=== PATIENT | female | born 1985 | race Caucasian/White ===

== ENCOUNTER 2025-01-17 14:31 | Outpatient (OUT) | payer OTHER, SELFPAY ==
--- NOTE | 2025-01-17 14:39 | US_ITS ---
The [address] [address] Patient Name: TIN POST MRN: [id number] date: 1985 Sex: F Assigned Patient Location: Current Patient Location: US Accession/Order Number: [id number] Exam Date: 01/17/2025 15:54 Report Date: 01/17/2025 16:09 At the request of: LEONEL RODRIGUEZ APRN, CNM Procedure: US OB transvaginal OB ultrasound. Reason for exam:Missed . Comparison:None. Technique: Transvaginal imaging of the gravid uterus was obtained. Findings: There appears to be a gestational sac seen within the endometrial canal measuring 6 weeks 6 days by MSD. There appears to be echogenic products within the presumed gestational sac without definitive pole or heart rate noted. No free fluid is noted. Right ovary measures 4.8 x 3.6 x 2.8 cm. The left ovary measures 6.0 x 3.5 x 3.0 cm. There appears to the carpals luteum cyst involving both ovaries. US/US OB transvaginal Impression: There appears to be a gestational sac within the endometrial canal measuring 6 weeks 6 days by anesthesia with echogenic products present without definitive pole or heart rate noted. Finding may relate to the history. Correlation with beta hCG trend and repeat ultrasound may be necessary to confirm viability. Impression dictated by: Jose A Orona Jr., D.O. 01/17/2025 4:09 PM Dictation Location: [place] [address] Electronically authenticated by: [id number] Y Date: 01/17/2025 16:09
== END 2025-01-17 14:32 | disposition home or self-care (01) ==
LOC: US 14:34
PROVIDERS: PCP Family Medicine; Visit Provider Midwife
DX: O02.1 Missed abortion (principal)
CPT/HCPCS: 76817

== ENCOUNTER 2025-01-23 14:30 | Outpatient (OUT) | payer OTHER, SELFPAY ==
--- NOTE | 2025-01-23 14:42 | US_ITS ---
The [address] [address] Patient Name: TIN POST MRN: [id number] date: 1985 Sex: F Assigned Patient Location: Current Patient Location: US Accession/Order Number: [id number] Exam Date: 01/23/2025 16:08 Report Date: 01/23/2025 16:13 At the request of: LEONEL RODRIGUEZ APRN, CNM Procedure: US OB transvaginal OB ultrasound. Reason for exam:Spontaneous . Comparison:Ultrasound 01/17/2025 Technique: Transvaginal imaging of the uterus and ovaries were obtained. Findings: A gestational sac is noted within the endometrial canal with a potential pole noted measuring 6 weeks 4 days by CRL. No heart rate was identified. CRL measures 7.2 mm. No free fluid is seen. Right ovary measures 3.4 x 2.6 x 2.6 cm with a corpus luteum noted. Left ovary measures 5.1 x 3.7 x 3.2 cm with a involuting corpus luteum/hemorrhagic cyst present. US/US OB transvaginal Impression: A gestational sac is noted within the endometrial canal with potential pole measuring 6 weeks 4 days by CRL, 7.2 mm. No heart rate was identified. Findings are diagnostic of failed early . Correlation with beta-hCG trend is recommended. Impression dictated by: Jose A Orona Jr., D.O. 01/23/2025 4:13 PM Dictation Location: [place] [address] Electronically authenticated by: [id number] Y Date: 01/23/2025 16:13
[2025-01-23 15:58] LABS: HCG Quantitative 6357 mIU/mL
== END 2025-01-23 14:31 | disposition home or self-care (01) ==
LOC: US 14:32
PROVIDERS: PCP Family Medicine; Visit Provider Midwife
DX: O03.9 Complete or unspecified spontaneous abortion without complication (principal)
CPT/HCPCS: 36415; 76817; 84702

== ENCOUNTER 2025-01-24 06:23 | Day surgery (SDC) | payer OTHER, SELFPAY ==
[2025-01-24] VITALS (16 sets, daily range): BP systolic 117–147; BP diastolic 70–98; PULSE 66–84; TEMP 35.8–36.1; O2SAT 91–96; BMI 44.8; BMI 6289.9
--- OUTSIDE RECORDS SUMMARY | 2025-01-24 06:27 | XMS_ITS | CCD ---
Author Organization [facility] Care Team Providers Care Job Lithographer Name Role Phone AMMY, DR HERNANDEZ Primary Care Unavailable MISC, DR MCCLELLAN Admitting Unavailable MISC, DR MCCLELLAN Attending Unavailable MISC, DR MCCLELLAN Consulting Unavailable DEFRANCE, DR HERNANDEZ Primary Care Unavailable ZURDO, DR KEVON Jeter Attending Unavailable ZURDO, DR KEVON Jeter Consulting Unavailable ZURDO, DR KEVON Jeter Admitting Unavailable KOURTNEY, SAMEER Consulting Unavailable MISC, DR MCCLELLAN Primary Care Unavailable MISC, DR MCCLELLAN Admitting Unavailable MISC, DR MCCLELLAN Attending Unavailable MISC, DR MCCLELLAN Consulting Unavailable MISC, DR MCCLELLAN Primary Care Unavailable MISC, DR MCCLELLAN Admitting Unavailable MISC, DR MCCLELLAN Attending Unavailable MISC, DR MCCLELLAN Consulting Unavailable MISC, DR MCCLELLAN Primary Care Unavailable SATURNINO VALDEZ Admitting Unavailable SATURNINO VALDEZ Attending Unavailable SATURNINO VALDEZ Consulting Unavailable Saturnino Valdez Unavailable Saturnino Valdez Unavailable Saturnino Valdez Unavailable Saturnino Valdez Unavailable MD David Mckeon Primary Care Provider DO Charly Matute Emergency Provider David Mckeon Primary Care Unavailable Charly Matute Attending Unavailable Charly Matute Admitting Unavailable David Mckeon MD Primary Care Provider DMITRY MENCHACA Attending UnavailKOBI Hough Attending Unavailable DMITRY MENCHACA Attending UnavailDMITRY Beltran Admitting UnavailKOBI Hough Attending Unavailable DMITRY MENCHACA Attending UnavailDavid Barros MD Primary Care Provider [phone] MICHEL JOSEPH Referring Unavailable DAVID MCKEON Primary Care Unavailable DEFRANCE, DAVID Herbert Referring Unavailable DEFRANCE, DAVID Herbert Primary Care Unavailable MILLIE ELLIS Referring Unavailable DEFRANCE, DAVID Herbert Primary Care Unavailable VEE ESQUIVEL Attending Unavailable DEFRANCE, DAVID Herbert Referring Unavailable DEFRANCE, DAVID Herbert Primary Care Unavailable DEFRANCE, DAVID Herbert Attending Unavailable DEFRANCE, DAVID Herbert Referring Unavailable DEFRANCE, DAVID Herbert Primary Care Unavailable DEFRANCE, DAVID Herbert Attending Unavailable DEFRANCE, DAVID Herbert Referring Unavailable DEFRANCE, DAVID Herbert Primary Care Unavailable DEFRANCE, DAVID Herbert Attending Unavailable DEFRANCE, DAVID Herbert Referring Unavailable DEFRANCE, DAVID Herbert Primary Care Unavailable RHONDA, MILLIE M Attending Unavailable DEFRANCE, DAVID Herbert Referring Unavailable DEFRANCE, DAVID Herbert Primary Care Unavailable ABIDA DUCKWORTH Attending Unavailable DEFRANCE, DAVID Herbert Referring Unavailable DEFRANCE, DAVID Herbert Primary Care Unavailable Defrance David REGALADO Primary Care Provider MINDZORA, MIGUEL Referring Unavailable MICHEL JOSEPH Referring Unavailable MICHEL JOSEPH Referring Unavailable MICHEL JOSEPH Referring Unavailable MICHEL JOSEPH Referring Unavailable MINDZORA, MIGUEL Referring Unavailable MINDZORA, MIGUEL Referring Unavailable MINDZORA, MIGUEL Referring Unavailable MINDZORA, MIGUEL Referring Unavailable MICHEL JOSEPH Referring Unavailable REHMER, ODALIS Referring Unavailable MICHEL JOSEPH Referring Unavailable MICHEL JOSEPH Referring Unavailable MICHEL JOSEPH Referring Unavailable MICHEL JOSEPH Referring Unavailable ATTARAN, RADHA Referring Unavailable ATTARAN, RADHA Referring Unavailable DUDZIAK, LEONEL Referring Unavailable MINDZORA, MIGUEL Referring Unavailable DUDZIAK, LEONEL Referring Unavailable MINDZORA, MIGUEL Referring Unavailable MICHEL JOSEPH Referring Unavailable MINDZORA, MIGUEL Referring Unavailable MINDZORA, MIGUEL Referring Unavailable MINDZORA, MIGUEL Referring Unavailable JOSEPH MICHEL Referring Unavailable DUDZIAK, LEONEL Referring Unavailable MINDZORA, MIGUEL Referring Unavailable REHMER, ODALIS Attending Unavailable SHIRLEY JOSEPHTT Referring Unavailable DUDZIAK, LEONEL Referring Unavailable SHIRLEY JOSEPHTT Referring Unavailable MICHEL JOSEPH Attending Unavailable MICHEL JOSEPH Attending Unavailable MINDZORA, MIGUEL Referring Unavailable BRZOZOPEPE HOUSTON Attending Unavailable DUDZIAK, LEONEL Referring Unavailable MINDZORA, MIGUEL Referring Unavailable JOSEPH, MICHEL Referring Unavailable JOSEPH, MICHEL Attending Unavailable JOSEPH, MICHEL Referring Unavailable MINDZORA, MIGUEL Attending Unavailable SMOLEN, KOBI Referring Unavailable SMOLEN, KOBI Referring Unavailable REHMER, ODALIS Attending Unavailable MINDZORA, MIGUEL Referring Unavailable REHMER, ODALIS Attending Unavailable MINDZORA, MIGUEL Referring Unavailable JOSEPH, MICHEL Attending Unavailable MINDZORA, MIGUEL Referring Unavailable ATTARAN, RADHA Attending Unavailable MINDZORA, MIGUEL Referring Unavailable ATTARAN, RADHA Attending Unavailable JOSEPH, MICHEL Referring Unavailable JOSEPH, MICHEL Referring Unavailable JOSEPH, MICHEL Referring Unavailable JOSEPH, MICHEL Referring Unavailable ATTARAN, RADHA Attending Unavailable MINDZORA, MIGUEL Referring Unavailable OMARI, TIFFANY Attending Unavailable JOSEPH, MICHEL Referring Unavailable REHMER, ODALIS Attending Unavailable JOSEPH, MICHEL Referring Unavailable JOSEPH, MICHEL Attending Unavailable JOSEPH, MICHEL Referring Unavailable SMOLEN, KOBI Attending Unavailable SMOLEN, KOBI Referring Unavailable SMOLEN, KOBI Referring Unavailable JOSEPH, MICHEL Referring Unavailable DUDZIAK, LEONEL Referring Unavailable BRZOZOWSKI, PEPE Referring Unavailable BRZOZOWSKI, PEPE Attending Unavailable JOSEPH, MICHEL Attending Unavailable SELF Referring Unavailable JOSEPH, MICHEL Referring Unavailable FLORO, LEONEL L Attending Unavailable Allergies Allergy Classification Reported Allergen(s) Allergy Type Date of Onset Reaction(s) Facility Penicillins (antibiotic) (4 sources) Amoxicillin Drug Allergy 10-15-[address] [facility] Work Phone: (6 sources) Amoxicillin; Translations: [AMOXICILLIN] Drug Allergy 12-29-2013 [facility] Repository (18 sources) Penicillins; Translations: [PENICILLINS] Drug allergy (disorder) 12-29-2013 [facility] Repository (1 source) Penicillins Drug Allergy 10-15-[address] [facility] (20 sources) Penicillins Drug Allergy 08-27-[address] [facility] (20 sources) Amoxicillin Drug Allergy 05-15-[address] [facility] (1 source) Penicillins Drug allergy (disorder) 09-30-2023 [facility] Repository (6 sources) Penicillin G Drug Allergy 10-16-2023 [facility] (6 sources) Penicillins Drug Allergy 10-15-2020 [facility] Medications Current Medications Medication Drug Class(es) Dates Sig (Normalized) Sig (Original) alpha-tocopherol acetate 30 unt / ascorbic acid 100 mg / beta carotene 1000 unt / calcium carbonate 200 mg / calcium pantothenate 7 mg / cholecalciferol 400 unt / docusate sodium 25 mg / ferrous fumarate 29 mg / folic acid 1 mg / niacinamide 15 mg / pyridoxine hydrochloride 20 mg / riboflavin 3 mg / thiamine 3 mg / vitamin b12 0.012 mg / zinc oxide 20 mg oral tablet (2 sources) Vitamin B12, Vitamin D, Vitamin C End: 07-06-2024 PNV 119-iron fum-folic acid ( 19) 29 mg iron- 1 mg tablet Take by mouth. 07/06/2024 Discontinued (Alternate therapy) azithromycin 250 mg oral tablet (1 source) Macrolide Antimicrobial Start: 07-06-2024 End: 07-11-2024 azithromycin (ZITHROMAX) 250 mg tablet Take 2 tablets the first day, then 1 tablet daily for 4 days. 6 tablet 07/06/2024 07/11/2024 Active 12 hr buPROPion hydrochloride 150 mg extended release oral tablet (20 sources) Aminoketone Start: 11-27-2022 End: 11-04-2023 take 1 tablet by mouth every twelve hours in the morning, then take 1 tablet by mouth at bedtime buPROPion SR (WELLBUTRIN SR) 150 mg 12 hr tablet Take 1 tablet (150 mg total) by mouth in the morning and 1 tablet (150 mg total) before bedtime. 180 tablet 1 11/27/2022 11/04/2023 Discontinued End: 12-12-2024 take 150 mg by mouth once daily bupropion HCl (BUPROBAN ORAL) Take 150 mg by mouth once daily. 12/12/2024 Discontinued (Course of therapy completed) bupropion HCl (B UPROBAN ORAL) Take by mouth. 0 Active Comment on above: Take by mouth. Take 150 mg by mouth once daily. cephalexin 500 mg oral capsule (6 sources) Cephalosporin Antibacterial Start: 5 End: take 2 capsules by mouth in the morning, then take 2 capsules by mouth at bedtime CEPHalexin (KEFLEX) 500 mg capsule Take 2 capsules (1,000 mg total) by mouth in the morning and 2 capsules (1,000 mg total) before bedtime. Do all this for 10 days. 40 capsule 11/08/2024 11/18/2024 Active Start: 10-01-2023 End: 11-25-2024 take 1 tablet by mouth four times daily Cephalexin 250 mg tablet Discontinued 250 MG PO Four times daily 10 04October 01, 2023 1:00am November 25, 2024 4:55pm End: 12-06-2024 take 1 capsule by mouth in the morning, then take 1 capsule by mouth at bedtime CEPHalexin (KEFLEX) 500 mg capsule Take 1 capsule (500 mg total) by mouth in the morning and 1 capsule (500 mg total) before bedtime. 12/06/2024 Discontinued (Therapy completed) cetirizine hydrochloride 10 mg oral tablet (2 sources) Histamine-1 Receptor Antagonist Start: 10-17-2019 End: 11-04-2023 take 1 tablet by mouth once daily cetirizine (ZyrTEC) 10 mg tablet Take 1 tablet (10 mg total) by mouth daily. 30 tablet 2 10/17/2019 11/04/2023 Discontinued chorionic gonadotropin 34223 unt/ml injectable solution (20 sources) Gonadotropin Start: 11-14-2024 chorionic gonadotropin (PREGNYL) 10,000 unit solr Indications: Female infertility 10,000 Units once daily. 10,000 Units as directed. Inject 10,000 units for HCG trigger 1 Each 1 11/14/2024 Active Start: 03-09-2024 End: 11-11-2024 chorionic gonadotropin (PREG NYL) 10,000 unit solr Indications: Female infertility 10,000 Units once daily. 10,000 Units as directed. Inject 10,000 units for HCG trigger 1 Each 1 09/09/2024 11/11/2024 Discontinued Start: 10-27-2022 End: 10-27-2022 Choriogonadotropin Ila,HumR ec (OVIDREL) 250 mcg/0.5 mL syrg Indications: Disorder of ovulation Inject 250 mcg subcutaneously one time only for 1 dose. 0.5 mL 3 10/27/2022 10/27/2022 Active Comment on above: Inject 250 mcg subcu taneously one time only for 1 dose. Cinnamon Bark (2 sources) End: 11-04-2023 cinnamon bark (CINNAMON ORAL) Take by mouth daily. 0 11/04/2023 Discontinued (Alternate therapy) cinnamon bark (C INNAMON ORAL) Take by mouth daily. 0 Active dexamethasone 0.5 mg oral tablet (20 sources) Corticosteroid Start: 12-02-2023 End: 12-12-2024 take 1 tablet by mouth once daily dexAMETHasone (DECADRON) 0.5 mg tablet Take 1 tablet by mouth once daily. 30 tablet 3 06/10/2024 Active Start: 10-17-2020 End: 11-04-2023 take 1 tablet by mouth once daily dexAMETHasone (DECADRON) 0.5 mg tablet Take 1 tablet by mouth once daily. 30 tablet 3 07/16/2023 Active Comment on above: Take 1 tablet by august th daily with breakfast. Take 1 tablet by august th once daily. ergocalciferol 1.25 mg oral capsule (2 sources) Provitamin D2 Compound Start: 2022 End: 2023 take 1 capsule by mouth every week ergocalciferol (DRISDOL) 1,250 mcg (50,000 unit) capsule Take 1 capsule by mouth once a week 12 capsule 0 08/10/2023 11/04/2023 Discontinued (Alternate therapy) Ethinyl Estradiol / ethynodiol (20 sources) Progestin, Estrogen Start: 2023 take 1 tablet by mouth once, then take 1 tablet by mouth once daily at bedtime ethynodiol diacetate-ethinyl estradiol 1 mg-35 mcg (ZOVIA 1/35E, 28,) 1-35 mg-mcg per tablet Start day 1 of full flow period. Take 1 pill by mouth daily at bedtime, active pills only. Skip or throw out placebo week. 28 tablet 1 03/23/2024 Active Ethinyl Estradiol / Ferrous fumarate / Norethindrone (20 sources) Estrogen Start: 2023 take 1 tablet by mouth once daily Norethin Misael-Eth Estrad-FE (MICROGESTIN FE) 1.5 mg-30 mcg (21)/75 mg (7) tablet Indications: Irregular menses Take 1 tablet by mouth once daily. 28 tablet 1 04/15/2024 Active 0.5 ml follitropin ila 600 unt/ml pen injector (20 sources) Start: 2023 inject 75 [IU] by subcutaneous injection once daily Follitropin Ila (GONAL-F RFF REDI-JECT) 300/0.5 unit/mL pnij Inject 75 Units subcutaneously once daily. 1 Each 3 12/02/2023 Active Comment on above: Inject 75 Units subc utaneously once daily. 0.36 ml follitropin beta 833 unt/ml cartridge (20 sources) Start: 2023 End: 2023 inject 200 [IU] by subcutaneous injection once daily Follitropin Beta (FOLLISTIM AQ) 300 unit/0.36 mL Inject 200 Units subcutaneously once daily 2 Each 4 08/08/2024 Active Start: 07-16-2023 inject 75 [IU] by addison bcutaneous injection once daily Follitropin Beta (FOLLISTIM AQ) 300 unit/0.36 mL Inject 75 Units subcutaneously once daily. 2 Each 3 07/16/2023 Active Start: 03-09-2023 End: 05-28-2023 inject 75 [IU] by subcutaneous injection once daily Follitropin Beta (FOLLISTIM AQ) 300 unit/0.36 mL Inject 75 Units subcutaneously once daily. 2 Each 3 03/09/2023 05/28/2023 Discontinued (Course of therapy completed) Comment on above: Inject 75 Units subc utaneously once daily. Inject 50-75 Units s ubcutaneously once daily. letrozole 2.5 mg oral tablet (20 sources) Aromatase Inhibitor Start: take 4 tablets by mouth once daily letrozole (FEMARA) 2.5 mg tablet Take 4 tablets by mouth once daily. 20 tablet 5 11/14/2024 Active Start: 12-02-2023 End: 11-11-2024 take 4 tablets by mouth once daily letrozole (FEMARA) 2.5 mg tablet Take 4 tablets by mouth once daily. 20 tablet 5 12/02/2023 11/11/2024 Discontinued Start: 07-16-2023 letrozole (FEM ADI) 2.5 mg tablet Take 4 tablets by mouth once daily. On cycle days 3-7 20 tablet 3 07/16/2023 Active Start: 12-25-2021 End: 05-28-2023 letrozole (FEMARA) 2.5 mg ta blet Take 4 tablets by mouth once daily. On cycle days 3-7 20 tablet 3 09/30/2022 05/28/2023 Discontinued (Course of therapy completed) Start: 03-21-2021 End: 11-04-2023 take 3 tablets by mouth once daily letrozole (FEMARA) 2.5 mg chemo tablet Take 3 tablets by mouth daily cycle 0 03/21/2021 11/04/2023 Discontinued (Alternate therapy) Comment on above: Take 3 tablets by mo ut once daily. Take 4 tablets by mo ut once daily. Take 4 tablets by mo uth once daily. On cycle days 3-7 metFORMIN hydrochloride 500 mg oral tablet (20 sources) Biguanide Start: End: take 1 tablet by mouth in the morning metFORMIN (Glucophage) 500 MG tablet Take 500 mg by mouth in the morning and 500 mg in the evening. 10/06/2024 Active Start: 10-06-2024 take 1 tablet by august once daily Metformin 500 mg tablet Active 500 MG PO Daily November 25, 2024 12:00am Start: 06-10-2024 End: 09-08-2024 take 1 tablet by mouth twice daily metFORMIN (GLUCOPHAGE) 500 mg tablet Take 1 tablet by mouth two times a day. 180 tablet 06/10/2024 Active Start: 11-12-2021 End: 12-16-2024 take 1 tablet by mouth twice daily at mealtime metFORMIN (GLUCOPHAGE) 850 mg tablet Indications: Insulin resistance Take 1 tablet by mouth twice daily with meals. 60 tablet 3 05/12/2023 12/16/2024 Discontinued (Course of therapy completed) Start: 11-26-2020 End: 11-04-2023 take 2 tablets by mouth in the morning metFORMIN (GLUCOPHAGE) 850 mg tablet Take 2 tablets (1,700 mg total) by mouth in the morning. 0 11/26/2020 11/04/2023 Discontinued (Alternate therapy) Start: 05-15-2009 End: 08-11-2023 METFORMIN 500 MG TAB Take on e(1) tablet two(2) times daily. 30 days 12 05/15/2009 08/11/2023 Discontinued (Course of therapy completed) End: 07-06-2024 take 1 tablet by mouth in the morning, then take 1 tablet by mouth at mealtime metFORMIN (GLUCOPHAGE) 1000 mg tablet Take 1 tablet (1,000 mg total) by mouth in the morning and 1 tablet (1,000 mg total) in the evening. Take with meals. 07/06/2024 Discontinued (Alternate therapy) Comment on above: Take 1 tablet by august th twice daily with meals. TAKE ONE TABLET BY M OUTH TWICE A DAY WITH MEALS TAKE 1 TABLET BY AUGUST TH TWICE DAILY WITH MEALS Take one(1) tablet t wo(2) times daily. Take 1 tablet by august th two times a day. NON FORMULARY (4 sources) End: 11-04-2023 NON FORMULARY Berberine daily 0 11/04/2023 Discontinued (Alternate therapy) End: 11-04-2023 NON FORMULARY Inistol /vitex daily 0 11/04/2023 Discontinued NON FORMULARY Be rberine daily 0 Active NON FORMULARY In istol /vitex daily 0 Active omeprazole 20 mg delayed release oral capsule (2 sources) Proton Pump Inhibitor Start: 10-17-2019 End: 11-04-2023 take 1 capsule by mouth once daily omeprazole (PriLOSEC) 20 mg capsule Take 1 capsule (20 mg total) by mouth daily. 30 capsule 1 10/17/2019 11/04/2023 Discontinued (Alternate therapy) PNV no.95/ferrous fum/folic ac ( ORAL) (20 sources) PNV no.95/ferrou s fum/folic ac ( ORAL) Take by mouth. Active PNV no.95/ferrou s fum/folic ac ( ORAL) Take by mouth. 0 Active predniSONE 10 mg oral tablet (1 source) Start: 10-07-2024 End: 10-15-2024 take 6 tablets by mouth once daily, then take 1 tablet by mouth once daily at mealtime predniSONE (STERAPRED DS) 10 mg tablet pack Take by mouth daily for 8 days. 6 tabs qd x 3 d then 1 less each day with food 33 tablet 10/07/2024 10/15/2024 Active MV-Min-Fe Fum-FA-DHA ( 1 PO) (4 sources) MV-Min- Fe Fum-FA-DHA ( 1 PO) Take by mouth Active progesterone 200 mg oral capsule (16 sources) Progesterone Start: 03-14-2025 take 1 capsule by mouth once daily Progesterone Micronized 200 mg capsule Active 200 MG PO Daily November 25, 2024 12:00am Start: 11-24-2024 progesterone m icronized (PROMETRIUM) 200 mg capsule Use 1 capsule vaginally daily at bedtime. Starts 3 days after trigger and stop if no test 20 days after trigger 30 capsule 2 11/24/2024 Active spironolactone 25 mg oral tablet (20 sources) Aldosterone Antagonist Start: 07-13-2023 End: 12-12-2024 take 1 tablet by mouth in the morning spironolactone (ALDACTONE) 25 mg tablet TAKE 1 TABLET BY MOUTH IN THE MORNING 90 tablet 1 07/13/2023 Active Comment on above: Take 25 mg by mouth once daily. Take 25 mg by mouth once daily. On hold for tiZANidine 4 mg oral tablet (6 sources) Central alpha-2 Adrenergic Agonist Start: 11-25-2024 take 1 tablet by mouth once daily at bedtime Tizanidine 4 mg tablet Active 4 MG PO Daily at bedtime November 25, 2024 12:00am Start: 10-07-2024 take 1 tablet by august th every eight hours as needed tiZANidine (ZANAFLEX) 4 mg tablet Take 1 tablet (4 mg total) by mouth every 8 (eight) hours as needed for muscle spasms. 60 tablet 1 10/07/2024 Active triamcinolone acetonide 1 mg/ml topical cream (2 sources) Corticosteroid Start: 07-25-2021 End: 11-04-2023 triamcinolone (KENALOG) 0.1 % cream Apply 1 application topically 2 (two) times a day. 45 g 5 07/25/2021 11/04/2023 Discontinued (Alternate therapy) Zinc (2 sources) End: 11-04-2023 ZINC ORAL Take by mouth. 0 11/04/2023 Discontinued (Alternate therapy) ZINC ORAL Take b y mouth. 0 Active Completed/Discontinued Medications Medication Drug Class(es) Dates Sig (Normalized) Sig (Original) clomiPHENE citrate 50 mg oral tablet (20 sources) Estrogen Agonist/Antagonis t Start: 02-18-2023 End: 05-28-2023 clomiPHENe (SEROPHENE) 50 mg tablet Indications: Anovulation Take 4 tablets. Start CYCLE DAY 3. End CYCLE DAY 7. 20 tablet 3 02/18/2023 05/28/2023 Discontinued (Course of therapy completed) Start: 01-24-2021 clomiPHENe (SE ROPHENE) 50 mg tablet Indications: Anovulation Take 4 tablets. Start CYCLE DAY 3. End CYCLE DAY 7. 20 tablet 3 01/24/2021 Active Comment on above: Take 4 tablets. Star t CYCLE DAY 3. End CYCLE DAY 7. Ethinyl Estradiol / norgestimate (1 source) Progestin, Estrogen Start: 2008 End: 2022 norgestimate-ethinyl estradiol(ORTHO TRI-CYCLEN LO 0.18/0.215/0.25 MG-25 MCG TAB) Take one(1) tablet daily. 0 05/15/2009 08/11/2023 Discontinued (Course of therapy completed) Comment on above: Take one(1) tablet d letty. medroxyPROGESTERone acetate 10 mg oral tablet (20 sources) Progestin Start: 2023 End: 2024 take 1 tablet by mouth twice daily medroxyPROGESTERone (PROVERA) 10 mg tablet Take 1 tablet by mouth two times a day. 14 tablet 02/23/2024 12/16/2024 Discontinued () Start: 12-02-2023 End: 02-23-2024 take 1 tablet by mouth once daily medroxyPROGESTERone (PROVERA) 10 mg tablet Take 1 tablet by mouth once daily. 10 tablet 3 12/02/2023 02/23/2024 Discontinued Start: 07-25-2022 End: 05-28-2023 take 1 tablet by mouth once daily medroxyPROGESTERone (PROVERA) 10 mg tablet Take 1 tablet by mouth once daily. 10 tablet 3 03/09/2023 Active Start: 10-15-2020 End: 11-04-2023 take 1 tablet by mouth in the morning medroxyPROGESTERone (PROVERA) 10 mg tablet Take 1 tablet (10 mg total) by mouth in the morning. 0 10/15/2020 11/04/2023 Discontinued (Alternate therapy) Start: 10-15-2020 take 1 tablet by august th once daily medroxyPROGESTERone (PROVERA) 10 mg tablet Take 1 tablet by mouth once daily. 10 tablet 3 03/21/2021 Active Comment on above: Take 1 tablet by august th once daily. Sharps Container-Ins Syrng-Ndl 0.3 mL 30 x 1/2 syrg (2 sources) Start: 08-08-2024 End: 08-08-2024 Sharps Container-Ins Syrng-Ndl 0.3 mL 30 x 1/2 syrg 1 Container one time only for 1 dose. HCG trigger. Pregynl #1 w/ syringes and needles 1 Each 1 08/08/2024 08/08/2024 Start: 03-09-2024 End: 03-09-2024 Sharps Container-Ins Syrng-N dl 0.3 mL 30 x 1/2 syrg 1 Container one time only for 1 dose. HCG trigger. Pregynl #1 w/ syringes and needles 1 Each 0 03/09/2024 03/09/2024 Problems Active Problems Problem Classification Problem Date Documented Date Episodic/Chronic Abdominal pain (6 sources) Unspecified abdominal pain; Translations: [Flank pain] Onset: 03-22-2021 Episodic Administrative/socia l admission (6 sources) Treatment plan given; Translations: [Counseling, unspecified] Episodic Allergic reactions (2 sources) Allergy to penicillin; Translations: [Allergy status to penicillin] 07-30-2023 Episodic Contraceptive and procreative management (20 sources) Encounter for fertility testing; Translations: [Patient encounter status] Onset: 03-06-2021 Episodic Disorders of lipid metabolism (3 sources) Hypertriglyceridemia; Translations: [Pure hyperglyceridemia] Onset: 11-08-2024 11-20-2023 Chronic Essential hypertension (20 sources) Hypertensive disorder; Translations: [Essential (primary) hypertension] Onset: 10-16-2021 10-30-2023 Chronic Female infertility (20 sources) Female infertility; Translations: [Female infertility, unspecified] Onset: 02-18-2023 Chronic Immunizations and screening for infectious disease (2 sources) Encounter for screening for human papillomavirus (HPV); Translations: [Exposure to sexually transmissible disorder] Onset: 10-09-2020 01-21-2024 Episodic Menstrual disorders (12 sources) Irregular menstruation, unspecified; Translations: [Amenorrhea, unspecified] Onset: 01-15-2021 Chronic Other complications of (2 sources) Bacteriuria; Translations: [Bacteriuria during ] 10-01-2023 Episodic Other complications of (1 source) Patient encounter status; Translations: [ with inconclusive viability, fetus 1] 10-22-2023 Episodic Other complications of (1 source) Non-viable ; Translations: [Other abnormal products of conception] 10-23-2023 Episodic Other complications of (1 source) Missed ; Translations: [Missed ] Onset: 10-30-2023 Episodic Other complications of (1 source) with inconclusive viability, not applicable or unspecified; Translations: [ with inconclusive viability, single or unspecified fetus (HCC)] Onset: 01-09-2025 Episodic Other endocrine disorders (4 sources) Polycystic ovarian syndrome; Translations: [POLYCYSTIC OVARIAN SYNDROME] Onset: 03-26-2021 Chronic Other endocrine disorders (5 sources) Polycystic ovary syndrome; Translations: [Polycystic ovarian syndrome] 01-21-2024 Chronic Other endocrine disorders (1 source) Increased androgen level; 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] 02-23-2024 Chronic Other female genital disorders (2 sources) Disorder of endocrine ovary; Translations: [Noninflammatory disorder of ovary, fallopian tube and broad ligament, unspecified] Episodic Other female genital disorders (1 source) Polyp of corpus uteri; Translations: [Polyp of corpus uteri] 05-13-2024 Episodic Other nutritional; endocrine; and metabolic disorders (3 sources) Insulin resistance; Translations: [Metabolic syndrome] Chronic Other nutritional; endocrine; and metabolic disorders (20 sources) Severe obesity; Translations: [Morbid (severe) obesity due to excess calories] Onset: 10-30-2023 10-30-2023 Chronic Other nutritional; endocrine; and metabolic disorders (1 source) Metabolic syndrome; Translations: [Insulin resistance] Onset: 02-18-2023 Chronic Other nutritional; endocrine; and metabolic disorders (1 source) Body mass index 40+ - severely obese; Translations: [Morbid (severe) obesity due to excess calories] 03-02-2024 Chronic Other and delivery including normal (9 sources) Normal ; Translations: [Encounter for supervision of normal first , first trimester] Onset: 12-12-2024 10-16-2023 Episodic Other screening for suspected conditions (not mental disorders or infectious disease) (6 sources) Encounter for screening for malignant neoplasm of cervix; Translations: [ test negative] Onset: 10-04-2020 Episodic Other skin disorders (4 sources) Epidermoid cyst; Translations: [Epidermal cyst] 11-08-2024 Episodic Other skin disorders (1 source) Epidermal cyst; Translations: [Epidermal cyst] Onset: 11-08-2024 Episodic Other upper respiratory disease (1 source) Allergic rhinitis due to pollen; Translations: [Allergic rhinitis due to pollen] 08-12-2023 Chronic Other upper respiratory disease (1 source) Nasal mucosa dry; Translations: [Other specified disorders of nose and nasal sinuses] 08-12-2023 Episodic Residual codes; unclassified (1 source) Obstructive sleep apnea syndrome; Translations: [Obstructive sleep apnea (adult) (pediatric)] 03-02-2024 Chronic Residual codes; unclassified (1 source) Sleep apnea Onset: 03-02-2024 Chronic Residual codes; unclassified (1 source) Postoperative state; Translations: [Other specified postprocedural states] 11-13-2023 Episodic Residual codes; unclassified (1 source) Infertile 11-25-2024 Episodic Sexually transmitted infections (not HIV or hepatitis) (1 source) Human papillomavirus deoxyribonucleic acid test positive, high risk on cervical specimen; Translations: [Cervical high risk human papillomavirus (HPV) DNA test positive] 03-08-2024 Episodic Spondylosis; intervertebral disc disorders; other back problems (2 sources) Low back pain; Translations: [Midline low back pain without sciatica, unspecified chronicity] Onset: 10-07-2024 10-07-2024 Episodic Spontaneous (2 sources) Miscarriage; Translations: [Complete or unspecified spontaneous without complication] 11-06-2023 Episodic Substance-related disorders (1 source) Nicotine dependence, cigarettes, uncomplicated; Translations: [NICOTINE DEPEND CIGARETTES UNCOMP] Onset: 03-26-2021 Chronic Unclassified (5 sources) No additional problems on file Unclassified (1 source) Insulin resistance; Translations: [Insulin resistance] Onset: 12-02-2023 Unclassified (1 source) Cyst Onset: 11-22-2024 Unclassified (1 source) Annual Exam Onset: 11-08-2024 Unclassified (1 source) Low back pain, unspecified; Translations: [Low back pain, unspecified] Onset: 10-07-2024 Unclassified (1 source) OB Reminders Onset: 10-16-2023 10-16-2023 Past or Other Problems Problem Classification Problem Date Documented Date Episodic/Chronic Calculus of urinary tract (1 source) Personal history of urinary calculi; Translations: [PERSONAL HISTORY OF URINARY CALCULI] Onset: 03-26-2021 Episodic Headache; including migraine (1 source) Headache Onset: 07-06-2024 Episodic Mood disorders (12 sources) Mood disorders Onset: 10-07-2024 Resolved: 11-08-2024 10-07-2024 Other complications of (20 sources) Missed miscarriage; Translations: [Missed ] Onset: 10-30-2023 Episodic Other diseases of kidney and ureters (1 source) Hydronephrosis with renal and ureteral calculous obstruction; Translations: [HYDRONPHROS RENL AND URETRL CALCUL OBST] Onset: 03-26-2021 Episodic Other lower respiratory disease (1 source) Cough Onset: 07-06-2024 Episodic Other upper respiratory disease (1 source) Pain in throat Onset: 07-06-2024 Episodic Other upper respiratory infections (2 sources) Acute sinusitis; Translations: [Other acute sinusitis] Onset: 07-06-2024 07-06-2024 Episodic Residual codes; unclassified (1 source) Unable to comply with treatment; Translations: [Noncompliance with CPAP treatment] 03-02-2024 Episodic Unclassified (12 sources) Onset: 10-31-2019 10-31-2019 Unclassified (1 source) Patient encounter status 11-14-2024 Urinary tract infections (1 source) Urinary tract infection, site not specified; Translations: [UTI SITE NOT SPECIFIED] Onset: 03-26-2021 Episodic Results Test Name Value Interpretation Reference Range Facility [facility] PREG QUANT HCGon 025 HCG QUANTITATIVE 6357 mIU/mL [facility] Comment on above: 5-50 0.2-1 WEEK 50-500 1-2 WEEKS 100-5,000 2-3 WEEKS 500-10,000 3-4 WEEKS 1,000-50,000 4-5 WEEKS 10,000-100,000 5-6 WEEKS 15,000-200,000 6-8 WEEKS 10,000-100,000 2-3 MONTHS [facility] US OB TRANSVAGINALon 025 [place] [address] Ultrasound Report Signed Patient: TIN ARIZMENDI MR#: [id number] : 1985 Acct:[id number] Age/Sex: 39 / F ADM Date: 01/23/25 Loc: US Attending Dr: LEONEL SALES APRN, CNM Ordering Physician: LEONEL SALES APRN, CNM Date of Service: 01/23/25 Procedure(s): US OB transvaginal Accession Number(s): [id number] cc: DAVID MCKEON ; LEONEL SALES APRN, CNM [place] [id number] Patient Name: TIN ARIZMENDI MRN: [id number] date: 1985 Sex: F Assigned Patient Location: US Current Patient Location: US Accession/Order Number: [id number] Exam Date: 01/23/2025 16:08 Report Date: 01/23/2025 16:13 At the request of: LEONEL SALES APRN, CNM Procedure: US OB transvaginal OB ultrasound. Reason for exam:Spontaneous . Comparison:Ultrasound 01/17/2025 Technique: Transvaginal imaging of the uterus and ovaries were obtained. Findings: A gestational sac is noted within the endometrial canal with a potential pole noted measuring 6 weeks 4 days by CRL. No heart rate was identified. CRL measures 7.2 mm. No free fluid is seen. Right ovary measures 3.4 x 2.6 x 2.6 cm with a corpus luteum noted. Left ovary measures 5.1 x 3.7 x 3.2 cm with a involuting corpus luteum/hemorrhagic cyst present. US/US OB transvaginal Impression: A gestational sac is noted within the endometrial canal with potential pole measuring 6 weeks 4 days by CRL, 7.2 mm. No heart rate was identified. Findings are diagnostic of failed early . Correlation with beta-hCG trend is recommended. Impression dictated by: Jose A Orona Jr., D.O. 01/23/2025 4:13 PM Dictation Location: [place] [address] Electronically authenticated by: [id number] Y Date: 01/23/2025 16:13 Dictated By: Jose A Orona M.D. Signed By: 01/23/25 1616 DD/ 12 TD/TT: Land Acquisition Analyst: [facility] Radiology, Radiologist, MD - 01/23/2025 [place] [address] Ultrasound Report Signed Patient: TIN ARIZMENDI MR#: [id number] : 1985 Acct:[id number] Age/Sex: 39 / F ADM Date: 01/23/25 Loc: US Attending Dr: LEONEL SALES APRN, CNM Ordering Physician: LEONEL SALES APRN, CNM Date of Service: 01/23/25 Procedure(s): US OB transvaginal Accession Number(s): [id number] cc: DAVID MCKEON ; LEONEL SALES APRN, CNM The [place] [id number] Patient Name: TIN ARIZMENDI MRN: [facility]:[id number] date: 1985 Sex: F Assigned Patient Location: Current Patient Location: US Accession/Order Number: [id number] Exam Date: 01/23/2025 16:08 Report Date: 01/23/2025 16:13 At the request of: LEONEL SALES APRN, CNM Procedure: US OB transvaginal OB ultrasound. Reason for exam:Spontaneous . Comparison:Ultrasound 01/17/2025 Technique: Transvaginal imaging of the uterus and ovaries were obtained. Findings: A gestational sac is noted within the endometrial canal with a potential pole noted measuring 6 weeks 4 days by CRL. No heart rate was identified. CRL measures 7.2 mm. No free fluid is seen. Right ovary measures 3.4 x 2.6 x 2.6 cm with a corpus luteum noted. Left ovary measures 5.1 x 3.7 x 3.2 cm with a involuting corpus luteum/hemorrhagic cyst present. US/US OB transvaginal Impression: A gestational sac is noted within the endometrial canal with potential pole measuring 6 weeks 4 days by CRL, 7.2 mm. No heart rate was identified. Findings are diagnostic of failed early . Correlation with beta-hCG trend is recommended. Impression dictated by: Jose A Orona Jr., D.O. 01/23/2025 4:13 PM Dictation Location: [place] [address] Electronically authenticated by: [id number] Y Date: 01/23/2025 16:13 Dictated By: Jose A Orona M.D. Signed By: 01/23/25 161 DD/ 12 TD/TT: Land Acquisition Analyst: [facility] Radiology Study observation (narrative) [facility] US OB TRANSVAGINALOrdered By : Radiologist Radiology on 01-23-2025 [facility] Work Phone: US OB TRANSVAGINALon 025 [place] [address] Ultrasound Report Signed Patient: TIN ARIZMENDI MR#: [id number] : 1985 Acct:[id number] Age/Sex: 39 / F ADM Date: 01/17/25 Loc: US Attending Dr: LEONEL SALES APRN, CNM Ordering Physician: LEONEL SALES APRN, CNM Date of Service: 01/17/25 Procedure(s): US OB transvaginal Accession Number(s): [id number] cc: DAVID MCKEON ; LEONEL SALES APRN, CNM The [place] [id number] Patient Name: TIN ARIZMENDI MRN: [id number] date: 1985 Sex: F Assigned Patient Location: US Current Patient Location: US Accession/Order Number: [id number] Exam Date: 01/17/2025 15:54 Report Date: 01/17/2025 16:09 At the request of: LEONEL SALES APRN, CNM Procedure: US OB transvaginal OB ultrasound. Reason for exam:Missed . Comparison:None. Technique: Transvaginal imaging of the gravid uterus was obtained. Findings: There appears to be a gestational sac seen within the endometrial canal measuring 6 weeks 6 days by MSD. There appears to be echogenic products within the presumed gestational sac without definitive pole or heart rate noted. No free fluid is noted. Right ovary measures 4.8 x 3.6 x 2.8 cm. The left ovary measures 6.0 x 3.5 x 3.0 cm. There appears to the carpals luteum cyst involving both ovaries. US/US OB transvaginal Impression: There appears to be a gestational sac within the endometrial canal measuring 6 weeks 6 days by anesthesia with echogenic products present without definitive pole or heart rate noted. Finding may relate to the history. Correlation with beta hCG trend and repeat ultrasound may be necessary to confirm viability. Impression dictated by: Jose A Orona Jr., D.O. 01/17/2025 4:09 PM Dictation Location: [place] [address] Electronically authenticated by: [id number] Y Date: 01/17/2025 16:09 Dictated By: Jose A Orona M.D. Signed By: 01/17/25 1612 DD/ 1609 TD/TT: Land Acquisition Analyst: [facility] Radiology, Radiologist, - 01/17/2025 [place] [address] Ultrasound Report Signed Patient: TIN ARIZMENDI MR#: [id number] : 1985 Acct:[id number] Age/Sex: 39 / F ADM Date: 01/17/25 Loc: US Attending Dr: LEONEL SALES APRN, CNM Ordering Physician: LEONEL SALES APRN, CNM Date of Service: 01/17/25 Procedure(s): US OB transvaginal Accession Number(s): [id number] cc: DAVID MCKEON ; LEONEL SALES APRN, CNM The [address] [address] Patient Name: TIN ARIZMENDI MRN: [facility]:[id number] date: 1985 Sex: F Assigned Patient Location: US Current Patient Location: US Accession/Order Number: [id number] Exam Date: 01/17/2025 15:54 Report Date: 01/17/2025 16:09 At the request of: LEONEL SALES APRN, CNM Procedure: US OB transvaginal OB ultrasound. Reason for exam:Missed . Comparison:None. Technique: Transvaginal imaging of the gravid uterus was obtained. Findings: There appears to be a gestational sac seen within the endometrial canal measuring 6 weeks 6 days by MSD. There appears to be echogenic products within the presumed gestational sac without definitive pole or heart rate noted. No free fluid is noted. Right ovary measures 4.8 x 3.6 x 2.8 cm. The left ovary measures 6.0 x 3.5 x 3.0 cm. There appears to the carpals luteum cyst involving both ovaries. US/US OB transvaginal Impression: There appears to be a gestational sac within the endometrial canal measuring 6 weeks 6 days by anesthesia with echogenic products present without definitive pole or heart rate noted. Finding may relate to the history. Correlation with beta hCG trend and repeat ultrasound may be necessary to confirm viability. Impression dictated by: Jose A Orona Jr., D.O. 01/17/2025 4:09 PM Dictation Location: [place] [address] Electronically authenticated by: [id number] Y Date: 01/17/2025 16:09 Dictated By: Jose A Orona M.D. Signed By: 01/17/25 1612 DD/ 1609 TD/TT: Land Acquisition Analyst: [facility] Radiology Study observation (narrative) [facility] US OB TRANSVAGINALOrdered By : Radiologist Radiology on 01-17-2025 [facility] Work Phone: B-HCG SerPl-aCncon 5 [place] [address].0 m[IU]/mL High <5.0 [facility] Comment on above: Order Comment: Speci men Type: BLOOD SPECIMEN Ordering Facility: [facility] Address: [address] [place] [address] [place] [address] Result Comment: BÁRBARA TITATIVE HCG NORMAL RANGES Weeks of Gestation (Weeks Since LMP) 3 Weeks (5.8-71.2 mIU/mL) 4 Weeks (9.5-750 mIU/mL) 5 Weeks (217-7138 mIU/mL) 6 Weeks (158-87195 mIU/mL) 7 Weeks (3697-888338 mIU/mL) 8 Weeks (03391-233111 mIU/mL) 9 Weeks (07668-671347 mIU/mL) 10 Weeks (45044-276790 mIU/mL) 12 Weeks (79350-035704 mIU/mL) Referenced to 4th IS of [facility] Performed By: #### 1 0501-5, 2839-9, 2243-4 #### [facility] CLIA [id number] [facility] [place] [address] [facility] CNNURSEon 01-09-2025 CNNURSE Nurse Visit (REIAV) TIN ARIZMENDI ([id number]) 1985 F Date Time Provider Department 01/09/25 10:40 AM US TECH 1 [facility] REJ REIAV During your visit today, we recorded the following information about you: Miguel Levy APRN.CNP 01/09/2025 4:05 PM Signed Spoke with Tin, Reviewed diagnosis of missed from today's ultrasound. Discussed options for medical, surgical or expectant management. Leaning towards medical management but wants to further review with her prior to making final decisions. Is meeting with her SPUDDER tomorrow, may follow up with care from that office as well. Will call back and let us know how she wishes to proceed. Miguel Levy APRN.INTERNATIONAL FLIGHT ATTENDANT January 09, 2025 4:05 PM Referring Provider: MICHEL JOSEPH [[id number]] Allergies As of Date: 01/09/2025 Noted Allergy Reaction AMOXACILLIN (AMOXICILLIN) 03/09/2023 4 - Hives Comments: Skin test is negative. Challenge pending PENICILLINS 10/15/2020 4 - Hives Date Reviewed: 11/25/2024 Reviewed by: Nilton Zhang RN - Fully Assessed Visit Diagnosis:Encounter for test, result positive ([facility]) [Z32.01] Order(s):OBSTETRIC ULTRASOUND [facility] [[id number]] Order #: [id number]. #:[id number] IEWPOINTQty: 1 Prescriptions as of 01/09/2025 - progesterone micronized (PROMETRIUM) 200 mg capsule Use 1 capsule vaginally daily at bedtime. Starts 3 days after trigger and stop if no test 20 days after trigger - chorionic gonadotropin (PREGNYL) 10,000 unit solr 10,000 Units once daily. 10,000 Units as directed. Inject 10,000 units for HCG trigger - letrozole (FEMARA) 2.5 mg tablet Take 4 tablets by mouth once daily. - metFORMIN (GLUCOPHAGE) 500 mg tablet Take 1 tablet by mouth twice daily - Follitropin Beta (FOLLISTIM AQ) 300 unit/0.36 mL Inject 200 Units subcutaneously once daily - dexAMETHasone (DECADRON) 0.5 mg tablet Take 1 tablet by mouth once daily. - Norethin Misael-Eth Estrad-FE (MICROGESTIN FE) 1.5 mg-30 mcg (21)/75 mg (7) tablet Take 1 tablet by mouth once daily. - ethynodiol diacetate-ethinyl estradiol 1 mg-35 mcg (ZOVIA , ,) 1-35 mg-mcg per tablet Start day 1 of full flow period. Take 1 pill by mouth daily at bedtime, active pills only. Skip or throw out placebo week. - PNV no.95/ferrous fum/folic ac ( ORAL) Take by mouth. - Follitropin Ila (GONAL-F RFF REDI-JECT) 300/0.5 unit/mL pnij Inject 75 Units subcutaneously once daily. Problem List As Of Date 01/09/2025 Noted Resolved High blood pressure [I10] 10/16/2021 Diagnosed: 10/30/2023 Pre-op exam [Z01.818] 10/30/2023 Class 3 severe obesity due to excess calories w*10/30/2023 Missed [O02.1] 10/30/2023 Encounter Status:Closed by MIGUEL LEVY on 01/09/25 Normal [facility] Examination level ultrasound on 01-09-2025 Indication Viability Impression Intrauterine gestational sac with debris filled contents. Yolk scan and pole not visualized on today's scan. Recommendations Consistent with missed given no progression from last scan 10 days prior. Maternal Assessment Height 163 cm Height (ft) 5 ft Height (in) 4 in Weight 113 kg Weight (lb) 250 lb BMI 42.91 kg/m Method Transvaginal ultrasound examination [place] . Number of embryos: 1 Dating Conception on: 11/25/2024 Conception: ovulation drugs GA by conception 8 w + 3 d GULSHAN by conception: 08/18/2025 Assigned: based on the conception date (ovulation drugs), selected on 01/09/2025 Assigned GA 8 w + 3 d Assigned GULSHAN: 08/18/2025 Assessment Gestational sac: visualized GS 2.0 mm -/- <1% Kira Location: intrauterine GS D1 3.1 mm GS D2 1.8 mm GS D3 1.4 mm Maternal Structures Uterus / Cervix Uterus: Visualized Ovaries / Tubes / Adnexa Rt ovary: Visualized Lt ovary: Visualized Performed By: Chary Acevedo; Read By: Odalis Parikh M.D. MATERNAL MEDICINE [facility] Radiology Study observation (narrative) [facility] CNNURSEon 12-30-2024 CNNURSE Nurse Visit (REIBD) TIN ARIZMENDI ([id number]) 1985 F Date Time Provider Department 12/30/24 10:10 AM US TECH 3 [facility] BEAC REIBD During your visit today, we recorded the following information about you: Michel Joseph MD 12/30/2024 1:32 PM Signed I met with the couple in person following their scan to discuss results and next steps. I counseled them that I suspect that this is a non viable given reliable dating (vishal since the 4 corpus lutea match the 4 follicles at time of trigger) and lack of clear pole and yolk sac at 7 weeks gestation. I recommend repeat scan in 11-14 days, though next Thursday is also OK, as they have a planned OB visit on the following Thursday. She will continue progesterone unless she has a full flow period. Precautions and instructions reviewed. I also disclosed that I will be leaving [facility] in February and counseled regarding transferring care to one of my partners. Michel Joseph MD December 30, 2024 1:32 PM Shyla Orr APRN.INTERNATIONAL FLIGHT ATTENDANT 12/30/2024 5:37 PM Signed spoke with Tin Please schedule the patient for the following- Location: [place] Provider: nurse Visit type: scan Reason for visit/appointment notes: scan Date: 01/09 Time (requested): 1040 If slot is full, please schedule the closest open slot. Call to patient needed: no Referring Provider: KOBI WEINER [[id number]] Allergies As of Date: 12/30/2024 Noted Allergy Reaction AMOXACILLIN (AMOXICILLIN) 03/09/2023 4 - Hives Comments: Skin test is negative. Challenge pending PENICILLINS 10/15/2020 4 - Hives Date Reviewed: 11/25/2024 Reviewed by: Nilton Zhang RN - Fully Assessed Visit Diagnosis:Encounter for test, result positive ([facility]) [Z32.01] Order(s):OBSTETRIC ULTRASOUND I [[id number]] Order #: [id number]. #:[id number] IEWPOINTQty: 1 OBSTETRIC ULTRASOUND I [[id number]] Order #: [id number]: 1 FUTURE Prescriptions as of 12/30/2024 - progesterone micronized (PROMETRIUM) 200 mg capsule Use 1 capsule vaginally daily at bedtime. Starts 3 days after trigger and stop if no test 20 days after trigger - chorionic gonadotropin (PREGNYL) 10,000 unit solr 10,000 Units once daily. 10,000 Units as directed. Inject 10,000 units for HCG trigger - letrozole (FEMARA) 2.5 mg tablet Take 4 tablets by mouth once daily. - metFORMIN (GLUCOPHAGE) 500 mg tablet Take 1 tablet by mouth twice daily - Follitropin Beta (FOLLISTIM AQ) 300 unit/0.36 mL Inject 200 Units subcutaneously once daily - dexAMETHasone (DECADRON) 0.5 mg tablet Take 1 tablet by mouth once daily. - Norethin Misael-Eth Estrad-FE (MICROGESTIN FE) 1.5 mg-30 mcg (21)/75 mg (7) tablet Take 1 tablet by mouth once daily. - ethynodiol diacetate-ethinyl estradiol 1 mg-35 mcg (ZOVIA 35E, 28,) 1-35 mg-mcg per tablet Start day 1 of full flow period. Take 1 pill by mouth daily at bedtime, active pills only. Skip or throw out placebo week. - PNV no.95/ferrous fum/folic ac ( ORAL) Take by mouth. - Follitropin Ila (GONAL-F RFF REDI-JECT) 300/0.5 unit/mL pnij Inject 75 Units subcutaneously once daily. Problem List As Of Date 12/30/2024 Noted Resolved High blood pressure [I10] 10/16/2021 Diagnosed: 10/30/2023 Pre-op exam [Z01.818] 10/30/2023 Class 3 severe obesity due to excess calories w*10/30/2023 Missed [O02.1] 10/30/2023 Encounter Status:Closed by MICHEL JOSEPH on 12/30/24 Normal [facility] Examination level ultrasound on 12-30-2024 Indication Viability Impression Intrauterine gestational sac without clear visualization of pole, yolk sac, or cardiac activity Maternal Structures: Right Ovary: Size 54 mm x 37 mm x 29 mm. Cyst(s): 1. Size 22 mm x 19 mm x 14 mm. Corpus luteum 2. Size 27 mm x 22 mm x 22 mm. Corpus luteum Left Ovary: Size 71 mm x 38 mm x 34 mm. Cyst(s): 1. Size 37 mm x 36 mm x 36 mm. Hemorrhagic cyst with reticular pattern/clot 2. Size 19 mm x 26 mm x 20 mm. Corpus luteum Recommendations Recommend follow up viability scan in 11-14 days Maternal Assessment Height 163 cm Height (ft) 5 ft Height (in) 4 in Method Transvaginal ultrasound examination [place] . Number of embryos: 1 Dating Conception on: 11/25/2024 Conception: ovulation drugs GA by conception 7 w + 0 d GULSHAN by conception: 08/18/2025 Assigned: based on the conception date (ovulation drugs), selected on 12/30/2024 Assigned GA 7 w + 0 d Assigned GULSHAN: 08/18/2025 Assessment Gestational sac: visualized Location: intrauterine GS D1 11.6 mm GS D2 9.2 mm GS D3 10.5 mm Yolk sac: uncertain YS 2.1 mm <1% Gr[place] Embryo: not visualized Cardiac activity: absent Maternal Structures Uterus / Cervix Uterus: Visualized Uterus position: axial, anteverted Description of uterine malformations: none Myometrium: normal Uterus length 92 mm Uterus width 55 mm Uterus height 37 mm Uterus Vol 97.3 cm Cervix: Visualized Cervix details: cystic lesions identified suggesting superficial Nabothian cysts Ovaries / Tubes / Adnexa Rt ovary: Visualized Rt ovary morphology: premenopausal polycystic Rt ovary D1 54 mm Rt ovary D2 37 mm Rt ovary D3 29 mm Rt ovary Vol 29.7 cm Rt ovarian cyst(s): Cysts identified Rt ovarian cyst D1 22 mm Rt ovarian cyst D2 19 mm Rt ovarian cyst D3 14 mm Rt ovarian cyst mean 18.3 mm Rt ovarian cyst vol 3.064 cm Rt ovarian cyst findings: Corpus luteum Rt ovarian cyst D1 27 mm Rt ovarian cyst D2 22 mm Rt ovarian cyst D3 22 mm Rt ovarian cyst mean 23.7 mm Rt ovarian cyst vol 6.842 cm Rt ovarian cyst findings: Corpus luteum Lt ovary: Visualized Lt ovary morphology: premenopausal polycystic Lt ovary D1 71 mm Lt ovary D2 38 mm Lt ovary D3 34 mm Lt ovary Vol 47.8 cm Lt ovarian cyst(s): Cysts identified Lt ovarian cyst D1 37 mm Lt ovarian cyst D2 36 mm Lt ovarian cyst D3 36 mm Lt ovarian cyst mean 36.3 mm Lt ovarian cyst vol 25.108 cm Lt ovarian cyst findings: Hemorrhagic cyst with reticular pattern/clot Lt ovarian cyst D1 19 mm Lt ovarian cyst D2 26 mm Lt ovarian cyst D3 20 mm Lt ovarian cyst mean 21.7 mm Lt ovarian cyst vol 5.173 cm Lt ovarian cyst findings: Corpus luteum Cul de Sac / Bladder / Kidneys / Other Cul de Sac: Visualized Free fluid: no free fluid visualized Performed By: Tatum Burton RDMS Read By: Michel Joseph M.D. MATERNAL MEDICINE [facility] Radiology Study observation (narrative) [facility] B-HCG SerPl-aCncon 5 HCG.beta subunit Qn 252.5 m[IU]/mL High <5.0 C [facility] Comment on above: Order Comment: Speci men Type: BLOOD SPECIMEN Ordering Facility: [facility] Address: [address] [place] [address] Result Comment: BÁRBARA TITATIVE HCG NORMAL RANGES Weeks of Gestation (Weeks Since LMP) 3 Weeks (5.8-71.2 mIU/mL) 4 Weeks (9.5-750 mIU/mL) 5 Weeks (217-7138 mIU/mL) 6 Weeks (158-12731 mIU/mL) 7 Weeks (3697-956103 mIU/mL) 8 Weeks (25566-796346 mIU/mL) 9 Weeks (47116-858640 mIU/mL) 10 Weeks (13825-272986 mIU/mL) 12 Weeks (30085-042604 mIU/mL) Referenced to 4th IS of [facility] Performed By: #### 2 1198-7 #### [facility] CLIA [id number] [address] [address] [place] B-HCG SerPl-aCncon 5 HCG.beta subunit Qn 164.2 m[IU]/mL High <5.0 C [facility] Comment on above: Order Comment: Speci men Type: BLOOD SPECIMEN Ordering Facility: [facility] Address: [address] [place] [address] Result Comment: BÁRBARA TITATIVE HCG NORMAL RANGES Weeks of Gestation (Weeks Since LMP) 3 Weeks (5.8-71.2 mIU/mL) 4 Weeks (9.5-750 mIU/mL) 5 Weeks (217-7138 mIU/mL) 6 Weeks (158-91350 mIU/mL) 7 Weeks (3697-066108 mIU/mL) 8 Weeks (17030-002945 mIU/mL) 9 Weeks (53363-557961 mIU/mL) 10 Weeks (40878-874762 mIU/mL) 12 Weeks (82732-575614 mIU/mL) Referenced to 4th IS of [facility] Performed By: #### 2 1198-7 #### [facility] CLIA [id number] [address] [place] [address] STATES OF [facility] CNPTish 12-09-2024 CNPN Telephone (REIBD) TIN ARIZMENDI ([id number]) 1985 F Date Time Provider Department 12/09/24 MICHEL JOSEPH During your visit today, we recorded the following information about you: Miguel Barbour 12/09/2024 3:15 PM Signed So Pt and wants a call back please Rukhsana Dennis 12/12/2024 8:30 AM Signed Patient calling back with +hpt everyday since , please call patient. Pau Dorman RN 12/12/2024 9:41 AM Signed See other TE for 12/09 Pau Dorman RN December 12, 2024 9:41 AM Allergies As of Date: 12/09/2024 Noted Allergy Reaction AMOXACILLIN (AMOXICILLIN) 03/09/2023 4 - Hives Comments: Skin test is negative. Challenge pending PENICILLINS 10/15/2020 4 - Hives Date Reviewed: 11/25/2024 Reviewed by: Nilton Zhang RN - Fully Assessed Reason for Visit: +hpt on darwin re labwork [Other] Mary Ann / Nilton please call pt re +hpt [Other] Prescriptions as of 12/12/2024 - progesterone micronized (PROMETRIUM) 200 mg capsule Use 1 capsule vaginally daily at bedtime. Starts 3 days after trigger and stop if no test 20 days after trigger - chorionic gonadotropin (PREGNYL) 10,000 unit solr 10,000 Units once daily. 10,000 Units as directed. Inject 10,000 units for HCG trigger - letrozole (FEMARA) 2.5 mg tablet Take 4 tablets by mouth once daily. - metFORMIN (GLUCOPHAGE) 500 mg tablet Take 1 tablet by mouth twice daily - Follitropin Beta (FOLLISTIM AQ) 300 unit/0.36 mL Inject 200 Units subcutaneously once daily - dexAMETHasone (DECADRON) 0.5 mg tablet Take 1 tablet by mouth once daily. - Norethin Misael-Eth Estrad-FE (MICROGESTIN FE) 1.5 mg-30 mcg (21)/75 mg (7) tablet Take 1 tablet by mouth once daily. - ethynodiol diacetate-ethinyl estradiol 1 mg-35 mcg (ZOVIA , ,) 1-35 mg-mcg per tablet Start day 1 of full flow period. Take 1 pill by mouth daily at bedtime, active pills only. Skip or throw out placebo week. - PNV no.95/ferrous fum/folic ac ( ORAL) Take by mouth. - medroxyPROGESTERone (PROVERA) 10 mg tablet Take 1 tablet by mouth two times a day. - metFORMIN (GLUCOPHAGE) 850 mg tablet Take 1 tablet by mouth two times a day. - Follitropin Ila (GONAL-F RFF REDI-JECT) 300/0.5 unit/mL pnij Inject 75 Units subcutaneously once daily. - dexAMETHasone (DECADRON) 0.5 mg tablet Take 1 tablet by mouth once daily. - metFORMIN (GLUCOPHAGE) 850 mg tablet Take 1 tablet by mouth twice daily with meals. - spironolactone (ALDACTONE) 25 mg tablet Take 25 mg by mouth once daily. On hold for - bupropion HCl (BUPROBAN ORAL) Take 150 mg by mouth once daily. Problem List As Of Date 12/09/2024 Noted Resolved High blood pressure [I10] 10/16/2021 Diagnosed: 10/30/2023 Pre-op exam [Z01.818] 10/30/2023 Class 3 severe obesity due to excess calories w*10/30/2023 Missed [O02.1] 10/30/2023 Encounter Status:Closed by [facility]U DORMAN on 3/31/25 [facility] Telephone (REIBD) TIN ARIZMENDI ([id number]) 1985 F Date Time Provider Department 12/09/24 MICHEL JOSEPH REIBD During your visit today, we recorded the following information about you: Rukhsana Dennis 12/09/2024 8:06 AM Signed Please follow up with patient she would like to get bloodwork done. Pau Dorman, RN 12/12/2024 9:40 AM Signed Patient with positive urine test chart review for the following information: History of ectopic: No History of SAB: Yes LMP 11/11/24 date of LH surge: trigger 11/25/24 fertility medications used this cycle letrozole 10mg, FSH 75mg, dexamethasone, progesterone IUI done: no, TIC Labs: Latest Ref Rng 03/12/2023 05/27/2024 ABO O Rh(D) Positive Antibody Screen Negative Type+Scr Expiration 05/30/2024 23:59 Historical Ab Scr Status NEGATIVE Varicella Zoster IgG, Qual Positive Positive Rubella IgG, Qual Positive Positive Current medications: Current Outpatient Medications on File Prior to Visit Medication Sig progesterone micronized (PROMETRIUM) 200 mg capsule Use 1 capsule vaginally daily at bedtime. Starts 3 days after trigger and stop if no test 20 days after trigger chorionic gonadotropin (PREGNYL) 10,000 unit solr 10,000 Units once daily. 10,000 Units as directed. Inject 10,000 units for HCG trigger letrozole (FEMARA) 2.5 mg tablet Take 4 tablets by mouth once daily. metFORMIN (GLUCOPHAGE) 500 mg tablet Take 1 tablet by mouth twice daily Follitropin Beta (FOLLISTIM AQ) 300 unit/0.36 mL Inject 200 Units subcutaneously once daily dexAMETHasone (DECADRON) 0.5 mg tablet Take 1 tablet by mouth once daily. Norethin Misael-Eth Estrad-FE (MICROGESTIN FE) 1.5 mg-30 mcg (21)/75 mg (7) tablet Take 1 tablet by mouth once daily. ethynodiol diacetate-ethinyl estradiol 1 mg-35 mcg (ZOVIA , ,) 1-35 mg-mcg per tablet Start day 1 of full flow period. Take 1 pill by mouth daily at bedtime, active pills only. Skip or throw out placebo week. PNV no.95/ferrous fum/folic ac ( ORAL) Take by mouth. medroxyPROGESTERone (PROVERA) 10 mg tablet Take 1 tablet by mouth two times a day. (Patient not taking: Reported on 05/13/2024) metFORMIN (GLUCOPHAGE) 850 mg tablet Take 1 tablet by mouth two times a day. Follitropin Ila (GONAL-F RFF REDI-JECT) 300/0.5 unit/mL pnij Inject 75 Units subcutaneously once daily. dexAMETHasone (DECADRON) 0.5 mg tablet Take 1 tablet by mouth once daily. metFORMIN (GLUCOPHAGE) 850 mg tablet Take 1 tablet by mouth twice daily with meals. spironolactone (ALDACTONE) 25 mg tablet Take 25 mg by mouth once daily. On hold for bupropion HCl (BUPROBAN ORAL) Take 150 mg by mouth once daily. No current facility-administered medications on file prior to visit. Routing to MAN team for next steps. Pau Dorman RN December 12, 2024 9:38 AM Edgardo Black 12/12/2024 2:23 PM Signed Patient called back in still trying to get blood work scheduled she is very frustrated that she isn't getting a call back. Allergies As of Date: 12/09/2024 Noted Allergy Reaction AMOXACILLIN (AMOXICILLIN) 03/09/2023 4 - Hives Comments: Skin test is negative. Challenge pending PENICILLINS 10/15/2020 4 - Hives Date Reviewed: 11/25/2024 Reviewed by: Nilton Zhang RN - Fully Assessed Reason for Visit: +hpt lmp 11/11 did super ov cycle req labwork [Other] Primary Visit Diagnosis:Encounter for test, result positive [Z32.01] Order(s):HCG QUANTITATIVE [SQHCGQT] Order #: [id number] STANDING Prescriptions as of 12/12/2024 - progesterone micronized (PROMETRIUM) 200 mg capsule Use 1 capsule vaginally daily at bedtime. Starts 3 days after trigger and stop if no test 20 days after trigger - chorionic gonadotropin (PREGNYL) 10,000 unit solr 10,000 Units once daily. 10,000 Units as directed. Inject 10,000 units for HCG trigger - letrozole (FEMARA) 2.5 mg tablet Take 4 tablets by mouth once daily. - metFORMIN (GLUCOPHAGE) 500 mg tablet Take 1 tablet by mouth twice daily - Follitropin Beta (FOLLISTIM AQ) 300 unit/0.36 mL Inject 200 Units subcutaneously once daily - dexAMETHasone (DECADRON) 0.5 mg tablet Take 1 tablet by mouth once daily. - Norethin Misael-Eth Estrad-FE (MICROGESTIN FE) 1.5 mg-30 mcg (21)/75 mg (7) tablet Take 1 tablet by mouth once daily. - ethynodiol diacetate-ethinyl estradiol 1 mg-35 mcg (ZOVIA , ,) 1-35 mg-mcg per tablet Start day 1 of full flow period. Take 1 pill by mouth daily at bedtime, active pills only. Skip or throw out placebo week. - PNV no.95/ferrous fum/folic ac ( ORAL) Take by mouth. - medroxyPROGESTERone (PROVERA) 10 mg tablet Take 1 tablet by mouth two times a day. - Follitropin Ila (GONAL-F RFF REDI-JECT) 300/0.5 unit/mL pnij Inject 75 Units subcutaneously once daily. - metFORMIN (GLUCOPHAGE) 850 mg tablet Take 1 tablet by august (more content not included)... Normal [facility] [place] 11-25-2024 [facility] Telephone (REIBD) TIN ARIZMENDI ([id number]) 1985 F Date Time Provider Department 11/25/24 SELF REIBD During your visit today, we recorded the following information about you: Ana Sotomayor 11/25/2024 2:25 PM Signed Pt has a questions about her progesterone shots Nam Arias RN 11/25/2024 2:53 PM Signed Return call. Patient wanted clarification on what day to start progesterone suppositories. Patient will start them 11/28 at bedtime. Nam Arias RN November 25, 2024 2:53 PM Allergies As of Date: 11/25/2024 Noted Allergy Reaction AMOXACILLIN (AMOXICILLIN) 03/09/2023 4 - Hives Comments: Skin test is negative. Challenge pending PENICILLINS 10/15/2020 4 - Hives Date Reviewed: 11/25/2024 Reviewed by: Nilton Zhang RN - Fully Assessed Reason for Visit: progesterone shots [Other] Prescriptions as of 11/25/2024 - progesterone micronized (PROMETRIUM) 200 mg capsule Use 1 capsule vaginally daily at bedtime. Starts 3 days after trigger and stop if no test 20 days after trigger - chorionic gonadotropin (PREGNYL) 10,000 unit solr 10,000 Units once daily. 10,000 Units as directed. Inject 10,000 units for HCG trigger - letrozole (FEMARA) 2.5 mg tablet Take 4 tablets by mouth once daily. - metFORMIN (GLUCOPHAGE) 500 mg tablet Take 1 tablet by mouth twice daily - Follitropin Beta (FOLLISTIM AQ) 300 unit/0.36 mL Inject 200 Units subcutaneously once daily - dexAMETHasone (DECADRON) 0.5 mg tablet Take 1 tablet by mouth once daily. - Norethin Misael-Eth Estrad-FE (MICROGESTIN FE) 1.5 mg-30 mcg (21)/75 mg (7) tablet Take 1 tablet by mouth once daily. - ethynodiol diacetate-ethinyl estradiol 1 mg-35 mcg (ZOVIA 35E, 28,) 1-35 mg-mcg per tablet Start day 1 of full flow period. Take 1 pill by mouth daily at bedtime, active pills only. Skip or throw out placebo week. - PNV no.95/ferrous fum/folic ac ( ORAL) Take by mouth. - medroxyPROGESTERone (PROVERA) 10 mg tablet Take 1 tablet by mouth two times a day. - metFORMIN (GLUCOPHAGE) 850 mg tablet Take 1 tablet by mouth two times a day. - Follitropin Ila (GONAL-F RFF REDI-JECT) 300/0.5 unit/mL pnij Inject 75 Units subcutaneously once daily. - dexAMETHasone (DECADRON) 0.5 mg tablet Take 1 tablet by mouth once daily. - metFORMIN (GLUCOPHAGE) 850 mg tablet Take 1 tablet by mouth twice daily with meals. - spironolactone (ALDACTONE) 25 mg tablet Take 25 mg by mouth once daily. On hold for - bupropion HCl (BUPROBAN ORAL) Take 150 mg by mouth once daily. Problem List As Of Date 11/25/2024 Noted Resolved High blood pressure [I10] 10/16/2021 Diagnosed: 10/30/2023 Pre-op exam [Z01.818] 10/30/2023 Class 3 severe obesity due to excess calories w*10/30/2023 Missed [O02.1] 10/30/2023 Encounter Status:Closed by NAM ARIAS on 11/25/24 Normal [facility] Estradiol SerPl-mCncon 11-25 E2 [Mass/Vol] 283 pg/mL High 8-37 [facility] Comment on above: Order Comment: Speci men Type: BLOOD SPECIMEN Ordering Facility: [facility] Address: [address] [place] [address] Result Comment: This test is not suitable for patients receiving treatment with the drug Fulvestrant (Faslodex). The drug causes an interference leading to falsely elevated estradiol results. Menstrual cycle Estradiol reference ranges: Follicular : < 234 pg/mL Ovulation : 41 to 398 pg/mL Luteal : < 342 pg/mL Estradiol reference ranges vary by gestational period: First trimester : 154 to 3243 pg/mL Second trimester : 1561 to 78686 pg/mL Third trimester : 8285 to >19350 pg/mL Post-menopausal Estradiol reference range: < 41 pg/mL Reference: 1. Estradiol - E2 (Estradiol III) [package insert V 3.0 [place]]. [facility], [place], [place], February 2016. Performed By: #### 1 0501-5, 2839-9, 2243-4 #### [facility] CLIA [id number] [facility] [place] [address] [place] Follicle Diameter USon 11-25 Indication Follicle monitoring Impression Right Ovary: Follicle(s): 1. Size 16.2 mm x 18.2 mm. Mean 17.2 mm. Vol 2.493 cm 2. Size 17.6 mm x 15.1 mm. Mean 16.3 mm. Vol 2.094 cm 3. Size 12.0 mm x 12.9 mm. Mean 12.4 mm. Vol 0.972 cm 20+ antral follicles < 10 mm Left Ovary: Follicle(s): 1. Size 19.5 mm x 14.8 mm. Mean 17.1 mm. Vol 2.232 cm 2. Size 20.4 mm x 16.8 mm. Mean 18.6 mm. Vol 3.010 cm 3. Size 11.4 mm x 10.2 mm. Mean 10.8 mm. Vol 0.620 cm 20+ antral follicles < 10 mm Recommendations Follow up as clinically indicated. Method Transvaginal ultrasound examination. 3D ultrasound examination Uterus Uterus: Visualized Uterus position: anteverted, axial Endometrium: three-layer pattern Endometrial thickness, total 7.8 mm Right Ovary Rt ovary: Visualized Rt ovarian follicle(s): Follicles identified Rt ovarian follicle D1 16.2 mm Rt ovarian follicle D2 18.2 mm Rt ovarian follicle mean 17.2 mm Rt ovarian follicle vol 2.493 cm Rt ovarian follicle D1 17.6 mm Rt ovarian follicle D2 15.1 mm Rt ovarian follicle mean 16.3 mm Rt ovarian follicle vol 2.094 cm Rt ovarian follicle D1 12.0 mm Rt ovarian follicle D2 12.9 mm Rt ovarian follicle mean 12.4 mm Rt ovarian follicle vol 0.972 cm Rt ovarian follicles other findings: 20+ antral follicles < 10 mm Left Ovary Lt ovary: Visualized Lt ovarian follicle(s): Follicles identified Lt ovarian follicle D1 19.5 mm Lt ovarian follicle D2 14.8 mm Lt ovarian follicle mean 17.1 mm Lt ovarian follicle vol 2.232 cm Lt ovarian follicle D1 20.4 mm Lt ovarian follicle D2 16.8 mm Lt ovarian follicle mean 18.6 mm Lt ovarian follicle vol 3.010 cm Lt ovarian follicle D1 11.4 mm Lt ovarian follicle D2 10.2 mm Lt ovarian follicle mean 10.8 mm Lt ovarian follicle vol 0.620 cm Lt ovarian follicles other findings: 20+ antral follicles < 10 mm Cul de Sac Visualized. no free fluid visualized Performed By: Chary Acevedo; Read By: Michel Joseph M.D. MATERNAL MEDICINE [facility] Radiology Study observation (narrative) [facility] Estradiol SerPl-mCncon 11-24 E2 [Mass/Vol] 225 pg/mL High 8-37 [facility] Comment on above: Order Comment: Speci men Type: BLOOD SPECIMEN Ordering Facility: [facility] Address: [address] [place] [address] Result Comment: This test is not suitable for patients receiving treatment with the drug Fulvestrant (Faslodex). The drug causes an interference leading to falsely elevated estradiol results. Menstrual cycle Estradiol reference ranges: Follicular : < 234 pg/mL Ovulation : 41 to 398 pg/mL Luteal : < 342 pg/mL Estradiol reference ranges vary by gestational period: First trimester : 154 to 3243 pg/mL Second trimester : 1561 to 14430 pg/mL Third trimester : 8285 to >40441 pg/mL Post-menopausal Estradiol reference range: < 41 pg/mL Reference: 1. Estradiol - E2 (Estradiol III) [package insert V 3.0 [place]]. [facility], [place], [place], February 2016. Performed By: #### 1 0501-5, 2839-9, 2243-4 #### [facility] CLIA [id number] [address] [facility] [place] [address] [place] Follicle Diameter USon 11-24 Indication Follicle monitoring Impression Right Ovary: Follicle(s): 1. Size 17.5 mm x 11.7 mm. Mean 14.6 mm. Vol 1.247 cm 2. Size 16.2 mm x 13.0 mm. Mean 14.6 mm. Vol 1.437 cm 20+ antral follicles < 10 mm Left Ovary: Follicle(s): 1. Size 18.5 mm x 12.5 mm. Mean 15.5 mm. Vol 1.524 cm 2. Size 17.6 mm x 16.1 mm. Mean 16.9 mm. Vol 2.392 cm 3. Size 15.0 mm x 10.5 mm. Mean 12.7 mm. Vol 0.869 cm 20+ antral follicles < 10 mm Recommendations Follow up as clinically indicated. Method Transvaginal ultrasound examination. 3D ultrasound examination Uterus Uterus: Visualized Uterus position: anteverted Endometrium: three-layer pattern Endometrial thickness, total 6.7 mm Right Ovary Rt ovary: Visualized Rt ovarian follicle(s): Follicles identified Rt ovarian follicle D1 17.5 mm Rt ovarian follicle D2 11.7 mm Rt ovarian follicle mean 14.6 mm Rt ovarian follicle vol 1.247 cm Rt ovarian follicle D1 16.2 mm Rt ovarian follicle D2 13.0 mm Rt ovarian follicle mean 14.6 mm Rt ovarian follicle vol 1.437 cm Rt ovarian follicles other findings: 20+ antral follicles < 10 mm Left Ovary Lt ovary: Visualized Lt ovarian follicle(s): Follicles identified Lt ovarian follicle D1 18.5 mm Lt ovarian follicle D2 12.5 mm Lt ovarian follicle mean 15.5 mm Lt ovarian follicle vol 1.524 cm Lt ovarian follicle D1 17.6 mm Lt ovarian follicle D2 16.1 mm Lt ovarian follicle mean 16.9 mm Lt ovarian follicle vol 2.392 cm Lt ovarian follicle D1 15.0 mm Lt ovarian follicle D2 10.5 mm Lt ovarian follicle mean 12.7 mm Lt ovarian follicle vol 0.869 cm Lt ovarian follicles other findings: 20+ antral follicles < 10 mm Cul de Sac Visualized. no free fluid visualized Performed By: Chary Acevedo; RDMS Read By: Tiffany Gonzalez MD MATERNAL MEDICINE [facility] Radiology Study observation (narrative) [facility] Surgical Pathologyon 025 Surgical Pathology Normal [facility] Comment on above: Result Comment: [facility] [address] [place] [address] Surgical Pathology Consultation Patient Name:TIN ARIZMENDI:1985 (Age: 39)Gender:FTaken:11/22/2024Reported:11/29/2024Physician(s):Delfina Ellis MD ([phone])Copy To: Rec. #:[id number]: #[id number] Final Pathologic Diagnosis Skin and soft tissue, abdomen, excisional biopsy: Benign epidermal/epidermoid inclusion cyst (one), ruptured, with marked acute inflammation, mild chronic inflammation and granulation tissue, abdomen. Report Electronically Signed Out ihw/11/29/2024IRLETTY SANCHEZ MD Interpretation performed at [facility], [address] [place] [address], License number: [id number]. Clinical History Inclusion cyst L72.0. Gross Description Received in formalin labeled KRUMNOW, abdominal cyst is a pale-butt wrinkled ellipse of skin, 2.3 x 1.1 x 0.1 cm. No lesion or area of discoloration is definitively identified. The resection margin is inked green. The specimen is serially sectioned to reveal a cystic structure filled with friable vegetative material. Two sales representative gas service cross sections are submitted in a single cassette. (1, ns, [id number],m8.1) DM. dm/11/23/2024NSK Specimen(s) Received Left abdomen Fee Codes(s): 1; 479[address] Estradiol [facility] 11-21 E2 [Mass/Vol] 69 pg/mL High 8-37 [facility] Comment on above: Order Comment: Speci men Type: BLOOD SPECIMEN Ordering Facility: [facility] Address: [address] [place] [address] Result Comment: This test is not suitable for patients receiving treatment with the drug Fulvestrant (Faslodex). The drug causes an interference leading to falsely elevated estradiol results. Menstrual cycle Estradiol reference ranges: Follicular : < 234 pg/mL Ovulation : 41 to 398 pg/mL Luteal : < 342 pg/mL Estradiol reference ranges vary by gestational period: First trimester : 154 to 3243 pg/mL Second trimester : 1561 to 61430 pg/mL Third trimester : 8285 to >63353 pg/mL Post-menopausal Estradiol reference range: < 41 pg/mL Reference: 1. Estradiol - E2 (Estradiol III) [package insert V 3.0 [place]]. [facility], [place], [place], February 2016. Performed By: #### 2 243-4 #### [facility] CLIA [id number] [address] [facility] [place] [address] [place] Follicle Diameter USon 11-21 Indication Follicle monitoring Impression Right Ovary: Follicle(s): 20 + antral follicles < 10 mm Left Ovary: Follicle(s): Size 14.8 mm x 9.7 mm. Mean 12.2 mm. Vol 0.724 cm . 20+ antral follicles < 10 mm Recommendations Follow up as clinically indicated. Method Transvaginal ultrasound examination. 3D ultrasound examination Uterus Uterus: Visualized Uterus position: anteverted Endometrium: three-layer pattern Endometrial thickness, total 6.9 mm Right Ovary Rt ovary: Visualized Rt ovary morphology: premenopausal polycystic Rt ovarian follicle(s): Follicles identified Rt ovarian follicles other findings: 20 + antral follicles < 10 mm Left Ovary Lt ovary: Visualized Lt ovary morphology: premenopausal polycystic Lt ovarian follicle(s): Follicles identified Lt ovarian follicle D1 14.8 mm Lt ovarian follicle D2 9.7 mm Lt ovarian follicle mean 12.2 mm Lt ovarian follicle vol 0.724 cm Lt ovarian follicles other findings: 20+ antral follicles < 10 mm Cul de Sac Visualized. no free fluid visualized Performed By: Chary Acevedo; RD Read By: Radha Gilliam M.D. MATERNAL MEDICINE [facility] Radiology Study observation (narrative) [facility]14-2024 [facility] (REIBD[facility] TIN ARIZMENDI ([id number]) 1985 F Date Time Provider Department 11/14/24 MICHEL JOSEPH During your visit today, we recorded the following information about you: Ana Sotomayor 11/14/2024 2:55 PM Signed Pt states her letrozole needs a pa and needs the medication by today Mary Ann Kirkland, RN 11/15/2024 3:06 PM Addendum Automatic PA started when medication ordered. PA closed: : Drug is covered by current benefit plan. No further PA activity needed Pt called stating she needs a PA. Called [facility] to discuss the PA message I received. Still showing on ISpeak's end that a PA is needed. Started cover my meds. Ayala: [id number] Drug is covered by current benefit plan. No further PA activity needed. Called patient . She is on the phone with [employer] now trying to find out what the problem is. Let her know we will adjust everything by one day if needed. Mary Ann Kirkland RN November 14, 2024 3:39 PM Called patient to see if she was able to get Letrozole and she was. She started last night. Plan continues as given yesterday. Mary Ann Kirkland RN November 15, 2024 3:06 PM Allergies As of Date: 11/14/2024 Noted Allergy Reaction AMOXACILLIN (AMOXICILLIN) 03/09/2023 4 - Hives Comments: Skin test is negative. Challenge pending PENICILLINS 10/15/2020 4 - Hives Date Reviewed: 11/14/2024 Reviewed by: Leonel Cabezas APRN.INTERNATIONAL FLIGHT ATTENDANT - Fully Assessed Reason for Visit: needs letrozole today [Other] Prescriptions as of 11/15/2024 - chorionic gonadotropin (PREGNYL) 10,000 unit solr 10,000 Units once daily. 10,000 Units as directed. Inject 10,000 units for HCG trigger - letrozole (FEMARA) 2.5 mg tablet Take 4 tablets by mouth once daily. - metFORMIN (GLUCOPHAGE) 500 mg tablet Take 1 tablet by mouth twice daily - Follitropin Beta (FOLLISTIM AQ) 300 unit/0.36 mL Inject 200 Units subcutaneously once daily - dexAMETHasone (DECADRON) 0.5 mg tablet Take 1 tablet by mouth once daily. - Norethin Misael-Eth Estrad-FE (MICROGESTIN FE) 1.5 mg-30 mcg (21)/75 mg (7) tablet Take 1 tablet by mouth once daily. - ethynodiol diacetate-ethinyl estradiol 1 mg-35 mcg (ZOVIA E, 28,) 1-35 mg-mcg per tablet Start day 1 of full flow period. Take 1 pill by mouth daily at bedtime, active pills only. Skip or throw out placebo week. - PNV no.95/ferrous fum/folic ac ( ORAL) Take by mouth. - medroxyPROGESTERone (PROVERA) 10 mg tablet Take 1 tablet by mouth two times a day. - metFORMIN (GLUCOPHAGE) 850 mg tablet Take 1 tablet by mouth two times a day. - Follitropin Ila (GONAL-F RFF REDI-JECT) 300/0.5 unit/mL pnij Inject 75 Units subcutaneously once daily. - dexAMETHasone (DECADRON) 0.5 mg tablet Take 1 tablet by mouth once daily. - metFORMIN (GLUCOPHAGE) 850 mg tablet Take 1 tablet by mouth twice daily with meals. - spironolactone (ALDACTONE) 25 mg tablet Take 25 mg by mouth once daily. On hold for - bupropion HCl (BUPROBAN ORAL) Take 150 mg by mouth once daily. Problem List As Of Date 11/14/2024 Noted Resolved High blood pressure [I10] 10/16/2021 Diagnosed: 10/30/2023 Pre-op exam [Z01.818] 10/30/2023 Class 3 severe obesity due to excess calories w*10/30/2023 Missed [O02.1] 10/30/2023 Encounter Status:Closed by MARY ANN KIRKLAND on 11/15/24 Normal [facility] Estradiol SerPl-mCncon 11-14 E2 [Mass/Vol] 39 pg/mL High 8-37 [facility] Comment on above: Order Comment: Speci men Type: BLOOD SPECIMEN Ordering Facility: [facility] Address: [address] [place] [address] Result Comment: This test is not suitable for patients receiving treatment with the drug Fulvestrant (Faslodex). The drug causes an interference leading to falsely elevated estradiol results. Menstrual cycle Estradiol reference ranges: Follicular : < 234 pg/mL Ovulation : 41 to 398 pg/mL Luteal : < 342 pg/mL Estradiol reference ranges vary by gestational period: First trimester : 154 to 3243 pg/mL Second trimester : 1561 to 25092 pg/mL Third trimester : 8285 to >05450 pg/mL Post-menopausal Estradiol reference range: < 41 pg/mL Reference: 1. Estradiol - E2 (Estradiol III) [package insert V 3.0 [place]]. [facility], [place], [place], February 2016. Performed By: #### 1 0501-5, 2839-9, 2243-4 #### [facility] CLIA [id number] [facility] [place] [address] [place] Follicle Diameter USon 11-14 Indication Baseline TV Impression Right Ovary: Size 43 mm x 33 mm x 26 mm Follicle(s): # 20 antral follicles < 10 mm Left Ovary: Size 49 mm x 38 mm x 31 mm Follicle(s): #18 antral follicles < 10 mm Recommendations Follow up as clinically indicated. Menstrual History LMP on 11/11/2024 Method Transvaginal ultrasound examination. 3D ultrasound examination Uterus Uterus: Visualized Uterus position: anteverted Description of uterine malformations: normally shaped Endometrium: three-layer pattern Uterus length 79 mm Uterus width 52 mm Uterus height 35 mm Uterus Vol 75.9 cm Endometrial thickness, total 4.0 mm Right Ovary Rt ovary: Visualized Rt ovary morphology: premenopausal polycystic Rt ovary D1 43 mm Rt ovary D2 33 mm Rt ovary D3 26 mm Rt ovary mean 33.8 mm Rt ovary Vol 19.1 cm Rt ovarian follicle(s): Follicles identified Rt ovarian follicles other findings: # 20 antral follicles < 10 mm Left Ovary Lt ovary: Visualized Lt ovary morphology: premenopausal polycystic Lt ovary D1 49 mm Lt ovary D2 38 mm Lt ovary D3 31 mm Lt ovary mean 39.1 mm Lt ovary Vol 29.6 cm Lt ovarian follicle(s): Follicles identified Lt ovarian follicles other findings: #18 antral follicles < 10 mm [place] Visualized. no free fluid visualized Performed By: Nilton Bates RDMS Read By: Radha Gilliam M.D. MATERNAL MEDICINE [facility] Radiology Study observation (narrative) Robe mars [facility] Jerrell 11-11-2024 [facility] Telephone (REIBD) TIN ARIZMENDI ([id number]) 1985 F Date Time Provider Department 11/11/24 MICHEL JOSEPH During your visit today, we recorded the following information about you: Miguel Barbour 11/11/2024 8:06 AM Signed Super ov Patient started period- calling to schedule baseline Nilton Zhang RN 11/11/2024 8:37 AM Signed Returned call to patient. Scheduled for baseline for 11/14/24 @ 0740 at [facility]. Pt. States she needs refill on letrozole and trigger shot. Medication orders pended. Nilton Zhang RN November 11, 2024 8:32 AM Leonel Cabezas APRN.INTERNATIONAL FLIGHT ATTENDANT 11/14/2024 7:28 AM Signed The following approved medication requests have been transmitted electronically. Requested Prescriptions Signed Prescriptions Disp Refills chorionic gonadotropin (PREGNYL) 10,000 unit solr 1 Each 1 Si,000 Units once daily. 10,000 Units as directed. Inject 10,000 units for HCG trigger Authorizing Provider: LEONEL CABEZAS letrozole (FEMARA) 2.5 mg tablet 20 tablet 5 Sig: Take 4 tablets by mouth once daily. Authorizing Provider: LEONEL CABEZAS APRN.INTERNATIONAL FLIGHT ATTENDANT Allergies As of Date: 11/11/2024 Noted Allergy Reaction AMOXACILLIN (AMOXICILLIN) 03/09/2023 4 - Hives Comments: Skin test is negative. Challenge pending PENICILLINS 10/15/2020 4 - Hives Date Reviewed: 10/19/2024 Reviewed by: Nam Arias RN - Fully Assessed Reason for Visit: Appointment [186] Primary Visit Diagnosis:Encounter for fertility testing [Z31.41] Other Visit Diagnosis:Female infertility [N97.9] Order(s):ESTRADIOL-17 B BLD [SQE2] Order #: [id number] STANDING FOLLICULAR [facility] [[id number]] Order #: [id number]: 1 STANDING chorionic gonadotropin (PREGNYL) 10,000 unit solr10,000 Units once daily. 10,000 Units as directed. Inject 10,000 units for HCG triggerDisp: 1 EachRfl: 1 letrozole (FEMARA) 2.5 mg tabletTake 4 tablets by mouth once daily.Disp: 20 tabletRfl: 5 Prescriptions as of 11/14/2024 - chorionic gonadotropin (PREGNYL) 10,000 unit solr 10,000 Units once daily. 10,000 Units as directed. Inject 10,000 units for HCG trigger - letrozole (FEMARA) 2.5 mg tablet Take 4 tablets by mouth once daily. - metFORMIN (GLUCOPHAGE) 500 mg tablet Take 1 tablet by mouth twice daily - Follitropin Beta (FOLLISTIM AQ) 300 unit/0.36 mL Inject 200 Units subcutaneously once daily - dexAMETHasone (DECADRON) 0.5 mg tablet Take 1 tablet by mouth once daily. - Norethin Misael-Eth Estrad-FE (MICROGESTIN FE) 1.5 mg-30 mcg (21)/75 mg (7) tablet Take 1 tablet by mouth once daily. - ethynodiol diacetate-ethinyl estradiol 1 mg-35 mcg (ZOVIA , ,) 1-35 mg-mcg per tablet Start day 1 of full flow period. Take 1 pill by mouth daily at bedtime, active pills only. Skip or throw out placebo week. - PNV no.95/ferrous fum/folic ac ( ORAL) Take by mouth. - medroxyPROGESTERone (PROVERA) 10 mg tablet Take 1 tablet by mouth two times a day. - metFORMIN (GLUCOPHAGE) 850 mg tablet Take 1 tablet by mouth two times a day. - Follitropin Ila (GONAL-F RFF REDI-JECT) 300/0.5 unit/mL pnij Inject 75 Units subcutaneously once daily. - dexAMETHasone (DECADRON) 0.5 mg tablet Take 1 tablet by mouth once daily. - metFORMIN (GLUCOPHAGE) 850 mg tablet Take 1 tablet by mouth twice daily with meals. - spironolactone (ALDACTONE) 25 mg tablet Take 25 mg by mouth once daily. On hold for - bupropion HCl (BUPROBAN ORAL) Take 150 mg by mouth once daily. Problem List As Of Date 11/11/2024 Noted Resolved High blood pressure [I10] 10/16/2021 Diagnosed: 10/30/2023 Pre-op exam [Z01.818] 10/30/2023 Class 3 severe obesity due to excess calories w*10/30/2023 Missed [O02.1] 10/30/2023 Prescriptions ordered this encounter Disp Refills Start End CHORIONIC GONADOTROPIN, HUMAN 10,000* 1 Ea* 1 11/14/2024 Route: OTHER Si,000 Units once daily. 10,000 Units as directed. Inject 10,000 units for HCG trigger LETROZOLE 2.5 MG TABLET 20 t* 5 11/14/2024 Route: ORAL Sig: Take 4 tablets by mouth once daily. Medications Discontinued During This Encounter Prescriptions - letrozole (FEMARA) 2.5 mg tablet (Discontinued) Take 4 tablets by mouth once daily. - chorionic gonadotropin (PREGNYL) 10,000 unit solr (Discontinued) 10,000 Units once daily. 10,000 Units as directed. Inject 10,000 units for HCG trigger Encounter Status:Closed by LEONEL CABEZAS on 11/14/24 Normal [facility] CBC AND AUTO DIFFon 11-08-19 ABSOLUTE BASOPHIL 0.1 X10E9/L Normal 0.0-0.2 [facility] Comment on above: Performed By: #### C BCA, CMP, THYR, 92346-0 #### [facility] ([id number]) [address], [address] [place] [address] ABSOLUTE NEUTROPHIL 4.8 X10E9/L Normal 1.5-6.[address] [facility] Comment on above: Performed By: #### C BCA, CMP, THYR, 50638-5 #### [facility] ([id number]) [address], [address] [place] [address] Basophils/100 WBC (Bld) 0.6 % Normal [facility] Comment on above: Performed By: #### C BCA, CMP, THYR, 37957-9 #### [facility] ([id number]) [address], [address] [place] [address] Eosinophils (Bld) [#/Vol] 0.2 10*3/uL Normal 0.0-0.4 [facility] Comment on above: Performed By: #### C BCA, CMP, THYR, 99892-7 #### [facility] ([id number]) [address] [place] [address] Eosinophils/100 WBC (Bld) 2.6 % Normal [facility] Comment on above: Performed By: #### C BCA, CMP, THYR, 81876-8 #### [facility] ([id number]) [address] [place] [address] Erythrocyte distribution width (RBC) [Ratio] 14.3 % Normal 11.5-15.0 [facility] Comment on above: Performed By: #### C BCA, CMP, THYR, 88681-1 #### [facility] ([id number]) [address] [place] [address] Hematocrit (Bld) [Volume fraction] 38.7 % Normal 35-47 [facility] Comment on above: Performed By: #### C BCA, CMP, THYR, 20721-6 #### [facility] ([id number]) [address] [place] [address] Hemoglobin (Bld) [Mass/Vol] 13.2 g/dL Normal 11.7-15.5 [facility] Comment on above: Performed By: #### C BCA, CMP, THYR, 85982-8 #### [facility] ([id number]) [address] [place] [address] Lymphocytes (Bld) [#/Vol] 2.8 10*3/uL Normal 1.0-3.5 [facility] Comment on above: Performed By: #### C BCA, CMP, THYR, 73258-5 #### [facility] ([id number]) [address] [place] [address] Lymphocytes/100 WBC (Bld) 33.6 % Normal [facility] Comment on above: Performed By: #### C BCA, CMP, THYR, 35823-5 #### [facility] ([id number]) [address] [place] [address] MCH (RBC) [Entitic mass] 30.4 pg Normal 27-34 [facility] Comment on above: Performed By: #### C BCA, CMP, THYR, 28515-0 #### [facility] ([id number]) [address] [place] [address] MCHC (RBC) [Mass/Vol] 34.1 g/dL Normal 32-36 [facility] Comment on above: Performed By: #### C BCA, CMP, THYR, 81884-0 #### [facility] ([id number]) [address], [address] [place] [address] MCV (RBC) [Entitic vol] 89 fL Normal 80-100 [facility] Comment on above: Performed By: #### C BCA, CMP, THYR, 74677-6 #### [facility] ([id number]) [address], [facility] [address] [place] [address] Monocytes (Bld) [#/Vol] 0.5 10*3/uL Normal 0-0.9 [facility] Comment on above: Performed By: #### C BCA, CMP, THYR, 56710-1 #### [facility] ([id number]) [address] [address] [place] [address] Monocytes/100 WBC (Bld) 6.2 % Normal [facility] Comment on above: Performed By: #### C BCA, CMP, THYR, 31784-2 #### [facility] ([id number]) [address] [place] [address] Neutrophils/100 WBC (Bld) 57.0 % Normal [facility] Comment on above: Performed By: #### C BCA, CMP, THYR, 23556-7 #### [facility] ([id number]) [address], [address] [place] [address] Platelet mean volume (Bld) [Entitic vol] 7.8 fL Normal 7-12 [facility] Comment on above: Performed By: #### C BCA, CMP, THYR, 29818-0 #### [facility] ([id number]) [address], [address] [place] [address] Platelets (Bld) [#/Vol] 338 10*3/uL Normal 150-450 [facility] Comment on above: Performed By: #### C BCA, CMP, THYR, 10259-3 #### [facility] ([id number]) [address], [address] [place] [address] RBC COUNT 4.34 X10E12/L Normal 3.80-5.20 [facility] Comment on above: Performed By: #### C BCA, CMP, THYR, 65356-8 #### [facility] ([id number]) [address], [facility] [address] [place] [address] WBC (Bld) [#/Vol] 8.5 10*3/uL Normal 4.0-11.0 [facility] Comment on above: Performed By: #### C BCA, CMP, THYR, 64516-3 #### [facility] ([id number]) [address], [address] [place] [address] Jerrell 11-08-2024 ADELEN Telephone (DEVINV) TIN ARIZMENDI ([id number]) 1985 F Date Time Provider Department 11/08/24 MIGUEL LEVY During your visit today, we recorded the following information about you: Allergies As of Date: 11/08/2024 Noted Allergy Reaction AMOXACILLIN (AMOXICILLIN) 03/09/2023 4 - Hives Comments: Skin test is negative. Challenge pending PENICILLINS 10/15/2020 4 - Hives Date Reviewed: 10/19/2024 Reviewed by: Nam Arias RN - Fully Assessed Reason for Visit: Refill Request [94] Primary Visit Diagnosis:Medication refill [Z76.0] Order(s):metFORMIN (GLUCOPHAGE) 500 mg tabletTake 1 tablet by mouth twice dailyDisp: 60 tabletRfl: 2 Prescriptions as of 11/08/2024 - metFORMIN (GLUCOPHAGE) 500 mg tablet Take 1 tablet by mouth twice daily - chorionic gonadotropin (PREGNYL) 10,000 unit solr 10,000 Units once daily. 10,000 Units as directed. Inject 10,000 units for HCG trigger - Follitropin Beta (FOLLISTIM AQ) 300 unit/0.36 mL Inject 200 Units subcutaneously once daily - dexAMETHasone (DECADRON) 0.5 mg tablet Take 1 tablet by mouth once daily. - Norethin Misael-Eth Estrad-FE (MICROGESTIN FE) 1.5 mg-30 mcg (21)/75 mg (7) tablet Take 1 tablet by mouth once daily. - ethynodiol diacetate-ethinyl estradiol 1 mg-35 mcg (ZOVIA E, 28,) 1-35 mg-mcg per tablet Start day 1 of full flow period. Take 1 pill by mouth daily at bedtime, active pills only. Skip or throw out placebo week. - PNV no.95/ferrous fum/folic ac ( ORAL) Take by mouth. - medroxyPROGESTERone (PROVERA) 10 mg tablet Take 1 tablet by mouth two times a day. - letrozole (FEMARA) 2.5 mg tablet Take 4 tablets by mouth once daily. - metFORMIN (GLUCOPHAGE) 850 mg tablet Take 1 tablet by mouth two times a day. - Follitropin Ila (GONAL-F RFF REDI-JECT) 300/0.5 unit/mL pnij Inject 75 Units subcutaneously once daily. - dexAMETHasone (DECADRON) 0.5 mg tablet Take 1 tablet by mouth once daily. - metFORMIN (GLUCOPHAGE) 850 mg tablet Take 1 tablet by mouth twice daily with meals. - spironolactone (ALDACTONE) 25 mg tablet Take 25 mg by mouth once daily. On hold for - bupropion HCl (BUPROBAN ORAL) Take 150 mg by mouth once daily. Problem List As Of Date 11/08/2024 Noted Resolved High blood pressure [I10] 10/16/2021 Diagnosed: 10/30/2023 Pre-op exam [Z01.818] 10/30/2023 Class 3 severe obesity due to excess calories w*10/30/2023 Missed [O02.1] 10/30/2023 Prescriptions ordered this encounter Disp Refills Start End METFORMIN 500 MG TABLET 60 t* 2 11/08/2024 Route: ORAL Sig: Take 1 tablet by mouth twice daily Medications Discontinued During This Encounter Prescriptions - metFORMIN (GLUCOPHAGE) 500 mg tablet (Discontinued) Take 1 tablet by mouth two times a day. Encounter Status:Closed by MIGUEL LEVY on 11/08/24 Normal [facility] METABOLIC PANE Miguel 11-08-2024 Albumin [Mass/Vol] 3.8 g/dL Normal 3.2-5.3 [facility] Comment on above: Performed By: #### C BCA, CMP, THYR, 54189-4 #### [facility] ([id number]) [address], [address] [place] [address] ALP [Catalytic activity/Vol] 54 U/L Normal 39-130 [facility] Comment on above: Performed By: #### C BCA, CMP, THYR, 46714-8 #### [facility] ([id number]) [address], [address] [place] [address] ALT [Catalytic activity/Vol] 32 U/L High 0-31 [facility] Comment on above: Performed By: #### C BCA, CMP, THYR, 13225-1 #### [facility] ([id number]) [address], [address] [place] [address] Anion gap [Moles/Vol] 9 mmol/L Normal 5-15 [facility] Comment on above: Performed By: #### C BCA, CMP, THYR, 02960-4 #### [facility] ([id number]) [address], [address] [place] [address] AST [Catalytic activity/Vol] 32 U/L Normal 0-41 [facility] Comment on above: Performed By: #### C BCA, CMP, THYR, 26271-4 #### [facility] ([id number]) [address], [address] [place] [address] Bilirubin [Mass/Vol] 0.4 mg/dL Normal 0.3-1.[address] [facility] Comment on above: Performed By: #### C BCA, CMP, THYR, 06861-4 #### [facility] ([id number]) [address], [address] [place] [address] Calcium [Mass/Vol] 9.0 mg/dL Normal 8.5-10.5 [facility] Comment on above: Performed By: #### C BCA, CMP, THYR, 87041-6 #### [facility] ([id number]) [address] [address] [place] [address] Chloride [Moles/Vol] 106 mmol/L Normal 98-[address] [facility] Comment on above: Performed By: #### C BCA, CMP, THYR, 24317-8 #### [facility] ([id number]) [address] [place] [address] CO2 [Moles/Vol] 25 mmol/L Normal 22-32 [facility] Comment on above: Performed By: #### C BCA, CMP, THYR, 35707-9 #### [facility] ([id number]) [address] [address] [place] [address] Creatinine [Mass/Vol] 0.83 mg/dL Normal 0.40-1.00 [facility] Comment on above: Result Comment: METH OD TRACEABLE TO IDMS STANDARD Performed By: #### C BCA, CMP, THYR, 19918-1 #### [facility] ([id number]) [address], [address] [place] [address] eGFR (CKD-EPI) NON-RACE DEPENDENT >90 Normal >59 [facility] Comment on above: Result Comment: Reported eGFR is based on the CKD-EPI 2021 equation that does not use a race coefficient. Performed By: #### C BCA, CMP, THYR, 24941-3 #### [facility] ([id number]) [address], [address] [place] [address] Glucose [Mass/Vol] 94 mg/dL Normal 65-99 [facility] Comment on above: Performed By: #### C BCA, CMP, THYR, 71527-8 #### [facility] ([id number]) [address], [address] [place] [address] Potassium [Moles/Vol] 3.5 mmol/L Normal 3.5-5.0 [facility] Comment on above: Performed By: #### C BCA, CMP, THYR, 73014-0 #### [facility] ([id number]) [address], [address] [place] [address] Protein [Mass/Vol] 6.8 g/dL Normal 6.0-8.0 [facility] Comment on above: Performed By: #### C BCA, CMP, THYR, 89667-8 #### [facility] ([id number]) [address], [address] [place] [address] Sodium [Moles/Vol] 140 mmol/L Normal 134-146 [facility] Comment on above: Performed By: #### C BCA, CMP, THYR, 70478-5 #### [facility] ([id number]) [address], [address] [place] [address] Urea nitrogen [Mass/Vol] 8 mg/dL Normal 5-23 [facility] Comment on above: Performed By: #### C BCA, CMP, THYR, 54092-6 #### [facility] ([id number]) [address], [address] [place] [address] HGB A1C (GLYCO-HGB)on 2024 Glucose [Mass/Vol] 114 mg/dL Normal [facility] Comment on above: Performed By: #### H A1C #### [facility] ([id number]) [address], [address] [place] [address] HbA1c (Bld) [Mass fraction] 5.6 % Normal 4.4-5.6 [facility] Comment on above: Result Comment: NOTE ADA Guidelines Result HgbA1c Normal : less than 5.7 % Prediabetes : 5.7 % to 6.4 % Diabetes : > 6.4 % Use with caution in patients with abnormal hemoglobin variants as the half-life of red blood cells and in vivo glycation rates are affected. Performed By: #### H A1C #### [facility] ([id number]) [address], [address] [place] [address] Lipid 1996 panelon 5 Cholesterol [Mass/Vol] 162 mg/dL Normal 150-200 [facility] Comment on above: Performed By: #### C BCA, CMP, THYR, 45933-9 #### [facility] ([id number]) [address], [facility] [address] [place] [address] Cholesterol in HDL [Mass/Vol] 36 mg/dL Low >39 [facility] Comment on above: Result Comment: HDL <40 mg/dL - High Risk HDL > or = 40mg/dL- Desirable HDL >60 mg/dL - Negative Risk Performed By: #### C BCA, CMP, THYR, 47992-9 #### [facility] ([id number]) [address], [address] [place] [address] Cholesterol in VLDL [Mass/Vol] 123 mg/dL High 0-30 [facility] Comment on above: Performed By: #### C BCA, CMP, THYR, 59008-2 #### [facility] ([id number]) [address] [place] [address] CHOLESTEROL:HDL 4.5 Normal 1.0-5.0 [facility] Comment on above: Performed By: #### C BCA, CMP, THYR, 46218-9 #### [facility] ([id number]) [address] [place] [address] LDL (CALC) RESULT BELOW DETECTABLE RANGE Normal <130 [facility] Comment on above: Performed By: #### C BCA, CMP, THYR, 10826-0 #### [facility] ([id number]) [address] [place] [address] Triglyceride [Mass/Vol] 615 mg/dL High 27-150 P [facility] Comment on above: Performed By: #### C BCA, CMP, THYR, 01388-6 #### [facility] ([id number]) [address] [place] [address] THYROID PROFILEon 11-08-2024 Free T4 [Mass/Vol] 0.65 ng/dL Normal 0.61-1.60 [facility] Comment on above: Performed By: #### C BCA, CMP, THYR, 75578-7 #### [facility] ([id number]) [address] [place] [address] TSH 1.64 uIU/mL Normal 0.49-4.67 [facility] Comment on above: Performed By: #### C BCA, CMP, THYR, 39362-8 #### [facility] ([id number]) [address] [place] [address] CNNURSEon 10-23-2024 CNNURSE Nurse Visit (REIBD) TIN ARIZMENDI ([id number]) 1985 F Date Time Provider Department 10/23/24 8:30 AM NURSE LOU[facility] ERNESTINE REIBD During your visit today, we recorded the following information about you: Ivy Gardner RN 10/23/2024 11:52 AM Signed The patient is here today for follicular ultrasound and blood work. The patient reports no problems or complaints. Ultrasound and blood will be reviewed by the physician, the flow sheet will be updated and instructions will be communicated to the patient. Ivy Gardner RN Plan review with patient and sent to my chart. Ivy Gardner RN October 23, 2024 11:51 AM Michel Joseph MD 10/26/2024 1:22 PM Signed Late entry. I spoke with patient on 10/23/24 and expressed my concern regarding proceeding in setting of 5+ dominant follicles. I counseled regarding risks both to her body and to future offspring (e.g. high order multiples, premature prematurity, etc). She expressed excellent understanding of these risks. She would like to proceed. I counseled regarding selective reduction should she have higher order multiples. She would like to proceed and agreed with plan of selective reduction. While I do recommend canceling given these risks, I do feel that the patient is well informed and is making an informed choice which is not unreasonable. I communicated this plan back to Dr Parikh. Michel Joseph MD Referring Provider: SELF [200] Allergies As of Date: 10/23/2024 Noted Allergy Reaction AMOXACILLIN (AMOXICILLIN) 03/09/2023 4 - Hives Comments: Skin test is negative. Challenge pending PENICILLINS 10/15/2020 4 - Hives Date Reviewed: 10/19/2024 Reviewed by: Nam Arias RN - Fully Assessed Reason for Visit: Infertility [285] Visit Diagnosis:Female infertility [N97.9] Order(s):ESTRADIOL-17 B BLD [SQE2] Order #: [id number]. #:[id number] Prescriptions as of 10/26/2024 - metFORMIN (GLUCOPHAGE) 500 mg tablet Take 1 tablet by mouth two times a day. - chorionic gonadotropin (PREGNYL) 10,000 unit solr 10,000 Units once daily. 10,000 Units as directed. Inject 10,000 units for HCG trigger - Follitropin Beta (FOLLISTIM AQ) 300 unit/0.36 mL Inject 200 Units subcutaneously once daily - dexAMETHasone (DECADRON) 0.5 mg tablet Take 1 tablet by mouth once daily. - Norethin Misael-Eth Estrad-FE (MICROGESTIN FE) 1.5 mg-30 mcg (21)/75 mg (7) tablet Take 1 tablet by mouth once daily. - ethynodiol diacetate-ethinyl estradiol 1 mg-35 mcg (ZOVIA , ,) 1-35 mg-mcg per tablet Start day 1 of full flow period. Take 1 pill by mouth daily at bedtime, active pills only. Skip or throw out placebo week. - PNV no.95/ferrous fum/folic ac ( ORAL) Take by mouth. - medroxyPROGESTERone (PROVERA) 10 mg tablet Take 1 tablet by mouth two times a day. - letrozole (FEMARA) 2.5 mg tablet Take 4 tablets by mouth once daily. - metFORMIN (GLUCOPHAGE) 850 mg tablet Take 1 tablet by mouth two times a day. - Follitropin Ila (GONAL-F F REDI-JECT) 300/0.5 unit/mL pnij Inject 75 Units subcutaneously once daily. - dexAMETHasone (DECADRON) 0.5 mg tablet Take 1 tablet by mouth once daily. - metFORMIN (GLUCOPHAGE) 850 mg tablet Take 1 tablet by mouth twice daily with meals. - spironolactone (ALDACTONE) 25 mg tablet Take 25 mg by mouth once daily. On hold for - bupropion HCl (BUPROBAN ORAL) Take 150 mg by mouth once daily. Problem List As Of Date 10/23/2024 Noted Resolved High blood pressure [I10] 10/16/2021 Diagnosed: 10/30/2023 Pre-op exam [Z01.818] 10/30/2023 Class 3 severe obesity due to excess calories w*10/30/2023 Missed [O02.1] 10/30/2023 Encounter Status:Closed by IVY GARDNER on 10/23/24 Normal [facility] E2 [Mass/Vol]on 10-23-2024 [facility] ESTRADIOL-17B BLDon 10-23-19 E2 [Mass/Vol] 408 pg/mL [facility] Comment on above: This test is not shailesh table for patients receiving treatment with the drug Fulvestrant (Faslodex). The drug causes an interference leading to falsely elevated estradiol results. Menstrual cycle Estradiol reference ranges: Follicular : < 234 pg/mL Ovulation : 41 to 398 pg/mL Luteal : < 342 pg/mL Estradiol reference ranges vary by gestational period: First trimester : 154 to 3243 pg/mL Second trimester : 1561 to 15361 pg/mL Third trimester : 8285 to >46314 pg/mL Post-menopausal Estradiol reference range: < 41 pg/mL Reference: 1. Estradiol - E2 (Estradiol III) [package insert V 3.0 [place]]. [facility], [place], [place], February 2016. Estradiol SerPl-mCncon 10-23 E2 [Mass/Vol] 408 pg/mL Normal [facility] Comment on above: Order Comment: Speci men Type: BLOOD SPECIMENOrdering Facility: [facility] Address: [address] [place] [address] Result Comment: This test is not suitable for patients receiving treatment with the drug Fulvestrant (Faslodex). The drug causes an interference leading to falsely elevated estradiol results. Menstrual cycle Estradiol reference ranges: Follicular : < 234 pg/mL Ovulation : 41 to 398 pg/mL Luteal : < 342 pg/mL Estradiol reference ranges vary by gestational period: First trimester : 154 to 3243 pg/mL Second trimester : 1561 to 28883 pg/mL Third trimester : 8285 to >25608 pg/mL Post-menopausal Estradiol reference range: < 41 pg/mL Reference: 1. Estradiol - E2 (Estradiol III) [package insert V 3.0 [place]]. [facility], [place], [place], February 2016. Performed By: #### 2 243-4 ####[facility] [id number] [place] [address] [place] Follicle Diameter USon 10-23 Indication Follicle monitoring Impression Right Ovary: Follicle(s): 1. Size 16.4 mm x 15.3 mm. Mean 15.9 mm. Vol 2.022 cm 2. Size 17.3 mm x 12.8 mm. Mean 15.1 mm. Vol 1.495 cm 3. Size 16.1 mm x 9.7 mm. Mean 12.9 mm. Vol 0.790 cm 4. Size 16.7 mm x 16.1 mm. Mean 16.4 mm. Vol 2.264 cm 5. Size 10.9 mm x 7.7 mm. Mean 9.3 mm. Vol 0.339 cm 15 antral follicles < 10 mm Left Ovary: Follicle(s): 1. Size 18.1 mm x 13.7 mm. Mean 15.9 mm. Vol 1.765 cm 2. Size 15.9 mm x 10.8 mm. Mean 13.4 mm. Vol 0.971 cm 3. Size 21.7 mm x 19.5 mm. Mean 20.6 mm. Vol 4.323 cm 4. Size 15.8 mm x 12.7 mm. Mean 14.3 mm. Vol 1.333 cm 5. Size 19.0 mm x 18.2 mm. Mean 18.6 mm. Vol 3.293 cm 20 antral follicles < 10 mm Recommendations Follow up as clinically indicated. Method Transvaginal ultrasound examination. 3D ultrasound examination Uterus Uterus: Visualized Uterus position: anteverted Endometrium: three-layer pattern Endometrial thickness, total 8.1 mm Right Ovary Rt ovary: Visualized Rt ovarian follicle(s): Follicles identified Rt ovarian follicle D1 16.4 mm Rt ovarian follicle D2 15.3 mm Rt ovarian follicle mean 15.9 mm Rt ovarian follicle vol 2.022 cm Rt ovarian follicle D1 17.3 mm Rt ovarian follicle D2 12.8 mm Rt ovarian follicle mean 15.1 mm Rt ovarian follicle vol 1.495 cm Rt ovarian follicle D1 16.1 mm Rt ovarian follicle D2 9.7 mm Rt ovarian follicle mean 12.9 mm Rt ovarian follicle vol 0.790 cm Rt ovarian follicle D1 16.7 mm Rt ovarian follicle D2 16.1 mm Rt ovarian follicle mean 16.4 mm Rt ovarian follicle vol 2.264 cm Rt ovarian follicle D1 10.9 mm Rt ovarian follicle D2 7.7 mm Rt ovarian follicle mean 9.3 mm Rt ovarian follicle vol 0.339 cm Rt ovarian follicles other findings: 15 antral follicles < 10 mm Left Ovary Lt ovary: Visualized Lt ovarian follicle(s): Follicles identified Lt ovarian follicle D1 18.1 mm Lt ovarian follicle D2 13.7 mm Lt ovarian follicle mean 15.9 mm Lt ovarian follicle vol 1.765 cm Lt ovarian follicle D1 15.9 mm Lt ovarian follicle D2 10.8 mm Lt ovarian follicle mean 13.4 mm Lt ovarian follicle vol 0.971 cm Lt ovarian follicle D1 21.7 mm Lt ovarian follicle D2 19.5 mm Lt ovarian follicle mean 20.6 mm Lt ovarian follicle vol 4.323 cm Lt ovarian follicle D1 15.8 mm Lt ovarian follicle D2 12.7 mm Lt ovarian follicle mean 14.3 mm Lt ovarian follicle vol 1.333 cm Lt ovarian follicle D1 19.0 mm Lt ovarian follicle D2 18.2 mm Lt ovarian follicle mean 18.6 mm Lt ovarian follicle vol 3.293 cm Lt ovarian follicles other findings: 20 antral follicles < 10 mm [place] Visualized. no free fluid visualized Performed By: Neida Goldman RDMS Read By: Odalis Parikh M.D. MATERNAL MEDICINE [facility] Radiology Study observation (narrative) [facility]iol [facility] 10-21 E2 [Mass/Vol] 175 pg/mL [facility] 8-37 [facility] Comment on above: Order Comment: Speci men Type: BLOOD SPECIMEN Ordering Facility: [facility] Address: [address] [place] [address] Result Comment: This test is not suitable for patients receiving treatment with the drug Fulvestrant (Faslodex). The drug causes an interference leading to falsely elevated estradiol results. Menstrual cycle Estradiol reference ranges: Follicular : < 234 pg/mL Ovulation : 41 to 398 pg/mL Luteal : < 342 pg/mL Estradiol reference ranges vary by gestational period: First trimester : 154 to 3243 pg/mL Second trimester : 1561 to 34520 pg/mL Third trimester : 8285 to >60018 pg/mL Post-menopausal Estradiol reference range: < 41 pg/mL Reference: 1. Estradiol - E2 (Estradiol III) [package insert V 3.0 [place]]. [facility], [place], [place], February 2016. Performed By: #### 2 243-4 #### [facility] CLIA [id number] [facility] [place] [address] [place] Follicle Diameter USon 10-21 Indication Follicle monitoring Impression Right Ovary: Follicle(s): 1. Size 12.9 mm x 9.5 mm. Mean 11.2 mm. Vol 0.610 cm 2. Size 13.9 mm x 10.9 mm. Mean 12.4 mm. Vol 0.857 cm 3. Size 12.9 mm x 10.9 mm. Mean 11.9 mm. Vol 0.806 cm # 20 antral follicles < 10 mm Left Ovary: Follicle(s): 1. Size 12.5 mm x 11.3 mm. Mean 11.9 mm. Vol 0.839 cm 2. Size 12.0 mm x 8.8 mm. Mean 10.4 mm. Vol 0.483 cm 3. Size 13.9 mm x 14.6 mm. Mean 14.2 mm. Vol 1.478 cm 4. Size 17.6 mm x 10.4 mm. Mean 14.0 mm. Vol 0.994 cm 5. Size 9.1 mm x 15.0 mm. Mean 12.0 mm. Vol 0.653 cm #18 antral follicles < 10 mm Recommendations Follow up as clinically indicated. Method Transvaginal ultrasound examination. 3D ultrasound examination Uterus Uterus: Visualized Uterus position: anteverted Endometrium: three-layer pattern Endometrial thickness, total 7.2 mm Right Ovary Rt ovary: Visualized Rt ovarian follicle(s): Follicles identified Rt ovarian follicle D1 12.9 mm Rt ovarian follicle D2 9.5 mm Rt ovarian follicle mean 11.2 mm Rt ovarian follicle vol 0.610 cm Rt ovarian follicle D1 13.9 mm Rt ovarian follicle D2 10.9 mm Rt ovarian follicle mean 12.4 mm Rt ovarian follicle vol 0.857 cm Rt ovarian follicle D1 12.9 mm Rt ovarian follicle D2 10.9 mm Rt ovarian follicle mean 11.9 mm Rt ovarian follicle vol 0.806 cm Rt ovarian follicles other findings: # 20 antral follicles < 10 mm Left Ovary Lt ovary: Visualized Lt ovarian follicle(s): Follicles identified Lt ovarian follicle D1 12.5 mm Lt ovarian follicle D2 11.3 mm Lt ovarian follicle mean 11.9 mm Lt ovarian follicle vol 0.839 cm Lt ovarian follicle D1 12.0 mm Lt ovarian follicle D2 8.8 mm Lt ovarian follicle mean 10.4 mm Lt ovarian follicle vol 0.483 cm Lt ovarian follicle D1 13.9 mm Lt ovarian follicle D2 14.6 mm Lt ovarian follicle mean 14.2 mm Lt ovarian follicle vol 1.478 cm Lt ovarian follicle D1 17.6 mm Lt ovarian follicle D2 10.4 mm Lt ovarian follicle mean 14.0 mm Lt ovarian follicle vol 0.994 cm Lt ovarian follicle D1 9.1 mm Lt ovarian follicle D2 15.0 mm Lt ovarian follicle mean 12.0 mm Lt ovarian follicle vol 0.653 cm Lt ovarian follicles other findings: #18 antral follicles < 10 mm [place] Visualized. no free fluid visualized Performed By: Nilton Bates RDMS Read By: Michel Joseph M.D. MATERNAL MEDICINE [facility] Radiology Study observation (narrative) [facility] E[facility]adiol [facility] 10-19 E2 [Mass/Vol] 71 pg/mL High 8-37 [facility] Comment on above: Order Comment: Speci men Type: BLOOD SPECIMEN [facility]ing Facility: [facility] Address: [address] [place] [address] Result Comment: This test is not suitable for patients receiving treatment with the drug Fulvestrant (Faslodex). The drug causes an interference leading to falsely elevated estradiol results. Menstrual cycle Estradiol reference ranges: Follicular : < 234 pg/mL Ovulation : 41 to 398 pg/mL Luteal : < 342 pg/mL Estradiol reference ranges vary by gestational period: First trimester : 154 to 3243 pg/mL Second trimester : 1561 to 82934 pg/mL Third trimester : 8285 to >77695 pg/mL Post-menopausal Estradiol reference range: < 41 pg/mL Reference: 1. Estradiol - E2 (Estradiol III) [package insert V 3.0 [place]]. [facility], [place], [place], February 2016. Performed By: #### 2 243-4 #### [facility] CLIA [id number] [address] [place] Follicle Diameter USon 10-19 Indication Lining Assessment Impression Left Ovary: Follicle(s): 1. Size 13.7 mm x 13.0 mm. Mean 13.3 mm. Vol 1.205 cm 2. Size 13.1 mm x 11.0 mm. Mean 12.1 mm. Vol 0.834 cm 20 + antral follicles < 10 mm Recommendations We recommend a follow-up scan only as clinically indicated Method Transvaginal ultrasound examination. 3D ultrasound examination Uterus Uterus: Visualized Uterus position: anteverted Description of uterine malformations: normally shaped Myometrium: heterogeneous Endometrium: three-layer pattern Cervix details: cystic lesions identified suggesting superficial Nabothian cysts Endometrial thickness, total 6.4 mm Right Ovary Rt ovary: Visualized Outline: smooth Rt ovary other findings: 20 + antral follicles < 10 mm Left Ovary Lt ovary: Visualized Outline: smooth Lt ovarian follicle(s): Follicles identified Lt ovarian follicle D1 13.7 mm Lt ovarian follicle D2 13.0 mm Lt ovarian follicle mean 13.3 mm Lt ovarian follicle vol 1.205 cm Lt ovarian follicle D1 13.1 mm Lt ovarian follicle D2 11.0 mm Lt ovarian follicle mean 12.1 mm Lt ovarian follicle vol 0.834 cm Lt ovarian follicles other findings: 20 + antral follicles < 10 mm [place] Visualized. no free fluid visualized Performed By: Anali Vera RDMS Read By: Radha Gilliam M.D. MATERNAL MEDICINE [facility] Radiology Study observation (narrative) [facility] Estradiol [facility] 10-12 E2 [Mass/Vol] 47 pg/mL High 8-37 [facility] Comment on above: Order Comment: Speci men Type: BLOOD SPECIMEN [facility]ing Facility: [facility] Address: [address] [place] [address] Result Comment: This test is not suitable for patients receiving treatment with the drug Fulvestrant (Faslodex). The drug causes an interference leading to falsely elevated estradiol results. Menstrual cycle Estradiol reference ranges: Follicular : < 234 pg/mL Ovulation : 41 to 398 pg/mL Luteal : < 342 pg/mL Estradiol reference ranges vary by gestational period: First trimester : 154 to 3243 pg/mL Second trimester : 1561 to 56644 pg/mL Third trimester : 8285 to >23667 pg/mL Post-menopausal Estradiol reference range: < 41 pg/mL Reference: 1. Estradiol - E2 (Estradiol III) [package insert V 3.0 [place]]. [facility], [place], [place], February 2016. Performed By: #### 2 243-4 #### [facility] CLIA [id number] [facility] [place] [address] [place] Follicle Diameter USon 10-12 Indication Lining Assessment Impression Right Ovary: Size 47 mm x 34 mm x 24 mm Cyst(s): Size 20 mm x 15 mm x 16 mm. Hemorrhagic cyst with reticular pattern/clot Left Ovary: Size 43 mm x 39 mm x 31 mm Cyst(s): Size 18 mm x 16 mm x 20 mm. Hemorrhagic cyst with reticular pattern/clot Recommendations Additional follow-up as clinically indicated. Method Transvaginal ultrasound examination. 3D ultrasound examination Uterus Uterus: Visualized Uterus position: anteverted Endometrium: single Endometrial thickness, total 6.0 mm Right Ovary Rt ovary: Visualized Rt ovary morphology: premenopausal polycystic Rt ovary D1 47 mm Rt ovary D2 34 mm Rt ovary D3 24 mm Rt ovary mean 34.9 mm Rt ovary Vol 19.9 cm Rt ovarian cyst(s): Cysts identified Rt ovarian cyst D1 20 mm Rt ovarian cyst D2 15 mm Rt ovarian cyst D3 16 mm Rt ovarian cyst mean 17.0 mm Rt ovarian cyst vol 2.513 cm Rt ovarian cyst findings: Hemorrhagic cyst with reticular pattern/clot Rt ovary other findings: 20 + < 10 mm Left Ovary Lt ovary: Visualized Lt ovary morphology: premenopausal polycystic Lt ovary D1 43 mm Lt ovary D2 39 mm Lt ovary D3 31 mm Lt ovary mean 37.3 mm Lt ovary Vol 26.5 cm Lt ovarian cyst(s): Cysts identified Lt ovarian cyst D1 18 mm Lt ovarian cyst D2 16 mm Lt ovarian cyst D3 20 mm Lt ovarian cyst mean 18.0 mm Lt ovarian cyst vol 3.016 cm Lt ovarian cyst findings: Hemorrhagic cyst with reticular pattern/clot Lt ovary other findings: 20 + antral follicles < 10 mm [place] Visualized. no free fluid visualized Performed By: Chary Acevedo; MS Read By: Radha Gilliam M.D. MATERNAL MEDICINE [facility] Radiology Study observation (narrative) [facility] 10-10-2024 [facility] Telephone (REIBD) TIN ARIZMENDI ([id number]) 1985 F Date Time Provider Department 10/10/24 JOSEPH, MICHEL REIBD During your visit today, we recorded the following information about you: Greer Horton 10/10/2024 12:38 PM Signed Needs to schedule so Mary Ann Kirkland RN 10/10/2024 3:58 PM Signed Returned patient. Today is cycle day 2. Needs to baseline for SO. Episode for SO #10 created. Per EGR 09/21/24 For SO, same protocol as the last cycle (SO#9) Location: [place] Visit type: Baseline, SO us/e2 Date: 10/12 @ 0720 Mary Ann Kirkland RN October 10, 2024 3:50 PM Allergies As of Date: 10/10/2024 Noted Allergy Reaction AMOXACILLIN (AMOXICILLIN) 03/09/2023 4 - Hives Comments: Skin test is negative. Challenge pending PENICILLINS 10/15/2020 4 - Hives Date Reviewed: 09/12/2024 Reviewed by: Nam Arias RN - Fully Assessed Reason for Visit: needs to schedule us for so cycle [Other] Prescriptions as of 10/10/2024 - metFORMIN (GLUCOPHAGE) 500 mg tablet Take 1 tablet by mouth two times a day. - chorionic gonadotropin (PREGNYL) 10,000 unit solr 10,000 Units once daily. 10,000 Units as directed. Inject 10,000 units for HCG trigger - Follitropin Beta (FOLLISTIM AQ) 300 unit/0.36 mL Inject 200 Units subcutaneously once daily - dexAMETHasone (DECADRON) 0.5 mg tablet Take 1 tablet by mouth once daily. - Norethin Imsael-Eth Estrad-FE (MICROGESTIN FE) 1.5 mg-30 mcg (21)/75 mg (7) tablet Take 1 tablet by mouth once daily. - ethynodiol diacetate-ethinyl estradiol 1 mg-35 mcg (ZOVIA 35E, 28,) 1-35 mg-mcg per tablet Start day 1 of full flow period. Take 1 pill by mouth daily at bedtime, active pills only. Skip or throw out placebo week. - PNV no.95/ferrous fum/folic ac ( ORAL) Take by mouth. - medroxyPROGESTERone (PROVERA) 10 mg tablet Take 1 tablet by mouth two times a day. - letrozole (FEMARA) 2.5 mg tablet Take 4 tablets by mouth once daily. - metFORMIN (GLUCOPHAGE) 850 mg tablet Take 1 tablet by mouth two times a day. - Follitropin Ila (GONAL-F RFF REDI-JECT) 300/0.5 unit/mL pnij Inject 75 Units subcutaneously once daily. - dexAMETHasone (DECADRON) 0.5 mg tablet Take 1 tablet by mouth once daily. - metFORMIN (GLUCOPHAGE) 850 mg tablet Take 1 tablet by mouth twice daily with meals. - spironolactone (ALDACTONE) 25 mg tablet Take 25 mg by mouth once daily. On hold for - bupropion HCl (BUPROBAN ORAL) Take 150 mg by mouth once daily. Problem List As Of Date 10/10/2024 Noted Resolved High blood pressure [I10] 10/16/2021 Diagnosed: 10/30/2023 Pre-op exam [Z01.818] 10/30/2023 Class 3 severe obesity due to excess calories w*10/30/2023 Missed [O02.1] 10/30/2023 Encounter Status:Closed by MARY ANN KIRKLAND on 10/10/24 [facility] [id number] 09-21-2024 HNO ID: [id number] Author: CAROLINA RAMIREZ MD Service: ? Author Type: Resident Type: Filed: 09/21/2024 13:55 Note Text: Trigger shot 09/20 with plan for timed intercourse 09/21 and 09/22. Patient with questions regarding selective reduction, would be amenable if necessary in the case of higher order multiples. Risk of multiples reviewed with patient. Regarding next steps, patient reports that IUI and IVF not yet in her budget if she does not get following this next trigger. Discussed cost of IUI. Will also discuss with billing team for financial assistance and other resources. Patient reports she will consider IUI. Also reviewed recommendation for repeat semen analysis for patient's partner if any changes to partner's health. Patient states that partner had another semen analysis done at [facility] in 2015 in addition to another one here in 2022. She reports they were normal, however she is uncertain whether she has access to these records and she will try to obtain them. Normal [facility] CONSULT PROGon 09-21-2024 CONSULT PROG HNO ID: [id number] Author: MICHEL JOSEPH MD Service: ? Author Type: Physician Type: Consult Progress Note Filed: 09/21/2024 13:55 Note Text: [facility] Date: 09/21/2024 Tin Arizmendi is a 38 year old female presenting with the following history: HISTORY OF PRESENT ILLNESS: Tin Arizmendi is a 38 year old female with infertility Just completed SO #9, and we had extensive discussion about proceeding given the 5+ larger follicles seen on scan. See my note below. Since that phone call, if higher order multiples, they discussed as a couple and are open to selective reduction if deemed medically necessary/recommended 09/20/24 Phone Call I called and spoke to the patient. I reviewed the results from testing today. I provided my niki concerns about higher order multiples given the number of follicles present. However, putting in context her age, her 8 prior unsuccessful cycles, and other factors contributing to infertility, I do feel that it is reasonable for her to take on the risks of proceeding, provided that she is well informed before making the choice to proceed. Her absolute risk of multiples is likely ~4% if we extrapolate from IUI data, and relative risk if to be ~20%. We also discussed selective reduction in the unlikely event of higher order multiples. For now she would like to proceed with trigger but she will think about this discussion and will use contraception or abstinence should she change her mind and decide to avoid this cycle. Michel Joseph MD September 20, 2024 12:59 PM Obstetric History T0 L0 SAB0 IAB1 Ectopic0 Multiple0 Live Births0 MENSTRUAL HISTORY: Menarche Age: 14 Length of Cycle: 35-40 Irregular Days: 7 Menstrual Flow: Light Menstrual Symptoms: Cramping,Bloating,Jana ast Tenderness,No symptoms Patient's last menstrual period was 05/06/2024 (exact date). PAST MEDICAL HISTORY Diagnosis Date Abnormal Pap smear of cervix Complication of anesthesia vomiting after waking up Essential hypertension Hirsutism PCOS (polycystic ovarian syndrome) Sleep apnea 2020 PAST SURGICAL HISTORY Procedure Laterality Date COLPOSCOPY INDUCED DILATION AND CURETTAGE 10/30/2023 DILATION AND CURETTAGE, SUCTION MISSED , 1ST TRIMESTER LITHOTRIPSY XTRCORP SHOCK WAVE 04/14/2005 Lithotripsy NEPHROLITHOTOMY REMOVAL STAGE 1 2005 NEPHROLITHOTOMY REMOVAL STAGE 1 2014 REMOVAL GALLBLADDER 2017 FAMILY HISTORY Problem Relation Age of Onset Diabetes Mother other (pcos) Mother Diabetes Father Obstructive Sleep Apnea Maternal Grandfather Stroke Maternal Grandfather Ovarian cancer No Family History Cervical Cancer No Family History Breast Cancer No Family History Diabetes Maternal Grandfather Diabetes Paternal Grandmother Cancer Maternal Grandmother lung-smoker Cancer Paternal Grandfather stomach OCCUPATION/EXERCISE: Occupation: [employer] Exercise: stairs Partner Information Partner's Name: David Arizmendi Partner's : 1985 Partner's Partner's Ethnicity: NOT or Partner's Race: White 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 10,000 Units as directed. Inject 10,000 units for HCG trigger Follitropin Beta (FOLLISTIM AQ) 300 unit/0.36 mL Inject 200 Units subcutaneously once daily metFORMIN (GLUCOPHAGE) 500 mg tablet Take 1 tablet by mouth two times a day. dexAMETHasone (DECADRON) 0.5 mg tablet Take 1 tablet by mouth once daily. Norethin Misael-Eth Estrad-FE (MICROGESTIN FE) 1.5 mg-30 mcg (21)/75 mg (7) tablet Take 1 tablet by mouth once daily. ethynodiol diacetate-ethinyl estradiol 1 mg-35 mcg (ZOVIA 35E, 28,) 1-35 mg-mcg per tablet Start day 1 of full flow period. Take 1 pill by mouth daily at bedtime, active pills only. Skip or throw out placebo week. PNV no.95/ferrous fum/folic ac ( ORAL) Take by mouth. medroxyPROGESTERone (PROVERA) 10 mg tablet Take 1 tablet by mouth two times a day. (Patient not taking: Reported on 05/13/2024) letrozole (FEMARA) 2.5 mg tablet Take 4 tablets by mouth once daily. metFORMIN (GLUCOPHAGE) 850 mg tablet Take 1 tablet by mouth two times a day. Follitropin Ila (GONAL-F RFF REDI-JECT) 300/0.5 unit/mL pnij Inject 75 Units subcutaneously once daily. dexAMETHasone (DECADRON) 0.5 mg tablet Take 1 tablet by mouth once daily. metFORMIN (GLUCOPHAGE) 850 mg tablet Take 1 tablet by mouth twice daily with meals. spironolactone (ALDACTON (more content not included)... Normal [facility] Estradiol SerPl-mCncon 09-20 E2 [Mass/Vol] 481 pg/mL High 8-37 [facility] Comment on above: Order Comment: Speci men Type: BLOOD SPECIMEN Ordering Facility: [facility] Address: [address], [place] [address] Result Comment: This test is not suitable for patients receiving treatment with the drug Fulvestrant (Faslodex). The drug causes an interference leading to falsely elevated estradiol results. Menstrual cycle Estradiol reference ranges: Follicular : < 234 pg/mL Ovulation : 41 to 398 pg/mL Luteal : < 342 pg/mL Estradiol reference ranges vary by gestational period: First trimester : 154 to 3243 pg/mL Second trimester : 1561 to 69547 pg/mL Third trimester : 8285 to >18997 pg/mL Post-menopausal Estradiol reference range: < 41 pg/mL Reference: 1. Estradiol - E2 (Estradiol III) [package insert V 3.0 [place]]. [employer], [place], [place], February 2016. Performed By: #### 2 243-4 #### [facility] CLIA [id number] [place], [place] [id number] [place] [address] [place] Follicle Diameter US 09-20 Indication Follicle monitoring, Lining Impression Right Ovary: Follicle(s): 1. Size 24.3 mm x 15.7 mm. Mean 20.0 mm. Vol 3.157 cm 2. Size 19.2 mm x 11.3 mm. Mean 15.2 mm. Vol 1.283 cm 3. Size 18.0 mm x 14.2 mm. Mean 16.1 mm. Vol 1.891 cm 17antral follicles < 10 mm Left Ovary: Follicle(s): 1. Size 20.2 mm x 14.8 mm. Mean 17.5 mm. Vol 2.320 cm 2. Size 18.9 mm x 16.6 mm. Mean 17.8 mm. Vol 2.735 cm 3. Size 18.3 mm x 16.9 mm. Mean 17.6 mm. Vol 2.731 cm 4. Size 12.1 mm x 13.1 mm. Mean 12.6 mm. Vol 0.997 cm 20 antral follicles < 10 mm Recommendations Follow up as clinically indicated. Method Transvaginal ultrasound examination. 3D ultrasound examination Uterus Uterus: Visualized Uterus position: anteverted, axial Endometrium: three-layer pattern Endometrial thickness, total 8.5 mm Right Ovary Rt ovary: Visualized Rt ovarian follicle(s): Follicles identified Rt ovarian follicle D1 24.3 mm Rt ovarian follicle D2 15.7 mm Rt ovarian follicle mean 20.0 mm Rt ovarian follicle vol 3.157 cm Rt ovarian follicle D1 19.2 mm Rt ovarian follicle D2 11.3 mm Rt ovarian follicle mean 15.2 mm Rt ovarian follicle vol 1.283 cm Rt ovarian follicle D1 18.0 mm Rt ovarian follicle D2 14.2 mm Rt ovarian follicle mean 16.1 mm Rt ovarian follicle vol 1.891 cm Rt ovarian follicles other findings: 17antral follicles < 10 mm Left Ovary Lt ovary: Visualized Lt ovarian follicle(s): Follicles identified Lt ovarian follicle D1 20.2 mm Lt ovarian follicle D2 14.8 mm Lt ovarian follicle mean 17.5 mm Lt ovarian follicle vol 2.320 cm Lt ovarian follicle D1 18.9 mm Lt ovarian follicle D2 16.6 mm Lt ovarian follicle mean 17.8 mm Lt ovarian follicle vol 2.735 cm Lt ovarian follicle D1 18.3 mm Lt ovarian follicle D2 16.9 mm Lt ovarian follicle mean 17.6 mm Lt ovarian follicle vol 2.731 cm Lt ovarian follicle D1 12.1 mm Lt ovarian follicle D2 13.1 mm Lt ovarian follicle mean 12.6 mm Lt ovarian follicle vol 0.997 cm Lt ovarian follicles other findings: 20 antral follicles < 10 mm Cul [place] Sac Visualized. no free fluid visualized Performed By: Chary Acevedo; Read By: Zhen Sears M.D. MATERNAL MEDICINE [facility] Radiology Study observation (narrative) [facility] Estradiol [facility] 09-19 E2 [Mass/Vol] 347 pg/mL High 8-37 [facility] Comment on above: Order Comment: Speci men Type: BLOOD SPECIMEN Ordering Facility: [facility] Address: [address], [place] [id number] Result Comment: This test is not suitable for patients receiving treatment with the drug Fulvestrant (Faslodex). The drug causes an interference leading to falsely elevated estradiol results. Menstrual cycle Estradiol reference ranges: Follicular : < 234 pg/mL Ovulation : 41 to 398 pg/mL Luteal : < 342 pg/mL Estradiol reference ranges vary by gestational period: First trimester : 154 to 3243 pg/mL Second trimester : 1561 to 37106 pg/mL Third trimester : 8285 to >34089 pg/mL Post-menopausal Estradiol reference range: < 41 pg/mL Reference: 1. Estradiol - E2 (Estradiol III) [package insert V 3.0 [place]]. [employer], [place], [place], February 2016. Performed By: #### 2 243-4 #### [facility] CLIA [id number] [facility]. [address] [place] Follicle Diameter USon 09-19 Indication Follicle monitoring Impression Right Ovary: Follicle(s): 1. Size 19.6 mm x 15.0 mm. Mean 17.3 mm. Vol 2.305 cm 2. Size 16.1 mm x 10.0 mm. Mean 13.0 mm. Vol 0.836 cm 3. Size 13.9 mm x 12.0 mm. Mean 13.0 mm. Vol 1.049 cm 17 antral follicles < 10 mm Left Ovary: Follicle(s): 1. Size 16.6 mm x 13.8 mm. Mean 15.2 mm. Vol 1.647 cm 2. Size 14.1 mm x 14.5 mm. Mean 14.3 mm. Vol 1.508 cm 3. Size 18.0 mm x 12.4 mm. Mean 15.2 mm. Vol 1.454 cm 4. Size 9.6 mm x 8.8 mm. Mean 9.2 mm. Vol 0.389 cm 20 antral follicles < 10 mm Recommendations Follow up as clinically indicated. Method Transvaginal ultrasound examination. 3D ultrasound examination Uterus Uterus: Visualized Uterus position: anteverted Endometrium: three-layer pattern Right Ovary Rt ovary: Visualized Rt ovarian follicle(s): Follicles identified Rt ovarian follicle D1 19.6 mm Rt ovarian follicle D2 15.0 mm Rt ovarian follicle mean 17.3 mm Rt ovarian follicle vol 2.305 cm Rt ovarian follicle D1 16.1 mm Rt ovarian follicle D2 10.0 mm Rt ovarian follicle mean 13.0 mm Rt ovarian follicle vol 0.836 cm Rt ovarian follicle D1 13.9 mm Rt ovarian follicle D2 12.0 mm Rt ovarian follicle mean 13.0 mm Rt ovarian follicle vol 1.049 cm Rt ovarian follicles other findings: 17 antral follicles < 10 mm Left Ovary Lt ovary: Visualized Lt ovarian follicle(s): Follicles identified Lt ovarian follicle D1 16.6 mm Lt ovarian follicle D2 13.8 mm Lt ovarian follicle mean 15.2 mm Lt ovarian follicle vol 1.647 cm Lt ovarian follicle D1 14.1 mm Lt ovarian follicle D2 14.5 mm Lt ovarian follicle mean 14.3 mm Lt ovarian follicle vol 1.508 cm Lt ovarian follicle D1 18.0 mm Lt ovarian follicle D2 12.4 mm Lt ovarian follicle mean 15.2 mm Lt ovarian follicle vol 1.454 cm Lt ovarian follicle D1 9.6 mm Lt ovarian follicle D2 8.8 mm Lt ovarian follicle mean 9.2 mm Lt ovarian follicle vol 0.389 cm Lt ovarian follicles other findings: 20 antral follicles < 10 mm Cul [place] Sac Visualized. no free fluid visualized Performed By: Chary Acevedo; RDMS Read By: Odalis Parikh M.D. MATERNAL MEDICINE [facility] Radiology Study observation (narrative) [facility] Estradiol [facility] 09-15 E2 [Mass/Vol] 51 pg/mL [address] Comment on above: Order Comment: Speci men Type: BLOOD SPECIMEN Ordering Facility: [facility] Address: [address] [place] [address] Result Comment: This test is not suitable for patients receiving treatment with the drug Fulvestrant (Faslodex). The drug causes an interference leading to falsely elevated estradiol results. Menstrual cycle Estradiol reference ranges: Follicular : < 234 pg/mL Ovulation : 41 to 398 pg/mL Luteal : < 342 pg/mL Estradiol reference ranges vary by gestational period: First trimester : 154 to 3243 pg/mL Second trimester : 1561 to 73138 pg/mL Third trimester : 8285 to >71321 pg/mL Post-menopausal Estradiol reference range: < 41 pg/mL Reference: 1. Estradiol - E2 (Estradiol III) [package insert V 3.0 [place]]. [employer], [place], [place], February 2016. Performed By: #### 1 0501-5, 2839-9, 2243-4 #### [facility] CLIA [id number] [facility] [place] [address] [place] Follicle Diameter USon 09-15 Indication Follicle monitoring and. Lining Assessment Impression Right Ovary: Size 14 mm x 9 mm Follicle(s): 1. Size 14.7 mm x 8.7 mm. Mean 11.7 mm. Vol 0.585 cm 2. Size 12.4 mm x 6.9 mm. Mean 9.6 mm. Vol 0.305 cm 20 antral follicles < 10 mm Left Ovary: Follicle(s): 1. Size 13.5 mm x 9.6 mm. Mean 11.5 mm. Vol 0.655 cm 2. Size 10.1 mm x 9.1 mm. Mean 9.6 mm. Vol 0.442 cm 20 + antral follicles < 10 mm Recommendations Follow up as clinically indicated. Method Transvaginal ultrasound examination. 3D ultrasound examination, Transvaginal ultrasound examination. 3D ultrasound examination Uterus Uterus: Visualized Uterus position: anteverted Description of uterine malformations: none Endometrium: three-layer pattern Endometrial thickness, total 5.1 mm Right Ovary Rt ovary: Visualized Rt ovary D1 14 mm Rt ovary D3 9 mm Rt ovary mean 11.5 mm Rt ovarian follicle(s): Follicles identified Rt ovarian follicle D1 14.7 mm Rt ovarian follicle D2 8.7 mm Rt ovarian follicle mean 11.7 mm Rt ovarian follicle vol 0.585 cm Rt ovarian follicle D1 12.4 mm Rt ovarian follicle D2 6.9 mm Rt ovarian follicle mean 9.6 mm Rt ovarian follicle vol 0.305 cm Rt ovarian follicles other findings: 20 antral follicles < 10 mm Left Ovary Lt ovary: Visualized Lt ovarian follicle(s): Follicles identified Lt ovarian follicle D1 13.5 mm Lt ovarian follicle D2 9.6 mm Lt ovarian follicle mean 11.5 mm Lt ovarian follicle vol 0.655 cm Lt ovarian follicle D1 10.1 mm Lt ovarian follicle D2 9.1 mm Lt ovarian follicle mean 9.6 mm Lt ovarian follicle vol 0.442 cm Lt ovarian follicles other findings: 20 + antral follicles < 10 mm Cul de Sac Visualized. no free fluid visualized Performed By: Chary Acevedo; [facility] Read By: Odalis Parikh M.D. MATERNAL MEDICINE [facility] Radiology Study observation (narrative) [facility] Estradiol SerPl-mCncon 09-12 E2 [Mass/Vol] pg/mL Normal 8-37 [facility] Comment on above: Order Comment: Speci men Type: BLOOD SPECIMEN Ordering Facility: [facility] Address: [facility] [place] [address] Result Comment: This test is not suitable for patients receiving treatment with the drug Fulvestrant (Faslodex). The drug causes an interference leading to falsely elevated estradiol results. Menstrual cycle Estradiol reference ranges: Follicular : < 234 pg/mL Ovulation : 41 to 398 pg/mL Luteal : < 342 pg/mL Estradiol reference ranges vary by gestational period: First trimester : 154 to 3243 pg/mL Second trimester : 1561 to 83699 pg/mL Third trimester : 8285 to >21535 pg/mL Post-menopausal Estradiol reference range: < 41 pg/mL Reference: 1. Estradiol - E2 (Estradiol III) [package insert V 3.0 [place]]. [employer] [facility], [place], [place], February 2016. Performed By: #### 1 0501-5, 2839-9, 2243-4 #### [facility] CLIA [id number] [address] [place] Follicle Diameter USon 09-12 Indication SO Baseline TV Impression Right Ovary: Follicle(s): 20 antral follicles < 10 mm Left Ovary: Follicle(s): 20+ antral follicles < 10 mm Recommendations Follow up as clinically indicated. Menstrual History LMP on 09/07/2024 Method Transvaginal ultrasound examination. 3D ultrasound examination Uterus Uterus: Visualized Uterus position: anteverted Description of uterine malformations: normally shaped Myometrium: heterogeneous Endometrium: single layer Cervix details: cystic lesions identified suggesting superficial Nabothian cysts Endometrial thickness, total 6.2 mm Right Ovary Rt ovary: Visualized Rt ovarian follicle(s): Follicles identified Rt ovarian follicles other findings: 20 antral follicles < 10 mm Left Ovary Lt ovary: Visualized Lt ovarian follicle(s): Follicles identified Lt ovarian follicles other findings: 20+ antral follicles < 10 mm Cul de Sac Visualized. no free fluid visualized Performed By: Callie Ceja RDMS Read By: Odalis Parikh M.D. MATERNAL MEDICINE [facility] Radiology Study observation (narrative) [facility] LH SerPl-aCncon 09-12-2024 Lutropin Qn 10.9 m[IU]/mL Normal See comment [facility] Comment on above: Order Comment: Speci men Type: BLOOD SPECIMEN Ordering Facility: [facility] Address: [address] [place] [address] Result Comment: Refe rence range: Follicular: 2.4-12.6 mIU/mL Midcycle: 14.0-95.6 mIU/mL Luteal: 1.0-11.4 mIU/mL Post Sylwia: 7.7-58.5 mIU/mL Performed By: #### 1 0501-5, 91899, 3-4 #### [facility] CLIA [id number] [address] Progest SerPl-mCncon 024 Progesterone [Mass/Vol] 0.3 ng/mL Normal See comment [facility] Comment on above: Order Comment: Speci men Type: BLOOD SPECIMEN Ordering Facility: [facility] Address: [address] [place] [address] Result Comment: Mens trual Cycle Progesterone Reference Ranges: Follicular: <1.0 ng/mL Ovulation: <12.1 ng/mL Luteal: 1.8 to 23.9 ng/mL. Progesterone Reference Ranges vary by gestational period: First Trimester: 11.0 to 44.3 ng/mL Second Trimester: 25.4 to 83.3 ng/mL Third Trimester: 58.7 to 214 ng/mL Post menopausal Progesterone: <0.5 ng/mL Reference: 1. Progesterone (Progesterone III) [package insert V 1.0 [place]]. [employer], [place], [place]. June 2015. Performed By: #### 1 0501-5, 99399, 2243-4 #### [facility] CLIA [id number] [facility] [place] [address] [facility] CNPTish 09-08-2024 CNPN Telephone (REIBD) TIN ARIZMENDI ([id number]) 1985 F Date Time Provider Department 09/08/24 MICHEL JOSEPH During your visit today, we recorded the following information about you: Nupur Coughlin Yancy 09/09/2024 8:12 AM Signed OOT til Thursday Ivy Gardner RN 09/09/2024 9:07 AM Signed Pt calling to schedule baseline for SO cycle. Ok to start per . Baseline scheduled 09/12 at 7 Jones. Ivy Gardner RN September 09, 2024 9:03 AM Allergies As of Date: 09/08/2024 Noted Allergy Reaction AMOXACILLIN (AMOXICILLIN) 03/09/2023 4 - Hives Comments: Skin test is negative. Challenge pending PENICILLINS 10/15/2020 4 - Hives Date Reviewed: 08/15/2024 Reviewed by: Nam Arias, LAUREN - Fully Assessed Reason for Visit: Appointment [186] LMP 09/07/24/ set up medicated cycle [Other] Called back today is day 3/ set up super ov [Other] Primary Visit Diagnosis:Female infertility [N97.9] Order(s):PROGESTERONE [SQPROG] Order #: [id number] STANDING ESTRADIOL-17B BLD [SQE2] Order #: [id number] STANDING LUTEINIZING HORMONE [SQLH] Order #: [id number] STANDING FOLLICULAR US WHI [[id number]] Order #: [id number]: 1 STANDING chorionic gonadotropin (PREGNYL) 10,000 unit solr10,000 Units once daily. 10,000 Units as directed. Inject 10,000 units for HCG triggerDisp: 1 EachRfl: 1 Prescriptions as of 09/09/2024 - chorionic gonadotropin (PREGNYL) 10,000 unit solr 10,000 Units once daily. 10,000 Units as directed. Inject 10,000 units for HCG trigger - Follitropin Beta (FOLLISTIM AQ) 300 unit/0.36 mL Inject 200 Units subcutaneously once daily - metFORMIN (GLUCOPHAGE) 500 mg tablet Take 1 tablet by mouth two times a day. - dexAMETHasone (DECADRON) 0.5 mg tablet Take 1 tablet by mouth once daily. - Norethin Misael-Eth Estrad-FE (MICROGESTIN FE) 1.5 mg-30 mcg (21)/75 mg (7) tablet Take 1 tablet by mouth once daily. - ethynodiol diacetate-ethinyl estradiol 1 mg-35 mcg (ZOVIA , ,) 1-35 mg-mcg per tablet Start day 1 of full flow period. Take 1 pill by mouth daily at bedtime, active pills only. Skip or throw out placebo week. - PNV no.95/ferrous fum/folic ac ( ORAL) Take by mouth. - medroxyPROGESTERone (PROVERA) 10 mg tablet Take 1 tablet by mouth two times a day. - letrozole (FEMARA) 2.5 mg tablet Take 4 tablets by mouth once daily. - metFORMIN (GLUCOPHAGE) 850 mg tablet Take 1 tablet by mouth two times a day. - Follitropin Ila (GONAL-F RFF REDI-JECT) 300/0.5 unit/mL pnij Inject 75 Units subcutaneously once daily. - dexAMETHasone (DECADRON) 0.5 mg tablet Take 1 tablet by mouth once daily. - metFORMIN (GLUCOPHAGE) 850 mg tablet Take 1 tablet by mouth twice daily with meals. - spironolactone (ALDACTONE) 25 mg tablet Take 25 mg by mouth once daily. On hold for - bupropion HCl (BUPROBAN ORAL) Take 150 mg by mouth once daily. Problem List As Of Date 09/08/2024 Noted Resolved High blood pressure [I10] 10/16/2021 Diagnosed: 10/30/2023 Pre-op exam [Z01.818] 10/30/2023 Class 3 severe obesity due to excess calories w*10/30/2023 Missed [O02.1] 10/30/2023 Prescriptions ordered this encounter Disp Refills Start End CHORIONIC GONADOTROPIN, HUMAN 10,000* 1 Ea* 1 09/09/2024 Route: OTHER Si,000 Units once daily. 10,000 Units as directed. Inject 10,000 units for HCG trigger Medications Discontinued During This Encounter Prescriptions - chorionic gonadotropin (PREGNYL) 10,000 unit solr (Discontinued) 10,000 Units once daily. 10,000 Units as directed. Inject 10,000 units for HCG trigger Encounter Status:Closed by MICHEL JOSEPH on 09/09/24 [facility] CNNURSEon 08-17-2024 CNNURSE Nurse Visit (REIAV) TIN ARIZMENDI ([id number]) 1985 F Date Time Provider Department 08/17/24 7:30 AM RADHA GILLIAM During your visit today, we recorded the following information about you: Nam Arias RN 08/22/2024 11:44 AM Signed The patient is here today for follicular ultrasound and blood work. The patient reports no problems or complaints. Ultrasound and blood will be reviewed by the physician, the flow sheet will be updated and instructions will be communicated to the patient. Nam Arias RN Called patient with plan. No answer. LVM. Mychart sent. Nam Arias RN August 17, 2024 1:57 PM Referring Provider: MIGUEL LEVY [[id number]] Allergies As of Date: 08/17/2024 Noted Allergy Reaction AMOXACILLIN (AMOXICILLIN) 03/09/2023 4 - Hives Comments: Skin test is negative. Challenge pending PENICILLINS 10/15/2020 4 - Hives Date Reviewed: 08/15/2024 Reviewed by: Nam Arias RN - Fully Assessed Reason for Visit: Infertility [285] Visit Diagnosis:Female infertility [N97.9] Order(s):FOLLICULAR US WHI [2349511] Order #: [id number]. #:[id number] IEWPOINTQty: 1 Prescriptions as of 08/22/2024 - Follitropin Beta (FOLLISTIM AQ) 300 unit/0.36 mL Inject 200 Units subcutaneously once daily - metFORMIN (GLUCOPHAGE) 500 mg tablet Take 1 tablet by mouth two times a day. - dexAMETHasone (DECADRON) 0.5 mg tablet Take 1 tablet by mouth once daily. - Norethin Misael-Eth Estrad-FE (MICROGESTIN FE) 1.5 mg-30 mcg (21)/75 mg (7) tablet Take 1 tablet by mouth once daily. - ethynodiol diacetate-ethinyl estradiol 1 mg-35 mcg (ZOVIA E, 28,) 1-35 mg-mcg per tablet Start day 1 of full flow period. Take 1 pill by mouth daily at bedtime, active pills only. Skip or throw out placebo week. - chorionic gonadotropin (PREGNYL) 10,000 unit solr 10,000 Units once daily. 10,000 Units as directed. Inject 10,000 units for HCG trigger - PNV no.95/ferrous fum/folic ac ( ORAL) Take by mouth. - medroxyPROGESTERone (PROVERA) 10 mg tablet Take 1 tablet by mouth two times a day. - letrozole (FEMARA) 2.5 mg tablet Take 4 tablets by mouth once daily. - metFORMIN (GLUCOPHAGE) 850 mg tablet Take 1 tablet by mouth two times a day. - Follitropin Ila (GONAL-F RFF REDI-JECT) 300/0.5 unit/mL pnij Inject 75 Units subcutaneously once daily. - dexAMETHasone (DECADRON) 0.5 mg tablet Take 1 tablet by mouth once daily. - metFORMIN (GLUCOPHAGE) 850 mg tablet Take 1 tablet by mouth twice daily with meals. - spironolactone (ALDACTONE) 25 mg tablet Take 25 mg by mouth once daily. On hold for - bupropion HCl (BUPROBAN ORAL) Take 150 mg by mouth once daily. Problem List As Of Date 08/17/2024 Noted Resolved High blood pressure [I10] 10/16/2021 Diagnosed: 10/30/2023 Pre-op exam [Z01.818] 10/30/2023 Class 3 severe obesity due to excess calories w*10/30/2023 Missed [O02.1] 10/30/2023 Encounter Status:Closed by RADHA GILLIAM on 08/22/24 Normal [facility] Estradiol SerPl-mCncon 08-17 E2 [Mass/Vol] 131 pg/mL High 8-37 [facility] Comment on above: Order Comment: Speci men Type: BLOOD SPECIMEN Ordering Facility: [facility] Address: [address] [place] [address] Result Comment: This test is not suitable for patients receiving treatment with the drug Fulvestrant (Faslodex). The drug causes an interference leading to falsely elevated estradiol results. Menstrual cycle Estradiol reference ranges: Follicular : < 234 pg/mL Ovulation : 41 to 398 pg/mL Luteal : < 342 pg/mL Estradiol reference ranges vary by gestational period: First trimester : 154 to 3243 pg/mL Second trimester : 1561 to 94230 pg/mL Third trimester : 8285 to >39644 pg/mL Post-menopausal Estradiol reference range: < 41 pg/mL Reference: 1. Estradiol - E2 (Estradiol III) [package insert V 3.0 [place]]. [employer], [place], [place], February 2016. Performed By: #### 2 243-4 #### [facility] CLIA [id number] [facility] [place] [address] [place] Follicle Diameter USon 08-17 Indication Follicle monitoring Impression Right Ovary: Follicle(s): 1. Size 14.2 mm x 12.5 mm. Mean 13.3 mm. Vol 1.152 cm 2. Size 13.2 mm x 9.6 mm. Mean 11.4 mm. Vol 0.631 cm # antral follicles 24 < 10 mm Left Ovary: Follicle(s): 1. Size 17.2 mm x 19.0 mm. Mean 18.1 mm. Vol 2.925 cm 2. Size 12.4 mm x 13.3 mm. Mean 12.8 mm. Vol 1.064 cm 3. Size 12.7 mm x 9.6 mm. Mean 11.2 mm. Vol 0.615 cm 4. Size 12.7 mm x 8.8 mm. Mean 10.7 mm. Vol 0.510 cm # antral follicles 14 < 10 mm Recommendations Follow up as clinically indicated. Method Transvaginal ultrasound examination. 3D ultrasound examination Uterus Uterus: Visualized Uterus position: anteverted Endometrium: single layer Endometrial thickness, total 7.1 mm Right Ovary Rt ovary: Visualized Rt ovarian follicle(s): Follicles identified Rt ovarian follicle D1 14.2 mm Rt ovarian follicle D2 12.5 mm Rt ovarian follicle mean 13.3 mm Rt ovarian follicle vol 1.152 cm Rt ovarian follicle D1 13.2 mm Rt ovarian follicle D2 9.6 mm Rt ovarian follicle mean 11.4 mm Rt ovarian follicle vol 0.631 cm Rt ovarian follicles other findings: # antral [id number] < 10 mm Left Ovary Lt ovary: Visualized Lt ovarian follicle(s): Follicles identified Lt ovarian follicle D1 17.2 mm Lt ovarian follicle D2 19.0 mm Lt ovarian follicle mean 18.1 mm Lt ovarian follicle vol 2.925 cm Lt ovarian follicle D1 12.4 mm Lt ovarian follicle D2 13.3 mm Lt ovarian follicle mean 12.8 mm Lt ovarian follicle vol 1.064 cm Lt ovarian follicle D1 12.7 mm Lt ovarian follicle D2 9.6 mm Lt ovarian follicle mean 11.2 mm Lt ovarian follicle vol 0.615 cm Lt ovarian follicle D1 12.7 mm Lt ovarian follicle D2 8.8 mm Lt ovarian follicle mean 10.7 mm Lt ovarian follicle vol 0.510 cm Lt ovarian follicles other findings: # antral follicles 14 < 10 mm Cul de Sac Visualized. no free fluid visualized Performed By: Melodie Fitzgerald RDMS Read By: Radha Gilliam M.D. MATERNAL MEDICINE [facility] Radiology Study observation (narrative) [facility] Nurse Visit (MEGIAV) TIN ARIZMENDI ([id number]) 1985 F Date Time Provider Department 08/15/24 7:00 AM ODALIS PARIKH During your visit today, we recorded the following information about you: Nam Arias RN 08/15/2024 4:46 PM Signed The patient is here today for follicular ultrasound and blood work. The patient reports no problems or complaints. Ultrasound and blood will be reviewed by the physician, the flow sheet will be updated and instructions will be communicated to the patient. Nam Arias RN RN called patient, name and verified. Plan given for IVF cycle per physician, see flowsheet for details. Multiplicomt message sent. Medications reviewed and verified, instructions given. Patient denies any questions or concerns. Message sent to scheduling pool for next appt. Nam Arias RN August 15, 2024 1:39 PM Referring Provider: MIGUEL LEVY [[id number]] Allergies As of Date: 08/15/2024 Noted Allergy Reaction AMOXACILLIN (AMOXICILLIN) 03/09/2023 4 - Hives Comments: Skin test is negative. Challenge pending PENICILLINS 10/15/2020 4 - Hives Date Reviewed: 08/15/2024 Reviewed by: Nam Arias RN - Fully Assessed Reason for Visit: Infertility [285] Visit Diagnosis:Female infertility [N97.9] Order(s):FOLLICULAR [facility] [facility] [[id number]] Order #: [id number]. #:[id number] IEWPOINTQty: 1 Prescriptions as of 08/15/2024 - Follitropin Beta (FOLLISTIM AQ) 300 unit/0.36 mL Inject 200 Units subcutaneously once daily - metFORMIN (GLUCOPHAGE) 500 mg tablet Take 1 tablet by mouth two times a day. - dexAMETHasone (DECADRON) 0.5 mg tablet Take 1 tablet by mouth once daily. - Norethin Misael-Eth Estrad-FE (MICROGESTIN FE) 1.5 mg-30 mcg (21)/75 mg (7) tablet Take 1 tablet by mouth once daily. - ethynodiol diacetate-ethinyl estradiol 1 mg-35 mcg (ZOVIA 1/35E, 28,) 1-35 mg-mcg per tablet Start day 1 of full flow period. Take 1 pill by mouth daily at bedtime, active pills only. Skip or throw out placebo week. - chorionic gonadotropin (PREGNYL) 10,000 unit solr 10,000 Units once daily. 10,000 Units as directed. Inject 10,000 units for HCG trigger - PNV no.95/ferrous fum/folic ac ( ORAL) Take by mouth. - medroxyPROGESTERone (PROVERA) 10 mg tablet Take 1 tablet by mouth two times a day. - letrozole (FEMARA) 2.5 mg tablet Take 4 tablets by mouth once daily. - metFORMIN (GLUCOPHAGE) 850 mg tablet Take 1 tablet by mouth two times a day. - Follitropin Ila (GONAL-F RFF REDI-JECT) 300/0.5 unit/mL pnij Inject 75 Units subcutaneously once daily. - dexAMETHasone (DECADRON) 0.5 mg tablet Take 1 tablet by mouth once daily. - metFORMIN (GLUCOPHAGE) 850 mg tablet Take 1 tablet by mouth twice daily with meals. - spironolactone (ALDACTONE) 25 mg tablet Take 25 mg by mouth once daily. On hold for - bupropion HCl (BUPROBAN ORAL) Take 150 mg by mouth once daily. Problem List As Of Date 08/15/2024 Noted Resolved High blood pressure [I10] 10/16/2021 Diagnosed: 10/30/2023 Pre-op exam [Z01.818] 10/30/2023 Class 3 severe obesity due to excess calories w*10/30/2023 Missed [O02.1] 10/30/2023 Encounter Status:Closed by ODALIS PARIKH on 08/15/24 Normal [facility] Estradiol SerPl-mCncon 08-15 E2 [Mass/Vol] 83 pg/mL High 8-37 [facility] Comment on above: Order Comment: Speci men Type: BLOOD SPECIMEN Ordering Facility: [facility] Address: [address] [place] [address] Result Comment: This test is not suitable for patients receiving treatment with the drug Fulvestrant (Faslodex). The drug causes an interference leading to falsely elevated estradiol results. Menstrual cycle Estradiol reference ranges: Follicular : < 234 pg/mL Ovulation : 41 to 398 pg/mL Luteal : < 342 pg/mL Estradiol reference ranges vary by gestational period: First trimester : 154 to 3243 pg/mL Second trimester : 1561 to 92187 pg/mL Third trimester : 8285 to >27737 pg/mL Post-menopausal Estradiol reference range: < 41 pg/mL Reference: 1. Estradiol - E2 (Estradiol III) [package insert V 3.0 [place]]. [facility], [place], [place], February 2016. Performed By: #### 1 0501-5, 2839-9, 2243-4 #### [facility] CLIA [id number] [facility] [place] [address] [place] Follicle Diameter USon 08-15 Indication Follicle monitoring Impression Right Ovary: Follicle(s): 1. Size 9.8 mm x 9.5 mm. Mean 9.7 mm. Vol 0.466 cm 2. Size 9.5 mm x 10.4 mm. Mean 10.0 mm. Vol 0.497 cm # antral follicles 18< 10 mm Left Ovary: Follicle(s): 1. Size 12.9 mm x 13.6 mm. Mean 13.3 mm. Vol 1.188 cm 2. Size 8.8 mm x 10.5 mm. Mean 9.7 mm. Vol 0.431 cm 3. Size 10.8 mm x 9.5 mm. Mean 10.2 mm. Vol 0.508 cm 4. Size 9.2 mm x 10.7 mm. Mean 9.9 mm. Vol 0.470 cm # antral follicles 15< 10 mm Recommendations Follow up as clinically indicated. Method Transvaginal ultrasound examination. 3D ultrasound examination Uterus Uterus: Visualized Uterus position: anteverted Endometrium: three-layer pattern Endometrial thickness, total 6.1 mm Right Ovary Rt ovary: Visualized Rt ovarian follicle(s): Follicles identified Rt ovarian follicle D1 9.8 mm Rt ovarian follicle D2 9.5 mm Rt ovarian follicle mean 9.7 mm Rt ovarian follicle vol 0.466 cm Rt ovarian follicle D1 9.5 mm Rt ovarian follicle D2 10.4 mm Rt ovarian follicle mean 10.0 mm Rt ovarian follicle vol 0.497 cm Rt ovarian follicles other findings: # antral follicles 18< 10 mm Left Ovary Lt ovary: Visualized Lt ovarian follicle(s): Follicles identified Lt ovarian follicle D1 12.9 mm Lt ovarian follicle D2 13.6 mm Lt ovarian follicle mean 13.3 mm Lt ovarian follicle vol 1.188 cm Lt ovarian follicle D1 8.8 mm Lt ovarian follicle D2 10.5 mm Lt ovarian follicle mean 9.7 mm Lt ovarian follicle vol 0.431 cm Lt ovarian follicle D1 10.8 mm Lt ovarian follicle D2 9.5 mm Lt ovarian follicle mean 10.2 mm Lt ovarian follicle vol 0.508 cm Lt ovarian follicle D1 9.2 mm Lt ovarian follicle D2 10.7 mm Lt ovarian follicle mean 9.9 mm Lt ovarian follicle vol 0.470 cm Lt ovarian follicles other findings: # antral follicles 15< 10 mm Cul de Sac Visualized. no free fluid visualized Performed By: Nilton Bates RDMS Read By: Odalis Parikh M.D. MATERNAL MEDICINE [facility] Radiology Study observation (narrative) [facility] CNNURSEon 08-10-2024 [facility] Nurse Visit (REIAV) TIN ARIZMENDI ([id number]) 1985 F Date Time Provider Department 08/10/24 7:30 AM MICHEL JOSEPH During your visit today, we recorded the following information about you: Nilton Zhang RN 08/10/2024 8:02 AM Signed The patient is here today for follicular ultrasound and blood work. The patient reports no problems or complaints. Ultrasound and blood will be reviewed by the physician, the flow sheet will be updated and instructions will be communicated to the patient. Nilton Zhang RN August 10, 2024 8:02 AM Nilton Zhang RN 08/10/2024 1:19 PM Signed RN called patient, name and verified. Plan given for superov cycle per physician, see flowsheet for details. Multiplicomt message sent. Medications reviewed and verified, instructions given. Patient denies any questions or concerns. Message sent to scheduling pool for next appt. Nilton Zhang RN August 10, 2024 1:19 PM Referring Provider: MIGUEL LEVY [[id number]] Allergies As of Date: 08/10/2024 Noted Allergy Reaction AMOXACILLIN (AMOXICILLIN) 03/09/2023 4 - Hives Comments: Skin test is negative. Challenge pending PENICILLINS 10/15/2020 4 - Hives Date Reviewed: 08/10/2024 Reviewed by: Nilton Zhang RN - Fully Assessed Reason for Visit: Infertility [285] Visit Diagnosis:Female infertility [N97.9] Order(s):FOLLICULAR US [facility] [[id number]] Order #: [id number]. #:[id number] IEWPOINTQty: 1 Prescriptions as of 08/10/2024 - Follitropin Beta (FOLLISTIM AQ) 300 unit/0.36 mL Inject 200 Units subcutaneously once daily - metFORMIN (GLUCOPHAGE) 500 mg tablet Take 1 tablet by mouth two times a day. - dexAMETHasone (DECADRON) 0.5 mg tablet Take 1 tablet by mouth once daily. - Norethin Misael-Eth Estrad-FE (MICROGESTIN FE) 1.5 mg-30 mcg (21)/75 mg (7) tablet Take 1 tablet by mouth once daily. - ethynodiol diacetate-ethinyl estradiol 1 mg-35 mcg (ZOVIA , ,) 1-35 mg-mcg per tablet Start day 1 of full flow period. Take 1 pill by mouth daily at bedtime, active pills only. Skip or throw out placebo week. - chorionic gonadotropin (PREGNYL) 10,000 unit solr 10,000 Units once daily. 10,000 Units as directed. Inject 10,000 units for HCG trigger - PNV no.95/ferrous fum/folic ac ( ORAL) Take by mouth. - medroxyPROGESTERone (PROVERA) 10 mg tablet Take 1 tablet by mouth two times a day. - letrozole (FEMARA) 2.5 mg tablet Take 4 tablets by mouth once daily. - metFORMIN (GLUCOPHAGE) 850 mg tablet Take 1 tablet by mouth two times a day. - Follitropin Ila (GONAL-F RFF REDI-JECT) 300/0.5 unit/mL pnij Inject 75 Units subcutaneously once daily. - dexAMETHasone (DECADRON) 0.5 mg tablet Take 1 tablet by mouth once daily. - metFORMIN (GLUCOPHAGE) 850 mg tablet Take 1 tablet by mouth twice daily with meals. - spironolactone (ALDACTONE) 25 mg tablet Take 25 mg by mouth once daily. On hold for - bupropion HCl (BUPROBAN ORAL) Take 150 mg by mouth once daily. Problem List As Of Date 08/10/2024 Noted Resolved High blood pressure [I10] 10/16/2021 Diagnosed: 10/30/2023 Pre-op exam [Z01.818] 10/30/2023 Class 3 severe obesity due to excess calories w*10/30/2023 Missed [O02.1] 10/30/2023 Encounter Status:Closed by MICHEL JOSEPH on 08/10/24 Normal [facility] Estradiol SerPl-mCncon 08-10 E2 [Mass/Vol] pg/mL Normal 8-37 [facility] Comment on above: Order Comment: Speci men Type: BLOOD SPECIMEN Ordering Facility: [facility] Address: [address] [place] [address] Result Comment: This test is not suitable for patients receiving treatment with the drug Fulvestrant (Faslodex). The drug causes an interference leading to falsely elevated estradiol results. Menstrual cycle Estradiol reference ranges: Follicular : < 234 pg/mL Ovulation : 41 to 398 pg/mL Luteal : < 342 pg/mL Estradiol reference ranges vary by gestational period: First trimester : 154 to 3243 pg/mL Second trimester : 1561 to 64879 pg/mL Third trimester : 8285 to >21073 pg/mL Post-menopausal Estradiol reference range: < 41 pg/mL Reference: 1. Estradiol - E2 (Estradiol III) [package insert V 3.0 [place]]. [facility], [place], [place], February 2016. Performed By: #### 2 243-4 #### [facility] CLIA [id number] [facility] [place] [address] [place] Di[place] [facility] [place] Indication Follicle monitoring Impression Right Ovary: Size 47 mm x 33 mm x 25 mm Follicle(s): 25+ antral follicles < 10 mm Left Ovary: Size 39 mm x 38 mm x 39 mm Follicle(s): 20 + antral follicles < 10 mm Recommendations Follow up as clinically indicated. Method Transvaginal ultrasound examination. 3D ultrasound examination Uterus Uterus: Visualized Uterus position: anteverted Description of uterine malformations: none Myometrium: heterogeneous Endometrium: single Cervix details: nabothian cysts Uterus length 69 mm Uterus width 56 mm Uterus height 36 mm Uterus Vol 73.0 cm Endometrial thickness, total 4.7 mm Right Ovary Rt ovary: Visualized Rt ovary morphology: premenopausal polycystic Rt ovary D1 47 mm Rt ovary D2 33 mm Rt ovary D3 25 mm Rt ovary mean 34.9 mm Rt ovary Vol 20.0 cm Rt ovarian follicle(s): Follicles identified Rt ovarian follicles other findings: 25+ antral follicles < 10 mm Left Ovary Lt ovary: Visualized Lt ovary morphology: premenopausal polycystic Lt ovary D1 39 mm Lt ovary D2 38 mm Lt ovary D3 39 mm Lt ovary mean 38.6 mm Lt ovary Vol 30.1 cm Lt ovarian follicle(s): Follicles identified Lt ovarian follicles other findings: 20 + antral follicles < 10 mm Cul de Sac Visualized. no free fluid visualized Performed By: Chary Acevedo; RDMS Read By: Michel Jospeh M.D. MATERNAL MEDICINE [facility] Radiology Study observation (narrative) [facility] 08-08-2024 CNPN Telephone (REIBD) TIN ARIZMENDI ([id number]) 1985 F Date Time Provider Department 08/08/24 MICHEL JOSEPH During your visit today, we recorded the following information about you: Mary Ann Kirkland RN 08/09/2024 12:48 PM Addendum Patient calling with CD3 to baseline for SO #8 Unable to reach patient by phone, I will call back to schedule for tomorrow. Mary Ann Kirkland RN August 08, 2024 12:06 PM Patient called back and wanted scheduled for Thursday. FSH and HCG ordered to MDR unable to reach, left message that I scheduled her for 09/21 @ 130PM with EGR virtual for follow up Mary Ann Kirkland RN August 09, 2024 12:48 PM . Allergies As of Date: 08/08/2024 Noted Allergy Reaction AMOXACILLIN (AMOXICILLIN) 03/09/2023 4 - Hives Comments: Skin test is negative. Challenge pending PENICILLINS 10/15/2020 4 - Hives Date Reviewed: 07/18/2024 Reviewed by: Nam Arias RN - Fully Assessed Reason for Visit: LMP 08/06/24/ set up baselines for super ov [Other] Primary Visit Diagnosis:Female infertility [N97.9] Order(s):FOLLICULAR US [facility] [[id number]] Order #: [id number]: 1 STANDING ESTRADIOL-17B BLD [SQE2] Order #: [id number] STANDING Follitropin Beta (FOLLISTIM AQ) 300 unit/0.36 mLInject 200 Units subcutaneously once dailyDisp: 2 EachRfl: 4 [] Sharps Container-Ins Syrng-Ndl 0.3 mL 30 x 1/2 syrg1 Container one time only for 1 dose. HCG trigger. Pregynl #1 w/ syringes and needlesDisp: 1 EachRfl: 1 Prescriptions as of 08/09/2024 - Follitropin Beta (FOLLISTIM AQ) 300 unit/0.36 mL Inject 200 Units subcutaneously once daily - metFORMIN (GLUCOPHAGE) 500 mg tablet Take 1 tablet by mouth two times a day. - dexAMETHasone (DECADRON) 0.5 mg tablet Take 1 tablet by mouth once daily. - Norethin Misael-Eth Estrad-FE (MICROGESTIN FE) 1.5 mg-30 mcg (21)/75 mg (7) tablet Take 1 tablet by mouth once daily. - ethynodiol diacetate-ethinyl estradiol 1 mg-35 mcg (ZOVIA , ,) 1-35 mg-mcg per tablet Start day 1 of full flow period. Take 1 pill by mouth daily at bedtime, active pills only. Skip or throw out placebo week. - chorionic gonadotropin (PREGNYL) 10,000 unit solr 10,000 Units once daily. 10,000 Units as directed. Inject 10,000 units for HCG trigger - PNV no.95/ferrous fum/folic ac ( ORAL) Take by mouth. - medroxyPROGESTERone (PROVERA) 10 mg tablet Take 1 tablet by mouth two times a day. - letrozole (FEMARA) 2.5 mg tablet Take 4 tablets by mouth once daily. - metFORMIN (GLUCOPHAGE) 850 mg tablet Take 1 tablet by mouth two times a day. - Follitropin Ila (GONAL-F RFF REDI-JECT) 300/0.5 unit/mL pnij Inject 75 Units subcutaneously once daily. - dexAMETHasone (DECADRON) 0.5 mg tablet Take 1 tablet by mouth once daily. - metFORMIN (GLUCOPHAGE) 850 mg tablet Take 1 tablet by mouth twice daily with meals. - spironolactone (ALDACTONE) 25 mg tablet Take 25 mg by mouth once daily. On hold for - bupropion HCl (BUPROBAN ORAL) Take 150 mg by mouth once daily. Problem List As Of Date 08/08/2024 Noted Resolved High blood pressure [I10] 10/16/2021 Diagnosed: 10/30/2023 Pre-op exam [Z01.818] 10/30/2023 Class 3 severe obesity due to excess calories w*10/30/2023 Missed [O02.1] 10/30/2023 Prescriptions ordered this encounter Disp Refills Start End FOLLISTIM AQ 300 UNIT/0.36 ML SUBCUT* 2 Ea* 4 08/08/2024 Sig: Inject 200 Units subcutaneously once daily SHARPS CONTAINER-INSULIN SYRINGE AND* 1 Ea* 1 08/08/2024 08/08/2024 Route: [facility] [place] one time only for 1 dose. HCG trigger. Pregynl #1 w/ syringes and needles Medications Discontinued During This Encounter Prescriptions - Follitropin Beta (FOLLISTIM AQ) 300 unit/0.36 mL (Discontinued) Inject 200 Units subcutaneously once daily - Sharps Container-Ins Syrng-Ndl 0.3 mL 30 x 1/2 syrg (Discontinued) 1 Container one time only for 1 dose. HCG trigger. Pregynl #1 w/ syringes and needles Encounter Status:Closed by MARY ANN KIRKLAND on 08/09/24 [facility] 07-18-2024 [facility] (KAREN[facility] TIN ARIZMENDI ([id number]) 1985 F Date Time Provider Department 07/18/24 7:00 AM ODALIS PARIKH During your visit today, we recorded the following information about you: Nam Arias RN 07/18/2024 4:34 PM Signed The patient is here today for follicular ultrasound and blood work. The patient reports no problems or complaints. Ultrasound and blood will be reviewed by the physician, the flow sheet will be updated and instructions will be communicated to the patient. Nam Arias RN RN called patient, name and verified. Plan given for IVF cycle per physician, see flowsheet for details. MyChart message sent. Medications reviewed and verified, instructions given. Patient denies any questions or concerns. Message sent to scheduling pool for next appt. Nam Arias RN July 18, 2024 1:25 PM Referring Provider: MIGUEL LEVY [[id number]] Allergies As of Date: 07/18/2024 Noted Allergy Reaction AMOXACILLIN (AMOXICILLIN) 03/09/2023 4 - Hives Comments: Skin test is negative. Challenge pending PENICILLINS 10/15/2020 4 - Hives Date Reviewed: 07/18/2024 Reviewed by: Nam Arias RN - Fully Assessed Reason for Visit: Infertility [285] Visit Diagnosis:Female infertility [N97.9] Order(s):FOLLICULAR US [facility] [[id number]] Order #: [id number]. #:[id number] IEWPOINTQty: 1 Prescriptions as of 07/18/2024 - metFORMIN (GLUCOPHAGE) 500 mg tablet Take 1 tablet by mouth two times a day. - dexAMETHasone (DECADRON) 0.5 mg tablet Take 1 tablet by mouth once daily. - Norethin Misael-Eth Estrad-FE (MICROGESTIN FE) 1.5 mg-30 mcg (21)/75 mg (7) tablet Take 1 tablet by mouth once daily. - ethynodiol diacetate-ethinyl estradiol 1 mg-35 mcg (ZOVIA 35E, 28,) 1-35 mg-mcg per tablet Start day 1 of full flow period. Take 1 pill by mouth daily at bedtime, active pills only. Skip or throw out placebo week. - Follitropin Beta (FOLLISTIM AQ) 300 unit/0.36 mL Inject 200 Units subcutaneously once daily - chorionic gonadotropin (PREGNYL) 10,000 unit solr 10,000 Units once daily. 10,000 Units as directed. Inject 10,000 units for HCG trigger - PNV no.95/ferrous fum/folic ac ( ORAL) Take by mouth. - medroxyPROGESTERone (PROVERA) 10 mg tablet Take 1 tablet by mouth two times a day. - letrozole (FEMARA) 2.5 mg tablet Take 4 tablets by mouth once daily. - metFORMIN (GLUCOPHAGE) 850 mg tablet Take 1 tablet by mouth two times a day. - Follitropin Ila (GONAL-F RFF REDI-JECT) 300/0.5 unit/mL pnij Inject 75 Units subcutaneously once daily. - dexAMETHasone (DECADRON) 0.5 mg tablet Take 1 tablet by mouth once daily. - metFORMIN (GLUCOPHAGE) 850 mg tablet Take 1 tablet by mouth twice daily with meals. - spironolactone (ALDACTONE) 25 mg tablet Take 25 mg by mouth once daily. On hold for - bupropion HCl (BUPROBAN ORAL) Take 150 mg by mouth once daily. Problem List As Of Date 07/18/2024 Noted Resolved High blood pressure [I10] 10/16/2021 Diagnosed: 10/30/2023 Pre-op exam [Z01.818] 10/30/2023 Class 3 severe obesity due to excess calories w*10/30/2023 Missed [O02.1] 10/30/2023 Encounter Status:Closed by ODALIS PARIKH on 07/18/24 Normal [facility] E[facility] [Mass/Vol] 221 pg/mL High 8-37 [facility] Comment on above: Order Comment: Speci men Type: BLOOD SPECIMEN Ordering Facility: [facility] Address: [address] [place] [address] Result Comment: This test is not suitable for patients receiving treatment with the drug Fulvestrant (Faslodex). The drug causes an interference leading to falsely elevated estradiol results. Menstrual cycle Estradiol reference ranges: Follicular : < 234 pg/mL Ovulation : 41 to 398 pg/mL Luteal : < 342 pg/mL Estradiol reference ranges vary by gestational period: First trimester : 154 to 3243 pg/mL Second trimester : 1561 to 00883 pg/mL Third trimester : 8285 to >25576 pg/mL Post-menopausal Estradiol reference range: < 41 pg/mL Reference: 1. Estradiol - E2 (Estradiol III) [package insert V 3.0 [place]]. [facility], [place], [place], February 2016. Performed By: #### 1 0501-5, 2839-9, 2243-4 #### [facility] CLIA [id number] [facility] [place] [address] [place] Follicle Diameter USon 07-18 Indication Follicle monitoring Impression Right Ovary: Follicle(s): 20 + antral follicles < 10 mm Left Ovary: Follicle(s): 1. Size 21.7 mm x 19.4 mm. Mean 20.6 mm. Vol 4.300 cm 2. Size 13.9 mm x 11.1 mm. Mean 12.5 mm. Vol 0.892 cm 3. Size 15.2 mm x 11.0 mm. Mean 13.1 mm. Vol 0.974 cm 4. Size 12.3 mm x 9.4 mm. Mean 10.8 mm. Vol 0.564 cm 20 + antral follicles < 10 mm Recommendations Follow up as clinically indicated. Method Transvaginal ultrasound examination. 3D ultrasound examination Uterus Uterus: Visualized Uterus position: anteverted Endometrium: weak three-layer pattern Endometrial thickness, total 7.5 mm Right Ovary Rt ovary: Visualized Rt ovarian follicle(s): Follicles identified Rt ovarian follicles other findings: 20 + antral follicles < 10 mm Left Ovary Lt ovary: Visualized Lt ovarian follicle(s): Follicles identified Lt ovarian follicle D1 21.7 mm Lt ovarian follicle D2 19.4 mm Lt ovarian follicle mean 20.6 mm Lt ovarian follicle vol 4.300 cm Lt ovarian follicle D1 13.9 mm Lt ovarian follicle D2 11.1 mm Lt ovarian follicle mean 12.5 mm Lt ovarian follicle vol 0.892 cm Lt ovarian follicle D1 15.2 mm Lt ovarian follicle D2 11.0 mm Lt ovarian follicle mean 13.1 mm Lt ovarian follicle vol 0.974 cm Lt ovarian follicle D1 12.3 mm Lt ovarian follicle D2 9.4 mm Lt ovarian follicle mean 10.8 mm Lt ovarian follicle vol 0.564 cm Lt ovarian follicles other findings: 20 + antral follicles < 10 mm Cul de Sac Visualized. no free fluid visualized Performed By: Chary Acevedo; [facility] Read By: Odalis Parikh M.D. MATERNAL MEDICINE [facility] Radiology Study observation (narrative) [facility] CNNURSEon 07-14-2024 [facility] Nurse Visit (REIAV) TIN ARIZMENDI ([id number]) 1985 F Date Time Provider Department 07/14/24 7:00 AM MICHEL JOSEPH During your visit today, we recorded the following information about you: Ivy Gardner RN 07/14/2024 12:36 PM Signed The patient is here today for follicular ultrasound and blood work. The patient reports no problems or complaints. Ultrasound and blood will be reviewed by the physician, the flow sheet will be updated and instructions will be communicated to the patient. LAUREN Mae Therese, RN 07/14/2024 1:56 PM Signed RN called patient, name and verified. Plan given for IVF cycle per physician, see flowsheet for details. Multiplicomt message sent. Medications reviewed and verified, instructions given. Patient denies any questions or concerns. Message sent to scheduling pool for next appt. Please schedule the patient for the following- Location: [place] Visit type: monitoring us / e2 / Date: 07/18 @7am Gee Devries RN July 14, 2024 1:50 PM Referring Provider: MIGUEL LEVY [[id number]] Allergies As of Date: 07/14/2024 Noted Allergy Reaction AMOXACILLIN (AMOXICILLIN) 03/09/2023 4 - Hives Comments: Skin test is negative. Challenge pending PENICILLINS 10/15/2020 4 - Hives Date Reviewed: 07/07/2024 Reviewed by: Nilton Zhang RN - Fully Assessed Reason for Visit: Infertility [285] Visit Diagnosis:Female infertility [N97.9] Order(s):FOLLICULAR US [facility] [[id number]] Order #: [id number]. #:[id number] IEWPOINTQty: 1 Prescriptions as of 07/14/2024 - metFORMIN (GLUCOPHAGE) 500 mg tablet Take 1 tablet by mouth two times a day. - dexAMETHasone (DECADRON) 0.5 mg tablet Take 1 tablet by mouth once daily. - Norethin Misael-Eth Estrad-FE (MICROGESTIN FE) 1.5 mg-30 mcg (21)/75 mg (7) tablet Take 1 tablet by mouth once daily. - ethynodiol diacetate-ethinyl estradiol 1 mg-35 mcg (ZOVIA E, 28,) 1-35 mg-mcg per tablet Start day 1 of full flow period. Take 1 pill by mouth daily at bedtime, active pills only. Skip or throw out placebo week. - Follitropin Beta (FOLLISTIM AQ) 300 unit/0.36 mL Inject 200 Units subcutaneously once daily - chorionic gonadotropin (PREGNYL) 10,000 unit solr 10,000 Units once daily. 10,000 Units as directed. Inject 10,000 units for HCG trigger - PNV no.95/ferrous fum/folic ac ( ORAL) Take by mouth. - medroxyPROGESTERone (PROVERA) 10 mg tablet Take 1 tablet by mouth two times a day. - letrozole (FEMARA) 2.5 mg tablet Take 4 tablets by mouth once daily. - metFORMIN (GLUCOPHAGE) 850 mg tablet Take 1 tablet by mouth two times a day. - Follitropin Ila (GONAL-F RFF REDI-JECT) 300/0.5 unit/mL pnij Inject 75 Units subcutaneously once daily. - dexAMETHasone (DECADRON) 0.5 mg tablet Take 1 tablet by mouth once daily. - metFORMIN (GLUCOPHAGE) 850 mg tablet Take 1 tablet by mouth twice daily with meals. - spironolactone (ALDACTONE) 25 mg tablet Take 25 mg by mouth once daily. On hold for - bupropion HCl (BUPROBAN ORAL) Take 150 mg by mouth once daily. Problem List As Of Date 07/14/2024 Noted Resolved High blood pressure [I10] 10/16/2021 Diagnosed: 10/30/2023 Pre-op exam [Z01.818] 10/30/2023 Class 3 severe obesity due to excess calories w*10/30/2023 Missed [O02.1] 10/30/2023 Encounter Status:Closed by MICHEL JOSEPH on 07/14/24 Normal [facility] Estradiol SerPl-mCncon 07-14 E2 [Mass/Vol] 48 pg/mL High 8-37 [facility] Comment on above: Order Comment: Speci men Type: BLOOD SPECIMEN Ordering Facility: [facility] Address: [address] [place] [address] Result Comment: This test is not suitable for patients receiving treatment with the drug Fulvestrant (Faslodex). The drug causes an interference leading to falsely elevated estradiol results. Menstrual cycle Estradiol reference ranges: Follicular : < 234 pg/mL Ovulation : 41 to 398 pg/mL Luteal : < 342 pg/mL Estradiol reference ranges vary by gestational period: First trimester : 154 to 3243 pg/mL Second trimester : 1561 to 95538 pg/mL Third trimester : 8285 to >17110 pg/mL Post-menopausal Estradiol reference range: < 41 pg/mL Reference: 1. Estradiol - E2 (Estradiol III) [package insert V 3.0 [place]]. [facility], [place], [place], February 2016. Performed By: #### 2 243-4 #### [facility] CLIA [id number] [facility] [place] [address] [place] Follicle Diameter USon 07-14 Indication Follicle monitoring Impression Right Ovary: Follicle(s): Size 7.3 mm x 7.4 mm. Mean 7.3 mm. Vol 0.204 cm . 20 + antral follicles < 10 mm Left Ovary: Follicle(s): 1. Size 11.3 mm x 10.5 mm. Mean 10.9 mm. Vol 0.650 cm 2. Size 11.8 mm x 9.7 mm. Mean 10.8 mm. Vol 0.582 cm 20+ antral follicles < 10 mm Recommendations Follow up as clinically indicated. Method Transvaginal ultrasound examination. 3D ultrasound examination Uterus Uterus: Visualized Uterus position: anteverted Endometrium: endometrial midline: linear, single Endometrial thickness, total 4.0 mm Right Ovary Rt ovary: Visualized Rt ovary morphology: premenopausal polycystic Rt ovarian follicle(s): Follicles identified Rt ovarian follicle D1 7.3 mm Rt ovarian follicle D2 7.4 mm Rt ovarian follicle mean 7.3 mm Rt ovarian follicle vol 0.204 cm Rt ovarian follicles other findings: 20 + antral follicles < 10 mm Left Ovary Lt ovary: Visualized Lt ovary morphology: premenopausal polycystic Lt ovarian follicle(s): Follicles identified Lt ovarian follicle D1 11.3 mm Lt ovarian follicle D2 10.5 mm Lt ovarian follicle mean 10.9 mm Lt ovarian follicle vol 0.650 cm Lt ovarian follicle D1 11.8 mm Lt ovarian follicle D2 9.7 mm Lt ovarian follicle mean 10.8 mm Lt ovarian follicle vol 0.582 cm Lt ovarian follicles other findings: 20+ antral follicles < 10 mm Cul de Sac Visualized. no free fluid visualized Performed By: Dorothy Betancourt RDMS Read By: Michel Joseph M.D. MATERNAL MEDICINE [facility] Radiology Study observation (narrative) [facility] CNNURSEon 07-07-2024 [facility] Nurse Visit (REIAV) TIN ARIZMENDI ([id number]) 1985 F Date Time Provider Department 07/07/24 7:30 AM NURSE LOUISA [facility] REJ REIAV During your visit today, we recorded the following information about you: Nilton Zhang RN 07/07/2024 7:39 AM Signed The patient is here today for follicular ultrasound and blood work. The patient reports no problems or complaints. Ultrasound and blood will be reviewed by the physician, the flow sheet will be updated and instructions will be communicated to the patient. Nilton Zhang RN July 07, 2024 7:34 AM Nilton Zhang RN 07/07/2024 1:31 PM Signed RN called patient, name and verified. Plan given for IVF cycle per physician, see flowsheet for details. [employer] message sent. Medications reviewed and verified, instructions given. Patient denies any questions or concerns. Message sent to scheduling pool for next appt. Nilton Zhang RN July 07, 2024 1:31 PM Referring Provider: MIGUEL LEVY [[id number]] Allergies As of Date: 07/07/2024 Noted Allergy Reaction AMOXACILLIN (AMOXICILLIN) 03/09/2023 4 - Hives Comments: Skin test is negative. Challenge pending PENICILLINS 10/15/2020 4 - Hives Date Reviewed: 07/07/2024 Reviewed by: Nilton Zahng, LAUREN - Fully Assessed Reason for Visit: Infertility [285] Visit Diagnosis:Female infertility [N97.9] Order(s):FOLLICULAR US [facility] [[id number]] Order #: [id number]. #:[id number] IEWPOINTQty: 1 Prescriptions as of 07/07/2024 - metFORMIN (GLUCOPHAGE) 500 mg tablet Take 1 tablet by mouth two times a day. - dexAMETHasone (DECADRON) 0.5 mg tablet Take 1 tablet by mouth once daily. - Norethin Misael-Eth Estrad-FE (MICROGESTIN FE) 1.5 mg-30 mcg (21)/75 mg (7) tablet Take 1 tablet by mouth once daily. - ethynodiol diacetate-ethinyl estradiol 1 mg-35 mcg (ZOVIA 1/35E, 28,) 1-35 mg-mcg per tablet Start day 1 of full flow period. Take 1 pill by mouth daily at bedtime, active pills only. Skip or throw out placebo week. - Follitropin Beta (FOLLISTIM AQ) 300 unit/0.36 mL Inject 200 Units subcutaneously once daily - chorionic gonadotropin (PREGNYL) 10,000 unit solr 10,000 Units once daily. 10,000 Units as directed. Inject 10,000 units for HCG trigger - PNV no.95/ferrous fum/folic ac ( ORAL) Take by mouth. - medroxyPROGESTERone (PROVERA) 10 mg tablet Take 1 tablet by mouth two times a day. - letrozole (FEMARA) 2.5 mg tablet Take 4 tablets by mouth once daily. - metFORMIN (GLUCOPHAGE) 850 mg tablet Take 1 tablet by mouth two times a day. - Follitropin Ila (GONAL-F RFF REDI-JECT) 300/0.5 unit/mL pnij Inject 75 Units subcutaneously once daily. - dexAMETHasone (DECADRON) 0.5 mg tablet Take 1 tablet by mouth once daily. - metFORMIN (GLUCOPHAGE) 850 mg tablet Take 1 tablet by mouth twice daily with meals. - spironolactone (ALDACTONE) 25 mg tablet Take 25 mg by mouth once daily. On hold for - bupropion HCl (BUPROBAN ORAL) Take 150 mg by mouth once daily. Problem List As Of Date 07/07/2024 Noted Resolved High blood pressure [I10] 10/16/2021 Diagnosed: 10/30/2023 Pre-op exam [Z01.818] 10/30/2023 Class 3 severe obesity due to excess calories w*10/30/2023 Missed [O02.1] 10/30/2023 Encounter Status:Closed by NILTON ZHANG on 07/07/24 Normal [facility] Estradiol SerPl-mCncon 07-07 E2 [Mass/Vol] 63 pg/mL High 8-37 [facility] Comment on above: Order Comment: Speci men Type: BLOOD SPECIMEN Ordering Facility: [facility] Address: [address] [place] [address] Result Comment: This test is not suitable for patients receiving treatment with the drug Fulvestrant (Faslodex). The drug causes an interference leading to falsely elevated estradiol results. Menstrual cycle Estradiol reference ranges: Follicular : < 234 pg/mL Ovulation : 41 to 398 pg/mL Luteal : < 342 pg/mL Estradiol reference ranges vary by gestational period: First trimester : 154 to 3243 pg/mL Second trimester : 1561 to 86999 pg/mL Third trimester : 8285 to >42483 pg/mL Post-menopausal Estradiol reference range: < 41 pg/mL Reference: 1. Estradiol - E2 (Estradiol III) [package insert V 3.0 [place]]. [facility], [place], [place], February 2016. Performed By: #### 2 243-4 #### [facility] CLIA [id number] [facility] [place] [address] [place] Follicle Diameter US 07-07 Indication Follicle monitoring Impression Right Ovary: Cyst(s): Size 10 mm x 8 mm x 9 mm. corpus albicans Follicle(s): 20 + antral follicles < 10 mm Left Ovary: Follicle(s): Size 13.7 mm x 10.0 mm. Mean 11.8 mm. Vol 0.713 cm . 20 +antral follicles < 10 mm Recommendations Follow up as clinically indicated. Method Transvaginal ultrasound examination. 3D ultrasound examination Uterus Uterus: Visualized Uterus position: anteverted Description of uterine malformations: arcuate Endometrium: three-layer pattern Endometrial thickness, total 4.8 mm Right Ovary Rt ovary: Visualized Rt ovarian cyst(s): Cysts identified Rt ovarian cyst D1 10 mm Rt ovarian cyst D2 8 mm Rt ovarian cyst D3 9 mm Rt ovarian cyst mean 9.0 mm Rt ovarian cyst vol 0.377 cm Rt ovarian cyst findings: corpus albicans Rt ovarian follicle(s): Follicles identified Rt ovarian follicles other findings: 20 + antral follicles < 10 mm Left Ovary Lt ovary: Visualized Lt ovarian follicle(s): Follicles identified Lt ovarian follicle D1 13.7 mm Lt ovarian follicle D2 10.0 mm Lt ovarian follicle mean 11.8 mm Lt ovarian follicle vol 0.713 cm Lt ovarian follicles other findings: 20 +antral follicles < 10 mm Cul de Sac Visualized. no free fluid visualized Performed By: Chary Acevedo; [facility] Read By: Radha Gilliam M.D. MATERNAL MEDICINE [facility] Radiology Study observation (narrative) [facility] 07-04-2024 CNPN Telephone (REIAV) TIN ARIZMENDI ([id number]) 1985 F Date Time Provider Department 07/04/24 MICHEL JOSEPH During your visit today, we recorded the following information about you: Miguel Barbour 07/04/2024 10:50 AM Signed Super Ovulation Patient started period Thursday and following up on next steps Mary Ann Kirkland, RN 07/04/2024 2:22 PM Addendum metformin 500mg twice daily and the decadron 0.5mg tablet daily now. He is also agreeable to letrozole with the next cycle so we can order that then. Above was discussed with nursing last cycle SO #7 episode created. LET 10 mg CD 3-7 Metformin 500mg twice daily DEX 0.5 mg CD3-OPK+(trigger night) FSH 75 daily (start CD 6) through trigger injection TIC SC sent to [facility] to review plan discussed last cycle, listed above Sent to [employer]. Location: [facility] Visit type: SO baseline Date: 07/07/24 @ 0730 Mary Ann Kirkland RN July 04, 2024 2:18 PM Allergies As of Date: 07/04/2024 Noted Allergy Reaction AMOXACILLIN (AMOXICILLIN) 03/09/2023 4 - Hives Comments: Skin test is negative. Challenge pending PENICILLINS 10/15/2020 4 - Hives Date Reviewed: 06/15/2024 Reviewed by: Nilton Zhang RN - Fully Assessed Reason for Visit: Next Steps [3565] Primary Visit Diagnosis:Female infertility [N97.9] Order(s):FOLLICULAR US [facility] [[id number]] Order #: [id number]: 1 STANDING ESTRADIOL-17B BLD [SQE2] Order #: [id number] STANDING Prescriptions as of 07/04/2024 - metFORMIN (GLUCOPHAGE) 500 mg tablet Take 1 tablet by mouth two times a day. - dexAMETHasone (DECADRON) 0.5 mg tablet Take 1 tablet by mouth once daily. - Norethin Misael-Eth Estrad-FE (MICROGESTIN FE) 1.5 mg-30 mcg (21)/75 mg (7) tablet Take 1 tablet by mouth once daily. - ethynodiol diacetate-ethinyl estradiol 1 mg-35 mcg (ZOVIA , ,) 1-35 mg-mcg per tablet Start day 1 of full flow period. Take 1 pill by mouth daily at bedtime, active pills only. Skip or throw out placebo week. - Follitropin Beta (FOLLISTIM AQ) 300 unit/0.36 mL Inject 200 Units subcutaneously once daily - chorionic gonadotropin (PREGNYL) 10,000 unit solr 10,000 Units once daily. 10,000 Units as directed. Inject 10,000 units for HCG trigger - PNV no.95/ferrous fum/folic ac ( ORAL) Take by mouth. - medroxyPROGESTERone (PROVERA) 10 mg tablet Take 1 tablet by mouth two times a day. - letrozole (FEMARA) 2.5 mg tablet Take 4 tablets by mouth once daily. - metFORMIN (GLUCOPHAGE) 850 mg tablet Take 1 tablet by mouth two times a day. - Follitropin Ila (GONAL-F RFF REDI-JECT) 300/0.5 unit/mL pnij Inject 75 Units subcutaneously once daily. - dexAMETHasone (DECADRON) 0.5 mg tablet Take 1 tablet by mouth once daily. - metFORMIN (GLUCOPHAGE) 850 mg tablet Take 1 tablet by mouth twice daily with meals. - spironolactone (ALDACTONE) 25 mg tablet Take 25 mg by mouth once daily. On hold for - bupropion HCl (BUPROBAN ORAL) Take 150 mg by mouth once daily. Problem List As Of Date 07/04/2024 Noted Resolved High blood pressure [I10] 10/16/2021 Diagnosed: 10/30/2023 Pre-op exam [Z01.818] 10/30/2023 Class 3 severe obesity due to excess calories w*10/30/2023 Missed [O02.1] 10/30/2023 Encounter Status:Closed by MARY ANN [facility]KLAND on [facility]04[facility] Nurse Visit (REIAV) TIN ARIZMENDI ([id number]) 1985 F Date Time Provider Department 06/15/24 7:00 AM NURSE LOUISA [facility] REJ REIAV During your visit today, we recorded the following information about you: Nilton Zhang RN 06/15/2024 8:21 AM Signed The patient is here today for follicular ultrasound and blood work. The patient reports no problems or complaints. Ultrasound and blood will be reviewed by the physician, the flow sheet will be updated and instructions will be communicated to the patient. Nilton Zhang RN June 15, 2024 8:21 AM Nilton Zhang RN 06/15/2024 1:02 PM Signed RN called patient, name and verified. Plan given for IVF cycle per physician, see flowsheet for details. [employer] message sent. Medications reviewed and verified, instructions given. Patient denies any questions or concerns. Message sent to scheduling pool for next appt. Nilton Zhang RN June 15, 2024 1:02 PM Referring Provider: MICHEL JOSEPH [[id number]] Allergies As of Date: 06/15/2024 Noted Allergy Reaction AMOXACILLIN (AMOXICILLIN) 03/09/2023 4 - Hives Comments: Skin test is negative. Challenge pending PENICILLINS 10/15/2020 4 - Hives Date Reviewed: 06/15/2024 Reviewed by: Nilton Zhang RN - Fully Assessed Reason for Visit: Infertility [285] Visit Diagnosis:Primary female infertility [N97.9] Order(s):[facility] [[id number]] Order #: [id number]. #:[id number] IEWPOINTQty: 1 Prescriptions as of 06/15/2024 - metFORMIN (GLUCOPHAGE) 500 mg tablet Take 1 tablet by mouth two times a day. - dexAMETHasone (DECADRON) 0.5 mg tablet Take 1 tablet by mouth once daily. - Norethin Misael-Eth Estrad-FE (MICROGESTIN FE) 1.5 mg-30 mcg (21)/75 mg (7) tablet Take 1 tablet by mouth once daily. - ethynodiol diacetate-ethinyl estradiol 1 mg-35 mcg (ZOVIA , ,) 1-35 mg-mcg per tablet Start day 1 of full flow period. Take 1 pill by mouth daily at bedtime, active pills only. Skip or throw out placebo week. - Follitropin Beta (FOLLISTIM AQ) 300 unit/0.36 mL Inject 200 Units subcutaneously once daily - chorionic gonadotropin (PREGNYL) 10,000 unit solr 10,000 Units once daily. 10,000 Units as directed. Inject 10,000 units for HCG trigger - PNV no.95/ferrous fum/folic ac ( ORAL) Take by mouth. - medroxyPROGESTERone (PROVERA) 10 mg tablet Take 1 tablet by mouth two times a day. - letrozole (FEMARA) 2.5 mg tablet Take 4 tablets by mouth once daily. - metFORMIN (GLUCOPHAGE) 850 mg tablet Take 1 tablet by mouth two times a day. - Follitropin Ila (GONAL-F RFF REDI-JECT) 300/0.5 unit/mL pnij Inject 75 Units subcutaneously once daily. - dexAMETHasone (DECADRON) 0.5 mg tablet Take 1 tablet by mouth once daily. - metFORMIN (GLUCOPHAGE) 850 mg tablet Take 1 tablet by mouth twice daily with meals. - spironolactone (ALDACTONE) 25 mg tablet Take 25 mg by mouth once daily. On hold for - bupropion HCl (BUPROBAN ORAL) Take 150 mg by mouth once daily. Problem List As Of Date 06/15/2024 Noted Resolved High blood pressure [I10] 10/16/2021 Diagnosed: 10/30/2023 Pre-op exam [Z01.818] 10/30/2023 Class 3 severe obesity due to excess calories w*10/30/2023 Missed [O02.1] 10/30/2023 Encounter Status:Closed by NILTON ZHANG on 06/15/24 Normal [facility] Estradiol SerPl-mCncon 06-15 E2 [Mass/Vol] 315 pg/mL [facility] 837 [facility] Comment on above: Order Comment: Speci men Type: BLOOD SPECIMEN Ordering Facility: [facility] Address: [address] [place] [address] Result Comment: This test is not suitable for patients receiving treatment with the drug Fulvestrant (Faslodex). The drug causes an interference leading to falsely elevated estradiol results. Menstrual cycle Estradiol reference ranges: Follicular : < 234 pg/mL Ovulation : 41 to 398 pg/mL Luteal : < 342 pg/mL Estradiol reference ranges vary by gestational period: First trimester : 154 to 3243 pg/mL Second trimester : 1561 to 50472 pg/mL Third trimester : 8285 to >71517 pg/mL Post-menopausal Estradiol reference range: < 41 pg/mL Reference: 1. Estradiol - E2 (Estradiol III) [package insert V 3.0 [place]]. [facility], [place], [place], February 2016. Performed By: #### 1 0501-5, 9109-9, 2243-4 #### [facility] CLIA [id number] [facility]. [place], [place] [id number] [place] [address] OF [facility] Follicle Diameter USon 06-15 Indication Follicle monitoring Impression Right Ovary: Follicle(s): Size 14.2 mm x 13.2 mm. Mean 13.7 mm. Vol 1.305 cm . # antral follicles 20+ < 10 mm Left Ovary: Follicle(s): Size 20.4 mm x 17.7 mm. Mean 19.0 mm. Vol 3.337 cm . # antral follicles 20+ < 10 mm Recommendations Follow up as clinically indicated. Method Transvaginal ultrasound examination. 3D ultrasound examination Uterus Uterus: Visualized Uterus position: axial Endometrium: three-layer pattern Endometrial thickness, total 7.3 mm Right Ovary Rt ovary: Visualized Rt ovarian follicle(s): Follicles identified Rt ovarian follicle D1 14.2 mm Rt ovarian follicle D2 13.2 mm Rt ovarian follicle mean 13.7 mm Rt ovarian follicle vol 1.305 cm Rt ovarian follicles other findings: # antral follicles 20+ < 10 mm Left Ovary Lt ovary: Visualized Lt ovarian follicle(s): Follicles identified Lt ovarian follicle D1 20.4 mm Lt ovarian follicle D2 17.7 mm Lt ovarian follicle mean 19.0 mm Lt ovarian follicle vol 3.337 cm Lt ovarian follicles other findings: # antral follicles 20+ < 10 mm Cul de Sac Visualized. no free fluid visualized Performed By: Nilton Bates RDMS Read By: Radha Gilliam M.D. MATERNAL MEDICINE [facility] Radiology Study observation (narrative) [facility] SerPl-aCncon 06-15-2024 Lutropin Qn 4.1 m[IU]/mL Normal See comment [facility] Comment on above: Order Comment: Speci men Type: BLOOD SPECIMEN Ordering Facility: [facility] Address: [address] [place] [address] Result Comment: Refe rence range: Follicular: 2.4-12.6 mIU/mL Midcycle: 14.0-95.6 mIU/mL Luteal: 1.0-11.4 mIU/mL Post Sylwia: 7.7-58.5 mIU/mL Performed By: #### 1 0501-5, 1043-6, 2243-4 #### [facility] CLIA [id number] [facility] [place] [address] [place] [facility] 024 Progesterone [Mass/Vol] 0.4 ng/mL Normal See comment [facility] Comment on above: Order Comment: Speci men Type: BLOOD SPECIMEN Ordering Facility: [facility] Address: [facility] [place] [address] Result Comment: Mens trual Cycle Progesterone Reference Ranges: Follicular: <1.0 ng/mL Ovulation: <12.1 ng/mL Luteal: 1.8 to 23.9 ng/mL. Progesterone Reference Ranges vary by gestational period: First Trimester: 11.0 to 44.3 ng/mL Second Trimester: 25.4 to 83.3 ng/mL Third Trimester: 58.7 to 214 ng/mL Post menopausal Progesterone: <0.5 ng/mL Reference: 1. Progesterone (Progesterone III) [package insert V 1.0 [place]]. [facility], [place], [place]. June 2015. Performed By: #### 1 0501-5, 2839-9, 2243-4 #### [facility] CLIA [id number] [facility] [place] [address] [place] [facility] Nurse Visit (REIAV) TIN ARIZMENDI ([id number]) 1985 F Date Time Provider Department 06/13/24 8:15 AM NURSE L[facility]ISA [facility] REJ REIAV During your visit today, we recorded the following information about you: Mary Ann Kirkland RN 06/13/2024 1:33 PM Signed The patient is here today for follicular ultrasound and blood work. The patient reports no problems or complaints. Ultrasound and blood will be reviewed by the physician, the flow sheet will be updated and instructions will be communicated to the patient. Mary Ann Kirkland RN RN called patient, name and verified. Plan given for IVF cycle per physician, see flowsheet for details. MyChart message sent. Medications reviewed and verified, instructions given. Patient denies any questions or concerns. Message sent to scheduling pool for next appt. Location: [facility] Visit type: IVF us/e2/p4/lh Date: 06/15 @ 0700 Mary Ann Kirkland RN June 13, 2024 12:44 PM Referring Provider: MICHEL JOSEPH [[id number]] Allergies As of Date: 06/13/2024 Noted Allergy Reaction AMOXACILLIN (AMOXICILLIN) 03/09/2023 4 - Hives Comments: Skin test is negative. Challenge pending PENICILLINS 10/15/2020 4 - Hives Date Reviewed: 06/03/2024 Reviewed by: Nilton Zhang RN - Fully Assessed Reason for Visit: Infertility [285] Visit Diagnosis:Primary female infertility [N97.9] Order(s):FOLLICULAR US [facility] [[id number]] Order #: [id number]. #:[id number] IEWPOINTQty: 1 LUTEINIZING HORMONE [SQLH] Order #: [id number] FUTURE PROGESTERONE [SQPROG] Order #: [id number] FUTURE ESTRADIOL-17B BLD [SQE2] Order #: [id number] FUTURE Prescriptions as of 06/13/2024 - metFORMIN (GLUCOPHAGE) 500 mg tablet Take 1 tablet by mouth two times a day. - dexAMETHasone (DECADRON) 0.5 mg tablet Take 1 tablet by mouth once daily. - Norethin Misael-Eth Estrad-FE (MICROGESTIN FE) 1.5 mg-30 mcg (21)/75 mg (7) tablet Take 1 tablet by mouth once daily. - ethynodiol diacetate-ethinyl estradiol 1 mg-35 mcg (ZOVIA 35E, 28,) 1-35 mg-mcg per tablet Start day 1 of full flow period. Take 1 pill by mouth daily at bedtime, active pills only. Skip or throw out placebo week. - Follitropin Beta (FOLLISTIM AQ) 300 unit/0.36 mL Inject 200 Units subcutaneously once daily - chorionic gonadotropin (PREGNYL) 10,000 unit solr 10,000 Units once daily. 10,000 Units as directed. Inject 10,000 units for HCG trigger - PNV no.95/ferrous fum/folic ac ( ORAL) Take by mouth. - medroxyPROGESTERone (PROVERA) 10 mg tablet Take 1 tablet by mouth two times a day. - letrozole (FEMARA) 2.5 mg tablet Take 4 tablets by mouth once daily. - metFORMIN (GLUCOPHAGE) 850 mg tablet Take 1 tablet by mouth two times a day. - Follitropin Ila (GONAL-F RFF REDI-JECT) 300/0.5 unit/mL pnij Inject 75 Units subcutaneously once daily. - dexAMETHasone (DECADRON) 0.5 mg tablet Take 1 tablet by mouth once daily. - metFORMIN (GLUCOPHAGE) 850 mg tablet Take 1 tablet by mouth twice daily with meals. - spironolactone (ALDACTONE) 25 mg tablet Take 25 mg by mouth once daily. On hold for - bupropion HCl (BUPROBAN ORAL) Take 150 mg by mouth once daily. Problem List As Of Date 06/13/2024 Noted Resolved High blood pressure [I10] 10/16/2021 Diagnosed: 10/30/2023 Pre-op exam [Z01.818] 10/30/2023 Class 3 severe obesity due to excess calories w*10/30/2023 Missed [O02.1] 10/30/2023 Encounter Status:Closed by MARY ANN KIRKLAND on 06/13/24 Normal [facility]adiol [facility] E2 [Mass/Vol] 259 pg/mL High 8-37 [facility] Comment on above: Order Comment: Speci men Type: BLOOD SPECIMEN Ordering Facility: [facility] Address: [address] [place] [address] Result Comment: This test is not suitable for patients receiving treatment with the drug Fulvestrant (Faslodex). The drug causes an interference leading to falsely elevated estradiol results. Menstrual cycle Estradiol reference ranges: Follicular : < 234 pg/mL Ovulation : 41 to 398 pg/mL Luteal : < 342 pg/mL Estradiol reference ranges vary by gestational period: First trimester : 154 to 3243 pg/mL Second trimester : 1561 to 27602 pg/mL Third trimester : 8285 to >48400 pg/mL Post-menopausal Estradiol reference range: < 41 pg/mL Reference: 1. Estradiol - E2 (Estradiol III) [package insert V 3.0 [place]]. [facility], [place], [place], February 2016. Performed By: #### 2 243-4 #### [facility] CLIA [id number] [facility] [place] [address] [place] Follicle Diameter USon 06-13 Indication Follicle monitoring Impression Right Ovary: Follicle(s): Size 12.4 mm x 10.5 mm. Mean 11.4 mm. Vol 0.710 cm . 20 + antral follicles < 10 mm Left Ovary: Follicle(s): Size 15.6 mm x 14.2 mm. Mean 14.9 mm. Vol 1.634 cm . 20 antral follicles < 10 mm Recommendations Follow up as clinically indicated. Method Transvaginal ultrasound examination. 3D ultrasound examination Uterus Uterus: Visualized Uterus position: axial Endometrium: three-layer pattern Endometrial thickness, total 7.5 mm Right Ovary Rt ovary: Visualized Rt ovarian follicle(s): Follicles identified Rt ovarian follicle D1 12.4 mm Rt ovarian follicle D2 10.5 mm Rt ovarian follicle mean 11.4 mm Rt ovarian follicle vol 0.710 cm Rt ovarian follicles other findings: 20 + antral follicles < 10 mm Left Ovary Lt ovary: Visualized Lt ovarian follicle(s): Follicles identified Lt ovarian follicle D1 15.6 mm Lt ovarian follicle D2 14.2 mm Lt ovarian follicle mean 14.9 mm Lt ovarian follicle vol 1.634 cm Lt ovarian follicles other findings: 20 antral follicles < 10 mm Cul de Sac Visualized. no free fluid visualized Performed By: Chary Acevedo; [facility] Read By: Odalis Parikh M.D. MATERNAL MEDICINE [facility] Radiology Study observation (narrative) [facility]e [facility] CNNURSEon 06-10-2024 CNNURSE Nurse Visit (REIAV) TIN ARIZMENDI ([id number]) 1985 F Date Time Provider Department 06/10/24 7:00 AM TIFFANY GONZALEZ During your visit today, we recorded the following information about you: Gee Devries RN 06/10/2024 7:13 AM Signed The patient is here today for follicular ultrasound and blood work. The patient reports no problems or complaints. Ultrasound and blood will be reviewed by the physician, the flow sheet will be updated and instructions will be communicated to the patient. Gee Devries RN June 10, 2024 7:09 AM Tiffany Gonzalez MD 06/10/2024 12:58 PM Signed LOUISA Attending Physician Note: Ultrasound and lab results reviewed. Based on review of ultrasound and lab results, medication dose and follow up date plans provided. See cycle flowsheet for dosing details. Tiffany Gonzalez MD, Nilton Mendoza RN 06/10/2024 12:58 PM Signed RN called patient, name and verified. Plan given for IVF cycle per physician, see flowsheet for details. Multiplicomt message sent. Medications reviewed and verified, instructions given. Patient denies any questions or concerns. Message sent to scheduling pool for next appt. Nilton Zhang RN June 10, 2024 12:58 PM Nilton Zhang RN 06/10/2024 1:29 PM Signed Message sent to Dr. Joseph regarding patient's request to be on same medications as she was on with her superov #5, dexamethasone and metformin. Dr. Joseph agreed. Medications pended and sent to Dr. Joseph to file. Mashed jobshart sent to patient. Nilton Zhang RN June 10, 2024 1:25 PM Nilton Zhang RN 06/10/2024 1:29 PM Signed Addended by: NILTON ZHANG on: 06/10/2024 01:29 PM Modules accepted: Orders Referring Provider: MICHEL JOSEPH [[id number]] Allergies As of Date: 06/10/2024 Noted Allergy Reaction AMOXACILLIN (AMOXICILLIN) 03/09/2023 4 - Hives Comments: Skin test is negative. Challenge pending PENICILLINS 10/15/2020 4 - Hives Date Reviewed: 06/03/2024 Reviewed by: Plemons, Nilton, RN - Fully Assessed Reason for Visit: Infertility [285] Visit Diagnosis:Primary female infertility [N97.9] Order(s):FOLLICULAR US [facility] [[id number]] Order #: [id number]. #:[id number] IEWPOINTQty: 1 metFORMIN (GLUCOPHAGE) 500 mg tabletTake 1 tablet by mouth two times a day.Disp: 180 tabletRfl: 0 dexAMETHasone (DECADRON) 0.5 mg tabletTake 1 tablet by mouth once daily.Disp: 30 tabletRfl: 3 Prescriptions as of 06/10/2024 - metFORMIN (GLUCOPHAGE) 500 mg tablet Take 1 tablet by mouth two times a day. - dexAMETHasone (DECADRON) 0.5 mg tablet Take 1 tablet by mouth once daily. - Norethin Misael-Eth Estrad-FE (MICROGESTIN FE) 1.5 mg-30 mcg (21)/75 mg (7) tablet Take 1 tablet by mouth once daily. - ethynodiol diacetate-ethinyl estradiol 1 mg-35 mcg (ZOVIA , ,) 1-35 mg-mcg per tablet Start day 1 of full flow period. Take 1 pill by mouth daily at bedtime, active pills only. Skip or throw out placebo week. - Follitropin Beta (FOLLISTIM AQ) 300 unit/0.36 mL Inject 200 Units subcutaneously once daily - chorionic gonadotropin (PREGNYL) 10,000 unit solr 10,000 Units once daily. 10,000 Units as directed. Inject 10,000 units for HCG trigger - PNV no.95/ferrous fum/folic ac ( ORAL) Take by mouth. - medroxyPROGESTERone (PROVERA) 10 mg tablet Take 1 tablet by mouth two times a day. - letrozole (FEMARA) 2.5 mg tablet Take 4 tablets by mouth once daily. - metFORMIN (GLUCOPHAGE) 850 mg tablet Take 1 tablet by mouth two times a day. - Follitropin Ila (GONAL-F RFF REDI-JECT) 300/0.5 unit/mL pnij Inject 75 Units subcutaneously once daily. - dexAMETHasone (DECADRON) 0.5 mg tablet Take 1 tablet by mouth once daily. - metFORMIN (GLUCOPHAGE) 850 mg tablet Take 1 tablet by mouth twice daily with meals. - spironolactone (ALDACTONE) 25 mg tablet Take 25 mg by mouth once daily. On hold for - bupropion HCl (BUPROBAN ORAL) Take 150 mg by mouth once daily. Problem List As Of Date 06/10/2024 Noted Resolved High blood pressure [I10] 10/16/2021 Diagnosed: 10/30/2023 Pre-op exam [Z01.818] 10/30/2023 Class 3 severe obesity due to excess calories w*10/30/2023 Missed [O02.1] 10/30/2023 Prescriptions ordered this encounter Disp Refills Start End METFORMIN 500 MG TABLET 180 * 0 06/10/2024 09/08/2024 Route: ORAL Sig: Take 1 tablet by mouth two times a day. DEXAMETHASONE 0.5 MG TABLET 30 t* 3 06/10/2024 Route: ORAL Sig: Take 1 tablet by mouth once daily. Medications Discontinued During This Encounter Prescriptions - dexAMETHasone (DECADRON) 0.5 mg tablet (Discontinued) Take 1 tablet by mouth once daily. Encounter Status:Closed by NILTON ZHANG on 06/10/24 Normal [facility] Estradiol SerPl-mCncon 06-10 E2 [Mass/Vol] 160 pg/mL High 8-37 [facility] Comment on above: Order Comment: Speci men Type: BLOOD SPECIMEN Ordering Facility: [facility] Address: [address] [place] [address] [place] [address] Result Comment: This test is not suitable for patients receiving treatment with the drug Fulvestrant (Faslodex). The drug causes an interference leading to falsely elevated estradiol results. Menstrual cycle Estradiol reference ranges: Follicular : < 234 pg/mL Ovulation : 41 to 398 pg/mL Luteal : < 342 pg/mL Estradiol reference ranges vary by gestational period: First trimester : 154 to 3243 pg/mL Second trimester : 1561 to 70587 pg/mL Third trimester : 8285 to >25219 pg/mL Post-menopausal Estradiol reference range: < 41 pg/mL Reference: 1. Estradiol - E2 (Estradiol III) [package insert V 3.0 [place]]. [facility], [place], [place], February 2016. Performed By: #### 2 243-4 #### [facility] CLIA [id number] [facility] [place] [address] [facility] [place] [facility] [place] Indication Follicle monitoring Impression Right Ovary: Follicle(s): # antral follicles 23 < 10 mm Left Ovary: Follicle(s): # antral follicles 20< 10 mm Recommendations Follow up as clinically indicated. Method Transvaginal ultrasound examination Uterus Uterus: Visualized Uterus position: anteverted Endometrium: single-layer pattern Endometrial thickness, total 3.2 mm Right Ovary Rt ovary: Visualized Rt ovarian follicle(s): Follicles identified Rt ovarian follicles other findings: # antral follicles 23 < 10 mm Left Ovary Lt ovary: Visualized Lt ovarian follicle(s): Follicles identified Lt ovarian follicles other findings: # antral follicles 20< 10 mm Cul de Sac Visualized. no free fluid visualized Performed By: Melodie Fitzgerald RDMS Read By: Tiffany Gonzalez MD MATERNAL MEDICINE [facility] Radiology Study observation (narrative) [facility] 06-06-2024 [facility] (REIAV) TIN ARIZMENDI ([id number]) 1985 F Date Time Provider Department 06/06/24 8:45 AM ODALIS PARIKH During your visit today, we recorded the following information about you: Gee Devries RN 06/06/2024 3:03 PM Signed The patient is here today for follicular ultrasound and blood work. The patient reports no problems or complaints. Ultrasound and blood will be reviewed by the physician, the flow sheet will be updated and instructions will be communicated to the patient. LAUREN Dunham Kelly, RN 06/06/2024 3:03 PM Signed RN called patient, name and verified. Plan given for IVF cycle per physician, see flowsheet for details. Multiplicomt message sent. Medications reviewed and verified, instructions given. Patient denies any questions or concerns. Message sent to scheduling pool for next appt. Location: [place] Visit type: so us/e2 Date: 06/10 @ 7am Mary Ann Kirkland RN June 06, 2024 3:02 PM Referring Provider: MICHEL JOSEPH [[id number]] Allergies As of Date: 06/06/2024 Noted Allergy Reaction AMOXACILLIN (AMOXICILLIN) 03/09/2023 4 - Hives Comments: Skin test is negative. Challenge pending PENICILLINS 10/15/2020 4 - Hives Date Reviewed: 06/03/2024 Reviewed by: Nilton Zhang RN - Fully Assessed Reason for Visit: Infertility [285] Visit Diagnosis:Primary female infertility [N97.9] Order(s):FOLLICULAR US [facility] [[id number]] Order #: [id number]. #:[id number] IEWPOINTQty: 1 Prescriptions as of 06/06/2024 - Norethin Misael-Eth Estrad-FE (MICROGESTIN FE) 1.5 mg-30 mcg (21)/75 mg (7) tablet Take 1 tablet by mouth once daily. - ethynodiol diacetate-ethinyl estradiol 1 mg-35 mcg (ZOVIA 1/35E, 28,) 1-35 mg-mcg per tablet Start day 1 of full flow period. Take 1 pill by mouth daily at bedtime, active pills only. Skip or throw out placebo week. - Follitropin Beta (FOLLISTIM AQ) 300 unit/0.36 mL Inject 200 Units subcutaneously once daily - chorionic gonadotropin (PREGNYL) 10,000 unit solr 10,000 Units once daily. 10,000 Units as directed. Inject 10,000 units for HCG trigger - PNV no.95/ferrous fum/folic ac ( ORAL) Take by mouth. - medroxyPROGESTERone (PROVERA) 10 mg tablet Take 1 tablet by mouth two times a day. - letrozole (FEMARA) 2.5 mg tablet Take 4 tablets by mouth once daily. - metFORMIN (GLUCOPHAGE) 850 mg tablet Take 1 tablet by mouth two times a day. - Follitropin Ila (GONAL-F RFF REDI-JECT) 300/0.5 unit/mL pnij Inject 75 Units subcutaneously once daily. - dexAMETHasone (DECADRON) 0.5 mg tablet Take 1 tablet by mouth once daily. - dexAMETHasone (DECADRON) 0.5 mg tablet Take 1 tablet by mouth once daily. - metFORMIN (GLUCOPHAGE) 850 mg tablet Take 1 tablet by mouth twice daily with meals. - spironolactone (ALDACTONE) 25 mg tablet Take 25 mg by mouth once daily. On hold for - bupropion HCl (BUPROBAN ORAL) Take 150 mg by mouth once daily. Problem List As Of Date 06/06/2024 Noted Resolved High blood pressure [I10] 10/16/2021 Diagnosed: 10/30/2023 Pre-op exam [Z01.818] 10/30/2023 Class 3 severe obesity due to excess calories w*10/30/2023 Missed [O02.1] 10/30/2023 Encounter Status:Closed by MARY ANN KIRKLAND on 06/06/24 Normal [facility] Estradiol SerPl-mCncon 06-06 E2 [Mass/Vol] 79 pg/mL High 8-37 [facility] Comment on above: Order Comment: Speci men Type: BLOOD SPECIMEN Ordering Facility: [facility] Address: [address] [place] [address] [place] [address] Result Comment: This test is not suitable for patients receiving treatment with the drug Fulvestrant (Faslodex). The drug causes an interference leading to falsely elevated estradiol results. Menstrual cycle Estradiol reference ranges: Follicular : < 234 pg/mL Ovulation : 41 to 398 pg/mL Luteal : < 342 pg/mL Estradiol reference ranges vary by gestational period: First trimester : 154 to 3243 pg/mL Second trimester : 1561 to 74847 pg/mL Third trimester : 8285 to >07126 pg/mL Post-menopausal Estradiol reference range: < 41 pg/mL Reference: 1. Estradiol - E2 (Estradiol III) [package insert V 3.0 [place]]. [facility], [place], [place], February 2016. Performed By: #### 2 243-4 #### [facility] CLIA [id number] [facility] [place] [address] [place] Follicle Diameter USon 06-06 Indication Follicle monitoring Impression Scan for follicle monitoring. Recommendations Follow up as clinically indicated. Method Transvaginal ultrasound examination. 3D ultrasound examination Uterus Uterus: Visualized Uterus position: anteverted Endometrium: single Endometrial thickness, total 5.5 mm Right Ovary Rt ovary: Visualized Rt ovarian follicle(s): Follicles identified Rt ovarian follicles other findings: 25+ antral follicles < 10 mm Left Ovary Lt ovary: Visualized Lt ovarian follicle(s): Follicles identified Lt ovarian follicles other findings: 25 + antral follicles < 10 mm Cul de Sac Visualized. no free fluid visualized Performed By: Chary Acevedo; RDMS Read By: Odalis Parikh M.D. MATERNAL MEDICINE [facility] Radiology Study observation (narrative) [facility] CNNURSEon 06-03-2024 CNNURSE Nurse Visit (REIAV) TIN ARIZMENDI ([id number]) 1985 F Date Time Provider Department 06/03/24 7:00 AM MICHEL JOSEPH During your visit today, we recorded the following information about you: Nilton Zhang RN 06/03/2024 7:16 AM Signed The patient is here today for follicular ultrasound and blood work. The patient reports no problems or complaints. Ultrasound and blood will be reviewed by the physician, the flow sheet will be updated and instructions will be communicated to the patient. Nilton Zhang RN June 03, 2024 7:03 AM Nilton Zhang RN 06/03/2024 12:50 PM Signed RN called patient, name and verified. Plan given for IVF cycle per physician, see flowsheet for details. Odysii message sent. Medications reviewed and verified, instructions given. Patient denies any questions or concerns. Message sent to scheduling pool for next appt. Nilton Zhang RN June 03, 2024 12:50 PM Referring Provider: MICHEL JOSEPH [[id number]] Allergies As of Date: 06/03/2024 Noted Allergy Reaction AMOXACILLIN (AMOXICILLIN) 03/09/2023 4 - Hives Comments: Skin test is negative. Challenge pending PENICILLINS 10/15/2020 4 - Hives Date Reviewed: 06/03/2024 Reviewed by: Nilton Zhang RN - Fully Assessed Reason for Visit: Infertility [285] Visit Diagnosis:Primary female infertility [N97.9] Order(s):FOLLICULAR US [facility] [[id number]] Order #: [id number]. #:[id number] IEWPOINTQty: 1 Prescriptions as of 06/03/2024 - Norethin Misael-Eth Estrad-FE (MICROGESTIN FE) 1.5 mg-30 mcg (21)/75 mg (7) tablet Take 1 tablet by mouth once daily. - ethynodiol diacetate-ethinyl estradiol 1 mg-35 mcg (ZOVIA 1/35E, 28,) 1-35 mg-mcg per tablet Start day 1 of full flow period. Take 1 pill by mouth daily at bedtime, active pills only. Skip or throw out placebo week. - Follitropin Beta (FOLLISTIM AQ) 300 unit/0.36 mL Inject 200 Units subcutaneously once daily - chorionic gonadotropin (PREGNYL) 10,000 unit solr 10,000 Units once daily. 10,000 Units as directed. Inject 10,000 units for HCG trigger - PNV no.95/ferrous fum/folic ac ( ORAL) Take by mouth. - medroxyPROGESTERone (PROVERA) 10 mg tablet Take 1 tablet by mouth two times a day. - letrozole (FEMARA) 2.5 mg tablet Take 4 tablets by mouth once daily. - metFORMIN (GLUCOPHAGE) 850 mg tablet Take 1 tablet by mouth two times a day. - Follitropin Ila (GONAL-F F REDI-JECT) 300/0.5 unit/mL pnij Inject 75 Units subcutaneously once daily. - dexAMETHasone (DECADRON) 0.5 mg tablet Take 1 tablet by mouth once daily. - dexAMETHasone (DECADRON) 0.5 mg tablet Take 1 tablet by mouth once daily. - metFORMIN (GLUCOPHAGE) 850 mg tablet Take 1 tablet by mouth twice daily with meals. - spironolactone (ALDACTONE) 25 mg tablet Take 25 mg by mouth once daily. On hold for - bupropion HCl (BUPROBAN ORAL) Take 150 mg by mouth once daily. Problem List As Of Date 06/03/2024 Noted Resolved High blood pressure [I10] 10/16/2021 Diagnosed: 10/30/2023 Pre-op exam [Z01.818] 10/30/2023 Class 3 severe obesity due to excess calories w*10/30/2023 Missed [O02.1] 10/30/2023 Encounter Status:Closed by MICHEL JOSEPH on 06/03/24 Normal [facility] Estradiol SerPl-mCncon 06-03 E2 [Mass/Vol] 86 pg/mL High 8-37 [facility] Comment on above: Order Comment: Speci men Type: BLOOD SPECIMEN Ordering Facility: [facility] Address: [address] [place] [address] Result Comment: This test is not suitable for patients receiving treatment with the drug Fulvestrant (Faslodex). The drug causes an interference leading to falsely elevated estradiol results. Menstrual cycle Estradiol reference ranges: Follicular : < 234 pg/mL Ovulation : 41 to 398 pg/mL Luteal : < 342 pg/mL Estradiol reference ranges vary by gestational period: First trimester : 154 to 3243 pg/mL Second trimester : 1561 to 58602 pg/mL Third trimester : 8285 to >79230 pg/mL Post-menopausal Estradiol reference range: < 41 pg/mL Reference: 1. Estradiol - E2 (Estradiol III) [package insert V 3.0 [place]]. [facility], [place], [place], February 2016. Performed By: #### 1 0501-5, 2839-9, 2243-4 #### [facility] CLIA [id number] [facility]. [address] [place] [facility] [place] Indication Follicle monitoring Impression Right Ovary: Follicle(s): # antral follicles 25+ < 10 mm Left Ovary: Follicle(s): # antral follicles 25+ < 10 mm Recommendations Follow up as clinically indicated. Method Transvaginal ultrasound examination. 3D ultrasound examination Uterus Uterus: Visualized Uterus position: anteverted Endometrium: single layer Endometrial thickness, total 2.6 mm Right Ovary Rt ovary: Visualized Outline: smooth Rt ovary morphology: premenopausal polycystic Rt ovarian follicle(s): Follicles identified Rt ovarian follicles other findings: # antral follicles 25+ < 10 mm Left Ovary Lt ovary: Visualized Lt ovarian follicle(s): Follicles identified Lt ovarian follicles other findings: # antral follicles 25+ < 10 mm Cul de Sac Visualized. no free fluid visualized Performed By: Nilton Bates RDMS Read By: Michel Joseph M.D. MATERNAL MEDICINE [facility] Radiology Study observation (narrative) [facility] CNNURSEon 05-27-2024 CNNURSE Nurse Visit (REIAV) TIN ARIZMENDI ([id number]) 1985 F Date Time Provider Department 05/27/24 7:00 AM NURSE LOUISA [facility] REJ REIAV During your visit today, we recorded the following information about you: Nilton Zhang RN 05/27/2024 7:02 AM Signed The patient is here today for follicular ultrasound and blood work. The patient reports no problems or complaints. Ultrasound and blood will be reviewed by the physician, the flow sheet will be updated and instructions will be communicated to the patient. Nilton Zhang RN May 27, 2024 7:02 AM Tiffany Gonzalez MD 05/27/2024 1:07 PM Signed LOUISA Attending Physician Note: Ultrasound and lab results reviewed. Based on review of ultrasound and lab results, medication dose and follow up date plans provided. See cycle flowsheet for dosing details. Tiffany Gonzalez MD, CROW Nilton Zhang RN 05/27/2024 1:06 PM Signed RN called patient, name and verified. Plan given for ISuper Ov cycle per physician, see flowsheet for details. Odysii message sent. Medications reviewed and verified, instructions given. Patient denies any questions or concerns. Message sent to scheduling pool for next appt. Nilton Zhang RN May 27, 2024 1:06 PM Referring Provider: KOBI WEINER [[id number]] Allergies As of Date: 05/27/2024 Noted Allergy Reaction AMOXACILLIN (AMOXICILLIN) 03/09/2023 4 - Hives Comments: Skin test is negative. Challenge pending PENICILLINS 10/15/2020 4 - Hives Date Reviewed: 05/27/2024 Reviewed by: Nilton Zhang RN - Fully Assessed Reason for Visit: Infertility [285] Visit Diagnosis:Female infertility [N97.9] Order(s):FOLLICULAR US [facility] [[id number]] Order #: [id number]. #:[id number] IEWPOINTQty: 1 Prescriptions as of 05/27/2024 - Norethin Misael-Eth Estrad-FE (MICROGESTIN FE) 1.5 mg-30 mcg (21)/75 mg (7) tablet Take 1 tablet by mouth once daily. - ethynodiol diacetate-ethinyl estradiol 1 mg-35 mcg (ZOVIA E, 28,) 1-35 mg-mcg per tablet Start day 1 of full flow period. Take 1 pill by mouth daily at bedtime, active pills only. Skip or throw out placebo week. - Follitropin Beta (FOLLISTIM AQ) 300 unit/0.36 mL Inject 200 Units subcutaneously once daily - chorionic gonadotropin (PREGNYL) 10,000 unit solr 10,000 Units once daily. 10,000 Units as directed. Inject 10,000 units for HCG trigger - PNV no.95/ferrous fum/folic ac ( ORAL) Take by mouth. - medroxyPROGESTERone (PROVERA) 10 mg tablet Take 1 tablet by mouth two times a day. - letrozole (FEMARA) 2.5 mg tablet Take 4 tablets by mouth once daily. - metFORMIN (GLUCOPHAGE) 850 mg tablet Take 1 tablet by mouth two times a day. - Follitropin Ila (GONAL-F RFF REDI-JECT) 300/0.5 unit/mL pnij Inject 75 Units subcutaneously once daily. - dexAMETHasone (DECADRON) 0.5 mg tablet Take 1 tablet by mouth once daily. - dexAMETHasone (DECADRON) 0.5 mg tablet Take 1 tablet by mouth once daily. - metFORMIN (GLUCOPHAGE) 850 mg tablet Take 1 tablet by mouth twice daily with meals. - spironolactone (ALDACTONE) 25 mg tablet Take 25 mg by mouth once daily. On hold for - bupropion HCl (BUPROBAN ORAL) Take 150 mg by mouth once daily. Problem List As Of Date 05/27/2024 Noted Resolved High blood pressure [I10] 10/16/2021 Diagnosed: 10/30/2023 Pre-op exam [Z01.818] 10/30/2023 Class 3 severe obesity due to excess calories w*10/30/2023 Missed [O02.1] 10/30/2023 Encounter Status:Closed by NILTON ZHANG on 05/27/24 Normal [facility] Estradiol SerPl-mCncon 05-27 E2 [Mass/Vol] 35 pg/mL Normal 8-37 [facility] Comment on above: Order Comment: Speci men Type: BLOOD SPECIMEN Ordering Facility: [facility] Address: [address] [place] [address] Result Comment: This test is not suitable for patients receiving treatment with the drug Fulvestrant (Faslodex). The drug causes an interference leading to falsely elevated estradiol results. Menstrual cycle Estradiol reference ranges: Follicular : < 234 pg/mL Ovulation : 41 to 398 pg/mL Luteal : < 342 pg/mL Estradiol reference ranges vary by gestational period: First trimester : 154 to 3243 pg/mL Second trimester : 1561 to 32910 pg/mL Third trimester : 8285 to >49859 pg/mL Post-menopausal Estradiol reference range: < 41 pg/mL Reference: 1. Estradiol - E2 (Estradiol III) [package insert V 3.0 [place]]. [facility], [place], [place], February 2016. Performed By: #### 2 243-4 #### [facility] CLIA [id number] [address] [place] Follicle Diameter USon 05-27 Indication Follicle monitoring Impression Right Ovary: Size 38 mm x 25 mm x 23 mm Follicle(s): 25+ antral follicles < 10 mm Left Ovary: Size 32 mm x 30 mm x 28 mm Follicle(s): 25+ antral follicles < 10 mm Recommendations Follow up as clinically indicated. Method Transvaginal ultrasound examination. 3D ultrasound examination Uterus Uterus: Visualized Uterus position: anteverted Endometrium: endometrial midline: linear Cervix details: cystic lesions identified suggesting superficial Nabothian cysts Endometrial thickness, total 3.4 mm Right Ovary Rt ovary: Visualized Rt ovary morphology: premenopausal polycystic Rt ovary D1 38 mm Rt ovary D2 25 mm Rt ovary D3 23 mm Rt ovary mean 28.7 mm Rt ovary Vol 11.5 cm Rt ovarian follicle(s): Follicles identified Rt ovarian follicles other findings: 25+ antral follicles < 10 mm Left Ovary Lt ovary: Visualized Lt ovary morphology: premenopausal polycystic Lt ovary D1 32 mm Lt ovary D2 30 mm Lt ovary D3 28 mm Lt ovary mean 30.1 mm Lt ovary Vol 14.3 cm Lt ovarian follicle(s): Follicles identified Lt ovarian follicles other findings: 25+ antral follicles < 10 mm Cul de Sac Visualized. no free fluid visualized Performed By: Dorothy Betancourt RDMS Read By: Tiffany Gonzalez MD MATERNAL MEDICINE [facility] Radiology Study observation (narrative) [facility] TYPE + SCREENon 05-27-2024 ABO O Normal [facility] Comment on above: Order Comment: Speci men Type: BLOOD SPECIMEN Ordering Facility: [facility] Address: [address] [place] [address] Performed By: #### 1 0501-5, 2839-9, 3-4 #### [facility] CLIA [id number] [facility] [place] [address] [place] [facility] HISTORICAL AB SCR STATUS Negative [facility] Comment on above: Order Comment: Speci men Type: BLOOD SPECIMEN Ordering Facility: [facility] Address: [address] [place] [address] Performed By: #### 1 0501-5, 2839-9, 2243-4 #### [facility] CLIA [id number] [facility] [place] [address] [place] Rh Nom (Bld) Positive [facility] Comment on above: Order Comment: Speci men Type: BLOOD SPECIMEN Ordering Facility: [facility] Address: [address] [place] [address] Performed By: #### 1 0501-5, 2839-9, 2243-4 #### [facility] CLIA [id number] [facility] [place] [address] [place] TYPE AND SCREEN EXPIRATION 05/30/2024 23:59 Normal [facility] Comment on above: Order Comment: Speci men Type: BLOOD SPECIMEN Ordering Facility: [facility] Address: [address] [place] [address] Performed By: #### 1 0501-5, 2839-9, 2243-4 #### [facility] CLIA [id number] [facility] [place] [address] [facility] [id number] 05-24-2024 HNO ID: [id number] Author: MICHEL JOSEPH MD Service: ? Author Type: Physician Type: Filed: 05/24/2024 11:52 Note Text: 38 yo G1010 w/ PCOS, BMI 43, oligoovulation, 1 prior miscarriage, and poor response to oral OI, now s/p SO+TI x5 times. SIS with possible lesion, hysteroscopy normal, EMB to rule out endometritis was negative. Partner SA Latest Ref Rng 03/24/2023 Date Of Analysis 03/24/23 Semen Volume >=1.50 mL 1.70 Semen pH >=7.2 7.8 Color, Semen Burton Opalescent Semen Viscosity Normal Concentration >=15.00 M/mL 215.00 Total Count Sperm M 365.50 % Motile Sperm (%KY + %MOLD CAPPER HELPER) >=40 % 76 Forward Progression 3 = Good motility, unidirectional Total Motile Sperm M 277.78 Sperm Diff, John >=4 % 2 (L) Undiff Rnd Cell W Rout Semen Anly <1.00 M/mL 0.70 Abstinence Time Days 2.5 Collection Time 0817 Receipt Time 0818 Semen Age 0 - 60 Minutes 27 Semen Comment 1 Tin Arizmendi : 1985 Semen Comment 2 Concentration and motility performed using Makler chamber. At this point, I recommend proceeding with IVF. If patient wants to instead proceed with SO +/- IUI versus TI, this is acceptable, though diminishing likelihood of success given number of prior cycles and her advancing age. I communicated this plan to the nurse - if IVF, then patient needs to see me in follow up. If not IVF, can do an additional 2-3 cycles before need for follow up with me. Michel Joseph MD Normal [facility] CNCOon 05-13-2024 CNCO Letter Text [facility] CNOVon 05-13-2024 CNOV Office Visit (IVFBE) ALDOYAYATIN FERNANDES ([id number]) 1985 F Date Time Provider Department 05/13/24 11:30 AM MICHEL JOSEPH IVFBE During your visit today, we recorded the following information about you: Temperature Pulse Respiration Blood pressure 97.9 degrees 80/minute 18/minute 145/72 Weight Height Last Period 113.4 kg 1.626 m 05/06/24 Michel Joseph MD 05/15/2024 12:58 PM Signed Tin Ugo presents for hysteroscopy. Indication: Irregular Bleeding. Age: [age] year old LMP: Patient's last menstrual period was 05/06/2024 (exact date). Contraception: none test: negative VS: BP 145/72 Pulse 80 Temp (Src) 97.9 (Temporal Artery) Resp 18 Ht 5' 4 (1.63m) Wt 250 lb (113.4kg) SpO2 93% LMP 05/06/2024 BMI 42.89 kg/(m2). UNIVERSAL PROTOCOL / SAFETY CHECKLIST Procedure to be Performed: operative office hysteroscopy Sign In: A Moment of CARE was completed. Personnel directly involved with the procedure wore the appropriate PPE (Personal Protective Equipment). No special equipment needed. Patient/Surrogate Stated/Verified: PATIENT VERIFIED(optional for EMERGENT procedures): Patient name, Date of , Relevant allergies, and The intended procedure Time Out Communication: Intended patient and procedure match the source documents. Consent documented and matches the intended procedure. Relevant labs, photos, and/or imaging studies have been reviewed. Sign Out: SIGN OUT (optional for EMERGENT procedures): All specimen containers correctly labeled. Odette Villa MD OBJECTIVE: Under sterile conditions, using normal saline as distention, 3.2mm rigid hysteroscopy performed without incident. No endocervical lesions seen. Endometrial lining thickened in areas/possibly inflamed but otherwise overall normal. Endometrial biopsy taken and sent Tubal ostia visualized and normal. Endometrial biopsy performed. PROCEDURE SUMMARY: Patient tolerated procedure well. ASSESMENT: Irregular Bleeding with no lesions on hysteroscopy. PLAN: Follow up endometrial biopsy results Michel Joseph MD Referring Provider: MICHEL JOSEPH [[id number]] Allergies As of Date: 05/13/2024 Noted Allergy Reaction AMOXACILLIN (AMOXICILLIN) 03/09/2023 4 - Hives Comments: Skin test is negative. Challenge pending PENICILLINS 10/15/2020 4 - Hives Date Reviewed: 05/13/2024 Reviewed by: Tin Gardner RN - Fully Assessed Primary Visit Diagnosis:Pre-operati ve laboratory examination [Z01.812] Other Visit Diagnoses:Endometrial polyp [N84.0] Encounter for fertility testing [Z31.41] Order(s):HCG QUAL UR B/O [[id number]] Order #: [id number] SURGICAL PATHOLOGY [[id number]] Order #: [id number]. #:[id number] Prescriptions as of 05/15/2024 - Norethin Misael-Eth Estrad-FE (MICROGESTIN FE) 1.5 mg-30 mcg (21)/75 mg (7) tablet Take 1 tablet by mouth once daily. - ethynodiol diacetate-ethinyl estradiol 1 mg-35 mcg (ZOVIA 1/35E, 28,) 1-35 mg-mcg per tablet Start day 1 of full flow period. Take 1 pill by mouth daily at bedtime, active pills only. Skip or throw out placebo week. - Follitropin Beta (FOLLISTIM AQ) 300 unit/0.36 mL Inject 200 Units subcutaneously once daily - chorionic gonadotropin (PREGNYL) 10,000 unit solr 10,000 Units once daily. 10,000 Units as directed. Inject 10,000 units for HCG trigger - PNV no.95/ferrous fum/folic ac ( ORAL) Take by mouth. - medroxyPROGESTERone (PROVERA) 10 mg tablet Take 1 tablet by mouth two times a day. - letrozole (FEMARA) 2.5 mg tablet Take 4 tablets by mouth once daily. - metFORMIN (GLUCOPHAGE) 850 mg tablet Take 1 tablet by mouth two times a day. - Follitropin Ila (GONAL-F RFF REDI-JECT) 300/0.5 unit/mL pnij Inject 75 Units subcutaneously once daily. - dexAMETHasone (DECADRON) 0.5 mg tablet Take 1 tablet by mouth once daily. - dexAMETHasone (DECADRON) 0.5 mg tablet Take 1 tablet by mouth once daily. - metFORMIN (GLUCOPHAGE) 850 mg tablet Take 1 tablet by mouth twice daily with meals. - spironolactone (ALDACTONE) 25 mg tablet Take 25 mg by mouth once daily. On hold for - bupropion HCl (BUPROBAN ORAL) Take 150 mg by mouth once daily. Problem List As Of Date 05/13/2024 Noted Resolved High blood pressure [I10] 10/16/2021 Diagnosed: 10/30/2023 Pre-op exam [Z01.818] 10/30/2023 Class 3 severe obesity due to excess calories w*10/30/2023 Missed [O02.1] 10/30/2023 Letter Text Encounter Status:Closed by MICHEL JOSEPH on 05/15/24 Normal [facility] HCG QUAL UR B/OOrdered By: Shaka Gardner on 05-13-2024 status Negative neg - pos [facility] Quality Check Yes yes/no [facility] SURGICAL PATHOLOGYon 024 CASE REPORT Normal [facility] Comment on above: Order Comment: Sukumar richards Type: TISSUE SPECIMEN Ordering Facility: [facility] Address: [address] [place] [address] Result Comment: Surg [facility] Pathology Report Case: [id number] Authorizing Provider: Odette Villa MD Collected: 05/13/2024 12:26 PM [facility] Received: 05/13/2024 03:34 PM Pathologist: Harry Hodge MD Specimen: Endometrium, Biopsy Performed By: #### S #### [facility] CLIA [id number] [address] [place] [address] [place] [address] [place] CLINICAL HISTORY 38yo with something on imaging concerning for polyp Normal [facility] Comment on above: Order Comment: Sukumar richards Type: TISSUE SPECIMEN Ordering Facility: [facility] Address: [address] [place] [address] Performed By: #### S #### [facility] CLIA [id number] [address] [place] [address] [place] FINAL DIAGNOSIS Normal [facility] Comment on above: Order Comment: Speci men Type: TISSUE SPECIMEN Ordering Facility: [facility] Address: [address] [place] [address] Result Comment: A. E ndometrium, biopsy: - Proliferative endometrium. ACV/dsh 05/18/2024 Performed By: #### S #### [facility] CLIA [id number] [address] [place] [address] OF [facility] FINAL PERFORMING LAB Normal [facility] Comment on above: Order Comment: Speci men Type: TISSUE SPECIMEN Ordering Facility: [facility] Address: [address] [place] [address] Result Comment: Diag nostic interpretation performed at [facility], [address] [place] [address] CLIA# [id number] Appeals Rn: Vincent Leon M.D. Performed By: #### S #### [facility] CLIA [id number] [address] [place] [address] [place] GROSS DESCRIPTION Normal [facility] Comment on above: Order Comment: Speci men Type: TISSUE SPECIMEN Ordering Facility: [facility] Address: [address] [place] [address] Result Comment: A. E ndometrium, Biopsy Received in formalin are multiple butt to butt-white, soft feathery segments of tissue admixed mucinous material aggregating to 0.4 x 0.2 x 0.1 cm. Totally submitted in one cassette. DB May 13, 2024 11:22 PM Gross examination performed at [facility], [address] [place] [address] Performed By: #### S #### [facility] CLIA [id number] [address] [facility] [place] [id number] [place] Jerrell 05-05-2024 ADELEN Telephone (REIAV) KILOTIN FERNANDES ([id number]) 1985 F Date Time Provider Department 05/05/24 MICHEL JOSEPH During your visit today, we recorded the following information about you: Nilton Zhang RN 05/05/2024 12:13 PM Signed Called patient. No answer. Left VM. Nilton Zhang RN May 05, 2024 12:13 PM Niltno Zhang RN 05/05/2024 2:58 PM Signed Called patient. Informed that Dr. Joseph would like her to have a rigid hysteroscopy in office and we are awaiting financial approval. Patient states she stopped taking her control 5 days ago. Instructed to begin OCP again in anticipation of procedure. Pt. Verbalized understanding. Message sent to PSS regarding approval for patient's procedure. PSS stated no approval yet. Nilton Zhang RN May 05, 2024 1:32 PM Nilton Zhang RN 05/05/2024 4:13 PM Signed Financial approved not received yet for Rigid Hysteroscopy. Mashed jobshart sent to patient. Nilton Zhang RN May 05, 2024 4:12 PM Allergies As of Date: 05/05/2024 Noted Allergy Reaction AMOXACILLIN (AMOXICILLIN) 03/09/2023 4 - Hives Comments: Skin test is negative. Challenge pending PENICILLINS 10/15/2020 4 - Hives Date Reviewed: 04/29/2024 Reviewed by: Miguel Levy APRN.INTERNATIONAL FLIGHT ATTENDANT - Fully Assessed Prescriptions as of 05/05/2024 - Norethin Misael-Eth Estrad-FE (MICROGESTIN FE) 1.5 mg-30 mcg (21)/75 mg (7) tablet Take 1 tablet by mouth once daily. - ethynodiol diacetate-ethinyl estradiol 1 mg-35 mcg (ZOVIA E, 28,) 1-35 mg-mcg per tablet Start day 1 of full flow period. Take 1 pill by mouth daily at bedtime, active pills only. Skip or throw out placebo week. - Follitropin Beta (FOLLISTIM AQ) 300 unit/0.36 mL Inject 200 Units subcutaneously once daily - chorionic gonadotropin (PREGNYL) 10,000 unit solr 10,000 Units once daily. 10,000 Units as directed. Inject 10,000 units for HCG trigger - PNV no.95/ferrous fum/folic ac ( ORAL) Take by mouth. - medroxyPROGESTERone (PROVERA) 10 mg tablet Take 1 tablet by mouth two times a day. - letrozole (FEMARA) 2.5 mg tablet Take 4 tablets by mouth once daily. - metFORMIN (GLUCOPHAGE) 850 mg tablet Take 1 tablet by mouth two times a day. - Follitropin Ila (GONAL-F RFF REDI-JECT) 300/0.5 unit/mL pnij Inject 75 Units subcutaneously once daily. - dexAMETHasone (DECADRON) 0.5 mg tablet Take 1 tablet by mouth once daily. - dexAMETHasone (DECADRON) 0.5 mg tablet Take 1 tablet by mouth once daily. - metFORMIN (GLUCOPHAGE) 850 mg tablet Take 1 tablet by mouth twice daily with meals. - spironolactone (ALDACTONE) 25 mg tablet Take 25 mg by mouth once daily. On hold for - bupropion HCl (BUPROBAN ORAL) Take 150 mg by mouth once daily. Problem List As Of Date 05/05/2024 Noted Resolved High blood pressure [I10] 10/16/2021 Diagnosed: 10/30/2023 Pre-op exam [Z01.818] 10/30/2023 Class 3 severe obesity due to excess calories w*10/30/2023 Missed [O02.1] 10/30/2023 Encounter Status:Closed by NILTON ZHANG on 05/05/24 [facility] Jerrell 05-04-2024 NAVIN Telephone (REIBD) TIN ARIZMENDI ([id number]) 1985 F Date Time Provider Department 05/04/24 MICHEL JOSEPH During your visit today, we recorded the following information about you: Miguel Barbour 05/04/2024 9:22 AM Signed Patient hasn't received call discussing next steps after pt ultrasound last week Nilton Zhang, RN 05/04/2024 3:52 PM Signed Awaiting response from Dr. Joseph regarding plan for patient folloowing SIS last week. Mychart sent to patient. Nilton Zhang RN May 04, 2024 3:52 PM Allergies As of Date: 05/04/2024 Noted Allergy Reaction AMOXACILLIN (AMOXICILLIN) 03/09/2023 4 - Hives Comments: Skin test is negative. Challenge pending PENICILLINS 10/15/2020 4 - Hives Date Reviewed: 04/29/2024 Reviewed by: Miguel Levy APRN.INTERNATIONAL FLIGHT ATTENDANT - Fully Assessed Reason for Visit: Patient Question [3917] Prescriptions as of 05/04/2024 - Norethin Misael-Eth Estrad-FE (MICROGESTIN FE) 1.5 mg-30 mcg (21)/75 mg (7) tablet Take 1 tablet by mouth once daily. - ethynodiol diacetate-ethinyl estradiol 1 mg-35 mcg (ZOVIA 35E, 28,) 1-35 mg-mcg per tablet Start day 1 of full flow period. Take 1 pill by mouth daily at bedtime, active pills only. Skip or throw out placebo week. - Follitropin Beta (FOLLISTIM AQ) 300 unit/0.36 mL Inject 200 Units subcutaneously once daily - chorionic gonadotropin (PREGNYL) 10,000 unit solr 10,000 Units once daily. 10,000 Units as directed. Inject 10,000 units for HCG trigger - PNV no.95/ferrous fum/folic ac ( ORAL) Take by mouth. - medroxyPROGESTERone (PROVERA) 10 mg tablet Take 1 tablet by mouth two times a day. - letrozole (FEMARA) 2.5 mg tablet Take 4 tablets by mouth once daily. - metFORMIN (GLUCOPHAGE) 850 mg tablet Take 1 tablet by mouth two times a day. - Follitropin Ila (GONAL-F RFF REDI-JECT) 300/0.5 unit/mL pnij Inject 75 Units subcutaneously once daily. - dexAMETHasone (DECADRON) 0.5 mg tablet Take 1 tablet by mouth once daily. - dexAMETHasone (DECADRON) 0.5 mg tablet Take 1 tablet by mouth once daily. - metFORMIN (GLUCOPHAGE) 850 mg tablet Take 1 tablet by mouth twice daily with meals. - spironolactone (ALDACTONE) 25 mg tablet Take 25 mg by mouth once daily. On hold for - bupropion HCl (BUPROBAN ORAL) Take 150 mg by mouth once daily. Problem List As Of Date 05/04/2024 Noted Resolved High blood pressure [I10] 10/16/2021 Diagnosed: 10/30/2023 Pre-op exam [Z01.818] 10/30/2023 Class 3 severe obesity due to excess calories w*10/30/2023 Missed [O02.1] 10/30/2023 Encounter Status:[facility] Tele[facility] (REIBD) TIN ARIZMENDI ([id number]) 1985 F Date Time Provider Department 05/03/24 MICHEL JOSEPH During your visit today, we recorded the following information about you: Ana Sotomayor 05/03/2024 11:30 AM Signed Pt would like to discuss plans , pt had sis 04/29 Nilton Zhang, RN 05/04/2024 3:51 PM Signed Message sent to Dr. Joseph for plan for patient following her SIS last week. Nilton Zhang RN May 04, 2024 3:51 PM Allergies As of Date: 05/03/2024 Noted Allergy Reaction AMOXACILLIN (AMOXICILLIN) 03/09/2023 4 - Hives Comments: Skin test is negative. Challenge pending PENICILLINS 10/15/2020 4 - Hives Date Reviewed: 04/29/2024 Reviewed by: Miguel Levy APRN.INTERNATIONAL FLIGHT ATTENDANT - Fully Assessed Reason for Visit: Next Steps [3565] Prescriptions as of 05/04/2024 - Norethin Misael-Eth Estrad-FE (MICROGESTIN FE) 1.5 mg-30 mcg (21)/75 mg (7) tablet Take 1 tablet by mouth once daily. - ethynodiol diacetate-ethinyl estradiol 1 mg-35 mcg (ZOVIA 35E, 28,) 1-35 mg-mcg per tablet Start day 1 of full flow period. Take 1 pill by mouth daily at bedtime, active pills only. Skip or throw out placebo week. - Follitropin Beta (FOLLISTIM AQ) 300 unit/0.36 mL Inject 200 Units subcutaneously once daily - chorionic gonadotropin (PREGNYL) 10,000 unit solr 10,000 Units once daily. 10,000 Units as directed. Inject 10,000 units for HCG trigger - PNV no.95/ferrous fum/folic ac ( ORAL) Take by mouth. - medroxyPROGESTERone (PROVERA) 10 mg tablet Take 1 tablet by mouth two times a day. - letrozole (FEMARA) 2.5 mg tablet Take 4 tablets by mouth once daily. - metFORMIN (GLUCOPHAGE) 850 mg tablet Take 1 tablet by mouth two times a day. - Follitropin Ila (GONAL-F RFF REDI-JECT) 300/0.5 unit/mL pnij Inject 75 Units subcutaneously once daily. - dexAMETHasone (DECADRON) 0.5 mg tablet Take 1 tablet by mouth once daily. - dexAMETHasone (DECADRON) 0.5 mg tablet Take 1 tablet by mouth once daily. - metFORMIN (GLUCOPHAGE) 850 mg tablet Take 1 tablet by mouth twice daily with meals. - spironolactone (ALDACTONE) 25 mg tablet Take 25 mg by mouth once daily. On hold for - bupropion HCl (BUPROBAN ORAL) Take 150 mg by mouth once daily. Problem List As Of Date 05/03/2024 Noted Resolved High blood pressure [I10] 10/16/2021 Diagnosed: 10/30/2023 Pre-op exam [Z01.818] 10/30/2023 Class 3 severe obesity due to excess calories w*10/30/2023 Missed [O02.1] 10/30/2023 Encounter Status:Closed by NILTON ZHANG on 05/04/24 [facility] CNOVon 04-29-2024 CNOV Office Visit (REIAV) TIN ARIZMENDI ([id number]) 1985 F Date Time Provider Department 04/29/24 11:00 AM MIGUEL LEVY During your visit today, we recorded the following information about you: Pulse Blood pressure Weight Height 64/minute 144/99 117.9 kg 1.626 m Miguel Levy APRN.INTERNATIONAL FLIGHT ATTENDANT 04/29/2024 12:08 PM Signed Tin Arizmendi is a 38 year old here for SIS. Referred by: Michel Joseph [id number] [place] [address] Chief Complaint: irregular bleeding Endometrial Biopsy: No Ultrasound: No Hormonal therapy: No. LMP: Patient's last menstrual period was 08/16/2023 (approximate). Cycles: PERIOD REGULARITY: irregular Contraception: none HCG: negative UNIVERSAL PROTOCOL / SAFETY CHECKLIST Procedure to be Performed: SIS Sign In: A Moment of CARE was completed. Personnel directly involved with the procedure wore the appropriate PPE (Personal Protective Equipment). Patient/Surrogate Stated/Verified: PATIENT VERIFIED(optional for EMERGENT procedures): Patient name, Date of , Relevant allergies, and The intended procedure Time Out Communication: Intended patient and procedure match the source documents. Consent documented and matches the intended procedure. Sign Out: SIGN OUT (optional for EMERGENT procedures): No specimen collected. All instruments, equipment, possible retained foreign bodies accounted for. Post-procedure follow-up management communicated and Plan of Care Visit completed when applicable. Miguel Levy APRN.[facility] PROCEDURE: EXTERNAL GENITALIA: Normal in appearance without lesions VAGINA: Normal in appearance without lesions Speculum placed into the vagina with excellent visualization of the cervix. Cervix cleaned with Hibiclens. SIS catheter inserted into the uterus, only able to advance just past internal OS, patient complaining of intense pain. Speculum removed and 20mL sterile saline injected into the uterine cavity under ultrasound guidance, saline did not fill uterus, stopped at lower uterine segment. Switched to balloon catheter and same result. Dr. Butt at bedside to assist, unable to fill cavity. Procedure Summary: Patient tolerated procedure well. See ViewPoint for procedure results. Miguel Levy APRN.INTERNATIONAL FLIGHT ATTENDANT Referring Provider: MICHEL JOSEPH [[id number]] Allergies As of Date: 04/29/2024 Noted Allergy Reaction AMOXACILLIN (AMOXICILLIN) 03/09/2023 4 - Hives Comments: Skin test is negative. Challenge pending PENICILLINS 10/15/2020 4 - Hives Date Reviewed: 04/29/2024 Reviewed by: Miguel Levy APRN.[facility] - Fully Assessed Reason for Visit: Infertility [285] Primary Visit Diagnosis:Pre-procedu re lab exam [Z01.812] Other Visit Diagnosis:Fertility testing [Z31.41] Order(s):HCG QUAL UR B/O [[id number]] Order #: [id number] SONOHYSTEROGRAPHY (SIS) [facility] [[id number]] Order #: [id number]. #:[id number] IEWPOINTQty: 1 Prescriptions as of 05/01/2024 - Norethin Misael-Eth Estrad-FE (MICROGESTIN FE) 1.5 mg-30 mcg (21)/75 mg (7) tablet Take 1 tablet by mouth once daily. - ethynodiol diacetate-ethinyl estradiol 1 mg-35 mcg (ZOVIA 35E, 28,) 1-35 mg-mcg per tablet Start day 1 of full flow period. Take 1 pill by mouth daily at bedtime, active pills only. Skip or throw out placebo week. - Follitropin Beta (FOLLISTIM AQ) 300 unit/0.36 mL Inject 200 Units subcutaneously once daily - chorionic gonadotropin (PREGNYL) 10,000 unit solr 10,000 Units once daily. 10,000 Units as directed. Inject 10,000 units for HCG trigger - PNV no.95/ferrous fum/folic ac ( ORAL) Take by mouth. - medroxyPROGESTERone (PROVERA) 10 mg tablet Take 1 tablet by mouth two times a day. - letrozole (FEMARA) 2.5 mg tablet Take 4 tablets by mouth once daily. - metFORMIN (GLUCOPHAGE) 850 mg tablet Take 1 tablet by mouth two times a day. - Follitropin Ila (GONAL-F RFF REDI-JECT) 300/0.5 unit/mL pnij Inject 75 Units subcutaneously once daily. - dexAMETHasone (DECADRON) 0.5 mg tablet Take 1 tablet by mouth once daily. - dexAMETHasone (DECADRON) 0.5 mg tablet Take 1 tablet by mouth once daily. - metFORMIN (GLUCOPHAGE) 850 mg tablet Take 1 tablet by mouth twice daily with meals. - spironolactone (ALDACTONE) 25 mg tablet Take 25 mg by mouth once daily. On hold for - bupropion HCl (BUPROBAN ORAL) Take 150 mg by mouth once daily. Problem List As Of Date 04/29/2024 Noted Resolved High blood pressure [I10] 10/16/2021 Diagnosed: 10/30/2023 Pre-op exam [Z01.818] 10/30/2023 Class 3 severe obesity due to excess calories w*10/30/2023 Missed [O02.1] 10/30/2023 Encounter Status:Closed by MICHEL JOSEPH on 05/01/24 Normal [facility] HCG QUAL UR B/OOrdered By: Colton Gardner on 04-29-2024 status Negative neg - pos [facility] Quality Check Yes yes/no [facility] US Uterus and Fallopian tube s W saline IUon 04-29-2024 [facility] Radiology Study observation (narrative) [facility] CNNURSEon 04-15-2024 CNNURSE Nurse Visit (REIAV) TIN ARIZMENDI ([id number]) 1985 F Date Time Provider Department 04/15/24 7:45 AM NURSE LOUISA [facility] WILLIAM JONES During your visit today, we recorded the following information about you: Nilton Zhang RN 04/15/2024 10:05 AM Signed The patient is here today for follicular ultrasound and blood work. The patient reports no problems or complaints. Ultrasound and blood will be reviewed by the physician, the flow sheet will be updated and instructions will be communicated to the patient. Nilton Zhang RN April 15, 2024 10:05 AM Tiffany Gonzalez MD 04/15/2024 2:48 PM Signed LOUISA Attending Physician Note: Ultrasound and lab results reviewed. Based on review of ultrasound and lab results, medication dose and follow up date plans provided. Will have patient start oral contraception pill today since there is no follicular development. Will route chart to Dr. Joseph as there may be a plan for uterine cavity evaluation, which could take place while she is on the OCP or after a withdrawal bleed. Tiffany Gonzalez MD, CROW Referring Provider: KOBI WEINER [[id number]] Allergies As of Date: 04/15/2024 Noted Allergy Reaction AMOXACILLIN (AMOXICILLIN) 03/09/2023 4 - Hives Comments: Skin test is negative. Challenge pending PENICILLINS 10/15/2020 4 - Hives Date Reviewed: 04/15/2024 Reviewed by: Nilton Zhang, LAUREN - Fully Assessed Reason for Visit: Infertility [285] Primary Visit Diagnosis:Irregular menses [N92.6] Other Visit Diagnosis:Female infertility [N97.9] Order(s):FOLLICULAR US WHI [0558297] Order #: [id number]. #:[id number] IEWPOINTQty: 1 Norethin Misael-Eth Estrad-FE (MICROGESTIN FE) 1.5 mg-30 mcg (21)/75 mg (7) tabletTake 1 tablet by mouth once daily.Disp: 28 tabletRfl: 1 Prescriptions as of 04/15/2024 - Norethin Misael-Eth Estrad-FE (MICROGESTIN FE) 1.5 mg-30 mcg (21)/75 mg (7) tablet Take 1 tablet by mouth once daily. - ethynodiol diacetate-ethinyl estradiol 1 mg-35 mcg (ZOVIA E, 28,) 1-35 mg-mcg per tablet Start day 1 of full flow period. Take 1 pill by mouth daily at bedtime, active pills only. Skip or throw out placebo week. - Follitropin Beta (FOLLISTIM AQ) 300 unit/0.36 mL Inject 200 Units subcutaneously once daily - chorionic gonadotropin (PREGNYL) 10,000 unit solr 10,000 Units once daily. 10,000 Units as directed. Inject 10,000 units for HCG trigger - PNV no.95/ferrous fum/folic ac ( ORAL) Take by mouth. - medroxyPROGESTERone (PROVERA) 10 mg tablet Take 1 tablet by mouth two times a day. - letrozole (FEMARA) 2.5 mg tablet Take 4 tablets by mouth once daily. - metFORMIN (GLUCOPHAGE) 850 mg tablet Take 1 tablet by mouth two times a day. - Follitropin Ila (GONAL-F RFF REDI-JECT) 300/0.5 unit/mL pnij Inject 75 Units subcutaneously once daily. - dexAMETHasone (DECADRON) 0.5 mg tablet Take 1 tablet by mouth once daily. - dexAMETHasone (DECADRON) 0.5 mg tablet Take 1 tablet by mouth once daily. - metFORMIN (GLUCOPHAGE) 850 mg tablet Take 1 tablet by mouth twice daily with meals. - spironolactone (ALDACTONE) 25 mg tablet Take 25 mg by mouth once daily. On hold for - bupropion HCl (BUPROBAN ORAL) Take 150 mg by mouth once daily. Problem List As Of Date 04/15/2024 Noted Resolved High blood pressure [I10] 10/16/2021 Pre-op exam [Z01.818] 10/30/2023 Class 3 severe obesity due to excess calories w*10/30/2023 Missed [O02.1] 10/30/2023 Prescriptions ordered this encounter Disp Refills Start End NORETHINDRONE 1.5 MG-ETHINYL ESTRADI* 28 t* 1 04/15/2024 Route: ORAL Sig: Take 1 tablet by mouth once daily. Encounter Status:Closed by NILTON ZHANG on 04/15/24 Normal [facility] Estradiol SerPl-mCncon 04-15 E2 [Mass/Vol] 38 pg/mL High 8-37 [facility] Comment on above: Order Comment: Speci men Type: BLOOD SPECIMEN Ordering Facility: [facility] Address: [address] [place] [address] Result Comment: This test is not suitable for patients receiving treatment with the drug Fulvestrant (Faslodex). The drug causes an interference leading to falsely elevated estradiol results. Menstrual cycle Estradiol reference ranges: Follicular : < 234 pg/mL Ovulation : 41 to 398 pg/mL Luteal : < 342 pg/mL Estradiol reference ranges vary by gestational period: First trimester : 154 to 3243 pg/mL Second trimester : 1561 to 86517 pg/mL Third trimester : 8285 to >69177 pg/mL Post-menopausal Estradiol reference range: < 41 pg/mL Reference: 1. Estradiol - E2 (Estradiol III) [package insert V 3.0 [place]]. [facility], [place], [place], February 2016. Performed By: #### 2 243-4 #### [facility] CLIA [id number] [facility] [place] [address] [place] Follicle Diameter USon 04-15 Indication Follicle monitoring Impression Right Ovary: Size 46 mm x 28 mm x 24 mm Follicle(s): # antral follicles 22< 10 mm Left Ovary: Size 38 mm x 35 mm x 30 mm Follicle(s): # antral follicles 29< 10 mm Recommendations Follow up as clinically indicated. Method Transvaginal ultrasound examination. 3D ultrasound examination Uterus Uterus: Visualized Uterus position: anteverted Endometrium: single layer Uterus length 63 mm Uterus width 44 mm Uterus height 31 mm Uterus Vol 45.4 cm Endometrial thickness, total 4.7 mm Right Ovary Rt ovary: Visualized Rt ovary D1 46 mm Rt ovary D2 28 mm Rt ovary D3 24 mm Rt ovary mean 32.6 mm Rt ovary Vol 16.2 cm Rt ovarian follicle(s): Follicles identified Rt ovarian follicles other findings: # antral follicles 22< 10 mm Left Ovary Lt ovary: Visualized Lt ovary D1 38 mm Lt ovary D2 35 mm Lt ovary D3 30 mm Lt ovary mean 34.4 mm Lt ovary Vol 21.0 cm Lt ovarian follicle(s): Follicles identified Lt ovarian follicles other findings: # antral follicles 29< 10 mm Cul [place] Sac Visualized. no free fluid visualized Performed By: Melodie Fitzgerald RDMS Read By: Tiffany Gonzalez MD MATERNAL MEDICINE [facility] Radiology Study observation (narrative) [facility] LH SerPl-aCncon 04-15-2024 Lutropin Qn 10.9 m[IU]/mL Normal See comment [facility] Comment on above: Order Comment: Speci men Type: BLOOD SPECIMEN Ordering Facility: [facility] Address: [address] [place] [address] Result Comment: Refe rence range: Follicular: 2.4-12.6 mIU/mL Midcycle: 14.0-95.6 mIU/mL Luteal: 1.0-11.4 mIU/mL Post Sylwia: 7.7-58.5 mIU/mL Performed By: #### 2 243-4 #### [facility] CLIA [id number] [facility] [place], [place] [id number] [place] [address] [place] Progest SerPl-mCncon 024 Progesterone [Mass/Vol] ng/mL Normal See comment [facility] Comment on above: Order Comment: Speci men Type: BLOOD SPECIMEN Ordering Facility: [facility] Address: [address] [place] [address] Result Comment: Mens trual Cycle Progesterone Reference Ranges: Follicular: <1.0 ng/mL Ovulation: <12.1 ng/mL Luteal: 1.8 to 23.9 ng/mL. Progesterone Reference Ranges vary by gestational period: First Trimester: 11.0 to 44.3 ng/mL Second Trimester: 25.4 to 83.3 ng/mL Third Trimester: 58.7 to 214 ng/mL Post menopausal Progesterone: <0.5 ng/mL Reference: 1. Progesterone (Progesterone III) [package insert V 1.0 [place]]. [facility], [place], [place]. June 2015. Performed By: #### 2 243-4 #### [facility] CLIA [id number] [facility] [place] [address] [place] 17 HYDROXYPROGESTERONEon 17-Hydroxyprogesterone [Mass/Vol] 38 ng/dL Normal [facility] Comment on above: Result Comment: (NOT E) Unable to flag abnormal result(s), please refer to reference range(s) below: Adult Female Reference Ranges for 17-Hydroxyprogesterone: Pre-Menopausal Mid Follicular: 23 - 102 ng/dL Pre-Menopausal Surge: 67 - 349 ng/dL Pre-Menopausal Mid Luteal: 139 - 431 ng/dL Postmenopausal Phase: < or = 45 ng/dL Female [place] Stages: II - III Females: 18 - 220 ng/dL IV - V Females: 36 - 200 ng/dL Includes data from J Clin Endocrinol Metab. 1991;73:674-686; J Clin Endocrinol Metab. 1989;69;7309-3468; J Clin Endocrinol Metab. 1994;78:226-270. Pediatr Res 1988;23:525-529. MedLinePlus (accessed 02/27/14). This test was developed and its analytical performance characteristics have been determined by [employer] [place], [place]. It has not been cleared or approved by the U.S. Food and Drug Administration. This assay has been validated pursuant to the CLIA regulations and is used for clinical purposes. Performed By: #### 1 7HYDP #### BLOSSOM Goodwin ([id number]) [employer] ([id number]) [address] [facility] [place], [place] 17 HYDROXYPROGESTERONEon 17-Hydroxyprogesterone [Mass/Vol] Test Not Performed. 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 Normal [facility] Comment on above: Performed By: #### 1 7HYDP #### PATY Mchugh ([id number]) , [facility] Telephone (REIBD) KILOTIN FERNANDES ([id number]) 1985 F Date Time Provider Department 04/07/24 TIFFANY GONZALEZ During your visit today, we recorded the following information about you: Neil Latoya Greer 04/07/2024 11:33 AM Signed Pt has ques on getting her labs done in [place] will they be stat Nely Cotton RN 04/08/2024 8:39 AM Signed Call to pt at cell number listed Pt states that she had blood drawn locally since she is on vacation and call about results. Reviewed we have not received them yet but will keep a look out. Pt states she has the results and will send them via [employer] Pt verbalized understanding Nely Cotton RN April 08, 2024 8:39 AM Allergies As of Date: 04/07/2024 Noted Allergy Reaction AMOXACILLIN (AMOXICILLIN) 03/09/2023 4 - Hives Comments: Skin test is negative. Challenge pending PENICILLINS 10/15/2020 4 - Hives Date Reviewed: 03/08/2024 Reviewed by: Kari Cain MA - Fully Assessed Reason for Visit: nilton pt has ques on getting her labs in [place] [Other] Prescriptions as of 04/08/2024 - ethynodiol diacetate-ethinyl estradiol 1 mg-35 mcg (ZOVIA 35E, 28,) 1-35 mg-mcg per tablet Start day 1 of full flow period. Take 1 pill by mouth daily at bedtime, active pills only. Skip or throw out placebo week. - Follitropin Beta (FOLLISTIM AQ) 300 unit/0.36 mL Inject 200 Units subcutaneously once daily - chorionic gonadotropin (PREGNYL) 10,000 unit solr 10,000 Units once daily. 10,000 Units as directed. Inject 10,000 units for HCG trigger - PNV no.95/ferrous fum/folic ac ( ORAL) Take by mouth. - medroxyPROGESTERone (PROVERA) 10 mg tablet Take 1 tablet by mouth two times a day. - letrozole (FEMARA) 2.5 mg tablet Take 4 tablets by mouth once daily. - metFORMIN (GLUCOPHAGE) 850 mg tablet Take 1 tablet by mouth two times a day. - Follitropin Ila (GONAL-F RFF REDI-JECT) 300/0.5 unit/mL pnij Inject 75 Units subcutaneously once daily. - dexAMETHasone (DECADRON) 0.5 mg tablet Take 1 tablet by mouth once daily. - dexAMETHasone (DECADRON) 0.5 mg tablet Take 1 tablet by mouth once daily. - metFORMIN (GLUCOPHAGE) 850 mg tablet Take 1 tablet by mouth twice daily with meals. - spironolactone (ALDACTONE) 25 mg tablet Take 25 mg by mouth once daily. On hold for - bupropion HCl (BUPROBAN ORAL) Take 150 mg by mouth once daily. Problem List As Of Date 04/07/2024 Noted Resolved High blood pressure [I10] 10/16/2021 Pre-op exam [Z01.818] 10/30/2023 Class 3 severe obesity due to excess calories w*10/30/2023 Missed [O02.1] 10/30/2023 Encounter Status:Closed by NELY COTTON on 04/08/24 Normal [facility] Progest Gretchenfidel -25-2 024 Progesterone [Mass/Vol] 0.2 ng/mL Normal <1.4 [facility] Comment on above: Result Comment: (NOT E) NORMAL MENSTRUATING FOLLICULAR PHASE <1.4 NG/ML LUTEAL PHASE 3.3-26.0 NG/ML MID LUTEAL PHASE 4.4-28.0 NG/ML POST-MENOPAUSAL FEMALES <0.7 NG/ML FEMALES FIRST TRIMESTER 11.0-45.0 NG/ML SECOND TRIMESTER 26.0-89.0 NG/ML THIRD TRIMESTER 46.0-423.0 NG/ML Performed By: #### 2 839-9 #### PATY Mchugh ([id number]) [employer] ([id number]) [address] [place] [address] Progesterone [Mass/Vol] Test Not Perform ed. 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 Normal <1.4 [facility] Comment on above: Performed By: #### 2 839-9 #### PATY WAHLTanisha Mchugh ([id number]) , [place] TSH SerPl-aCncon 04-07-2024 TSH Qn 0.974 MCIU/ML Normal 0.400-4.500 [facility] Comment on above: Performed By: #### 3 016-3 #### PATYATA Mchugh ([id number]) [employer] ([id number]) [address] [place] [address] TSH Qn Test Not Performed. 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 Normal 0.400-4.500 [facility] Comment on above: Performed By: #### 3 016-3 #### PATY Mchugh ([id number]) , [place] Testost SerPl-mCncon 024 Testosterone [Mass/Vol] 48 ng/dL Normal 14-76 [facility] Comment on above: Performed By: #### 2 986-8 #### PATY Mchugh ([id number]) [facility] [employer] ([id number]) [address] [place] [address] Testosterone [Mass/Vol] Test Not Perform ed. 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 Normal 14- [facility] Comment on above: Performed By: #### 2 986-8 #### PATYATA Mchugh ([id number]) , [place] B-HCG SerPl-aCncon HCG.beta subunit Qn m[IU]/mL Normal <5.0 [facility] Comment on above: Order Comment: Speci men Type: BLOOD SPECIMEN Ordering Facility: [facility] Address: [address] [place] [address] Result Comment: João lacey Performed By: #### 2 1198-7 #### [facility] CLIA [id number] [address] [place] [address] [place] Progest SerPl-mCncon 024 Progesterone [Mass/Vol] 0.3 ng/mL Normal See comment [facility] Comment on above: Order Comment: Speci men Type: BLOOD SPECIMEN Ordering Facility: [facility] Address: [address] [place], [place] [id number] Result Comment: Mens trual Cycle Progesterone Reference Ranges: Follicular: <1.0 ng/mL Ovulation: <12.1 ng/mL Luteal: 1.8 to 23.9 ng/mL. Progesterone Reference Ranges vary by gestational period: First Trimester: 11.0 to 44.3 ng/mL Second Trimester: 25.4 to 83.3 ng/mL Third Trimester: 58.7 to 214 ng/mL Post menopausal Progesterone: <0.5 ng/mL Reference: 1. Progesterone (Progesterone III) [package insert V 1.0 [place]]. [facility], [place], [place]. June 2015. Performed By: #### 2 839-9 #### [facility] CLIA [id number] [address] [place] [address] [place] Jerrell 03-30-2024 CNPN Telephone (REIBD) TIN ARIZMENDI ([id number]) 1985 F Date Time Provider Department 03/30/24 MICHEL JOSEPH During your visit today, we recorded the following information about you: Ana Sotomayor 03/30/2024 1:19 PM Signed Pt would like to know her next steps? Has taken provera still no cycle Ana Sotomayor 03/31/2024 11:27 AM Signed Pt returning call Nilton Zhang, LAUREN 03/31/2024 2:50 PM Signed Patient called and questioned if she can have SIS without having period. Patient reports the following history: Pt. Had DANDC in October, has not had a normal period since then. Took one round of Provera after DANDC. Had a day of dark red spotting on 03/06/24. Took another round of Provera and finished on 03/16/24. Pt. Expressing frustration over waiting for period to start. Chat Message sent to Dr. Joseph for plan. Nilton Zhang RN March 31, 2024 2:50 PM Ana Sotomayor 04/01/2024 3:13 PM Signed Pt would like to speak with Nursing , pt states she is very unhappy with her care Allergies As of Date: 03/30/2024 Noted Allergy Reaction AMOXACILLIN (AMOXICILLIN) 03/09/2023 4 - Hives Comments: Skin test is negative. Challenge pending PENICILLINS 10/15/2020 4 - Hives Date Reviewed: 03/08/2024 Reviewed by: Kari Cain MA - Fully Assessed Reason for Visit: next steps , no cycle yet [Other] Prescriptions as of 04/01/2024 - ethynodiol diacetate-ethinyl estradiol 1 mg-35 mcg (ZOVIA 1/35E, 28,) 1-35 mg-mcg per tablet Start day 1 of full flow period. Take 1 pill by mouth daily at bedtime, active pills only. Skip or throw out placebo week. - Follitropin Beta (FOLLISTIM AQ) 300 unit/0.36 mL Inject 200 Units subcutaneously once daily - chorionic gonadotropin (PREGNYL) 10,000 unit solr 10,000 Units once daily. 10,000 Units as directed. Inject 10,000 units for HCG trigger - PNV no.95/ferrous fum/folic ac ( ORAL) Take by mouth. - medroxyPROGESTERone (PROVERA) 10 mg tablet Take 1 tablet by mouth two times a day. - letrozole (FEMARA) 2.5 mg tablet Take 4 tablets by mouth once daily. - metFORMIN (GLUCOPHAGE) 850 mg tablet Take 1 tablet by mouth two times a day. - Follitropin Ila (GONAL-F RFF REDI-JECT) 300/0.5 unit/mL pnij Inject 75 Units subcutaneously once daily. - dexAMETHasone (DECADRON) 0.5 mg tablet Take 1 tablet by mouth once daily. - dexAMETHasone (DECADRON) 0.5 mg tablet Take 1 tablet by mouth once daily. - metFORMIN (GLUCOPHAGE) 850 mg tablet Take 1 tablet by mouth twice daily with meals. - spironolactone (ALDACTONE) 25 mg tablet Take 25 mg by mouth once daily. On hold for - bupropion HCl (BUPROBAN ORAL) Take 150 mg by mouth once daily. Problem List As Of Date 03/30/2024 Noted Resolved High blood pressure [I10] 10/16/2021 Pre-op exam [Z01.818] 10/30/2023 Class 3 severe obesity due to excess calories w*10/30/2023 Missed [O02.1] 10/30/2023 Encounter Status:Closed by NILTON ZHANG on 03/31/24 [facility] CNPTish 03-22-2024 CNPN Telephone (REIBD) TIN ARIZMENDI ([id number]) 1985 F Date Time Provider Department 03/22/24 SELF REIBD During your visit today, we recorded the following information about you: Eusebia Sotomayorra 03/22/2024 1:31 PM Signed Pt had sis done and states they found some scar tissue in the findings. Pt would like to know if she needs to stop her meds? Or go through surgery? Pt states she has tried for 3 weeks to get an answer with no response Lotus Vides RN 03/22/2024 2:30 PM Signed Message resent to Dr Joseph. Awaiting answer to give pt. Lotus Vides RN March 22, 2024 2:30 PM Lotus Vides RN 03/23/2024 8:59 AM Signed Called pt by listed phone number. Apologized to pt the delay in relaying her plan to her. Informed of plan per Dr Joseph. Pt concerned of scar tissue being found on SIS and need of surgery. Per Dr Joseph- Given her concerns, I like that plan: Have her take provera, start OCPs with that period and schedule SIS Make sure SIS is all good, stop OCPs and then Baseline for Super OV No need to continue the Dexamethasone 0.5 mg with stimulation like she has done with all her other cycles Pt agreeable to plan. Took provera and awaiting period. OCPs ordered, to be signed. Pt to take OCPs with the start of period and call to schedule SIS. Dr Joseph to review SIS before proceeding with SO cycle. Pt to follow up with office after SIS. Lotus Vides RN March 23, 2024 8:59 AM Allergies As of Date: 03/22/2024 Noted Allergy Reaction AMOXACILLIN (AMOXICILLIN) 03/09/2023 4 - Hives Comments: Skin test is negative. Challenge pending PENICILLINS 10/15/2020 4 - Hives Date Reviewed: 03/08/2024 Reviewed by: Kari Cain MA - Fully Assessed Reason for Visit: Patient Question [7167] Order(s):ethynodiol diacetate-ethinyl estradiol 1 mg-35 mcg (ZOVIA 1/35E, 28,) 1-35 mg-mcg per tabletStart day 1 of full flow period. Take 1 pill by mouth daily at bedtime, active pills only. Skip or throw out placebo week.Disp: 28 tabletRfl: 1 Prescriptions as of 03/23/2024 - ethynodiol diacetate-ethinyl estradiol 1 mg-35 mcg (ZOVIA 1/35E, 28,) 1-35 mg-mcg per tablet Start day 1 of full flow period. Take 1 pill by mouth daily at bedtime, active pills only. Skip or throw out placebo week. - Follitropin Beta (FOLLISTIM AQ) 300 unit/0.36 mL Inject 200 Units subcutaneously once daily - chorionic gonadotropin (PREGNYL) 10,000 unit solr 10,000 Units once daily. 10,000 Units as directed. Inject 10,000 units for HCG trigger - PNV no.95/ferrous fum/folic ac ( ORAL) Take by mouth. - medroxyPROGESTERone (PROVERA) 10 mg tablet Take 1 tablet by mouth two times a day. - letrozole (FEMARA) 2.5 mg tablet Take 4 tablets by mouth once daily. - metFORMIN (GLUCOPHAGE) 850 mg tablet Take 1 tablet by mouth two times a day. - Follitropin Ila (GONAL-F RFF REDI-JECT) 300/0.5 unit/mL pnij Inject 75 Units subcutaneously once daily. - dexAMETHasone (DECADRON) 0.5 mg tablet Take 1 tablet by mouth once daily. - dexAMETHasone (DECADRON) 0.5 mg tablet Take 1 tablet by mouth once daily. - metFORMIN (GLUCOPHAGE) 850 mg tablet Take 1 tablet by mouth twice daily with meals. - spironolactone (ALDACTONE) 25 mg tablet Take 25 mg by mouth once daily. On hold for - bupropion HCl (BUPROBAN ORAL) Take 150 mg by mouth once daily. Problem List As Of Date 03/22/2024 Noted Resolved High blood pressure [I10] 10/16/2021 Pre-op exam [Z01.818] 10/30/2023 Class 3 severe obesity due to excess calories w*10/30/2023 Missed [O02.1] 10/30/2023 Prescriptions ordered this encounter Disp Refills Start End ETHYNODIOL DIACETATE-ETHINYL ESTRADI* 28 t* 1 03/23/2024 Sig: Start day 1 of full flow period. Take 1 pill by mouth daily at bedtime, active pills only. Skip or throw out placebo week. Encounter Status:Closed by LOTUS VIDES on 03/23/24 [facility] CNOVon 03-08-2024 [facility] TIN ARIZMENDI ([id number]) 1985 F Date Time Provider Department 03/08/24 2:00 PM PEPE POPE [facility] During your visit today, we recorded the following information about you: Pulse Blood pressure Weight Height 63/minute 157/90 119.2 kg 1.626 m Pepe Pope MD 03/08/2024 2:27 PM Addendum Pepe Pope MD 03/08/2024 2:27 PM Signed COLPOSCOPY PROCEDURE Date/Time: 03/08/2024 2:25 PM Performed by: Pepe Pope MD Authorized by: Pepe Pope MD Indication: HPV + Diagnosis: (R87.810) Cervical high risk HPV (human papillomavirus) test positive (primary encounter diagnosis) Patient's last menstrual period was 08/16/2023 (approximate). Informed Consent Consent Obtained: Written [place] Protocol SIGN IN Patient/Surrogate Stated/Verified: Patient name, Date of , Relevant allergies and Intended procedure TIME OUT Intended patient and procedure match the source document(s). Consent documented and matches the intended procedure. Relevant labs, photos, and/or imaging studies have been reviewed. Pre-Procedure Details: Pre-meds: None Local anesthetic: None Procedure Details: Procedure: Colposcopy of Vagina including Cervix [place] speculum was placed in the vagina. Acetic acid placed on cervix. Under colposcopic examination the transition zone was seen in entirety. Biopsy not done. Monsel's solution was not applied. Post-Procedure Details: Impression: Normal Patient tolerated the procedure well with no immediate complications. : Follow up 1 year for pap smear. SIGN OUT No specimen collected. All instruments, equipment, possible retained foreign bodies accounted for. Post-procedure follow-up management communicated and Plan of Care Visit completed when applicable Comments: Note patient quit smoking in October. Pepe Pope MD Referring Provider: PEPE POPE [[id number]] Allergies As of Date: 03/08/2024 Noted Allergy Reaction AMOXACILLIN (AMOXICILLIN) 03/09/2023 4 - Hives Comments: Skin test is negative. Challenge pending PENICILLINS 10/15/2020 4 - Hives Date Reviewed: 03/08/2024 Reviewed by: Kari Cain MA - Fully Assessed Reason for Visit: Colposcopy [1551] Primary Visit Diagnosis:Cervical high risk HPV (human papillomavirus) test positive [R87.810] Order(s):UA DIP,URINE HCG (POC) [8392707] Order #: [id number] #:[id number] COLPOSCOPY [PRO96] Order #: [id number] Prescriptions as of 03/08/2024 - PNV no.95/ferrous fum/folic ac ( ORAL) Take by mouth. - medroxyPROGESTERone (PROVERA) 10 mg tablet Take 1 tablet by mouth two times a day. - letrozole (FEMARA) 2.5 mg tablet Take 4 tablets by mouth once daily. - metFORMIN (GLUCOPHAGE) 850 mg tablet Take 1 tablet by mouth two times a day. - Follitropin Ila (GONAL-F RFF REDI-JECT) 300/0.5 unit/mL pnij Inject 75 Units subcutaneously once daily. - dexAMETHasone (DECADRON) 0.5 mg tablet Take 1 tablet by mouth once daily. - dexAMETHasone (DECADRON) 0.5 mg tablet Take 1 tablet by mouth once daily. - metFORMIN (GLUCOPHAGE) 850 mg tablet Take 1 tablet by mouth twice daily with meals. - spironolactone (ALDACTONE) 25 mg tablet Take 25 mg by mouth once daily. On hold for - bupropion HCl (BUPROBAN ORAL) Take 150 mg by mouth once daily. Problem List As Of Date 03/08/2024 Noted Resolved High blood pressure [I10] 10/16/2021 Pre-op exam [Z01.818] 10/30/2023 Class 3 severe obesity due to excess calories w*10/30/2023 Missed [O02.1] 10/30/2023 Other instructions from your clinician: Disposition: Return in about 1 year (around 03/08/2025) for Pap and PE. Follow-up and Disposition History for Encounter Date Provider Department Center 03/08/2024 [id number], PHILIP*[facility] Encounter Status:Closed by PEPE POPE on 03/08/24 [facility] UA DIP,URINE HCG (POC)on Beta HCG ( test) Ql (U) Negative Negative [facility] Comment on above: Location:[facility], [address] [place] [address], [address] Buy[address] (POCT) Internal QC OK [facility] Location[facility], [address] [place] [address], [address] [facility] POINT OF CARE [facility] 03-07-2024 [facility] Telephone (REIBD) KILOTIN FERNANDES ([id number]) 1985 F Date Time Provider Department 03/07/24 MICHEL JOSEPH During your visit today, we recorded the following information about you: Greer Horton 03/07/2024 12:12 PM Signed Pt wants to discuss her period coming and going Rukhsana Dennis 03/08/2024 3:23 PM Signed Cycle just lasted 1 day, brown then and pink yesterday very light. Should she take provera or should she count this as her cycle for super ov cycle, please follow up with patient. Lotus Vides RN 03/09/2024 10:00 AM Signed Called pt by listed phone number, no answer and left message. Instructed pt to wait for day of full flow bleeding. Wanted to verify if she took Provera or not as Dr Joseph wrote in his note. SO #6 episode create. Chart sent to schedulers for SO referral. Asked pt to return call to office to review plan per Dr Edmonds's consult note. Lotus Vides RN March 09, 2024 9:59 AM Allergies As of Date: 03/07/2024 Noted Allergy Reaction AMOXACILLIN (AMOXICILLIN) 03/09/2023 4 - Hives Comments: Skin test is negative. Challenge pending PENICILLINS 10/15/2020 4 - Hives Date Reviewed: 02/23/2024 Reviewed by: Danyell Leger, LAUREN - Fully Assessed Reason for Visit: discuss her cycle [Other] lmp Thursday cycle for 1 day [Other] Prescriptions as of 03/09/2024 - PNV no.95/ferrous fum/folic ac ( ORAL) Take by mouth. - medroxyPROGESTERone (PROVERA) 10 mg tablet Take 1 tablet by mouth two times a day. - letrozole (FEMARA) 2.5 mg tablet Take 4 tablets by mouth once daily. - metFORMIN (GLUCOPHAGE) 850 mg tablet Take 1 tablet by mouth two times a day. - Follitropin Ila (GONAL-F RFF REDI-JECT) 300/0.5 unit/mL pnij Inject 75 Units subcutaneously once daily. - dexAMETHasone (DECADRON) 0.5 mg tablet Take 1 tablet by mouth once daily. - dexAMETHasone (DECADRON) 0.5 mg tablet Take 1 tablet by mouth once daily. - metFORMIN (GLUCOPHAGE) 850 mg tablet Take 1 tablet by mouth twice daily with meals. - spironolactone (ALDACTONE) 25 mg tablet Take 25 mg by mouth once daily. On hold for - bupropion HCl (BUPROBAN ORAL) Take 150 mg by mouth once daily. Problem List As Of Date 03/07/2024 Noted Resolved High blood pressure [I10] 10/16/2021 Pre-op exam [Z01.818] 10/30/2023 Class 3 severe obesity due to excess calories w*10/30/2023 Missed [O02.1] 10/30/2023 Encounter Status:Closed by LOTUS VIDES on 03/09/24 [facility] [id number] 02-24-2024 O ID: [id number] Author: MICHEL JOSEPH MD Service: ? Author Type: Physician Type: Filed: 02/24/2024 11:33 Note Text: ASSESSMENT AND PLAN Tin Arizmendi is a 38 year old female with PCOS Extensive counseling today as I assume care of this patient from Dr Menchaca. I counseled on diagnosis, risks, and treatment options I recommend that we rule out CAH and re-check thyroid and T levels. These labs have been ordered. The fact that she has not had a menses or despite a monitored cycle, trigger shot, calls into question whether the trigger worked or whether a true follicle had developed. I will have her do a round of provera to induce menses. In future cycles, I will have her get post trigger p4 to confirm ovulation has occurred. Also I don't feel that letrozole is doing much here, and I recommend we go straight to follistim in future SO cycles. We also discussed IVF given her increasing age. Plan given to patient: Next immediate steps: Take provera (double dose) for 7 days If period, then call to schedule saline ultrasound (details below), needs to be scheduled between cycle day 6-11. On day of procedure, get blood drawn for lab work If no period, then call the office and we will order special blood work to assess what might be happening If period, then can proceed with additional cycle. This can be done concurrently with the diagnostic testing above. I recommend we forgo letrozole and start FSH 75 units beginning on cycle day 3. I also want to check progesterone and hcg levels after trigger. Otherwise can keep protocol the same. Follow up in 3-6 months if no to change plans, discuss IVF etc. I have included some information about IVF below. Normal [facility] CNOVon 02-23-2024 CNOV Office Visit (REIMN) UGOTIN ([id number]) 1985 F Date Time Provider Department 02/23/24 3:00 PM MICHEL JOSEPH During your visit today, we recorded the following information about you: Blood pressure Weight Height 124/82 118.3 kg 1.626 m Michel Joseph MD 02/24/2024 11:33 AM Signed [facility] ENDOCRINOLOGY AND INFERTILITY RETURN PATIENT CLINIC NOTE SERVICE DATE: 02/23/2024 SERVICE TIME: 3:33 PM NAME: Tin Arizmendi FERTILITY HISTORY 38yo [id number] with PCOS, BMI 44.77 Note copied from prior visit dated 12/02/[address] Menchaca Provera 10 mg X 10 days to induce menses MET 850 mg BID daily LET 10 mg CD 3-7 DEX 0.5 mg CD3-OPK+ FSH 75 daily (start CD 6) through trigger injection Maximum 3-4 ovulatory cycles; thereafter, if no conception has occurred, schedule a virtual visit to discuss additional work up, if any, and future treatment options Hx Missed requiring suction DANDC 10/30/23 BMI 44.77 INTERVAL UPDATE/PROGRESS Provera did not induce menses. Has not have a period Oct 2023. Previously had menses after doing the letrozole and trigger shot with timed intercourse (tried 2x) 5 cycles of protocol follistim, letrozole, trigger shot, and timed intercourse. Open to trying this cycle again. LABS/IMAGIN02/20/23: [facility] 12.50 ASSESSMENT AND PLAN Tin Arizmendi is a 38 year old female with PCOS (E28.1) Androgen excess (primary encounter diagnosis) Plan: TESTOSTERONE, TOTAL, THYROID STIMULATING HORMONE, PROGESTERONE, HYDROXYPROGESTERONE-1 7 (Z31.41) Fertility testing Plan: SONOHYSTEROGRAPHY (SIS) US [facility]I Extensive counseling today as I assume care of this patient from Dr Menchaca. I counseled on diagnosis, risks, and treatment options I recommend that we rule out CAH and re-check thyroid and T levels. These labs have been ordered. The fact that she has not had a menses or despite a monitored cycle, trigger shot, calls into question whether the trigger worked or whether a true follicle had developed. I will have her do a round of provera to induce menses. I want to ensure no retained tissue or adhesions from her DANDC. In future cycles, I will have her get post trigger p4 to confirm ovulation has occurred. Also I don't feel that letrozole is doing much here, and I recommend we go straight to follistim in future SO cycles. We also discussed IVF given her increasing age. Plan given to patient: Next immediate steps: Take provera (double dose) for 7 days If period, then call to schedule saline ultrasound (details below), needs to be scheduled between cycle day 6-11. On day of procedure, get blood drawn for lab work If no period, then call the office and we will order special blood work to assess what might be happening If period, then can proceed with additional cycle. This can be done concurrently with the diagnostic testing above. I recommend we forgo letrozole and start FSH 75 units beginning on cycle day 3. I also want to check progesterone and hcg levels after trigger. Otherwise can keep protocol the same. Follow up in 3-6 months if no to change plans, discuss IVF etc. I have included some information about IVF below. I spent a total of 40 minutes face to face with the patient. Greater than 50% of the time was spent counseling and coordinating the care based on my plan and assessment as noted. MD Rossana Kat Elliott, MD 02/23/2024 4:21 PM Addendum Next immediate steps: Take provera (double dose) for 7 days If period, then call to schedule saline ultrasound (details below), needs to be scheduled between cycle day 6-11. On day of procedure, get blood drawn for lab work If no period, then call the office and we will order special blood work to assess what might be happening If period, then can proceed with additional cycle. This can be done concurrently with the diagnostic testing above. I recommend we forgo letrozole and start FSH 75 units beginning on cycle day 3. I also want to check progesterone and hcg levels after trigger. Otherwise can keep protocol the same. Follow up in 3-6 months if no to change plans, discuss IVF etc. I have included some information about IVF below. ==== SALINE INFUSION SONOGRAPHY (SIS) is an office procedure used to evaluate the intrauterine cavity or inside lining of the uterus. This is achieved by intrauterine infusion of a saline solution during transvaginal ultrasound (an ultrasound using a vaginal probe). A small, flexible catheter is passed through the cervix (the opening of the uterus) into the uterus so the sterile water can distend the uterine skinner and allow visualization of the uterine cavity. PRIOR TO (more content not included)... Normal [facility] TIN ARIZMENDI ([id number]) 1985 F Date Time Provider Department 02/12/24 PEPE POPE During your visit today, we recorded the following information about you: Cee Cunha RN 02/12/2024 4:15 PM Signed ----- Message from Pepe Pope MD sent at 02/08/2024 4:34 PM EDT ----- Needs colposcopy Cee Cunha, LAUREN 02/12/2024 4:16 PM Signed Called and spoke with pt in depth. She says she is aware of her results but does not want to do a colposcopy. Reports she has had this done twice and it was a bad experience. She says she would either like something to numb the area or have this done in [facility]. Please advise. Pepe Pope MD 02/15/2024 8:57 AM Signed We can numb the area Cee Cunha RN 02/15/2024 12:15 PM Signed please assist w appt for colposcopy. Roxanna May 02/15/2024 12:49 PM Signed Did call patient and LVM. Also sent patient a [employer] message. Postponing to ensure scheduling. Roxanna May 02/16/2024 10:41 AM Signed 2nd attempt at calling patient and LVM. Also sent [employer] message. Allergies As of Date: 02/12/2024 Noted Allergy Reaction AMOXACILLIN (AMOXICILLIN) 03/09/2023 4 - Hives Comments: Skin test is negative. Challenge pending PENICILLINS 10/15/2020 4 - Hives Date Reviewed: 01/08/2024 Reviewed by: Nilton Zhang, LAUREN - Fully Assessed Reason for Visit: Colposcopy [1551] Prescriptions as of 02/16/2024 - medroxyPROGESTERone (PROVERA) 10 mg tablet Take 1 tablet by mouth once daily. - letrozole (FEMARA) 2.5 mg tablet Take 4 tablets by mouth once daily. - metFORMIN (GLUCOPHAGE) 850 mg tablet Take 1 tablet by mouth two times a day. - Follitropin Ila (GONAL-F RFF REDI-JECT) 300/0.5 unit/mL pnij Inject 75 Units subcutaneously once daily. - dexAMETHasone (DECADRON) 0.5 mg tablet Take 1 tablet by mouth once daily. - dexAMETHasone (DECADRON) 0.5 mg tablet Take 1 tablet by mouth once daily. - metFORMIN (GLUCOPHAGE) 850 mg tablet Take 1 tablet by mouth twice daily with meals. - spironolactone (ALDACTONE) 25 mg tablet Take 25 mg by mouth once daily. On hold for - bupropion HCl (BUPROBAN ORAL) Take 150 mg by mouth once daily. Problem List As Of Date 02/12/2024 Noted Resolved High blood pressure [I10] 10/16/2021 Pre-op exam [Z01.818] 10/30/2023 Class 3 severe obesity due to excess calories w*10/30/2023 Missed [O02.1] 10/30/2023 Encounter Status:Closed by CEE [facility] TIN ARIZMENDI ([id number]) 1985 F Date Time Provider Department 02/05/24 MICHEL JOSEPH During your visit today, we recorded the following information about you: Yancy Fajardo 02/05/2024 9:04 AM Signed Patient states she called Thursday and has gotten no response Ivy Gardner, RN 02/05/2024 10:07 AM Signed Pt requesting a blood hcg level, since full flow has not started, and she has only had some brown spotting. SO cycle Trigger/TI 01/10/,01/11,01/12. Pt said HPT was negative, and was questioning implantation bleeding . Hcg order placed. Ivy Gardner RN February 05, 2024 10:04 AM Nam Arias RN 02/05/2024 3:32 PM Signed Called patient to report negative HCG level. Patient expressed frustration with needing another consult after just meeting with Dr. Menchaca. Responded with heart and listened to patient frustration. She is agreeable to wait. Nam Arias RN February 05, 2024 3:32 PM Allergies As of Date: 02/05/2024 Noted Allergy Reaction AMOXACILLIN (AMOXICILLIN) 03/09/2023 4 - Hives Comments: Skin test is negative. Challenge pending PENICILLINS 10/15/2020 4 - Hives Date Reviewed: 01/08/2024 Reviewed by: Nilton Zhang RN - Fully Assessed Reason for Visit: Period due this week// never had a full flow [Other] Patient Update [1234] Primary Visit Diagnosis:Encounter for fertility testing [Z31.41] Order(s):HCG QUANTITATIVE [SQHCGQT] Order #: [id number] FUTURE Prescriptions as of 02/05/2024 - medroxyPROGESTERone (PROVERA) 10 mg tablet Take 1 tablet by mouth once daily. - letrozole (FEMARA) 2.5 mg tablet Take 4 tablets by mouth once daily. - metFORMIN (GLUCOPHAGE) 850 mg tablet Take 1 tablet by mouth two times a day. - Follitropin Ila (GONAL-F RFF REDI-JECT) 300/0.5 unit/mL pnij Inject 75 Units subcutaneously once daily. - dexAMETHasone (DECADRON) 0.5 mg tablet Take 1 tablet by mouth once daily. - dexAMETHasone (DECADRON) 0.5 mg tablet Take 1 tablet by mouth once daily. - metFORMIN (GLUCOPHAGE) 850 mg tablet Take 1 tablet by mouth twice daily with meals. - spironolactone (ALDACTONE) 25 mg tablet Take 25 mg by mouth once daily. On hold for - bupropion HCl (BUPROBAN ORAL) Take 150 mg by mouth once daily. Problem List As Of Date 02/05/2024 Noted Resolved High blood pressure [I10] 10/16/2021 Pre-op exam [Z01.818] 10/30/2023 Class 3 severe obesity due to excess calories w*10/30/2023 Missed [O02.1] 10/30/2023 Letter Text Encounter Status:Closed by LEONEL CABEZAS on 02/05/24 [facility] H[facility].beta subunit IA 3rd IS Q non 02-05-2024 SERUM B HCG,3RD I.S. <5 Normal [facility] Comment on above: Result Comment: NEW REFERENCE RANGE WEEKS (SINCE LMP) MIU/mL 3 WEEKS 5 - 50 4 WEEKS 5 - 426 5 WEEKS 18 - 7,340 6 WEEKS 1,080 - 56,500 7-8 WEEKS 7,650 - 229,000 9-12 WEEKS 25,700 - 288,000 13-16 WEEKS 13,300 - 254,000 17-24 WEEKS 4,060 - 165,400 25-40 WEEKS 3,640 - 117,000 MALES AND NON- FEMALES - <5 MIU/mL This test has been FDA approved for use in only. Elevated levels are not necessarily diagnostic for trophoblastic or nontrophoblastic neoplasms. Performed By: #### 2 0415-6 #### [facility] ([id number]) [address] [place] [address], [place] [address] Jerrell 02-01-2024 [facility] Telephone (REIBD) TIN ARIZMENDI ([id number]) 1985 F Date Time Provider Department 02/01/24 MICHEL JOSEPH During your visit today, we recorded the following information about you: Rukhsana Dennis 02/01/2024 11:30 AM Signed Unsure about cycle and has pressure but not cramping requests call back, started yesterday morning. Khurram Zendejas RN 02/01/2024 11:55 AM Signed Called the patient she verified her name and date of Patient did super ovulation no period not sure what to do Khurram Zendejas RN February 01, 2024 11:55 AM Ivy Gardner RN 02/01/2024 3:05 PM Signed Pt states negative HPT from SO#5 cycle with TI. Pt states she has an appointment with Dr. Joseph, but hopes to do another SO cycle with next period. Will confirm plan with the doctor and let the patient know recommendations. Pt verbalized understanding. Ivy Gardner RN February 01, 2024 3:04 PM Allergies As of Date: 02/01/2024 Noted Allergy Reaction AMOXACILLIN (AMOXICILLIN) 03/09/2023 4 - Hives Comments: Skin test is negative. Challenge pending PENICILLINS 10/15/2020 4 - Hives Date Reviewed: 01/08/2024 Reviewed by: Nilton Zhang RN - Fully Assessed Reason for Visit: unsure about cycle/it is odd [Other] Prescriptions as of 02/01/2024 - medroxyPROGESTERone (PROVERA) 10 mg tablet Take 1 tablet by mouth once daily. - letrozole (FEMARA) 2.5 mg tablet Take 4 tablets by mouth once daily. - metFORMIN (GLUCOPHAGE) 850 mg tablet Take 1 tablet by mouth two times a day. - Follitropin Ila (GONAL-F RFF REDI-JECT) 300/0.5 unit/mL pnij Inject 75 Units subcutaneously once daily. - dexAMETHasone (DECADRON) 0.5 mg tablet Take 1 tablet by mouth once daily. - dexAMETHasone (DECADRON) 0.5 mg tablet Take 1 tablet by mouth once daily. - metFORMIN (GLUCOPHAGE) 850 mg tablet Take 1 tablet by mouth twice daily with meals. - spironolactone (ALDACTONE) 25 mg tablet Take 25 mg by mouth once daily. On hold for - bupropion HCl (BUPROBAN ORAL) Take 150 mg by mouth once daily. Problem List As Of Date 02/01/2024 Noted Resolved High blood pressure [I10] 10/16/2021 Pre-op exam [Z01.818] 10/30/2023 Class 3 severe obesity due to excess calories w*10/30/2023 Missed [O02.1] 10/30/2023 Encounter Status:Closed by IVY GARDNER on 02/01/24 Normal [facility] C. trachomatis+N. gonorrhoea e DNA KINDRA+probe Ql (Unsp spec)on 01-21-2024 C. trachomatis rRNA KINDRA+probe Ql (Unsp spec) Negative Normal Negative for Chlamydia trachomatis by amplificaton [facility] Comment on above: Order Comment: Speci men Type: SWAB Ordering Facility[facility] Address: [address] [place] [address] Performed By: #### 3 6902-5 #### [facility] CLIA [id number] [address] [place] [address] [place] N. gonorrhoeae rRNA KINDRA+probe Ql (Unsp spec) Negative Normal Negative for Neisseria gonorrhoeae by amplification [facility] Comment on above: Order Comment: Speci men Type: SWAB Ordering Facility: [facility] Address: [address] [place] [address] Performed By: #### 3 6902-5 #### [facility] CLIA [id number] [address] [place] [address] [place] CNOVon 01-21-2024 CNOV Office Visit (OBGA ) UGOTIN ([id number]) 1985 F Date Time Provider Department 01/21/24 8:20 AM PEPE POPE [facility] During your visit today, we recorded the following information about you: Pulse Blood pressure Weight Height 66/minute 138/91 117.1 kg 1.626 m Pepe Pope MD 01/21/2024 8:55 AM Signed Tin is a 38 year old who presents for an annual gynecologic exam without complaints. Menses: anovulation, regular with ovulation inducing agents. 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: Sexual Activity: Yes; Male Contraception: No contraception data on record PAST MEDICAL HISTORY Diagnosis Date Abnormal Pap smear of cervix Complication of anesthesia vomiting after waking up Essential hypertension Hirsutism PCOS (polycystic ovarian syndrome) Sleep apnea 2020 PAST SURGICAL HISTORY Procedure Laterality Date COLPOSCOPY INDUCED DILATION AND CURETTAGE 10/30/2023 DILATION AND CURETTAGE, SUCTION MISSED , 1ST TRIMESTER LITHOTRIPSY XTRCORP SHOCK WAVE 04/14/2005 Lithotripsy NEPHROLITHOTOMY REMOVAL STAGE 1 2004 NEPHROLITHOTOMY REMOVAL STAGE 1 2014 REMOVAL GALLBLADDER 2017 FAMILY HISTORY Problem Relation Age of Onset Diabetes Mother other (pcos) Mother Diabetes Father Obstructive Sleep Apnea Maternal Grandfather Stroke Maternal Grandfather Ovarian cancer No Family History Cervical Cancer No Family History Breast Cancer No Family History Diabetes Maternal Grandfather Diabetes Paternal Grandmother Cancer Maternal Grandmother lung-smoker Cancer Paternal Grandfather stomach SOCIAL HISTORY Social History Tobacco Use Smoking status: Former Packs/day: 1.00 Years: 17.00 Additional pack years: 0.00 Total pack years: 17.00 Types: Cigarettes Smokeless tobacco: Never Substance Use Topics Alcohol use: Not Currently Drug use: Never REVIEW OF SYSTEMS Abdomen: No abdominal pain, nausea, vomiting, diarrhea, or constipation. No bloating, early satiety, indigestion, or increased flatulence. Bladder: No dysuria, gross hematuria, urinary frequency, urinary urgency, or incontinence. Breast: No breast lumps, nipple d/c, overlying skin changes, redness or skin retraction. Allergies and current medication updated:Yes EXAM: BP 138/91 Pulse 66 Ht 5' 4 (1.63m) Wt 258 lb 2.5 oz (117.1kg) LMP 08/16/2023 BMI 44.29 kg/(m2). GENERAL: pleasant, female in no apparent distress HEENT: Normocephalic, atraumatic, mucus membranes moist, and no lesions NECK: Supple, full range of motion, no adenopathy, and thyroid normal DERMATOLOGY: Normal, without lesions, non-icteric, and non-hirsute BREAST: soft, non-tender, symmetric, no dominant mass, normal nipple-areolar complex, no lymphadenopathy, and no nipple discharge CHEST: Normal inspiratory effort ABDOMEN: soft, non-tender, and no masses PELVIC: external genitalia normal, normal Bartholin's glands, urethra, [place]'s glands, no vulvar lesions, no cervical lesions, good vaginal support, physiologic discharge present, normal appearing perineal body and perianal region BIMANUAL: uterus normal size, shape and consistency, no adnexal masses, and non-tender RECTOVAGINAL: deferred. NEURO: alert and oriented x3,exam grossly non-focal EXTREMITIES: normal ASSESSMENT/PLAN: 1) Health maintenance: Pap done with HPV. 2) Contraception: none. Contraceptive options reviewed and information provided. 3) STD screening: Accepted STD check for Gonorrhea and Chlamydia. 4) Follow up one year or sooner as needed MD Niko Pittman Philip Chris, MD 02/08/2024 4:34 PM Signed Addended by: PEPE POPE on: 02/08/2024 04:34 PM Modules accepted: Orders Allergies As of Date: 01/21/2024 Noted Allergy Reaction AMOXACILLIN (AMOXICILLIN) 03/09/2023 4 - Hives Comments: Skin test is negative. Challenge pending PENICILLINS 10/15/2020 4 - Hives Date Reviewed: 01/08/2024 Reviewed by: Nilton Zhang RN - Fully Assessed Reason for Visit: Well Woman [1463] Primary Visit Diagnosis:Encounter for Papanicolaou smear for cervical cancer screening [Z12.4] Other Visit Diagnoses:Encounter for gynecological examination (general) (routine) without abnormal findings [Z01.419] Exposure to sexually transmitted disease (STD) [Z20.2] Class 3 severe obesity due to excess calories with serious comorbidity and body mass index (BM (more content not included)... Normal [facility] HIGH RISK HUMAN PAPILLOMA CHARLIE (HPV), PCR FOR DETECTION AND GENOTYPINGon 01-21-2024 HPV 16 Ag Ql (Unsp spec) Negative Normal Negative for HPV DNA high risk type 16 by PCR [facility] Comment on above: Order Comment: Speci men Type: FLUID SPECIMENOrdering Facility: [facility] Address: [address] [place] [address] Performed By: #### L [id number] ####[facility] [id number] [address] LABCLIA [id number] [place] [address] [place]#### HPVHRT ####[facility] [id number] [place] [address] [place] HPV 18 Ag Ql (Unsp spec) Negative Normal Negative for HPV DNA high risk type 18 by PCR [facility] Comment on above: Order Comment: Speci men Type: FLUID SPECIMENOrdering Facility: [facility] Address: [address] [place] [address] Performed By: #### L [id number] ####[facility]OR[facility] LABORATORYCLIA [id number] [address] LABCLIA [id number] [place] [address] [place]#### HPVHRT ####[facility] LABIA [id number] [place] [address] [place] HPV 31+33+35+39+45+51+52+56 +58+59+66+68 DNA KINDRA+probe Ql (Cvx) Positive for one or more of the following HPV DNA high risk types:31,33,35,39,45, 51,52,56,58,59,66,68 by PCR Abnormal Negative for HPV DNA high risk types: 31,33,35,39,45 ,51,52,56,58,5 9,66,68 by PCR. [facility] Comment on above: Order Comment: Speci men Type: FLUID SPECIMENOrdering Facility: [facility] Address: [address] [place] [address] Performed By: #### L [id number] ####JORGE LABORATORYCLIA [id number] [address] LABCLIA [id number] [place] [address] [place]#### HPVHRT ####[facility] LABCLIA [id number] [place] [address] [place] PAP TESTon 01-21-2024 ADEQUACY Normal [facility] Comment on above: Order Comment: Speci men Type: FLUID SPECIMENOrdering Facility: [facility] Address: [address] [place] [address] Result Comment: Sati sfactory for interpretation. No endocervical component Performed By: #### L [id number] ####JORGE LABORATORYCLIA [id number] [address] STATES OF [facility] LABCLIA [id number] [place] [address] [place]#### HPVHRT ####[facility] LABCLIA [id number] [place] [address] [place] CASE REPORT Normal [facility] Comment on above: Order Comment: Speci men Type: FLUID SPECIMENOrdering Facility: [facility] Address: [address] [place] [address] Result Comment: Gyne cologic Cytology Report Case: [id number] Authorizing Provider: Pepe Pope, Collected: 01/21/2024 08:44 AM Ordering Location: OB/Gynecology Received: 01/21/2024 04:22 PM First Screen: Clapacs, Tamia Rescreen: Manosky, Priya Specimen: Pap Test, ThinPrep, Cervix Performed By: #### L [id number] ####JORGE LABORATORYCLIA [id number] [place] [address] [place] [facility] LABCLIA [id number] [place] [id number] [place]#### HPVHRT ####[facility] LABCLIA [id number] [address] [address] [place] CLINICAL HISTORY, CYTOLOGY, SATELLITE DISH REPAIRER Routine Exam Normal [facility] Comment on above: Order Comment: Speci men Type: FLUID SPECIMENOrdering Facility: [facility] Address: [address] [place], [place] [id number] Performed By: #### L [id number] ####[facility] LABORATORYCLIA [id number] [place] [id number] [place] [facility] LABCLIA [id number] [place] [address] [place]#### HPVHRT ####[facility] LABCLIA [id number] [place] [address] [place] FINAL PERFORMING LAB Normal [facility] Comment on above: Order Comment: Speci men Type: FLUID SPECIMENOrdering Facility: [facility] Address: [address] [place] [address] Result Comment: Tech nical component, capacity planning analyst screening performed at [facility], [address] [place] [address] CLIA# [id number] Diagnostic interpretation performed at [facility], [address] [place] [address] CLIA# [id number] Appeals Rn: Kevon Cano M.D. Performed By: #### L [id number] ####[facility] LABORATORYCLIA [id number] [place] [address] [place] [facility] LABCLIA [id number] [place] [id number] [place]#### HPVHRT ####[facility] LABCLIA [id number] [place] [id number] [place] HPV REFLEX Yes HPV Normal [facility] Comment on above: Order Comment: Speci men Type: FLUID SPECIMENOrdering Facility: [facility] Address: [address] [place] [address] Performed By: #### L [id number] ####JORGE LABORATORYCLIA [id number] [place] [address] [place] [facility] LABCLIA [id number] [place] [address] [place]#### HPVHRT ####[facility] LABCLIA [id number] [place] [address] [place] INTERPRETATION, CYTOLOGY, SATELLITE DISH REPAIRER Normal [facility] Comment on above: Order Comment: Speci men Type: FLUID SPECIMENOrdering Facility: [facility] Address: [address] [place] [address] Result Comment: Nega tive for intraepithelial lesion or malignancy. Performed By: #### L [id number] ####JORGE LABORATORYCLIA [id number] [place] [id number] [place] [facility] LABCLIA [id number] [place] [address] [place]#### HPVHRT ####[facility] LABCLIA [id number] [place] [id number] [place] LMP 08/16/2023 Normal [facility] Comment on above: Order Comment: Speci men Type: FLUID SPECIMENOrdering Facility: [facility] Address: [address] [place] [address] Performed By: #### L [id number] ####JORGE LABORATORYCLIA [id number] [place] [id number] [place] [facility] LABCLIA [id number] [place] [address] [place]#### HPVHRT ####[facility] LABCLIA [id number] [place] [address] [place] PAP DISCLAIMER COMMENT The Pap Smear is a screening test for cervical cancer. False negative results occur with all screening tests, emphasizing the need for rescreening at recommended intervals, and clinical correlation. Normal [facility] Comment on above: Order Comment: Speci men Type: FLUID SPECIMENOrdering Facility: [facility] Address: [address] [place] [address] Performed By: #### L [id number] ####JORGE LABORATORYCLIA [id number] [address] LABCLIA [id number] [place] [address] [place]#### HPVHRT ####[facility] LABCLIA [id number] [place] [address] [place] PAP CLAIM CLERK COMMENT This specimen has been analyzed by the ThinPrep Imaging System, an automated imaging and review system, which assists the laboratory in evaluating cells on ThinPrep Pap tests. Following automated imaging, selected pacheco from every slide are reviewed by a capacity planning analyst. Normal [facility] Comment on above: Order Comment: Speci men Type: FLUID SPECIMENOrdering Facility: [facility] Address: [address] [place] [address] Performed By: #### L [id number] ####JORGE LABORATORYCLIA [id number] [address] LABCLIA [id number] [place] [address] [place]#### HPVHRT ####[facility] LABCLIA [id number] [place] [address] [place] Follicle Diameter USon 01-10 Indication Follicle monitoring Impression Scan for follicle monitoring. Recommendations Follow up as clinically indicated. Method Transvaginal ultrasound examination. 3D ultrasound examination Uterus Uterus: Visualized Uterus position: anteverted Endometrium: three-layer pattern Endometrial thickness, total 6.0 mm Right Ovary Rt ovary: Visualized Outline: smooth Rt ovarian follicle(s): Follicles identified Rt ovarian follicles other findings: # antral follicles 20+< 10 mm Left Ovary Lt ovary: Visualized Outline: smooth Lt ovarian follicle(s): Follicles identified Lt ovarian follicle D1 20.0 mm Lt ovarian follicle D2 18.7 mm Lt ovarian follicle mean 19.3 mm Lt ovarian follicle vol 3.654 cm Lt ovarian follicle D1 17.1 mm Lt ovarian follicle D2 18.1 mm Lt ovarian follicle mean 17.6 mm Lt ovarian follicle vol 2.767 cm Lt ovarian follicles other findings: # antral follicles 20< 10 mm Cul de Sac Visualized. no free fluid visualized Performed By: Nilton Bates RDMS Read By: Odalis Parikh M.D. MATERNAL MEDICINE [facility] Radiology Study observation (narrative) Robe mars [facility] 01-08-2024 [facility] Telephone (WHREBA) TIN ARIZMENDI ([id number]) 1985 F Date Time Provider Department 01/08/[address] [facility] During your visit today, we recorded the following information about you: Allergies As of Date: 01/08/2024 Noted Allergy Reaction AMOXACILLIN (AMOXICILLIN) 03/09/2023 4 - Hives Comments: Skin test is negative. Challenge pending PENICILLINS 10/15/2020 4 - Hives Date Reviewed: 01/08/2024 Reviewed by: Nilton Zhang, LAUREN - Fully Assessed Reason for Visit: Financial Clearance [Other] Cmt: Please verify if patient is cleared for upcoming cycle. Prescriptions as of 01/11/2024 - medroxyPROGESTERone (PROVERA) 10 mg tablet Take 1 tablet by mouth once daily. - letrozole (FEMARA) 2.5 mg tablet Take 4 tablets by mouth once daily. - metFORMIN (GLUCOPHAGE) 850 mg tablet Take 1 tablet by mouth two times a day. - Follitropin Ila (GONAL-F RFF REDI-JECT) 300/0.5 unit/mL pnij Inject 75 Units subcutaneously once daily. - dexAMETHasone (DECADRON) 0.5 mg tablet Take 1 tablet by mouth once daily. - dexAMETHasone (DECADRON) 0.5 mg tablet Take 1 tablet by mouth once daily. - metFORMIN (GLUCOPHAGE) 850 mg tablet Take 1 tablet by mouth twice daily with meals. - spironolactone (ALDACTONE) 25 mg tablet Take 25 mg by mouth once daily. On hold for - bupropion HCl (BUPROBAN ORAL) Take 150 mg by mouth once daily. Problem List As Of Date 01/08/2024 Noted Resolved High blood pressure [I10] 10/16/2021 Pre-op exam [Z01.818] 10/30/2023 Class 3 severe obesity due to excess calories w*10/30/2023 Missed [O02.1] 10/30/2023 Encounter Status:Closed by JUANA LIU on 01/11/24 Normal [facility] Follicle Diameter USon 01-07 Indication Follicle monitoring Impression Right Ovary: Follicle(s): Size 10.6 mm x 4.5 mm. Mean 7.6 mm. Vol 0.114 cm . # antral follicles 20 < 10 mm Left Ovary: Follicle(s): 1. Size 14.7 mm x 13.6 mm. Mean 14.1 mm. Vol 1.427 cm 2. Size 14.1 mm x 12.1 mm. Mean 13.1 mm. Vol 1.083 cm 3. Size 11.1 mm x 6.6 mm. Mean 8.8 mm. Vol 0.252 cm # antral follicles 25 < 10 mm Recommendations Follow up as clinically indicated. Method Transvaginal ultrasound examination. 3D ultrasound examination Uterus Uterus: Visualized Uterus position: anteverted Endometrium: single-layer pattern Endometrial thickness, total 3.3 mm Right Ovary Rt ovary: Visualized Rt ovarian follicle(s): Follicles identified Rt ovarian follicle D1 10.6 mm Rt ovarian follicle D2 4.5 mm Rt ovarian follicle mean 7.6 mm Rt ovarian follicle vol 0.114 cm Rt ovarian follicles other findings: # antral follicles 20 < 10 mm Left Ovary Lt ovary: Visualized Lt ovarian follicle(s): Follicles identified Lt ovarian follicle D1 14.7 mm Lt ovarian follicle D2 13.6 mm Lt ovarian follicle mean 14.1 mm Lt ovarian follicle vol 1.427 cm Lt ovarian follicle D1 14.1 mm Lt ovarian follicle D2 12.1 mm Lt ovarian follicle mean 13.1 mm Lt ovarian follicle vol 1.083 cm Lt ovarian follicle D1 11.1 mm Lt ovarian follicle D2 6.6 mm Lt ovarian follicle mean 8.8 mm Lt ovarian follicle vol 0.252 cm Lt ovarian follicles other findings: # antral follicles 25 < 10 mm Cul de Sac Visualized. no free fluid visualized Performed By: Melodie Fitzgerald RDMS Read By: Tiffany Gonzalez MD MATERNAL MEDICINE [facility] Radiology Study observation (narrative) Robe mars [facility] Follicle Diameter USon 12-31 [facility] [id number] 12-02-2023 HNO ID: [id number] Author: DMITRY MENCHACA MD Service: ? Author Type: Physician Type: Filed: 12/13/2023 21:13 Note Text: Summary: LOUISA TREATMENT PLAN PLAN: MPA 10 mg X 10 days to induce menses MET 850 mg BID daily LET 10 mg CD 3-7 DEX 0.5 mg CD3-OPK+ FSH 75 daily (start CD 6) through trigger injection Maximum 3-4 ovulatory cycles; thereafter, if no conception has occurred, schedule a virtual visit to discuss additional work up, if any, and future treatment options Dmitry Menchaca MD [facility] ANES POSTPROC EVALon 024 ANES POSTPROC EVAL HNO ID: [id number] Author: JARRETT CORDOVA MD Service: Anesthesiology Author Type: Physician Type: Anesthesia Postprocedure Evaluation Filed: 10/30/2023 13:24 Note Text: POST ANESTHESIA EVALUATION NOTE : 1985 Procedure Summary Date: 10/30/23 Room / Location: [facility] Anesthesia Start: 1156 Anesthesia Stop: 1228 Procedure: DILATION AND CURETTAGE, SUCTION (Abdomen) Diagnosis: Missed (Missed [O02.1]) Surgeons: Dmitry Menchaca MD Responsible Provider: Jarrett Cordova MD Anesthesia Type: general ASA Status: 3 Anesthesia Type: general Airway Type: LMA Last Vitals Vitals Value Taken Time BP 116/73 10/30/23 1316 Temp 36.6 ?C (97.9 ?F) 10/30/23 1226 Pulse 63 10/30/23 1323 Resp 24 10/30/23 1323 SpO2 90 % 10/30/23 1323 Vitals shown include unfiled device data. Post Anesthesia Patient Status Patient Evaluation: PACU. PACU/ICU Patient Condition: stable. Neurological Status: aware and responsive. Pulmonary Status: breathing comfortably on room air Airway Control: returned to baseline unsupported. Cardiovascular Status: stable. Pain Management: clinically adequate Postoperative Hydration: acceptable. Intraoperative Events: no significant anesthesia events Post Operative Nausea/Vomiting Status: no significant post operative nausea or vomiting Recommendation: continue current plan of care. Anesthesia Observations No Documentation SIGNATURE: Jarrett Cordova MD PATIENT NAME: Tin Arizmendi DATE: October 30, 2023 TIME: 1:24 PM CSN: [id number] [facility] ANES PRE-OPon 10-30-2023 ANES PRE-OP HNO ID: [id number] Author: JARRETT CORDOVA MD Service: Anesthesiology Author Type: Physician Type: Anesthesia Preprocedure Evaluation Filed: 10/30/2023 10:59 Note Text: OB ANESTHESIA PRE-PROCEDURE ASSESSMENT PATIENT NAME: Tin Arizmendi : 1985 [employer] ROS Relevant Problems CARDIO (+) High blood pressure I - PHYSICAL EVALUATION AIRWAY Patient intubated: No. Tracheostomy tube not present Mallampati: II. TM distance: >3 FB. Neck ROM: full ROM without neurological symptoms. Mouth opening: adequate. Short neck: no. Thick neck: no DENTAL Dental findings: teeth intact. II - ANESTHESIA PLAN ASA Score: 3 Anesthetic Plan: general Airway type: LMA NPO Status: adequate Beta Denise Monitoring Plan Monitoring plan: standard ASA. Post Procedure Analgesic Plan Postoperative analgesic plan: multimodal analgesia. Informed Consent Anesthetic risks, benefits, alternatives, personnel and consent discussed: yes. Patient / Responsible Alliance Party agrees to proceed: yes Patient / Surrogate agrees to blood products: blood products not planned Significant changes in the patient condition since the History and Physical, not otherwise documented in primary service progress note: no. Potential Anesthesia issues that may suggest increased risk of complications or contraindication to planned procedure: none. [facility] CHART REVIEW: ACTIVE PROBLEM LIST High Blood Pressure PAST MEDICAL HISTORY Diagnosis Date - Abnormal Pap smear of cervix - Complication of anesthesia vomiting after waking up - Essential hypertension - Hirsutism - PCOS (polycystic ovarian syndrome) - Sleep apnea 2020 PAST SURGICAL HISTORY Procedure Laterality Date - COLPOSCOPY - LITHOTRIPSY XTRCORP SHOCK WAVE 04/18 Lithotripsy - NEPHROLITHOTOMY REMOVAL STAGE 1 2004 - NEPHROLITHOTOMY REMOVAL STAGE 1 2013 - REMOVAL GALLBLADDER 2017 FAMILY HISTORY Problem Relation Age of Onset - Diabetes Mother - other (pcos) Mother - Diabetes Father - Obstructive Sleep Apnea Maternal Grandfather - Stroke Maternal Grandfather - Ovarian cancer No Family History - Cervical Cancer No Family History - Breast Cancer No Family History - Diabetes Maternal Grandfather - Diabetes Paternal Grandmother - Cancer Maternal Grandmother lung-smoker - Cancer Paternal Grandfather stomach Social History Tobacco Use - Smoking status: Some Days Packs/day: 0.50 Years: 16.00 Additional pack years: 0.00 Total pack years: 8.00 Types: Cigarettes - Smokeless tobacco: Never Substance Use Topics - Alcohol use: Never - Drug use: Never dexAMETHasone (DECADRON) 0.5 mg tablet, Take 1 tablet by mouth once daily. (Patient taking differently: Take 0.5 mg by mouth once daily. On hold for ), Disp: 30 tablet, Rfl: 3 metFORMIN (GLUCOPHAGE) 850 mg tablet, Take 1 tablet by mouth twice daily with meals. (Patient taking differently: Take 850 mg by mouth two times a day with meals. On hold for ), Disp: 60 tablet, Rfl: 3 spironolactone (ALDACTONE) 25 mg tablet, Take 25 mg by mouth once daily. On hold for , Disp: , Rfl: medroxyPROGESTERone (PROVERA) 10 mg tablet, Take 1 tablet by mouth once daily. (Patient taking differently: Take 10 mg by mouth once daily. As needed to induce period (on hold for )), Disp: 10 tablet, Rfl: 3, as needed bupropion HCl (BUPROBAN ORAL), Take 150 mg by mouth once daily. (Patient not taking: Reported on 10/30/2023), Disp: , Rfl: , Not Taking Inpatient medications reviewed in EPIC I have interviewed and examined the patient. I have reviewed the medical record and/or the pre-anesthesia evaluation, pertinent labs, and test results. This contains updated information obtained within 48 hours of Surgery/Procedure. SIGNATURE: Jarrett Cordova MD PATIENT NAME: Tin Arizmendi DATE: October 30, 2023 TIME: 10:59 AM : 1985 [facility] HISTORY PHYSICALon HISTORY PHYSICAL HNO ID: [id number] Author: SONYA OLSON APRN.INTERNATIONAL FLIGHT ATTENDANT Service: Anesthesiology Author Type: Nurse Practitioner Type: H&P Filed: 10/30/2023 11:47 Note Text: HISTORY AND PHYSICAL EXAMINATION Tin Arizmendi 1985 SERVICE DATE: 10/30/2023 SERVICE TIME: 10:10 AM PRIMARY CARE PHYSICIAN: No primary care provider on file. SURGEON: Surgeon(s) and Role: * Dmitry Menchaca MD - Primary ANESTHESIA: General DIAGNOSIS: Missed [O02.1] PROCEDURE: Procedure(s): DILATION AND CURETTAGE, SUCTION (N/A) Subjective CHIEF COMPLAINT: missed The reason for this visit is to perform a comprehensive review of the patient's past medical history, assess their current health status and obtain any additional testing required based on anesthesia guidelines. We will also identify any potential anesthesia problems or contraindications to the planned procedure. HPI: This is a 37 year old female who presents with missed AB, states 8 weeks gestation. Denies vaginal bleeding, has been having pelvic cramping. Pt presents for DANTN with Dr Menchaca. METS: Climb a flight of stairs or walk up a hill (5.50 METs) FUNCTIONAL STATUS: Independent PAST MEDICAL HISTORY Diagnosis Date Abnormal Pap smear of cervix Complication of anesthesia vomiting after waking up Essential hypertension Hirsutism PCOS (polycystic ovarian syndrome) Sleep apnea 2020 PAST SURGICAL HISTORY Procedure Laterality Date COLPOSCOPY LITHOTRIPSY XTRCORP SHOCK WAVE 04/18 Lithotripsy NEPHROLITHOTOMY REMOVAL STAGE 1 2004 NEPHROLITHOTOMY REMOVAL STAGE 1 2013 REMOVAL GALLBLADDER 2017 FAMILY HISTORY Problem Relation Age of Onset Diabetes Mother other (pcos) Mother Diabetes Father Obstructive Sleep Apnea Maternal Grandfather Stroke Maternal Grandfather Ovarian cancer No Family History Cervical Cancer No Family History Breast Cancer No Family History Diabetes Maternal Grandfather Diabetes Paternal Grandmother Cancer Maternal Grandmother lung-smoker Cancer Paternal Grandfather stomach Social History Tobacco Use Smoking status: Former Packs/day: 1.00 Years: 17.00 Additional pack years: 0.00 Total pack years: 17.00 Types: Cigarettes Smokeless tobacco: Never Substance Use Topics Alcohol use: Not Currently Drug use: Never Prior to Admission medications as of 10/30/23 1144 Medication Sig Last Dose Taking dexAMETHasone (DECADRON) 0.5 mg tablet Take 1 tablet by mouth once daily. Patient taking differently: Take 0.5 mg by mouth once daily. On hold for metFORMIN (GLUCOPHAGE) 850 mg tablet Take 1 tablet by mouth twice daily with meals. Patient taking differently: Take 850 mg by mouth two times a day with meals. On hold for spironolactone (ALDACTONE) 25 mg tablet Take 25 mg by mouth once daily. On hold for medroxyPROGESTERone (PROVERA) 10 mg tablet Take 1 tablet by mouth once daily. Patient taking differently: Take 10 mg by mouth once daily. As needed to induce period (on hold for ) as needed bupropion HCl (BUPROBAN ORAL) Take 150 mg by mouth once daily. Patient not taking: Reported on 10/30/2023 Not Taking ALLERGIES Allergen Reactions Amoxacillin [Amoxic* Hives Skin test is negative. Challenge pending Penicillins Hives COMPLETE REVIEW OF SYSTEMS: GENERAL: No weight loss, malaise or fevers RESPIRATORY: Negative for cough, hemoptysis, wheezing, COPD, dyspnea or shortness of breath, NIKO-CPAP intermittent compliance with Cardiac: Negative for chest pain, leg swelling, CHF or palpitations, +HTN GI: No nausea, vomiting, or diarrhea : No history of dysuria, frequency or incontinence MUSCULOSKELETAL: Negative for joint pain or swelling, back pain or muscle pain PSYCH: Negative for sleep disturbance, mood disorder and recent psychosocial stressors ENDOCRINE:Denies diabetes and thyroid problems NEURO: No Hx seizures, tremors or CVA Heme/Onc: No hx blood clots, clotting disorders, or cancer Objective PHYSICAL EXAM: 10/30/23 1039 BP: 133/84 Resp: 16 Temp: 36.2 ?C (97.2 ?F) TempSrc: Temporal SpO2: 95% Weight: 116.1 kg (256 lb) Height: 162.6 cm (5' 4 ) Body mass index is 43.94 kg/m?. MENTAL STATUS: alert, oriented to person, place and time HEENT: Normocephalic/atrauma tic, pharynx clear LUNGS: Lungs clear to auscultation, Good diaphragmatic excursion CARDIAC: Normal S1 and S2; no rubs, murmurs, or gallops ABDOMEN: Soft, nontender EXTREMITIES: Extremities normal, no deformities, edema, clubbing or skin discoloration. Good capillary refill. Diagnostic tests reviewed for today's visit: Lab Value Units Date High Low HB No results within date range. HCT No results within date range. WBC No results within date range. PLT No results within date range. NA No results within date range. K No results within date range. GLUC No results within date range. BUN No results within date range. CREAT No r (more content not included)... Normal [facility] OPERATIVE NOon 10-30-2023 OPERATIVE NO HNO ID: [id number] Author: DMITRY MENCHACA MD Service: ? Author Type: Physician Type: Operative Report Filed: 10/30/2023 12:28 Note Text: Procedure: Dilation and Curettage Pre-Op/Pre-Procedure Diagnosis: Missed GA: 9 weeks EGA Post-Op/Post-Procedur e Diagnosis: Same as pre-op diagnosis Antibiotic: None Procedure Details: Patient was taken to the operating room where the sign-in and time out were completed. General anesthesia was induced and found to be adequate. She was placed in a dorsal lithotomy position with Tomasz stirrups with careful attention not to hyperflex or hyperextend the knees or hips. SCDs were placed and turned on for DVT prophylaxis. Patient was prepped and draped in the normal sterile manner. Examination under anesthesia performed and uterus was noted to be midposition. A speculum was placed in the vagina and cervix was grasped with a tenaculum. Cervix was gently dilated and already dilated to 8 mm to allow passage of # 8 suction curette. Good hemostasis was noted and all instruments were removed. Sign-out was completed. IV Fluids: 500 mL Urine Output: NA mL Estimated Blood Loss: 50 mL Specimens: Products of conception Blood Type: 03/12/2023: O; Positive Rhophylac administered in the past 14 days: No Rhophylac ordered today: No Dmitry Menchaca MD October 30, 2023 12:28 PM Normal [facility] SURGICAL PATHOLOGYon 10-30- 024 CASE REPORT Normal [facility] Comment on above: Order Comment: Speci men Type: TISSUE SPECIMENOrdering Facility: [facility] Address: [address] [place] [address] Result Comment: Surg ical Pathology Report Case: [id number] Authorizing Provider: Dmitry Menchaca MD Collected: 10/30/2023 12:12 PM Ordering Location: [facility] Received: 10/30/2023 03:03 PM Pathologist: Za Tillman DO Specimen: PRODUCTS OF CONCEPTION Performed By: #### S ####[facility] LABORATORYCLIA [id number] [address] STATES OF [facility] CLINICAL HISTORY Normal [facility] Comment on above: Order Comment: Speci men Type: TISSUE SPECIMENOrdering Facility: [facility] Address: [address] [place] [address] Result Comment: Pre- op diagnosis: Missed [O02.1] Performed By: #### S ####[facility] LABORATORYCLIA [id number] [address] OF [facility] FINAL DIAGNOSIS Normal [facility] Comment on above: Order Comment: Speci men Type: TISSUE SPECIMENOrdering Facility: [facility] Address: [address] [place] [address] Result Comment: A. P roducts of conception, dilation and curettage: - Chorionic villi and decidualized endometrium consistent with products of conception. Performed By: #### S ####[facility] LABORATORYCLIA [id number] [address] FINAL PERFORMING LAB Normal [facility] Comment on above: Order Comment: Speci men Type: TISSUE SPECIMENOrdering Facility: [facility] Address: [address] [place] [address] Result Comment: Diag nostic interpretation performed at [facility], [address] [place] [address] CLIA# [id number] Appeals Rn: Charly Main M.D. Performed By: #### S ####[facility] LABORATORYCLIA [id number] [address] GROSS DESCRIPTION Normal [facility] Comment on above: Order Comment: Speci men Type: TISSUE SPECIMENOrdering Facility: [facility] Address: [address] [place] [address] Result Comment: A. P RODUCTS OF CONCEPTION Received in formalin in a suction apparatus labeled as products of conception are multiple pale pink-butt, spongy and membranous tissue fragments admixed with some clotted blood aggregating to 7 x 6.5 x 0.8 cm. Spongy tissue consistent with possible villous tissue is identified. Vesicles and tissue are not identified. Spinner Open End sections are submitted in 3 cassettes. Gross examination performed at [facility], [address] [place] [address] CLIA# [id number] RSA November 02, 2023 12:56 PM Performed By: #### S ####[facility] LABORATORYCLIA [id number] [address] Examination level ultrasound on 10-23-2023 [facility] Jerrell 10-15-2023 NAVIN Telephone (WHREBA) KILOTIN FERNANDES ([id number]) 1985 F Date Time Provider Department 10/15/23 DMITRY MENCHACA WHREBA During your visit today, we recorded the following information about you: Juana Liu 10/15/2023 11:16 AM Signed Patient is currently and she is not sure if she will still need her appt with Dr. Menchaca on 10/21 or not. Ivy Gardner, RN 10/15/2023 11:32 AM Signed Pt will cancel appointment with Dr. Menchaca since she is and moving on to OB. Ivy Gardner RN October 15, 2023 11:32 AM Allergies As of Date: 10/15/2023 Noted Allergy Reaction AMOXACILLIN (AMOXICILLIN) 03/09/2023 4 - Hives Comments: Skin test is negative. Challenge pending PENICILLINS 10/15/2020 4 - Hives Date Reviewed: 08/28/2023 Reviewed by: Ivy Gradner, RN - Fully Assessed Reason for Visit: Appointment [186] Prescriptions as of 10/15/2023 - dexAMETHasone (DECADRON) 0.5 mg tablet Take 1 tablet by mouth once daily. - metFORMIN (GLUCOPHAGE) 850 mg tablet Take 1 tablet by mouth twice daily with meals. - spironolactone (ALDACTONE) 25 mg tablet Take 25 mg by mouth once daily. - medroxyPROGESTERone (PROVERA) 10 mg tablet Take 1 tablet by mouth once daily. - bupropion HCl (BUPROBAN ORAL) Take 150 mg by mouth once daily. Problem List As Of Date: 10/15/2023 (None) Encounter Status:Closed by IVY GARDNER on 10/15/23 Normal [facility] Complete Blood Count Auto Di ffon 10-01-2023 Basophils (Bld) [#/Vol] 0.2 10*3/uL Normal 0.0-0.2 [facility] Comment on above: Result Comment: PERF ORMED BY: [place] [address] PATHOLOGIST PHOTOENGRAVING HELPER AMISHA OWEN M.D. Performed By: #### C MP, HCGQNT, CBC #### [address] Basophils/100 WBC (Bld) 1.2 % Normal . [facility] Comment on above: Performed By: #### C MP, HCGQNT, CBC #### [address] Eosinophils (Bld) [#/Vol] 0.3 10*3/uL Normal 0.0-0.45 [facility] Comment on above: Performed By: #### C MP, HCGQNT, CBC #### [address] Eosinophils/100 WBC (Bld) 2.0 % Normal . [facility] Comment on above: Performed By: #### C MP, HCGQNT, CBC #### [address] Erythrocyte distribution width (RBC) [Ratio] 14.3 % Normal 11.9-15.3 [facility] Comment on above: Performed By: #### C MP, HCGQNT, CBC #### [address] Hematocrit (Bld) [Volume fraction] 41.0 % Normal 34.0-46.4 [facility] Comment on above: Performed By: #### C MP, HCGQNT, CBC #### [address] Hemoglobin (Bld) [Mass/Vol] 14.2 g/dL Normal 11.8-15.4 [facility] Comment on above: Performed By: #### C MP, HCGQNT, CBC #### [address] Lymphocytes (Bld) [#/Vol] 4.0 10*3/uL Normal 1.00-4.8 [facility] Comment on above: Performed By: #### C MP, HCGQNT, CBC #### [facility] [address] Lymphocytes/100 WBC (Bld) 27.4 % Normal . [facility] Comment on above: Performed By: #### C MP, HCGQNT, CBC #### [facility] [address] MCH (RBC) [Entitic mass] 31.0 pg Normal 24.7-34.3 [facility] Comment on above: Performed By: #### C MP, HCGQNT, CBC #### [address] MCV (RBC) [Entitic vol] 89.8 fL Normal 80-100 F [facility] Comment on above: Performed By: #### C MP, HCGQNT, CBC #### [address] Mean Corpuscular HGB Conc 34.6 g/dL Normal 32.0-35.0 [facility] Comment on above: Performed By: #### C MP, HCGQNT, CBC #### [address] Monocytes (Bld) [#/Vol] 0.9 10*3/uL High 0.0-0.8 [facility] Comment on above: Performed By: #### C MP, HCGQNT, CBC #### [place] [address] [place] Monocytes/100 WBC (Bld) 18.80 % Normal 0.00-20.00 F [facility] Comment on above: Performed By: #### C MP, HCGQNT, CBC #### [place] [address] [place] Monocytes/100 WBC (Bld) 6.3 % Normal . [facility] Comment on above: Performed By: #### C MP, HCGQNT, CBC #### [address] Neutrophils (Bld) [#/Vol] 9.2 10*3/uL High 1.8-7.7 [facility] Comment on above: Performed By: #### C MP, HCGQNT, CBC #### [address] Neutrophils/100 WBC (Bld) 63.1 % Normal . [facility] Comment on above: Performed By: #### C MP, HCGQNT, CBC #### [address] NRBC% 0.0 /100{WBC} Normal 0-0.5 [facility] Comment on above: Performed By: #### C MP, HCGQNT, CBC #### [address] Platelet mean volume (Bld) [Entitic vol] 6.7 fL Normal 6.3-10.7 [facility] Comment on above: Performed By: #### C MP, HCGQNT, CBC #### [address] Platelets (Bld) [#/Vol] 360 10*3/uL Normal 150-450 [facility] Comment on above: Performed By: #### C MP, HCGQNT, CBC #### [address] RBC (Bld) [#/Vol] 4.56 10*6/uL Normal 3.60-5.00 [facility] Comment on above: Performed By: #### C MP, HCGQNT, CBC #### [address] WBC (Bld) [#/Vol] 14.6 10*3/uL High 3.8-11.6 [facility] Comment on above: Performed By: #### C MP, HCGQNT, CBC #### [address] Comprehensive Metabolic Pane miguel 10-01-2023 Albumin [Mass/Vol] 4.1 g/dL Normal 3.5-5.7 [facility] Comment on above: Performed By: #### C MP, HCGQNT, CBC #### [facility] [address] [place] [address] [place] Albumin/Globulin [Mass ratio] 1.3 {ratio} Normal [facility] Comment on above: Performed By: #### C MP, HCGQNT, CBC #### [facility] [address] ALP [Catalytic activity/Vol] 54 U/L Normal 34-104 [facility] Comment on above: Performed By: #### C MP, HCGQNT, CBC #### [facility] [address] ALT [Catalytic activity/Vol] 16 U/L Normal 7-52 [facility] Comment on above: Performed By: #### C MP, HCGQNT, CBC #### [facility] [address] Anion gap [Moles/Vol] Not performed Normal 6.0-15.0 [facility] Comment on above: Performed By: #### C MP, HCGQNT, CBC #### [facility] [address] AST [Catalytic activity/Vol] 20 U/L Normal 13-39 [facility] Comment on above: Performed By: #### C MP, HCGQNT, CBC #### [facility] [address] Bilirubin [Mass/Vol] 0.4 mg/dL Normal 0.3-1.0 [facility] Comment on above: Performed By: #### C MP, HCGQNT, CBC #### [facility] [address] [place] [address] [place] Calcium [Mass/Vol] 9.2 mg/dL Normal 8.6-10.3 [facility] Comment on above: Performed By: #### C MP, HCGQNT, CBC #### [facility] [address] [place] [address] [place] Chloride [Moles/Vol] 104 mmol/L Normal 98-107 [facility] Comment on above: Performed By: #### C MP, HCGQNT, CBC #### [facility] [address] CO2 [Moles/Vol] 22.5 mmol/L Normal 21.0-31.0 [facility] Comment on above: Performed By: #### C MP, HCGQNT, CBC #### [facility] [address] Creatinine [Mass/Vol] 0.74 mg/dL Normal 0.60-1.20 [facility] Comment on above: Performed By: #### C MP, HCGQNT, CBC #### [facility] [address] [place] [address] [place] Creatinine Clr Calc Pharmacy 130.63 [facility] Comment on above: Performed By: #### C MP, HCGQNT, CBC #### [facility] [address] GFR/1.73 sq M.predicted MDRD (S/P/Bld) [Vol rate/Area] mL/min/{1.73_m2} [facility] Comment on above: Performed By: #### C MP, HCGQNT, CBC #### [facility] [address] Globulin (S) [Mass/Vol] 3.2 g/dL Normal [facility] Comment on above: Performed By: #### C MP, HCGQNT, CBC #### [facility] [address] Glucose [Mass/Vol] 89 mg/dL Normal 70-100 [facility] Comment on above: Result Comment: [facility] Glucose Reference Range is dependent on time and content of last meal. Glucose of more than 200 mg/dL in a nonstressed, ambulatory subject supports the diagnosis of Diabetes Mellitus. ADA recommended reference range Performed By: #### C MP, HCGQNT, CBC #### [facility] [address] Potassium Normal 3.5-5.1 [facility] Comment on above: Result Comment: Spec imen hemolyzed, redraw requested Performed By: #### C MP, HCGQNT, CBC #### [facility] [address] [place] [address] [place] Protein [Mass/Vol] 7.3 g/dL Normal 6.4-8.9 [facility] Comment on above: Performed By: #### C MP, HCGQNT, CBC #### [facility] [address] [place] [address] [place] Sodium [Moles/Vol] 136 mmol/L Normal 136-145 [facility] Comment on above: Performed By: #### C MP, HCGQNT, CBC #### [facility] [address] Urea nitrogen [Mass/Vol] 10 mg/dL Normal 7-25 [facility] Comment on above: Performed By: #### C MP, HCGQNT, CBC #### [facility] [address] [place] [address] [place] Dipstick and Microscopicon 0 10-01-2023 Appearance (U) Slightly Cloudy Critically abnormal Clear [facility] Comment on above: Order Comment: Name Collection Type:: Clean-Voided Midstream Performed By: #### U HCG, ADDONUAPLUS #### [facility] [address] [place] [address] [place] Bacteria,Urine 2+ High None Seen [facility] Comment on above: Order Comment: Name Collection Type:: Clean-Voided Midstream Performed By: #### U HCG, ADDONUAPLUS #### [facility] [address] [place] [address] [place] Bilirubin,Urine Negative Normal Negative [facility] Comment on above: Order Comment: Name Collection Type:: Clean-Voided Midstream Performed By: #### U HCG, ADDONUAPLUS #### [facility] [address] [place] [address] [place] Color (U) Yellow Normal Yellow [facility] Comment on above: Order Comment: Name Collection Type:: Clean-Voided Midstream Performed By: #### U HCG, ADDONUAPLUS #### [facility] [address] [place] [address] [place] Glucose Ql (U) Normal Normal Normal [facility] Comment on above: Order Comment: Name Collection Type:: Clean-Voided Midstream Performed By: #### U HCG, ADDONUAPLUS #### [facility] [address] [place] [address] Ketones Ql (U) Negative Normal Negative [facility] Comment on above: Order Comment: Name Collection Type:: Clean-Voided Midstream Performed By: #### U HCG, ADDONUAPLUS #### [facility] [address] [place] [address] Leukocyte esterase Test strip Ql (U) Negative Normal Negative [facility] Comment on above: Order Comment: Name Collection Type:: Clean-Voided Midstream Performed By: #### U HCG, ADDONUAPLUS #### [facility] [address] [place] [address] Nitrite,Urine Negative Normal Negative [facility] Comment on above: Order Comment: Name Collection Type:: Clean-Voided Midstream Performed By: #### U HCG, ADDONUAPLUS #### [facility] [address] [place] [address] Occult Blood,Urine 2+ High Negative [facility] Comment on above: Order Comment: Name Collection Type:: Clean-Voided Midstream Performed By: #### U HCG, ADDONUAPLUS #### [facility] [address] [place] [address] pH (U) 6.0 [pH] Normal 5.0-9.0 [facility] Comment on above: Order Comment: Name Collection Type:: Clean-Voided Midstream Performed By: #### U HCG, ADDONUAPLUS #### [facility] [address] [place] [address] Protein (U) [Mass/Vol] 100 mg/dL High Negative [facility] Comment on above: Order Comment: Name Collection Type:: Clean-Voided Midstream Performed By: #### U HCG, ADDONUAPLUS #### [facility] [address] [place] [address] RBC,Urine 3-4 Normal 0-4 [facility] Comment on above: Order Comment: Name Collection Type:: Clean-Voided Midstream Performed By: #### U HCG, ADDONUAPLUS #### [facility] [address] [place] [address] Specificy [place],Urine 1.030 Normal 1.001-1.030 [facility] Comment on above: Order Comment: Name Collection Type:: Clean-Voided Midstream Performed By: #### U HCG, ADDONUAPLUS #### [address] Squamous Epithelial Cell,Urine 3-4 High 0-2 [facility] Comment on above: Order Comment: Name Collection Type:: Clean-Voided Midstream Performed By: #### U HCG, ADDONUAPLUS #### [address] Urobilinogen,Urine Normal Normal Normal [facility] Comment on above: Order Comment: Name Collection Type:: Clean-Voided Midstream Performed By: #### U HCG, ADDONUAPLUS #### [address] WBC,Urine 1-2 Normal 0-4 [facility] Comment on above: Order Comment: Name Collection Type:: Clean-Voided Midstream Performed By: #### U HCG, ADDONUAPLUS #### [address] HCG,Quantitativeon 4 HCG,Quantitative 8687.00 m[iU]/mL Normal [facility] Comment on above: Result Comment: Appr oximate Approximate hCG Gestational Age Range (mIU/ml) (weeks) 0.2-1 5-50 1-2 50-500 2-3 100-5,000 3-4 500-10,000 4-5 1,000-50,000 5-6 10,000-100,000 6-8 15,000-200,000 8-12 10,000-100,000 PERFORMED BY: [place] [address] PATHOLOGIST PHOTOENGRAVING HELPER AMISHA OWEN M.D. Performed By: #### C MP, HCGQNT, CBC #### [facility] [address] [place], [place] [id number] [place] HCG,Urineon 10-01-2023 Beta HCG ( test) Ql (U) Positive High [facility] Comment on above: Order Comment: Name Collection Type:: Clean-Voided Midstream Result Comment: PERF ORMED BY: [place] [address] PATHOLOGIST PHOTOENGRAVING HELPER AMISHA OWEN M.D. Performed By: #### U HCG, ADDONUAPLUS #### [facility] [address] [place] [address] Potassium [Moles/volume] in Serum or PlasmaOrdered By: Charly Matute on 10-01-2023 Potassium [Moles/Vol] 3.8 mmol/L 3.5-5.1 [facility] Redraw Potassiumon Potassium [Moles/Vol] 3.8 mmol/L Normal 3.5-5.1 [facility] Comment on above: Result Comment: PERF ORMED BY: [place] [address] PATHOLOGIST PHOTOENGRAVING HELPER AMISHA OWEN M.D. Performed By: #### R OSMANY Barr #### [place] [id number] [place] Rhogam Workupon 10-01-2023 Rhogam Candidate Not a Candidate Normal [facility] Comment on above: Result Comment: PERF ORMED BY: [place] [address] PATHOLOGIST PHOTOENGRAVING HELPER AMISHA OWEN M.D. ABO and Rh group Nom (Bld) Blood group O Rh(D) positive Normal [facility] US OB transvaginalon 024 US OB transvaginal [facility] [address] [address] Ultrasound Report Signed Patient: Tin Arizmendi MR#: [id number] : 1985 Acct:[id number] Age/Sex: 37 / F ADM Date: 09/30/23 Loc: ER Room: Type: [facility] ER Attending Dr: Ordering Provider: Charly Matute DO Date of Service: 09/30/23 US/US OB <= 14 weeks fetus: Abdominal Pain ([id number]) US/US OB transvaginal: . Copies to: Charly Matute DO CLINICAL DATA: patient with right flank pain and spotting. FIRST TRIMESTER OB ULTRASOUND (transabdominal and transvaginal) COMPARISON: None Real-time ultrasound evaluation pelvis was performed utilizing both a transabdominal and transvaginal approach. TRANSABDOMINAL: The urinary bladder is not fully distended. Estimated uterine size is approximately 9.4 x 3.2 x 5.7 cm. No focal myometrial abnormalities are noted. There is a tiny suspected gestational sac within the uterus. Both ovaries are seen. The right ovary contains a small cystic structure. TRANSVAGINAL: Transvaginal scans were performed to better evaluate the uterus and adnexa. By this approach, there are nabothian cysts. The uterus is not well seen. There is a suspected gestational sac with possible pole. Based on the measured crown-rump length of 2.2 mm, this would correlate with an ultrasound age of 5 weeks 6 days. No heart rate was documented. The ovaries are again seen. The right measures 5.1 x 3.9 x 4.6 cm. There are follicles as well as a dominant cyst measuring 3.8 cm in size. The left ovary measures 4.7 x 2.7 x 3.3 cm. There is a heterogeneous hypoechoic area measuring 2.8 x 2.6 x 2.0 cm. This might be a corpus luteum. There is a trace amount of dependent free pelvic fluid. US/US OB <= 14 weeks fetus IMPRESSION: SLIGHTLY LIMITED STUDY WITH POSSIBLE EARLY INTRAUTERINE AT 5 WEEKS 6 DAYS. FOLLOW-UP SERIAL BETA-HCG AND REPEAT ULTRASOUND ARE SUGGESTED. RIGHT OVARIAN CYST AND SUSPECTED LEFT CORPUS LUTEUM. Impression dictated by: Nilton Gorman M.D.10/01/2023 8:06 AM Dictation Location: [place] [address] Tech: Arabella Garcia Transcribed By: ALLYSSA 10/01/23 0806 Dictated By: Nilton Gorman MD 10/01/23 0759 Signed By: 10/01/23 0806 Normal [facility] US renal BIon 10-01-2023 US renal BI [facility] [place] [address] Ultrasound Report Signed Patient: Tin Arizmendi MR#: [id number] : 1985 Acct:[id number] Age/Sex: 37 / F ADM Date: 09/30/23 Loc: ER Room: Type: [facility] ER Attending Dr: Ordering Provider: Charly Matute DO Date of Service: 09/30/23 US/US renal BI: pain, hx kidney stones Copies to: Charly Matute DO BILATERAL RENAL AND BLADDER ULTRASOUND CLINICAL HISTORY: Patient with right low back pain radiating to the lower abdomen. History of kidney stones. COMPARISON: None Estimation of renal size is approximately 12.0 cm on the right and 11.4 cm on the left. A potential stone is visualized at the lower pole of the right kidney. No hydronephrosis is seen. No renal mass lesions were imaged. There is no perinephric fluid. The urinary bladder is partially distended with a volume of 120 mL. No contour or intraluminal abnormalities are seen. The post void bladder residual is 41 mL US/US renal BI IMPRESSION: SUSPECTED RIGHT NEPHROLITHIASIS. NO OBSTRUCTIVE UROPATHY. Impression dictated by: Nilton Gorman M.D.10/01/2023 7:59 AM Dictation Location: [place] [address] Tech: Arabella Garcia Transcribed By: ALLYSSA 10/01/23 0759 Dictated By: Nilton Gorman MD 10/01/23 0757 Signed By: 10/01/23 0759 [facility] Alanine aminotransferase [En zymatic activity/volume] in Serum or PlasmaOrdered By: Fidelina Lyle on 09-30-2023 ALT [Catalytic activity/Vol] 16 U/L 7-52 [facility] Albumin [Mass/volume] in Ser um or Plasma by Bromocresol green (BCG) dye binding methoOrdered By: Fidelina Lyle on 09-30-2023 Albumin BCG dye [Mass/Vol] 4.1 g/dL 3.5-5.7 [facility] Alkaline phosphatase [Enzyma tic activity/volume] in Serum or PlasmaOrdered By: Fidelina Lyle on 09-30-2023 ALP [Catalytic activity/Vol] 54 U/L 34-104 [facility] Aspartate aminotransferase [ Enzymatic activity/volume] in Serum or PlasmaOrdered By: Fidelina Lyle on 09-30-2023 AST [Catalytic activity/Vol] 20 U/L 13-39 [facility] Automated epithelial cells c ount in urine sediment (number/area)Ordered By: Fidelina Lyle on 09-30-2023 Epithelial cells Auto (Urine sed) [#/Area] 3-4 [HPF] 0-2 [facility] Automated erythrocytes count in urine sediment (number/area)Ordered By: Fidelina Lyle on 09-30-2023 RBC Auto (Urine sed) [#/Area] 3-4 [HPF] 0-4 [facility] Automated leukocytes count i n urine sediment (number/area)Ordered By: Fidelina Lyle on 09-30-2023 WBC Auto (Urine sed) [#/Area] 1-2 [HPF] 0-4 [facility] Basophils Auto (Bld) [#/Vol] Ordered By: Fidelina Lyle on 09-30-2023 Basophils (Bld) [#/Vol] 0.2 10*3/uL 0.0-0.2 [facility] Basophils/100 WBC Auto (Bld) Ordered By: Fidelina Lyle on 09-30-2023 Basophils/100 WBC (Bld) 1.2 % . F [facility] Bilirubin Auto test strip Ql (U)Ordered By: Fidelina Lyle on 09-30-2023 Bilirubin Ql (U) Negative Negative [facility] Bilirubin.total [Mass/volume ] in Serum or PlasmaOrdered By: Fidelina Lyle on 09-30-2023 Bilirubin [Mass/Vol] 0.4 mg/dL 0.3-1.0 [facility] Calcium [Mass/volume] in Ser um or PlasmaOrdered By: Fidelina Lyle on 09-30-2023 Calcium [Mass/Vol] 9.2 mg/dL 8.6-10.3 [facility] Carbon dioxide, total [Moles /volume] in Serum or PlasmaOrdered By: Fidelina Lyle on 09-30-2023 CO2 [Moles/Vol] 22.5 mmol/L 21.0-31.0 [facility] Chloride [Moles/volume] in S bear or PlasmaOrdered By: Fidelina Lyle on 09-30-2023 Chloride [Moles/Vol] 104 mmol/L 98-107 [facility] Choriogonadotropin.beta subu nit [Units/volume] in Serum or PlasmaOrdered By: Fidelina Lyle on 09-30-2023 HCG.beta subunit Qn 8687.00 m[IU]/mL [facility] Comment on above: Approximate Approxim ate hCG Gestational Age Range (mIU/ml) (weeks)0.2-1 5-50 1-2 50-500 2-3 100-5,000 3-4 500-10,000 4-5 1,000-50,000 5-6 10,000-100,000 6-8 15,000-200,000 8-12 10,000-100,000 Creatinine [Mass/volume] in Serum or PlasmaOrdered By: Fidelina Lyle on 09-30-2023 Creatinine [Mass/Vol] 0.74 mg/dL 0.60-1.20 [facility] Eosinophils Auto (Bld) [#/Vo l]Ordered By: Fidelina Lyle on 09-30-2023 Eosinophils (Bld) [#/Vol] 0.3 10*3/uL 0.0-0.45 [facility] Eosinophils/100 WBC Auto (Bl d)Ordered By: Fidelina Lyle on 09-30-2023 Eosinophils/100 WBC (Bld) 2.0 % . [facility] Erythrocyte distribution wid th Auto (RBC) [Ratio]Ordered By: Fidelina Lyle on 09-30-2023 Erythrocyte distribution width (RBC) [Ratio] 14.3 % 11.9-15.3 [facility] Globulin Calc (S) [Mass/Vol] Ordered By: Fidelina Lyle on 09-30-2023 Globulin (S) [Mass/Vol] 3.2 g/dL [facility] Glucose [Mass/volume] in Ser um or PlasmaOrdered By: Fidelina Lyle on 09-30-2023 Glucose [Mass/Vol] 89 mg/dL 70-100 [facility] Comment on above: ADA recommended refe rence rangeRandom Glucose Reference Range is dependent on time and content of last meal. Glucose of more than 200 mg/dL in a nonstressed, ambulatory subject supports the diagnosis of Diabetes Mellitus. HCG ( test) IA.rapi d Ql (U)Ordered By: Fidelina Lyle on 09-30-2023 HCG ( test) Ql (U) Positive [facility] Hematocrit Auto (Bld) [Volum e fraction]Ordered By: Fidelina Lyle on 09-30-2023 Hematocrit (Bld) [Volume fraction] 41.0 % 34.0-46.4 [facility] Hemoglobin [Mass/volume] in BloodOrdered By: Fidelina Lyle on 09-30-2023 Hemoglobin (Bld) [Mass/Vol] 14.2 g/dL 11.8-15.4 [facility] Ketones Auto test strip (U) [Mass/Vol]Ordered By: Fidelina Lyle on 09-30-2023 Ketones (U) [Mass/Vol] Negative Negative Fi [facility] Leukocytes [#/volume] correc rufina for nucleated erythrocytes in Blood by Automated counOrdered By: Fidelina Lyle on 09-30-2023 WBC corrected for nucl RBC Auto (Bld) [#/Vol] 14.6 10*3/uL 3.8-11.6 [facility] Lymphocytes Auto (Bld) [#/Vo l]Ordered By: Fidelina Lyle on 09-30-2023 Lymphocytes (Bld) [#/Vol] 4.0 10*3/uL 1.00-4.8 [facility] Lymphocytes/100 WBC Auto (Bl d)Ordered By: Fidelina Lyle on 09-30-2023 Lymphocytes/100 WBC (Bld) 27.4 % . [facility] MCH Auto (RBC) [Entitic mass ]Ordered By: Fidelina Lyle on 09-30-2023 MCH (RBC) [Entitic mass] 31.0 pg 24.7-34.3 [facility] MCHC Auto (RBC) [Mass/Vol]Or dered By: Fidelina Lyle on 09-30-2023 MCHC (RBC) [Mass/Vol] 34.6 g/dL 32.0-35.0 [facility] MCV Auto (RBC) [Entitic vol] Ordered By: Fidelina Lyle on 09-30-2023 MCV (RBC) [Entitic vol] 89.8 fL 80-100 F [facility] Monocyte distribution width [Entitic volume] in Blood by AutomatedOrdered By: Fidelina Lyle on 09-30-2023 Monocyte distribution width Auto (Bld) [Entitic vol] 18.80 % 0.00-20.00 [facility] Monocytes Auto (Bld) [#/Vol] Ordered By: Fidelina Lyle on 09-30-2023 Monocytes (Bld) [#/Vol] 0.9 10*3/uL 0.0-0.8 [facility] Monocytes/100 WBC Auto (Bld) Ordered By: Fidelina Lyle on 09-30-2023 Monocytes/100 WBC (Bld) 6.3 % . F [facility] Neutrophils Auto (Bld) [#/Vo l]Ordered By: Fidelina Lyle on 09-30-2023 Neutrophils (Bld) [#/Vol] 9.2 10*3/uL 1.8-7.7 [facility] Neutrophils/100 WBC Auto (Bl d)Ordered By: Fidelina Lyle on 09-30-2023 Neutrophils/100 WBC (Bld) 63.1 % . [facility] No Panel InformationOrdered By: Fidelina Lyle on 09-30-2023 Estimated GFR (CKD-EPI) > 60.0 mL/Min [facility] Creatinine Clearance (Chem 130.63 [facility] Nucleated erythrocytes [Pres ence] in Blood by Automated countOrdered By: Fidelina Lyle on 09-30-2023 Nucleated RBC Auto Ql (Bld) 0.0 /100{WBC} 0-0.5 [facility] Platelet mean volume Auto (B ld) [Entitic vol]Ordered By: Fidelina Lyle on 09-30-2023 Platelet mean volume (Bld) [Entitic vol] 6.7 fL 6.3-10.7 [facility] Platelets Auto (Bld) [#/Vol] Ordered By: Fidelina Lyle on 09-30-2023 Platelets (Bld) [#/Vol] 360 10*3/uL 150-450 [facility] Protein Auto test strip (U) [Mass/Vol]Ordered By: Fidelina Lyle on 09-30-2023 Protein (U) [Mass/Vol] 100 mg/dL Negative [facility] Protein [Mass/volume] in Ser um or PlasmaOrdered By: Fidelina Lyle on 09-30-2023 Protein [Mass/Vol] 7.3 g/dL 6.4-8.9 [facility] RBC Auto (Bld) [#/Vol]Ordere d By: Fidelina Lyle on 09-30-2023 RBC (Bld) [#/Vol] 4.56 10*6/uL 3.60-5.00 [facility] Serum or plasma albumin/glob ulin mass ratioOrdered By: Fidelina Lyle on 09-30-2023 Albumin/Globulin [Mass ratio] 1.3 {ratio} [facility] Serum or plasma anion gap de terminationOrdered By: Fidelina Lyle on 09-30-2023 Anion gap [Moles/Vol] TNP [facility] Comment on above: Test not performed Sodium [Moles/volume] in Ser um or PlasmaOrdered By: Fidelina Lyle on 09-30-2023 Sodium [Moles/Vol] 136 mmol/L 136-145 [facility] Urea nitrogen [Mass/volume] in Serum or PlasmaOrdered By: Fidelina Lyle on 09-30-2023 Urea nitrogen [Mass/Vol] 10 mg/dL 7-25 [facility] Urine appearanceOrdered By: Fidelina Lyle on 09-30-2023 Appearance (U) Slightly cloudy Clear [facility] Urine bacteria detection by automated methodOrdered By: Fidelina Lyle on 09-30-2023 Bacteria Auto Ql (U) 2+ None Seen [facility] Urine colorOrdered By: Viji Lyle on 09-30-2023 Color (U) Yellow Yellow [facility] Urine glucose measurement by automated test strip (mass/volume)Ordered By: Fidelina Lyle on 09-30-2023 Glucose Auto test strip (U) [Mass/Vol] Normal mg/dL Normal [facility] Urine hemoglobin detection b y automated test stripOrdered By: Fidelina Lyle on 09-30-2023 Hemoglobin Auto test strip Ql (U) 2+ Negative [facility] Urine leukocyte esterase det ection by automated test stripOrdered By: Fidelina Lyle on 09-30-2023 Leukocyte esterase Auto test strip Ql (U) Negative Negative [facility] Urine nitrite detection by a utomated test stripOrdered By: Fidelina Lyle on 09-30-2023 Nitrite Auto test strip Ql (U) Negative Negative [facility] Urobilinogen Auto test strip (U) [Mass/Vol]Ordered By: Fidelina Lyle on 09-30-2023 Urobilinogen (U) [Mass/Vol] Normal mg/dL Normal [facility] WBC Auto (Bld) [#/Vol]Ordere d By: Fidelina Lyle on 09-30-2023 WBC (Bld) [#/Vol] 14.6 10*3/uL 3.8-11.6 [facility] pH Auto test strip (U)Ordere d By: Fidelina Lyle on 09-30-2023 pH (U) 1.030 [pH] 1.001-1.030 [facility] pH (U) 6.0 [pH] 5.0-9.0 [facility] WHIon 08-19-20 23 [facility] CNPNon 08-17-2023 CNPN Telephone (WHREBA) TIN ARIZMENDI ([id number]) 1985 F Date Time Provider Department 08/17/23 RADHA GILLIAM During your visit today, we recorded the following information about you: Juana Liu 08/17/2023 11:46 AM Signed Patient called stating she started her cycle yesterday so she is CD2 today. Wants to know when to schedule her baseline Mary Ann Kirkland RN 08/18/2023 11:37 AM Addendum Unable to reach patient by phone, left message to return my call. Need plan from [facility] and message sent to financial for SO with [facility]. Plan to bring patient in on Thursday Mary Ann Kirkalnd August 17, 2023 4:34 PM Unable to reach patient by phone, but patient is scheduled for tomorrow. Same plan per Dr. Menchaca. She will need follow up with [facility] if not after this attempt. Request to schedulers. MC sent to patient. Mary Ann Kirkland RN August 18, 2023 11:30 AM Allergies As of Date: 08/17/2023 Noted Allergy Reaction AMOXACILLIN (AMOXICILLIN) 03/09/2023 4 - Hives Comments: Skin test is negative. Challenge pending PENICILLINS 10/15/2020 4 - Hives Date Reviewed: 08/11/2023 Reviewed by: Otilia Camp MD - Fully Assessed Reason for Visit: Patient Update [1234] Primary Visit Diagnosis:Primary female infertility [N97.9] Order(s):ESTRADIOL-17 B BLD [SQE2] Order #: [id number] STANDING Prescriptions as of 08/18/2023 - dexAMETHasone (DECADRON) 0.5 mg tablet Take 1 tablet by mouth once daily. - Follitropin Beta (FOLLISTIM AQ) 300 unit/0.36 mL Inject 75 Units subcutaneously once daily. - letrozole (FEMARA) 2.5 mg tablet Take 4 tablets by mouth once daily. On cycle days 3-7 - metFORMIN (GLUCOPHAGE) 850 mg tablet Take 1 tablet by mouth twice daily with meals. - spironolactone (ALDACTONE) 25 mg tablet Take 25 mg by mouth once daily. - medroxyPROGESTERone (PROVERA) 10 mg tablet Take 1 tablet by mouth once daily. - bupropion HCl (BUPROBAN ORAL) Take 150 mg by mouth once daily. Problem List As Of Date: 08/17/2023 (None) Encounter Status:Closed by LEONEL CABEZAS on 08/18/23 [facility] FOLLICULAR US WHIon 07-30-20 [facility] FOLLICULAR US WHIon 07-24-20 [facility] ESTRADIOL-17B BLDon 07-17-20 E2 [Mass/Vol] 41 pg/mL [facility] FOLLICULAR US WHIon 07-17-20 [facility] CNPNon 07-14-2023 CNPN Telephone (WHREBA) TIN ARIZMENDI ([id number]) 1985 F Date Time Provider Department 07/14/23 DMITRY MENCHACA [facility] During your visit today, we recorded the following information about you: Juana Liu 07/16/2023 10:42 AM Signed Patient called because she hasn't heard from anyone in regard to next steps. She is CD3 Martha Vilchis RN 07/16/2023 2:43 PM Signed Called pt at number listed. Pt states that she is cd 2 and would like to come in for SO #3. Pt prefers [place] but no appts so she will come to [facility] to baseline on 07/17. Medications ordered based off of her last cycle but note sent to Dr. Menchaca to confirm plan. Pt verbalized understanding Martha Vilchis RN July 16, 2023 2:43 PM Martha Vilchis RN 07/16/2023 2:44 PM Signed Addended by: MARTHA VILCHIS on: 07/16/2023 02:44 PM Modules accepted: Orders Leonel Cabezas APRN.INTERNATIONAL FLIGHT ATTENDANT 07/16/2023 2:52 PM Signed Addended by: LEONEL CABEZAS on: 07/16/2023 02:52 PM Modules accepted: Orders Leonel Cabezas APRN.INTERNATIONAL FLIGHT ATTENDANT 07/16/2023 3:11 PM Signed Addended by: LEONEL CABEZAS on: 07/16/2023 03:11 PM Modules accepted: Orders Allergies As of Date: 07/14/2023 Noted Allergy Reaction AMOXACILLIN (AMOXICILLIN) 03/09/2023 4 - Hives PENICILLINS 10/15/2020 4 - Hives Date Reviewed: 06/26/2023 Reviewed by: Nilton Zhang, LAUREN - Fully Assessed Reason for Visit: Patient Update [1234] Cmt: Patient started spotting today. Wants to schedule ultrasound and order meds. 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 On cycle days 3-7Disp: 20 tabletRfl: 3 Prescriptions as of 07/16/2023 - dexAMETHasone (DECADRON) 0.5 mg tablet Take 1 tablet by mouth once daily. - Follitropin Beta (FOLLISTIM AQ) 300 unit/0.36 mL Inject 75 Units subcutaneously once daily. - Choriogonadotropin Ila,HumRec (OVIDREL) 250 mcg/0.5 mL syrg Inject 250 mcg subcutaneously one time only for 1 dose. - letrozole (FEMARA) 2.5 mg tablet Take 4 tablets by mouth once daily. On cycle days 3-7 - metFORMIN (GLUCOPHAGE) 850 mg tablet Take 1 tablet by mouth twice daily with meals. - spironolactone (ALDACTONE) 25 mg tablet Take 25 mg by mouth once daily. - medroxyPROGESTERone (PROVERA) 10 mg tablet Take 1 tablet by mouth once daily. - bupropion HCl (BUPROBAN ORAL) Take 150 mg by mouth once daily. Problem List As Of Date: 07/14/2023 (None) Prescriptions ordered this encounter Disp Refills Start End DEXAMETHASONE 0.5 MG TABLET 30 t* 3 07/16/2023 Route: ORAL Sig: Take 1 tablet by mouth once daily. FOLLISTIM AQ 300 UNIT/0.36 ML SUBCUT* 2 Ea* 3 07/16/2023 Route: SUBCUTANEOUS Sig: Inject 75 Units subcutaneously once daily. OVIDREL 250 MCG/0.5 ML SUBCUTANEOUS * 0.5 * 3 07/16/2023 07/16/2023 Route: SUBCUTANEOUS Sig: Inject 250 mcg subcutaneously one time only for 1 dose. LETROZOLE 2.5 MG TABLET 20 t* 3 07/16/2023 Route: ORAL Sig: Take 4 tablets by mouth once daily. On cycle days 3-7 Medications Discontinued During This Encounter Prescriptions - dexAMETHasone (DECADRON) 0.5 mg tablet (Discontinued) Take 1 tablet by mouth once daily. - Choriogonadotropin Ila,HumRec (OVIDREL) 250 mcg/0.5 mL syrg (Discontinued) Inject 250 mcg subcutaneously one time only for 1 dose. Encounter Status:Closed by LILA HEART MA on 07/15/23 [facility] US WHIon 06-26-20 [facility] US WHIon 05-28-20 [facility] FOLLICULAR US WHIon 05-25-20 23 [facility] US WHIon 05-21-20 [facility] US WHIon 05-13-20 23 [facility] CNPNon 05-11-2023 CNPN Telephone (WHREBA) TIN ARIZMENDI ([id number]) 1985 F Date Time Provider Department 05/11/23 [facility] During your visit today, we recorded the following information about you: Juana Liu 05/11/2023 2:09 PM Signed Patient called stating she started her cycle today. Also needs a refill on a medication that she requested back on 04/23 Lila Heart Ma 05/12/2023 8:47 AM Signed Patient calling again for refill of Metformin she requested on 04-23 she is out of medication. Also on day 2 today. Please call today. Emelia Rust RN 05/12/2023 3:23 PM Signed Returned phone call. Patient states she needs metformin reordered, she also needs to schedule baseline. Metformin reordered per patient request. Baseline appointment scheduled for 05/13 at 0715 at [facility]. Emelia Rust RN Allergies As of Date: 05/11/2023 Noted Allergy Reaction AMOXACILLIN (AMOXICILLIN) 03/09/2023 4 - Hives PENICILLINS 10/15/2020 4 - Hives Date Reviewed: 03/09/2023 Reviewed by: Nely Cotton RN - Fully Assessed Reason for Visit: Patient Question [1477] Primary Visit Diagnosis:Encounter for fertility testing [Z31.41] Order(s):FOLLICULAR [facility] [[id number]] Order #: [id number]: 1 STANDING ESTRADIOL-17B BLD [SQE2] Order #: [id number] STANDING Prescriptions as of 05/12/2023 - metFORMIN (GLUCOPHAGE) 850 mg tablet Take 1 tablet by mouth twice daily with meals. - Follitropin Beta (FOLLISTIM AQ) 300 unit/0.36 mL Inject 50-75 Units subcutaneously once daily. - spironolactone (ALDACTONE) 25 mg tablet Take 25 mg by mouth once daily. - medroxyPROGESTERone (PROVERA) 10 mg tablet Take 1 tablet by mouth once daily. - Follitropin Beta (FOLLISTIM AQ) 300 unit/0.36 mL Inject 75 Units subcutaneously once daily. - clomiPHENe (SEROPHENE) 50 mg tablet Take 4 tablets. Start CYCLE DAY 3. End CYCLE DAY 7. - letrozole (FEMARA) 2.5 mg tablet Take 4 tablets by mouth once daily. On cycle days 3-7 - bupropion HCl (BUPROBAN ORAL) Take 150 mg by mouth once daily. - medroxyPROGESTERone (PROVERA, CYCRIN) 10 mg tablet Take 1 tablet by mouth once daily. - dexAMETHasone (DECADRON) 0.5 mg tablet Take 1 tablet by mouth once daily. Problem List As Of Date: 05/11/2023 (None) Encounter Status:Closed by LEONEL CABEZAS on 05/12/23 [facility] XR HYSTEROSALPINGOGRAMon [facility] CNPNon 02-23-2023 CNPN Telephone (WHREBA) TIN ARIZMENDI ([id number]) 1985 F Date Time Provider Department 02/23/23 [facility] During your visit today, we recorded the following information about you: Juana Liu 02/23/2023 2:[address] [facility] pharmacy in [facility] called in regard to clarification on a medication they received. Khurram Zendejas RN 02/23/2023 2:44 PM Signed Called the pharmacy and spoke with a pharmacist I advised clomid is correct dose Khurram Zendejas RN February 23, 2023 2:44 PM Allergies As of Date: 02/23/2023 Noted Allergy Reaction PENICILLINS 10/15/2020 4 - Hives Date Reviewed: 02/18/2023 Reviewed by: Hiral Bishop MA - Fully Assessed Reason for Visit: Medication Problem [65] Prescriptions as of 03/02/2023 - metFORMIN (GLUCOPHAGE) 850 mg tablet TAKE 1 TABLET BY MOUTH TWICE DAILY WITH MEALS - clomiPHENe (SEROPHENE) 50 mg tablet Take 4 tablets. Start CYCLE DAY 3. End CYCLE DAY 7. - medroxyPROGESTERone (PROVERA) 10 mg tablet Take 1 tablet by mouth once daily. - letrozole (FEMARA) 2.5 mg tablet Take 4 tablets by mouth once daily. On cycle days 3-7 - bupropion HCl (BUPROBAN ORAL) Take by mouth. - medroxyPROGESTERone (PROVERA, CYCRIN) 10 mg tablet Take 1 tablet by mouth once daily. - dexAMETHasone (DECADRON) 0.5 mg tablet Take 1 tablet by mouth once daily. Problem List As Of Date: 02/23/2023 (None) Encounter Status:Closed by JUANA LIU on 03/02/23 [facility] Jerrell 02-20-2023 CNPN Telephone (WHREBA) TIN ARIZMENDI ([id number]) 1985 F Date Time Provider Department 02/20/23 [facility] During your visit today, we recorded the following information about you: Juana Alexa 02/20/2023 10:44 AM Signed Patient called wanting to get the authorization process started for IVF. Jonelle Edi 02/20/2023 4:50 PM Signed IVF PACKAGE#1 NOT CLEARED PLAN HAS NO INFERTILITY BENEFIT CALLED PT [facility] ALSO SENT MYCHART MESSAGE AND ESTIMATE LETTER. THANK YOU Jonelle Edi 02/23/2023 9:40 AM Signed Pt is upset that communication with clinical staff is not good , she stated should not be this difficult. Confirm encounter message stated Patient called wanting to get the authorization process started for IVF Pt is actually requesting to get prescript for the FSH injection to the pharmacy so she can have them be sent to her home. If she needs Nurse teach virtual visit please confirm. If someone could please follow up with this patient. Thank you Jonelle Edi 02/23/2023 11:02 AM Signed Bart Mckay Thank you,will do. I will advise once payment is collected. Jonelle Edi 02/23/2023 11:09 AM Signed S/O CLEARED PER PATIENT PLAN COVERS HER US AND SHE IS DOING A TI NO IUI SCHEDULED AT THIS TIME PT IS CLEARED THANK YOU Allergies As of Date: 02/20/2023 Noted Allergy Reaction PENICILLINS 10/15/2020 4 - Hives Date Reviewed: 02/18/2023 Reviewed by: Hiral Bishop MA - Fully Assessed Reason for Visit: New IVF [Other] Prescriptions as of 03/02/2023 - metFORMIN (GLUCOPHAGE) 850 mg tablet TAKE 1 TABLET BY MOUTH TWICE DAILY WITH MEALS - clomiPHENe (SEROPHENE) 50 mg tablet Take 4 tablets. Start CYCLE DAY 3. End CYCLE DAY 7. - medroxyPROGESTERone (PROVERA) 10 mg tablet Take 1 tablet by mouth once daily. - letrozole (FEMARA) 2.5 mg tablet Take 4 tablets by mouth once daily. On cycle days 3-7 - bupropion HCl (BUPROBAN ORAL) Take by mouth. - medroxyPROGESTERone (PROVERA, CYCRIN) 10 mg tablet Take 1 tablet by mouth once daily. - dexAMETHasone (DECADRON) 0.5 mg tablet Take 1 tablet by mouth once daily. Problem List As Of Date: 02/20/2023 (None) Encounter Status:Closed by JUANA LIU on 03/02/23 [facility] CONSULT PROGon 02-18-2023 CONSULT PROG HNO ID: [id number] Author: Dmitry Menchaca MD Service: ? Author Type: Physician Type: Consult Progress Note Filed: 03/02/2023 6:05 AM Note Text: VIRTUAL VISIT PROGRESS NOTE This is a virtual visit using [employer] video visit. It required patient-provider interaction for the medical decision making as documented below. Date of Consult: 02/18/2023 Consultation Requested By: Self-referred Tin Arizmendi is a 37 year old female presenting with the following history: HISTORY OF PRESENT ILLNESS: Tin Arizmendi is a 37 year old female Menstrual cycle irregularity: Amenorrhea without OCP or Provera PMHx: Increased BMI. PCOS. Sleep apnea PSHx: Cholecystectomy. Renal stones Meds: MVI. Metformin 1,000 mg CD 3, Fasting hormone values: TT elevation HSG: Normal Pelvic US: PCOS appearing ovaries SA: Normal Desire for future fertility CC up to 150 mg X4: Thinks ovulated due to spontaneous menses and LH Discussed Metformin use Discussed CC OI not responding Disccused LET OI Started spotting last week Discussed inositol and cinnamon Discussed Metformin refill Discussed recently taking Provera due to spotting Discussed LET + DEX OI cycles Discussed LET 10 mg Discussed newly started Spironolactone Discussed frustration with lack of conception Discussed MET, LET, DEX OI cycles Discussed Follicular US monitoring monthly HSG: Normal 2 years ago Discussed BTB causes *Discussed frustration over lack of response to OI *Discussed LET + SO hybrid cycle OI *Discussed risk of multiple gestation and OHSS 35 year old male partner without proven fertility PMHx: Denies PSHx: Denies Meds: Denies SA: Normal Notes from previous encounter: 36 year old female Menstrual cycle irregularity: Amenorrhea without OCP or Provera PMHx: Increased BMI. PCOS. Sleep apnea PSHx: Cholecystectomy. Renal stones Meds: MVI. Metformin 1,000 mg CD 3, Fasting hormone values: TT elevation HSG: Normal Pelvic US: PCOS appearing ovaries SA: Normal Desire for future fertility CC up to 150 mg X4: Thinks ovulated due to spontaneous menses and LH Discussed Metformin use Discussed CC OI not responding Disccused LET OI Started spotting last week Discussed inositol and cinnamon *Discussed Metformin refill *Discussed recently taking Provera due to spotting *Discussed LET + DEX OI cycles *Discussed LET 10 mg *Discussed newly started Spironolactone 35 year old male partner without proven fertility PMHx: Denies PSHx: Denies Meds: Denies SA: Normal Notations from previous visit: 34 year old female Menstrual cycle irregularity: Amenorrhea without OCP or Provera PMHx: Increased BMI. PCOS. Sleep apnea PSHx: Cholecystectomy. Renal stones Meds: MVI. Metformin 1,000 mg CD 3, Fasting hormone values: TT elevation HSG: Normal Pelvic US: PCOS appearing ovaries SA: Normal Primary infertility Desire for future fertility CC up to 150 mg X4: Thinks ovulated due to spontaneous menses and LH *Discussed Metformin use *Discussed CC OI not responding *Disccused LET OI *Started spotting last week *Discussed inositol and cinnamon 35 year old male partner without proven fertility PMHx: Denies PSHx: Denies Meds: Denies SA: Normal Notations from previous visit: 34 year old female Menstrual cycle irregularity: Amenorrhea without OCP or Provera PMHx: Increased BMI. PCOS. Sleep apnea PSHx: Cholecystectomy. Renal stones Meds: MVI. Metformin 1,000 mg CD 3, Fasting hormone values: TT elevation HSG: Normal Pelvic US: PCOS appearing ovaries SA: Normal Primary infertility Desire for future fertility CC up to 150 mg X4: Thinks ovulated due to spontaneous menses and LH 35 year old male partner without proven fertility PMHx: Denies PSHx: Denies Meds: Denies SA: Normal Obstetric History T0 L0 SAB0 IAB0 Ectopic0 Multiple0 Live Births0 Fertility Evaluations and Treatments: Eval Checklist Results Date Comments HSG Normal Hysteroscopy Not done Laparoscopy Not done OPK (Ovulation Predictor Kit) Abnormal Ovarian [place] Normal Saline Ultrasound Not done Semen Analysis Normal Ultrasound Normal Other (See comments) Not done MENSTRUAL HISTORY: Menarche Age: 14 Length of Cycle: 35-40 Irregular Days: 7 Menstrual Flow: Light Menstrual Symptoms: Cramping,Bloating,Jana ast Tenderness,No symptoms Patient's last menstrual period was 11/30/2022 (approximate). PAST MEDICAL HISTORY Diagnosis Date Sleep apnea 2020 PAST SURGICAL HISTORY Procedure Laterality Date COLPOSCOPY NEPHROLITHOTOMY REMOVAL STAGE 1 2004 NEPHROLITHOTOMY REMOVAL STAGE 1 2013 REMOVAL GALLBLADDER 2017 FAMILY HISTORY Problem Relation Age of Onset Diabetes Mother other (pcos) Mother Diabetes Father Obstructive Sleep Apnea Maternal Grandfather Stroke Maternal Grandfather Ovarian cancer No Family History Cervical Cancer No Family History (more content not included)... Normal [facility] FOLLICULAR US Ion 12-20-19 23 [facility] FOLLICULAR US Ion 11-10-19 23 [facility] FOLLICULAR US Ion 11-07-19 23 [facility] ESTRADIOLon 09-17-2021 Estradiol 74.2 pg/mL Normal [facility] Comment on above: Result Comment: Adul t Female: Follicular phase 12.5 - 166.0 Ovulation phase 85.8 - 498.0 Luteal phase 43.8 - 211.0 Postmenopausal <6.0 - 54.7 1st trimester 215.0 - >4300.0 Yazmin ECLIA methodology Performed By: #### E LUIS ALBERTO #### [facility] [address] [place] [address] Dr. Rene Ferguson PROGESTERONEon 09-17-2021 Progesterone <0.1 Normal [facility] Comment on above: Result Comment: Foll icular phase 0.1 - 0.9 Luteal phase 1.8 - 23.9 Ovulation phase 0.1 - 12.0 First trimester 11.0 - 44.3 Second trimester 25.4 - 83.3 Third trimester 58.7 - 214.0 Postmenopausal 0.0 - 0.1 Performed By: #### P AELXANDROES #### [facility] [address] [place] [address] Dr. Rene Ferguson PREG QUANT HCGon 09-13-2021 HCG QUANT <1 Normal [facility] Comment on above: Performed By: #### P REGQNT #### [facility] [address] [place] [address] Dr. Rene Ferguson HCG RANGE SEE BELOW Normal [facility] Comment on above: Result Comment: 5-50 0-1 WEEK 40-300 1-2 WEEKS 100-1,000 2-3 WEEKS 500-6,000 3-4 WEEKS 5,000-200,000 1-2 MONTHS 10,000-100,000 2-3 MONTHS 3,000-50,000 2ND TRIMESTER 1,000-50,000 3RD TRIMESTER Performed By: #### P REGQNT #### [facility] [address] [place] [address] Dr. Rene Ferguson CBC AUTO DIFFon 03-23-2021 BASO # 0.1 103/ul Normal 0.0-0.1 [facility] Comment on above: Performed By: #### C BC #### [facility] [address] [place] [address] Marissa Nilton Basophils/100 WBC (Bld) 0.7 % Normal 0.2-2.0 [facility] Comment on above: Performed By: #### C BC #### [facility] [address] [place] [address] Marissa Nilton EO # 0.3 103/ul Normal 0.0-0.7 [facility] Comment on above: Performed By: #### C BC #### [facility] [address] [place] [address] Marissa Nilton Eosinophils/100 WBC (Bld) 3.1 % Normal 0.9-7.0 [facility] Comment on above: Performed By: #### C BC #### [facility] [address] [place] [address] Marissa Nilton Erythrocyte distribution width (RBC) [Ratio] 13.2 % Normal 11.0-15.0 [facility] Comment on above: Performed By: #### C BC #### [facility] [address] [place] [address] Marissa Toribio Hematocrit (Bld) [Volume fraction] 42.3 % Normal 36.0-48.0 [facility] Comment on above: Performed By: #### C BC #### [facility] [address] [place] [address] Marissa Toribio Hemoglobin (Bld) [Mass/Vol] 14.0 g/dL Normal 12.0-16.0 [facility] Comment on above: Performed By: #### C BC #### [facility] [address] [place] [address] Marissa Toribio IG # 0.06 10e3/ul Critically high 0.00-0.03 [facility] Comment on above: Performed By: #### C BC #### [facility] [address] [place] [address] Marissa Toribio IG % 0.6 % Critically high 0.0-0.5 [facility] Comment on above: Performed By: #### C BC #### [facility] [address] [place] [address] Marissa Toribio LYMPH # 3.1 103/ul Normal 1.2-3.8 [facility] Comment on above: Performed By: #### C BC #### [facility] [address] [place] [address] Marissa Toribio Lymphocytes/100 WBC (Bld) 30.5 % Normal 20.5-60.0 [facility] Comment on above: Performed By: #### C BC #### [facility] [address] [place] [address] Marissa Toribio MANUAL DIFF REQ NO Normal [facility] Comment on above: Performed By: #### C BC #### [facility] [address] [place] [address] Marissa Toribio MCH (RBC) [Entitic mass] 29.7 pg Normal 26.7-34.0 [facility] Comment on above: Performed By: #### C BC #### [facility] [address] [id number] Marissa Toribio MCHC (RBC) [Mass/Vol] 33.1 g/dL Normal 29.9-35.2 [facility] Comment on above: Performed By: #### C BC #### [facility] [address] [id number] Marissa Toribio MCV (RBC) [Entitic vol] 89.8 fL Normal 81.0-99.0 [facility] Comment on above: Performed By: #### C BC #### [facility] [address] [place], [place] [id number] Marissa Toribio MONO # 0.7 103/ul Normal 0.3-0.8 [facility] Comment on above: Performed By: #### C BC #### [facility] [address] [place] [address] Marissa Toribio Monocytes/100 WBC (Bld) 6.9 % Normal 1.7-12.0 [facility] Comment on above: Performed By: #### C BC #### [facility] [address] [place], [place] [id number] Marissa Toribio NEUT # 5.9 103/ul Normal 1.4-6.5 [facility] Comment on above: Performed By: #### C BC #### [facility] [address] [place], [place] [id number] Marissa Toribio Neutrophils/100 WBC (Bld) 58.2 % Normal 43.0-75.0 [facility] Comment on above: Performed By: #### C BC #### [facility] [address] [id number] Marissa Toribio Platelet mean volume (Bld) [Entitic vol] 8.6 fL Critically low 9.5-13.5 [facility] Comment on above: Performed By: #### C BC #### [facility] [address] [id number] Marissa Nilton PLT 243 103/ul Normal 150-450 [facility] Comment on above: Performed By: #### C BC #### [facility] [address] [place] [address] Marissa Toribio RBC 4.71 106/ul Normal 4.20-5.40 [facility] Comment on above: Performed By: #### C BC #### [facility] [address] [place] [address] Marissa Toribio WBC 10.2 103/ul Normal 4.0-11.0 [facility] Comment on above: Performed By: #### C BC #### [facility] [address] [place] [address] Marissa Toribio PROF 14(COMP METB)on 021 Albumin [Mass/Vol] 3.6 g/dL Normal 3.5-5.0 [facility] Comment on above: Performed By: #### P REGQNT #### [facility] [address] [place] [address] Dr. Rene Ferguson Albumin/Globulin [Mass ratio] 0.9 {ratio} Normal [facility] Comment on above: Performed By: #### P REGQNT #### [facility] [address] [place] [address] Dr. Rene Ferguson ALP [Catalytic activity/Vol] 77 U/L Normal 38-126 [facility] Comment on above: Performed By: #### P REGQNT #### [facility] [address] [place] [address] Dr. Rene Ferguson ALT [Catalytic activity/Vol] 50 U/L Normal 9-52 [facility] Comment on above: Performed By: #### P REGQNT #### [facility] [address] [place] [address] Dr. Rene Ferguson Anion gap [Moles/Vol] 13.0 mmol/L Normal [facility] Comment on above: Performed By: #### P REGQNT #### [facility] [address] [place] [address] Dr. Rene Ferguson AST [Catalytic activity/Vol] 48 U/L Critically high 14-36 [facility] Comment on above: Performed By: #### P REGQNT #### [facility] [address] [address] [address] Rene Ferguson Bilirubin [Mass/Vol] 0.4 mg/dL Normal 0.2-1.3 [facility] Comment on above: Performed By: #### P REGQNT #### [facility] [address] [address] [address] Rene Ferguson Calcium [Mass/Vol] 8.9 mg/dL Normal 8.4-10.2 [facility] Comment on above: Performed By: #### P REGQNT #### [facility] [address] [address] [address] Rene Ferguson Chloride [Moles/Vol] 104 mmol/L Normal 98-107 [facility] Comment on above: Performed By: #### P REGQNT #### [facility] [address] [place] [address] Dr. Rene Ferguson CO2 [Moles/Vol] 24.9 mmol/L Normal 22.0-30.0 [facility] Comment on above: Performed By: #### P REGQNT #### [facility] [address] [place] [address] Dr. Rene Ferguson Creatinine [Mass/Vol] 0.85 mg/dL Normal 0.52-1.04 [facility] Comment on above: Performed By: #### P REGQNT #### [facility] [address] [address] [address] Rene Ferguson EGFR-AF MOROCCAN >60 Normal >=60 [facility] Comment on above: Performed By: #### P REGQNT #### [facility] [address] [place] [address] Dr. Rene Ferguson EGFR-NON AF MOROCCAN >60 Normal >=60 [facility] Comment on above: Performed By: #### P REGQNT #### [facility] [address] [place] [address] Dr. Rene Ferguson Globulin (S) [Mass/Vol] 4.0 g/dL Normal [facility] Comment on above: Performed By: #### P REGQNT #### [facility] [address] [address] [address] Rene Ferguson Glucose [Mass/Vol] 100 mg/dL Normal 74-106 [facility] Comment on above: Performed By: #### P REGQNT #### [facility] [address] [place] [address] Dr. Rene Ferguson Potassium [Moles/Vol] 3.9 mmol/L Normal 3.4-5.0 [facility] Comment on above: Performed By: #### P REGQNT #### [facility] [address] [place] [address] Dr. Rene Ferguson Protein [Mass/Vol] 7.6 g/dL Normal 6.1-8.2 [facility] Comment on above: Performed By: #### P REGQNT #### [facility] [address] [place] [address] Dr. Rene Ferguson Sodium [Moles/Vol] 138 mmol/L Normal 137-145 [facility] Comment on above: Performed By: #### P REGQNT #### [facility] [address] [place] [address] Dr. Rene Ferguson Urea nitrogen [Mass/Vol] 10.0 mg/dL Normal 7.0-17.0 [facility] Comment on above: Performed By: #### P REGQNT #### [facility] [address] [place] [address] Dr. Rene Ferguson Urea nitrogen/Creatinine [Mass ratio] 11.8 mg/mg Normal [facility] Comment on above: Performed By: #### P REGQNT #### [facility] [address] [place] [address] ABD/PELVIS WO CONon 03-22 CT ABD/PELVIS WO CON EXAM: CT ABD/PELVIS WO CON Comparison: None available. CLINICAL INDICATION: Right flank pain, concern for kidney stone. TECHNIQUE: Axial images through the abdomen and pelvis were obtained without intravenous contrast. Coronal and sagittal reconstructions were obtained. Dose reduction techniques were achieved by using automated exposure control and/or adjustment of mA and/or kV according to patient size and/or use of iterative reconstruction technique. FINDINGS: Please note that evaluation of the viscera/vascular structures, and sensitivity for detection of focal lesions, is limited without intravenous contrast. LOWER CHEST: The visualized portions of the lung bases are clear. LIVER: Hepatic steatosis. GALLBLADDER: Status post prior cholecystectomy. BILE DUCTS: Unremarkable. PANCREAS: Unremarkable. SPLEEN: Unremarkable. ADRENALS: Unremarkable. KIDNEYS/URETERS: There are some surgical clips between the right liver and the right kidney. There is a 5 mm right distal ureteral stone just proximal to the right UVJ resulting in mild to moderate right hydroureteronephrosis . There appears to be a focus of scarring in the right lower pole kidney versus a small fat-containing lesion/AML on coronal image 57 and axial image 79. BLADDER: Bladder is decompressed and not well evaluated. No bladder stones. PELVIC STRUCTURES: Uterus is present. No adnexal masses or ovarian cysts are evident. No significant pelvic free fluid. GI TRACT: Evaluation of bowel limited by fecal contents and lack of distention. No evidence of bowel obstruction. Normal appendix. Fatty infiltration of the wall of the colon, may suggest sequela of chronic inflammation. VASCULAR STRUCTURES: Unremarkable. LYMPH NODES: No pathologic lymphadenopathy by CT size criteria. PERITONEUM: No free air. No abscess. SOFT TISSUES: Trace fat-containing umbilical hernia. OSSEOUS STRUCTURES: No acute osseous abnormality. No suspicious osseous lesions. IMPRESSION: 5 mm right distal ureteral stone just proximal to the right UVJ resulting in mild to moderate right hydroureteronephrosis . Normal appendix. There appears to be a focus of scarring in the right lower pole kidney versus a small fat-containing lesion/AML on coronal image 57 and axial image 79. Hepatic steatosis. Electronically authenticated by: SAMEER OCONNELL Date: 2021-03-22 21:45 Normal [facility] CULTURE URINEon 03-22-2021 CULTURE URINE Culture Observations : HEAVY GROWTH OF MIXED GENITAL MONIKA. NO POTENTIAL PATHOGENS SEEN. Normal [facility] Comment on above: Performed By: #### U RCX #### [facility] [address] [place] [id number] Marissa Toribio ASHLIE URINE PROFILEon 1 Bilirubin Ql (U) Negative Normal NEGATIVE [facility] Comment on above: Performed By: #### P REGQNT #### [facility] [address] [place], [place] [address] Dr. Rene Ferguson Clarity (U) SL CLOUDY Abnormal CLEAR [facility] Comment on above: Performed By: #### P REGQNT #### [facility] [address] [address] [address] Rene Ferguson Color (U) LT. YELLOW Normal YELLOW [facility] Comment on above: Performed By: #### P REGQNT #### [facility] [address] [address] [address] Rene WILLINGHAM A micrscopic examination will be performed if indicated. Normal [facility] Comment on above: Performed By: #### P REGQNT #### [facility] [address] [address] [address] Rene Ferguson Glucose Ql (U) Negative Normal NEGATIVE [facility] Comment on above: Performed By: #### P REGQNT #### [facility] [address] [place] [address] Dr. Rene Ferguson Hemoglobin Ql (U) LARGE Abnormal NEGATIVE [facility] Comment on above: Performed By: #### P REGQNT #### [facility] [address] [place] [address] Dr. Rene Ferguson Ketones Ql (U) TRACE Abnormal NEGATIVE [facility] Comment on above: Performed By: #### P REGQNT #### [facility] [address] [place] [address] Dr. Rene Ferguson LEUKOCYTES Negative Normal NEGATIVE [facility] Comment on above: Performed By: #### P REGQNT #### [facility] [address] [address] [address] Rene Ferguson Nitrite Ql (U) Negative Normal NEGATIVE [facility] Comment on above: Performed By: #### P REGQNT #### [facility] [address] [address] [address] Rene Ferguson pH (U) 6.0 [pH] Normal 5-9 [facility] Comment on above: Performed By: #### P REGQNT #### [facility] [address] [place] [address] Dr. Rene Ferguson Protein (U) [Mass/Vol] 100 mg/dL Abnormal NEGAT YARA/ TRACE [facility] Comment on above: Performed By: #### P REGQNT #### [facility] [address] [place] [address] Dr. Rene Ferguson SPEC GRAVITY >=1.030 Abnormal 1.005-<=1.025 [facility] Comment on above: Performed By: #### P REGQNT #### [facility] [address] [place] [address] Dr. Rene Ferguson UR MICRO IND INDICATED Normal [facility] Comment on above: Performed By: #### P REGQNT #### [facility] [address] [place] [address] Dr. Rene Ferguson Urobilinogen Qn (U) 0.2 {Inocencio'U}/dL Normal 0.2 - 1. 0 [facility] Comment on above: Performed By: #### P REGQNT #### [facility] [address] [place] [address] Dr. Rene Ferguson URon 03-22-2021 , QUAL Negative Normal NEGATIVE [facility] Comment on above: Performed By: #### P REGU #### [facility] [address] [place] [address] Marissa Nitlon URINE MICROSCOPIC ONLYon BACTERIA SMALL Abnormal NONE SEEN [facility] Comment on above: Performed By: #### P REGQNT #### [facility] [address] [place] [address] Dr. Rene Ferguson Bacteria identified Cx Nom (U) INDICATED Normal [facility] Comment on above: Performed By: #### P REGQNT #### [facility] [address] [place] [address] Dr. Rene Ferguson CA OX CRYSTALS FEW Normal [facility] Comment on above: Performed By: #### P REGQNT #### [facility] [address] [place] [address] Dr. Rnee Ferguson CAST NONE SEEN Normal NONE SEEN [facility] Comment on above: Performed By: #### P REGQNT #### [facility] [address] [place] [address] Dr. Rene Ferguson Crystals LM Nom (Urine sed) SEEN Abnormal NONE SEEN [facility] Comment on above: Performed By: #### P REGQNT #### [facility] [address] [place] [address] Dr. Rene Ferguson Epithelial cells LM Ql (Urine sed) MODERATE Abnormal NONE SEEN /RARE [facility] Comment on above: Performed By: #### P REGQNT #### [facility] [address] [address] [address] Rene Ferguson MUCOUS NONE SEEN Normal NONE SEEN [facility] Comment on above: Performed By: #### P REGQNT #### [facility] [address] [place] [address] Dr. Rene Ferguson RBC 20-50 Abnormal 0-2 [facility] Comment on above: Performed By: #### P REGQNT #### [facility] [address] [place] [address] Dr. Rene Ferguson WBC 5-10 Abnormal NONE SEEN [facility] Comment on above: Performed By: #### P REGQNT #### [facility] [address] [place] [address] Dr. Rene Ferguson PROGESTERONEon 03-08-2021 Progesterone <0.1 Normal [facility] Comment on above: Result Comment: Foll icular phase 0.1 - 0.9 Luteal phase 1.8 - 23.9 Ovulation phase 0.1 - 12.0 First trimester 11.0 - 44.3 Second trimester 25.4 - 83.3 Third trimester 58.7 - 214.0 Postmenopausal 0.0 - 0.1 Performed By: #### P ROGES #### [facility] [address] [place] [address] Marissa Toribio ESTRADIOLon 01-17-2021 Estradiol 50.1 pg/mL Normal [facility] Comment on above: Result Comment: Adul t Female: Follicular phase 12.5 - 166.0 Ovulation phase 85.8 - 498.0 Luteal phase 43.8 - 211.0 Postmenopausal <6.0 - 54.7 1st trimester 215.0 - >4300.0 Yazmin ECLIA methodology Performed By: #### E LUIS ALBERTO #### [facility] [address] [address] Marissa Toribio PROGESTERONEon 01-17-2021 Progesterone <0.1 Normal [facility] Comment on above: Result Comment: Foll icular phase 0.1 - 0.9 Luteal phase 1.8 - 23.9 Ovulation phase 0.1 - 12.0 First trimester 11.0 - 44.3 Second trimester 25.4 - 83.3 Third trimester 58.7 - 214.0 Postmenopausal 0.0 - 0.1 Performed By: #### P ALEXANDROES #### [facility] [address] [place] [address] Marissa Toribio PREG QUANT HCGon 01-15-2021 HCG QUANT 1 mIU/mL Normal [facility] Comment on above: Performed By: #### P REGQNT #### [facility] [address] [place] [address] Dr. Rene Ferguson HCG RANGE SEE BELOW Normal [facility] Comment on above: Result Comment: 5-50 0-1 WEEK 40-300 1-2 WEEKS 100-1,000 2-3 WEEKS 500-6,000 3-4 WEEKS 5,000-200,000 1-2 MONTHS 10,000-100,000 2-3 MONTHS 3,000-50,000 2ND TRIMESTER 1,000-50,000 3RD TRIMESTER Performed By: #### P REGQNT #### [facility] [address] [place] [address] Dr. Rene Ferguson Pap IG, rfx Aptima HPV, rfx 16/18,45on 10-10-2020 . . Normal [facility] Comment on above: Result Comment: Perf ormed at: WB Performed By: #### P APHR2A #### [facility] [address] [place] [address] Marissa Toribio DIAGNOSIS: Comment Normal [facility] Comment on above: Result Comment: NEGA TIVE FOR INTRAEPITHELIAL LESION OR MALIGNANCY. Performed at: WB Performed By: #### P APHR2A #### [facility] [address] [place] [address] Marissa Toribio HPV Aptima Positive Abnormal Negative [facility] Comment on above: Result Comment: This nucleic acid amplification test detects fourteen high-risk HPV types (16,18,31,33,35,39,45,51,52,56,58,59,66,68) without differentiation. Performed at: =G Performed By: #### P APHR2A #### [facility] [address] [address] Marissaestefani Toribio HPV Genotype 16 Negative Normal Negative [facility] Comment on above: Result Comment: Perf ormed at: =G Performed By: #### P APHR2A #### [facility] [address] [address] Marissa Nilton HPV Genotype 18,45 Positive Abnormal Negative [facility] Comment on above: Result Comment: Perf ormed at: =G Performed By: #### P APHR2A #### [facility] [address] [place] [address] Marissaestefani Manriquezen Methodology: Comment Normal [facility] Comment on above: Result Comment: This liquid based ThinPrep(R) pap test was screened with the use of an image guided system. Performed at: [facility] Performed By: #### P APHR2A #### [facility] [address] [address] Marissaestefani Toribio Note: Comment Normal [facility] Comment on above: Result Comment: The Pap smear is a screening test designed to aid in the detection of premalignant and malignant conditions of the uterine cervix. It is not a diagnostic procedure and should not be used as the sole means of detecting cervical cancer. Both false-positive and false-negative reports do occur. . Performed at: WB Performed By: #### P APHR2A #### [facility] [address] [address] Marissa Nilton Performed by: Comment Normal [facility] Comment on above: Result Comment: Miguelina Carroll, Medical Dosimetrist (ASCP) Performed at: [facility] Performed By: #### P APHR2A #### [facility] [address] [place] [address] Marissaestefani Toribio Specimen adequacy: Comment Normal [facility] Comment on above: Result Comment: Sati sfactory for evaluation. Endocervical and/or squamous metaplastic cells (endocervical component) are present. Performed at: [facility] Performed By: #### P APHR2A #### [facility] [address] [place] [place] [address] Marissa Toribio Karla Panel Information [facility] Vital Signs Date Time Vital Sign Value Performing Clinician Faci lity 11-25-2024 16:57-0400 Body height 162.56 cm [facility] 11-25-2024 16:57-0400 Body mass index (BMI) [Ratio] 44.6 kg/m2 [facility] 11-25-2024 16:57-0400 Body temperature 97.7 [degF] [facility] 11-25-2024 16:57-0400 Body weight 117.93 kg [facility] 11-25-2024 16:57-0400 Diastolic blood pressure 93 mm[Hg] [facility] 11-25-2024 16:57-0400 Heart rate 75 /min [facility] 11-25-2024 16:57-0400 Respiratory rate 18 /min [facility] 11-25-2024 16:57-0400 SaO2% (BldA) [Mass fraction] 94 % [facility] 11-25-2024 16:57-0400 Systolic blood pressure 152 mm[Hg] [facility] 11-22-2024 08:20-0400 Body height 162.6 cm Millie Ellis MD Work Phone: [facility] 11-22-2024 08:20-0400 Body mass index (BMI) [Ratio] 45.14 kg/m2 Millie Ellis MD Work Phone: [facility] 11-22-2024 08:20-0400 Body weight 119.3 kg Millie Ellis MD Work Phone: [facility] 11-08-2024 07:53-0500 Body mass index (BMI) [Ratio] 45.32 kg/m2 David Mckeon MD Work Phone: [facility] 11-08-2024 07:53-0500 Body weight 119.75 kg David Mckeon MD Work Phone: [facility] 11-08-2024 07:53-0500 Diastolic blood pressure 86 mm[Hg] David Mckeon MD Work Phone: [facility] 11-08-2024 07:53-0500 Heart rate 75 /min David Mckeon MD Work Phone: [facility] 11-08-2024 07:53-0500 Respiratory rate 18 /min David Mckeon MD Work Phone: [facility] 11-08-2024 07:53-0500 SaO2% (BldA) [Mass fraction] 95 % David Mckeon MD Work Phone: [facility] 11-08-2024 07:53-0500 Systolic blood pressure 142 mm[Hg] David Mckeon MD Work Phone: [facility] 10-07-2024 10:42-0500 Body height 162.6 cm David Mckeon MD Work Phone: [facility] 10-07-2024 10:42-0500 Body mass index (BMI) [Ratio] 45.06 kg/m2 David Mckeon MD Work Phone: [facility] 10-07-2024 10:42-0500 Body temperature 97.9 [degF] David Mckeon MD Work Phone: [facility] 10-07-2024 10:42-0500 Body weight 119.07 kg David Mckeon MD Work Phone: [facility] 10-07-2024 10:42-0500 Diastolic blood pressure 98 mm[Hg] David Mckeon MD Work Phone: [facility] 10-07-2024 10:42-0500 Heart rate 79 /min David Mckeon MD Work Phone: [facility] 10-07-2024 10:42-0500 Respiratory rate 20 /min David Mckeon MD Work Phone: [facility] 10-07-2024 10:42-0500 SaO2% (BldA) [Mass fraction] 97 % David Mckeon MD Work Phone: [facility] 10-07-2024 10:42-0500 Systolic blood pressure 156 mm[Hg] David Mckeon MD Work Phone: [facility] 07-06-2024 09:40-0400 Body height 162.6 cm David Mckeon MD Work Phone: [facility] 07-06-2024 09:40-0400 Body mass index (BMI) [Ratio] 44.46 kg/m2 David Mckeon MD Work Phone: [facility] 07-06-2024 09:40-0400 Body temperature 97.7 [degF] David Mckeon MD Work Phone: [facility] 07-06-2024 09:40-0400 Body weight 117.48 kg David Mckeon MD Work Phone: [facility] 07-06-2024 09:40-0400 Diastolic blood pressure 90 mm[Hg] David Mckeon MD Work Phone: [facility] 07-06-2024 09:40-0400 Heart rate 88 /min David Mckeon MD Work Phone: [facility] 07-06-2024 09:40-0400 Respiratory rate 16 /min David Mckeon MD Work Phone: [facility] 07-06-2024 09:40-0400 Systolic blood pressure 144 mm[Hg] David Mckeon MD Work Phone: [facility] 05-13-2024 12:16-0400 Diastolic blood pressure 72 mm[Hg] Michel Joseph MD Work Phone: [facility] 05-13-2024 12:16-0400 Heart rate 80 /min Michel Joseph MD Work Phone: [facility] 05-13-2024 12:16-0400 Respiratory rate 18 /min Michel Joseph MD Work Phone: [facility] 05-13-2024 12:16-0400 SaO2% (BldA) [Mass fraction] 93 % Michel Joseph MD Work Phone: [facility] 05-13-2024 12:16-0400 Systolic blood pressure 145 mm[Hg] Michel Joseph MD Work Phone: [facility] 05-13-2024 11:38-0400 Body height 162.6 cm Michel Joseph MD Work Phone: [facility] 05-13-2024 11:38-0400 Body mass index (BMI) [Ratio] 42.91 kg/m2 Michel Joseph MD Work Phone: [facility] 05-13-2024 11:38-0400 Body temperature 97.9 [degF] Michel Joseph MD Work Phone: [facility] 05-13-2024 11:38-0400 Body weight 113.4 kg Michel Joseph MD Work Phone: [facility] 04-29-2024 11:01-0400 Body height 162.6 cm Miguel Levy APRN.INTERNATIONAL FLIGHT ATTENDANT Work Phone: [facility] 04-29-2024 11:01-0400 Body mass index (BMI) [Ratio] 44.63 kg/m2 Miguel Levy APRN.INTERNATIONAL FLIGHT ATTENDANT Work Phone: [facility] 04-29-2024 11:01-0400 Body weight 117.94 kg Mgiuel Levy APRN.INTERNATIONAL FLIGHT ATTENDANT Work Phone: [facility] 04-29-2024 11:01-0400 Diastolic blood pressure 99 mm[Hg] Miguel Levy APRN.INTERNATIONAL FLIGHT ATTENDANT Work Phone: [facility] 04-29-2024 11:01-0400 Heart rate 64 /min Miguel Levy APRN.INTERNATIONAL FLIGHT ATTENDANT Work Phone: [facility] 04-29-2024 11:01-0400 Systolic blood pressure 144 mm[Hg] Miguel Nanda [place]OLDSTEIN.INTERNATIONAL FLIGHT ATTENDANT Work Phone: [facility] 03-08-2024 13:51-0400 Body height 162.6 cm Pepe Pope MD Work Phone: [facility] 03-08-2024 13:51-0400 Body mass index (BMI) [Ratio] 45.11 kg/m2 Pepe Pope MD Work Phone: [facility] 03-08-2024 13:51-0400 Body weight 119.2 kg Pepe Pope MD Work Phone: [facility] 03-08-2024 13:51-0400 Diastolic blood pressure 90 mm[Hg] Pepe Pope MD Work Phone: [facility] 03-08-2024 13:51-0400 Heart rate 63 /min Pepe Pope MD Work Phone: [facility] 03-08-2024 13:51-0400 Systolic blood pressure 157 mm[Hg] Pepe Pope MD Work Phone: [facility] 03-02-2024 10:01-0400 Body height 162.6 cm Vee Esquivel APRN-INTERNATIONAL FLIGHT ATTENDANT Work Phone: [facility] 03-02-2024 10:01-0400 Body mass index (BMI) [Ratio] 44.63 kg/m2 Veejose daniel Esquivel WATER SUPERVISOR-INTERNATIONAL FLIGHT ATTENDANT Work Phone: [facility] 03-02-2024 10:01-0400 Body weight 117.94 kg Veejose daniel Esquivel APRN-INTERNATIONAL FLIGHT ATTENDANT Work Phone: [facility] 03-02-2024 10:01-0400 Diastolic blood pressure 89 mm[Hg] Vee Esquivel WATER SUPERVISOR-INTERNATIONAL FLIGHT ATTENDANT Work Phone: [facility] 03-02-2024 10:01-0400 Heart rate 94 /min Vee Esquivel WATER SUPERVISOR-INTERNATIONAL FLIGHT ATTENDANT Work Phone: [facility] 03-02-2024 10:01-0400 SaO2% (BldA) [Mass fraction] 92 % Vee Esquivel WATER SUPERVISOR-INTERNATIONAL FLIGHT ATTENDANT Work Phone: [facility] 03-02-2024 10:01-0400 Systolic blood pressure 158 mm[Hg] Vee Esquivel WATER SUPERVISOR-INTERNATIONAL FLIGHT ATTENDANT Work Phone: [facility] 02-23-2024 15:24-0400 Body height 162.6 cm Michel Joseph MD Work Phone: [facility] 02-23-2024 15:24-0400 Body mass index (BMI) [Ratio] 44.77 kg/m2 Michel Joseph MD Work Phone: [facility] 02-23-2024 15:24-0400 Body weight 118.3 kg Michel Joseph MD Work Phone: [facility] 02-23-2024 15:24-0400 Diastolic blood pressure 82 mm[Hg] Michel Joseph MD Work Phone: [facility] 02-23-2024 15:24-0400 Systolic blood pressure 124 mm[Hg] Michel Joseph MD Work Phone: [facility] 01-21-2024 08:07-0400 Body height 162.6 cm Pepe Pope MD Work Phone: [facility] 01-21-2024 08:07-0400 Body mass index (BMI) [Ratio] 44.31 kg/m2 Pepe Pope MD Work Phone: [facility] 01-21-2024 08:07-0400 Body weight 117.1 kg Pepe Pope MD Work Phone: [facility] 01-21-2024 08:07-0400 Diastolic blood pressure 91 mm[Hg] Pepe Pope MD Work Phone: [facility] 01-21-2024 08:07-0400 Heart rate 66 /min Pepe Pope MD Work Phone: [facility] 01-21-2024 08:07-0400 Systolic blood pressure 138 mm[Hg] Pepe Pope MD Work Phone: [facility] 11-04-2023 08:27-0500 Body height 162.6 cm David Mckeon MD Work Phone: [facility] 11-04-2023 08:27-0500 Body mass index (BMI) [Ratio] 44.03 kg/m2 David Mckeon MD Work Phone: [facility] 11-04-2023 08:27-0500 Body temperature 96.6 [degF] David Mckeon MD Work Phone: [facility] 11-04-2023 08:27-0500 Body weight 116.35 kg David Mckeon MD Work Phone: [facility] 11-04-2023 08:27-0500 Diastolic blood pressure 82 mm[Hg] David Mckeon MD Work Phone: [facility] 11-04-2023 08:27-0500 Heart rate 76 /min David Mckeon MD Work Phone: [facility] 11-04-2023 08:27-0500 Respiratory rate 16 /min David Mckeon MD Work Phone: [facility] 11-04-2023 08:27-0500 Systolic blood pressure 136 mm[Hg] David Mckeon MD Work Phone: [facility] 09-30-2023 20:00-0500 Body height 162.56 cm MD David Mckeon Work Phone: [facility] 09-30-2023 20:00-0500 Body temperature 98.1 [degF] MD David Mckeon Work Phone: [facility] 09-30-2023 20:00-0500 Body weight 116.7 kg MD David Mckeon Work Phone: [facility] 09-30-2023 20:00-0500 Diastolic blood pressure 93 mm[Hg] MD David Mckeon Work Phone: [facility] 09-30-2023 20:00-0500 Heart rate 77 /min MD David Mckeon Work Phone: [facility] 09-30-2023 20:00-0500 Respiratory rate 16 /min MD David Mckeon Work Phone: [facility] 09-30-2023 20:00-0500 SaO2% (BldA) [Mass fraction] 99 % MD David Mckeon Work Phone: [facility] 09-30-2023 20:00-0500 Systolic blood pressure 158 mm[Hg] MD David Mckeon Work Phone: [facility] 08-11-2023 12:52-0500 Body height 162.6 cm Otilia Camp MD Work Phone: [facility] 08-11-2023 12:52-0500 Body weight 116.45 kg Otilia Camp MD Work Phone: [facility] 08-11-2023 12:52-0500 Diastolic blood pressure 92 mm[Hg] Otilia Camp MD Work Phone: [facility] 08-11-2023 12:52-0500 Heart rate 81 /min Otilia Camp MD Work Phone: [facility] 08-11-2023 12:52-0500 SaO2% (BldA) [Mass fraction] 98 % Otilia Camp MD Work Phone: [facility] 08-11-2023 12:52-0500 Systolic blood pressure 127 mm[Hg] Otilia Camp MD Work Phone: [facility] Encounters Encounter Date Encounter Type Care Provider Facility Start: 01-23-2025 End: 01-23-2025 Clinisync Result Encounter Leonel Sales CNM Work Phone: [facility] Unsolicited Start: 01-23-2025 End: 01-23-2025 Clinisync Result Encounter Leonel Lawrenceo CNM Work Phone: [facility] Unsolicited Start: 01-18-2025 End: 01-19-2025 ambulatory Kobi Weiner PA-C Work Phone: [facility] Comment on above: Following up Start: 01-18-2025 End: 01-19-2025 E-mail encounter from caregiver Kobi Weiner PA-C Work Phone: [facility] Start: 01-17-2025 End: 01-17-2025 Clinisync Result Encounter Leonel Segura Floro CNM Work Phone: [facility] Unsolicited Start: 01-17-2025 End: 01-17-2025 Clinisync Result Encounter Leonel L Floro CNM Work Phone: [facility] Unsolicited Start: 01-16-2025 End: 01-16-2025 Telephone encounter Leonel L Floro CNM Work Phone: [facility] Start: 01-10-2025 End: 01-10-2025 ambulatory LEONEL L FLORO Not Available Start: 01-10-2025 End: 01-10-2025 Bamboo flowsheet Leonel L Floro CNM Work Phone: [facility] Start: 01-10-2025 End: 01-10-2025 Bamboo flowsheet Leonel L Floro CNM Work Phone: [facility] Start: 01-09-2025 End: 01-09-2025 Nursing evaluation of patient and report [facility] Work Phone: [facility] Comment on above: Encounter for pregna ncy test, result positive (HCC) Start: 01-09-2025 End: 01-09-2025 ambulatory [facility] Facility:[facility] Start: 12-30-2024 End: 12-30-2024 Nursing evaluation of patient and report [facility] Work Phone: [facility] Comment on above: Encounter for pregna ncy test, result positive (HCC) Start: 12-30-2024 End: 12-30-2024 ambulatory KOBI WEINER Facility:[facility] Start: 12-16-2024 End: 12-16-2024 ambulatory Kobi Weiner PA-C Work Phone: [facility] Comment on above: Encounter for pregna ncy test, result positive (HCC) (Primary Dx) Start: 12-16-2024 End: 12-16-2024 Telemedicine consultation with patient Kobi Weiner PA-C Work Phone: [facility] Start: 12-15-2024 End: 12-16-2024 Follow-up encounter Kobi Weiner PA-C Work Phone: [facility] Start: 12-14-2024 End: 12-14-2024 ambulatory MICHEL JOSEPH Facility:[facility] Start: 12-12-2024 End: 12-12-2024 ambulatory KOBI WEINER Facility:[facility] Start: 12-09-2024 End: 12-12-2024 Telephone encounter Michel Joseph MD Work Phone: [facility] Comment on above: +hpt on darwin re labwork; Mary Ann / N[place] please call pt re +hpt +hpt lmp 11/11 did addison per ov cycle req labwork Start: 12-06-2024 End: 12-06-2024 Office outpatient visit 10 minutes Abida Duckworth WATER SUPERVISOR-INTERNATIONAL FLIGHT ATTENDANT Work Phone: [facility] Comment on above: Inclusion cyst (Prim fabiola Dx) Start: 12-06-2024 End: 12-06-2024 ambulatory ABIDA DUCKWORTH [facility] Start: 11-25-2024 End: 11-25-2024 ambulatory [facility] Work Phone: Start: 11-25-2024 End: 11-25-2024 Telephone encounter Self [facility] Comment on above: progesterone shots Start: 11-25-2024 End: 11-25-2024 Patient encounter procedure [facility] Work Phone: [facility] Comment on above: Infertility Start: 11-25-2024 End: 11-25-2024 ambulatory [facility] Facility:[facility] Start: 11-24-2024 End: 11-24-2024 Patient encounter procedure [facility] Work Phone: [facility] Comment on above: Infertility Start: 11-24-2024 End: 11-24-2024 ambulatory [facility] Facility:[facility] Start: 11-22-2024 End: 11-22-2024 ambulatory [facility] Start: 11-22-2024 End: 11-22-2024 Office outpatient new 30 minutes Millie Ellis MD Work Phone: [facility] Comment on above: Inclusion cyst (Prim fabiola Dx) Start: 11-22-2024 End: 11-22-2024 ambulatory [facility] Start: 11-21-2024 End: 11-21-2024 Patient encounter procedure [facility] Work Phone: [facility] Comment on above: Infertility Start: 11-21-2024 End: 11-21-2024 ambulatory [facility] Facility:[facility] Start: 11-14-2024 End: 11-15-2024 Telephone encounter Michel Joseph MD Work Phone: [facility] Comment on above: needs letrozole toda y Start: 11-14-2024 End: 11-14-2024 Patient encounter procedure [facility] Work Phone: [facility] Comment on above: Arrived Start: 11-14-2024 End: 11-14-2024 ambulatory RADHA ATTARAN Facility:[facility] Start: 11-11-2024 End: 11-14-2024 Telephone encounter Michel Joseph MD Work Phone: [facility] Comment on above: Appointment Start: 11-09-2024 End: 11-09-2024 Orders Only David Mckeon MD Work Phone: [facility] Start: 11-08-2024 End: 11-08-2024 Telephone encounter Miguel Levy APRN.INTERNATIONAL FLIGHT ATTENDANT Work Phone: [facility] Comment on above: Refill Request Start: 11-08-2024 End: 11-08-2024 Patient encounter status David Mckeon MD Work Phone: [facility] Start: 11-08-2024 End: 11-08-2024 Periodic preventive med est patient 18-39 yrs David Mckeon MD Work Phone: [facility] Comment on above: Routine general medi aliyah examination at a health care facility (Primary Dx); Inclusion cyst; PCOS (polycystic ovarian syndrome) Start: 11-08-2024 Encounter for genera l adult medical examination without abnormal findings DAVID MCKEON [facility] Start: 11-08-2024 End: 11-08-2024 Refill Miguel Levy APRN.INTERNATIONAL FLIGHT ATTENDANT Work Phone: [facility] Comment on above: Refill Request Start: 10-23-2024 End: 10-23-2024 Patient encounter procedure Us Tech 2 [facility] Work Phone: [facility] Start: 10-23-2024 End: 10-23-2024 ambulatory MIGUEL LEVY [facility] Start: 10-23-2024 End: 10-23-2024 Nursing evaluation of patient and report Nurse Louisa [facility] Work Phone: [facility] Comment on above: Female infertility Start: 10-21-2024 End: 10-21-2024 Patient encounter procedure Us Tech 1 [facility] Re[facility] Work Phone: [facility] Comment on above: Arrived Start: 10-21-2024 End: 10-21-2024 ambulatory RADHA GILLIAM Facility:[facility] Start: 10-19-2024 End: 10-19-2024 Patient encounter procedure Us Tech 1 [facility] Re[facility] Work Phone: [facility] Comment on above: Infertility Start: 10-19-2024 End: 10-19-2024 ambulatory MICHEL JOSEPH Facility:[facility] Start: 10-12-2024 End: 10-12-2024 Patient encounter procedure [facility] Work Phone: [facility] Comment on above: Arrived Start: 10-12-2024 End: 10-12-2024 ambulatory MICHEL JOSEPH Facility:[facility] Start: 10-10-2024 End: 10-10-2024 Telephone encounter Michel Joseph MD Work Phone: [facility] Comment on above: needs to schedule us for so cycle Start: 10-07-2024 End: 10-07-2024 ambulatory DAVID MCKEON [facility] Start: 10-07-2024 End: 10-07-2024 Office outpatient visit 15 minutes David Mckeon MD Work Phone: [facility] Comment on above: PCOS (polycystic ova uriel syndrome) (Primary Dx); Midline low back pain without sciatica, unspecified chronicity Start: 10-03-2024 End: 10-06-2024 Refill Michel Joseph MD Work Phone: [facility] Comment on above: Refill Request Start: 09-21-2024 End: 09-21-2024 ambulatory Michel Joseph MD Work Phone: [facility] Comment on above: Female infertility ( Primary Dx) Start: 09-21-2024 End: 09-21-2024 Telemedicine consultation with patient Michel Joseph MD Work Phone: [facility] Start: 09-20-2024 End: 09-20-2024 Patient encounter procedure [facility] Work Phone: [facility] Comment on above: Infertility Start: 09-20-2024 End: 09-20-2024 ambulatory MICHEL JOSEPH Facility:[facility] Start: 09-19-2024 End: 09-19-2024 Patient encounter procedure [facility] Work Phone: [facility] Comment on above: Infertility Start: 09-19-2024 End: 09-19-2024 [facility] Start: 09-15-2024 End: 09-15-2024 Patient encounter procedure Us Tech 1 [facility] Re[facility] Work Phone: [facility] Comment on above: Arrived Start: 09-15-2024 End: 09-15-2024 ambulatory [facility] Facility:[facility] Start: 09-12-2024 End: 09-12-2024 Patient encounter procedure Us Tech 1 [facility] Re[facility] Work Phone: [facility] Comment on above: Infertility Start: 09-12-2024 End: 09-12-2024 ambulatory MICHEL JOSEPH Facility:[facility] Start: 09-08-2024 End: 09-09-2024 Telephone encounter Michel Joseph MD Work Phone: [facility] Comment on above: Appointment; LMP / set up medicated cycle; Called back today is day 3/ set up super ov Start: 08-17-2024 End: 08-22-2024 Nursing evaluation of patient and report Radha Gilliam MD Work Phone: [facility] Comment on above: Female infertility Start: 08-17-2024 End: 08-17-2024 ambulatory [facility] Facility:[facility] Start: 08-15-2024 End: 08-15-2024 Nursing evaluation of patient and report Odalis Parikh MD Work Phone: [facility] Comment on above: Female infertility Start: 08-15-2024 End: 08-15-2024 ambulatory [facility] Facility:[facility] Start: 08-10-2024 End: 08-10-2024 Nursing evaluation of patient and report Nurse Louisa [facility] Comment on above: Female infertility Start: 08-10-2024 End: 08-10-2024 ambulatory [facility] Facility:[facility] Start: 08-08-2024 End: 08-09-2024 Telephone encounter Michel Joseph MD Work Phone: [facility] Comment on above: LMP 08/06/24/ set up baselines for super ov Start: 07-18-2024 End: 07-18-2024 Nursing evaluation of patient and report Odalis Parikh MD Work Phone: [facility] Comment on above: Female infertility Start: 07-18-2024 End: 07-18-2024 ambulatory [facility] Facility:[facility] Start: 07-14-2024 End: 07-14-2024 Nursing evaluation of patient and report Michel Joseph MD Work Phone: [facility] Comment on above: Female infertility Start: 07-14-2024 End: 07-14-2024 [facility] Facility:[facility] Start: 07-07-2024 End: 07-07-2024 Nursing evaluation of patient and report Radha Gilliam MD Work Phone: [facility] Comment on above: Female infertility Start: 07-07-2024 End: 07-07-2024 ambulatory [facility] Facility:[facility] Start: 07-06-2024 End: 07-06-2024 Office outpatient visit 15 minutes David Mckeon MD Work Phone: [facility] Comment on above: Other acute sinusiti s, recurrence not specified (Primary Dx) Start: 07-06-2024 End: 07-06-2024 ambulatory DAVDI MCKEON [facility] Start: 07-04-2024 End: 07-04-2024 Telephone encounter Michel Joseph MD Work Phone: [facility] Comment on above: Next Steps Start: 06-15-2024 End: 06-15-2024 Nursing evaluation of patient and report Radha Gilliam MD Work Phone: [facility] Comment on above: Primary female infer tility Start: 06-15-2024 End: 06-15-2024 [facility] Start: 06-13-2024 End: 06-13-2024 Nursing evaluation of patient and report Odalis Parikh MD Work Phone: [facility]roductive [facility] Infertility Comment on above: Primary female infer tility Start: 06-13-2024 End: 06-13-2024 ambulatory [facility] Facility:[facility] Start: 06-10-2024 End: 06-10-2024 ambulatory [facility] Facility:[facility] Start: 06-10-2024 End: 06-10-2024 Nursing evaluation of patient and report Tiffany Gonzalez MD Work Phone: Reproductive Endocrinology Infertility Comment on above: Primary female infer tility Start: 06-06-2024 End: 06-06-2024 Nursing evaluation of patient and report Odalis Parikh MD Work Phone: [facility]roductive End[facility]inology Infertility Comment on above: Primary female infer tility Start: 06-06-2024 End: 06-06-2024 ambulatory [facility] Facility:[facility] Start: 06-03-2024 End: 06-03-2024 Nursing evaluation of patient and report Michel Joseph MD Work Phone: Reproductive Endocrinology Infertility Comment on above: Primary female infer tility Start: 06-03-2024 End: 06-03-2024 ambulatory [facility] Facility:[facility] Start: 05-27-2024 End: 05-27-2024 Nursing evaluation of patient and report Tiffany Gonzalez MD Work Phone: Reproductive Endocrinology Infertility Comment on above: Female infertility Start: 05-27-2024 End: 05-27-2024 [facility] Start: 05-24-2024 End: 05-24-2024 ambulatory Michel Joseph MD Work Phone: Reproductive Endocrinology Infertility Start: 05-13-2024 End: 05-13-2024 ambulatory MICHEL JOSEPH Facility:[facility] Start: 05-13-2024 End: 05-13-2024 Patient encounter procedure Michel Joseph MD Work Phone: [facility] Comment on above: Pre-operative labora tory examination (Primary Dx); Endometrial polyp; Encounter for fertility testing Start: 05-13-2024 End: 05-13-2024 Patient encounter status Michel Joseph MD Work Phone: [facility] Start: 05-05-2024 End: 05-05-2024 Orders Only Michel Joseph MD Work Phone: Reproductive Endocrinology Infertility Comment on above: Encounter for fertil ity testing (Primary Dx) Start: 05-04-2024 End: 05-04-2024 Telephone encounter Michel Joseph MD Work Phone: Reproductive Endocrinology Infertility Comment on above: Patient Question Start: 05-03-2024 End: 05-04-2024 Telephone encounter Michel Joseph MD Work Phone: Reproductive Endocrinology Infertility Comment on above: Next Steps Start: 04-29-2024 End: 04-29-2024 Patient encounter procedure Miguel Levy APRN.INTERNATIONAL FLIGHT ATTENDANT Work Phone: Reproductive Endocrinology Infertility Comment on above: Pre-procedure lab ex am (Primary Dx); Fertility testing Start: 04-29-2024 End: 04-29-2024 Patient encounter status Miguel Levy APRN.INTERNATIONAL FLIGHT ATTENDANT Work Phone: [facility] Start: 04-29-2024 End: 04-29-2024 ambulatory MICHEL JOSEPH Facility:[facility] Start: 04-29-2024 Encounter for preprocedural laboratory examination MIGUEL LEVY [facility] Start: 04-15-2024 End: 04-15-2024 Nursing evaluation of patient and report Nurse Louisa [facility] Rej Reproductive Endocrinology Infertility Comment on above: Irregular menses (Pr imary Dx); Female infertility Start: 04-15-2024 End: 04-15-2024 ambulatory MIGUEL LEVY Facility:[facility] Start: 04-07-2024 ambulatory Michel briceño MD Work Phone: Reproductive Endocrinology Infertility Comment on above: Bloodwork Start: 04-07-2024 Telephone encounter Tiffany barroso MD Work Phone: Reproductive Endocrinology Infertility Comment on above: nilton knox has ques on getting her labs in [place] Start: 04-05-2024 ambulatory Nilton Zhang RN Reprod u[facility] Endocrinology Infertility Start: 04-05-2024 Patient encounter procedure Nilton Zhang RN [facility] Start: 04-04-2024 End: 04-04-2024 ambulatory MICHEL JOSEPH Facility:[facility] Start: 03-30-2024 Telephone encounter Michel hendricks MD Work Phone: Reproductive Endocrinology Infertility Comment on above: next steps , no cycl e yet Start: 03-22-2024 Telephone encounter Self [facility]inology Infertility Comment on above: Patient Question Start: 03-21-2024 ambulatory Michel briceño MD Work Phone: [facility]roductive [facility]ocrinology Infertility Comment on above: Saline Ultrasound Qu estion Start: 03-09-2024 Refill Michel briceño MD Work Phone: Reproductive Endocrinology Infertility Comment on above: lotus pt ret call s tates she didn't start her provera Start: 03-08-2024 End: 03-08-2024 ambulatory PEPE POPE Facility:[facility] Start: 03-08-2024 End: 03-08-2024 Patient encounter procedure Pepe Pope MD Work Phone: OB/Gynecology Comment on above: Cervical high risk H PV (human papillomavirus) test positive (Primary Dx) Start: 03-07-2024 Telephone encounter Michel hendricks MD Work Phone: Reproductive Endocrinology Infertility Comment on above: discuss her cycle ; lmp Thursday cycle for 1 day Start: 03-02-2024 End: 03-02-2024 Office outpatient visit 25 minutes Vee Esquivel WATER SUPERVISOR-INTERNATIONAL FLIGHT ATTENDANT Work Phone: [facility] Comment on above: NIKO (obstructive sle ep apnea) (Primary Dx); CPAP use counseling; Obesity, Class III, BMI 40-49.9 (morbid obesity) (CMS-HCC); Noncompliance with CPAP treatment Start: 03-02-2024 End: 03-02-2024 [facility] VEE ESQUIVEL [facility] Start: 02-23-2024 End: 02-23-2024 ambulatory MICHEL JOSEPH Facility:[facility] Start: 02-23-2024 End: 02-23-2024 Patient encounter procedure Michel Joseph MD Work Phone: Reproductive Endocrinology Infertility Comment on above: Androgen excess (Krystal khurram Dx); Fertility testing Start: 02-12-2024 Telephone encounter Pepe Pope MD Work Phone: OB/Gynecology Comment on above: Colposcopy Start: 02-05-2024 End: 02-05-2024 ambulatory Michel Joseph MD Work Phone: Reproductive Endocrinology Infertility Comment on above: question Start: 02-05-2024 E-mail encounter fro m caregiver Michel Joseph MD Work Phone: [facility]ductive [facility]ocrinology Infertility Start: 02-05-2024 Telephone encounter Michel hendricks MD Work Phone: Reproductive Endocrinology Infertility Comment on above: Period due this week // never had a full flow; Patient Update Start: 02-01-2024 Telephone encounter Michel hendricks MD Work Phone: Reproductive Endocrinology Infertility Comment on above: unsure about cycle/i t is odd Start: 01-21-2024 End: 01-21-2024 ambulatory PEPE POPE Facility:[facility] Start: 01-21-2024 End: 01-21-2024 Patient encounter procedure Pepe Pope MD Work Phone: OB/Gynecology Comment on above: Encounter for Papani colaou smear for cervical cancer screening (Primary Dx); Encounter for gynecological examination (general) (routine) without abnormal findings; Exposure to sexually transmitted disease (STD); Class 3 severe obesity due to excess calories with serious comorbidity and body mass index (BMI) of 40.0 to 44.9 in adult (HCC); PCOS (polycystic ovarian syndrome) Start: 01-21-2024 End: 01-21-2024 Patient encounter status Pepe Pope MD Work Phone: [facility] Work Phone: Start: 01-11-2024 End: 01-11-2024 Nursing evaluation of patient and report Nurse Louisa [facility] Re[facility] Reproductive Endocrinology Infertility Comment on above: Female infertility Start: 01-08-2024 Telephone encounter Radha kyle MD Work Phone: Reproductive Endocrinology Infertility Comment on above: Financial Clearance (Please verify if patient is cleared for upcoming cycle. ) Start: 01-08-2024 End: 01-08-2024 Nursing evaluation of patient and report Nurse Louisa [facility] Re[facility] Reproductive Endocrinology Infertility Comment on above: Female infertility Start: 01-01-2024 Telephone encounter Nena hobbs MD Work Phone: Reproductive Endocrinology Infertility Start: 01-01-2024 End: 01-01-2024 Nursing evaluation of patient and report Michel Joseph MD Work Phone: Reproductive Endocrinology Infertility Comment on above: Female infertility Start: 12-29-2023 E-mail encounter paz carranza caregiver [facility] Start: 12-29-2023 Follow-up encounter [facility] Provider Rep roductive Endocrinology Infertility Comment on above: Follow up Start: 12-26-2023 End: 12-26-2023 Telephone encounter Vee Esquivel WATER SUPERVISOR-INTERNATIONAL FLIGHT ATTENDANT Work Phone: [facility] Start: 12-25-2023 Telephone encounter Dmitry Menchaca MD Work Phone: Reproductive Endocrinology Infertility Comment on above: Patient Question; ki ra pt ret call pls leave message on he my chart Start: 12-23-2023 End: 12-23-2023 Telephone encounter Vee Esquivel WATER SUPERVISOR-INTERNATIONAL FLIGHT ATTENDANT Work Phone: [facility] Start: 12-02-2023 End: 12-02-2023 ambulatory DMITRY MENCHACA Facility[facility] Start: 11-20-2023 End: 11-20-2023 Patient encounter procedure David Mckeon MD Work Phone: [facility] Comment on above: PCOS (polycystic ova uriel syndrome) (Primary Dx); Hypertriglyceridemia Start: 11-13-2023 End: 11-13-2023 ambulatory KOBI WEINER Facility:[facility] Start: 11-13-2023 End: 11-13-2023 ambulatory Kobi Weiner PA-C Work Phone: Reproductive Endocrinology Infertility Comment on above: Post-operative state (Primary Dx) Start: 11-13-2023 End: 11-13-2023 Telemedicine consultation with patient Kobi Weiner ZOIE Work Phone: [facility] Start: 11-06-2023 Get Medical Advice Dmitry Menchaca MD Work Phone: Reproductive Endocrinology Infertility Comment on above: HCG order Start: 11-04-2023 End: 11-04-2023 Patient encounter status [facility] Work Phone: Start: 11-04-2023 End: 11-04-2023 Periodic preventive med est patient 18-39 yrs David Mckeon MD Work Phone: [facility] Comment on above: Routine general medi aliyah examination at a health care facility (Primary Dx) Start: 10-30-2023 Preprocedural examination done Dmitry Menchaca MD Work Phone: [facility] Work Phone: Start: 10-30-2023 End: 10-30-2023 ambulatory DMITRY MENCHACA Facility:[facility] Start: 10-29-2023 Telephone encounter Dmitry Menchaca MD Work Phone: [facility] Start: 10-26-2023 Orders Only Dmitry Menchaca MD Work Phone: Reproductive Endocrinology Infertility Comment on above: Missed (Krystal khurram Dx) Start: 10-23-2023 Telephone encounter Dmitry Menchaca MD Work Phone: Obstetrics/Gynecology Comment on above: Environmental Health And Safety Manager - O ther (Pt loss ) Start: 10-23-2023 End: 10-23-2023 Patient encounter procedure Whi Tech 2 Lidar [address] Work Phone: Maternal Medicine Comment on above: Non-viable (Primary Dx) Start: 10-22-2023 Transcribe Orders Lidar Technician Trans cribe Provider Maternal Medicine Comment on above: Encounter to aguilar mhoan viability of , fetus 1 of multiple gestation (Primary Dx) Start: 10-16-2023 End: 10-16-2023 flow sheet [facility] Nurse [facility] Comment on above: GA: [id number] Start: 09-30-2023 End: 10-01-2023 Emergency department patient visit David Mckeon Facility:[facility] Start: 09-30-2023 End: 10-01-2023 Emergency department patient visit MD David Mckeon Work Phone: [facility]-Emergency Room Work Phone: Start: 09-18-2023 End: 09-18-2023 ambulatory KOBI WEINER Facility:[facility] Start: 09-15-2023 Telephone encounter Eugenia Mchugh MA [facility] Start: 08-25-2023 End: 08-25-2023 Nursing evaluation of patient and report Zhen Sears MD Work Phone: Reproductive Endocrinology Infertility Comment on above: Female infertility Start: 08-19-2023 End: 08-19-2023 Nursing evaluation of patient and report Radha Gilliam MD Work Phone: Reproductive Endocrinology Infertility Comment on above: Female infertility Start: 08-18-2023 Orders Only Leonel barr APRN.INTERNATIONAL FLIGHT ATTENDANT Work Phone: Reproductive Endocrinology Infertility Comment on above: Female infertility ( Primary Dx) Start: 08-17-2023 Telephone encounter Radha kyle MD Work Phone: Reproductive Endocrinology Infertility Comment on above: Patient Update Start: 08-11-2023 End: 08-11-2023 Patient encounter procedure Otilia Camp MD Work Phone: Allergy Comment on above: Allergy to drug (Krystal khurram Dx); Dry nares; Seasonal allergic rhinitis due to pollen Start: 07-30-2023 ambulatory Usha Khan MD Work Phone: Reproductive Endocrinology Infertility Comment on above: Allergy Testing Start: 07-30-2023 E-mail encounter paz m caregiver Usha Julio MD Work Phone: [facility] [employer] Start: 07-30-2023 End: 07-30-2023 Nursing evaluation of patient and report Dmitry Menchaca MD Work Phone: Reproductive Endocrinology Infertility Comment on above: Primary female infer tility Start: 07-24-2023 End: 07-24-2023 Nursing evaluation of patient and report Radha Gilliam MD Work Phone: Reproductive Endocrinology Infertility Comment on above: Primary female infer tility Start: 07-17-2023 End: 07-17-2023 ambulatory Radha Gilliam MD Work Phone: Reproductive Endocrinology Infertility Comment on above: Infertility Start: 07-17-2023 End: 07-17-2023 Patient encounter procedure Radha Gilliam MD Work Phone: [facility] [employer] Start: 07-14-2023 Refill Miguel del cid APRN.CNP Work Phone: Reproductive Endocrinology Infertility Comment on above: Refill Request Start: 06-26-2023 End: 06-26-2023 Nursing evaluation of patient and report Odalis Parikh MD Work Phone: Reproductive Endocrinology Infertility Comment on above: Primary female infer tility Start: 05-28-2023 End: 05-28-2023 Nursing evaluation of patient and report Dmitry Menchaca MD Work Phone: Reproductive Endocrinology Infertility Comment on above: Infertility, female (Primary Dx); Encounter for fertility testing Start: 05-26-2023 Telephone encounter Dmitry Menchaca MD Work Phone: [facility] Comment on above: Medication Problem Start: 05-25-2023 Telephone encounter Dmitry Menchaca MD Work Phone: [facility] Comment on above: Patient Update Start: 05-25-2023 End: 05-25-2023 ambulatory Odalis Parikh MD Work Phone: Reproductive Endocrinology Infertility Start: 05-25-2023 End: 05-25-2023 Patient encounter procedure Odalis Parikh MD Work Phone: [facility] Start: 05-21-2023 Telephone encounter Dmitry Menchaca MD Work Phone: Reproductive Endocrinology Infertility Comment on above: Returning Patient's Call Start: 05-21-2023 End: 05-21-2023 Nursing evaluation of patient and report Dmitry Menchaca MD Work Phone: Reproductive Endocrinology Infertility Comment on above: Infertility, female (Primary Dx); Encounter for fertility testing Start: 05-13-2023 ambulatory Dmitry Menchaca MD Work Phone: Reproductive Endocrinology Infertility Comment on above: FSH Start: 05-13-2023 End: 05-13-2023 Nursing evaluation of patient and report Radha Gilliam MD Work Phone: Reproductive Endocrinology Infertility Comment on above: Female infertility ( Primary Dx); Encounter for fertility testing Start: 05-12-2023 Telephone encounter Dmitry Menchaca MD Work Phone: Reproductive Endocrinology Infertility Comment on above: cd2 , refill prescri ption Start: 05-11-2023 Telephone encounter Dmitry Menchaca MD Work Phone: Reproductive Endocrinology Infertility Comment on above: Patient Question Start: 04-21-2023 ambulatory Dmitry Menchaca MD Work Phone: Reproductive Endocrinology Infertility Start: 04-03-2023 End: 04-03-2023 Nursing evaluation of patient and report Nurse Mitchell [facility] Be Work Phone: Reproductive Endocrinology Infertility Comment on above: Negative t est (Primary Dx) Start: 04-03-2023 End: 04-03-2023 Subsequent hospital visit by physician [employer] [facility] [place] Comment on above: Encounter for fertil ity testing [Z31.41] Start: 03-09-2023 End: 03-09-2023 Immunity to rubella by positive serology Nurse Louisa [facility] Beac Work Phone: Reproductive Endocrinology Infertility Start: 03-09-2023 End: 03-09-2023 Immunity to varicella by positive serology Nurse Mitchell [facility] Be[facility] Work Phone: Reproductive Endocrinology Infertility Start: 03-09-2023 End: 03-09-2023 Nursing evaluation of patient and report Nurse Louisa [facility] Ernestine Work Phone: Reproductive Endocrinology Infertility Comment on above: Encounter for fertil ity testing (Primary Dx); Immunity to varicella determined by serologic test; Immunity to rubella determined by serologic test Start: 03-05-2023 ambulatory Dmitry Menchaca MD Work Phone: [facility] Start: 03-05-2023 Patient encounter procedure Dmitry Menchaca MD Work Phone: Reproductive Endocrinology Infertility Comment on above: Nurse appointment Start: 02-23-2023 Telephone encounter Dmitry Menchaca MD Work Phone: Reproductive Endocrinology Infertility Comment on above: Patient Question Medication Problem Start: 02-20-2023 Telephone encounter Dmitry Menchaca MD Work Phone: Reproductive Endocrinology Infertility Comment on above: New IVF Start: 02-18-2023 End: 02-18-2023 ambulatory DMITRY MENCHACA Facility:[facility] Start: 12-19-2022 End: 12-19-2022 Nursing evaluation of patient and report Nurse Louisa [facility] William Reproductive Endocrinology Infertility Comment on above: Female infertility Start: 12-01-2022 ambulatory Miguel del cid APRN.INTERNATIONAL FLIGHT ATTENDANT Work Phone: Reproductive Endocrinology Infertility Comment on above: Next Steps Start: 11-30-2022 ambulatory Miguel del cid APRN.INTERNATIONAL FLIGHT ATTENDANT Work Phone: Reproductive Endocrinology Infertility Comment on above: Cycle Start: 11-28-2022 Telephone encounter Dmitry Menchaca MD Work Phone: Reproductive Endocrinology Infertility Comment on above: metformin refill / c ompletely out Start: 11-26-2022 Get Medical Advice Dmitry Menchaca MD Work Phone: Reproductive Endocrinology Infertility Comment on above: Refill Start: 11-17-2022 ambulatory Miguel del cid APRN.INTERNATIONAL FLIGHT ATTENDANT Work Phone: Reproductive Endocrinology Infertility Comment on above: Progesterone draw Start: 11-10-2022 End: 11-10-2022 Nursing evaluation of patient and report Nurse Louisa [facility] William Reproductive Endocrinology Infertility Comment on above: Female infertility Start: 11-07-2022 ambulatory Miguel del cid APRN.INTERNATIONAL FLIGHT ATTENDANT Work Phone: Reproductive Endocrinology Infertility Comment on above: Dexamethasone Start: 11-07-2022 End: 11-07-2022 Nursing evaluation of patient and report Nurse Louisa [facility] Re[facility] Reproductive Endocrinology Infertility Comment on above: Female infertility ( Primary Dx); Encounter for fertility planning Start: 10-27-2022 Telephone encounter Dmitry Menchaca MD Work Phone: Reproductive Endocrinology Infertility Comment on above: cd2; ret call Start: 09-30-2022 ambulatory Miguel del cid APRN.INTERNATIONAL FLIGHT ATTENDANT Work Phone: Reproductive Endocrinology Infertility Comment on above: Results Start: 09-29-2022 Telephone encounter Dmitry Menchaca MD Work Phone: Reproductive Endocrinology Infertility Comment on above: upset hasn't heard a nything reg us Start: 09-12-2022 ambulatory Dmitry Menchaca MD Work Phone: Reproductive Endocrinology Infertility Comment on above: Ultrasound results Start: 06-27-2022 ambulatory Dmitry Menchaca MD Work Phone: Reproductive Endocrinology Infertility Comment on above: Recommendation Start: 12-25-2021 End: 12-25-2021 ambulatory Dmitry Menchaca MD Work Phone: Reproductive Endocrinology Infertility Comment on above: Insulin resistance ( Primary Dx); Problems with ovulation Start: 12-25-2021 End: 12-25-2021 Telemedicine consultation with patient Dmitry Menchaca MD Work Phone: [facility] Start: 09-13-2021 End: 09-14-[address] DAVID MCKEON Facility:[facility] Start: 03-22-2021 End: 03-23-[address] DAVID MCKEON Facility:[facility] Start: 03-06-2021 End: 03-07-[address] DOCTOR GUPTA Facility:[facility] Start: 01-15-2021 End: 01-16-[address] [facility] Facility[facility] Start: 10-04-2020 End: 10-04-[address] [facility] Facility:[facility] Procedures Date Procedure Procedure Detail Performing Clinician Start: 01-23-2025 US OB TRANSVAGINAL [place] poly L Floro CNM Work Phone: Start: 01-23-2025 [facility] PREG QUANT HCG [place] poly L Floro CNM Work Phone: Start: 01-17-2025 US OB TRANSVAGINAL [place] poly L Floro CNM Work Phone: Start: 01-09-2025 Us preg uterus after 1st trimest 09/14 gestation Michel Joseph MD Work Phone: Start: 12-30-2024 Us preg uterus after 1st trimest 09/14 gestation Kobi Weiner PA-C Work Phone: Start: 11-25-2024 Us pelvic nonobstetr ic image dcmtn limited/f/u Leonel Dudziak WATER SUPERVISOR.INTERNATIONAL FLIGHT ATTENDANT Work Phone: Start: 11-24-2024 Us pelvic nonobstetr ic image dcmtn limited/f/u Leonel Dudziak WATER SUPERVISOR.INTERNATIONAL FLIGHT ATTENDANT Work Phone: Start: 11-21-2024 Us pelvic nonobstetr ic image dcmtn limited/f/u Leonel Dudziak WATER SUPERVISOR.INTERNATIONAL FLIGHT ATTENDANT Work Phone: Start: 11-14-2024 Us pelvic nonobstetr ic image dcmtn limited/f/u Leonel Dudziak WATER SUPERVISOR.INTERNATIONAL FLIGHT ATTENDANT Work Phone: Start: 11-08-2024 Adult depression scr eening assessment David Mckeon MD Work Phone: Start: 10-23-2024 Us pelvic nonobstetr ic image dcmtn limited/f/u Miguel Levy WATER SUPERVISOR.INTERNATIONAL FLIGHT ATTENDANT Work Phone: Start: 10-23-2024 Assay of estradiol Maine Gilliam MD Work Phone: Start: 10-21-2024 Us pelvic nonobstetr ic image dcmtn limited/f/u Miguel Mindzora WATER SUPERVISOR.INTERNATIONAL FLIGHT ATTENDANT Work Phone: Start: 10-19-2024 Us pelvic nonobstetr ic image dcmtn limited/f/u Michel Joseph MD Work Phone: Start: 10-12-2024 Us pelvic nonobstetr ic image dcmtn limited/f/u Michel Joseph MD Work Phone: Start: 10-07-2024 Adult depression scr eening assessment David Mckeon MD Work Phone: Start: 09-20-2024 Us pelvic nonobstetr ic image dcmtn limited/f/u Mihcel Joseph MD Work Phone: Start: 09-19-2024 Us pelvic nonobstetr ic image dcmtn limited/f/u Michel Joseph MD Work Phone: Start: 09-15-2024 Us pelvic nonobstetr ic image dcmtn limited/f/u Michel Joseph MD Work Phone: Start: 09-12-2024 Us pelvic nonobstetr ic image dcmtn limited/f/u Michel Joseph MD Work Phone: Start: 08-17-2024 Us pelvic nonobstetr ic image dcmtn limited/f/u Miguel Mindzora WATER SUPERVISOR.INTERNATIONAL FLIGHT ATTENDANT Work Phone: Start: 08-15-2024 Us pelvic nonobstetr ic image dcmtn limited/f/u Miguel Mindzora WATER SUPERVISOR.INTERNATIONAL FLIGHT ATTENDANT Work Phone: Start: 08-10-2024 Us pelvic nonobstetr ic image dcmtn limited/f/u Miguel Mindzora WATER SUPERVISOR.INTERNATIONAL FLIGHT ATTENDANT Work Phone: Start: 07-18-2024 Us pelvic nonobstetr ic image dcmtn limited/f/u Miguel Mindzora WATER SUPERVISOR.INTERNATIONAL FLIGHT ATTENDANT Work Phone: Start: 07-14-2024 Us pelvic nonobstetr ic image dcmtn limited/f/u Miguel Nanda WATER SUPERVISOR.INTERNATIONAL FLIGHT ATTENDANT Work Phone: Start: 07-07-2024 Us pelvic nonobstetr ic image dcmtn limited/f/u Miguel Nanda WATER SUPERVISOR.INTERNATIONAL FLIGHT ATTENDANT Work Phone: Start: 07-06-2024 Adult depression scr eening assessment David Mckeon MD Work Phone: Start: 06-15-2024 Us pelvic nonobstetr ic image dcmtn limited/f/u Michel Joseph MD Work Phone: Start: 06-13-2024 Us pelvic nonobstetr ic image dcmtn limited/f/u Michel Joseph MD Work Phone: Start: 06-10-2024 Us pelvic nonobstetr ic image dcmtn limited/f/u Michel Joseph MD Work Phone: Start: 06-06-2024 Us pelvic nonobstetr ic image dcmtn limited/f/u Michel Joseph MD Work Phone: Start: 06-03-2024 Us pelvic nonobstetr ic image dcmtn limited/f/u Michel Joseph MD Work Phone: Start: 05-27-2024 Us pelvic nonobstetr ic image dcmtn limited/f/u Kobi Weiner PA-C Work Phone: Start: 05-27-2024 Antibody screen MIGUEL LEVY Comment on above: Order Comment: Speci men Type: BLOOD SPECIMEN Ordering Facility: [facility] Address: [facility] [place] [address] Performed By: #### 1 0501-5, 2839-9, 2243-4 #### [facility] CLIA [id number] [facility] [place] [address] [place] Start: 05-13-2024 Urine test visual color cmprsn meths Michel Joseph MD Work Phone: Start: 04-29-2024 Saline infus sonohysterography w/color doppler Michel Joseph MD Work Phone: Start: 04-29-2024 Urine test visual color cmprsn jerzy Levy WATER SUPERVISOR.INTERNATIONAL FLIGHT ATTENDANT Work Phone: Start: 04-15-2024 Us pelvic nonobstetr ic image dcmtn limited/f/u Kobi Weiner PA-C Work Phone: Start: 03-08-2024 Colposcopy entire va mario w/cervix if present Pepe Pope MD Work Phone: Start: 03-08-2024 UA DIP,URINE HCG (POC) Pepe Pope MD Work Phone: Start: 01-21-2024 Microscopic observat ion [Identifier] in Cervix by Cyto stain Vee Esquivel WATER SUPERVISOR-INTERNATIONAL FLIGHT ATTENDANT Work Phone: Start: 01-11-2024 Us pelvic nonobstetr ic image dcmtn limited/f/u Leonel Dudziak WATER SUPERVISOR.INTERNATIONAL FLIGHT ATTENDANT Work Phone: Start: 01-08-2024 Us pelvic nonobstetr ic image dcmtn limited/f/u Leonel Dudziak WATER SUPERVISOR.INTERNATIONAL FLIGHT ATTENDANT Work Phone: Start: 01-01-2024 Us pelvic nonobstetr ic image dcmtn limited/f/u Leonel Dudziak WATER SUPERVISOR.INTERNATIONAL FLIGHT ATTENDANT Work Phone: Start: 11-20-2023 Adult depression scr eening assessment David Mckeon MD Work Phone: Start: 11-04-2023 Adult depression scr eening assessment David Mckeon MD Work Phone: Start: 10-23-2023 Us preg uterus after 1st trimest 09/14 gestation Lidar Technician Transcribe Provider Start: 10-01-2023 Antibody screen David hamilton Start: 08-25-2023 Us pelvic nonobstetr ic image dcmtn limited/f/u Leonel Dudziak WATER SUPERVISOR.INTERNATIONAL FLIGHT ATTENDANT Work Phone: Start: 08-19-2023 Us pelvic nonobstetr ic image dcmtn limited/f/u Leonel Dudziak WATER SUPERVISOR.INTERNATIONAL FLIGHT ATTENDANT Work Phone: Start: 08-11-2023 ALLERGEN SKIN TEST-MARIA G Camp MD Work Phone: Start: 07-30-2023 Us pelvic nonobstetr ic image dcmtn limited/f/u Radha Gilliam MD Work Phone: Start: 07-24-2023 Us pelvic nonobstetr ic image dcmtn limited/f/u Radha Gilliam MD Work Phone: Start: 07-17-2023 Assay of estradiol Maine Gilliam MD Work Phone: Start: 07-17-2023 Us pelvic nonobstetr ic image dcmtn limited/f/u Radha Gilliam MD Work Phone: Start: 06-26-2023 Us pelvic nonobstetr ic image dcmtn limited/f/u Radha Gilliam MD Work Phone: Start: 05-28-2023 Us pelvic nonobstetr ic image dcmtn limited/f/u Leonel Dudziak WATER SUPERVISOR.INTERNATIONAL FLIGHT ATTENDANT Work Phone: Start: 05-25-2023 Us pelvic nonobstetr ic image dcmtn limited/f/u Leonel Dudziak WATER SUPERVISOR.INTERNATIONAL FLIGHT ATTENDANT Work Phone: Start: 05-21-2023 Us pelvic nonobstetr ic image dcmtn limited/f/u Leonel Dudziak WATER SUPERVISOR.INTERNATIONAL FLIGHT ATTENDANT Work Phone: Start: 05-13-2023 Us pelvic nonobstetr ic image dcmtn limited/f/u Leonel Dudziak WATER SUPERVISOR.INTERNATIONAL FLIGHT ATTENDANT Work Phone: Start: 04-03-2023 Cath & saline/contra st sonohyster/hysterosalpi Tiffany Gonzalez MD Work Phone: Start: 12-19-2022 Us pelvic nonobstetr ic image dcmtn limited/f/u Miguel Esquivelzo WATER SUPERVISOR.INTERNATIONAL FLIGHT ATTENDANT Work Phone: Start: 11-10-2022 Us pelvic nonobstetr ic image dcmtn limited/f/u Miguel Mindzora WATER SUPERVISOR.INTERNATIONAL FLIGHT ATTENDANT Work Phone: Start: 11-07-2022 Us pelvic nonobstetr ic image dcmtn limited/f/u Kobi Weiner PA-C Work Phone: Start: 11-03-2022 Adult depression scr eening assessment Eugenia Cerda CMA Plan of Treatment Date Care Activity Detail Author Start: 2045 RSV Vaccine (1 - 1-dose 60+ series) RSV Vaccine (1 - 1-dose 60+ series) [facility] Start: 01-20-2029 Screening for malignant neoplasm of cervix [facility] Start: 01-20-2027 Screening for malignant neoplasm of cervix Pap Smear [facility] Start: 12-06-2025 Tobacco Screening Tobacco Screening [facility] Start: 11-22-2025 Adult BMI Screening Adult BMI Screening [facility] Start: 11-22-2025 Tobacco Screening Tobacco Screening [facility] Start: 11-09-2025 End: 11-09-2025 Patient encounter procedure 11/09/2025 8:30 AM EST Office Visit [facility] [address] [place] [phone] [place] [address] [place] [address] [phone] [facility] Start: 11-08-2025 Adult BMI Screening Adult BMI Screening [facility] Start: 11-08-2025 Depression Screening Depression Screening [facility] Start: 11-08-2025 Tobacco Screening Tobacco Screening [facility] Start: 07-06-2025 Adult BMI Screening Adult BMI Screening [facility] Start: 07-06-2025 Depression Screening Depression Screening [facility] Start: 07-06-2025 Tobacco Screening Tobacco Screening [facility] Start: 05-15-2025 Influenza vaccination Influenza Vaccine (Season Ended) [facility] Start: 03-02-2025 Adult BMI Screening Adult BMI Screening [facility] Start: 03-02-2025 Tobacco Screening Tobacco Screening [facility] Start: 01-20-2025 Screening for malignant neoplasm of cervix Cervical Cancer Screening [facility] Start: 01-20-2025 End: 01-20-2025 Professional / ancillary services management 01/20/2025 9:00 AM EDT Ancillary Procedure [facility] [address] [phone] [facility] Start: 01-10-2025 End: 01-10-2025 ambulatory 01/10/2025 4:30 PM EDT Initial [facility] [address] [place] [address] Leonel Sales, MARY [address] [place], [place] [phone] Arrived [facility] Comment on above: Arrived Start: 12-30-2024 End: 12-30-2025 OBSTETRIC ULTRASOUND [facility] OBSTETRIC ULTRASOUND [facility] Anc Imaging Routine Encounter for test, result positive (HCC) Expected: 12/30/2024, Expires: 12/30/2025 [facility] Work Phone: Comment on above: Expected: 12/30/2024, Expires: Start: 12-30-2024 End: 12-30-2024 Nursing evaluation of patient and report 12/30/2024 10:10 AM EDT Nurse Visit [facility] [address] [place] [address] [facility] Comment on above: us Start: 12-16-2024 End: 12-16-2025 OBSTETRIC ULTRASOUND [facility]I OBSTETRIC ULTRASOUND [facility] Anc Imaging Routine Encounter for test, result positive (HCC) Expected: 12/16/2024, Expires: 12/16/2025 [facility] Work Phone: Comment on above: Expected: 12/16/2024, Expires: Start: 12-06-2024 End: 12-06-2024 Patient encounter procedure 12/06/2024 10:15 AM EDT Office Visit [facility] [address] [facility] [place] [phone] Abida Duckworth APRN-INTERNATIONAL FLIGHT ATTENDANT [address] [place] [address] [facility] Start: 11-25-2024 End: 11-25-2024 Patient encounter procedure 11/25/2024 7:00 AM EDT Procedure [facility] [address] [place] [address] Visit type: Baseline SO us/e2 [facility] Comment on above: Visit type: Baseline SO us/e2 Start: 11-24-2024 End: 11-24-2024 Patient encounter procedure 11/24/2024 7:40 AM EDT Procedure [facility] [address] [place] [address] Visit type: Monitoring, SO us/e2 [facility] Comment on above: Visit type: Monitoring, SO us/e2 Start: 11-21-2024 End: 11-21-2024 Patient encounter procedure 11/21/2024 8:20 AM EDT Procedure [facility] [address] [place] [address] monitoring OI, us/e2 [facility] Comment on above: monitoring OI, us/e2 Start: 11-19-2024 Depression Screening Depression Screening [facility] Start: 11-19-2024 Tobacco Screening Tobacco Screening [facility] Start: 11-08-2024 End: 11-08-2025 CBC W Auto Differential panel - Blood CBC auto differential Lab Routine Routine general medical examination at a health care facility Expected: 11/08/2024, Expires: 11/08/2025 [facility] Work Phone: Comment on above: Expected: 11/08/2024, Expires: Start: 11-08-2024 End: 11-08-2025 Comprehensive metabolic 2000 panel - Serum or Plasma Comprehensive metabolic panel Lab Routine Routine general medical examination at a health care facility Expected: 11/08/2024, Expires: 11/08/2025 [facility] Comment on above: Expected: 11/08/2024, Expires: Start: 11-08-2024 End: 11-08-2025 Lipid 1996 panel - Serum or Plasma Lipid profile Lab Routine Routine general medical examination at a health care facility Expected: 11/08/2024, Expires: 11/08/2025 [facility] Comment on above: Expected: 11/08/2024, Expires: Start: 11-08-2024 End: 11-08-2025 Thyroid profile includes TSH FT4 Thyroid profile includes TSH FT4 Lab Routine Routine general medical examination at a health care facility Expected: 11/08/2024, Expires: 11/08/2025 [facility] Comment on above: Expected: 11/08/2024, Expires: Start: 11-08-2024 End: 11-08-2024 Patient encounter procedure [facility] Start: 11-04-2024 Adult BMI Screening Adult BMI Screening [facility] Start: 11-04-2024 Depression Screening Depression Screening [facility] Start: 11-04-2024 Tobacco Screening Tobacco Screening [facility] Start: 10-23-2024 End: 10-23-2024 ambulatory 10/23/2024 9:00 AM EST Procedure [facility] [address] [place] [id number] Monitoring, SO/US,e2 [facility] Comment on above: Monitoring, SO/US,e2 Start: 10-23-2024 End: 10-23-2024 Nursing evaluation of patient and report 10/23/2024 8:30 AM EST Nurse Visit [facility] [address] [place] [address] Beac, Nurse Louisa [facility] [address] [place] [address] e2 [facility] Comment on above: e2 Start: 10-20-2024 End: 10-20-2024 Patient encounter procedure 10/20/2024 6:00 PM EST Office Visit [facility] [address] [place] [address] Benefit check- Follicular US [facility] Comment on above: Benefit check- Follicular US Start: 10-19-2024 End: 10-19-2024 Patient encounter procedure 10/19/2024 7:20 AM EST Procedure [facility] [address] [place] [address] Monitoring, SO us/e2 [facility] Comment on above: Monitoring, SO us/e2 Start: 09-21-2024 End: 09-21-2024 Follow-up encounter 09/21/2024 1:30 PM EST [facility] [address] [place] [address] [place] [address] [place] [address] follow up SO cycle [facility] Comment on above: follow up SO cycle Start: 09-20-2024 End: 09-20-2024 ambulatory 09/20/2024 9:30 AM EST Procedure [facility] [address] [place] [address] Monitoring, SO us/e2 [facility] Comment on above: Monitoring, SO us/e2 Start: 09-19-2024 End: 09-19-2024 Patient encounter procedure 09/19/2024 7:20 AM EST Procedure [facility] [address] [place] [address] monitoring, so us/e2 [facility] Comment on above: monitoring, so us/e2 Start: 09-15-2024 End: 09-15-2024 Patient encounter procedure 09/15/2024 7:00 AM EST Procedure [facility] [address] [place] [address] SO us/e2 [facility] Comment on above: SO us/e2 Start: 09-09-2024 End: 09-09-2024 Patient encounter procedure 09/09/2024 6:00 PM EST Office Visit [facility] [address] [place] [address] follicle us -benefit check [facility] Comment on above: follicle us -benefit check Start: 08-17-2024 End: 08-17-2024 Nursing evaluation of patient and report 08/17/2024 7:30 AM EST Nurse Visit [facility] [address] [place] [address] Rej, Nurse Louisa [facility] [address] [place] [address] SuperOV US/e2 [facility] Comment on above: SuperOV US/e2 Start: 08-10-2024 End: 08-10-2024 Nursing evaluation of patient and report 08/10/2024 7:30 AM EST Nurse Visit [facility] [address] [place] [address] Rej, Nurse Louisa [facility] [address] [place] [address] e2 and us [facility] Comment on above: e2 and us Start: 07-18-2024 End: 07-18-2024 Nursing evaluation of patient and report 07/18/2024 7:00 AM EST Nurse Visit [facility] [address] [place] [address] Rej, Nurse Louisa [facility] [address] [place] [address] us,e2 [facility] Comment on above: us,e2 Start: 07-14-2024 End: 07-14-2024 Nursing evaluation of patient and report 07/14/2024 7:00 AM EDT Nurse Visit [facility] [address] [place] [address] Rej, Nurse Louisa [facility] [address] [place] [address] superov us/e2 [facility] Comment on above: superov us/e2 Start: 07-07-2024 End: 07-07-2024 Nursing evaluation of patient and report 07/07/2024 7:30 AM EDT Nurse Visit [facility] [address] [place] [address] Rej, Nurse Louisa [facility] [address] [place] [address] SO baseline [facility] Comment on above: SO baseline Start: 06-15-2024 End: 06-15-2024 Nursing evaluation of patient and report 06/15/2024 7:00 AM EDT Nurse Visit [facility] [address] [place] [address] Nurse Louisa Thomas [facility] [address] [place] [address] IVF us/e2/p4/lh [facility] Comment on above: IVF us/e2/p4/lh Start: 06-14-2024 End: 09-13-2024 Estradiol (E2) [Mass/volume] in Serum or Plasma ESTRADIOL-17B BLD Lab STAT Primary female infertility Expected: 06/14/2024 (Approximate), Expires: 09/13/2024 [facility] Comment on above: Expected: 06/14/2024 (Approximate), Expi res: 09/13/2024 Start: 06-14-2024 End: 09-13-2024 Lutropin [Units/volume] in Serum or Plasma LUTEINIZING HORMONE Lab STAT Primary female infertility Expected: 06/14/2024 (Approximate), Expires: 09/13/2024 [facility] Work Phone: Comment on above: Expected: 06/14/2024 (Approximate), Expi res: 09/13/2024 Start: 06-14-2024 End: 09-13-2024 Progesterone [Mass/volume] in Serum or Plasma PROGESTERONE Lab STAT Primary female infertility Expected: 06/14/2024 (Approximate), Expires: 09/13/2024 [facility] Comment on above: Expected: 06/14/2024 (Approximate), Expi res: 09/13/2024 Start: 06-13-2024 End: 06-13-2024 Nursing evaluation of patient and report 06/13/2024 8:15 AM EDT Nurse Visit [facility] [address] [place] [address] Nurse Louisa Thomas [facility] [address] [place] [address] superov us/e2 [facility] Comment on above: superov us/e2 Start: 06-06-2024 End: 06-06-2024 Nursing evaluation of patient and report 06/06/2024 8:45 AM EDT Nurse Visit [facility] [address] [place] [address] Nurse Louisa Thomas [facility] [address] [place] [address] S/O ,us e2 [facility] Comment on above: S/O ,us e2 Start: 06-03-2024 End: 06-03-2024 Patient encounter procedure 06/03/2024 8:40 AM EDT Office [place] [address] Fertility assistance [facility] Screening Comment on above: Fertility assistance Start: 06-03-2024 End: 06-03-2024 Nursing evaluation of patient and report 06/03/2024 7:00 AM EDT Nurse Visit [facility] [address] [place] [address] Nurse Louisa Thomas [facility] [address] [place] [address] Superov us/e2 [facility] Comment on above: Superov us/e2 Start: 05-30-2024 End: 05-30-2024 Telemedicine consultation with patient 05/30/2024 3:30 PM EDT Telemedicine [facility] [address] [place] [phone] Vee Esquivel, WATER SUPERVISOR-INTERNATIONAL FLIGHT ATTENDANT [address] [address] [facility] Start: 05-15-2024 Covid-19 Vaccine ( season) Covid-19 Vaccine ( season) [facility] Start: 05-15-2024 Covid-19 Vaccine ( season) Covid-19 Vaccine ( season) [facility] Start: 05-15-2024 Influenza vaccination [facility] Start: 04-29-2024 End: 04-29-2024 Patient encounter procedure 04/29/2024 11:00 AM EDT Office Visit [facility] [address] [place] [address] Miguel Levy, WATER SUPERVISOR.INTERNATIONAL FLIGHT ATTENDANT [address] [place] [place] [address] Rej, Nurse Louisa [facility] [address] [place] [address] SIS [facility] Comment on above: SIS Start: 04-15-2024 End: 04-15-2024 Nursing evaluation of patient and report 04/15/2024 7:45 AM EDT Nurse Visit [facility] [address] [place] [address] Rej, Nurse Louisa [facility] [address] [place] [address] midcycle ,lab work [facility] Comment on above: midcycle ,lab work Start: 03-12-2024 End: 03-12-2024 Patient encounter procedure 03/12/2024 6:00 PM EDT Office Visit [facility] [address] [place] [address] SIS benefit check [facility] Comment on above: SIS benefit check Start: 03-10-2024 End: 03-10-2024 Patient encounter procedure 03/10/2024 6:00 PM EDT Office Visit [facility] [address] [place] [address] Follicle us benefit check [facility] Comment on above: Follicle us benefit check Start: 03-08-2024 End: 03-08-2024 Patient encounter procedure 03/08/2024 2:00 PM EDT Office Visit OB/Gynecology [address] [place] [address] [place] [address] [place] [address] COLPOSCOPY; Cervical high risk HPV (human papillomavirus) test positive [R87.810] OB/Gynecology Comment on above: COLPOSCOPY; Cervical high risk HPV (fran n papillomavirus) test positive [R87.810] Start: 03-02-2024 End: 03-02-2024 Patient encounter procedure 03/02/2024 9:45 AM EDT Office Visit [facility] [address] [facility] [phone] Vee Esquivel, WATER SUPERVISOR-INTERNATIONAL FLIGHT ATTENDANT [address] [place] [address], [address] [address] [facility] Start: 02-23-2024 End: 02-23-2024 Patient encounter procedure 02/23/2024 3:00 PM EDT Office Visit [facility] [address] [address] [place] [address] [place] [address] Follow up, discuss plans former Althea knox [facility] Comment on above: Follow up, discuss plans former Althea crow t Start: 02-23-2024 End: 05-24-2024 17-Hydroxyprogesterone [Mass/volume] in Serum or Plasma HYDROXYPROGESTERONE-17 Lab Routine Androgen excess Expected: 02/23/2024, Expires: 05/24/2024 [facility] Comment on above: Expected: 02/23/2024, Expires: Start: 02-23-2024 End: 05-24-2024 Progesterone [Mass/volume] in Serum or Plasma PROGESTERONE Lab Routine Androgen excess Expected: 02/23/2024, Expires: 05/24/2024 [facility] Comment on above: Expected: 02/23/2024, Expires: Start: 02-23-2024 End: 05-24-2024 Testosterone [Mass/volume] in Serum or Plasma TESTOSTERONE, TOTAL Lab Routine Androgen excess Expected: 02/23/2024, Expires: 05/24/2024 [facility] Work Phone: Comment on above: Expected: 02/23/2024, Expires: Start: 02-23-2024 End: 05-24-2024 Thyrotropin [Units/volume] in Serum or Plasma THYROID STIMULATING HORMONE Lab Routine Androgen excess Expected: 02/23/2024, Expires: 05/24/2024 [facility] Comment on above: Expected: 02/23/2024, Expires: Start: 02-23-2024 End: 02-22-2025 US Uterus and Fallopian tubes W saline IU SONOHYSTEROGRAPHY (SIS) US I Anc Imaging Routine Fertility testing Expected: 02/23/2024, Expires: 02/22/2025 [facility] Comment on above: Expected: 02/23/2024, Expires: 5 Start: 02-05-2024 End: 05-06-2024 Choriogonadotropin.beta subunit [Units/volume] in Serum or Plasma HCG QUANTITATIVE Lab STAT Encounter for fertility testing Expected: 02/05/2024, Expires: 05/06/2024 [facility] Work Phone: Comment on above: Expected: 02/05/2024, Expires: 4 Start: 01-21-2024 End: 01-21-2024 Patient encounter procedure 01/21/2024 8:20 AM EDT Office Visit OB/Gynecology [address] [place] [address] [place] [address] [place] [address] annual OB/Gynecology Comment on above: annual Start: 01-19-2024 End: 01-19-2024 Patient encounter procedure 01/19/2024 8:30 AM EDT Office Visit [facility] [address] [facility] [address] [place] [phone] Joan [facility] [address] [facility] [address] [place] [address] [facility] Start: 12-30-2023 End: 03-30-2024 Choriogonadotropin.beta subunit [Units/volume] in Serum or Plasma HCG QUANTITATIVE Lab STAT Female infertility Expected: 12/30/2023, Expires: 03/30/2024 [facility] Work Phone: Comment on above: Expected: 12/30/2023, Expires: 4 Start: 12-30-2023 End: 03-30-2024 Lutropin [Units/volume] in Serum or Plasma LUTEINIZING HORMONE Lab STAT Female infertility Expected: 12/30/2023, Expires: 03/30/2024 [facility] Work Phone: Comment on above: Expected: 12/30/2023, Expires: 4 Start: 12-30-2023 End: 03-30-2024 Progesterone [Mass/volume] in Serum or Plasma PROGESTERONE Lab STAT Female infertility Expected: 12/30/2023, Expires: 03/30/2024 [facility] Work Phone: Comment on above: Expected: 12/30/2023, Expires: 4 Start: 11-20-2023 End: 11-19-2024 Hemoglobin A1c/Hemoglobin.total in Blood Hemoglobin A1c Lab Routine PCOS (polycystic ovarian syndrome) Hypertriglyceridemia Expected: 11/20/2023, Expires: 11/19/2024 [facility] Comment on above: Expected: 11/20/2023, Expires: 5 Start: 11-20-2023 End: 11-19-2024 Lipid 1996 panel - Serum or Plasma Lipid profile Lab Routine PCOS (polycystic ovarian syndrome) Hypertriglyceridemia Expected: 11/20/2023, Expires: 11/19/2024 [facility] Work Phone: Comment on above: Expected: 11/20/2023, Expires: 5 Start: 11-05-2023 End: 11-05-2023 ambulatory 11/05/2023 11:00 AM EST Initial [facility] [address] [facility] [address] [place] [phone] Joan Taylor MD [address] [facility] [address] [place] [address] [facility] Start: 11-04-2023 End: 11-03-2024 CBC W Auto Differential panel - Blood CBC auto differential Lab Routine Routine general medical examination at a health care facility Expected: 11/04/2023, Expires: 11/03/2024 [facility] Work Phone: Comment on above: Expected: 11/04/2023, Expires: 5 Start: 11-04-2023 End: 11-03-2024 Comprehensive metabolic 2000 panel - Serum or Plasma Comprehensive metabolic panel Lab Routine Routine general medical examination at a health care facility Expected: 11/04/2023, Expires: 11/03/2024 [facility] Comment on above: Expected: 11/04/2023, Expires: Start: 11-04-2023 End: 11-03-2024 Lipid 1996 panel - Serum or Plasma Lipid profile Lab Routine Routine general medical examination at a health care facility Expected: 11/04/2023, Expires: 11/03/2024 [facility] Comment on above: Expected: 11/04/2023, Expires: Start: 11-04-2023 End: 11-04-2023 Patient encounter procedure 11/04/2023 8:00 AM EST Office Visit [facility] [facility] [address] [place] [address] David Mckeon MD [address] [place] [address] [facility] Start: 11-03-2023 Adult BMI Screening Adult BMI Screening [facility] Start: 11-03-2023 Depression Screening Depression Screening [facility] Start: 11-03-2023 Tobacco Screening Tobacco Screening [facility] Start: 10-22-2023 End: 10-22-2024 OBSTETRIC ULTRASOUND WHI OBSTETRIC ULTRASOUND WHI Anc Imaging Routine Encounter to determine viability of , fetus 1 of multiple gestation Expected: 10/22/2023, Expires: 10/22/2024 [facility] Comment on above: Expected: 10/22/2023, Expires: Start: 10-21-2023 End: 10-21-2023 Professional / ancillary services management 10/21/2023 8:00 AM EST Ancillary Procedure [facility] [address] [place] [address] [facility] Start: 10-16-2023 End: 10-16-2024 Bacteria identified in Urine by Culture Urine culture Microbiology Routine Encounter for supervision of normal first in first trimester Expected: 10/16/2023 (Approximate), Expires: 10/16/2024 [facility] Comment on above: Expected: 10/16/2023 (Approximate), Expi res: 10/16/2024 Start: 10-16-2023 End: 10-16-2024 Urinalysis complete panel - Urine Urinalysis with microscopic Lab Routine Encounter for supervision of normal first in first trimester Expected: 10/16/2023 (Approximate), Expires: 10/16/2024 [facility] Comment on above: Expected: 10/16/2023 (Approximate), Expi res: 10/16/2024 Start: 09-30-2023 Diagnostic ultrasound of gravid uterus [facility] Start: 09-30-2023 Ultrasonography of bilateral kidneys US renal BI [facility] Start: 09-30-2023 US Kidney - bilateral [facility] Start: 09-30-2023 Transvaginal obstetric ultrasonography [facility] Start: 09-14-2023 Behavioral Health Screening Behavioral Health Screening [facility] Start: 09-14-2023 Depression Assessment Depression Assessment [facility] Start: 09-14-2023 zzBehavioral Health Screening zzBehavioral Health Screening [facility] Start: 05-15-2023 Covid-19 Vaccine ( season) Covid-19 Vaccine ( season) [facility] Start: 05-15-2023 Influenza vaccination [facility] Start: 03-09-2023 End: 05-09-2023 RUBELLA IGG AB RUBELLA IGG AB Lab Routine Immunity to rubella determined by serologic test Expected: 03/09/2023, Expires: 05/09/2023 [facility] Work Phone: Comment on above: Expected: 03/09/2023, Expires: 3 Start: 03-09-2023 End: 05-09-2023 TYPE + SCREEN TYPE + SCREEN Blood Bank Routine Encounter for fertility testing Expected: 03/09/2023, Expires: 05/09/2023 [facility] Work Phone: Comment on above: Expected: 03/09/2023, Expires: 3 Start: 03-09-2023 End: 05-09-2023 VARICELLA ZOSTER IGG VARICELLA ZOSTER IGG Lab Routine Immunity to varicella determined by serologic test Expected: 03/09/2023, Expires: 05/09/2023 [facility] Work Phone: Comment on above: Expected: 03/09/2023, Expires: 3 Start: 12-02-2022 End: 12-03-2023 FOLLICULAR US WHI FOLLICULAR US WHI Anc Imaging Routine Encounter for fertility testing Expected: 12/02/2022, Expires: 12/03/2023 [facility] Work Phone: Comment on above: Expected: 12/02/2022, Expires: 4 Start: 11-07-2022 End: 11-07-2023 FOLLICULAR US WHI FOLLICULAR US WHI Anc Imaging Routine Female infertility Expected: 11/07/2022, Expires: 11/07/2023 [facility] Work Phone: Comment on above: Expected: 11/07/2022, Expires: 4 Start: 10-27-2022 End: 10-27-2023 FOLLICULAR US WHI FOLLICULAR US WHI Anc Imaging Routine Encounter for fertility planning Expected: 10/27/2022, Expires: 10/27/2023 [facility] Work Phone: Comment on above: Expected: 10/27/2022, Expires: 4 Start: 09-29-2022 End: 11-29-2022 Choriogonadotropin.beta subunit [Units/volume] in Serum or Plasma [facility] Work Phone: Comment on above: Expected: 09/29/2022, Expires: 3 Start: 09-29-2022 End: 11-29-2022 Estradiol (E2) [Mass/volume] in Serum or Plasma [facility] Work Phone: Comment on above: Expected: 09/29/2022, Expires: 3 Start: 09-29-2022 End: 11-29-2022 Progesterone [Mass/volume] in Serum or Plasma [facility] Work Phone: Comment on above: Expected: 09/29/2022, Expires: Start: 09-14-2022 DEPRESSION ASSESSMENT DEPRESSION ASSESSMENT [facility] Start: 05-15-2022 Influenza vaccination [facility] Start: 09-14-2021 DEPRESSION ASSESSMENT DEPRESSION ASSESSMENT [facility] Start: 11-17-2015 HPV TESTING HPV TESTING [facility] Start: 11-17-2015 Screening for malignant neoplasm of cervix HPV Testing [facility] Start: 2006 PAP TESTING PAP TESTING [facility] Start: 2006 Screening for malignant neoplasm of cervix [facility] Start: 2004 DTaP,Tdap and Td Vaccines (1 - Tdap) DTaP,Tdap and Td Vaccines (1 - Tdap) [facility] Start: 2004 Hepatitis B Vaccine (1 of 3 - 19+ 3-dose series) Hepatitis B Vaccine (1 of 3 - 19+ 3-dose series) [facility] Start: 2004 Urine microalbumin profile [facility] Start: 11-17-2003 Adult BMI Follow Up Plan Adult BMI Follow Up Plan [facility] Start: 11-17-2003 Annual PCP Team Chronic Disease Visit Annual PCP Team Chronic Disease Visit [facility] Start: 11-17-2003 Anxiety Screening Anxiety Screening [facility] Start: 11-17-2003 BP Controlled (<130/80) BP Controlled (<130/80) [facility] Start: 11-17-2003 Depression Screening Depression Screening [facility] Start: 11-17-2003 HEPATITIS C SCREENING HEPATITIS C SCREENING [facility] Start: 11-17-2003 Hepatitis C screening Hepatitis C Screening [facility] Start: 11-17-2003 HIV SCREENING HIV SCREENING [facility] Start: 11-17-2003 HIV screening HIV Screening [facility] Start: 1997 Adult depression screening assessment DEPRESSION SCREENING [facility] Start: 1997 COVID-19 VACCINE (1) COVID-19 VACCINE (1) [facility] Start: 11-17-1991 PNEUMOCOCCAL (1 - PCV) PNEUMOCOCCAL (1 - PCV) [facility] Start: 11-17-1991 Pneumococcal vaccination [facility] Start: 05-19-1986 COVID-19 VACCINE (#1) COVID-19 VACCINE (#1) [facility] Start: 1985 HEPATITIS B (1 of 3 - 3-dose series) HEPATITIS B (1 of 3 - 3-dose series) [facility] Start: 1985 Hepatitis B Vaccine (1 of 3 - 3-dose series) Hepatitis B Vaccine (1 of 3 - 3-dose series) [facility] Start: 1985 Tobacco Counseling Tobacco Counseling [facility] ABO/Rh ABO/Rh Lab Routi ne Encounter for supervision of normal first in first trimester Ordered: 10/16/2023 [facility] [employer] Work Phone: Comment on above: Ordered: 10/16/2023 Antibody screen Antibody screen Lab Routine Encounter for supervision of normal first in first trimester Ordered: 10/16/2023 [facility] [employer] Comment on above: Ordered: 10/16/2023 End: 04-07-2024 Cath & saline/contrast sonohyster/hysterosalpi XR HYSTEROSALPINGOGRAM Radiology Routine Encounter for fertility testing 1 Occurrences starting 03/09/2023 until 04/07/2024 [facility] Work Phone: Comment on above: 1 Occurrences starting 03/09/2023 until 04/07/2024 CBC W Auto Different ial panel - Blood CBC and differential Lab Routine Encounter for supervision of normal first in first trimester Ordered: 10/16/2023 [facility] [employer] Comment on above: Ordered: 10/16/2023 Chlamydia trachomatis+Neisseria gonorrhoeae DNA [Presence] in Unspecified specimen by KINDRA with probe detection GONORRHEA/CHLAMYDIA NAAT Lab Routine Exposure to sexually transmitted disease (STD) 01/21/2024 8:48 AM EDT [facility] End: 11-05-2024 Choriogonadotropin.beta subunit [Units/volume] in Serum or Plasma HCG QUANTITATIVE Lab STAT Encounter for test, result positive Daily for 3 Occurrences starting 11/06/2023 until 11/05/2024 [facility] Work Phone: Comment on above: Daily for 3 Occurrences starting 024 until 11/05/2024 End: 12-12-2025 Choriogonadotropin.beta subunit [Units/volume] in Serum or Plasma HCG QUANTITATIVE Lab Routine Encounter for test, result positive 2x per week for 2 Occurrences starting 12/12/2024 until 12/12/2025 [facility] Work Phone: Comment on above: 2x per week for 2 Occurrences starting 0 12/12/2024 until 12/12/2025 Choriogonadotropin.b eta subunit [Units/volume] in Serum or Plasma HCG QUANTITATIVE Lab Routine Encounter for test, result positive 12/12/2024 5:05 PM EDT [facility] End: 09-14-2023 Estradiol (E2) [Mass/volume] in Serum or Plasma ESTRADIOL-17B BLD Lab STAT Encounter for fertility testing 6 Occurrences starting 05/12/2023 until 09/14/2023 [facility] Work Phone: Comment on above: 6 Occurrences starting 05/12/2023 until 09/14/2023 End: 08-17-2024 Estradiol (E2) [Mass/volume] in Serum or Plasma ESTRADIOL-17B BLD Lab STAT Primary female infertility Daily for 5 Occurrences starting 08/18/2023 until 08/17/2024 [facility] Work Phone: Comment on above: Daily for 5 Occurrences starting 023 until 08/17/2024 End: 04-27-2024 Estradiol (E2) [Mass/volume] in Serum or Plasma ESTRADIOL-17B BLD Lab STAT Female infertility 6 Occurrences starting 12/29/2023 until 04/27/2024 [facility] Work Phone: Comment on above: 6 Occurrences starting 12/29/2023 until 04/27/2024 End: 04-13-2024 Estradiol (E2) [Mass/volume] in Serum or Plasma ESTRADIOL-17B BLD Lab STAT Female infertility 6 Occurrences starting 03/09/2024 until 04/13/2024 [facility] Work Phone: Comment on above: 6 Occurrences starting 03/09/2024 until 04/13/2024 End: 07-04-2025 Estradiol (E2) [Mass/volume] in Serum or Plasma ESTRADIOL-17B BLD Lab STAT Female infertility Daily for 4 Occurrences starting 07/04/2024 until 07/04/2025 [facility] Comment on above: Daily for 4 Occurrences starting 024 until 07/04/2025 End: 08-08-2025 Estradiol (E2) [Mass/volume] in Serum or Plasma ESTRADIOL-17B BLD Lab STAT Female infertility Daily for 4 Occurrences starting 08/08/2024 until 08/08/2025 [facility] Comment on above: Daily for 4 Occurrences starting 024 until 08/08/2025 End: 09-09-2025 Estradiol (E2) [Mass/volume] in Serum or Plasma ESTRADIOL-17B BLD Lab STAT Female infertility Daily for 6 Occurrences starting 09/09/2024 until 09/09/2025 [facility] Comment on above: Daily for 6 Occurrences starting 024 until 09/09/2025 End: 10-19-2025 Estradiol (E2) [Mass/volume] in Serum or Plasma ESTRADIOL-17B BLD Lab STAT Female infertility Daily for 3 Occurrences starting 10/19/2024 until 10/19/2025 [facility] Work Phone: Comment on above: Daily for 3 Occurrences starting 025 until 10/19/2025 End: 11-11-2025 Estradiol (E2) [Mass/volume] in Serum or Plasma ESTRADIOL-17B BLD Lab STAT Encounter for fertility testing Daily for 6 Occurrences starting 11/14/2024 until 11/11/2025 [facility] Work Phone: Comment on above: Daily for 6 Occurrences starting 025 until 11/11/2025 End: 09-08-2023 FOLLICULAR US WHI FOLLICULAR US WHI Anc Imaging Routine Encounter for fertility testing Daily for 6 Occurrences starting 05/12/2023 until 09/08/2023 [facility] Work Phone: Comment on above: Daily for 6 Occurrences starting 023 until 09/08/2023 End: 10-08-2023 FOLLICULAR US WHI FOLLICULAR US WHI Anc Imaging Routine Female infertility Daily for 6 Occurrences starting 08/18/2023 until 10/08/2023 [facility] Work Phone: Comment on above: Daily for 6 Occurrences starting 023 until 10/08/2023 End: 04-27-2024 FOLLICULAR US WHI FOLLICULAR US WHI Anc Imaging Routine Female infertility 6 Occurrences starting 12/29/2023 until 04/27/2024 [facility] Work Phone: Comment on above: 6 Occurrences starting 12/29/2023 until 04/27/2024 End: 05-27-2024 FOLLICULAR US WHI FOLLICULAR US WHI Anc Imaging Routine Female infertility 6 Occurrences starting 03/09/2024 until 05/27/2024 [facility] Comment on above: 6 Occurrences starting 03/09/2024 until 05/27/2024 End: 07-04-2025 FOLLICULAR US WHI FOLLICULAR US WHI Anc Imaging Routine Female infertility Daily for 4 Occurrences starting 07/04/2024 until 07/04/2025 [facility] Work Phone: Comment on above: Daily for 4 Occurrences starting 024 until 07/04/2025 End: 03-08-2025 FOLLICULAR US WHI FOLLICULAR US WHI Anc Imaging Routine Female infertility Daily for 4 Occurrences starting 08/08/2024 until 03/08/2025 [facility] Work Phone: Comment on above: Daily for 4 Occurrences starting until 03/08/2025 End: 11-14-2024 FOLLICULAR US WHI FOLLICULAR US WHI Anc Imaging Routine Female infertility Daily for 6 Occurrences starting 09/09/2024 until 11/14/2024 [facility] Comment on above: Daily for 6 Occurrences starting 024 until 11/14/2024 End: 02-14-2025 FOLLICULAR US WHI FOLLICULAR US WHI Anc Imaging Routine Encounter for fertility testing Daily for 6 Occurrences starting 11/14/2024 until 02/14/2025, 1 completed [facility] Comment on above: Daily for 6 Occurrences starting 025 until 02/14/2025, 1 completed Hepatitis B virus surface Ag [Presence] in Serum or Plasma by Immunoassay Hepatitis B surface antigen Lab Routine Encounter for supervision of normal first in first trimester Ordered: 10/16/2023 [facility] Comment on above: Ordered: 10/16/2023 HIV-1/HIV-2 antigen/antibody combination immunoassay HIV-1 and HIV-2 antibodies Lab Routine Encounter for supervision of normal first in first trimester Ordered: 10/16/2023 [facility] Comment on above: Ordered: 10/16/2023 End: 09-09-2025 Lutropin [Units/volume] in Serum or Plasma LUTEINIZING HORMONE Lab STAT Female infertility Daily for 6 Occurrences starting 09/09/2024 until 09/09/2025 [facility] Comment on above: Daily for 6 Occurrences starting 024 until 09/09/2025 OFFICE HYSTEROSCOPY OFFICE HYSTE ROSCOPY Procedures Routine Encounter for fertility testing Ordered: 05/05/2024 [facility] Work Phone: Comment on above: Ordered: 05/05/2024 PAP TEST PAP TEST Lab Rou liliana Encounter for Papanicolaou smear for cervical cancer screening 01/21/2024 8:44 AM EDT [facility] Work Phone: Patient Education Asymptomatic b acteriuria Urinary tract infections in [facility] Work Phone: Patient referral [facility] Work Phone: End: 09-09-2025 Progesterone [Mass/volume] in Serum or Plasma PROGESTERONE Lab STAT Female infertility Daily for 6 Occurrences starting 09/09/2024 until 09/09/2025 [facility] Work Phone: Comment on above: Daily for 6 Occurrences starting 024 until 09/09/2025 End: 12-25-2022 PROGESTERONE BLD PROGESTERONE BLD Lab Routine Problems with ovulation Once per month for 12 Occurrences starting 12/25/2021 until 12/25/2022 [facility] Work Phone: Comment on above: Once per month for 12 Occurrences starti ng 12/25/2021 until 12/25/2022 Reagin Ab [Presence] in Serum by RPR RPR Lab Routine Encounter for supervision of normal first in first trimester Ordered: 10/16/2023 [facility] Comment on above: Ordered: 10/16/2023 Rubella antibody, IgG Rubella an tibody, IgG Lab Routine Encounter for supervision of normal first in first trimester Ordered: 10/16/2023 [facility] Comment on above: Ordered: 10/16/2023 SURGICAL PATHOLOGY SURGICAL PATH OLOGY Lab Routine Endometrial polyp 05/13/2024 12:26 PM EDT [facility] Work Phone: [facility] Immunizations Immunization Date Immunization Notes Care Provider [facility] 06-02-2020 influenza, injectabl e, quadrivalent, preservative free Eugenia Cerda [facility] 06-02-2020 influenza virus vacc ine, unspecified formulation Odalis Parikh MD Work Phone: [facility] 05-29-2020 influenza, injectabl e, quadrivalent, preservative free Eugenia Cerda [facility] 07-27-2018 influenza, injectabl e, quadrivalent, preservative free Eugenia Cerda [facility] 07-24-2009 novel Influenza-H1N1 -09, live virus for nasal administration Eugenia Cerda [facility] Payers Date Payer Category Payer Self-pay [id number] 2019 Commercial Managed [facility] [employer] [id number] 2019 Private Health Insurance [id number] 2019 Unknown MMO MMO [employer] [id number] 2019-Present [phone] [address] [place] [address] PPO [id number] 2019 Unknown [id number] 1985 Unknown [id number] [id number] .593 1985 Unknown [id number] 2.16.840.1.642926.3.579.2 .593 1985 Unknown [id number] 2.16.840.1.649715.3.579.2 .593 1985 Unknown [id number] 2.16.840.1.987586.3.579.2 .593 1985 Unknown [id number] 2.16.840.1.345169.3.579.2 .593 1985 Unknown [id number] 2.16.840.1.674951.3.579.2 .1286 1985 Unknown [id number] 2.16.840.1.724040.3.579.2 .1286 1985 Unknown [id number] 2.16.840.1.246509.3.579.2 .1286 1985 Unknown [id number] 2.16.840.1.265548.3.579.2 .1286 1985 Unknown [id number] 2.16.840.1.428341.3.579.2 .1286 1985 Unknown [id number] 2.16.840.1.683412.3.579.2 .1286 1985 Unknown [id number] 2.16.840.1.759620.3.579.2 .1286 1985 Unknown [id number] 2.16.840.1.852016.3.579.2 .1286 1985 Unknown [id number] 2.16.840.1.402257.3.579.2 .1286 1985 Unknown [id number] 2.16.840.1.638491.3.579.2 .1259 1959 Unknown [id number] Unknown [id number] .531 Worker's Compensation [id number] Social History Date Type Detail Facility Start: 10-15-2020 End: 03-09-2023 Tobacco smoking status [facility] Occasional tobacco smoker [facility] End: 09-28-2023 History of tobacco use Cigarette Smoker [facility] Start: 10-15-2020 End: 08-14-2024 Cigarettes smoked current (pack per day) - Reported 1 [facility] Start: 10-15-2020 End: 10-16-2023 Tobacco use and exposure Smokeless tobacco non-user [facility] Start: 10-15-2020 End: 10-05-2023 Alcohol intake Lifetime non-drinker (finding) [facility] Start: 10-15-2020 History SDOH Alcohol Frequency 1 [facility] Start: 1985 Sex Assigned At Female [facility] Start: 10-15-2020 End: 08-14-2024 Alcohol Use Disorder Identification Test - Consumption [AUDIT-C] [facility] How often to you hav e a drink containing alcohol? Never [facility] Average Number of Drinks Not on file [facility] Start: 06-12-2021 Gender identity Identifies as female gender (finding) [facility] Start: 06-12-2021 Sexual orientation Heterosexual (finding) [facility] Start: 10-16-2023 End: 10-30-2023 Tobacco smoking status VAIS Ex-smoker [facility] End: 09-28-2023 History of tobacco use Current smoker [facility] Start: 10-16-2023 End: 01-10-2025 Alcohol intake Ex-drinker (finding) [facility] Start: 10-16-2023 Alcohol Comment Caffeine intake: 8-12oz coffee/day [facility] Start: 08-30-2023 [facility] Start: 1985 Sex Assigned At Not on file [facility] Start: 10-07-2024 End: 12-06-2024 Alcoholic beverage intake Current non-drinker of alcohol (finding) [facility] Start: 04-19-2015 End: 11-25-2024 Sex Female (finding) [facility] Start: 05-02-2022 Tobacco smoking status NHIS Smokes tobacco daily [facility] Goals Date Patient Goal Desired Activity /State Personal health goal Clinical Notes 12-25-2021 to 01-16-2025 Telephone Encounter - Geni Rose - 01/16/2025 2:26 PM EDTTelephone Encounter - Geni Rose - 01/16/2025 2:26 PM Miguel Bravo APRN.[facility] - 01/09/2025 3:43 PM EDTPatient Instructions Note Date & Type Note Facility 01-16-2025 Telephone encounter Note Hi there. My name is Tin Red. Now I am just calling because I did see that my blood results came in and it looks like my HCG levels went down. So I just wanted to talk about what our next steps so that if we need to get something scheduled we can get it scheduled, I can be called back At [phone] am currently available until about 230 and then I have a meeting then until about 330. So I look forward to hearing back if you can again my numbers [phone]. Thanks and have a good day. [facility] 01-16-2025 Miscellaneous Notes Hi there. My name is Tin Red. Now I am just calling because I did see that my blood results came in and it looks like my HCG levels went down. So I just wanted to talk about what our next steps so that if we need to get something scheduled we can get it scheduled, I can be called back At [phone] am currently available until about 230 and then I have a meeting then until about 330. So I look forward to hearing back if you can again my numbers [phone]. Thanks and have a good day. documented in this encounter [facility] 01-09-2025 Note HNO ID: [id number] Author: MIGUEL LEVY APRN.CNP Service: ? Author Type: Nurse Practitioner Type: Progress Notes Filed: 01/09/2025 16:05 Note Text: Spoke with Tin, Reviewed diagnosis of missed from today's ultrasound. Discussed options for medical, surgical or expectant management. Leaning towards medical management but wants to further review with her prior to making final decisions. Is meeting with her SPUDDER tomorrow, may follow up with care from that office as well. Will call back and let us know how she wishes to proceed. Miguel Levy APRN.CNP January 09, 2025 4:05 PM [facility] 01-09-2025 History of Present illness Narrative Spoke with Tin, Reviewed diagnosis of missed from today's ultrasound. Discussed options for medical, surgical or expectant management. Leaning towards medical management but wants to further review with her prior to making final decisions. Is meeting with her SPUDDER tomorrow, may follow up with care from that office as well. Will call back and let us know how she wishes to proceed. Miguel Levy APRN.CNP January 09, 2025 4:05 PM documented in this encounter [facility] 12-30-2024 Note HNO ID: [id number] Author: SHYLA ORR APRN.CNP Service: ? Author Type: Nurse Practitioner Type: Progress Notes Filed: 12/30/2024 17:37 Note Text: spoke with Tin Please schedule the patient for the following- Location: [place] Provider: nurse Visit type: scan Reason for visit/appointment notes: scan Date: 01/09 Time (requested): 1040 If slot is full, please schedule the closest open slot. Call to patient needed: no [facility] 12-30-2024 History of Present illness Narrative spoke with Tin Please schedule the patient for the following- Location: [place] Provider: nurse Visit type: scan Reason for visit/appointment notes: scan Date: 01/09 Time (requested): 1040 If slot is full, please schedule the closest open slot. Call to patient needed: no I met with the couple in person following their scan to discuss results and next steps. I counseled them that I suspect that this is a non viable given reliable dating (vishal since the 4 corpus lutea match the 4 follicles at time of trigger) and lack of clear pole and yolk sac at 7 weeks gestation. I recommend repeat scan in 11-14 days, though next Thursday is also OK, as they have a planned OB visit on the following Thursday. She will continue progesterone unless she has a full flow period. Precautions and instructions reviewed. I also disclosed that I will be leaving [facility] in February and counseled regarding transferring care to one of my partners. Michel Joseph MD December 30, 2024 1:32 PM documented in this encounter [facility] 12-30-2024 Note HNO ID: [id number] Author: MICHEL JOSEPH MD Service: ? Author Type: Physician Type: Progress Notes Filed: 12/30/2024 13:32 Note Text: I met with the couple in person following their scan to discuss results and next steps. I counseled them that I suspect that this is a non viable given reliable dating (vishal since the 4 corpus lutea match the 4 follicles at time of trigger) and lack of clear pole and yolk sac at 7 weeks gestation. I recommend repeat scan in 11-14 days, though next Thursday is also OK, as they have a planned OB visit on the following Thursday. She will continue progesterone unless she has a full flow period. Precautions and instructions reviewed. I also disclosed that I will be leaving [facility] in February and counseled regarding transferring care to one of my partners. Michel Joseph MD December 30, 2024 1:32 PM [facility] 12-16-2024 Note HNO ID: [id number] Author: KOBI WEINER PA-C Service: ? Author Type: Physician Generator Repairer Type: Progress Notes Filed: 12/16/2024 14:20 Note Text: REPRODUCTIVE ENDOCRINOLOGY AND INFERTILITY New SERVICE DATE: 12/16/2024 SERVICE TIME: 2:00 PM NAME: Tin Arizmendi VIRTUAL VISIT PROGRESS NOTE This is a virtual visit. It required patient-provider interaction for the medical decision making as documented below. Patient name and birthday verified: Yes Location of patient: [place] Persons Present: patient I have communicated my name and active licensure. The patient's identity and physical location were verified at the time of this visit. 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 Reason for visit: new , next steps History of ectopic: No History of SAB: Yes LMP 11/11/24 date of LH surge: trigger 11/25/24 fertility medications used this cycle letrozole 10mg, FSH 75mg, dexamethasone, progesterone IUI done: no, TIC Labs: Latest Ref Rng 03/12/2023 05/27/2024 ABO O Rh(D) Positive Antibody Screen Negative Type+Scr Expiration 05/30/2024 23:59 Historical Ab Scr Status NEGATIVE Varicella Zoster IgG, Qual Positive Positive Rubella IgG, Qual Positive Positive hCG levels: Latest Ref Rng 12/12/2024 12/14/2024 hCG Quantitative, Blood <5.0 mIU/mL 164.2 (H) 252.5 (H) Legend: (H) High Dating: Currently 4w6d based off of Ovulation Date. . Symptoms: Pain: none, some cramping Bleeding: none Nausea/Vomiting: none Current Medications: Taking PNV: yes Prometrium: yes Reviewed history, intake and most recent plan from primary [facility]OUISA provider. Assessment: Positive test Plan: further labwork needed: none scan scheduled: 12/29. Pt will call to schedule medications to discontinue: none Schedule with OB: will schedule Kobi Weiner PA-C December 16, 2024 2:00 PM I spent a total of 20 minutes on the date of the service which included preparing to see the patient, completing clinical documentation, counseling and educating the patient/family/caregiver, ordering medications, tests, or procedures, independently interpreting results (not separately reported), communicating results to the patient/family/caregiver, and care coordination (not separately reported). To patients reading this note: Please be advised the primary purpose of this note is for me to communicate with myself and other members of your medical team. Standard sentence structure is not always used. Medical terminology and medical abbreviations may be used. There may be grammatical and typographical errors missed in proofreading. [facility] 12-16-2024 History of Present illness Narrative Images from the original note were not included. REPRODUCTIVE ENDOCRINOLOGY AND INFERTILITY New SERVICE DATE: 12/16/2024 SERVICE TIME: 2:00 PM NAME: Tin Arizmendi VIRTUAL VISIT PROGRESS NOTE This is a virtual visit. It required patient-provider interaction for the medical decision making as documented below. Patient name and birthday verified: Yes Location of patient: [place] Persons Present: patient I have communicated my name and active licensure. The patient's identity and physical location were verified at the time of this visit. 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 Reason for visit: new , next steps History of ectopic: No History of SAB: Yes LMP 11/11/24 date of LH surge: trigger 11/25/24 fertility medications used this cycle letrozole 10mg, FSH 75mg, dexamethasone, progesterone IUI done: no, TIC Labs: Latest Ref Rng 03/12/2023 05/27/2024 ABO O Rh(D) Positive Antibody Screen Negative Type+Scr Expiration 05/30/2024 23:59 Historical Ab Scr Status NEGATIVE Varicella Zoster IgG, Qual Positive Positive Rubella IgG, Qual Positive Positive hCG levels: Latest Ref Rng 12/12/2024 12/14/2024 hCG Quantitative, Blood <5.0 mIU/mL 164.2 (H) 252.5 (H) Legend: (H) High Dating: Currently 4w6d based off of Ovulation Date. . Symptoms: Pain: none, some cramping Bleeding: none Nausea/Vomiting: none Current Medications: Taking PNV: yes Prometrium: yes Reviewed history, intake and most recent plan from primary [facility]OUISA provider. Assessment: Positive test Plan: further labwork needed: none scan scheduled: 12/29. Pt will call to schedule medications to discontinue: none Schedule with OB: will schedule Kobi Weiner PA-C December 16, 2024 2:00 PM I spent a total of 20 minutes on the date of the service which included preparing to see the patient, completing clinical documentation, counseling and educating the patient/family/caregiver, ordering medications, tests, or procedures, independently interpreting results (not separately reported), communicating results to the patient/family/caregiver, and care coordination (not separately reported). To patients reading this note: Please be advised the primary purpose of this note is for me to communicate with myself and other members of your medical team. Standard sentence structure is not always used. Medical terminology and medical abbreviations may be used. There may be grammatical and typographical errors missed in proofreading. documented in this encounter [facility] 12-12-2024 Telephone encounter Note Patient called back in still trying to get blood work scheduled she is very frustrated that she isn't getting a call back. [facility] 12-12-2024 Miscellaneous Notes Patient called back in still trying to get blood work scheduled she is very frustrated that she isn't getting a call back. Patient with positive urine test chart review for the following information: History of ectopic: No History of SAB: Yes LMP 11/11/24 date of LH surge: trigger 11/25/24 fertility medications used this cycle letrozole 10mg, FSH 75mg, dexamethasone, progesterone IUI done: no, TIC Labs: Latest Ref Rng 03/12/2023 05/27/2024 ABO O Rh(D) Positive Antibody Screen Negative Type+Scr Expiration 05/30/2024 23:59 Historical Ab Scr Status NEGATIVE Varicella Zoster IgG, Qual Positive Positive Rubella IgG, Qual Positive Positive Current medications: Current Outpatient Medications on File Prior to Visit Medication Sig progesterone micronized (PROMETRIUM) 200 mg capsule Use 1 capsule vaginally daily at bedtime. Starts 3 days after trigger and stop if no test 20 days after trigger chorionic gonadotropin (PREGNYL) 10,000 unit solr 10,000 Units once daily. 10,000 Units as directed. Inject 10,000 units for HCG trigger letrozole (FEMARA) 2.5 mg tablet Take 4 tablets by mouth once daily. metFORMIN (GLUCOPHAGE) 500 mg tablet Take 1 tablet by mouth twice daily Follitropin Beta (FOLLISTIM AQ) 300 unit/0.36 mL Inject 200 Units subcutaneously once daily dexAMETHasone (DECADRON) 0.5 mg tablet Take 1 tablet by mouth once daily. Norethin Misael-Eth Estrad-FE (MICROGESTIN FE) 1.5 mg-30 mcg (21)/75 mg (7) tablet Take 1 tablet by mouth once daily. ethynodiol diacetate-ethinyl estradiol 1 mg-35 mcg (ZOVIA , 28,) 1-35 mg-mcg per tablet Start day 1 of full flow period. Take 1 pill by mouth daily at bedtime, active pills only. Skip or throw out placebo week. PNV no.95/ferrous fum/folic ac ( ORAL) Take by mouth. medroxyPROGESTERone (PROVERA) 10 mg tablet Take 1 tablet by mouth two times a day. (Patient not taking: Reported on 05/13/2024) metFORMIN (GLUCOPHAGE) 850 mg tablet Take 1 tablet by mouth two times a day. Follitropin Ila (GONAL-F RFF REDI-JECT) 300/0.5 unit/mL pnij Inject 75 Units subcutaneously once daily. dexAMETHasone (DECADRON) 0.5 mg tablet Take 1 tablet by mouth once daily. metFORMIN (GLUCOPHAGE) 850 mg tablet Take 1 tablet by mouth twice daily with meals. spironolactone (ALDACTONE) 25 mg tablet Take 25 mg by mouth once daily. On hold for bupropion HCl (BUPROBAN ORAL) Take 150 mg by mouth once daily. No current facility-administered medications on file prior to visit. Routing to MAN team for next steps. Pau Dorman RN December 12, 2024 9:38 AM Please follow up with patient she would like to get bloodwork done. documented in this encounter [facility] 12-12-2024 Telephone encounter Note See other TE for 12/09 Pau Dorman RN December 12, 2024 9:41 AM [facility] 12-12-2024 Miscellaneous Notes See other TE for 12/09 Pau Dorman RN December 12, 2024 9:41 AM Patient calling back with +hpt everyday since , please call patient. So Pt and wants a call back please documented in this encounter [facility] 12-12-2024 Telephone encounter Note Patient with positive urine test chart review for the following information: History of ectopic: No History of SAB: Yes LMP 2/28/25 date of LH surge: trigger 11/25/24 fertility medications used this cycle letrozole 10mg, FSH 75mg, dexamethasone, progesterone IUI done: no, TIC Labs: Latest Ref Rng 03/12/2023 05/27/2024 ABO O Rh(D) Positive Antibody Screen Negative Type+Scr Expiration 05/30/2024 23:59 Historical Ab Scr Status NEGATIVE Varicella Zoster IgG, Qual Positive Positive Rubella IgG, Qual Positive Positive Current medications: Current Outpatient Medications on File Prior to Visit Medication Sig progesterone micronized (PROMETRIUM) 200 mg capsule Use 1 capsule vaginally daily at bedtime. Starts 3 days after trigger and stop if no test 20 days after trigger chorionic gonadotropin (PREGNYL) 10,000 unit solr 10,000 Units once daily. 10,000 Units as directed. Inject 10,000 units for HCG trigger letrozole (FEMARA) 2.5 mg tablet Take 4 tablets by mouth once daily. metFORMIN (GLUCOPHAGE) 500 mg tablet Take 1 tablet by mouth twice daily Follitropin Beta (FOLLISTIM AQ) 300 unit/0.36 mL Inject 200 Units subcutaneously once daily dexAMETHasone (DECADRON) 0.5 mg tablet Take 1 tablet by mouth once daily. Norethin Misael-Eth Estrad-FE (MICROGESTIN FE) 1.5 mg-30 mcg (21)/75 mg (7) tablet Take 1 tablet by mouth once daily. ethynodiol diacetate-ethinyl estradiol 1 mg-35 mcg (ZOVIA 35E, 28,) 1-35 mg-mcg per tablet Start day 1 of full flow period. Take 1 pill by mouth daily at bedtime, active pills only. Skip or throw out placebo week. PNV no.95/ferrous fum/folic ac ( ORAL) Take by mouth. medroxyPROGESTERone (PROVERA) 10 mg tablet Take 1 tablet by mouth two times a day. (Patient not taking: Reported on 05/13/2024) metFORMIN (GLUCOPHAGE) 850 mg tablet Take 1 tablet by mouth two times a day. Follitropin Ila (GONAL-F RFF REDI-JECT) 300/0.5 unit/mL pnij Inject 75 Units subcutaneously once daily. dexAMETHasone (DECADRON) 0.5 mg tablet Take 1 tablet by mouth once daily. metFORMIN (GLUCOPHAGE) 850 mg tablet Take 1 tablet by mouth twice daily with meals. spironolactone (ALDACTONE) 25 mg tablet Take 25 mg by mouth once daily. On hold for bupropion HCl (BUPROBAN ORAL) Take 150 mg by mouth once daily. No current facility-administered medications on file prior to visit. Routing to MAN team for next steps. Pau Dorman RN December 12, 2024 9:[address] [facility] 12-12-2024 Telephone encounter Note Patient calling back with +hpt everyday since , please call patient. [facility] Work Phone: 12-09-2024 Telephone encounter Note So Pt and wants a call back please [facility] 12-09-2024 Telephone encounter Note Please follow up with patient she would like to get bloodwork done. [facility] Work Phone: 12-06-2024 History of Present illness Narrative Images from the original note were not included. Subjective Tin Arizmendi is a 39 y.o. female status post excision of left pannus inclusion cyst on 11/22/2024. She did present to the urgent care a few days after surgery due to itching. She states she had an allergic reaction to the adhesive. The incision itself was not red. She denies any drainage. She denies any fever or chills. No concerns today. Objective There were no vitals filed for this visit. Physical Exam Constitutional: General: She is not in acute distress. Appearance: Normal appearance. She is not ill-appearing. HENT: Head: Normocephalic and atraumatic. Mouth/Throat: Mouth: Mucous membranes are moist. Eyes: Pupils: Pupils are equal, round, and reactive to light. Pulmonary: Effort: Pulmonary effort is normal. No respiratory distress. Abdominal: Palpations: Abdomen is soft. Tenderness: There is no abdominal tenderness. Musculoskeletal: General: Normal range of motion. Skin: General: Skin is warm and dry. Comments: Left pannus incision well healed. No erythema, swelling or drainage. Neurological: Mental Status: She is alert and oriented to person, place, and time. Mental status is at baseline. Final Pathologic Diagnosis Skin and soft tissue, abdomen, excisional biopsy: Benign epidermal/epidermoid inclusion cyst (one), ruptured, with marked acute inflammation, mild chronic inflammation and granulation tissue, abdomen. Assessment Tin Arizmendi is a 39 y.o.female postoperative excision of inclusion cyst. Plan Follow up p.r.n.. Inclusion cyst [L72.0] LYUDMILA PADGETT [facility] General Surgery [place] This note was created with the assistance of a speech recognition program. While intending to generate a timely document that accurately reflects the content of the visit, no guarantee can be provided that every grammatical or spelling mistake has been or will be identified or corrected. Thank you for your understanding. LYUDMILA Padgett 12/06/24 [id number] documented in this encounter [facility] 11-25-2024 Miscellaneous Notes Return call. Patient wanted clarification on what day to start progesterone suppositories. Patient will start them 11/28 at bedtime. Nam Arias RN November 25, 2024 2:53 PM Pt has a questions about her progesterone shots documented in this encounter [facility] 11-25-2024 Telephone encounter Note Return call. Patient wanted clarification on what day to start progesterone suppositories. Patient will start them 11/28 at bedtime. Nam Arias RN November 25, 2024 2:53 PM [facility] 11-25-2024 Telephone encounter Note Pt has a questions about her progesterone shots [facility] 11-25-2024 Note HNO ID: [id number] Author: NILTON ZHANG RN Service: ? Author Type: Registered Nurse Type: Progress Notes Filed: 11/25/2024 13:18 Note Text: RN called patient,no answer, left VM. Plan given for trigger and TI cycle per physician,via [employer] message sent with instructions. Nilton Zhang RN November 25, 2024 1:16 PM [facility] 11-25-2024 History of Present illness Narrative RN called patient,no answer, left VM. Plan given for trigger and TI cycle per physician,via [employer] message sent with instructions. Nilton Zhang RN November 25, 2024 1:16 PM The patient is here today for follicular ultrasound and blood work. The patient reports no problems or complaints. Ultrasound and blood will be reviewed by the physician, the flow sheet will be updated and instructions will be communicated to the patient. Nilton Zhang RN November 25, 2024 9:25 AM documented in this encounter [facility] 11-25-2024 Note HNO ID: [id number] Author: NILTON ZHANG RN Service: ? Author Type: Registered Nurse Type: Progress Notes Filed: 11/25/2024 09:26 Note Text: The patient is here today for follicular ultrasound and blood work. The patient reports no problems or complaints. Ultrasound and blood will be reviewed by the physician, the flow sheet will be updated and instructions will be communicated to the patient. Nilton Zhang RN November 25, 2024 9:25 AM [facility] 11-24-2024 History of Present illness Narrative [facility] Attending Physician Note: Ultrasound and lab results reviewed. Based on review of ultrasound and lab results, medication dose and follow up date plans provided. See cycle flowsheet for dosing details. Tiffany Gonzalez MD, CROW Per Dr. Joseph, yes, that's fine. 200mg oral or vaginal prometrium given 3 days after trigger The patient is here today for follicular ultrasound and blood work. The patient reports no problems or complaints. Ultrasound and blood will be reviewed by the physician, the flow sheet will be updated and instructions will be communicated to the patient. Mary Ann Kirkland RN RN called patient, name and verified. Plan given for SO cycle per physician, see flowsheet for details. Multi[employer] message sent. Medications reviewed and verified, instructions given. Patient denies any questions or concerns. Message sent to scheduling pool for next appt. Location: [place] Visit type: Baseline SO us/e2 Date: 11/25 @ 0700 LAUREN Haque RN November 24, 2024 12:39 PM documented in this encounter [facility] 11-24-2024 Note HNO ID: [id number] Author: TIFFANY GONZALEZ MD Service: ? Author Type: Physician Type: Progress Notes Filed: 11/24/2024 11:34 Note Text: [facility]ISA Attending Physician Note: Ultrasound and lab results reviewed. Based on review of ultrasound and lab results, medication dose and follow up date plans provided. See cycle flowsheet for dosing details. Tiffany Gonzalez MD, CROW [facility] 11-24-2024 Note HNO ID: [id number] Author: MARY ANN KIRKLAND RN Service: ? Author Type: Registered Nurse Type: Progress Notes Filed: 11/24/2024 12:39 Note Text: Per Dr. Joseph, yes, that's fine. 200mg oral or vaginal prometrium given 3 days after trigger The patient is here today for follicular ultrasound and blood work. The patient reports no problems or complaints. Ultrasound and blood will be reviewed by the physician, the flow sheet will be updated and instructions will be communicated to the patient. Mary Ann Kirkland RN RN called patient, name and verified. Plan given for SO cycle per physician, see flowsheet for details. Multi[employer]t message sent. Medications reviewed and verified, instructions given. Patient denies any questions or concerns. Message sent to scheduling pool for next appt. Location: [place] Visit type: Baseline SO us/e2 Date: 11/25 @ 0700 LAUREN Haque RN November 24, 2024 12:39 PM [facility] 11-22-2024 History of Present illness Narrative Images from the original note were not included. Chief Complaint: Epidermoid cyst History of Present Illness: Tin Arizmendi is a 39 y.o. female who presents to the office with epidermoid cyst on her left inferior pannus. It was been present for 6-8 weeks. It was painful to touch. Notes redness. She was placed on antibiotics by her primary care. Denies drainage. Size of a dime HPI Review of Systems Constitutional: Negative for fever and chills. Respiratory: Negative for shortness of breath. Cardiovascular: Negative for chest pain and palpitations. Gastrointestinal: Negative for nausea, vomiting and abdominal pain. Genitourinary: Negative for dysuria and difficulty urinating. Skin: Negative for rash and wound. Epidermoid cyst Allergic/Immunologic: Negative for immunocompromised state. Neurological: Negative for weakness and light-headedness. Hematological: Does not bruise/bleed easily. Psychiatric/Behavioral: Negative for behavioral problems and confusion. Past Medical History: Diagnosis Date Chronic kidney disease Hx of lithotripsy 2004, 2013 Kidney stones Moderate obstructive sleep apnea 08/30/2020 AHI 20/11 min O2 78% NIKO (obstructive sleep apnea) 01/2022 ON CPAP PCOS (polycystic ovarian syndrome) Past Surgical History: Procedure Laterality Date CHOLECYSTECTOMY LITHOTRIPSY 2004, 2013 Allergies Allergen Reactions Amoxil [Amoxicillin] Penicillins Current Outpatient Medications: CEPHalexin (KEFLEX) 500 mg capsule, Take 1 capsule (500 mg total) by mouth in the morning and 1 capsule (500 mg total) before bedtime., Disp: , Rfl: dexAMETHasone (DECADRON) 0.5 mg tablet, Take 1 tablet (0.5 mg total) by mouth., Disp: , Rfl: FOLLISTIM AQ 300 unit/0.36 mL cartridge, INJECT 200 IU SUBCUTANEOUSLY ONCE DAILY DIRECTED, Disp: , Rfl: letrozole (FEMARA) 2.5 mg chemo tablet, Take 4 tablets by mouth daily, Disp: , Rfl: metFORMIN (GLUCOPHAGE) 500 mg tablet, Take 1 tablet (500 mg total) by mouth in the morning and 1 tablet (500 mg total) before bedtime., Disp: , Rfl: tiZANidine (ZANAFLEX) 4 mg tablet, Take 1 tablet (4 mg total) by mouth every 8 (eight) hours as needed for muscle spasms., Disp: 60 tablet, Rfl: 1 Social History Socioeconomic History Marital status: Spouse name: Not on file Number of children: Not on file Years of education: Not on file Highest education level: Not on file Occupational History Not on file Tobacco Use Smoking status: Former Types: Cigarettes Smokeless tobacco: Never Vaping Use Vaping status: Never Used Substance and Sexual Activity Alcohol use: No Drug use: No Sexual activity: Defer Other Topics Concern Not on file Social History Narrative Not on file Social Drivers of Health Financial Resource Strain: Not on file Food Insecurity: No Food Insecurity (11/08/2024) Hunger Screening Food Insecurity - Worry: Never True Food Insecurity - Inability: Never True Transportation Needs: Not on file Physical Activity: Not on file Stress: Not on file Social Connections: Not on file Interpersonal Safety: Not on file Housing Instability: Not on file Family History Problem Relation Age of Onset Hypertension Mother Diabetes Father Lung cancer Maternal Grandmother Diabetes Maternal Grandfather Diabetes Paternal Grandmother Stomach cancer Paternal Grandfather Physical Exam Vitals reviewed. Constitutional: Appearance: Normal appearance. HENT: Head: Normocephalic and atraumatic. Eyes: Pupils: Pupils are equal, round, and reactive to light. Cardiovascular: Rate and Rhythm: Normal rate. Pulmonary: Effort: Pulmonary effort is normal. Abdominal: General: There is no distension. Palpations: Abdomen is soft. Tenderness: There is no abdominal tenderness. Musculoskeletal: General: No swelling. Skin: General: Skin is warm and dry. Comments: Epidermoid cyst left pannus, 1.5 cm Neurological: Mental Status: She is alert and oriented to person, place, and time. Mental status is at baseline. Psychiatric: Mood and Affect: Mood normal. Behavior: Behavior normal. Vital Signs: Height 162.6 cm (5' 4 ), weight 119.3 kg (263 lb). Respiratory Source: No data recorded Admission Weight: Weight: 119.3 kg (263 lb) Labs: Lab Results Component Value Date WBC 8.5 11/08/2024 HGB 13.2 11/08/2024 HCT 38.7 11/08/2024 MCV 89 11/08/2024 PLT 338 11/08/2024 Lab Results Component Value Date GLU 94 11/08/2024 CALCIUM 9.0 11/08/2024 K 3.5 11/08/2024 CO2 25 11/08/2024 CL 106 11/08/2024 BUN 8 11/08/2024 CREATININE 0.83 11/08/2024 No results found for: AMYLASE No results found for: LIPASE Lab Results Component Value Date ALT 32 (H) 11/08/2024 AST 32 11/08/2024 ALKPHOS 54 11/08/2024 No results found for: INR , PROTIME In office procedure Consent was obtained The area was prepped and draped in the usual sterile fashion. Local anesthesia was infiltrated. An elliptical incision was made around the lesion, deepened through skin subcutaneous tissue. The epidermoid cyst was completely excised. Hemostasis was assured. The skin was reapproximated using interrupted deep dermal 3-0 Vicryl suture followed by continuous subcuticular 4-0 Monocryl. Steri-Strips were applied. Assessment: Tin Arizmendi is a 39 y.o.female with epidermoid cyst, 1.5 cm, history of inflammation Inclusion cyst [L72.0] Plan: Excision performed in the office today. Follow up pathology Evaluation included: Preparing to see the patient (e.g., review of tests) Obtaining and/or reviewing separately obtained history Performing a medically appropriate examination and/or evaluation Counseling and educating the patient/family/caregiver Referring and communicating with other health physician assistant primary care Mlilie Ellis MD [facility] General Surgery [place] documented in this encounter [facility] 11-21-2024 Note HNO ID: [id number] Author: MARY ANN KIRKLAND RN Service: ? Author Type: Registered Nurse Type: Progress Notes Filed: 11/21/2024 14:25 Note Text: The patient is here today for follicular ultrasound and blood work. The patient reports no problems or complaints. Ultrasound and blood will be reviewed by the physician, the flow sheet will be updated and instructions will be communicated to the patient. Pt questioning if she should take progesterone this cycle, since she hasn't tried that yet. Message sent to EGR. Mary Ann Kirkland RN RN called patient, name and verified. Plan given for SO cycle per physician, see flowsheet for details. MyChart message sent. Medications reviewed and verified, instructions given. Patient denies any questions or concerns. Message sent to scheduling pool for next appt. Location: [place] Visit type: Monitoring, SO us/e2 Date: 11/24 @ 0740 am Mary Ann Kirkland RN November 21, 2024 2:24 PM [facility] 11-21-2024 History of Present illness Narrative The patient is here today for follicular ultrasound and blood work. The patient reports no problems or complaints. Ultrasound and blood will be reviewed by the physician, the flow sheet will be updated and instructions will be communicated to the patient. Pt questioning if she should take progesterone this cycle, since she hasn't tried that yet. Message sent to EGR. Mary Ann Kirkland RN RN called patient, name and verified. Plan given for SO cycle per physician, see flowsheet for details. MyChart message sent. Medications reviewed and verified, instructions given. Patient denies any questions or concerns. Message sent to scheduling pool for next appt. Location: [place] Visit type: Monitoring, SO us/e2 Date: 11/24 @ 0740 am Mary Ann Kirkland RN November 21, 2024 2:24 PM documented in this encounter [facility] 11-14-2024 Telephone encounter Note Automatic PA started when medication ordered. PA closed: : Drug is covered by current benefit plan. No further PA activity needed Pt called stating she needs a PA. Called [facility] to discuss the PA message I received. Still showing on [facility]'s end that a PA is needed. Started cover my meds. Ayala: [id number] Drug is covered by current benefit plan. No further PA activity needed. Called patient . She is on the phone with [employer] now trying to find out what the problem is. Let her know we will adjust everything by one day if needed. Mary Ann Kirkland RN November 14, 2024 3:39 PM Called patient to see if she was able to get Letrozole and she was. She started last night. Plan continues as given yesterday. Mary Ann Kirkland RN November 15, 2024 3:06 PM [facility] 11-14-2024 Miscellaneous Notes Automatic PA started when medication ordered. PA closed: : Drug is covered by current benefit plan. No further PA activity needed Pt called stating she needs a PA. Called [facility] to discuss the PA message I received. Still showing on [facility]'s end that a PA is needed. Started cover my meds. Ayala: [id number] Drug is covered by current benefit plan. No further PA activity needed. Called patient . She is on the phone with [employer] now trying to find out what the problem is. Let her know we will adjust everything by one day if needed. Mary Ann Kirkland RN November 14, 2024 3:39 PM Called patient to see if she was able to get Letrozole and she was. She started last night. Plan continues as given yesterday. Mary Ann Kirkland RN November 15, 2024 3:06 PM Pt states her letrozole needs a pa and needs the medication by today documented in this encounter [facility] 11-14-2024 Telephone encounter Note Pt states her letrozole needs a pa and needs the medication by today [facility] 11-14-2024 Note HNO ID: [id number] Author: MARY ANN KIRKLAND RN Service: ? Author Type: Registered Nurse Type: Progress Notes Filed: 11/14/2024 14:01 Note Text: Tin Arizmendi was here today for a baseline scan. Location: [place] Visit type: monitoring OI, us/e2 Date: 11/21 Plan: 11/14/2024 CD4 letrozole 10 dex 0.5mg 20<10mm 18<10mm 4mm tri e2=39 MA 11/15/2024 5 letrozole 10 dex 0.5mg 2024 6 letrozole 10 dex 0.5mg 11/17/2024 7 letrozole 10 dex 0.5mg FSH 75 11/18/2024 8 letrozole 10 dex 0.5mg FSH 75 11/19/2024 9 dex 0.5mg FSH 75 11/20/2024 10 dex 0.5mg FSH 75 11/21/2024 11 dex 0.5mg scan RN called patient, name and verified. Plan given for IVF cycle per physician, see flowsheet for details. Multiplicomt message sent. Medications reviewed and verified, instructions given. Patient denies any questions or concerns. Message sent to scheduling pool for next appt. Mary Ann Kirkland RN November 14, 2024 2:00 PM [facility] 11-14-2024 History of Present illness Narrative Tin Arizmendi was here today for a baseline scan. Location: [place] Visit type: monitoring OI, us/e2 Date: 11/21 Plan: 11/14/2024 CD4 letrozole 10 dex 0.5mg 20<10mm 18<10mm 4mm tri e2=39 MA 11/15/2024 5 letrozole 10 dex 0.5mg 2024 6 letrozole 10 dex 0.5mg 11/17/2024 7 letrozole 10 dex 0.5mg FSH 75 11/18/2024 8 letrozole 10 dex 0.5mg FSH 75 11/19/2024 9 dex 0.5mg FSH 75 11/20/2024 10 dex 0.5mg FSH 75 11/21/2024 11 dex 0.5mg scan RN called patient, name and verified. Plan given for IVF cycle per physician, see flowsheet for details. MyChart message sent. Medications reviewed and verified, instructions given. Patient denies any questions or concerns. Message sent to scheduling pool for next appt. Mary Ann Kirkland RN November 14, 2024 2:00 PM documented in this encounter [facility] 11-14-2024 Telephone encounter Note The following approved medication requests have been transmitted electronically. Requested Prescriptions Signed Prescriptions Disp Refills chorionic gonadotropin (PREGNYL) 10,000 unit solr 1 Each 1 Si,000 Units once daily. 10,000 Units as directed. Inject 10,000 units for HCG trigger Authorizing Provider: LEONEL CABEZAS letrozole (FEMARA) 2.5 mg tablet 20 tablet 5 Sig: Take 4 tablets by mouth once daily. Authorizing Provider: LEONEL CABEZAS APRN.INTERNATIONAL FLIGHT ATTENDANT [facility] 11-14-2024 Miscellaneous Notes The following approved medication requests have been transmitted electronically. Requested Prescriptions Signed Prescriptions Disp Refills chorionic gonadotropin (PREGNYL) 10,000 unit solr 1 Each 1 Si,000 Units once daily. 10,000 Units as directed. Inject 10,000 units for HCG trigger Authorizing Provider: LEONEL CABEZAS letrozole (FEMARA) 2.5 mg tablet 20 tablet 5 Sig: Take 4 tablets by mouth once daily. Authorizing Provider: LEONEL CABEZAS APRN.INTERNATIONAL FLIGHT ATTENDANT Returned call to patient. Scheduled for baseline for 11/14/24 @ 0740 at [place]. Pt. States she needs refill on letrozole and trigger shot. Medication orders pended. Nilton Zhang RN November 11, 2024 8:32 AM Super ov Patient started period- calling to schedule baseline documented in this encounter [facility] 11-11-2024 Telephone encounter Note Returned call to patient. Scheduled for baseline for 11/14/24 @ 0740 at [place]. Pt. States she needs refill on letrozole and trigger shot. Medication orders pended. Nilton Zhang RN November 11, 2024 8:32 AM [facility] 11-11-2024 Telephone encounter Note Super ov Patient started period- calling to schedule baseline [facility] 11-08-2024 History of Present illness Narrative Images from the original note were not included. [id number] [facility] [id number] Subjective: Tin Arizmendi is a 38 y.o. female who presents for an Annual Wellness exam. 38 yo WF with wellness, dealing with PCOS sees [facility] and metformin continues, nonsmoker, rare ethanol, PA is encouraged, has gained 5# The following portions of the patient's history were reviewed and updated as appropriate: medications, allergies, past medical history, past surgical history, social history, family history and immunization history Vitals: Vitals: 11/08/24 0753 BP: 142/86 Pulse: 75 Resp: 18 SpO2: 95% Weight: 119.7 kg (264 lb) History: There are no active problems to display for this patient. Past Medical History: Diagnosis Date Chronic kidney disease Hx of lithotripsy 2004, 2013 Kidney stones Moderate obstructive sleep apnea 08/30/2020 AHI 20/11 min O2 78% NIKO (obstructive sleep apnea) 01/2022 ON CPAP PCOS (polycystic ovarian syndrome) Past Surgical History: Procedure Laterality Date CHOLECYSTECTOMY LITHOTRIPSY 2004, 2013 Family History Problem Relation Age of Onset Hypertension Mother Diabetes Father Lung cancer Maternal Grandmother Diabetes Maternal Grandfather Diabetes Paternal Grandmother Social History Tobacco Use Smoking status: Former Types: Cigarettes Smokeless tobacco: Never Substance Use Topics Alcohol use: No Allergies: Allergies Allergen Reactions Amoxil [Amoxicillin] Penicillins Immunization History Administered Date(s) Administered H1N1 Nasal 07/24/2009 Influenza, Injectable, quadrivalent (PF) 07/27/2018, 05/29/2020, 06/02/2020 Review of Systems: Review of Systems Respiratory: Negative. Cardiovascular: Negative. Gastrointestinal: Negative. Genitourinary: Negative. Skin: Ingrown hair pannus? Objective: BP 142/86 Pulse 75 Resp 18 Wt 119.7 kg (264 lb) SpO2 95% BMI 45.32 kg/m Physical Exam Vitals and nursing note reviewed. Constitutional: Appearance: Normal appearance. HENT: Head: Normocephalic and atraumatic. Eyes: Extraocular Movements: Extraocular movements intact. Pupils: Pupils are equal, round, and reactive to light. Cardiovascular: Rate and Rhythm: Normal rate and regular rhythm. Pulses: Normal pulses. Heart sounds: Normal heart sounds. Pulmonary: Effort: Pulmonary effort is normal. Breath sounds: Normal breath sounds. Skin: General: Skin is warm and dry. Comments: Inclusion cyst pannus Neurological: General: No focal deficit present. Mental Status: She is alert and oriented to person, place, and time. Assessment/Plan: Tin was seen today for annual exam. Diagnoses and all orders for this visit: Routine general medical examination at a health care facility - CBC auto differential; Future - Comprehensive metabolic panel; Future - Lipid profile; Future - Thyroid profile includes TSH FT4; Future Inclusion cyst - [facility] [place], [place]; Future PCOS (polycystic ovarian syndrome) Other orders - CEPHalexin (KEFLEX) 500 mg capsule; Take 2 capsules (1,000 mg total) by mouth in the morning and 2 capsules (1,000 mg total) before bedtime. Do all this for 10 days. Plan Outpatient Medications Prior to Visit Medication Sig Dispense Refill metFORMIN (GLUCOPHAGE) 500 mg tablet Take 1 tablet (500 mg total) by mouth in the morning and 1 tablet (500 mg total) before bedtime. tiZANidine (ZANAFLEX) 4 mg tablet Take 1 tablet (4 mg total) by mouth every 8 (eight) hours as needed for muscle spasms. 60 tablet 1 No facility-administered medications prior to visit. Follow Up: Fasting wellness labs F/u [facility] Keflex rx and general surgery referral documented in this encounter [facility] 10-26-2024 Note HNO ID: [id number] Author: MICHEL JOSEPH MD Service: ? Author Type: Physician Type: Progress Notes Filed: 10/26/2024 13:22 Note Text: Late entry. I spoke with patient on 10/23/24 and expressed my concern regarding proceeding in setting of 5+ dominant follicles. I counseled regarding risks both to her body and to future offspring (e.g. high order multiples, premature prematurity, etc). She expressed excellent understanding of these risks. She would like to proceed. I counseled regarding selective reduction should she have higher order multiples. She would like to proceed and agreed with plan of selective reduction. While I do recommend canceling given these risks, I do feel that the patient is well informed and is making an informed choice which is not unreasonable. I communicated this plan back to Dr Parikh. Michel Joseph MD [facility] 10-23-2024 Note HNO ID: [id number] Author: IVY GARDNER RN Service: ? Author Type: Registered Nurse Type: Progress Notes Filed: 10/23/2024 11:52 Note Text: The patient is here today for follicular ultrasound and blood work. The patient reports no problems or complaints. Ultrasound and blood will be reviewed by the physician, the flow sheet will be updated and instructions will be communicated to the patient. Ivy Gardner RN Plan review with patient and sent to my chart. Ivy Gardner RN October 23, 2024 11:51 AM [facility] 10-23-2024 History of Present illness Narrative The patient is here today for follicular ultrasound and blood work. The patient reports no problems or complaints. Ultrasound and blood will be reviewed by the physician, the flow sheet will be updated and instructions will be communicated to the patient. Ivy Gardner RN Plan review with patient and sent to my chart. Ivy Gardner RN October 23, 2024 11:51 AM documented in this encounter [facility] 10-21-2024 Note HNO ID: [id number] Author: NAM ARIAS RN Service: ? Author Type: Registered Nurse Type: Progress Notes Filed: 10/21/2024 12:55 Note Text: The patient is here today for follicular ultrasound and blood work. The patient reports no problems or complaints. Ultrasound and blood will be reviewed by the physician, the flow sheet will be updated and instructions will be communicated to the patient. Nam Arias RN RN called patient, name and verified. Plan given for IVF cycle per physician, see flowsheet for details. [employer] message sent. Medications reviewed and verified, instructions given. Patient denies any questions or concerns. Message sent to scheduling pool for next appt. Nam Arias RN October 21, 2024 12:55 PM [facility] 10-21-2024 History of Present illness Narrative The patient is here today for follicular ultrasound and blood work. The patient reports no problems or complaints. Ultrasound and blood will be reviewed by the physician, the flow sheet will be updated and instructions will be communicated to the patient. Nam Arias RN RN called patient, name and verified. Plan given for IVF cycle per physician, see flowsheet for details. MyChart message sent. Medications reviewed and verified, instructions given. Patient denies any questions or concerns. Message sent to scheduling pool for next appt. Nam Arias RN October 21, 2024 12:55 PM documented in this encounter [facility] 10-19-2024 Note HNO ID: [id number] Author: NAM ARIAS RN Service: ? Author Type: Registered Nurse Type: Progress Notes Filed: 10/19/2024 13:31 Note Text: The patient is here today for follicular ultrasound and blood work. The patient reports no problems or complaints. Ultrasound and blood will be reviewed by the physician, the flow sheet will be updated and instructions will be communicated to the patient. Nam Arias RN RN called patient, name and verified. Plan given for IVF cycle per physician, see flowsheet for details. [employer] message sent. Medications reviewed and verified, instructions given. Patient denies any questions or concerns. Message sent to scheduling pool for next appt. Nam Arias RN October 19, 2024 1:27 PM [facility] 10-19-2024 History of Present illness Narrative The patient is here today for follicular ultrasound and blood work. The patient reports no problems or complaints. Ultrasound and blood will be reviewed by the physician, the flow sheet will be updated and instructions will be communicated to the patient. Nam Arias RN RN called patient, name and verified. Plan given for IVF cycle per physician, see flowsheet for details. [employer] message sent. Medications reviewed and verified, instructions given. Patient denies any questions or concerns. Message sent to scheduling pool for next appt. Nam Arias RN October 19, 2024 1:27 PM documented in this encounter [facility] 10-12-2024 Note HNO ID: [id number] Author: MARY ANN KIRKLAND RN Service: ? Author Type: Registered Nurse Type: Progress Notes Filed: 10/12/2024 14:36 Note Text: The patient is here today for follicular ultrasound and blood work. The patient reports no problems or complaints. Ultrasound and blood will be reviewed by the physician, the flow sheet will be updated and instructions will be communicated to the patient. Mary Ann Kirkland RN RN called patient, name and verified. Plan given for IVF cycle per physician, see flowsheet for details. [employer] message sent. Medications reviewed and verified, instructions given. Patient denies any questions or concerns. Message sent to scheduling pool for next appt. Mary Ann Kirkland RN October 12, 2024 2:36 PM [facility] 10-12-2024 History of Present illness Narrative The patient is here today for follicular ultrasound and blood work. The patient reports no problems or complaints. Ultrasound and blood will be reviewed by the physician, the flow sheet will be updated and instructions will be communicated to the patient. Mary Ann Krikland RN RN called patient, name and verified. Plan given for IVF cycle per physician, see flowsheet for details. Multi[employer] message sent. Medications reviewed and verified, instructions given. Patient denies any questions or concerns. Message sent to scheduling pool for next appt. Mary Ann Kirkland RN October 12, 2024 2:36 PM documented in this encounter [facility] 10-10-2024 Telephone encounter Note Returned patient. Today is cycle day 2. Needs to baseline for SO. Episode for SO #10 created. Per EGR 09/21/24 For SO, same protocol as the last cycle (SO#9) Location: [place] Visit type: Baseline, SO us/e2 Date: 10/12 @ 719 Mray Ann Kirkland RN October 10, 2024 3:50 PM [facility] 10-10-2024 Miscellaneous Notes Returned patient. Today is cycle day 2. Needs to baseline for SO. Episode for SO #10 created. Per EGR 09/21/24 For SO, same protocol as the last cycle (SO#9) Location: [place] Visit type: Baseline, SO us/e2 Date: 10/12 @ 719 Mary Ann Kirkland RN October 10, 2024 3:50 PM Needs to schedule so us documented in this encounter [facility] 10-10-2024 Telephone encounter Note Needs to schedule so us [facility] 10-07-2024 History of Present illness Narrative Images from the original note were not included. [id number] [place] [address] SUBJECTIVE: Patient ID: Tin Arizmendi is a 38 y.o. female. 38 yo WF with 3 days of low back pain after moving - tried ice , biofreeze, tylenol and lidocaine, happens rarely, midline no sciatica The following portions of the patient's history were reviewed and updated as appropriate: allergies, current medications, past family history, past medical history, past social history, past surgical history and problem list. REVIEW OF SYSTEMS: Review of Systems Musculoskeletal: Positive for back pain. PHYSICAL EXAMINATION: Vitals: 10/07/24 1042 BP: (!) 156/98 Pulse: 79 Resp: 20 Temp: 36.6 C (97.9 F) SpO2: 97% Weight: 119.1 kg (262 lb 8 oz) Height: 162.6 cm (5' 4 ) Physical Exam Vitals and nursing note reviewed. Constitutional: Appearance: Normal appearance. HENT: Head: Normocephalic and atraumatic. Musculoskeletal: Comments: Significantly decreased ROM LSspine and painful, negative compression Skin: General: Skin is warm and dry. Neurological: General: No focal deficit present. Mental Status: She is alert. Psychiatric: Mood and Affect: Mood normal. ASSESSMENT/PLAN: Tin was seen today for back pain. Diagnoses and all orders for this visit: Midline low back pain without sciatica, unspecified chronicity Other orders - tiZANidine (ZANAFLEX) 4 mg tablet; Take 1 tablet (4 mg total) by mouth every 8 (eight) hours as needed for muscle spasms. - predniSONE (STERAPRED DS) 10 mg tablet pack; Take by mouth daily for 8 days. 6 tabs qd x 3 d then 1 less each day with food Follow-up: Discussed and advised continue current treatment and add prednisone and xanaflex (if not ) documented in this encounter [facility] 09-21-2024 Progress note Formatting of t his note is different from the original. [facility] Date: 09/21/2024 Tin Arizmendi is a 38 year old female presenting with the following history: HISTORY OF PRESENT ILLNESS: Tin Arizmendi is a 38 year old female with infertility Just completed SO #9, and we had extensive discussion about proceeding given the 5+ larger follicles seen on scan. See my note below. Since that phone call, if higher order multiples, they discussed as a couple and are open to selective reduction if deemed medically necessary/recommended 09/20/24 Phone Call I called and spoke to the patient. I reviewed the results from testing today. I provided my niki concerns about higher order multiples given the number of follicles present. However, putting in context her age, her 8 prior unsuccessful cycles, and other factors contributing to infertility, I do feel that it is reasonable for her to take on the risks of proceeding, provided that she is well informed before making the choice to proceed. Her absolute risk of multiples is likely ~4% if we extrapolate from IUI data, and relative risk if to be ~20%. We also discussed selective reduction in the unlikely event of higher order multiples. For now she would like to proceed with trigger but she will think about this discussion and will use contraception or abstinence should she change her mind and decide to avoid this cycle. Michel Joseph MD September 20, 2024 12:59 PM Obstetric History T0 L0 SAB0 IAB1 Ectopic0 Multiple0 Live Births0 MENSTRUAL HISTORY: Menarche Age: 14 Length of Cycle: 35-40 Irregular Days: 7 Menstrual Flow: Light Menstrual Symptoms: Cramping,Bloating,Breast Tenderness,No symptoms Patient's last menstrual period was 05/06/2024 (exact date). PAST MEDICAL HISTORY Diagnosis Date Abnormal Pap smear of cervix Complication of anesthesia vomiting after waking up Essential hypertension Hirsutism PCOS (polycystic ovarian syndrome) Sleep apnea 2020 PAST SURGICAL HISTORY Procedure Laterality Date COLPOSCOPY INDUCED DILATION AND CURETTAGE 10/30/2023 DILATION AND CURETTAGE, SUCTION MISSED , 1ST TRIMESTER LITHOTRIPSY XTRCORP SHOCK WAVE 04/14/2005 Lithotripsy NEPHROLITHOTOMY REMOVAL STAGE 1 2004 NEPHROLITHOTOMY REMOVAL STAGE 1 2014 REMOVAL GALLBLADDER 2017 FAMILY HISTORY Problem Relation Age of Onset Diabetes Mother other (pcos) Mother Diabetes Father Obstructive Sleep Apnea Maternal Grandfather Stroke Maternal Grandfather Ovarian cancer No Family History Cervical Cancer No Family History Breast Cancer No Family History Diabetes Maternal Grandfather Diabetes Paternal Grandmother Cancer Maternal Grandmother lung-smoker Cancer Paternal Grandfather stomach OCCUPATION/EXERCISE: Occupation: [employer] Exercise: stairs Partner Information Partner's Name: David Arizmendi Partner's : 1985 Partner's Partner's Ethnicity: NOT or Partner's Race: White 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 10,000 Units as directed. Inject 10,000 units for HCG trigger Follitropin Beta (FOLLISTIM AQ) 300 unit/0.36 mL Inject 200 Units subcutaneously once daily metFORMIN (GLUCOPHAGE) 500 mg tablet Take 1 tablet by mouth two times a day. dexAMETHasone (DECADRON) 0.5 mg tablet Take 1 tablet by mouth once daily. Norethin Misael-Eth Estrad-FE (MICROGESTIN FE) 1.5 mg-30 mcg (21)/75 mg (7) tablet Take 1 tablet by mouth once daily. ethynodiol diacetate-ethinyl estradiol 1 mg-35 mcg (ZOVIA E, 28,) 1-35 mg-mcg per tablet Start day 1 of full flow period. Take 1 pill by mouth daily at bedtime, active pills only. Skip or throw out placebo week. PNV no.95/ferrous fum/folic ac ( ORAL) Take by mouth. medroxyPROGESTERone (PROVERA) 10 mg tablet Take 1 tablet by mouth two times a day. (Patient not taking: Reported on 05/13/2024) letrozole (FEMARA) 2.5 mg tablet Take 4 tablets by mouth once daily. metFORMIN (GLUCOPHAGE) 850 mg tablet Take 1 tablet by mouth two times a day. Follitropin Ila (GONAL-F RFF REDI-JECT) 300/0.5 unit/mL pnij Inject 75 Units subcutaneously once daily. dexAMETHasone (DECADRON) 0.5 mg tablet Take 1 tablet by mouth once daily. metFORMIN (GLUCOPHAGE) 850 mg tablet Take 1 tablet by mouth twice daily with meals. spironolactone (ALDACTONE) 25 mg tablet Take 25 mg by mouth once daily. On hold for bupropion HCl (BUPROBAN ORAL) Take 150 mg by mouth once daily. No current facility-administered medications on file prior to visit. ALLERGIES: Amoxacillin [Amoxicillin] and Penicillins [facility] Date: 10/04/2020 Comments: not sure results Date: 10/04/2020 Comments: not sure results STD Results: Yes Comments: HPV 2019, colp Last Mammogram: none Blood Type: No results found for this basename: aborhd No results found for this basename: rubqnt,vzvg ASSESSMENT: Female infertility PCOS PLAN: Will have financial team contact her to discuss IVF costs and what other patients have done for financing They also have questions about payment timing for IUI If IVF is not an option, I am supportive of her to continue SO cycles with TI +/- IUI Will set her up with [facility] for IUI teach For SO, same protocol as the last cycle (SO#9) Last SA was March 2023, consider repeat by end 2024 if not doing IUI (IUI will be sufficient to spot check sperm counts) This is a virtual visit using Zoom. It required patient-provider interaction for the medical decision making as documented below. I have communicated my name and active licensure. The patient's identity and physical location were verified at the time of this visit. 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 I spent a total of 30 minutes on the date of the service which included preparing to see the patient, [id number] patient care, completing clinical documentation, counseling and educating the patient/family/caregiver, and ordering medications, tests, or procedures. Michel Joseph MD [facility] 09-21-2024 Consult note Formatting of th is note is different from the original. [facility] Date: 09/21/2024 Tin Arizmendi is a 38 year old female presenting with the following history: HISTORY OF PRESENT ILLNESS: Tin Arizmendi is a 38 year old female with infertility Just completed SO #9, and we had extensive discussion about proceeding given the 5+ larger follicles seen on scan. See my note below. Since that phone call, if higher order multiples, they discussed as a couple and are open to selective reduction if deemed medically necessary/recommended 09/20/24 Phone Call I called and spoke to the patient. I reviewed the results from testing today. I provided my niki concerns about higher order multiples given the number of follicles present. However, putting in context her age, her 8 prior unsuccessful cycles, and other factors contributing to infertility, I do feel that it is reasonable for her to take on the risks of proceeding, provided that she is well informed before making the choice to proceed. Her absolute risk of multiples is likely ~4% if we extrapolate from IUI data, and relative risk if to be ~20%. We also discussed selective reduction in the unlikely event of higher order multiples. For now she would like to proceed with trigger but she will think about this discussion and will use contraception or abstinence should she change her mind and decide to avoid this cycle. Michel Joseph MD September 20, 2024 12:59 PM Obstetric History T0 L0 SAB0 IAB1 Ectopic0 Multiple0 Live Births0 MENSTRUAL HISTORY: Menarche Age: 14 Length of Cycle: 35-40 Irregular Days: 7 Menstrual Flow: Light Menstrual Symptoms: Cramping,Bloating,Breast Tenderness,No symptoms Patient's last menstrual period was 05/06/2024 (exact date). PAST MEDICAL HISTORY Diagnosis Date Abnormal Pap smear of cervix Complication of anesthesia vomiting after waking up Essential hypertension Hirsutism PCOS (polycystic ovarian syndrome) Sleep apnea 2020 PAST SURGICAL HISTORY Procedure Laterality Date COLPOSCOPY INDUCED DILATION AND CURETTAGE 10/30/2023 DILATION AND CURETTAGE, SUCTION MISSED , 1ST TRIMESTER LITHOTRIPSY XTRCORP SHOCK WAVE 04/14/2005 Lithotripsy NEPHROLITHOTOMY REMOVAL STAGE 1 2004 NEPHROLITHOTOMY REMOVAL STAGE 1 2014 REMOVAL GALLBLADDER 2017 FAMILY HISTORY Problem Relation Age of Onset Diabetes Mother other (pcos) Mother Diabetes Father Obstructive Sleep Apnea Maternal Grandfather Stroke Maternal Grandfather Ovarian cancer No Family History Cervical Cancer No Family History Breast Cancer No Family History Diabetes Maternal Grandfather Diabetes Paternal Grandmother Cancer Maternal Grandmother lung-smoker Cancer Paternal Grandfather stomach OCCUPATION/EXERCISE: Occupation: [employer] Exercise: stairs Partner Information Partner's Name: David Arizmendi Partner's : 1985 Partner's Partner's Ethnicity: NOT or Partner's Race: White 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 10,000 Units as directed. Inject 10,000 units for HCG trigger Follitropin Beta (FOLLISTIM AQ) 300 unit/0.36 mL Inject 200 Units subcutaneously once daily metFORMIN (GLUCOPHAGE) 500 mg tablet Take 1 tablet by mouth two times a day. dexAMETHasone (DECADRON) 0.5 mg tablet Take 1 tablet by mouth once daily. Norethin Misael-Eth Estrad-FE (MICROGESTIN FE) 1.5 mg-30 mcg (21)/75 mg (7) tablet Take 1 tablet by mouth once daily. ethynodiol diacetate-ethinyl estradiol 1 mg-35 mcg (ZOVIA , ,) 1-35 mg-mcg per tablet Start day 1 of full flow period. Take 1 pill by mouth daily at bedtime, active pills only. Skip or throw out placebo week. PNV no.95/ferrous fum/folic ac ( ORAL) Take by mouth. medroxyPROGESTERone (PROVERA) 10 mg tablet Take 1 tablet by mouth two times a day. (Patient not taking: Reported on 05/13/2024) letrozole (FEMARA) 2.5 mg tablet Take 4 tablets by mouth once daily. metFORMIN (GLUCOPHAGE) 850 mg tablet Take 1 tablet by mouth two times a day. Follitropin Ila (GONAL-F RFF REDI-JECT) 300/0.5 unit/mL pnij Inject 75 Units subcutaneously once daily. dexAMETHasone (DECADRON) 0.5 mg tablet Take 1 tablet by mouth once daily. metFORMIN (GLUCOPHAGE) 850 mg tablet Take 1 tablet by mouth twice daily with meals. spironolactone (ALDACTONE) 25 mg tablet Take 25 mg by mouth once daily. On hold for bupropion HCl (BUPROBAN ORAL) Take 150 mg by mouth once daily. No current facility-administered medications on file prior to visit. ALLERGIES: Amoxacillin [Amoxicillin] and Penicillins [facility] Date: 10/04/2020 Comments: not sure results Date: 10/04/2020 Comments: not sure results STD Results: Yes Comments: HPV 2019, colp Last Mammogram: none Blood Type: No results found for this basename: aborhd No results found for this basename: rubqnt,vzvg ASSESSMENT: Female infertility PCOS PLAN: Will have financial team contact her to discuss IVF costs and what other patients have done for financing They also have questions about payment timing for IUI If IVF is not an option, I am supportive of her to continue SO cycles with TI +/- IUI Will set her up with [facility] for IUI teach For SO, same protocol as the last cycle (SO#9) Last SA was March 2023, consider repeat by end 2024 if not doing IUI (IUI will be sufficient to spot check sperm counts) This is a virtual visit using Zoom. It required patient-provider interaction for the medical decision making as documented below. I have communicated my name and active licensure. The patient's identity and physical location were verified at the time of this visit. 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 I spent a total of 30 minutes on the date of the service which included preparing to see the patient, [id number] patient care, completing clinical documentation, counseling and educating the patient/family/caregiver, and ordering medications, tests, or procedures. Michel Joseph MD documented in this encounter [facility] 09-21-2024 Plan of care note Trigger shot 09/20 with plan for timed intercourse 09/21 and 09/22. Patient with questions regarding selective reduction, would be amenable if necessary in the case of higher order multiples. Risk of multiples reviewed with patient. Regarding next steps, patient reports that IUI and IVF not yet in her budget if she does not get following this next trigger. Discussed cost of IUI. Will also discuss with billing team for financial assistance and other resources. Patient reports she will consider IUI. Also reviewed recommendation for repeat semen analysis for patient's partner if any changes to partner's health. Patient states that partner had another semen analysis done at [facility] in 2015 in addition to another one here in 2022. She reports they were normal, however she is uncertain whether she has access to these records and she will try to obtain them. [facility] Work Phone: 09-21-2024 Miscellaneous Notes Trigger shot 09/20 with plan for timed intercourse 09/21 and 09/22. Patient with questions regarding selective reduction, would be amenable if necessary in the case of higher order multiples. Risk of multiples reviewed with patient. Regarding next steps, patient reports that IUI and IVF not yet in her budget if she does not get following this next trigger. Discussed cost of IUI. Will also discuss with billing team for financial assistance and other resources. Patient reports she will consider IUI. Also reviewed recommendation for repeat semen analysis for patient's partner if any changes to partner's health. Patient states that partner had another semen analysis done at [facility] in 2015 in addition to another one here in 2022. She reports they were normal, however she is uncertain whether she has access to these records and she will try to obtain them. documented in this encounter [facility] 09-20-2024 Note HNO ID: [id number] Author: MICHEL JOSEPH MD Service: ? Author Type: Physician Type: Progress Notes Filed: 09/20/2024 15:17 Note Text: I called and spoke to the patient. I reviewed the results from testing today. I provided my niki concerns about higher order multiples given the number of follicles present. However, putting in context her age, her 8 prior unsuccessful cycles, and other factors contributing to infertility, I do feel that it is reasonable for her to take on the risks of proceeding, provided that she is well informed before making the choice to proceed. Her absolute risk of multiples is likely ~4% if we extrapolate from IUI data, and relative risk if to be ~20%. We also discussed selective reduction in the unlikely event of higher order multiples. For now she would like to proceed with trigger but she will think about this discussion and will use contraception or abstinence should she change her mind and decide to avoid this cycle. Michel Joseph MD September 20, 2024 12:59 PM [facility] 09-20-2024 History of Present illness Narrative I called and spoke to the patient. I reviewed the results from testing today. I provided my niki concerns about higher order multiples given the number of follicles present. However, putting in context her age, her 8 prior unsuccessful cycles, and other factors contributing to infertility, I do feel that it is reasonable for her to take on the risks of proceeding, provided that she is well informed before making the choice to proceed. Her absolute risk of multiples is likely ~4% if we extrapolate from IUI data, and relative risk if to be ~20%. We also discussed selective reduction in the unlikely event of higher order multiples. For now she would like to proceed with trigger but she will think about this discussion and will use contraception or abstinence should she change her mind and decide to avoid this cycle. Michel Joseph MD September 20, 2024 12:59 PM Follicular Ultrasound Monitoring Visit Patient here for follicle monitoring and/or endometrial assessment, via ultrasound, and lab testing. See imaging documentation and LOUISA cycle flow sheet for final report and plan. Ultrasound images assessed for follicular growth and maturation as well as endometrial development. Hormone lab values assessed. Treatment plan discussed with Fertility Team and plan provided to patient via a Fertility member services coordinator. María Elena Butt MD The patient is here today for follicular ultrasound and blood work. The patient reports no problems or complaints. Ultrasound and blood will be reviewed by the physician, the flow sheet will be updated and instructions will be communicated to the patient. Mary Ann Kirkland RN RN called patient, name and verified. Plan given for SO cycle per physician, see flowsheet for details. [employer] message sent. Medications reviewed and verified, instructions given. Patient denies any questions or concerns. Message sent to scheduling pool for next appt. Mary Ann Kirkland RN September 20, 2024 3:16 PM documented in this encounter [facility] 09-20-2024 Note HNO ID: [id number] Author: ZHEN SEARS MD Service: ? Author Type: Physician Type: Progress Notes Filed: 09/20/2024 15:17 Note Text: Follicular Ultrasound Monitoring Visit Patient here for follicle monitoring and/or endometrial assessment, via ultrasound, and lab testing. See imaging documentation and LOUISA cycle flow sheet for final report and plan. Ultrasound images assessed for follicular growth and maturation as well as endometrial development. Hormone lab values assessed. Treatment plan discussed with Fertility Team and plan provided to patient via a Fertility member services coordinator. María Elena Butt MD [facility] 09-20-2024 Note HNO ID: [id number] Author: MARY ANN KIRKLAND RN Service: ? Author Type: Registered Nurse Type: Progress Notes Filed: 09/20/2024 15:17 Note Text: The patient is here today for follicular ultrasound and blood work. The patient reports no problems or complaints. Ultrasound and blood will be reviewed by the physician, the flow sheet will be updated and instructions will be communicated to the patient. Mary Ann Kirkland RN RN called patient, name and verified. Plan given for SO cycle per physician, see flowsheet for details. MyChart message sent. Medications reviewed and verified, instructions given. Patient denies any questions or concerns. Message sent to scheduling pool for next appt. Mary Ann Kirkland RN September 20, 2024 3:16 PM [facility] 09-19-2024 Note HNO ID: [id number] Author: MARY ANN KIRKLAND RN Service: ? Author Type: Registered Nurse Type: Progress Notes Filed: 09/19/2024 14:22 Note Text: The patient is here today for follicular ultrasound and blood work. The patient reports no problems or complaints. Ultrasound and blood will be reviewed by the physician, the flow sheet will be updated and instructions will be communicated to the patient. Mary Ann Kirkland RN Unable to reach patient by phone, sent [employer] message with instructions. Location: [place] Visit type: Monitoring, SO us/e2 Date: 09/20 @ 920am Mary Ann Kirkland RN September 19, 2024 2:21 PM [facility] 09-19-2024 History of Present illness Narrative The patient is here today for follicular ultrasound and blood work. The patient reports no problems or complaints. Ultrasound and blood will be reviewed by the physician, the flow sheet will be updated and instructions will be communicated to the patient. Mary Ann Kirkland RN Unable to reach patient by phone, sent [employer] message with instructions. Location: [place] Visit type: Monitoring, SO us/e2 Date: 09/20 @ 920am Mary Ann Kirkland RN September 19, 2024 2:21 PM documented in this encounter [facility] 09-15-2024 Note HNO ID: [id number] Author: MARY ANN KIRKLAND RN Service: ? Author Type: Registered Nurse Type: Progress Notes Filed: 09/15/2024 14:39 Note Text: The patient is here today for follicular ultrasound and blood work. The patient reports no problems or complaints. Ultrasound and blood will be reviewed by the physician, the flow sheet will be updated and instructions will be communicated to the patient. Mary Ann Kirkland RN RN called patient, name and verified. Plan given for SO cycle per physician, see flowsheet for details. MyChart message sent. Medications reviewed and verified, instructions given. Patient denies any questions or concerns. Message sent to scheduling pool for next appt. Mary Ann Kirkland RN September 15, 2024 2:09 PM [facility] 09-15-2024 History of Present illness Narrative The patient is here today for follicular ultrasound and blood work. The patient reports no problems or complaints. Ultrasound and blood will be reviewed by the physician, the flow sheet will be updated and instructions will be communicated to the patient. Mary Ann Kirkland RN RN called patient, name and verified. Plan given for SO cycle per physician, see flowsheet for details. Multiplicomt message sent. Medications reviewed and verified, instructions given. Patient denies any questions or concerns. Message sent to scheduling pool for next appt. Mary Ann Kirkland RN September 15, 2024 2:09 PM documented in this encounter [facility] 09-12-2024 Note HNO ID: [id number] Author: MARY ANN KIRKLAND RN Service: ? Author Type: Registered Nurse Type: Progress Notes Filed: 09/12/2024 16:13 Note Text: RN called patient, name and verified. Plan given for SO cycle per physician, see flowsheet for details. [employer] message sent. Medications reviewed and verified, instructions given. Patient denies any questions or concerns. Message sent to scheduling pool for next appt. Cancelled P4 and LH labs. Location: [facility] Visit type: SO us/e2 Date: 09/15/24 @ 0700 Mary Ann Kirkland RN September 12, 2024 4:12 PM [facility] 09-12-2024 History of Present illness Narrative RN called patient, name and verified. Plan given for SO cycle per physician, see flowsheet for details. [employer] message sent. Medications reviewed and verified, instructions given. Patient denies any questions or concerns. Message sent to scheduling pool for next appt. Cancelled P4 and LH labs. Location: [place] Visit type: SO us/e2 Date: 09/15/24 @ 0700 Mary Ann Kirkland RN September 12, 2024 4:12 PM The patient is here today for follicular ultrasound and blood work. The patient reports no problems or complaints. Ultrasound and blood will be reviewed by the physician, the flow sheet will be updated and instructions will be communicated to the patient. Nam Arias RN documented in this encounter [facility] 09-12-2024 Note HNO ID: [id number] Author: NAM ARIAS RN Service: ? Author Type: Registered Nurse Type: Progress Notes Filed: 09/12/2024 16:13 Note Text: The patient is here today for follicular ultrasound and blood work. The patient reports no problems or complaints. Ultrasound and blood will be reviewed by the physician, the flow sheet will be updated and instructions will be communicated to the patient. Nam Arias RN [facility] 09-09-2024 Telephone encounter Note Pt calling to schedule baseline for SO cycle. Ok to start per EGR. Baseline scheduled 09/12 at 7 [place]. Ivy Gardner RN September 09, 2024 9:03 AM [facility] 09-09-2024 Miscellaneous Notes Pt calling to schedule baseline for SO cycle. Ok to start per EGR. Baseline scheduled 09/12 at 7 [place]. Ivy Gardner RN September 09, 2024 9:03 AM OOT til Thursday documented in this encounter [facility] 09-09-2024 Telephone encounter Note OOT til Thursday [facility] 08-17-2024 Note HNO ID: [id number] Author: NAM ARIAS RN Service: ? Author Type: Registered Nurse Type: Progress Notes Filed: 08/22/2024 11:44 Note Text: The patient is here today for follicular ultrasound and blood work. The patient reports no problems or complaints. Ultrasound and blood will be reviewed by the physician, the flow sheet will be updated and instructions will be communicated to the patient. Nam Arias RN Called patient with plan. No answer. LVM. Mychart sent. Nam Arias RN August 17, 2024 1:57 PM [facility] 08-17-2024 History of Present illness Narrative The patient is here today for follicular ultrasound and blood work. The patient reports no problems or complaints. Ultrasound and blood will be reviewed by the physician, the flow sheet will be updated and instructions will be communicated to the patient. Nam Arias RN Called patient with plan. No answer. LVM. Mychart sent. Nam Arias RN August 17, 2024 1:57 PM documented in this encounter [facility] 08-15-2024 Note HNO ID: [id number] Author: NAM ARIAS RN Service: ? Author Type: Registered Nurse Type: Progress Notes Filed: 08/15/2024 16:46 Note Text: The patient is here today for follicular ultrasound and blood work. The patient reports no problems or complaints. Ultrasound and blood will be reviewed by the physician, the flow sheet will be updated and instructions will be communicated to the patient. Nam Arias RN RN called patient, name and verified. Plan given for IVF cycle per physician, see flowsheet for details. MyChart message sent. Medications reviewed and verified, instructions given. Patient denies any questions or concerns. Message sent to scheduling pool for next appt. aNm Arias RN August 15, 2024 1:39 PM [facility] 08-15-2024 History of Present illness Narrative The patient is here today for follicular ultrasound and blood work. The patient reports no problems or complaints. Ultrasound and blood will be reviewed by the physician, the flow sheet will be updated and instructions will be communicated to the patient. Nam Arias RN RN called patient, name and verified. Plan given for IVF cycle per physician, see flowsheet for details. MyChart message sent. Medications reviewed and verified, instructions given. Patient denies any questions or concerns. Message sent to scheduling pool for next appt. Nam Arias RN August 15, 2024 1:39 PM documented in this encounter [facility] 08-10-2024 Note HNO ID: [id number] Author: NILTON ZHANG RN Service: ? Author Type: Registered Nurse Type: Progress Notes Filed: 08/10/2024 13:19 Note Text: RN called patient, name and verified. Plan given for superov cycle per physician, see flowsheet for details. MyChart message sent. Medications reviewed and verified, instructions given. Patient denies any questions or concerns. Message sent to scheduling pool for next appt. Nilton Zhang RN August 10, 2024 1:19 PM [facility] 08-10-2024 Note HNO ID: [id number] Author: NILTON ZHANG RN Service: ? Author Type: Registered Nurse Type: Progress Notes Filed: 08/10/2024 08:02 Note Text: The patient is here today for follicular ultrasound and blood work. The patient reports no problems or complaints. Ultrasound and blood will be reviewed by the physician, the flow sheet will be updated and instructions will be communicated to the patient. Nilton Zhang RN August 10, 2024 8:02 AM [facility] 08-10-2024 History of Present illness Narrative The patient is here today for follicular ultrasound and blood work. The patient reports no problems or complaints. Ultrasound and blood will be reviewed by the physician, the flow sheet will be updated and instructions will be communicated to the patient. Nilton Zhang RN August 10, 2024 8:02 AM documented in this encounter [facility] 08-08-2024 Telephone encounter Note Patient calling with CD3 to baseline for SO #8 Unable to reach patient by phone, I will call back to schedule for tomorrow. Mary Ann Kirkland RN August 08, 2024 12:06 PM Patient called back and wanted scheduled for Thursday. FSH and HCG ordered to MDR unable to reach, left message that I scheduled her for 09/21 @ 130PM with EGR virtual for follow up Mary Ann Kirkland RN August 09, 2024 12:48 PM . [facility] 08-08-2024 Miscellaneous Notes Patient calling with CD3 to baseline for SO #8 Unable to reach patient by phone, I will call back to schedule for tomorrow. Mary Ann Kirkland RN August 08, 2024 12:06 PM Patient called back and wanted scheduled for Thursday. FSH and HCG ordered to MDR unable to reach, left message that I scheduled her for 09/21 @ 130PM with EGR virtual for follow up Mary Ann Kirkland RN August 09, 2024 12:48 PM . documented in this encounter [facility] 07-18-2024 Note HNO ID: [id number] Author: NAM ARIAS RN Service: ? Author Type: Registered Nurse Type: Progress Notes Filed: 07/18/2024 16:34 Note Text: The patient is here today for follicular ultrasound and blood work. The patient reports no problems or complaints. Ultrasound and blood will be reviewed by the physician, the flow sheet will be updated and instructions will be communicated to the patient. Nam Arias RN RN called patient, name and verified. Plan given for IVF cycle per physician, see flowsheet for details. MyChart message sent. Medications reviewed and verified, instructions given. Patient denies any questions or concerns. Message sent to scheduling pool for next appt. Nam Arias RN July 18, 2024 1:25 PM [facility] 07-18-2024 History of Present illness Narrative The patient is here today for follicular ultrasound and blood work. The patient reports no problems or complaints. Ultrasound and blood will be reviewed by the physician, the flow sheet will be updated and instructions will be communicated to the patient. Nam Arias RN RN called patient, name and verified. Plan given for IVF cycle per physician, see flowsheet for details. MyChart message sent. Medications reviewed and verified, instructions given. Patient denies any questions or concerns. Message sent to scheduling pool for next appt. Nam Arias RN July 18, 2024 1:25 PM documented in this encounter [facility] 07-14-2024 Note HNO ID: [id number] Author: GEE DEVRIES RN Service: ? Author Type: Registered Nurse Type: Progress Notes Filed: 07/14/2024 13:56 Note Text: RN called patient, name and verified. Plan given for IVF cycle per physician, see flowsheet for details. [employer] message sent. Medications reviewed and verified, instructions given. Patient denies any questions or concerns. Message sent to scheduling pool for next appt. Please schedule the patient for the following- Location: [place] Visit type: monitoring us / e2 / Date: 07/18 @7am Gee Devries RN July 14, 2024 1:50 PM [facility] 07-14-2024 History of Present illness Narrative RN called patient, name and verified. Plan given for IVF cycle per physician, see flowsheet for details. [employer] message sent. Medications reviewed and verified, instructions given. Patient denies any questions or concerns. Message sent to scheduling pool for next appt. Please schedule the patient for the following- Location: [place] Visit type: monitoring us / e2 / Date: 07/18 @7am Gee Devries RN July 14, 2024 1:50 PM The patient is here today for follicular ultrasound and blood work. The patient reports no problems or complaints. Ultrasound and blood will be reviewed by the physician, the flow sheet will be updated and instructions will be communicated to the patient. Ivy Gardner RN documented in this encounter [facility] 07-14-2024 Note HNO ID: [id number] Author: IVY GARDNER RN Service: ? Author Type: Registered Nurse Type: Progress Notes Filed: 07/14/2024 12:36 Note Text: The patient is here today for follicular ultrasound and blood work. The patient reports no problems or complaints. Ultrasound and blood will be reviewed by the physician, the flow sheet will be updated and instructions will be communicated to the patient. Ivy Gardner RN [facility] 07-07-2024 Note HNO ID: [id number] Author: NILTON ZHANG RN Service: ? Author Type: Registered Nurse Type: Progress Notes Filed: 07/07/2024 13:31 Note Text: RN called patient, name and verified. Plan given for IVF cycle per physician, see flowsheet for details. [employer] message sent. Medications reviewed and verified, instructions given. Patient denies any questions or concerns. Message sent to scheduling pool for next appt. Nilton Zhang RN July 07, 2024 1:31 PM [facility] 07-07-2024 History of Present illness Narrative RN called patient, name and verified. Plan given for IVF cycle per physician, see flowsheet for details. [employer] message sent. Medications reviewed and verified, instructions given. Patient denies any questions or concerns. Message sent to scheduling pool for next appt. Nilton Zhang RN July 07, 2024 1:31 PM The patient is here today for follicular ultrasound and blood work. The patient reports no problems or complaints. Ultrasound and blood will be reviewed by the physician, the flow sheet will be updated and instructions will be communicated to the patient. Nilton Zhang RN July 07, 2024 7:34 AM documented in this encounter [facility] 07-07-2024 Note HNO ID: [id number] Author: NILTON ZHANG RN Service: ? Author Type: Registered Nurse Type: Progress Notes Filed: 07/07/2024 07:39 Note Text: The patient is here today for follicular ultrasound and blood work. The patient reports no problems or complaints. Ultrasound and blood will be reviewed by the physician, the flow sheet will be updated and instructions will be communicated to the patient. Nilton Zhang RN July 07, 2024 7:34 AM [facility] 07-06-2024 History of Present illness Narrative Images from the original note were not included. [id number] [facility] [id number] SUBJECTIVE: Patient ID: Tin Arizmendi is a 38 y.o. female. 38 yo WF with 3 days sore throat and congestion The following portions of the patient's history were reviewed and updated as appropriate: allergies, current medications, past family history, past medical history, past social history, past surgical history and problem list. REVIEW OF SYSTEMS: Review of Systems HENT: Positive for congestion and sore throat. Respiratory: Negative. Cardiovascular: Negative. Gastrointestinal: Negative. Genitourinary: Negative. PHYSICAL EXAMINATION: Vitals: 07/06/24 0940 BP: 144/90 BP Site: Left Arm BP Postition: Sitting BP CUFF SIZE: M (9-13 inches) Pulse: 88 Resp: 16 Temp: 36.5 C (97.7 F) TempSrc: Tympanic Weight: 117.5 kg (259 lb) Height: 162.6 cm (5' 4 ) Physical Exam Vitals and nursing note reviewed. Constitutional: Appearance: Normal appearance. HENT: Head: Normocephalic and atraumatic. Nose: Congestion and rhinorrhea present. Cardiovascular: Rate and Rhythm: Normal rate and regular rhythm. Pulses: Normal pulses. Heart sounds: Normal heart sounds. Pulmonary: Effort: Pulmonary effort is normal. Breath sounds: Normal breath sounds. Neurological: General: No focal deficit present. Mental Status: She is alert. Psychiatric: Mood and Affect: Mood normal. Behavior: Behavior normal. ASSESSMENT/PLAN: Tin was seen today for cough, headache and sore throat. Diagnoses and all orders for this visit: Other acute sinusitis, recurrence not specified Other orders - azithromycin (ZITHROMAX) 250 mg tablet; Take 2 tablets the first day, then 1 tablet daily for 4 days. Follow-up: Zpak Off work 3 days documented in this encounter [facility] 07-04-2024 Telephone encounter Note metformin 500mg twice daily and the decadron 0.5mg tablet daily now. He is also agreeable to letrozole with the next cycle so we can order that then. Above was discussed with nursing last cycle SO #7 episode created. LET 10 mg CD 3-7 Metformin 500mg twice daily DEX 0.5 mg CD3-OPK+(trigger night) FSH 75 daily (start CD 6) through trigger injection TIC SC sent to [facility] to review plan discussed last cycle, listed above Sent to [employer]. Location: [place] Visit type: SO baseline Date: 07/07/24 @ 0730 Mary Ann Kirkland RN July 04, 2024 2:18 PM [facility] 07-04-2024 Miscellaneous Notes metformin 500mg twice daily and the decadron 0.5mg tablet daily now. He is also agreeable to letrozole with the next cycle so we can order that then. Above was discussed with nursing last cycle SO #7 episode created. LET 10 mg CD 3-7 Metformin 500mg twice daily DEX 0.5 mg CD3-OPK+(trigger night) FSH 75 daily (start CD 6) through trigger injection TIC SC sent to [facility] to review plan discussed last cycle, listed above Sent to [employer]. Location: [place] Visit type: SO baseline Date: 07/07/24 @ 0730 Mary Ann Kirkland RN July 04, 2024 2:18 PM Super Ovulation Patient started period Thursday and following up on next steps documented in this encounter [facility] 07-04-2024 Telephone encounter Note Super Ovulation Patient started period Thursday and following up on next steps [facility] 06-15-2024 Note HNO ID: [id number] Author: NILTON ZHANG RN Service: ? Author Type: Registered Nurse Type: Progress Notes Filed: 06/15/2024 13:02 Note Text: RN called patient, name and verified. Plan given for IVF cycle per physician, see flowsheet for details. [employer] message sent. Medications reviewed and verified, instructions given. Patient denies any questions or concerns. Message sent to scheduling pool for next appt. Nilton Zhang RN June 15, 2024 1:02 PM [facility] 06-15-2024 History of Present illness Narrative RN called patient, name and verified. Plan given for IVF cycle per physician, see flowsheet for details. MyChart message sent. Medications reviewed and verified, instructions given. Patient denies any questions or concerns. Message sent to scheduling pool for next appt. Nilton Zhang RN June 15, 2024 1:02 PM The patient is here today for follicular ultrasound and blood work. The patient reports no problems or complaints. Ultrasound and blood will be reviewed by the physician, the flow sheet will be updated and instructions will be communicated to the patient. Nilton Zhang RN June 15, 2024 8:21 AM documented in this encounter [facility] 06-15-2024 Note HNO ID: [id number] Author: NILTON ZHANG RN Service: ? Author Type: Registered Nurse Type: Progress Notes Filed: 06/15/2024 08:21 Note Text: The patient is here today for follicular ultrasound and blood work. The patient reports no problems or complaints. Ultrasound and blood will be reviewed by the physician, the flow sheet will be updated and instructions will be communicated to the patient. Nilton Zhang RN June 15, 2024 8:21 AM [facility] 06-13-2024 Note HNO ID: [id number] Author: MARY ANN KIRKLAND RN Service: ? Author Type: Registered Nurse Type: Progress Notes Filed: 06/13/2024 13:33 Note Text: The patient is here today for follicular ultrasound and blood work. The patient reports no problems or complaints. Ultrasound and blood will be reviewed by the physician, the flow sheet will be updated and instructions will be communicated to the patient. Mary Ann Kirkland RN RN called patient, name and verified. Plan given for IVF cycle per physician, see flowsheet for details. [employer] message sent. Medications reviewed and verified, instructions given. Patient denies any questions or concerns. Message sent to scheduling pool for next appt. Location: [place] Visit type: IVF us/e2/p4/lh Date: 06/15 Mary Ann Kirkland RN June 13, 2024 12:44 PM [facility] 06-13-2024 History of Present illness Narrative The patient is here today for follicular ultrasound and blood work. The patient reports no problems or complaints. Ultrasound and blood will be reviewed by the physician, the flow sheet will be updated and instructions will be communicated to the patient. Mary Ann Kirkland RN RN called patient, name and verified. Plan given for IVF cycle per physician, see flowsheet for details. [employer] message sent. Medications reviewed and verified, instructions given. Patient denies any questions or concerns. Message sent to scheduling pool for next appt. Location: [place] Visit type: IVF us/e2/p4/lh Date: 06/15 Mary Ann Kirkland RN June 13, 2024 12:44 PM documented in this encounter [facility] 06-10-2024 Note Addended by: MICHEL MONTOYA on: 06/10/2024 01:33 PM Modules accepted: Orders [facility] 06-10-2024 Miscellaneous Notes Addended by: MICHEL JOSEPH on: 06/10/2024 01:33 PM Modules accepted: Orders Addended by: NILTON ZHANG on: 06/10/2024 01:29 PM Modules accepted: Orders documented in this encounter [facility] 06-10-2024 Note Addended by: NILTON ZHANG on: 06/10/2024 01:29 PM Modules accepted: Orders [facility] 06-10-2024 Note HNO ID: [id number] Author: NILTON ZHANG RN Service: ? Author Type: Registered Nurse Type: Progress Notes Filed: 06/10/2024 13:29 Note Text: Message sent to Dr. Joseph regarding patient's request to be on same medications as she was on with her superov #5, dexamethasone and metformin. Dr. Joseph agreed. Medications pended and sent to Dr. Joseph to file. Mychart sent to patient. Nilton Zhang RN June 10, 2024 1:25 PM [facility] 06-10-2024 History of Present illness Narrative Message sent to Dr. Joseph regarding patient's request to be on same medications as she was on with her superov #5, dexamethasone and metformin. Dr. Joseph agreed. Medications pended and sent to Dr. Joseph to file. Mychart sent to patient. Nilton Zhang RN June 10, 2024 1:25 PM RN called patient, name and verified. Plan given for IVF cycle per physician, see flowsheet for details. [employer] message sent. Medications reviewed and verified, instructions given. Patient denies any questions or concerns. Message sent to scheduling pool for next appt. Nilton Zhang RN June 10, 2024 12:58 PM LOUISA Attending Physician Note: Ultrasound and lab results reviewed. Based on review of ultrasound and lab results, medication dose and follow up date plans provided. See cycle flowsheet for dosing details. Tiffany Gonzalez MD, CROW The patient is here today for follicular ultrasound and blood work. The patient reports no problems or complaints. Ultrasound and blood will be reviewed by the physician, the flow sheet will be updated and instructions will be communicated to the patient. Gee Devries RN June 10, 2024 7:09 AM documented in this encounter [facility] 06-10-2024 Note HNO ID: [id number] Author: NILTON ZHANG RN Service: ? Author Type: Registered Nurse Type: Progress Notes Filed: 06/10/2024 12:58 Note Text: RN called patient, name and verified. Plan given for IVF cycle per physician, see flowsheet for details. [employer] message sent. Medications reviewed and verified, instructions given. Patient denies any questions or concerns. Message sent to scheduling pool for next appt. Nilton Zhang RN June 10, 2024 12:58 PM [facility] 06-10-2024 Note HNO ID: [id number] Author: TIFFANY GONZALEZ MD Service: ? Author Type: Physician Type: Progress Notes Filed: 06/10/2024 12:58 Note Text: LOUISA Attending Physician Note: Ultrasound and lab results reviewed. Based on review of ultrasound and lab results, medication dose and follow up date plans provided. See cycle flowsheet for dosing details. Tiffany Gonzalez MD, CROW [facility] 06-10-2024 Note HNO ID: [id number] Author: GEE DEVRIES RN Service: ? Author Type: Registered Nurse Type: Progress Notes Filed: 06/10/2024 07:13 Note Text: The patient is here today for follicular ultrasound and blood work. The patient reports no problems or complaints. Ultrasound and blood will be reviewed by the physician, the flow sheet will be updated and instructions will be communicated to the patient. Gee Devries RN June 10, 2024 7:09 AM [facility] 06-06-2024 Note HNO ID: [id number] Author: MARY ANN KIRKLAND RN Service: ? Author Type: Registered Nurse Type: Progress Notes Filed: 06/06/2024 15:03 Note Text: RN called patient, name and verified. Plan given for IVF cycle per physician, see flowsheet for details. MyChart message sent. Medications reviewed and verified, instructions given. Patient denies any questions or concerns. Message sent to scheduling pool for next appt. Location: [place] Visit type: so us/e2 Date: 06/10 @ 7am Mary Ann Kirkland RN June 06, 2024 3:02 PM [facility] 06-06-2024 History of Present illness Narrative RN called patient, name and verified. Plan given for IVF cycle per physician, see flowsheet for details. MyChart message sent. Medications reviewed and verified, instructions given. Patient denies any questions or concerns. Message sent to scheduling pool for next appt. Location: [place] Visit type: so us/e2 Date: 06/10 @ 7am Mary Ann Kirkland RN June 06, 2024 3:02 PM The patient is here today for follicular ultrasound and blood work. The patient reports no problems or complaints. Ultrasound and blood will be reviewed by the physician, the flow sheet will be updated and instructions will be communicated to the patient. Gee Devries RN documented in this encounter [facility] 06-06-2024 Note HNO ID: [id number] Author: GEE DEVRIES RN Service: ? Author Type: Registered Nurse Type: Progress Notes Filed: 06/06/2024 15:03 Note Text: The patient is here today for follicular ultrasound and blood work. The patient reports no problems or complaints. Ultrasound and blood will be reviewed by the physician, the flow sheet will be updated and instructions will be communicated to the patient. Gee Devries RN [facility] 06-03-2024 Note HNO ID: [id number] Author: NILTON ZHANG RN Service: ? Author Type: Registered Nurse Type: Progress Notes Filed: 06/03/2024 12:50 Note Text: RN called patient, name and verified. Plan given for IVF cycle per physician, see flowsheet for details. [employer] message sent. Medications reviewed and verified, instructions given. Patient denies any questions or concerns. Message sent to scheduling pool for next appt. Nilton Zhang RN June 03, 2024 12:50 PM [facility] 06-03-2024 History of Present illness Narrative RN called patient, name and verified. Plan given for IVF cycle per physician, see flowsheet for details. [employer] message sent. Medications reviewed and verified, instructions given. Patient denies any questions or concerns. Message sent to scheduling pool for next appt. Nilton Zhang RN June 03, 2024 12:50 PM The patient is here today for follicular ultrasound and blood work. The patient reports no problems or complaints. Ultrasound and blood will be reviewed by the physician, the flow sheet will be updated and instructions will be communicated to the patient. Nilton Zhang RN June 03, 2024 7:03 AM documented in this encounter [facility] 06-03-2024 Note HNO ID: [id number] Author: NILTON ZHANG RN Service: ? Author Type: Registered Nurse Type: Progress Notes Filed: 06/03/2024 07:16 Note Text: The patient is here today for follicular ultrasound and blood work. The patient reports no problems or complaints. Ultrasound and blood will be reviewed by the physician, the flow sheet will be updated and instructions will be communicated to the patient. Nilton Zhang RN June 03, 2024 7:03 AM [facility] 05-27-2024 Note HNO ID: [id number] Author: NILTON ZHANG RN Service: ? Author Type: Registered Nurse Type: Progress Notes Filed: 05/27/2024 13:06 Note Text: RN called patient, name and verified. Plan given for ISuper Ov cycle per physician, see flowsheet for details. [employer] message sent. Medications reviewed and verified, instructions given. Patient denies any questions or concerns. Message sent to scheduling pool for next appt. Nilton Zhang RN May 27, 2024 1:06 PM [facility] 05-27-2024 History of Present illness Narrative RN called patient, name and verified. Plan given for ISuper Ov cycle per physician, see flowsheet for details. [employer] message sent. Medications reviewed and verified, instructions given. Patient denies any questions or concerns. Message sent to scheduling pool for next appt. Nilton Zhang RN May 27, 2024 1:06 PM LOUISA Attending Physician Note: Ultrasound and lab results reviewed. Based on review of ultrasound and lab results, medication dose and follow up date plans provided. See cycle flowsheet for dosing details. Tiffany Gonzalez MD, CROW The patient is here today for follicular ultrasound and blood work. The patient reports no problems or complaints. Ultrasound and blood will be reviewed by the physician, the flow sheet will be updated and instructions will be communicated to the patient. Nilton Zhang RN May 27, 2024 7:02 AM documented in this encounter [facility] 05-27-2024 Note HNO ID: [id number] Author: TIFFANY GONZALEZ MD Service: ? Author Type: Physician Type: Progress Notes Filed: 05/27/2024 13:07 Note Text: LOUISA Attending Physician Note: Ultrasound and lab results reviewed. Based on review of ultrasound and lab results, medication dose and follow up date plans provided. See cycle flowsheet for dosing details. Tiffany Gonzalez MD, CROW [facility] 05-27-2024 Note HNO ID: [id number] Author: NILTON ZHANG RN Service: ? Author Type: Registered Nurse Type: Progress Notes Filed: 05/27/2024 07:02 Note Text: The patient is here today for follicular ultrasound and blood work. The patient reports no problems or complaints. Ultrasound and blood will be reviewed by the physician, the flow sheet will be updated and instructions will be communicated to the patient. Nilton Zhang RN May 27, 2024 7:02 AM [facility] 05-24-2024 Plan of care note 38 yo G1010 w/ PCOS, BMI 43, oligoovulation, 1 prior miscarriage, and poor response to oral OI, now s/p SO+TI x5 times. SIS with possible lesion, hysteroscopy normal, EMB to rule out endometritis was negative. Partner SA Latest Ref Rng 03/24/2023 Date Of Analysis 03/24/23 Semen Volume >=1.50 mL 1.70 Semen pH >=7.2 7.8 Color, Semen Burton Opalescent Semen Viscosity Normal Concentration >=15.00 M/mL 215.00 Total Count Sperm M 365.50 % Motile Sperm (%[place] + %MOLD CAPPER HELPER) >=40 % 76 Forward Progression 3 = Good motility, unidirectional Total Motile Sperm M 277.78 Sperm Diff, John >=4 % 2 (L) Undiff Rnd Cell W Rout Semen Anly <1.00 M/mL 0.70 Abstinence Time Days 2.5 Collection Time 816 Receipt Time 0818 Semen Age 0 - 60 Minutes 27 Semen Comment 1 Tin Arizmendi : 1985 Semen Comment 2 Concentration and motility performed using Makler chamber. At this point, I recommend proceeding with IVF. If patient wants to instead proceed with SO +/- IUI versus TI, this is acceptable, though diminishing likelihood of success given number of prior cycles and her advancing age. I communicated this plan to the nurse - if IVF, then patient needs to see me in follow up. If not IVF, can do an additional 2-3 cycles before need for follow up with me. Michel Joseph MD [facility] 05-24-2024 Miscellaneous Notes 38 yo G1010 w/ PCOS, BMI 43, oligoovulation, 1 prior miscarriage, and poor response to oral OI, now s/p SO+TI x5 times. SIS with possible lesion, hysteroscopy normal, EMB to rule out endometritis was negative. Partner SA Latest Ref Rng 03/24/2023 Date Of Analysis 03/24/23 Semen Volume >=1.50 mL 1.70 Semen pH >=7.2 7.8 Color, Semen Burton Opalescent Semen Viscosity Normal Concentration >=15.00 M/mL 215.00 Total Count Sperm M 365.50 % Motile Sperm (%[place] + %MOLD CAPPER HELPER) >=40 % 76 Forward Progression 3 = Good motility, unidirectional Total Motile Sperm M 277.78 Sperm Diff, John >=4 % 2 (L) Undiff Rnd Cell W Rout Semen Anly <1.00 M/mL 0.70 Abstinence Time Days 2.5 Collection Time 816 Receipt Time 817 Semen Age 0 - 60 Minutes 27 Semen Comment 1 Tin Michaelyayakeely : 1985 Semen Comment 2 Concentration and motility performed using Makler chamber. At this point, I recommend proceeding with IVF. If patient wants to instead proceed with SO +/- IUI versus TI, this is acceptable, though diminishing likelihood of success given number of prior cycles and her advancing age. I communicated this plan to the nurse - if IVF, then patient needs to see me in follow up. If not IVF, can do an additional 2-3 cycles before need for follow up with me. Michel Joseph MD documented in this encounter [facility] 05-13-2024 Note HNO ID: [id number] Author: MICHEL JOSEPH MD Service: ? Author Type: Physician Type: Procedures Filed: 05/15/2024 12:58 Note Text: Tin Arizmendi presents for hysteroscopy. Indication: Irregular Bleeding. Age: [age] year old LMP: Patient's last menstrual period was 05/06/2024 (exact date). Contraception: none test: negative VS: BP 145/72 Pulse 80 Temp (Src) 97.9 (Temporal Artery) Resp 18 Ht 5' 4 (1.63m) Wt 250 lb (113.4kg) SpO2 93% LMP 05/06/2024 BMI 42.89 kg/(m2). UNIVERSAL PROTOCOL / SAFETY CHECKLIST Procedure to be Performed: operative office hysteroscopy Sign In: A Moment of CARE was completed. Personnel directly involved with the procedure wore the appropriate PPE (Personal Protective Equipment). No special equipment needed. Patient/Surrogate Stated/Verified: PATIENT VERIFIED(optional for EMERGENT procedures): Patient name, Date of , Relevant allergies, and The intended procedure Time Out Communication: Intended patient and procedure match the source documents. Consent documented and matches the intended procedure. Relevant labs, photos, and/or imaging studies have been reviewed. Sign Out: SIGN OUT (optional for EMERGENT procedures): All specimen containers correctly labeled. Odette Villa MD OBJECTIVE: Under sterile conditions, using normal saline as distention, 3.2mm rigid hysteroscopy performed without incident. No endocervical lesions seen. Endometrial lining thickened in areas/possibly inflamed but otherwise overall normal. Endometrial biopsy taken and sent Tubal ostia visualized and normal. Endometrial biopsy performed. PROCEDURE SUMMARY: Patient tolerated procedure well. ASSESMENT: Irregular Bleeding with no lesions on hysteroscopy. PLAN: Follow up endometrial biopsy results Michel Joseph MD [facility] 05-13-2024 Procedure note Tin Arizmendi presents for hysteroscopy. Indication: Irregular Bleeding. Age: [age] year old LMP: Patient's last menstrual period was 05/06/2024 (exact date). Contraception: none test: negative VS: BP 145/72 Pulse 80 Temp (Src) 97.9 (Temporal Artery) Resp 18 Ht 5' 4 (1.63m) Wt 250 lb (113.4kg) SpO2 93% LMP 05/06/2024 BMI 42.89 kg/(m^2). UNIVERSAL PROTOCOL / SAFETY CHECKLIST Procedure to be Performed: operative office hysteroscopy Sign In: A Moment of CARE was completed. Personnel directly involved with the procedure wore the appropriate PPE (Personal Protective Equipment). No special equipment needed. Patient/Surrogate Stated/Verified: PATIENT VERIFIED(optional for EMERGENT procedures): Patient name, Date of , Relevant allergies, and The intended procedure Time Out Communication: Intended patient and procedure match the source documents. Consent documented and matches the intended procedure. Relevant labs, photos, and/or imaging studies have been reviewed. Sign Out: SIGN OUT (optional for EMERGENT procedures): All specimen containers correctly labeled. Odette Villa MD OBJECTIVE: Under sterile conditions, using normal saline as distention, 3.2mm rigid hysteroscopy performed without incident. No endocervical lesions seen. Endometrial lining thickened in areas/possibly inflamed but otherwise overall normal. Endometrial biopsy taken and sent Tubal ostia visualized and normal. Endometrial biopsy performed. PROCEDURE SUMMARY: Patient tolerated procedure well. ASSESMENT: Irregular Bleeding with no lesions on hysteroscopy. PLAN: Follow up endometrial biopsy results Michel Joseph MD T [facility] 05-13-2024 Procedure note Tin Arizmendi presents for hysteroscopy. Indication: Irregular Bleeding. Age: [age] year old LMP: Patient's last menstrual period was 05/06/2024 (exact date). Contraception: none test: negative VS: BP 145/72 Pulse 80 Temp (Src) 97.9 (Temporal Artery) Resp 18 Ht 5' 4 (1.63m) Wt 250 lb (113.4kg) SpO2 93% LMP 05/06/2024 BMI 42.89 kg/(m^2). UNIVERSAL PROTOCOL / SAFETY CHECKLIST Procedure to be Performed: operative office hysteroscopy Sign In: A Moment of CARE was completed. Personnel directly involved with the procedure wore the appropriate PPE (Personal Protective Equipment). No special equipment needed. Patient/Surrogate Stated/Verified: PATIENT VERIFIED(optional for EMERGENT procedures): Patient name, Date of , Relevant allergies, and The intended procedure Time Out Communication: Intended patient and procedure match the source documents. Consent documented and matches the intended procedure. Relevant labs, photos, and/or imaging studies have been reviewed. Sign Out: SIGN OUT (optional for EMERGENT procedures): All specimen containers correctly labeled. Odette Villa MD OBJECTIVE: Under sterile conditions, using normal saline as distention, 3.2mm rigid hysteroscopy performed without incident. No endocervical lesions seen. Endometrial lining thickened in areas/possibly inflamed but otherwise overall normal. Endometrial biopsy taken and sent Tubal ostia visualized and normal. Endometrial biopsy performed. PROCEDURE SUMMARY: Patient tolerated procedure well. ASSESMENT: Irregular Bleeding with no lesions on hysteroscopy. PLAN: Follow up endometrial biopsy results Michel Joseph MD documented in this encounter [facility] 05-05-2024 Telephone encounter Note Financial approved not received yet for Rigid Hysteroscopy. Mychart sent to patient. Nilton Zhang RN May 05, 2024 4:12 PM [facility] 05-05-2024 Miscellaneous Notes Financial approved not received yet for Rigid Hysteroscopy. Mychart sent to patient. Nilton Zhang RN May 05, 2024 4:12 PM Called patient. Informed that Dr. Joseph would like her to have a rigid hysteroscopy in office and we are awaiting financial approval. Patient states she stopped taking her control 5 days ago. Instructed to begin OCP again in anticipation of procedure. Pt. Verbalized understanding. Message sent to PSS regarding approval for patient's procedure. PSS stated no approval yet. Nilton Zhang RN May 05, 2024 1:32 PM Called patient. No answer. Left VM. Nilton Zhang RN May 05, 2024 12:13 PM documented in this encounter [facility] 05-05-2024 Telephone encounter Note Called patient. Informed that Dr. Joseph would like her to have a rigid hysteroscopy in office and we are awaiting financial approval. Patient states she stopped taking her control 5 days ago. Instructed to begin OCP again in anticipation of procedure. Pt. Verbalized understanding. Message sent to PSS regarding approval for patient's procedure. PSS stated no approval yet. Nilton Zhang RN May 05, 2024 1:32 PM [facility] 05-05-2024 Telephone encounter Note Called patient. No answer. Left VM. Nilton Zhang RN May 05, 2024 12:13 PM [facility] 05-04-2024 Telephone encounter Note Awaiting response from Dr. Joseph regarding plan for patient folloowing SIS last week. Mychart sent to patient. Nilton Zhang RN May 04, 2024 3:52 PM [facility] 05-04-2024 Miscellaneous Notes Awaiting response from Dr. Joseph regarding plan for patient folloowing SIS last week. Mychart sent to patient. Nilton Zhang RN May 04, 2024 3:52 PM Patient hasn't received call discussing next steps after pt ultrasound last week documented in this encounter [facility] 05-04-2024 Telephone encounter Note Message sent to Dr. Joseph for plan for patient following her SIS last week. Nilton Zhang RN May 04, 2024 3:51 PM [facility] 05-04-2024 Miscellaneous Notes Message sent to Dr. Joseph for plan for patient following her SIS last week. Nilton Zhang RN May 04, 2024 3:51 PM Pt would like to discuss plans , pt had sis 04/29 documented in this encounter [facility] 05-04-2024 Telephone encounter Note Patient hasn't received call discussing next steps after pt ultrasound last week [facility] 05-03-2024 Telephone encounter Note Pt would like to discuss plans , pt had sis 04/29 [facility] 04-29-2024 Note Indication SIS, Evaluation of infertility Impression Normal appearing anteverted uterus that measures 74 mm x 35 mm x 53 mm. Both ovaries are visualized and appear normal. No adnexal masses were observed. There is no free fluid visualized in the peritoneal cavity. Uterus is not distended with saline in either transvaginal or transabdominal views and so unable to assess for filling defects. Recommendations Consider hysteroscopy to assess the endometrial cavity Method Transvaginal, 3D ultrasound examination, Color Doppler examination Uterus Uterus: Visualized Uterus position: anteverted Endometrium: endometrial midline: linear, single Cervix details: cystic lesions identified suggesting superficial Nabothian cysts Uterus length 74 mm Uterus width 53 mm Uterus height 35 mm Uterus Vol 71.9 cm Endometrial thickness, total 4.4 mm Right Ovary Rt ovary: Visualized Rt ovary morphology: premenopausal polycystic Rt ovary D1 30 mm Rt ovary D2 27 mm Rt ovary D3 23 mm Rt ovary Vol 9.8 cm Left Ovary Lt ovary: Visualized Lt ovary morphology: premenopausal polycystic Lt ovary D1 37 mm Lt ovary D2 36 mm Lt ovary D3 29 mm Lt ovary Vol 19.9 cm Cul de Sac Visualized. no free fluid visualized Procedure To characterize the uterus, three dimensional imaging was created on a dedicated stand-alone 3D workstation with images created and archived, and supervised and reviewed by the interpreting physician utilizing images from an ultrasound scan performed today. Performed By: Dorothy Betancourt RDMS Read By: Michel Joseph M.D. [facility] 04-29-2024 Note HNO ID: [id number] Author: MIGUEL LEVY APRN.INTERNATIONAL FLIGHT ATTENDANT Service: ? Author Type: Nurse Practitioner Type: Procedures Filed: 04/29/2024 12:08 Note Text: Tin Arizmendi is a 38 year old here for SIS. Referred by: Michel Joseph [id number] [id number] Chief Complaint: irregular bleeding Endometrial Biopsy: No Ultrasound: No Hormonal therapy: No. LMP: Patient's last menstrual period was 08/16/2023 (approximate). Cycles: PERIOD REGULARITY: irregular Contraception: none HCG: negative UNIVERSAL PROTOCOL / SAFETY CHECKLIST Procedure to be Performed: SIS Sign In: A Moment of CARE was completed. Personnel directly involved with the procedure wore the appropriate PPE (Personal Protective Equipment). Patient/Surrogate Stated/Verified: PATIENT VERIFIED(optional for EMERGENT procedures): Patient name, Date of , Relevant allergies, and The intended procedure Time Out Communication: Intended patient and procedure match the source documents. Consent documented and matches the intended procedure. Sign Out: SIGN OUT (optional for EMERGENT procedures): No specimen collected. All instruments, equipment, possible retained foreign bodies accounted for. Post-procedure follow-up management communicated and Plan of Care Visit completed when applicable. Miguel Levy APRN.INTERNATIONAL FLIGHT ATTENDANT PROCEDURE: EXTERNAL GENITALIA: Normal in appearance without lesions VAGINA: Normal in appearance without lesions Speculum placed into the vagina with excellent visualization of the cervix. Cervix cleaned with Hibiclens. SIS catheter inserted into the uterus, only able to advance just past internal OS, patient complaining of intense pain. Speculum removed and 20mL sterile saline injected into the uterine cavity under ultrasound guidance, saline did not fill uterus, stopped at lower uterine segment. Switched to balloon catheter and same result. Dr. Butt at bedside to assist, unable to fill cavity. Procedure Summary: Patient tolerated procedure well. See ViewPoint for procedure results. Miguel Levy APRN.CNP [facility] 04-29-2024 Procedure note Tin Arizmendi is a 38 year old here for SIS. Referred by: Michel Joseph [id number] [id number] Chief Complaint: irregular bleeding Endometrial Biopsy: No Ultrasound: No Hormonal therapy: No. LMP: Patient's last menstrual period was 08/16/2023 (approximate). Cycles: PERIOD REGULARITY: irregular Contraception: none HCG: negative UNIVERSAL PROTOCOL / SAFETY CHECKLIST Procedure to be Performed: SIS Sign In: A Moment of CARE was completed. Personnel directly involved with the procedure wore the appropriate PPE (Personal Protective Equipment). Patient/Surrogate Stated/Verified: PATIENT VERIFIED(optional for EMERGENT procedures): Patient name, Date of , Relevant allergies, and The intended procedure Time Out Communication: Intended patient and procedure match the source documents. Consent documented and matches the intended procedure. Sign Out: SIGN OUT (optional for EMERGENT procedures): No specimen collected. All instruments, equipment, possible retained foreign bodies accounted for. Post-procedure follow-up management communicated and Plan of Care Visit completed when applicable. Miguel Levy APRN.ADELE PROCEDURE: EXTERNAL GENITALIA: Normal in appearance without lesions VAGINA: Normal in appearance without lesions Speculum placed into the vagina with excellent visualization of the cervix. Cervix cleaned with Hibiclens. SIS catheter inserted into the uterus, only able to advance just past internal OS, patient complaining of intense pain. Speculum removed and 20mL sterile saline injected into the uterine cavity under ultrasound guidance, saline did not fill uterus, stopped at lower uterine segment. Switched to balloon catheter and same result. Dr. Butt at bedside to assist, unable to fill cavity. Procedure Summary: Patient tolerated procedure well. See ViewPoint for procedure results. Miguel Levy APRN.INTERNATIONAL FLIGHT ATTENDANT [facility] 04-29-2024 Procedure note Tin Arizmendi is a 38 year old here for SIS. Referred by: Michel Joseph [id number] [facility] [id number] Chief Complaint: irregular bleeding Endometrial Biopsy: No Ultrasound: No Hormonal therapy: No. LMP: Patient's last menstrual period was 08/16/2023 (approximate). Cycles: PERIOD REGULARITY: irregular Contraception: none HCG: negative UNIVERSAL PROTOCOL / SAFETY CHECKLIST Procedure to be Performed: SIS Sign In: A Moment of CARE was completed. Personnel directly involved with the procedure wore the appropriate PPE (Personal Protective Equipment). Patient/Surrogate Stated/Verified: PATIENT VERIFIED(optional for EMERGENT procedures): Patient name, Date of , Relevant allergies, and The intended procedure Time Out Communication: Intended patient and procedure match the source documents. Consent documented and matches the intended procedure. Sign Out: SIGN OUT (optional for EMERGENT procedures): No specimen collected. All instruments, equipment, possible retained foreign bodies accounted for. Post-procedure follow-up management communicated and Plan of Care Visit completed when applicable. Miguel Levy APRN.CNP PROCEDURE: EXTERNAL GENITALIA: Normal in appearance without lesions VAGINA: Normal in appearance without lesions Speculum placed into the vagina with excellent visualization of the cervix. Cervix cleaned with Hibiclens. SIS catheter inserted into the uterus, only able to advance just past internal OS, patient complaining of intense pain. Speculum removed and 20mL sterile saline injected into the uterine cavity under ultrasound guidance, saline did not fill uterus, stopped at lower uterine segment. Switched to balloon catheter and same result. Dr. Butt at bedside to assist, unable to fill cavity. Procedure Summary: Patient tolerated procedure well. See ViewPoint for procedure results. Miguel Levy APRN.CNP documented in this encounter [facility] 04-15-2024 Note HNO ID: [id number] Author: TIFFANY GONZALEZ MD Service: ? Author Type: Physician Type: Progress Notes Filed: 04/15/2024 14:48 Note Text: LOUISA Attending Physician Note: Ultrasound and lab results reviewed. Based on review of ultrasound and lab results, medication dose and follow up date plans provided. Will have patient start oral contraception pill today since there is no follicular development. Will route chart to Dr. Joseph as there may be a plan for uterine cavity evaluation, which could take place while she is on the OCP or after a withdrawal bleed. Tiffany Gonzalez MD, MBA [facility] 04-15-2024 History of Present illness Narrative LOUISA Attending Physician Note: Ultrasound and lab results reviewed. Based on review of ultrasound and lab results, medication dose and follow up date plans provided. Will have patient start oral contraception pill today since there is no follicular development. Will route chart to Dr. Joseph as there may be a plan for uterine cavity evaluation, which could take place while she is on the OCP or after a withdrawal bleed. Tiffany Gonzalez MD, MBA The patient is here today for follicular ultrasound and blood work. The patient reports no problems or complaints. Ultrasound and blood will be reviewed by the physician, the flow sheet will be updated and instructions will be communicated to the patient. Nilton Zhang RN April 15, 2024 10:05 AM documented in this encounter [facility] 04-15-2024 Note HNO ID: [id number] Author: NILTON ZHANG RN Service: ? Author Type: Registered Nurse Type: Progress Notes Filed: 04/15/2024 10:05 Note Text: The patient is here today for follicular ultrasound and blood work. The patient reports no problems or complaints. Ultrasound and blood will be reviewed by the physician, the flow sheet will be updated and instructions will be communicated to the patient. Nilton Zhang RN April 15, 2024 10:05 AM [facility] 04-08-2024 Telephone encounter Note Call to pt at cell number listed Pt states that she had blood drawn locally since she is on vacation and call about results. Reviewed we have not received them yet but will keep a look out. Pt states she has the results and will send them via [employer] Pt verbalized understanding Nely Cotton RN April 08, 2024 8:39 AM [facility] 04-08-2024 Miscellaneous Notes Call to pt at cell number listed Pt states that she had blood drawn locally since she is on vacation and call about results. Reviewed we have not received them yet but will keep a look out. Pt states she has the results and will send them via [employer] Pt verbalized understanding Nely Cotton RN April 08, 2024 8:39 AM Pt has ques on getting her labs done in [place] will they be stat documented in this encounter [facility] 04-07-2024 Telephone encounter Note Pt has ques on getting her labs done in [place] will they be stat [facility] 04-07-2024 Telephone encounter Note Letter with lab orders faxed to [phone] in [employer] Nilton Zhang RN April 07, 2024 10:16 AM [facility] 04-07-2024 Miscellaneous Notes Letter with lab orders faxed to [phone] in [employer] Nilton Zhang RN April 07, 2024 10:16 AM documented in this encounter [facility] 04-07-2024 Note HNO ID: [id number] Author: NILTON ZHANG RN Service: ? Author Type: Registered Nurse Type: Progress Notes Filed: 04/07/2024 10:13 Note Text: Called patient and instructed to have labs done today. Pt. States she is out of town but will try to find a lab. Letter sent with lab orders. Midcycle appt. Scheduled for 04/15/24. Pt. Has Hcg script and will order when back home. Message sent to PSS for referral for mIdcycle/IUI. Mychart sent to patient with plan. Nilton Zhang RN April 07, 2024 10:06 AM [facility] 04-05-2024 Note HNO ID: [id number] Author: NILTON ZHANG RN Service: ? Author Type: Registered Nurse Type: Progress Notes Filed: 04/05/2024 16:46 Note Text: Discussed plan for patient with Dr. Joseph. See plan below: We have two options: A. within the next 5 days (sooner is safer), LET 10 mg for 5 days. B. control for 3 weeks. Called patient and discussed options. Pt. Has opted to do a letrozole cycle 10mg x5 days, with midcycle scan and IUI. Pt. Will start letrozole randomly tomorrow 04/06/24. Nilton Zhang RN April 05, 2024 4:39 PM [facility] 04-05-2024 History of Present illness Narrative Discussed plan for patient with Dr. Joseph. See plan below: We have two options: A. within the next 5 days (sooner is safer), LET 10 mg for 5 days. B. control for 3 weeks. Called patient and discussed options. Pt. Has opted to do a letrozole cycle 10mg x5 days, with midcycle scan and IUI. Pt. Will start letrozole randomly tomorrow 04/06/24. Nilton Zhang RN April 05, 2024 4:39 PM Progesterone and Hcg level from 04/04/[address] Joseph for review. Latest Ref Rng 04/04/2024 Progesterone See comment ng/mL 0.3 hCG Quantitative, Blood <5.0 mIU/mL <0.6 Nilton Zhang RN April 05, 2024 9:31 AM documented in this encounter [facility] 04-05-2024 Note HNO ID: [id number] Author: NILTON ZHANG, RN Service: ? Author Type: Registered Nurse Type: Progress Notes Filed: 04/05/2024 16:08 Note Text: Progesterone and Hcg level from 04/04/[address] Joseph for review. Latest Ref Rng 04/04/2024 Progesterone See comment ng/mL 0.3 hCG Quantitative, Blood <5.0 mIU/mL <0.6 Nilton Zhang RN April 05, 2024 9:31 AM [facility] 04-01-2024 Note HNO ID: [id number] Author: NILTON ZHANG, RN Service: ? Author Type: Registered Nurse Type: Progress Notes Filed: 04/01/2024 16:14 Note Text: Called Dr. Joseph and discussed patient's plan of care. Dr. Joseph would like patient to have a progesterone level done on Thursday and then he will make a plan based on results. Plan per Dr. Edmonds's notes: Next immediate steps: 1. Take provera (double dose) for 7 days-DONE 2. If period, then call to schedule saline ultrasound (details below), needs to be scheduled between cycle day 6-11. On day of procedure, get blood drawn for lab work 3. If no period, then call the office and we will order special blood work to assess what might be happening- P4 will be on 04/04/24 4. If period, then can proceed with additional cycle. This can be done concurrently with the diagnostic testing above. I recommend we forgo letrozole and start FSH 75 units beginning on cycle day 3. I also want to check progesterone and hcg levels after trigger. Otherwise can keep protocol the same. 5. Follow up in 3-6 months if no to change plans, discuss IVF etc. I have included some information about IVF below. Called patient and instructed to get Progesterone level on 04/04/24. Pt. Verbalized understanding and is aware she will be called on 04/05/24 with plan. Nilton Zhang RN April 01, 2024 3:52 PM [facility] 03-31-2024 Telephone encounter Note Patient called and questioned if she can have SIS without having period. Patient reports the following history: Pt. Had D&C in October, has not had a normal period since then. Took one round of Provera after D&C. Had a day of dark red spotting on 03/06/24. Took another round of Provera and finished on 03/16/24. Pt. Expressing frustration over waiting for period to start. Chat Message sent to Dr. Joseph for plan. Nilton Zhang RN March 31, 2024 2:50 PM [facility] 03-31-2024 Miscellaneous Notes Patient called and questioned if she can have SIS without having period. Patient reports the following history: Pt. Had D&C in October, has not had a normal period since then. Took one round of Provera after D&C. Had a day of dark red spotting on 03/06/24. Took another round of Provera and finished on 03/16/24. Pt. Expressing frustration over waiting for period to start. Chat Message sent to Dr. Joseph for plan. Nilton Zhang RN March 31, 2024 2:50 PM Pt returning call Pt would like to know her next steps? Has taken provera still no cycle documented in this encounter [facility] 03-31-2024 Telephone encounter Note Pt returning call [facility] 03-30-2024 Telephone encounter Note Pt would like to know her next steps? Has taken provera still no cycle [facility] 03-23-2024 Telephone encounter Note Called pt by listed phone number. See phone encounter from 03/23/24. Lotus Vides RN March 23, 2024 10:45 AM [facility] 03-23-2024 Miscellaneous Notes Called pt by listed phone number. See phone encounter from 03/23/24. Lotus Vides RN March 23, 2024 10:45 AM documented in this encounter [facility] 03-23-2024 Telephone encounter Note Called pt by listed phone number. Apologized to pt the delay in relaying her plan to her. Informed of plan per Dr Joseph. Pt concerned of scar tissue being found on SIS and need of surgery. Per Dr Joseph- Given her concerns, I like that plan: Have her take provera, start OCPs with that period and schedule SIS Make sure SIS is all good, stop OCPs and then Baseline for Super OV No need to continue the Dexamethasone 0.5 mg with stimulation like she has done with all her other cycles Pt agreeable to plan. Took provera and awaiting period. OCPs ordered, to be signed. Pt to take OCPs with the start of period and call to schedule SIS. Dr Joseph to review SIS before proceeding with SO cycle. Pt to follow up with office after SIS. Lotus Vides RN March 23, 2024 8:59 AM [facility] 03-23-2024 Miscellaneous Notes Called pt by listed phone number. Apologized to pt the delay in relaying her plan to her. Informed of plan per Dr Joseph. Pt concerned of scar tissue being found on SIS and need of surgery. Per Dr Joseph- Given her concerns, I like that plan: Have her take provera, start OCPs with that period and schedule SIS Make sure SIS is all good, stop OCPs and then Baseline for Super OV No need to continue the Dexamethasone 0.5 mg with stimulation like she has done with all her other cycles Pt agreeable to plan. Took provera and awaiting period. OCPs ordered, to be signed. Pt to take OCPs with the start of period and call to schedule SIS. Dr Joseph to review SIS before proceeding with SO cycle. Pt to follow up with office after SIS. Lotus Vides RN March 23, 2024 8:59 AM Message resent to Dr Joseph. Awaiting answer to give pt. Lotus Vides RN March 22, 2024 2:30 PM Pt had sis done and states they found some scar tissue in the findings. Pt would like to know if she needs to stop her meds? Or go through surgery? Pt states she has tried for 3 weeks to get an answer with no response documented in this encounter [facility] 03-22-2024 Telephone encounter Note Message resent to Dr Joseph. Awaiting answer to give pt. Lotus Vides RN March 22, 2024 2:30 PM [facility] 03-22-2024 Telephone encounter Note Pt had sis done and states they found some scar tissue in the findings. Pt would like to know if she needs to stop her meds? Or go through surgery? Pt states she has tried for 3 weeks to get an answer with no response [facility] 03-09-2024 Telephone encounter Note Returned call to pt using listed phone number. Pt states light bleeding only lasted a day and stopped. Pt was to hold off starting Provera until she completes her colposcopy. Pt plans to then start and call to schedule SIS. Pt has concerns about starting her SO cycle at same time as SIS. She says if surgery or follow up is possible needed at that time she would like to hold off starting any medications due to cost. Reviewed possible timeline with pt. Pt would like clarification with Dr Joseph. Message sent. Orders placed for SO, to be signed. Chart sent to schedulers for clearance. Lotus Vides RN March 09, 2024 11:11 AM [facility] 03-09-2024 Miscellaneous Notes Returned call to pt using listed phone number. Pt states light bleeding only lasted a day and stopped. Pt was to hold off starting Provera until she completes her colposcopy. Pt plans to then start and call to schedule SIS. Pt has concerns about starting her SO cycle at same time as SIS. She says if surgery or follow up is possible needed at that time she would like to hold off starting any medications due to cost. Reviewed possible timeline with pt. Pt would like clarification with Dr Joseph. Message sent. Orders placed for SO, to be signed. Chart sent to schedulers for clearance. Lotus Vides RN March 09, 2024 11:11 AM Pt didn't start her provera documented in this encounter [facility] 03-09-2024 Telephone encounter Note Pt didn't start her provera [facility] 03-09-2024 Telephone encounter Note Called pt by listed phone number, no answer and left message. Instructed pt to wait for day of full flow bleeding. Wanted to verify if she took Provera or not as Dr Joseph wrote in his note. SO #6 episode create. Chart sent to schedulers for SO referral. Asked pt to return call to office to review plan per Dr Edmonds's consult note. Lotus Vides RN March 09, 2024 9:59 AM [facility] 03-09-2024 Miscellaneous Notes Called pt by listed phone number, no answer and left message. Instructed pt to wait for day of full flow bleeding. Wanted to verify if she took Provera or not as Dr Joseph wrote in his note. SO #6 episode create. Chart sent to schedulers for SO referral. Asked pt to return call to office to review plan per Dr Edmonds's consult note. Lotus Vides RN March 09, 2024 9:59 AM Cycle just lasted 1 day, brown then and pink yesterday very light. Should she take provera or should she count this as her cycle for super ov cycle, please follow up with patient. Pt wants to discuss her period coming and going documented in this encounter [facility] 03-08-2024 Telephone encounter Note Cycle just lasted 1 day, brown then and pink yesterday very light. Should she take provera or should she count this as her cycle for super ov cycle, please follow up with patient. [facility] Work Phone: 03-08-2024 Note Pepe Pope MD 03/08/2024 2:27 PM COLPOSCOPY PROCEDURE Date/Time: 03/08/2024 2:25 PM Performed by: Pepe Pope MD Authorized by: Pepe Pope MD Indication: HPV + Diagnosis: (R87.810) Cervical high risk HPV (human papillomavirus) test positive (primary encounter diagnosis) Patient's last menstrual period was 08/16/2023 (approximate). Informed Consent Consent Obtained: Written [place] Protocol SIGN IN Patient/Surrogate Stated/Verified: Patient name, Date of , Relevant allergies and Intended procedure TIME OUT Intended patient and procedure match the source document(s). Consent documented and matches the intended procedure. Relevant labs, photos, and/or imaging studies have been reviewed. Pre-Procedure Details: Pre-meds: None Local anesthetic: None Procedure Details: Procedure: Colposcopy of Vagina including Cervix [place] speculum was placed in the vagina. Acetic acid placed on cervix. Under colposcopic examination the transition zone was seen in entirety. Biopsy not done. Monsel's solution was not applied. Post-Procedure Details: Impression: Normal Patient tolerated the procedure well with no immediate complications. : Follow up 1 year for pap smear. SIGN OUT No specimen collected. All instruments, equipment, possible retained foreign bodies accounted for. Post-procedure follow-up management communicated and Plan of Care Visit completed when applicable Comments: Note patient quit smoking in October. [facility] 03-08-2024 Note HNO ID: [id number] Author: PEPE POPE MD Service: ? Author Type: Physician Type: Procedures Filed: 03/08/2024 14:27 Note Text: COLPOSCOPY PROCEDURE Date/Time: 03/08/2024 2:25 PM Performed by: Pepe Pope MD Authorized by: Pepe Pope MD Indication: HPV + Diagnosis: (R87.810) Cervical high risk HPV (human papillomavirus) test positive (primary encounter diagnosis) Patient's last menstrual period was 08/16/2023 (approximate). Informed Consent Consent Obtained: Written [place] Protocol SIGN IN Patient/Surrogate Stated/Verified: Patient name, Date of , Relevant allergies and Intended procedure TIME OUT Intended patient and procedure match the source document(s). Consent documented and matches the intended procedure. Relevant labs, photos, and/or imaging studies have been reviewed. Pre-Procedure Details: Pre-meds: None Local anesthetic: None Procedure Details: Procedure: Colposcopy of Vagina including Cervix [place] speculum was placed in the vagina. Acetic acid placed on cervix. Under colposcopic examination the transition zone was seen in entirety. Biopsy not done. Monsel's solution was not applied. Post-Procedure Details: Impression: Normal Patient tolerated the procedure well with no immediate complications. : Follow up 1 year for pap smear. SIGN OUT No specimen collected. All instruments, equipment, possible retained foreign bodies accounted for. Post-procedure follow-up management communicated and Plan of Care Visit completed when applicable Comments: Note patient quit smoking in October. Pepe Pope MD [facility] 03-08-2024 Procedure note Associated Ord er(s): COLPOSCOPY Post-Procedure Diagnose(s): Cervical high risk HPV (human papillomavirus) test positive COLPOSCOPY PROCEDURE Date/Time: 03/08/2024 2:25 PM Performed by: Pepe Pope MD Authorized by: Pepe Pope MD Indication: HPV + Diagnosis: (R87.810) Cervical high risk HPV (human papillomavirus) test positive (primary encounter diagnosis) Patient's last menstrual period was 08/16/2023 (approximate). Informed Consent Consent Obtained: Written [place] Protocol SIGN IN Patient/Surrogate Stated/Verified: Patient name, Date of , Relevant allergies and Intended procedure TIME OUT Intended patient and procedure match the source document(s). Consent documented and matches the intended procedure. Relevant labs, photos, and/or imaging studies have been reviewed. Pre-Procedure Details: Pre-meds: None Local anesthetic: None Procedure Details: Procedure: Colposcopy of Vagina including Cervix [place] speculum was placed in the vagina. Acetic acid placed on cervix. Under colposcopic examination the transition zone was seen in entirety. Biopsy not done. Monsel's solution was not applied. Post-Procedure Details: Impression: Normal Patient tolerated the procedure well with no immediate complications. : Follow up 1 year for pap smear. SIGN OUT No specimen collected. All instruments, equipment, possible retained foreign bodies accounted for. Post-procedure follow-up management communicated and Plan of Care Visit completed when applicable Comments: Note patient quit smoking in October. Pepe Pope MD [facility] Work Phone: 03-08-2024 Procedure note Associated Ord er(s): COLPOSCOPY Post-Procedure Diagnose(s): Cervical high risk HPV (human papillomavirus) test positive COLPOSCOPY PROCEDURE Date/Time: 03/08/2024 2:25 PM Performed by: Pepe Pope MD Authorized by: Pepe Pope MD Indication: HPV + Diagnosis: (R87.810) Cervical high risk HPV (human papillomavirus) test positive (primary encounter diagnosis) Patient's last menstrual period was 08/16/2023 (approximate). Informed Consent Consent Obtained: Written [place] Protocol SIGN IN Patient/Surrogate Stated/Verified: Patient name, Date of , Relevant allergies and Intended procedure TIME OUT Intended patient and procedure match the source document(s). Consent documented and matches the intended procedure. Relevant labs, photos, and/or imaging studies have been reviewed. Pre-Procedure Details: Pre-meds: None Local anesthetic: None Procedure Details: Procedure: Colposcopy of Vagina including Cervix [place] speculum was placed in the vagina. Acetic acid placed on cervix. Under colposcopic examination the transition zone was seen in entirety. Biopsy not done. Monsel's solution was not applied. Post-Procedure Details: Impression: Normal Patient tolerated the procedure well with no immediate complications. : Follow up 1 year for pap smear. SIGN OUT No specimen collected. All instruments, equipment, possible retained foreign bodies accounted for. Post-procedure follow-up management communicated and Plan of Care Visit completed when applicable Comments: Note patient quit smoking in October. Pepe Pope MD documented in this encounter [facility] 03-08-2024 Instructions Pepe Pope MD - 03/08/2024 1:53 PM EDT documented in this encounter [facility] 03-07-2024 Telephone encounter Note Pt wants to discuss her period coming and going [facility] 03-02-2024 History of Present illness Narrative Chief Complaint: Tin [facility]mendi [facility] 03/02/2024. She is a 38 y.o. female followed at the [facility] for NIOK, for which auto-CPAP 5-20 cm H2O was prescribed. At the time of the last visit on 02/03/[address] Shell, the plan was to continue APAP. HPI: The patient reports that she is non-adherent to her nocturnal ventilatory support for the past year. She reports that she does not like her mask and therefore stopped wearing it. She did not have an appointment in our office until now. She reports that she feels is starting to catch up with her in starting to have daytime sleepiness, fatigue and loud snoring. She does have some dyspnea with warm weather. She would like to get back on her machine as soon as possible. She denies any dyspnea, fevers, chills, hemoptysis, wheezing, or chest pain. She denies sleepiness while driving. Supplemental O2 use: none [place] Sleepiness Scale: Sitting and Reading: (!) Moderate Chance Watching TV: (!) Moderate Chance Sitting inactive in a public place (theater, meeting): Slight Chance As a passenger in a car for an hour without a break: Slight Chance Lying down in the afternoon to rest: Slight Chance Sitting and talking to someone: Never Sitting quietly after lunch (without alcohol): Slight Chance In a car, while stopped for a few minutes in traffic: Never Total: 8 OARRS: Reviewed: no PMH: Pertinent History: Her pertinent medical history includes Past Medical History: Diagnosis Date Chronic kidney disease Hx of lithotripsy 2004, 2013 Kidney stones Moderate obstructive sleep apnea 08/30/2020 AHI 20/11 min O2 78% NIKO (obstructive sleep apnea) 01/2022 ON CPAP PCOS (polycystic ovarian syndrome) Medications: Reviewed with patient. Current Outpatient Medications: metFORMIN (GLUCOPHAGE) 1000 mg tablet, Take 1 tablet (1,000 mg total) by mouth in the morning and 1 tablet (1,000 mg total) in the evening. Take with meals., Disp: , Rfl: PNV 119-iron fum-folic acid ( 19) 29 mg iron- 1 mg tablet, Take by mouth., Disp: , Rfl: Vitals: 03/02/24 1001 BP: 158/89 BP Site: Right Arm Pulse: 94 SpO2: 92% Weight: 117.9 kg (260 lb) Height: 162.6 cm (5' 4 ) Allergies: Reviewed with patient. Amoxil [amoxicillin] and Penicillins Family History: Family History Problem Relation Age of Onset Hypertension Mother Diabetes Father Lung cancer Maternal Grandmother Diabetes Maternal Grandfather Diabetes Paternal Grandmother Social History: Social History Socioeconomic History Marital status: Tobacco Use Smoking status: Former Types: Cigarettes Smokeless tobacco: Never Substance and Sexual Activity Alcohol use: No Drug use: No Sexual activity: Defer Social Determinants of Health Food Insecurity: No Food Insecurity (11/20/2023) Hunger Screening Food Insecurity - Worry: Never True Food Insecurity - Inability: Never True Travel History: Denies recent travel. ROS: All 11 systems have been reviewed: Review of Systems Constitutional: Positive for fatigue. Negative for chills and fever. Respiratory: Negative for cough, shortness of breath and wheezing. Cardiovascular: Negative for chest pain/discomfort. All other systems are reviewed and are negative except as noted. Physical Examination: Vital signs BP 158/89 (BP Site: Right Arm) Pulse 94 Ht 162.6 cm (5' 4 ) Wt 117.9 kg (260 lb) SpO2 92% BMI 44.63 kg/m Physical Exam Vitals and nursing note reviewed. Constitutional: Appearance: Normal appearance. She is obese. Cardiovascular: Heart sounds: Normal heart sounds. Pulmonary: Breath sounds: Normal breath sounds. Musculoskeletal: Cervical back: Neck supple. Skin: General: Skin is warm and dry. Neurological: Mental Status: She is alert and oriented to person, place, and time. Psychiatric: Mood and Affect: Mood normal. Behavior: Behavior normal. Laboratory DATA: Lab Results Component Value Date CO2 22 11/07/2023 Lab Results Component Value Date TSH 2.37 11/04/2021 Lab Results Component Value Date WBC 11.5 (H) 11/07/2023 HGB 13.8 11/07/2023 HCT 40.0 11/07/2023 MCV 89 11/07/2023 PLT 329 11/07/2023 No results found for: FERRITIN Chemistry Component Value Date/Time K 3.9 11/07/2023 1153 CL 105 11/07/2023 1153 CO2 22 11/07/2023 1153 BUN 10 11/07/2023 1153 CREATININE 0.66 11/07/2023 1153 GLU 85 11/07/2023 1153 Component Value Date/Time CALCIUM 9.0 11/07/2023 1153 ALKPHOS 55 11/07/2023 1153 AST 26 11/07/2023 1153 ALT 21 11/07/2023 1153 Lab Results Component Value Date TSH 2.37 11/04/2021 No results found. DATA: AHI 20.1 (3%) / 10.5 (4%), min sat 78%, average 91%, PSG Aug 2020) currently on auto CPAP 5-20 cm of water DME: [employer] Data card was not available for PAP usage data download. Impression: Tin was seen today for sleep apnea. Diagnoses and all orders for this visit: NIKO (obstructive sleep apnea) - PAP Mask and Supplies CPAP use counseling Obesity, Class III, BMI 40-49.9 (morbid obesity) ([facility]) Noncompliance with CPAP treatment NIKO with adherence to nocturnal ventilatory support on a nightly basis. Obesity Body mass index is 44.63 kg/m . Hypertension PCOS Former smoker Plan: Discussed diagnosis, its evaluation, treatment and usual course. All questions answered. Educational material distributed. Orders Placed This Encounter Procedures PAP Mask and Supplies Scheduling Instructions: Length of Need: 12 months -Full Face Interface1/3mos -Full Face Cushion 1/mo -Nasal Cushion 2/mo, -Nasal Mask 1/3mos -Pillows 2/mo -Htd Tubing 1/3mos -Headgear 1/6mos -Chin Strap1/6mos -Non-Disposable Filter1/6mos -Disposable Filter2/mo -Water Chamber1/6mos -Std Tubing 1/3 mos -Add heat humidification with tubing Order Specific Question: Please specify Answer: PAP Mask and Supplies Order Specific Question: The face to face evaluation was performed on Answer: 03/02/2024 Orders Placed or Reconciled This Encounter Medications metFORMIN (GLUCOPHAGE) 1000 mg tablet Sig: Take 1 tablet (1,000 mg total) by mouth in the morning and 1 tablet (1,000 mg total) in the evening. Take with meals. PNV 119-iron fum-folic acid ( 19) 29 mg iron- 1 mg tablet Sig: Take by mouth. She is to continue APAP 5-20 cm H20 on a nightly basis. New mask and supplies as needed. Independently reviewed and interpreted data download and ESS Diet and exercise were discussed in detail. Any age appropriate or routine screening per PCP. Follow up in 3 Months time. If her condition should change prior to this she is encouraged to give our office a call. Discussed triggers to call back before follow up including weight change > 10%, major medical issues including stroke, arrhythmia or heart attack, or significant change in symptoms. EDUCATION: Driving precautions were reviewed. I advised the patient not to drive if sleepy, and to basting puller if sleepiness occurs while driving. Above plan as discussed with the patient who acknowledged understanding and agreement. Health risks associated with untreated NIKO were discussed (cardiopulmonary, cerebrovascular, and anesthesia/sedative-related). Discussed triggers to call back before next visit including weight change > 10%, major medical issues including stroke, arrhythmia or heart attack, or significant change in symptoms. This note is dictated with the use of M*Modal.Please note that this dictation was completed with computer voice recognition software. Quite often unanticipated grammatical, syntax, homophones, and other interpretive errors are inadvertently transcribed by the computer software. Please disregard these errors. Please excuse any errors that have escaped final proofreading. Vee Esquivel [facility] Office: [phone] 4:36 PM on 03/02/2024 CC: MD Vee Aguilar, WATER SUPERVISOR-INTERNATIONAL FLIGHT ATTENDANT 03/02/24 [id number] documented in this encounter [facility] 03-02-2024 Instructions LYUDMILA Quezada - 03/02/2024 9:45 AM EDT If you re looking for general health and wellness resources, please visit [email or web address] documented in this encounter [facility] 02-24-2024 Plan of care note ASSESSMENT AND PLAN Tin Arizmendi is a 38 year old female with PCOS Extensive counseling today as I assume care of this patient from Dr Menchaca. I counseled on diagnosis, risks, and treatment options I recommend that we rule out CAH and re-check thyroid and T levels. These labs have been ordered. The fact that she has not had a menses or despite a monitored cycle, trigger shot, calls into question whether the trigger worked or whether a true follicle had developed. I will have her do a round of provera to induce menses. In future cycles, I will have her get post trigger p4 to confirm ovulation has occurred. Also I don't feel that letrozole is doing much here, and I recommend we go straight to follistim in future SO cycles. We also discussed IVF given her increasing age. Plan given to patient: Next immediate steps: Take provera (double dose) for 7 days If period, then call to schedule saline ultrasound (details below), needs to be scheduled between cycle day 6-11. On day of procedure, get blood drawn for lab work If no period, then call the office and we will order special blood work to assess what might be happening If period, then can proceed with additional cycle. This can be done concurrently with the diagnostic testing above. I recommend we forgo letrozole and start FSH 75 units beginning on cycle day 3. I also want to check progesterone and hcg levels after trigger. Otherwise can keep protocol the same. Follow up in 3-6 months if no to change plans, discuss IVF etc. I have included some information about IVF below. [facility] 02-24-2024 Miscellaneous Notes ASSESSMENT AND PLAN Tin Arizmendi is a 38 year old female with PCOS Extensive counseling today as I assume care of this patient from Dr Menchaca. I counseled on diagnosis, risks, and treatment options I recommend that we rule out CAH and re-check thyroid and T levels. These labs have been ordered. The fact that she has not had a menses or despite a monitored cycle, trigger shot, calls into question whether the trigger worked or whether a true follicle had developed. I will have her do a round of provera to induce menses. In future cycles, I will have her get post trigger p4 to confirm ovulation has occurred. Also I don't feel that letrozole is doing much here, and I recommend we go straight to follistim in future SO cycles. We also discussed IVF given her increasing age. Plan given to patient: Next immediate steps: Take provera (double dose) for 7 days If period, then call to schedule saline ultrasound (details below), needs to be scheduled between cycle day 6-11. On day of procedure, get blood drawn for lab work If no period, then call the office and we will order special blood work to assess what might be happening If period, then can proceed with additional cycle. This can be done concurrently with the diagnostic testing above. I recommend we forgo letrozole and start FSH 75 units beginning on cycle day 3. I also want to check progesterone and hcg levels after trigger. Otherwise can keep protocol the same. Follow up in 3-6 months if no to change plans, discuss IVF etc. I have included some information about IVF below. documented in this encounter [facility] 02-23-2024 Instructions Michel Joseph MD - 02/23/2024 4:05 PM EDT Images from the original note were not included. Next immediate steps: Take provera (double dose) for 7 days If period, then call to schedule saline ultrasound (details below), needs to be scheduled between cycle day 6-11. On day of procedure, get blood drawn for lab work If no period, then call the office and we will order special blood work to assess what might be happening If period, then can proceed with additional cycle. This can be done concurrently with the diagnostic testing above. I recommend we forgo letrozole and start FSH 75 units beginning on cycle day 3. I also want to check progesterone and hcg levels after trigger. Otherwise can keep protocol the same. Follow up in 3-6 months if no to change plans, discuss IVF etc. I have included some information about IVF below. SALINE INFUSION SONOGRAPHY (SIS) is an office procedure used to evaluate the intrauterine cavity or inside lining of the uterus. This is achieved by intrauterine infusion of a saline solution during transvaginal ultrasound (an ultrasound using a vaginal probe). A small, flexible catheter is passed through the cervix (the opening of the uterus) into the uterus so the sterile water can distend the uterine skinner and allow visualization of the uterine cavity. PRIOR TO THE PROCEDURE: You may wish to take an over the counter medication such as Tylenol, Advil, or Motrin. You may exparience a small amount of menstrual like cramping with the procedure, and this will help minimize the discomfort. NOTIFY YOUR PHYSICIAN IF YOU HAVE MITRAL VALVE PROLAPSE, JOINT REPLACEMENT, OR ROUTINELY TAKE ANTIBIOTICS FOR DENTAL PROCEDURES, ANTIBIOTICS MAY BE NECESSARY FOR THIS PROCEDURE WELL. AFTER THE PROCEDURE: A small amount of bleeding, cramping, or watery discharge is expected. You may use tampons or pads. DO NOT leave the tampons in longer than 3 hours at a time. Tylenol, Advil, or Motrin may be used for abdominal cramping or discomfort you may experience. Refrain from douching or intercourse for 48 hours. Showers or tub baths are allowed. However, refrain from hot tubs and swimming for 48 hours. NOTIFY YOUR PHYSICIAN'S OFFICE IF YOU HAVE A TEMPERATURE OF 100 DEGREES OR HIGHER, OR IF YOU EXPERIENCE SEVERE ABDOMINAL PAIN, OR HEAVY BLEEDING. YOUR PHYSICIAN WILL NOTIFY YOU OF YOUR TEST RESULTS Next steps if we decide to do IVF: Meet again to discuss it more fully Review materials I'm sending today Get AMH drawn (if not done already) Receive financial counseling and clearance - you should be contacted within 1 week Meet with IVF nurses IVF nurse teach (it can take up to a week to get this scheduled if they are really busy). Call to schedule the IVF nurse teach. Once you have met with the IVF nurses then you will get on the schedule and the timeline will solidify somewhat. However, you cannot schedule a meeting with the IVF nurses until the financial team has cleared you to proceed. Financial counseling Our financial team meets with patients to review cost breakdown for IVF; topics that are discussed include pricing and financing. Please call the office [phone] to set up an appointment if you have not heard from our team within 1 week. IVF information Some ayala things to remember about IVF: As we discussed, it can take multiple cycles of IVF to get an embryo. Alternately, sometimes we get multiple embryos from 1 round, so even if first embryo doesn't take , you don't have to re-do the whole process, just thaw another embryo from the freezer. Success rates based on age (from [facility] website, [facility] data = Clinic ; accessed 03/05/23): While ovarian stimulation and egg retrieval is usually completed in less than 2 weeks, the entire process of preparation to positive test takes several months from start to finish (often 3-6 months). Here is a breakdown of that process: AYALA: SQ = subcutaneous injection (small needles, barely feel them) IM = intramuscular injection 1. Prep phase - ~1-3 months Getting financial information and clearance Labs - AMH (egg count), STD tests, genetic carrier screening (recessive conditions like cystic fibrosis), etc IVF nurse teaching - go over medications, injections, protocol in detail, get on the SCHEDULE Wait list for new baseline (depending on demand, this could involve 1-2 months of waiting) control or oral estrogen 1-2 weeks 2. Ovarian stimulation - ~2 weeks Baseline scan / labs - make sure no follicles already forming FSH (follicle stimulating hormone) - take between 75-450 units/day ($1 / unit) SQ Labs and scans every 1-4 days About 5-6 days in, we start antagonist to prevent ovulation SQ Once group of follicles (cysts) reach about 18-22 mm in size, then plan trigger SQ 3. Egg retrieval - 5-10 min 36 hours after trigger Sperm sample - can have frozen backup but not required Asleep / light sedation You'll know number of eggs before you go home that day 4. IVF (in vitro fertilization) Next day we'll let you know how many eggs are mature, how many fertilized Almost every day you'll get an update on embryos Day 5-6 embryos blastocysts - ~30-65% chance of /live per embryo depending on age If desired - biopsy embryos and can send for genetic testing or chromosome screening Freeze all embryos (in most cases) We meet to discuss the egg retrieval and cycle, IVF, and next steps 5. Embryo transfer cycle Oral estrogen, monitoring scans to make sure lining looks good 1 week before, progesterone (IM) Transfer 1 embryo at a time if genetically tested (up to 2 at a time if untested) testing 2 weeks later Continue progesterone until 8-10 weeks of documented in this encounter [facility] 02-23-2024 Note HNO ID: [id number] Author: MICHEL JOSEPH MD Service: ? Author Type: Physician Type: Progress Notes Filed: 02/24/2024 11:33 Note Text: REPRODUCTIVE ENDOCRINOLOGY AND INFERTILITY RETURN PATIENT CLINIC NOTE SERVICE DATE: 02/23/2024 SERVICE TIME: 3:33 PM NAME: Tin Airzmendi FERTILITY HISTORY 38yo [id number] with PCOS, BMI 44.77 Note copied from prior visit dated 12/02/[address] Menchaca Provera 10 mg X 10 days to induce menses MET 850 mg BID daily LET 10 mg CD 3-7 DEX 0.5 mg CD3-OPK+ FSH 75 daily (start CD 6) through trigger injection Maximum 3-4 ovulatory cycles; thereafter, if no conception has occurred, schedule a virtual visit to discuss additional work up, if any, and future treatment options Hx Missed requiring suction DANDC 10/30/23 BMI 44.77 INTERVAL UPDATE/PROGRESS Provera did not induce menses. Has not have a period Oct 2023. Previously had menses after doing the letrozole and trigger shot with timed intercourse (tried 2x) 5 cycles of protocol follistim, letrozole, trigger shot, and timed intercourse. Open to trying this cycle again. LABS/IMAGIN02/20/23: AMH 12.50 ASSESSMENT AND PLAN Tin Arizmendi is a 38 year old female with PCOS (E28.1) Androgen excess (primary encounter diagnosis) Plan: TESTOSTERONE, TOTAL, THYROID STIMULATING HORMONE, PROGESTERONE, HYDROXYPROGESTERONE-17 (Z31.41) Fertility testing Plan: SONOHYSTEROGRAPHY (SIS) US [facility]I Extensive counseling today as I assume care of this patient from Dr Menchaca. I counseled on diagnosis, risks, and treatment options I recommend that we rule out CAH and re-check thyroid and T levels. These labs have been ordered. The fact that she has not had a menses or despite a monitored cycle, trigger shot, calls into question whether the trigger worked or whether a true follicle had developed. I will have her do a round of provera to induce menses. I want to ensure no retained tissue or adhesions from her DANDC. In future cycles, I will have her get post trigger p4 to confirm ovulation has occurred. Also I don't feel that letrozole is doing much here, and I recommend we go straight to follistim in future SO cycles. We also discussed IVF given her increasing age. Plan given to patient: Next immediate steps: Take provera (double dose) for 7 days If period, then call to schedule saline ultrasound (details below), needs to be scheduled between cycle day 6-11. On day of procedure, get blood drawn for lab work If no period, then call the office and we will order special blood work to assess what might be happening If period, then can proceed with additional cycle. This can be done concurrently with the diagnostic testing above. I recommend we forgo letrozole and start FSH 75 units beginning on cycle day 3. I also want to check progesterone and hcg levels after trigger. Otherwise can keep protocol the same. Follow up in 3-6 months if no to change plans, discuss IVF etc. I have included some information about IVF below. I spent a total of 40 minutes face to face with the patient. Greater than 50% of the time was spent counseling and coordinating the care based on my plan and assessment as noted. Michel Joseph MD [facility] 02-23-2024 History of Present illness Narrative Images from the original note were not included. REPRODUCTIVE ENDOCRINOLOGY AND INFERTILITY RETURN PATIENT CLINIC NOTE SERVICE DATE: 02/23/2024 SERVICE TIME: 3:33 PM NAME: Tin Arizmendi FERTILITY HISTORY 38yo [id number] with PCOS, BMI 44.77 Note copied from prior visit dated 12/02/[address] Menchaca Provera 10 mg X 10 days to induce menses MET 850 mg BID daily LET 10 mg CD 3-7 DEX 0.5 mg CD3-OPK+ FSH 75 daily (start CD 6) through trigger injection Maximum 3-4 ovulatory cycles; thereafter, if no conception has occurred, schedule a virtual visit to discuss additional work up, if any, and future treatment options Hx Missed requiring suction D&C 10/30/23 BMI 44.77 INTERVAL UPDATE/PROGRESS Provera did not induce menses. Has not have a period Oct 2023. Previously had menses after doing the letrozole and trigger shot with timed intercourse (tried 2x) 5 cycles of protocol follistim, letrozole, trigger shot, and timed intercourse. Open to trying this cycle again. LABS/IMAGIN02/20/23: AMH 12.50 ASSESSMENT AND PLAN Tin Arizmendi is a 38 year old female with PCOS (E28.1) Androgen excess (primary encounter diagnosis) Plan: TESTOSTERONE, TOTAL, THYROID STIMULATING HORMONE, PROGESTERONE, HYDROXYPROGESTERONE-17 (Z31.41) Fertility testing Plan: SONOHYSTEROGRAPHY (SIS) US WHI Extensive counseling today as I assume care of this patient from Dr Menchaca. I counseled on diagnosis, risks, and treatment options I recommend that we rule out CAH and re-check thyroid and T levels. These labs have been ordered. The fact that she has not had a menses or despite a monitored cycle, trigger shot, calls into question whether the trigger worked or whether a true follicle had developed. I will have her do a round of provera to induce menses. I want to ensure no retained tissue or adhesions from her D&C. In future cycles, I will have her get post trigger p4 to confirm ovulation has occurred. Also I don't feel that letrozole is doing much here, and I recommend we go straight to follistim in future SO cycles. We also discussed IVF given her increasing age. Plan given to patient: Next immediate steps: Take provera (double dose) for 7 days If period, then call to schedule saline ultrasound (details below), needs to be scheduled between cycle day 6-11. On day of procedure, get blood drawn for lab work If no period, then call the office and we will order special blood work to assess what might be happening If period, then can proceed with additional cycle. This can be done concurrently with the diagnostic testing above. I recommend we forgo letrozole and start FSH 75 units beginning on cycle day 3. I also want to check progesterone and hcg levels after trigger. Otherwise can keep protocol the same. Follow up in 3-6 months if no to change plans, discuss IVF etc. I have included some information about IVF below. I spent a total of 40 minutes face to face with the patient. Greater than 50% of the time was spent counseling and coordinating the care based on my plan and assessment as noted. Michel Joseph MD documented in this encounter [facility] 02-15-2024 Telephone encounter Note Did call patient and LVM. Also sent patient a [employer] message. Postponing to ensure scheduling. [facility] 02-15-2024 Miscellaneous Notes Did call patient and LVM. Also sent patient a [employer] message. Postponing to ensure scheduling. please assist w appt for colposcopy. We can numb the area Called and spoke with pt in depth. She says she is aware of her results but does not want to do a colposcopy. Reports she has had this done twice and it was a bad experience. She says she would either like something to numb the area or have this done in ASC. Please advise. ----- Message from Pepe Pope MD sent at 02/08/2024 4:34 PM EDT ----- Needs colposcopy documented in this encounter [facility] 02-15-2024 Telephone encounter Note please assist w appt for colposcopy. [facility] 02-15-2024 Telephone encounter Note We can numb the area [facility] Work Phone: 02-12-2024 Telephone encounter Note Called and spoke with pt in depth. She says she is aware of her results but does not want to do a colposcopy. Reports she has had this done twice and it was a bad experience. She says she would either like something to numb the area or have this done in ASC. Please advise. [facility] 02-12-2024 Telephone encounter Note ----- Message from Pepe Pope MD sent at 02/08/2024 4:34 PM EDT ----- Needs colposcopy [facility] 02-05-2024 Telephone encounter Note Called patient to report negative HCG level. Patient expressed frustration with needing another consult after just meeting with Dr. Menchaca. Responded with heart and listened to patient frustration. She is agreeable to wait. Nam Arias RN February 05, 2024 3:32 PM [facility] 02-05-2024 Miscellaneous Notes Called patient to report negative HCG level. Patient expressed frustration with needing another consult after just meeting with Dr. Menchaca. Responded with heart and listened to patient frustration. She is agreeable to wait. Nam Arias RN February 05, 2024 3:32 PM Pt requesting a blood hcg level, since full flow has not started, and she has only had some brown spotting. SO cycle Trigger/TI 01/10/,01/11,01/12. Pt said HPT was negative, and was questioning implantation bleeding . Hcg order placed. Ivy Gardner RN February 05, 2024 10:04 AM Patient states she called Thursday and has gotten no response documented in this encounter [facility] 02-05-2024 Telephone encounter Note Pt requesting a blood hcg level, since full flow has not started, and she has only had some brown spotting. SO cycle Trigger/TI 01/10/,01/11,01/12. Pt said HPT was negative, and was questioning implantation bleeding . Hcg order placed. Ivy Gardner RN February 05, 2024 10:04 AM [facility] 02-05-2024 Telephone encounter Note Patient states she called Thursday and has gotten no response [facility] 02-01-2024 Telephone encounter Note Pt states negative HPT from SO#5 cycle with TI. Pt states she has an appointment with Dr. Joseph, but hopes to do another SO cycle with next period. Will confirm plan with the doctor and let the patient know recommendations. Pt verbalized understanding. Ivy Gardner RN February 01, 2024 3:04 PM [facility] 02-01-2024 Miscellaneous Notes Pt states negative HPT from SO#5 cycle with TI. Pt states she has an appointment with Dr. Joseph, but hopes to do another SO cycle with next period. Will confirm plan with the doctor and let the patient know recommendations. Pt verbalized understanding. Ivy Gardner RN February 01, 2024 3:04 PM Called the patient she verified her name and date of Patient did super ovulation no period not sure what to do Khurram Zendejas RN February 01, 2024 11:55 AM Unsure about cycle and has pressure but not cramping requests call back, started yesterday morning. documented in this encounter [facility] 02-01-2024 Telephone encounter Note Called the patient she verified her name and date of Patient did super ovulation no period not sure what to do Khurram Zendejas RN February 01, 2024 11:55 AM [facility] 02-01-2024 Telephone encounter Note Unsure about cycle and has pressure but not cramping requests call back, started yesterday morning. [facility] Work Phone: 01-21-2024 Note HNO ID: [id number] Author: PEPE POPE MD Service: ? Author Type: Physician Type: Progress Notes Filed: 01/21/2024 08:55 Note Text: Tin is a 38 year old who presents for an annual gynecologic exam without complaints. Menses: anovulation, regular with ovulation inducing agents. 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: Sexual Activity: Yes; Male Contraception: No contraception data on record PAST MEDICAL HISTORY Diagnosis Date Abnormal Pap smear of cervix Complication of anesthesia vomiting after waking up Essential hypertension Hirsutism PCOS (polycystic ovarian syndrome) Sleep apnea 2020 PAST SURGICAL HISTORY Procedure Laterality Date COLPOSCOPY INDUCED DILATION AND CURETTAGE 10/30/2023 DILATION AND CURETTAGE, SUCTION MISSED , 1ST TRIMESTER LITHOTRIPSY XTRCORP SHOCK WAVE 04/14/2005 Lithotripsy NEPHROLITHOTOMY REMOVAL STAGE 1 2004 NEPHROLITHOTOMY REMOVAL STAGE 1 2014 REMOVAL GALLBLADDER 2017 FAMILY HISTORY Problem Relation Age of Onset Diabetes Mother other (pcos) Mother Diabetes Father Obstructive Sleep Apnea Maternal Grandfather Stroke Maternal Grandfather Ovarian cancer No Family History Cervical Cancer No Family History Breast Cancer No Family History Diabetes Maternal Grandfather Diabetes Paternal Grandmother Cancer Maternal Grandmother lung-smoker Cancer Paternal Grandfather stomach SOCIAL HISTORY Social History Tobacco Use Smoking status: Former Packs/day: 1.00 Years: 17.00 Additional pack years: 0.00 Total pack years: 17.00 Types: Cigarettes Smokeless tobacco: Never Substance Use Topics Alcohol use: Not Currently Drug use: Never REVIEW OF SYSTEMS Abdomen: No abdominal pain, nausea, vomiting, diarrhea, or constipation. No bloating, early satiety, indigestion, or increased flatulence. Bladder: No dysuria, gross hematuria, urinary frequency, urinary urgency, or incontinence. Breast: No breast lumps, nipple d/c, overlying skin changes, redness or skin retraction. Allergies and current medication updated:Yes EXAM: BP 138/91 Pulse 66 Ht 5' 4 (1.63m) Wt 258 lb 2.5 oz (117.1kg) LMP 08/16/2023 BMI 44.29 kg/(m2). GENERAL: pleasant, female in no apparent distress HEENT: Normocephalic, atraumatic, mucus membranes moist, and no lesions NECK: Supple, full range of motion, no adenopathy, and thyroid normal DERMATOLOGY: Normal, without lesions, non-icteric, and non-hirsute BREAST: soft, non-tender, symmetric, no dominant mass, normal nipple-areolar complex, no lymphadenopathy, and no nipple discharge CHEST: Normal inspiratory effort ABDOMEN: soft, non-tender, and no masses PELVIC: external genitalia normal, normal Bartholin's glands, urethra, [place]'s glands, no vulvar lesions, no cervical lesions, good vaginal support, physiologic discharge present, normal appearing perineal body and perianal region BIMANUAL: uterus normal size, shape and consistency, no adnexal masses, and non-tender RECTOVAGINAL: deferred. NEURO: alert and oriented x3,exam grossly non-focal EXTREMITIES: normal ASSESSMENT/PLAN: 1) Health maintenance: Pap done with HPV. 2) Contraception: none. Contraceptive options reviewed and information provided. 3) STD screening: Accepted STD check for Gonorrhea and Chlamydia. 4) Follow up one year or sooner as needed Pepe Pope MD [facility] 01-21-2024 History of Present illness Narrative Tin is a 38 year old who presents for an annual gynecologic exam without complaints. Menses: anovulation, regular with ovulation inducing agents. 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: Sexual Activity: Yes; Male Contraception: No contraception data on record PAST MEDICAL HISTORY Diagnosis Date Abnormal Pap smear of cervix Complication of anesthesia vomiting after waking up Essential hypertension Hirsutism PCOS (polycystic ovarian syndrome) Sleep apnea 2020 PAST SURGICAL HISTORY Procedure Laterality Date COLPOSCOPY INDUCED DILATION AND CURETTAGE 10/30/2023 DILATION AND CURETTAGE, SUCTION MISSED , 1ST TRIMESTER LITHOTRIPSY XTRCORP SHOCK WAVE 04/14/2005 Lithotripsy NEPHROLITHOTOMY REMOVAL STAGE 1 2004 NEPHROLITHOTOMY REMOVAL STAGE 1 2014 REMOVAL GALLBLADDER 2017 FAMILY HISTORY Problem Relation Age of Onset Diabetes Mother other (pcos) Mother Diabetes Father Obstructive Sleep Apnea Maternal Grandfather Stroke Maternal Grandfather Ovarian cancer No Family History Cervical Cancer No Family History Breast Cancer No Family History Diabetes Maternal Grandfather Diabetes Paternal Grandmother Cancer Maternal Grandmother lung-smoker Cancer Paternal Grandfather stomach SOCIAL HISTORY Social History Tobacco Use Smoking status: Former Packs/day: 1.00 Years: 17.00 Additional pack years: 0.00 Total pack years: 17.00 Types: Cigarettes Smokeless tobacco: Never Substance Use Topics Alcohol use: Not Currently Drug use: Never REVIEW OF SYSTEMS Abdomen: No abdominal pain, nausea, vomiting, diarrhea, or constipation. No bloating, early satiety, indigestion, or increased flatulence. Bladder: No dysuria, gross hematuria, urinary frequency, urinary urgency, or incontinence. Breast: No breast lumps, nipple d/c, overlying skin changes, redness or skin retraction. Allergies and current medication updated:Yes EXAM: BP 138/91 Pulse 66 Ht 5' 4 (1.63m) Wt 258 lb 2.5 oz (117.1kg) LMP 08/16/2023 BMI 44.29 kg/(m^2). GENERAL: pleasant, female in no apparent distress HEENT: Normocephalic, atraumatic, mucus membranes moist, and no lesions NECK: Supple, full range of motion, no adenopathy, and thyroid normal DERMATOLOGY: Normal, without lesions, non-icteric, and non-hirsute BREAST: soft, non-tender, symmetric, no dominant mass, normal nipple-areolar complex, no lymphadenopathy, and no nipple discharge CHEST: Normal inspiratory effort ABDOMEN: soft, non-tender, and no masses PELVIC: external genitalia normal, normal [place]tholin's glands, urethra, [place]'s glands, no vulvar lesions, no cervical lesions, good vaginal support, physiologic discharge present, normal appearing perineal body and perianal region BIMANUAL: uterus normal size, shape and consistency, no adnexal masses, and non-tender RECTOVAGINAL: deferred. NEURO: alert and oriented x3,exam grossly non-focal EXTREMITIES: normal ASSESSMENT/PLAN: 1) Health maintenance: Pap done with HPV. 2) Contraception: none. Contraceptive options reviewed and information provided. 3) STD screening: Accepted STD check for Gonorrhea and Chlamydia. 4) Follow up one year or sooner as needed Pepe Pope MD documented in this encounter [facility] 01-11-2024 History of Present illness Narrative The patient is here today for follicular ultrasound and blood work. The patient reports no problems or complaints. Ultrasound and blood will be reviewed by the physician, the flow sheet will be updated and instructions will be communicated to the patient. Ivy Gardner RN Plan reviewed with pt and sent to my chart. Pt verbalized understanding of plan. Ivy Gardner RN January 11, 2024 1:45 PM documented in this encounter [facility] 01-08-2024 History of Present illness Narrative RN called patient, name and verified. Plan given for superov cycle per physician, see flowsheet for details. [employer] message sent. Medications reviewed and verified, instructions given. Patient denies any questions or concerns. Message sent to scheduling pool for next appt. Nilton Zhang RN January 08, 2024 12:47 PM The patient is here today for follicular ultrasound and blood work. The patient reports no problems or complaints. Ultrasound and blood will be reviewed by the physician, the flow sheet will be updated and instructions will be communicated to the patient. Nilton Zhang RN January 08, 2024 7:21 AM documented in this encounter [facility] 01-01-2024 Miscellaneous Notes Telephone Encounter Received page asking for call back. Called patient. Confirmed patient's name and date of over the phone. Tin Arizmendi is a 38 year old female undergoing SO # 5. Received call from [facility] as they had received prescription for Gonal-F and don't carry that medication and wanted to know if they could switch to Follistim. I confirmed that they could switch to Follistim for this patient. Nena Childs MD PGY-5 Reproductive Endocrinology and Infertility Fellow documented in this encounter [facility] 01-01-2024 History of Present illness Narrative Verified/corrected flowsheet with Dr. Joseph. RN called patient, name and verified. Plan given for IVF cycle per physician, see flowsheet for details. MyChart message sent. Medications reviewed and verified, instructions given. Patient denies any questions or concerns. Message sent to scheduling pool for next appt. Nilton Zhang RN January 01, 2024 1:48 PM The patient is here today for follicular ultrasound and blood work. The patient reports no problems or complaints. Ultrasound and blood will be reviewed by the physician, the flow sheet will be updated and instructions will be communicated to the patient. Nilton Zhang RN January 01, 2024 7:39 AM documented in this encounter [facility] 12-29-2023 Miscellaneous Notes Called patient to number listed, verified pt. Patient last provera was 12/12 She still has not had a period or any indication that a period is coming. Baseline scheduled for patient. Transferred to schedule with another MD to establish care. All questions answered. Pau Dorman RN December 29, 2023 3:15 PM Attempted to call patient. Left message for patient to call the office. Pau Dorman RN December 28, 2023 2:40 PM Pt ret call pls leave message on her my chart with her plan Attempted to call patient. Left message for patient to call the office. Pau Dorman RN December 28, 2023 9:38 AM Ivf Patient has not gotten period after taking medication documented in this encounter [facility] 12-26-2023 Miscellaneous Notes Patient called office and l/m on v/m. Office returned call patient has spam block on phone. Office call could not go through, office tried 3x documented in this encounter [facility] 12-26-2023 Telephone encounter Note Patient called office and l/m on v/m. Office returned call patient has spam block on phone. Office call could not go through, office tried 3x [facility] 12-23-2023 Miscellaneous Notes Patient called office and l/m on v/m. Office returned call and l/m on v/m documented in this encounter [facility] 12-23-2023 Telephone encounter Note Patient called office and l/m on v/m. Office returned call and l/m on v/m [facility] 12-02-2023 Note HNO ID: [id number] Author: DMITRY MENCHACA MD Service: ? Author Type: Physician Type: Progress Notes Filed: 12/13/2023 21:13 Note Text: REPRODUCTIVE ENDOCRINOLOGY AND INFERTILITY RETURN PATIENT CLINIC NOTE This is a virtual visit using Zoom. It required patient-provider interaction for the medical decision making as documented below. I have communicated my name and active licensure. The patient's identity and physical location were verified at the time of this visit. 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 Reason for visit: Follow Up Subjective: TEAGAN Arizmendi is a 38 year old woman, a , who presents for follow up. She was last seen in this clinic on 02/18/2023. 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 Allergies: ALLERGIES Allergen Reactions Amoxacillin [Amoxic* Hives Skin test is negative. Challenge pending Penicillins Hives Medications: Current Outpatient Medications Medication Sig medroxyPROGESTERone (PROVERA) 10 mg tablet Take 1 tablet by mouth once daily. dexAMETHasone (DECADRON) 0.5 mg tablet Take 1 tablet by mouth once daily. metFORMIN (GLUCOPHAGE) 850 mg tablet Take 1 tablet by mouth twice daily with meals. (Patient taking differently: Take 850 mg by mouth two times a day with meals. On hold for ) letrozole (FEMARA) 2.5 mg tablet Take 4 tablets by mouth once daily. metFORMIN (GLUCOPHAGE) 850 mg tablet Take 1 tablet by mouth two times a day. Follitropin Ila (GONAL-F [facility] REDI-JECT) 300/0.5 unit/mL pnij Inject 75 Units subcutaneously once daily. dexAMETHasone (DECADRON) 0.5 mg tablet Take 1 tablet by mouth once daily. spironolactone (ALDACTONE) 25 mg tablet Take 25 mg by mouth once daily. On hold for bupropion HCl (BUPROBAN ORAL) Take 150 mg by mouth once daily. (Patient not taking: Reported on 10/30/2023) No current facility-administered medications for this visit. Family History: Negative for breast, ovarian, uterine or colon cancer. family history includes Cancer in her maternal grandmother and paternal grandfather; Diabetes in her father, maternal grandfather, mother, and paternal grandmother; Obstructive Sleep Apnea in her maternal grandfather; Stroke in her maternal grandfather; pcos in her mother. Social History: Social History Tobacco Use Smoking status: Former Packs/day: 1.00 Years: 17.00 Additional pack years: 0.00 Total pack years: 17.00 Types: Cigarettes Smokeless tobacco: Never Substance Use Topics Alcohol use: Not Currently Drug use: Never The following portions of the patient's history were reviewed and updated as appropriate: allergies, current medications, past family history, past medical history, past social history, past surgical history and problem list. Review of Systems A >10 system ROS was reviewed and is otherwise negative, except as indicated in the chief complaint and/or HPI above if applicable. Objective: Physical Exam Constitutional: Well-developed and well-nourished. HEENT: Head normocephalic and atraumatic. Assessment: This is a 38 year old female with oligo-ovulation and difficulty conceiving. Plan: 1. Patient was counseled today regarding the factors that impact fertility including male factor, ovarian factor, tubal/uterine factor, cervical factor and unexplained. We reviewed her evaluation and treatment to date. 2. Fertility treatments including ovulation induction, intrauterine insemination and in vitro fertilization were discussed. 3. Treatment plan for patient is as follows: PLAN: MPA 10 mg X 10 days to induce menses MET 850 mg BID daily LET 10 mg CD 3-7 DEX 0.5 mg CD3-OPK+ FSH 75 daily (start CD 6) through trigger injection Maximum 3-4 ovulatory cycles; thereafter, if no conception has occurred, schedule a virtual visit to discuss additional work up, if any, and future treatment options I spent a total of 25 minutes on the date of the service which included preparing to see the patient, kimberli (more content not included)... [facility] 11-20-2023 History of Present illness Narrative Images from the original note were not included. Fina KITCHEN [facility] [id number] SUBJECTIVE: Patient ID: Tin Arizmendi is a 38 y.o. female. Pt is here to discuss triglyceridemia The following portions of the patient's history were reviewed and updated as appropriate: allergies, current medications, past family history, past medical history, past social history, past surgical history and problem list. REVIEW OF SYSTEMS: Review of Systems PHYSICAL EXAMINATION: There were no vitals filed for this visit. Physical Exam [id number] ASSESSMENT/PLAN: Tin was seen today for results. Diagnoses and all orders for this visit: PCOS (polycystic ovarian syndrome) - Lipid profile; Future Hypertriglyceridemia - Lipid profile; Future Follow-up: A1c, Lipid profile fastin in 4-6 weeks Low carb diet and triglyceridemia education given Fibrates , niacin and reservatrol are not indicated for Nutrition referral documented in this encounter [facility] 11-13-2023 Note HNO ID: [id number] Author: KOBI WEINER PA-C Service: ? Author Type: Physician Generator Repairer Type: Progress Notes Filed: 11/13/2023 13:50 Note Text: VIRTUAL VISIT PROGRESS NOTE This is a virtual visit. It required patient-provider interaction for the medical decision making as documented below. Patient name and birthday verified: Yes Location of patient: [place] Persons Present: patient I have communicated my name and active licensure. The patient's identity and physical location were verified at the time of this visit. 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 OB scan on 10/23/23--confirmed Missed AB Impression 1. An intrauterine gestational sac with a yolk sac is present. 2. A pole is present without cardiac activity. Discussed that these findings are consistent with early loss. Pre-Op/Pre-Procedure Diagnosis: Missed GA: 9 weeks EGA Post-Op/Post-Procedure Diagnosis: Same as pre-op diagnosis FINAL DIAGNOSIS A. Products of conception, dilation and curettage: - Chorionic villi and decidualized endometrium consistent with products of conception. Component Latest Ref Rng AND Units 09/17/2023 09/19/2023 11/07/2023 11/11/2023 hCG Quantitative, Blood <5.0 mIU/mL 73.5 (H) 206.3 (H) 31.0 (A) 8.7 (H) Pt states she had light bleeding for 10 days after the surgery. It stopped 3 days ago.had some pelvic pain, managed by heating pad and Tylenol for a few days. Currently patient denies any pelvic pain, SOB, chest pain, palpitation, fever/chills, abnormal vaginal discharge. Reports normal Urination and BM. Bleeding and pain precaution provided. OBJECTIVE: General: well nourished, in no distress ASSESSMENT AND PLAN F/u with Dr. Menchaca 12/02/23 [facility] [address]. Menchaca SIGNATURE: Kobi Weiner PA-C PATIENT NAME: Tin Arizmendi DATE: November 13, 2023 TIME: 12:14 PM PAGER/CONTACT #: I spent a total of 20 minutes on the date of the service which included preparing to see the patient, completing clinical documentation, counseling and educating the patient/family/caregiver, independently interpreting results (not separately reported), and communicating results to the patient/family/caregiver. [facility] 11-13-2023 History of Present illness Narrative VIRTUAL VISIT PROGRESS NOTE This is a virtual visit. It required patient-provider interaction for the medical decision making as documented below. Patient name and birthday verified: Yes Location of patient: [place] Persons Present: patient I have communicated my name and active licensure. The patient's identity and physical location were verified at the time of this visit. 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 OB scan on 10/23/23--confirmed Missed AB Impression 1. An intrauterine gestational sac with a yolk sac is present. 2. A pole is present without cardiac activity. Discussed that these findings are consistent with early loss. Pre-Op/Pre-Procedure Diagnosis: Missed GA: 9 weeks EGA Post-Op/Post-Procedure Diagnosis: Same as pre-op diagnosis FINAL DIAGNOSIS A. Products of conception, dilation and curettage: - Chorionic villi and decidualized endometrium consistent with products of conception. Component Latest Ref Rng & Units 09/17/2023 09/19/2023 11/07/2023 11/11/2023 hCG Quantitative, Blood <5.0 mIU/mL 73.5 (H) 206.3 (H) 31.0 (A) 8.7 (H) Pt states she had light bleeding for 10 days after the surgery. It stopped 3 days ago.had some pelvic pain, managed by heating pad and Tylenol for a few days. Currently patient denies any pelvic pain, SOB, chest pain, palpitation, fever/chills, abnormal vaginal discharge. Reports normal Urination and BM. Bleeding and pain precaution provided. OBJECTIVE: General: well nourished, in no distress ASSESSMENT & PLAN F/u with Dr. Menchaca 12/02/23 [facility] [address] Menchaca SIGNATURE: Kobi Weiner PA-C PATIENT NAME: Tin Arizmendi DATE: November 13, 2023 TIME: 12:14 PM PAGER/CONTACT #: I spent a total of 20 minutes on the date of the service which included preparing to see the patient, completing clinical documentation, counseling and educating the patient/family/caregiver, independently interpreting results (not separately reported), and communicating results to the patient/family/caregiver. documented in this encounter [facility] 11-06-2023 Miscellaneous Notes Called patient regarding mychart. Need to follow HCG down post D&C. Letter sent for patient to get at [facility] tomorrow. Also placed standing orders. On televisit for Thursday 11/09 to review and follow up with patient. Nam Arias RN November 06, 2023 10:22 AM S/p D&C 10/30 ASSESSMENT/PLAN: hCG weekly, till <5 Pt has a letter order in the chart. Faxing it to [facility] as well. Kobi Weiner PA-C November 06, 2023 10:32 AM documented in this encounter [facility] 11-04-2023 History of Present illness Narrative Images from the original note were not included. [id number] [place] [address] Subjective: Tin Arizmendi is a 37 y.o. female who presents for an Annual Wellness exam. 37 yo WF with wellness ( recently lost a due to no heart beat), sees reproductive endocrinology for attempting with PCOS, pt wish to continue nonsmoking and avoiding ethanol and off all meds, pt is tring get physically activ The following portions of the patient's history were reviewed and updated as appropriate: medications, allergies, past medical history, past surgical history, social history, family history and immunization history Vitals: Vitals: 11/04/23 0827 BP: 136/82 BP Site: Left Arm BP Postition: Sitting BP CUFF SIZE: M (9-13 inches) Pulse: 76 Resp: 16 Temp: (!) 35.9 C (96.6 F) TempSrc: Tympanic Weight: 116.3 kg (256 lb 8 oz) Height: 162.6 cm (5' 4 ) History: There are no problems to display for this patient. Past Medical History: Diagnosis Date Hx of lithotripsy 2004, 2013 Moderate obstructive sleep apnea 08/30/2020 AHI 20/11 min O2 78% PCOS (polycystic ovarian syndrome) Past Surgical History: Procedure Laterality Date CHOLECYSTECTOMY LITHOTRIPSY 2004, 2013 Family History Problem Relation Age of Onset Hypertension Mother Diabetes Father Lung cancer Maternal Grandmother Diabetes Maternal Grandfather Diabetes Paternal Grandmother Social History Tobacco Use Smoking status: Former Types: Cigarettes Smokeless tobacco: Never Substance Use Topics Alcohol use: No Allergies: Allergies Allergen Reactions Amoxil [Amoxicillin] Penicillins Immunization History Administered Date(s) Administered H1N1 Nasal 07/24/2009 Influenza, Injectable, quadrivalent (PF) 07/27/2018, 05/29/2020, 06/02/2020 Review of Systems: Review of Systems Constitutional: Negative. Respiratory: Negative. Cardiovascular: Negative. Gastrointestinal: Negative. Genitourinary: Negative. Neurological: Negative. Psychiatric/Behavioral: Negative. Objective: BP 136/82 (BP Site: Left Arm, BP Postition: Sitting, BP CUFF SIZE: M (9-13 inches)) Pulse 76 Temp (!) 35.9 C (96.6 F) (Tympanic) Resp 16 Ht 162.6 cm (5' 4 ) Wt 116.3 kg (256 lb 8 oz) BMI 44.03 kg/m Physical Exam Assessment/Plan: Tin was seen today for annual exam. Diagnoses and all orders for this visit: Routine general medical examination at a health care facility - CBC auto differential; Future - Comprehensive metabolic panel; Future - Lipid profile; Future Plan Outpatient Medications Prior to Visit Medication Sig Dispense Refill buPROPion SR (WELLBUTRIN SR) 150 mg 12 hr tablet Take 1 tablet (150 mg total) by mouth in the morning and 1 tablet (150 mg total) before bedtime. (Patient not taking: Reported on 11/04/2023) 180 tablet 1 cetirizine (ZyrTEC) 10 mg tablet Take 1 tablet (10 mg total) by mouth daily. (Patient not taking: Reported on 11/04/2023) 30 tablet 2 cinnamon bark (CINNAMON ORAL) Take by mouth daily. (Patient not taking: Reported on 11/03/2022) dexAMETHasone (DECADRON) 0.5 mg tablet Take 1 tablet (0.5 mg total) by mouth in the morning. cycle. (Patient not taking: Reported on 11/04/2023) ergocalciferol (DRISDOL) 1,250 mcg (50,000 unit) capsule Take 1 capsule by mouth once a week (Patient not taking: Reported on 11/04/2023) 12 capsule 0 letrozole (FEMARA) 2.5 mg chemo tablet Take 3 tablets by mouth daily cycle (Patient not taking: Reported on 11/04/2023) medroxyPROGESTERone (PROVERA) 10 mg tablet Take 1 tablet (10 mg total) by mouth in the morning. (Patient not taking: Reported on 11/04/2023) metFORMIN (GLUCOPHAGE) 850 mg tablet Take 2 tablets (1,700 mg total) by mouth in the morning. (Patient not taking: Reported on 11/04/2023) NON FORMULARY Berberine daily (Patient not taking: Reported on 11/03/2022) NON FORMULARY Inistol /vitex daily (Patient not taking: Reported on 11/04/2023) omeprazole (PriLOSEC) 20 mg capsule Take 1 capsule (20 mg total) by mouth daily. (Patient not taking: Reported on 11/04/2023) 30 capsule 1 spironolactone (ALDACTONE) 25 mg tablet TAKE 1 TABLET BY MOUTH IN THE MORNING (Patient not taking: Reported on 11/04/2023) 90 tablet 1 triamcinolone (KENALOG) 0.1 % cream Apply 1 application topically 2 (two) times a day. (Patient not taking: Reported on 11/04/2023) 45 g 5 ZINC ORAL Take by mouth. (Patient not taking: Reported on 11/04/2023) No facility-administered medications prior to visit. Follow Up: vitamin restart PA encouraged Labs ordered documented in this encounter [facility] 10-30-2023 Note HNO ID: [id number] Author: RU COOPER RN Service: ? Author Type: Registered Nurse Type: Nursing Progress Note Filed: 10/30/2023 14:12 Note Text: Patient dressed self [facility] 10-30-2023 Note HNO ID: [id number] Author: DOROTHY BURKETT APRN.CRNA Service: Anesthesiology Author Type: Nurse Bottler Helper Type: Anesthesia Procedure Notes Filed: 10/30/2023 12:07 Note Text: ANESTHESIOLOGY PROCEDURE NOTE Airway General Information Procedure Start Time/Medication Administration: 10/30/2023 12:00 PM Patient location during procedure: OR Timeout Performed Pre-procedure: timeout performed Consent Obtained: Yes Patient identity confirmed: arm band Staffing Anesthesiologist: Jarrett Cordova MD PARI MUTUEL CLERK: Dorothy Burkett APRN.PARI MUTUEL CLERK Performed by: anesthesiologist Indications and Patient Condition Indications for airway management: anesthesia and airway protection Preoxygenated: yes anesthesia circuit Patient position: sniffing Method: asleep Difficult Mask: No Final Airway Details Final airway type: supraglottic airway Number of attempts at approach: 1 Ventilation between attempts: BVM Final Supraglottic Airway: i-gel Size 4 Seal Adequate: yes Airway not difficult SIGNATURE: Dorothy Burkett APRN.PARI MUTUEL CLERK PATIENT NAME: Tin Arizmendi DATE: October 30, 2023 TIME: 12:06 PM CSN: [id number] [facility] 10-29-2023 Miscellaneous Notes Called patient left message to confirm surgery time documented in this encounter [facility] 10-23-[address] Griffiths requested to notify [facility] of pt loss confirmed via OB US today 10/23 Called LOUISA, notified nurse of pt loss. Jennifer Guevara RN documented in this encounter [facility] 10-22-2023 Miscellaneous Notes Addended by: MARK ANTHONY HERNANDEZ on: 10/22/2023 11:18 AM Modules accepted: Orders documented in this encounter [facility] 10-16-2023 History of Present illness Narrative Name: iTn Arizmendi Date/Time of Service:10/16/2023 11:02 AM :1985 Age: 37 y.o. Chief Complaint Chief Complaint Patient presents with Initial Visit Tin Arizmendi is a 37 y.o. at 8w5d with a working estimated date of delivery of 05/22/2024, by Last Menstrual Period who presents for an initial visit. OB History Para Term AB Living 1 SAB IAB Ectopic Multiple Live Births # Outcome Date GA Lbr Lang/2nd Weight Sex Delivery Anes PTL Lv 1 Current Past Medical / Surgical History Past Medical History: Diagnosis Date Hypertension (CMS/HCC) PCOS (polycystic ovarian syndrome) Past Surgical History: Procedure Laterality Date CHOLECYSTECTOMY LITHOTRIPSY Family History Family History Problem Relation Name Age of Onset Diabetes Mother Diabetes Father Urban Hypertension Father Urban Cancer Maternal Grandmother Cheri Diabetes Maternal Grandfather Simeon Cancer Paternal Grandfather Yair Hypertension Paternal Grandfather Yair ALS Other Social History reports that she quit smoking about 2 weeks ago. Her smoking use included cigarettes. She has never used smokeless tobacco. She reports that she does not currently use alcohol. She reports that she does not use drugs. Social History Tobacco Use Smoking Status Former Types: Cigarettes Quit date: 09/28/2023 Years since quittin.0 Smokeless Tobacco Never MEDICATIONS: No current outpatient medications on file prior to visit. No current facility-administered medications on file prior to visit. Allergies Allergies Allergen Reactions Penicillin G Rash Patient reports nausea and no vomiting. Discussed smaller meals, honey products, OTC Vitamin B6 50mg BID and Unisom 25mg BID Patient reports taking daily vitamin. Genetic and Chromosomal testing discussed. Last PAP: 01/14/23 Neg ASSESSMENT / PLAN Labs Ordered. Patient had labs drawn in office today. Appointments scheduled for OBUS 10/21 and with PPJ on 11/0510/16/2023 11:02 AM documented in this encounter [facility] 09-18-2023 Note HNO ID: [id number] Author: KOBI WEINER PA-C Service: ? Author Type: Physician Generator Repairer Type: Progress Notes Filed: 09/18/2023 14:54 Note Text: REPRODUCTIVE ENDOCRINOLOGY AND INFERTILITY New SERVICE DATE: 09/18/2023 SERVICE TIME: 11:00 AM NAME: Tin Arizmendi VIRTUAL VISIT PROGRESS NOTE This is a virtual visit. It required patient-provider interaction for the medical decision making as documented below. Patient name and birthday verified: Yes Location of patient: [place] Persons Present: patient I have communicated my name and active licensure. The patient's identity and physical location were verified at the time of this visit. 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 Reason for visit: new , next steps 0 0 0 History of ectopic: No History of SAB: No History of pelvic/abdominal surgeries: Yes Cholecystectomy LMP 08-16-23, fertility medications used this cycle: letrozole fsh dex , date of LH surge: trigger 08-29-23, IUI done: none Blood type: O, POS Blood type: O, POS, rubella: Immune , varicella: Immune hCG levels: Component Latest Ref Rng AND Units 09/15/2023 09/17/2023 hCG Quantitative, Blood <5.0 mIU/mL 31.5 (H) 73.5 (H) Dating: Currently 4w4d based off of ovulation . Symptoms: Pain: no, just intermittent cramping Bleeding: none Nausea/Vomiting: none Current Medications: Taking PNV: taking Reviewed history, intake and most recent plan from primary [facility] provider. Assessment: Plan: further labwork needed: 09/21 scan scheduled: 10/05, [place], 9:30am medications to discontinue: spironolactone Schedule with OB: will schedule. Pt requested Progesterone level checked Vit D lab ordered, due to h/o low Vit D Kobi Weiner PA-C September 18, 2023 11:00 AM Please schedule the patient for the following- Location: [place] Provider: Nurse Visit type: OB scan Reason for visit/appointment notes: Date: 10/05 Time (requested): 9:30am If slot is full, please schedule the closest open slot. Call to patient needed: no I spent a total of 20 minutes on the date of the service which included preparing to see the patient, completing clinical documentation, counseling and educating the patient/family/caregiver, ordering medications, tests, or procedures, independently interpreting results (not separately reported), communicating results to the patient/family/caregiver, and care coordination (not separately reported). To patients reading this note: Please be advised the primary purpose of this note is for me to communicate with myself and other members of your medical team. Standard sentence structure is not always used. Medical terminology and medical abbreviations may be used. There may be grammatical and typographical errors missed in proofreading. [facility] 09-15-2023 Miscellaneous Notes Patient recently found out she is , asking if she should continue taking her medications. Please advise Would stop all rx meds until reevaluated by obgyn Left message for patient advising of DTD recommendation. [facility] encounter Note Patient recently found out she is , asking if she should continue taking her medications. Please advise [facility] 09-15-2023 Telephone encounter Note Would stop all rx meds until [facility]evaluated [facility]gyn [facility] 09-15-2023 Telephone encounter Note Left message for patient advising of DTD recommendation. [facility]25[facility]2023 History of Present illness Narrative The patient is here today for follicular ultrasound and blood work. The patient reports no problems or complaints. Ultrasound and blood will be reviewed by the physician, the flow sheet will be updated and instructions will be communicated to the patient. Mary Ann Kirkland RN RN called patient, name and verified. Plan given for IVF cycle per physician, see flowsheet for details. MyChart message sent. Medications reviewed and verified, instructions given. Patient denies any questions or concerns. Message sent to scheduling pool for next appt. Location: [facility] Visit type: SO IVF us/e2 Date: 08/28/23 @ 0700 Mary Ann Kirkland RN August 25, 2023 1:57 PM documented in this encounter [facility] 08-19-2023 History of Present illness Narrative RN called patient, name and verified. Plan given for IVF cycle per physician, see flowsheet for details. Multiplicomt message sent. Medications reviewed and verified, instructions given. Patient denies any questions or concerns. Message sent to scheduling pool for next appt. Nilton Zhang RN August 19, 2023 1:58 PM The patient is here today for follicular ultrasound and blood work. The patient reports no problems or complaints. Ultrasound and blood will be reviewed by the physician, the flow sheet will be updated and instructions will be communicated to the patient. Nilton Zhang RN August 19, 2023 7:36 AM documented in this encounter [facility] 08-17-2023 Miscellaneous Notes Unable to reach patient by phone, left message to return my call. Need plan from [facility] and message [facility] for SO with TIC. Plan to bring patient in on Thursday Mary Ann Kirkland August 17, 2023 4:34 PM Unable to reach patient by phone, but patient is scheduled for tomorrow. Same plan per Dr. Menchaca. She will need follow up with [facility] if not after this attempt. Request to schedulers. MC sent to patient. Mary Ann Kirkland RN August 18, 2023 11:30 AM Patient called stating she started her cycle yesterday so she is CD2 today. Wants to know when to schedule her baseline US documented in this encounter [facility] 08-11-2023 Instructions Otilia Camp MD - 08/11/2023 2:21 PM EST Skin test is negative to penicillin Please update me with results to proceed to part 3 of the test. Can use claritin or zyrtec during We can consider environmental testing in the future Can use saline for now for dryness documented in this encounter [facility] 08-11-2023 History of Present illness Narrative ANTIBIOTIC PERCUTANEOUS AND INTRADERMAL SKIN TESTING/ Mean Wheal & Flare Diameter (mm) Patient has been identified by name and date of : Yes, Provider Dr. Camp Date 08/11/2023 Time 1342 . Skin test applied by : Mary Ann Fernandez RN Interpreted By: Otilia Camp M.D. * Clinical significant reactions are regarded as a wheal diameter greater than or equal to 3 mm with a flare diameter greater or equal to 6mm. Time Prick test applied: 1342 Time Intradermal test applied: 1406 Time Prick test read: 1357 Time Intradermal test read: 1421 ALLERGENS CONTROL Normal Saline P: W = 0 mm F = 0 mm ID:W = 0 mm F = 0 mm PENICILLIN GK 10,000 UNITS/ML Pfizer, NDC: 7084-3641-55, Lot: [id number], exp: 08/13/2023 recon. exp:,1429 P: W = 0 mm F = 0 mm ID: W = 0 mm F = 0 mm PREPEN -(benzylpenicilloyl polylysine) full strength Allerquest, NDC: 65169-929-77, Lot: [id number], exp: 01/11/2025 P: W = 0 mm F = 0mm ID: W = 0 mm F = 0 mm AMPICILLIN SODIUM 12.5mg/ml Sandoz, NDC: 3443-5552-73, Lot: [id number], exp: 12/12/2024 recon. exp: 1430 P: W = 0 mm F = 0mm ID: W = 0 mm F = 0 mm HISTAMINE- positive control (Histamine base 6mg/ml)for Prick and 0.1 mg/ml for intradermal P: W = 5 mm F = 15 mm ID:W = 10 mm F = 40 mm 1400 Applied topical steroid to positive percutaneous allergy skin tests. Consultation requested by: Usha Julio MD for evaluation of allergy/immunology disorders Communication regarding today's visit will be done via electronic medical record, mail or fax to the referring physician. 37 yo female here for allergy evaluation As an , she broke out with hives. She is not aware of any other sx or how it was treated. Has avoided PCN and amoxicillin since then. She is currently planning on getting (pt currently awaiting confirmation). She reports having nasal congestion, sneezing and drainage. She attributes to being exposed to fumes from go kart during this past weekend. Otherwise, she notes spring and fall sx. She notes itchy eyes in the spring. She uses zyrtec prn which helps. No asthma. No cough, wheeze or shortness of breath. No past inhaler use. She has reflux which comes and goes. Uses tums prn PAST MEDICAL HISTORY Diagnosis Date Abnormal Pap smear of cervix Complication of anesthesia vomiting after waking up Essential hypertension Hirsutism NEGATIVE MEDICAL HISTORY PCOS (polycystic ovarian syndrome) Sleep apnea 2020 PAST SURGICAL HISTORY Procedure Laterality Date COLPOSCOPY LITHOTRIPSY XTRCORP SHOCK WAVE 04/18 Lithotripsy NEPHROLITHOTOMY REMOVAL STAGE 1 2004 NEPHROLITHOTOMY REMOVAL STAGE 1 2013 REMOVAL GALLBLADDER 2016 Current Outpatient Medications Medication Sig dexAMETHasone (DECADRON) 0.5 mg tablet Take 1 tablet by mouth once daily. Follitropin Beta (FOLLISTIM AQ) 300 unit/0.36 mL Inject 75 Units subcutaneously once daily. letrozole (FEMARA) 2.5 mg tablet Take 4 tablets by mouth once daily. On cycle days 3-7 metFORMIN (GLUCOPHAGE) 850 mg tablet Take 1 tablet by mouth twice daily with meals. spironolactone (ALDACTONE) 25 mg tablet Take 25 mg by mouth once daily. medroxyPROGESTERone (PROVERA) 10 mg tablet Take 1 tablet by mouth once daily. bupropion HCl (BUPROBAN ORAL) Take 150 mg by mouth once daily. No current facility-administered medications for this visit. 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 Family histoyr No atopy REVIEW OF SYSTEMS GEN: Good energy, good appetite, no weight change, no fevers, no chills HEENT: +headaches, + conjunctival pruritus, no rhinorrhea or +congestion, no nose bleeds, +snoring CV: No chest pain or tightness Lungs: No shortness of breath, no cough or wheezing GI: No Abdominal pain, no nausea, no vomiting, no diarrhea, no constipation : No dysuria, no polyuria MSK: No joint pain, no myalgias Neuro: No numbness, no tingling, no weakness Skin: No lesions, no rashes Lymph: No swollen or tender nodes Physical Exam Blood pressure 127/92, pulse 81, height 162.6 cm (5' 4 ), weight 116.4 kg (256 lb 11.6 oz), last menstrual period 07/15/2023, SpO2 98 %. General appearance: well appearing, in no acute distress, alert Derm: normal skin color, no rashes, no urticaria, no dermatographism HEENT: head normal, Anicteric sclera External ears normal Normal nasal turbinates, no purulent drainage + dry nares Normal oropharynx Lymph: Neck supple, no adenopathy Resp: Lungs clear to auscultation, no wheezing or rhonchi CV: RRR without murmur, no ectopy Neuro: Moves all extremities, sensation grossly intact Skin test negative to PCN Assessment and plan: Adverse drug reaction Skin test performed today given high chance of possible Will defer challenge given the timing of the test She will update me if or not. Dry nares/seasonal allergies Recommend using saline for now Ok to continue claritin or zyrtec prn during Consider further testing to inhalants in the future RTC for challenge Otilia Camp MD documented in this encounter [facility] 07-30-2023 History of Present illness Narrative The patient is here today for follicular ultrasound and blood work. The patient reports no problems or complaints. Ultrasound and blood will be reviewed by the physician, the flow sheet will be updated and instructions will be communicated to the patient. Mary Ann Czech RN called patient, name and verified. Plan given for SO cycle per physician, see flowsheet for details. MyChart message sent. Medications reviewed and verified, instructions given. Patient denies any questions or concerns. Message sent to scheduling pool for next appt. Mary Ann Kirkland July 30, 2023 1:37 PM Follicular Ultrasound Monitoring Visit Patient here for follicle monitoring and/or endometrial assessment, via ultrasound, and lab testing. See imaging documentation and LOUISA cycle flow sheet for final report and plan. Ultrasound images assessed for follicular growth and maturation as well as endometrial development. Hormone lab values assessed. Treatment plan discussed with Fertility Team and plan provided to patient via a Fertility member services coordinator. Dmitry Menchaca MD July 30, 2023 8:53 AM documented in this encounter [facility] 07-24-2023 History of Present illness Narrative Patient presents for pelvic ultrasound. See Imaging tab for results. Michel Joseph MD documented in this encounter [facility] 07-17-2023 History of Present illness Narrative The patient is here today for follicular ultrasound and blood work. The patient reports no problems or complaints. Ultrasound and blood will be reviewed by the physician, the flow sheet will be updated and instructions will be communicated to the patient. Emelia Rust RN Called patient with plan per flowsheet, went over medications and timing. Patient states understanding. Sent detailed MyChart message, request sent for appointment on 07/24 at [facility]. Emelia Rust RN July 17, 2023 2:25 PM documented in this encounter [facility] 06-26-2023 History of Present illness Narrative RN called patient, name and verified. Plan given for IVF cycle per physician, see flowsheet for details. MyChart message sent. Medications reviewed and verified, instructions given. Patient denies any questions or concerns. Message sent to scheduling pool for next appt. Nilton Zhang RN June 26, 2023 2:17 PM The patient is here today for follicular ultrasound and blood work. The patient reports no problems or complaints. Ultrasound and blood will be reviewed by the physician, the flow sheet will be updated and instructions will be communicated to the patient. Nilton Zhang RN June 26, 2023 7:58 AM documented in this encounter [facility] 05-28-2023 History of Present illness Narrative RN called patient, name and verified. Plan given for superovcycle per physician, see flowsheet for details. Odysii message sent. Medications reviewed and verified, instructions given. Patient questioned whether or not to stop dexmathasone. Message sent to Dr. Menchaca and he stated to stop dexmethasone. Nilton Zhang RN May 28, 2023 2:54 PM Follicular Ultrasound Monitoring Visit Patient here for follicle monitoring and/or endometrial assessment, via ultrasound, and lab testing. See imaging documentation and LOUISA cycle flow sheet for final report and plan. Ultrasound images assessed for follicular growth and maturation as well as endometrial development. Hormone lab values assessed. Treatment plan discussed with Fertility Team and plan provided to patient via a Fertility member services coordinator. Dmitry Menchaca MD The patient is here today for follicular ultrasound and blood work. The patient reports no problems or complaints. Ultrasound and blood will be reviewed by the physician, the flow sheet will be updated and instructions will be communicated to the patient. Nilton Zhang RN May 28, 2023 7:25 AM documented in this encounter [facility] 05-28-2023 Miscellaneous Notes Addended by: USHA JULIO on: 05/28/2023 12:20 PM Modules accepted: Orders documented in this encounter [facility] 05-27-2023 Miscellaneous Notes Return call. Confirmed with patient that she has enough meds and verbalizes understanding of plan. Nam Arias RN May 27, 2023 10:21 AM N- ivf Patient is needing the follistom shot documented in this encounter [facility] 05-27-2023 Miscellaneous Notes Updated flowsheet. Patient has trigger. Mary Ann Kirkland May 27, 2023 10:08 AM N- ivf Patient has trigger shot documented in this encounter [facility] 05-25-2023 History of Present illness Narrative The patient is here today for follicular ultrasound and blood work. The patient reports no problems or complaints. Ultrasound and blood will be reviewed by the physician, the flow sheet will be updated and instructions will be communicated to the patient. Mary Ann Kirkland Unable to reach patient by phone, sent Odysii message with instructions. Location: [facility] Visit type: SO monitoring us/e2 Date: 05/28/23 @ 0715 Mary Ann Kirkland May 25, 2023 2:13 PM documented in this encounter [facility] 05-21-2023 Miscellaneous Notes Called patient. Reviewed IVF plan and thigh injection sites. Discussed possibility of cancellation if no follicle growth at next appt. Pt. Verbalized understanding. Nilton Zhang RN May 21, 2023 3:14 PM Pt returning call from Nurse Nilton Crow documented in this encounter [facility] 05-21-2023 History of Present illness Narrative RN called patient, name and verified. Plan given for IVF cycle per physician, see flowsheet for details. Multiplicomt message sent. Medications reviewed and verified, instructions given. Patient denies any questions or concerns. Message sent to scheduling pool for next appt. Nilton Zhang RN May 21, 2023 1:26 PM Follicular Ultrasound Monitoring Visit Patient here for follicle monitoring and/or endometrial assessment, via ultrasound, and lab testing. See imaging documentation and LOUISA cycle flow sheet for final report and plan. Ultrasound images assessed for follicular growth and maturation as well as endometrial development. Hormone lab values assessed. Treatment plan discussed with Fertility Team and plan provided to patient via a Fertility member services coordinator. Dmitry Menchaca MD The patient is here today for follicular ultrasound and blood work. The patient reports no problems or complaints. Ultrasound and blood will be reviewed by the physician, the flow sheet will be updated and instructions will be communicated to the patient. Nilton Zhang RN May 21, 2023 7:48 AM documented in this encounter [facility] 05-13-2023 History of Present illness Narrative RN called patient, name and verified. Plan given for IVF cycle per physician, see flowsheet for details. [employer] message sent. Medications reviewed and verified, instructions given. Patient denies any questions or concerns. Message sent to scheduling pool for next appt. Nilton Zhang RN May 13, 2023 2:52 PM The patient is here today for follicular ultrasound and blood work. The patient reports no problems or complaints. Ultrasound and blood will be reviewed by the physician, the flow sheet will be updated and instructions will be communicated to the patient. Discussed with physician if patient should have dexamethasone 0.5 mg tablet daily from CD3 through trigger shot, as she did with her letrozole cycles. Message sent to Dr. Menchaca and he replied yes, patient is to take dexamethasone 0.5 mg tablet daily from cd 3 through trigger shot. Nilton Zhang RN May 13, 2023 7:51 AM documented in this encounter [facility] 05-12-2023 Miscellaneous Notes Returned phone call. Patient states she needs metformin reordered, she also needs to schedule baseline. Metformin reordered per patient request. Baseline appointment scheduled for 05/13 at 0715 at [facility]. Emelia Rust RN Patient calling again for refill of Metformin she requested on 04-23 she is out of medication. Also on day 2 today. Please call today. Patient called stating she started her cycle today. Also needs a refill on a medication that she requested back on 04/23 documented in this encounter [facility] 05-12-2023 Miscellaneous Notes Patient would like a call back Pt is cd2 needs to schedule baseline and prescriptions need to be filled documented in this encounter [facility] 04-21-2023 History of Present illness Narrative Per Dr. Menchaca: okay to proceed SO cycle: need at least 1 nature oocyte on RIGHT to proceed with trigger each month. FSH ordered to mdr. Pt will call with cd1 to schedule SO baseline. Ivymaria eugenia Gardner April 21, 2023 11:11 AM documented in this encounter [facility] 04-03-2023 History of Present illness Narrative Radiology Service Progress Note PATIENT NAME: Tin Arizmendi DATE OF SERVICE: April 03, 2023 TIME: 2:03 PM PATIENT IDENTITY VERIFICATION COMPLETED USING TWO (2) IDENTIFIERS: Name and Date of confirmed by patient verbally. FALL SCREENING: Has the patient had 2 falls in the last year or 1 fall with injury or currently using an Ambulatory Assistive Device (Walker, Cane, Wheelchair, Crutches, etc.)? No PATIENT GENDER DATA: Female. status: : No status: NO. PATIENT RELEVANT IMPLANT DATA REVIEWED: Yes RADIOLOGY DEPARTMENT: General X-ray: Exam(s) Completed: HSG PERIPHERAL IV DATA: Not applicable SIGNED BY: Simran Shin RT(R) April 03, 2023 2:03 PM documented in this encounter [facility] 03-09-2023 History of Present illness Narrative Tin Arizmendi is here today for a gonadotropin (superovulation) teaching session. Primary IVF Provider: Dr. Menchaca Reviewed side effects of gonadotropins including: OHSS, multiple gestation, ectopic pregnancies, adnexal torsion, gonadotropins and cancer and adverse outcomes. ASRM Gonadotrophin side effect and fact sheets reviewed and given to patient. PLAN: LET 10 mg CD 3-7, FSH 50-75 CD 8-Follicle US Medications taught: none at this time, will teach at baseline Medications ordered: FSH Pharmacy- [facility]- n/a [facility] Episode created: Yes Super ovulation # 1 G 0 P 0 AMH- 12.5 BMI- 43.1 Dx- PCOS Uterine Eval- needs HSG Blood type- needs drawn Semen Analysis- needs completed Rubella- Unknown Varicella- Unknown WW- 03/06 / PAP- 02/03 LMP- doesn't get cycles / Cycles- irregular Partner: Arun Arizmendi / N: needs to register To Do List: Needs to fax annual records Needs blood drawn Will schedule HSG with NMP after taking provera Partner needs to register Once registered will need SA Nely Cotton RN March 09, 2023 11:21 AM documented in this encounter [facility] 02-23-2023 Miscellaneous Notes Called the pharmacy and spoke with a pharmacist I advised clomid is correct dose Khurram Zendejas RN February 23, 2023 2:[address] [facility] pharmacy in [facility] called in regard to clarification on a medication they received. documented in this encounter [facility] 02-23-2023 Miscellaneous Notes Called the patient she verified her name and date of I advised the ivf nurses can not prescribe fsh until a nurse teach done patient verbalized an understanding Khurram Zendejas RN February 23, 2023 2:35 PM Patient returned call to office. Called the patient there was no answer Left a message to call the office Khurram Zendejas RN February 23, 2023 1:55 PM Needs fsh sent to pharmacy Routing to [place] ivf pool Khurram Zendejas RN February 23, 2023 1:29 PM GN SO: R, B, I, A, LO, FP of GN use in PCOS/IR LET 10 mg CD 3-7 FSH 50-75 CD 8-Follicle US Trigger injection TIC Maximum 3-4 ovulatory cycles; thereafter, if no conception has occurred, schedule a virtual visit to discuss additional work up, if any, and future treatment options documented in this encounter [facility] 02-23-2023 Miscellaneous Notes S/O CLEARED PER PATIENT PLAN COVERS HER US AND SHE IS DOING A TI NO IUI SCHEDULED AT THIS TIME PT IS CLEARED THANK YOU Bart Mckay Thank you,will do. I will advise once payment is collected. Pt is upset that communication with clinical staff is not good , she stated should not be this difficult. Confirm encounter message stated Patient called wanting to get the authorization process started for IVF Pt is actually requesting to get prescript for the FSH injection to the pharmacy so she can have them be sent to her home. If she needs Nurse teach virtual visit please confirm. If someone could please follow up with this patient. Thank you IVF PACKAGE#1 NOT CLEARED PLAN HAS NO INFERTILITY BENEFIT CALLED PT [facility] ALSO SENT MYCHART MESSAGE AND ESTIMATE LETTER. THANK YOU Patient called wanting to get the authorization process started for IVF. documented in this encounter [facility] 12-19-2022 History of Present illness Narrative Tin Michaelyayakeely is here today for a midcycle scan. Lead follicle: nothing larger than 10mm Plan: cancel cycle, follow up with Dr. Althea Orr APRN.CNP December 19, 2022 4:30 PM documented in this encounter [facility] 12-02-2022 Miscellaneous Notes Spoke with Tin to schedule midcycle scan. [facility] 11/30 Plan: Let 10/Dexa/Midycle/Trigger/TI #2 Verified that patient has medications needed for this cycle. Episode started, cycle flow sheet filled out. Scheduled midcycle scan: 12/15 Shyla Orr APRN.CNP December 02, 2022 8:49 AM This patient gave consent to this Medical Advice Message and is aware that it may result in a bill to their insurance, as well as the possibility of receiving a bill for a copay and/or deductible. They are an established patient, but are not seeking information exclusively about a problem treated during an in person or video visit in the last seven days. I did not recommend an in person or video visit within seven days of my reply. See the Odysii message reply for my assessment and plan. I spent a total of 10 minutes reviewing the patient's prior medical records and current request for medical advice, prescribing medications or ordering tests (if applicable), replying to the patient, and documenting the encounter. documented in this encounter [facility] 11-28-2022 Miscellaneous Notes The following approved medication requests have been transmitted electronically. Requested Prescriptions Signed Prescriptions Disp Refills metFORMIN (GLUCOPHAGE) 850 mg tablet 60 tablet 2 Sig: Take 1 tablet by mouth twice daily with meals. Authorizing Provider: MIGUEL LEVY APRN.CNP November 28, 2022 3:21 PM [facility] is pharmacy, please follow up with patient when called in . documented in this encounter [facility] 11-18-2022 Miscellaneous Notes This patient gave consent to this Medical Advice Message and is aware that it may result in a bill to their insurance, as well as the possibility of receiving a bill for a copay and/or deductible. They are an established patient, but are not seeking information exclusively about a problem treated during an in person or video visit in the last seven days. I did not recommend an in person or video visit within seven days of my reply. See the Odysii message reply for my assessment and plan. I spent a total of 5 minutes reviewing the patient's prior medical records and current request for medical advice, prescribing medications or ordering tests (if applicable), replying to the patient, and documenting the encounter. documented in this encounter [facility] 11-10-2022 History of Present illness Narrative Tin Arizmendi is here today for a midcycle scan. Lead follicle: 16 Plan: trigger 11/12 for TI Miguel Levy APRN.CNP November 10, 2022 12:21 PM documented in this encounter [facility] 11-07-2022 History of Present illness Narrative Tin Arizmendi is here today for a midcycle scan. Lead follicle: 12 Plan: repeat 11/10 Miguel Levy APRN.CNP November 07, 2022 10:20 AM Please schedule the patient for the following- Location: [facility] Provider: Nurse Visit type: Monitoring Reason for visit/appointment notes: Monitoring Date: 11/10 Time (requested): 0730 If slot is full, please schedule the closest open slot. Call to patient needed: no documented in this encounter [facility] 10-27-2022 Miscellaneous Notes Called the pt back. Provided information on the plan:Let 10/Dexa/Midycle/Trigger/TI. Pt can't come in on 11/06, so will be scanned on 11/07. Please schedule the patient for the following- Location: [place] Provider: Kobi Weiner PA-C Visit type: Midcycle scan Reason for visit/appointment notes: Follicular scan Date: 11/07 Time (requested): 7:30 If slot is full, please schedule the closest open slot. Call to patient needed: no Kobi Weiner PA-C October 27, 2022 3:30 PM Patient returned call to office. Plan from 07/25/22. PLAN: MET 1,000 mg BID LET 10 mg CD 3-7 DEX 0.5 mg CD 3-OPK+ Follicle US TIC Maximum 3-4 ovulatory cycles; thereafter, if no conception has occurred, schedule a virtual visit to discuss additional work up, if any, and future treatment options -- Unable to reach patient by phone, sent Odysii message with instructions. Let 10/Dexa/Midycle/Trigger/TI Please schedule the patient for the following- Location: [facility] Provider: Kobi Weiner PA-C Visit type: Follicular scan Reason for visit/appointment notes: Follicular Scan Date: 11/06 Time (requested): any If slot is full, please schedule the closest open slot. Call to patient needed: yes. Also asked the pt to call us. Needs financial clearance for Midcycle scan Kobi Weiner PA-C October 27, 2022 1:43 PM Called the patient she verified her name and date of Patient last period was 10-26-22 Patient needs mid cycle scan Patient is going to [place] location Patient usually ovulates 19-22 Patient was advised we usually done 10-12 Patient thinks it needs to be done day 15 Patient wants first thing in the morning Patient has letrozole Needs ovidrel Routing to Non [place] [facility] Khurram Zendejas RN October 27, 2022 12:33 PM Ret call to set up midcycle Called the patient there was no answer Left a message to call the office Khurram Zendejas RN October 27, 2022 12:19 PM Pt is on cd2 wants to schedule midcycle us documented in this encounter [facility] 09-30-2022 Miscellaneous Notes See phone call Khurram Zendejas RN September 30, 2022 7:41 AM documented in this encounter [facility] 09-29-2022 Miscellaneous Notes Spoke with Tin, States she had an ultrasound at an outside facility and never got information on the results and what they meant Reviewed follicles were not measured a that scan. Had a +OPK 08/29 and stopped dex, awaiting outcome of cycle but no period yet, had -ucg LMP: unsure, early August Last intercourse over the weekend Plan: p4, e2, and HCG, if neg can begin provera and call to set up monitored cycle. Will come to [place] for future scans. Miguel Levy APRN.ADEEL September 29, 2022 12:30 PM Pt upset she hasn't heard anything reg her us and next steps documented in this encounter [facility] 09-17-2022 Miscellaneous Notes Images from the original note were not included. To Dr. Menchaca: Just wanted to let you know that the US report done outside the [facility] is available under scanned. Indicates PCOS. Please let me know if any changes to your plan: PLAN: MET 1,000 mg BID LET 10 mg CD 3-7 DEX 0.5 mg CD 3-OPK+ Follicle US TIC Maximum 3-4 ovulatory cycles; thereafter, if no conception has occurred, schedule a virtual visit to discuss additional work up, if any, and future treatment options Sent a Kobi Weiner PA-C September 17, 2022 10:08 AM documented in this encounter [facility] 12-25-2021 Consult note VIRTUAL VISIT PROGRESS NOTE This is a virtual visit using Odysii video visit. It required patient-provider interaction for the medical decision making as documented below. Date of Consult: 12/25/2021 Consultation Requested By: Self-refered Tin Arizmendi is a 36 year old female presenting with the following history: HISTORY OF PRESENT ILLNESS: Tin Arizmendi is a 36 year old female Menstrual cycle irregularity: Amenorrhea without OCP or Provera PMHx: Increased BMI. PCOS. Sleep apnea PSHx: Cholecystectomy. Renal stones Meds: MVI. Metformin 1,000 mg CD 3, Fasting hormone values: TT elevation HSG: Normal Pelvic US: PCOS appearing ovaries SA: Normal Desire for future fertility CC up to 150 mg X4: Thinks ovulated due to spontaneous menses and LH Discussed Metformin use Discussed CC OI not responding Disccused LET OI Started spotting last week Discussed inositol and cinnamon *Discussed Metformin refill *Discussed recently taking Provera due to spotting *Discussed LET + DEX OI cycles *Discussed LET 10 mg *Discussed newly started Spironolactone 35 year old male partner without proven fertility PMHx: Denies PSHx: Denies Meds: Denies SA: Normal Notations from previous visit: 34 year old female Menstrual cycle irregularity: Amenorrhea without OCP or Provera PMHx: Increased BMI. PCOS. Sleep apnea PSHx: Cholecystectomy. Renal stones Meds: MVI. Metformin 1,000 mg CD 3, Fasting hormone values: TT elevation HSG: Normal Pelvic US: PCOS appearing ovaries SA: Normal Primary infertility Desire for future fertility CC up to 150 mg X4: Thinks ovulated due to spontaneous menses and LH *Discussed Metformin use *Discussed CC OI not responding *Disccused LET OI *Started spotting last week *Discussed inositol and cinnamon 35 year old male partner without proven fertility PMHx: Denies PSHx: Denies Meds: Denies SA: Normal Notations from previous visit: 34 year old female Menstrual cycle irregularity: Amenorrhea without OCP or Provera PMHx: Increased BMI. PCOS. Sleep apnea PSHx: Cholecystectomy. Renal stones Meds: MVI. Metformin 1,000 mg CD 3, Fasting hormone values: TT elevation HSG: Normal Pelvic US: PCOS appearing ovaries SA: Normal Primary infertility Desire for future fertility CC up to 150 mg X4: Thinks ovulated due to spontaneous menses and LH 35 year old male partner without proven fertility PMHx: Denies PSHx: Denies Meds: Denies SA: Normal Obstetric History No data available Fertility Evaluations and Treatments: Eval Checklist Results Date Comments HSG Normal Hysteroscopy Not done Laparoscopy Not done OPK (Ovulation Predictor Kit) Abnormal Ovarian [place] Normal Saline Ultrasound Not done Semen Analysis Normal Ultrasound Normal Other (See comments) Not done MENSTRUAL HISTORY: Menarche Age: 14 Length of Cycle: 35-40 Irregular Days: 7 Menstrual Flow: Light Menstrual Symptoms: Cramping,Bloating,Breast Tenderness Patient's last menstrual period was 08/17/2020 (approximate). PAST MEDICAL HISTORY Diagnosis Date Sleep apnea 2020 PAST SURGICAL HISTORY Procedure Laterality Date COLPOSCOPY REMOVAL GALLBLADDER 2017 REMOVAL OF KIDNEY STONE 2004 REMOVAL OF KIDNEY STONE 2013 FAMILY HISTORY Problem Relation Age of Onset Diabetes Mother other (pcos) Mother Diabetes Father Obstructive Sleep Apnea Maternal Grandfather Stroke Maternal Grandfather ETHNICITY: White GENETIC HISTORY: NA OCCUPATION/EXERCISE: Occupation: [employer] Exercise: stairs Partner Information Partner's Name: David Arizmendi Partner's : 1985 Partner's MRN: Partner's Ethnicity: NOT or Partner's Race: White 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 medroxyPROGESTERone (PROVERA) 10 mg tablet Take 1 tablet by mouth once daily. clomiPHENe (SEROPHENE) 50 mg tablet Take 4 tablets. Start CYCLE DAY 3. End CYCLE DAY 7. dexAMETHasone (DECADRON) 0.5 mg tablet Take 1 tablet by mouth daily with breakfast. medroxyPROGESTERone (PROVERA) 10 mg tablet Take 1 tablet by mouth once daily. No current facility-administered medications on file prior to visit. ALLERGIES: Penicillins [facility] Date: 10/04/2020 Comments: not sure results Date: 10/04/2020 Comments: not sure results STD Results: Yes Comments: HPV 2019, colp Last Mammogram: none Blood Type: NA ASSESSMENT: 36 year old female Menstrual cycle irregularity: Amenorrhea without OCP or Provera PMHx: Increased BMI. PCOS. Sleep apnea PSHx: Cholecystectomy. Renal stones Meds: MVI. Metformin 1,000 mg CD 3, Fasting hormone values: TT elevation HSG: Normal Pelvic US: PCOS appearing ovaries SA: Normal Desire for future fertility CC up to 150 mg X4: Thinks ovulated due to spontaneous menses and LH Discussed Metformin use Discussed CC OI not responding Disccused LET OI Started spotting last week Discussed inositol and cinnamon *Discussed Metformin refill *Discussed recently taking Provera due to spotting *Discussed LET + DEX OI cycles *Discussed LET 10 mg *Discussed newly started Spironolactone 35 year old male partner without proven fertility PMHx: Denies PSHx: Denies Meds: Denies SA: Normal Notations from previous visit: 34 year old female Menstrual cycle irregularity: Amenorrhea without OCP or Provera PMHx: Increased BMI. PCOS. Sleep apnea PSHx: Cholecystectomy. Renal stones Meds: MVI. Metformin 1,000 mg CD 3, Fasting hormone values: TT elevation HSG: Normal Pelvic US: PCOS appearing ovaries SA: Normal Primary infertility Desire for future fertility CC up to 150 mg X4: Thinks ovulated due to spontaneous menses and LH *Discussed Metformin use *Discussed CC OI not responding *Disccused LET OI *Started spotting last week *Discussed inositol and cinnamon 35 year old male partner without proven fertility PMHx: Denies PSHx: Denies Meds: Denies SA: Normal Notations from previous visit: 34 year old female Menstrual cycle irregularity: Amenorrhea without OCP or Provera PMHx: Increased BMI. PCOS. Sleep apnea PSHx: Cholecystectomy. Renal stones Meds: MVI. Metformin 1,000 mg CD 3, Fasting hormone values: TT elevation HSG: Normal Pelvic US: PCOS appearing ovaries SA: Normal Primary infertility Desire for future fertility CC up to 150 mg X4: Thinks ovulated due to spontaneous menses and LH 35 year old male partner without proven fertility PMHx: Denies PSHx: Denies Meds: Denies SA: Normal PLAN: Continue Metformin 1,000 BID LET 10 mg CD 3-7 DEX 0.5 mg CD 3-OPK+ TIC Maximum 3-4 ovulatory cycles; thereafter, if no conception has occurred, schedule a virtual visit to discuss additional work up, if any, and future treatment options Notations from previous visit: Metformin to 850 mg (2) at HS daily LET 7.5 mg CD 3-7 DEX 0.5 mg CD 3-OPK+ TIC Maximum 3-4 ovulatory cycles; thereafter, if no conception has occurred, schedule a virtual visit to discuss additional work up, if any, and future treatment options Notations from previous visit: Increase Metformin to 850 mg (2) at HS daily CC 150 mg CD 3-7 DEX 0.5 mg CD 3-OPK+ TIC Maximum 3-4 ovulatory cycles; thereafter, if no conception has occurred, schedule a virtual visit to discuss additional work up, if any, and future treatment options I spent a total of 22 minutes on the date of the service which included preparing to see the patient, [id number] patient care, completing clinical documentation, obtaining and/or reviewing separately obtained history, counseling and educating the patient/family/caregiver, ordering medications, tests, or procedures, independently interpreting results (not separately reported) and communicating results to the patient/family/caregiver. Dmitry Menchaca MD December 25, 2021 1:40 PM documented in this encounter [facility] Evaluation note Diagnosis Insulin resistance- Primary Dysmetabolic Syndrome X Problems with ovulation Unspecified noninflammatory disorder of ovary, fallopian tube, and broad ligament [facility] Treatment plan provided- [facility] Diagnosis Encounter for fertility planning- Primary Other specified procreative management [facility] Diagnosis Missed - Primary [facility] Diagnosis Encounter for fertility planning- Primary Other specified procreative management [facility] Diagnosis Encounter for fertility planning- Primary Other specified procreative management Disorder of ovulation Unspecified noninflammatory disorder of ovary, fallopian tube, and broad ligament [facility]* Diagnosis Female infertility- Primary Female infertility of unspecified origin Encounter for fertility planning Other specified procreative management documented in this encounter [facility] note* Diagnosis Female infertility Female infertility of unspecified origin [facility] Diagnosis Treatment plan provided- Primary [facility] Diagnosis Insulin resistance Dysmetabolic Syndrome X [facility]* Diagnosis Encounter for fertility testing- Primary Fertility testing [facility] Diagnosis Encounter for fertility testing- Primary Fertility testing Immunity to varicella determined by serologic test Immunity to rubella determined by serologic test documented in this encounter [facility] note* Diagnosis Negative test- Primary examination or test, negative result documented in this encounter [facility] note* Diagnosis Insulin resistance Dysmetabolic Syndrome X [facility] Diagnosis Encounter for fertility testing- Primary Fertility testing documented in this encounter [facility] note* Diagnosis Female infertility- Primary Female infertility of unspecified origin Encounter for fertility testing Fertility testing [facility] Diagnosis Infertility, female- Primary Female infertility of unspecified origin Encounter for fertility testing Fertility testing [facility]* Diagnosis Encounter for fertility testing Fertility testing [facility] Diagnosis Primary female infertility Female infertility of unspecified origin [facility] Diagnosis Primary female infertility Female infertility of unspecified origin [facility] Diagnosis Primary female infertility Female infertility of unspecified origin [facility] Diagnosis H/O penicillin-type antibiotic allergy- Primary Personal history of allergy to penicillin [facility] Diagnosis Primary female infertility Female infertility of unspecified origin [facility] Diagnosis Allergy to drug- Primary Other drug allergy Dry nares Other diseases of nasal cavity and sinuses Seasonal allergic rhinitis due to pollen documented in this encounter [facility] note* Diagnosis Female infertility- Primary Female infertility of unspecified origin documented in this encounter [facility] note* Diagnosis Primary female infertility- Primary Female infertility of unspecified origin documented in this encounter [facility] note* Diagnosis Female infertility Female infertility of unspecified origin documented in this encounter [facility] note* Diagnosis Female infertility Female infertility of unspecified origin documented in this encounter [facility] noteNo assessment information [facility]* Diagnosis Encounter for supervision of normal first in first trimester documented in this encounter [facility] note* Diagnosis Encounter to determine viability of , fetus 1 of multiple gestation- Primary documented in this encounter [facility] note* Diagnosis Non-viable - Primary Other abnormal products of conception documented in this encounter [facility] note* Diagnosis Missed - Primary Missed documented in this encounter [facility] note* Diagnosis Encounter for test, result positive- Primary examination or test, positive result Miscarriage Unspecified spontaneous without mention of complication documented in this encounter [facility] note* Diagnosis Post-operative state- Primary Other postprocedural status documented in this encounter [facility] note* Diagnosis Female infertility- Primary Female infertility of unspecified origin documented in this encounter [facility] note* Diagnosis Female infertility Female infertility of unspecified origin documented in this encounter [facility] note* Diagnosis Female infertility Female infertility of unspecified origin documented in this encounter [facility] note* Diagnosis Encounter for Papanicolaou smear for cervical cancer screening- Primary Encounter for gynecological examination (general) (routine) without abnormal findings Exposure to sexually transmitted disease (STD) Contact with or exposure to other communicable diseases Class 3 severe obesity due to excess calories with serious comorbidity and body mass index (BMI) of 40.0 to 44.9 in adult (HCC) PCOS (polycystic ovarian syndrome) Polycystic ovaries documented in this encounter [facility] note* Diagnosis Encounter for fertility testing- Primary Fertility testing documented in this encounter [facility] note* Diagnosis Androgen excess- Primary Other nonspecific finding on examination of urine Fertility testing documented in this encounter [facility] note* Diagnosis Cervical high risk HPV (human papillomavirus) test positive- Primary Cervical high risk human papillomavirus (HPV) DNA test positive documented in this encounter [facility] note* Diagnosis Female infertility- Primary Female infertility of unspecified origin [facility]* Diagnosis Irregular menses- Primary Irregular menstrual cycle Female infertility Female infertility of unspecified origin [facility]* Diagnosis Pre-procedure lab exam- Primary Pre-procedural laboratory examination Fertility testing documented in this encounter [facility] note* Diagnosis Encounter for fertility testing- Primary Fertility testing [facility]* Diagnosis Pre-operative laboratory examination- Primary Pre-procedural laboratory examination Endometrial polyp Polyp of corpus uteri Encounter for fertility testing Fertility testing documented in this encounter [facility] note* Diagnosis Female infertility Female infertility of unspecified origin [facility] Diagnosis Primary female infertility Female infertility of unspecified origin [facility] Diagnosis Primary female infertility Female infertility of unspecified origin [facility]* Diagnosis Primary female infertility Female infertility of unspecified origin [facility] Diagnosis Primary female infertility Female infertility of unspecified origin [facility]* Diagnosis Female infertility- Primary Female infertility of unspecified origin [facility]* Diagnosis Female infertility Female infertility of unspecified origin [facility]* Diagnosis Female infertility Female infertility of unspecified origin [facility] Diagnosis Female infertility- Primary Female infertility of unspecified origin [facility] Diagnosis Female infertility Female infertility of unspecified origin [facility] Diagnosis Female infertility- Primary Female infertility of unspecified origin [facility] Diagnosis Female infertility Female infertility of unspecified origin [facility] Diagnosis Female infertility Female infertility of unspecified origin [facility]* Diagnosis Female infertility- Primary Female infertility of unspecified origin [facility]* Diagnosis PCOS (polycystic ovarian syndrome)- Primary Polycystic ovaries Midline low back pain without sciatica, unspecified chronicity [facility] Diagnosis Female infertility Female infertility of unspecified origin [facility] Diagnosis Female infertility Female infertility of unspecified origin [facility] Diagnosis Female infertility Female infertility of unspecified origin [facility] Diagnosis NIKO (obstructive sleep apnea)- Primary Obstructive sleep apnea (adult) (pediatric) CPAP use counseling Obesity, Class III, BMI 40-49.9 (morbid obesity) ([facility]) Noncompliance with CPAP treatment [facility]* Diagnosis Routine general medical examination at a health care facility- Primary [facility]* Diagnosis PCOS (polycystic ovarian syndrome)- Primary Polycystic ovaries Hypertriglyceridemia Pure hyperglyceridemia documented in this encounter [facility]* Diagnosis Other acute sinusitis, recurrence not specified- Primary documented in this encounter [facility]* Diagnosis Routine general medical examination at a health care facility- Primary Inclusion cyst Sebaceous cyst PCOS (polycystic ovarian syndrome) Polycystic ovaries [facility] Diagnosis Medication refill- Primary Issue of repeat prescriptions [facility] Diagnosis Encounter for fertility testing- Primary Fertility testing Female infertility Female infertility of unspecified origin Female infertility- Primary Female infertility of unspecified origin Encounter for fertility testing Fertility testing [facility] Diagnosis Female infertility- Primary Female infertility of unspecified origin Encounter for fertility testing Fertility testing [facility] Diagnosis Female infertility- Primary Female infertility of unspecified origin Encounter for fertility testing Fertility testing [facility] Diagnosis Inclusion cyst- Primary Sebaceous cyst [facility]* Diagnosis Encounter for fertility testing Fertility testing [facility] Diagnosis Encounter for fertility testing Fertility testing documented [facility]* Diagnosis Inclusion cyst- Primary Sebaceous cyst documented in this encounter [facility]* Diagnosis Encounter for test, result positive ([facility])- Primary examination or test, positive result [facility]* Diagnosis Encounter for test, result positive (HCC)- Primary examination or test, positive result [facility]* Diagnosis Encounter for test, result positive (HCC) examination or test, positive result documented [facility]* Diagnosis Encounter for test, result positive (HCC) examination or test, positive result documented [facility]* Diagnosis Miscarriage (HCC) [O03.9]- Primary Unspecified spontaneous without mention of complication [facility] Additional Instructions Please keep your scheduled appointment with your ultrasound next week.[facility] Work Phone: InstructionsNot on filedocumented in this encounter [facility]Not on filedocumented in this encounter [facility]* Attachments The following attachments cannot be sent through Care Everywhere. * Yearly Physical for Adults ([place]) [facility]* Attachments The following attachments cannot be sent through Care Everywhere. * Low Carbohydrate Diet ([place]) * High triglycerides ([place]) documented in this [facility] SystemInstructionsNot on file documented in this encounterProMediM[facility] SystemInstructionsNot on file documented in this encounterPro[facility] SystemInstructionsNot on file documented in this encounterPro[facility] SystemInstructionsNot on file documented in this encounterPro[facility] Health SystemInstructionsNot on file documented in this encounterPro[facility] SystemInstructionsNot on file documented in this encounterProPar[facility] SystemReason for referral (narrative)* Diagnostic Procedure Only (Routine) - Pending Review Specialty Diagnoses / Procedures Referred By Kt herbert Referred To Contact [facility] Diagnoses Encounter for fertility planning Procedures FOLLICULAR US WHI US PELVIC NONOBSTETRIC IMAGE DCMTN LIMITED/F/U Kobi Weiner PA-C [address] [place] [address] [facility] [address] [place] [address] Referral ID Status Reason Start Date Expiration Date Visits Requested Visits Authorized [id number] Pending Review Auto-Generat ed Referral 10/27/2022 10/27/2023 1 1 [facility] for referral (narrative)* Diagnostic Procedure Only (Routine) - Authorized Specialty Diagnoses / Procedures Referred By Contac t Referred To Contact [facility] Diagnoses Female infertility Procedures FOLLICULAR US I US PELVIC NONOBSTETRIC IMAGE DCMTN LIMITED/F/U Miguel Levy APRN.INTERNATIONAL FLIGHT ATTENDANT [address] [place] [address] [address] Referral ID Status Reason Start Date Expiration Date Visits Requested Visits Authorized [id number] Authorized Auto-Generat ed Referral 11/07/2022 11/07/2023 1 1 [facility] ([facility])* Diagnostic Procedure Only (Routine) - Authorized Specialty Diagnoses / Procedures Referred By Contac t Referred To Contact [facility] Diagnoses Encounter for fertility testing Procedures FOLLICULAR US I US PELVIC NONOBSTETRIC IMAGE DCMTN LIMITED/F/U Shyla Orr APRN.CNP [address] [address] [facility] [address] [place] [address] Referral ID Status Reason Start Date Expiration Date Visits Requested Visits Authorized [id number] Authorized Auto-Generat ed Referral 12/02/2022 12/02/2023 1 1 [facility] for referral (narrative)* Diagnostic Procedure Only (Routine) - Pending Review Specialty Diagnoses / Procedures Referred By Contac t Referred To Contact XR IMAGING Diagnoses Encounter for fertility testing Procedures XR HYSTEROSALPINGOGRAM CATH & SALINE/CONTRAST SONOHYSTER/[place] [address] [place] [address] Xr Imaging Referral ID Status Reason Start Date Expiration Date Visits Requested Visits Authorized [id number] Pending Review Auto-Generat ed Referral 03/09/2023 04/07/2024 1 1 [facility] for referral (narrative)* Diagnostic Procedure Only (Routine) - Pending Review Specialty Diagnoses / Procedures Referred By Contac t Referred To Contact [facility] Diagnoses Encounter for fertility testing Procedures FOLLICULAR US WHI US PELVIC NONOBSTETRIC IMAGE [facility] LIMITED/F/U Leonel Cabezas APRN.INTERNATIONAL FLIGHT ATTENDANT [address] [place] [address] [facility] [address] [place] [address] Referral ID Status Reason Start Date Expiration Date Visits Requested Visits Authorized [id number] Pending Review Auto-Generat ed Referral 05/12/2023 05/11/2024 6 1 [facility] for referral (narrative)* Diagnostic Procedure Only (Routine) - Authorized Specialty Diagnoses / Procedures Referred By Contac t Referred To Contact [facility] Diagnoses Female infertility Procedures FOLLICULAR US WHI US PELVIC NONOBSTETRIC IMAGE [facility] LIMITED/F/U Leonel Cabezas APRN.INTERNATIONAL FLIGHT ATTENDANT [address] [place] [address] [facility] [address] [place] [address] Referral ID Status Reason Start Date Expiration Date Visits Requested Visits Authorized [id number] Authorized Auto-Generat ed Referral 08/18/2023 08/17/2024 6 1 [facility] for referral (narrative)* Diagnostic Procedure Only (Routine) - Authorized Specialty Diagnoses / Procedures Referred By Contac t Referred To Contact [facility] Diagnoses Encounter to determine viability of , fetus 1 of multiple gestation Procedures OBSTETRIC ULTRASOUND WHI US PREG UTERUS AFTER 1ST TRIMEST GESTATION Provider, Lidar Technician Transcribe [facility] [address] [place] [address] Referral ID Status Reason Start Date Expiration Date Visits Requested Visits Authorized [id number] Authorized Auto-Generat ed Referral 10/22/2023 10/21/2024 1 1 [facility] for referral (narrative)* Diagnostic Procedure Only (Routine) - Pending Review Specialty Diagnoses / Procedures Referred By Contac t Referred To Contact [facility] Diagnoses Female infertility Procedures FOLLICULAR US WHI US PELVIC NONOBSTETRIC IMAGE DCMTN LIMITED/F/U Leonel Cabezas APRN.INTERNATIONAL FLIGHT ATTENDANT [address] [place] [address] [address] Referral ID Status Reason Start Date Expiration Date Visits Requested Visits Authorized [id number] Pending Review Auto-Generat ed Referral 12/29/2023 12/28/2024 6 1 [facility] for referral (narrative)* Diagnostic Procedure Only (Routine) - Pending Review Specialty Diagnoses / Procedures Referred By Kt t Referred To Contact [facility] Diagnoses Fertility testing Procedures SONOHYSTEROGRAPHY (SIS) US WHI SALINE INFUS SONOHYSTEROGRAPHY W/[place] [address] [place] [address] [address] Referral ID Status Reason Start Date Expiration Date Visits Requested Visits Authorized [id number] Pending Review Auto-Generat ed Referral 02/23/2024 02/22/2025 1 1 [facility] for referral (narrative)* Diagnostic Procedure Only (Routine) - Pending Review Specialty Diagnoses / Procedures Referred By Contac t Referred To Contact [facility] Diagnoses Female infertility Procedures FOLLICULAR US WHI US PELVIC NONOBSTETRIC IMAGE DCMTN LIMITED/F/U Kobi Weiner PA-C [address] [place] [address] [address] Referral ID Status Reason Start Date Expiration Date Visits Requested Visits Authorized [id number] Pending Review Auto-Generat ed Referral 03/09/2024 03/09/2025 6 1 [facility] for referral (narrative)* Diagnostic Procedure Only (Routine) - Authorized Specialty Diagnoses / Procedures Referred By Contac t Referred To Contact [facility] Diagnoses Female infertility Procedures FOLLICULAR US [facility] US PELVIC NONOBSTETRIC IMAGE DCMTN LIMITED/F/U Miguel Levy APRN.INTERNATIONAL FLIGHT ATTENDANT [address] [place] [place] [address] [address] Referral ID Status Reason Start Date Expiration Date Visits Requested Visits Authorized [id number] Authorized Auto-Generat ed Referral 4 07/04/2025 4 1 [facility] for referral (narrative)* Diagnostic Procedure Only (Routine) - New Request Specialty Diagnoses / Procedures Referred By Contac t Referred To Contact [facility] Diagnoses Female infertility Procedures FOLLICULAR US [facility] US PELVIC NONOBSTETRIC IMAGE DCMTN LIMITED/F/U Miguel Levy APRN.INTERNATIONAL FLIGHT ATTENDANT [address] [place] [place] [address] [address] Referral ID Status Reason Start Date Expiration Date Visits Requested Visits Authorized [id number] New Request Auto-Generat ed Referral 4 08/08/2025 4 1 [facility] for referral (narrative)* Consultation (Routine) - Pending Review Specialty Diagnoses / Procedures Referred By Kt herbert Referred To Contact Nutrition Diagnoses PCOS (polycystic ovarian syndrome) Hypertriglyceridemia David Mckeon MD [address] [place] [address] [facility] [address] [place] [address] Referral ID Status Reason Start Date Expiration Date V isits Requested Visits Authorized [id number] Pending Review 11/20/2023 11/19/2024 1 1 Scheduling Instructions Low carb diet for hypertriglyceridemia [facility] for visit Narrative* Diagnostic Procedure Only (Routine) - Closed Specialty Diagnoses / Procedures Referred By Kt herbert Referred To Contact [facility] Diagnoses Female infertility Procedures FOLLICULAR US [facility] US PELVIC NONOBSTETRIC IMAGE [facility] LIMITED/F/U Miguel Levy, WATER SUPERVISOR.INTERNATIONAL FLIGHT ATTENDANT [address] [place] [place] [address] [facility] [address] [place] [address] Referral ID Status Reason Start Date Expiration Date V isits Requested Visits Authorized [id number] Closed Auto-Generate d Referral 11/07/2022 11/07/2023 1 1 [facility] for visit Narrative* Diagnostic Procedure Only (Routine) - Closed Specialty Diagnoses / Procedures Referred By Kt herbert Referred To Contact [facility] Diagnoses Female infertility Procedures FOLLICULAR US [facility] US PELVIC NONOBSTETRIC IMAGE [place] LIMITED/F/U Miguel Levy, WATER SUPERVISOR.INTERNATIONAL FLIGHT ATTENDANT [address] [place] [place] [address] [facility] [address] [facility] [place] [address] Referral ID Status Reason Start Date Expiration Date V isits Requested Visits Authorized [id number] Closed Auto-Generate d Referral 12/15/2022 12/15/2023 1 1 [facility] for visit Narrative* Diagnostic Procedure Only (Routine) - Closed Specialty Diagnoses / Procedures Referred By Contac t Referred To Contact [facility] Diagnoses Encounter for fertility testing Procedures FOLLICULAR US WHI US PELVIC NONOBSTETRIC IMAGE DCMTN LIMITED/F/U Leonel Cabezas WATER SUPERVISOR.INTERNATIONAL FLIGHT ATTENDANT [address] [place] [address] [facility] [address] [place] [address] Referral ID Status Reason Start Date Expiration Date V isits Requested Visits Authorized [id number] Closed Auto-Generate d Referral 05/13/2023 09/13/2023 6 1 [facility] for visit Narrative* Diagnostic Procedure Only (Routine) - Closed Specialty Diagnoses / Procedures Referred By Contac t Referred To Contact [facility] Diagnoses Primary female infertility Procedures FOLLICULAR US WHI US PELVIC NONOBSTETRIC IMAGE DCMTN LIMITED/F/U Radha Gilliam MD [address] [place] [address] [facility] [address] [place] [address] Referral ID Status Reason Start Date Expiration Date V isits Requested Visits Authorized [id number] Closed Auto-Generate d Referral 06/17/2023 06/16/2024 6 1 [facility] for visit Narrative* Diagnostic Procedure Only (Routine) - Closed Specialty Diagnoses / Procedures Referred By Contac t Referred To Contact [facility] Diagnoses Female infertility Procedures FOLLICULAR US WHI US PELVIC NONOBSTETRIC IMAGE DCMTN LIMITED/F/U Miguel Levy, WATER SUPERVISOR.INTERNATIONAL FLIGHT ATTENDANT [address] [place] [place] [address] [facility] [address] [place] [address] Referral ID Status Reason Start Date Expiration Date V isits Requested Visits Authorized [id number] Closed Auto-Generate d Referral 08/08/2024 08/08/2025 4 1 [facility] for visit Narrative* Diagnostic Procedure Only (Routine) - Closed Specialty Diagnoses / Procedures Referred By Contac t Referred To Contact [facility] Diagnoses Female infertility Procedures FOLLICULAR US WHI US PELVIC NONOBSTETRIC IMAGE DCMTN LIMITED/F/U Miguel Levy, WATER SUPERVISOR.INTERNATIONAL FLIGHT ATTENDANT [address] [place] [place] [address] Phone: tel: fax: [address] [address] Referral ID Status Reason Start Date Expiration Date V isits Requested Visits Authorized [id number] Closed Auto-Generate d Referral 08/08/2024 08/08/2025 4 1 [facility] for visit Narrative* Diagnostic Procedure Only (Routine) - Closed Specialty Diagnoses / Procedures Referred By Contac t Referred To Contact [facility] Diagnoses Encounter for fertility testing Procedures FOLLICULAR US WHI US PELVIC NONOBSTETRIC IMAGE DCMTN LIMITED/F/U Leonel Cabezas, WATER SUPERVISOR.INTERNATIONAL FLIGHT ATTENDANT [address] [place] [address] Phone: tel: fax: [address] [address] Referral ID Status Reason Start Date Expiration Date V isits Requested Visits Authorized [id number] Closed Auto-Generate d Referral 11/14/2024 11/11/2025 6 1 [facility] for visit Narrative* Diagnostic Procedure Only (Routine) - Closed Specialty Diagnoses / Procedures Referred By Contac t Referred To Contact [facility] Diagnoses Encounter for test, result positive (HCC) Procedures OBSTETRIC ULTRASOUND WHI OBSTETRIC ULTRASOUND WHI US PREG UTERUS AFTER 1ST TRIMEST GESTATION Kobi Weiner PA-C [address] [place] [address] Phone: tel: fax: [address] [address] Referral ID Status Reason Start Date Expiration Date V isits Requested Visits Authorized [id number] Closed Auto-Generate d Referral 12/16/2024 12/16/2025 1 1 [facility] for visit Narrative* Diagnostic Procedure Only (Routine) - Closed Specialty Diagnoses / Procedures Referred By Contac t Referred To Contact [facility] Diagnoses Encounter for test, result positive (HCC) Procedures OBSTETRIC ULTRASOUND WHI US PREG UTERUS AFTER 1ST [place] [address] [place] [address] Phone: tel: fax: [facility] [address] [place] [address] Referral ID Status Reason Start Date Expiration Date V isits Requested Visits Authorized [id number] Closed Auto-Generate d Referral 12/30/2024 12/30/2025 1 1 [facility] Summary Purpose Family History Relationship Condition Age at Onset Recorded Date/T tyrone father Diabetes mellitus Unknown mother Diabetes mellitus Unknown Advance Directives Advance Directive Response Recorded Date/ Time Advance Directives No December 15 12:13pm Advance Directive Response Recorded Date/ Time Advance Directives No December 15 1:13pm Chief Complaint and Reason for Visit Chief Complaint 6 wk IUP back pain Chief Complaint Admit Date cyst removed-check for infection November 122024 4:52pm Reason for Referral Specialty Diagnoses / Procedures Referred By Kt t Referred To Contact [facility] Diagnoses Encounter for fertility testing Procedures OFFICE HYSTEROSCOPY HYSTEROSCOPY BX ENDOMETRIUM&/POLYPC W/WO D&C HYSTEROSCOPY, DIAGNOSTIC ([place] [address] [place] [address] [facility] [address] [place] [address] Referral ID Status Reason Start Date Expiration Date Visits Requested Visits Authorized [id number] Waiting for Response Benefit Check 05/05/2024 05/05/2025 2 1 Specialty Diagnoses / Procedures Referred By Kt herbert Referred To Contact [facility] Diagnoses Female infertility Procedures FOLLICULAR US WHI US PELVIC NONOBSTETRIC IMAGE DCMTN LIMITED/F/[place] [address] [place] [address] [facility] [address] [place] [address] Referral ID Status Reason Start Date Expiration Date Visits Requested Visits Authorized [id number] New Request Benefit Check 09/09/2025 3 1 Additional Source Comments INFORMATION SOURCE (unrecogn ized section and content) DATE CREATED AUTHOR 09/21/2021 [facility] DATE CREATED AUTHOR AUTHOR'S ORGANIZ ATION 10/10/2023 [facility] DATE CREATED AUTHOR AUTHOR'S ORGANIZ ATION 01/11/2024 [facility] DATE CREATED AUTHOR AUTHOR'S ORGANIZ ATION 04/13/2024 [employer] DATE CREATED AUTHOR AUTHOR'S ORGANIZ ATION 12/01/2024 [facility] DATE CREATED AUTHOR AUTHOR'S ORGANIZ ATION 12/07/2024 [facility] DATE CREATED AUTHOR AUTHOR'S ORGANIZ ATION 01/11/2025 [facility] DATE CREATED AUTHOR AUTHOR'S ORGANIZ ATION 01/18/2025 [facility] DATE CREATED AUTHOR AUTHOR'S ORGANIZ ATION 01/19/2025 [facility] EPIC Source Comments (unrecognize d section and content) In the event this informatio n is protected by the Federal Confidentiality of Alcohol and Drug Abuse Patient Records regulations: The Federal rules restrict any use of the information to criminally investigate or prosecute any alcohol or drug abuse patient.[facility] the event this information is protected by the Federal Confidentiality of Alcohol and Drug Abuse Patient Records regulations: The Federal rules restrict any use of the information to criminally investigate or prosecute any alcohol or drug abuse patient.[facility] HospitalIn the event this information is protected by the Federal Confidentiality of Alcohol and Drug Abuse Patient Records regulations: The Federal rules restrict any use of the information to criminally investigate or prosecute any alcohol or drug abuse patient.[facility] HospitalIn the event this information is protected by the Federal Confidentiality of Alcohol and Drug Abuse Patient Records regulations: The Federal rules restrict any use of the information to criminally investigate or prosecute any alcohol or drug abuse patient.[facility] HospitalIn the event this information is protected by the Federal Confidentiality of Alcohol and Drug Abuse Patient Records regulations: The Federal rules restrict any use of the information to criminally investigate or prosecute any alcohol or drug abuse patient.[facility] HospitalIn the event this information is protected by the Federal Confidentiality of Alcohol and Drug Abuse Patient Records regulations: The Federal rules restrict any use of the information to criminally investigate or prosecute any alcohol or drug abuse patient.[facility] HospitalIn the event this information is protected by the Federal Confidentiality of Alcohol and Drug Abuse Patient Records regulations: The Federal rules restrict any use of the information to criminally investigate or prosecute any alcohol or drug abuse patient.[facility] HospitalIn the event this information is protected by the Federal Confidentiality of Alcohol and Drug Abuse Patient Records regulations: The Federal rules restrict any use of the information to criminally investigate or prosecute any alcohol or drug abuse patient.[facility] HospitalIn the event this information is protected by the Federal Confidentiality of Alcohol and Drug Abuse Patient Records regulations: The Federal rules restrict any use of the information to criminally investigate or prosecute any alcohol or drug abuse patient.[facility] HospitalIn the event this information is protected by the Federal Confidentiality of Alcohol and Drug Abuse Patient Records regulations: The Federal rules restrict any use of the information to criminally investigate or prosecute any alcohol or drug abuse patient.[facility] HospitalIn the event this information is protected by the Federal Confidentiality of Alcohol and Drug Abuse Patient Records regulations: The Federal rules restrict any use of the information to criminally investigate or prosecute any alcohol or drug abuse patient.[facility] HospitalIn the event this information is protected by the Federal Confidentiality of Alcohol and Drug Abuse Patient Records regulations: The Federal rules restrict any use of the information to criminally investigate or prosecute any alcohol or drug abuse patient.[facility] HospitalIn the event this information is protected by the Federal Confidentiality of Alcohol and Drug Abuse Patient Records regulations: The Federal rules restrict any use of the information to criminally investigate or prosecute any alcohol or drug abuse patient.[facility] HospitalIn the event this information is protected by the Federal Confidentiality of Alcohol and Drug Abuse Patient Records regulations: The Federal rules restrict any use of the information to criminally investigate or prosecute any alcohol or drug abuse patient.[facility] HospitalIn the event this information is protected by the Federal Confidentiality of Alcohol and Drug Abuse Patient Records regulations: The Federal rules restrict any use of the information to criminally investigate or prosecute any alcohol or drug abuse patient.[facility] HospitalIn the event this information is protected by the Federal Confidentiality of Alcohol and Drug Abuse Patient Records regulations: The Federal rules restrict any use of the information to criminally investigate or prosecute any alcohol or drug abuse patient.[facility] HospitalIn the event this information is protected by the Federal Confidentiality of Alcohol and Drug Abuse Patient Records regulations: The Federal rules restrict any use of the information to criminally investigate or prosecute any alcohol or drug abuse patient.[facility] HospitalIn the event this information is protected by the Federal Confidentiality of Alcohol and Drug Abuse Patient Records regulations: The Federal rules restrict any use of the information to criminally investigate or prosecute any alcohol or drug abuse patient.[facility] HospitalIn the event this information is protected by the Federal Confidentiality of Alcohol and Drug Abuse Patient Records regulations: The Federal rules restrict any use of the information to criminally investigate or prosecute any alcohol or drug abuse patient.[facility] HospitalIn the event this information is protected by the Federal Confidentiality of Alcohol and Drug Abuse Patient Records regulations: The Federal rules restrict any use of the information to criminally investigate or prosecute any alcohol or drug abuse patient.[facility] HospitalIn the event this information is protected by the Federal Confidentiality of Alcohol and Drug Abuse Patient Records regulations: The Federal rules restrict any use of the information to criminally investigate or prosecute any alcohol or drug abuse patient.[facility] HospitalIn the event this information is protected by the Federal Confidentiality of Alcohol and Drug Abuse Patient Records regulations: The Federal rules restrict any use of the information to criminally investigate or prosecute any alcohol or drug abuse patient.[facility] HospitalIn the event this information is protected by the Federal Confidentiality of Alcohol and Drug Abuse Patient Records regulations: The Federal rules restrict any use of the information to criminally investigate or prosecute any alcohol or drug abuse patient.[facility] HospitalIn the event this information is protected by the Federal Confidentiality of Alcohol and Drug Abuse Patient Records regulations: The Federal rules restrict any use of the information to criminally investigate or prosecute any alcohol or drug abuse patient.[facility] HospitalIn the event this information is protected by the Federal Confidentiality of Alcohol and Drug Abuse Patient Records regulations: The Federal rules restrict any use of the information to criminally investigate or prosecute any alcohol or drug abuse patient.[facility] HospitalIn the event this information is protected by the Federal Confidentiality of Alcohol and Drug Abuse Patient Records regulations: The Federal rules restrict any use of the information to criminally investigate or prosecute any alcohol or drug abuse patient.[facility] HospitalIn the event this information is protected by the Federal Confidentiality of Alcohol and Drug Abuse Patient Records regulations: The Federal rules restrict any use of the information to criminally investigate or prosecute any alcohol or drug abuse patient.[facility] HospitalIn the event this information is protected by the Federal Confidentiality of Alcohol and Drug Abuse Patient Records regulations: The Federal rules restrict any use of the information to criminally investigate or prosecute any alcohol or drug abuse patient.[facility] HospitalIn the event this information is protected by the Federal Confidentiality of Alcohol and Drug Abuse Patient Records regulations: The Federal rules restrict any use of the information to criminally investigate or prosecute any alcohol or drug abuse patient.[facility] HospitalIn the event this information is protected by the Federal Confidentiality of Alcohol and Drug Abuse Patient Records regulations: The Federal rules restrict any use of the information to criminally investigate or prosecute any alcohol or drug abuse patient.[facility] HospitalIn the event this information is protected by the Federal Confidentiality of Alcohol and Drug Abuse Patient Records regulations: The Federal rules restrict any use of the information to criminally investigate or prosecute any alcohol or drug abuse patient.[facility] HospitalIn the event this information is protected by the Federal Confidentiality of Alcohol and Drug Abuse Patient Records regulations: The Federal rules restrict any use of the information to criminally investigate or prosecute any alcohol or drug abuse patient.[facility] HospitalIn the event this information is protected by the Federal Confidentiality of Alcohol and Drug Abuse Patient Records regulations: The Federal rules restrict any use of the information to criminally investigate or prosecute any alcohol or drug abuse patient.[facility] HospitalIn the event this information is protected by the Federal Confidentiality of Alcohol and Drug Abuse Patient Records regulations: The Federal rules restrict any use of the information to criminally investigate or prosecute any alcohol or drug abuse patient.[facility] HospitalIn the event this information is protected by the Federal Confidentiality of Alcohol and Drug Abuse Patient Records regulations: The Federal rules restrict any use of the information to criminally investigate or prosecute any alcohol or drug abuse patient.[facility] HospitalIn the event this information is protected by the Federal Confidentiality of Alcohol and Drug Abuse Patient Records regulations: The Federal rules restrict any use of the information to criminally investigate or prosecute any alcohol or drug abuse patient.[facility] HospitalIn the event this information is protected by the Federal Confidentiality of Alcohol and Drug Abuse Patient Records regulations: The Federal rules restrict any use of the information to criminally investigate or prosecute any alcohol or drug abuse patient.[facility] HospitalIn the event this information is protected by the Federal Confidentiality of Alcohol and Drug Abuse Patient Records regulations: The Federal rules restrict any use of the information to criminally investigate or prosecute any alcohol or drug abuse patient.[facility] HospitalIn the event this information is protected by the Federal Confidentiality of Alcohol and Drug Abuse Patient Records regulations: The Federal rules restrict any use of the information to criminally investigate or prosecute any alcohol or drug abuse patient.[facility] HospitalIn the event this information is protected by the Federal Confidentiality of Alcohol and Drug Abuse Patient Records regulations: The Federal rules restrict any use of the information to criminally investigate or prosecute any alcohol or drug abuse patient.[facility] HospitalIn the event this information is protected by the Federal Confidentiality of Alcohol and Drug Abuse Patient Records regulations: The Federal rules restrict any use of the information to criminally investigate or prosecute any alcohol or drug abuse patient.[facility] HospitalIn the event this information is protected by the Federal Confidentiality of Alcohol and Drug Abuse Patient Records regulations: The Federal rules restrict any use of the information to criminally investigate or prosecute any alcohol or drug abuse patient.[facility] HospitalIn the event this information is protected by the Federal Confidentiality of Alcohol and Drug Abuse Patient Records regulations: The Federal rules restrict any use of the information to criminally investigate or prosecute any alcohol or drug abuse patient.[facility] HospitalIn the event this information is protected by the Federal Confidentiality of Alcohol and Drug Abuse Patient Records regulations: The Federal rules restrict any use of the information to criminally investigate or prosecute any alcohol or drug abuse patient.[facility] HospitalIn the event this information is protected by the Federal Confidentiality of Alcohol and Drug Abuse Patient Records regulations: The Federal rules restrict any use of the information to criminally investigate or prosecute any alcohol or drug abuse patient.[facility] HospitalIn the event this information is protected by the Federal Confidentiality of Alcohol and Drug Abuse Patient Records regulations: The Federal rules restrict any use of the information to criminally investigate or prosecute any alcohol or drug abuse patient.[facility] HospitalIn the event this information is protected by the Federal Confidentiality of Alcohol and Drug Abuse Patient Records regulations: The Federal rules restrict any use of the information to criminally investigate or prosecute any alcohol or drug abuse patient.[facility] HospitalIn the event this information is protected by the Federal Confidentiality of Alcohol and Drug Abuse Patient Records regulations: The Federal rules restrict any use of the information to criminally investigate or prosecute any alcohol or drug abuse patient.[facility] HospitalIn the event this information is protected by the Federal Confidentiality of Alcohol and Drug Abuse Patient Records regulations: The Federal rules restrict any use of the information to criminally investigate or prosecute any alcohol or drug abuse patient.[facility] HospitalIn the event this information is protected by the Federal Confidentiality of Alcohol and Drug Abuse Patient Records regulations: The Federal rules restrict any use of the information to criminally investigate or prosecute any alcohol or drug abuse patient.[facility] HospitalIn the event this information is protected by the Federal Confidentiality of Alcohol and Drug Abuse Patient Records regulations: The Federal rules restrict any use of the information to criminally investigate or prosecute any alcohol or drug abuse patient.[facility] HospitalIn the event this information is protected by the Federal Confidentiality of Alcohol and Drug Abuse Patient Records regulations: The Federal rules restrict any use of the information to criminally investigate or prosecute any alcohol or drug abuse patient.[facility] HospitalIn the event this information is protected by the Federal Confidentiality of Alcohol and Drug Abuse Patient Records regulations: The Federal rules restrict any use of the information to criminally investigate or prosecute any alcohol or drug abuse patient.[facility] HospitalIn the event this information is protected by the Federal Confidentiality of Alcohol and Drug Abuse Patient Records regulations: The Federal rules restrict any use of the information to criminally investigate or prosecute any alcohol or drug abuse patient.[facility] HospitalIn the event this information is protected by the Federal Confidentiality of Alcohol and Drug Abuse Patient Records regulations: The Federal rules restrict any use of the information to criminally investigate or prosecute any alcohol or drug abuse patient.[facility] HospitalIn the event this information is protected by the Federal Confidentiality of Alcohol and Drug Abuse Patient Records regulations: The Federal rules restrict any use of the information to criminally investigate or prosecute any alcohol or drug abuse patient.[facility] HospitalIn the event this information is protected by the Federal Confidentiality of Alcohol and Drug Abuse Patient Records regulations: The Federal rules restrict any use of the information to criminally investigate or prosecute any alcohol or drug abuse patient.[facility] HospitalIn the event this information is protected by the Federal Confidentiality of Alcohol and Drug Abuse Patient Records regulations: The Federal rules restrict any use of the information to criminally investigate or prosecute any alcohol or drug abuse patient.[facility] HospitalIn the event this information is protected by the Federal Confidentiality of Alcohol and Drug Abuse Patient Records regulations: The Federal rules restrict any use of the information to criminally investigate or prosecute any alcohol or drug abuse patient.[facility] HospitalIn the event this information is protected by the Federal Confidentiality of Alcohol and Drug Abuse Patient Records regulations: The Federal rules restrict any use of the information to criminally investigate or prosecute any alcohol or drug abuse patient.[facility] HospitalIn the event this information is protected by the Federal Confidentiality of Alcohol and Drug Abuse Patient Records regulations: The Federal rules restrict any use of the information to criminally investigate or prosecute any alcohol or drug abuse patient.[facility] HospitalIn the event this information is protected by the Federal Confidentiality of Alcohol and Drug Abuse Patient Records regulations: The Federal rules restrict any use of the information to criminally investigate or prosecute any alcohol or drug abuse patient.[facility] HospitalIn the event this information is protected by the Federal Confidentiality of Alcohol and Drug Abuse Patient Records regulations: The Federal rules restrict any use of the information to criminally investigate or prosecute any alcohol or drug abuse patient.[facility] HospitalIn the event this information is protected by the Federal Confidentiality of Alcohol and Drug Abuse Patient Records regulations: The Federal rules restrict any use of the information to criminally investigate or prosecute any alcohol or drug abuse patient.[facility] HospitalIn the event this information is protected by the Federal Confidentiality of Alcohol and Drug Abuse Patient Records regulations: The Federal rules restrict any use of the information to criminally investigate or prosecute any alcohol or drug abuse patient.[facility] HospitalIn the event this information is protected by the Federal Confidentiality of Alcohol and Drug Abuse Patient Records regulations: The Federal rules restrict any use of the information to criminally investigate or prosecute any alcohol or drug abuse patient.[facility] HospitalIn the event this information is protected by the Federal Confidentiality of Alcohol and Drug Abuse Patient Records regulations: The Federal rules restrict any use of the information to criminally investigate or prosecute any alcohol or drug abuse patient.[facility] HospitalIn the event this information is protected by the Federal Confidentiality of Alcohol and Drug Abuse Patient Records regulations: The Federal rules restrict any use of the information to criminally investigate or prosecute any alcohol or drug abuse patient.[facility] HospitalIn the event this information is protected by the Federal Confidentiality of Alcohol and Drug Abuse Patient Records regulations: The Federal rules restrict any use of the information to criminally investigate or prosecute any alcohol or drug abuse patient.[facility] HospitalIn the event this information is protected by the Federal Confidentiality of Alcohol and Drug Abuse Patient Records regulations: The Federal rules restrict any use of the information to criminally investigate or prosecute any alcohol or drug abuse patient.[facility] HospitalIn the event this information is protected by the Federal Confidentiality of Alcohol and Drug Abuse Patient Records regulations: The Federal rules restrict any use of the information to criminally investigate or prosecute any alcohol or drug abuse patient.[facility] HospitalIn the event this information is protected by the Federal Confidentiality of Alcohol and Drug Abuse Patient Records regulations: The Federal rules restrict any use of the information to criminally investigate or prosecute any alcohol or drug abuse patient.[facility] HospitalIn the event this information is protected by the Federal Confidentiality of Alcohol and Drug Abuse Patient Records regulations: The Federal rules restrict any use of the information to criminally investigate or prosecute any alcohol or drug abuse patient.[facility] HospitalIn the event this information is protected by the Federal Confidentiality of Alcohol and Drug Abuse Patient Records regulations: The Federal rules restrict any use of the information to criminally investigate or prosecute any alcohol or drug abuse patient.[facility] HospitalIn the event this information is protected by the Federal Confidentiality of Alcohol and Drug Abuse Patient Records regulations: The Federal rules restrict any use of the information to criminally investigate or prosecute any alcohol or drug abuse patient.[facility] HospitalIn the event this information is protected by the Federal Confidentiality of Alcohol and Drug Abuse Patient Records regulations: The Federal rules restrict any use of the information to criminally investigate or prosecute any alcohol or drug abuse patient.[facility] HospitalIn the event this information is protected by the Federal Confidentiality of Alcohol and Drug Abuse Patient Records regulations: The Federal rules restrict any use of the information to criminally investigate or prosecute any alcohol or drug abuse patient.[facility] HospitalIn the event this information is protected by the Federal Confidentiality of Alcohol and Drug Abuse Patient Records regulations: The Federal rules restrict any use of the information to criminally investigate or prosecute any alcohol or drug abuse patient.[facility] HospitalIn the event this information is protected by the Federal Confidentiality of Alcohol and Drug Abuse Patient Records regulations: The Federal rules restrict any use of the information to criminally investigate or prosecute any alcohol or drug abuse patient.[facility] HospitalIn the event this information is protected by the Federal Confidentiality of Alcohol and Drug Abuse Patient Records regulations: The Federal rules restrict any use of the information to criminally investigate or prosecute any alcohol or drug abuse patient.[facility] HospitalIn the event this information is protected by the Federal Confidentiality of Alcohol and Drug Abuse Patient Records regulations: The Federal rules restrict any use of the information to criminally investigate or prosecute any alcohol or drug abuse patient.[facility] HospitalIn the event this information is protected by the Federal Confidentiality of Alcohol and Drug Abuse Patient Records regulations: The Federal rules restrict any use of the information to criminally investigate or prosecute any alcohol or drug abuse patient.[facility] HospitalIn the event this information is protected by the Federal Confidentiality of Alcohol and Drug Abuse Patient Records regulations: The Federal rules restrict any use of the information to criminally investigate or prosecute any alcohol or drug abuse patient.[facility] HospitalIn the event this information is protected by the Federal Confidentiality of Alcohol and Drug Abuse Patient Records regulations: The Federal rules restrict any use of the information to criminally investigate or prosecute any alcohol or drug abuse patient.[facility] HospitalIn the event this information is protected by the Federal Confidentiality of Alcohol and Drug Abuse Patient Records regulations: The Federal rules restrict any use of the information to criminally investigate or prosecute any alcohol or drug abuse patient.[facility] HospitalIn the event this information is protected by the Federal Confidentiality of Alcohol and Drug Abuse Patient Records regulations: The Federal rules restrict any use of the information to criminally investigate or prosecute any alcohol or drug abuse patient.[facility] HospitalIn the event this information is protected by the Federal Confidentiality of Alcohol and Drug Abuse Patient Records regulations: The Federal rules restrict any use of the information to criminally investigate or prosecute any alcohol or drug abuse patient.[facility] HospitalIn the event this information is protected by the Federal Confidentiality of Alcohol and Drug Abuse Patient Records regulations: The Federal rules restrict any use of the information to criminally investigate or prosecute any alcohol or drug abuse patient.[facility] HospitalIn the event this information is protected by the Federal Confidentiality of Alcohol and Drug Abuse Patient Records regulations: The Federal rules restrict any use of the information to criminally investigate or prosecute any alcohol or drug abuse patient.[facility] HospitalIn the event this information is protected by the Federal Confidentiality of Alcohol and Drug Abuse Patient Records regulations: The Federal rules restrict any use of the information to criminally investigate or prosecute any alcohol or drug abuse patient.[facility] HospitalIn the event this information is protected by the Federal Confidentiality of Alcohol and Drug Abuse Patient Records regulations: The Federal rules restrict any use of the information to criminally investigate or prosecute any alcohol or drug abuse patient.[facility] HospitalIn the event this information is protected by the Federal Confidentiality of Alcohol and Drug Abuse Patient Records regulations: The Federal rules restrict any use of the information to criminally investigate or prosecute any alcohol or drug abuse patient.[facility] HospitalIn the event this information is protected by the Federal Confidentiality of Alcohol and Drug Abuse Patient Records regulations: The Federal rules restrict any use of the information to criminally investigate or prosecute any alcohol or drug abuse patient.[facility] HospitalIn the event this information is protected by the Federal Confidentiality of Alcohol and Drug Abuse Patient Records regulations: The Federal rules restrict any use of the information to criminally investigate or prosecute any alcohol or drug abuse patient.[facility] HospitalIn the event this information is protected by the Federal Confidentiality of Alcohol and Drug Abuse Patient Records regulations: The Federal rules restrict any use of the information to criminally investigate or prosecute any alcohol or drug abuse patient.[facility] HospitalIn the event this information is protected by the Federal Confidentiality of Alcohol and Drug Abuse Patient Records regulations: The Federal rules restrict any use of the information to criminally investigate or prosecute any alcohol or drug abuse patient.[facility] HospitalIn the event this information is protected by the Federal Confidentiality of Alcohol and Drug Abuse Patient Records regulations: The Federal rules restrict any use of the information to criminally investigate or prosecute any alcohol or drug abuse patient.[facility] HospitalIn the event this information is protected by the Federal Confidentiality of Alcohol and Drug Abuse Patient Records regulations: The Federal rules restrict any use of the information to criminally investigate or prosecute any alcohol or drug abuse patient.[facility] HospitalIn the event this information is protected by the Federal Confidentiality of Alcohol and Drug Abuse Patient Records regulations: The Federal rules restrict any use of the information to criminally investigate or prosecute any alcohol or drug abuse patient.[facility] HospitalIn the event this information is protected by the Federal Confidentiality of Alcohol and Drug Abuse Patient Records regulations: The Federal rules restrict any use of the information to criminally investigate or prosecute any alcohol or drug abuse patient.[facility] HospitalIn the event this information is protected by the Federal Confidentiality of Alcohol and Drug Abuse Patient Records regulations: The Federal rules restrict any use of the information to criminally investigate or prosecute any alcohol or drug abuse patient.[facility] HospitalIn the event this information is protected by the Federal Confidentiality of Alcohol and Drug Abuse Patient Records regulations: The Federal rules restrict any use of the information to criminally investigate or prosecute any alcohol or drug abuse patient.[facility] HospitalIn the event this information is protected by the Federal Confidentiality of Alcohol and Drug Abuse Patient Records regulations: The Federal rules restrict any use of the information to criminally investigate or prosecute any alcohol or drug abuse patient.[facility] HospitalIn the event this information is protected by the Federal Confidentiality of Alcohol and Drug Abuse Patient Records regulations: The Federal rules restrict any use of the information to criminally investigate or prosecute any alcohol or drug abuse patient.[facility] HospitalIn the event this information is protected by the Federal Confidentiality of Alcohol and Drug Abuse Patient Records regulations: The Federal rules restrict any use of the information to criminally investigate or prosecute any alcohol or drug abuse patient.[facility] HospitalIn the event this information is protected by the Federal Confidentiality of Alcohol and Drug Abuse Patient Records regulations: The Federal rules restrict any use of the information to criminally investigate or prosecute any alcohol or drug abuse patient.[facility] HospitalIn the event this information is protected by the Federal Confidentiality of Alcohol and Drug Abuse Patient Records regulations: The Federal rules restrict any use of the information to criminally investigate or prosecute any alcohol or drug abuse patient.[facility] HospitalIn the event this information is protected by the Federal Confidentiality of Alcohol and Drug Abuse Patient Records regulations: The Federal rules restrict any use of the information to criminally investigate or prosecute any alcohol or drug abuse patient.[facility] HospitalIn the event this information is protected by the Federal Confidentiality of Alcohol and Drug Abuse Patient Records regulations: The Federal rules restrict any use of the information to criminally investigate or prosecute any alcohol or drug abuse patient.[facility] HospitalIn the event this information is protected by the Federal Confidentiality of Alcohol and Drug Abuse Patient Records regulations: The Federal rules restrict any use of the information to criminally investigate or prosecute any alcohol or drug abuse patient.[facility] HospitalIn the event this information is protected by the Federal Confidentiality of Alcohol and Drug Abuse Patient Records regulations: The Federal rules restrict any use of the information to criminally investigate or prosecute any alcohol or drug abuse patient.[facility] HospitalIn the event this information is protected by the Federal Confidentiality of Alcohol and Drug Abuse Patient Records regulations: The Federal rules restrict any use of the information to criminally investigate or prosecute any alcohol or drug abuse patient.[facility] HospitalIn the event this information is protected by the Federal Confidentiality of Alcohol and Drug Abuse Patient Records regulations: The Federal rules restrict any use of the information to criminally investigate or prosecute any alcohol or drug abuse patient.[facility] HospitalIn the event this information is protected by the Federal Confidentiality of Alcohol and Drug Abuse Patient Records regulations: The Federal rules restrict any use of the information to criminally investigate or prosecute any alcohol or drug abuse patient.[facility] HospitalIn the event this information is protected by the Federal Confidentiality of Alcohol and Drug Abuse Patient Records regulations: The Federal rules restrict any use of the information to criminally investigate or prosecute any alcohol or drug abuse patient.[facility] HospitalIn the event this information is protected by the Federal Confidentiality of Alcohol and Drug Abuse Patient Records regulations: The Federal rules restrict any use of the information to criminally investigate or prosecute any alcohol or drug abuse patient.[facility] HospitalIn the event this information is protected by the Federal Confidentiality of Alcohol and Drug Abuse Patient Records regulations: The Federal rules restrict any use of the information to criminally investigate or prosecute any alcohol or drug abuse patient.[facility] HospitalIn the event this information is protected by the Federal Confidentiality of Alcohol and Drug Abuse Patient Records regulations: The Federal rules restrict any use of the information to criminally investigate or prosecute any alcohol or drug abuse patient.[facility] HospitalIn the event this information is protected by the Federal Confidentiality of Alcohol and Drug Abuse Patient Records regulations: The Federal rules restrict any use of the information to criminally investigate or prosecute any alcohol or drug abuse patient.[facility] HospitalIn the event this information is protected by the Federal Confidentiality of Alcohol and Drug Abuse Patient Records regulations: The Federal rules restrict any use of the information to criminally investigate or prosecute any alcohol or drug abuse patient.[facility] HospitalIn the event this information is protected by the Federal Confidentiality of Alcohol and Drug Abuse Patient Records regulations: The Federal rules restrict any use of the information to criminally investigate or prosecute any alcohol or drug abuse patient.[facility] HospitalIn the event this information is protected by the Federal Confidentiality of Alcohol and Drug Abuse Patient Records regulations: The Federal rules restrict any use of the information to criminally investigate or prosecute any alcohol or drug abuse patient.[facility] HospitalIn the event this information is protected by the Federal Confidentiality of Alcohol and Drug Abuse Patient Records regulations: The Federal rules restrict any use of the information to criminally investigate or prosecute any alcohol or drug abuse patient.[facility] HospitalIn the event this information is protected by the Federal Confidentiality of Alcohol and Drug Abuse Patient Records regulations: The Federal rules restrict any use of the information to criminally investigate or prosecute any alcohol or drug abuse patient.[facility] HospitalIn the event this information is protected by the Federal Confidentiality of Alcohol and Drug Abuse Patient Records regulations: The Federal rules restrict any use of the information to criminally investigate or prosecute any alcohol or drug abuse patient.[facility] Reason for Visit (unrecogniz ed section and content) Reason Comments Colposcopy Specialty Diagnoses / Procedures Referred By Kt herbert [facility] Diagnoses Cervical high risk HPV (human papillomavirus) test positive Procedures COLPOSCOPY COLPOSCOPY CERVIX BX CERVIX & [place] [address] [place] [address] [address] Referral ID Status Reason Start Date Expiration Date V isits Requested Visits Authorized [id number] Closed Auto-Generate d Referral 02/08/2024 02/07/2025 1 1 Reason Comments Treatment Planning Reason Comments upset hasn't heard anything reg us Reason Comments cd2 ret call Specialty Diagnoses / Procedures Referred By Contac t Referred To Contact [facility] Diagnoses Encounter for fertility planning Procedures FOLLICULAR US WHI US PELVIC NONOBSTETRIC IMAGE DCMTN LIMITED/F/U Kobi Weiner PA-C [address] [place] [address] [address] Referral ID Status Reason Start Date Expiration Date Visits Requested Visits Authorized [id number] Authorized Benefit Check 10/30/2022 09/13/2023 3 3 Reason Comments metformin refill / completely out Reason Comments Patient Question Reason Comments New IVF Reason Comments Medication Problem Reason Comments cd2 , refill prescription Reason Comments Patient Question Reason Comments Infertility Specialty Diagnoses / Procedures Referred By Contac t Referred To Contact [facility] Diagnoses Encounter for fertility testing Procedures FOLLICULAR US WHI US PELVIC NONOBSTETRIC IMAGE DCMTN LIMITED/F/U Leonel Cabezas, ANGELITA.INTERNATIONAL FLIGHT ATTENDANT [address] [place] [address] [address] Referral ID Status Reason Start Date Expiration Date V isits Requested Visits Authorized [id number] Closed Auto-Generate d Referral 05/13/2023 09/13/2023 6 1 Reason Comments Returning Patient's Call Reason Comments Patient Update Specialty Diagnoses / Procedures Referred By Contac t Referred To Contact [facility] Diagnoses Encounter for fertility planning Procedures FOLLICULAR US WHI US PELVIC NONOBSTETRIC IMAGE DCMTN LIMITED/F/U Kobi Weiner PA-C [address] [place] [address] [address] Referral ID Status Reason Start Date Expiration Date V isits Requested Visits Authorized [id number] Closed Benefit Check 10/30/2022 09/13/2023 3 3 Specialty Diagnoses / Procedures Referred By Contac t Referred To Contact [facility] Diagnoses Primary female infertility Procedures FOLLICULAR US I US PELVIC NONOBSTETRIC IMAGE DCMTN LIMITED/F/U Radha Gilliam MD [address] [place] [address] [address] Referral ID Status Reason Start Date Expiration Date V isits Requested Visits Authorized [id number] Closed Auto-Generate d Referral 06/17/2023 06/16/2024 6 1 Reason Comments Refill Request Specialty Diagnoses / Procedures Referred By Contac t Referred To Contact [facility] Diagnoses Encounter for fertility testing Procedures XR HYSTEROSALPINGOGRAM CATH & SALINE/CONTRAST SONOHYSTER/HYSTEROSALPI HYSTEROSALPINGOGRAPHY RS&[place] [address] [place] [address] [place] [address] Referral ID Status Reason Start Date Expiration Date Visits Requested Visits Authorized [id number] Authorized Benefit Check 03/25/2023 09/13/2023 4 3 Reason Comments New Patient Specialty Diagnoses / Procedures Referred By Contac t Referred To Contact [facility] Diagnoses Female infertility Procedures FOLLICULAR US I US PELVIC NONOBSTETRIC IMAGE DCMTN LIMITED/F/U Leonel Cabezas APRN.CNP [address] [place] [address] [address] Referral ID Status Reason Start Date Expiration Date V isits Requested Visits Authorized [id number] Closed Auto-Generate d Referral 08/18/2023 08/17/2024 6 1 Reason Comments Initial Visit Reason Comments US Specialty Diagnoses / Procedures Referred By Kt herbert Referred To Contact [facility] Diagnoses Encounter to determine viability of , fetus 1 of multiple gestation Procedures OBSTETRIC ULTRASOUND WHI US PREG UTERUS AFTER 1ST TRIMEST GESTATION Provider, Lidar Technician Transcribe [facility] [address] [place] [address] Referral ID Status Reason Start Date Expiration Date V isits Requested Visits Authorized [id number] Closed Auto-Generate d Referral 10/22/2023 10/21/2024 1 1 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 Reason Comments Well Woman Reason Comments unsure about cycle/it is odd Reason Comments Period due this week// never had a full flow Patient Update Reason Comments Consult Reason Comments discuss her cycle lmp Thursday cycle for 1 day Reason Comments lotus pt ret call states she didn't sta rt her provera Reason Comments next steps , no cycle yet Reason Comments [place] pt has ques on getting her labs in [place] Specialty Diagnoses / Procedures Referred By Kt herebrt Referred To Contact [facility] Diagnoses Female infertility Procedures FOLLICULAR US WHI US PELVIC NONOBSTETRIC IMAGE DCMTN LIMITED/F/U Kobi Weiner PA-C [address] [place] [address] [address] Referral ID Status Reason Start Date Expiration Date V isits Requested Visits Authorized [id number] Closed Benefit Check 03/09/2024 03/09/2025 3 1 Specialty Diagnoses / Procedures Referred By Kt t Referred To Contact [facility] Diagnoses Fertility testing Procedures SONOHYSTEROGRAPHY (SIS) US WHI SALINE INFUS SONOHYSTEROGRAPHY W/COLOR DOPPLER CATH & SALINE/CONTRAST SONOHYSTER/HYSTEROSALPI HYSTEROSALPINGOGRAPHY RS&[place] [address] [address] [place] [address] [facility] [address] [place] [address] Referral ID Status Reason Start Date Expiration Date Visits Requested Visits Authorized [id number] Authorized Benefit Check 03/09/2024 09/13/2024 3 3 Reason Comments Next Steps Specialty Diagnoses / Procedures Referred By Contac t Referred To Contact [facility] Diagnoses Encounter for fertility testing Procedures OFFICE HYSTEROSCOPY HYSTEROSCOPY BX ENDOMETRIUM&/POLYPC W/WO D&C HYSTEROSCOPY, DIAGNOSTIC ([place] [address] [place] [address] [address] Referral ID Status Reason Start Date Expiration Date V isits Requested Visits Authorized [id number] Closed Benefit Check 05/05/2024 05/05/2025 2 1 Specialty Diagnoses / Procedures Referred By Contac t Referred To Contact [facility] Diagnoses Primary female infertility Procedures FOLLICULAR US [facility] US PELVIC NONOBSTETRIC IMAGE DCMTN LIMITED/F/[place] [address] [place] [address] [address] Referral ID Status Reason Start Date Expiration Date V isits Requested Visits Authorized [id number] Closed Auto-Generate d Referral 05/26/2024 05/24/2025 5 1 Reason Comments Next Steps Specialty Diagnoses / Procedures Referred By Contac t Referred To Contact [facility] Diagnoses Female infertility Procedures FOLLICULAR US I US PELVIC NONOBSTETRIC IMAGE DCMTN LIMITED/F/U Miguel Levy, WATER SUPERVISOR.INTERNATIONAL FLIGHT ATTENDANT [address] [place] [address] [place] [address] [address] Referral ID Status Reason Start Date Expiration Date V isits Requested Visits Authorized [id number] Closed Auto-Generate d Referral 07/04/2024 07/04/2025 4 1 Reason Comments [facility] 08/06/24/ set up baselines for super ov Referral ID Status Reason Start Date Expiration Date V isits Requested Visits Authorized [id number] Closed Auto-Generate d Referral 08/08/2024 08/08/2025 4 1 Reason Comments Appointment LMP 09/07/24/ set up medicated cycle Called back today is day 3/ set up super ov Specialty Diagnoses / Procedures Referred By Kt t Referred To Contact [facility] Diagnoses Female infertility Procedures FOLLICULAR US I US PELVIC NONOBSTETRIC IMAGE LENYTShaka LIMITED/F/[place] [address] [place] [address] [address] Referral ID Status Reason Start Date Expiration Date V isits Requested Visits Authorized [id number] Closed Benefit Check 09/09/2024 09/09/2025 3 1 Specialty Diagnoses / Procedures Referred By Kt t Referred To Contact [facility] Diagnoses Female infertility Procedures FOLLICULAR US I US PELVIC NONOBSTETRIC IMAGE DCMTN LIMITED/F/[place] [address] [place] [address] [facility] [address] [place] [address] Reason Onset Date Comments Refill Request 10/03/2024 Reason Comments Back Pain Lower to mid Reason Comments needs to schedule us for so cycle Referral ID Status Reason Start Date Expiration Date Visits Requested Visits Authorized [id number] Authorized Patient Cleared INN/SMCP Payor Auth Obtained Benefit Check 09/09/2025 8 8 Reason Comments Sleep Apnea DOWNLOADED MACHINE A ND THERE WAS ZERO USAGE PT STATES SHE ISN'T USING BECAUSE SHE NEEDS NEW SUPPLIES Reason Comments Annual Exam Reason Comments Results Reason Comments Cough Headache Sore Throat Reason Comments Annual Exam Reason Onset Date Comments Refill Request 11/08/2024 Reason Comments Appointment Reason Comments needs letrozole today Specialty Diagnoses / Procedures Referred By Contac t Referred To Contact [facility] Diagnoses Encounter for fertility testing Procedures FOLLICULAR US I US PELVIC NONOBSTETRIC IMAGE DCMTN LIMITED/F/U Leonel Cabezas APRN.CNP [address] [place] [address] Phone: tel: fax: [address] [address] Referral ID Status Reason Start Date Expiration Date V isits Requested Visits Authorized [id number] Closed Auto-Generate d Referral 11/14/2024 11/11/2025 6 1 Reason Comments Cyst INCLUSION CYST, REF BY DR. MCKEON Specialty Diagnoses / Procedures Referred By Contac t Referred To Contact General Surgery Diagnoses Inclusion cyst David Mckeon MD [address] [place] [address] Phone: tel: fax: Millie Ellis MD [address] [place] [address] Phone: tel: fax: Referral ID Status Reason Start Date Expiration Date V isits Requested Visits Authorized [id number] Closed Specialty Services Required 11/08/2024 11/08/2025 1 1 Specialty Diagnoses / Procedures Referred By Contac t Referred To Contact [facility] Diagnoses Female infertility Procedures FOLLICULAR US WHI US PELVIC NONOBSTETRIC IMAGE DCMTN LIMITED/F/[place] [address] [place] [address] Phone: tel: fax: [facility] [address] [place] [address] Referral ID Status Reason Start Date Expiration Date Visits Requested Visits Authorized [id number] Authorized Patient Cleared INN/SMCP Payor Auth Obtained Benefit Check 4 09/09/2025 8 8 Reason Comments progesterone shots Reason Comments Cyst INCISION CHECK, PATH OLOGY Reason Comments +hpt on darwin re labwork Mary Ann / [place] please call pt re +hpt Reason Comments +hpt lmp 11/11 did super ov cycle req lab work Reason Comments Care Teams (unrecognized sec tion and content) Job Lithographer Relationship Specialty Start Date End Date Saturnino Valdez [address] [facility] [place] [address] Referring SPUDDER 10/04/20 Job Lithographer Relationship Specialty Start Date End Date Saturnino Valdez [address] [place] [address] Referring SPUDDER 10/04/20 Job Lithographer Relationship Specialty Start Date End Date Saturnino Valdez[address] [place] [address] Referring SPUDDER 10/04/20 Job Lithographer Relationship Specialty Start Date End Date Saturnino Valdez[address] [place] [address] Referring SPUDDER 10/04/20 Job Lithographer Relationship Specialty Start Date End Date Saturnino Valdez[address] [place] [address] Referring SPUDDER 10/04/20 Job Lithographer Relationship Specialty Start Date End Date Saturnino Valdez[address] [place] [address] Referring SPUDDER 10/04/20 Job Lithographer Relationship Specialty Start Date End Date Saturnino Valdez[address] [place] [address] Referring SPUDDER 10/04/20 Job Lithographer Relationship Specialty Start Date End Date Saturnino Valdez[address] [place] [address] Referring SPUDDER 10/04/20 Job Lithographer Relationship Specialty Start Date End Date Saturnino Valdez[address] [place] [address] Referring SPUDDER 10/04/20 Job Lithographer Relationship Specialty Start Date End Date [place] [address] Referring SPUDDER 10/04/20 Job Lithographer Relationship Specialty Start Date End Date Saturnino Valdez [address] [place] [address] Referring SPUDDER 10/04/20 Job Lithographer Relationship Specialty Start Date End Date Saturnino Valdez [address] [place] [address] Referring SPUDDER 10/04/20 Job Lithographer Relationship Specialty Start Date End Date Saturnino Valdez [address] [place] [address] Referring SPUDDER 10/04/20 Job Lithographer Relationship Specialty Start Date End Date Saturnino Valdez [address] [place] [address] Referring SPUDDER 10/04/20 Job Lithographer Relationship Specialty Start Date End Date Saturnino Valdez [address] [place] [address] Referring SPUDDER 10/04/20 Job Lithographer Relationship Specialty Start Date End Date Saturnino Valdez [address] [place] [address] Referring SPUDDER 10/04/20 Job Lithographer Relationship Specialty Start Date End Date Saturnino Valdez [address] [place] [address] Referring SPUDDER 10/04/20 Job Lithographer Relationship Specialty Start Date End Date Saturnino Valdez [address] [place] [address] Referring SPUDDER 10/04/20 Job Lithographer Relationship Specialty Start Date End Date Saturnino Valdez [address] [place] [address] Referring SPUDDER 10/04/20 Job Lithographer Relationship Specialty Start Date End Date Saturnino Valdez [address] [place] [address] Referring SPUDDER 10/04/20 Job Lithographer Relationship Specialty Start Date End Date Saturnino Valdez [address] [place] [address] Referring SPUDDER 10/04/20 Job Lithographer Relationship Specialty Start Date End Date Saturnino Valdez [address] [place] [address] Referring SPUDDER 10/04/20 Job Lithographer Relationship Specialty Start Date End Date Saturnino Valdez [address] [place] [address] Referring SPUDDER 10/04/20 Job Lithographer Relationship Specialty Start Date End Date Saturnino Valdez [address] [place] [address] Referring SPUDDER 10/04/20 Job Lithographer Relationship Specialty Start Date End Date Saturnino Valdez [address] [place] [address] Referring SPUDDER 10/04/20 Team Status: Active Member Role Status Dates David Mckeon MD Primary Care Provider Active Team Status: Inactive Member Role Status Dates David Mckeon MD Primary Care Provider Active Start: September 30, 2023 End: October 01, 2023 Charly Matute DO Emergency Provider Active Sta rt: September 30, 2023 End: October 01, 2023 Job Lithographer Relationship Specialty Start Date End Date David Mckeon MD [address] [facility] [address] PCP - General Family Medicine 10/16/23 Job Lithographer Relationship Specialty Start Date End Date Saturnino Valdez [address] [place] [address] Referring Fountain Roller Assembler 10/04/20 Job Lithographer Relationship Specialty Start Date End Date Saturnino Valdez [address] [place] [address] Referring Fountain Roller Assembler 10/04/20 Job Lithographer Relationship Specialty Start Date End Date Saturnino Valdez [address] [place] [address] Referring Fountain Roller Assembler 10/04/20 Job Lithographer Relationship Specialty Start Date End Date Saturnino Valdez [address] [place] [address] Referring Fountain Roller Assembler 10/04/20 Job Lithographer Relationship Specialty Start Date End Date Saturnino Valdez [address] [place] [address] Referring Fountain Roller Assembler 10/04/20 Job Lithographer Relationship Specialty Start Date End Date Saturnino Valdez [address] [place] [address] Referring Fountain Roller Assembler 10/04/20 Job Lithographer Relationship Specialty Start Date End Date Saturnino Valdez [address] [place] [address] Referring Fountain Roller Assembler 10/04/20 Job Lithographer Relationship Specialty Start Date End Date Saturnino Valdez [address] [place] [address] Referring Fountain Roller Assembler 10/04/20 Job Lithographer Relationship Specialty Start Date End Date Saturnino Valdez [address] [place] [address] Referring Fountain Roller Assembler 10/04/20 Job Lithographer Relationship Specialty Start Date End Date Saturnino Valdez [address] [place] [address] Referring Fountain Roller Assembler 10/04/20 Job Lithographer Relationship Specialty Start Date End Date Saturnino Valdez [address] [place] [address] Referring Fountain Roller Assembler 10/04/20 Job Lithographer Relationship Specialty Start Date End Date Saturnino Valdez [address] [place] [address] Referring Fountain Roller Assembler 10/04/20 Job Lithographer Relationship Specialty Start Date End Date Saturnino Valdez [address] [place] [address] Referring Fountain Roller Assembler 10/04/20 Job Lithographer Relationship Specialty Start Date End Date Saturnino Valdez [address] [place] [address] Referring Fountain Roller Assembler 10/04/20 Job Lithographer Relationship Specialty Start Date End Date Saturnino Valdez [address] [place] [address] Referring Fountain Roller Assembler 10/04/20 Job Lithographer Relationship Specialty Start Date End Date Saturnino Valdez [address] [place] [address] Referring Fountain Roller Assembler 10/04/20 Job Lithographer Relationship Specialty Start Date End Date Saturnino Valdez [address] [place] [address] Referring Fountain Roller Assembler 10/04/20 Job Lithographer Relationship Specialty Start Date End Date Saturnino Valdez [address] [place] [address] Referring Fountain Roller Assembler 10/04/20 Job Lithographer Relationship Specialty Start Date End Date Saturnino Valdez [address] [place] [address] Referring Fountain Roller Assembler 10/04/20 Job Lithographer Relationship Specialty Start Date End Date Saturnino Valdez [address] [place] [address] Referring Fountain Roller Assembler 10/04/20 Job Lithographer Relationship Specialty Start Date End Date Saturnino Valdez [address] [place] [address] Referring Fountain Roller Assembler 10/04/20 Job Lithographer Relationship Specialty Start Date End Date Saturnino Valdez [address] [place] [address] Referring Fountain Roller Assembler 10/04/20 Job Lithographer Relationship Specialty Start Date End Date Saturnino Valdez [address] [place] [address] Referring Fountain Roller Assembler 10/04/20 Job Lithographer Relationship Specialty Start Date End Date Saturnino Valdez [address] [place] [address] Referring Fountain Roller Assembler 10/04/20 Job Lithographer Relationship Specialty Start Date End Date Saturnino Valdez [address] [place] [address] Referring Fountain Roller Assembler 10/04/20 Job Lithographer Relationship Specialty Start Date End Date Saturnino Valdez [address] [place] [address] Referring Fountain Roller Assembler 10/04/20 Job Lithographer Relationship Specialty Start Date End Date Saturnino Valdez [address] [place] [address] Referring Fountain Roller Assembler 10/04/20 Job Lithographer Relationship Specialty Start Date End Date Saturnino Valdez [address] [place] [address] Referring Fountain Roller Assembler 10/04/20 Job Lithographer Relationship Specialty Start Date End Date David Mckeon MD [address] [place] [address] PCP - General Family Medicine 08/27/17 Job Lithographer Relationship Specialty Start Date End Date Saturnino Valdez [address] [place] [address] Referring Fountain Roller Assembler 10/04/20 Job Lithographer Relationship Specialty Start Date End Date Saturnino Valdez [address] [place] [address] Referring Fountain Roller Assembler 10/04/20 Job Lithographer Relationship Specialty Start Date End Date David Mckeon MD [address] [place] [address] PCP - General Family Medicine 08/27/17 Job Lithographer Relationship Specialty Start Date End Date David Mckeon MD [address] [place] [address] PCP - General Family Medicine 08/27/17 Job Lithographer Relationship Specialty Start Date End Date David Mckeon MD [address] [place] [address] PCP - General Family Medicine 08/27/17 Job Lithographer Relationship Specialty Start Date End Date David Mckeon MD [address] [place] [address] PCP - General Family Medicine 08/27/17 Job Lithographer Relationship Specialty Start Date End Date David Mckeon MD [address] [place] [address] PCP - General Family Medicine 08/27/17 Job Lithographer Relationship Specialty Start Date End Date David Mckeon MD [address] [place] [address] PCP - General Family Medicine 08/27/17 Job Lithographer Relationship Specialty Start Date End Date David Mckeon MD [address] [place] [address] PCP - General Family Medicine 08/27/17 Job Lithographer Relationship Specialty Start Date End Date Saturnino Valdez [address] [place] [address] Referring Fountain Roller Assembler 10/04/20 Job Lithographer Relationship Specialty Start Date End Date David Mckeon MD [address] [place] [address] PCP - General Family Medicine 08/27/17 Job Lithographer Relationship Specialty Start Date End Date Saturnino Valdez [address] [place] [id number] Referring Fountain Roller Assembler 10/04/20 Team Status: Inactive Member Role Status Dates David Mckeon MD Primary Care Provider Active Start: November 25, 2024 End: November 25, 2024 Miguel Chacon APRN Attending Provider Active Start: November 25, 2024 End: November 25, 2024 Job Lithographer Relationship Specialty Start Date End Date Saturnino Valdez [address] [place] [address] Referring Fountain Roller Assembler 10/04/20 Job Lithographer Relationship Specialty Start Date End Date Saturnino Valdez [address] [place] [address] Referring Fountain Roller Assembler 10/04/20 Job Lithographer Relationship Specialty Start Date End Date David Mckeon MD PCP - General Family Medicine 10/16/23 Job Lithographer Relationship Specialty Start Date End Date David Mckeon MD PCP - General Family Medicine 10/16/23 Goals (unrecognized section and content) Goals may be documented in a n alternate sectionNot on filedocumented as of this encounterNot on filedocumented as of this encounterNot on filedocumented as of this encounterNot on filedocumented as of this encounterNot on filedocumented as of this encounterNot on filedocumented as of this encounterNot on filedocumented as of this encounterNot on filedocumented as of this encounterNot on filedocumented as of this encounterNot on filedocumented as of this encounterNot on filedocumented as of this encounterGoals may be documented in an alternate sectionNot on filedocumented as of this encounter FOR RECORDS PERTAINING TO PATIENTS WHO ARE OR HAVE BEEN ENROLLED IN A CHEMICAL DEPENDENCY/SUBSTANCEABUSE PROGRAM, SOME INFORMATION MAY BE OMITTED. This clinical summary was aggregated from multiple sources. Caution should be exercised in using it in the provision of clinical care. This summary normalizes information from multiple sources, and as a consequence, information in this document may materially change the coding, format and clinical context of patient data. In addition, data may be omitted in some cases. CLINICAL DECISIONS SHOULD BE BASED ON THE PRIMARY CLINICAL RECORDS. [employer] provides no warranty or guarantee of the accuracy or completeness of information in this document.
[2025-01-24 06:36] LABS: Basophils Absolute Auto 0.1 10^3/uL (0.0-0.1); Basophils Percent Auto 0.7 % (0.2-2.0); Eosinophils Absolute Auto 0.2 10^3/uL (0.0-0.7); Eosinophils Percent Auto 1.5 % (0.9-7.0); Hemoglobin 12.9 g/dL (12.0-16.0); Immature Granulocytes Abs Auto 0.06 10^3/uL (0.00-0.03); Immature Granulocytes Pct Auto 0.6 % (0.0-0.5); Lymphocytes Absolute Auto 3.7 10^3/uL (1.2-3.8); Lymphocytes Percent Auto 34.1 % (20.5-60.0); Mean Corpuscular HGB Conc 33.9 g/dL (29.9-35.2); Mean Corpuscular Hemoglobin 30.1 pg (26.7-34.0); Mean Corpuscular Volume 88.8 fL (81.0-99.0); Mean Platelet Volume 8.5 fL (9.5-13.5); Monocytes Absolute Auto 0.8 10^3/uL (0.3-0.8); Monocytes Percent Auto 7.7 % (1.7-12.0); Neutrophils Percent Auto 55.4 % (43.0-75.0); Platelet Count 294 10^3/uL (150-450); Red Blood Count 4.28 10^6/uL (4.20-5.40); Red Cell Distribution Width 13.1 % (11.0-15.0); White Blood Count 10.7 10^3/uL (4.0-11.0)
[2025-01-24 06:57] LABS: Glucometer 93 mg/dL (74-106)
[2025-01-24] MEDS: SCOPOLAMINE 1 MG/3 DAYS TRANSDERM PATCH 1 PATCH TD (07:08)
[2025-01-24] MEDS: LACTATED RINGER'S SOLUTION 1,000 ML 50 ML IV ×2 (07:08→08:56)
[2025-01-24 07:21] LABS: HCG Quantitative 5469 mIU/mL
--- NOTE | 2025-01-24 07:55 | PM.ONB ---
Brief Operative Note Date of procedure: 01/24/25 Pre-op diagnosis general: missed first trimester Post-op diagnosis: same as pre-op Procedure: NAME OF PROCEDURE: [D&C suction ] PROCEDURE: The patient was taken back to the OR where she was given general anesthesia without difficulty. She was then placed in dorsal lithotomy position, prepped and draped in the normal sterile fashion. A weighted speculum was placed in the patient's vagina and the anterior lip of the cervix was identified and grasped with a single-tooth tenaculum. The patient was then gently dilated using Hegar dilators after we had sounded roughly to 8 cm. The suction curette was then tested. The suction curette was then placed in the patient's uterus and products of conception were removed using an 10-N[place]ian suction curette. ?Excellent hemostasis was noted. The patient tolerated the procedure well. Sponge, lap, and needle counts were correct x 2. All instruments were then removed from the patient's vagina. The patient was taken to the Recovery Room in stable condition. ?? Anesthesia: MAC Surgeon: Conor Cortes Estimated blood loss (mL): 10 Pathology: other (poc) Condition: stable Disposition: PACU
[2025-01-24] MEDS: HYDROMORPHONE HCL 0.5 MG/0.5 ML SYRINGE IV (08:37)
[2025-01-24] MEDS: PROMETHAZINE HCL 25 MG TABLET PO (08:38)
--- NOTE | 2025-01-24 08:53 | PC.NURSE ---
patient has history of nausea. Patient given oral nausea medication given.
--- NOTE | 2025-01-24 08:59 | PC.NURSE ---
Patient brought out to pacu with LR and pitocin. bag completed at this time about 600 ml of fluid infused
--- OUTSIDE RECORDS SUMMARY | 2025-01-31 00:08 | XMS_ITS | CCD ---
Author Organization [facility] Care Team Providers Care Operational Review Sergeant Name Role Phone AMMY, DR HERNANDEZ Primary [...] Attending UnavailDavid Barros MD Primary Care Provider [phone] MICHEL JOSEPH Referring Unavailable DAVID MCKEON Primary [...] (antibiotic) (4 sources) Amoxicillin Drug Allergy 10-15-2020 [facility] Work Phone: (6 sources) Amoxicillin; Translations: [AMOXICILLIN] Drug Allergy 12-29-2013 [facility] Repository (18 sources) Penicillins; Translations: [PENICILLINS] Drug allergy (disorder) 12-29-2013 [facility] Repository (1 source) Penicillins Drug Allergy 10-15-2020 [facility] (20 sources) Penicillins Drug Allergy 08-27-2017 [facility] (20 sources) Amoxicillin Drug Allergy 05-15-2009 [facility] (7 sources) Penicillin G Drug Allergy 10-16-2023 [facility] (6 sources) Penicillins Drug Allergy 10-[facility]-2020 [facility] (1 source) Penicillins Drug allergy (disorder) 11-25-2024 [facility] Repository Medications Current Medications Medication Drug [...] tablet 2 10/17/2019 11/04/2023 Discontinued chorionic gonadotropin 89070 unt/ml injectable solution (20 sources) Gonadotropin Start: [...] By: Keagan Ferguson on 01-25-2025 Pathology study [facility] Other Phone: ALL CBC WITH AUTO DIFFon BASOPHILS ABSOLUTE AUTO 0.[address] [facility] Basophils/100 WBC (Bld) 0.7 % 0.2 - 2.0 % [facility] Eosinophils/100 WBC (Bld) 1.5 % 0.9 - 7.0 % [facility] Erythrocyte distribution width (RBC) [Ratio] 13.1 % 11.0 - 15.0 % [facility] Hematocrit (Bld) [Volume fraction] 38 % 36.0 - 48.0 % [facility] Hemoglobin (Bld) [Mass/Vol] 12.9 g/dL 12.0 - 16.0 g/dL [facility] IMMATURE GRANULOCYTES ABS AUTO 0.06 High [facility] Immature granulocytes/100 WBC (Bld) 0.6 % High 0.0 - 0.5 % [facility] Interpretation and review of laboratory results Abnormal [facility] LYMPHOCYTES ABSOLUTE AUTO 3.7 [facility] Lymphocytes/100 WBC (Bld) 34.1 % 20.5 - 60.0 % [facility] MCH (RBC) [Entitic mass] 30.1 pg 26.7 - 34.0 pg [facility] MCHC (RBC) [Mass/Vol] 33.9 g/dL 29.9 - 35.2 g/dL [facility] MCV (RBC) [Entitic vol] 88.8 fL 81.0 - 99.0 fL [facility] MONOCYTES ABSOLUTE AUTO 0.[address] [facility] Monocytes/100 WBC (Bld) 7.7 % 1.7 - 12.0 % [facility] NEUTROPHILS ABSOLUTE AUTO 6 [facility] Neutrophils/100 WBC (Bld) 55.4 % 43.0 - 75.0 % [facility] Platelet mean volume (Bld) [Entitic vol] 8.5 fL Low 9.5 - 13.5 fL [facility] TBH EO # 0.2 [facility] TB PLT 294 [facility] RBC 4.28 [facility] WBC 10.7 [facility] Miguel 01-24-2025 L - -------- Specimen: [id number] Received: 01/24/25 Status: JULIOCESAR Weaverannabel Num: [id number] Spec Type: Surgical Subm Dr: Conor Cortes Tissues: A Products of Conception - Spontaneous or Missed (PRODUCTS OF CONCEPT Procedures: HE/2, Gross/Micro L4 -------- Age/ Patient Sex Location Account Attending Physician -------- Aleida Arizmendi 39/F LABELL [id number] Conor Cortes -------- SPEC NUM: [id number] RECD: 01/24/25 STATUS: JULIOCESAR WEAVERAnnabel NUM: [id number] ISSAC: 01/24/[address]: Conor Cortes ENTERED: 01/24/[address]: Gudelia,Lab SPEC TYPE: Surgical DEPT: DOUG FERNÁNDEZ ENTERED BY: [id number] RECV BY: [id number] ORDERED: HE/2, Gross/Micro L4 ORDERED: HE/2, Gross/Micro [...] with chorionic villi. No tissue is identified. Beef Boner sections of the chorionic villi are submitted in A1 with sales solutions representative sections of the decidua submitted in A2. (2, , [id number] A)JENY -------- Specimen: [id number] Received: 01/24/25 Status: JULIOCESAR Valdivia Num: [id number] Spec Type: Surgical Subm : Conor Cortes Tissues: A Products of Conception - Spontaneous or Missed (PRODUCTS OF CONCEPT Procedures: HE/2, Gross/Micro L4 -------- Patient: Aleida Arizmendi [id number] (Continued) -------- Specimen: [id number] Received: 01/24/25 (Continued) Signed (signature on file) Keagan Ferguson MD 01/25/25 0940 -------- Specimen: [id number] Received: 01/24/25 Status: JULIOCESAR Valdivia Num: [id number] Spec Type: Surgical Subm Dr: Conor Cortes Tissues: A Products of Conception - Spontaneous or Missed (PRODUCTS OF CONCEPT Procedures: Kylie VALENTIN/Cinthya L4 -------- Patient: Aleida Arizmendi [id number] (Continued) -------- Specimen: [id number] Received: 01/24/25 (Continued) Microscopic Description Microscopic examination is performed CPT Codes 73162 -------- -------- Specimen: [id number] Received: 01/24/25 Status: JULIOCESAR Valdivia Num: [id number] Spec Type: Surgical Subm Dr: Conor Cortes Tissues: A Products of Conception - Spontaneous or Missed (PRODUCTS OF CONCEPT Procedures: HE/Elida Gross/Micro L4 -------- Patient: Aleida Arizmendi [id number] (Continued) -------- Signed (signature on file) ChinFunmiHayden Ferguson, MD 01/25/25 0940 Normal [facility] TB PREG QUANT HCGon 025 HCG QUANTITATIVE 6357 mIU/mL [facility] Comment on above: 5-50 0.2-1 WEEK 50-500 1-2 WEEKS 100-5,000 2-3 WEEKS 500-10,000 3-4 WEEKS 1,000-50,000 4-5 WEEKS 10,000-100,000 5-6 WEEKS 15,000-200,000 6-8 WEEKS 10,000-100,000 2-3 MONTHS [facility] US OB TRANSVAGINALon 025 [place] [address] Ultrasound Report Signed Patient: ALEIDA ARIZMENDI MR#: [id number] : 1985 Acct:[id number] Age/Sex: 39 / F ADM Date: 01/23/25 Loc: US Attending Dr: LEONEL SALES APRN, CNM Ordering Physician: LEONEL SALES APRN, CNM Date of Service: 01/23/25 Procedure(s): US OB transvaginal Accession Number(s): [id number] cc: DAVID MCKEON ; LEONEL SALES APRN, CNM [place] [address] Patient Name: ALEIDA ARIZMENDI MRN: [facility]:[id number] date: 1985 Sex: F Assigned Patient Location: US Current Patient Location: US Accession/Order Number: [id number] Exam Date: 01/23/2025 16:08 Report Date: 01/23/2025 [...] Jr., D.O. 01/23/2025 4:13 PM Dictation Location: [place] [address] Electronically authenticated by: [id number] Y Date: 01/23/2025 16:13 Dictated By: Jose A Orona M.D. Signed By: 01/23/251615 DD/ 161 TD/TT: Qm Nurse: [facility] Radiology, Radiologist, MD - 01/23/2025 [place] [address] Ultrasound Report Signed Patient: ALEIDA ARIZMENDI MR#: [id number] : 1985 Acct:[id number] Age/Sex: 39 / F ADM Date: 01/23/25 Loc: US Attending Dr: LEONEL SALES APRN, CNM Ordering Physician: LEONEL SALES APRN, CNM Date of Service: 01/23/25 Procedure(s): US OB transvaginal Accession Number(s): [id number] cc: DAVID MCKEON ; LEONEL SALES APRN, CNM The [place] [id number] Patient Name: ALEIDA ARIZMENDI MRN: [facility]:[id number] date: 1985 Sex: F Assigned Patient Location: US Current Patient Location: US Accession/Order Number: [id number] Exam Date: 01/23/2025 16:08 Report Date: 01/23/2025 [...] Jr., D.O. 01/23/2025 4:13 PM Dictation Location: [place] [address] Electronically authenticated by: [id number] Y Date: 01/23/2025 16:13 Dictated By: Jose A Orona M.D. Signed By: 01/23/25 1616 DD/ 1613 TD/TT: Qm Nurse: [facility] Radiology Study observation (narrative) [facility] US OB TRANSVAGINALOrdered By : Radiologist Radiology on 01-23-2025 [facility] Work Phone: US OB TRANSVAGINALon 025 [place] [address] Ultrasound Report Signed Patient: ALEIDA ARIZMENDI MR#: [id number] : 1985 Acct:[id number] Age/Sex: 39 / F ADM Date: 01/17/25 Loc: US Attending Dr: LEONEL SALES APRN, CNM Ordering Physician: LEONEL SALES APRN, CNM Date of Service: 01/17/25 Procedure(s): US OB transvaginal Accession Number(s): [id number] cc: DAVID MCKEON ; LEONEL SALES APRN, CNM The [address] [address] Patient Name: ALEIDA ARIZMENDI MRN: [facility]:[id number] date: 1985 Sex: F Assigned Patient Location: Current Patient Location: US Accession/Order Number: [id number] Exam Date: 01/17/2025 15:54 Report Date: 01/17/2025 [...] Jr., D.O. 01/17/2025 4:09 PM Dictation Location: [place] [address] Electronically authenticated by: [id number] Y Date: 01/17/2025 16:09 Dictated By: Jose A Orona M.D. Signed By: 01/17/25 1617 DD/ 1608 TD/TT: Qm Nurse: [facility] Radiology, Radiologist, - 01/17/[address] [address] Ultrasound Report Signed Patient: ALEIDA ARIZMENDI MR#: [id number] : 1985 Acct:[id number] Age/Sex: 39 / F ADM Date: 01/17/25 Loc: US Attending Dr: LEONEL SALES APRN, CNM Ordering Physician: LEONEL SALES APRN, CNM Date of Service: 01/17/25 Procedure(s): US OB transvaginal Accession Number(s): [id number] cc: DAVID MCKEON ; LEONEL SALES APRN, CNM [place] [address] Patient Name: ALEIDA ARIZMENDI MRN: [facility]:[id number] date: 1985 Sex: F Assigned Patient Location: US Current Patient Location: US Accession/Order Number: [id number] Exam Date: 01/17/2025 15:54 Report Date: 01/17/2025 [...] Jr., D.O. 01/17/2025 4:09 PM Dictation Location: [place] [address] Electronically authenticated by: [id number] Y Date: 01/17/2025 16:09 Dictated By: Jose A Orona M.D. Signed By: 01/17/25 1612 DD/ 1609 TD/TT: Qm Nurse: [facility] Radiology Study observation (narrative) [facility] US OB TRANSVAGINALOrdered By : Radiologist Radiology on 01-17-2025 [facility] Work Phone: B-HCG SerPl-[place] 5 [place] [address].0 m[IU]/mL High <5.0 [facility] Comment on above: Order Comment: Speci men Type: BLOOD SPECIMEN Ordering Facility: [facility] Address: [address] [place] [address] Result Comment: BÁRBARA TITATIVE HCG NORMAL RANGES Weeks of Gestation (Weeks Since LMP) 3 Weeks (5.8-71.2 mIU/mL) 4 Weeks (9.5-750 mIU/mL) 5 Weeks (217-7138 mIU/mL) 6 Weeks (158-56440 mIU/mL) 7 Weeks (3697-008704 mIU/mL) 8 Weeks (24547-624269 mIU/mL) 9 Weeks (66805-780098 mIU/mL) 10 Weeks (29892-435810 mIU/mL) 12 Weeks (87932-702521 mIU/mL) Referenced to 4th IS of [facility] Performed By: #### 1 0501-5, 2839-9, 2243-4 #### [facility] CLIA [id number] [address] [place] [address] [facility] CNNURSEon 01-09-2025 CNNURSE Nurse Visit (REIAV) ALEIDA ARIZMENDI ([id number]) 1985 F Date Time Provider Department 01/09/25 10:40 AM US TECH 1 [facility] REJ DEVINV During your visit today, we recorded the following information about you: Sushila Levy APRN.PONY RIDE OPERATOR 01/09/2025 4:05 PM Signed Spoke with Aleida, Reviewed diagnosis of missed from today's ultrasound. Discussed options for medical, surgical or expectant management. Leaning towards medical management but wants to further review with her prior to making final decisions. Is meeting with her PHOTOGRAPHIC EQUIPMENT ASSEMBLER tomorrow, may follow up with care from that office as well. Will call back and let us know how she wishes to proceed. Sushila Levy APRN.PONY RIDE OPERATOR January 09, 2025 4:05 PM Referring Provider: MICHEL JOSEPH [[id number]] Allergies As of Date: 01/09/2025 Noted Allergy Reaction AMOXACILLIN (AMOXICILLIN) 03/09/2023 4 - Hives Comments: Skin test is negative. Challenge pending PENICILLINS 10/15/2020 4 - Hives Date Reviewed: 11/25/2024 Reviewed by: Nilton Zhang RN - Fully Assessed Visit Diagnosis:Encounter for test, result positive ([facility]) [Z32.01] Order(s):OBSTETRIC ULTRASOUND [facility] [[id number]] Order #: [id number]. #:[id number] IEWPOINTQty: 1 Prescriptions as of 01/09/2025 - [...] Status:Closed by SUSHILA LEVY on 01/09/25 Normal [facility] Examination level ultrasound on 01-09-2025 Indication [...] Read By: Arley Parikh M.D. MATERNAL MEDICINE [facility] Radiology Study observation (narrative) [facility] CNNURSEon 12-30-2024 CNNURSE Nurse Visit (REIBD) ALDORAYRAYALEIDA FERNANDES ([id number]) 1985 F Date Time Provider Department 12/30/24 10:10 AM [employer] 3 [facility] BEAC REIBD During your visit today, we [...] December 30, 2024 1:32 PM Heena Orr APRN.PONY RIDE OPERATOR 12/30/2024 5:37 PM Signed spoke with Aleida Please schedule the patient for the following- Location: [place] Provider: nurse Visit type: scan Reason for visit/appointment notes: scan Date: 01/09 Time (requested): 1040 If slot is full, please schedule the closest open slot. Call to patient needed: no Referring Provider: KOBI WEINER [[id number]] Allergies As of Date: 12/30/2024 Noted Allergy Reaction AMOXACILLIN (AMOXICILLIN) 03/09/2023 4 - Hives Comments: Skin test is negative. Challenge pending PENICILLINS 10/15/2020 4 - Hives Date Reviewed: 11/25/2024 Reviewed by: Nilton Zhang, LAUREN - Fully Assessed Visit Diagnosis:Encounter for test, result positive ([facility]) [Z32.01] Order(s):OBSTETRIC ULTRASOUND [facility] [[id number]] Order #: [id number]. #:[id number] IEWPOINTQty: 1 OBSTETRIC ULTRASOUND [facility] [[id number]] Order #: [id number]: 1 FUTURE Prescriptions as of 12/30/2024 - [...] Status:Closed by MICHEL JOSEPH on 12/30/24 Normal [facility] Examination level ultrasound on 12-30-2024 Indication [...] Read By: Michel Joseph M.D. MATERNAL MEDICINE [facility] Radiology Study observation (narrative) [facility] B-HCG SerPl-aCncon 5 HCG.beta subunit Qn 252.5 m[IU]/mL High <5.0 [facility] Comment on above: Order Comment: Speci men Type: BLOOD SPECIMEN Ordering Facility: [facility] Address: [address] [place] [address] Result Comment: BÁRBARA TITATIVE HCG NORMAL RANGES Weeks of Gestation (Weeks Since LMP) 3 Weeks (5.8-71.2 mIU/mL) 4 Weeks (9.5-750 mIU/mL) 5 Weeks (217-7138 mIU/mL) 6 Weeks (158-01234 mIU/mL) 7 Weeks (3697-590371 mIU/mL) 8 Weeks (43930-740974 mIU/mL) 9 Weeks (91267-360537 mIU/mL) 10 Weeks (71777-354093 mIU/mL) 12 Weeks (69280-413072 mIU/mL) Referenced to 4th IS of [facility] Performed By: #### 2 1198-7 #### [facility] CLIA [id number] [address] [place] [address] [place] B-HCG SerPl-aCncon 5 HCG.beta subunit Qn 164.2 m[IU]/mL High <5.0 C [facility] Comment on above: Order Comment: Speci men Type: BLOOD SPECIMEN Ordering Facility: [facility] Address: [address] [place], [place] [id number] Result Comment: BÁRBARA TITATIVE HCG NORMAL RANGES Weeks of Gestation (Weeks Since LMP) 3 Weeks (5.8-71.2 mIU/mL) 4 Weeks (9.5-750 mIU/mL) 5 Weeks (217-7138 mIU/mL) 6 Weeks (158-42180 mIU/mL) 7 Weeks (3697-350697 mIU/mL) 8 Weeks (61317-737106 mIU/mL) 9 Weeks (11540-674895 mIU/mL) 10 Weeks (82916-366152 mIU/mL) 12 Weeks (77698-869261 mIU/mL) Referenced to 4th IS of [facility] Performed By: #### 2 1198-7 #### [facility] CLIA [id number] [address] [place] [address] STATES OF [facility] Jerrell 12-09-2024 [facility] Telephone (REIBD) ALEIDA ARIZMENDI ([id number]) 1985 F Date Time Provider Department 12/09/24 [...] w*10/30/2023 Missed [O02.1] 10/30/2023 Encounter Status:Closed by AMARILIS DORMAN on 12/12/24 [facility] Telephone (REIBD) ALEIDA ARIZMENDI ([id number]) 1985 F Date Time Provider Department 12/09/24 [...] positive [Z32.01] Order(s):HCG QUANTITATIVE [SQHCGQT] Order #: [id number] STANDING Prescriptions as of 12/12/2024 - progesterone [...] by nidia (more content not included)... [facility] Telephone (REIBD) KILOALEIDA FERNANDES ([id number]) 1985 F Date Time Provider Department 11/25/24 [...] Status:Closed by IDALMIS ARIAS on 11/25/24 Normal [facility] Estradiol SerPl-ncon 11-25 E2 [Mass/Vol] 283 pg/mL High 8-37 [facility] Comment on above: Order Comment: Speci men Type: BLOOD SPECIMEN Ordering Facility: [facility] Address: [address] [place] [address] Result Comment: This test is not suitable [...] 3243 pg/mL Second trimester : 1561 to 32428 pg/mL Third trimester : 8285 to >57014 pg/mL Post-menopausal Estradiol reference range: < 41 pg/mL Reference: 1. Estradiol - E2 (Estradiol III) [package insert V 3.0 Chinese]. [facility], [place], [place], February 2016. Performed By: #### 1 0501-5, 2839-9, 2243-4 #### [facility] CLIA [id number] [facility] [place] [address] [facility] [place] Follicle Diameter USon 11-25 Indication [...] Read By: Michel Joseph M.D. MATERNAL MEDICINE [facility] Radiology Study observation (narrative) [facility]iol [facility] 11-24 E2 [Mass/Vol] 225 pg/mL High 8-37 [facility] Comment on above: Order Comment: Speci men Type: BLOOD SPECIMEN Ordering Facility: [facility] Address: [address] [place] [address] Result Comment: This test is not suitable [...] 3243 pg/mL Second trimester : 1561 to 77577 pg/mL Third trimester : 8285 to >77733 pg/mL Post-menopausal Estradiol reference range: < 41 pg/mL Reference: 1. Estradiol - E2 (Estradiol III) [package insert V 3.0 Chinese]. [facility], [place], [place], February 2016. Performed By: #### 1 0501-5, 2839-9, 2243-4 #### [facility] CLIA [id number] [facility] [place], [place] [address] [place] [address] [place] Follicle Diameter USon 11-24 [...] Read By: Jazmine Gonzalez MD MATERNAL MEDICINE [facility] Radiology Study observation (narrative) [place] [facility] Surgical Pathologyon 025 Surgical Pathology Normal [facility] Comment on above: Result Comment: [facility] [address] [place] [address] Surgical Pathology Consultation Patient Name:ALEIDA ARIZMENDI:1985 (Age: 39)Gender:FTaken:11/22/2024Reported:11/29/2024Physician(s):Delfina Ellis MD ([phone])Copy To: Rec. #:[id number]: #[id number] Final Pathologic Diagnosis Skin and soft tissue, abdomen, excisional biopsy: Benign epidermal/epidermoid inclusion cyst (one), ruptured, with marked acute inflammation, mild chronic inflammation and granulation tissue, abdomen. Report Electronically Signed Out ihw/11/29/2024IRVING MD DANIEL Interpretation performed [place] [address], License number: [id number]. Clinical History Inclusion cyst L72.0. Gross Description Received in formalin labeled UGO, abdominal cyst is a pale-butt wrinkled ellipse of skin, 2.3 x 1.1 x 0.1 cm. No lesion or area of discoloration is definitively identified. The resection margin is inked green. The specimen is serially sectioned to reveal a cystic structure filled with friable vegetative material. Two sales solutions representative cross sections are submitted in a single cassette. (1, ns, [id number],m8.1) DM. dm/11/23/2024NSK Specimen(s) Received Left abdomen Fee Codes(s): 1; 40[address] Estradiol [facility] 11-21 E2 [Mass/Vol] 69 pg/mL High 8-37 [facility] Comment on above: Order Comment: Speci men Type: BLOOD SPECIMEN Ordering Facility: [facility] Address: [address] [place] [address] Result Comment: This test is not suitable [...] 3243 pg/mL Second trimester : 1561 to 57333 pg/mL Third trimester : 8285 to >03993 pg/mL Post-menopausal Estradiol reference range: < 41 pg/mL Reference: 1. Estradiol - E2 (Estradiol III) [package insert V 3.0 Chinese]. [facility], [place], [place], February 2016. Performed By: #### 2 243-4 #### [facility] CLIA [id number] [facility] [place] [address] [place] Follicle Diameter USon 11-21 [...] Read By: Radha Gilliam M.D. MATERNAL MEDICINE [facility] Radiology Study observation (narrative) [place] [facility] Jerrell 11-14-2024 [facility] Telephone (REIBD) ALEIDA ARIZMENDI ([id number]) 1985 F Date Time Provider Department 11/14/24 [...] called stating she needs a PA. Called [facility] to discuss the PA message I received. Still showing on [facility]'s end that a PA is needed. Started cover my meds. Ayala: [id number] Drug is covered by current benefit plan. [...] Date Reviewed: 11/14/2024 Reviewed by: Leonel Cabezas APRN.PONY RIDE OPERATOR - Fully Assessed Reason for Visit: needs [...] by MARY ANN KIRKLAND on 11/15/24 Normal [facility] Estradiol SerPl-ncon 11-14 E2 [Mass/Vol] 39 pg/mL High 8-37 [facility] Comment on above: Order Comment: Speci men Type: BLOOD SPECIMEN Ordering Facility: [facility] Address: [address] [place] [address] [place] [address] Result Comment: This test is not suitable [...] 3243 pg/mL Second trimester : 1561 to 06132 pg/mL Third trimester : 8285 to >10460 pg/mL Post-menopausal Estradiol reference range: < 41 pg/mL Reference: 1. Estradiol - E2 (Estradiol III) [package insert V 3.0 Chinese]. [facility], [place], [place], February 2016. Performed By: #### 1 0501-5, 2839-9, 2243-4 #### [facility] CLIA [id number] [facility] [place] [place] [address] [facility] Follicle Diameter USon 11-14 Indication Baseline TV [...] Read By: Radha Gilliam M.D. MATERNAL MEDICINE [facility] Radiology Study observation (narrative) [place] [facility] Jerrell 11-11-2024 [facility] Telephone (REIBD) ALEIDA ARIZMENDI ([id number]) 1985 F Date Time Provider Department 11/11/24 MICHEL JOSEPH During your visit today, we recorded the following information about you: Sushila Barbour 11/11/2024 8:06 AM Signed Super ov Patient started period- calling to schedule baseline Nilton Zhang RN 11/11/2024 8:37 AM Signed Returned call to patient. Scheduled for baseline for 11/14/24 @ 0740 at [place]. Pt. States she needs refill on letrozole and trigger shot. Medication orders pended. Nilton Zhang RN November 11, 2024 8:32 AM Leonel Cabezas APRN.PONY RIDE OPERATOR 11/14/2024 7:28 AM Signed The following approved [...] by mouth once daily. Authorizing Provider: LEONEL CBAEZAS APRN.PONY RIDE OPERATOR Allergies As of Date: 11/11/2024 Noted Allergy Reaction AMOXACILLIN (AMOXICILLIN) 03/09/2023 4 - Hives Comments: Skin test is negative. Challenge pending PENICILLINS 10/15/2020 4 - Hives Date Reviewed: 10/19/2024 Reviewed by: Idalmis Arias RN - Fully Assessed Reason for Visit: Appointment [186] Primary Visit Diagnosis:Encounter for fertility testing [Z31.41] Other Visit Diagnosis:Female infertility [N97.9] Order(s):ESTRADIOL-17 B BLD [SQE2] Order #: [id number] STANDING FOLLICULAR US [facility] [4237255] Order #: [id number]: 1 STANDING chorionic gonadotropin (PREGNYL) 10,000 unit [...] Status:Closed by LEONEL CABEZAS on 11/14/24 Normal [facility] CBC AND AUTO DIFFon 11-08-19 ABSOLUTE BASOPHIL 0.1 X10E9/L Normal 0.0-0.2 [facility] Comment on above: Performed By: #### C BCA, CMP, THYR, 19443-0 #### [facility] [facility] ([id number]) [address], [address] [place] [address] ABSOLUTE NEUTROPHIL 4.8 X10E9/L Normal 1.5-6.6 [facility] Comment on above: Performed By: #### C BCA, CMP, THYR, 75130-9 #### [facility] ([id number]) [address], [address] [place] [address] Basophils/100 WBC (Bld) 0.6 % Normal P [facility] Comment on above: Performed By: #### C BCA, CMP, THYR, 19650-2 #### [facility] ([id number]) [address], [address] [place] [address] Eosinophils (Bld) [#/Vol] 0.2 10*3/uL Normal 0.0-0.4 [facility] Comment on above: Performed By: #### C BCA, CMP, THYR, 75498-1 #### [facility] ([id number]) [address], [address] [place] [address] Eosinophils/100 WBC (Bld) 2.6 % Normal [facility] Comment on above: Performed By: #### C BCA, CMP, THYR, 31558-3 #### [facility] ([id number]) [address], [address] [place] [address] Erythrocyte distribution width (RBC) [Ratio] 14.3 % Normal 11.5-15.0 [facility] Comment on above: Performed By: #### C BCA, CMP, THYR, 43127-0 #### [facility] ([id number]) [address], [address] [place] [address] Hematocrit (Bld) [Volume fraction] 38.7 % Normal 35-47 [facility] Comment on above: Performed By: #### C BCA, CMP, THYR, 79945-7 #### [facility] ([id number]) [address], [address] [place] [address] Hemoglobin (Bld) [Mass/Vol] 13.2 g/dL Normal 11.7-15.5 [facility] Comment on above: Performed By: #### C BCA, CMP, THYR, 73121-3 #### [facility] ([id number]) [address], [address] [place] [address] Lymphocytes (Bld) [#/Vol] 2.8 10*3/uL Normal 1.0-3.5 [facility] Comment on above: Performed By: #### C BCA, CMP, THYR, 96933-2 #### [facility] ([id number]) [address], [address] [place] [address] Lymphocytes/100 WBC (Bld) 33.6 % Normal [facility] Comment on above: Performed By: #### C BCA, CMP, THYR, 36495-4 #### [facility] ([id number]) [address], [address] [place] [address] MCH (RBC) [Entitic mass] 30.4 pg Normal 27-34 [facility] Comment on above: Performed By: #### C BCA, CMP, THYR, 25623-5 #### [facility] ([id number]) [address], [address] [place] [address] MCHC (RBC) [Mass/Vol] 34.1 g/dL Normal 32-36 [facility] Comment on above: Performed By: #### C BCA, CMP, THYR, 86329-0 #### [facility] ([id number]) [address], [address] [place] [address] MCV (RBC) [Entitic vol] 89 fL Normal 80-100 [facility] Comment on above: Performed By: #### C BCA, CMP, THYR, 16440-0 #### [facility] ([id number]) [address], [address] [place] [address] Monocytes (Bld) [#/Vol] 0.5 10*3/uL Normal 0-0.9 [facility] Comment on above: Performed By: #### C BCA, CMP, THYR, 03783-5 #### [facility] ([id number]) [address], [address] [place] [address] Monocytes/100 WBC (Bld) 6.2 % Normal [facility] Comment on above: Performed By: #### C BCA, CMP, THYR, 73026-0 #### [facility] ([id number]) [address], [address] [place] [address] Neutrophils/100 WBC (Bld) 57.0 % Normal [facility] Comment on above: Performed By: #### C BCA, CMP, THYR, 33109-2 #### [facility] ([id number]) [address] [address] [place] [address] Platelet mean volume (Bld) [Entitic vol] 7.8 fL Normal 7-12 [facility] Comment on above: Performed By: #### C BCA, CMP, THYR, 46183-8 #### [facility] ([id number]) [address] [address] Platelets (Bld) [#/Vol] 338 10*3/uL Normal 150-450 [facility] Comment on above: Performed By: #### Jeison BCA, CMP, THYR, 58973-7 #### [facility] ([id number]) [address] [address] [place] [address] RBC COUNT 4.34 X10E12/L Normal 3.80-5.20 [facility] Comment on above: Performed By: #### Jeison BCA, CMP, THYR, 72162-1 #### [facility] ([id number]) [address] [address] [place] [address] WBC (Bld) [#/Vol] 8.5 10*3/uL Normal 4.0-11.0 [facility] Comment on above: Performed By: #### Jeison BCA, CMP, THYR, 15345-5 #### [facility] ([id number]) [address] [address] [place] [address] Jerrell 11-08-2024 NAVIN Telephone (KAREN) ALEIDA ARIZMENDI ([id number]) 1985 F Date Time Provider Department 11/08/24 [...] by SUSHILA LEVY on 11/08/24 Normal [facility] METABOLIC PANE Miguel 11-08-2024 Albumin [Mass/Vol] 3.8 g/dL Normal 3.2-5.3 [facility] Comment on above: Performed By: #### C BCA, CMP, THYR, 77048-5 #### [facility] ([id number]) [address], [address] [place] [address] ALP [Catalytic activity/Vol] 54 U/L Normal 39-130 [facility] Comment on above: Performed By: #### C BCA, CMP, THYR, 85802-2 #### [facility] ([id number]) [address], [address] [place] [address] ALT [Catalytic activity/Vol] 32 U/L High 0-31 [facility] Comment on above: Performed By: #### C BCA, CMP, THYR, 29709-9 #### [facility] ([id number]) [address], [address] [place] [address] Anion gap [Moles/Vol] 9 mmol/L Normal 5-15 [facility] Comment on above: Performed By: #### C BCA, CMP, THYR, 20213-0 #### [facility] ([id number]) [address], [address] [place] [address] AST [Catalytic activity/Vol] 32 U/L Normal 0-41 [facility] Comment on above: Performed By: #### C BCA, CMP, THYR, 29394-1 #### [facility] ([id number]) [address], [address] [place] [address] Bilirubin [Mass/Vol] 0.4 mg/dL Normal 0.3-1.2 [facility] Comment on above: Performed By: #### C BCA, CMP, THYR, 86627-8 #### [facility] ([id number]) [address], [address] [place] [address] Calcium [Mass/Vol] 9.0 mg/dL Normal 8.5-10.5 [facility] Comment on above: Performed By: #### C BCA, CMP, THYR, 62679-0 #### [facility] ([id number]) [address], [address] [place] [address] Chloride [Moles/Vol] 106 mmol/L Normal 98-109 [facility] Comment on above: Performed By: #### C BCA, CMP, THYR, 25569-6 #### [facility] ([id number]) [address], [address] [place] [address] CO2 [Moles/Vol] 25 mmol/L Normal 22-32 [facility] Comment on above: Performed By: #### C BCA, CMP, THYR, 25917-7 #### [facility] ([id number]) [address], [address] [place] [address] Creatinine [Mass/Vol] 0.83 mg/dL Normal 0.40-1.00 [facility] Comment on above: Result Comment: METH OD TRACEABLE TO IDMS STANDARD Performed By: #### C BCA, CMP, THYR, 99047-7 #### [facility] ([id number]) [address] [place] [address] eGFR (CKD-EPI) NON-RACE DEPENDENT >90 Normal >59 [facility] Comment on above: Result Comment: Reported eGFR is based on the CKD-EPI 2020 equation that does not use a race coefficient. Performed By: #### C BCA, CMP, THYR, 67019-8 #### [facility] ([id number]) [address], [address] [place] [address] Glucose [Mass/Vol] 94 mg/dL Normal 65-99 [facility] Comment on above: Performed By: #### C BCA, CMP, THYR, 02108-5 #### [facility] ([id number]) [address], [address] [place] [address] Potassium [Moles/Vol] 3.5 mmol/L Normal 3.5-5.0 [facility] Comment on above: Performed By: #### C BCA, CMP, THYR, 55101-3 #### [facility] ([id number]) [address], [address] [place] [address] Protein [Mass/Vol] 6.8 g/dL Normal 6.0-8.0 [facility] Comment on above: Performed By: #### C BCA, CMP, THYR, 35004-5 #### [facility] ([id number]) [address] [place] [address] Sodium [Moles/Vol] 140 mmol/L Normal 134-146 [facility] Comment on above: Performed By: #### C BCA, CMP, THYR, 46360-8 #### [facility] ([id number]) [address] [address] [place] [address] Urea nitrogen [Mass/Vol] 8 mg/dL Normal 5-23 [facility] Comment on above: Performed By: #### C BCA, CMP, THYR, 41717-2 #### [facility] ([id number]) [address] [address] [place] [address] HGB A1C (GLYCO-HGB)on 2024 Glucose [Mass/Vol] 114 mg/dL Normal [facility] Comment on above: Performed By: #### H A1C #### [facility] ([id number]) [address] [address] HbA1c (Bld) [Mass fraction] 5.6 % Normal 4.4-5.6 [facility] Comment on above: Result Comment: NOTE ADA Guidelines Result HgbA1c Normal : less than 5.7 % Prediabetes : 5.7 % to 6.4 % Diabetes : > 6.4 % Use with caution in patients with abnormal hemoglobin variants as the half-life of red blood cells and in vivo glycation rates are affected. Performed By: #### H A1C #### [facility] ([id number]) [address] [address] Lipid 1996 panelon Cholesterol [Mass/Vol] 162 mg/dL Normal 150-200 [facility] Comment on above: Performed By: #### C BCA, CMP, THYR, 93858-9 #### [facility] ([id number]) [address] [address] [place] [address] Cholesterol in HDL [Mass/Vol] 36 mg/dL Low >39 [facility] Comment on above: Result Comment: HDL <40 mg/dL - High Risk HDL > or = 40mg/dL- Desirable HDL >60 mg/dL - Negative Risk Performed By: #### C BCA, CMP, THYR, 33480-9 #### [facility] ([id number]) [address], [address] [place] [address] Cholesterol in VLDL [Mass/Vol] 123 mg/dL High 0-30 [facility] Comment on above: Performed By: #### C BCA, CMP, THYR, 59625-7 #### [facility] ([id number]) [address] [address] [place] [address] CHOLESTEROL:HDL 4.5 Normal 1.0-5.0 [facility] Comment on above: Performed By: #### C BCA, CMP, THYR, 41574-2 #### [facility] ([id number]) [address], [facility] [address] [place] [address] LDL (CALC) RESULT BELOW DETECTABLE RANGE Normal <130 [facility] Comment on above: Performed By: #### C BCA, CMP, THYR, 06156-0 #### [facility] ([id number]) [address] [address] [place] [address] Triglyceride [Mass/Vol] 615 mg/dL High 27-150 P [facility] Comment on above: Performed By: #### C BCA, CMP, THYR, 89505-4 #### [facility] ([id number]) [address] [address] [place] [address] THYROID PROFILEon 11-08-2024 Free T4 [Mass/Vol] 0.65 ng/dL Normal 0.61-1.60 [facility] Comment on above: Performed By: #### C BCA, CMP, THYR, 76370-4 #### [facility] ([id number]) [address] [address] [place] [address] TSH 1.64 uIU/mL Normal 0.49-4.67 [facility] Comment on above: Performed By: #### C BCA, CMP, THYR, 13614-8 #### [facility] ([id number]) [address] [facility] [place] [address] CNNURSEon 10-23-2024 CNNURSE Nurse Visit (REIBD) ALEIDA ARIZMENDI ([id number]) 1985 F Date Time Provider Department 10/23/24 8:30 AM NURSE LOUISA [facility] ERNESTINE REIBD During your visit today, we [...] [N97.9] Order(s):ESTRADIOL-17 B BLD [SQE2] Order #: [id number]. #:[id number] Prescriptions as of 10/26/2024 - metFORMIN (GLUCOPHAGE) [...] Status:Closed by IVY GARDNER on 10/23/24 Normal [facility] E2 [Mass/Vol]on 10-23-2024 [facility] ESTRADIOL-17B BLDon 10-23-19 E2 [Mass/Vol] 408 pg/mL [facility] Comment on above: This test is not [...] 3243 pg/mL Second trimester : 1561 to 91211 pg/mL Third trimester : 8285 to >28857 pg/mL Post-menopausal Estradiol reference range: < 41 pg/mL Reference: 1. Estradiol - E2 (Estradiol III) [package insert V 3.0 Chinese]. [facility], [place], [place], February 2016. Estradiol SerPl-mCncon 10-23 E2 [Mass/Vol] 408 pg/mL Normal [facility] Comment on above: Order Comment: Speci men Type: BLOOD SPECIMENOrdering Facility: [facility] Address: [address] [place] [address] Result Comment: This test is not suitable [...] 3243 pg/mL Second trimester : 1561 to 67109 pg/mL Third trimester : 8285 to >46195 pg/mL Post-menopausal Estradiol reference range: < 41 pg/mL Reference: 1. Estradiol - E2 (Estradiol III) [package insert V 3.0 Chinese]. [facility], [place], [place], February 2016. Performed By: #### 2 243-4 ####[facility] [place] LABCLIA [id number] [place] [id number] [facility] Follicle Diameter USon 10-23 Indication Follicle monitoring [...] Read By: Arley Parikh M.D. MATERNAL MEDICINE [facility] Radiology Study observation (narrative) [facility] Estradiol [facility] 10-21 E2 [Mass/Vol] 175 pg/mL [facility] 8-37 [facility] Comment on above: Order Comment: Speci men Type: BLOOD SPECIMEN Ordering Facility: [facility] Address: [address] [place] [address], [place] [address] Result Comment: This test is not suitable [...] 3243 pg/mL Second trimester : 1561 to 70921 pg/mL Third trimester : 8285 to >69278 pg/mL Post-menopausal Estradiol reference range: < 41 pg/mL Reference: 1. Estradiol - E2 (Estradiol III) [package insert V 3.0 Chinese]. [facility], [place], [place], February 2016. Performed By: #### 2 243-4 #### [facility] CLIA [id number] [address] [facility] [place] [address] [facility] Follicle Diameter USon 10-21 Indication Follicle monitoring [...] Read By: Michel Joseph M.D. MATERNAL MEDICINE [facility] Radiology Study observation (narrative) [facility] Estradiol [facility] 10-19 E2 [Mass/Vol] 71 pg/mL [facility] [address] Comment on above: Order Comment: Speci men Type: BLOOD SPECIMEN Ordering Facility: [facility] Address: [address] [place] [address] Result Comment: This test is not suitable [...] 3243 pg/mL Second trimester : 1561 to 07971 pg/mL Third trimester : 8285 to >76129 pg/mL Post-menopausal Estradiol reference range: < 41 pg/mL Reference: 1. Estradiol - E2 (Estradiol III) [package insert V 3.0 Chinese]. [facility], [place], [place], February 2016. Performed By: #### 2 243-4 #### [facility] CLIA [id number] [facility] [place] [address] [place] Follicle Diameter USon [...] Read By: Radha Gilliam M.D. MATERNAL MEDICINE [facility] Radiology Study observation (narrative) [facility] Estradiol [facility] 10-12 E2 [Mass/Vol] 47 pg/mL High 8-37 [facility] Comment on above: Order Comment: Speci men Type: BLOOD SPECIMEN Ordering Facility: [facility] Address: [address] [place] [address] [place] [address] Result Comment: This test is not suitable [...] 3243 pg/mL Second trimester : 1561 to 11574 pg/mL Third trimester : 8285 to >66129 pg/mL Post-menopausal Estradiol reference range: < 41 pg/mL Reference: 1. Estradiol - E2 (Estradiol III) [package insert V 3.0 Chinese]. [facility], [place], [place], February 2016. Performed By: #### 2 243-4 #### [facility] CLIA [id number] [facility] [place] [address] [facility] Follicle Diameter USon 10-12 Indication Lining Assessment [...] Read By: Radha Gilliam M.D. MATERNAL MEDICINE [facility] Radiology Study observation (narrative) [facility] Jerrell 10-10-2024 CNPN Telephone (REIBD) UGOALEIDA ([id number]) 1985 F Date Time Provider Department 10/10/24 [...] protocol as the last cycle (SO#9) [facility]: [facility] Visit type: Baseline, SO us/e2 Date: 10/12 [...] Status:Closed by MARY ANN KIRKLAND on 10/10/24 [facility] 09-21-2024 O ID: [id number] Author: CAROLINA RAMIREZ MD Service: ? Author [...] partner had another semen analysis done at [facility] in 2016 in addition to another one here in 2022. She reports they were normal, however she is uncertain whether she has access to these records and she will try to obtain them. Normal [facility] CONSULT PROGon 09-21-2024 CONSULT PROG HNO ID: [id number] Author: MICHEL JOSEPH MD Service: ? Author Type: Physician Type: Consult Progress Note Filed: 09/21/2024 13:55 Note Text: [facility] Date: 09/21/2024 Aleida Arizmendi is [...] spironolactone (ALDACTON (more content not included)... Normal [facility] Estradiol SerPl-mCncon 09-20 E2 [Mass/Vol] 481 pg/mL High 8-37 [facility] Comment on above: Order Comment: Speci men Type: BLOOD SPECIMEN Ordering Facility: [facility] Address: [address] [place] [address] Result Comment: This test is not suitable [...] 3243 pg/mL Second trimester : 1561 to 95816 pg/mL Third trimester : 8285 to >38554 pg/mL Post-menopausal Estradiol reference range: < 41 pg/mL Reference: 1. Estradiol - E2 (Estradiol III) [package insert V 3.0 Chinese]. [facility], [place], [place], February 2016. Performed By: #### 2 243-4 #### [facility] CLIA [id number] [address] [facility] [place], [place] [address] [place] [address] [place] Follicle Diameter USon 09-20 Indication [...] Read By: Zhen Sears M.D. MATERNAL MEDICINE [facility] Radiology Study observation (narrative) [facility] Estradiol SerPl-mCncon 09-19 E2 [Mass/Vol] 347 pg/mL High 8-37 [facility] Comment on above: Order Comment: Speci men Type: BLOOD SPECIMEN Ordering Facility: [facility] Address: [address] [place] [address] [place] [address] Result Comment: This test is not suitable [...] 3243 pg/mL Second trimester : 1561 to 53381 pg/mL Third trimester : 8285 to >35535 pg/mL Post-menopausal Estradiol reference range: < 41 pg/mL Reference: 1. Estradiol - E2 (Estradiol III) [package insert V 3.0 Chinese]. [facility], [place], [place], February 2016. Performed By: #### 2 243-4 #### [facility] CLIA [id number] [facility]. [address] [place] Follicle Diameter USon 09-19 [...] free fluid visualized Performed By: Chary Acevedo; [facility] [place] Read By: Arley Parikh M.D. MATERNAL MEDICINE [facility] Radiology Study observation (narrative) [facility]iol [facility] E2 [Mass/Vol] 51 pg/mL [facility] 8-37 [facility] Comment on above: Order Comment: Speci men Type: BLOOD SPECIMEN Ordering Facility: [facility] Address: [address] [place] [address] Result Comment: This test is not suitable [...] 3243 pg/mL Second trimester : 1561 to 94906 pg/mL Third trimester : 8285 to >98142 pg/mL Post-menopausal Estradiol reference range: < 41 pg/mL Reference: 1. Estradiol - E2 (Estradiol III) [package insert V 3.0 Chinese]. [facility], [place], February 2016. Performed By: #### 1 0501-5, 2839-9, 2243-4 #### [facility] CLIA [id number] [facility] [place] [address] [place] Follicle Diameter USon [...] Read By: Arley Parikh M.D. MATERNAL MEDICINE [facility] Radiology Study observation (narrative) [facility]adiol [facility]12 E2 [Mass/Vol] pg/mL Normal 8-37 [facility] Comment on above: Order Comment: Speci men Type: BLOOD SPECIMEN Ordering Facility: [facility] Address: [address] [place] [address] Result Comment: This test is not suitable [...] 3243 pg/mL Second trimester : 1561 to 02492 pg/mL Third trimester : 8285 to >52418 pg/mL Post-menopausal Estradiol reference range: < 41 pg/mL Reference: 1. Estradiol - E2 (Estradiol III) [package insert V 3.0 Chinese]. [facility], [place], February 2016. Performed By: #### 1 0501-5, 2839-9, 2243-4 #### [facility] CLIA [id number] [address] [place] [address] [place] Follicle Diameter USon [...] Read By: Arley Parikh M.D. MATERNAL MEDICINE [facility] Radiology Study observation (narrative) [facility] SerPl-aCncon 09-12-2024 Lutropin Qn 10.9 m[IU]/mL Normal See comment [facility] Comment on above: Order Comment: Speci men Type: BLOOD SPECIMEN Ordering Facility: [facility] Address: [address] [place] [address] Result Comment: Refe rence range: Follicular: 2.4-12.6 mIU/mL Midcycle: 14.0-95.6 mIU/mL Luteal: 1.0-11.4 mIU/mL [place]: 7.7-58.5 mIU/mL Performed By: #### 1 0501-5, 2839-9, 2243-4 #### [facility] CLIA [id number] [address] [facility] [place] [address] [place] Progest SerPl-mCncon 024 Progesterone [Mass/Vol] 0.3 ng/mL Normal See comment [facility] Comment on above: Order Comment: Speci men Type: BLOOD SPECIMEN Ordering Facility: [facility] Address: [address] [place] [address] Result Comment: Mens trual Cycle Progesterone Reference Ranges: Follicular: <1.0 ng/mL Ovulation: <12.1 ng/mL Luteal: 1.8 to 23.9 ng/mL. Progesterone Reference Ranges vary by gestational period: First Trimester: 11.0 to 44.3 ng/mL Second Trimester: 25.4 to 83.3 ng/mL Third Trimester: 58.7 to 214 ng/mL Post menopausal Progesterone: <0.5 ng/mL Reference: 1. Progesterone (Progesterone III) [package insert V 1.0 Chinese]. [facility], [place]. June 2015. Performed By: #### 1 0501-5, 2839-9, 2243-4 #### [facility] CLIA [id number] [facility] [place] [address] [facility] CNPNon 09-08-2024 CNPN Telephone (REIBD) ALEIDA ARIZMENDI ([id number]) 1985 F Date Time Provider Department 09/08/24 MICHEL JOSEHP During your visit today, we recorded the following information about you: Yancy Fajardo 09/09/2024 8:12 AM Signed OOT til Thursday Ivy Gardner RN 09/09/2024 9:07 AM Signed Pt calling to schedule baseline for SO cycle. Ok to start per EGR. Baseline scheduled 09/12 at 7 [place]. Ivy Gardner RN September 09, 2024 9:03 [...] Diagnosis:Female infertility [N97.9] Order(s):PROGESTERONE [SQPROG] Order #: [id number] STANDING ESTRADIOL-17B BLD [SQE2] Order #: [id number] STANDING LUTEINIZING HORMONE [SQLH] Order #: [id number] STANDING FOLLICULAR [facility] [[id number]] Order #: [id number]: 1 STANDING chorionic gonadotropin (PREGNYL) 10,000 unit [...] Encounter Status:Closed by MICHEL JOSEPH [facility]09[facility]24 [facility] Nurse Visit (REIAV) ALEIDA ARIZMENDI ([id number]) 1985 F Date Time Provider Department 08/17/24 [...] 2024 1:57 PM Referring Provider: SUSHILA LEVY [[id number]] Allergies As of Date: 08/17/2024 Noted Allergy Reaction AMOXACILLIN (AMOXICILLIN) 03/09/2023 4 - Hives Comments: Skin test is negative. Challenge pending PENICILLINS 10/15/2020 4 - Hives Date Reviewed: 08/15/2024 Reviewed by: Idalmis Arias RN - Fully Assessed Reason for Visit: Infertility [285] Visit Diagnosis:Female infertility [N97.9] Order(s):FOLLICULAR US [facility] [[id number]] Order #: [id number]. #:[id number] IEWPOINTQty: 1 Prescriptions as of 08/22/2024 - [...] Status:Closed by RADHA GILLIAM on 08/22/24 [facility] Estradiol SerPl-mCncon 08-17 E2 [Mass/Vol] 131 pg/mL High 8-37 [facility] Comment on above: Order Comment: Speci men Type: BLOOD SPECIMEN Ordering Facility: [facility] Address: [address] [place] [address] Result Comment: This test is not suitable [...] 3243 pg/mL Second trimester : 1561 to 71318 pg/mL Third trimester : 8285 to >75139 pg/mL Post-menopausal Estradiol reference range: < 41 pg/mL Reference: 1. Estradiol - E2 (Estradiol III) [package insert V 3.0 Chinese]. [facility], [place], [place], February 2016. Performed By: #### 2 243-4 #### [facility] CLIA [id number] [place] [address] [place] Follicle Diameter USon [...] Rt ovarian follicles other findings: # antral [id number] < 10 mm Left Ovary Lt ovary: [...] no free fluid visualized Performed By: Melodie Fitzgerlad RDMS Read By: Radha Gilliam M.D. MATERNAL MEDICINE [facility] Radiology Study observation (narrative) Robe mars [facility] 08-15-2024 CNNURSE Nurse Visit (REIAV) ALEIDA ARIZMENDI ([id number]) 1985 F Date Time Provider Department 08/15/24 [...] cycle per physician, see flowsheet for details. [employer] message sent. Medications reviewed and verified, instructions given. Patient denies any questions or concerns. Message sent to scheduling pool for next appt. Idalmis Arias RN August 15, 2024 1:39 PM Referring Provider: SUSHILA LEVY [[id number]] Allergies As of Date: 08/15/2024 Noted Allergy Reaction AMOXACILLIN (AMOXICILLIN) 03/09/2023 4 - Hives Comments: Skin test is negative. Challenge pending PENICILLINS 10/15/2020 4 - Hives Date Reviewed: 08/15/2024 Reviewed by: Idalmis Arias RN - Fully Assessed Reason for Visit: Infertility [285] Visit Diagnosis:Female infertility [N97.9] Order(s):FOLLICULAR US [facility] [[id number]] Order #: [id number]. #:[id number] IEWPOINTQty: 1 Prescriptions as of 08/15/2024 - [...] Status:Closed by ARLEY PARIKH on 08/15/24 [facility] E2 [Mass/Vol] 83 pg/mL High 8-37 [facility] Comment on above: Order Comment: Speci men Type: BLOOD SPECIMEN Ordering Facility: [facility] Address: [address] [place] [address] [place] [address] Result Comment: This test is not suitable [...] 3243 pg/mL Second trimester : 1561 to 22659 pg/mL Third trimester : 8285 to >24830 pg/mL Post-menopausal Estradiol reference range: < 41 pg/mL Reference: 1. Estradiol - E2 (Estradiol III) [package insert V 3.0 Chinese]. [facility], [place], [place], February 2016. Performed By: #### 1 0501-5, 2839-9, 2243-4 #### [facility] CLIA [id number] [facility] [place], [place] [address] [place] [address] [facility] Follicle Diameter [facility] 08-15 Indication Follicle monitoring Impression Right Ovary: [...] Read By: Arley Parikh M.D. MATERNAL MEDICINE [facility] Radiology Study observation (narrative) [facility] CNNURSEon 08-10-2024 CNNURSE Nurse Visit (REIAV) ALEIDA ARIZMENDI ([id number]) 1985 F Date Time Provider Department 08/10/24 [...] cycle per physician, see flowsheet for details. [employer] message sent. Medications reviewed and verified, instructions given. Patient denies any questions or concerns. Message sent to scheduling pool for next appt. Nilton Zhang RN August 10, 2024 1:19 PM Referring Provider: SUSHILA LEVY [[id number]] Allergies As of Date: 08/10/2024 Noted Allergy Reaction AMOXACILLIN (AMOXICILLIN) 03/09/2023 4 - Hives Comments: Skin test is negative. Challenge pending PENICILLINS 10/15/2020 4 - Hives Date Reviewed: 08/10/2024 Reviewed by: Nilton Zhang RN - Fully Assessed Reason for Visit: Infertility [285] Visit Diagnosis:Female infertility [N97.9] Order(s):FOLLICULAR [facility] [[id number]] Order #: [id number]. #:[id number] IEWPOINTQty: 1 Prescriptions as of 08/10/2024 - [...] Status:Closed by MICHEL JOSEPH on 08/10/24 [facility] Estradiol SerPl-mCncon 08-10 E2 [Mass/Vol] pg/mL Normal 8-37 [facility] Comment on above: Order Comment: Speci men Type: BLOOD SPECIMEN Ordering Facility: [facility] Address: [address] [place] [address] Result Comment: This test is not suitable [...] 3243 pg/mL Second trimester : 1561 to 49324 pg/mL Third trimester : 8285 to >64472 pg/mL Post-menopausal Estradiol reference range: < 41 pg/mL Reference: 1. Estradiol - E2 (Estradiol III) [package insert V 3.0 Chinese]. [facility], [place], [place], February 2016. Performed By: #### 2 243-4 #### [facility] CLIA [id number] [facility] [address] [place] Follicle Diameter USon [...] free fluid visualized Performed By: Chary Acevedo; [facility] Read By: Michel Joseph M.D. MATERNAL MEDICINE [facility] Radiology Study observation (narrative) Robe mars [facility] 08-08-2024 [facility] Telephone (REIBD) ALEIDA ARIZMENDI ([id number]) 1985 F Date Time Provider Department 08/08/24 [...] Visit Diagnosis:Female infertility [N97.9] Order(s):FOLLICULAR US [facility] [[id number]] Order #: [id number]: 1 STANDING ESTRADIOL-17B BLD [SQE2] Order #: [id number] STANDING Follitropin Beta (FOLLISTIM AQ) 300 unit/0.36 [...] AND* 1 Ea* 1 08/08/2024 08/08/2024 Route: [facility] [employer] one time only for 1 [...] Status:Closed by MARY ANN KIRKLAND on 08/09/24 [facility] ([facility] ALEIDA ARIZMENDI ([id number]) 1985 F Date Time Provider Department 07/18/24 [...] cycle per physician, see flowsheet for details. [employer] message sent. Medications reviewed and verified, instructions given. Patient denies any questions or concerns. Message sent to scheduling pool for next appt. Idalmis Arias RN July 18, 2024 1:25 PM Referring Provider: SUSHILA LEVY [[id number]] Allergies As of Date: 07/18/2024 Noted Allergy Reaction AMOXACILLIN (AMOXICILLIN) 03/09/2023 4 - Hives Comments: Skin test is negative. Challenge pending PENICILLINS 10/15/2020 4 - Hives Date Reviewed: 07/18/2024 Reviewed by: Idalmis Arias RN - Fully Assessed Reason for Visit: Infertility [285] Visit Diagnosis:Female infertility [N97.9] Order(s):FOLLICULAR [facility] [[id number]] Order #: [id number]. #:[id number] IEWPOINTQty: 1 Prescriptions as of 07/18/2024 - [...] Status:Closed by ARLEY PARIKH on 07/18/24 [facility] Estradiol SerPl-mCncon 07-18 E2 [Mass/Vol] 221 pg/mL High 8-37 [facility] Comment on above: Order Comment: Speci men Type: BLOOD SPECIMEN Ordering Facility: [facility] Address: [address], [place] [address] Result Comment: This test is not suitable [...] 3243 pg/mL Second trimester : 1561 to 36175 pg/mL Third trimester : 8285 to >20208 pg/mL Post-menopausal Estradiol reference range: < 41 pg/mL Reference: 1. Estradiol - E2 (Estradiol III) [package insert V 3.0 Chinese]. [facility], [place], [place], February 2016. Performed By: #### 1 0501-5, 2839-9, 2243-4 #### [facility] CLIA [id number] [facility] [place], [place] [address] [place] [address] [place] Follicle Diameter USon 07-18 [...] Read By: Arley Parikh M.D. MATERNAL MEDICINE [facility] Radiology Study observation (narrative) [facility] CNNURSEon 07-14-2024 CNNURSE Nurse Visit (REIAV) ALEIDA ARIZMENDI ([id number]) 1985 F Date Time Provider Department 07/14/24 [...] cycle per physician, see flowsheet for details. News in Shortshart message sent. Medications reviewed and verified, instructions given. Patient denies any questions or concerns. Message sent to scheduling pool for next appt. Please schedule the patient for the following- Location: [place] Visit type: monitoring us / e2 / Date: 07/18 @7am Gee Devries RN July 14, 2024 1:50 PM Referring Provider: SUSHILA LEVY [[id number]] Allergies As of Date: 07/14/2024 Noted Allergy Reaction AMOXACILLIN (AMOXICILLIN) 03/09/2023 4 - Hives Comments: Skin test is negative. Challenge pending PENICILLINS 10/15/2020 4 - Hives Date Reviewed: 07/07/2024 Reviewed by: Nilton Zhang RN - Fully Assessed Reason for Visit: Infertility [285] Visit Diagnosis:Female infertility [N97.9] Order(s):FOLLICULAR US [facility] [[id number]] Order #: [id number]. #:[id number] IEWPOINTQty: 1 Prescriptions as of 07/14/2024 - [...] Status:Closed by MICHEL JOSEPH on 07/14/24 [facility] Estradiol SerPl-mCncon 07-14 E2 [Mass/Vol] 48 pg/mL High 8-37 [facility] Comment on above: Order Comment: Speci men Type: BLOOD SPECIMEN Ordering Facility: [facility] Address: [facility] [place] [address] Result Comment: This test is not suitable [...] 3243 pg/mL Second trimester : 1561 to 30978 pg/mL Third trimester : 8285 to >32912 pg/mL Post-menopausal Estradiol reference range: < 41 pg/mL Reference: 1. Estradiol - E2 (Estradiol III) [package insert V 3.0 Chinese]. [facility], [place], [place], February 2016. Performed By: #### 2 243-4 #### [facility] CLIA [id number] [place] [address] [place] Follicle Diameter USon [...] Read By: Michel Joseph M.D. MATERNAL MEDICINE [facility] Radiology Study observation (narrative) [facility] CNN[facility] Nurse Visit (REIAV) ALEIDA ARIZMENDI ([id number]) 1985 F Date Time Provider Department 07/07/24 7:30 AM NURSE LOUISA [facility] REJ REIAV During your visit today, we [...] cycle per physician, see flowsheet for details. News in Shortshart message sent. Medications reviewed and verified, instructions given. Patient denies any questions or concerns. Message sent to scheduling pool for next appt. Nilton Zhang RN July 07, 2024 1:31 PM Referring Provider: SUSHILA LEVY [[id number]] Allergies As of Date: 07/07/2024 Noted Allergy Reaction AMOXACILLIN (AMOXICILLIN) 03/09/2023 4 - Hives Comments: Skin test is negative. Challenge pending PENICILLINS 10/15/2020 4 - Hives Date Reviewed: 07/07/2024 Reviewed by: Nilton Zhang RN - Fully Assessed Reason for Visit: Infertility [285] Visit Diagnosis:Female infertility [N97.9] Order(s):FOLLICULAR US [facility] [[id number]] Order #: [id number]. #:[id number] IEWPOINTQty: 1 Prescriptions as of 07/07/2024 - [...] Status:Closed by NILTON ZHANG on 07/07/24 [facility] Estradiol SerPl-mCncon 07-07 E2 [Mass/Vol] 63 pg/mL High 8-37 [facility] Comment on above: Order Comment: Speci men Type: BLOOD SPECIMEN Ordering Facility: [facility] Address: [address] [place] [address] Result Comment: This test is not suitable [...] 3243 pg/mL Second trimester : 1561 to 27041 pg/mL Third trimester : 8285 to >98991 pg/mL Post-menopausal Estradiol reference range: < 41 pg/mL Reference: 1. Estradiol - E2 (Estradiol III) [package insert V 3.0 Chinese]. [facility], [place], [place], February 2016. Performed By: #### 2 243-4 #### [facility] CLIA [id number] [facility] [place] [address] [place] Follicle Diameter USon [...] free fluid visualized Performed By: Chary Acevedo; [facility] Read By: Radha Gilliam M.D. MATERNAL MEDICINE [facility] Radiology Study observation (narrative) Robe mars [facility] 07-04-2024 [place] Telephone (REIAV) ALEIDA ARIZMENDI ([id number]) 1985 F Date Time Provider Department 07/04/24 [...] through trigger injection TIC SC sent to [facility] to review plan discussed last cycle, listed above Sent to [facility]. Location: [place] Visit type: SO baseline Date: 07/07/24 @ [...] Primary Visit Diagnosis:Female infertility [N97.9] Order(s):FOLLICULAR US [facility] [[id number]] Order #: [id number]: 1 STANDING ESTRADIOL-17B BLD [SQE2] Order #: [id number] STANDING Prescriptions as of 07/04/2024 - metFORMIN [...] Status:Closed by MARY ANN KIRKLAND on 07/04/24 [facility] (REDIGNAV[facility] ALEIDA ARIZMENDI ([id number]) 1985 F Date Time Provider Department 06/15/24 7:00 AM NURSE LOUISA [facility] REJ KAREN During your visit today, we [...] cycle per physician, see flowsheet for details. [employer] message sent. Medications reviewed and verified, instructions given. Patient denies any questions or concerns. Message sent to scheduling pool for next appt. Nilton Zhang RN June 15, 2024 1:02 PM Referring Provider: MICHEL JOSEPH [[id number]] Allergies As of Date: 06/15/2024 Noted Allergy Reaction AMOXACILLIN (AMOXICILLIN) 03/09/2023 4 - Hives Comments: Skin test is negative. Challenge pending PENICILLINS 10/15/2020 4 - Hives Date Reviewed: 06/15/2024 Reviewed by: Nilton Zhang RN - Fully Assessed Reason for Visit: Infertility [285] Visit Diagnosis:Primary female infertility [N97.9] Order(s):FOLLICULAR US [facility] [[id number]] Order #: [id number]. #:[id number] IEWPOINTQty: 1 Prescriptions as of 06/15/2024 - [...] Status:Closed by NILTON ZHANG on 06/15/24 [facility] E2 [Mass/Vol] 315 pg/mL High 8-37 [facility] Comment on above: Order Comment: Speci men Type: BLOOD SPECIMEN Ordering Facility: [facility] Address: [address] [place] [address] Result Comment: This test is not suitable [...] 3243 pg/mL Second trimester : 1561 to 82118 pg/mL Third trimester : 8285 to >83818 pg/mL Post-menopausal Estradiol reference range: < 41 pg/mL Reference: 1. Estradiol - E2 (Estradiol III) [package insert V 3.0 Chinese]. [facility], [place], [place], February 2016. Performed By: #### 1 0501-5, 2839-9, 2243-4 #### [facility] CLIA [id number] [facility] [place], [place] [address] [place] [address] Follicle Diameter [facility] 06-15 Indication Follicle monitoring Impression Right Ovary: [...] Read By: Radha Gilliam M.D. MATERNAL MEDICINE [facility] Radiology Study observation (narrative) [facility]-2024 Lutropin Qn 4.1 m[IU]/mL Normal See comment [facility] Comment on above: Order Comment: Speci men Type: BLOOD SPECIMEN Ordering Facility: [facility] Address: [address] [place] [address] Result Comment: Refe rence range: Follicular: 2.4-12.6 mIU/mL Midcycle: 14.0-95.6 mIU/mL Luteal: 1.0-11.4 mIU/mL Post Sylwia: 7.7-58.5 mIU/mL Performed By: #### 1 0501-5, 2839-9, 2243-4 #### [facility] CLIA [id number] [facility] [place], [place] [address] [place] [address] Progest SerPl-mCncon 024 Progesterone [Mass/Vol] 0.4 ng/mL Normal See comment [facility] Comment on above: Order Comment: Speci men Type: BLOOD SPECIMEN Ordering Facility: [facility] Address: [address] [place] [address] Result Comment: Mens trual Cycle Progesterone Reference Ranges: Follicular: <1.0 ng/mL Ovulation: <12.1 ng/mL Luteal: 1.8 to 23.9 ng/mL. Progesterone Reference Ranges vary by gestational period: First Trimester: 11.0 to 44.3 ng/mL Second Trimester: 25.4 to 83.3 ng/mL Third Trimester: 58.7 to 214 ng/mL Post menopausal Progesterone: <0.5 ng/mL Reference: 1. Progesterone (Progesterone III) [package insert V 1.0 Chinese]. [facility], [place], [place]. June 2015. Performed By: #### 1 0501-5, 2839-9, 3-4 #### [facility] CLIA [id number] [facility] [place] [address] [facility] CNN[facility]SE Nurse Visit (REIAV) ALEIDA ARIZMENDI ([id number]) 1985 F Date Time Provider Department 06/13/24 8:15 AM NURSE JASSO [facility] WILLIAM WEAVERDIGNAAlek During your visit today, we [...] cycle per physician, see flowsheet for details. [employer] message sent. Medications reviewed and verified, instructions given. Patient denies any questions or concerns. Message sent to scheduling pool for next appt. Location: [place] Visit type: IVF us/e2/p4/lh Date: 06/15 @ 0700 Mary Ann Kirkland RN June 13, 2024 12:44 PM Referring Provider: MICHEL JOSEPH [[id number]] Allergies As of Date: 06/13/2024 Noted Allergy Reaction AMOXACILLIN (AMOXICILLIN) 03/09/2023 4 - Hives Comments: Skin test is negative. Challenge pending PENICILLINS 10/15/2020 4 - Hives Date Reviewed: 06/03/2024 Reviewed by: Nilton Zhang RN - Fully Assessed Reason for Visit: Infertility [285] Visit Diagnosis:Primary female infertility [N97.9] Order(s):FOLLICULAR US I [[id number]] Order #: [id number]. #:[id number] IEWPOINTQty: 1 LUTEINIZING HORMONE [SQLH] Order #: [id number] FUTURE PROGESTERONE [SQPROG] Order #: [id number] FUTURE ESTRADIOL-17B BLD [SQE2] Order #: [id number] FUTURE Prescriptions as of 06/13/2024 - metFORMIN [...] by MARY ANN KIRKLAND on 06/13/24 [facility] Estradiol SerPl-mCncon 06-13 E2 [Mass/Vol] 259 pg/mL High 8-37 [facility] Comment on above: Order Comment: Speci men Type: BLOOD SPECIMEN Ordering Facility: [facility] Address: [address], [place] [address] Result Comment: This test is not suitable [...] 3243 pg/mL Second trimester : 1561 to 55634 pg/mL Third trimester : 8285 to >53000 pg/mL Post-menopausal Estradiol reference range: < 41 pg/mL Reference: 1. Estradiol - E2 (Estradiol III) [package insert V 3.0 Chinese]. [facility], [place], [place], February 2016. Performed By: #### 2 243-4 #### [facility] CLIA [id number] [address] [facility] [place] [address] [place] Follicle Diameter USon [...] free fluid visualized Performed By: Chary Acevedo; [facility] Read By: Arley Parikh M.D. MATERNAL MEDICINE [facility] Radiology Study observation (narrative) [facility] CNNURSEon 06-10-2024 CNNURSE Nurse Visit (REIAV) LESLI ARIMZENDILE ([id number]) 1985 F Date Time Provider Department 06/10/24 [...] cycle per physician, see flowsheet for details. News in Shortshart message sent. Medications reviewed and verified, instructions [...] Modules accepted: Orders Referring Provider: MICHEL JOSEPH [[id number]] Allergies As of Date: 06/10/2024 Noted Allergy Reaction AMOXACILLIN (AMOXICILLIN) 03/09/2023 4 - Hives Comments: Skin test is negative. Challenge pending PENICILLINS 10/15/2020 4 - Hives Date Reviewed: 06/03/2024 Reviewed by: Nilton Zhang RN - Fully Assessed Reason for Visit: Infertility [285] Visit Diagnosis:Primary female infertility [N97.9] Order(s):[facility] [[id number]] Order #: [id number]. #:[id number] IEWPOINTQty: 1 metFORMIN (GLUCOPHAGE) 500 mg tabletTake [...] Status:Closed by NILTON ZHANG on 06/10/24 [facility] Estradiol SerPl-ncon 06-10 E2 [Mass/Vol] 160 pg/mL High 8-37 [facility] Comment on above: Order Comment: Speci men Type: BLOOD SPECIMEN Ordering Facility: [facility] Address: [address], [place] [address] Result Comment: This test is not suitable [...] 3243 pg/mL Second trimester : 1561 to 62995 pg/mL Third trimester : 8285 to >43413 pg/mL Post-menopausal Estradiol reference range: < 41 pg/mL Reference: 1. Estradiol - E2 (Estradiol III) [package insert V 3.0 Chinese]. [facility], [place], February 2016. Performed By: #### 2 243-4 #### [facility] CLIA [id number] [facility] [place] [address] [facility] Follicle Diameter [facility] 06-10 Indication Follicle monitoring Impression Right Ovary: [...] Read By: Jazmine Gonzalez MD MATERNAL MEDICINE [facility] Radiology Study [facility] (narrative) [facility] Nurse Visit (MEGIAV) ALEIDA ARIZMENDI ([id number]) 1985 F Date Time Provider Department 06/06/24 [...] cycle per physician, see flowsheet for details. News in Shortshart message sent. Medications reviewed and verified, instructions given. Patient denies any questions or concerns. Message sent to scheduling pool for next appt. Location: [place] Visit type: so us/e2 Date: 06/10 @ 7am Mary Ann Kirkland RN June 06, 2024 3:02 PM Referring Provider: MICHEL JOSEPH [[id number]] Allergies As of Date: 06/06/2024 Noted Allergy Reaction AMOXACILLIN (AMOXICILLIN) 03/09/2023 4 - Hives Comments: Skin test is negative. Challenge pending PENICILLINS 10/15/2020 4 - Hives Date Reviewed: 06/03/2024 Reviewed by: Nilton Zhang RN - Fully Assessed Reason for Visit: Infertility [285] Visit Diagnosis:Primary female infertility [N97.9] Order(s):FOLLICULAR US [facility] [[id number]] Order #: [id number]. #:[id number] IEWPOINTQty: 1 Prescriptions as of 06/06/2024 - [...] by MARY ANN KIRKLAND on 06/06/24 [facility] Estradiol SerPl-mCncon 06-06 E2 [Mass/Vol] 79 pg/mL High 8-37 [facility] Comment on above: Order Comment: Speci men Type: BLOOD SPECIMEN Ordering Facility: [facility] Address: [address] [place] [address] Result Comment: This test is not suitable [...] 3243 pg/mL Second trimester : 1561 to 53813 pg/mL Third trimester : 8285 to >78716 pg/mL Post-menopausal Estradiol reference range: < 41 pg/mL Reference: 1. Estradiol - E2 (Estradiol III) [package insert V 3.0 Chinese]. [facility], [place], February 2016. Performed By: #### 2 243-4 #### [facility] CLIA [id number] [address] [facility] [place] [address] [place] Follicle Diameter USon [...] Read By: Arley Parikh M.D. MATERNAL MEDICINE [facility] Radiology Study observation (narrative) [facility] CNNURSEon 06-03-2024 CNNURSE Nurse Visit (REIAV) ALEIDA ARIZMENDI ([id number]) 1985 F Date Time Provider Department 06/03/24 [...] cycle per physician, see flowsheet for details. [employer] message sent. Medications reviewed and verified, instructions given. Patient denies any questions or concerns. Message sent to scheduling pool for next appt. Nilton Zhang RN June 03, 2024 12:50 PM Referring Provider: MICHEL JOSEPH [[id number]] Allergies As of Date: 06/03/2024 Noted Allergy Reaction AMOXACILLIN (AMOXICILLIN) 03/09/2023 4 - Hives Comments: Skin test is negative. Challenge pending PENICILLINS 10/15/2020 4 - Hives Date Reviewed: 06/03/2024 Reviewed by: Nilton Zhang RN - Fully Assessed Reason for Visit: Infertility [285] Visit Diagnosis:Primary female infertility [N97.9] Order(s):FOLLICULAR [facility] [[id number]] Order #: [id number]. #:[id number] IEWPOINTQty: 1 Prescriptions as of 06/03/2024 - [...] Status:Closed by MICHEL JOSEPH on 06/03/24 [facility] Estradiol SerPl-[facility] 06-03 E2 [Mass/Vol] 86 pg/mL High 8-37 [facility] Comment on above: Order Comment: Speci men Type: BLOOD SPECIMEN Ordering Facility: [facility] Address: [address] [place] [address] [place] [address] Result Comment: This test is not suitable [...] 3243 pg/mL Second trimester : 1561 to 25424 pg/mL Third trimester : 8285 to >28025 pg/mL Post-menopausal Estradiol reference range: < 41 pg/mL Reference: 1. Estradiol - E2 (Estradiol III) [package insert V 3.0 Chinese]. [facility], [place], [place], February 2016. Performed By: #### 1 0501-5, 2839-9, 2243-4 #### [facility] CLIA [id number] [facility] [place] [address] [place] Follicle Diameter USon [...] Read By: Michel Joseph M.D. MATERNAL MEDICINE [facility]narrative[facility] Nurse Visit (REIAV) ALEIDA ARIZMENDI ([id number]) 1985 F Date Time Provider Department 05/27/24 7:00 AM NURSE LOUISA [facility] REJ REIAV During your visit today, we [...] cycle per physician, see flowsheet for details. News in Shortshart message sent. Medications reviewed and verified, instructions given. Patient denies any questions or concerns. Message sent to scheduling pool for next appt. Nilton Zhang RN May 27, 2024 1:06 PM Referring Provider: KOBI WEINER [[id number]] Allergies As of Date: 05/27/2024 Noted Allergy Reaction AMOXACILLIN (AMOXICILLIN) 03/09/2023 4 - Hives Comments: Skin test is negative. Challenge pending PENICILLINS 10/15/2020 4 - Hives Date Reviewed: 05/27/2024 Reviewed by: Nilton Zhang RN - Fully Assessed Reason for Visit: Infertility [285] Visit Diagnosis:Female infertility [N97.9] Order(s):FOLLICULAR [facility] [[id number]] Order #: [id number]. #:[id number] IEWPOINTQty: 1 Prescriptions as of 05/27/2024 - [...] Status:Closed by NILTON ZHANG on 05/27/24 [facility] Estradiol SerPl-ncon 05-27 E2 [Mass/Vol] 35 pg/mL Normal 8-37 [facility] Comment on above: Order Comment: Speci men Type: BLOOD SPECIMEN Ordering Facility: [facility] Address: [address] [place] [address] Result Comment: This test is not suitable [...] 3243 pg/mL Second trimester : 1561 to 12333 pg/mL Third trimester : 8285 to >93185 pg/mL Post-menopausal Estradiol reference range: < 41 pg/mL Reference: 1. Estradiol - E2 (Estradiol III) [package insert V 3.0 Chinese]. [facility], [place], [place], February 2016. Performed By: #### 2 243-4 #### [facility] CLIA [id number] [facility] [address] [facility] Follicle Diameter USon 05-27 Indication Follicle [...] Read By: Jazmine Gonzalez MD MATERNAL MEDICINE [facility] Radiology Study observation (narrative) [facility] TYPE + SCREENon 05-27-2024 ABO O Normal [facility] Comment on above: Order Comment: Speci men Type: BLOOD SPECIMEN Ordering Facility: [facility] Address: [address] [place] [address] Performed By: #### 1 0501-5, 1222-9, 2243-4 #### [facility] CLIA [id number] [address] [facility] [place] [address] [facility] HISTORICAL AB SCR STATUS Negative Normal [facility] Comment on above: Order Comment: Speci men Type: BLOOD SPECIMEN Ordering Facility: [facility] Address: [address] [place] [address] Performed By: #### 1 0501-5, 28399, 2243-4 #### [facility] CLIA [id number] [address] [facility] [place] [address] [facility] [place] Rh Nom (Bld) Positive Normal [facility] Comment on above: Order Comment: Speci men Type: BLOOD SPECIMEN Ordering Facility: [facility] Address: [address] [place] [address] Performed By: #### 1 0501-5, 2839-9, 2243-4 #### [facility] CLIA [id number] [address] [facility] [place] [address] [facility] TYPE AND SCREEN EXPIRATION 05/30/2024 23:59 Normal [facility] Comment on above: Order Comment: Speci men Type: BLOOD SPECIMEN Ordering Facility: [facility] Address: [address] [place] [address] Performed By: #### 1 0501-5, 2839-9, 2243-4 #### [facility] CLIA [id number] [address] [facility] [place] [address] [facility] 05-24-2024 HNO ID: [id number] Author: MICHEL JOSEPH MD Service: ? Author [...] Count Sperm M 365.50 % Motile Sperm (%FL + %FELT PULLER) >=40 % 76 Forward Progression 3 = [...] follow up with me. Michel Joseph MD [facility] CNCOon 05-13-2024 CNCO Letter Text [facility] CNOVon 05-13-2024 CNOV Office Visit (IVFBE) ALEIDA ARIZMENDI ([id number]) 1985 F Date Time Provider Department 05/13/24 [...] Michel Joseph MD Referring Provider: MICHEL JOSEPH [[id number]] Allergies As of Date: 05/13/2024 Noted Allergy Reaction AMOXACILLIN (AMOXICILLIN) 03/09/2023 4 - Hives Comments: Skin test is negative. Challenge pending PENICILLINS 10/15/2020 4 - Hives Date Reviewed: 05/13/2024 Reviewed by: Aleida Gardner RN - Fully Assessed Primary Visit Diagnosis:Pre-operati ve laboratory examination [Z01.812] Other Visit Diagnoses:Endometrial polyp [N84.0] Encounter for fertility testing [Z31.41] Order(s):HCG QUAL UR B/O [[id number]] Order #: [id number] SURGICAL PATHOLOGY [[id number]] Order #: [id number]. #:[id number] Prescriptions as of 05/15/2024 - Norethin Misael-Eth [...] Status:Closed by MICHEL JOSEPH on 05/15/24 [facility] HCG QUAL UR B/OOrdered By: Shaka Gardner on 05-13-2024 status Negative neg - pos [facility] Quality Check Yes yes/no [facility] SURGICAL PATHOLOGYon 024 CASE REPORT [facility] Comment on above: Order Comment: Speci men Type: TISSUE SPECIMEN Ordering Facility: [facility] Address: [address] [place] [address] Result Comment: Surg ica Pathology Report Case: [id number] Authorizing Provider: Odette Villa MD Collected: 05/13/2024 12:26 PM [facility] Received: 05/13/2024 03:34 PM Pathologist: Harry Hodge MD Specimen: Endometrium, Biopsy Performed By: #### S #### [facility] CLIA [id number] [address] [place] [address] [place] CLINICAL HISTORY 38yo with something on imaging concerning for polyp [facility] Comment on above: Order Comment: Speci men Type: TISSUE SPECIMEN Ordering Facility: [facility] Address: [address] [place] [address] Performed By: #### S #### [facility] CLIA [id number] [address] [place] [address] [place] FINAL DIAGNOSIS [facility] Comment on above: Order Comment: Speci men Type: TISSUE SPECIMEN Ordering Facility: [facility] Address: [address] [place] [address] Result Comment: A. E ndometrium, biopsy: - Proliferative endometrium. ACV/dsh 05/18/2024 Performed By: #### S #### [facility] CLIA [id number] [address] [place] [address] [place] FINAL PERFORMING LAB Normal [facility] Comment on above: Order Comment: Speci men Type: TISSUE SPECIMEN Ordering Facility: [facility] Address: [address] [place] [address] Result Comment: Diag nostic interpretation performed at [facility], [address] [place] [address] CLIA# [id number] Intelligence Senior Sergeant: Vincent Leon M.D. Performed By: #### S #### [facility] CLIA [id number] [address] [place] [address] [place] GROSS DESCRIPTION Normal [facility] Comment on above: Order Comment: Speci men Type: TISSUE SPECIMEN Ordering Facility: [facility] Address: [address] [place] [address] Result Comment: A. E ndometrium, Biopsy Received in formalin are multiple butt to butt-white, soft feathery segments of tissue admixed mucinous material aggregating to 0.4 x 0.2 x 0.1 cm. Totally submitted in one cassette. DB May 13, 2024 11:22 PM Gross examination performed at [facility], [address] [place] [address] Performed By: #### S #### [facility] CLIA [id number] [address] [place] [address] CNPNon 05-05-2024 CNPN Telephone (MEGIAV) ALEIDA ARIZMENDI ([id number]) 1985 F Date Time Provider Department 05/05/24 [...] Date Reviewed: 04/29/2024 Reviewed by: Sushila Levy APRN.PONY RIDE OPERATOR - Fully Assessed Prescriptions as of 05/05/2024 [...] Encounter Status:Closed by NILTON ZHANG on 05/05/24 [facility] Jerrell 05-04-2024 ADELEN Telephone (REIBD) ALEIDA ARIZMENDI ([id number]) 1985 F Date Time Provider Department 05/04/24 [...] Date Reviewed: 04/29/2024 Reviewed by: Sushila Levy APRN.PONY RIDE OPERATOR - Fully Assessed Reason for Visit: Patient Question [8123] Prescriptions as of 05/04/2024 - Norethin Misael-Eth [...] Encounter Status:Closed by NILTON ZHANG on 05/04/24 [facility] Jerrell 05-03-2024 NAVIN Telephone (REIBD) KILOALEIDA FERNANDES ([id number]) 1985 F Date Time Provider Department 05/03/24 [...] Date Reviewed: 04/29/2024 Reviewed by: Sushila Levy APRN.PONY RIDE OPERATOR - Fully Assessed Reason for Visit: Next [...] Encounter Status:Closed by NILTON ZHANG on 05/04/24 [facility] Rick 04-29-2024 CNOV Office Visit (MEGIAV) ALEIDA ARIZMENDI ([id number]) 1985 F Date Time Provider Department 04/29/24 11:00 AM SUSHILA LEVY During your visit today, we recorded the following information about you: Pulse Blood pressure Weight Height 64/minute 144/99 117.9 kg 1.626 m Sushila Levy APRN.PONY RIDE OPERATOR 04/29/2024 12:08 PM Signed Aleida Michaelrayraykeely is a 38 year old here for [facility]. Referred by: Michel Joseph [id number] [facility] [address] Chief Complaint: irregular bleeding Endometrial Biopsy: No [...] Care Visit completed when applicable. Sushila Levy APRN.PONY RIDE OPERATOR PROCEDURE: EXTERNAL GENITALIA: Normal in appearance without [...] See ViewPoint for procedure results. Sushila Levy APRN.PONY RIDE OPERATOR Referring Provider: MICHEL JOSEPH [[id number]] Allergies As of Date: 04/29/2024 Noted Allergy Reaction AMOXACILLIN (AMOXICILLIN) 03/09/2023 4 - Hives Comments: Skin test is negative. Challenge pending PENICILLINS 10/15/2020 4 - Hives Date Reviewed: 04/29/2024 Reviewed by: Sushila Levy APRN.PONY RIDE OPERATOR - Fully Assessed Reason for Visit: Infertility [285] Primary Visit Diagnosis:Pre-procedu re lab exam [Z01.812] Other Visit Diagnosis:Fertility testing [Z31.41] Order(s):HCG QUAL UR B/O [[id number]] Order #: [id number] SONOHYSTEROGRAPHY (SIS) [facility] [[id number]] Order #: [id number]. #:[id number] IEWPOINTQty: 1 Prescriptions as of 05/01/2024 - [...] Status:Closed by MICHEL JOSEPH on 05/01/24 [facility] HCG QUAL UR B/OOrdered By: Colton Gardner on 04-29-2024 status Negative neg - pos [facility] Quality Check Yes yes/no [facility] US Uterus and Fallopian tube s W saline IUon 04-29-2024 [facility] Radiology Study observation (narrative) [facility] CNNURSEon 04-15-2024 CNNURSE Nurse Visit (REIAV) ALEIDA ARIZMENDI ([id number]) 1985 F Date Time Provider Department 04/15/24 7:45 AM NURSE LOUISA [facility] REJ REIAV During your visit today, we [...] Gonzalez MD, CROW Referring Provider: KOBI WEINER [[id number]] Allergies As of Date: 04/15/2024 Noted Allergy Reaction AMOXACILLIN (AMOXICILLIN) 03/09/2023 4 - Hives Comments: Skin test is negative. Challenge pending PENICILLINS 10/15/2020 4 - Hives Date Reviewed: 04/15/2024 Reviewed by: Nilton Zhang RN - Fully Assessed Reason for Visit: Infertility [285] Primary Visit Diagnosis:Irregular menses [N92.6] Other Visit Diagnosis:Female infertility [N97.9] Order(s):FOLLICULAR US [facility] [[id number]] Order #: [id number]. #:[id number] IEWPOINTQty: 1 Norethin Misael-Eth Estrad-FE (MICROGESTIN FE) [...] Status:Closed by NILTON ZHANG on 04/15/24 [facility] Estradiol SerPl-mCncon 04-15 E2 [Mass/Vol] 38 pg/mL High 8-37 [facility] Comment on above: Order Comment: Speci men Type: BLOOD SPECIMEN Ordering Facility: [facility] Address: [address] [place] [address] Result Comment: This test is not suitable [...] 3243 pg/mL Second trimester : 1561 to 24402 pg/mL Third trimester : 8285 to >99241 pg/mL Post-menopausal Estradiol reference range: < 41 pg/mL Reference: 1. Estradiol - E2 (Estradiol III) [package insert V 3.0 Chinese]. [facility], [place], [place], February 2016. Performed By: #### 2 243-4 #### [facility] CLIA [id number] [address] [facility] [place] [address] [place] Follicle Diameter USon [...] Read By: Jazmine Gonzalez MD MATERNAL MEDICINE [facility] Radiology Study observation (narrative) [facility] SerPl-aCncon 04-15-2024 Lutropin Qn 10.9 m[IU]/mL Normal See comment [facility] Comment on above: Order Comment: Speci men Type: BLOOD SPECIMEN Ordering Facility: [facility] Address: [address] [place] [address] Result Comment: Refe rence range: Follicular: 2.4-12.6 mIU/mL Midcycle: 14.0-95.6 mIU/mL Luteal: 1.0-11.4 mIU/mL Post [place]: 7.7-58.5 mIU/mL Performed By: #### 2 243-4 #### [facility] CLIA [id number] [address] [facility] [place], [place] [address] [place] [address] [place] Progest SerPl-mCncon 024 Progesterone [Mass/Vol] ng/mL Normal See comment [facility] Comment on above: Order Comment: Speci men Type: BLOOD SPECIMEN Ordering Facility: [facility] Address: [address] [place] [address] Result Comment: Mens trual Cycle Progesterone Reference Ranges: Follicular: <1.0 ng/mL Ovulation: <12.1 ng/mL Luteal: 1.8 to 23.9 ng/mL. Progesterone Reference Ranges vary by gestational period: First Trimester: 11.0 to 44.3 ng/mL Second Trimester: 25.4 to 83.3 ng/mL Third Trimester: 58.7 to 214 ng/mL Post menopausal Progesterone: <0.5 ng/mL Reference: 1. Progesterone (Progesterone III) [package insert V 1.0 Chinese]. [facility], [place], [place]. June 2015. Performed By: #### 2 243-4 #### [facility] CLIA [id number] [address] [facility] [place] [address] [place] [facility] 17 HYDROXYPROGESTERONEon 17-Hydroxyprogesterone [Mass/Vol] 38 ng/dL [...] Endocrinol Metab. 1991;73:674-686; J Clin Endocrinol Metab. 1989;69;2913-9742; J Clin Endocrinol Metab. 1994;78:226-270. Pediatr Res 1988;23:525-529. MedLinePlus (accessed 02/27/14). This test was developed and its analytical performance characteristics have been determined by [employer] [place], [place]. It has not been cleared or approved by the U.S. Food and Drug Administration. This assay has been validated pursuant to the CLIA regulations and is used for clinical purposes. Performed By: #### 1 7HYDP #### BLOSSOM Goodwin ([id number]) [facility] ([id number]) [address] [place] [address] [place] [address] 17 HYDROXYPROGESTERONEon 17-Hydroxyprogesterone [Mass/Vol] Test Not Performed. entry level programmer error - Test reordered. Normal [facility] Comment on above: Performed By: #### 1 [facility] #### PATY FRANCISCO C ([id number]) , [facility] 04-07-2024 CNPN Telephone (REIBD) ALEIDA ARIZMENDI ([id number]) 1985 F Date Time Provider Department 04/07/24 JAZMINE GONZALEZ During your visit today, we recorded the following information about you: Greer Hortno 04/07/2024 11:33 AM Signed Pt has ques on getting her labs done in [place] will they be stat Ar Hennessy RN 04/08/2024 8:39 AM Signed Call to pt at cell number listed Pt states that she had blood drawn locally since she is on vacation and call about results. Reviewed we have not received them yet but will keep a look out. Pt states she has the results and will send them via Vyattahart Pt verbalized understanding Ar Hennessy RN April 08, 2024 8:39 AM Allergies As of Date: 04/07/2024 Noted Allergy Reaction AMOXACILLIN (AMOXICILLIN) 03/09/2023 4 - Hives Comments: Skin test is negative. Challenge pending PENICILLINS 10/15/2020 4 - Hives Date Reviewed: 03/08/2024 Reviewed by: Kari Cain MA - Fully Assessed Reason for Visit: [place] pt has ques on getting her labs in [place] [Other] Prescriptions as of 04/08/2024 - ethynodiol [...] Status:Closed by AR HENNESSY on 04/08/24 [facility] Progest Gretchenfidel 07-25-2 024 Progesterone [Mass/Vol] 0.2 ng/mL Normal <1.4 C [facility] Comment on above: Result Comment: (NOT E) NORMAL MENSTRUATING FOLLICULAR PHASE <1.4 NG/ML LUTEAL PHASE 3.3-26.0 NG/ML MID LUTEAL PHASE 4.4-28.0 NG/ML POST-MENOPAUSAL FEMALES <0.7 NG/ML FEMALES FIRST TRIMESTER 11.0-45.0 NG/ML SECOND TRIMESTER 26.0-89.0 NG/ML THIRD TRIMESTER 46.0-423.0 NG/ML Performed By: #### 2 839-9 #### PATY Mchugh ([id number]) [employer] ([id number]) [address] [place] [address] Progesterone [Mass/Vol] Test Not Perform ed. entry level programmer error - Test reordered. Normal <1.4 [facility] Comment on above: Performed By: #### 2 839-9 #### PATY Mchugh ([id number]) , [facility] TSH SerPl-aCncon 04-07-2024 TSH Qn 0.974 MCIU/ML Normal 0.400-4.500 [facility] Comment on above: Performed By: #### 3 016-3 #### PATY Mchugh ([id number]) [employer] ([id number]) [address] [place] [address] TSH Qn Test Not Performed. entry level programmer error - Test reordered. Normal 0.400-4.500 [facility] Comment on above: Performed By: #### 3 016-3 #### PATY Mchugh ([id number]) , [facility] Testost SerPl-mCncon 024 Testosterone [Mass/Vol] 48 ng/dL Normal 14-76 C [facility] Comment on above: Performed By: #### 2 986-8 #### PATY Mchugh ([id number]) [facility] [employer] ([id number]) [address] [place] [address] Testosterone [Mass/Vol] Test Not Perform ed. entry level programmer error - Test reordered. Normal 14- [employer] Comment on above: Performed By: #### 2 986-8 #### PATY Mchugh ([id number]) , [facility] B-HCG SerPl-aCncon HCG.beta subunit Qn m[IU]/mL Normal <5.0 [facility] Comment on above: Order Comment: Speci men Type: BLOOD SPECIMEN Ordering Facility: [facility] Address: [address] [place] [address] Result Comment: João crowanne-marie Performed By: #### 2 1198-7 #### [facility] CLIA [id number] [address] [place] [address] [place] Progest SerPl-mCncon 07-22-2 024 Progesterone [Mass/Vol] 0.3 ng/mL Normal See comment [facility] Comment on above: Order Comment: Speci men Type: BLOOD SPECIMEN Ordering Facility: [facility] Address: [address] [place] [address] Result Comment: Mens trual Cycle Progesterone Reference Ranges: Follicular: <1.0 ng/mL Ovulation: <12.1 ng/mL Luteal: 1.8 to 23.9 ng/mL. Progesterone Reference Ranges vary by gestational period: First Trimester: 11.0 to 44.3 ng/mL Second Trimester: 25.4 to 83.3 ng/mL Third Trimester: 58.7 to 214 ng/mL Post menopausal Progesterone: <0.5 ng/mL Reference: 1. Progesterone (Progesterone III) [package insert V 1.0 Chinese]. [facility], [place], [place]. June 2015. Performed By: #### 2 839-9 #### [facility] CLIA [id number] [address] [place] [address] [place] 03-30-2024 CNPN Telephone (REIBD) ALEIDA ARIZMENDI ([id number]) 1985 F Date Time Provider Department 03/30/24 [...] Encounter Status:Closed by NILTON ZHANG on 03/31/24 [facility] 03-22-2024 [facility] Telephone (REIBD) ALEIDA ARIZMENDI ([id number]) 1985 F Date Time Provider Department 03/22/24 [...] 2:30 PM Signed Message resent to Dr Jospeh. Awaiting answer to give pt. Goyo Vides [...] Encounter Status:Closed by GOYO VIDES on 03/23/24 [facility] CNOVon 03-08-2024 [facility] ALEIDA ARIZMENDI ([id number]) 1985 F Date Time Provider Department 03/08/24 2:00 PM PEPE POPE [facility] During your visit today, we recorded [...] 08/16/2023 (approximate). Informed Consent Consent Obtained: Written [place] Protocol SIGN IN Patient/Surrogate Stated/Verified: Patient name, Date of , Relevant allergies and Intended procedure TIME OUT Intended patient and procedure match the source document(s). Consent documented and matches the intended procedure. Relevant labs, photos, and/or imaging studies have been reviewed. Pre-Procedure Details: Pre-meds: None Local anesthetic: None Procedure Details: Procedure: Colposcopy of Vagina including Cervix [place] speculum was placed in the vagina. Acetic [...] Pepe Pope MD Referring Provider: PEPE POPE [[id number]] Allergies As of Date: 03/08/2024 Noted Allergy Reaction AMOXACILLIN (AMOXICILLIN) 03/09/2023 4 - Hives Comments: Skin test is negative. Challenge pending PENICILLINS 10/15/2020 4 - Hives Date Reviewed: 03/08/2024 Reviewed by: Kari Cain MA - Fully Assessed Reason for Visit: Colposcopy [1551] Primary Visit Diagnosis:Cervical high risk HPV (human papillomavirus) test positive [R87.810] Order(s):UA DIP,URINE HCG (POC) [[id number]] Order #: [id number]. #:[id number] [PRO96] Order #: [id number] Prescriptions as of 03/08/2024 - PNV no.95/ferrous [...] for Encounter Date Provider Department Center 03/08/2024 [id number], PHILIP*[facility] Encounter Status:Closed by PEPE POPE on 03/08/24 [facility] [place] COLPOSCOPYon 03-08-2024 [facility] UA DIP,URINE HCG (POC)on Beta HCG ( test) Ql (U) Negative Negative [facility] Comment on above: Location:[facility], [address] [place] [address], [place], [place], [address] Pipe Tester (POCT) Internal QC OK [facility] Location:[facility], [address] [place], [place] [address], [place], [place], [address] [facility] POINT OF CARE [facility] CNPNon 03-07-2024 CNPN Telephone (REIBD) ALEIDA ARIZMENDI ([id number]) 1985 F Date Time Provider Department 03/07/24 [...] plan per Dr Edmonds's consult note. Goyo Vidse RN March 09, 2024 9:59 AM Allergies [...] Encounter Status:Closed by GOYO VIDES on 03/09/24 [facility] [id number] 02-24-2024 O ID: [id number] Author: MICHEL JOSEPH MD Service: ? Author [...] included some information about IVF below. Normal [facility] CNOVon 02-23-2024 CNOV Office Visit (REIMN) ALEIDA ARIZMENDI ([id number]) 1985 F Date Time Provider Department 02/23/24 3:00 PM MICHEL JOSEPH During your visit today, we recorded the following information about you: Blood pressure Weight Height 124/82 118.3 kg 1.626 m Michel Joseph MD 02/24/2024 11:33 AM Signed REPRODUCTIVE ENDOCRINOLOGY AND INFERTILITY RETURN PATIENT CLINIC NOTE SERVICE DATE: 02/23/2024 SERVICE TIME: 3:33 PM NAME: Aleida Arizmendi FERTILITY HISTORY 38yo [id number] with PCOS, BMI 44.77 Note copied from [...] PRIOR TO (more content not included)... Normal [facility] [place] 02-12-2024 [facility] ALEIDA ARIZMENDI ([id number]) 1985 F Date Time Provider Department 02/12/24 PEPE POPE [facility] During your visit today, we recorded [...] patient and LVM. Also sent patient a News in Shortshart message. Postponing to ensure scheduling. Roxanna May [...] Encounter Status:Closed by KYLEE CUNHA on 02/15/24 [facility] Jerrell 02-05-2024 ADELEN Telephone (REIBD) ALEIDA ARIZMENDI ([id number]) 1985 F Date Time Provider Department 02/05/24 [...] testing [Z31.41] Order(s):HCG QUANTITATIVE [SQHCGQT] Order #: [id number] FUTURE Prescriptions as of 02/05/2024 - medroxyPROGESTERone [...] Status:Closed by LEONEL CABEZAS on 02/05/24 [facility].beta subunit IA 3rd IS Q non 02-05-2024 SERUM B HCG,3RD I.S. <5 Normal [facility] Comment on above: Result Comment: NEW REFERENCE [...] neoplasms. Performed By: #### 2 0415-6 #### [facility] ([id number]) [address] [place] [address], [place] [address] Jerrell 02-01-2024 NAVIN Telephone (REIBD) ALEIDA ARIZMENDI ([id number]) 1985 F Date Time Provider Department 02/01/24 [...] Status:Closed by IVY GARDNER on 02/01/24 Normal [facility] C. trachomatis+N. gonorrhoea e DNA KINDRA+probe Ql (Unsp spec)on 01-21-2024 C. trachomatis rRNA KINDRA+probe Ql (Unsp spec) Negative Normal Negative for Chlamydia trachomatis by amplificaton [facility] Comment on above: Order Comment: Speci men Type: SWAB Ordering Facility: [facility] Address: [address] [place] [address] Performed By: #### 3 6902-5 #### [facility] CLIA [id number] [address] [place] [address] [place] N. gonorrhoeae rRNA KINDRA+probe Ql (Unsp spec) Negative Normal Negative for Neisseria gonorrhoeae by amplification [facility] Comment on above: Order Comment: Speci men Type: SWAB Ordering Facility: [facility] Address: [address] [place] [address] Performed By: #### 3 6902-5 #### [facility] CLIA [id number] [address] [place] [address] [place] CNOVon 01-21-2024 CNOV Office Visit ([facility] ) ALEIDA ARIZMENDI ([id number]) 1985 F Date Time Provider Department 01/21/24 8:20 AM [facility] POPE [facility] During your visit today, we recorded [...] L0 SAB0 IAB1 Ectopic0 Multiple0 Live Births0 Travel Manager History LMP: 08/16/2023 (Approximate), Having periods Age at Menarche: Age at First : Age at Menopause: Travel Manager History Comments: Sexual Activity: Yes; Male Contraception: [...] external genitalia normal, normal Bartholin's glands, urethra, [place]'s glands, no vulvar lesions, no cervical lesions, [...] index (BM (more content not included)... Normal [facility] HIGH RISK HUMAN PAPILLOMA CHARLIE (HPV), PCR FOR DETECTION AND GENOTYPINGon 01-21-2024 HPV 16 Ag Ql (Unsp spec) Negative Normal Negative for HPV DNA high risk type 16 by PCR [facility] Comment on above: Order Comment: Speci men Type: FLUID SPECIMENOrdering Facility: [facility] Address: [address] [place] [address] Performed By: #### L [id number] ####[facility] LABORATORYCLIA [id number] [address] LABCLIA [id number] [place] [address] [place]#### HPVHRT ####[facility] LABCLIA [id number] [address] [place] HPV 18 Ag Ql (Unsp spec) Negative Normal Negative for HPV DNA high risk type 18 by PCR [facility] Comment on above: Order Comment: Speci men Type: FLUID SPECIMENOrdering Facility: [facility] Address: [address] [place] [address] Performed By: #### L [id number] ####[facility] LABORATORYCLIA [id number] [address] LABCLIA [id number] [place] [address] [place]#### HPVHRT ####[facility] LABCLIA [id number] [place] [address] [place] HPV 31+33+35+39+45+51+52+56 +58+59+66+68 DNA KINDRA+probe Ql (Cvx) Positive for one or more of the following HPV DNA high risk types:31,33,35,39,45, 51,52,56,58,59,66,68 by PCR Abnormal Negative for HPV DNA high risk types: 31,33,35,39,45 ,51,52,56,58,5 9,66,68 by PCR. [facility] Comment on above: Order Comment: Speci men Type: FLUID SPECIMENOrdering Facility: [facility] Address: [address] [place] [address] Performed By: #### L [id number] ####[facility] LABORATORYCLIA [id number] [place] [address] [place] [facility] LABCLIA [id number] [place] [address] [place]#### HPVHRT ####[facility] LABCLIA [id number] [place] [address] [place] PAP TESTon 01-21-2024 ADEQUACY Normal [facility] Comment on above: Order Comment: Speci men Type: FLUID SPECIMENOrdering Facility: [facility] Address: [address] [place] [address] Result Comment: Sati sfactory for interpretation. No endocervical component Performed By: #### L [id number] ####[facility] LABORATORYCLIA [id number] [place] [address] [place] [facility] LABCLIA [id number] [place] [address] [place]#### HPVHRT ####[facility] LABCLIA [id number] [place] [id number] [place] CASE REPORT Normal [facility] Comment on above: Order Comment: Speci men Type: FLUID SPECIMENOrdering Facility: [facility] Address: [address] [place] [address] Result Comment: Gyne cologic Cytology Report Case: [id number] Authorizing Provider: Pepe Pope, Collected: 01/21/2024 08:44 AM Ordering Location: OB/Gynecology Received: 01/21/2024 04:22 PM First Screen: Clapacs, Tamia Rescreen: Manosky Priya Specimen: Pap Test, ThinPrep, Cervix Performed By: #### L [id number] ####[facility]ORATORYCLIA [id number] [address] LABCLIA [id number] [place] [address] [place]#### HPVHRT ####[facility] LABCLIA [id number] [place] [address] [place] CLINICAL HISTORY, CYTOLOGY, HIDE CURER Routine Exam Normal [facility] Comment on above: Order Comment: Speci men Type: FLUID SPECIMENOrdering Facility: [facility] Address: [address] [place] [address] Performed By: #### L [id number] ####[facility] LABORATORYCLIA [id number] [place] [id number] [facility] LABCLIA [id number] [place] [address] [place]#### HPVHRT ####[facility] LABCLIA [id number] [place] [id number] [place] FINAL PERFORMING LAB Normal [facility] Comment on above: Order Comment: Speci men Type: FLUID SPECIMENOrdering Facility: [facility] Address: [address] [place] [address] Result Comment: Tech nical component, internet marketing consultant screening performed at [facility], [address] [place] [id number] CLIA# [id number] Diagnostic interpretation performed at [facility], [address] [place] [id number] CLIA# [id number] Intelligence Senior Sergeant: Kevon Cano M.D. Performed By: #### L [id number] ####[facility] LABORATORYCLIA [id number] [place] [address] [place] [facility] LABCLIA [id number] [place] [address] [place]#### HPVHRT ####[facility] LABCLIA [id number] [place] [address] [place] HPV REFLEX Yes HPV Normal [facility] Comment on above: Order Comment: Speci men Type: FLUID SPECIMENOrdering Facility: [facility] Address: [address] [place] [address] Performed By: #### L [id number] ####[facility] LABORATORYCLIA [id number] [place] [address] [place] [facility] LABCLIA [id number] [place] [address] [place]#### HPVHRT ####[facility] LABCLIA [id number] [place] [address] [place] INTERPRETATION, CYTOLOGY, HIDE CURER Normal [facility] Comment on above: Order Comment: Speci men Type: FLUID SPECIMENOrdering Facility: [facility] Address: [address] [place] [address] Result Comment: Nega tive for intraepithelial lesion or malignancy. Performed By: #### L [id number] ####[facility] LABORATORYCLIA [id number] [place] [address] [place] [facility] LABCLIA [id number] [place] [address] [place]#### HPVHRT ####[facility] LABCLIA [id number] [place] [address] [place] LMP 08/16/2023 Normal [facility] Comment on above: Order Comment: Speci men Type: FLUID SPECIMENOrdering Facility: [facility] Address: [address] [place] [address] Performed By: #### L [id number] ####[facility] LABORATORYCLIA [id number] [address] LABCLIA [id number] [place] [address] [place]#### HPVHRT ####[facility] LABCLIA [id number] [place] [address] [place] PAP DISCLAIMER COMMENT The Pap Smear is a screening test for cervical cancer. False negative results occur with all screening tests, emphasizing the need for rescreening at recommended intervals, and clinical correlation. Normal [facility] Comment on above: Order Comment: Speci men Type: FLUID SPECIMENOrdering Facility: [facility] Address: [address] [place] [address] Performed By: #### L [id number] ####[facility] LABORATORYCLIA [id number] [place] [id number] [place] [facility] LABCLIA [id number] [place] [address] [place]#### HPVHRT ####[facility] LABCLIA [id number] [address] [address] [place] PAP KEY CARRIER COMMENT This specimen has been analyzed by the ThinPrep Imaging System, an automated imaging and review system, which assists the laboratory in evaluating cells on ThinPrep Pap tests. Following automated imaging, selected pacheco from every slide are reviewed by a internet marketing consultant. Normal [facility] Comment on above: Order Comment: Speci men Type: FLUID SPECIMENOrdering Facility: [facility] Address: [address] [place] [address] Performed By: #### L [id number] ####[facility] LABORATORYCLIA [id number] [address] LABCLIA [id number] [address]#### HPVHRT ####[facility] LABIA [id number] [address] Follicle Diameter USon 01-10 Indication Follicle [...] Read By: Arley Parikh M.D. MATERNAL MEDICINE [facility] Radiology Study observation (narrative) Robe mars [facility] Jerrell 01-08-2024 [facility] Telephone (WHREBA) ALEIDA ARIZMENDI ([id number]) 1985 F Date Time Provider Department 01/08/24 [facility] During your visit today, we recorded the [...] Status:Closed by JUANA LIU on 01/11/24 Normal [facility] Follicle Diameter USon 01-07 Indication Follicle monitoring [...] Read By: Jazmine Gonzalez MD MATERNAL MEDICINE [facility] Radiology Study observation (narrative) [facility] Follicle Diameter USon 12-31 [facility] [id number] 12-02-2023 HNO ID: [id number] Author: DMITRY MENCHACA MD Service: ? Author [...] and future treatment options Dmitry Menchaca MD [facility] ANES POSTPROC EVALon 024 ANES POSTPROC EVAL HNO ID: [id number] Author: JAGDEEP CORDOVA MD Service: Anesthesiology Author Type: Physician Type: Anesthesia Postprocedure Evaluation Filed: 10/30/2023 13:24 Note Text: POST ANESTHESIA EVALUATION NOTE : 1985 Procedure Summary Date: 10/30/23 Room / Location: [facility] / [facility] Anesthesia Start: 1156 Anesthesia Stop: 1228 Procedure: [...] October 30, 2023 TIME: 1:24 PM CSN: [id number] Normal [facility] ANES PRE-OPon 10-30-2023 ANES PRE-OP HNO ID: [id number] Author: JAGDEEP CORDOVA MD Service: Anesthesiology Author Type: Physician Type: Anesthesia Preprocedure Evaluation Filed: 10/30/2023 10:59 Note Text: OB ANESTHESIA PRE-PROCEDURE ASSESSMENT 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 Patient / Responsible Green Party agrees to proceed: yes Patient / Surrogate agrees to blood products: blood products not planned Significant changes in the patient condition since the History and Physical, not otherwise documented in primary service progress note: no. Potential Anesthesia issues that may suggest increased risk of complications or contraindication to planned procedure: none. [facility] CHART REVIEW: ACTIVE PROBLEM LIST High [...] 2023 TIME: 10:59 AM : 1985 Normal [facility] HISTORY PHYSICALon HISTORY PHYSICAL HNO ID: [id number] Author: SONYA OLSON APRN.CNP Service: Anesthesiology Author [...] been having pelvic cramping. Pt presents for DANOR with Dr Menchaca. METS: Climb a flight [...] No r (more content not included)... Normal [facility] OPERATIVE NOon 10-30-2023 OPERATIVE NO HNO ID: [id number] Author: DMITRY MENCHACA MD Service: ? Author [...] Menchaca MD October 30, 2023 12:28 PM [facility] SURGICAL PATHOLOGYon 024 CASE REPORT Normal [facility] Comment on above: Order Comment: Speci men Type: TISSUE SPECIMENOrdering Facility: [facility] Address: [address] [place] [address] Result Comment: Surg [facility] Pathology Report Case: [id number] Authorizing Provider: Dmitry Menchaca MD Collected: 10/30/2023 12:12 PM Ordering Location: [facility] Received: 10/30/2023 03:03 PM Pathologist: Za Tillman DO Specimen: PRODUCTS OF CONCEPTION Performed By: #### S ####[facility] LABORATORYCLIA [id number] [place] [address] [place] CLINICAL HISTORY Normal [facility] Comment on above: Order Comment: Speci men Type: TISSUE SPECIMENOrdering Facility: [facility] Address: [address] [place] [address] Result Comment: Pre- op diagnosis: Missed [O02.1] Performed By: #### S ####[facility] LABORATORYCLIA [id number] [address] FINAL DIAGNOSIS [facility] Comment on above: Order Comment: Speci men Type: TISSUE SPECIMENOrdering Facility: [facility] Address: [address] [place] [address] Result Comment: A. P roducts of conception, dilation and curettage: - Chorionic villi and decidualized endometrium consistent with products of conception. Performed By: #### S ####[facility] LABORATORYCLIA [id number] [address] FINAL PERFORMING LAB Normal [facility] Comment on above: Order Comment: Speci men Type: TISSUE SPECIMENOrdering Facility: [facility] Address: [address] [place] [address] Result Comment: Diag nostic interpretation performed at [facility], [address] [place] [address] CLIA# [id number] Intelligence Senior Sergeant: Charly Main M.D. Performed By: #### S ####[facility] LABORATORYCLIA [id number] [address] GROSS DESCRIPTION [facility] Comment on above: Order Comment: Speci men Type: TISSUE SPECIMENOrdering Facility: [facility] Address: [address] [place] [address] Result Comment: A. P RODUCTS OF CONCEPTION Received in formalin in a suction apparatus labeled as products of conception are multiple pale pink-butt, spongy and membranous tissue fragments admixed with some clotted blood aggregating to 7 x 6.5 x 0.8 cm. Spongy tissue consistent with possible villous tissue is identified. Vesicles and tissue are not identified. Beef Boner sections are submitted in 3 cassettes. Gross examination performed at [facility], [address] [id number] CLIA# [id number] [facility] November 02, 2023 12:56 PM Performed By: #### S ####[facility] LABORATORYCLIA [id number] [place] [id number] [place] Examination level ultrasound on 10-23-2023 [facility] CNPNon 10-15-2023 CNPN Telephone (WHREBA) ALEIDA ARIZMENDI ([id number]) 1985 F Date Time Provider Department 10/15/23 DMITRY MENCHACA [facility] During your visit today, we recorded the [...] Encounter Status:Closed by IVY GARDNER on 10/15/23 [facility] Potassium [Moles/volume] in Serum or PlasmaOrdered By: Charly Matute on 10-01-2023 Potassium [Moles/Vol] 3.8 mmol/L 3.5-5.1 [facility] Alanine aminotransferase [En zymatic activity/volume] in Serum or PlasmaOrdered By: Fidelina Lyle on 09-30-2023 ALT [Catalytic activity/Vol] 16 U/L 7-52 [facility] Albumin [Mass/volume] in Ser um or Plasma by Bromocresol green (BCG) dye binding methoOrdered By: Fidelina Lyle on 09-30-2023 Albumin BCG dye [Mass/Vol] 4.1 g/dL 3.5-5.7 [facility] Alkaline phosphatase [Enzyma tic activity/volume] in Serum or PlasmaOrdered By: Fidelina Lyle on 09-30-2023 ALP [Catalytic activity/Vol] 54 U/L 34-104 [facility] Aspartate aminotransferase [ Enzymatic activity/volume] in Serum or PlasmaOrdered By: Fidelina Lyle on 09-30-2023 AST [Catalytic activity/Vol] 20 U/L 13-39 [facility] Automated epithelial cells c ount in urine sediment (number/area)Ordered By: Fidelina Lyle on 09-30-2023 Epithelial cells Auto (Urine sed) [#/Area] 3-4 [HPF] 0-2 [facility] Automated erythrocytes count in urine sediment (number/area)Ordered By: Fidelina Lyle on 09-30-2023 RBC Auto (Urine sed) [#/Area] 3-4 [HPF] 0-4 [facility] Automated leukocytes count i n urine sediment (number/area)Ordered By: Fidelina Lyle on 09-30-2023 WBC Auto (Urine sed) [#/Area] 1-2 [HPF] 0-4 [facility] Basophils Auto (Bld) [#/Vol] Ordered By: Fidelina Lyle on 09-30-2023 Basophils (Bld) [#/Vol] 0.2 10*3/uL 0.0-0.2 [facility] Basophils/100 WBC Auto (Bld) Ordered By: Fidelina Lyle on 09-30-2023 Basophils/100 WBC (Bld) 1.2 % . F [facility] Bilirubin Auto test strip Ql (U)Ordered By: Fidelina Lyle on 09-30-2023 Bilirubin Ql (U) Negative Negative [facility] Bilirubin.total [Mass/volume ] in Serum or PlasmaOrdered By: Fidelina Lyle on 09-30-2023 Bilirubin [Mass/Vol] 0.4 mg/dL 0.3-1.0 [facility] Calcium [Mass/volume] in Ser um or PlasmaOrdered By: Fidelina Lyle on 09-30-2023 Calcium [Mass/Vol] 9.2 mg/dL 8.6-10.3 [facility] Carbon dioxide, total [Moles /volume] in Serum or PlasmaOrdered By: Fidelina Lyle on 09-30-2023 CO2 [Moles/Vol] 22.5 mmol/L 21.0-31.0 [facility] Chloride [Moles/volume] in S bear or PlasmaOrdered By: Fidelina Lyle on 09-30-2023 Chloride [Moles/Vol] 104 mmol/L 98-107 [facility] Choriogonadotropin.beta subu nit [Units/volume] in Serum or PlasmaOrdered By: Fidelina Lyle on 09-30-2023 HCG.beta subunit Qn 8687.00 m[IU]/mL [facility] Comment on above: Approximate Approxim ate hCG Gestational Age Range (mIU/ml) (weeks)0.2-1 5-50 1-2 50-500 2-3 100-5,000 3-4 500-10,000 4-5 1,000-50,000 5-6 10,000-100,000 6-8 15,000-200,000 8-12 10,000-100,000 Creatinine [Mass/volume] in Serum or PlasmaOrdered By: Fidelina Lyle on 09-30-2023 Creatinine [Mass/Vol] 0.74 mg/dL 0.60-1.20 [facility] Eosinophils Auto (Bld) [#/Vo l]Ordered By: Fidelina Lyle on 09-30-2023 Eosinophils (Bld) [#/Vol] 0.3 10*3/uL 0.0-0.45 [facility] Eosinophils/100 WBC Auto (Bl d)Ordered By: Fidelina Lyle on 09-30-2023 Eosinophils/100 WBC (Bld) 2.0 % . [facility] Erythrocyte distribution wid th Auto (RBC) [Ratio]Ordered By: Fidelina Lyle on 09-30-2023 Erythrocyte distribution width (RBC) [Ratio] 14.3 % 11.9-15.3 [facility] Globulin Calc (S) [Mass/Vol] Ordered By: Fidelina Lyle on 09-30-2023 Globulin (S) [Mass/Vol] 3.2 g/dL [facility] Glucose [Mass/volume] in Ser um or PlasmaOrdered By: Fidelina Lyle on 09-30-2023 Glucose [Mass/Vol] 89 mg/dL 70-100 [facility] Comment on above: ADA recommended refe rence rangeRandom Glucose Reference Range is dependent on time and content of last meal. Glucose of more than 200 mg/dL in a nonstressed, ambulatory subject supports the diagnosis of Diabetes Mellitus. HCG ( test) IA.rapi d Ql (U)Ordered By: Fidelina Lyle on 09-30-2023 HCG ( test) Ql (U) Positive [facility] Hematocrit Auto (Bld) [Volum e fraction]Ordered By: Fidelina Lyle on 09-30-2023 Hematocrit (Bld) [Volume fraction] 41.0 % 34.0-46.4 [facility] Hemoglobin [Mass/volume] in BloodOrdered By: Fidelina Lyle on 09-30-2023 Hemoglobin (Bld) [Mass/Vol] 14.2 g/dL 11.8-15.4 [facility] Ketones Auto test strip (U) [Mass/Vol]Ordered By: Fidelina Lyle on 09-30-2023 Ketones (U) [Mass/Vol] Negative Negative [facility] Leukocytes [#/volume] correc rufina for nucleated erythrocytes in Blood by Automated counOrdered By: Fidelina Lyle on 09-30-2023 WBC corrected for nucl RBC Auto (Bld) [#/Vol] 14.6 10*3/uL 3.8-11.6 [facility] Lymphocytes Auto (Bld) [#/Vo l]Ordered By: Fidelina Lyle on 09-30-2023 Lymphocytes (Bld) [#/Vol] 4.0 10*3/uL 1.00-4.8 [facility] Lymphocytes/100 WBC Auto (Bl d)Ordered By: Fidelina Lyle on 09-30-2023 Lymphocytes/100 WBC (Bld) 27.4 % . [facility] MCH Auto (RBC) [Entitic mass ]Ordered By: Fidelina Lyle on 09-30-2023 MCH (RBC) [Entitic mass] 31.0 pg 24.7-34.3 [facility] MCHC Auto (RBC) [Mass/Vol]Or dered By: Fidelina Lyle on 09-30-2023 MCHC (RBC) [Mass/Vol] 34.6 g/dL 32.0-35.0 Fir [facility] MCV Auto (RBC) [Entitic vol] Ordered By: Fidelina Lyle on 09-30-2023 MCV (RBC) [Entitic vol] 89.8 fL 80-100 F [facility] Monocyte distribution width [Entitic volume] in Blood by AutomatedOrdered By: Fidelina Lyle on 09-30-2023 Monocyte distribution width Auto (Bld) [Entitic vol] 18.80 % 0.00-20.00 [facility] Monocytes Auto (Bld) [#/Vol] Ordered By: Fidelina Lyle on 09-30-2023 Monocytes (Bld) [#/Vol] 0.9 10*3/uL 0.0-0.8 [facility] Monocytes/100 WBC Auto (Bld) Ordered By: Fidelina Lyle on 09-30-2023 Monocytes/100 WBC (Bld) 6.3 % . F [facility] Neutrophils Auto (Bld) [#/Vo l]Ordered By: Fidelina Lyle on 09-30-2023 Neutrophils (Bld) [#/Vol] 9.2 10*3/uL 1.8-7.7 [facility] Neutrophils/100 WBC Auto (Bl d)Ordered By: Fidelina Lyle on 09-30-2023 Neutrophils/100 WBC (Bld) 63.1 % . [facility] No Panel InformationOrdered By: Fidelina Lyle on 09-30-2023 Estimated GFR (CKD-EPI) > 60.0 mL/Min [facility] Creatinine Clearance (Chem 130.63 [facility] Nucleated erythrocytes [Pres ence] in Blood by Automated countOrdered By: Fidelina Lyle on 09-30-2023 Nucleated RBC Auto Ql (Bld) 0.0 /100{WBC} 0-0.5 [facility] Platelet mean volume Auto (B ld) [Entitic vol]Ordered By: Fidelina Lyle on 09-30-2023 Platelet mean volume (Bld) [Entitic vol] 6.7 fL 6.3-10.7 [facility] Platelets Auto (Bld) [#/Vol] Ordered By: Fidelina Lyle on 09-30-2023 Platelets (Bld) [#/Vol] 360 10*3/uL 150-450 [facility] Protein Auto test strip (U) [Mass/Vol]Ordered By: Fidelina Lyle on 09-30-2023 Protein (U) [Mass/Vol] 100 mg/dL Negative [facility] Protein [Mass/volume] in Ser um or PlasmaOrdered By: Fidelina Lyle on 09-30-2023 Protein [Mass/Vol] 7.3 g/dL 6.4-8.9 [facility] RBC Auto (Bld) [#/Vol]Ordere d By: Fidelina Lyle on 09-30-2023 RBC (Bld) [#/Vol] 4.56 10*6/uL 3.60-5.00 [facility] Serum or plasma albumin/glob ulin mass ratioOrdered By: Fidelina Lyle on 09-30-2023 Albumin/Globulin [Mass ratio] 1.3 {ratio} [facility] Serum or plasma anion gap de terminationOrdered By: Fidelina Lyle on 09-30-2023 Anion gap [Moles/Vol] [facility] Comment on above: Test not performed Sodium [Moles/volume] in Ser um or PlasmaOrdered By: Fidelina Lyle on 09-30-2023 Sodium [Moles/Vol] 136 mmol/L 136-145 [facility] Urea nitrogen [Mass/volume] in Serum or PlasmaOrdered By: Fidelina Lyle on 09-30-2023 Urea nitrogen [Mass/Vol] 10 mg/dL 7- [facility] Urine appearanceOrdered By: Fidelina Lyle on 09-30-2023 Appearance (U) Slightly cloudy Clear [facility] Urine bacteria detection by automated methodOrdered By: Fidelina Lyle on 09-30-2023 Bacteria Auto Ql (U) 2+ None Seen [facility] Urine colorOrdered By: Viji Lyle on 09-30-2023 Color (U) Yellow Yellow [facility] Urine glucose measurement by automated test strip (mass/volume)Ordered By: Fidelina Lyle on 09-30-2023 Glucose Auto test strip (U) [Mass/Vol] Normal mg/dL Normal [facility] Urine hemoglobin detection b y automated test stripOrdered By: Fidelina Lyle on 09-30-2023 Hemoglobin Auto test strip Ql (U) 2+ Negative [facility] Urine leukocyte esterase det ection by automated test stripOrdered By: Fidelina Lyle on 09-30-2023 Leukocyte esterase Auto test strip Ql (U) Negative Negative [facility] Urine nitrite detection by a utomated test stripOrdered By: Fidelina Lyle on 09-30-2023 Nitrite Auto test strip Ql (U) Negative Negative [facility] Urobilinogen Auto test strip (U) [Mass/Vol]Ordered By: Fidelina Lyle on 09-30-2023 Urobilinogen (U) [Mass/Vol] Normal mg/dL Normal [facility] WBC Auto (Bld) [#/Vol]Ordere d By: Fidelina Lyle on 09-30-2023 WBC (Bld) [#/Vol] 14.6 10*3/uL 3.8-11.6 [facility] pH Auto test strip (U)Ordere d By: Fidelina Lyle on 09-30-2023 pH (U) 1.030 [pH] 1.001-1.030 [facility] pH (U) 6.0 [pH] 5.0-9.0 [facility] FOLLICULAR WHIon 08-25-20 [facility] FOLLICULAR WHIon 08-19-20 [facility] CNPNon 08-17-2023 CNPN Telephone (WHREBA) ALIEDA ARIZMENDI ([id number]) 1985 F Date Time Provider Department 08/17/23 [...] to return my call. Need plan from [facility] and message sent to [facility] for SO with TIC. Plan to bring patient in on Thursday Mary Ann Kirkland August 17, 2023 4:34 PM Unable to reach patient by phone, but patient is scheduled for tomorrow. Same plan per Dr. Menchaca. She will need follow up with [facility] if not after this attempt. Request to [...] [N97.9] Order(s):ESTRADIOL-17 B BLD [SQE2] Order #: [id number] STANDING Prescriptions as of 08/18/2023 - dexAMETHasone [...] Encounter Status:Closed by LEONEL CABEZAS on 08/18/23 [facility] FOLLICULAR US WHIon 07-30-20 [facility] FOLLICULAR US WHIon 07-24-20 [facility] ESTRADIOL-17B BLDon 07-17-20 E2 [Mass/Vol] 41 pg/mL [facility] FOLLICULAR US WHIon 07-17-20 [facility] CNPNon 07-14-2023 CNPN Telephone (WHREBA) ALEIDA ARIZMENDI ([id number]) 1985 F Date Time Provider Department 07/14/23 DM[facility]RY MENCHACA [facility] During your visit today, we recorded the [...] no appts so she will come to [facility] to baseline on 07/17. Medications ordered based [...] 02:52 PM Modules accepted: Orders Leonel Cabezas APRN.[facility] 07/16/2023 3:11 PM Signed Addended by: LEONEL [...] Status:Closed by LILA HEART MA on 07/15/23 [facility] FOLLICULAR US WHIon 06-26-20 [facility] WHIon 05-28-20 [facility] WHIon 05-25-20 [facility] (WHREBA) ALEIDA ARIZMENDI ([id number]) 1985 F Date Time Provider Department 05/11/23 [facility]RY MENCHACA [facility] During your visit today, we recorded the [...] appointment scheduled for 05/13 at 0715 at [place]. Emelia Rust RN Allergies As of Date: 05/11/2023 Noted Allergy Reaction AMOXACILLIN (AMOXICILLIN) 03/09/2023 4 - Hives PENICILLINS 10/15/2020 4 - Hives Date Reviewed: 03/09/2023 Reviewed by: Ar Hennessy RN - Fully Assessed Reason for Visit: Patient Question [1477] Primary Visit Diagnosis:Encounter for fertility testing [Z31.41] Order(s):[facility] [4949087] Order #: [id number]: 1 STANDING ESTRADIOL-17B BLD [SQE2] Order #: [id number] STANDING Prescriptions as of 05/12/2023 - metFORMIN [...] Encounter Status:Closed by LEONEL CABEZAS on 05/12/23 [facility] XR HYSTEROSALPINGOGRAMon [facility] CNPNon 02-23-2023 CNPN Telephone (WHREBA) ALEIDA ARIZMENDI ([id number]) 1985 F Date Time Provider Department 02/23/23 DMITRY MENCHACA [facility] During your visit today, we recorded the following information about you: Juana Liu 02/23/2023 2:07 PM Signed [facility] pharmacy in [facility] called in regard to clarification [...] Encounter Status:Closed by JUANA LIU on 03/02/23 [facility] Jerrell 02-20-2023 [facility] Tele[facility] (WHREBA) ALEIDA ARIZMENDI ([id number]) 1985 F Date Time Provider Department 02/20/23 [facility] MENCHACA [facility] During your visit today, we recorded the following information about you: Juana Liu 02/20/2023 10:44 AM Signed Patient called wanting to get the authorization process started for IVF. Jonelle Daley 02/20/2023 4:50 PM Signed IVF PACKAGE#1 NOT CLEARED PLAN HAS NO INFERTILITY BENEFIT CALLED PT [facility] ALSO SENT JobalineT MESSAGE AND ESTIMATE LETTER. THANK YOU Jonelle [...] Encounter Status:Closed by JUANA LIU on 03/02/23 [facility] CONSULT PROGon 02-18-2023 CONSULT PROG HNO ID: [id number] Author: Dmitry Menchaca MD Service: ? Author Type: Physician Type: Consult Progress Note Filed: 03/02/2023 6:05 AM Note Text: VIRTUAL VISIT PROGRESS NOTE This is a virtual visit using [employer] video visit. It required patient-provider interaction for [...] done OPK (Ovulation Predictor Kit) Abnormal Ovarian Jenera Normal Saline Ultrasound Not done Semen Analysis [...] Family History (more content not included)... Normal [facility] FOLLICULAR US WHIon 12-20-19 23 [facility] FOLLICULAR US WHIon 11-10-19 23 [facility] FOLLICULAR US WHIon 11-07-19 23 [facility] ESTRADIOLon 09-17-2021 Estradiol 74.2 pg/mL Normal [facility] Comment on above: Result Comment: Adul t Female: Follicular phase 12.5 - 166.0 Ovulation phase 85.8 - 498.0 Luteal phase 43.8 - 211.0 Postmenopausal <6.0 - 54.7 1st trimester 215.0 - >4300.0 Yazmin ECLIA methodology Performed By: #### E STRADOROTEO #### [facility] [address] [address] [address] Rene Ferguson PROGESTERONEon 09-17-2021 Progesterone <0.1 Normal [facility] Comment on above: Result Comment: Foll icular phase 0.1 - 0.9 Luteal phase 1.8 - 23.9 Ovulation phase 0.1 - 12.0 First trimester 11.0 - 44.3 Second trimester 25.4 - 83.3 Third trimester 58.7 - 214.0 Postmenopausal 0.0 - 0.1 Performed By: #### P ROGES #### [facility] [address] [address] [address] Rene Ferguson PREG QUANT HCGon 09-13-2021 HCG QUANT <1 Normal [facility] Comment on above: Performed By: #### P REGQNT #### [facility] [address] [address] [address] Rene Ferguson HCG RANGE SEE BELOW Normal [facility] Comment on above: Result Comment: 5-50 0-1 WEEK 40-300 1-2 WEEKS 100-1,000 2-3 WEEKS 500-6,000 3-4 WEEKS 5,000-200,000 1-2 MONTHS 10,000-100,000 2-3 MONTHS 3,000-50,000 2ND TRIMESTER 1,000-50,000 3RD TRIMESTER Performed By: #### P REGQNT #### [facility] [address] [address] [address] Rene Ferguson CBC AUTO DIFFon 03-23-2021 BASO # 0.1 103/ul Normal 0.0-0.1 [facility] Comment on above: Performed By: #### C BC #### [facility] [address] [place], [place] [address] Marissa Nilton Basophils/100 WBC (Bld) 0.7 % Normal 0.2-2.0 [facility] Comment on above: Performed By: #### C BC #### [facility] [address] [id number] Marissa Nilton EO # 0.3 103/ul Normal 0.0-0.7 [facility] Comment on above: Performed By: #### C BC #### [facility] [address] [id number] Marissa Nilton Eosinophils/100 WBC (Bld) 3.1 % Normal 0.9-7.0 [facility] Comment on above: Performed By: #### C BC #### [facility] [address] [place], [place] [address] Marissa Nilton Erythrocyte distribution width (RBC) [Ratio] 13.2 % Normal 11.0-15.0 [facility] Comment on above: Performed By: #### C BC #### [facility] [address] [place], [place] [address] Marissa Nilton Hematocrit (Bld) [Volume fraction] 42.3 % Normal 36.0-48.0 [facility] Comment on above: Performed By: #### C BC #### [facility] [address] [place], [place] [address] Marissa Nilton Hemoglobin (Bld) [Mass/Vol] 14.0 g/dL Normal 12.0-16.0 [facility] Comment on above: Performed By: #### C BC #### [facility] [address] [id number] Marissa Nilton IG # 0.06 10e3/ul Critically high 0.00-0.03 [facility] Comment on above: Performed By: #### C BC #### [facility] [address] [id number] Marissa Nilton IG % 0.6 % Critically high 0.0-0.5 [facility] Comment on above: Performed By: #### C BC #### [facility] [address] [place], [place] [address] Marissa Nilton LYMPH # 3.1 103/ul Normal 1.2-3.8 [facility] Comment on above: Performed By: #### C BC #### [facility] [address] [place], [place] [address] Marissa Nilton Lymphocytes/100 WBC (Bld) 30.5 % Normal 20.5-60.0 [facility] Comment on above: Performed By: #### C BC #### [facility] [address] [place], [place] [address] Marissa Nilton MANUAL DIFF REQ NO Normal [facility] Comment on above: Performed By: #### C BC #### [facility] [address] [place] [address] Marissa Nilton MCH (RBC) [Entitic mass] 29.7 pg Normal 26.7-34.0 [facility] Comment on above: Performed By: #### C BC #### [facility] [address] [place], [place] [address] Marissaestefani Manriquezen MCHC (RBC) [Mass/Vol] 33.1 g/dL Normal 29.9-35.2 [facility] Comment on above: Performed By: #### C BC #### [facility] [address] [place], [place] [address] Marissa Nilton MCV (RBC) [Entitic vol] 89.8 fL Normal 81.0-99.0 [facility] Comment on above: Performed By: #### C BC #### [facility] [address] [place], [place] [address] Marissa Nilton MONO # 0.7 103/ul Normal 0.3-0.8 [facility] Comment on above: Performed By: #### C BC #### [facility] [address] [place], [place] [address] Marissa Nilton Monocytes/100 WBC (Bld) 6.9 % Normal 1.7-12.0 [facility] Comment on above: Performed By: #### C BC #### [facility] [address] [place] [address] Marissa Toribio NEUT # 5.9 103/ul Normal 1.4-6.5 [facility] Comment on above: Performed By: #### C BC #### [facility] [address] [place], [place] [address] Marissa Toribio Neutrophils/100 WBC (Bld) 58.2 % Normal 43.0-75.0 [facility] Comment on above: Performed By: #### C BC #### [facility] [address] [place], [place] [address] Marissa Toribio Platelet mean volume (Bld) [Entitic vol] 8.6 fL Critically low 9.5-13.5 [facility] Comment on above: Performed By: #### C BC #### [facility] [address] [place] [address] Marissa Toribio PLT 243 103/ul Normal 150-450 [facility] Comment on above: Performed By: #### C BC #### [facility] [address] [place] [address] Marissa Toribio RBC 4.71 106/ul Normal 4.20-5.40 [facility] Comment on above: Performed By: #### C BC #### [facility] [address] [place] [address] Marissa Toribio WBC 10.2 103/ul Normal 4.0-11.0 [facility] Comment on above: Performed By: #### C BC #### [facility] [address] [place], [place] [address] Marissa Manriquezen PROF 14(COMP METB)on 021 Albumin [Mass/Vol] 3.6 g/dL Normal 3.5-5.0 [facility] Comment on above: Performed By: #### P REGQNT #### [facility] [address] [place] [address] Dr. Rene Ferguson Albumin/Globulin [Mass ratio] 0.9 {ratio} Normal [facility] Comment on above: Performed By: #### P REGQNT #### [facility] [address] [place] [address] Dr. Rene Ferguson ALP [Catalytic activity/Vol] 77 U/L Normal 38-126 [facility] Comment on above: Performed By: #### P REGQNT #### [facility] [address] [place] [address] Dr. Rene Ferguson ALT [Catalytic activity/Vol] 50 U/L Normal 9-52 [facility] Comment on above: Performed By: #### P REGQNT #### [facility] [address] [address] [address] Rene Ferguson Anion gap [Moles/Vol] 13.0 mmol/L Normal [facility] Comment on above: Performed By: #### P REGQNT #### [facility] [address] [place] [address] Dr. Rene Ferguson AST [Catalytic activity/Vol] 48 U/L Critically high 14-36 [facility] Comment on above: Performed By: #### P REGQNT #### [facility] [address] [place] [address] Dr. Rene Ferguson Bilirubin [Mass/Vol] 0.4 mg/dL Normal 0.2-1.3 [facility] Comment on above: Performed By: #### P REGQNT #### [facility] [address] [place] [address] Dr. Rene Ferguson Calcium [Mass/Vol] 8.9 mg/dL Normal 8.4-10.2 [facility] Comment on above: Performed By: #### P REGQNT #### [facility] [address] [place] [address] Dr. Rene Ferguson Chloride [Moles/Vol] 104 mmol/L Normal 98-107 [facility] Comment on above: Performed By: #### P REGQNT #### [facility] [address] [place] [address] Dr. Rene Ferguson CO2 [Moles/Vol] 24.9 mmol/L Normal 22.0-30.0 [facility] Comment on above: Performed By: #### P REGQNT #### [facility] [address] [place] [address] Dr. Rene Ferguson Creatinine [Mass/Vol] 0.85 mg/dL Normal 0.52-1.04 [facility] Comment on above: Performed By: #### P REGQNT #### [facility] [address] [place] [address] Dr. Rene Ferguson EGFR-AF KENYAN >60 Normal >=60 [facility] Comment on above: Performed By: #### P REGQNT #### [facility] [address] [place] [address] Dr. Rene Ferguson EGFR-NON AF KENYAN >60 Normal >=60 [facility] Comment on above: Performed By: #### P REGQNT #### [facility] [address] [place] [address] Dr. Rene Ferguson Globulin (S) [Mass/Vol] 4.0 g/dL Normal [facility] Comment on above: Performed By: #### P REGQNT #### [facility] [address] [place] [address] Dr. Rene Ferguson Glucose [Mass/Vol] 100 mg/dL Normal 74-106 [facility] Comment on above: Performed By: #### P REGQNT #### [facility] [address] [place] [address] Dr. Rene Ferguson Potassium [Moles/Vol] 3.9 mmol/L Normal 3.4-5.0 [facility] Comment on above: Performed By: #### P REGQNT #### [facility] [address] [place] [address] Dr. Rene Ferguson Protein [Mass/Vol] 7.6 g/dL Normal 6.1-8.2 [facility] Comment on above: Performed By: #### P REGQNT #### [facility] [address] [place] [address] Dr. Rene Ferguson Sodium [Moles/Vol] 138 mmol/L Normal 137-145 [facility] Comment on above: Performed By: #### P REGQNT #### [facility] [address] [place] [address] Dr. Rene Ferguson Urea nitrogen [Mass/Vol] 10.0 mg/dL Normal 7.0-17.0 [facility] Comment on above: Performed By: #### P REGQNT #### [facility] [address] [place], [place] [address] Dr. Rene Freguson Urea nitrogen/Creatinine [Mass ratio] 11.8 mg/mg Normal [facility] Comment on above: Performed By: #### P REGQNT #### [facility] [address] [place], [place] [address] ABD/PELVIS WO CONon [...] SAMEER OCONNELL Date: 2021-03-22 21:45 Normal [facility] CULTURE URINEon 03-22-2021 CULTURE URINE Culture Observations : HEAVY GROWTH OF MIXED GENITAL MONIKA. NO POTENTIAL PATHOGENS SEEN. Normal [facility] Comment on above: Performed By: #### U RCX #### [facility] [address] [place] [address] Marissa DAILEY URINE PROFILEon 1 Bilirubin Ql (U) Negative Normal NEGATIVE [facility] Comment on above: Performed By: #### P REGQNT #### [facility] [address] [place] [address] Dr. Rene Ferguson Clarity (U) SL CLOUDY Abnormal CLEAR [facility] Comment on above: Performed By: #### P REGQNT #### [facility] [address] [place] [address] Dr. Rene Ferguson Color (U) LT. YELLOW Normal YELLOW [facility] Comment on above: Performed By: #### P REGQNT #### [facility] [address] [place] [address] Dr. Rene WILLINGHAM A micrscopic examination will be performed if indicated. Normal [facility] Comment on above: Performed By: #### P REGQNT #### [facility] [address] [place] [address] Dr. Rene Ferguson Glucose Ql (U) Negative Normal NEGATIVE [facility] Comment on above: Performed By: #### P REGQNT #### [facility] [address] [place] [address] Dr. Rene Ferguson Hemoglobin Ql (U) LARGE Abnormal NEGATIVE [facility] Comment on above: Performed By: #### P REGQNT #### [facility] [address] [place] [address] Dr. Rene Ferguson Ketones Ql (U) TRACE Abnormal NEGATIVE [facility] Comment on above: Performed By: #### P REGQNT #### [facility] [address] [address] [address] Rene Ferguson LEUKOCYTES Negative Normal NEGATIVE [facility] Comment on above: Performed By: #### P REGQNT #### [facility] [address] [place] [address] Dr. Rene Ferguson Nitrite Ql (U) Negative Normal NEGATIVE [facility] Comment on above: Performed By: #### P REGQNT #### [facility] [address] [place] [address] Dr. Rene Ferguson pH (U) 6.0 [pH] Normal 5-9 [facility] Comment on above: Performed By: #### P REGQNT #### [facility] [address] [place] [address] Dr. Rene Ferguson Protein (U) [Mass/Vol] 100 mg/dL Abnormal NEGAT YARA/ TRACE [facility] Comment on above: Performed By: #### P REGQNT #### [facility] [address] [place] [address] Dr. Rene Ferguson SPEC GRAVITY >=1.030 Abnormal 1.005-<=1.025 [facility] Comment on above: Performed By: #### P REGQNT #### [facility] [address] [place] [address] Dr. Rene Ferguson UR MICRO IND INDICATED Normal [facility] Comment on above: Performed By: #### P REGQNT #### [facility] [address] [place] [address] Dr. Rene Ferguson Urobilinogen Qn (U) 0.2 {Inocencio'U}/dL Normal 0.2 - 1. 0 [facility] Comment on above: Performed By: #### P REGQNT #### [facility] [address] [place] [address] Dr. Rene Ferguson URon 03-22-2021 , QUAL Negative Normal NEGATIVE [facility] Comment on above: Performed By: #### P REGU #### [facility] [address] [place] [address] Marissa Toirbio URINE MICROSCOPIC ONLYon BACTERIA SMALL Abnormal NONE SEEN [facility] Comment on above: Performed By: #### P REGQNT #### [facility] [address] [place] [address] Dr. Rene Ferguson Bacteria identified Cx Nom (U) INDICATED Normal [facility] Comment on above: Performed By: #### P REGQNT #### [facility] [address] [place] [address] Dr. Rene Ferguson CA OX CRYSTALS FEW Normal [facility] Comment on above: Performed By: #### P REGQNT #### [facility] [address] [place] [address] Dr. Rene Ferguson CAST NONE SEEN Normal NONE SEEN [facility] Comment on above: Performed By: #### P REGQNT #### [facility] [address] [place] [address] Dr. Rene Ferguson Crystals LM Nom (Urine sed) SEEN Abnormal NONE SEEN [facility] Comment on above: Performed By: #### P REGQNT #### [facility] [address] [place] [address] Dr. Rene Ferguson Epithelial cells LM Ql (Urine sed) MODERATE Abnormal NONE SEEN /RARE [facility] Comment on above: Performed By: #### P REGQNT #### [facility] [address] [place] [address] Dr. Rene Ferguson MUCOUS NONE SEEN Normal NONE SEEN [facility] Comment on above: Performed By: #### P REGQNT #### [facility] [address] [place] [address] Dr. Rene Ferguson RBC 20-50 Abnormal 0-2 [facility] Comment on above: Performed By: #### P REGQNT #### [facility] [address] [place] [address] Dr. Rene Ferguson WBC 5-10 Abnormal NONE SEEN [facility] Comment on above: Performed By: #### P REGQNT #### [facility] [address] [place] [address] Dr. Rene Ferguson PROGESTERONEon 03-08-2021 Progesterone <0.1 Normal [facility] Comment on above: Result Comment: Foll icular phase 0.1 - 0.9 Luteal phase 1.8 - 23.9 Ovulation phase 0.1 - 12.0 First trimester 11.0 - 44.3 Second trimester 25.4 - 83.3 Third trimester 58.7 - 214.0 Postmenopausal 0.0 - 0.1 Performed By: #### P VENKAT #### [facility] [address] [place] [address] Marissa Manriquezen ESTRADIOLon 01-17-2021 Estradiol 50.1 pg/mL Normal [facility] Comment on above: Result Comment: Adul t Female: Follicular phase 12.5 - 166.0 Ovulation phase 85.8 - 498.0 Luteal phase 43.8 - 211.0 Postmenopausal <6.0 - 54.7 1st trimester 215.0 - >4300.0 Yazmin ECLIA methodology Performed By: #### E LUIS ALBERTO #### [facility] [address] [place] [address] Marissa Toribio PROGESTERONEon 01-17-2021 Progesterone <0.1 Normal [facility] Comment on above: Result Comment: Foll icular phase 0.1 - 0.9 Luteal phase 1.8 - 23.9 Ovulation phase 0.1 - 12.0 First trimester 11.0 - 44.3 Second trimester 25.4 - 83.3 Third trimester 58.7 - 214.0 Postmenopausal 0.0 - 0.1 Performed By: #### P VENKAT #### [facility] [address] [place] [address] Marissa Toribio PREG QUANT HCGon 01-15-2021 HCG QUANT 1 mIU/mL Normal [facility] Comment on above: Performed By: #### P REGQNT #### [facility] [address] [place] [address] Dr. Rene Ferguson HCG RANGE SEE BELOW Normal [facility] Comment on above: Result Comment: 5-50 0-1 WEEK 40-300 1-2 WEEKS 100-1,000 2-3 WEEKS 500-6,000 3-4 WEEKS 5,000-200,000 1-2 MONTHS 10,000-100,000 2-3 MONTHS 3,000-50,000 2ND TRIMESTER 1,000-50,000 3RD TRIMESTER Performed By: #### P REGQNT #### [facility] [address] [place] [address] Dr. Rene Ferguson Pap IG, rfx Aptima HPV, rfx 16/18,45on 10-10-2020 . . Normal [facility] Comment on above: Result Comment: Perf ormed at: WB Performed By: #### P APHR2A #### [facility] [address] [place] [address] Marissaestefani Toribio DIAGNOSIS: Comment Normal [facility] Comment on above: Result Comment: NEGA TIVE FOR INTRAEPITHELIAL LESION OR MALIGNANCY. Performed at: WB Performed By: #### P APHR2A #### [facility] [address] [place] [address] Marissaestefani Toribio HPV Aptima Positive Abnormal Negative [facility] Comment on above: Result Comment: This nucleic acid amplification test detects fourteen high-risk HPV types (16,18,31,33,35,39,45,51,52,56,58,59,66,68) without differentiation. Performed at: =G Performed By: #### P APHR2A #### [facility] [address] [place] [address] Marissa Nilton HPV Genotype 16 Negative Normal Negative [facility] Comment on above: Result Comment: Perf ormed at: =G Performed By: #### P APHR2A #### [facility] [address] [place] [address] Marissaestefani Manriquezen HPV Genotype 18,45 Positive Abnormal Negative [facility] Comment on above: Result Comment: Perf ormed at: =G Performed By: #### P APHR2A #### [facility] [address] [place] [address] Marissaestefani Toribio Methodology: Comment Normal [facility] Comment on above: Result Comment: This liquid based ThinPrep(R) pap test was screened with the use of an image guided system. Performed at: WB Performed By: #### P APHR2A #### [facility] [address] [place] [address] Marissa Toribio Note: Comment Normal [facility] Comment on above: Result Comment: The [...] WB Performed By: #### P APHR2A #### [facility] [address] [address] Marissa Nilton Performed by: Comment Normal [facility] Comment on above: Result Comment: Miguelina Carroll, Bias Binding Cutter (ASCP) Performed at: WB Performed By: #### P APHR2A #### [facility] [address] [address] Marissa Toribio Specimen adequacy: Comment Normal [facility] Comment on above: Result Comment: Sati sfactory for evaluation. Endocervical and/or squamous metaplastic cells (endocervical component) are present. Performed at: WB Performed By: #### P APHR2A #### [facility] [address] [address] Marissa Nilton No Panel Information [facility] Vital Signs Date Time Vital Sign Value Performing Clinician Lvi jah 11-25-2024 16:57-0400 Body height 162.56 cm [facility] 11-25-2024 16:57-0400 Body mass index (BMI) [Ratio] 44.6 kg/m2 [facility] 11-25-2024 16:57-0400 Body temperature 97.7 [degF] [facility] 11-25-2024 16:57-0400 Body weight 117.93 kg [facility] 11-25-2024 16:57-0400 Diastolic blood pressure 93 mm[Hg] [facility] 11-25-2024 16:57-0400 Heart rate 75 /min [facility] 11-25-2024 16:57-0400 Respiratory rate 18 /min [facility] 11-25-2024 16:57-0400 SaO2% (BldA) [Mass fraction] 94 % [facility] 11-25-2024 16:57-0400 Systolic blood pressure 152 mm[Hg] [facility] 11-22-2024 08:20-0400 Body height 162.6 cm Millie Ellis MD Work Phone: [facility] 11-22-2024 08:20-0400 Body mass index (BMI) [Ratio] 45.14 kg/m2 Millie Ellis MD Work Phone: [facility] 11-22-2024 08:20-0400 Body weight 119.3 kg Millie Ellis MD Work Phone: [facility] 11-08-2024 07:53-0500 Body mass index (BMI) [Ratio] 45.32 kg/m2 David Mckeon MD Work Phone: [facility] 11-08-2024 07:53-0500 Body weight 119.75 kg David Mckeon MD Work Phone: [facility] 11-08-2024 07:53-0500 Diastolic blood pressure 86 mm[Hg] David Mckeon MD Work Phone: [facility] 11-08-2024 07:53-0500 Heart rate 75 /min David Mckeon MD Work Phone: [facility] 11-08-2024 07:53-0500 Respiratory rate 18 /min David Mckeon MD Work Phone: [facility] 11-08-2024 07:53-0500 SaO2% (BldA) [Mass fraction] 95 % David Mckeon MD Work Phone: [facility] 11-08-2024 07:53-0500 Systolic blood pressure 142 mm[Hg] David Mckeon MD Work Phone: [facility] 10-07-2024 10:42-0500 Body height 162.6 cm David Mckeon MD Work Phone: [facility] 10-07-2024 10:42-0500 Body mass index (BMI) [Ratio] 45.06 kg/m2 David Mckeon MD Work Phone: [facility] 10-07-2024 10:42-0500 Body temperature 97.9 [degF] David Mckeon MD Work Phone: [facility] 10-07-2024 10:42-0500 Body weight 119.07 kg David Mckeon MD Work Phone: [facility] 10-07-2024 10:42-0500 Diastolic blood pressure 98 mm[Hg] David Mckeon MD Work Phone: [facility] 10-07-2024 10:42-0500 Heart rate 79 /min David Mckeon MD Work Phone: [facility] 10-07-2024 10:42-0500 Respiratory rate 20 /min David Mckeon MD Work Phone: [facility] 10-07-2024 10:42-0500 SaO2% (BldA) [Mass fraction] 97 % David Mckeon MD Work Phone: [facility] 10-07-2024 10:42-0500 Systolic blood pressure 156 mm[Hg] David Mckeon MD Work Phone: [facility] 07-06-2024 09:40-0400 Body height 162.6 cm David Mckeon MD Work Phone: [facility] 07-06-2024 09:40-0400 Body mass index (BMI) [Ratio] 44.46 kg/m2 David Mckeon MD Work Phone: [facility] 07-06-2024 09:40-0400 Body temperature 97.7 [degF] David Mckeon MD Work Phone: [facility] 07-06-2024 09:40-0400 Body weight 117.48 kg David Mckeon MD Work Phone: [facility] 07-06-2024 09:40-0400 Diastolic blood pressure 90 mm[Hg] David Mckeon MD Work Phone: [facility] 07-06-2024 09:40-0400 Heart rate 88 /min David Mckeon MD Work Phone: [facility] 07-06-2024 09:40-0400 Respiratory rate 16 /min David Mckeon MD Work Phone: [facility] 07-06-2024 09:40-0400 Systolic blood pressure 144 mm[Hg] David Mckeon MD Work Phone: [facility] 05-13-2024 12:16-0400 Diastolic blood pressure 72 mm[Hg] Michel Joseph MD Work Phone: [facility] 05-13-2024 12:16-0400 Heart rate 80 /min Michel Joseph MD Work Phone: [facility] 05-13-2024 12:16-0400 Respiratory rate 18 /min Michel Joseph MD Work Phone: [facility] 05-13-2024 12:16-0400 SaO2% (BldA) [Mass fraction] 93 % Michel Joseph MD Work Phone: [facility] 05-13-2024 12:16-0400 Systolic blood pressure 145 mm[Hg] Michel Joseph MD Work Phone: [facility] 05-13-2024 11:38-0400 Body height 162.6 cm Michel Joseph MD Work Phone: [facility] 05-13-2024 11:38-0400 Body mass index (BMI) [Ratio] 42.91 kg/m2 Michel Joseph MD Work Phone: [facility] 05-13-2024 11:38-0400 Body temperature 97.9 [degF] Michel Joseph MD Work Phone: [facility] 05-13-2024 11:38-0400 Body weight 113.4 kg Michel Joseph MD Work Phone: [facility] 04-29-2024 11:01-0400 Body height 162.6 cm Sushila Mindzora NURSE GENERAL DUTY.PONY RIDE OPERATOR Work Phone: [facility] 04-29-2024 11:01-0400 Body mass index (BMI) [Ratio] 44.63 kg/m2 Sushila Mindzora NURSE GENERAL DUTY.PONY RIDE OPERATOR Work Phone: [facility] 04-29-2024 11:01-0400 Body weight 117.94 kg Sushila Mindzora NURSE GENERAL DUTY.PONY RIDE OPERATOR Work Phone: [facility] 04-29-2024 11:01-0400 Diastolic blood pressure 99 mm[Hg] Sushila Mindzora NURSE GENERAL DUTY.PONY RIDE OPERATOR Work Phone: [facility] 04-29-2024 11:01-0400 Heart rate 64 /min Sushila Mindzora NURSE GENERAL DUTY.PONY RIDE OPERATOR Work Phone: [facility] 04-29-2024 11:01-0400 Systolic blood pressure 144 mm[Hg] Sushila Mindzora NURSE GENERAL DUTY.PONY RIDE OPERATOR Work Phone: [facility] 03-08-2024 13:51-0400 Body height 162.6 cm Pepe Pope MD Work Phone: [facility] 03-08-2024 13:51-0400 Body mass index (BMI) [Ratio] 45.11 kg/m2 Pepe Pope MD Work Phone: [facility] 03-08-2024 13:51-0400 Body weight 119.2 kg Pepe Pope MD Work Phone: [facility] 03-08-2024 13:51-0400 Diastolic blood pressure 90 mm[Hg] Pepe Pope MD Work Phone: [facility] 03-08-2024 13:51-0400 Heart rate 63 /min Pepe Pope MD Work Phone: [facility] 03-08-2024 13:51-0400 Systolic blood pressure 157 mm[Hg] Pepe Pope MD Work Phone: [facility] 03-02-2024 10:01-0400 Body height 162.6 cm Violeta Esquivel NURSE GENERAL DUTY-PONY RIDE OPERATOR Work Phone: [facility] 03-02-2024 10:01-0400 Body mass index (BMI) [Ratio] 44.63 kg/m2 Violetajose daniel Parkergel NURSE GENERAL DUTY-PONY RIDE OPERATOR Work Phone: [facility] 03-02-2024 10:01-0400 Body weight 117.94 kg Violetajose daniel Esquivel NURSE GENERAL DUTY-PONY RIDE OPERATOR Work Phone: [facility] 03-02-2024 10:01-0400 Diastolic blood pressure 89 mm[Hg] Violeta Esquivel NURSE GENERAL DUTY-PONY RIDE OPERATOR Work Phone: [facility] 03-02-2024 10:01-0400 Heart rate 94 /min Violetajose daniel Esquivel NURSE GENERAL DUTY-PONY RIDE OPERATOR Work Phone: [facility] 03-02-2024 10:01-0400 SaO2% (BldA) [Mass fraction] 92 % Violetajose daniel Esquivel NURSE GENERAL DUTY-PONY RIDE OPERATOR Work Phone: [facility] 03-02-2024 10:01-0400 Systolic blood pressure 158 mm[Hg] Violeta Esquivel NURSE GENERAL DUTY-PONY RIDE OPERATOR Work Phone: [facility] 02-23-2024 15:24-0400 Body height 162.6 cm Michel Joseph MD Work Phone: [facility] 02-23-2024 15:24-0400 Body mass index (BMI) [Ratio] 44.77 kg/m2 Michel Joseph MD Work Phone: [facility] 02-23-2024 15:24-0400 Body weight 118.3 kg Michel Joseph MD Work Phone: [facility] 02-23-2024 15:24-0400 Diastolic blood pressure 82 mm[Hg] Michel Joseph MD Work Phone: [facility] 02-23-2024 15:24-0400 Systolic blood pressure 124 mm[Hg] Michel Joseph MD Work Phone: [facility] 01-21-2024 08:07-0400 Body height 162.6 cm Pepe Pope MD Work Phone: [facility] 01-21-2024 08:07-0400 Body mass index (BMI) [Ratio] 44.31 kg/m2 Pepe Pope MD Work Phone: [facility] 01-21-2024 08:07-0400 Body weight 117.1 kg Pepe Pope MD Work Phone: [facility] 01-21-2024 08:07-0400 Diastolic blood pressure 91 mm[Hg] Pepe Pope MD Work Phone: [facility] 01-21-2024 08:07-0400 Heart rate 66 /min Pepe Pope MD Work Phone: [facility] 01-21-2024 08:07-0400 Systolic blood pressure 138 mm[Hg] Pepe Pope MD Work Phone: [facility] 11-04-2023 08:27-0500 Body height 162.6 cm David Mckeon MD Work Phone: [facility] 11-04-2023 08:27-0500 Body mass index (BMI) [Ratio] 44.03 kg/m2 David Mckeon MD Work Phone: [facility] 11-04-2023 08:27-0500 Body temperature 96.6 [degF] David Mckeon MD Work Phone: [facility] 11-04-2023 08:27-0500 Body weight 116.35 kg David Mckeon MD Work Phone: [facility] 11-04-2023 08:27-0500 Diastolic blood pressure 82 mm[Hg] David Mckeon MD Work Phone: [facility] 11-04-2023 08:27-0500 Heart rate 76 /min David Mckeon MD Work Phone: [facility] 11-04-2023 08:27-0500 Respiratory rate 16 /min David Mckeon MD Work Phone: [facility] 11-04-2023 08:27-0500 Systolic blood pressure 136 mm[Hg] David Mckeon MD Work Phone: [facility] 09-30-2023 20:00-0500 Body height 162.56 cm MD David Mckeon Work Phone: [facility] 09-30-2023 20:00-0500 Body temperature 98.1 [degF] MD David Mckeon Work Phone: [facility] 09-30-2023 20:00-0500 Body weight 116.7 kg MD David Mckeon Work Phone: [facility] 09-30-2023 20:00-0500 Diastolic blood pressure 93 mm[Hg] MD David Mckeon Work Phone: [facility] 09-30-2023 20:00-0500 Heart rate 77 /min MD David Mckeon Work Phone: [facility] 09-30-2023 20:00-0500 Respiratory rate 16 /min MD David Mckeon Work Phone: [facility] 09-30-2023 20:00-0500 SaO2% (BldA) [Mass fraction] 99 % MD David Mckeon Work Phone: [facility] 09-30-2023 20:00-0500 Systolic blood pressure 158 mm[Hg] MD David Mckeon Work Phone: [facility] 08-11-2023 12:52-0500 Body height 162.6 cm Otilia Camp MD Work Phone: [facility] 08-11-2023 12:52-0500 Body weight 116.45 kg Otilia Camp MD Work Phone: [facility] 08-11-2023 12:52-0500 Diastolic blood pressure 92 mm[Hg] Otilia Camp MD Work Phone: [facility] 08-11-2023 12:52-0500 Heart rate 81 /min Otilia Camp MD Work Phone: [facility] 08-11-2023 12:52-0500 SaO2% (BldA) [Mass fraction] 98 % Otilia Camp MD Work Phone: [facility] 08-11-2023 12:52-0500 Systolic blood pressure 127 mm[Hg] Otilia Camp MD Work Phone: [facility] Encounters Encounter Date Encounter Type Care Provider Facility Start: 01-24-2025 End: 01-24-2025 Clinisync Result Encounter Conor Sophia DO Work Phone: [facility] Unsolicited Start: 01-24-2025 End: 01-24-2025 Clinisync Result Encounter Conor Sophia DO Work Phone: [facility] Unsolicited Start: 01-24-2025 End: 01-24-2025 ambulatory Conor Sophia Facility:[facility] Start: 01-24-2025 End: 01-24-2025 Departed Referred Conor Sophia DO Work Phone: [facility] Start: 01-23-2025 End: 01-23-2025 Clinisync Result [...] of patient and report [facility] 1 [facility] Re[facility] Work Phone: [facility] Comment on above: Encounter for pregna ncy test, result positive (HCC) Start: 01-09-2025 End: 01-09-2025 ambulatory [facility] Facility:[facility] Start: 12-30-2024 End: 12-30-2024 Nursing evaluation of patient and report [facility] Work Phone: [facility] Comment on above: Encounter for pregna ncy test, result positive (HCC) Start: 12-30-2024 End: 12-30-2024 ambulatory KOBI WEINER Facility:[facility] Start: 12-16-2024 End: 12-16-2024 ambulatory Kobi Weiner PA-C Work Phone: [facility] Comment on above: Encounter for pregna ncy test, result positive (HCC) (Primary Dx) Start: 12-16-2024 End: 12-16-2024 Telemedicine consultation with patient Kobi Husam LINO Work Phone: [facility] Start: 12-15-2024 End: 12-16-2024 Follow-up encounter Kobi Husam LINO Work Phone: [facility] Start: 12-14-2024 End: 12-14-2024 ambulatory MICHEL JOSEPH Facility:[facility] Start: 12-12-2024 End: 12-12-2024 ambulatory KOBIPollo WEINER Facility:[facility] Start: 12-09-2024 End: 12-12-2024 Telephone encounter Michel Joseph MD Work Phone: [facility] Comment on above: +hpt on darwin re labwork; Mary Ann / Nilton please call pt re +hpt +hpt lmp 11/11 did addison per ov cycle req labwork Start: 12-06-2024 End: 12-06-2024 Office outpatient visit 10 minutes [facility] NURSE GENERAL DUTY-PONY RIDE OPERATOR Work Phone: [facility] Comment on above: Inclusion cyst (Prim fabiola Dx) Start: 12-06-2024 End: 12-06-2024 ambulatory [facility] Start: 11-25-2024 End: 11-25-2024 ambulatory [facility] Work Phone: Start: 11-25-2024 End: 11-25-2024 Telephone encounter Self [facility] Comment on above: progesterone shots Start: 11-25-2024 End: 11-25-2024 Patient encounter procedure [facility] Work Phone: [facility] Comment on above: Infertility Start: 11-25-2024 End: 11-25-2024 ambulatory LEONEL CABEZAS Facility:[facility] Start: 11-24-2024 End: 11-24-2024 Patient encounter procedure [facility] Work Phone: [facility] Comment on above: Infertility Start: 11-24-2024 End: 11-24-2024 ambulatory SUSHILA LEVY Facility:[facility] Start: 11-22-2024 End: 11-22-2024 ambulatory [facility] Start: 11-22-2024 End: 11-22-2024 Office outpatient new 30 minutes Millie Ellis MD Work Phone: [facility] Comment on above: Inclusion cyst (Prim fabiola Dx) Start: 11-22-2024 End: 11-22-2024 ambulatory [facility] Start: 11-21-2024 End: 11-21-2024 Patient encounter procedure [facility] Work Phone: [facility] Comment on above: Infertility Start: 11-21-2024 End: 11-21-2024 ambulatory LEONEL DUDZIAK Facility:[facility] Start: 11-14-2024 End: 11-15-2024 Telephone encounter Michel Joseph MD Work Phone: [facility] Comment on above: needs letrozole toda y Start: 11-14-2024 End: 11-14-2024 Patient encounter procedure [facility] Work Phone: [facility] Comment on above: Arrived Start: 11-14-2024 End: 11-14-2024 ambulatory RADHA ATTARAN Facility:[facility] Start: 11-11-2024 End: 11-14-2024 Telephone encounter Michel Joseph MD Work Phone: [facility] Comment on above: Appointment Start: 11-09-2024 End: 11-09-2024 Orders Only David Mckeon MD Work Phone: [facility] Start: 11-08-2024 End: 11-08-2024 Telephone encounter Sushila Levy APRN.CNP Work Phone: [facility] Comment on above: Refill Request Start: 11-08-2024 End: 11-08-2024 Patient encounter status David Mckeon MD Work Phone: [facility] Start: 11-08-2024 End: 11-08-2024 Periodic preventive med est patient 18-39 yrs David Mckeon MD Work Phone: [facility] Comment on above: Routine general medi aliyah examination at a health care facility (Primary Dx); Inclusion cyst; PCOS (polycystic ovarian syndrome) Start: 11-08-2024 Encounter for genera l adult medical examination without abnormal findings DAVID MCKEON [facility] Start: 11-08-2024 End: 11-08-2024 Refill Sushila Levy APRN.PONY RIDE OPERATOR Work Phone: [facility] Comment on above: Refill Request Start: 10-23-2024 End: 10-23-2024 Patient encounter procedure [facility] 2 [facility] Be[facility] Work Phone: [facility] Start: 10-23-2024 End: 10-23-2024 ambulatory SUSHILA LEVY [facility] Start: 10-23-2024 End: 10-23-2024 Nursing evaluation of patient and report Nurse Louisa [facility] Be[facility] Work Phone: [facility] Comment on above: Female infertility Start: 10-21-2024 End: 10-21-2024 Patient encounter procedure [facility] Work Phone: [facility] Comment on above: Arrived Start: 10-21-2024 End: 10-21-2024 ambulatory RADHA GILLIAM Facility:[facility] Start: 10-19-2024 End: 10-19-2024 Patient encounter procedure [facility] Work Phone: [facility] Comment on above: Infertility Start: 10-19-2024 End: 10-19-2024 ambulatory MICHEL JOSEPH Facility:[facility] Start: 10-12-2024 End: 10-12-2024 Patient encounter procedure [facility] 1 [facility] Work Phone: [facility] Comment on above: Arrived Start: 10-12-2024 End: 10-12-2024 ambulatory MICHEL JOSEPH Facility:[facility] Start: 10-10-2024 End: 10-10-2024 Telephone encounter Michel Joseph MD Work Phone: [facility] Comment on above: needs to schedule us for so cycle Start: 10-07-2024 End: 10-07-2024 ambulatory DAVID MCKEON [facility] Start: 10-07-2024 End: 10-07-2024 Office outpatient visit 15 minutes David Mckeon MD Work Phone: [facility] Comment on above: PCOS [...] Start: 09-20-2024 End: 09-20-2024 ambulatory MICHEL JOSEPH Facility:[facility] Start: 09-19-2024 End: 09-19-2024 Patient encounter procedure Us Tech 1 [facility] Re[facility] Work Phone: Rep[facility]ductive End[facility]ology Infertility Comment on above: Infertility Start: 09-19-2024 End: 09-19-2024 ambulatory MICHEL JOSEPH Facility:[facility] Start: 09-15-2024 End: 09-15-2024 Patient encounter procedure Us Tech 1 [facility] Rej Work Phone: [facility]ductive Endocrinology Infertility Comment on above: Arrived Start: 09-15-2024 End: 09-15-2024 ambulatory SUSHILA LEVY Facility:[facility] Start: 09-12-2024 End: 09-12-2024 Patient encounter procedure Us Tech 1 [facility] Rej Work Phone: Reproductive Endocrinology Infertility Comment on above: Infertility Start: 09-12-2024 End: 09-12-2024 ambulatory MICHEL JOSEPH Facility:[facility] Start: 09-08-2024 End: 09-09-2024 Telephone encounter Michel Joseph MD Work Phone: [facility]ductive Endocrinology Infertility Comment on above: Appointment; LMP / set up medicated cycle; Called back today is day 3/ set up super ov Start: 08-17-2024 End: 08-22-2024 Nursing evaluation of patient and report Radha Gilliam MD Work Phone: Rep[facility]ductive Endocrinology Infertility Comment on above: Female infertility Start: 08-17-2024 End: 08-17-[address] [facility] Facility:[facility] Start: 08-15-2024 End: 08-15-2024 Nursing evaluation of patient and report Arley Parikh MD Work Phone: Reproductive Endocrinology Infertility Comment on above: Female infertility Start: 08-15-2024 End: 08-15-[address] [facility] Facility:[facility] Start: 08-10-2024 End: 08-10-2024 Nursing evaluation of patient and report Nurse Louisa [facility] Rej Reproductive Endocrinology Infertility Comment on above: Female infertility Start: 08-10-2024 End: 08-10-[address] [facility] Facility:[facility] Start: 08-08-2024 End: 08-09-2024 Telephone encounter Michel Joseph MD Work Phone: Reproductive Endocrinology Infertility Comment on above: LMP 08/06/24/ set up baselines for super ov Start: 07-18-2024 End: 07-18-2024 Nursing evaluation of patient and report Arley Parikh MD Work Phone: Reproductive Endocrinology Infertility Comment on above: Female infertility Start: 07-18-2024 End: 07-18-2024 ambulatory [facility] Facility:[facility] Start: 07-14-2024 End: 07-14-2024 Nursing evaluation of patient and report Michel Joseph MD Work Phone: Reproductive Endocrinology Infertility Comment on above: Female infertility Start: 07-14-2024 End: 07-14-2024 ambulatory [facility] Facility:[facility] Start: 07-07-2024 End: 07-07-2024 Nursing evaluation of patient and report Radha Gilliam MD Work Phone: Reproductive Endocrinology Infertility Comment on above: Female infertility Start: 07-07-2024 End: 07-07-2024 ambulatory [facility] Facility:[facility] Start: 07-06-2024 End: 07-06-2024 Office outpatient visit 15 minutes David Mckeon MD Work Phone: [facility] Comment on above: Other acute sinusiti s, recurrence not specified (Primary Dx) Start: 07-06-2024 End: 07-06-2024 ambulatory DAVID MCKEON [facility] Start: 07-04-2024 End: 07-04-2024 Telephone encounter Michel Joseph MD Work Phone: Reproductive Endocrinology Infertility Comment on above: Next Steps Start: 06-15-2024 End: 06-15-2024 Nursing evaluation of patient and report Radha Gilliam MD Work Phone: Reproductive Endocrinology Infertility Comment on above: Primary female infer tility Start: 06-15-2024 End: 06-15-[address] [facility] Start: 06-13-2024 End: 06-13-2024 Nursing evaluation of patient and report Arley Parikh MD Work Phone: Reproductive Endocrinology Infertility Comment on above: Primary female infer tility Start: 06-13-2024 End: 06-13-2024 ambulatory [facility] Facility:[facility] Start: 06-10-2024 End: 06-10-2024 ambulatory [facility] Facility:[facility] Start: 06-10-2024 End: 06-10-2024 Nursing evaluation of patient and report Jazmine Gonzalze MD Work Phone: Rep[facility]ductive Endocrinology Infertility Comment on above: Primary female infer tility Start: 06-06-2024 End: 06-06-2024 Nursing evaluation of patient and report Arley Parikh MD Work Phone: [facility]ductive Endocrinology Infertility Comment on above: Primary female infer tility Start: 06-06-2024 End: 06-06-2024 ambulatory MICHEL JOSEPH Facility:[facility] Start: 06-03-2024 End: 06-03-2024 Nursing evaluation of patient and report Michel Joseph MD Work Phone: [facility]ductive Endocrinology Infertility Comment on above: Primary female infer tility Start: 06-03-2024 End: 06-03-2024 ambulatory [facility] Facility:[facility] Start: 05-27-2024 End: 05-27-2024 Nursing evaluation of patient and report Jazmine Gonzalez MD Work Phone: Reproductive Endocrinology Infertility Comment on above: Female infertility Start: 05-27-2024 End: 05-27-2024 ambulatory MICHEL [place] Facility:[facility] Start: 05-24-2024 End: 05-24-2024 ambulatory Michel Joseph MD Work Phone: [facility]ology [facility]ertility Start: 05-13-2024 End: 05-13-2024 ambulatory MICHEL JOSEPH Facility:[facility] Start: 05-13-2024 End: 05-13-2024 Patient encounter procedure Michel Joseph MD Work Phone: [facility] Comment on above: Pre-operative labora tory examination (Primary Dx); Endometrial polyp; Encounter for fertility testing Start: 05-13-2024 End: 05-13-2024 Patient encounter status Michel Joseph MD Work Phone: [facility] Start: 05-05-2024 End: 05-05-2024 Orders Only Michel [...] End: 04-29-2024 Patient encounter procedure Sushila Levy APRN.PONY RIDE OPERATOR Work Phone: Reproductive Endocrinology Infertility Comment on above: Pre-procedure lab ex am (Primary Dx); Fertility testing Start: 04-29-2024 End: 04-29-2024 Patient encounter status Sushila Levy APRN.PONY RIDE OPERATOR Work Phone: [facility] Start: 04-29-2024 End: 04-29-2024 ambulatory MICHEL JOSEPH Facility:[facility] Start: 04-29-2024 Encounter for preprocedural laboratory examination SUSHILA LEVY [facility] Start: 04-15-2024 End: 04-15-2024 Nursing evaluation of patient and report Nurse Louisa [facility] Rej Reproductive Endocrinology Infertility Comment on above: Irregular menses (Pr imary Dx); Female infertility Start: 04-15-2024 End: 04-15-2024 ambulatory SUSHILA LEVY Facility:[facility] Start: 04-07-2024 ambulatory Michel briceño MD [...] Start: 04-04-2024 End: 04-04-2024 ambulatory MICHEL JOSEPH Facility:[facility] Start: 03-30-2024 Telephone encounter Michel hendricks MD [...] Start: 03-08-2024 End: 03-08-2024 ambulatory PEPE POPE Facility:[facility] Start: 03-08-2024 End: 03-08-2024 Patient encounter procedure Pepe Pope MD Work Phone: OB/Gynecology Comment on above: Cervical high risk H PV (human papillomavirus) test positive (Primary Dx) Start: 03-07-2024 Telephone encounter Michel hendricks MD Work Phone: Reproductive Endocrinology Infertility Comment on above: discuss her cycle ; lmp Thursday cycle for 1 day Start: 03-02-2024 End: 03-02-2024 Office outpatient visit 25 minutes [facility] NURSE GENERAL DUTY-PONY RIDE OPERATOR Work Phone: [facility] Comment on above: NIKO (obstructive sle ep apnea) (Primary Dx); CPAP use counseling; Obesity, Class III, BMI 40-49.9 (morbid obesity) ([facility]); Noncompliance with CPAP treatment Start: 03-02-2024 End: 03-02-2024 ambulatory [facility] Start: 02-23-2024 End: 02-23-2024 ambulatory MICHEL JOSEPH Facility:[facility] Start: 02-23-2024 End: 02-23-2024 Patient encounter procedure [...] Start: 01-21-2024 End: 01-21-2024 ambulatory PEPE POPE Facility:[facility] Start: 01-21-2024 End: 01-21-2024 Patient encounter procedure [...] encounter status Pepe Pope MD Work Phone: [facility] Work Phone: Start: 01-11-2024 End: 01-11-2024 Nursing evaluation of patient and report Nurse Louisa [facility] Rej Reproductive Endocrinology Infertility Comment on above: Female infertility Start: 01-08-2024 Telephone encounter Radha kyle MD Work Phone: Reproductive Endocrinology Infertility Comment on above: Financial Clearance (Please verify if patient is cleared for upcoming cycle. ) Start: 01-08-2024 End: 01-08-2024 Nursing evaluation of patient and report Nurse Louisa [facility] Re[facility] Reproductive Endocrinology Infertility Comment on [...] 12-26-2023 End: 12-26-2023 Telephone encounter Violeta Esquivel NURSE GENERAL DUTY-PONY RIDE OPERATOR Work Phone: [facility] Start: 12-25-2023 Telephone encounter Dmitry Menchaca MD Work Phone: Reproductive Endocrinology Infertility Comment on above: Patient Question; ki ra pt ret call pls leave message on he my chart Start: 12-23-2023 End: 12-23-2023 Telephone encounter Violeta Esquivel NURSE GENERAL DUTY-PONY RIDE OPERATOR Work Phone: [facility] Start: 12-02-2023 End: 12-02-2023 ambulatory DMITRY MENCHACA Facility:[facility] Start: 11-20-2023 End: 11-20-2023 Patient encounter procedure David Mckeon MD Work Phone: [facility] Comment on above: PCOS (polycystic ova uriel syndrome) (Primary Dx); Hypertriglyceridemia Start: 11-13-2023 End: 11-13-2023 ambulatory KOBI SMOLEN Facility:[facility] Start: 11-13-2023 End: 11-13-2023 ambulatory Kobi [...] encounter status David Mckeon MD [facility] Phone[facility] [employer] Work Phone: Start: 11-04-2023 End: 11-04-2023 Periodic preventive med est patient 18-39 yrs David Mckeon MD Work Phone: [facility] Comment on above: Routine general medi aliyah examination at a health care facility (Primary Dx) Start: 10-30-2023 Preprocedural examination done Dmitry Menchaca MD Work Phone: [facility] Work Phone: Start: 10-30-2023 End: 10-30-2023 ambulatory DIMTRY MENCHACA Facility:[facility] Start: 10-29-2023 Telephone encounter Dmitry Menchaca MD Work Phone: [facility] Start: 10-26-2023 Orders Only Dmitry Menchaca MD Work Phone: Reproductive Endocrinology Infertility Comment on above: Missed (Krystal khurram Dx) Start: 10-23-2023 Telephone encounter Dmitry Menchaca MD Work Phone: Obstetrics/Gynecology Comment on above: Non Clinical Advisor - O ther (Pt loss ) Start: 10-23-2023 End: 10-23-2023 Patient encounter procedure Whi Tech 2 Disk Recoater [address] RD Work Phone: Maternal Medicine Comment on above: Non-viable (Primary Dx) Start: 10-22-2023 Transcribe Orders Disk Recoater Trans cribe Provider Maternal Medicine Comment on above: Encounter to determi ne viability of , fetus 1 of multiple gestation (Primary Dx) Start: 10-16-2023 End: 10-16-2023 flow sheet [facility] Nurse [facility] Comment on above: GA: 8w5d Start: 09-30-2023 End: 10-01-2023 Emergency department patient visit MD David Mckeon Work Phone: [facility] Work Phone: Start: 09-18-2023 End: 09-18-2023 ambulatory KOBI WEINER Facility:[facility] Start: 09-15-2023 Telephone encounter Eugenia [facility] Start: 08-25-2023 End: 08-25-2023 Nursing evaluation of patient and report Zhen Sears MD Work Phone: Rep[facility]ductive Endocrinology Infertility Comment on above: Female infertility Start: 08-19-2023 End: 08-19-2023 Nursing evaluation of patient and report Radha Gilliam MD Work Phone: [facility]ductive Endocrinology Infertility Comment on above: Female infertility Start: 08-18-2023 Orders Only Leonel colon APRN.PONY RIDE OPERATOR Work Phone: Reproductive Endocrinology Infertility Comment on [...] m caregiver Ines Julio MD Work Phone: [facility] Start: 07-30-2023 End: 07-30-2023 Nursing evaluation of [...] encounter procedure Radha Gilliam MD Work Phone: [facility] Start: 07-14-2023 Refill Sushila Melissa del cid [...] Telephone encounter Dmitry Menchaca MD Work Phone: [facility] Comment on above: Medication Problem Start: 05-25-2023 Telephone encounter Dmitry Menchaca MD Work Phone: [facility] Comment on above: Patient Update Start: 05-25-2023 End: 05-25-2023 ambulatory Arley Parikh MD Work Phone: Rep[facility]ductive Endocrinology Infertility Start: 05-25-2023 End: 05-25-2023 Patient encounter procedure Arley Parikh MD Work Phone: [facility] Start: 05-21-2023 Telephone encounter Dmitry Menchaca MD [...] patient and report Nurse Louisa [facility] Be[facility] Work Phone: Reproductive Endocrinology Infertility Comment on above: Negative t est (Primary Dx) Start: 04-03-2023 End: 04-03-2023 Subsequent hospital visit by physician Vishal Archuleta [facility] [place] Comment on above: Encounter for fertil ity testing [Z31.41] Start: 03-09-2023 End: 03-09-2023 Immunity to rubella by positive serology [facility] Work Phone: [facility] Start: 03-09-2023 End: 03-09-2023 Immunity to varicella by positive serology Nurse Louisa [facility] Work Phone: Reproductive Endocrinology Infertility Start: 03-09-2023 End: 03-09-2023 Nursing evaluation of patient and report Nurse Louisa [facility] Work Phone: Reproductive Endocrinology Infertility Comment on above: Encounter for fertil ity testing (Primary Dx); Immunity to varicella determined by serologic test; Immunity to rubella determined by serologic test Start: 03-05-2023 ambulatory Dmitry Menchaca MD Work Phone: [facility] Start: 03-05-2023 Patient encounter procedure Dmitry Menchaca MD Work Phone: Reproductive Endocrinology Infertility Comment on above: Nurse appointment Start: 02-23-2023 Telephone encounter Dmitry Menchaca MD Work Phone: Reproductive Endocrinology Infertility Comment on above: Patient Question Medication Problem Start: 02-20-2023 Telephone encounter Dmitry Menchaca MD Work Phone: Reproductive Endocrinology Infertility Comment on above: New IVF Start: 02-18-2023 End: 02-18-2023 ambulatory DMITRY MENCHACA Facility:[facility] Start: 12-19-2022 End: 12-19-2022 Nursing evaluation of patient and report Nurse Louisa [facility] Rej Reproductive Endocrinology Infertility Comment on above: Female infertility Start: 12-01-2022 ambulatory Sushila del cid APRN.PONY RIDE OPERATOR Work Phone: Reproductive Endocrinology Infertility Comment on above: Next Steps Start: 11-30-2022 ambulatory Sushila del cid NURSE GENERAL DUTY.PONY RIDE OPERATOR Work Phone: Reproductive Endocrinology Infertility Comment on above: Cycle Start: 11-28-2022 Telephone encounter Dmitry Menchaca MD Work Phone: Reproductive Endocrinology Infertility Comment on above: metformin refill / c ompletely out Start: 11-26-2022 Get Medical Advice Dmitry Menchaca MD Work Phone: Reproductive Endocrinology Infertility Comment on above: Refill Start: 11-17-2022 ambulatory Sushila del cid NURSE GENERAL DUTY.PONY RIDE OPERATOR Work Phone: Reproductive Endocrinology Infertility Comment on above: Progesterone draw Start: 11-10-2022 End: 11-10-2022 Nursing evaluation of patient and report Nurse Louisa [facility] Re[facility] Reproductive Endocrinology Infertility Comment on above: Female infertility Start: 11-07-2022 ambulatory Sushila del cid NURSE GENERAL DUTY.PONY RIDE OPERATOR Work Phone: Reproductive Endocrinology Infertility Comment on above: Dexamethasone Start: 11-07-2022 End: 11-07-2022 Nursing evaluation of patient and report Nurse Louisa [facility] Re[facility] Reproductive Endocrinology Infertility Comment on above: Female infertility ( Primary Dx); Encounter for fertility planning Start: 10-27-2022 Telephone encounter Dmitry Menchaca MD Work Phone: Reproductive Endocrinology Infertility Comment on above: cd2; ret call Start: 09-30-2022 ambulatory Sushila del cid PONY RIDE OPERATOR Work Phone: Reproductive Endocrinology Infertility Comment on [...] with patient Dmitry Menchaca MD Work Phone: [facility] Start: 09-13-2021 End: 09-14-2021 ambulatory [...] Work Phone: Start: 01-17-2025 US OB TRANSVAGINAL [place] polyondina Sales CN Work Phone: Start: 01-09-2025 Us preg uterus after 1st trimest 09/14 gestation Michel Joseph MD Work Phone: Start: 12-30-2024 Us preg uterus after 1st trimest 09/14 gestation Kobi Weiner PA-C Work Phone: Start: 11-25-2024 Us pelvic nonobstetr ic image dcmtn limited/f/u Leonel Dudziak NURSE GENERAL DUTY.PONY RIDE OPERATOR Work Phone: Start: 11-24-2024 Us pelvic nonobstetr ic image dcmtn limited/f/u Leonel Dudziak NURSE GENERAL DUTY.PONY RIDE OPERATOR Work Phone: Start: 11-21-2024 Us pelvic nonobstetr ic image dcmtn limited/f/u Leonel Dudziak NURSE GENERAL DUTY.PONY RIDE OPERATOR Work Phone: Start: 11-14-2024 Us pelvic nonobstetr ic image dcmtn limited/f/u Leonel Dudziak NURSE GENERAL DUTY.PONY RIDE OPERATOR Work Phone: Start: 11-08-2024 Adult depression scr eening assessment David Mckeon MD Work Phone: Start: 10-23-2024 Us pelvic nonobstetr ic image dcmtn limited/f/u Sushila Mindzora NURSE GENERAL DUTY.PONY RIDE OPERATOR Work Phone: Start: 10-23-2024 Assay of estradiol Maine Gilliam MD Work Phone: Start: 10-21-2024 Us pelvic nonobstetr ic image dcmtn limited/f/u Sushila Mindzora NURSE GENERAL DUTY.PONY RIDE OPERATOR Work Phone: Start: 10-19-2024 Us pelvic nonobstetr [...] nonobstetr ic image dcmtn limited/f/u Sushila Mindzora NURSE GENERAL DUTY.PONY RIDE OPERATOR Work Phone: Start: 08-15-2024 Us pelvic nonobstetr ic image dcmtn limited/f/u Sushila Mindzora NURSE GENERAL DUTY.PONY RIDE OPERATOR Work Phone: Start: 08-10-2024 Us pelvic nonobstetr ic image dcmtn limited/f/u Sushila Mindzora NURSE GENERAL DUTY.PONY RIDE OPERATOR Work Phone: Start: 07-18-2024 Us pelvic nonobstetr ic image dcmtn limited/f/u Sushila Mindzora NURSE GENERAL DUTY.PONY RIDE OPERATOR Work Phone: Start: 07-14-2024 Us pelvic nonobstetr ic image dcmtn limited/f/u Sushila Mindzora NURSE GENERAL DUTY.PONY RIDE OPERATOR Work Phone: Start: 07-07-2024 Us pelvic nonobstetr ic image dcmtn limited/f/u Sushila Mindzora NURSE GENERAL DUTY.PONY RIDE OPERATOR Work Phone: Start: 07-06-2024 Adult depression scr [...] Speci men Type: BLOOD SPECIMEN Ordering Facility: [facility] Address: [address] [place] [address] Performed By: #### 1 [id number], [id number], 2243-4 #### [facility] CLIA [id number] [facility]. [address] [place] Start: 05-13-2024 Urine test visual color cmprsn jerzy Joseph MD Work Phone: Start: 04-29-2024 Saline infus sonohysterography w/color doppler Michel Joseph MD Work Phone: Start: 04-29-2024 Urine test visual color cmprsn jerzy Levy NURSE GENERAL DUTY.PONY RIDE OPERATOR Work Phone: Start: 04-15-2024 Us pelvic nonobstetr ic image dcmtn limited/f/u Kobi Weiner PA-C Work Phone: Start: 03-08-2024 Colposcopy entire va mario w/cervix if present Pepe Pope MD Work Phone: Start: 03-08-2024 UA DIP,URINE HCG (POC) Pepe Pope MD Work Phone: Start: 01-21-2024 Microscopic observat ion [Identifier] in Cervix by Cyto stain Violeta Esquivel NURSE GENERAL DUTY-PONY RIDE OPERATOR Work Phone: Start: 01-11-2024 Us pelvic nonobstetr ic image dcmtn limited/f/u Leonel Dudziak NURSE GENERAL DUTY.PONY RIDE OPERATOR Work Phone: Start: 01-08-2024 Us pelvic nonobstetr ic image dcmtn limited/f/u Leonel Dudziak NURSE GENERAL DUTY.PONY RIDE OPERATOR Work Phone: Start: 01-01-2024 Us pelvic nonobstetr ic image dcmtn limited/f/u Leonel Dudziak NURSE GENERAL DUTY.PONY RIDE OPERATOR Work Phone: Start: 11-20-2023 Adult depression scr eening assessment David Mckeon MD Work Phone: Start: 11-04-2023 Adult depression scr eening assessment David Mckeon MD Work Phone: Start: 10-23-2023 Us preg uterus after 1st trimest 09/14 gestation Disk Recoater Transcribe Provider Start: 08-25-2023 Us pelvic nonobstetr ic image dcmtn limited/f/u Leonel Dudziak NURSE GENERAL DUTY.PONY RIDE OPERATOR Work Phone: Start: 08-19-2023 Us pelvic nonobstetr ic image dcmtn limited/f/u Leonel Dudziak NURSE GENERAL DUTY.PONY RIDE OPERATOR Work Phone: Start: 08-11-2023 ALLERGEN SKIN TEST-MARIA [...] nonobstetr ic image dcmtn limited/f/u Leonel Dudziak NURSE GENERAL DUTY.PONY RIDE OPERATOR Work Phone: Start: 05-25-2023 Us pelvic nonobstetr ic image dcmtn limited/f/u Leonel Dudziak NURSE GENERAL DUTY.PONY RIDE OPERATOR Work Phone: Start: 05-21-2023 Us pelvic nonobstetr ic image dcmtn limited/f/u Leonel Dudziak NURSE GENERAL DUTY.PONY RIDE OPERATOR Work Phone: Start: 05-13-2023 Us pelvic nonobstetr ic image dcmtn limited/f/u Leonel Dudziak NURSE GENERAL DUTY.PONY RIDE OPERATOR Work Phone: Start: 04-03-2023 Cath & saline/contra st sonohyster/hysterosalpi Jazmine Gonzalez MD Work Phone: Start: 12-19-2022 Us pelvic nonobstetr ic image dcmtn limited/f/u Sushila Mindzora NURSE GENERAL DUTY.PONY RIDE OPERATOR Work Phone: Start: 11-10-2022 Us pelvic nonobstetr ic image dcmtn limited/f/u Sushila Mindzora NURSE GENERAL DUTY.PONY RIDE OPERATOR Work Phone: Start: 11-07-2022 Us pelvic nonobstetr ic image dcmtn limited/f/u Kobi Weiner PA-C Work Phone: Start: 11-03-2022 Adult depression scr eening assessment Eugenia Cerda CMA Plan of Treatment Date Care Activity Detail Author Start: 2045 RSV Vaccine (1 - 1-dose 60+ series) RSV Vaccine (1 - 1-dose 60+ series) [facility] Start: 01-20-2029 Screening for malignant neoplasm of cervix [facility] Start: 01-20-2027 Screening for malignant neoplasm of cervix Pap Smear [facility] Start: 12-06-2025 Tobacco Screening Tobacco Screening [facility] Start: 11-22-2025 Adult BMI Screening Adult BMI Screening [facility] Start: 11-22-2025 Tobacco Screening Tobacco Screening [facility] Start: 11-09-2025 End: 11-09-2025 Patient encounter procedure 11/09/2025 8:30 AM EST Office Visit [facility] [address] [place], [place] [id number] Jesus Berumen MD [address] [place], [place] [id number] [facility] Start: 11-08-2025 Adult BMI Screening Adult BMI Screening [facility] Start: 11-08-2025 Depression Screening Depression Screening [facility] Start: 11-08-2025 Tobacco Screening Tobacco Screening [facility] Start: 07-06-2025 Adult BMI Screening Adult BMI Screening [facility] Start: 07-06-2025 Depression Screening Depression Screening [facility] Start: 07-06-2025 Tobacco Screening Tobacco Screening [facility] Start: 05-15-2025 Influenza vaccination Influenza Vaccine (Season Ended) [facility] Start: 03-02-2025 Adult BMI Screening Adult BMI Screening [facility] Start: 03-02-2025 Tobacco Screening Tobacco Screening [facility] Start: 01-20-2025 Screening for malignant neoplasm of cervix Cervical Cancer Screening [facility] Start: 01-20-2025 End: 01-20-2025 Professional / ancillary services management 01/20/2025 9:00 AM EDT Ancillary Procedure [facility] [id number] [id number] [facility] Start: 01-10-2025 End: 01-10-2025 ambulatory 01/10/2025 4:30 PM EDT Initial [facility] [address] [facility] [place] [phone] Leonel Sales, CNM [address] [place] [address] Arrived [facility] Comment on above: Arrived Start: 12-30-2024 End: 12-30-2025 OBSTETRIC ULTRASOUND WHI OBSTETRIC ULTRASOUND WHI Anc Imaging Routine Encounter for test, result positive (HCC) Expected: 12/30/2024, Expires: 12/30/2025 [facility] Work Phone: Comment on above: Expected: 12/30/2024, Expires: Start: 12-30-2024 End: 12-30-2024 Nursing evaluation of patient and report 12/30/2024 10:10 AM EDT Nurse Visit [facility] [address] [place] [address] [facility] Comment on above: us Start: 12-16-2024 End: 12-16-2025 OBSTETRIC ULTRASOUND WHI OBSTETRIC ULTRASOUND WHI Anc Imaging Routine Encounter for test, result positive (HCC) Expected: 12/16/2024, Expires: 12/16/2025 [facility] Work Phone: Comment on above: Expected: 12/16/2024, Expires: Start: 12-06-2024 End: 12-06-2024 Patient encounter procedure 12/06/2024 10:15 AM EDT Office Visit [facility] [address] [place] [phone] Abida Duckworth, NURSE GENERAL DUTY-PONY RIDE OPERATOR [address] [place] [address] [facility] Start: 11-25-2024 End: 11-25-2024 Patient encounter procedure 11/25/2024 7:00 AM EDT Procedure [facility] [address] [place] [address] Visit type: Baseline SO us/e2 [facility] Comment on above: Visit type: Baseline SO us/e2 Start: 11-24-2024 End: 11-24-2024 Patient encounter procedure 11/24/2024 7:40 AM EDT Procedure [facility] [address] [place] [address] Visit type: Monitoring, SO us/e2 [facility] Comment on above: Visit type: Monitoring, SO us/e2 Start: 11-21-2024 End: 11-21-2024 Patient encounter procedure 11/21/2024 8:20 AM EDT Procedure [facility] [address] [place] [address] monitoring OI, us/e2 [facility] Comment on above: monitoring OI, us/e2 Start: 11-19-2024 Depression Screening Depression Screening [facility] Start: 11-19-2024 Tobacco Screening Tobacco Screening [facility] Start: 11-08-2024 End: 11-08-2025 CBC W Auto Differential panel - Blood CBC auto differential Lab Routine Routine general medical examination at a health care facility Expected: 11/08/2024, Expires: 11/08/2025 [facility]: Comment on above: Expected: 11/08/2024, Expires: Start: 11-08-2024 End: 11-08-2025 Comprehensive metabolic 2000 panel - Serum or Plasma Comprehensive metabolic panel Lab Routine Routine general medical examination at a health care facility Expected: 11/08/2024, Expires: 11/08/2025 [facility] Comment on above: Expected: 11/08/2024, Expires: Start: 11-08-2024 End: 11-08-2025 Lipid 1996 panel - Serum or Plasma Lipid profile Lab Routine Routine general medical examination at a health care facility Expected: 11/08/2024, Expires: 11/08/2025 [facility] Comment on above: Expected: 11/08/2024, Expires: Start: 11-08-2024 End: 11-08-2025 Thyroid profile includes TSH FT4 Thyroid profile includes TSH FT4 Lab Routine Routine general medical examination at a health care facility Expected: 11/08/2024, Expires: 11/08/2025 [facility] Comment on above: Expected: 11/08/2024, Expires: Start: 11-08-2024 End: 11-08-2024 Patient encounter procedure [facility] Start: 11-04-2024 Adult BMI Screening Adult BMI Screening [facility] Start: 11-04-2024 Depression Screening Depression Screening [facility] Start: 11-04-2024 Tobacco Screening Tobacco Screening [facility] Start: 10-23-2024 End: 10-23-2024 ambulatory 10/23/2024 9:00 AM EST Procedure [facility] [address] [facility] [place] [id number] Monitoring, SO/US,e2 [facility] Comment on above: Monitoring, SO/US,e2 Start: 10-23-2024 End: 10-23-2024 Nursing evaluation of patient and report 10/23/2024 8:30 AM EST Nurse Visit [facility] [address] [facility] [place] [address] Beac, Nurse Louisa [facility] [address] [facility] [place] [id number] e2 [facility] Comment on above: e2 Start: 10-20-2024 End: 10-20-2024 Patient encounter procedure 10/20/2024 6:00 PM EST Office Visit [facility] [address] [place] [address] Benefit check- Follicular US [facility] Comment on above: Benefit check- Follicular US Start: 10-19-2024 End: 10-19-2024 Patient encounter procedure 10/19/2024 7:20 AM EST Procedure [facility] [address] [place] [address] Monitoring, SO us/e2 [facility] Comment on above: Monitoring, SO us/e2 Start: 09-21-2024 End: 09-21-2024 Follow-up encounter 09/21/2024 1:30 PM EST [facility] [address] [place] [address] [place] [address] [place] [address] follow up SO cycle [facility] Comment on above: follow up SO cycle Start: 09-20-2024 End: 09-20-2024 ambulatory 09/20/2024 9:30 AM EST Procedure [facility] [address] [place] [address] Monitoring, SO us/e2 [facility] Comment on above: Monitoring, SO us/e2 Start: 09-19-2024 End: 09-19-2024 Patient encounter procedure 09/19/2024 7:20 AM EST Procedure [facility] [address] [place] [address] monitoring, so us/e2 [facility] Comment on above: monitoring, so us/e2 Start: 09-15-2024 End: 09-15-2024 Patient encounter procedure 09/15/2024 7:00 AM EST Procedure [facility] [address] [place] [address] SO us/e2 [facility] Comment on above: SO us/e2 Start: 09-09-2024 End: 09-09-2024 Patient encounter procedure 09/09/2024 6:00 PM EST Office Visit [facility] [address] [place] [address] follicle us -benefit check [facility] Comment on above: follicle us -benefit check Start: 08-17-2024 End: 08-17-2024 Nursing evaluation of patient and report 08/17/2024 7:30 AM EST Nurse Visit [facility] [address] [place] [address] William Nurse Louisa [facility] [address] [place] [address] SuperOV US/e2 [facility] Comment on above: SuperOV US/e2 Start: 08-10-2024 End: 08-10-2024 Nursing evaluation of patient and report 08/10/2024 7:30 AM EST Nurse Visit [facility] [address] [place] [address] Rej, Nurse Louisa [facility] [address] [place] [address] e2 and us [facility] Comment on above: e2 and us Start: 07-18-2024 End: 07-18-2024 Nursing evaluation of patient and report 07/18/2024 7:00 AM EST Nurse Visit [facility] [address] [place] [address] Rej, Nurse Louisa [facility] [address] [facility] [place] [address] us,e2 [facility] Comment on above: us,e2 Start: 07-14-2024 End: 07-14-2024 Nursing evaluation of patient and report 07/14/2024 7:00 AM EDT Nurse Visit [facility] [address] [place] [address] Rej, Nurse Louisa [facility] [address] [place] [address] superov us/e2 [facility] Comment on above: superov us/e2 Start: 07-07-2024 End: 07-07-2024 Nursing evaluation of patient and report 07/07/2024 7:30 AM EDT Nurse Visit [facility] [address] [place] [address] Rej, Nurse Louisa [facility] [address] [place] [address] SO baseline [facility] Comment on above: SO baseline Start: 06-15-2024 End: 06-15-2024 Nursing evaluation of patient and report 06/15/2024 7:00 AM EDT Nurse Visit [facility] [address] [place] [address] Rej, Nurse Louisa [facility] [address] [place] [address] IVF us/e2/p4/lh [facility] Comment on above: IVF us/e2/p4/lh Start: 06-14-2024 End: 09-13-2024 Estradiol (E2) [Mass/volume] in Serum or Plasma ESTRADIOL-17B BLD Lab STAT Primary female infertility Expected: 06/14/2024 (Approximate), Expires: 09/13/2024 [facility] Comment on above: Expected: 06/14/2024 (Approximate), Expi res: 09/13/2024 Start: 06-14-2024 End: 09-13-2024 Lutropin [Units/volume] in Serum or Plasma LUTEINIZING HORMONE Lab STAT Primary female infertility Expected: 06/14/2024 (Approximate), Expires: 09/13/2024 [facility] Work Phone: Comment on above: Expected: 06/14/2024 (Approximate), Expi res: 09/13/2024 Start: 06-14-2024 End: 09-13-2024 Progesterone [Mass/volume] in Serum or Plasma PROGESTERONE Lab STAT Primary female infertility Expected: 06/14/2024 (Approximate), Expires: 09/13/2024 [facility] Comment on above: Expected: 06/14/2024 (Approximate), Expi res: 09/13/2024 Start: 06-13-2024 End: 06-13-2024 Nursing evaluation of patient and report 06/13/2024 8:15 AM EDT Nurse Visit [facility] [address] [place] [address] Rej, Nurse Louisa [facility] [address] [place] [address] superov us/e2 [facility] Comment on above: superov us/e2 Start: 06-06-2024 End: 06-06-2024 Nursing evaluation of patient and report 06/06/2024 8:45 AM EDT Nurse Visit [facility] [address] [place] [address] Rej, Nurse Louisa [facility] [address] [place] [address] S/O ,us e2 [facility] Comment on above: S/O ,us e2 Start: 06-03-2024 End: 06-03-2024 Patient encounter procedure 06/03/2024 8:40 AM EDT Office [place] [address] Fertility assistance [facility] Comment on above: Fertility assistance Start: 06-03-2024 End: 06-03-2024 Nursing evaluation of patient and report 06/03/2024 7:00 AM EDT Nurse Visit [facility] [address] [place] [address] William, Nurse Louisa [facility] [address] [place] [address] Superov us/e2 [facility] Comment on above: Superov us/e2 Start: 05-30-2024 End: 05-30-2024 Telemedicine consultation with patient 05/30/2024 3:30 PM EDT Telemedicine [facility] [address] [phone] Violeta Esquivel, NURSE GENERAL DUTY-PONY RIDE OPERATOR [address] [address] [facility] Start: 05-15-2024 Covid-19 Vaccine ( season) Covid-19 Vaccine ( season) [facility] Start: 05-15-2024 Covid-19 Vaccine ( season) Covid-19 Vaccine ( season) [facility] Start: 05-15-2024 Influenza vaccination [facility] Start: 04-29-2024 End: 04-29-2024 Patient encounter procedure 04/29/2024 11:00 AM EDT Office Visit [facility] [address] [place] [address] Sushila Levy, NURSE GENERAL DUTY.PONY RIDE OPERATOR [address] [facility] [place] [address] Nurse William Louisa [facility] [address] [place] [address] SIS [facility] Comment on above: SIS Start: 04-15-2024 End: 04-15-2024 Nursing evaluation of patient and report 04/15/2024 7:45 AM EDT Nurse Visit [facility] [address] [place] [address] William, Nurse Louisa [facility] [address] [place] [address] midcycle ,lab work [facility] Comment on above: 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 ,lab work Start: 03-12-2024 End: 03-12-2024 Patient encounter procedure 03/12/2024 6:00 PM EDT Office Visit [facility] [address] [place] [address] SIS benefit check [facility] Comment on above: SIS benefit check Start: 03-10-2024 End: 03-10-2024 Patient encounter procedure 03/10/2024 6:00 PM EDT Office Visit [facility] [address] [place] [address] Follicle us benefit check [facility] Comment on above: Follicle us benefit check Start: 03-08-2024 End: 03-08-2024 Patient encounter procedure 03/08/2024 2:00 PM EDT Office Visit OB/Gynecology [address] [place] [address] [place] [address] [place], [place] [id number] COLPOSCOPY; Cervical high risk HPV (human papillomavirus) test positive [R87.810] OB/Gynecology Comment on above: COLPOSCOPY; Cervical high risk HPV (fran n papillomavirus) test positive [R87.810] Start: 03-02-2024 End: 03-02-2024 Patient encounter procedure 03/02/2024 9:45 AM EDT Office Visit [facility] [address] [facility] [place] [address] Violeta Esquivel, NURSE GENERAL DUTY-PONY RIDE OPERATOR [address] [facility] [address] [place] [address] [facility] Start: 02-23-2024 End: 02-23-2024 Patient encounter procedure 02/23/2024 3:00 PM EDT Office Visit [facility] [address] [address] [place] [address] [place] [address] Follow up, discuss plans former Althea knox [facility] Comment on above: Follow up, discuss plans former Althea crow t Start: 02-23-2024 End: 05-24-2024 17-Hydroxyprogesterone [Mass/volume] in Serum or Plasma HYDROXYPROGESTERONE-17 Lab Routine Androgen excess Expected: 02/23/2024, Expires: 05/24/2024 [facility] Comment on above: Expected: 02/23/2024, Expires: Start: 02-23-2024 End: 05-24-2024 Progesterone [Mass/volume] in Serum or Plasma PROGESTERONE Lab Routine Androgen excess Expected: 02/23/2024, Expires: 05/24/2024 [facility] Comment on above: Expected: 02/23/2024, Expires: Start: 02-23-2024 End: 05-24-2024 Testosterone [Mass/volume] in Serum or Plasma TESTOSTERONE, TOTAL Lab Routine Androgen excess Expected: 02/23/2024, Expires: 05/24/2024 [facility] Work Phone: Comment on above: Expected: 02/23/2024, Expires: 4 Start: 02-23-2024 End: 05-24-2024 Thyrotropin [Units/volume] in Serum or Plasma THYROID STIMULATING HORMONE Lab Routine Androgen excess Expected: 02/23/2024, Expires: 05/24/2024 [facility] Comment on above: Expected: 02/23/2024, Expires: 4 Start: 02-23-2024 End: 02-22-2025 US Uterus and Fallopian tubes W saline IU SONOHYSTEROGRAPHY (SIS) US WHI Anc Imaging Routine Fertility testing Expected: 02/23/2024, Expires: 02/22/2025 [facility] Comment on above: Expected: 02/23/2024, Expires: 5 Start: 02-05-2024 End: 05-06-2024 Choriogonadotropin.beta subunit [Units/volume] in Serum or Plasma HCG QUANTITATIVE Lab STAT Encounter for fertility testing Expected: 02/05/2024, Expires: 05/06/2024 [facility] Work Phone: Comment on above: Expected: 02/05/2024, Expires: Start: 01-21-2024 End: 01-21-2024 Patient encounter procedure 01/21/2024 8:20 AM EDT Office Visit OB/Gynecology [address] [facility] [place] [address] [place] [address] [place] [address] annual OB/Gynecology Comment on above: annual Start: 01-19-2024 End: 01-19-2024 Patient encounter procedure 01/19/2024 8:30 AM EDT Office Visit [facility] [address] [place] [address] Joan Taylor MD [address] [place] [address] [facility] Start: 12-30-2023 End: 03-30-2024 Choriogonadotropin.beta subunit [Units/volume] in Serum or Plasma HCG QUANTITATIVE Lab STAT Female infertility Expected: 12/30/2023, Expires: 03/30/2024 [facility] Work Phone: Comment on above: Expected: 12/30/2023, Expires: Start: 12-30-2023 End: 03-30-2024 Lutropin [Units/volume] in Serum or Plasma LUTEINIZING HORMONE Lab STAT Female infertility Expected: 12/30/2023, Expires: 03/30/2024 [facility] Work Phone: Comment on above: Expected: 12/30/2023, Expires: Start: 12-30-2023 End: 03-30-2024 Progesterone [Mass/volume] in Serum or Plasma PROGESTERONE Lab STAT Female infertility Expected: 12/30/2023, Expires: 03/30/2024 [facility] Work Phone: Comment on above: Expected: 12/30/2023, Expires: Start: 11-20-2023 End: 11-19-2024 Hemoglobin A1c/Hemoglobin.total in Blood Hemoglobin A1c Lab Routine PCOS (polycystic ovarian syndrome) Hypertriglyceridemia Expected: 11/20/2023, Expires: 11/19/2024 [facility] [employer] Comment on above: Expected: 11/20/2023, Expires: Start: 11-20-2023 End: 11-19-2024 Lipid 1996 panel - Serum or Plasma Lipid profile Lab Routine PCOS (polycystic ovarian syndrome) Hypertriglyceridemia Expected: 11/20/2023, Expires: 11/19/2024 [employer] Work Phone: Comment on above: Expected: 11/20/2023, Expires: Start: 11-05-2023 End: 11-05-2023 ambulatory 11/05/2023 11:00 AM EST Initial [facility] [address] [facility] [address] [place] [phone] Joan Taylor MD [address] [facility] [address] [place] [address] [facility] Start: 11-04-2023 End: 11-03-2024 CBC W Auto Differential panel - Blood CBC auto differential Lab Routine Routine general medical examination at a health care facility Expected: 11/04/2023, Expires: 11/03/2024 [employer] Work Phone: Comment on above: Expected: 11/04/2023, Expires: Start: 11-04-2023 End: 11-03-2024 Comprehensive metabolic 2000 panel - Serum or Plasma Comprehensive metabolic panel Lab Routine Routine general medical examination at a health care facility Expected: 11/04/2023, Expires: 11/03/2024 [facility] Comment on above: Expected: 11/04/2023, Expires: Start: 11-04-2023 End: 11-03-2024 Lipid 1996 panel - Serum or Plasma Lipid profile Lab Routine Routine general medical examination at a health care facility Expected: 11/04/2023, Expires: 11/03/2024 [facility] Comment on above: Expected: 11/04/2023, Expires: Start: 11-04-2023 End: 11-04-2023 Patient encounter procedure 11/04/2023 8:00 AM EST Office Visit [facility] [address] [place] [phone] David Mckeon MD [address] [place] [address] [facility] Start: 11-03-2023 Adult BMI Screening Adult BMI Screening [facility] Start: 11-03-2023 Depression Screening Depression Screening [facility] Start: 11-03-2023 Tobacco Screening Tobacco Screening [facility] Start: 10-22-2023 End: 10-22-2024 OBSTETRIC ULTRASOUND WHI OBSTETRIC ULTRASOUND WHI Anc Imaging Routine Encounter to determine viability of , fetus 1 of multiple gestation Expected: 10/22/2023, Expires: 10/22/2024 [facility] Comment on above: Expected: 10/22/2023, Expires: Start: 10-21-2023 End: 10-21-2023 Professional / ancillary services management 10/21/2023 8:00 AM EST Ancillary Procedure [facility] [address] [place] [address] [facility] Start: 10-16-2023 End: 10-16-2024 Bacteria [...] Start: 09-30-2023 Diagnostic ultrasound of gravid uterus [facility] Start: 09-30-2023 Ultrasonography of bilateral kidneys US renal BI [facility] Start: 09-30-2023 US Kidney - bilateral [facility] Start: 09-30-2023 Transvaginal obstetric ultrasonography [facility] Start: 09-14-2023 Behavioral Health Screening Behavioral Health Screening [facility] Start: 09-14-2023 Depression Assessment Depression Assessment [facility] Start: 09-14-2023 zzBehavioral Health Screening zzBehavioral Health Screening [facility] Start: 05-15-2023 Covid-19 Vaccine () Covid-19 Vaccine () [facility] Start: 05-15-2023 Influenza vaccination [facility] Start: 03-09-2023 End: 05-09-2023 RUBELLA IGG AB RUBELLA IGG AB Lab Routine Immunity to rubella determined by serologic test Expected: 03/09/2023, Expires: 05/09/2023 [facility] Work Phone: Comment on above: Expected: 03/09/2023, Expires: 3 Start: 03-09-2023 End: 05-09-2023 TYPE + SCREEN TYPE + SCREEN Blood Bank Routine Encounter for fertility testing Expected: 03/09/2023, Expires: 05/09/2023 [facility] Work Phone: Comment on above: Expected: 03/09/2023, Expires: 3 Start: 03-09-2023 End: 05-09-2023 VARICELLA ZOSTER IGG VARICELLA ZOSTER IGG Lab Routine Immunity to varicella determined by serologic test Expected: 03/09/2023, Expires: 05/09/2023 [facility] Work Phone: Comment on above: Expected: 03/09/2023, Expires: 3 Start: 12-02-2022 End: 12-03-2023 FOLLICULAR US WHI FOLLICULAR US WHI Anc Imaging Routine Encounter for fertility testing Expected: 12/02/2022, Expires: 12/03/2023 [facility] Work Phone: Comment on above: Expected: 12/02/2022, Expires: 4 Start: 11-07-2022 End: 11-07-2023 FOLLICULAR US WHI FOLLICULAR US WHI Anc Imaging Routine Female infertility Expected: 11/07/2022, Expires: 11/07/2023 [facility] Work Phone: Comment on above: Expected: 11/07/2022, Expires: 4 Start: 10-27-2022 End: 10-27-2023 FOLLICULAR US WHI FOLLICULAR US WHI Anc Imaging Routine Encounter for fertility planning Expected: 10/27/2022, Expires: 10/27/2023 [facility] Work Phone: Comment on above: Expected: 10/27/2022, Expires: 4 Start: 09-29-2022 End: 11-29-2022 Choriogonadotropin.beta subunit [Units/volume] in Serum or Plasma [facility] Work Phone: Comment on above: Expected: 09/29/2022, Expires: 3 Start: 09-29-2022 End: 11-29-2022 Estradiol (E2) [Mass/volume] in Serum or Plasma [facility] Work Phone: Comment on above: Expected: 09/29/2022, Expires: 3 Start: 09-29-2022 End: 11-29-2022 Progesterone [Mass/volume] in Serum or Plasma [facility] Work Phone: Comment on above: Expected: 09/29/2022, Expires: 3 Start: 09-14-2022 DEPRESSION ASSESSMENT DEPRESSION ASSESSMENT [facility] Start: 05-15-2022 Influenza vaccination [facility] Start: 09-14-2021 DEPRESSION ASSESSMENT DEPRESSION ASSESSMENT [facility] Start: 11-17-2015 HPV TESTING HPV TESTING [facility] Start: 11-17-2015 Screening for malignant neoplasm of cervix HPV Testing [facility] Start: 2006 PAP TESTING PAP TESTING [facility] Start: 2006 Screening for malignant neoplasm of cervix [facility] Start: 2004 DTaP,Tdap and Td Vaccines (1 - Tdap) DTaP,Tdap and Td Vaccines (1 - Tdap) [facility] Start: 2004 Hepatitis B Vaccine (1 of 3 - 19+ 3-dose series) Hepatitis B Vaccine (1 of 3 - 19+ 3-dose series) [facility] Start: 2004 Urine microalbumin profile [facility] Start: 11-17-2003 Adult BMI Follow Up Plan Adult BMI Follow Up Plan [facility] Start: 11-17-2003 Annual PCP Team Chronic Disease Visit Annual PCP Team Chronic Disease Visit [facility] Start: 11-17-2003 Anxiety Screening Anxiety Screening [facility] Start: 11-17-2003 BP Controlled (<130/80) BP Controlled (<130/80) [facility] in Start: 11-17-2003 Depression Screening Depression Screening [facility] Start: 11-17-2003 HEPATITIS C SCREENING HEPATITIS C SCREENING [facility] Start: 11-17-2003 Hepatitis C screening Hepatitis C Screening [facility] Start: 11-17-2003 HIV SCREENING HIV SCREENING [facility] Start: 11-17-2003 HIV screening HIV Screening [facility] Start: 1997 Adult depression screening assessment DEPRESSION SCREENING [facility] Start: 1997 COVID-19 VACCINE (1) COVID-19 VACCINE (1) [facility] Start: 11-17-1991 PNEUMOCOCCAL (1 - PCV) PNEUMOCOCCAL (1 - PCV) [facility] Start: 11-17-1991 Pneumococcal vaccination [facility] Start: 05-19-1986 COVID-19 VACCINE (#1) COVID-19 VACCINE (#1) [facility] Start: 1985 HEPATITIS B (1 of 3 - 3-dose series) HEPATITIS B (1 of 3 - 3-dose series) [facility] Start: 1985 Hepatitis B Vaccine (1 of 3 - 3-dose series) Hepatitis B Vaccine (1 of 3 - 3-dose series) [facility] Start: 1985 Tobacco Counseling Tobacco Counseling [facility] ABO/Rh ABO/Rh Lab Routi ne Encounter for supervision of normal first in first trimester Ordered: 10/16/2023 [facility] Work Phone: Comment on above: Ordered: 10/16/2023 Antibody screen Antibody screen Lab Routine Encounter for supervision of normal first in first trimester Ordered: 10/16/2023 [id number] Comment on above: Ordered: 10/16/2023 End: 04-07-2024 Cath & saline/contrast sonohyster/hysterosalpi XR HYSTEROSALPINGOGRAM Radiology Routine Encounter for fertility testing 1 Occurrences starting 03/09/2023 until 04/07/2024 [facility] Work Phone: Comment on above: 1 Occurrences starting 03/09/2023 until 04/07/2024 CBC W Auto Different ial panel - Blood CBC and differential Lab Routine Encounter for supervision of normal first in first trimester Ordered: 10/16/2023 [id number] Comment on above: Ordered: 10/16/2023 Chlamydia trachomatis+Neisseria gonorrhoeae DNA [Presence] in Unspecified specimen by KINDRA with probe detection GONORRHEA/CHLAMYDIA NAAT Lab Routine Exposure to sexually transmitted disease (STD) 01/21/2024 8:48 AM EDT [facility] End: 11-05-2024 Choriogonadotropin.beta subunit [Units/volume] in Serum or Plasma HCG QUANTITATIVE Lab STAT Encounter for test, result positive Daily for 3 Occurrences starting 11/06/2023 until 11/05/2024 [facility] Work Phone: Comment on above: Daily for 3 Occurrences starting 024 until 11/05/2024 End: 12-12-2025 Choriogonadotropin.beta subunit [Units/volume] in Serum or Plasma HCG QUANTITATIVE Lab Routine Encounter for test, result positive 2x per week for 2 Occurrences starting 12/12/2024 until 12/12/2025 [facility] Work Phone: Comment on above: 2x per week for 2 Occurrences starting 0 12/12/2024 until 12/12/2025 Choriogonadotropin.b eta subunit [Units/volume] in Serum or Plasma HCG QUANTITATIVE Lab Routine Encounter for test, result positive 12/12/2024 5:05 PM EDT [facility] End: 09-14-2023 Estradiol (E2) [Mass/volume] in Serum or Plasma ESTRADIOL-17B BLD Lab STAT Encounter for fertility testing 6 Occurrences starting 05/12/2023 until 09/14/2023 [facility] Work Phone: Comment on above: 6 Occurrences starting 05/12/2023 until 09/14/2023 End: 08-17-2024 Estradiol (E2) [Mass/volume] in Serum or Plasma ESTRADIOL-17B BLD Lab STAT Primary female infertility Daily for 5 Occurrences starting 08/18/2023 until 08/17/2024 [facility] Work Phone: Comment on above: Daily for 5 Occurrences starting 023 until 08/17/2024 End: 04-27-2024 Estradiol (E2) [Mass/volume] in Serum or Plasma ESTRADIOL-17B BLD Lab STAT Female infertility 6 Occurrences starting 12/29/2023 until 04/27/2024 [facility] Work Phone: Comment on above: 6 Occurrences starting 12/29/2023 until 04/27/2024 End: 04-13-2024 Estradiol (E2) [Mass/volume] in Serum or Plasma ESTRADIOL-17B BLD Lab STAT Female infertility 6 Occurrences starting 03/09/2024 until 04/13/2024 [facility] Work Phone: Comment on above: 6 Occurrences starting 03/09/2024 until 04/13/2024 End: 07-04-2025 Estradiol (E2) [Mass/volume] in Serum or Plasma ESTRADIOL-17B BLD Lab STAT Female infertility Daily for 4 Occurrences starting 07/04/2024 until 07/04/2025 [facility] Comment on above: Daily for 4 Occurrences starting 024 until 07/04/2025 End: 08-08-2025 Estradiol (E2) [Mass/volume] in Serum or Plasma ESTRADIOL-17B BLD Lab STAT Female infertility Daily for 4 Occurrences starting 08/08/2024 until 08/08/2025 [facility] Comment on above: Daily for 4 Occurrences starting 024 until 08/08/2025 End: 09-09-2025 Estradiol (E2) [Mass/volume] in Serum or Plasma ESTRADIOL-17B BLD Lab STAT Female infertility Daily for 6 Occurrences starting 09/09/2024 until 09/09/2025 [facility] Comment on above: Daily for 6 Occurrences starting 024 until 09/09/2025 End: 10-19-2025 Estradiol (E2) [Mass/volume] in Serum or Plasma ESTRADIOL-17B BLD Lab STAT Female infertility Daily for 3 Occurrences starting 10/19/2024 until 10/19/2025 [facility] Work Phone: Comment on above: Daily for 3 Occurrences starting 025 until 10/19/2025 End: 11-11-2025 Estradiol (E2) [Mass/volume] in Serum or Plasma ESTRADIOL-17B BLD Lab STAT Encounter for fertility testing Daily for 6 Occurrences starting 11/14/2024 until 11/11/2025 [facility] Work Phone: Comment on above: Daily for 6 Occurrences starting 025 until 11/11/2025 End: 09-08-2023 FOLLICULAR US WHI FOLLICULAR US WHI Anc Imaging Routine Encounter for fertility testing Daily for 6 Occurrences starting 05/12/2023 until 09/08/2023 [facility] Work Phone: Comment on above: Daily for 6 Occurrences starting 023 until 09/08/2023 End: 10-08-2023 FOLLICULAR US WHI FOLLICULAR US WHI Anc Imaging Routine Female infertility Daily for 6 Occurrences starting 08/18/2023 until 10/08/2023 [facility] Work Phone: Comment on above: Daily for 6 Occurrences starting 023 until 10/08/2023 End: 04-27-2024 FOLLICULAR US WHI FOLLICULAR US WHI Anc Imaging Routine Female infertility 6 Occurrences starting 12/29/2023 until 04/27/2024 [facility] Work Phone: Comment on above: 6 Occurrences starting 12/29/2023 until 04/27/2024 End: 05-27-2024 FOLLICULAR US WHI FOLLICULAR US WHI Anc Imaging Routine Female infertility 6 Occurrences starting 03/09/2024 until 05/27/2024 [facility] Comment on above: 6 Occurrences starting 03/09/2024 until 05/27/2024 End: 07-04-2025 FOLLICULAR US WHI FOLLICULAR US WHI Anc Imaging Routine Female infertility Daily for 4 Occurrences starting 07/04/2024 until 07/04/2025 [facility] Work Phone: Comment on above: Daily for 4 Occurrences starting 024 until 07/04/2025 End: 03-08-2025 FOLLICULAR US WHI FOLLICULAR US WHI Anc Imaging Routine Female infertility Daily for 4 Occurrences starting 08/08/2024 until 03/08/2025 [facility] Work Phone: Comment on above: Daily for 4 Occurrences starting until 03/08/2025 End: 11-14-2024 FOLLICULAR US WHI FOLLICULAR US WHI Anc Imaging Routine Female infertility Daily for 6 Occurrences starting 09/09/2024 until 11/14/2024 [facility] Comment on above: Daily for 6 Occurrences starting 024 until 11/14/2024 End: 02-14-2025 FOLLICULAR US WHI FOLLICULAR US WHI [facility] Routine Encounter for fertility testing Daily for 6 Occurrences starting 11/14/2024 until 02/14/2025, 1 completed [facility] Comment on above: Daily for 6 Occurrences starting 025 until 02/14/2025, 1 completed Hepatitis B virus surface Ag [Presence] in Serum or Plasma by Immunoassay Hepatitis B surface antigen Lab Routine Encounter for supervision of normal first in first trimester Ordered: 10/16/2023 [facility] Comment on above: Ordered: 10/16/2023 HIV-1/HIV-2 antigen/antibody combination immunoassay HIV-1 and HIV-2 antibodies Lab Routine Encounter for supervision of normal first in first trimester Ordered: 10/16/2023 [facility] Comment on above: Ordered: 10/16/2023 End: 09-09-2025 Lutropin [Units/volume] in Serum or Plasma LUTEINIZING HORMONE Lab STAT Female infertility Daily for 6 Occurrences starting 09/09/2024 until 09/09/2025 [facility] Comment on above: Daily for 6 Occurrences starting 024 until 09/09/2025 OFFICE HYSTEROSCOPY OFFICE HYSTE ROSCOPY Procedures Routine Encounter for fertility testing Ordered: 05/05/2024 [facility] Work Phone: Comment on above: Ordered: 05/05/2024 PAP TEST PAP TEST Lab Shravan ford Encounter for Papanicolaou smear for cervical cancer screening 01/21/2024 8:44 AM EDT [facility] Work Phone: Patient Education Asymptomatic b acteriuria Urinary tract infections in [facility] Work Phone: Patient referral [facility] Work Phone: End: 09-09-2025 Progesterone [Mass/volume] in Serum or Plasma PROGESTERONE Lab STAT Female infertility Daily for 6 Occurrences starting 09/09/2024 until 09/09/2025 [facility] Work Phone: Comment on above: Daily for 6 Occurrences starting 024 until 09/09/2025 End: 12-25-2022 PROGESTERONE BLD PROGESTERONE BLD Lab Routine Problems with ovulation Once per month for 12 Occurrences starting 12/25/2021 until 12/25/2022 [facility] Work Phone: Comment on above: Once per month for 12 Occurrences starti ng 12/25/2021 until 12/25/2022 Reagin Ab [Presence] in Serum by RPR RPR Lab Routine Encounter for supervision of normal first in first trimester Ordered: 10/16/2023 [facility] Comment on above: Ordered: 10/16/2023 Rubella antibody, IgG Rubella an tibody, IgG Lab Routine Encounter for supervision of normal first in first trimester Ordered: 10/16/2023 [facility] Comment on above: Ordered: 10/16/2023 SURGICAL PATHOLOGY SURGICAL PATH OLOGY Lab Routine Endometrial polyp 05/13/2024 12:26 PM EDT [facility] Work Phone: [facility] Immunizations Immunization Date Immunization Notes Care Provider Fa cility 06-02-2020 influenza, injectabl e, quadrivalent, preservative free Eugenia Cerda [facility] 06-02-2020 influenza virus vacc ine, unspecified formulation Arley Parikh MD Work Phone: [facility] 05-29-2020 influenza, injectabl e, quadrivalent, preservative free Eugenia Cerda [facility] 07-27-2018 influenza, injectabl e, quadrivalent, preservative free Eugenia Cerda [facility] 07-24-2009 novel Influenza-H1N1 -09, live virus for nasal administration Eugenia Cerda [facility] Payers Date Payer Category Payer Self-pay [id number] 2019 Commercial Managed C are - [employer] [id number] 2019 Private Health Insurance 1.2 [id number] 2019 Unknown MMO MMO [employer] [id number] 2019-Present [phone] [address] [place] [address] PPO [id number] 2019 Unknown [id number] 1985 Unknown [id number] [id number] .593 1985 Unknown [id number] 2.16.840.1.239863.3.579.2 .593 1985 Unknown [id number] 2.16.840.1.922875.3.579.2 .593 1985 Unknown [id number] 2.16.840.1.905326.3.579.2 .593 1985 Unknown [id number] 2.16840.1.492601.3.579.2 .593 1985 Unknown [id number] 2.16840.1.371846.3.579.2 .1286 1985 Unknown [id number] 2.16840.1.609799.3.579.2 .128 1985 Unknown [id number] 2.16840.1.059828.3.579.2 .1286 1985 Unknown [id number] 2.16840.1.746454.3.579.2 .128 1985 Unknown [id number] 2.16840.1.590114.3.579.2 .1286 1985 Unknown [id number] 2.16840.1.016859.3.579.2 .1286 1985 Unknown [id number] 2.16840.1.314198.3.579.2 .1286 1985 Unknown [id number] 2.16840.1.339941.3.579.2 .1286 1985 Unknown [id number] 2.16.840.1.242494.3.579.2 .1286 1985 Unknown [id number] 2.16840.1.469119.3.579.2 .1259 1959 Unknown [id number] Unknown [id number] [id number] .531 Worker's Compensation [id number] Social History Date Type Detail Facility Start: 10-15-2020 End: 03-09-2023 Tobacco smoking status [facility] Occasional tobacco smoker [facility] End: 09-28-2023 History of tobacco use Cigarette Smoker [facility] Start: 10-15-2020 End: 08-14-2024 Cigarettes smoked current (pack per day) - Reported 1 [facility] Start: 10-15-2020 End: 10-16-2023 Tobacco use and exposure Smokeless tobacco non-user [facility] Start: 10-15-2020 End: 10-05-2023 Alcohol intake Lifetime non-drinker (finding) [facility] Start: 10-15-2020 History SDOH Alcohol Frequency 1 [facility] Start: 1985 Sex Assigned At Female [facility] Start: 10-15-2020 End: 08-14-2024 Alcohol Use Disorder Identification Test - Consumption [AUDIT-C] [facility] How often to you hav e a drink containing alcohol? Never [facility] Average Number of Drinks Not on file [facility] Start: 06-12-2021 Gender identity Identifies as female gender (finding) [facility] Start: 06-12-2021 Sexual orientation Heterosexual (finding) [facility] Start: 10-16-2023 End: 11-25-2024 Tobacco smoking status [facility] Ex-smoker [facility] End: 09-28-2023 History of tobacco use Current smoker [facility] Start: 10-16-2023 End: 01-10-2025 Alcohol intake Ex-drinker (finding) [facility] Start: 10-16-2023 Alcohol Comment Caffeine intake: 8-12oz coffee/day [facility] Start: 08-30-2023 [facility] Start: 1985 Sex Assigned At Not on file [facility] Start: 10-07-2024 End: 12-06-2024 Alcoholic beverage intake Current non-drinker of alcohol (finding) [facility] Start: 04-19-2015 End: 01-25-2025 Sex Female (finding) [facility] Start: 05-02-2022 Tobacco smoking status NHIS Smokes tobacco daily [facility] Goals Date Patient Goal Desired Activity /State Personal health goal Clinical Notes 12-25-2021 to 01-16-2025 Telephone Encounter - Geni Pena - 01/16/2025 2:26 PM EDTTelephone Encounter - Geniyannick Rose - 01/16/2025 2:26 PM EDSushila De Santiago APRN.PONY RIDE OPERATOR - 01/09/2025 3:43 PM EDT Note Date [...] scheduled, I can be called back At [id number] am currently available until about 230 and then I have a meeting then until about 330. So I look forward to hearing back if you can again my numbers [phone]. Thanks and have a good day. [facility] 01-16-2025 Miscellaneous Notes Hi there. [...] scheduled, I can be called back At [phone] am currently available until about 230 and then I have a meeting then until about 330. So I look forward to hearing back if you can again my numbers [phone]. Thanks and have a good day. documented in this encounter [facility] 01-09-2025 Note HNO ID: [id number] Author: SUSHILA LEVY APRN.ADELE Service: ? Author Type: Nurse Practitioner Type: Progress Notes Filed: 01/09/2025 16:05 Note Text: Spoke with Aleida, Reviewed diagnosis of missed from today's ultrasound. Discussed options for medical, surgical or expectant management. Leaning towards medical management but wants to further review with her prior to making final decisions. Is meeting with her PHOTOGRAPHIC EQUIPMENT ASSEMBLER tomorrow, may follow up with care from that office as well. Will call back and let us know how she wishes to proceed. Sushila Levy APRN.CNP January 09, 2025 4:05 PM [facility] 01-09-2025 History of Presen t illness Narrative Spoke with Aleida, Reviewed diagnosis of missed from today's ultrasound. Discussed options for medical, surgical or expectant management. Leaning towards medical management but wants to further review with her prior to making final decisions. Is meeting with her PHOTOGRAPHIC EQUIPMENT ASSEMBLER tomorrow, may follow up with care from that office as well. Will call back and let us know how she wishes to proceed. Sushila Levy APRN.CNP January 09, 2025 4:05 PM documented in this encounter [facility] 12-30-2024 Note HNO ID: [id number] Author: HEENA ORR APRN.CNP Service: ? Author Type: Nurse Practitioner Type: Progress Notes Filed: 12/30/2024 17:37 Note Text: spoke with Aleida Please schedule the patient for the following- Location: [place] Provider: nurse Visit type: scan Reason for visit/appointment notes: scan Date: 01/09 Time (requested): 1040 If slot is full, please schedule the closest open slot. Call to patient needed: no [facility] 12-30-2024 History of Presen t illness Narrative spoke with Aleida Please schedule the patient for the following- Location: [place] Provider: nurse Visit type: scan Reason for [...] 2024 1:32 PM documented in this encounter [facility] 12-30-2024 Note HNO ID: [id number] Author: MICHEL JOSEPH MD Service: ? Author [...] Joseph MD December 30, 2024 1:32 PM [facility] 12-16-2024 Note HNO ID: [id number] Author: KOBI WEINER PA-C Service: ? Author Type: Physician Account Manager Trainee Type: Progress Notes Filed: 12/16/2024 14:20 Note Text: [facility] New SERVICE DATE: 12/16/2024 SERVICE TIME: 2:00 PM NAME: Aleida Arizmendi VIRTUAL VISIT PROGRESS NOTE This is a virtual visit. It required patient-provider interaction for the medical decision making as documented below. Patient name and birthday verified: Yes Location of patient: [place] Persons Present: patient I have communicated my name and active licensure. The patient's identity and physical location were verified at the time of this visit. Either the patient or their legal sales solutions representative has been informed of the risks [...] grammatical and typographical errors missed in proofreading. [facility] 12-16-2024 History of Presen t illness Narrative Images from the original note were not included. [facility] New SERVICE DATE: 12/16/2024 SERVICE TIME: 2:00 PM NAME: Aleida Arizmendi VIRTUAL VISIT PROGRESS NOTE This is a virtual visit. It required patient-provider interaction for the medical decision making as documented below. Patient name and birthday verified: Yes Location of patient: [place] Persons Present: patient I have communicated my name and active licensure. The patient's identity and physical location were verified at the time of this visit. Either the patient or their legal sales solutions representative has been informed of the risks [...] missed in proofreading. documented in this encounter [facility] 12-12-2024 Telephone encounter Note Patient called back in still trying to get blood work scheduled she is very frustrated that she isn't getting a call back. [facility] 12-12-2024 Miscellaneous Notes Patient called back in [...] two times a day. Follitropin Ila ([facility] REDI-JECT) 300/0.5 unit/mL pnij Inject 75 Units [...] get bloodwork done. documented in this encounter [facility] 12-12-2024 Telephone encounter Note See other TE for 12/09 Amarilis Dorman RN December 12, 2024 9:41 AM [facility] 12-12-2024 Miscellaneous Notes See other TE for 12/09 Amarilis Dorman RN December 12, 2024 9:41 AM Patient calling back with +hpt everyday since , please call patient. So Pt and wants a call back please documented in this encounter [facility] 12-12-2024 Telephone encounter Note Patient with positive [...] Dorman RN December 12, 2024 9:[address] [facility] 12-12-2024 Telephone encounter Note Patient calling back with +hpt everyday since , please call patient. [facility] Work Phone: 12-09-2024 Telephone encounter Note So Pt and wants a call back please [facility] 12-09-2024 Telephone encounter Note Please follow up with patient she would like to get bloodwork done. [facility] Work Phone: 12-06-2024 History of Presen t [...] up p.r.n.. Inclusion cyst [L72.0] LYUDMILA PADGETT [facility] [place] This note was created with the assistance of a speech recognition program. While intending to generate a timely document that accurately reflects the content of the visit, no guarantee can be provided that every grammatical or spelling mistake has been or will be identified or corrected. Thank you for your understanding. LYUDMILA Padgett 12/06/24 1015 documented in this encounter [facility] 11-25-2024 Evaluation note Diagnosis Onset Date Resolution Visit for wound check acute November 25, 2024 4:52pm [facility] Work Phone: [phone] 758-175503-14-2025 Miscellaneous Notes* Telephone Encounter - Idalmis Arias RN - 11/25/2024 2:53 PM EDT Return call. Patient wanted clarification on what day to start progesterone suppositories. Patient will start them 11/28 at bedtime. Idalmis Arias RN November 25, 2024 2:53 PM * Telephone Encounter - Ana Sotomayor - 11/25/2024 2:24 PM EDT Pt has a questions about her progesterone shots [facility] Telephone encounter Note * Telephone Encounter - Idalmis Arias RN - 11/25/2024 2:53 PM EDT Return call. Patient wanted clarification on what day to start progesterone suppositories. Patient will start them 11/28 at bedtime. Idalmis Arias RN November 25, 2024 2:53 PM [facility]03-14-2025 Telephone encounter Note* Telephone Encounter - Ana Sotomayor - 11/25/2024 2:24 PM EDT Pt has a questions about her progesterone shots [facility]03-14-2025 NoteHNO ID: [id number] Author: NILTON ZHANG RN Service: ? Author Type: Registered Nurse Type: Progress Notes Filed: 11/25/2024 13:18 Note Text: RN called patient,no answer, left VM. Plan given for trigger and TI cycle per physician,via [employer] message sent with instructions. Nilton Zhang RN November 25, 2024 1:16 [facility]03-14-2025 History of Present illness Narrative* Nilton Zhang RN - 11/25/2024 1:16 PM EDT RN called patient,no answer, left VM. Plan given for trigger and TI cycle per physician,via [employer] sent with instructions. Nilton Zhang RN November [...] 25, 2024 9:25 AM [facility]25 NoteHNO ID: [id number] Author: NILTON ZHANG RN Service: ? Author [...] Nilton Zhang RN November 25, 2024 9:25 [facility]03-13-2025 History of Present illness Narrative* Jazmine Gonzalez MD - 11/24/2024 11:33 AM EDT LOUISA Attending Physician Note: Ultrasound and lab results reviewed. Based on review of ultrasound and lab results, medication doseand follow up date plans provided. See cycle flowsheet for dosing details. Jazmine Gonzalez MD, CROW * Mary Ann Kirkland RN - 11/24/2024 [...] to scheduling pool for next appt. Location: [place] Visit type: Baseline SO us/e2 Date: 11/25 @ 0700 LAUREN Haque RN November 24, 2024 12:39 PM documented in this encounterOhiohealth Southeastern Medical Center03-13-2025 NoteHNO ID: [id number] Author: JAZMINE GONZALEZ MD Service: ? Author Type: Physician Type: Progress Notes Filed: 11/24/2024 11:34 Note Text: LOUISA Attending Physician Note: Ultrasound and lab results reviewed. Based on review of ultrasound and lab results, medication dose and follow up date plans provided. See cycle flowsheet for dosing details. Jazmine Gonzalez MD, [facility]03-13-2025 NoteHNO ID: [id number] Author: MARY ANN KIRKLAND RN Service: ? [...] cycle per physician, see flowsheet for details. News in Shortshart message sent. Medications reviewed and verified, instructions given. Patient denies any questions or concerns. Message sent to scheduling pool for next appt. Location: [place] Visit type: Baseline SO us/e2 Date: 11/25 @ 0700 LAUREN Haque RN November 24, 2024 12:39 [facility]03-11-2025 History of Present illness Narrative* Millie Ellis [...] patient/family/caregiver Referring and communicating with other health clinical manager home care Millie Ellis MD [facility] [place] documented in this encounterFort Hamilton HospitalOyaGen [facility] [id number] NoteHNO ID: [id number] Author: MARY ANN KIRKLAND RN Service: ? [...] hasn't tried that yet. Message sent to [facility]. Mary Ann Kirkland RN RN called patient, [...] Ann Kirkland RN November 21, 2024 2:24 [facility]03-10-2025 History of Present illness Narrative* Mary Ann [...] to scheduling pool for next appt. Location: [place] Visit type: Monitoring, SO us/e2 Date: 11/24 @ 0740 am Mary Ann Kirkland RN November 21, 2024 2:24 PM documented in this encounterOhiohealth Southeastern Medical Center03-03-2025 Telephone encounter Note * Telephone Encounter - Mary Ann Kirkland RN - 11/14/2024 3:21 PM EST Automatic PA started when medication ordered. PA closed: : Drug is covered by current benefit plan. No further PA activity needed Pt called stating she needs a PA. Called [facility] to discuss the PA message I received. Still showing on [facility] that a PA is needed. Started cover my meds. Ayala: [id number] Drug is covered by current benefit plan. [...] Kirkland RN November 15, 2024 3:06 PM [facility]03-03-2025 Miscellaneous Notes* Telephone Encounter - Mary Ann Kirkland RN - 11/14/2024 3:21 PM EST Automatic PA started when medication ordered. PA closed: : Drug is covered by current benefit plan. No further PA activity needed Pt called stating she needs a PA. Called [facility] to discuss the PA message I received. Still showing on [facility]'s end that a PA is needed. Started cover my meds. Ayala: [id number] Drug is covered by current benefit plan. [...] the medication by today documented in this encounterOhiohealth Southeastern Medical Center03-03-2025 Telephone encounter Note * Telephone Encounter - Ana Sotomayor - 11/14/2024 2:54 PM EST Pt states her letrozole needs a pa and needs the medication by today [facility]03-03-2025 NoteHNO ID: [id number] Author: MARY ANN KIRKLAND RN Service: ? Author Type: Registered Nurse Type: Progress Notes Filed: 11/14/2024 14:01 Note Text: Aleida Arizmendi was here today for a baseline scan. [place] Visit type: monitoring OI, us/e2 Date: 11/21 [...] cycle per physician, see flowsheet for details. News in Shortshart message sent. Medications reviewed and verified, instructions given. Patient denies any questions or concerns. Message sent to scheduling pool for next appt. Mary Ann Kirkland RN November 14, 2024 2:00 [facility]03-03-2025 History of Present illness Narrative* Mary Ann Kirkland RN - 11/14/2024 1:50 PM EST Aleida Michaelhal was here today for a baseline scan. [place] Visit type: monitoring OI, us/e2 Date: 11/21 [...] IVF cycle per physician, see flowsheet fordetails. News in Shortshart message sent. Medications reviewed and verified, instructions given. Patient denies any questions or concerns. Message sent to scheduling pool for next appt. Mary Ann Kirkland RN November 14, 2024 2:00 PM documented in this encounterOhiohealth Southeastern Medical Center03-03-2025 Telephone encounter Note * Telephone Encounter - [...] once daily. Authorizing Provider: LEONEL CABEZAS APRN.CNP [facility]03-03-2025 Miscellaneous Notes* Telephone Encounter - Leonel Cabezas [...] for baseline for 11/14/24 @ 0740 at [place]. Pt. States she needs refill on letrozole and trigger shot. Medication orders pended. Nilton Zhang RN November 11, 2024 8:32 AM * Telephone Encounter - Sushila Barbour - 11/11/2024 8:05 AM EST Super ov Patient started period- calling to schedule baseline documented in this encounterOhiohealth Southeastern Medical Center02-28-2025 Telephone encounter Note * Telephone Encounter - Nilton Zhang RN - 11/11/2024 8:28 AM EST Returned call to patient. Scheduled for baseline for 11/14/24 @ 0740 at [place]. Pt. States she needs refill on letrozole and trigger shot. Medication orders pended. Nilton Zhang RN November 11, 2024 8:32 AM [facility]02-28-2025 Telephone encounter Note* Telephone Encounter - Sushila Barbour - 11/11/2024 8:05 AM EST Super ov Patient started period- calling to schedule baseline [facility]02-25-2025 History of Present illness Narrative* David Mckeon MD - 11/08/2024 8:00 AM EST Images from the original note were not included. [address] [id number] Subjective: Aleida Arizmendi is a [...] cyst - [facility] - [place], [place]; Future PCOS (polycystic ovarian syndrome) Other [...] and general surgery referral documented in this encounterAvita Health System02-12-2025 NoteHNO ID: [id number] Author: MICHEL JOSEPH MD Service: ? Author [...] plan back to Dr Parikh. Michel Joseph, [facility]02-09-2025 NoteHNO ID: [id number] Author: IVY GARDNER RN Service: ? Author [...] Ivy Gardner RN October 23, 2024 11:51 [facility]02-09-2025 History of Present illness Narrative* Ivy [...] 23, 2024 11:51 AM documented in this encounterOhiohealth Southeastern Medical Center02-07-2025 NoteHNO ID: [id number] Author: IDALMIS ARIAS RN Service: ? Author [...] Idalmis Arias RN October 21, 2024 12:55 [facility]02-07-2025 History of Present illness Narrative* Idalmis Arias [...] 21, 2024 12:55 PM documented in this encounterOhiohealth Southeastern Medical Center02-05-2025 NoteHNO ID: [id number] Author: IDALMIS ARIAS RN Service: ? Author [...] Idalmis Arias RN October 19, 2024 1:27 [facility]02-05-2025 History of Present illness Narrative* Idalmis Arias [...] 19, 2024 1:27 PM documented in this encounterOhiohealth Southeastern Medical Center01-29-2025 NoteHNO ID: [id number] Author: MARY ANN KIRKLAND RN Service: ? [...] Ann Kirkland RN October 12, 2024 2:36 [facility]29[facility] History of Present illness Narrative* Mary [...] IVF cycle per physician, see flowsheet fordetails. News in Shortshart message sent. Medications reviewed and verified, instructions given. Patient denies any questions or concerns. Message sent to scheduling pool for next appt. Mary Ann Kirkland RN October 12, 2024 2:36 PM documented in this encounterOhiohealth Southeastern Medical Center01-27-2025 Telephone encounter Note * Telephone Encounter - Mary Ann Kirkland RN - 10/10/2024 3:45 PM EST Returned patient. Today is cycle day 2. Needs to baseline for SO. Episode for SO #10 created. Per EGR 09/21/24 For SO, same protocol as the last cycle (SO#9) Location: [place] Visit type: Baseline, SO us/e2 Date: 10/12 @ 0720 Mary Ann Kirkland RN October 10, 2024 3:50 PM [facility]01-27-2025 Miscellaneous Notes* Telephone Encounter - Mary Ann Kirkland RN - 10/10/2024 3:45 PM EST Returned patient. Today is cycle day 2. Needs to baseline for SO. Episode for SO #10 created. Per EGR 09/21/24 For SO, same protocol as the last cycle (SO#9) Location: [place] Visit type: Baseline, SO us/e2 Date: 10/12 @ 0720 Mary Ann Kirkland RN October 10, 2024 3:50 PM * Telephone Encounter - Greer Horton - 10/10/2024 12:37 PM EST Needs to schedule so us documented in this encounterOhiohealth Southeastern Medical Center01-27-2025 Telephone encounter Note * Telephone Encounter - Greer Horton - 10/10/2024 12:37 PM EST Needs to schedule so us [facility]01-24-2025 History of Present illness Narrative* David Mckeon MD - 10/07/2024 10:30 AM EST Images from the original note were not included. [address] [facility] [id number] SUBJECTIVE: Patient ID: Aleida Arizmendi [...] xanaflex (if not ) documented in this encounterAvita Health System01-08-2025 Progress note* Michel Joseph MD - 09/21/2024 1:32 PM EST [facility] Date: 09/21/2024 Aleida Arizmendi is a 38 year old female presenting with the following history: HISTORY OF PRESENT ILLNESS: Aleiad Arizmendi is a 38 year old female [...] which included preparing to see the patient, [id number] patient care, completing clinical documentation, counseling and educating the patient/family/caregiver, and ordering medications, tests, or procedures. Michel Joseph MD [facility]01-08-2025 Consult note* Michel Joseph MD - 09/21/2024 1:32 PM EST [facility] Date: 09/21/2024 Aleida Arizmendi is [...] which included preparing to see the patient, [id number] patient care, completing clinical documentation, counseling and educating the patient/family/caregiver, and ordering medications, tests, or procedures. Michel Joseph MD documented in this encounterOhiohealth Southeastern Medical Center01-08-2025 Plan of care note* LOUISA Plan Note [...] partner had another semen analysis done at [facility] in 2015 in addition to another one here in 2022. She reports they were normal, however she is uncertain whether she has access to these records and she will try to obtain them. [facility] Work Phone: [phone]) 357-428701-08-2025 Miscellaneous Notes* LOUISA Plan Note - [place] [...] partner had another semen analysis done at [facility] in 2015 in addition to another one here in 2022. She reports they were normal, however she is uncertain whether she has access to these records and she will try to obtain them. documented in this encounterOhiohealth Southeastern Medical Center01-07-2025 NoteHNO ID: [id number] Author: MICHEL JOSEPH MD Service: ? Author [...] Michel Joseph MD September 20, 2024 12:59 [facility]01-07-2025 History of Present illness Narrative* Michel Joseph [...] plan provided to patient via a Fertility service member. María Elena Butt MD * Mary [...] cycle per physician, see flowsheet for details. News in Shortshart message sent. Medications reviewed and verified, instructions given. Patient deniesany questions or concerns. Message sent to scheduling pool for next appt. Mary Ann Kirkland RN September 20, 2024 3:16 PM documented in this encounterOhiohealth Southeastern Medical Center01-07-2025 NoteHNO ID: [id number] Author: ZHEN SEARS MD Service: ? Author [...] plan provided to patient via a Fertility service member. María Elena Butt, [facility]01-07-2025 NoteHNO ID: [id number] Author: MARY ANN KIRKLAND RN Service: ? [...] cycle per physician, see flowsheet for details. News in Shortshart message sent. Medications reviewed and verified, instructions given. Patient denies any questions or concerns. Message sent to scheduling pool for next appt. Mary Ann Kirkland RN September 20, 2024 3:16 [facility]01-06-2025 NoteHNO ID: [id number] Author: MARY ANN KIRKLAND RN Service: ? [...] Unable to reach patient by phone, sent [employer] message with instructions. Location: [place] Visit type: Monitoring, SO us/e2 Date: 09/20 @ 920am Mary Ann Kirkland RN September 19, 2024 2:21 [facility]01-06-2025 History of Present illness Narrative* Mary Ann [...] Unable to reach patient by phone, sent [employer] message with instructions. Location: [place] Visit type: Monitoring, SO us/e2 Date: 09/20 @ 920am Mary Ann Kirkland RN September 19, 2024 2:21 PM documented in this encounterOhiohealth Southeastern Medical Center01-02-2025 NoteHNO ID: [id number] Author: MARY ANN KIRKLAND RN Service: ? [...] cycle per physician, see flowsheet for details. News in Shortshart message sent. Medications reviewed and verified, instructions given. Patient denies any questions or concerns. Message sent to scheduling pool for next appt. Mary Ann Kirkland RN September 15, 2024 2:09 [facility]01-02-2025 History of Present illness Narrative* Mary Ann [...] 15, 2024 2:09 PM documented in this encounterOhiohealth Southeastern Medical Center12-30-2024 NoteHNO ID: [id number] Author: MARY ANN KIRKLAND RN Service: ? [...] Ann Kirkland RN September 12, 2024 4:12 [facility]12-30-2024 History of Present illness Narrative* Mary Ann Kirkland RN - 09/12/2024 4:04 PM EST RN called patient, name and verified. Plan given for SO cycle per physician, see flowsheet for details. News in Shortshart message sent. Medications reviewed and verified, instructions [...] patient. Idalmis Arias RN documented in this encounterOhiohealth Southeastern Medical Center12-30-2024 NoteHNO ID: [id number] Author: IDALMIS ARIAS RN Service: ? Author Type: Registered Nurse Type: Progress Notes Filed: 09/12/2024 16:13 Note Text: The patient is here today for follicular ultrasound and blood work. The patient reports no problems or complaints. Ultrasound and blood will be reviewed by the physician, the flow sheet will be updated and instructions will be communicated to the patient. [facility]mis [facility]as [facility]12-[facility] Telephone encounter Note * Telephone Encounter - Ivy Gardner RN - 09/09/2024 9:02 AM EST Pt calling to schedule baseline for SO cycle. Ok to start per EGR. Baseline scheduled 09/12 at 7 [place]. Ivy Gardner RN September 09, 2024 9:03 AM [facility]12-27-[facility]24 Miscellaneous Notes* Telephone Encounter - Ivy Gardner RN - 09/09/2024 9:02 AM EST Pt calling to schedule baseline for SO cycle. Ok to start per EGR. Baseline scheduled 09/12 at 7 [place]. Ivy Gardner RN September 09, 2024 9:03 AM * Telephone Encounter - Yancy Fajardo - 09/09/2024 8:12 AM EST OOT til Thursday documented in this encounterOhiohealth Southeastern Medical Center12-27-2024 Telephone encounter Note * Telephone Encounter - Yancy Fajardo - 09/09/2024 8:12 AM EST OOT til Thursday [facility]12-04-2024 NoteHNO ID: [id number] Author: IDALMIS ARIAS RN Service: ? Author [...] Idalmis Arias RN August 17, 2024 1:57 [facility]12-[facility]-2024 History of Present illness Narrative* Idalmis [...] 17, 2024 1:57 PM documented in this encounterOhiohealth Southeastern Medical Center12-02-2024 NoteHNO ID: [id number] Author: IDALMIS ARIAS RN Service: ? Author [...] Idalmis Arias RN August 15, 2024 1:39 [facility]12-02-2024 History of Present illness Narrative* Idalmis Arias [...] 15, 2024 1:39 PM documented in this encounterOhiohealth Southeastern Medical Center11-27-2024 NoteHNO ID: [id number] Author: NILTON ZHANG RN Service: ? Author Type: Registered Nurse Type: Progress Notes Filed: 08/10/2024 13:19 Note Text: RN called patient, name and verified. Plan given for superov cycle per physician, see flowsheet for details. News in Shortshart message sent. Medications reviewed and verified, instructions given. Patient denies any questions or concerns. Message sent to scheduling pool for next appt. Nilton Zhang RN August 10, 2024 1:19 [facility]11-27-2024 NoteHNO ID: [id number] Author: NILTON ZHANG RN Service: ? Author [...] Nilton Zhang RN August 10, 2024 8:02 [facility]11-27-2024 History of Present illness Narrative* Nilton [...] 10, 2024 8:02 AM documented in this encounterOhiohealth Southeastern Medical Center11-25-2024 Telephone encounter Note * Telephone Encounter - [...] RN August 09, 2024 12:48 PM . [facility]11-25-2024 Miscellaneous Notes* Telephone Encounter - Mary Ann [...] 2024 12:48 PM . documented in this encounterOhiohealth Southeastern Medical Center11-04-2024 NoteHNO ID: [id number] Author: IDALMIS ARIAS RN Service: ? Author [...] Idalmis Arias RN July 18, 2024 1:25 [facility]11-04-2024 History of Present illness Narrative* Idalmis Arias [...] IVF cycle per physician, see flowsheet fordetails. News in Shortshart message sent. Medications reviewed and verified, instructions given. Patient denies any questions or concerns. Message sent to scheduling pool for next appt. Idalmis Arias RN July 18, 2024 1:25 PM documented in this encounterOhiohealth Southeastern Medical Center10-31-2024 NoteHNO ID: [id number] Author: GEE DEVRIES RN Service: ? Author Type: Registered Nurse Type: Progress Notes Filed: 07/14/2024 13:56 Note Text: RN called patient, name and verified. Plan given for IVF cycle per physician, see flowsheet for details. News in Shortshart message sent. Medications reviewed and verified, instructions given. Patient denies any questions or concerns. Message sent to scheduling pool for next appt. Please schedule the patient for the following- Location: [place] Visit type: monitoring us / e2 / Date: 07/18 @7am Gee Devries RN July 14, 2024 1:50 [facility]10-31-2024 History of Present illness Narrative* Gee Devries RN - 07/14/2024 1:50 PM EDT RN called patient, name and verified. Plan given for IVF cycle per physician, see flowsheet fordetails. MyChart message sent. Medications reviewed and verified, instructions given. Patient denies any questions or concerns. Message sent to scheduling pool for next appt. Please schedule the patient for the following- Location: [place] Visit type: monitoring us / e2 / [...] patient. Ivy Gardner RN documented in this encounterOhiohealth Southeastern Medical Center10-31-2024 NoteHNO ID: [id number] Author: IVY GARDNER RN Service: ? Author Type: Registered Nurse Type: Progress Notes Filed: 07/14/2024 12:36 Note Text: The patient is here today for follicular ultrasound and blood work. The patient reports no problems or complaints. Ultrasound and blood will be reviewed by the physician, the flow sheet will be updated and instructions will be communicated to the patient. Ivy Gardner [facility]NSamar[facility]10-24-2024 NoteHNO ID: [id number] Author: NILTON ZHANG RN Service: ? Author Type: Registered Nurse Type: Progress Notes Filed: 07/07/2024 13:31 Note Text: RN called patient, name and verified. Plan given for IVF cycle per physician, see flowsheet for details. News in Shortshart message sent. Medications reviewed and verified, instructions given. Patient denies any questions or concerns. Message sent to scheduling pool for next appt. Nilton Zhang RN July 07, 2024 1:31 [facility]10-24-2024 History of Present illness Narrative* Nilton Zhang [...] 07, 2024 7:34 AM documented in this [facility]10-24-2024 NoteHNO ID: [id number] Author: NILTON ZHANG RN Service: ? Author [...] Nilton Zhang RN July 07, 2024 7:34 [facility]10-23-2024 History of Present illness Narrative* David Mckeon MD - 07/06/2024 9:45 AM EDT Images from the original note were not included. [address] [place] [id number] SUBJECTIVE: Patient ID: Aleida Arizmendi is a [...] Off work 3 days documented in this encounterCopley HospitalEncirq Corporation10-21-2024 Telephone encounter Note* Telephone Encounter - Mary [...] discussed last cycle, listed above Sent to Notehall. Location: [place] Visit type: SO baseline Date: 07/07/24 @ 0730 Mary Ann Kirkland RN July 04, 2024 2:18 PM [facility]10-21-2024 Miscellaneous Notes* Telephone Encounter - Mary Ann [...] discussed last cycle, listed above Sent to Notehall. Location: [place] Visit type: SO baseline Date: 07/07/24 @ 0730 Mary Ann Kirkland RN July 04, 2024 2:18 PM * Telephone Encounter - Sushila Barbour - 07/04/2024 10:48 AM EDT Super Ovulation Patient started period Thursday and following up on next steps documented in this encounterOhiohealth Southeastern Medical Center10-21-2024 Telephone encounter Note * Telephone Encounter - Sushila Barbour - 07/04/2024 10:48 AM EDT Super Ovulation Patient started period Thursday and following up on next steps [facility]10-02-2024 NoteHNO ID: [id number] Author: NILTON ZHANG RN Service: ? Author Type: Registered Nurse Type: Progress Notes Filed: 06/15/2024 13:02 Note Text: RN called patient, name and verified. Plan given for IVF cycle per physician, see flowsheet for details. News in Shortshart message sent. Medications reviewed and verified, instructions given. Patient denies any questions or concerns. Message sent to scheduling pool for next appt. Nilton Zhang RN June 15, 2024 1:02 [facility]10-02-2024 History of Present illness Narrative* Nilton Zhang RN - 06/15/2024 1:01 PM EDT RN called patient, name and verified. Plan given for IVF cycle per physician, see flowsheet fordetails. News in Shortshart message sent. Medications reviewed and verified, instructions [...] 15, 2024 8:21 AM documented in this [facility]10-02-2024 NoteHNO ID: [id number] Author: NILTON ZHANG RN Service: ? Author [...] Nilton Zhang RN June 15, 2024 8:21 [facility]09-30-2024 NoteHNO ID: [id number] Author: MARY ANN KIRKLAND RN Service: ? [...] cycle per physician, see flowsheet for details. News in Shortshart message sent. Medications reviewed and verified, instructions given. Patient denies any questions or concerns. Message sent to scheduling pool for next appt. Location: [place] Visit type: IVF us/e2/p4/lh Date: 06/15 Mary Ann Kirkland RN June 13, 2024 12:44 [facility]09[facility] History of Present illness Narrative* Mary [...] IVF cycle per physician, see flowsheet fordetails. News in Shortshart message sent. Medications reviewed and verified, instructions given. Patient denies any questions or concerns. Message sent to scheduling pool for next appt. Location: [place] Visit type: IVF us/e2/p4/lh Date: 06/15 Mary Ann Kirkland RN June 13, 2024 12:44 PM documented in this encounterOhiohealth Southeastern Medical Center09-27-2024 Note* Addendum Note - Michel Joseph MD - 06/10/2024 1:33 PM EDTAddended by: MICHEL JOSEPH on: 06/10/2024 01:33 PM Modules accepted: Orders [facility]09-27-2024 Miscellaneous Notes* Addendum Note - Michel Joseph MD - 06/10/2024 1:33 PM EDTAddended by: MICHEL JOSEPH on: 06/10/2024 01:33 PM Modules accepted: Orders * Addendum Note - Nilton Zhang RN - 06/10/2024 1:29 PM EDTAddended by: NILTON ZHANG on: 06/10/2024 01:29 PM Modules accepted: Orders documented in this encounterOhiohealth Southeastern Medical Center09-27-2024 Note* Addendum Note - Nilton Zhang RN - 06/10/2024 1:29 PM EDTAddended by: NILTON ZHANG on: 06/10/2024 01:29 PM Modules accepted: Orders [facility]09-27-2024 NoteHNO ID: [id number] Author: NILTON ZHANG RN Service: ? Author [...] Nilton Zhang RN June 10, 2024 1:25 [facility]09-27-2024 History of Present illness Narrative* Nilton Zhang [...] 10, 2024 7:09 AM documented in this encounterOhiohealth Southeastern Medical Center09-27-2024 NoteHNO ID: [id number] Author: NILTON ZHANG RN Service: ? Author Type: Registered Nurse Type: Progress Notes Filed: 06/10/2024 12:58 Note Text: RN called patient, name and verified. Plan given for IVF cycle per physician, see flowsheet for details. News in Shortshart message sent. Medications reviewed and verified, instructions given. Patient denies any questions or concerns. Message sent to scheduling pool for next appt. Nilton Zhang RN June 10, 2024 12:58 [facility]09-27-2024 NoteHNO ID: [id number] Author: JAZMINE GONZALEZ MD Service: ? Author Type: Physician Type: Progress Notes Filed: 06/10/2024 12:58 Note Text: LOUISA Attending Physician Note: Ultrasound and lab results reviewed. Based on review of ultrasound and lab results, medication dose and follow up date plans provided. See cycle flowsheet for dosing details. Jazmine Gonzalez MD, [facility]09-27-2024 NoteHNO ID: [id number] Author: GEE DEVRIES RN Service: ? Author [...] Gee Devries RN June 10, 2024 7:09 [facility]09-23-2024 NoteHNO ID: [id number] Author: MARY ANN KIRKLAND RN Service: ? Author Type: Registered Nurse Type: Progress Notes Filed: 06/06/2024 15:03 Note Text: RN called patient, name and verified. Plan given for IVF cycle per physician, see flowsheet for details. News in Shortshart message sent. Medications reviewed and verified, instructions given. Patient denies any questions or concerns. Message sent to scheduling [place] for next appt. Location: [place] Visit type: so us/e2 Date: 06/10 @ 7am Mary Ann Kirkland RN June 06, 2024 3:02 [facility]09-23-2024 History of Present illness Narrative* Mary Ann Kirkland RN - 06/06/2024 3:02 PM EDT RN called patient, name and verified. Plan given for IVF cycle per physician, see flowsheet fordetails. MyChart message sent. Medications reviewed and verified, instructions given. Patient denies any questions or concerns. Message sent to scheduling [place] for next appt. Location: [place] Visit type: so us/e2 Date: 06/10 @ [...] patient. Gee Devries RN documented in this encounterOhio[facility]09-23-2024 NoteHNO ID: [id number] Author: GEE DEVRIES RN Service: ? Author Type: Registered Nurse Type: Progress Notes Filed: 06/06/2024 15:03 Note Text: The patient is here today for follicular ultrasound and blood work. The patient reports no problems or complaints. Ultrasound and blood will be reviewed by the physician, the flow sheet will be updated and instructions will be communicated to the patient. [facility] NoteHNO ID: [id number] Author: NILTON ZHANG RN Service: ? Author Type: Registered Nurse Type: Progress Notes Filed: 06/03/2024 12:50 Note Text: RN called patient, name and verified. Plan given for IVF cycle per physician, see flowsheet for details. [employer] message sent. Medications reviewed and verified, instructions given. Patient denies any questions or concerns. Message sent to scheduling pool for next appt. Nilton Zhang RN June 03, 2024 12:50 [facility]09-20-2024 History of Present illness Narrative* Nilton Zhang RN - 06/03/2024 12:50 PM EDT RN called patient, name and verified. Plan given for IVF cycle per physician, see flowsheet fordetails. News in Shortshart message sent. Medications reviewed and verified, instructions [...] 03, 2024 7:03 AM documented in this encounterOhiohealth [facility] Center09-20-2024 NoteHNO ID: [id number] Author: NILTON ZHANG RN Service: ? Author [...] Nilton Zhang RN June 03, 2024 7:03 [facility]09-13-2024 NoteHNO ID: [id number] Author: NILTON ZHANG RN Service: ? Author Type: Registered Nurse Type: Progress Notes Filed: 05/27/2024 13:06 Note Text: RN called patient, name and verified. Plan given for ISuper Ov cycle per physician, see flowsheet for details. [employer] message sent. Medications reviewed and verified, instructions given. Patient denies any questions or concerns. Message sent to scheduling pool for next appt. Nilton Zhang RN May 27, 2024 1:06 [facility]09-13-2024 History of Present illness Narrative* Nilton Zahng RN - 05/27/2024 1:06 PM EDT RN [...] 27, 2024 7:02 AM documented in this encounterOhiohealth [facility] Center09-13-2024 NoteHNO ID: [id number] Author: JAZMINE GONZALEZ MD Service: ? Author Type: Physician Type: Progress Notes Filed: 05/27/2024 13:07 Note Text: LOUISA Attending Physician Note: Ultrasound and lab results reviewed. Based on review of ultrasound and lab results, medication dose and follow up date plans provided. See cycle flowsheet for dosing details. Jazmine Gonzalez MD, [facility]24 NoteHNO ID: [id number] Author: NILTON ZHANG RN Service: ? Author [...] Nilton Zhang RN May 27, 2024 7:02 [facility]09-10-2024 Plan of care note * LOUISA [...] Count Sperm M 365.50 % Motile Sperm (%FL + %FELT PULLER) >=40 % 76 Forward Progression 3 = [...] follow up with me. Michel Joseph MD [facility]09-10-2024 Miscellaneous Notes* LOUISA Plan Note - Michel [...] Count Sperm M 365.50 % Motile Sperm (%FL + %FELT PULLER) >=40 % 76 Forward Progression 3 = [...] me. Michel Joseph MD documented in this encounterOhiohealth Southeastern Medical Center08-30-2024 NoteHNO ID: [id number] Author: MICHEL JOSEPH MD Service: ? Author [...] Follow up endometrial biopsy results Michel Joseph [facility]08-30-2024 Procedure note* Michel Joseph MD - 05/13/2024 [...] up endometrial biopsy results Michel Joseph MD [facility]08-30-2024 Procedure note* Michel Joseph MD - 05/13/2024 [...] results Michel Joseph MD documented in this encounterOhiohealth Southeastern Medical Center08-22-2024 Telephone encounter Note * Telephone Encounter - Nilton Zhang RN - 05/05/2024 4:11 PM EDT Financial approved not received yet for Rigid Hysteroscopy. Mychart sent to patient. Nilton Zhang RN May 05, 2024 4:12 PM [facility]08-22-2024 Miscellaneous Notes* Telephone Encounter - Nilton Zhang [...] 05, 2024 12:13 PM documented in this encounterOhiohealth [facility] Center08-22-2024 Telephone encounter Note * Telephone Encounter - [...] Zhang RN May 05, 2024 1:32 PM [facility]08-[facility] Telephone encounter Note* Telephone Encounter - Nilton Zhang RN - 05/05/2024 12:12 PM EDT Called patient. No answer. Left VM. Nilton Zhang RN May 05, 2024 12:13 PM [facility]08-21-2024 Telephone encounter Note* Telephone Encounter - Nilton Zhang RN - 05/04/2024 3:52 PM EDT Awaiting response from Dr. Joseph regarding plan for patient folloowing SIS last week. Mychart sent to patient. Nilton Zhang RN May 04, 2024 3:52 PM [facility]08-21-2024 Miscellaneous Notes* Telephone Encounter - Nilton Zhang [...] pt ultrasound last week documented in this encounterOhiohealth Southeastern Medical Center08-21-2024 Telephone encounter Note * Telephone Encounter - Nilton Zhang RN - 05/04/2024 3:51 PM EDT Message sent to Dr. Joseph for plan for patient following her SIS last week. Nilton Zhang RN May 04, 2024 3:51 PM [facility]08-21-2024 Miscellaneous Notes* Telephone Encounter - Nilton Zhang RN - 05/04/2024 3:51 PM EDT Message sent to Dr. Joseph for plan for patient following her SIS last week. Nilton Zhang RN May 04, 2024 3:51 PM * Telephone Encounter - Ana Sotomayor - 05/03/2024 11:28 AM EDT Pt would like to discuss plans , pt had sis 16 documented in this encounterOhiohealth Southeastern Medical Center08-21-2024 Telephone encounter Note * Telephone Encounter - Sushila Barbour - 05/04/2024 9:20 AM EDT Patient hasn't received call discussing next steps after pt ultrasound last week [facility]08-20-[facility] Telephone encounter Note* Telephone Encounter - kristianAna - 05/03/2024 11:28 AM EDT Pt would like to discuss plans , pt had sis 04/29 [facility]08-16-20[facility] Note Indication SIS, Evaluation of infertility Impression [...] Betancourt RDMS Read By: Michel Joseph M.D.MATERNAL [id number] NoteHNO ID: [id number] Author: SUSHILA LEVY APRN.PONY RIDE OPERATOR Service: ? Author Type: Nurse Practitioner Type: Procedures Filed: 04/29/2024 12:08 Note Text: Aleida Arizmendi is a 38 year old here for SIS. Referred by: Michel Joseph [id number] [id number] Chief Complaint: irregular bleeding Endometrial Biopsy: No [...] Care Visit completed when applicable. Sushila Levy APRN.PONY RIDE OPERATOR PROCEDURE: EXTERNAL GENITALIA: Normal in appearance without [...] See ViewPoint for procedure results. Sushila Levy APRN.CNPSamaritan Hospital08-16-2024 Procedure note* Sushila Levy APRN.PONY RIDE OPERATOR - 04/29/2024 12:01 PM EDT Aleida Arizmendi is a 38 year old here for SIS. Referred by: Michel Joseph [id number] [id number] Chief Complaint: irregular bleeding Endometrial Biopsy: No [...] ViewPoint for procedure results. Sushila Levy APRN.CNP [facility]08-16-2024 Procedure note* Sushila Levy APRN.CNP - 04/29/2024 12:01 PM EDT Aleida Arizmendi is a 38 year old here for SIS. Referred by: Michel Joseph [id number] [id number] Chief Complaint: irregular bleeding Endometrial Biopsy: No [...] results. Sushila Levy APRN.ADELE documented in this encounterOhiohealth Southeastern Medical Center08-02-2024 NoteHNO ID: [id number] Author: JAZMINE GONZALEZ MD Service: ? Author [...] after a withdrawal bleed. Jazmine Gonzalez MD, [facility]08-02-2024 History of Present illness Narrative* Jazmine [...] 15, 2024 10:05 AM documented in this encounterOhiohealth Southeastern Medical Center08-02-2024 NoteHNO ID: [id number] Author: NILTON ZHANG RN Service: ? Author [...] Nilton Zhang RN April 15, 2024 10:05 [facility]07-26-2024 Telephone encounter Note* Telephone Encounter - [...] Hennessy RN April 08, 2024 8:39 AM [facility]07-26-2024 Miscellaneous Notes* Telephone Encounter - Ar Hennessy RN - 04/08/2024 8:38 AM EDT Call to pt at cell number listed Pt states that she had blood drawn locally since she is on vacation and call about results. Reviewed we have not received them yet but will keep a look out. Pt states she has the results and [facility] Pt verbalized understanding Ar Hennessy RN April 08, 2024 8:39 AM * Telephone Encounter - Greer Horton - 04/07/2024 11:32 AM EDT Pt has ques on getting her labs done in [place] will they be stat documented in this encounterOhiohealth [facility] Medical Center07-25-2024 Telephone encounter Note * Telephone Encounter - Greer Horton - 04/07/2024 11:32 AM EDT Pt has ques on getting her labs done in [place] will they be stat [facility]07-25-2024 Telephone encounter Note* Telephone Encounter - Nilton Zhang RN - 04/07/2024 10:15 AM EDT Letter with lab orders faxed to [phone] in [place]. Nilton Zhang RN April 07, 2024 10:16 AM [facility]07-25-2024 Miscellaneous Notes* Telephone Encounter - Nilton Zhang RN - 04/07/2024 10:15 AM EDT Letter with lab orders faxed to [phone] in [place]. Nilton Zhang RN April 07, 2024 10:16 AM documented in this encounterOhiohealth Southeastern Medical Center07-25-2024 NoteHNO ID: [id number] Author: NILTON ZHANG RN Service: ? Author [...] Nilton Zhang RN April 07, 2024 10:06 [facility]07-23-2024 NoteHNO ID: [id number] Author: NILTON ZHANG RN Service: ? Author [...] Nilton Zhang RN April 05, 2024 4:39 [facility]07-23-2024 History of Present illness Narrative* Nilton Zhang [...] 05, 2024 9:31 AM documented in this encounterOhiohealth Southeastern [facility] Center07-23-2024 NoteHNO ID: [id number] Author: NILTON ZHANG RN Service: ? Author Type: Registered Nurse Type: Progress Notes Filed: 04/05/2024 16:08 Note Text: Progesterone and Hcg level from 04/04/[address] Joseph for review. Latest Ref Rng 04/04/2024 Progesterone See comment ng/mL 0.3 hCG Quantitative, Blood <5.0 mIU/mL <0.6 Nilton Zhang RN April 05, 2024 9:31 [facility]07-19-2024 NoteHNO ID: [id number] Author: NILTON ZHANG RN Service: ? Author [...] Nilton Zhang RN April 01, 2024 3:52 [facility]07-18-2024 Telephone encounter Note* Telephone Encounter - Nilton [...] Zhang RN March 31, 2024 2:50 PM [facility]07-18-2024 Miscellaneous Notes* Telephone Encounter - Nilton Zhang [...] provera still no cycle documented in this encounterOhiohealth Southeastern Medical Center07-18-2024 Telephone encounter Note * Telephone Encounter - Ana Sotomayor - 03/31/2024 11:27 AM EDT Pt returning call [facility]07-17-2024 Telephone encounter Note* Telephone Encounter - Ana Sotomayor - 03/30/2024 1:18 PM EDT Pt would like to know her next steps? Has taken provera still no cycle [facility]07-10-2024 Telephone encounter Note* Telephone Encounter - Goyo Vides RN - 03/23/2024 10:44 AM EDT Called pt by listed phone number. See phone encounter from 03/23/24. Goyo Vides RN March 23, 2024 10:45 AM [facility]07-10-2024 Miscellaneous Notes* Telephone Encounter - Goyo Vides RN - 03/23/2024 10:44 AM EDT Called pt by listed phone number. See phone encounter from 03/23/24. Goyo Vides RN March 23, 2024 10:45 AM documented in this encounterOhiohealth Southeastern Medical Center07-10-2024 Telephone encounter Note * Telephone Encounter - [...] Vides RN March 23, 2024 8:59 AM [facility]07-10-2024 Miscellaneous Notes* Telephone Encounter - Goyo Vides [...] answer with no response documented in this encounterOhiohealth Southeastern Medical Center07-09-2024 Telephone encounter Note * Telephone Encounter - Goyo Vides RN - 03/22/2024 2:30 PM EDT Message resent to Dr Joseph. Awaiting answer to give pt. Goyo Vides RN March 22, 2024 2:30 PM [facility]07-09-2024 Telephone encounter Note* Telephone Encounter - Ana Sotomayor - 03/22/2024 1:29 PM EDT Pt had sis done and states they found some scar tissue in the findings. Pt would like to know if she needs to stop her meds? Or go through surgery? Pt states she has tried for 3 weeks to get an answer with no response [facility]06-26-2024 Telephone encounter Note* Telephone Encounter - Goyo [...] Vides RN March 09, 2024 11:11 AM [facility]06-26-2024 Miscellaneous Notes* Telephone Encounter - Goyo Vides [...] didn't start her provera documented in this encounterOhiohealth Southeastern Medical Center06-26-2024 Telephone encounter Note * Telephone Encounter - Greer Horton - 03/09/2024 10:33 AM EDT Pt didn't start her provera [facility]06-26-2024 Telephone encounter Note* Telephone Encounter - Goyo [...] Vides RN March 09, 2024 9:59 AM [facility]06-26-20[facility] Miscellaneous Notes* Telephone Encounter - Goyo Vides [...] period coming and going documented in this encounterOhiohealth Southeastern Medical Center06-25-2024 Telephone encounter Note * Telephone Encounter - Rukhsana Dennis - 03/08/2024 3:22 PM EDT Cycle just lasted 1 day, brown then and pink yesterday very light. Should she take provera or should she count this as her cycle for super ov cycle, please follow up with patient. [facility] Work Phone: 1(581) 550-876006-25-2024 Pepe Scott MD 03/08/2024 2:27 PM COLPOSCOPY PROCEDURE Date/Time: 03/08/2024 2:25 PM Performed by: Pepe Pope MD Authorized by: Pepe Pope MD Indication: HPV + Diagnosis: (R87.810) Cervical high risk HPV (human papillomavirus) test positive (primary encounter diagnosis) Patient's last menstrual period was 08/16/2023 (approximate). Informed Consent Consent Obtained: Written [place] Protocol SIGN IN Patient/Surrogate Stated/Verified: Patient name, Date of , Relevant allergies and Intended procedure TIME OUT Intended patient and procedure match the source document(s). Consent documented and matches the intended procedure. Relevant labs, photos, and/or imaging studies have been reviewed. Pre-Procedure Details: Pre-meds: None Local anesthetic: None Procedure Details: Procedure: Colposcopy of Vagina including Cervix [place] speculum was placed in the vagina. Acetic [...] applicable Comments: Note patient quit smoking in October.[facility]06-25-2024 NoteHNO ID: [id number] Author: PPEE POPE MD Service: ? Author Type: Physician Type: Procedures Filed: 03/08/2024 14:27 Note Text: COLPOSCOPY PROCEDURE Date/Time: 03/08/2024 2:25 PM Performed by: Pepe Pope MD Authorized by: Pepe Pope MD Indication: HPV + Diagnosis: (R87.810) Cervical high risk HPV (human papillomavirus) test positive (primary encounter diagnosis) Patient's last menstrual period was 08/16/2023 (approximate). Informed Consent Consent Obtained: Written [place] Protocol SIGN IN Patient/Surrogate Stated/Verified: Patient name, Date of , Relevant allergies and Intended procedure TIME OUT Intended patient and procedure match the source document(s). Consent documented and matches the intended procedure. Relevant labs, photos, and/or imaging studies have been reviewed. Pre-Procedure Details: Pre-meds: None Local anesthetic: None Procedure Details: Procedure: Colposcopy of Vagina including Cervix [place] speculum was placed in the vagina. Acetic [...] patient quit smoking in October. Pepe Pope, [facility]06-25-2024 Procedure note* Pepe Pope MD - 03/08/2024 [...] 08/16/2023 (approximate). Informed Consent Consent Obtained: Written [place] Protocol SIGN IN Patient/Surrogate Stated/Verified: Patient name, Date of , Relevant allergies and Intended procedure TIME OUT Intended patient and procedure match the source document(s). Consent documented and matches the intended procedure. Relevant labs, photos, and/or imaging studies have been reviewed. Pre-Procedure Details: Pre-meds: None Local anesthetic: None Procedure Details: Procedure: Colposcopy of Vagina including Cervix [place] speculum was placed in the vagina. Acetic [...] quit smoking in October. Pepe Pope MD [facility] Work Phone: 1(249) 954-989006-25-2024 Procedure note* Pepe Pope MD - 03/08/2024 [...] 08/16/2023 (approximate). Informed Consent Consent Obtained: Written [place] Protocol SIGN IN Patient/Surrogate Stated/Verified: Patient name, Date of , Relevant allergies and Intended procedure TIME OUT Intended patient and procedure match the source document(s). Consent documented and matches the intended procedure. Relevant labs, photos, and/or imaging studies have been reviewed. Pre-Procedure Details: Pre-meds: None Local anesthetic: None Procedure Details: Procedure: Colposcopy of Vagina including Cervix [place] speculum was placed in the vagina. Acetic [...] October. Pepe Pope MD documented in this encounterOhiohealth Southeastern Medical Center06-25-2024 Instructions* Patient Instructions* Pepe Pope MD - 03/08/2024 1:53 PM EDT documented in this encounterOhiohealth Southeastern Medical Center06-24-2024 Telephone encounter Note * Telephone Encounter - Greer Horton - 03/07/2024 12:12 PM EDT Pt wants to discuss her period coming and going [facility]06-19-2024 History of Present illness Narrative* Violeta Esquivel [...] sleepiness while driving. Supplemental O2 use: none [place] Sleepiness Scale: Sitting and Reading: (!) Moderate [...] auto CPAP 5-20 cm of water DME: [employer] Data card was not available for PAP usage data download. Impression: Aleida was seen today for sleep apnea. 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 Above [...] that have escaped final proofreading. Violeta Esquivel [facility] Office: [phone] 4:36 PM on 03/02/2024 CC: MD Violeta Aguilar APRN-CNP 03/02/24 1636 documented in this encounterAvita [facility] System06-19-2024 Instructions* Patient Instructions* LYUDMILA Quezada - 03/02/2024 9:45 AM EDT If you re looking for general health and wellness resources, please visit [email or web address]. documented in this encounterAvita Health System06-12-2024 Plan of care note * [...] have included some information about IVF below. [facility]06-12-[facility]24 Miscellaneous Notes* LOUISA Plan Note - Michel [...] information about IVF below. documented in this encounterOhiohealth Southeastern Medical Center06-11-2024 Instructions* Patient Instructions* Michel Joseph MD - [...] pricing and financing. Please call the office [phone] to set up an appointment if you [...] freezer. Success rates based on age (from [facility] website, [facility] data = Clinic ; accessed 03/05/23): While [...] until 8-10 weeks of documented in this encounterOhiohealth Southeastern Medical Center06-11-2024 NoteHNO ID: [id number] Author: MICHEL JOSEPH MD Service: ? Author Type: Physician Type: Progress Notes Filed: 02/24/2024 11:33 Note Text: REPRODUCTIVE ENDOCRINOLOGY AND INFERTILITY RETURN PATIENT CLINIC NOTE SERVICE DATE: 02/23/2024 SERVICE TIME: 3:33 PM NAME: Aleida Arizmendi FERTILITY HISTORY 38yo [id number] with PCOS, BMI 44.77 Note copied from [...] plan and assessment as noted. Michel Joseph [facility]06-11-2024 History of Present illness Narrative* Michel Joseph MD - 02/23/2024 3:33 PM EDT Images from the original note were not included. REPRODUCTIVE ENDOCRINOLOGY AND INFERTILITY RETURN PATIENT CLINIC NOTE SERVICE DATE: 02/23/2024 SERVICE TIME: 3:33 PM NAME: Aleida Arizmendi FERTILITY HISTORY 38yo [id number] with PCOS, BMI 44.77 Note copied from [...] HYDROXYPROGESTERONE-17 (Z31.41) Fertility testing Plan: SONOHYSTEROGRAPHY (SIS) [facility] Extensive counseling today as I assume care [...] noted. Michel Joseph MD documented in this encounterOhiohealth Southeastern Medical Center06-03-2024 Telephone encounter Note * Telephone Encounter - Roxanna May - 02/15/2024 12:46 PM EDT Did call patient and LVM. Also sent patient a MyChart message. Postponing to ensure scheduling. [facility]06-03-2024 Miscellaneous Notes* Telephone Encounter - Roxanna May [...] EDT ----- Needs colposcopy documented in this encounterOhiohealth Southeastern Medical Center06-03-2024 Telephone encounter Note * Telephone Encounter - Kylee Cunha RN - 02/15/2024 12:15 PM EDT please assist w appt for colposcopy. [facility]06-03-2024 Telephone encounter Note* Telephone Encounter - Pepe Pope MD - 02/15/2024 8:57 AM EDT We can numb the area [facility] Work Phone: [phone]) 511-436905-31-2024 Telephone encounter Note* Telephone Encounter - Kylee [...] have this done in [facility]. Please advise. [facility]05-31-[facility] Telephone encounter Note* Telephone Encounter - Kylee Cunha RN - 02/12/2024 4:15 PM EDT ----- Message from Pepe Pope MD sent at 02/08/2024 4:34 PM EDT ----- Needs colposcopy [facility]05-24-20[facility] Telephone encounter Note* Telephone Encounter - Idalmis Arias RN - 02/05/2024 3:23 PM EDT Called patient to report negative HCG level. Patient expressed frustration with needing another consult after just meeting with Dr. Menchaca. Responded with heart and listened to patient frustration. She is agreeable to wait. Idalmis Arias RN February 05, 2024 3:32 PM [facility]05-24-2024 Miscellaneous Notes* Telephone Encounter - Idalmis Arias [...] has gotten no response documented in this encounterOhiohealth Southeastern Medical Center05-24-2024 Telephone encounter Note * Telephone Encounter - Ivy Gardner RN - 02/05/2024 10:01 AM EDT Pt requesting a blood hcg level, since full flow has not started, and she has only had some brown spotting. SO cycle Trigger/TI 01/10/,01/11,01/12. Pt said HPT was negative, and was questioning implantation bleeding . Hcg order placed. Ivy Gardner RN February 05, 2024 10:04 AM [facility]05-24-2024 Telephone encounter Note* Telephone Encounter - Yancy Fajardo - 02/05/2024 9:03 AM EDT Patient states she called Thursday and has gotten no response [facility]05-20-2024 Telephone encounter Note* Telephone Encounter - Ivy [...] Gardner RN February 01, 2024 3:04 PM [facility]05-20-2024 Miscellaneous Notes* Telephone Encounter - Ivy Gardner [...] back, started yesterday morning. documented in this encounterOhiohealth Southeastern Medical Center05-20-2024 Telephone encounter Note * Telephone Encounter - Khurram Zendejas RN - 02/01/2024 11:54 AM EDT Called the patient she verified her name and date of Patient did super ovulation no period not sure what to do Khurram Zendejas RN February 01, 2024 11:55 AM [facility]05-20-2024 Telephone encounter Note* Telephone Encounter - Rukhsana Dennis - 02/01/2024 11:29 AM EDT Unsure about cycle and has pressure but not cramping requests call back, started yesterday morning. [facility] Work Phone: 1(127) 264-159405-09-2024 NoteHNO ID: [id number] Author: PEPE POPE MD Service: ? Author [...] L0 SAB0 IAB1 Ectopic0 Multiple0 Live Births0 Travel Manager History LMP: 08/16/2023 (Approximate), Having periods Age at Menarche: Age at First : Age at Menopause: Travel Manager History Comments: Sexual Activity: Yes; Male Contraception: [...] external genitalia normal, normal Bartholin's glands, urethra, [place]'s glands, no vulvar lesions, no cervical lesions, [...] year or sooner as needed Pepe Pope, [facility]05-09-2024 History of Present illness Narrative* Pepe Pope [...] L0 SAB0 IAB1 Ectopic0 Multiple0 Live Births0 Travel Manager History LMP: 08/16/2023 (Approximate), Having periods Age at Menarche: Age at First : Age at Menopause: Travel Manager History Comments: Sexual Activity: Yes; Male Contraception: [...] external genitalia normal, normal Bartholin's glands, urethra, [place]'s glands, no vulvar lesions, no cervical lesions, [...] needed Pepe Pope MD documented in this encounterOhiohealth [facility]heastern [facility] Center04-29-2024 History of Present illness Narrative* Ivy Gardner [...] 11, 2024 1:45 PM documented in this encounterOhiohealth [facility]heastern [facility] Center04-26-2024 History of Present illness Narrative* Nilton Zhang [...] 08, 2024 7:21 AM documented in this encounterOhiohealth Southeastern Medical Center04-19-2024 Miscellaneous Notes* Telephone Encounter - Nena Childs MD - 01/01/2024 5:25 PM EDT Telephone Encounter Received page asking for call back. Called patient. Confirmed patient's name and date of overthe phone. Aleida Arizmendi is a 38 year old female undergoing SO # 5. Received call from [facility] as they had received prescription for Gonal-F and don't carry that medication and wanted to know if they could switch to Follistim. I confirmed that they could switch to Follistim for this patient. Nena Childs MD PGY-5 Reproductive Endocrinology and Infertility Fellow documented in this encounterOhiohealth Southeastern Medical Center04-19-2024 History of Present illness Narrative* Nilton Zhang [...] 01, 2024 7:39 AM documented in this encounterOhiohealth Southeastern Medical Center04-16-2024 Miscellaneous Notes* Telephone Encounter - Amarilis Dorman [...] 2:40 PM * Telephone Encounter - Greer Horotn - 12/28/2023 9:50 AM EDT Pt ret call pls leave message on her my chart with her plan * Telephone Encounter - Amarilis Dorman, RN - 12/28/2023 9:37 AM EDT Attempted to call patient. Left message for patient to call the office. Amarilis Dorman RN December 28, 2023 9:38 AM * Telephone Encounter - Sushila Babrour - 12/25/2023 11:07 AM EDT Ivf Patient has not gotten period after taking medication documented in this encounterOhiohealth Southeastern Medical Center04-13-2024 Miscellaneous Notes* Telephone Encounter - Zahra Snyder - 12/26/2023 10:25 AM EDT Patient called office and l/m on v/m. Office returned call patient has spam block on phone. Office call could not go through, office tried 3x documented in this encounterAv[facility]04-13-2024 Telephone encounter Note* Telephone Encounter - Zahra Snyder - 12/26/2023 10:25 AM EDT Patient called office and l/m on v/m. Office returned call patient has spam block on phone. Office call could not go through, office tried 3x [facility]04-10-2024 Miscellaneous Notes* Telephone Encounter - Zhane Oliver - 12/23/2023 10:08 AM EDT Patient called office and l/m on v/m. Office returned call and l/m on v/m documented in this encounterCopley HospitalEncirq Corporation04-10-2024 Telephone encounter Note* Telephone Encounter - Zhane Oliver - 12/23/2023 10:08 AM EDT Patient called office and l/m on v/m. Office returned call and l/m on v/m [facility]24 NoteHNO ID: [id number] Author: DMITRY MENCHACA MD Service: ? Author [...] Either the patient or their legal sales solutions representative has been informed of the risks [...] 1 2014 REMOVAL GALLBLADDER 2017 OB History: HIDE CURER History: Menarche: 14 Cycle Length: 35-40 Irregular [...] two times a day. Follitropin Ila (GONAL-F [facility] REDI-JECT) 300/0.5 unit/mL pnij Inject 75 Units [...] see the patient, kimberli (more content not included)...[facility]03-08-2024 History of Present illness Narrative* David Mckeon MD - 11/20/2023 8:00 AM EST Images from the original note were not included. [address] [address] SUBJECTIVE: Patient ID: Aleida Arizmendi [...] indicated for Nutrition referral documented in this encounterFort Hamilton HospitalOyaGen [facility] Genesys [id number] NoteHNO ID: [id number] Author: KOBI WEINER PA-C Service: ? Author Type: Physician Account Manager Trainee Type: Progress Notes Filed: 11/13/2023 13:50 Note Text: VIRTUAL VISIT PROGRESS NOTE This is a virtual visit. It required patient-provider interaction for the medical decision making as documented below. Patient name and birthday verified: Yes Location of patient: [place] Persons Present: patient I have communicated my name and active licensure. The patient's identity and physical location were verified at the time of this visit. Either the patient or their legal sales solutions representative has been informed of the risks and benefits of -- and alternatives to -- treatment through a remote evaluation and consents to proceed with the evaluation remotely. HIDE CURER POSTOP PROGRESS NOTE SERVICE DATE: 11/13/2023 SERVICE [...] reported), and communicating results to the patient/family/caregiver. [facility]03-01-2024 History of Present illness Narrative* Kobi Weiner PA-C - 11/13/2023 1:30 PM EST VIRTUAL VISIT PROGRESS NOTE This is a virtual visit. It required patient-provider interaction for the medical decision making as documented below. Patient name and birthday verified: Yes Location of patient: [place] Persons Present: patient I have communicated my name and active licensure. The patient's identity and physical location wereverified at the time of this visit. Either the patient or their legal sales solutions representative has been informed of the risks and benefits of -- and alternatives to -- treatment through a remote evaluation andconsents to proceed with the evaluation remotely. HIDE CURER POSTOP PROGRESS NOTE SERVICE DATE: 11/13/2023 SERVICE [...] results to the patient/family/caregiver. documented in this encounterOhiohealth Southeastern Medical Center02-23-2024 Miscellaneous Notes* Telephone Encounter - Idalmis Arias RN - 11/06/2023 10:22 AM EST Called patient regarding mychart. Need to follow HCG down post D&C. Letter sent for patient to get at [facility] tomorrow. Also placed standing orders. On televisit for Thursday 11/09 to review and follow up with patient. Idalmis Arias RN November 06, 2023 10:22 AM * Telephone Encounter - Kobi Weiner PA-C - 11/06/2023 10:19 AM EST S/p D&C 10/30 ASSESSMENT/PLAN: hCG weekly, till <5 Pt has a letter order in the chart. Faxing it to [facility] as well. Kobi Weiner PA-C November 06, 2023 10:32 AM documented in this encounterOhiohealth Southeastern Medical Center02-21-2024 History of Present illness Narrative* David Mckeon MD - 11/04/2023 8:00 AM EST Images from the original note were not included. [address] [place] [address] Subjective: Aleida Arizmendi is a 37 [...] PA encouraged Labs ordered documented in this encounterAvita Health System02-16-2024 NoteHNO ID: [id number] Author: RU COOPER RN Service: ? Author Type: Registered Nurse Type: Nursing Progress Note Filed: 10/30/2023 14:12 Note Text: Patient dressed [facility]02-16-2024 NoteHNO ID: [id number] Author: DORIE BURKETT APRN.TACK COVERER Service: Anesthesiology Author Type: Nurse President [place] Type: Anesthesia Procedure Notes Filed: 10/30/2023 12:07 Note Text: ANESTHESIOLOGY PROCEDURE NOTE Airway General Information Procedure Start Time/Medication Administration: 10/30/2023 12:00 PM Patient location during procedure: OR Timeout Performed Pre-procedure: timeout performed Consent Obtained: Yes Patient identity confirmed: arm band Staffing Anesthesiologist: Jagdeep Cordova MD TACK COVERER: Dorie Burkett APRN.TACK COVERER Performed by: anesthesiologist Indications and Patient Condition Indications for airway management: anesthesia and airway protection Preoxygenated: yes anesthesia circuit Patient position: sniffing Method: asleep Difficult Mask: No Final Airway Details Final airway type: supraglottic airway Number of attempts at approach: 1 Ventilation between attempts: BVM Final Supraglottic Airway: i-gel Size 4 Seal Adequate: yes Airway not difficult SIGNATURE: Dorie Burkett APRN.TACK COVERER PATIENT NAME: Aleida Arizmendi DATE: October 30, 2023 TIME: 12:06 PM CSN: [id number] Maine Health Care02-15-2024 Miscellaneous Notes* Telephone Encounter - Smiley Viramontes - 10/29/2023 4:32 PM EST Called patient left message to confirm surgery time documented in this encounterOhiohealth Southeastern Medical Center02-09-2024 Miscellaneous Notes* Telephone Encounter - Jennifer Guevara RN - 10/23/2023 10:[address] Griffiths requested to notify LOUISA of pt loss confirmed via OB US today 10/23 Called LOUISA, notified nurse of pt loss. Jennifer Guevara RN documented in this encounterOhiohealth Southeastern Medical Center02-08-2024 Miscellaneous Notes* Addendum Note - Armin Hernandez RN - 10/22/2023 11:18 AM ESTAddended by: ARMIN HERNANDEZ on: 10/22/2023 11:18 AM Modules accepted: Orders documented in this encounterOhiohealth Southeastern Medical Center02-02-2024 History of Present illness Narrative* Dorie Acosta [...] on 11/0510/16/2023 11:02 AM documented in this encounterJohn J. Pershing VA Medical CenterMhtblzqteb38-52-3228 NoteHNO ID: [id number] Author: KOBI WEINER PA-C Service: ? Author Type: Physician Account Manager Trainee Type: Progress Notes Filed: 09/18/2023 14:54 Note Text: REPRODUCTIVE ENDOCRINOLOGY AND INFERTILITY New SERVICE DATE: 09/18/2023 SERVICE TIME: 11:00 AM NAME: Aleida Arizmendi VIRTUAL VISIT PROGRESS NOTE This is a virtual visit. It required patient-provider interaction for the medical decision making as documented below. Patient name and birthday verified: Yes Location of patient: [place] Persons Present: patient I have communicated my name and active licensure. The patient's identity and physical location were verified at the time of this visit. Either the patient or their legal sales solutions representative has been informed of the risks [...] be grammatical and typographical errors missed in proofreading.[facility]01-02-2024 Miscellaneous Notes* Telephone Encounter - Eugenia Cerda [...] advising of DTD recommendation. documented in this encounterAvita Health System01-02-2024 Telephone encounter Note* Telephone Encounter - Eugenia Cerda CMA - 09/15/2023 11:29 AM EST Patient recently found out she is , asking if she should continue taking her medications. Please advise [facility] echoecho [id number] Telephone encounter Note* Telephone Encounter - David Mckeon MD - 09/15/2023 11:29 AM EST Would stop all rx meds until reevaluated by obgyn [facility] echoecho [id number] Telephone encounter Note* Telephone Encounter - Eugenia Cerda CMA - 09/15/2023 11:29 AM EST Left message for patient advising of DTD recommendation. [facility] SouthHungama Digital Media Entertainment Pvt[employer] [id number] History of Present illness Narrative* Mary Ann [...] IVF cycle per physician, see flowsheet fordetails. [employer] message sent. Medications reviewed and verified, instructions given. Patient denies any questions or concerns. Message sent to scheduling pool for next appt. Location: [place] Visit type: SO IVF us/e2 Date: 08/28/23 @ 0700 Mary Ann Kirkland RN August 25, 2023 1:57 PM documented in this encounterOhiohealth Southeastern Medical Center12-06-2023 History of Present illness Narrative* Nilton Zhang RN - 08/19/2023 1:58 PM EST RN called patient, name and verified. Plan given for IVF cycle per physician, see flowsheet fordetails. [employer] message sent. Medications reviewed and verified, instructions given. Patient denies any questions or concerns. Message sent to scheduling pool for next appt. Nilton Zhang RN August 19, 2023 1:58 PM * Nilton Zhang RN - 08/19/2023 7:35 AM EST The patient is here today for follicular ultrasound and blood work. The patient reports no problemsor complaints. Ultrasound and blood will be reviewed by the physician, the flow sheet will be updated and instructions will be communicated to the patient. Nilton Zhang RN August 19, 2023 7:36 AM documented in this encounterOhiohealth Southeastern Medical Center12-04-2023 Miscellaneous Notes* Telephone Encounter - Mary Ann Kirkland RN - 08/17/2023 4:34 PM EST Unable to reach patient by phone, left message to return my call. Need plan from SB and message sent to [facility] for SO with TIC. Plan to bring [...] schedule her baseline US documented in this encounterOhiohealth Southeastern Medical Center11-28-2023 Instructions* Patient Instructions* Otilia Camp MD - 08/11/2023 2:21 PM EST Skin test is negative to penicillin Please update me with results to proceed to part 3 of the test. Can use claritin or zyrtec during We can consider environmental testing in the future Can use saline for now for dryness documented in this encounterOhiohealth Southeastern Medical Center11-28-2023 History of Present illness Narrative* Mary Ann Fernandez RN - 08/11/2023 1:50 PM EST ANTIBIOTIC PERCUTANEOUS AND INTRADERMAL SKIN TESTING/ Mean Wheal & Flare Diameter (mm) Patient has been identified by name and date of : Yes, Provider Dr. Camp Date 08/11/2023 [id number] . Skin test applied by : Mary [...] mm PENICILLIN GK 10,000 UNITS/ML Pfizer, NDC: 5114-4788-39, Lot: [id number], exp: 08/13/2023 recon. exp:,1429 P: W = 0 mm F = 0 mm ID: W = 0 mm F = 0 mm PREPEN -(benzylpenicilloyl polylysine) full [place], [place]: 88[address]-422-67, Lot: [id number], exp: 01/11/2025 P: W = 0 mm F = 0mm ID: W = 0 mm F = 0 mm AMPICILLIN SODIUM 12.5mg/ml [place], ND: 0541-4534-01, Lot: [id number], exp: 12/12/2024 recon. exp: 1430 P: W [...] this visit. 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 [employer] message sent. Medications reviewed and verified, instructions [...] plan provided to patient via a Fertility service member. Dmitry Menchaca MD July 30, 2023 8:53 AM documented in this encounterOhiohealth Southeastern Medical Center11-10-2023 History of Present illness Narrative* Michel Joseph MD - 07/24/2023 9:30 AM EST Patient presents for pelvic ultrasound. See Imaging tab for results. Michel Joseph MD documented in this encounterOhiohealth Southeastern Medical Center11-03-2023 History of Present illness Narrative* Emelia Rust [...] and timing. Patient states understanding. Sent detailed [employer] message, request sent for appointment on 07/24 at [place]. Emelia Rust RN July 17, 2023 2:25 PM documented in this encounterOhiohealth Southeastern Medical Center10-13-2023 History of Present illness Narrative* Nilton Zhang RN - 06/26/2023 2:17 PM EDT RN called patient, name and verified. Plan given for IVF cycle per physician, see flowsheet fordetails. [employer] message sent. Medications reviewed and verified, instructions [...] 26, 2023 7:58 AM documented in this encounterOhiohealth Southeastern Medical Center09-14-2023 History of Present illness Narrative* Nilton Zhang RN - 05/28/2023 2:52 PM EDT RN called patient, name and verified. Plan given for superovcycle per physician, see flowsheet for details. [employer] message sent. Medications reviewed and verified, instructions [...] plan provided to patient via a Fertility service member. Dmitry Menchaca MD * Nilton Zhang [...] 28, 2023 7:25 AM documented in this encounterOhiohealth Southeastern Medical Center09-14-2023 Miscellaneous Notes* Addendum Note - Ines Julio MD - 05/28/2023 12:20 PM EDTAddended by: INES JULIO on: 05/28/2023 12:20 PM Modules accepted: Orders documented in this encounterOhiohealth Southeastern Medical Center09-13-2023 Miscellaneous Notes* Telephone Encounter - Idalmis Arias RN - 05/27/2023 10:21 AM EDT Return call. Confirmed with patient that she has enough meds and verbalizes understanding of plan. Idalmis Arias RN May 27, 2023 10:21 AM * Telephone Encounter - Sushila Barbour - 05/26/2023 4:06 PM EDT N- ivf Patient is needing the follistom shot documented in this encounterOhiohealth Southeastern Medical Center09-13-2023 Miscellaneous Notes* Telephone Encounter - Mary Ann Kirkland - 05/27/2023 10:07 AM EDT Updated flowsheet. Patient has trigger. Mary Ann Kirkland May 27, 2023 10:08 AM * Telephone Encounter - Sushila Barbour - 05/25/2023 3:48 PM EDT N- ivf Patient has trigger shot documented in this encounterOhiohealth Southeastern Medical Center09-11-2023 History of Present illness Narrative* Mary Ann Kirkland - 05/25/2023 2:02 PM EDT The patient is here today for follicular ultrasound and blood work. The patient reports no problemsor complaints. Ultrasound and blood will be reviewed by the physician, the flow sheet will be updated and instructions will be communicated to the patient. Mary Ann Kirkland Unable to reach patient by phone, sent [employer] message with instructions. Location: [place] Visit type: SO monitoring us/e2 Date: 05/28/23 @ 0715 Mary Ann Kirkland May 25, 2023 2:13 PM documented in this encounterOhiohealth Southeastern Medical Center09-07-2023 Miscellaneous Notes* Telephone Encounter - Nilton Zhang [...] from Nurse Nilton Crow documented in this encounterOhiohealth Southeastern Medical Center09-07-2023 History of Present illness Narrative* Nilton Zhang RN - 05/21/2023 1:26 PM EDT RN called patient, name and verified. Plan given for IVF cycle per physician, see flowsheet fordetails. [employer] message sent. Medications reviewed and verified, instructions [...] plan provided to patient via a Fertility service member. Dmitry Menchaca MD * Nilton Zhang [...] 21, 2023 7:48 AM documented in this encounterOhiohealth Southeastern Medical Center08-30-2023 History of Present illness Narrative* Nilton Zhang [...] 13, 2023 7:51 AM documented in this encounterOhiohealth Southeastern Medical Center08-29-2023 Miscellaneous Notes* Telephone Encounter - Emelia Rust RN - 05/12/2023 3:21 PM EDT Returned phone call. Patient states she needs metformin reordered, she also needs to schedule baseline. Metformin reordered per patient request. Baseline appointment scheduled for 05/13 at 0715 at [place]. Emelia Rust RN * Telephone Encounter - [...] requested back on 04/23 documented in this encounterOhiohealth Southeastern Medical Center08-29-2023 Miscellaneous Notes* Telephone Encounter - Sushila Barbour - 05/12/2023 2:38 PM EDT Patient would like a call back * Telephone Encounter - Ana Sotomayor - 05/12/2023 12:39 PM EDT Pt is cd2 needs to schedule baseline and prescriptions need to be filled documented in this encounterOhiohealth Southeastern Medical Center08-08-2023 History of Present illness Narrative* Ivy Gardner - 04/21/2023 11:[address] Menchaca: okay to proceed SO cycle: need at least 1 nature oocyte on RIGHT to proceed with trigger each month. FSH ordered to mdr. Pt will call with cd1 to schedule SO baseline. Ivypollo Gardner April 21, 2023 11:11 AM documented in this encounterOhiohealth Southeastern Medical Center07-21-2023 History of Present illness Narrative* Simran Shin [...] 03, 2023 2:03 PM documented in this encounterOhiohealth Southeastern Medical Center06-26-2023 History of Present illness Narrative* Ar Hennessy [...] Pharmacy- [facility]- n/a Preferred Monitoring site: [place] (Xiomara Carney) [facility] Episode created: Yes Super ovulation # 1 G 0 P 0 AMH- 12.5 BMI- 43.1 Dx- PCOS Uterine Eval- needs HSG Blood type- needs drawn Semen Analysis- needs completed Rubella- Unknown Varicella- Unknown WW- 03/06 / PAP- 02/03 LMP- doesn't get cycles / Cycles- irregular Partner: Arun Arizmendi / MRN: needs to register To Do List: Needs to fax annual records Needs blood drawn Will schedule HSG with NMP after taking provera Partner needs to register Once registered will need SA Ar Hennessy RN March 09, 2023 11:21 AM documented in this encounterOhiohealth Southeastern Medical Center06-12-2023 Miscellaneous Notes* Telephone Encounter - Khurram Zendejas RN - 02/23/2023 2:42 PM EDT Called the pharmacy and spoke with a pharmacist I advised clomid is correct dose Khurram Zendejas RN February 23, 2023 2:44 PM * Telephone Encounter - Juana Liu - 02/23/2023 2:06 PM EDT [facility] pharmacy in [facility] called in regard to clarification on a medication they received. documented in this encounterOhiohealth Southeastern Medical Center06-12-2023 Miscellaneous Notes* Telephone Encounter - Khurram Zendejas [...] and future treatment options documented in this encounterOhiohealth Southeastern Medical Center06-12-2023 Miscellaneous Notes* Telephone Encounter - Jonelle Daley [...] process started for IVF. documented in this encounterOhiohealth Southeastern Medical Center04-07-2023 History of Present illness Narrative* Heena Orr APRN.CNP - 12/19/2022 4:30 PM EDT Aleida Arizmendi is here today for a midcycle scan. Lead follicle: nothing larger than 10mm Plan: cancel cycle, follow up with Dr. Althea Orr APRN.CNP December 19, 2022 4:30 PM documented in this encounterOhiohealth Southeastern Medical Center03-21-2023 Miscellaneous Notes* Telephone Encounter - Heena Orr [...] seven days of my reply. See the [employer] message reply for my assessment and plan. I spent a total of 10 minutes reviewing the patient's prior medical records and current request formedical advice, prescribing medications or ordering tests (if applicable), replying to the patient,and documenting the encounter. documented in this encounterOhiohealth Southeastern Medical Center03-17-2023 Miscellaneous Notes* Telephone Encounter - Sushila Levy [...] - 11/28/2022 3:13 PM EDT [facility] is pharmacy, please follow up with patient when called in . documented in this encounterOhiohealth Southeastern Medical Center03-07-2023 Miscellaneous Notes* Telephone Encounter - Sushila Levy [...] seven days of my reply. See the [employer] message reply for my assessment and plan. I spent a total of 5 minutes reviewing the patient's prior medical records and current request for medical advice, prescribing medications or ordering tests (if applicable), replying to the patient, and documenting the encounter. documented in this encounterOhio[facility]-27-[facility] History of Present illness Narrative* Sushila Levy APRN.CNP - 11/10/2022 12:21 PM EST Aleida Arizmendi is here today for a midcycle scan. Lead follicle: 16 Plan: trigger 11/12 for TI Sushila Levy APRN.CNP November 10, 2022 12:21 PM documented in this encounterOhiohealth [facility]02-24-[facility]23 History of Present illness Narrative* Sushila Levy APRN.CNP - 11/07/2022 10:20 AM EST Aleida Ugo is here today for a midcycle scan. Lead follicle: 12 Plan: repeat 11/10 Sushila Levy APRN.CNP November 07, 2022 10:20 AM Please schedule the patient for the following- Location: [place] Provider: Nurse Visit type: Monitoring Reason for visit/appointment notes: Monitoring Date: 11/10 Time (requested): 0730 If slot is full, please schedule the closest open slot. Call to patient needed: no documented in this encounterOhiohealth [facility]02-13-2023 Miscellaneous Notes* Telephone Encounter - Kobi Weiner PA-C - 10/27/2022 3:28 PM EST Called the pt back. Provided information on the plan:Let 10/Dexa/Midycle/Trigger/TI. Pt can't come in on 11/06, so will be scanned on 11/07. Please schedule the patient for the following- Location: [place] Provider: Kobi Weiner PA-C Visit type: Midcycle [...] Unable to reach patient by phone, sent [employer] message with instructions. Let 10/Dexa/Midycle/Trigger/TI Please schedule the patient for the following- Location: [place] Provider: Kobi Weiner PA-C Visit type: Follicular [...] mid cycle scan [place] [facility] [place] [place] Patient usually ovulates 19-22 Patient was [...] to schedule midcycle us documented in this encounterOhio[facility]01-17-2023 Miscellaneous Notes* Telephone Encounter - Khurram Zendejas RN - 09/30/2022 7:41 AM EST See phone call Khurram Zendejas RN September 30, 2022 7:41 AM documented in this encounterOhiohealth [facility]01-16-2023 Miscellaneous Notes* Telephone Encounter - Sushila Levy [...] set up monitored cycle. Will come to [place] for future scans. Sushila Levy APRN.CNP September 29, 2022 12:30 PM * Telephone Encounter - Greer Trejo Pss - 09/29/2022 11:44 AM EST Pt upset she hasn't heard anything reg her us and next steps documented in this encounterOhiohealth [facility]01-04-2023 Miscellaneous Notes* Telephone Encounter - Kobi Weiner [...] 17, 2022 10:08 AM documented in this encounterOhiohealth Southeastern Medical Center04-13-2022 Consult note* Dmitry Menchaca MD - 12/25/2021 1:36 PM EDT VIRTUAL VISIT PROGRESS NOTE This is a virtual visit using [employer] video visit. It required patient-provider interaction for [...] done OPK (Ovulation Predictor Kit) Abnormal Ovarian Jenera Normal Saline Ultrasound Not done Semen Analysis [...] which included preparing to see the patient, [id number] patient care, completing clinical documentation, obtaining and/or reviewing separately obtained history, counseling and educating the patient/family/caregiver, ordering medications, renetta ts, or procedures, independently interpreting results (not separately reported) and communicating results to the patient/family/caregiver. Dmitry Menchaca MD December 25, 2021 1:40 PM documented in this encounterOhiohealth [facility] CenterEval[facility] note* Diagnosis Insulin resistance- Primary Dysmetabolic Syndrome X Problems with ovulation Unspecified noninflammatory disorder of ovary, fallopian tube, and broad ligament documented in this encounter [facility]* Diagnosis Treatment plan provided- Primary documented in this encounter [facility]* Diagnosis Encounter for fertility planning- Primary Other specified procreative management documented in this encounter [facility]* Diagnosis Missed - Primary documented in this encounter [facility]* Diagnosis Encounter for fertility planning- Primary Other specified procreative management documented in this encounter [facility]* Diagnosis Encounter for fertility planning- Primary Other specified procreative management Disorder of ovulation Unspecified noninflammatory disorder of ovary, fallopian tube, and broad ligament [facility] Diagnosis Female infertility- Primary Female infertility of unspecified origin Encounter for fertility planning Other specified procreative management [facility] Diagnosis Female infertility Female infertility of unspecified origin [facility] Diagnosis Treatment plan provided- Primary documented in this encounter [facility]* Diagnosis Insulin resistance Dysmetabolic Syndrome X [facility] Diagnosis Encounter for fertility testing- Primary Fertility testing [facility] Diagnosis Encounter for fertility testing- Primary Fertility testing Immunity to varicella determined by serologic test Immunity to rubella determined by serologic test documented in this encounter [facility]* Diagnosis Negative test- Primary examination or test, negative result documented in this encounter [facility]* Diagnosis Insulin resistance Dysmetabolic Syndrome X documented in this encounter [facility]* Diagnosis Encounter for fertility testing- Primary Fertility testing documented in this encounter [facility]* Diagnosis Female infertility- Primary Female infertility of unspecified origin Encounter for fertility testing Fertility testing documented in this encounter [facility] note* Diagnosis Infertility, female- Primary Female infertility of unspecified origin Encounter for fertility testing Fertility testing documented in this encounter [facility] note* Diagnosis Encounter for fertility testing Fertility testing documented in this encounter [facility] note* Diagnosis Primary female infertility Female infertility of unspecified origin documented in this encounter [facility] note* Diagnosis Primary female infertility Female infertility of unspecified origin documented in this encounter [facility] note* Diagnosis Primary female infertility Female infertility of unspecified origin documented in this encounter [facility] note* Diagnosis H/O penicillin-type antibiotic allergy- Primary Personal history of allergy to penicillin documented in this encounter [facility] note* Diagnosis Primary female infertility Female infertility of unspecified origin documented in this encounter [facility] note* Diagnosis Allergy to drug- Primary Other drug allergy Dry nares Other diseases of nasal cavity and sinuses Seasonal allergic rhinitis due to pollen documented in this encounter [facility] note* Diagnosis Female infertility- Primary Female infertility of unspecified origin documented in this encounter [facility] note* Diagnosis Primary female infertility- Primary Female infertility of unspecified origin documented in this encounter [facility] note* Diagnosis Female infertility Female infertility of unspecified origin documented in this encounter [facility] note* Diagnosis Female infertility Female infertility of unspecified origin documented in this encounter [facility] noteNo assessment information availableSelect Medical [facility] Work Phone: Evaluation note* Diagnosis Encounter for supervision of normal first in first trimester documented in this encounter [facility] [place] note* Diagnosis Encounter to determine viability of , fetus 1 of multiple gestation- Primary documented in this encounter [facility] note* Diagnosis Non-viable - Primary Other abnormal products of conception documented in this encounter [facility] note* Diagnosis Missed - Primary Missed documented in this encounter [facility] note* Diagnosis Encounter for test, result positive- Primary examination or test, positive result Miscarriage Unspecified spontaneous without mention of complication documented in this encounter [facility] note* Diagnosis Post-operative state- Primary Other postprocedural status documented in this encounter [facility] note* Diagnosis Female infertility- Primary Female infertility of unspecified origin [facility] Female infertility Female infertility of unspecified origin documented in this encounter [facility]* Diagnosis Female infertility Female infertility of unspecified origin documented in this encounter [facility]* Diagnosis Encounter for Papanicolaou smear for [...] syndrome) Polycystic ovaries documented in this encounter [facility]* Diagnosis Encounter for fertility testing- Primary Fertility testing documented in this encounter [facility]* Diagnosis Androgen excess- Primary Other nonspecific finding on examination of urine Fertility testing documented in this encounter [facility]* Diagnosis Cervical high risk HPV (human papillomavirus) test positive- Primary Cervical high risk human papillomavirus (HPV) DNA test positive documented in this encounter [facility]* Diagnosis Female infertility- Primary Female infertility of unspecified origin documented in this encounter [facility]* Diagnosis Irregular menses- Primary Irregular menstrual cycle Female infertility Female infertility of unspecified origin documented in this encounter [facility]* Diagnosis Pre-procedure lab exam- Primary Pre-procedural laboratory examination Fertility testing documented in this encounter [facility]* Diagnosis Encounter for fertility testing- Primary Fertility testing documented in this encounter [facility]* Diagnosis Pre-operative laboratory examination- Primary Pre-procedural laboratory examination Endometrial polyp Polyp of corpus uteri Encounter for fertility testing Fertility testing documented in this encounter [facility]* Diagnosis Female infertility Female infertility of unspecified origin documented in this encounter [facility]* Diagnosis Primary female infertility Female infertility of unspecified origin documented in this encounter [facility]* Diagnosis Primary female infertility Female infertility of unspecified origin documented in this encounter [facility]* Diagnosis Primary female infertility Female infertility of unspecified origin documented [facility] this encounter [facility]* Diagnosis Primary female infertility Female infertility of unspecified origin documented in this encounter [facility]* Diagnosis Female infertility- Primary Female infertility of unspecified origin documented in this encounter [facility]* Diagnosis Female infertility Female infertility of unspecified origin documented in this encounter [facility]* Diagnosis Female infertility Female infertility of unspecified origin [facility] Diagnosis Female infertility- Primary Female infertility of unspecified origin documented in this encounter [facility] note* Diagnosis Female infertility Female infertility of unspecified origin documented in this encounter [facility] note* Diagnosis Female infertility- Primary Female infertility of unspecified origin documented in this encounter [facility] note* Diagnosis Female infertility Female infertility of unspecified origin documented in this encounter [facility] note* Diagnosis Female infertility Female infertility of unspecified origin documented in this encounter [facility] note* Diagnosis Female infertility- Primary Female infertility of unspecified origin documented in this encounter [facility] note* Diagnosis PCOS (polycystic ovarian syndrome)- Primary Polycystic ovaries Midline low back pain without sciatica, unspecified chronicity [facility]* Diagnosis Female infertility Female infertility of unspecified origin documented in this encounter [facility] note* Diagnosis Female infertility Female infertility of unspecified origin documented in this encounter [facility] note* Diagnosis Female infertility Female infertility of unspecified origin documented in this encounter [facility] note* Diagnosis NIKO (obstructive sleep apnea)- Primary Obstructive sleep apnea (adult) (pediatric) CPAP use counseling Obesity, Class III, BMI 40-49.9 (morbid obesity) ([facility]) Noncompliance with CPAP treatment documented [facility]* Diagnosis Routine general medical examination at a health care facility- Primary documented [facility]* Diagnosis PCOS (polycystic ovarian syndrome)- Primary Polycystic ovaries Hypertriglyceridemia Pure hyperglyceridemia documented [facility]* Diagnosis Other acute sinusitis, recurrence not specified- Primary [facility]* Diagnosis Routine general medical examination at a health care facility- Primary Inclusion cyst Sebaceous cyst PCOS (polycystic ovarian syndrome) Polycystic ovaries documented [facility]* Diagnosis Medication refill- Primary Issue of repeat prescriptions documented in this encounter [facility] note* Diagnosis Encounter for fertility testing- Primary Fertility testing Female infertility Female infertility of unspecified origin Female infertility- Primary Female infertility of unspecified origin Encounter for fertility testing Fertility testing documented [facility] this encounter [facility]* Diagnosis Female infertility- Primary Female infertility of unspecified origin Encounter for fertility testing Fertility testing documented in this encounter [facility]* Diagnosis Female infertility- Primary Female infertility of unspecified origin Encounter for fertility testing Fertility testing documented in this encounter [facility]* Diagnosis Inclusion cyst- Primary Sebaceous cyst documented [facility] encounter [facility]* Diagnosis Encounter for fertility testing Fertility testing documented in this encounter [facility]* Diagnosis Encounter for fertility testing Fertility testing documented in this encounter [facility]* Diagnosis Inclusion cyst- Primary Sebaceous cyst documented in this encounter [facility]* Diagnosis Encounter for test, result positive (HCC)- Primary examination or test, positive result documented in this encounter [facility]* Diagnosis Encounter for test, result positive (HCC)- Primary examination or test, positive result documented in this encounter [facility]* Diagnosis Encounter for test, result positive (HCC) examination or test, positive result documented in this encounter [facility]* Diagnosis Encounter for test, result positive (HCC) examination or test, positive result documented in this encounter [facility]* Diagnosis Miscarriage (HCC) [O03.9]- Primary Unspecified spontaneous without mention of complication [facility] Additional Instructions Please keep your scheduled appointment with your ultrasound next week.[facility] Work Phone: InstructionsNot on filedocumented in this encounter [facility] ech[facility] SystemInstructionsNot on filedocumented in this encounter [facility] SystemInstructions* Attachments The following attachments cannot be sent through Care Everywhere. * Yearly Physical for Adults (Chinese) documented in this encounterProTwin [facility] SystemInstructions* Attachments The following attachments cannot be sent through Care Everywhere. * Low Carbohydrate Diet (Chinese) * High triglycerides (Chinese) documented in this encounterProTwin City Hospital SystemInstructionsNot on file documented in this encounterProEncompass [facility] SystemInstructionsNot on file documented in this encounterProEncompass Health [facility] echoecho SystemInstructionsNot on file documented in this encounterProTwin City Hospital SystemInstructionsNot on file documented in this encounterProTwin City Hospital SystemInstructionsNot on file documented in this encounterProTwin City Hospital SystemInstructionsNot on file documented in this encounterProOhiohealth O'Bleness HospitalReason for referral (narrative)* Diagnostic Procedure Only (Routine) - Pending Review Specialty Diagnoses / Procedures Referred By Contac t Referred To Contact [facility] Diagnoses Encounter for fertility planning Procedures FOLLICULAR US WHI US PELVIC NONOBSTETRIC IMAGE DCMTN LIMITED/F/U Kobi Weiner PA-C [address] [place] [address] [facility] [address] [place] [address] Referral ID Status Reason Start Date Expiration Date Visits Requested Visits Authorized [id number] Pending Review Auto-Generat ed Referral 10/27/2022 10/27/2023 1 1 [facility] for referral (narrative)* Diagnostic Procedure Only (Routine) - Authorized Specialty Diagnoses / Procedures Referred By Contac t Referred To Contact [facility] Diagnoses Female infertility Procedures FOLLICULAR US I US PELVIC NONOBSTETRIC IMAGE DCMTN LIMITED/F/U Sushila Levy APRN.PONY RIDE OPERATOR [address] [place] [address] [address] Referral ID Status Reason Start Date Expiration Date Visits Requested Visits Authorized [id number] Authorized Auto-Generat ed Referral 11/07/2022 11/07/2023 1 1 [facility] for referral (narrative)* Diagnostic Procedure Only (Routine) - Authorized Specialty Diagnoses / Procedures Referred By Contac t Referred To Contact [facility] Diagnoses Encounter for fertility testing Procedures FOLLICULAR US WHI US PELVIC NONOBSTETRIC IMAGE DCMTN LIMITED/F/U Heena Orr APRN.PONY RIDE OPERATOR [address] [facility] [address] [place] [address] [address] Referral ID Status Reason Start Date Expiration Date Visits Requested Visits Authorized [id number] Authorized Auto-Generat ed Referral 12/02/2022 12/02/2023 1 1 [facility] for referral (narrative)* Diagnostic Procedure Only (Routine) - Pending Review Specialty Diagnoses / Procedures Referred By Contac t Referred To Contact XR IMAGING Diagnoses Encounter for fertility testing Procedures XR HYSTEROSALPINGOGRAM CATH & SALINE/CONTRAST SONOHYSTER/[place] [address] [place] [address] Xr Imaging Referral ID Status Reason Start Date Expiration Date Visits Requested Visits Authorized [id number] Pending Review Auto-Generat ed Referral 03/09/2023 04/07/2024 1 1 [facility] for referral (narrative)* Diagnostic Procedure Only (Routine) - Pending Review Specialty Diagnoses / Procedures Referred By Contac t Referred To Contact [facility] Diagnoses Encounter for fertility testing Procedures FOLLICULAR US WHI US PELVIC NONOBSTETRIC IMAGE JOSSE LIMITED/F/U Leonel Cabezas APRN.CNP [address] [place] [address] [address] Referral ID Status Reason Start Date Expiration Date Visits Requested Visits Authorized [id number] Pending Review Auto-Generat ed Referral 05/12/2023 05/11/2024 6 1 [facility] for referral (narrative)* Diagnostic Procedure Only (Routine) - Authorized Specialty Diagnoses / Procedures Referred By Contac t Referred To Contact [facility] Diagnoses Female infertility Procedures FOLLICULAR US WHI US PELVIC NONOBSTETRIC IMAGE LENYTShaka LIMITED/F/U Leonel Cabezas APRN.PONY RIDE OPERATOR [address] [place] [address] [address] Referral ID Status Reason Start Date Expiration Date Visits Requested Visits Authorized [id number] Authorized Auto-Generat ed Referral 08/18/2023 08/17/2024 [address] [facility] [place] [facility] Diagnostic Procedure Only (Routine) - Authorized Specialty Diagnoses / Procedures Referred By Contac t Referred To Contact [facility] Diagnoses Encounter to determine viability of , fetus 1 of multiple gestation Procedures OBSTETRIC ULTRASOUND WHI US PREG UTERUS AFTER 1ST TRIMEST GESTATION Provider, Disk Recoater Transcribe [address] [address] Referral ID Status Reason Start Date Expiration Date Visits Requested Visits Authorized [id number] Authorized Auto-Generat ed Referral 10/22/2023 10/21/2024 1 1 [facility] for referral (narrative)* Diagnostic Procedure Only (Routine) - Pending Review Specialty Diagnoses / Procedures Referred By Contac t Referred To Contact [facility] Diagnoses Female infertility Procedures FOLLICULAR US WHI US PELVIC NONOBSTETRIC IMAGE DCMTN LIMITED/F/U Leonel Cabezas APRN.PONY RIDE OPERATOR [address] [place] [address] [address] Referral ID Status Reason Start Date Expiration Date Visits Requested Visits Authorized [id number] Pending Review Auto-Generat ed Referral 12/29/2023 12/28/2024 [address] [facility] [place] [facility] ([facility] Diagnostic Procedure Only (Routine) - Pending Review Specialty Diagnoses / Procedures Referred By Contac t Referred To Contact [facility] Diagnoses Fertility testing Procedures SONOHYSTEROGRAPHY (SIS) US [facility] SALINE INFUS SONOHYSTEROGRAPHY W/[place] [address] [place] [address] [facility] [address] [place] [address] Referral ID Status Reason Start Date Expiration Date Visits Requested Visits Authorized [id number] Pending Review Auto-Generat ed Referral 02/23/2024 02/22/2025 1 1 [facility] for referral (narrative)* Diagnostic Procedure Only (Routine) - Pending Review Specialty Diagnoses / Procedures Referred By Contac t Referred To Contact [facility] Diagnoses Female infertility Procedures FOLLICULAR US [facility] US PELVIC NONOBSTETRIC IMAGE [facility]/F/U Kobi Weiner PA-C [address] [place] [address] [address] [place] [address] Referral ID Status Reason Start Date Expiration Date Visits Requested Visits Authorized [id number] Pending Review Auto-Generat ed Referral 03/09/2024 03/09/2025 6 1 [facility] for referral (narrative)* Diagnostic Procedure Only (Routine) - Authorized Specialty Diagnoses / Procedures Referred By Contac t Referred To Contact [facility] Diagnoses Female infertility Procedures FOLLICULAR US I US PELVIC NONOBSTETRIC IMAGE DCMTN LIMITED/F/U Sushila Levy APRN.PONY RIDE OPERATOR [address] [facility] [place] [address] [facility] [address] [place] [address] Referral ID Status Reason Start Date Expiration Date Visits Requested Visits Authorized [id number] Authorized Auto-Generat ed Referral 07/04/2025 4 1 [facility] for referral (narrative)* Diagnostic Procedure Only (Routine) - New Request Specialty Diagnoses / Procedures Referred By Kt herbert Referred To Contact [facility] Diagnoses Female infertility Procedures FOLLICULAR US [facility] US PELVIC NONOBSTETRIC IMAGE [place] LIMITED/F/U Sushila Levy APRN.PONY RIDE OPERATOR [address] [facility] [address] [place] [address] [facility] [address] [place], [place] [address] [address] Referral ID Status Reason Start Date Expiration Date Visits Requested Visits Authorized [id number] New Request Auto-Generat ed Referral 08/08/2025 4 1 [facility] for referral (narrative)* Consultation (Routine) - Pending Review Specialty Diagnoses / Procedures Referred By Kt herbert Referred To Contact Nutrition Diagnoses PCOS (polycystic ovarian syndrome) Hypertriglyceridemia David Mckeon MD [address] [facility] [place] [address] [facility] [address] [place] [address] Referral ID Status Reason Start Date Expiration Date V isits Requested Visits Authorized [id number] Pending Review 11/20/2023 11/19/2024 1 1 Scheduling Instructions Low carb diet for hypertriglyceridemia [facility] for visit Narrative* Diagnostic Procedure Only (Routine) - Closed Specialty Diagnoses / Procedures Referred By Kt herbert Referred To Contact [facility] Diagnoses Female infertility Procedures FOLLICULAR US I US PELVIC NONOBSTETRIC IMAGE [place]OS[place] LIMITED/F/U Sushila Levy APRN.PONY RIDE OPERATOR [address] [facility] [address] [facility] [place] [address] [facility] [address] [place] [address] Referral ID Status Reason Start Date Expiration Date V isits Requested Visits Authorized [id number] Closed Auto-Generate d Referral 11/07/2022 11/07/2023 1 1 [facility] for visit Narrative* Diagnostic Procedure Only (Routine) - Closed Specialty Diagnoses / Procedures Referred By Contac t Referred To Contact [facility] Diagnoses Female infertility Procedures FOLLICULAR US I US PELVIC NONOBSTETRIC IMAGE DCMTN LIMITED/F/U Sushila Levy, NURSE GENERAL DUTY.PONY RIDE OPERATOR [address] [facility] [address] [place] [address] [facility] [address] [place] [address] Referral ID Status Reason Start Date Expiration Date V isits Requested Visits Authorized [id number] Closed Auto-Generate d Referral 12/15/2022 12/15/2023 1 1 [facility] for visit Narrative* Diagnostic Procedure Only (Routine) - Closed Specialty Diagnoses / Procedures Referred By Contac t Referred To Contact [facility] Diagnoses Encounter for fertility testing Procedures FOLLICULAR US [facility] US PELVIC NONOBSTETRIC IMAGE DCMTN LIMITED/F/U Leonel Cabezas, NURSE GENERAL DUTY.PONY RIDE OPERATOR [address] [place] [address] [address] Referral ID Status Reason Start Date Expiration Date V isits Requested Visits Authorized [id number] Closed Auto-Generate d Referral 05/13/2023 09/13/2023 6 1 [facility] for visit Narrative* Diagnostic Procedure Only (Routine) - Closed Specialty Diagnoses / Procedures Referred By Contac t Referred To Contact [facility] Diagnoses Primary female infertility Procedures FOLLICULAR [facility] US PELVIC NONOBSTETRIC IMAGE DCMTN LIMITED/F/U Radha Gilliam MD [address] [place] [address] [address] [place] [address] Referral ID Status Reason Start Date Expiration Date V isits Requested Visits Authorized [id number] Closed Auto-Generate d Referral 06/17/2023 06/16/2024 6 1 [facility] for visit Narrative* Diagnostic Procedure Only (Routine) - Closed Specialty Diagnoses / Procedures Referred By Contac t Referred To Contact [facility] Diagnoses Female infertility Procedures FOLLICULAR US I US PELVIC NONOBSTETRIC IMAGE DCMTN LIMITED/F/U Sushila Levy, ANGELITA.PONY RIDE OPERATOR [address] [facility] [address] [place] [address] [address] Referral ID Status Reason Start Date Expiration Date V isits Requested Visits Authorized [id number] Closed Auto-Generate d Referral 08/08/2024 08/08/2025 4 1 [facility] for visit Narrative* Diagnostic Procedure Only (Routine) - Closed Specialty Diagnoses / Procedures Referred By Contac t Referred To Contact [facility] Diagnoses Female infertility Procedures FOLLICULAR [facility] US PELVIC NONOBSTETRIC IMAGE DCMTShaka LIMITED/F/U Sushila Levy, NURSE GENERAL DUTY.PONY RIDE OPERATOR [address] [facility] [address] [place] [address] Phone: tel: fax: [address] [place] [address] Referral ID Status Reason Start Date Expiration Date V isits Requested Visits Authorized [id number] Closed Auto-Generate d Referral 08/08/2024 08/08/2025 4 1 [facility] for visit Narrative* Diagnostic Procedure Only (Routine) - Closed Specialty Diagnoses / Procedures Referred By Contac t Referred To Contact [facility] Diagnoses Encounter for fertility testing Procedures FOLLICULAR [facility] US PELVIC NONOBSTETRIC IMAGE DCMTN LIMITED/F/U Leonel Cabezas, ANGELITA.PONY RIDE OPERATOR [address] [place] [address] Phone: tel: fax: [address] [address] Referral ID Status Reason Start Date Expiration Date V isits Requested Visits Authorized [id number] Closed Auto-Generate d Referral 11/14/2024 11/11/2025 6 1 [facility] for visit Narrative* Diagnostic Procedure Only (Routine) - Closed Specialty Diagnoses / Procedures Referred By Contac t Referred To Contact [facility] Diagnoses Encounter for test, result positive (HCC) Procedures OBSTETRIC ULTRASOUND WHI OBSTETRIC ULTRASOUND WHI US PREG UTERUS AFTER 1ST TRIMEST GESTATION Kobi Weiner PA-C [address] [place] [address] Phone: tel: fax: [address] [address] Referral ID Status Reason Start Date Expiration Date V isits Requested Visits Authorized [id number] Closed Auto-Generate d Referral 12/16/2024 12/16/2025 1 1 [facility] Diagnostic Procedure Only (Routine) - Closed Specialty Diagnoses / Procedures Referred By Kt herbert Referred To Contact [facility] Diagnoses Encounter for test, result positive (HCC) Procedures OBSTETRIC ULTRASOUND WHI US PREG UTERUS AFTER 1ST [place] [address] [place] [address] Phone: tel: fax: [address] [address] Referral ID Status Reason Start Date Expiration Date V isits Requested Visits Authorized [id number] Closed Auto-Generate d Referral 12/30/2024 12/30/2025 1 1 [facility] Summary Purpose Family History Relationship Condition Age [...] Referred By Kt herbert Referred To Contact [facility] Diagnoses Encounter for fertility testing Procedures OFFICE HYSTEROSCOPY HYSTEROSCOPY BX ENDOMETRIUM&/POLYPC W/WO D&C HYSTEROSCOPY, DIAGNOSTIC ([place] [address] [place] [address] [address] Referral ID Status Reason Start Date Expiration Date Visits Requested Visits Authorized [id number] Waiting for Response Benefit Check 05/05/2024 05/05/2025 2 1 Specialty Diagnoses / Procedures Referred By Kt t Referred To Contact [facility] Diagnoses Female infertility Procedures FOLLICULAR US WHI US PELVIC NONOBSTETRIC IMAGE DCMTN LIMITED/F/[place] [address] [place] [address] [facility] [address] [place] [address] Referral ID Status Reason Start Date Expiration Date Visits Requested Visits Authorized [id number] New Request Benefit Check 09/09/2025 3 1 Additional Source Comments INFORMATION SOURCE (unrecogn ized section and content) DATE CREATED AUTHOR 09/21/2021 [facility] DATE CREATED AUTHOR AUTHOR'S ORGANIZ ATION 01/11/2024 [facility] DATE CREATED AUTHOR AUTHOR'S ORGANIZ ATION 04/13/2024 [employer] DATE CREATED AUTHOR AUTHOR'S ORGANIZ ATION 12/01/2024 [facility] DATE CREATED AUTHOR AUTHOR'S ORGANIZ ATION 12/07/2024 [facility] DATE CREATED AUTHOR AUTHOR'S ORGANIZ ATION 01/11/2025 [facility] DATE CREATED AUTHOR AUTHOR'S ORGANIZ ATION 01/18/2025 [facility] DATE CREATED AUTHOR AUTHOR'S ORGANIZ ATION 01/19/2025 [facility] DATE CREATED AUTHOR AUTHOR'S ORGANIZ ATION 01/25/2025 [facility] Source Comments (unrecognize d section and content) In the event this informatio n is protected by the Federal Confidentiality of Alcohol and Drug Abuse Patient Records regulations: The Federal rules restrict any use of the information to criminally investigate or prosecute any alcohol or drug abuse patient.[facility] the event this information is protected by the Federal Confidentiality of Alcohol and Drug Abuse Patient Records regulations: The Federal rules restrict any use of the information to criminally investigate or prosecute any alcohol or drug abuse patient.[facility] Center[facility] the event this information is protected by the Federal Confidentiality of Alcohol and Drug Abuse Patient Records regulations: The Federal rules restrict any use of the information to criminally investigate or prosecute any alcohol or drug abuse patient.[facility] Center[facility] the event this information is protected by the Federal Confidentiality of Alcohol and Drug Abuse Patient Records regulations: The Federal rules restrict any use of the information to criminally investigate or prosecute any alcohol or drug abuse patient.[facility] CenterIn the event this information is protected by the Federal Confidentiality of Alcohol and Drug Abuse Patient Records regulations: The Federal rules restrict any use of the information to criminally investigate or prosecute any alcohol or drug abuse patient.[facility] the event this information is protected by the Federal Confidentiality of Alcohol and Drug Abuse Patient Records regulations: The Federal rules restrict any use of the information to criminally investigate or prosecute any alcohol or drug abuse patient.[facility] Center[facility] the event this information is protected by the Federal Confidentiality of Alcohol and Drug Abuse Patient Records regulations: The Federal rules restrict any use of the information to criminally investigate or prosecute any alcohol or drug abuse patient.[facility] CenterIn the event this information is protected by the Federal Confidentiality of Alcohol and Drug Abuse Patient Records regulations: The Federal rules restrict any use of the information to criminally investigate or prosecute any alcohol or drug abuse patient.[facility] Center[facility] the event this information is protected by the Federal Confidentiality of Alcohol and Drug Abuse Patient Records regulations: The Federal rules restrict any use of the information to criminally investigate or prosecute any alcohol or drug abuse patient.[facility] CenterIn the event this information is protected by the Federal Confidentiality of Alcohol and Drug Abuse Patient Records regulations: The Federal rules restrict any use of the information to criminally investigate or prosecute any alcohol or drug abuse patient.[facility] CenterIn the event this information is protected by the Federal Confidentiality of Alcohol and Drug Abuse Patient Records regulations: The Federal rules restrict any use of the information to criminally investigate or prosecute any alcohol or drug abuse patient.[facility] CenterIn the event this information is protected by the Federal Confidentiality of Alcohol and Drug Abuse Patient Records regulations: The Federal rules restrict any use of the information to criminally investigate or prosecute any alcohol or drug abuse patient.[facility] CenterIn the event this information is protected by the Federal Confidentiality of Alcohol and Drug Abuse Patient Records regulations: The Federal rules restrict any use of the information to criminally investigate or prosecute any alcohol or drug abuse patient.[facility] CenterIn the event this information is protected by the Federal Confidentiality of Alcohol and Drug Abuse Patient Records regulations: The Federal rules restrict any use of the information to criminally investigate or prosecute any alcohol or drug abuse patient.[facility] CenterIn the event this information is protected by the Federal Confidentiality of Alcohol and Drug Abuse Patient Records regulations: The Federal rules restrict any use of the information to criminally investigate or prosecute any alcohol or drug abuse patient.[facility] CenterIn the event this information is protected by the Federal Confidentiality of Alcohol and Drug Abuse Patient Records regulations: The Federal rules restrict any use of the information to criminally investigate or prosecute any alcohol or drug abuse patient.[facility] CenterIn the event this information is protected by the Federal Confidentiality of Alcohol and Drug Abuse Patient Records regulations: The Federal rules restrict any use of the information to criminally investigate or prosecute any alcohol or drug abuse patient.[facility] CenterIn the event this information is protected by the Federal Confidentiality of Alcohol and Drug Abuse Patient Records regulations: The Federal rules restrict any use of the information to criminally investigate or prosecute any alcohol or drug abuse patient.[facility] CenterIn the event this information is protected by the Federal Confidentiality of Alcohol and Drug Abuse Patient Records regulations: The Federal rules restrict any use of the information to criminally investigate or prosecute any alcohol or drug abuse patient.[facility] CenterIn the event this information is protected by the Federal Confidentiality of Alcohol and Drug Abuse Patient Records regulations: The Federal rules restrict any use of the information to criminally investigate or prosecute any alcohol or drug abuse patient.[facility] CenterIn the event this information is protected by the Federal Confidentiality of Alcohol and Drug Abuse Patient Records regulations: The Federal rules restrict any use of the information to criminally investigate or prosecute any alcohol or drug abuse patient.[facility] CenterIn the event this information is protected by the Federal Confidentiality of Alcohol and Drug Abuse Patient Records regulations: The Federal rules restrict any use of the information to criminally investigate or prosecute any alcohol or drug abuse patient.[facility] CenterIn the event this information is protected by the Federal Confidentiality of Alcohol and Drug Abuse Patient Records regulations: The Federal rules restrict any use of the information to criminally investigate or prosecute any alcohol or drug abuse patient.[facility] CenterIn the event this information is protected by the Federal Confidentiality of Alcohol and Drug Abuse Patient Records regulations: The Federal rules restrict any use of the information to criminally investigate or prosecute any alcohol or drug abuse patient.[facility] CenterIn the event this information is protected by the Federal Confidentiality of Alcohol and Drug Abuse Patient Records regulations: The Federal rules restrict any use of the information to criminally investigate or prosecute any alcohol or drug abuse patient.[facility] CenterIn the event this information is protected by the Federal Confidentiality of Alcohol and Drug Abuse Patient Records regulations: The Federal rules restrict any use of the information to criminally investigate or prosecute any alcohol or drug abuse patient.[facility] CenterIn the event this information is protected by the Federal Confidentiality of Alcohol and Drug Abuse Patient Records regulations: The Federal rules restrict any use of the information to criminally investigate or prosecute any alcohol or drug abuse patient.[facility] CenterIn the event this information is protected by the Federal Confidentiality of Alcohol and Drug Abuse Patient Records regulations: The Federal rules restrict any use of the information to criminally investigate or prosecute any alcohol or drug abuse patient.[facility] CenterIn the event this information is protected by the Federal Confidentiality of Alcohol and Drug Abuse Patient Records regulations: The Federal rules restrict any use of the information to criminally investigate or prosecute any alcohol or drug abuse patient.[facility] CenterIn the event this information is protected by the Federal Confidentiality of Alcohol and Drug Abuse Patient Records regulations: The Federal rules restrict any use of the information to criminally investigate or prosecute any alcohol or drug abuse patient.[facility] CenterIn the event this information is protected by the Federal Confidentiality of Alcohol and Drug Abuse Patient Records regulations: The Federal rules restrict any use of the information to criminally investigate or prosecute any alcohol or drug abuse patient.[facility] CenterIn the event this information is protected by the Federal Confidentiality of Alcohol and Drug Abuse Patient Records regulations: The Federal rules restrict any use of the information to criminally investigate or prosecute any alcohol or drug abuse patient.[facility] CenterIn the event this information is protected by the Federal Confidentiality of Alcohol and Drug Abuse Patient Records regulations: The Federal rules restrict any use of the information to criminally investigate or prosecute any alcohol or drug abuse patient.[facility] CenterIn the event this information is protected by the Federal Confidentiality of Alcohol and Drug Abuse Patient Records regulations: The Federal rules restrict any use of the information to criminally investigate or prosecute any alcohol or drug abuse patient.[facility] CenterIn the event this information is protected by the Federal Confidentiality of Alcohol and Drug Abuse Patient Records regulations: The Federal rules restrict any use of the information to criminally investigate or prosecute any alcohol or drug abuse patient.[facility] CenterIn the event this information is protected by the Federal Confidentiality of Alcohol and Drug Abuse Patient Records regulations: The Federal rules restrict any use of the information to criminally investigate or prosecute any alcohol or drug abuse patient.[facility] CenterIn the event this information is protected by the Federal Confidentiality of Alcohol and Drug Abuse Patient Records regulations: The Federal rules restrict any use of the information to criminally investigate or prosecute any alcohol or drug abuse patient.[facility] CenterIn the event this information is protected by the Federal Confidentiality of Alcohol and Drug Abuse Patient Records regulations: The Federal rules restrict any use of the information to criminally investigate or prosecute any alcohol or drug abuse patient.[facility] CenterIn the event this information is protected by the Federal Confidentiality of Alcohol and Drug Abuse Patient Records regulations: The Federal rules restrict any use of the information to criminally investigate or prosecute any alcohol or drug abuse patient.[facility] CenterIn the event this information is protected by the Federal Confidentiality of Alcohol and Drug Abuse Patient Records regulations: The Federal rules restrict any use of the information to criminally investigate or prosecute any alcohol or drug abuse patient.[facility] CenterIn the event this information is protected by the Federal Confidentiality of Alcohol and Drug Abuse Patient Records regulations: The Federal rules restrict any use of the information to criminally investigate or prosecute any alcohol or drug abuse patient.[facility] CenterIn the event this information is protected by the Federal Confidentiality of Alcohol and Drug Abuse Patient Records regulations: The Federal rules restrict any use of the information to criminally investigate or prosecute any alcohol or drug abuse patient.[facility] CenterIn the event this information is protected by the Federal Confidentiality of Alcohol and Drug Abuse Patient Records regulations: The Federal rules restrict any use of the information to criminally investigate or prosecute any alcohol or drug abuse patient.[facility] CenterIn the event this information is protected by the Federal Confidentiality of Alcohol and Drug Abuse Patient Records regulations: The Federal rules restrict any use of the information to criminally investigate or prosecute any alcohol or drug abuse patient.[facility] CenterIn the event this information is protected by the Federal Confidentiality of Alcohol and Drug Abuse Patient Records regulations: The Federal rules restrict any use of the information to criminally investigate or prosecute any alcohol or drug abuse patient.[facility] CenterIn the event this information is protected by the Federal Confidentiality of Alcohol and Drug Abuse Patient Records regulations: The Federal rules restrict any use of the information to criminally investigate or prosecute any alcohol or drug abuse patient.[facility] CenterIn the event this information is protected by the Federal Confidentiality of Alcohol and Drug Abuse Patient Records regulations: The Federal rules restrict any use of the information to criminally investigate or prosecute any alcohol or drug abuse patient.[facility] CenterIn the event this information is protected by the Federal Confidentiality of Alcohol and Drug Abuse Patient Records regulations: The Federal rules restrict any use of the information to criminally investigate or prosecute any alcohol or drug abuse patient.[facility] CenterIn the event this information is protected by the Federal Confidentiality of Alcohol and Drug Abuse Patient Records regulations: The Federal rules restrict any use of the information to criminally investigate or prosecute any alcohol or drug abuse patient.[facility] CenterIn the event this information is protected by the Federal Confidentiality of Alcohol and Drug Abuse Patient Records regulations: The Federal rules restrict any use of the information to criminally investigate or prosecute any alcohol or drug abuse patient.[facility] CenterIn the event this information is protected by the Federal Confidentiality of Alcohol and Drug Abuse Patient Records regulations: The Federal rules restrict any use of the information to criminally investigate or prosecute any alcohol or drug abuse patient.[facility] CenterIn the event this information is protected by the Federal Confidentiality of Alcohol and Drug Abuse Patient Records regulations: The Federal rules restrict any use of the information to criminally investigate or prosecute any alcohol or drug abuse patient.[facility] CenterIn the event this information is protected by the Federal Confidentiality of Alcohol and Drug Abuse Patient Records regulations: The Federal rules restrict any use of the information to criminally investigate or prosecute any alcohol or drug abuse patient.[facility] CenterIn the event this information is protected by the Federal Confidentiality of Alcohol and Drug Abuse Patient Records regulations: The Federal rules restrict any use of the information to criminally investigate or prosecute any alcohol or drug abuse patient.[facility] CenterIn the event this information is protected by the Federal Confidentiality of Alcohol and Drug Abuse Patient Records regulations: The Federal rules restrict any use of the information to criminally investigate or prosecute any alcohol or drug abuse patient.[facility] the event this information is protected by the Federal Confidentiality of Alcohol and Drug Abuse Patient Records regulations: The Federal rules restrict any use of the information to criminally investigate or prosecute any alcohol or drug abuse patient.[facility] CenterIn the event this information is protected by the Federal Confidentiality of Alcohol and Drug Abuse Patient Records regulations: The Federal rules restrict any use of the information to criminally investigate or prosecute any alcohol or drug abuse patient.[facility] CenterIn the event this information is protected by the Federal Confidentiality of Alcohol and Drug Abuse Patient Records regulations: The Federal rules restrict any use of the information to criminally investigate or prosecute any alcohol or drug abuse patient.[facility] CenterIn the event this information is protected by the Federal Confidentiality of Alcohol and Drug Abuse Patient Records regulations: The Federal rules restrict any use of the information to criminally investigate or prosecute any alcohol or drug abuse patient.[facility] CenterIn the event this information is protected by the Federal Confidentiality of Alcohol and Drug Abuse Patient Records regulations: The Federal rules restrict any use of the information to criminally investigate or prosecute any alcohol or drug abuse patient.[facility] CenterIn the event this information is protected by the Federal Confidentiality of Alcohol and Drug Abuse Patient Records regulations: The Federal rules restrict any use of the information to criminally investigate or prosecute any alcohol or drug abuse patient.[facility] CenterIn the event this information is protected by the Federal Confidentiality of Alcohol and Drug Abuse Patient Records regulations: The Federal rules restrict any use of the information to criminally investigate or prosecute any alcohol or drug abuse patient.[facility] CenterIn the event this information is protected by the Federal Confidentiality of Alcohol and Drug Abuse Patient Records regulations: The Federal rules restrict any use of the information to criminally investigate or prosecute any alcohol or drug abuse patient.[facility] CenterIn the event this information is protected by the Federal Confidentiality of Alcohol and Drug Abuse Patient Records regulations: The Federal rules restrict any use of the information to criminally investigate or prosecute any alcohol or drug abuse patient.[facility] CenterIn the event this information is protected by the Federal Confidentiality of Alcohol and Drug Abuse Patient Records regulations: The Federal rules restrict any use of the information to criminally investigate or prosecute any alcohol or drug abuse patient.[facility] CenterIn the event this information is protected by the Federal Confidentiality of Alcohol and Drug Abuse Patient Records regulations: The Federal rules restrict any use of the information to criminally investigate or prosecute any alcohol or drug abuse patient.[facility] CenterIn the event this information is protected by the Federal Confidentiality of Alcohol and Drug Abuse Patient Records regulations: The Federal rules restrict any use of the information to criminally investigate or prosecute any alcohol or drug abuse patient.[facility] CenterIn the event this information is protected by the Federal Confidentiality of Alcohol and Drug Abuse Patient Records regulations: The Federal rules restrict any use of the information to criminally investigate or prosecute any alcohol or drug abuse patient.[facility] CenterIn the event this information is protected by the Federal Confidentiality of Alcohol and Drug Abuse Patient Records regulations: The Federal rules restrict any use of the information to criminally investigate or prosecute any alcohol or drug abuse patient.[facility] CenterIn the event this information is protected by the Federal Confidentiality of Alcohol and Drug Abuse Patient Records regulations: The Federal rules restrict any use of the information to criminally investigate or prosecute any alcohol or drug abuse patient.[facility] CenterIn the event this information is protected by the Federal Confidentiality of Alcohol and Drug Abuse Patient Records regulations: The Federal rules restrict any use of the information to criminally investigate or prosecute any alcohol or drug abuse patient.[facility] CenterIn the event this information is protected by the Federal Confidentiality of Alcohol and Drug Abuse Patient Records regulations: The Federal rules restrict any use of the information to criminally investigate or prosecute any alcohol or drug abuse patient.[facility] CenterIn the event this information is protected by the Federal Confidentiality of Alcohol and Drug Abuse Patient Records regulations: The Federal rules restrict any use of the information to criminally investigate or prosecute any alcohol or drug abuse patient.[facility] CenterIn the event this information is protected by the Federal Confidentiality of Alcohol and Drug Abuse Patient Records regulations: The Federal rules restrict any use of the information to criminally investigate or prosecute any alcohol or drug abuse patient.[facility] CenterIn the event this information is protected by the Federal Confidentiality of Alcohol and Drug Abuse Patient Records regulations: The Federal rules restrict any use of the information to criminally investigate or prosecute any alcohol or drug abuse patient.[facility] CenterIn the event this information is protected by the Federal Confidentiality of Alcohol and Drug Abuse Patient Records regulations: The Federal rules restrict any use of the information to criminally investigate or prosecute any alcohol or drug abuse patient.[facility] CenterIn the event this information is protected by the Federal Confidentiality of Alcohol and Drug Abuse Patient Records regulations: The Federal rules restrict any use of the information to criminally investigate or prosecute any alcohol or drug abuse patient.[facility] CenterIn the event this information is protected by the Federal Confidentiality of Alcohol and Drug Abuse Patient Records regulations: The Federal rules restrict any use of the information to criminally investigate or prosecute any alcohol or drug abuse patient.[facility] CenterIn the event this information is protected by the Federal Confidentiality of Alcohol and Drug Abuse Patient Records regulations: The Federal rules restrict any use of the information to criminally investigate or prosecute any alcohol or drug abuse patient.[facility] CenterIn the event this information is protected by the Federal Confidentiality of Alcohol and Drug Abuse Patient Records regulations: The Federal rules restrict any use of the information to criminally investigate or prosecute any alcohol or drug abuse patient.[facility] CenterIn the event this information is protected by the Federal Confidentiality of Alcohol and Drug Abuse Patient Records regulations: The Federal rules restrict any use of the information to criminally investigate or prosecute any alcohol or drug abuse patient.[facility] CenterIn the event this information is protected by the Federal Confidentiality of Alcohol and Drug Abuse Patient Records regulations: The Federal rules restrict any use of the information to criminally investigate or prosecute any alcohol or drug abuse patient.[facility] CenterIn the event this information is protected by the Federal Confidentiality of Alcohol and Drug Abuse Patient Records regulations: The Federal rules restrict any use of the information to criminally investigate or prosecute any alcohol or drug abuse patient.[facility] CenterIn the event this information is protected by the Federal Confidentiality of Alcohol and Drug Abuse Patient Records regulations: The Federal rules restrict any use of the information to criminally investigate or prosecute any alcohol or drug abuse patient.[facility] CenterIn the event this information is protected by the Federal Confidentiality of Alcohol and Drug Abuse Patient Records regulations: The Federal rules restrict any use of the information to criminally investigate or prosecute any alcohol or drug abuse patient.[facility] CenterIn the event this information is protected by the Federal Confidentiality of Alcohol and Drug Abuse Patient Records regulations: The Federal rules restrict any use of the information to criminally investigate or prosecute any alcohol or drug abuse patient.[facility] CenterIn the event this information is protected by the Federal Confidentiality of Alcohol and Drug Abuse Patient Records regulations: The Federal rules restrict any use of the information to criminally investigate or prosecute any alcohol or drug abuse patient.[facility] CenterIn the event this information is protected by the Federal Confidentiality of Alcohol and Drug Abuse Patient Records regulations: The Federal rules restrict any use of the information to criminally investigate or prosecute any alcohol or drug abuse patient.[facility] CenterIn the event this information is protected by the Federal Confidentiality of Alcohol and Drug Abuse Patient Records regulations: The Federal rules restrict any use of the information to criminally investigate or prosecute any alcohol or drug abuse patient.[facility] CenterIn the event this information is protected by the Federal Confidentiality of Alcohol and Drug Abuse Patient Records regulations: The Federal rules restrict any use of the information to criminally investigate or prosecute any alcohol or drug abuse patient.[facility] CenterIn the event this information is protected by the Federal Confidentiality of Alcohol and Drug Abuse Patient Records regulations: The Federal rules restrict any use of the information to criminally investigate or prosecute any alcohol or drug abuse patient.[facility] CenterIn the event this information is protected by the Federal Confidentiality of Alcohol and Drug Abuse Patient Records regulations: The Federal rules restrict any use of the information to criminally investigate or prosecute any alcohol or drug abuse patient.[facility] CenterIn the event this information is protected by the Federal Confidentiality of Alcohol and Drug Abuse Patient Records regulations: The Federal rules restrict any use of the information to criminally investigate or prosecute any alcohol or drug abuse patient.[facility] CenterIn the event this information is protected by the Federal Confidentiality of Alcohol and Drug Abuse Patient Records regulations: The Federal rules restrict any use of the information to criminally investigate or prosecute any alcohol or drug abuse patient.[facility] CenterIn the event this information is protected by the Federal Confidentiality of Alcohol and Drug Abuse Patient Records regulations: The Federal rules restrict any use of the information to criminally investigate or prosecute any alcohol or drug abuse patient.[facility] CenterIn the event this information is protected by the Federal Confidentiality of Alcohol and Drug Abuse Patient Records regulations: The Federal rules restrict any use of the information to criminally investigate or prosecute any alcohol or drug abuse patient.[facility] CenterIn the event this information is protected by the Federal Confidentiality of Alcohol and Drug Abuse Patient Records regulations: The Federal rules restrict any use of the information to criminally investigate or prosecute any alcohol or drug abuse patient.[facility] CenterIn the event this information is protected by the Federal Confidentiality of Alcohol and Drug Abuse Patient Records regulations: The Federal rules restrict any use of the information to criminally investigate or prosecute any alcohol or drug abuse patient.[facility] CenterIn the event this information is protected by the Federal Confidentiality of Alcohol and Drug Abuse Patient Records regulations: The Federal rules restrict any use of the information to criminally investigate or prosecute any alcohol or drug abuse patient.[facility] CenterIn the event this information is protected by the Federal Confidentiality of Alcohol and Drug Abuse Patient Records regulations: The Federal rules restrict any use of the information to criminally investigate or prosecute any alcohol or drug abuse patient.[facility] CenterIn the event this information is protected by the Federal Confidentiality of Alcohol and Drug Abuse Patient Records regulations: The Federal rules restrict any use of the information to criminally investigate or prosecute any alcohol or drug abuse patient.[facility] CenterIn the event this information is protected by the Federal Confidentiality of Alcohol and Drug Abuse Patient Records regulations: The Federal rules restrict any use of the information to criminally investigate or prosecute any alcohol or drug abuse patient.[facility] CenterIn the event this information is protected by the Federal Confidentiality of Alcohol and Drug Abuse Patient Records regulations: The Federal rules restrict any use of the information to criminally investigate or prosecute any alcohol or drug abuse patient.[facility] CenterIn the event this information is protected by the Federal Confidentiality of Alcohol and Drug Abuse Patient Records regulations: The Federal rules restrict any use of the information to criminally investigate or prosecute any alcohol or drug abuse patient.[facility] CenterIn the event this information is protected by the Federal Confidentiality of Alcohol and Drug Abuse Patient Records regulations: The Federal rules restrict any use of the information to criminally investigate or prosecute any alcohol or drug abuse patient.[facility] the event this information is protected by the Federal Confidentiality of Alcohol and Drug Abuse Patient Records regulations: The Federal rules restrict any use of the information to criminally investigate or prosecute any alcohol or drug abuse patient.[facility] CenterIn the event this information is protected by the Federal Confidentiality of Alcohol and Drug Abuse Patient Records regulations: The Federal rules restrict any use of the information to criminally investigate or prosecute any alcohol or drug abuse patient.[facility] CenterIn the event this information is protected by the Federal Confidentiality of Alcohol and Drug Abuse Patient Records regulations: The Federal rules restrict any use of the information to criminally investigate or prosecute any alcohol or drug abuse patient.[facility] CenterIn the event this information is protected by the Federal Confidentiality of Alcohol and Drug Abuse Patient Records regulations: The Federal rules restrict any use of the information to criminally investigate or prosecute any alcohol or drug abuse patient.[facility] CenterIn the event this information is protected by the Federal Confidentiality of Alcohol and Drug Abuse Patient Records regulations: The Federal rules restrict any use of the information to criminally investigate or prosecute any alcohol or drug abuse patient.[facility] CenterIn the event this information is protected by the Federal Confidentiality of Alcohol and Drug Abuse Patient Records regulations: The Federal rules restrict any use of the information to criminally investigate or prosecute any alcohol or drug abuse patient.[facility] CenterIn the event this information is protected by the Federal Confidentiality of Alcohol and Drug Abuse Patient Records regulations: The Federal rules restrict any use of the information to criminally investigate or prosecute any alcohol or drug abuse patient.[facility] CenterIn the event this information is protected by the Federal Confidentiality of Alcohol and Drug Abuse Patient Records regulations: The Federal rules restrict any use of the information to criminally investigate or prosecute any alcohol or drug abuse patient.[facility] CenterIn the event this information is protected by the Federal Confidentiality of Alcohol and Drug Abuse Patient Records regulations: The Federal rules restrict any use of the information to criminally investigate or prosecute any alcohol or drug abuse patient.[facility] CenterIn the event this information is protected by the Federal Confidentiality of Alcohol and Drug Abuse Patient Records regulations: The Federal rules restrict any use of the information to criminally investigate or prosecute any alcohol or drug abuse patient.[facility] CenterIn the event this information is protected by the Federal Confidentiality of Alcohol and Drug Abuse Patient Records regulations: The Federal rules restrict any use of the information to criminally investigate or prosecute any alcohol or drug abuse patient.[facility] CenterIn the event this information is protected by the Federal Confidentiality of Alcohol and Drug Abuse Patient Records regulations: The Federal rules restrict any use of the information to criminally investigate or prosecute any alcohol or drug abuse patient.[facility] CenterIn the event this information is protected by the Federal Confidentiality of Alcohol and Drug Abuse Patient Records regulations: The Federal rules restrict any use of the information to criminally investigate or prosecute any alcohol or drug abuse patient.[facility] CenterIn the event this information is protected by the Federal Confidentiality of Alcohol and Drug Abuse Patient Records regulations: The Federal rules restrict any use of the information to criminally investigate or prosecute any alcohol or drug abuse patient.[facility] CenterIn the event this information is protected by the Federal Confidentiality of Alcohol and Drug Abuse Patient Records regulations: The Federal rules restrict any use of the information to criminally investigate or prosecute any alcohol or drug abuse patient.[facility] CenterIn the event this information is protected by the Federal Confidentiality of Alcohol and Drug Abuse Patient Records regulations: The Federal rules restrict any use of the information to criminally investigate or prosecute any alcohol or drug abuse patient.[facility] CenterIn the event this information is protected by the Federal Confidentiality of Alcohol and Drug Abuse Patient Records regulations: The Federal rules restrict any use of the information to criminally investigate or prosecute any alcohol or drug abuse patient.[facility] CenterIn the event this information is protected by the Federal Confidentiality of Alcohol and Drug Abuse Patient Records regulations: The Federal rules restrict any use of the information to criminally investigate or prosecute any alcohol or drug abuse patient.[facility] CenterIn the event this information is protected by the Federal Confidentiality of Alcohol and Drug Abuse Patient Records regulations: The Federal rules restrict any use of the information to criminally investigate or prosecute any alcohol or drug abuse patient.[facility] CenterIn the event this information is protected by the Federal Confidentiality of Alcohol and Drug Abuse Patient Records regulations: The Federal rules restrict any use of the information to criminally investigate or prosecute any alcohol or drug abuse patient.[facility] Reason for Visit (unrecogniz ed section and content) Reason Comments Colposcopy Specialty Diagnoses / Procedures Referred By Contac t Referred To Contact [facility] Diagnoses Cervical high risk HPV (human papillomavirus) test positive Procedures COLPOSCOPY COLPOSCOPY CERVIX BX CERVIX & [place] [address] [place] [address] [address] Referral ID Status Reason Start Date Expiration Date V isits Requested Visits Authorized [id number] Closed Auto-Generate d Referral 02/08/2024 02/07/2025 1 1 Reason Comments Treatment Planning Reason Comments upset hasn't heard anything reg us Reason Comments cd2 ret call Specialty Diagnoses / Procedures Referred By Contac t Referred To Contact [facility] Diagnoses Encounter for fertility planning Procedures [facility] PELVIC NONOBSTETRIC IMAGE DCMTN LIMITED/F/U Kobi Weiner PA-C [address] [place] [address] [address] Referral ID Status Reason Start Date Expiration Date Visits Requested Visits Authorized [id number] Authorized Benefit Check 10/30/2022 09/13/2023 3 3 Reason Comments metformin refill / completely out Reason Comments Patient Question Reason Comments New IVF Reason Comments Medication Problem Reason Comments cd2 , refill prescription Reason Comments Patient Question Reason Comments Infertility Specialty Diagnoses / Procedures Referred By Contac t Referred To Contact [facility] Diagnoses Encounter for fertility testing Procedures FOLLICULAR US I US PELVIC NONOBSTETRIC IMAGE DCMTN LIMITED/F/U Leonel Cabezas APRN.PONY RIDE OPERATOR [address] [place] [address] [facility] [address] [place] [address] Referral ID Status Reason Start Date Expiration Date V isits Requested Visits Authorized [id number] Closed Auto-Generate d Referral 05/13/2023 09/13/2023 6 1 Reason Comments Returning Patient's Call Reason Comments Patient Update Specialty Diagnoses / Procedures Referred By Contac t Referred To Contact [facility] Diagnoses Encounter for fertility planning Procedures FOLLICULAR US I US PELVIC NONOBSTETRIC IMAGE DCMTN LIMITED/F/U Kobi Weiner PA-C [address] [place] [address] [facility] [address] [place] [address] Referral ID Status Reason Start Date Expiration Date V isits Requested Visits Authorized [id number] Closed Benefit Check 10/30/2022 09/13/2023 3 3 Specialty Diagnoses / Procedures Referred By Contac t Referred To Contact [facility] Diagnoses Primary female infertility Procedures FOLLICULAR US [facility] US PELVIC NONOBSTETRIC IMAGE DCMTN LIMITED/F/U Radha Gilliam MD [address] [place] [address] [facility] [address] [place] [address] Referral ID Status Reason Start Date Expiration Date V isits Requested Visits Authorized [id number] Closed Auto-Generate d Referral 06/17/2023 06/16/2024 6 1 Reason Comments Refill Request Specialty Diagnoses / Procedures Referred By Contac t Referred To Contact [facility] Diagnoses Encounter for fertility testing Procedures XR HYSTEROSALPINGOGRAM CATH & SALINE/CONTRAST SONOHYSTER/HYSTEROSALPI HYSTEROSALPINGOGRAPHY RS&[place] [address] [place] [address] [place] [address] Referral ID Status Reason Start Date Expiration Date Visits Requested Visits Authorized [id number] Authorized Benefit Check 03/25/2023 09/13/2023 4 3 Reason Comments New Patient Specialty Diagnoses / Procedures Referred By Contac t Referred To Contact [facility] Diagnoses Female infertility Procedures FOLLICULAR US WHI US PELVIC NONOBSTETRIC IMAGE DCMTN LIMITED/F/U Leonel Cabezas, ANGELITA.PONY RIDE OPERATOR [address] [place] [address] [address] [place] [address] Referral ID Status Reason Start Date Expiration Date V isits Requested Visits Authorized [id number] Closed Auto-Generate d Referral 08/18/2023 08/17/2024 6 1 Reason Comments Initial Visit Reason Comments US Specialty Diagnoses / Procedures Referred By Contac t Referred To Contact [facility] Diagnoses Encounter to determine viability of , fetus 1 of multiple gestation Procedures OBSTETRIC ULTRASOUND WHI US PREG UTERUS AFTER 1ST TRIMEST / GESTATION Provider, Disk Recoater Transcribe [address] [place] [address] Referral ID Status Reason Start Date Expiration Date V isits Requested Visits Authorized [id number] Closed Auto-Generate d Referral 10/22/2023 10/21/2024 1 1 Reason Comments Non Clinical Advisor - Other Pt loss Reason Comments Post Op Reason Comments Patient Question amarilis pt ret call pls leave message on he my chart Referral ID Status Reason Start Date Expiration Date V isits Requested Visits Authorized [id number] Closed Auto-Generate d Referral 12/29/2023 12/28/2024 6 [...] Referred By Contac t Referred To Contact [facility] Diagnoses Female infertility Procedures FOLLICULAR US WHI US PELVIC NONOBSTETRIC IMAGE DCMTN LIMITED/F/U Kobi Weiner PA-C [address] [place] [address] [facility] [address] [place], [place] [id number] Referral ID Status Reason Start Date Expiration Date V isits Requested Visits Authorized [id number] Closed Benefit Check 03/09/2024 03/09/2025 3 1 Specialty Diagnoses / Procedures Referred By Contac t Referred To Contact [facility] Diagnoses Fertility testing Procedures SONOHYSTEROGRAPHY (SIS) US [facility] SALINE INFUS SONOHYSTEROGRAPHY W/COLOR DOPPLER CATH & SALINE/CONTRAST SONOHYSTER/HYSTEROSALPI HYSTEROSALPINGOGRAPHY RS&[place] [address] [place] [address] [facility] [address] [place] [address] Referral ID Status Reason Start Date Expiration Date Visits Requested Visits Authorized [id number] Authorized Benefit Check 03/09/2024 09/13/2024 3 3 Reason Comments Next Steps Specialty Diagnoses / Procedures Referred By Contac t Referred To Contact [facility] Diagnoses Encounter for fertility testing Procedures OFFICE HYSTEROSCOPY HYSTEROSCOPY BX ENDOMETRIUM&/POLYPC W/WO D&C HYSTEROSCOPY, DIAGNOSTIC ([place] [address] [place] [address] [facility] [address] [place] [address] Referral ID Status Reason Start Date Expiration Date V isits Requested Visits Authorized [id number] Closed Benefit Check 05/05/2024 05/05/2025 2 1 Specialty Diagnoses / Procedures Referred By Contac t Referred To Contact [facility] Diagnoses Primary female infertility Procedures FOLLICULAR US WHI US PELVIC NONOBSTETRIC IMAGE DCMTN LIMITED/F/[place] [address] [place] [address] [address] Referral ID Status Reason Start Date Expiration Date V isits Requested Visits Authorized [id number] Closed Auto-Generate d Referral 05/26/2024 05/24/2025 5 1 Reason Comments Next Steps Specialty Diagnoses / Procedures Referred By Contac t Referred To Contact [facility] Diagnoses Female infertility Procedures FOLLICULAR US I US PELVIC NONOBSTETRIC IMAGE DCMTN LIMITED/F/U Sushila Levy, NURSE GENERAL DUTY.PONY RIDE OPERATOR [address] [facility] [address] [place] [address] [address] Referral ID Status Reason Start Date Expiration Date V isits Requested Visits Authorized [id number] Closed Auto-Generate d Referral 07/04/2024 07/04/2025 4 1 Reason Comments LMP 08/06/24/ set up baselines for super ov Referral ID Status Reason Start Date Expiration Date V isits Requested Visits Authorized [id number] Closed Auto-Generate d Referral 08/08/2024 08/08/2025 4 1 Reason Comments Appointment LMP 09/07/24/ set up medicated cycle Called back today is day 3/ set up super ov Specialty Diagnoses / Procedures Referred By Contac t Referred To Contact [facility] Diagnoses Female infertility Procedures FOLLICULAR US WHI US PELVIC NONOBSTETRIC IMAGE DCMTN LIMITED/F/[place] [address] [place] [address] [address] Referral ID Status Reason Start Date Expiration Date V isits Requested Visits Authorized [id number] Closed Benefit Check 09/09/2024 09/09/2025 3 1 Specialty Diagnoses / Procedures Referred By Contac t Referred To Contact [facility] Diagnoses Female infertility Procedures FOLLICULAR US WHI US PELVIC NONOBSTETRIC IMAGE DCMTN LIMITED/F/[place] [address] [place] [address] [facility] [address] [place] [address] Reason Onset Date Comments Refill Request 10/03/2024 Reason Comments Back Pain Lower to mid Reason Comments needs to schedule us for so cycle Referral ID Status Reason Start Date Expiration Date Visits Requested Visits Authorized [id number] Authorized Patient Cleared INN/SMCP Payor Auth Obtained [...] Referred By Kt t Referred To Contact [facility] Diagnoses Encounter for fertility testing Procedures FOLLICULAR US [facility] US PELVIC NONOBSTETRIC IMAGE DCMTN LIMITED/F/U Leonel Cabezas, ANGELITA.PONY RIDE OPERATOR [address] [place] [address] Phone: tel: fax: [facility] [address] [place] [address] Referral ID Status Reason Start Date Expiration Date V isits Requested Visits Authorized [id number] Closed Auto-Generate d Referral 11/14/2024 11/11/2025 6 1 Reason Comments Cyst INCLUSION CYST, REF BY DR. MCKEON Specialty Diagnoses / Procedures Referred By Kt t Referred To Contact General Surgery Diagnoses Inclusion cyst David Mckeon MD [address] [facility] [place] [address] Phone: tel: fax: Millie Ellis MD [address] [place] [address] Phone: tel: fax: Referral ID Status Reason Start Date Expiration Date V isits Requested Visits Authorized [id number] Closed Specialty Services Required 11/08/2024 11/08/2025 1 1 Specialty Diagnoses / Procedures Referred By Contrica t Referred To Contact [facility] Diagnoses Female infertility Procedures FOLLICULAR US I US PELVIC NONOBSTETRIC IMAGE DCMTN LIMITED/F/[place] [address] [place] [address] Phone: tel: fax: [facility] [address] [place] [address] Referral ID Status Reason Start Date Expiration Date Visits Requested Visits Authorized [id number] Authorized Patient Cleared INN/SMCP Payor Auth Obtained Benefit Check 4 09/09/2025 8 8 Reason Comments progesterone shots Reason Comments Cyst INCISION CHECK, PATH OLOGY Reason Comments +hpt on darwin re labwork Mary Ann / [place] please call pt re +hpt Reason Comments +hpt lmp 11/11 did super ov cycle req lab work Reason Comments Care Teams (unrecognized sec tion and content) Operational Review Sergeant Relationship Specialty Start Date End Date Saturnino [address] [place] [address] Referring PHOTOGRAPHIC EQUIPMENT ASSEMBLER 10/04/20 Operational Review Sergeant Relationship Specialty Start Date End Date [place] [address] Referring PHOTOGRAPHIC EQUIPMENT ASSEMBLER 10/04/20 Operational Review Sergeant Relationship Specialty Start Date End Date [place] [address] Referring PHOTOGRAPHIC EQUIPMENT ASSEMBLER 10/04/20 Operational Review Sergeant Relationship Specialty Start Date End Date [place] [address] Referring PHOTOGRAPHIC EQUIPMENT ASSEMBLER 10/04/20 Operational Review Sergeant Relationship Specialty Start Date End Date [address] [address] Referring PHOTOGRAPHIC EQUIPMENT ASSEMBLER 10/04/20 Operational Review Sergeant Relationship Specialty Start Date End Date [place] [address] Referring PHOTOGRAPHIC EQUIPMENT ASSEMBLER 10/04/20 Operational Review Sergeant Relationship Specialty Start Date End Date Courtney Saturnino [address] [place] [address] Referring PHOTOGRAPHIC EQUIPMENT ASSEMBLER 10/04/20 Operational Review Sergeant Relationship Specialty Start Date End Date Saturnino Valdez [address] [place] [address] Referring PHOTOGRAPHIC EQUIPMENT ASSEMBLER 10/04/20 Operational Review Sergeant Relationship Specialty Start Date End Date Saturnino Valdez Jose [address] [place] [address] Referring PHOTOGRAPHIC EQUIPMENT ASSEMBLER 10/04/20 Operational Review Sergeant Relationship Specialty Start Date End Date Saturnino Valdez Jose [address] [place] [address] Referring PHOTOGRAPHIC EQUIPMENT ASSEMBLER 10/04/20 Operational Review Sergeant Relationship Specialty Start Date End Date Saturnino Valdez [address] [place] [address] Referring PHOTOGRAPHIC EQUIPMENT ASSEMBLER 10/04/20 Operational Review Sergeant Relationship Specialty Start Date End Date Saturnino Valdez [address] [place] [address] Referring PHOTOGRAPHIC EQUIPMENT ASSEMBLER 10/04/20 Operational Review Sergeant Relationship Specialty Start Date End Date Saturnino Valdez [address] [place] [address] Referring PHOTOGRAPHIC EQUIPMENT ASSEMBLER 10/04/20 Operational Review Sergeant Relationship Specialty Start Date End Date Saturnino Valdez [address] [place] [address] Referring PHOTOGRAPHIC EQUIPMENT ASSEMBLER 10/04/20 Operational Review Sergeant Relationship Specialty Start Date End Date Saturnino Valdez [address] [place] [address] Referring PHOTOGRAPHIC EQUIPMENT ASSEMBLER 10/04/20 Operational Review Sergeant Relationship Specialty Start Date End Date Saturnino Valdez [address] [place] [address] Referring PHOTOGRAPHIC EQUIPMENT ASSEMBLER 10/04/20 Operational Review Sergeant Relationship Specialty Start Date End Date Saturnino Valdez [address] [place] [address] Referring PHOTOGRAPHIC EQUIPMENT ASSEMBLER 10/04/20 Operational Review Sergeant Relationship Specialty Start Date End Date Saturnino Valdez [address] [place] [address] Referring PHOTOGRAPHIC EQUIPMENT ASSEMBLER 10/04/20 Operational Review Sergeant Relationship Specialty Start Date End Date Saturnino Valdez [address] [place] [address] Referring PHOTOGRAPHIC EQUIPMENT ASSEMBLER 10/04/20 Operational Review Sergeant Relationship Specialty Start Date End Date Saturnino Valdez [address] [place] [address] Referring PHOTOGRAPHIC EQUIPMENT ASSEMBLER 10/04/20 Operational Review Sergeant Relationship Specialty Start Date End Date Saturnino Valdez [address] [place] [address] Referring PHOTOGRAPHIC EQUIPMENT ASSEMBLER 10/04/20 Operational Review Sergeant Relationship Specialty Start Date End Date Saturnino Valdez [address] [place] [address] Referring PHOTOGRAPHIC EQUIPMENT ASSEMBLER 10/04/20 Operational Review Sergeant Relationship Specialty Start Date End Date Saturnino Valdez [address] [place] [address] Referring PHOTOGRAPHIC EQUIPMENT ASSEMBLER 10/04/20 Operational Review Sergeant Relationship Specialty Start Date End Date Saturnino Valdez [address] [place] [address] Referring PHOTOGRAPHIC EQUIPMENT ASSEMBLER 10/04/20 Operational Review Sergeant Relationship Specialty Start Date End Date ValdezSaturnino [address] [place] [address] Referring PHOTOGRAPHIC EQUIPMENT ASSEMBLER 10/04/20 Team Status: Active Member Role Status Dates David Mckeon MD Primary Care Provider Active Team Status: Inactive Member Role Status Dates David Mckeon MD Primary Care Provider Active Start: September 30, 2023 End: October 01, 2023 Charly Matute DO Emergency Provider Active Sta rt: September 30, 2023 End: October 01, 2023 Operational Review Sergeant Relationship Specialty Start Date End Date David Mckeon MD [address] [facility] [place] [address] PCP - General Family Medicine 10/16/23 Operational Review Sergeant Relationship Specialty Start Date End Date Saturnino Valdez [address] [place] [address] Referring Motor Bike Mechanic 10/04/20 Operational Review Sergeant Relationship Specialty Start Date End Date Saturnino Valdez [address] [place] [address] Referring Motor Bike Mechanic 10/04/20 Operational Review Sergeant Relationship Specialty Start Date End Date Saturnino Valdez [address] [place] [address] Referring Motor Bike Mechanic 10/04/20 Operational Review Sergeant Relationship Specialty Start Date End Date Saturnino Valdez [address] [place] [address] Referring Motor Bike Mechanic 10/04/20 Operational Review Sergeant Relationship Specialty Start Date End Date Saturnino Valdez [address] [place] [address] Referring Motor Bike Mechanic 10/04/20 Operational Review Sergeant Relationship Specialty Start Date End Date Saturnino Valdez [address] [place] [address] Referring Motor Bike Mechanic 10/04/20 Operational Review Sergeant Relationship Specialty Start Date End Date Saturnino Valdez [address] [place] [address] Referring Motor Bike Mechanic 10/04/20 Operational Review Sergeant Relationship Specialty Start Date End Date Saturnino Valdez [address] [place] [address] Referring Motor Bike Mechanic 10/04/20 Operational Review Sergeant Relationship Specialty Start Date End Date Saturnino Valdez [address] [place] [address] Referring Motor Bike Mechanic 10/04/20 Operational Review Sergeant Relationship Specialty Start Date End Date Saturnino Valdez [address] [place] [address] Referring Motor Bike Mechanic 10/04/20 Operational Review Sergeant Relationship Specialty Start Date End Date Saturnino Valdez [address] [place] [address] Referring Motor Bike Mechanic 10/04/20 Operational Review Sergeant Relationship Specialty Start Date End Date Saturnino Valdez [address] [place] [address] Referring Motor Bike Mechanic 10/04/20 Operational Review Sergeant Relationship Specialty Start Date End Date Saturnino Valdez [address] [place] [address] Referring Motor Bike Mechanic 10/04/20 Operational Review Sergeant Relationship Specialty Start Date End Date Saturnino Valdez [address] [place] [address] Referring Motor Bike Mechanic 10/04/20 Operational Review Sergeant Relationship Specialty Start Date End Date Saturnino Valdez [address] [place] [address] Referring Motor Bike Mechanic 10/04/20 Operational Review Sergeant Relationship Specialty Start Date End Date Saturnino Valdez [address] [place] [address] Referring Motor Bike Mechanic 10/04/20 Operational Review Sergeant Relationship Specialty Start Date End Date Saturnino Valdez [address] [place] [address] Referring Motor Bike Mechanic 10/04/20 Operational Review Sergeant Relationship Specialty Start Date End Date Saturnino Valdez [address] [place] [address] Referring Motor Bike Mechanic 10/04/20 Operational Review Sergeant Relationship Specialty Start Date End Date Saturnino Valdez [address] [place] [address] Referring Motor Bike Mechanic 10/04/20 Operational Review Sergeant Relationship Specialty Start Date End Date Saturnino Valdez [address] [place] [address] Referring Motor Bike Mechanic 10/04/20 Operational Review Sergeant Relationship Specialty Start Date End Date Saturnino Valdez [address] [place] [address] Referring Motor Bike Mechanic 10/04/20 Operational Review Sergeant Relationship Specialty Start Date End Date Saturnino Valdez [address] [place] [address] Referring Motor Bike Mechanic 10/04/20 Operational Review Sergeant Relationship Specialty Start Date End Date Saturnino Valdez [address] [place] [address] Referring Motor Bike Mechanic 10/04/20 Operational Review Sergeant Relationship Specialty Start Date End Date Saturnino Valdez [address] [place] [address] Referring Motor Bike Mechanic 10/04/20 Operational Review Sergeant Relationship Specialty Start Date End Date Saturnino Valdez [address] [place] [address] Referring Motor Bike Mechanic 10/04/20 Operational Review Sergeant Relationship Specialty Start Date End Date Saturnino Valdez [address] [place] [address] Referring Motor Bike Mechanic 10/04/20 Operational Review Sergeant Relationship Specialty Start Date End Date Saturnino Valdez [address] [place] [address] Referring Motor Bike Mechanic 10/04/20 Operational Review Sergeant Relationship Specialty Start Date End Date Saturnino Valdez [address] [place] [address] Referring Motor Bike Mechanic 10/04/20 Operational Review Sergeant Relationship Specialty Start Date End Date David Mckeon MD [address] [place] [address] PCP - General Family Medicine 08/27/17 Operational Review Sergeant Relationship Specialty Start Date End Date Saturnino Valdez [address] [place] [address] Referring Motor Bike Mechanic 10/04/20 Operational Review Sergeant Relationship Specialty Start Date End Date CourtneySaturnino [address] [place] [address] Referring Motor Bike Mechanic 10/04/20 Operational Review Sergeant Relationship Specialty Start Date End Date David Mckeon MD [address] [place] [address] PCP - General Family Medicine 08/27/17 Operational Review Sergeant Relationship Specialty Start Date End Date David Mckeon MD [address] [place] [address] PCP - [facility] 08/27/17 Operational Review Sergeant Relationship Specialty Start Date End Date David Mckeon MD [address] [place] [address] PCP - [facility] 08/27/17 Operational Review Sergeant Relationship Specialty Start Date End Date David Mckeon MD [address] [place] [address] PCP - [facility] 08/27/17 Operational Review Sergeant Relationship Specialty Start Date End Date David Mckeon MD [address] [place] [address] PCP - [facility] 08/27/17 Operational Review Sergeant Relationship Specialty Start Date End Date David Mckeon MD [address] [place] [address] PCP - [facility] 08/27/17 Operational Review Sergeant Relationship Specialty Start Date End Date David Mckeon MD [address] [place] [address] PCP - [facility] 08/27/17 Operational Review Sergeant Relationship Specialty Start Date End Date Saturnino Valdez [address] [place] [address] Referring Motor Bike Mechanic 10/04/20 Operational Review Sergeant Relationship Specialty Start Date End Date David Mckeon MD [address] [place] [address] PCP - General Family Medicine 08/27/17 Operational Review Sergeant Relationship Specialty Start Date End Date Saturnino Valdez [address] [place] [address] Referring Motor Bike Mechanic 10/04/20 Team Status: Inactive Member Role Status Dates David Mckeon MD Primary Care Provider Active Start: November 25, 2024 End: November 25, 2024 Sushila Chacon APRN Attending Provider Active Start: November 25, 2024 End: November 25, 2024 Operational Review Sergeant Relationship Specialty Start Date End Date Saturnino Valdez [address] [place] [address] Referring Motor Bike Mechanic 10/04/20 Operational Review Sergeant Relationship Specialty Start Date End Date Saturnino Valdez [address] [place] [address] Referring Motor Bike Mechanic 10/04/20 Operational Review Sergeant Relationship Specialty Start Date End Date David Mckeon MD PCP - General Family Medicine 10/16/23 Operational Review Sergeant Relationship Specialty Start Date End Date David [...] BE BASED ON THE PRIMARY CLINICAL RECORDS. [facility] [employer] [facility]. provides no warranty or guarantee of the accuracy or completeness of information in this document.
== END 2025-01-24 10:47 | disposition home or self-care (01) ==
PROVIDERS: PCP Family Medicine; Visit Provider Obstetrics & Gynecology
PROC: (CPT 01965; principal; 2025-01-24 07:30)
DX: O02.1 Missed abortion (principal); G47.33 Obstructive sleep apnea (adult) (pediatric); Z90.49 Acquired absence of other specified parts of digestive tract; Z87.891 Personal history of nicotine dependence; K21.9 Gastro-esophageal reflux disease without esophagitis
CPT/HCPCS: 01965; 59820; 36415; 82948; 84702; 85025; 86900; 86901; 88305; J0131; J1100; J1171; J1885; J2250; J2405; J2590; J2704; Q0169

== ENCOUNTER 2025-01-30 20:33 | Emergency (ER) | payer OTHER, SELFPAY ==
[2025-01-30 20:36] VITALS: BP 170/108; PULSE 68; TEMP 37.1; O2SAT 95; BMI 44.6
--- OUTSIDE RECORDS SUMMARY | 2025-01-30 20:39 | XMS_ITS | CCD ---
Author Organization [facility] Care Team Providers Care Shuttle Fitting Supervisor Name Role Phone AMMY, DR HERNANDEZ Primary [...] Primary Care Unavailable SATURNINO VALDEZ Admitting Unavailable COURTNEY, SATURNINO Attending Unavailable SATURNINO VALDEZ Consulting Unavailable Saturnino Valdez Unavailable Saturnino Valdez Unavailable Saturnino Valdez Unavailable Saturnino Valdez Unavailable MD David Mckeon Primary Care Provider DO Charly Matute Emergency Provider David Mckeon MD Primary Care Provider DMITRY MENCHACA Attending UnavailKOBI Hough Attending Unavailable DMITRY MENCHACA Attending UnavailDMITRY Beltran Admitting UnavailKOBI Hough Attending Unavailable DMITRY MENCHACA Attending UnavailDavid Barros MD Primary Care Provider MICHEL JOSEPH Referring Unavailable DAVID MCKEON Primary Care Unavailable DAVID MCKEON Referring Unavailable DAVID MCKEON Primary Care Unavailable MILLIE ELLIS Referring Unavailable DEFRANCE, DAVID Herbert Primary Care Unavailable VIOLETA ESQUIVEL Attending Unavailable DEFRANCE, DAVID Herbert Referring Unavailable DEFRANCE, DAVID Herbret Primary Care Unavailable DEFRANCE, DAVID Herbert Attending Unavailable DEFRANCE, DAVID Herbert Referring Unavailable DEFRANCE, DAVID Herbert Primary Care Unavailable DEFRANCE, DAVID Herbert Attending Unavailable DEFRANCE, DAVID Herbert Referring Unavailable DEFRANCE, DAVID Herbert Primary Care Unavailable DEFRANCE, DAVID Herbert Attending Unavailable DEFRANCE, DAVID Herbert Referring Unavailable DEFRANCE, DAVID Herbert Primary Care Unavailable MILLIE ELLIS Attending Unavailable DEFRANCE, DAVID Herbert Referring Unavailable DEFRANCE, DAVID Herbert Primary Care Unavailable ABIDA DUCKWORTH Attending Unavailable DEFRANCE, DAVID Herbert Referring Unavailable DEFRANCE, DAVID Herbert Primary Care Unavailable Defrance David REGALADO Primary Care Provider MINDZORA, SUSHILA Referring Unavailable JOSEPH MICHEL Referring Unavailable JOSEPH MICHEL Referring Unavailable JOSEPH MICHEL Referring Unavailable JOSEPH MICHEL Referring Unavailable MINDZORA, SUSHILA Referring Unavailable MINDZORA, SUSHILA Referring Unavailable MINDZORA, SUSHILA Referring Unavailable MINDZORA, SUSHILA Referring Unavailable JOSEPH MICHEL Referring Unavailable REHMER, ARLEY Referring Unavailable JOSEPH MICHEL Referring Unavailable JOSEPH MICHEL Referring Unavailable JOSEPH MICHEL Referring Unavailable JOSEPH MICHEL Referring Unavailable ATTARAN, RADHA Referring Unavailable ATTARAN, RADHA Referring Unavailable DUDZIAK, LEONEL Referring Unavailable MINDZORA, SUSHILA Referring Unavailable DUDZIAK, LEONEL Referring Unavailable MINDZORA, SUSHILA Referring Unavailable JOSEPH, MICHEL Referring Unavailable MINDZORA, SUSHILA Referring Unavailable MINDZORA, SUSHILA Referring Unavailable MINDZORA, SUSHILA Referring Unavailable JOSEPH, MICHEL Referring Unavailable DUDZIAK, LEONEL Referring Unavailable MINDZORA, SUSHILA Referring Unavailable REHMER, ARLEY Attending Unavailable JOSEPH MICHEL Referring Unavailable DUDZIAK, LEONEL Referring Unavailable JOSEPH, MICHEL Referring Unavailable JOSEPH MICHEL Attending Unavailable JOSEPH MICHEL Attending Unavailable MINDZORA, SUSHILA Referring Unavailable BRZOZOWSKIPEPE Attending Unavailable DUDZIAK, LEONEL Referring Unavailable MINDZORA, SUSHILA Referring Unavailable JOSEPH, MICHEL Referring Unavailable JOSEPH, MICHEL Attending Unavailable JOSEPH, MICHEL Referring Unavailable MINDZORA, SUSHILA Attending Unavailable SMOLEN, KOBI Referring Unavailable SMOLEN, KOBI Referring Unavailable REHMER, ARLEY Attending Unavailable MINDZORA, SUSHILA Referring Unavailable REHMER, ARLEY Attending Unavailable MINDZORA, SUSHILA Referring Unavailable JOSEPH, MICHEL Attending Unavailable MINDZORA, SUSHILA Referring Unavailable ATTARAN, RADHA Attending Unavailable MINDZORA, SUSHILA Referring Unavailable ATTARAN, RADHA Attending Unavailable JOSEPH, MICHEL Referring Unavailable JOSEPH, MICHEL Referring Unavailable JOSEPH, MICHEL Referring Unavailable JOSEPH, MICHEL Referring Unavailable ATTARAN, RADHA Attending Unavailable MINDZORA, SUSHILA Referring Unavailable OMARI, JAZMINE Attending Unavailable JOSEPH, MICHEL Referring Unavailable REHMER, ARLEY Attending Unavailable JOSEPH, MICHEL Referring Unavailable JOSEPH, MICHEL Attending Unavailable JOSEPH, MICHEL Referring Unavailable SMOLEN, KOBI Attending Unavailable SMOLEN, KOBI Referring Unavailable SMOLEN, KOBI Referring Unavailable JOSEPH, MICHEL Referring Unavailable DUDZILANDON, LEONEL Referring Unavailable BRZOZOWSKI, PEPE Referring Unavailable BRZOZOWSKI, PEPE Attending Unavailable JOSEPH, MICHEL Attending Unavailable SELF Referring Unavailable JOSEPH, MICHEL Referring Unavailable FLORO, LEONEL L Attending Unavailable Conor Cortes Attending Unavailable Álvaro Cortesy Admitting Unavailable Conor Cortes DO Attending Provider Allergies Allergy Classification Reported Allergen(s) Allergy Type Date of Onset Reaction(s) Facility Penicillins (antibiotic) (4 sources) Amoxicillin Drug Allergy 10-15-2020 [facility] Work Phone: (6 sources) Amoxicillin; Translations: [AMOXICILLIN] Drug Allergy 12-29-2013 [facility] Repository (18 sources) Penicillins; Translations: [PENICILLINS] Drug allergy (disorder) 12-29-2013 [facility] Repository (1 source) Penicillins Drug Allergy 10-15-2020 [facility] (20 sources) Penicillins Drug Allergy 08-27-2017 [facility] (20 sources) Amoxicillin Drug Allergy 05-15-2009 [facility] (7 sources) Penicillin G Drug Allergy 10-16-2023 [facility] (6 sources) Penicillins Drug Allergy 10-15-2020 [facility] (1 source) Penicillins Drug allergy (disorder) 11-25-2024 [facility] Repository Medications Current Medications Medication Drug Class(es) Dates [...] once daily. cephalexin 500 mg oral capsule (7 sources) Cephalosporin Antibacterial Start: End: 5 take 2 capsules by mouth in the [...] Discontinued 250 MG PO Four times daily 28 October 01, 2023 1:00am November 25, 2024 4:55pm [...] tablet 2 10/17/2019 11/04/2023 Discontinued chorionic gonadotropin 20624 unt/ml injectable solution (20 sources) Gonadotropin Start: [...] Comment on above: Take 1 tablet by nidia th daily with breakfast. Take 1 tablet by nidia th once daily. ergocalciferol 1.25 mg oral [...] on above: Take 3 tablets by mo uth once daily. Take 4 tablets by mo uth once daily. Take 4 tablets by mo uth once daily. On cycle days 3-7 metFORMIN hydrochloride 500 mg oral tablet (20 sources) Biguanide Start: 10-06-2024 take 1 tablet by mouth once daily Metformin 500 mg tablet Active 500 MG PO Daily November 25, 2024 12:00am Start: 10-06-2024 End: 11-08-2024 take 1 tablet by mouth in the morning metFORMIN (Glucophage) 500 MG tablet Take 500 mg by mouth in the morning and 500 mg in the evening. 10/06/2024 Active Start: 06-10-2024 End: 09-08-2024 take 1 tablet [...] Comment on above: Take 1 tablet by nidia th twice daily with meals. TAKE ONE TABLET BY M OUTH TWICE A DAY WITH MEALS TAKE 1 TABLET BY NIDIA TH TWICE DAILY WITH MEALS Take one(1) tablet t wo(2) times daily. Take 1 tablet by nidia th two times a day. NON FORMULARY [...] 10/15/2024 Active MV-Min-Fe Fum-FA-DHA ( 1 PO) (5 sources) MV-Min- Fe Fum-FA-DHA ( 1 PO) Take by mouth Active progesterone 200 mg oral capsule (18 sources) Progesterone Start: 11-25-2024 take 1 capsule by mouth once daily [...] hold for tiZANidine 4 mg oral tablet (7 sources) Central alpha-2 Adrenergic Agonist Start: 11-25-2024 take 1 tablet by mouth once daily at bedtime Tizanidine 4 mg tablet Active 4 MG PO Daily at bedtime November 25, 2024 12:00am Start: 10-07-2024 take 1 tablet by nidia th every eight hours as needed tiZANidine [...] Comment on above: Take one(1) tablet d aily. medroxyPROGESTERone acetate 10 mg oral tablet (20 [...] therapy) Start: 10-15-2020 take 1 tablet by nidia once daily medroxyPROGESTERone (PROVERA) 10 mg tablet Take 1 tablet by mouth once daily. 10 tablet 3 03/21/2021 Active Comment on above: Take 1 tablet by nidia th once daily. [employer] Syrng-Ndl 0.3 [...] Onset: 03-06-2021 Episodic Disorders of lipid metabolism (4 sources) Hypertriglyceridemia; Translations: [Pure hyperglyceridemia] Onset: 11-08-2024 11-20-2023 Chronic Essential hypertension (20 sources) Hypertensive disorder; Translations: [Essential (primary) hypertension] Onset: 10-16-2021 10-30-2023 Chronic Female infertility (20 sources) Female infertility; Translations: [Female infertility, unspecified] Onset: 02-18-2023 Chronic Immunizations and screening for infectious disease (2 sources) Encounter for screening for human papillomavirus (HPV); Translations: [Exposure to sexually transmissible disorder] Onset: 10-09-2020 01-21-2024 Episodic Menstrual disorders (13 sources) Irregular menstruation, unspecified; Translations: [Amenorrhea, unspecified] Onset: 01-15-2021 Chronic Other aftercare (1 source) Wound finding; Translations: [Encounter for other specified aftercare] 11-25-2024 Episodic Other aftercare (1 source) Encounter for other specified aftercare; Translations: [Other specified aftercare] 11-25-2024 Episodic Other complications of (3 sources) Bacteriuria; Translations: [Bacteriuria during ] 10-01-2023 [...] SYNDROME] Onset: 03-26-2021 Chronic Other endocrine disorders (6 sources) Polycystic ovary syndrome; Translations: [Polycystic ovarian [...] postprocedural states] 11-13-2023 Episodic Residual codes; unclassified (2 sources) Infertile 11-25-2024 Episodic Sexually transmitted infections (not [...] Test Name Value Interpretation Reference Range Facility Pathology study report docum entOrdered By: Keagan Ferguson on 01-25-2025 Pathology study [facility] Other Phone: ALL CBC WITH AUTO DIFFon BASOPHILS ABSOLUTE AUTO 0.1 [facility] Basophils/100 WBC (Bld) 0.7 % 0.2 - 2.0 % [facility] Eosinophils/100 WBC (Bld) 1.5 % 0.9 - 7.0 % [facility] Erythrocyte distribution width (RBC) [Ratio] 13.1 % 11.0 - 15.0 % [facility] Hematocrit (Bld) [Volume fraction] 38 % 36.0 - 48.0 % [facility] Hemoglobin (Bld) [Mass/Vol] 12.9 g/dL 12.0 - 16.0 g/dL [facility] IMMATURE GRANULOCYTES ABS AUTO 0.06 High [facility] Immature granulocytes/100 WBC (Bld) 0.6 % High 0.0 - 0.5 % [facility] Interpretation and review of laboratory results Abnormal [facility] LYMPHOCYTES ABSOLUTE AUTO 3.7 [facility] Lymphocytes/100 WBC (Bld) 34.1 % 20.5 - 60.0 % [facility] MCH (RBC) [Entitic mass] 30.1 pg 26.7 - 34.0 pg [facility] MCHC (RBC) [Mass/Vol] 33.9 g/dL 29.9 - 35.2 g/dL [facility] MCV (RBC) [Entitic vol] 88.8 fL 81.0 - 99.0 fL [facility] MONOCYTES ABSOLUTE AUTO 0.8 [facility] Monocytes/100 WBC (Bld) 7.7 % 1.7 - 12.0 % [facility] NEUTROPHILS ABSOLUTE AUTO 6 [facility] Neutrophils/100 WBC (Bld) 55.4 % 43.0 - 75.0 % [facility] Platelet mean volume (Bld) [Entitic vol] 8.5 fL Low 9.5 - 13.5 fL [facility] TBH EO # 0.2 [facility] TB PLT 294 [facility] RBC 4.28 [facility] WBC 10.7 [facility] Miguel 01-24-2025 L - -------- Specimen: [id number] Received: 01/24/25 Status: JULIOCESAR Weaverannabel Num: [id number] Spec Type: Surgical Subm Dr: Conor Cortes Tissues: A Products of Conception - Spontaneous or Missed (PRODUCTS OF CONCEPT Procedures: HE/2, Gross/Micro L4 -------- Age/ Patient Sex Location Account Attending Physician -------- Aleida Arizmendi 39/F LABELL [id number] Conor Cortes -------- SPEC NUM: [id number] RECD: 01/24/25 STATUS: JULIOCESAR WEAVERAnnabel NUM: [id number] ISSAC: 01/24/[address]: Conor Cortes ENTERED: 01/24/[address]: Gudelia,Lab SPEC TYPE: Surgical DEPT: DOUG FERNÁNDEZ ENTERED BY: [id number] RECV BY: [id number] ORDERED: HE/2, Gross/Micro L4 ORDERED: HE/2, Gross/Micro L4 Pathological Diagnosis Uterine contents, suction D C: - Moderate portion of moderately degenerated chorionic villi and some admixed portion of markedly inflamed and focally degenerated decidual tissue, compatible with the degenerated products of conception and missed - No obvious red blood cell identifiable - No evidence of atypical trophoblastic proliferation - Also no other features of molar degeneration observable or suspected Clinical Information Missed Gross Description Part A is received in formalin labeled with the patients name, date of , and products of conception are butt-pink sheets of glistening delicate tissue, consistent with decidua, admixed with a small amount of hemorrhagic material, 4.5 x 3 x 1 cm in aggregate. Within the decidua are fragments of pale burton feathery tissue, 2.5 x 1.5 x 0.8 cm, consistent with chorionic villi. No tissue is identified. Brine Tank Tender sections of the chorionic villi are submitted in A1 with pharmaceutical representative sections of the decidua submitted in A2. (2, , [id number] A)JENY -------- Specimen: [id number] Received: 01/24/25 Status: JULIOCESAR Valdivia Num: [id number] Spec Type: Surgical Subm : Conor Cortes Tissues: A Products of Conception - Spontaneous or Missed (PRODUCTS OF CONCEPT Procedures: HE/2, Gross/Micro L4 -------- Patient: Aleida Arizmendi [id number] (Continued) -------- Specimen: [id number] Received: 01/24/25 (Continued) Signed (signature on file) Keagan Ferguson MD 01/25/25 0940 -------- Specimen: [id number] Received: 01/24/25 Status: JULIOCESAR Valdivia Num: [id number] Spec Type: Surgical Subm Dr: Conor Cortes Tissues: A Products of Conception - Spontaneous or Missed (PRODUCTS OF CONCEPT Procedures: Kylie VALENTIN/Cinthya L4 -------- Patient: Aleida Arizmendi [id number] (Continued) -------- Specimen: [id number] Received: 01/24/25 (Continued) Microscopic Description Microscopic examination is performed CPT Codes 07218 -------- -------- Specimen: [id number] Received: 01/24/25 Status: JULIOCESAR Valdivia Num: [id number] Spec Type: Surgical Subm Dr: Conor Cortes Tissues: A Products of Conception - Spontaneous or Missed (PRODUCTS OF CONCEPT Procedures: HE/Elida Gross/Micro L4 -------- Patient: Aleida Arizmendi [id number] (Continued) -------- Signed (signature on file) ChinFunmiHayden Ferguson, MD 01/25/25 0940 Normal [facility] TB PREG QUANT HCGon 025 HCG QUANTITATIVE 6357 mIU/mL [facility] Comment on above: 5-50 0.2-1 WEEK 50-500 1-2 WEEKS 100-5,000 2-3 WEEKS 500-10,000 3-4 WEEKS 1,000-50,000 4-5 WEEKS 10,000-100,000 5-6 WEEKS 15,000-200,000 6-8 WEEKS 10,000-100,000 2-3 MONTHS [facility] US OB TRANSVAGINALon [address] [place] [address] Ultrasound Report Signed Patient: ALEIDA ARIZMENDI MR#: [id number] : 1985 Acct:[id number] Age/Sex: 39 / F ADM Date: 01/23/25 Loc: US Attending Dr: LEONEL SALES APRN, CNM Ordering Physician: LEONEL SALES APRN, CNM Date of Service: 01/23/25 Procedure(s): US OB transvaginal Accession Number(s): [id number] cc: DAVID MCKEON ; LEONEL SALES APRN, CNM [place] [address] Patient Name: ALEIDA ARIZMENDI MRN: [facility]:[id number] date: 1985 Sex: F Assigned Patient Location: US Current Patient Location: US Accession/Order Number: [id number] Exam Date: 01/23/2025 16:08 Report Date: 01/23/2025 [...] Jr., D.O. 01/23/2025 4:13 PM Dictation Location: [place] [address] Electronically authenticated by: [id number] Y Date: 01/23/2025 16:13 Dictated By: Jose A Orona M.D. Signed By: 01/23/251615 DD/ 161 TD/TT: Sales Technician Home Theater: [facility] Radiology, Radiologist, MD - 01/23/2025 [place] [address] Ultrasound Report Signed Patient: ALEIDA ARIZMENDI MR#: [id number] : 1985 Acct:[id number] Age/Sex: 39 / F ADM Date: 01/23/25 Loc: US Attending Dr: LEONEL SALES APRN, CNM Ordering Physician: LEONEL SALES APRN, CNM Date of Service: 01/23/25 Procedure(s): US OB transvaginal Accession Number(s): [id number] cc: DAVID MCKEON ; LEONEL SALES APRN, CNM The [place] [id number] Patient Name: ALEIDA ARIZMENDI MRN: [facility]:[id number] date: 1985 Sex: F Assigned Patient Location: US Current Patient Location: US Accession/Order Number: [id number] Exam Date: 01/23/2025 16:08 Report Date: 01/23/2025 [...] Jr., D.O. 01/23/2025 4:13 PM Dictation Location: [place] [address] Electronically authenticated by: [id number] Y Date: 01/23/2025 16:13 Dictated By: Jose A Orona M.D. Signed By: 01/23/25 1616 DD/ 1613 TD/TT: Sales Technician Home Theater: [facility] Radiology Study observation (narrative) [facility] US OB TRANSVAGINALOrdered By : Radiologist Radiology on 01-23-2025 [facility] Work Phone: US OB TRANSVAGINALon [address] [place] [address] Ultrasound Report Signed Patient: ALEIAD ARIZMENDI MR#: [id number] : 1985 Acct:[id number] Age/Sex: 39 / F ADM Date: 01/17/25 Loc: US Attending Dr: LEONEL SALES APRN, CNM Ordering Physician: LEONEL SALES APRN, CNM Date of Service: 01/17/25 Procedure(s): US OB transvaginal Accession Number(s): [id number] cc: DAVID MCKEON ; LEONEL SALES APRN, CNM The [address] [address] Patient Name: ALEIDA ARIZMENDI MRN: [facility]:[id number] date: 1985 Sex: F Assigned Patient Location: Current Patient Location: US Accession/Order Number: [id number] Exam Date: 01/17/2025 15:54 Report Date: 01/17/2025 [...] Jr., D.O. 01/17/2025 4:09 PM Dictation Location: [place] [address] Electronically authenticated by: [id number] Y Date: 01/17/2025 16:09 Dictated By: Jose A Orona M.D. Signed By: 01/17/25 1617 DD/ 1603 TD/TT: Sales Technician Home Theater: [facility] Radiology, Radiologist, - 01/17/[address] [address] Ultrasound Report Signed Patient: ALEIDA ARIZMENDI MR#: [id number] : 1985 Acct:[id number] Age/Sex: 39 / F ADM Date: 01/17/25 Loc: US Attending Dr: LEONEL SALES APRN, CNM Ordering Physician: LEONEL SALES APRN, CNM Date of Service: 01/17/25 Procedure(s): US OB transvaginal Accession Number(s): [id number] cc: DAVID MCKEON ; LEONEL SALES APRN, CNM [place] [address] Patient Name: ALEIDA ARIZMENDI MRN: [id number]:[id number] date: 1985 Sex: F Assigned Patient Location: US Current Patient Location: US Accession/Order Number: [id number] Exam Date: 01/17/2025 15:54 Report Date: 01/17/2025 [...] Jr., D.O. 01/17/2025 4:09 PM Dictation Location: [place] [address] Electronically authenticated by: [id number] Y Date: 01/17/2025 16:09 Dictated By: Jose A Orona M.D. Signed By: 01/17/25 1612 DD/ 1609 TD/TT: Sales Technician Home Theater: [facility] Radiology Study observation (narrative) [facility] US OB TRANSVAGINALOrdered By : Radiologist Radiology on 01-17-2025 [facility] Work Phone: B-HCG SerPl-aCncon 5 [place] [address].0 m[IU]/mL High <5.0 [facility] Comment on above: Order Comment: Speci men Type: BLOOD SPECIMEN Ordering Facility: [facility] Address: [address] [place] [address] Result Comment: BÁRBARA TITATIVE HCG NORMAL RANGES Weeks of Gestation (Weeks Since LMP) 3 Weeks (5.8-71.2 mIU/mL) 4 Weeks (9.5-750 mIU/mL) 5 Weeks (217-7138 mIU/mL) 6 Weeks (158-75598 mIU/mL) 7 Weeks (3697-183633 mIU/mL) 8 Weeks (77573-325879 mIU/mL) 9 Weeks (22624-642053 mIU/mL) 10 Weeks (53553-379977 mIU/mL) 12 Weeks (31524-251727 mIU/mL) Referenced to 4th IS of [facility] Performed By: #### 1 0501-5, 2839-9, 2243-4 #### [facility] CLIA [id number] [address] [facility] CNNURSEon 01-09-2025 CNNURSE Nurse Visit (REIAV) ALEIDA ARIZMENDI ([id number]) 1985 F Date Time Provider Department 01/09/25 10:40 AM US TECH 1 [facility] REJ DEVINV During your visit today, we recorded the following information about you: Sushila Levy APRN.[facility] 01/09/2025 4:05 PM Signed Spoke with Aleida, Reviewed diagnosis of missed from today's ultrasound. Discussed options for medical, surgical or expectant management. Leaning towards medical management but wants to further review with her prior to making final decisions. Is meeting with her MECHANICAL ENGINEERING DRAFTSPERSON tomorrow, may follow up with care from that office as well. Will call back and let us know how she wishes to proceed. Sushila Levy APRN.[facility] January 09, 2025 4:05 PM Referring Provider: MICHEL JOSEPH [[id number]] Allergies As of Date: 01/09/2025 Noted Allergy Reaction AMOXACILLIN (AMOXICILLIN) 03/09/2023 4 - Hives Comments: Skin test is negative. Challenge pending PENICILLINS 10/15/2020 4 - Hives Date Reviewed: 11/25/2024 Reviewed by: Nilton Zhang RN - Fully Assessed Visit Diagnosis:Encounter for test, result positive ([facility]) [Z32.01] Order(s):OBSTETRIC ULTRASOUND [facility] [[id number]] Order #: [id number]. #:[id number] IEWPOINTQty: 1 Prescriptions as of 01/09/2025 - [...] w*10/30/2023 Missed [O02.1] 10/30/2023 Encounter Status:Closed by SUSHILA LEVY on 01/09/25 Normal [facility] Examination level ultrasound on 01-09-2025 Indication [...] Lt ovary: Visualized Performed By: Chary Acevedo; ROBERT Read By: Arley Parikh M.D. MATERNAL MEDICINE [facility] Radiology Study observation (narrative) [facility] CNNURSEon 12-30-2024 CNNURSE Nurse Visit (REIBD) ALDORAYRAYALEIDA FERNANDES ([id number]) 1985 F Date Time Provider Department 12/30/24 10:10 AM Meiyou 3 [facility] BEAC REIBD During your visit today, [...] Joseph MD December 30, 2024 1:32 PM Heena Orr APRN.[facility] 12/30/2024 5:37 PM Signed spoke with Aleida Please schedule the patient for the following- Location: [place] Provider: nurse Visit type: scan Reason for visit/appointment notes: scan Date: 01/09 Time (requested): 1040 If slot is full, please schedule the closest open slot. Call to patient needed: no Referring Provider: KOBI WEINER [[id number]] Allergies As of Date: 12/30/2024 Noted Allergy Reaction AMOXACILLIN (AMOXICILLIN) 03/09/2023 4 - Hives Comments: Skin test is negative. Challenge pending PENICILLINS 10/15/2020 4 - Hives Date Reviewed: 11/25/2024 Reviewed by: Nilton Zhang, LAUREN - Fully Assessed Visit Diagnosis:Encounter for test, result positive ([facility]) [Z32.01] Order(s):OBSTETRIC ULTRASOUND [facility] [[id number]] Order #: [id number]. #:[id number] IEWPOINTQty: 1 OBSTETRIC ULTRASOUND [facility] [[id number]] Order #: [id number]: 1 FUTURE Prescriptions as of 12/30/2024 - [...] Status:Closed by MICHEL JOSEPH on 12/30/24 Normal [facility] Examination level ultrasound on 12-30-2024 Indication [...] Read By: Michel Joseph M.D. MATERNAL MEDICINE [facility] Radiology Study observation (narrative) [facility] B-HCG SerPl-aCncon 5 HCG.beta subunit Qn 252.5 m[IU]/mL High <5.0 C [facility] Comment on above: Order Comment: Speci men Type: BLOOD SPECIMEN Ordering Facility: [facility] Address: [address] [place] [address] Result Comment: BÁRBARA TITATIVE HCG NORMAL RANGES Weeks of Gestation (Weeks Since LMP) 3 Weeks (5.8-71.2 mIU/mL) 4 Weeks (9.5-750 mIU/mL) 5 Weeks (217-7138 mIU/mL) 6 Weeks (158-25398 mIU/mL) 7 Weeks (3697-713862 mIU/mL) 8 Weeks (95409-185872 mIU/mL) 9 Weeks (29677-850913 mIU/mL) 10 Weeks (53399-379329 mIU/mL) 12 Weeks (84548-340604 mIU/mL) Referenced to 4th IS of [facility] Performed By: #### 2 1198-7 #### [facility] LAB CLIA [id number] [address] [place] [address] [place] B-HCG SerPl-aCncon 5 HCG.beta subunit Qn 164.2 m[IU]/mL High <5.0 C [facility] Comment on above: Order Comment: Speci men Type: BLOOD SPECIMEN Ordering Facility: [facility] Address: [address] [place], [place] [address] Result Comment: BÁRBARA TITATIVE HCG NORMAL RANGES Weeks of Gestation (Weeks Since LMP) 3 Weeks (5.8-71.2 mIU/mL) 4 Weeks (9.5-750 mIU/mL) 5 Weeks (217-7138 mIU/mL) 6 Weeks (158-30496 mIU/mL) 7 Weeks (3697-887457 mIU/mL) 8 Weeks (09671-637654 mIU/mL) 9 Weeks (77072-677984 mIU/mL) 10 Weeks (04765-736304 mIU/mL) 12 Weeks (33102-053281 mIU/mL) Referenced to 4th IS of [facility] Performed By: #### 2 1198-7 #### [facility] CLIA [id number] [address] [place] [address] STATES OF [facility] Jerrell 12-09-2024 ADELEN Telephone (REIBD) ALEIDA ARIZMENDI ([id number]) 1985 F Date Time Provider Department 12/09/24 MICHEL JOSEPH During your visit today, we recorded the following information about you: Sushila Barbour 12/09/2024 3:15 PM Signed So Pt and wants a call back please Rukhsana Dennis 12/12/2024 8:30 AM Signed Patient calling back with +hpt everyday since , please call patient. Amarilis Dorman RN 12/12/2024 9:41 AM Signed See other TE for 12/09 Amarilis Dorman RN December 12, 2024 9:41 AM Allergies As of Date: 12/09/2024 Noted Allergy Reaction AMOXACILLIN (AMOXICILLIN) 03/09/2023 4 - Hives Comments: Skin test is negative. Challenge pending PENICILLINS 10/15/2020 4 - Hives Date Reviewed: 11/25/2024 Reviewed by: Nilton Zhang, LAUREN - Fully Assessed Reason for Visit: +hpt [...] w*10/30/2023 Missed [O02.1] 10/30/2023 Encounter Status:Closed by AMARIILS DORMAN on 12/12/24 [facility] Telephone (REIBD) ALEIDA ARIZMENDI ([id number]) 1985 F Date Time Provider Department 12/09/24 MICHEL JOSEPH REGIORGIO During your visit today, we recorded the following information about you: Rukhsana Dennis 12/09/2024 8:06 AM Signed Please follow up with patient she would like to get bloodwork done. Amarilis Dorman RN 12/12/2024 9:40 AM Signed Patient with [...] Routing to MAN team for next steps. Amarilis Dorman RN December 12, 2024 9:38 AM [...] positive [Z32.01] Order(s):HCG QUANTITATIVE [SQHCGQT] Order #: [id number] STANDING Prescriptions as of 12/12/2024 - progesterone [...] 850 mg tablet Take 1 tablet by nidia (more content not included)... [facility] Telephone (REIBD) KILOALEIDA FERNANDES ([id number]) 1985 F Date Time Provider Department 11/25/24 SELF REIBD During your visit today, we recorded the following information about you: Ana Sotomayor 11/25/2024 2:25 PM Signed Pt has a questions about her progesterone shots Idalmis Arias RN 11/25/2024 2:53 PM Signed Return call. Patient wanted clarification on what day to start progesterone suppositories. Patient will start them 11/28 at bedtime. Idalmis Arias RN November 25, 2024 2:53 PM [...] w*10/30/2023 Missed [O02.1] 10/30/2023 Encounter Status:Closed by IDALMIS ARIAS on 11/25/24 Normal [facility] Estradiol SerPl-ncon 11-25 E2 [Mass/Vol] 283 pg/mL High 8-37 [facility] Comment on above: Order Comment: Speci men Type: BLOOD SPECIMEN Ordering Facility: [facility] Address: [address] [place] [address] Result Comment: This test is not suitable [...] 3243 pg/mL Second trimester : 1561 to 83057 pg/mL Third trimester : 8285 to >32498 pg/mL Post-menopausal Estradiol reference range: < 41 pg/mL Reference: 1. Estradiol - E2 (Estradiol III) [package insert V 3.0 Macedonian]. [facility], [place], [place], February 2016. Performed By: #### 1 0501-5, 2839-9, 2243-4 #### [facility] CLIA [id number] [facility] [place] [address] [facility] [place] Follicle Diameter USon 11-25 Indication [...] By: Chary Acevedo; RDMS Read By: Michel Joseph M.D. MATERNAL MEDICINE [facility] Radiology Study observation (narrative) [facility] Estradiol [facility] 11-24 E2 [Mass/Vol] 225 pg/mL High 8-37 [facility] Comment on above: Order Comment: Speci men Type: BLOOD SPECIMEN Ordering Facility: [facility] Address: [address] [place] [address] Result Comment: This test is not suitable [...] 3243 pg/mL Second trimester : 1561 to 34214 pg/mL Third trimester : 8285 to >03364 pg/mL Post-menopausal Estradiol reference range: < 41 pg/mL Reference: 1. Estradiol - E2 (Estradiol III) [package insert V 3.0 Macedonian]. [facility], [place], [place], February 2016. Performed By: #### 1 0501-5, 2839-9, 2243-4 #### [facility] CLIA [id number] [facility]. [place], [place] [id number] [place] [address] [place] Follicle Diameter USon 11-24 [...] Performed By: Chary Acevedo; RDMS Read By: Jazmine Gonzalez MD MATERNAL MEDICINE [facility] Radiology Study observation (narrative) [facility]e [facility] Surgical Pathologyon 025 Surgical Pathology [facility] Comment on above: Result Comment: [facility] [address] [place] [address] Surgical Pathology Consultation Patient Name:ALEIDA ARIZMENDI:1985 (Age: 39)Gender:FTaken:11/22/2024Reported:11/29/2024Physician(s):Delfina Ellis MD ([phone])Copy To: Rec. #:[id number]: #[id number] Final Pathologic Diagnosis Skin and soft tissue, abdomen, excisional biopsy: Benign epidermal/epidermoid inclusion cyst (one), ruptured, with marked acute inflammation, mild chronic inflammation and granulation tissue, abdomen. Report Electronically Signed Out ihw/11/29/2024IRVING MD DANIEL Interpretation [place] [address], License number: [id number]. Clinical History Inclusion cyst L72.0. Gross Description Received in formalin labeled UGO, abdominal cyst is a pale-butt wrinkled ellipse of skin, 2.3 x 1.1 x 0.1 cm. No lesion or area of discoloration is definitively identified. The resection margin is inked green. The specimen is serially sectioned to reveal a cystic structure filled with friable vegetative material. Two pharmaceutical representative cross sections are submitted in a single cassette. (1, ns, [id number],m8.1) DM. dm/11/23/2024NSK Specimen(s) Received Left abdomen Fee Codes(s): 1; 79518 Estradiol [facility] 11-21 E2 [Mass/Vol] 69 pg/mL High 8-37 [facility] Comment on above: Order Comment: Speci men Type: BLOOD SPECIMEN Ordering Facility: [facility] Address: [address] [place] [address] Result Comment: This test is not suitable [...] 3243 pg/mL Second trimester : 1561 to 88804 pg/mL Third trimester : 8285 to >33426 pg/mL Post-menopausal Estradiol reference range: < 41 pg/mL Reference: 1. Estradiol - E2 (Estradiol III) [package insert V 3.0 Macedonian]. [facility], [place], [place], February 2016. Performed By: #### 2 243-4 #### [facility] CLIA [id number] [address] [facility] [place] [address] [place] Follicle Diameter USon 11-21 [...] Performed By: Chary Acevedo; RDMS Read By: Radha Gilliam M.D. MATERNAL MEDICINE [facility] Radiology Study observation (narrative) [facility]20[facility] ALE[facility] ARIZMENDI ([id number]) 1985 F Date Time Provider Department 11/14/24 MICHEL JOSEPH During your visit today, we recorded the following information about you: Ana Sotomayor 11/14/2024 2:55 PM Signed Pt states her letrozole needs a pa and needs the medication by today Mary Ann Kirkland RN 11/15/2024 3:06 PM Addendum Automatic PA started when medication ordered. PA closed: : Drug is covered by current benefit plan. No further PA activity needed Pt called stating she needs a PA. Called [facility] to discuss the PA message I received. Still showing on [facility]'s end that a PA is needed. Started cover my meds. Ayala: [id number] Drug is covered by current benefit plan. [...] Date Reviewed: 11/14/2024 Reviewed by: Leonel Cabezas APRN.[employer] - Fully Assessed Reason for Visit: needs [...] by MARY ANN KIRKLAND on 11/15/24 Normal [facility] Estradiol SerPl-ncon 11-14 E2 [Mass/Vol] 39 pg/mL High 8-37 [facility] Comment on above: Order Comment: Speci men Type: BLOOD SPECIMEN Ordering Facility: [facility] Address: [address] [place] [address] [place] [address] Result Comment: This test is not suitable [...] 3243 pg/mL Second trimester : 1561 to 02983 pg/mL Third trimester : 8285 to >62104 pg/mL Post-menopausal Estradiol reference range: < 41 pg/mL Reference: 1. Estradiol - E2 (Estradiol III) [package insert V 3.0 Macedonian]. [facility], [place], [place], February 2016. Performed By: #### 1 0501-5, 2839-9, 2243-4 #### [facility] CLIA [id number] [address] [facility] [place] [address] [facility] Follicle Diameter USon 11-14 Indication Baseline TV [...] Read By: Radha Gilliam M.D. MATERNAL MEDICINE [facility] Radiology Study observation (narrative) Robe mars [facility] Jerrell 11-11-2024 NAVIN Telephone (REIBD) ALEIDA ARIZMENDI ([id number]) 1985 F Date Time Provider Department 11/11/24 MICHEL JOSEPH During your visit today, we recorded the following information about you: Sushila Barbour 11/11/2024 8:06 AM Signed Super ov Patient started period- calling to schedule baseline Nilton Zhang RN 11/11/2024 8:37 AM Signed Returned call to patient. Scheduled for baseline for 11/14/24 @ 0740 at [place]. Pt. States she needs refill on letrozole and trigger shot. Medication orders pended. Nilton Zhang RN November 11, 2024 8:32 AM Leonel Cabezas APRN.[employer] 11/14/2024 7:28 AM Signed The following approved [...] mouth once daily. Authorizing Provider: LEONEL CABEZAS APRN.[employer] Allergies As of Date: 11/11/2024 Noted Allergy Reaction AMOXACILLIN (AMOXICILLIN) 03/09/2023 4 - Hives Comments: Skin test is negative. Challenge pending PENICILLINS 10/15/2020 4 - Hives Date Reviewed: 10/19/2024 Reviewed by: Idalmis Arias RN - Fully Assessed Reason for Visit: Appointment [186] Primary Visit Diagnosis:Encounter for fertility testing [Z31.41] Other Visit Diagnosis:Female infertility [N97.9] Order(s):ESTRADIOL-17 B BLD [SQE2] Order #: [id number] STANDING FOLLICULAR US WHI [7091535] Order #: [id number]: 1 STANDING chorionic gonadotropin (PREGNYL) 10,000 unit [...] Status:Closed by LEONEL CABEZAS on 11/14/24 Normal [facility] CBC AND AUTO DIFFon 11-08-19 ABSOLUTE BASOPHIL 0.1 X10E9/L Normal 0.0-0.2 [facility] Comment on above: Performed By: #### C BCA, CMP, THYR, 61603-8 #### [facility] ([id number]) [address], [address] [place] [address] ABSOLUTE NEUTROPHIL 4.8 X10E9/L Normal 1.5-6.6 [facility] Comment on above: Performed By: #### C BCA, CMP, THYR, 92114-9 #### [facility] ([id number]) [address], [address] [place] [address] Basophils/100 WBC (Bld) 0.6 % Normal [facility] Comment on above: Performed By: #### C BCA, CMP, THYR, 79234-8 #### [facility] ([id number]) [address], [address] [place] [address] Eosinophils (Bld) [#/Vol] 0.2 10*3/uL Normal 0.0-0.4 [facility] Comment on above: Performed By: #### C BCA, CMP, THYR, 61595-5 #### [facility] ([id number]) [address], [address] [place] [address] Eosinophils/100 WBC (Bld) 2.6 % Normal [facility] Comment on above: Performed By: #### C BCA, CMP, THYR, 52878-9 #### [facility] ([id number]) [address], [address] [place] [address] Erythrocyte distribution width (RBC) [Ratio] 14.3 % Normal 11.5-15.0 [facility] Comment on above: Performed By: #### C BCA, CMP, THYR, 42937-7 #### [facility] ([id number]) [address], [address] [place] [address] Hematocrit (Bld) [Volume fraction] 38.7 % Normal 35-47 [facility] Comment on above: Performed By: #### C BCA, CMP, THYR, 02692-0 #### [facility] ([id number]) [address], [address] [place] [address] Hemoglobin (Bld) [Mass/Vol] 13.2 g/dL Normal 11.7-15.5 [facility] Comment on above: Performed By: #### C BCA, CMP, THYR, 16761-5 #### [facility] ([id number]) [address], [address] [place] [address] Lymphocytes (Bld) [#/Vol] 2.8 10*3/uL Normal 1.0-3.5 [facility] Comment on above: Performed By: #### C BCA, CMP, THYR, 20650-6 #### [facility] ([id number]) [address], [address] [place] [address] Lymphocytes/100 WBC (Bld) 33.6 % Normal [facility] Comment on above: Performed By: #### C BCA, CMP, THYR, 84029-0 #### [facility] ([id number]) [address], [address] [place] [address] MCH (RBC) [Entitic mass] 30.4 pg Normal 27-34 [facility] Comment on above: Performed By: #### C BCA, CMP, THYR, 51155-1 #### [facility] ([id number]) [address], [address] [place] [address] MCHC (RBC) [Mass/Vol] 34.1 g/dL Normal 32-36 [facility] Comment on above: Performed By: #### C BCA, CMP, THYR, 09558-3 #### [facility] ([id number]) [address], [address] [place] [address] MCV (RBC) [Entitic vol] 89 fL Normal 80-100 [facility] Comment on above: Performed By: #### C BCA, CMP, THYR, 83991-5 #### [facility] ([id number]) [address], [address] [place] [address] Monocytes (Bld) [#/Vol] 0.5 10*3/uL Normal 0-0.9 [facility] Comment on above: Performed By: #### C BCA, CMP, THYR, 24393-1 #### [facility] ([id number]) [address], [address] [place] [address] Monocytes/100 WBC (Bld) 6.2 % Normal [facility] Comment on above: Performed By: #### C BCA, CMP, THYR, 27129-7 #### [facility] ([id number]) [address], [address] [place] [address] Neutrophils/100 WBC (Bld) 57.0 % Normal [facility] Comment on above: Performed By: #### C BCA, CMP, THYR, 74246-6 #### [facility] ([id number]) [address] [address] [place] [address] Platelet mean volume (Bld) [Entitic vol] 7.8 fL Normal 7-12 [facility] Comment on above: Performed By: #### C BCA, CMP, THYR, 55897-5 #### [facility] ([id number]) [address] [address] Platelets (Bld) [#/Vol] 338 10*3/uL Normal 150-450 [facility] Comment on above: Performed By: #### Jeison BCA, CMP, THYR, 51510-0 #### [facility] ([id number]) [address] [address] [place] [address] RBC COUNT 4.34 X10E12/L Normal 3.80-5.20 [facility] Comment on above: Performed By: #### Jeison BCA, CMP, THYR, 41761-4 #### [facility] ([id number]) [address] [address] [place] [address] WBC (Bld) [#/Vol] 8.5 10*3/uL Normal 4.0-11.0 [facility] Comment on above: Performed By: #### Jeison BCA, CMP, THYR, 64166-3 #### [facility] ([id number]) [address] [address] [place] [address] Jerrell 11-08-2024 NAVIN Telephone (KAREN) ALEIDA ARIZMENDI ([id number]) 1985 F Date Time Provider Department 11/08/24 SUSHILA LEVY During your visit today, we recorded the following information about you: Allergies As of Date: 11/08/2024 Noted Allergy Reaction AMOXACILLIN (AMOXICILLIN) 03/09/2023 4 - Hives Comments: Skin test is negative. Challenge pending PENICILLINS 10/15/2020 4 - Hives Date Reviewed: 10/19/2024 Reviewed by: Idalmis Arias RN - Fully Assessed Reason for [...] two times a day. Encounter Status:Closed by SUSHILA LEVY on 11/08/[address] [facility] METABOLIC PANE Miguel 11-08-2024 Albumin [Mass/Vol] 3.8 g/dL Normal 3.2-5.3 [facility] Comment on above: Performed By: #### C BCA, CMP, THYR, 37464-9 #### [facility] ([id number]) [address] [place] [address] ALP [Catalytic activity/Vol] 54 U/L Normal 39-130 [facility] Comment on above: Performed By: #### C BCA, CMP, THYR, 42936-5 #### [facility] ([id number]) [address] [place] [address] ALT [Catalytic activity/Vol] 32 U/L High 0-31 [facility] Comment on above: Performed By: #### C BCA, CMP, THYR, 29944-4 #### [facility] ([id number]) [address], [address] [place] [address] Anion gap [Moles/Vol] 9 mmol/L Normal 5-15 [facility] Comment on above: Performed By: #### C BCA, CMP, THYR, 28027-1 #### [facility] ([id number]) [address], [address] [place] [address] AST [Catalytic activity/Vol] 32 U/L Normal 0-41 [facility] Comment on above: Performed By: #### C BCA, CMP, THYR, 62384-1 #### [facility] ([id number]) [address], [address] [place] [address] Bilirubin [Mass/Vol] 0.4 mg/dL Normal 0.3-1.2 [facility] Comment on above: Performed By: #### C BCA, CMP, THYR, 81612-2 #### [facility] ([id number]) [address], [address] [place] [address] Calcium [Mass/Vol] 9.0 mg/dL Normal 8.5-10.5 [facility] Comment on above: Performed By: #### C BCA, CMP, THYR, 29814-6 #### [facility] ([id number]) [address] [place] [address] Chloride [Moles/Vol] 106 mmol/L Normal 98-109 [facility] Comment on above: Performed By: #### C BCA, CMP, THYR, 89345-9 #### [facility] ([id number]) [address], [address] [place] [address] CO2 [Moles/Vol] 25 mmol/L Normal 22-32 [facility] Comment on above: Performed By: #### C BCA, CMP, THYR, 09502-4 #### [facility] ([id number]) [address], [address] [place] [address] Creatinine [Mass/Vol] 0.83 mg/dL Normal 0.40-1.00 [facility] Comment on above: Result Comment: METH OD TRACEABLE TO IDMS STANDARD Performed By: #### C BCA, CMP, THYR, 15512-7 #### [facility] ([id number]) [address] [place] [address] eGFR (CKD-EPI) NON-RACE DEPENDENT >90 Normal >59 [facility] Comment on above: Result Comment: Reported eGFR is based on the CKD-EPI 2020 equation that does not use a race coefficient. Performed By: #### C BCA, CMP, THYR, 63166-2 #### [facility] ([id number]) [address], [address] [place] [address] Glucose [Mass/Vol] 94 mg/dL Normal 65-99 [facility] Comment on above: Performed By: #### C BCA, CMP, THYR, 22387-2 #### [facility] ([id number]) [address], [address] [place] [address] Potassium [Moles/Vol] 3.5 mmol/L Normal 3.5-5.0 [facility] Comment on above: Performed By: #### C BCA, CMP, THYR, 54166-4 #### [facility] ([id number]) [address], [address] [place] [address] Protein [Mass/Vol] 6.8 g/dL Normal 6.0-8.0 [facility] Comment on above: Performed By: #### C BCA, CMP, THYR, 16420-0 #### [facility] ([id number]) [address] [place] [address] Sodium [Moles/Vol] 140 mmol/L Normal 134-146 [facility] Comment on above: Performed By: #### C BCA, CMP, THYR, 11178-3 #### [facility] ([id number]) [address] [address] [place] [address] Urea nitrogen [Mass/Vol] 8 mg/dL Normal 5-23 [facility] Comment on above: Performed By: #### C BCA, CMP, THYR, 43443-4 #### [facility] ([id number]) [address] [address] [place] [address] HGB A1C (GLYCO-HGB)on 2024 Glucose [Mass/Vol] 114 mg/dL Normal [facility] Comment on above: Performed By: #### H A1C #### [facility] ([id number]) [address] [address] HbA1c (Bld) [Mass fraction] 5.6 % Normal 4.4-5.6 [facility] Comment on above: Result Comment: NOTE ADA Guidelines Result HgbA1c Normal : less than 5.7 % Prediabetes : 5.7 % to 6.4 % Diabetes : > 6.4 % Use with caution in patients with abnormal hemoglobin variants as the half-life of red blood cells and in vivo glycation rates are affected. Performed By: #### H A1C #### [facility] ([id number]) [address] [address] Lipid 1996 panelon Cholesterol [Mass/Vol] 162 mg/dL Normal 150-200 [facility] Comment on above: Performed By: #### C BCA, CMP, THYR, 41737-8 #### [facility] ([id number]) [address] [address] [place] [address] Cholesterol in HDL [Mass/Vol] 36 mg/dL Low >39 [facility] Comment on above: Result Comment: HDL <40 mg/dL - High Risk HDL > or = 40mg/dL- Desirable HDL >60 mg/dL - Negative Risk Performed By: #### C BCA, CMP, THYR, 68273-3 #### [facility] ([id number]) [address] [place] [address] Cholesterol in VLDL [Mass/Vol] 123 mg/dL High 0-30 [facility] Comment on above: Performed By: #### C BCA, CMP, THYR, 36788-2 #### [facility] ([id number]) [address] [address] [place] [address] CHOLESTEROL:HDL 4.5 Normal 1.0-5.0 [facility] Comment on above: Performed By: #### C BCA, CMP, THYR, 78970-8 #### [facility] ([id number]) [address] [facility] [address] [place] [address] LDL (CALC) RESULT BELOW DETECTABLE RANGE Normal <130 [facility] Comment on above: Performed By: #### C BCA, CMP, THYR, 24427-7 #### [facility] ([id number]) [address] [address] [place] [address] Triglyceride [Mass/Vol] 615 mg/dL High 27-150 [facility] Comment on above: Performed By: #### C BCA, CMP, THYR, 25495-8 #### [facility] ([id number]) [address] [address] [place] [address] THYROID PROFILEon 11-08-2024 Free T4 [Mass/Vol] 0.65 ng/dL Normal 0.61-1.60 [facility] Comment on above: Performed By: #### C BCA, CMP, THYR, 51110-5 #### [facility] ([id number]) [address] [address] [place] [address] TSH 1.64 uIU/mL Normal 0.49-4.67 [facility] Comment on above: Performed By: #### C BCA, CMP, THYR, 29611-1 #### [facility] ([id number]) [address] [facility] [place] [address] CNNURSEon 10-23-2024 CNNURSE Nurse Visit (REIBD) ALEIDA ARIZMENDI ([id number]) 1985 F Date Time Provider Department 10/23/24 8:30 AM NURSE [facility] ERNESTINE REIBD During your visit today, [...] - Hives Date Reviewed: 10/19/2024 Reviewed by: Idalmis Arias RN - Fully Assessed Reason for Visit: Infertility [285] Visit Diagnosis:Female infertility [N97.9] Order(s):ESTRADIOL-17 B BLD [SQE2] Order #: [id number]. #:[id number] Prescriptions as of 10/26/2024 - metFORMIN (GLUCOPHAGE) [...] Status:Closed by IVY GARDNER on 10/23/24 Normal [facility] E2 [Mass/Vol]on 10-23-2024 [facility] ESTRADIOL-17B BLDon 10-23-19 E2 [Mass/Vol] 408 pg/mL [facility] Comment on above: This test is [...] 3243 pg/mL Second trimester : 1561 to 61834 pg/mL Third trimester : 8285 to >55762 pg/mL Post-menopausal Estradiol reference range: < 41 pg/mL Reference: 1. Estradiol - E2 (Estradiol III) [package insert V 3.0 Macedonian]. [facility], [place], [place], February 2016. Estradiol SerPl-mCncon 10-23 E2 [Mass/Vol] 408 pg/mL Normal [facility] Comment on above: Order Comment: Speci men Type: BLOOD SPECIMENOrdering Facility: [facility] Address: [address] [place] [address] Result Comment: This test is not suitable [...] 3243 pg/mL Second trimester : 1561 to 99816 pg/mL Third trimester : 8285 to >57986 pg/mL Post-menopausal Estradiol reference range: < 41 pg/mL Reference: 1. Estradiol - E2 (Estradiol III) [package insert V 3.0 Macedonian]. [facility], [place], [place], February 2016. Performed By: #### 2 243-4 ####[facility] LABCLIA [id number] [place] [id number] [facility] Follicle Diameter USon 10-23 Indication Follicle monitoring [...] Performed By: Neida Goldman RDMS Read By: Arley Parikh M.D. MATERNAL MEDICINE [facility] Radiology Study observation (narrative) [facility] Estradiol [facility] 10-21 E2 [Mass/Vol] 175 pg/mL [facility] 8-37 [facility] Comment on above: Order Comment: Speci men Type: BLOOD SPECIMEN Ordering Facility: [facility] Address: [address] [place] [address], [place] [address] Result Comment: This test is not suitable [...] 3243 pg/mL Second trimester : 1561 to 32213 pg/mL Third trimester : 8285 to >84356 pg/mL Post-menopausal Estradiol reference range: < 41 pg/mL Reference: 1. Estradiol - E2 (Estradiol III) [package insert V 3.0 Macedonian]. [facility], [place], [place], February 2016. Performed By: #### 2 243-4 #### [facility] CLIA [id number] [facility] [place] [address] [facility] Follicle Diameter USon 10-21 Indication Follicle monitoring [...] Read By: Michel Joseph M.D. MATERNAL MEDICINE [facility] Radiology Study observation (narrative) [facility] Estradiol [facility] 10-19 E2 [Mass/Vol] 71 pg/mL [facility] [address] Comment on above: Order Comment: Speci men Type: BLOOD SPECIMEN Ordering Facility: [facility] Address: [address] [place] [address] Result Comment: This test is not suitable [...] 3243 pg/mL Second trimester : 1561 to 64408 pg/mL Third trimester : 8285 to >58901 pg/mL Post-menopausal Estradiol reference range: < 41 pg/mL Reference: 1. Estradiol - E2 (Estradiol III) [package insert V 3.0 Macedonian]. [facility], [place], [place], February 2016. Performed By: #### 2 243-4 #### [facility] CLIA [id number] [facility] [place] [address] [place] Follicle Diameter USon [...] Read By: Radha Gilliam M.D. MATERNAL MEDICINE [facility] Radiology Study observation (narrative) [facility] Estradiol [facility] 10-12 E2 [Mass/Vol] 47 pg/mL High 8-37 [facility] Comment on above: Order Comment: Speci men Type: BLOOD SPECIMEN Ordering Facility: [facility] Address: [address] [place] [address] [place] [address] Result Comment: This test is not suitable [...] 3243 pg/mL Second trimester : 1561 to 14333 pg/mL Third trimester : 8285 to >99549 pg/mL Post-menopausal Estradiol reference range: < 41 pg/mL Reference: 1. Estradiol - E2 (Estradiol III) [package insert V 3.0 Macedonian]. [facility], [place], [place], February 2016. Performed By: #### 2 243-4 #### [facility] CLIA [id number] [facility] [place] [address] [facility] Follicle Diameter USon 10-12 Indication Lining Assessment [...] Performed By: Chary Acevedo; RDMS Read By: Radha Gilliam M.D. MATERNAL MEDICINE [facility] Radiology Study observation (narrative) Robe mars [facility] Jerrell 10-10-2024 CNPN Telephone (REIBD) UGOALEIDA ([id number]) 1985 F Date Time Provider Department 10/10/24 MICHEL JOSEPH During your visit today, we recorded the following information about you: Greer Horton 10/10/2024 12:38 PM Signed Needs to schedule so Mary Ann Kirkland RN 10/10/2024 3:58 PM Signed Returned patient. Today is cycle day 2. Needs to baseline for SO. Episode for SO #10 created. Per EGR 09/21/24 For SO, same protocol as the last cycle (SO#9) Location: [place] Visit type: Baseline, SO us/e2 Date: 10/12 @ 0720 Mary Ann Kirkland RN October 10, 2024 3:50 PM Allergies As of Date: 10/10/2024 Noted Allergy Reaction AMOXACILLIN (AMOXICILLIN) 03/09/2023 4 - Hives Comments: Skin test is negative. Challenge pending PENICILLINS 10/15/2020 4 - Hives Date Reviewed: 09/12/2024 Reviewed by: Idalmis Arias, LAUREN - Fully Assessed Reason for Visit: needs [...] Status:Closed by MARY ANN KIRKLAND on 10/10/24 [facility] 09-21-2024 O ID: [id number] Author: CAROLINA RAMIREZ MD Service: ? Author [...] partner had another semen analysis done at [facility] in 2016 in addition to another one here in 2022. She reports they were normal, however she is uncertain whether she has access to these records and she will try to obtain them. Normal [facility] CONSULT PROGon 09-21-2024 CONSULT PROG HNO ID: [id number] Author: MICHEL JOSEPH MD Service: ? Author Type: Physician Type: Consult Progress Note Filed: 09/21/2024 13:55 Note Text: [facility] Date: 09/21/2024 Aleida Arizmendi is a 38 year old female presenting with the following history: HISTORY OF PRESENT ILLNESS: Aleida Arizmendi is a 38 year old female [...] spironolactone (ALDACTON (more content not included)... Normal [facility] Estradiol SerPl-mCncon 09-20 E2 [Mass/Vol] 481 pg/mL High 8-37 [facility] Comment on above: Order Comment: Speci men Type: BLOOD SPECIMEN Ordering Facility: [facility] Address: [address] [place] [address] Result Comment: This test is not suitable [...] 3243 pg/mL Second trimester : 1561 to 58703 pg/mL Third trimester : 8285 to >33540 pg/mL Post-menopausal Estradiol reference range: < 41 pg/mL Reference: 1. Estradiol - E2 (Estradiol III) [package insert V 3.0 Macedonian]. [facility], [place], [place], February 2016. Performed By: #### 2 243-4 #### [facility] CLIA [id number] [facility]. [place], [place] [id number] [place] [address] [place] Follicle Diameter USon 09-20 Indication Follicle monitoring, Lining Impression Right [...] Performed By: Chary Acevedo; RDMS Read By: Zhen Sears M.D. MATERNAL MEDICINE [facility] Radiology Study observation (narrative) [facility] Estradiol SerPl-mCncon 09-19 E2 [Mass/Vol] 347 pg/mL High 8-37 [facility] Comment on above: Order Comment: Speci men Type: BLOOD SPECIMEN Ordering Facility: [facility] Address: [address] [place] [address] [place] [address] Result Comment: This test is not suitable [...] 3243 pg/mL Second trimester : 1561 to 57927 pg/mL Third trimester : 8285 to >63491 pg/mL Post-menopausal Estradiol reference range: < 41 pg/mL Reference: 1. Estradiol - E2 (Estradiol III) [package insert V 3.0 Macedonian]. [facility], [place], [place], February 2016. Performed By: #### 2 243-4 #### [facility] CLIA [id number] [facility]. [address] [place] Follicle Diameter USon 09-19 Indication [...] free fluid visualized Performed By: Chary Acevedo; [facility] Read By: Arley Parikh M.D. MATERNAL MEDICINE [facility] Radiology Study observation (narrative) [facility]iol [facility] E2 [Mass/Vol] 51 pg/mL [facility] 8-37 [facility] Comment on above: Order Comment: Speci men Type: BLOOD SPECIMEN Ordering Facility: [facility] Address: [address] [place] [address] Result Comment: This test is not suitable [...] 3243 pg/mL Second trimester : 1561 to 16550 pg/mL Third trimester : 8285 to >33775 pg/mL Post-menopausal Estradiol reference range: < 41 pg/mL Reference: 1. Estradiol - E2 (Estradiol III) [package insert V 3.0 Macedonian]. [facility], [place], [place], February 2016. Performed By: #### 1 0501-5, 2839-9, 2243-4 #### [facility] CLIA [id number] [facility] [place] [address] [place] Follicle Diameter USon [...] Performed By: Chary Acevedo; RDMS Read By: Arley Parikh M.D. MATERNAL MEDICINE [facility] Radiology Study observation (narrative) [facility] Estradiol [facility] 09-12 E2 [Mass/Vol] pg/mL Normal 8-37 [facility] Comment on above: Order Comment: Speci men Type: BLOOD SPECIMEN Ordering Facility: [facility] Address: [address] [place] [address] Result Comment: This test is not suitable [...] 3243 pg/mL Second trimester : 1561 to 14522 pg/mL Third trimester : 8285 to >93730 pg/mL Post-menopausal Estradiol reference range: < 41 pg/mL Reference: 1. Estradiol - E2 (Estradiol III) [package insert V 3.0 Macedonian]. [facility], [place], [place], February 2016. Performed By: #### 1 0501-5, 2839-9, 2243-4 #### [facility] CLIA [id number] [place] [address] [place] Follicle Diameter USon [...] Performed By: Callie Ceja RDMS Read By: Arley Parikh M.D. MATERNAL MEDICINE [facility] Radiology Study observation (narrative) [facility] SerPl-aCncon 09-12-2024 Lutropin Qn 10.9 m[IU]/mL Normal See comment [facility] Comment on above: Order Comment: Speci men Type: BLOOD SPECIMEN Ordering Facility: [facility] Address: [address] [place] [address] Result Comment: Refe rence range: Follicular: 2.4-12.6 mIU/mL Midcycle: 14.0-95.6 mIU/mL Luteal: 1.0-11.4 mIU/mL Post [place]: 7.7-58.5 mIU/mL Performed By: #### 1 0501-5, 2839-9, 2243-4 #### [facility] CLIA [id number] [facility] [place] [address] [place] Progest SerPl-mCncon 024 Progesterone [Mass/Vol] 0.3 ng/mL Normal See comment [facility] Comment on above: Order Comment: Speci men Type: BLOOD SPECIMEN Ordering Facility: [facility] Address: [address] [place] [address] Result Comment: Mens trual Cycle Progesterone Reference Ranges: Follicular: <1.0 ng/mL Ovulation: <12.1 ng/mL Luteal: 1.8 to 23.9 ng/mL. Progesterone Reference Ranges vary by gestational period: First Trimester: 11.0 to 44.3 ng/mL Second Trimester: 25.4 to 83.3 ng/mL Third Trimester: 58.7 to 214 ng/mL Post menopausal Progesterone: <0.5 ng/mL Reference: 1. Progesterone (Progesterone III) [package insert V 1.0 Macedonian]. [facility], [place], [place]. June 2015. Performed By: #### 1 0501-5, 2839-9, 2243-4 #### [facility] CLIA [id number] [facility] [place] [address] [facility] CNPNon 09-08-2024 CNPN Telephone (REIBD) ALEIDA ARIZMENDI ([id number]) 1985 F Date Time Provider Department 09/08/24 MICHEL JOSEPH During your visit today, we recorded the following information about you: Yancy Fajardo 09/09/2024 8:12 AM Signed OOT til Thursday Ivy Gardner RN 09/09/2024 9:07 AM Signed Pt calling to schedule baseline for SO cycle. Ok to start per EGR. Baseline scheduled 09/12 at 7 [place]. Ivy Gardner RN September 09, 2024 9:03 AM Allergies As of Date: 09/08/2024 Noted Allergy Reaction AMOXACILLIN (AMOXICILLIN) 03/09/2023 4 - Hives Comments: Skin test is negative. Challenge pending PENICILLINS 10/15/2020 4 - Hives Date Reviewed: 08/15/2024 Reviewed by: Idalmis Arias RN - Fully Assessed Reason for Visit: Appointment [186] LMP 09/07/24/ set up medicated cycle [Other] Called back today is day 3/ set up super ov [Other] Primary Visit Diagnosis:Female infertility [N97.9] Order(s):PROGESTERONE [SQPROG] Order #: [id number] STANDING ESTRADIOL-17B BLD [SQE2] Order #: [id number] STANDING LUTEINIZING HORMONE [SQLH] Order #: [id number] STANDING FOLLICULAR [facility] [[id number]] Order #: [id number]: 1 STANDING chorionic gonadotropin (PREGNYL) 10,000 unit [...] Encounter Status:Closed by MICHEL JOSEPH on 09/09/24 [facility] Nurse Visit (REIAV) ALEIDA ARIZMENDI ([id number]) 1985 F Date Time Provider Department 08/17/24 7:30 AM RADHA GILLIAM During your visit today, we recorded the following information about you: Idalmis Arias RN 08/22/2024 11:44 AM Signed The patient is here today for follicular ultrasound and blood work. The patient reports no problems or complaints. Ultrasound and blood will be reviewed by the physician, the flow sheet will be updated and instructions will be communicated to the patient. Idalmis Arias RN Called patient with plan. No answer. LVM. Mychart sent. Idalmis Arias RN August 17, 2024 1:57 PM Referring Provider: SUSHILA LEVY [[id number]] Allergies As of Date: 08/17/2024 Noted Allergy Reaction AMOXACILLIN (AMOXICILLIN) 03/09/2023 4 - Hives Comments: Skin test is negative. Challenge pending PENICILLINS 10/15/2020 4 - Hives Date Reviewed: 08/15/2024 Reviewed by: Idalmis Arias RN - Fully Assessed Reason for Visit: Infertility [285] Visit Diagnosis:Female infertility [N97.9] Order(s):FOLLICULAR US [facility] [[id number]] Order #: [id number]. #:[id number] IEWPOINTQty: 1 Prescriptions as of 08/22/2024 - [...] Status:Closed by RADHA GILLIAM on 08/22/24 Normal [facility] Estradiol SerPl-mCncon 08-17 E2 [Mass/Vol] 131 pg/mL High 8-37 [facility] Comment on above: Order Comment: Speci men Type: BLOOD SPECIMEN Ordering Facility: [facility] Address: [address] [place] [address] Result Comment: This test is not suitable [...] 3243 pg/mL Second trimester : 1561 to 67970 pg/mL Third trimester : 8285 to >56316 pg/mL Post-menopausal Estradiol reference range: < 41 pg/mL Reference: 1. Estradiol - E2 (Estradiol III) [package insert V 3.0 Macedonian]. [facility], [place], [place], February 2016. Performed By: #### 2 243-4 #### [facility] CLIA [id number] [place] [address] [place] Follicle Diameter USon [...] Rt ovarian follicles other findings: # antral [id number] < 10 mm Left Ovary Lt ovary: [...] Read By: Radha Gilliam M.D. MATERNAL MEDICINE [facility] Radiology Study observation (narrative) Robe mars [facility] 08-15-2024 CNNURSE Nurse Visit (REIAV) ALEIDA ARIZMENDI ([id number]) 1985 F Date Time Provider Department 08/15/24 7:00 AM EULA ARLEY KAREN During your visit today, we recorded the following information about you: Idalmis Arias RN 08/15/2024 4:46 PM Signed The patient is here today for follicular ultrasound and blood work. The patient reports no problems or complaints. Ultrasound and blood will be reviewed by the physician, the flow sheet will be updated and instructions will be communicated to the patient. Idalmis Arias RN RN called patient, name and verified. Plan given for IVF cycle per physician, see flowsheet for details. Fromlabt message sent. Medications reviewed and verified, instructions given. Patient denies any questions or concerns. Message sent to scheduling pool for next appt. Idalmis Arias RN August 15, 2024 1:39 PM Referring Provider: SUSHILA LEVY [[id number]] Allergies As of Date: 08/15/2024 Noted Allergy Reaction AMOXACILLIN (AMOXICILLIN) 03/09/2023 4 - Hives Comments: Skin test is negative. Challenge pending PENICILLINS 10/15/2020 4 - Hives Date Reviewed: 08/15/2024 Reviewed by: Idalmis Arias RN - Fully Assessed Reason for Visit: Infertility [285] Visit Diagnosis:Female infertility [N97.9] Order(s):FOLLICULAR US [facility] [[id number]] Order #: [id number]. #:[id number] IEWPOINTQty: 1 Prescriptions as of 08/15/2024 - [...] w*10/30/2023 Missed [O02.1] 10/30/2023 Encounter Status:Closed by ARLEY PARIKH on 08/15/24 Normal [facility] E2 [Mass/Vol] 83 pg/mL High 8-37 [facility] Comment on above: Order Comment: Speci men Type: BLOOD SPECIMEN Ordering Facility: [facility] Address: [address] [place] [address] [place] [address] Result Comment: This test is not suitable [...] 3243 pg/mL Second trimester : 1561 to 71308 pg/mL Third trimester : 8285 to >36780 pg/mL Post-menopausal Estradiol reference range: < 41 pg/mL Reference: 1. Estradiol - E2 (Estradiol III) [package insert V 3.0 Macedonian]. [facility], [place], [place], February 2016. Performed By: #### 1 0501-5, 2839-9, 2243-4 #### [facility] CLIA [id number] [facility]. [place], [place] [id number] [place] [address] OF [facility] Follicle Diameter [facility] Indication Follicle monitoring Impression Right Ovary: [...] Performed By: Nilton Bates RDMS Read By: Arley Parikh M.D. MATERNAL MEDICINE [facility] Radiology Study observation (narrative) [facility] CNNURSEon 08-10-2024 CNNURSE Nurse Visit (REIAV) ALEIDA ARIZMENDI ([id number]) 1985 F Date Time Provider Department 08/10/24 [...] cycle per physician, see flowsheet for details. Xoft message sent. Medications reviewed and verified, instructions given. Patient denies any questions or concerns. Message sent to scheduling pool for next appt. Nilton Zhang RN August 10, 2024 1:19 PM Referring Provider: SUSHILA LEVY [[id number]] Allergies As of Date: 08/10/2024 Noted Allergy Reaction AMOXACILLIN (AMOXICILLIN) 03/09/2023 4 - Hives Comments: Skin test is negative. Challenge pending PENICILLINS 10/15/2020 4 - Hives Date Reviewed: 08/10/2024 Reviewed by: Nilton Zhang RN - Fully Assessed Reason for Visit: Infertility [285] Visit Diagnosis:Female infertility [N97.9] Order(s):FOLLICULAR US [facility] [[id number]] Order #: [id number]. #:[id number] IEWPOINTQty: 1 Prescriptions as of 08/10/2024 - [...] ethynodiol diacetate-ethinyl estradiol 1 mg-35 mcg (ZOVIA 135E, 28,) 1-35 mg-mcg per tablet Start day [...] Status:Closed by MICHEL JOSEPH on 08/10/24 Normal [facility] Estradiol SerPl-mCncon 08-10 E2 [Mass/Vol] pg/mL Normal 8-37 [facility] Comment on above: Order Comment: Speci men Type: BLOOD SPECIMEN Ordering Facility: [facility] Address: [address] [place] [address] Result Comment: This test is not suitable [...] 3243 pg/mL Second trimester : 1561 to 19238 pg/mL Third trimester : 8285 to >92048 pg/mL Post-menopausal Estradiol reference range: < 41 pg/mL Reference: 1. Estradiol - E2 (Estradiol III) [package insert V 3.0 Macedonian]. [facility], [place], [place], February 2016. Performed By: #### 2 243-4 #### [facility] CLIA [id number] [facility] [place] [place] [address] [place] Follicle Diameter USon 08-10 Indication Follicle monitoring Impression Right Ovary: [...] free fluid visualized Performed By: Chary Acevedo; [facility] Read By: Michel Joseph M.D. MATERNAL MEDICINE [facility] Radiology Study observation (narrative) Robe mars [facility] 08-08-2024 [facility] Telephone (REIBD) ALEIDA ARIZMENDI ([id number]) 1985 F Date Time Provider Department 08/08/24 [...] - Hives Date Reviewed: 07/18/2024 Reviewed by: Idalmis Arias RN - Fully Assessed Reason for Visit: LMP 08/06/24/ set up baselines for super ov [Other] Primary Visit Diagnosis:Female infertility [N97.9] Order(s):FOLLICULAR US [facility] [[id number]] Order #: [id number]: 1 STANDING ESTRADIOL-17B BLD [SQE2] Order #: [id number] STANDING Follitropin Beta (FOLLISTIM AQ) 300 unit/0.36 [...] AND* 1 Ea* 1 08/08/2024 08/08/2024 Route: [facility] one time only for 1 [...] Status:Closed by MARY ANN KIRKLAND on 08/09/24 [facility] ALEIDA ARIZMENDI ([id number]) 1985 F Date Time Provider Department 07/18/24 7:00 AM ARLEY PARIKH During your visit today, we recorded the following information about you: Idalmis Arias RN 07/18/2024 4:34 PM Signed The patient is here today for follicular ultrasound and blood work. The patient reports no problems or complaints. Ultrasound and blood will be reviewed by the physician, the flow sheet will be updated and instructions will be communicated to the patient. Idalmis Arias RN RN called patient, name and verified. Plan given for IVF cycle per physician, see flowsheet for details. Fromlabt message sent. Medications reviewed and verified, instructions given. Patient denies any questions or concerns. Message sent to scheduling pool for next appt. Idalmis Arias RN July 18, 2024 1:25 PM Referring Provider: SUSHILA LEVY [[id number]] Allergies As of Date: 07/18/2024 Noted Allergy Reaction AMOXACILLIN (AMOXICILLIN) 03/09/2023 4 - Hives Comments: Skin test is negative. Challenge pending PENICILLINS 10/15/2020 4 - Hives Date Reviewed: 07/18/2024 Reviewed by: Idalmis Arias RN - Fully Assessed Reason for Visit: Infertility [285] Visit Diagnosis:Female infertility [N97.9] Order(s):FOLLICULAR US [facility] [[id number]] Order #: [id number]. #:[id number] IEWPOINTQty: 1 Prescriptions as of 07/18/2024 - [...] w*10/30/2023 Missed [O02.1] 10/30/2023 Encounter Status:Closed by ARLEY PARIKH on 07/18/24 Normal [facility] Estradiol SerPl-mCncon 07-18 E2 [Mass/Vol] 221 pg/mL High 8-37 [facility] Comment on above: Order Comment: Speci men Type: BLOOD SPECIMEN Ordering Facility: [facility] Address: [address], [place] [address] Result Comment: This test is not suitable [...] 3243 pg/mL Second trimester : 1561 to 60180 pg/mL Third trimester : 8285 to >12175 pg/mL Post-menopausal Estradiol reference range: < 41 pg/mL Reference: 1. Estradiol - E2 (Estradiol III) [package insert V 3.0 Macedonian]. [facility], [place], [place], February 2016. Performed By: #### 1 0501-5, 2839-9, 2243-4 #### [facility] CLIA [id number] [facility]. [place], [place] [id number] [place] [address] [place] Follicle Diameter USon 07-18 [...] Performed By: Chary Acevedo; RDMS Read By: Arley Parikh M.D. MATERNAL MEDICINE [facility] Radiology Study observation (narrative) [facility] CNNURSEon 07-14-2024 CNNURSE Nurse Visit (REIAV) ALEIDA ARIZMENDI ([id number]) 1985 F Date Time Provider Department 07/14/24 [...] cycle per physician, see flowsheet for details. [facility] [employer] message sent. Medications reviewed and verified, instructions given. Patient denies any questions or concerns. Message sent to scheduling pool for next appt. Please schedule the patient for the following- Location: [place] Visit type: monitoring us / e2 / Date: 07/18 @7am Gee Devries RN July 14, 2024 1:50 PM Referring Provider: SUSHILA LEVY [[id number]] Allergies As of Date: 07/14/2024 Noted Allergy Reaction AMOXACILLIN (AMOXICILLIN) 03/09/2023 4 - Hives Comments: Skin test is negative. Challenge pending PENICILLINS 10/15/2020 4 - Hives Date Reviewed: 07/07/2024 Reviewed by: Nilton Zhang RN - Fully Assessed Reason for Visit: Infertility [285] Visit Diagnosis:Female infertility [N97.9] Order(s):FOLLICULAR US [facility] [[id number]] Order #: [id number]. #:[id number] IEWPOINTQty: 1 Prescriptions as of 07/14/2024 - metFORMIN (GLUCOPHAGE) 500 mg tablet Take 1 tablet by mouth two times a day. - dexAMETHasone (DECADRON) 0.5 mg tablet Take 1 tablet by mouth once daily. - Norethin Misael-Eth Estrad-FE (MICROGESTIN FE) 1.5 mg-30 mcg (21)/75 mg (7) tablet Take 1 tablet by mouth once daily. - ethynodiol diacetate-ethinyl estradiol 1 mg-35 mcg (ZOVIA 135E, 28,) 1-35 mg-mcg per tablet Start day [...] Status:Closed by MICHEL JOSEPH on 07/14/24 Normal [facility] Estradiol SerPl-mCncon 07-14 E2 [Mass/Vol] 48 pg/mL High 8-37 [facility] Comment on above: Order Comment: Speci men Type: BLOOD SPECIMEN Ordering Facility: [facility] Address: [facility] [place] [address] Result Comment: This test is not suitable [...] 3243 pg/mL Second trimester : 1561 to 97523 pg/mL Third trimester : 8285 to >35234 pg/mL Post-menopausal Estradiol reference range: < 41 pg/mL Reference: 1. Estradiol - E2 (Estradiol III) [package insert V 3.0 Macedonian]. [facility], [place], [place], February 2016. Performed By: #### 2 243-4 #### [facility] CLIA [id number] [place] [address] [place] Follicle Diameter USon [...] Visualized. no free fluid visualized Performed By: Dorie Betancourt RDMS Read By: Michel Joseph M.D. MATERNAL MEDICINE [facility] Radiology Study observation (narrative) [facility] CNN[facility]SE Nurse Visit (REIAV) ALEIDA ARIZMENDI ([id number]) 1985 F Date Time Provider Department 07/07/24 7:30 AM NURSE [facility] REJ REIAV During your visit today, [...] cycle per physician, see flowsheet for details. Spot formerly PlacePophart message sent. Medications reviewed and verified, instructions given. Patient denies any questions or concerns. Message sent to scheduling pool for next appt. Nilton Zhang RN July 07, 2024 1:31 PM Referring Provider: SUSHILA LEVY [[id number]] Allergies As of Date: 07/07/2024 Noted Allergy Reaction AMOXACILLIN (AMOXICILLIN) 03/09/2023 4 - Hives Comments: Skin test is negative. Challenge pending PENICILLINS 10/15/2020 4 - Hives Date Reviewed: 07/07/2024 Reviewed by: Nilton Zhang RN - Fully Assessed Reason for Visit: Infertility [285] Visit Diagnosis:Female infertility [N97.9] Order(s):FOLLICULAR US [facility] [[id number]] Order #: [id number]. #:[id number] IEWPOINTQty: 1 Prescriptions as of 07/07/2024 - [...] Status:Closed by NILTON ZHANG on 07/07/24 Normal [facility] Estradiol SerPl-mCncon 07-07 E2 [Mass/Vol] 63 pg/mL High 8-37 [facility] Comment on above: Order Comment: Speci men Type: BLOOD SPECIMEN Ordering Facility: [facility] Address: [address] [place] [address] Result Comment: This test is not suitable [...] 3243 pg/mL Second trimester : 1561 to 04890 pg/mL Third trimester : 8285 to >17065 pg/mL Post-menopausal Estradiol reference range: < 41 pg/mL Reference: 1. Estradiol - E2 (Estradiol III) [package insert V 3.0 Macedonian]. [facility], [place], [place], February 2016. Performed By: #### 2 243-4 #### [facility] CLIA [id number] [facility] [place] [address] [place] Follicle Diameter USon 07-07 Indication Follicle monitoring Impression Right Ovary: [...] free fluid visualized Performed By: Chary Acevedo; [facility] Read By: Radha Gilliam M.D. MATERNAL MEDICINE [facility] Radiology Study observation (narrative) [facility] Jerrell 07-04-2024 ADELEN Telephone (REIAV) ALEIDA ARIZMENDI ([id number]) 1985 F Date Time Provider Department 07/04/24 MICHEL JOSEPH During your visit today, we recorded the following information about you: Sushila Barbour 07/04/2024 10:50 AM Signed Super Ovulation Patient started period Thursday and following up on next steps Mary Ann Kirkland RN 07/04/2024 2:22 PM Addendum metformin 500mg [...] through trigger injection TIC SC sent to [facility] to review plan discussed last cycle, listed above Sent to [employer]. Location: [place] Visit type: SO baseline Date: 07/07/24 @ [...] Primary Visit Diagnosis:Female infertility [N97.9] Order(s):FOLLICULAR US [facility] [[id number]] Order #: [id number]: 1 STANDING ESTRADIOL-17B BLD [SQE2] Order #: [id number] STANDING Prescriptions as of 07/04/2024 - metFORMIN [...] Status:Closed by MARY ANN KIRKLAND on 07/04/24 [facility] 06-15-2024 [facility]REDIGNAV[facility] ALEIDA ARIZMENDI ([id number]) 1985 F Date Time Provider Department 06/15/24 7:00 AM NURSE [facility] [facility] REJ KAREN During your visit today, we recorded the [...] cycle per physician, see flowsheet for details. Xoft message sent. Medications reviewed and verified, instructions given. Patient denies any questions or concerns. Message sent to scheduling pool for next appt. Nilton Zhang RN June 15, 2024 1:02 PM Referring Provider: MICHEL JOSEPH [[id number]] Allergies As of Date: 06/15/2024 Noted Allergy Reaction AMOXACILLIN (AMOXICILLIN) 03/09/2023 4 - Hives Comments: Skin test is negative. Challenge pending PENICILLINS 10/15/2020 4 - Hives Date Reviewed: 06/15/2024 Reviewed by: Nilton Zhang RN - Fully Assessed Reason for Visit: Infertility [285] Visit Diagnosis:Primary female infertility [N97.9] Order(s):FOLLICULAR US [facility] [[id number]] Order #: [id number]. #:[id number] IEWPOINTQty: 1 Prescriptions as of 06/15/2024 - [...] Status:Closed by NILTON ZHANG on 06/15/24 Normal [facility] E2 [Mass/Vol] 315 pg/mL High 8-37 [facility] Comment on above: Order Comment: Speci men Type: BLOOD SPECIMEN Ordering Facility: [facility] Address: [address] [place] [address] Result Comment: This test is not suitable [...] 3243 pg/mL Second trimester : 1561 to 65268 pg/mL Third trimester : 8285 to >30183 pg/mL Post-menopausal Estradiol reference range: < 41 pg/mL Reference: 1. Estradiol - E2 (Estradiol III) [package insert V 3.0 Macedonian]. [facility], [place], [place], February 2016. Performed By: #### 1 0501-5, 2839-9, 2243-4 #### [facility] CLIA [id number] [facility]. [place], [place] [id number] [place] [address] Follicle Diameter [facility] [place] Indication Follicle monitoring Impression Right Ovary: [...] Read By: Radha Gilliam M.D. MATERNAL MEDICINE [facility] Radiology Study observation (narrative) [facility] 06-15-2024 Lutropin Qn 4.1 m[IU]/mL Normal See comment [facility] Comment on above: Order Comment: Speci men Type: BLOOD SPECIMEN Ordering Facility: [facility] Address: [address] [place] [address] Result Comment: Refe rence range: Follicular: 2.4-12.6 mIU/mL Midcycle: 14.0-95.6 mIU/mL Luteal: 1.0-11.4 mIU/mL Post Sylwia: 7.7-58.5 mIU/mL Performed By: #### 1 0501-5, 2839-9, 2243-4 #### [facility] CLIA [id number] [facility]. [place], [place] [id number] [place] [address] Progest SerPl-mCncon 024 Progesterone [Mass/Vol] 0.4 ng/mL Normal See comment [facility] Comment on above: Order Comment: Speci men Type: BLOOD SPECIMEN Ordering Facility: [facility] Address: [address] [place] [address] Result Comment: Mens trual Cycle Progesterone Reference Ranges: Follicular: <1.0 ng/mL Ovulation: <12.1 ng/mL Luteal: 1.8 to 23.9 ng/mL. Progesterone Reference Ranges vary by gestational period: First Trimester: 11.0 to 44.3 ng/mL Second Trimester: 25.4 to 83.3 ng/mL Third Trimester: 58.7 to 214 ng/mL Post menopausal Progesterone: <0.5 ng/mL Reference: 1. Progesterone (Progesterone III) [package insert V 1.0 Macedonian]. [facility], [place], [place]. June 2015. Performed By: #### 1 0501-5, 2839-9, 3-4 #### [facility] CLIA [id number] [facility] [place] [address] [facility] CNNURSE Nurse Visit (REIAV) ALEIDA ARIZMENDI ([id number]) 1985 F Date Time Provider Department 06/13/24 8:15 AM NURSE [facility] WILLIAM WEAVERDIGNAAlek During your visit today, we recorded the [...] cycle per physician, see flowsheet for details. Fromlabt message sent. Medications reviewed and verified, instructions given. Patient denies any questions or concerns. Message sent to scheduling pool for next appt. Location: [place] Visit type: IVF us/e2/p4/lh Date: 06/15 @ 0700 Mary Ann Kirkland RN June 13, 2024 12:44 PM Referring Provider: MICHEL JOSEPH [[id number]] Allergies As of Date: 06/13/2024 Noted Allergy Reaction AMOXACILLIN (AMOXICILLIN) 03/09/2023 4 - Hives Comments: Skin test is negative. Challenge pending PENICILLINS 10/15/2020 4 - Hives Date Reviewed: 06/03/2024 Reviewed by: Nilton Zhang RN - Fully Assessed Reason for Visit: Infertility [285] Visit Diagnosis:Primary female infertility [N97.9] Order(s):FOLLICULAR US I [[id number]] Order #: [id number]. #:[id number] IEWPOINTQty: 1 LUTEINIZING HORMONE [SQLH] Order #: [id number] FUTURE PROGESTERONE [SQPROG] Order #: [id number] FUTURE ESTRADIOL-17B BLD [SQE2] Order #: [id number] FUTURE Prescriptions as of 06/13/2024 - metFORMIN [...] by MARY ANN KIRKLAND on 06/13/24 Normal [facility] Estradiol SerPl-mCncon 06-13 E2 [Mass/Vol] 259 pg/mL High 8-37 [facility] Comment on above: Order Comment: Speci men Type: BLOOD SPECIMEN Ordering Facility: [facility] Address: [address], [place] [address] Result Comment: This test is not suitable [...] 3243 pg/mL Second trimester : 1561 to 70515 pg/mL Third trimester : 8285 to >36528 pg/mL Post-menopausal Estradiol reference range: < 41 pg/mL Reference: 1. Estradiol - E2 (Estradiol III) [package insert V 3.0 Macedonian]. [facility], [place], [place], February 2016. Performed By: #### 2 243-4 #### [facility] CLIA [id number] [facility] [place] [address] [place] Follicle Diameter USon [...] free fluid visualized Performed By: Chary Acevedo; [facility] Read By: Arley Parikh M.D. MATERNAL MEDICINE [facility] Radiology Study observation (narrative) [facility] CNNURSEon 06-10-2024 CNNURSE Nurse Visit (REIAV) LESLI ARIZMENDILE ([id number]) 1985 F Date Time Provider Department 06/10/24 7:00 AM JAZMINE GONZALEZ During your visit today, we recorded [...] Devries RN June 10, 2024 7:09 AM [facility] Gonzalez MD 06/10/2024 12:58 PM Signed LOUISA Attending Physician Note: Ultrasound and lab results reviewed. Based on review of ultrasound and lab results, medication dose and follow up date plans provided. See cycle flowsheet for dosing details. [facility] Gonzalez MD, Nilton Mendoza RN 06/10/2024 12:58 PM Signed RN called patient, name and verified. Plan given for IVF cycle per physician, see flowsheet for details. Spot formerly [employer] message sent. Medications reviewed and verified, instructions [...] Modules accepted: Orders Referring Provider: MICHEL JOSEPH [[id number]] Allergies As of Date: 06/10/2024 Noted Allergy Reaction AMOXACILLIN (AMOXICILLIN) 03/09/2023 4 - Hives Comments: Skin test is negative. Challenge pending PENICILLINS 10/15/2020 4 - Hives Date Reviewed: 06/03/2024 Reviewed by: Nilton Zhang RN - Fully Assessed Reason for Visit: Infertility [285] Visit Diagnosis:Primary female infertility [N97.9] Order(s):[facility] [[id number]] Order #: [id number]. #:[id number] IEWPOINTQty: 1 metFORMIN (GLUCOPHAGE) 500 mg tabletTake [...] Status:Closed by NILTON ZHANG on 06/10/24 Normal [facility] Estradiol SerPl-ncon 06-10 E2 [Mass/Vol] 160 pg/mL High 8-37 [facility] Comment on above: Order Comment: Speci men Type: BLOOD SPECIMEN Ordering Facility: [facility] Address: [address], [place] [address] Result Comment: This test is not suitable [...] 3243 pg/mL Second trimester : 1561 to 32121 pg/mL Third trimester : 8285 to >55786 pg/mL Post-menopausal Estradiol reference range: < 41 pg/mL Reference: 1. Estradiol - E2 (Estradiol III) [package insert V 3.0 Macedonian]. [facility], [place], [place], February 2016. Performed By: #### 2 243-4 #### [facility] CLIA [id number] [address] [facility] [place] [address] [facility] Follicle Diameter [facility] [place]10 Indication Follicle monitoring Impression Right Ovary: [...] Performed By: Melodie Fitzgerald RDMS Read By: Jazmine Gonzalez MD MATERNAL MEDICINE [facility] Radiology Study [facility]narrative[facility] Nurse Visit (MEGIAV) ALEIDA ARIZMENDI ([id number]) 1985 F Date Time Provider Department 06/06/24 8:45 AM ARLEY PARIKH During your visit today, we recorded [...] cycle per physician, see flowsheet for details. Spot formerly [employer] message sent. Medications reviewed and verified, instructions given. Patient denies any questions or concerns. Message sent to scheduling pool for next appt. Location: [place] Visit type: so us/e2 Date: 06/10 @ 7am Mary Ann Kirkland RN June 06, 2024 3:02 PM Referring Provider: MICHEL JOSEPH [[id number]] Allergies As of Date: 06/06/2024 Noted Allergy Reaction AMOXACILLIN (AMOXICILLIN) 03/09/2023 4 - Hives Comments: Skin test is negative. Challenge pending PENICILLINS 10/15/2020 4 - Hives Date Reviewed: 06/03/2024 Reviewed by: Nilton Zhang RN - Fully Assessed Reason for Visit: Infertility [285] Visit Diagnosis:Primary female infertility [N97.9] Order(s):FOLLICULAR US [facility] [[id number]] Order #: [id number]. #:[id number] IEWPOINTQty: 1 Prescriptions as of 06/06/2024 - [...] by MARY ANN KIRKLAND on 06/06/24 Normal [facility] Estradiol SerPl-mCncon 06-06 E2 [Mass/Vol] 79 pg/mL High 8-37 [facility] Comment on above: Order Comment: Speci men Type: BLOOD SPECIMEN Ordering Facility: [facility] Address: [address] [place] [address] Result Comment: This test is not suitable [...] 3243 pg/mL Second trimester : 1561 to 47750 pg/mL Third trimester : 8285 to >25820 pg/mL Post-menopausal Estradiol reference range: < 41 pg/mL Reference: 1. Estradiol - E2 (Estradiol III) [package insert V 3.0 Macedonian]. [facility], [place], [place], February 2016. Performed By: #### 2 243-4 #### [facility] CLIA [id number] [facility] [place] [address] [place] Follicle Diameter USon [...] Performed By: Chary Acevedo; RDMS Read By: Arley Parikh M.D. MATERNAL MEDICINE [facility] Radiology Study observation (narrative) [facility] CNNURSEon 06-03-2024 CNNURSE Nurse Visit (REIAV) ALEIDA ARIZMENDI ([id number]) 1985 F Date Time Provider Department 06/03/24 [...] cycle per physician, see flowsheet for details. Fromlabt message sent. Medications reviewed and verified, instructions given. Patient denies any questions or concerns. Message sent to scheduling pool for next appt. Nilton Zhang RN June 03, 2024 12:50 PM Referring Provider: MICHEL JOSEPH [[id number]] Allergies As of Date: 06/03/2024 Noted Allergy Reaction AMOXACILLIN (AMOXICILLIN) 03/09/2023 4 - Hives Comments: Skin test is negative. Challenge pending PENICILLINS 10/15/2020 4 - Hives Date Reviewed: 06/03/2024 Reviewed by: Nilton Zhang RN - Fully Assessed Reason for Visit: Infertility [285] Visit Diagnosis:Primary female infertility [N97.9] Order(s):FOLLICULAR [facility] [[id number]] Order #: [id number]. #:[id number] IEWPOINTQty: 1 Prescriptions as of 06/03/2024 - Norethin Misael-Eth Estrad-FE (MICROGESTIN FE) 1.5 mg-30 mcg (21)/75 mg (7) tablet Take 1 tablet by mouth once daily. - ethynodiol diacetate-ethinyl estradiol 1 mg-35 mcg (ZOVIA /35E, ,) 1-35 mg-mcg per tablet Start day [...] Status:Closed by MICHEL JOSEPH on 06/03/24 Normal [facility] Estradiol SerPl-[facility] 06-03 E2 [Mass/Vol] 86 pg/mL High 8-37 [facility] Comment on above: Order Comment: Speci men Type: BLOOD SPECIMEN Ordering Facility: [facility] Address: [address] [place] [address] [place] [address] Result Comment: This test is not suitable [...] 3243 pg/mL Second trimester : 1561 to 76570 pg/mL Third trimester : 8285 to >73146 pg/mL Post-menopausal Estradiol reference range: < 41 pg/mL Reference: 1. Estradiol - E2 (Estradiol III) [package insert V 3.0 Macedonian]. [facility], [place], [place], February 2016. Performed By: #### 1 0501-5, 2839-9, 2243-4 #### [facility] CLIA [id number] [facility] [place] [address] [place] Follicle Diameter USon 06-03 Indication Follicle monitoring Impression Right Ovary: [...] Read By: Michel Joseph M.D. MATERNAL MEDICINE [facility] Radiology Study [facility] (narrative) [facility]SE Nurse Visit (REIAV) ALEIDA ARIZMENDI ([id number]) 1985 F Date Time Provider Department 05/27/24 7:00 AM NURSE [facility] REJ REIAV During your visit today, [...] Zhang RN May 27, 2024 7:02 AM [facility] Gonzalez MD 05/27/2024 1:07 PM Signed LOUISA Attending Physician Note: Ultrasound and lab results reviewed. Based on review of ultrasound and lab results, medication dose and follow up date plans provided. See cycle flowsheet for dosing details. [facility] Gonzalez MD, CROW Nilton Zhang RN 05/27/2024 1:06 PM Signed RN called patient, name and verified. Plan given for ISuper Ov cycle per physician, see flowsheet for details. Spot formerly [employer] message sent. Medications reviewed and verified, instructions given. Patient denies any questions or concerns. Message sent to scheduling pool for next appt. Nilton Zhang RN May 27, 2024 1:06 PM Referring Provider: KOBI WEINER [[id number]] Allergies As of Date: 05/27/2024 Noted Allergy Reaction AMOXACILLIN (AMOXICILLIN) 03/09/2023 4 - Hives Comments: Skin test is negative. Challenge pending PENICILLINS 10/15/2020 4 - Hives Date Reviewed: 05/27/2024 Reviewed by: Nilton Zhang RN - Fully Assessed Reason for Visit: Infertility [285] Visit Diagnosis:Female infertility [N97.9] Order(s):FOLLICULAR [facility] [[id number]] Order #: [id number]. #:[id number] IEWPOINTQty: 1 Prescriptions as of 05/27/2024 - [...] Status:Closed by NILTON ZHANG on 05/27/24 Normal [facility] Estradiol SerPl-ncon 05-27 E2 [Mass/Vol] 35 pg/mL Normal 8-37 [facility] Comment on above: Order Comment: Speci men Type: BLOOD SPECIMEN Ordering Facility: [facility] Address: [address] [place] [address] Result Comment: This test is not suitable [...] 3243 pg/mL Second trimester : 1561 to 56941 pg/mL Third trimester : 8285 to >69098 pg/mL Post-menopausal Estradiol reference range: < 41 pg/mL Reference: 1. Estradiol - E2 (Estradiol III) [package insert V 3.0 Macedonian]. [facility], [place], [place], February 2016. Performed By: #### 2 243-4 #### [facility] CLIA [id number] [facility] [place] [address] [facility] Follicle Diameter USon 05-27 Indication Follicle monitoring [...] Visualized. no free fluid visualized Performed By: Dorie Betancourt RDMS Read By: Jazmine Gonzalez MD MATERNAL MEDICINE [facility] Radiology Study observation (narrative) [facility] TYPE + SCREENon 05-27-[address] [facility] Comment on above: Order Comment: Speci men Type: BLOOD SPECIMEN Ordering Facility: [facility] Address: [address] [place] [address] Performed By: #### 1 0501-5, 4108-9, 2243-4 #### [facility] CLIA [id number] [facility] [place] [address] [facility] HISTORICAL AB SCR STATUS Negative Normal [facility] Comment on above: Order Comment: Speci men Type: BLOOD SPECIMEN Ordering Facility: [facility] Address: [address] [place] [address] Performed By: #### 1 0501-5, 28399, 2243-4 #### [facility] CLIA [id number] [address] [facility] [place] [address] [facility] Rh Nom (Bld) Positive Normal [facility] Comment on above: Order Comment: Speci men Type: BLOOD SPECIMEN Ordering Facility: [facility] Address: [address] [place] [address] Performed By: #### 1 0501-5, 2839-9, 2243-4 #### [facility] CLIA [id number] [facility] [place] [address] [facility] TYPE AND SCREEN EXPIRATION 05/30/2024 23:[address] [facility] Comment on above: Order Comment: Speci men Type: BLOOD SPECIMEN Ordering Facility: [facility] Address: [address] [place] [address] Performed By: #### 1 0501-5, 2839-9, 2243-4 #### [facility] CLIA [id number] [address] [facility] [place] [address] [facility] 05-24-2024 HNO ID: [id number] Author: MICHEL JOSEPH MD Service: ? Author [...] Count Sperm M 365.50 % Motile Sperm (%VT + %MACHINE SHOP INSPECTOR) >=40 % 76 Forward Progression 3 = Good motility, unidirectional Total Motile Sperm M 277.78 Sperm Diff, John >=4 % 2 (L) Undiff Rnd Cell W Rout Semen Anly <1.00 M/mL 0.70 Abstinence Time Days 2.5 Collection Time 0817 Receipt Time 0818 Semen Age 0 - 60 Minutes 27 Semen Comment 1 Aleida Arizmendi : 1985 Semen Comment 2 Concentration [...] follow up with me. Michel Joseph MD [facility] CNCOon 05-13-2024 CNCO Letter Text [facility] CNOVon 05-13-2024 CNOV Office Visit (IVFBE) ALEIDA ARIZMENDI ([id number]) 1985 F Date Time Provider Department 05/13/24 11:30 AM MICHEL JOSEPH IVFBE During your visit today, we recorded the following information about you: Temperature Pulse Respiration Blood pressure 97.9 degrees 80/minute 18/minute 145/72 Weight Height Last Period 113.4 kg 1.626 m 05/06/24 Michel Joseph MD 05/15/2024 12:58 PM Signed Aleida Arizmendi presents for hysteroscopy. Indication: Irregular Bleeding. [...] Michel Joseph MD Referring Provider: MICHEL JOSEPH [[id number]] Allergies As of Date: 05/13/2024 Noted Allergy Reaction AMOXACILLIN (AMOXICILLIN) 03/09/2023 4 - Hives Comments: Skin test is negative. Challenge pending PENICILLINS 10/15/2020 4 - Hives Date Reviewed: 05/13/2024 Reviewed by: Aleida Gardner RN - Fully Assessed Primary Visit Diagnosis:Pre-operati ve laboratory examination [Z01.812] Other Visit Diagnoses:Endometrial polyp [N84.0] Encounter for fertility testing [Z31.41] Order(s):HCG QUAL UR B/O [[id number]] Order #: [id number] SURGICAL PATHOLOGY [[id number]] Order #: [id number]. #:[id number] Prescriptions as of 05/15/2024 - Norethin Misael-Eth [...] Status:Closed by MICHEL JOSEPH on 05/15/24 Normal [facility] HCG QUAL UR B/OOrdered By: Shaka Gardner on 05-13-2024 status Negative neg - pos Robe mars [facility] Quality Check Yes yes/no [facility] SURGICAL PATHOLOGYon 024 CASE REPORT Normal [facility] Comment on above: Order Comment: Speci men Type: TISSUE SPECIMEN Ordering Facility: [facility] Address: [address] [place] [address] Result Comment: Surg ica Pathology Report Case: [id number] Authorizing Provider: Odette Villa MD Collected: 05/13/2024 12:26 PM [facility] Received: 05/13/2024 03:34 PM Pathologist: Harry Hodge MD Specimen: Endometrium, Biopsy Performed By: #### S #### [facility] CLIA [id number] [address] [place] [address] [place] CLINICAL HISTORY 38yo with something on imaging concerning for polyp Normal [facility] Comment on above: Order Comment: Speci men Type: TISSUE SPECIMEN Ordering Facility: [facility] Address: [address] [place] [address] Performed By: #### S #### [facility] CLIA [id number] [address] [place] [address] [place] FINAL DIAGNOSIS Normal [facility] Comment on above: Order Comment: Speci men Type: TISSUE SPECIMEN Ordering Facility: [facility] Address: [address] [place] [address] Result Comment: A. E ndometrium, biopsy: - Proliferative endometrium. ACV/dsh 05/18/2024 Performed By: #### S #### [facility] CLIA [id number] [address] [place] [address] [place] FINAL PERFORMING LAB Normal [facility] Comment on above: Order Comment: Speci men Type: TISSUE SPECIMEN Ordering Facility: [facility] Address: [address] [place] [address] Result Comment: Diag nostic interpretation performed at [facility], [address] [place] [address] CLIA# [id number] Framing Mechanic: Vincent Leon M.D. Performed By: #### S #### [facility] CLIA [id number] [address] [place] [address] [place] GROSS DESCRIPTION Normal [facility] Comment on above: Order Comment: Speci men Type: TISSUE SPECIMEN Ordering Facility: [facility] Address: [address] [place] [address] Result Comment: A. E ndometrium, Biopsy Received in formalin are multiple butt to butt-white, soft feathery segments of tissue admixed mucinous material aggregating to 0.4 x 0.2 x 0.1 cm. Totally submitted in one cassette. DB May 13, 2024 11:22 PM Gross examination performed at [facility], [address] [place] [address] Performed By: #### S #### [facility] CLIA [id number] [address] [place] [address] CNPNon 05-05-2024 CNPN Telephone (MEGIAV) ALEIDA ARIZMENDI ([id number]) 1985 F Date Time Provider Department 05/05/24 MICHEL JOSEPH During your visit today, we recorded the following information about you: Nilton Zhang RN 05/05/2024 12:13 PM Signed Called patient. No answer. Left VM. Nilton Zhang RN May 05, 2024 12:13 PM Nilton Zhang RN 05/05/2024 2:58 PM Signed Called [...] - Hives Date Reviewed: 04/29/2024 Reviewed by: Sushila Levy APRN.[employer]ATE - Fully Assessed Prescriptions as of 05/05/2024 - Norethin Misael-Eth Estrad-FE (MICROGESTIN FE) 1.5 mg-30 mcg (21)/75 mg (7) tablet Take 1 tablet by mouth once daily. - ethynodiol diacetate-ethinyl estradiol 1 mg-35 mcg (ZOVIA /35E, 28,) 1-35 mg-mcg per tablet Start day [...] Encounter Status:Closed by NILTON ZHANG on 05/05/24 [facility] Jerrell 05-04-2024 ADELEN Telephone (REIBD) ALEIDA ARIZMENDI ([id number]) 1985 F Date Time Provider Department 05/04/24 MICHEL JOSEPH During your visit today, we recorded the following information about you: Sushila Barbour 05/04/2024 9:22 AM Signed Patient hasn't received call discussing next steps after pt ultrasound last week Nilton Zhang RN 05/04/2024 3:52 PM Signed Awaiting response from Dr. Joseph regarding plan for patient folloowing SIS last week. Mychart sent to patient. Nilton Zhang RN May 04, 2024 3:52 PM Allergies As of Date: 05/04/2024 Noted Allergy Reaction AMOXACILLIN (AMOXICILLIN) 03/09/2023 4 - Hives Comments: Skin test is negative. Challenge pending PENICILLINS 10/15/2020 4 - Hives Date Reviewed: 04/29/2024 Reviewed by: Sushila Levy APRN.[employer] MATE - Fully Assessed Reason for Visit: Patient Question [6511] Prescriptions as of 05/04/2024 - Norethin Misael-Eth [...] Encounter Status:Closed by NILTON ZHANG on 05/04/24 [facility] Jerrell 05-03-2024 NAVIN Telephone (REIBD) KILOALEIDA FERNANDES ([id number]) 1985 F Date Time Provider Department 05/03/24 MICHEL JOSEPH During your visit today, we recorded the following information about you: Ana Sotomayor 05/03/2024 11:30 AM Signed Pt would like to discuss plans , pt had sis 04/29 Nilton Zhang, LAUREN 05/04/2024 3:51 PM Signed Message sent to Dr. Joseph for plan for patient following her SIS last week. Nilton Zhang RN May 04, 2024 3:51 PM Allergies As of Date: 05/03/2024 Noted Allergy Reaction AMOXACILLIN (AMOXICILLIN) 03/09/2023 4 - Hives Comments: Skin test is negative. Challenge pending PENICILLINS 10/15/2020 4 - Hives Date Reviewed: 04/29/2024 Reviewed by: Sushila Levy APRN.[employer] MATE - Fully Assessed Reason for Visit: Next [...] Encounter Status:Closed by NILTON ZHANG on 05/04/24 [facility] Rick 04-29-2024 CNOV Office Visit (MEGIAV) ALEIDA ARIZMENDI ([id number]) 1985 F Date Time Provider Department 04/29/24 11:00 AM SUSHILA LEVY During your visit today, we recorded the following information about you: Pulse Blood pressure Weight Height 64/minute 144/99 117.9 kg 1.626 m Sushila Levy APRN.[employer] MATE 04/29/2024 12:08 PM Signed Aleida Michaelrayraykeely is a 38 year old here for [facility]. Referred by: Michel Joseph [address] [facility] [address] Chief Complaint: irregular bleeding Endometrial Biopsy: No [...] Plan of Care Visit completed when applicable. Sushila Levy APRN.[employer] MATE PROCEDURE: EXTERNAL GENITALIA: Normal in appearance without [...] procedure well. See ViewPoint for procedure results. Sushila Levy APRN.[employer] MATE Referring Provider: MICHEL JOSEPH [[id number]] Allergies As of Date: 04/29/2024 Noted Allergy Reaction AMOXACILLIN (AMOXICILLIN) 03/09/2023 4 - Hives Comments: Skin test is negative. Challenge pending PENICILLINS 10/15/2020 4 - Hives Date Reviewed: 04/29/2024 Reviewed by: Sushila Levy APRN.[employer] MATE - Fully Assessed Reason for Visit: Infertility [285] Primary Visit Diagnosis:Pre-procedu re lab exam [Z01.812] Other Visit Diagnosis:Fertility testing [Z31.41] Order(s):HCG QUAL UR B/O [[id number]] Order #: [id number] SONOHYSTEROGRAPHY (SIS) [facility] [[id number]] Order #: [id number]. #:[id number] IEWPOINTQty: 1 Prescriptions as of 05/01/2024 - Norethin Misael-Eth Estrad-FE (MICROGESTIN FE) 1.5 mg-30 mcg (21)/75 mg (7) tablet Take 1 tablet by mouth once daily. - ethynodiol diacetate-ethinyl estradiol 1 mg-35 mcg (ZOVIA 135E, 28,) 1-35 mg-mcg per tablet Start day [...] Status:Closed by MICHEL JOSEPH on 05/01/24 Normal [facility] HCG QUAL UR B/OOrdered By: Colton Gardner on 04-29-2024 status Negative neg - pos [facility] Quality Check Yes yes/no [facility] US Uterus and Fallopian tube s W saline IUon 04-29-2024 [facility] Radiology Study observation (narrative) [facility] CNNURSEon 04-15-2024 CNNURSE Nurse Visit (REIAV) ALEIDA ARIZMENDI ([id number]) 1985 F Date Time Provider Department 04/15/24 7:45 AM NURSE [facility]ISA [facility] REJ REIAV During your visit today, [...] Zhang RN April 15, 2024 10:05 AM Jazmine Gonzalez MD 04/15/2024 2:48 PM Signed LOUISA [...] the OCP or after a withdrawal bleed. Jazmine Gonzalez MD, CROW Referring Provider: KOBI WEINER [[id number]] Allergies As of Date: 04/15/2024 Noted Allergy Reaction AMOXACILLIN (AMOXICILLIN) 03/09/2023 4 - Hives Comments: Skin test is negative. Challenge pending PENICILLINS 10/15/2020 4 - Hives Date Reviewed: 04/15/2024 Reviewed by: Nilton Zhang RN - Fully Assessed Reason for Visit: Infertility [285] Primary Visit Diagnosis:Irregular menses [N92.6] Other Visit Diagnosis:Female infertility [N97.9] Order(s):FOLLICULAR US [facility] [[id number]] Order #: [id number]. #:[id number] IEWPOINTQty: 1 Norethin Misael-Eth Estrad-FE (MICROGESTIN FE) [...] Status:Closed by NILTON ZHANG on 04/15/24 Normal [facility] Estradiol SerPl-mCncon 04-15 E2 [Mass/Vol] 38 pg/mL High 8-37 [facility] Comment on above: Order Comment: Speci men Type: BLOOD SPECIMEN Ordering Facility: [facility] Address: [address] [place] [address] Result Comment: This test is not suitable [...] 3243 pg/mL Second trimester : 1561 to 98767 pg/mL Third trimester : 8285 to >85313 pg/mL Post-menopausal Estradiol reference range: < 41 pg/mL Reference: 1. Estradiol - E2 (Estradiol III) [package insert V 3.0 Macedonian]. [facility], [place], [place], February 2016. Performed By: #### 2 243-4 #### [facility] CLIA [id number] [address] [facility] [place] [address] [place] Follicle Diameter USon [...] Performed By: Melodie Fitzgerald RDMS Read By: Jazmine Gonzalez MD MATERNAL MEDICINE [facility] Radiology Study observation (narrative) [facility] SerPl-aCncon 04-15-2024 Lutropin Qn 10.9 m[IU]/mL Normal See comment [facility] Comment on above: Order Comment: Speci men Type: BLOOD SPECIMEN Ordering Facility: [facility] Address: [address] [place] [address] Result Comment: Refe rence range: Follicular: 2.4-12.6 mIU/mL Midcycle: 14.0-95.6 mIU/mL Luteal: 1.0-11.4 mIU/mL Post [place]: 7.7-58.5 mIU/mL Performed By: #### 2 243-4 #### [facility] CLIA [id number] [address] [facility] [place], [place] [address] [place] [address] [place] Progest SerPl-mCncon 024 Progesterone [Mass/Vol] ng/mL Normal See comment [facility] Comment on above: Order Comment: Speci men Type: BLOOD SPECIMEN Ordering Facility: [facility] Address: [address] [place] [address] Result Comment: Mens trual Cycle Progesterone Reference Ranges: Follicular: <1.0 ng/mL Ovulation: <12.1 ng/mL Luteal: 1.8 to 23.9 ng/mL. Progesterone Reference Ranges vary by gestational period: First Trimester: 11.0 to 44.3 ng/mL Second Trimester: 25.4 to 83.3 ng/mL Third Trimester: 58.7 to 214 ng/mL Post menopausal Progesterone: <0.5 ng/mL Reference: 1. Progesterone (Progesterone III) [package insert V 1.0 Macedonian]. [facility], [place], [place]. June 2015. Performed By: #### 2 243-4 #### [facility] CLIA [id number] [address] [facility] [place] [address] [place] [facility] 17 HYDROXYPROGESTERONEon 17-Hydroxyprogesterone [Mass/Vol] 38 ng/dL Normal [...] Endocrinol Metab. 1991;73:674-686; J Clin Endocrinol Metab. 1989;69;8461-2255; J Clin Endocrinol Metab. 1994;78:226-270. Pediatr Res 1988;23:525-529. MedLinePlus (accessed 02/27/14). This test was developed and its analytical performance characteristics have been determined by [facility] ([facility] [place], [place]. It has not been cleared or approved by the U.S. Food and Drug Administration. This assay has been validated pursuant to the CLIA regulations and is used for clinical purposes. Performed By: #### 1 7HYDP #### BLOSSOM Goodwin ([id number]) [facility] ([id number]) [address] [place] [address] [place] [address] 17 HYDROXYPROGESTERONEon 17-Hydroxyprogesterone [Mass/Vol] Test Not Performed. data entry processor error - Test reordered. Normal [facility] Comment on above: Performed By: #### 1 [facility] #### PATY FRANCISCO C ([id number]) , [facility] 04-07-2024 CNPN Telephone (REIBD) ALEIDA ARIZMENDI ([id number]) 1985 F Date Time Provider Department 04/07/24 JAZMINE GONZALEZ During your visit today, we recorded the following information about you: Greer Horton 04/07/2024 11:33 AM Signed Pt has ques on getting her labs done in dante will they be stat Ar Hennessy RN 04/08/2024 8:39 AM Signed Call to pt at cell number listed Pt states that she had blood drawn locally since she is on vacation and call about results. Reviewed we have not received them yet but will keep a look out. Pt states she has the results and will send them via [facility] [employer] [facility] Pt verbalized understanding Ar Hennessy RN April 08, 2024 8:39 AM Allergies As of Date: 04/07/2024 Noted Allergy Reaction AMOXACILLIN (AMOXICILLIN) 03/09/2023 4 - Hives Comments: Skin test is negative. Challenge pending PENICILLINS 10/15/2020 4 - Hives Date Reviewed: 03/08/2024 Reviewed by: Kari Cain MA - Fully Assessed Reason for Visit: nilton pt has ques on getting her labs in dante [Other] Prescriptions as of 04/08/2024 - ethynodiol [...] w*10/30/2023 Missed [O02.1] 10/30/2023 Encounter Status:Closed by AR HENNESSY on 04/08/24 Normal [facility] Progest Gretchenfidel 07-25-2 024 Progesterone [Mass/Vol] 0.2 ng/mL Normal <1.4 C [facility] Comment on above: Result Comment: (NOT E) NORMAL MENSTRUATING FOLLICULAR PHASE <1.4 NG/ML LUTEAL PHASE 3.3-26.0 NG/ML MID LUTEAL PHASE 4.4-28.0 NG/ML POST-MENOPAUSAL FEMALES <0.7 NG/ML FEMALES FIRST TRIMESTER 11.0-45.0 NG/ML SECOND TRIMESTER 26.0-89.0 NG/ML THIRD TRIMESTER 46.0-423.0 NG/ML Performed By: #### 2 839-9 #### PATY Mchugh ([id number]) [employer] ([id number]) [address] [place] [address] Progesterone [Mass/Vol] Test Not Perform ed. data entry processor error - Test reordered. Normal <1.4 [facility] Comment on above: Performed By: #### 2 839-9 #### PATY Mchugh ([id number]) , [facility] TSH SerPl-aCncon 04-07-2024 TSH Qn 0.974 MCIU/ML Normal 0.400-4.500 [employer] Comment on above: Performed By: #### 3 016-3 #### PATY Mchugh ([id number]) [employer] ([id number]) [address] [place] [address] TSH Qn Test Not Performed. data entry processor error - Test reordered. Normal 0.400-4.500 [facility] Comment on above: Performed By: #### 3 016-3 #### PATY Mchugh ([id number]) , [facility] Testost SerPl-mCncon 024 Testosterone [Mass/Vol] 48 ng/dL Normal 14-76 C [facility] Comment on above: Performed By: #### 2 986-8 #### PATY Mchugh ([id number]) [facility] [employer] ([id number]) [address] [place] [address] Testosterone [Mass/Vol] Test Not Perform ed. data entry processor error - Test reordered. Normal 14- [employer] Comment on above: Performed By: #### 2 986-8 #### PATY Mchugh ([id number]) , [facility] B-HCG SerPl-aCncon HCG.beta subunit Qn m[IU]/mL Normal <5.0 [facility] Comment on above: Order Comment: Speci men Type: BLOOD SPECIMEN Ordering Facility: [facility] Address: [address] [place] [address] Result Comment: João crowanne-marie Performed By: #### 2 1198-7 #### [facility] CLIA [id number] [address] [place] [address] [place] Progest SerPl-mCncon 07-22-2 024 Progesterone [Mass/Vol] 0.3 ng/mL Normal See comment [facility] Comment on above: Order Comment: Speci men Type: BLOOD SPECIMEN Ordering Facility: [facility] Address: [address] [place] [address] Result Comment: Mens trual Cycle Progesterone Reference Ranges: Follicular: <1.0 ng/mL Ovulation: <12.1 ng/mL Luteal: 1.8 to 23.9 ng/mL. Progesterone Reference Ranges vary by gestational period: First Trimester: 11.0 to 44.3 ng/mL Second Trimester: 25.4 to 83.3 ng/mL Third Trimester: 58.7 to 214 ng/mL Post menopausal Progesterone: <0.5 ng/mL Reference: 1. Progesterone (Progesterone III) [package insert V 1.0 Macedonian]. [facility], [place], [place]. June 2015. Performed By: #### 2 839-9 #### [facility] CLIA [id number] [address] [place] [address] [place] Jerrell 03-30-2024 CNPN Telephone (REIBD) ALEIDA ARIZMENDI ([id number]) 1985 F Date Time Provider Department 03/30/24 MICHEL JOSEPH During your visit today, we recorded the following information about you: Ana Sotomayor 03/30/2024 1:19 PM Signed Pt would like to know her next steps? Has taken provera still no cycle Repko, Ana 03/31/2024 11:27 AM Signed Pt returning call Nilton Zhang RN 03/31/2024 2:50 PM Signed Patient called and [...] Zhang RN March 31, 2024 2:50 PM Guerline townsendndra 04/01/2024 3:13 PM Signed Pt would like [...] Encounter Status:Closed by NILTON ZHANG on 03/31/24 [facility] 03-22-2024 [facility] Telephone (REIBD) ALEIDA ARIZMENDI ([id number]) 1985 F Date Time Provider Department 03/22/24 SELF REIBD During your visit today, we recorded the following information about you: Eusebia townsendra 03/22/2024 1:31 PM Signed Pt had sis done and states they found some scar tissue in the findings. Pt would like to know if she needs to stop her meds? Or go through surgery? Pt states she has tried for 3 weeks to get an answer with no response Goyo Vides RN 03/22/2024 2:30 PM Signed Message resent to Dr Joseph. Awaiting answer to give pt. Goyo Vides RN March 22, 2024 2:30 PM Goyo Vides RN 03/23/2024 8:59 AM Signed Called [...] to follow up with office after SIS. Goyo Vides RN March 23, 2024 8:59 AM Allergies As of Date: 03/22/2024 Noted Allergy Reaction AMOXACILLIN (AMOXICILLIN) 03/09/2023 4 - Hives Comments: Skin test is negative. Challenge pending PENICILLINS 10/15/2020 4 - Hives Date Reviewed: 03/08/2024 Reviewed by: Kari Cain MA - Fully Assessed Reason for Visit: Patient Question [1477] Order(s):ethynodiol diacetate-ethinyl estradiol 1 mg-35 mcg (ZOVIA [...] throw out placebo week. Encounter Status:Closed by GOYO VIDES on 03/23/24 [facility] CNOVon 03-08-2024 CNOV Office Visit ([facility] ) ALEIDA ARIZMENDI ([id number]) 1985 F Date Time Provider Department 03/08/24 2:00 PM PEPE POPE [facility] During your visit today, we recorded the [...] 08/16/2023 (approximate). Informed Consent Consent Obtained: Written [place] Protocol SIGN IN Patient/Surrogate Stated/Verified: Patient name, Date of , Relevant allergies and Intended procedure TIME OUT Intended patient and procedure match the source document(s). Consent documented and matches the intended procedure. Relevant labs, photos, and/or imaging studies have been reviewed. Pre-Procedure Details: Pre-meds: None Local anesthetic: None Procedure Details: Procedure: Colposcopy of Vagina including Cervix [employer] speculum was placed in the vagina. Acetic [...] Pepe Pope MD Referring Provider: PEPE POPE [[id number]] Allergies As of Date: 03/08/2024 Noted Allergy Reaction AMOXACILLIN (AMOXICILLIN) 03/09/2023 4 - Hives Comments: Skin test is negative. Challenge pending PENICILLINS 10/15/2020 4 - Hives Date Reviewed: 03/08/2024 Reviewed by: Kari Cain MA - Fully Assessed Reason for Visit: Colposcopy [1551] Primary Visit Diagnosis:Cervical high risk HPV (human papillomavirus) test positive [R87.810] Order(s):UA DIP,URINE HCG (POC) [[id number]] Order #: [id number]. #:[id number] COLPOSCOPY [PRO96] Order #: [id number] Prescriptions as of 03/08/2024 - PNV no.95/ferrous [...] for Encounter Date Provider Department Center 03/08/2024 [id number]-EYAZTWGCEC, PHILIP*[facility] Encounter Status:Closed by PEPE POPE on 03/08/24 [facility] [place] COLPOSCOPYon 03-08-2024 [facility] UA DIP,URINE HCG (POC)on Beta HCG ( test) Ql (U) Negative Negative [facility] Comment on above: Location:[facility], [address] [place] [address], [place], [place], [address] Home Care Rn (POCT) Internal QC [place] [facility] Location:[facility], [address] [place] [address], [place], [place], [address] [facility] POINT OF CARE [facility] CNPNon 03-07-2024 CNPN Telephone (REIBD) ALEIDA ARIZMENDI ([id number]) 1985 F Date Time Provider Department 03/07/24 [...] ov cycle, please follow up with patient. Goyo Vides RN 03/09/2024 10:00 AM Signed Called [...] review plan per Dr Edmonds's consult note. Goyo Vides RN March 09, 2024 9:59 AM Allergies As of Date: 03/07/2024 Noted Allergy Reaction AMOXACILLIN (AMOXICILLIN) 03/09/2023 4 - Hives Comments: Skin test is negative. Challenge pending PENICILLINS 10/15/2020 4 - Hives Date Reviewed: 02/23/2024 Reviewed by: Danyell Leger RN - Fully Assessed Reason for Visit: discuss [...] w*10/30/2023 Missed [O02.1] 10/30/2023 Encounter Status:Closed by GOYO VIDES on 03/09/24 [facility] [id number] 02-24-2024 O ID: [id number] Author: MICHEL JOSEPH MD Service: ? Author Type: Physician Type: Filed: 02/24/2024 11:33 Note Text: ASSESSMENT AND PLAN Aleida Arizmendi is a 38 year old female [...] included some information about IVF below. Normal [facility] CNOVon 02-23-2024 CNOV Office Visit (REIMN) ALEIDA ARIZMENDI ([id number]) 1985 F Date Time Provider Department 02/23/24 3:00 PM MICHEL JOSEPH During your visit today, we recorded the following information about you: Blood pressure Weight Height 124/82 118.3 kg 1.626 m Michel Joseph MD 02/24/2024 11:33 AM Signed [facility] ENDOCRINOLOGY AND INFERTILITY RETURN PATIENT CLINIC NOTE SERVICE DATE: 02/23/2024 SERVICE TIME: 3:33 PM NAME: Aleida Arimzendi FERTILITY HISTORY 38yo [id number] with PCOS, BMI 44.77 Note copied from [...] again. LABS/IMAGIN02/20/23: AMH 12.50 ASSESSMENT AND PLAN Aleida Arizmendi is a 38 year old female [...] PRIOR TO (more content not included)... Normal [facility] 02-12-2024 CNPN Telephone ([facility]) ALEIDA ARIZMENDI ([id number]) 1985 F Date Time Provider Department 02/12/24 [facility] POPE [facility] During your visit today, we recorded the following information about you: Kylee Cunha RN 02/12/2024 4:15 PM Signed ----- Message from Pepe Pope MD sent at 02/08/2024 4:34 PM EDT ----- Needs colposcopy Kylee Cunha RN 02/12/2024 4:16 PM Signed Called and spoke [...] AM Signed We can numb the area Kylee Cunha RN 02/15/2024 12:15 PM Signed please assist w appt for colposcopy. Roxanna aMy 02/15/2024 12:49 PM Signed Did call patient and LVM. Also sent patient a Spot [employer] message. Postponing to ensure scheduling. Roxanna May 02/16/2024 10:41 AM Signed 2nd attempt at calling patient and LVM. Also sent MyChart message. Allergies As of Date: 02/12/2024 Noted Allergy Reaction AMOXACILLIN (AMOXICILLIN) 03/09/2023 4 - Hives Comments: Skin test is negative. Challenge pending PENICILLINS 10/15/2020 4 - Hives Date Reviewed: 01/08/2024 Reviewed by: Nilton Zhang RN - Fully Assessed Reason for Visit: Colposcopy [...] w*10/30/2023 Missed [O02.1] 10/30/2023 Encounter Status:Closed by KYLEE CUNHA on 02/15/24 [facility] Jerrell 02-05-2024 [facility] Telephone (REIBD) ALEIDA ARIZMENDI ([id number]) 1985 F Date Time Provider Department 02/05/24 MICHEL JOSEPH During your visit today, we recorded the following information about you: Yancy Fajardo 02/05/2024 9:04 AM Signed Patient states she called Thursday and has gotten no response Ivy Gardner, LAUREN 02/05/2024 10:07 AM Signed Pt requesting a blood hcg level, since full flow has not started, and she has only had some brown spotting. SO cycle Trigger/TI 01/10/,01/11,01/12. Pt said HPT was negative, and was questioning implantation bleeding . Hcg order placed. Ivy Gardner RN February 05, 2024 10:04 AM Idalmis Arias RN 02/05/2024 3:32 PM Signed Called patient to report negative HCG level. Patient expressed frustration with needing another consult after just meeting with Dr. Menchaca. Responded with heart and listened to patient frustration. She is agreeable to wait. Idalmis Arias RN February 05, 2024 3:32 PM Allergies As of Date: 02/05/2024 Noted Allergy Reaction AMOXACILLIN (AMOXICILLIN) 03/09/2023 4 - Hives Comments: Skin test is negative. Challenge pending PENICILLINS 10/15/2020 4 - Hives Date Reviewed: 01/08/2024 Reviewed by: Nilton Zhang, LAUREN - Fully Assessed Reason for Visit: Period due this week// never had a full flow [Other] Patient Update [1234] Primary Visit Diagnosis:Encounter for fertility testing [Z31.41] Order(s):HCG QUANTITATIVE [SQHCGQT] Order #: [id number] FUTURE Prescriptions as of 02/05/2024 - medroxyPROGESTERone [...] Status:Closed by LEONEL CABEZAS on 02/05/24 [facility] H[facility].beta subunit IA 3rd IS Q non 02-05-2024 SERUM B HCG,3RD I.S. <5 Normal [facility] Comment on above: Result Comment: NEW [...] neoplasms. Performed By: #### 2 0415-6 #### [facility] ([id number]) [address] [place] [address], [place] [address] Jerrell 02-01-2024 NAVIN Telephone (REIBD) ALEIDA ARIZMENDI ([id number]) 1985 F Date Time Provider Department 02/01/24 MICHEL JOSEPH During your visit today, we recorded the following information about you: AngélicaluRukhsana Arredondo 02/01/2024 11:30 AM Signed Unsure about cycle and has pressure but not cramping requests call back, started yesterday morning. Khurram Zendejas, LAUREN 02/01/2024 11:55 AM Signed Called the patient [...] Date Reviewed: 01/08/2024 Reviewed by: Nilton Zhang, RN - Fully Assessed Reason for Visit: [...] Status:Closed by IVY GARDNER on 02/01/24 Normal [facility] C. trachomatis+N. gonorrhoea e DNA KINDRA+probe Ql (Unsp spec)on 01-21-2024 C. trachomatis rRNA KINDRA+probe Ql (Unsp spec) Negative Normal Negative for Chlamydia trachomatis by amplificaton [facility] Comment on above: Order Comment: Speci men Type: SWAB Ordering Facility: [facility] Address: [address] [place] [address] Performed By: #### 3 6902-5 #### [facility] CLIA [id number] [address] [place] [address] [place] N. gonorrhoeae rRNA KINDRA+probe Ql (Unsp spec) Negative Normal Negative for Neisseria gonorrhoeae by amplification [facility] Comment on above: Order Comment: Speci men Type: SWAB Ordering Facility: [facility] Address: [address] [place] [address] Performed By: #### 3 6902-5 #### [facility] CLIA [id number] [address] [place] [address] [place] CNOVon 01-21-2024 CNOV Office Visit ([facility] ) ALEIDA ARIZMENDI ([id number]) 1985 F Date Time Provider Department 01/21/24 8:20 AM PEPE POPE [facility] During your visit today, we recorded the following information about you: Pulse Blood pressure Weight Height 66/minute 138/91 117.1 kg 1.626 m Pepe Pope MD 01/21/2024 8:55 AM Signed Aleida is a 38 year old who presents [...] L0 SAB0 IAB1 Ectopic0 Multiple0 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 Normal [facility] HIGH RISK HUMAN PAPILLOMA CHARLIE (HPV), PCR FOR DETECTION AND GENOTYPINGon 01-21-2024 HPV 16 Ag Ql (Unsp spec) Negative Normal Negative for HPV DNA high risk type 16 by PCR [facility] Comment on above: Order Comment: Speci men Type: FLUID SPECIMENOrdering Facility: [facility] Address: [address] [place] [address] Performed By: #### L [id number] ####[facility]ATORY[facility]IA [id number] [address] LABCLIA [id number] [facility] [place] [address] [place]#### HPVHRT ####[facility] [id number] [address] [place] HPV 18 Ag Ql (Unsp spec) Negative Normal Negative for HPV DNA high risk type 18 by PCR [facility] Comment on above: Order Comment: Speci men Type: FLUID SPECIMENOrdering Facility: [facility] Address: [address] [place] [address] Performed By: #### L [id number] ####[facility]ORATORYCLIA [id number] [address] LABCLIA [id number] [place] [address] [place]#### HPVHRT ####[facility] [id number] [place] [address] [place] HPV 31+33+35+39+45+51+52+56 +58+59+66+68 DNA KINDRA+probe Ql (Cvx) Positive for one or more of the following HPV DNA high risk types:31,33,35,39,45, 51,52,56,58,59,66,68 by PCR Abnormal Negative for HPV DNA high risk types: 31,33,35,39,45 ,51,52,56,58,5 9,66,68 by PCR. [facility] Comment on above: Order Comment: Speci men Type: FLUID SPECIMENOrdering Facility: [facility] Address: [address] [place] [address] Performed By: #### L [id number] ####[facility] LABORATORYCLIA [id number] [place] [address] [place] [facility] LABCLIA [id number] [place] [address] [place]#### HPVHRT ####[facility] [id number] [place] [address] [place] PAP TESTon 01-21-2024 ADEQUACY Normal [facility] Comment on above: Order Comment: Speci men Type: FLUID SPECIMENOrdering Facility: [facility] Address: [address] [place] [address] Result Comment: Sati sfactory for interpretation. No endocervical component Performed By: #### L [id number] ####[facility]ORATORYCLIA [id number] [place] [address] [place] [facility] LABCLIA [id number] [place] [address] [place]#### HPVHRT ####[facility] LABCLIA [id number] [place] [id number] [place] CASE REPORT Normal [facility] Comment on above: Order Comment: Speci men Type: FLUID SPECIMENOrdering Facility: [facility] Address: [address] [place] [address] Result Comment: Gyne cologic Cytology Report Case: [id number] Authorizing Provider: Pepe Pope, Collected: 01/21/2024 08:44 AM Ordering Location: OB/Gynecology Received: 01/21/2024 04:22 PM First Screen: Clapacs, Tamia Rescreen: Manosky Priya Specimen: Pap Test, ThinPrep, Cervix Performed By: #### L [id number] ####[facility]ORY[facility]IA [id number] [address] LABCLIA [id number] [place] [address] [place]#### HPVHRT ####[facility]IA [id number] [place] [address] [place] CLINICAL HISTORY, CYTOLOGY, CASSANDRA DEVELOPER Routine Exam Normal [facility] Comment on above: Order Comment: Speci men Type: FLUID SPECIMENOrdering Facility: [facility] Address: [address] [place] [address] Performed By: #### L [id number] ####[facility]ORYCLIA [id number] [place] [id number] [facility] LABCLIA [id number] [place] [address] [place]#### HPVHRT ####[facility]CLIA [id number] [place] [id number] [place] FINAL PERFORMING LAB Normal [facility] Comment on above: Order Comment: Speci men Type: FLUID SPECIMENOrdering Facility: [facility] Address: [address] [place] [address] Result Comment: Tech nical component, tax clerk screening performed at [facility], [address] [place] [id number] CLIA# [id number] Diagnostic interpretation performed at [facility], [address] [place] [id number] CLIA# [id number] Framing Mechanic: Kevon Cano M.D. Performed By: #### L [id number] ####[facility]ORYCLIA [id number] [place] [address] [place] [facility] LABCLIA [id number] [place] [address] [place]#### HPVHRT ####[facility]CLIA [id number] [place] [address] [place] HPV REFLEX Yes HPV Normal [facility] Comment on above: Order Comment: Speci men Type: FLUID SPECIMENOrdering Facility: [facility] Address: [address] [place] [address] Performed By: #### L [id number] ####[facility]ORYCLIA [id number] [place] [id number] [place] [facility] LABCLIA [id number] [place] [address] [place]#### HPVHRT ####[facility]CLIA [id number] [place] [address] [place] INTERPRETATION, CYTOLOGY, CASSANDRA DEVELOPER Normal [facility] Comment on above: Order Comment: Speci men Type: FLUID SPECIMENOrdering Facility: [facility] Address: [address] [place] [address] Result Comment: Nega tive for intraepithelial lesion or malignancy. Performed By: #### L [id number] ####[facility]ORYCLIA [id number] [place] [id number] [place] [facility] LABCLIA [id number] [place] [address] [place]#### HPVHRT ####[facility] LABCLIA [id number] [place] [id number] [place] LMP 08/16/2023 Normal [facility] Comment on above: Order Comment: Speci men Type: FLUID SPECIMENOrdering Facility: [facility] Address: [address] [place] [address] Performed By: #### L [id number] ####[facility]ORATORYCLIA [id number] [address] LABCLIA [id number] [place] [address] [place]#### HPVHRT ####[facility]CLIA [id number] [place] [id number] [place] PAP DISCLAIMER COMMENT The Pap Smear is a screening test for cervical cancer. False negative results occur with all screening tests, emphasizing the need for rescreening at recommended intervals, and clinical correlation. Normal [facility] Comment on above: Order Comment: Speci men Type: FLUID SPECIMENOrdering Facility: [facility] Address: [address] [place] [address] Performed By: #### L [id number] ####[facility]ORATORYCLIA [id number] [place] [id number] [place] [facility] LABCLIA [id number] [place] [address] [place]#### HPVHRT ####[facility]CLIA [id number] [address] [address] [place] PAP COMMUNICATIONS SYSTEMS ENGINEER COMMENT This specimen has been analyzed by the ThinPrep Imaging System, an automated imaging and review system, which assists the laboratory in evaluating cells on ThinPrep Pap tests. Following automated imaging, selected pacheco from every slide are reviewed by a tax clerk. Normal [facility] Comment on above: Order Comment: Speci men Type: FLUID SPECIMENOrdering Facility: [facility] Address: [address] [place] [address] Performed By: #### L [id number] ####[facility]ORATORYCLIA [id number] [address] LABCLIA [id number] [address]#### HPVHRT ####[facility]IA [id number] [address] Follicle Diameter USon 01-10 Indication Follicle monitoring [...] Performed By: Nilton Bates RDMS Read By: Arley Parikh M.D. MATERNAL MEDICINE [facility] Radiology Study observation (narrative) Robe mars [facility] Jerrell 01-08-2024 [facility] Telephone (WHREBA) ALEIDA ARIZMENDI ([id number]) 1985 F Date Time Provider Department 01/08/24 RAD[facility] GILLIAM [facility] During your visit today, we recorded the following information about you: Allergies As of Date: 01/08/2024 Noted Allergy Reaction AMOXACILLIN (AMOXICILLIN) 03/09/2023 4 - Hives Comments: Skin test is negative. Challenge pending PENICILLINS 10/15/2020 4 - Hives Date Reviewed: 01/08/2024 Reviewed by: Nilton Zhang RN - Fully Assessed Reason for Visit: Financial [...] Status:Closed by JUANA LIU on 01/11/24 Normal [facility] Follicle Diameter USon 01-07 Indication [...] Performed By: Melodie Fitzgerald RDMS Read By: Jazmine Gonzalez MD MATERNAL MEDICINE [facility] Radiology Study observation (narrative) [facility] Follicle Diameter USon 12-31 [facility] [id number] 12-02-2023 HNO ID: [id number] Author: DMITRY MENCHACA MD Service: ? Author [...] and future treatment options Dmitry Menchaca MD [facility] ANES POSTPROC EVALon 024 ANES POSTPROC EVAL HNO ID: [id number] Author: JAGDEEP CORDOVA MD Service: Anesthesiology Author Type: Physician Type: Anesthesia Postprocedure Evaluation Filed: 10/30/2023 13:24 Note Text: POST ANESTHESIA EVALUATION NOTE : 1985 Procedure Summary Date: 10/30/23 Room / Location: [facility] 01 / [facility] Anesthesia Start: 1156 Anesthesia Stop: 1228 Procedure: DILATION AND CURETTAGE, SUCTION (Abdomen) Diagnosis: Missed (Missed [O02.1]) Surgeons: Dmitry Menchaca MD Responsible Provider: Jagdeep Cordova MD Anesthesia Type: general ASA Status: [...] of care. 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 [facility] CHART REVIEW: ACTIVE PROBLEM LIST High Blood [...] obtained within 48 hours of Surgery/Procedure. SIGNATURE: Jagdeep Cordova MD PATIENT NAME: Aleida Arizmendi DATE: October 30, 2023 TIME: 10:59 AM : 1985 Normal [facility] HISTORY PHYSICALon HISTORY PHYSICAL HNO ID: [id number] Author: SONYA OLSON APRN.CNP Service: Anesthesiology Author Type: Nurse Practitioner Type: H&P Filed: 10/30/2023 11:47 Note Text: HISTORY AND PHYSICAL EXAMINATION Aleida Arizmendi 1985 SERVICE DATE: 10/30/2023 SERVICE TIME: [...] been having pelvic cramping. Pt presents for DANMT with Dr Menchaca. METS: Climb a flight of stairs or walk up a hill (5.50 METs) FUNCTIONAL STATUS: Independent PAST MEDICAL HISTORY Diagnosis Date Abnormal Pap smear of cervix Complication of anesthesia vomiting after waking up Essential hypertension Hirsutism PCOS (polycystic ovarian syndrome) Sleep apnea 2020 PAST SURGICAL HISTORY Procedure Laterality Date COLPOSCOPY LITHOTRIPSY XTRCORP SHOCK WAVE 04/18 Lithotripsy NEPHROLITHOTOMY REMOVAL STAGE 1 2005 NEPHROLITHOTOMY [...] No r (more content not included)... Normal [facility] OPERATIVE NOon 10-30-2023 OPERATIVE NO HNO ID: [id number] Author: DMITRY MENCHACA MD Service: ? Author [...] Menchaca MD October 30, 2023 12:28 PM [facility] SURGICAL PATHOLOGYon 024 CASE REPORT Normal [facility] Comment on above: Order Comment: Speci men Type: TISSUE SPECIMENOrdering Facility: [facility] Address: [address] [place] [address] Result Comment: Surg [facility] Pathology Report Case: [id number] Authorizing Provider: Dmitry Menchaca MD Collected: 10/30/2023 12:12 PM Ordering Location: [facility] Received: 10/30/2023 03:03 PM Pathologist: Za Tillman DO Specimen: PRODUCTS OF CONCEPTION Performed By: #### S ####[facility] LABORATORYCLIA [id number] [place] [address] [place] CLINICAL HISTORY Normal [facility] Comment on above: Order Comment: Speci men Type: TISSUE SPECIMENOrdering Facility: [facility] Address: [address] [place] [address] Result Comment: Pre- op diagnosis: Missed [O02.1] Performed By: #### S ####[facility]ORATORYCLIA [id number] [address] FINAL DIAGNOSIS [facility] Comment on above: Order Comment: Speci men Type: TISSUE SPECIMENOrdering Facility: [facility] Address: [address] [place] [address] Result Comment: A. P roducts of conception, dilation and curettage: - Chorionic villi and decidualized endometrium consistent with products of conception. Performed By: #### S ####[facility] LABORATORYCLIA [id number] [address] FINAL PERFORMING LAB Normal [facility] Comment on above: Order Comment: Speci men Type: TISSUE SPECIMENOrdering Facility: [facility] Address: [address] [place] [address] Result Comment: Diag nostic interpretation performed at [facility], [address] [place] [address] CLIA# [id number] Framing Mechanic: Charly Main M.D. Performed By: #### S ####[facility] LABORATORYCLIA [id number] [address] GROSS DESCRIPTION [facility] Comment on above: Order Comment: Speci men Type: TISSUE SPECIMENOrdering Facility: [facility] Address: [address] [place] [address] Result Comment: A. P RODUCTS OF CONCEPTION Received in formalin in a suction apparatus labeled as products of conception are multiple pale pink-butt, spongy and membranous tissue fragments admixed with some clotted blood aggregating to 7 x 6.5 x 0.8 cm. Spongy tissue consistent with possible villous tissue is identified. Vesicles and tissue are not identified. Brine Tank Tender sections are submitted in 3 cassettes. Gross examination performed at [facility], [address] [id number] CLIA# [id number] [facility] November 02, 2023 12:56 PM Performed By: #### S ####[facility] LABORATORYCLIA [id number] [place] [id number] [place] Examination level ultrasound on 10-23-2023 [facility] CNPNon 10-15-2023 CNPN Telephone (WHREBA) ALEIDA ARIZMENDI ([id number]) 1985 F Date Time Provider Department 10/15/23 DMITRY MENCHACA [facility] During your visit today, we recorded the following information about you: Juana Liu 10/15/2023 11:16 AM Signed Patient is currently and she is not sure if she will still need her appt with Dr. Menchaca on 10/21 or not. Ivy Gardner, LAUREN 10/15/2023 11:32 AM Signed Pt will cancel appointment with Dr. Menchaca since she is and moving on to OB. Ivy Gardner RN October 15, 2023 11:32 AM Allergies As of Date: 10/15/2023 Noted Allergy Reaction AMOXACILLIN (AMOXICILLIN) 03/09/2023 4 - Hives Comments: Skin test is negative. Challenge pending PENICILLINS 10/15/2020 4 - Hives Date Reviewed: 08/28/2023 Reviewed by: Ivy Gardner, RN - Fully Assessed Reason for Visit: [...] Encounter Status:Closed by IVY GARDNER on 10/15/23 [facility] Potassium [Moles/volume] in Serum or PlasmaOrdered By: Charly Matute on 10-01-2023 Potassium [Moles/Vol] 3.8 mmol/L 3.5-5.1 [facility] Alanine aminotransferase [En zymatic activity/volume] in Serum or PlasmaOrdered By: Fidelina Lyle on 09-30-2023 ALT [Catalytic activity/Vol] 16 U/L 7-52 [facility] Albumin [Mass/volume] in Ser um or Plasma by Bromocresol green (BCG) dye binding methoOrdered By: Fidelina Lyle on 09-30-2023 Albumin BCG dye [Mass/Vol] 4.1 g/dL 3.5-5.7 [facility] Alkaline phosphatase [Enzyma tic activity/volume] in Serum or PlasmaOrdered By: Fidelina Lyle on 09-30-2023 ALP [Catalytic activity/Vol] 54 U/L 34-104 [facility] Aspartate aminotransferase [ Enzymatic activity/volume] in Serum or PlasmaOrdered By: Fidelina Lyle on 09-30-2023 AST [Catalytic activity/Vol] 20 U/L 13-39 [facility] Automated epithelial cells c ount in urine sediment (number/area)Ordered By: Fidelina Lyle on 09-30-2023 Epithelial cells Auto (Urine sed) [#/Area] 3-4 [HPF] 0-2 [facility] Automated erythrocytes count in urine sediment (number/area)Ordered By: Fidelina Lyle on 09-30-2023 RBC Auto (Urine sed) [#/Area] 3-4 [HPF] 0-4 [facility] Automated leukocytes count i n urine sediment (number/area)Ordered By: Fidelina Lyle on 09-30-2023 WBC Auto (Urine sed) [#/Area] 1-2 [HPF] 0-4 [facility] Basophils Auto (Bld) [#/Vol] Ordered By: Fidelina Lyle on 09-30-2023 Basophils (Bld) [#/Vol] 0.2 10*3/uL 0.0-0.2 [facility] Basophils/100 WBC Auto (Bld) Ordered By: Fidelina Lyle on 09-30-2023 Basophils/100 WBC (Bld) 1.2 % . F [facility] Bilirubin Auto test strip Ql (U)Ordered By: Fidelina Lyle on 09-30-2023 Bilirubin Ql (U) Negative Negative [facility] Bilirubin.total [Mass/volume ] in Serum or PlasmaOrdered By: Fidelina Lyle on 09-30-2023 Bilirubin [Mass/Vol] 0.4 mg/dL 0.3-1.0 [facility] Calcium [Mass/volume] in Ser um or PlasmaOrdered By: Fidelina Lyle on 09-30-2023 Calcium [Mass/Vol] 9.2 mg/dL 8.6-10.3 [facility] Carbon dioxide, total [Moles /volume] in Serum or PlasmaOrdered By: Fidelina Lyle on 09-30-2023 CO2 [Moles/Vol] 22.5 mmol/L 21.0-31.0 [facility] Chloride [Moles/volume] in S bear or PlasmaOrdered By: Fidelina Lyle on 09-30-2023 Chloride [Moles/Vol] 104 mmol/L 98-107 [facility] Choriogonadotropin.beta subu nit [Units/volume] in Serum or PlasmaOrdered By: Fidelina Lyle on 09-30-2023 HCG.beta subunit Qn 8687.00 m[IU]/mL [facility] Comment on above: Approximate Approxim ate hCG Gestational Age Range (mIU/ml) (weeks)0.2-1 5-50 1-2 50-500 2-3 100-5,000 3-4 500-10,000 4-5 1,000-50,000 5-6 10,000-100,000 6-8 15,000-200,000 8-12 10,000-100,000 Creatinine [Mass/volume] in Serum or PlasmaOrdered By: Fidelina Lyle on 09-30-2023 Creatinine [Mass/Vol] 0.74 mg/dL 0.60-1.20 [facility] Eosinophils Auto (Bld) [#/Vo l]Ordered By: Fidelina Lyle on 09-30-2023 Eosinophils (Bld) [#/Vol] 0.3 10*3/uL 0.0-0.45 [facility] Eosinophils/100 WBC Auto (Bl d)Ordered By: Fidelina Lyle on 09-30-2023 Eosinophils/100 WBC (Bld) 2.0 % . [facility] Erythrocyte distribution wid th Auto (RBC) [Ratio]Ordered By: Fidelina Lyle on 09-30-2023 Erythrocyte distribution width (RBC) [Ratio] 14.3 % 11.9-15.3 [facility] Globulin Calc (S) [Mass/Vol] Ordered By: Fidelina Lyle on 09-30-2023 Globulin (S) [Mass/Vol] 3.2 g/dL [facility] Glucose [Mass/volume] in Ser um or PlasmaOrdered By: Fidelina Lyle on 09-30-2023 Glucose [Mass/Vol] 89 mg/dL 70-100 [facility] Comment on above: ADA recommended refe rence rangeRandom Glucose Reference Range is dependent on time and content of last meal. Glucose of more than 200 mg/dL in a nonstressed, ambulatory subject supports the diagnosis of Diabetes Mellitus. HCG ( test) IA.rapi d Ql (U)Ordered By: Fidelina Lyle on 09-30-2023 HCG ( test) Ql (U) Positive [facility] Hematocrit Auto (Bld) [Volum e fraction]Ordered By: Fidelina Lyle on 09-30-2023 Hematocrit (Bld) [Volume fraction] 41.0 % 34.0-46.4 [facility] Hemoglobin [Mass/volume] in BloodOrdered By: Fidelina Lyle on 09-30-2023 Hemoglobin (Bld) [Mass/Vol] 14.2 g/dL 11.8-15.4 [facility] Ketones Auto test strip (U) [Mass/Vol]Ordered By: Fidelina Lyle on 09-30-2023 Ketones (U) [Mass/Vol] Negative Negative [facility] Leukocytes [#/volume] correc rufina for nucleated erythrocytes in Blood by Automated counOrdered By: Fidelina Lyle on 09-30-2023 WBC corrected for nucl RBC Auto (Bld) [#/Vol] 14.6 10*3/uL 3.8-11.6 [facility] [facility] Lymph[facility] Auto (Bld) [#/Vo l]Ordered By: Fidelina Lyle on 09-30-2023 Lymphocytes (Bld) [#/Vol] 4.0 10*3/uL 1.00-4.8 [facility] Lymphocytes/100 WBC Auto (Bl d)Ordered By: Fidelina Lyle on 09-30-2023 Lymphocytes/100 WBC (Bld) 27.4 % . [facility] MCH Auto (RBC) [Entitic mass ]Ordered By: Fidelina Lyle on 09-30-2023 MCH (RBC) [Entitic mass] 31.0 pg 24.7-34.3 [facility] MCHC Auto (RBC) [Mass/Vol]Or dered By: Fidelina Lyle on 09-30-2023 MCHC (RBC) [Mass/Vol] 34.6 g/dL 32.0-35.0 [facility] MCV Auto (RBC) [Entitic vol] Ordered By: Fidelina Lyle on 09-30-2023 MCV (RBC) [Entitic vol] 89.8 fL 80-100 [facility] Monocyte distribution width [Entitic volume] in Blood by AutomatedOrdered By: Fidelina Lyle on 09-30-2023 Monocyte distribution width Auto (Bld) [Entitic vol] 18.80 % 0.00-20.00 [facility] Monocytes Auto (Bld) [#/Vol] Ordered By: Fidelina Lyle on 09-30-2023 Monocytes (Bld) [#/Vol] 0.9 10*3/uL 0.0-0.8 [facility] Monocytes/100 WBC Auto (Bld) Ordered By: Fidelina Lyle on 09-30-2023 Monocytes/100 WBC (Bld) 6.3 % . [facility] Neutrophils Auto (Bld) [#/Vo l]Ordered By: Fidelina Lyle on 09-30-2023 Neutrophils (Bld) [#/Vol] 9.2 10*3/uL 1.8-7.7 [facility] Neutrophils/100 WBC Auto (Bl d)Ordered By: Fidelina Lyle on 09-30-2023 Neutrophils/100 WBC (Bld) 63.1 % . [facility] No Panel InformationOrdered By: Fidelina Lyle on 09-30-2023 Estimated GFR (CKD-EPI) > 60.0 mL/Min [facility] Creatinine Clearance (Chem 130.63 [facility] Nucleated erythrocytes [Pres ence] in Blood by Automated countOrdered By: Fidelina Lyle on 09-30-2023 Nucleated RBC Auto Ql (Bld) 0.0 /100{WBC} 0-0.5 [facility] Platelet mean volume Auto (B ld) [Entitic vol]Ordered By: Fidelina Lyle on 09-30-2023 Platelet mean volume (Bld) [Entitic vol] 6.7 fL 6.3-10.7 [facility] Platelets Auto (Bld) [#/Vol] Ordered By: Fidelina Lyle on 09-30-2023 Platelets (Bld) [#/Vol] 360 10*3/uL 150-450 [facility] Protein Auto test strip (U) [Mass/Vol]Ordered By: Fidelina Lyle on 09-30-2023 Protein (U) [Mass/Vol] 100 mg/dL Negative [facility] Protein [Mass/volume] in Ser um or PlasmaOrdered By: Fidelina Lyle on 09-30-2023 Protein [Mass/Vol] 7.3 g/dL 6.4-8.9 [facility] RBC Auto (Bld) [#/Vol]Ordere d By: Fidelina Lyle on 09-30-2023 RBC (Bld) [#/Vol] 4.56 10*6/uL 3.60-5.00 [facility] Serum or plasma albumin/glob ulin mass ratioOrdered By: Fidelina Lyle on 09-30-2023 Albumin/Globulin [Mass ratio] 1.3 {ratio} [facility] Serum or plasma anion gap de terminationOrdered By: Fidelina Lyle on 09-30-2023 Anion gap [Moles/Vol] TNP [facility] Comment on above: Test not performed Sodium [Moles/volume] in Ser um or PlasmaOrdered By: Fidelina Lyle on 09-30-2023 Sodium [Moles/Vol] 136 mmol/L 136-145 [facility] Urea nitrogen [Mass/volume] in Serum or PlasmaOrdered By: Fidelina Lyle on 09-30-2023 Urea nitrogen [Mass/Vol] 10 mg/dL 7- [facility] Urine appearanceOrdered By: Fidelina Lyle on 09-30-2023 Appearance (U) Slightly cloudy Clear [facility] Urine bacteria detection by automated methodOrdered By: Fidelina Lyle on 09-30-2023 Bacteria Auto Ql (U) 2+ None Seen [facility] Urine colorOrdered By: Viji Lyle on 09-30-2023 Color (U) Yellow Yellow [facility] Urine glucose measurement by automated test strip (mass/volume)Ordered By: Fidelina Lyle on 09-30-2023 Glucose Auto test strip (U) [Mass/Vol] Normal mg/dL Normal [facility] Urine hemoglobin detection b y automated test stripOrdered By: Fidelina Lyle on 09-30-2023 Hemoglobin Auto test strip Ql (U) 2+ Negative [facility] Urine leukocyte esterase det ection by automated test stripOrdered By: Fidelina Lyle on 09-30-2023 Leukocyte esterase Auto test strip Ql (U) Negative Negative [facility] Urine nitrite detection by a utomated test stripOrdered By: Fidelina Lyle on 09-30-2023 Nitrite Auto test strip Ql (U) Negative Negative [facility] Urobilinogen Auto test strip (U) [Mass/Vol]Ordered By: Fidelina Lyle on 09-30-2023 Urobilinogen (U) [Mass/Vol] Normal mg/dL Normal [facility] WBC Auto (Bld) [#/Vol]Ordere d By: Fidelina Lyle on 09-30-2023 WBC (Bld) [#/Vol] 14.6 10*3/uL 3.8-11.6 [facility] pH Auto test strip (U)Ordere d By: Fidelina Lyle on 09-30-2023 pH (U) 1.030 [pH] 1.001-1.030 [facility] pH (U) 6.0 [pH] 5.0-9.0 [facility] FOLLICULAR WHIon 08-25-20 [facility] FOLLICULAR WHIon 08-19-20 [facility] CNPNon 08-17-2023 CNPN Telephone (WHREBA) ALEIDA ARIZMENDI ([id number]) 1985 F Date Time Provider Department 08/17/23 RADHA GILLIAM [facility]REBA During your visit today, we recorded the following information about you: Juana Liu 08/17/2023 11:46 AM Signed Patient called stating she started her cycle yesterday so she is CD2 today. Wants to know when to schedule her baseline Mary Ann Kirkland RN 08/18/2023 11:37 AM Addendum Unable to reach patient by phone, left message to return my call. Need plan from [facility] and message sent to [facility] for SO with TIC. Plan to bring patient in on Thursday Mary Ann Kirkland August 17, 2023 4:34 PM Unable to reach patient by phone, but patient is scheduled for tomorrow. Same plan per Dr. Menchaca. She will need follow up with [facility] if not after this attempt. Request to schedulers. sent to patient. Mary Ann Kirkland RN [...] [N97.9] Order(s):ESTRADIOL-17 B BLD [SQE2] Order #: [id number] STANDING Prescriptions as of 08/18/2023 - dexAMETHasone [...] Encounter Status:Closed by LEONEL CABEZAS on 08/18/23 [facility] FOLLICULAR US WHIon 07-30-20 [facility] FOLLICULAR US WHIon 07-24-20 [facility] ESTRADIOL-17B BLDon 07-17-20 E2 [Mass/Vol] 41 pg/mL [facility] FOLLICULAR US WHIon 07-17-20 [facility] CNPNon 07-14-2023 CNPN Telephone (WHREBA) ALEIDA ARIZMENDI ([id number]) 1985 F Date Time Provider Department 07/14/23 [facility] During your visit today, we recorded the [...] no appts so she will come to [facility] to baseline on 07/17. Medications ordered based off of her last cycle but note sent to Dr. Menchaca to confirm plan. Pt verbalized understanding Martha Vilchis RN July 16, 2023 2:43 PM Martha Vilchis RN 07/16/2023 2:44 PM Signed Addended by: MARTHA VILCHIS on: 07/16/2023 02:44 PM Modules accepted: Orders Leonel Cabezas APRN.CNP 07/16/2023 2:52 PM Signed Addended by: LEONEL CABEZAS on: 07/16/2023 02:52 PM Modules accepted: Orders Leonel Cabezas APRN.[facility] 07/16/2023 3:11 PM Signed Addended by: LEONEL CABEZAS on: 07/16/2023 03:11 PM Modules accepted: Orders Allergies As of Date: 07/14/2023 Noted Allergy Reaction AMOXACILLIN (AMOXICILLIN) 03/09/2023 4 - Hives PENICILLINS 10/15/2020 4 - Hives Date Reviewed: 06/26/2023 Reviewed by: Nilton Zhang RN - Fully [...] Status:Closed by LILA HEART MA on 07/15/23 [facility] FOLLICULAR US WHIon 06-26-20 [facility] WHIon 05-28-20 [facility] WHIon 05-25-20 [facility]RE[facility] ALEIDA ARIZMENDI ([id number]) 1985 F Date Time Provider Department 05/11/23 [facility] During your visit today, we recorded the [...] appointment scheduled for 05/13 at 0715 at [place]. Emelia Rust RN Allergies As of Date: 05/11/2023 Noted Allergy Reaction AMOXACILLIN (AMOXICILLIN) 03/09/2023 4 - Hives PENICILLINS 10/15/2020 4 - Hives Date Reviewed: 03/09/2023 Reviewed by: Ar Hennessy RN - Fully Assessed Reason for Visit: Patient Question [1477] Primary Visit Diagnosis:Encounter for fertility testing [Z31.41] Order(s):[facility] [8133092] Order #: [id number]: 1 STANDING ESTRADIOL-17B BLD [SQE2] Order #: [id number] STANDING Prescriptions as of 05/12/2023 - metFORMIN [...] Encounter Status:Closed by LEONEL CABEZAS on 05/12/23 [facility] XR HYSTEROSALPINGOGRAMon [facility] CNPNon 02-23-2023 CNPN Telephone (WHREBA) ALEIDA ARIZMENDI ([id number]) 1985 F Date Time Provider Department 02/23/23 [facility] During your visit today, we recorded the following information about you: Juana Liu 02/23/2023 2:07 PM Signed [facility] in [facility] called in regard to clarification on a [...] Encounter Status:Closed by JUANA LIU on 03/02/23 [facility] Jerrell [facility]2023 [facility] ALEIDA ARIZMENDI ([id number]) 1985 F Date Time Provider Department 02/20/23 DMITRY MENCHACA [facility] During your visit today, we recorded the following information about you: Juana Liu 02/20/2023 10:44 AM Signed Patient called wanting to get the authorization process started for IVF. Jonelle Daley 02/20/2023 4:50 PM Signed IVF PACKAGE#1 NOT CLEARED PLAN HAS NO INFERTILITY BENEFIT CALLED PT [facility] ALSO SENT [employer] MESSAGE AND ESTIMATE LETTER. THANK YOU Jonelle Daley 02/23/2023 9:40 AM Signed Pt is upset [...] up with this patient. Thank you Jonelle Billkland 02/23/2023 11:02 AM Signed Bart Mckay Thank you,will do. I will advise once payment is collected. Jonelle Daley 02/23/2023 11:09 AM Signed S/O CLEARED PER [...] Encounter Status:Closed by JUANA LIU on 03/02/23 [facility] CONSULT PROGon 02-18-2023 CONSULT PROG HNO ID: [id number] Author: Dmitry Menchaca MD Service: ? Author Type: Physician Type: Consult Progress Note Filed: 03/02/2023 6:05 AM Note Text: VIRTUAL VISIT PROGRESS NOTE This is a virtual visit using Xoft video visit. It required patient-provider interaction for the medical decision making as documented below. Date of Consult: 02/18/2023 Consultation Requested By: Self-referred Aleida Arizmendi is a 37 year old female presenting with the following history: HISTORY OF PRESENT ILLNESS: Aleida Arizmendi is a 37 year old female [...] done OPK (Ovulation Predictor Kit) Abnormal Ovarian [place] Normal Saline Ultrasound Not done Semen Analysis [...] Family History (more content not included)... Normal [facility] FOLLICULAR US WHIon 12-20-19 23 [facility] FOLLICULAR US WHIon 11-10-19 23 [facility] FOLLICULAR US WHIon 11-07-19 23 [facility] ESTRADIOLon 09-17-2021 Estradiol 74.2 pg/mL Normal [facility] Comment on above: Result Comment: Adul t Female: Follicular phase 12.5 - 166.0 Ovulation phase 85.8 - 498.0 Luteal phase 43.8 - 211.0 Postmenopausal <6.0 - 54.7 1st trimester 215.0 - >4300.0 Yazmin ECLIA methodology Performed By: #### E STRADOROTEO #### [facility] [address] [address] [address] Rene Ferguson PROGESTERONEon 09-17-2021 Progesterone <0.1 Normal [facility] Comment on above: Result Comment: Foll icular phase 0.1 - 0.9 Luteal phase 1.8 - 23.9 Ovulation phase 0.1 - 12.0 First trimester 11.0 - 44.3 Second trimester 25.4 - 83.3 Third trimester 58.7 - 214.0 Postmenopausal 0.0 - 0.1 Performed By: #### P ROGES #### [facility] [address] [address] [address] Rene Ferguson PREG QUANT HCGon 09-13-2021 HCG QUANT <1 Normal [facility] Comment on above: Performed By: #### P REGQNT #### [facility] [address] [address] [address] Rene Ferguson HCG RANGE SEE BELOW Normal [facility] Comment on above: Result Comment: 5-50 0-1 WEEK 40-300 1-2 WEEKS 100-1,000 2-3 WEEKS 500-6,000 3-4 WEEKS 5,000-200,000 1-2 MONTHS 10,000-100,000 2-3 MONTHS 3,000-50,000 2ND TRIMESTER 1,000-50,000 3RD TRIMESTER Performed By: #### P REGQNT #### [facility] [address] [address] [address] Rene Ferguson CBC AUTO DIFFon 03-23-2021 BASO # 0.1 103/ul Normal 0.0-0.1 [facility] Comment on above: Performed By: #### C BC #### [facility] [address] [place], [place] [address] Marissa Nilton Basophils/100 WBC (Bld) 0.7 % Normal 0.2-2.0 [facility] Comment on above: Performed By: #### C BC #### [facility] [address] [id number] Marissa Nilton EO # 0.3 103/ul Normal 0.0-0.7 [facility] Comment on above: Performed By: #### C BC #### [facility] [address] [id number] Marissa Nitlon Eosinophils/100 WBC (Bld) 3.1 % Normal 0.9-7.0 [facility] Comment on above: Performed By: #### C BC #### [facility] [address] [place], [place] [phone] Marissa Nilton Erythrocyte distribution width (RBC) [Ratio] 13.2 % Normal 11.0-15.0 [facility] Comment on above: Performed By: #### C BC #### [facility] [address] [place], [place] [phone] Marissa Nilton Hematocrit (Bld) [Volume fraction] 42.3 % Normal 36.0-48.0 [facility] Comment on above: Performed By: #### C BC #### [facility] [address] [place], [place] [phone] Marissa Nilton Hemoglobin (Bld) [Mass/Vol] 14.0 g/dL Normal 12.0-16.0 [facility] Comment on above: Performed By: #### C BC #### [facility] [address] [id number] Marissa Nilton IG # 0.06 10e3/ul Critically high 0.00-0.03 [facility] Comment on above: Performed By: #### C BC #### [facility] [address] [id number] Marissa Nilton IG % 0.6 % Critically high 0.0-0.5 [facility] Comment on above: Performed By: #### C BC #### [facility] [address] [place], [place] [phone] Marissa Nilton LYMPH # 3.1 103/ul Normal 1.2-3.8 [facility] Comment on above: Performed By: #### C BC #### [facility] [address] [place], [place] [id number] Marissa Nilton Lymphocytes/100 WBC (Bld) 30.5 % Normal 20.5-60.0 [facility] Comment on above: Performed By: #### C BC #### [facility] [address] [place], [place] [phone] Marissa Nilton MANUAL DIFF REQ NO Normal [facility] Comment on above: Performed By: #### C BC #### [facility] [address] [place] [address] Marissa Nilton MCH (RBC) [Entitic mass] 29.7 pg Normal 26.7-34.0 [facility] Comment on above: Performed By: #### C BC #### [facility] [address] [place], [place] [id number] Marissaestefani Manriquezen MCHC (RBC) [Mass/Vol] 33.1 g/dL Normal 29.9-35.2 [facility] Comment on above: Performed By: #### C BC #### [facility] [address] [place], [place] [id number] Marissa Nilton MCV (RBC) [Entitic vol] 89.8 fL Normal 81.0-99.0 [facility] Comment on above: Performed By: #### C BC #### [facility] [address] [place], [place] [phone] Marissa Nilton MONO # 0.7 103/ul Normal 0.3-0.8 [facility] Comment on above: Performed By: #### C BC #### [facility] [address] [place], [place] [id number] Marissa Nilton Monocytes/100 WBC (Bld) 6.9 % Normal 1.7-12.0 [facility] Comment on above: Performed By: #### C BC #### [facility] [address] [place] [address] Marissa Toribio NEUT # 5.9 103/ul Normal 1.4-6.5 [facility] Comment on above: Performed By: #### C BC #### [facility] [address] [place], [place] [phone] Marissa Toribio Neutrophils/100 WBC (Bld) 58.2 % Normal 43.0-75.0 [facility] Comment on above: Performed By: #### C BC #### [facility] [address] [place], [place] [phone] Marissa Toribio Platelet mean volume (Bld) [Entitic vol] 8.6 fL Critically low 9.5-13.5 [facility] Comment on above: Performed By: #### C BC #### [facility] [address] [place] [address] Marissa Toribio PLT 243 103/ul Normal 150-450 [facility] Comment on above: Performed By: #### C BC #### [facility] [address] [place] [address] Marissa Toribio RBC 4.71 106/ul Normal 4.20-5.40 [facility] Comment on above: Performed By: #### C BC #### [facility] [address] [place] [address] Marissa Toribio WBC 10.2 103/ul Normal 4.0-11.0 [facility] Comment on above: Performed By: #### C BC #### [facility] [address] [place], [place] [phone] Marissa Manriquezen PROF 14(COMP METB)on 021 Albumin [Mass/Vol] 3.6 g/dL Normal 3.5-5.0 [facility] Comment on above: Performed By: #### P REGQNT #### [facility] [address] [place] [address] Dr. Rene Ferguson Albumin/Globulin [Mass ratio] 0.9 {ratio} Normal [facility] Comment on above: Performed By: #### P REGQNT #### [facility] [address] [place] [address] Dr. Rene Ferguson ALP [Catalytic activity/Vol] 77 U/L Normal 38-126 [facility] Comment on above: Performed By: #### P REGQNT #### [facility] [address] [place] [address] Dr. Rene Ferguson ALT [Catalytic activity/Vol] 50 U/L Normal 9-52 [facility] Comment on above: Performed By: #### P REGQNT #### [facility] [address] [address] [address] Rene Ferguson Anion gap [Moles/Vol] 13.0 mmol/L Normal Th e [facility] Comment on above: Performed By: #### P REGQNT #### [facility] [address] [place] [address] Dr. Rene Ferguson AST [Catalytic activity/Vol] 48 U/L Critically high 14-36 [facility] Comment on above: Performed By: #### P REGQNT #### [facility] [address] [place] [address] Dr. Rene Ferguson Bilirubin [Mass/Vol] 0.4 mg/dL Normal 0.2-1.3 [facility] Comment on above: Performed By: #### P REGQNT #### [facility] [address] [place] [address] Dr. Rene Ferguson Calcium [Mass/Vol] 8.9 mg/dL Normal 8.4-10.2 [facility] Comment on above: Performed By: #### P REGQNT #### [facility] [address] [place] [address] Dr. Rene Ferguson Chloride [Moles/Vol] 104 mmol/L Normal 98-107 [facility] Comment on above: Performed By: #### P REGQNT #### [facility] [address] [place] [address] Dr. Rene Ferguson CO2 [Moles/Vol] 24.9 mmol/L Normal 22.0-30.0 [facility] Comment on above: Performed By: #### P REGQNT #### [facility] [address] [place] [address] Dr. Rene Ferguson Creatinine [Mass/Vol] 0.85 mg/dL Normal 0.52-1.04 [facility] Comment on above: Performed By: #### P REGQNT #### [facility] [address] [place] [address] Dr. Rene Ferguson EGFR-AF EGYPTIAN >60 Normal >=60 [facility] Comment on above: Performed By: #### P REGQNT #### [facility] [address] [place] [address] Dr. Rene Ferguson EGFR-NON AF EGYPTIAN >60 Normal >=60 [facility] Comment on above: Performed By: #### P REGQNT #### [facility] [address] [place] [address] Dr. Rene Ferguson Globulin (S) [Mass/Vol] 4.0 g/dL Normal [facility] Comment on above: Performed By: #### P REGQNT #### [facility] [address] [place] [address] Dr. Rene Ferguson Glucose [Mass/Vol] 100 mg/dL Normal 74-106 [facility] Comment on above: Performed By: #### P REGQNT #### [facility] [address] [place] [address] Dr. Rene Ferguson Potassium [Moles/Vol] 3.9 mmol/L Normal 3.4-5.0 [facility] Comment on above: Performed By: #### P REGQNT #### [facility] [address] [place] [address] Dr. Rene Ferguson Protein [Mass/Vol] 7.6 g/dL Normal 6.1-8.2 [facility] Comment on above: Performed By: #### P REGQNT #### [facility] [address] [place] [address] Dr. Rene Ferguson Sodium [Moles/Vol] 138 mmol/L Normal 137-145 [facility] Comment on above: Performed By: #### P REGQNT #### [facility] [address] [place] [address] Dr. Rene Ferguson Urea nitrogen [Mass/Vol] 10.0 mg/dL Normal 7.0-17.0 [facility] Comment on above: Performed By: #### P REGQNT #### [facility] [address] [place], [place] [address] Dr. Rene Ferguson Urea nitrogen/Creatinine [Mass ratio] 11.8 mg/mg Normal [facility] Comment on above: Performed By: #### P REGQNT #### [facility] [address] [place], [place] [address] ABD/PELVIS WO CONon [...] SAMEER OCONNELL Date: 2021-03-22 21:45 Normal [facility] CULTURE URINEon 03-22-2021 CULTURE URINE Culture Observations : HEAVY GROWTH OF MIXED GENITAL MONIKA. NO POTENTIAL PATHOGENS SEEN. Normal [facility] Comment on above: Performed By: #### U RCX #### [facility] [address] [place] [address] Marissa DAILEY URINE PROFILEon 1 Bilirubin Ql (U) Negative Normal NEGATIVE [facility] Comment on above: Performed By: #### P REGQNT #### [facility] [address] [place] [address] Dr. Rene Ferguson Clarity (U) SL CLOUDY Abnormal CLEAR [facility] Comment on above: Performed By: #### P REGQNT #### [facility] [address] [place] [address] Dr. Rene Ferguson Color (U) LT. YELLOW Normal YELLOW [facility] Comment on above: Performed By: #### P REGQNT #### [facility] [address] [place] [address] Dr. Rene WILLINGHAM A micrscopic examination will be performed if indicated. Normal [facility] Comment on above: Performed By: #### P REGQNT #### [facility] [address] [place] [address] Dr. Rene Ferguson Glucose Ql (U) Negative Normal NEGATIVE [facility] Comment on above: Performed By: #### P REGQNT #### [facility] [address] [place] [address] Dr. Rene Ferguson Hemoglobin Ql (U) LARGE Abnormal NEGATIVE [facility] Comment on above: Performed By: #### P REGQNT #### [facility] [address] [place] [address] Dr. Rene Ferguson Ketones Ql (U) TRACE Abnormal NEGATIVE [facility] Comment on above: Performed By: #### P REGQNT #### [facility] [address] [address] [address] Rene Ferguson LEUKOCYTES Negative Normal NEGATIVE [facility] Comment on above: Performed By: #### P REGQNT #### [facility] [address] [place] [address] Dr. Rene Ferguson Nitrite Ql (U) Negative Normal NEGATIVE [facility] Comment on above: Performed By: #### P REGQNT #### [facility] [address] [place] [address] Dr. Rene Ferguson pH (U) 6.0 [pH] Normal 5-9 [facility] Comment on above: Performed By: #### P REGQNT #### [facility] [address] [place] [address] Dr. Rene Ferguson Protein (U) [Mass/Vol] 100 mg/dL Abnormal NEGAT YARA/ TRACE [facility] Comment on above: Performed By: #### P REGQNT #### [facility] [address] [place] [address] Dr. Rene Ferguson SPEC GRAVITY >=1.030 Abnormal 1.005-<=1.025 [facility] Comment on above: Performed By: #### P REGQNT #### [facility] [address] [place] [address] Dr. Rene Ferguson UR MICRO IND INDICATED Normal [facility] Comment on above: Performed By: #### P REGQNT #### [facility] [address] [place] [address] Dr. Rene Ferguson Urobilinogen Qn (U) 0.2 {Inocencio'U}/dL Normal 0.2 - 1. 0 [facility] Comment on above: Performed By: #### P REGQNT #### [facility] [address] [place] [address] Dr. Rene Ferguson URon 03-22-2021 , QUAL Negative Normal NEGATIVE [facility] Comment on above: Performed By: #### P REGU #### [facility] [address] [place] [address] Marissa Toribio URINE MICROSCOPIC ONLYon BACTERIA SMALL Abnormal NONE SEEN [facility] Comment on above: Performed By: #### P REGQNT #### [facility] [address] [place] [address] Dr. Rene Ferguson Bacteria identified Cx Nom (U) INDICATED Normal [facility] Comment on above: Performed By: #### P REGQNT #### [facility] [address] [place] [address] Dr. Rene Ferguson CA OX CRYSTALS FEW Normal [facility] Comment on above: Performed By: #### P REGQNT #### [facility] [address] [place] [address] Dr. Rene Ferguson CAST NONE SEEN Normal NONE SEEN [facility] Comment on above: Performed By: #### P REGQNT #### [facility] [address] [place] [address] Dr. Rene Ferguson Crystals LM Nom (Urine sed) SEEN Abnormal NONE SEEN [facility] Comment on above: Performed By: #### P REGQNT #### [facility] [address] [place] [address] Dr. Rene Ferguson Epithelial cells LM Ql (Urine sed) MODERATE Abnormal NONE SEEN /RARE [facility] Comment on above: Performed By: #### P REGQNT #### [facility] [address] [place] [address] Dr. Rene Ferguson MUCOUS NONE SEEN Normal NONE SEEN [facility] Comment on above: Performed By: #### P REGQNT #### [facility] [address] [place] [address] Dr. Rene Ferguson RBC 20-50 Abnormal 0-2 [facility] Comment on above: Performed By: #### P REGQNT #### [facility] [address] [place] [address] Dr. Rene Ferguson WBC 5-10 Abnormal NONE SEEN [facility] Comment on above: Performed By: #### P REGQNT #### [facility] [address] [place] [address] Dr. Rene Ferguson PROGESTERONEon 03-08-2021 Progesterone <0.1 Normal [facility] Comment on above: Result Comment: Foll icular phase 0.1 - 0.9 Luteal phase 1.8 - 23.9 Ovulation phase 0.1 - 12.0 First trimester 11.0 - 44.3 Second trimester 25.4 - 83.3 Third trimester 58.7 - 214.0 Postmenopausal 0.0 - 0.1 Performed By: #### P VENKAT #### [facility] [address] [place] [address] Marissa Manriquezen ESTRADIOLon 01-17-2021 Estradiol 50.1 pg/mL Normal [facility] Comment on above: Result Comment: Adul t Female: Follicular phase 12.5 - 166.0 Ovulation phase 85.8 - 498.0 Luteal phase 43.8 - 211.0 Postmenopausal <6.0 - 54.7 1st trimester 215.0 - >4300.0 Yazmin ECLIA methodology Performed By: #### E LUIS ALBERTO #### [facility] [address] [place] [address] Marissa Toribio PROGESTERONEon 01-17-2021 Progesterone <0.1 Normal [facility] Comment on above: Result Comment: Foll icular phase 0.1 - 0.9 Luteal phase 1.8 - 23.9 Ovulation phase 0.1 - 12.0 First trimester 11.0 - 44.3 Second trimester 25.4 - 83.3 Third trimester 58.7 - 214.0 Postmenopausal 0.0 - 0.1 Performed By: #### P VENKAT #### [facility] [address] [place] [address] Marissa Toribio PREG QUANT HCGon 01-15-2021 HCG QUANT 1 mIU/mL Normal [facility] Comment on above: Performed By: #### P REGQNT #### [facility] [address] [place] [address] Dr. Rene Ferguson HCG RANGE SEE BELOW Normal [facility] Comment on above: Result Comment: 5-50 0-1 WEEK 40-300 1-2 WEEKS 100-1,000 2-3 WEEKS 500-6,000 3-4 WEEKS 5,000-200,000 1-2 MONTHS 10,000-100,000 2-3 MONTHS 3,000-50,000 2ND TRIMESTER 1,000-50,000 3RD TRIMESTER Performed By: #### P REGQNT #### [facility] [address] [place] [address] Dr. Rene Ferguson Pap IG, rfx Aptima HPV, rfx 16/18,45on 10-10-2020 . . Normal [facility] Comment on above: Result Comment: Perf ormed at: WB Performed By: #### P APHR2A #### [facility] [address] [place] [address] Marissaestefani Toribio DIAGNOSIS: Comment Normal [facility] Comment on above: Result Comment: NEGA TIVE FOR INTRAEPITHELIAL LESION OR MALIGNANCY. Performed at: WB Performed By: #### P APHR2A #### [facility] [address] [place] [address] Marissaestefani Toribio HPV Aptima Positive Abnormal Negative [facility] Comment on above: Result Comment: This nucleic acid amplification test detects fourteen high-risk HPV types (16,18,31,33,35,39,45,51,52,56,58,59,66,68) without differentiation. Performed at: =G Performed By: #### P APHR2A #### [facility] [address] [place] [address] Marissa Nilton HPV Genotype 16 Negative Normal Negative [facility] Comment on above: Result Comment: Perf ormed at: =G Performed By: #### P APHR2A #### [facility] [address] [place] [address] Marissaestefani Manriquezen HPV Genotype 18,45 Positive Abnormal Negative [facility] Comment on above: Result Comment: Perf ormed at: =G Performed By: #### P APHR2A #### [facility] [address] [place] [address] Marissaestefani oTribio Methodology: Comment Normal [facility] Comment on above: Result Comment: This liquid based ThinPrep(R) pap test was screened with the use of an image guided system. Performed at: WB Performed By: #### P APHR2A #### [facility] [address] [place] [address] Marissa Toribio Note: Comment Normal [facility] Comment on above: Result Comment: The Pap smear is a screening test designed to aid in the detection of premalignant and malignant conditions of the uterine cervix. It is not a diagnostic procedure and should not be used as the sole means of detecting cervical cancer. Both false-positive and false-negative reports do occur. . Performed at: WB Performed By: #### P APHR2A #### [facility] [address] [address] Marissa Nilton Performed by: Comment Normal [facility] Comment on above: Result Comment: Miguelina Carroll, [employer] ([employer]) Performed at: WB Performed By: #### P APHR2A #### [facility] [address] [address] Marissa Toribio Specimen adequacy: Comment Normal [facility] Comment on above: Result Comment: Sati sfactory for evaluation. Endocervical and/or squamous metaplastic cells (endocervical component) are present. Performed at: WB Performed By: #### P APHR2A #### [facility] [address] [address] Marissa Nilton No Panel Information [facility] Vital Signs Date Time Vital Sign Value Performing Clinician Lvi jah 11-25-2024 16:57-0400 Body height 162.56 cm [facility] 11-25-2024 16:57-0400 Body mass index (BMI) [Ratio] 44.6 kg/m2 [facility] 11-25-2024 16:57-0400 Body temperature 97.7 [degF] [facility] 11-25-2024 16:57-0400 Body weight 117.93 kg [facility] 11-25-2024 16:57-0400 Diastolic blood pressure 93 mm[Hg] [facility] 11-25-2024 16:57-0400 Heart rate 75 /min [facility] 11-25-2024 16:57-0400 Respiratory rate 18 /min [facility] 11-25-2024 16:57-0400 SaO2% (BldA) [Mass fraction] 94 % [facility] 11-25-2024 16:57-0400 Systolic blood pressure 152 mm[Hg] [facility] 11-22-2024 08:20-0400 Body height 162.6 cm Millie Ellis MD Work Phone: [facility] 11-22-2024 08:20-0400 Body mass index (BMI) [Ratio] 45.14 kg/m2 Millie Ellis MD Work Phone: [facility] 11-22-2024 08:20-0400 Body weight 119.3 kg Millie Ellis MD Work Phone: [facility] 11-08-2024 07:53-0500 Body mass index (BMI) [Ratio] 45.32 kg/m2 David Mckeon MD Work Phone: [facility] 11-08-2024 07:53-0500 Body weight 119.75 kg David Mckeon MD Work Phone: [facility] 11-08-2024 07:53-0500 Diastolic blood pressure 86 mm[Hg] David Mckeon MD Work Phone: [facility] 11-08-2024 07:53-0500 Heart rate 75 /min David Mckeon MD Work Phone: [facility] 11-08-2024 07:53-0500 Respiratory rate 18 /min David Mckeon MD Work Phone: [facility] 11-08-2024 07:53-0500 SaO2% (BldA) [Mass fraction] 95 % David Mckeon MD Work Phone: [facility] 11-08-2024 07:53-0500 Systolic blood pressure 142 mm[Hg] David Mckeon MD Work Phone: [facility] 10-07-2024 10:42-0500 Body height 162.6 cm David Mckeon MD Work Phone: [facility] 10-07-2024 10:42-0500 Body mass index (BMI) [Ratio] 45.06 kg/m2 David Mckeon MD Work Phone: [facility] 10-07-2024 10:42-0500 Body temperature 97.9 [degF] David Mckeon MD Work Phone: [facility] 10-07-2024 10:42-0500 Body weight 119.07 kg David Mckeon MD Work Phone: [facility] 10-07-2024 10:42-0500 Diastolic blood pressure 98 mm[Hg] David Mckeon MD Work Phone: [facility] 10-07-2024 10:42-0500 Heart rate 79 /min David Mckeon MD Work Phone: [facility] 10-07-2024 10:42-0500 Respiratory rate 20 /min David Mckeon MD Work Phone: [facility] 10-07-2024 10:42-0500 SaO2% (BldA) [Mass fraction] 97 % David Mckeon MD Work Phone: [facility] 10-07-2024 10:42-0500 Systolic blood pressure 156 mm[Hg] David Mckeon MD Work Phone: [facility] 07-06-2024 09:40-0400 Body height 162.6 cm David Mckeon MD Work Phone: [facility] 07-06-2024 09:40-0400 Body mass index (BMI) [Ratio] 44.46 kg/m2 David Mckeon MD Work Phone: [facility] 07-06-2024 09:40-0400 Body temperature 97.7 [degF] David Mckeon MD Work Phone: [facility] 07-06-2024 09:40-0400 Body weight 117.48 kg David Mckeon MD Work Phone: [facility] 07-06-2024 09:40-0400 Diastolic blood pressure 90 mm[Hg] David Mckeon MD Work Phone: [facility] 07-06-2024 09:40-0400 Heart rate 88 /min David Mckeon MD Work Phone: [facility] 07-06-2024 09:40-0400 Respiratory rate 16 /min Dvaid Mckeon MD Work Phone: [facility] 07-06-2024 09:40-0400 Systolic blood pressure 144 mm[Hg] David Mckeon MD Work Phone: [facility] 05-13-2024 12:16-0400 Diastolic blood pressure 72 mm[Hg] Michel Joseph MD Work Phone: [facility] 05-13-2024 12:16-0400 Heart rate 80 /min Michel Joseph MD Work Phone: [facility] 05-13-2024 12:16-0400 Respiratory rate 18 /min Michel Joseph MD Work Phone: [facility] 05-13-2024 12:16-0400 SaO2% (BldA) [Mass fraction] 93 % Michel Joseph MD Work Phone: [facility] 05-13-2024 12:16-0400 Systolic blood pressure 145 mm[Hg] Michel Joseph MD Work Phone: [facility] 05-13-2024 11:38-0400 Body height 162.6 cm Michel Joseph MD Work Phone: [facility] 05-13-2024 11:38-0400 Body mass index (BMI) [Ratio] 42.91 kg/m2 Michel Joseph MD Work Phone: [facility] 05-13-2024 11:38-0400 Body temperature 97.9 [degF] Michel Joseph MD Work Phone: [facility] 05-13-2024 11:38-0400 Body weight 113.4 kg Michel Joseph MD Work Phone: [facility] 04-29-2024 11:01-0400 Body height 162.6 cm Sushila Mindzora [employer] Work Phone: [facility] 04-29-2024 11:01-0400 Body mass index (BMI) [Ratio] 44.63 kg/m2 Sushila Mindzora [employer] Work Phone: [facility] 04-29-2024 11:01-0400 Body weight 117.94 kg Sushila Mindzora [employer] Work Phone: [facility] 04-29-2024 11:01-0400 Diastolic blood pressure 99 mm[Hg] Sushila Mindzora [employer] Work Phone: [facility] 04-29-2024 11:01-0400 Heart rate 64 /min Sushila Mindzora [employer] Work Phone: [facility] 04-29-2024 11:01-0400 Systolic blood pressure 144 mm[Hg] Sushila Mindzora [employer] Work Phone: [facility] 03-08-2024 13:51-0400 Body height 162.6 cm Pepe Pope MD Work Phone: [facility] 03-08-2024 13:51-0400 Body mass index (BMI) [Ratio] 45.11 kg/m2 Pepe Pope MD Work Phone: [facility] 03-08-2024 13:51-0400 Body weight 119.2 kg Pepe Pope MD Work Phone: [facility] 03-08-2024 13:51-0400 Diastolic blood pressure 90 mm[Hg] Pepe Pope MD Work Phone: [facility] 03-08-2024 13:51-0400 Heart rate 63 /min Pepe Pope MD Work Phone: [facility] 03-08-2024 13:51-0400 Systolic blood pressure 157 mm[Hg] Pepe Pope MD Work Phone: [facility] 03-02-2024 10:01-0400 Body height 162.6 cm Violeta Esquivel [employer] Work Phone: [facility] 03-02-2024 10:01-0400 Body mass index (BMI) [Ratio] 44.63 kg/m2 Violetajose daniel Parkergel [employer] Work Phone: [facility] 03-02-2024 10:01-0400 Body weight 117.94 kg Violetajose daniel Esquivel [employer] Work Phone: [facility] 03-02-2024 10:01-0400 Diastolic blood pressure 89 mm[Hg] Violeta Esquivel [employer] Work Phone: [facility] 03-02-2024 10:01-0400 Heart rate 94 /min Violetajose daniel Esquivel [employer] Work Phone: [facility] 03-02-2024 10:01-0400 SaO2% (BldA) [Mass fraction] 92 % Violetajose daniel Esquivel [employer] Work Phone: [facility] 03-02-2024 10:01-0400 Systolic blood pressure 158 mm[Hg] Violeta Esquivel [employer] Work Phone: [facility] 02-23-2024 15:24-0400 Body height 162.6 cm Michel Joseph MD Work Phone: [facility] 02-23-2024 15:24-0400 Body mass index (BMI) [Ratio] 44.77 kg/m2 Michel Joseph MD Work Phone: [facility] 02-23-2024 15:24-0400 Body weight 118.3 kg Michel Joseph MD Work Phone: [facility] 02-23-2024 15:24-0400 Diastolic blood pressure 82 mm[Hg] Michel Joseph MD Work Phone: [facility] 02-23-2024 15:24-0400 Systolic blood pressure 124 mm[Hg] Michel Joseph MD Work Phone: [facility] 01-21-2024 08:07-0400 Body height 162.6 cm Pepe Pope MD Work Phone: [facility] 01-21-2024 08:07-0400 Body mass index (BMI) [Ratio] 44.31 kg/m2 Pepe Pope MD Work Phone: [facility] 01-21-2024 08:07-0400 Body weight 117.1 kg Pepe Pope MD Work Phone: [facility] 01-21-2024 08:07-0400 Diastolic blood pressure 91 mm[Hg] Pepe oPpe MD Work Phone: [facility] 01-21-2024 08:07-0400 Heart rate 66 /min Pepe Pope MD Work Phone: [facility] 01-21-2024 08:07-0400 Systolic blood pressure 138 mm[Hg] Pepe Pope MD Work Phone: [facility] 11-04-2023 08:27-0500 Body height 162.6 cm David Mckeon MD Work Phone: [facility] 11-04-2023 08:27-0500 Body mass index (BMI) [Ratio] 44.03 kg/m2 David Mckeon MD Work Phone: [facility] 11-04-2023 08:27-0500 Body temperature 96.6 [degF] David Mckeon MD Work Phone: [facility] 11-04-2023 08:27-0500 Body weight 116.35 kg David Mckeon MD Work Phone: [facility] 11-04-2023 08:27-0500 Diastolic blood pressure 82 mm[Hg] David Mckeon MD Work Phone: [facility] 11-04-2023 08:27-0500 Heart rate 76 /min David Mckeon MD Work Phone: [facility] 11-04-2023 08:27-0500 Respiratory rate 16 /min David Mckeon MD Work Phone: [facility] 11-04-2023 08:27-0500 Systolic blood pressure 136 mm[Hg] David Mckeon MD Work Phone: [facility] 09-30-2023 20:00-0500 Body height 162.56 cm MD David Mckeon Work Phone: [facility] 09-30-2023 20:00-0500 Body temperature 98.1 [degF] MD David Mckeon Work Phone: [facility] 09-30-2023 20:00-0500 Body weight 116.7 kg MD David Mckeon Work Phone: [facility] 09-30-2023 20:00-0500 Diastolic blood pressure 93 mm[Hg] MD David Mckeon Work Phone: [facility] 09-30-2023 20:00-0500 Heart rate 77 /min MD David Mckeon Work Phone: [facility] 09-30-2023 20:00-0500 Respiratory rate 16 /min MD David Mckeon Work Phone: [facility] 09-30-2023 20:00-0500 SaO2% (BldA) [Mass fraction] 99 % MD David Mckeon Work Phone: [facility] 09-30-2023 20:00-0500 Systolic blood pressure 158 mm[Hg] MD David Mckeon Work Phone: [facility] 08-11-2023 12:52-0500 Body height 162.6 cm Otilia Camp MD Work Phone: [facility] 08-11-2023 12:52-0500 Body weight 116.45 kg Otilia Camp MD Work Phone: [facility] 08-11-2023 12:52-0500 Diastolic blood pressure 92 mm[Hg] Otilia Camp MD Work Phone: [facility] 08-11-2023 12:52-0500 Heart rate 81 /min Otilia Camp MD Work Phone: [facility] 08-11-2023 12:52-0500 SaO2% (BldA) [Mass fraction] 98 % Otilia Camp MD Work Phone: [facility] 08-11-2023 12:52-0500 Systolic blood pressure 127 mm[Hg] Otilia Camp MD Work Phone: [facility] Encounters Encounter Date Encounter Type Care Provider Facility Start: 01-24-2025 End: 01-24-2025 Clinisync Result Encounter Conor Sophia DO Work Phone: [facility] Unsolicited Start: 01-24-2025 End: 01-24-2025 Clinisync Result Encounter Conor Sophia DO Work Phone: [facility] Unsolicited Start: 01-24-2025 End: 01-24-2025 ambulatory Conor Sophia Facility:[facility] Start: 01-24-2025 End: 01-24-2025 Departed Referred Conor Sophia DO Work Phone: [facility] Start: 01-23-2025 End: 01-23-2025 Clinisync Result Encounter Leonel Sales CNM Work Phone: [facility] External [facility] Unsolicited Start: 01-23-2025 End: 01-23-2025 Clinisync Result Encounter Leonel Sales CNM Work Phone: [facility] Unsolicited Start: 01-18-2025 End: 01-19-2025 ambulatory Kobi Weiner PA-C Work Phone: [facility] Comment on above: Following up Start: 01-18-2025 End: 01-19-2025 E-mail encounter from caregiver Kobi Husam LINO Work Phone: [facility] Start: 01-17-2025 End: 01-17-2025 Clinisync Result Encounter Leonel Lawrenceo CNM Work Phone: [facility] Unsolicited Start: 01-17-2025 End: 01-17-2025 Clinisync Result Encounter Leonel Lawrenceo CNM Work Phone: [facility] Unsolicited Start: 01-16-2025 End: 01-16-2025 Telephone encounter Leonel Lawrenceo CNM Work Phone: [facility] Start: 01-10-2025 End: 01-10-2025 ambulatory LEONELOndina LAWRENCEO Not Available Start: 01-10-2025 End: 01-10-2025 Bamboo flowsheet Leonel Colton Lawrenceo CNM Work Phone: [facility] Start: 01-10-2025 End: 01-10-2025 Bamboo flowsheet Leonel Colton Lawrenceo CNM Work Phone: [facility] Start: 01-09-2025 End: 01-09-2025 Nursing evaluation of patient and report [facility] Work Phone: [facility] Comment on above: Encounter for pregna ncy test, result positive (HCC) Start: 01-09-2025 End: 01-09-2025 ambulatory [facility] Facility:[facility] Start: 12-30-2024 End: 12-30-2024 Nursing evaluation of patient and report [facility] Work Phone: [facility] Comment on above: Encounter for pregna ncy test, result positive (HCC) Start: 12-30-2024 End: 12-30-2024 ambulatory KOBI WEINER Facility:[facility] Start: 12-16-2024 End: 12-16-2024 ambulatory Kobi Weiner PA-C Work Phone: [facility] Comment on above: Encounter for pregna ncy test, result positive (HCC) (Primary Dx) Start: 12-16-2024 End: 12-16-2024 Telemedicine consultation with patient Kobi Husam LINO Work Phone: [facility] Start: 12-15-2024 End: 12-16-2024 Follow-up encounter Kobi Husam LINO Work Phone: [facility] Start: 12-14-2024 End: 12-14-2024 ambulatory MICHEL JOSEPH Facility:[facility] Start: 12-12-2024 End: 12-12-2024 ambulatory KOBIPollo WEINER [facility] 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-[employer] Work Phone: [facility] Comment on above: Inclusion cyst (Prim fabiola Dx) Start: 12-06-2024 End: 12-06-2024 ambulatory [facility] Start: 11-25-2024 End: 11-25-2024 ambulatory [facility] Work Phone: Start: 11-25-2024 End: 11-25-2024 Telephone encounter Self [facility] Comment on above: progesterone shots Start: 11-25-2024 End: 11-25-2024 Patient encounter procedure Us Tech 1 [facility] Work Phone: Reproductive Endocrinology Infertility Comment on above: Infertility Start: 11-25-2024 End: 11-25-2024 ambulatory LEONEL CABEZAS Facility:[facility] Start: 11-24-2024 End: 11-24-2024 Patient encounter procedure Us Tech 1 [facility] Work Phone: Reproductive Endocrinology Infertility Comment on above: Infertility Start: 11-24-2024 End: 11-24-2024 ambulatory SUSHILA LEVY Facility:[facility] Start: 11-22-2024 End: 11-22-2024 ambulatory [facility] Start: 11-22-2024 End: 11-22-2024 Office outpatient new 30 minutes Millie Ellis MD Work Phone: [facility] Comment on above: Inclusion cyst (Prim fabiola Dx) Start: 11-22-2024 End: 11-22-2024 ambulatory [facility] Start: 11-21-2024 End: 11-21-2024 Patient encounter procedure Us Tech 1 [facility] Work Phone: Reproductive Endocrinology Infertility Comment on above: Infertility Start: 11-21-2024 End: 11-21-2024 ambulatory LEONEL DUDZIAK Facility:[facility] Start: 11-14-2024 End: 11-15-2024 Telephone encounter Michel Joseph MD Work Phone: Reproductive Endocrinology Infertility Comment on above: needs letrozole toda y Start: 11-14-2024 End: 11-14-2024 Patient encounter procedure Us Tech 1 [facility] Work Phone: Reproductive Endocrinology Infertility Comment on above: Arrived Start: 11-14-2024 End: 11-14-2024 ambulatory RADHA ATTARAN Facility:[facility] Start: 11-11-2024 End: 11-14-2024 Telephone encounter Michel Joseph MD Work Phone: Reproductive Endocrinology Infertility Comment on above: Appointment Start: 11-09-2024 End: 11-09-2024 Orders Only David Mckeon MD Work Phone: [facility] Start: 11-08-2024 End: 11-08-2024 Telephone encounter Sushila Levy APRN.CNP Work Phone: Reproductive Endocrinology Infertility Comment on above: Refill Request Start: 11-08-2024 End: 11-08-2024 Patient encounter status David Mckeon MD Work Phone: [facility] Start: 11-08-2024 End: 11-08-2024 Periodic preventive med est patient 18-39 yrs David Mckeon MD Work Phone: [facility] Comment on above: Routine general medi aliyah examination at a health care facility (Primary Dx); Inclusion cyst; PCOS (polycystic ovarian syndrome) Start: 11-08-2024 Encounter for genera l adult medical examination without abnormal findings DAVID MCKEON [facility] Start: 11-08-2024 End: 11-08-2024 Refill Sushila Levy APRN.[employer]WA[employer]ATE Work Phone: Reproductive Endocrinology Infertility Comment on above: Refill Request Start: 10-23-2024 End: 10-23-2024 Patient encounter procedure Us Tech 2 [facility] Work Phone: Reproductive Endocrinology Infertility Start: 10-23-2024 End: 10-23-2024 ambulatory SUSHILA LEVY [facility] Start: 10-23-2024 End: 10-23-2024 Nursing evaluation of patient and report Nurse [facility] Work Phone: Reproductive Endocrinology Infertility Comment on above: Female infertility Start: 10-21-2024 End: 10-21-2024 Patient encounter procedure Us Tech 1 [facility] Work Phone: Reproductive Endocrinology Infertility Comment on above: Arrived Start: 10-21-2024 End: 10-21-2024 ambulatory RADHA GILLIAM Facility:[facility] Start: 10-19-2024 End: 10-19-2024 Patient encounter procedure Us Tech 1 [facility] Work Phone: Reproductive Endocrinology Infertility Comment on above: Infertility Start: 10-19-2024 End: 10-19-2024 ambulatory MICHEL JOSEPH Facility:[facility] Start: 10-12-2024 End: 10-12-2024 Patient encounter procedure Us Tech 1 [facility] Work Phone: Reproductive Endocrinology Infertility Comment on above: Arrived Start: 10-12-2024 End: 10-12-2024 ambulatory MICHEL JOSEPH Facility:[facility] Start: 10-10-2024 End: 10-10-2024 Telephone encounter Michel Joseph MD Work Phone: Reproductive Endocrinology Infertility Comment on above: needs to schedule us for so cycle Start: 10-07-2024 End: 10-07-2024 ambulatory DAVID MCKEON [facility] Start: 10-07-2024 End: 10-07-2024 Office outpatient visit 15 minutes David Mckeon MD Work Phone: [facility] Comment on above: PCOS [...] Start: 09-20-2024 End: 09-20-2024 ambulatory MICHEL JOSEPH Facility:[facility] Start: 09-19-2024 End: 09-19-2024 Patient encounter procedure Us Tech 1 [facility] Work Phone: Reproductive Endocrinology Infertility Comment on above: Infertility Start: 09-19-2024 End: 09-19-2024 ambulatory MICHEL JOESPH Facility:[facility] Start: 09-15-2024 End: 09-15-2024 Patient encounter procedure Us Tech 1 [facility] Work Phone: Reproductive Endocrinology Infertility Comment on above: Arrived Start: 09-15-2024 End: 09-15-2024 ambulatory SUSHILA LEVY Facility:[facility] Start: 09-12-2024 End: 09-12-2024 Patient encounter procedure Us Tech 1 [facility] Work Phone: Reproductive Endocrinology Infertility Comment on above: Infertility Start: 09-12-2024 End: 09-12-2024 ambulatory MICHEL JOSEPH Facility:[facility] Start: 09-08-2024 End: 09-09-2024 Telephone encounter Michel Joseph MD Work Phone: Reproductive Endocrinology Infertility Comment on above: Appointment; LMP / set up medicated cycle; Called back today is day 3/ set up super ov Start: 08-17-2024 End: 08-22-2024 Nursing evaluation of patient and report Radha Gilliam MD Work Phone: Reproductive Endocrinology Infertility Comment on above: Female infertility Start: 08-17-2024 End: 08-17-2024 [facility] Facility:[facility] Start: 08-15-2024 End: 08-15-2024 Nursing evaluation of patient and report Arley Parikh MD Work Phone: Reproductive Endocrinology Infertility Comment on above: Female infertility Start: 08-15-2024 End: 08-15-2024 [facility] Facility:[facility] Start: 08-10-2024 End: 08-10-2024 Nursing evaluation of patient and report Nurse [facility] Reproductive Endocrinology Infertility Comment on above: Female infertility Start: 08-10-2024 End: 08-10-2024 [facility] Facility:[facility] Start: 08-08-2024 End: 08-09-2024 Telephone encounter Michel Joseph MD Work Phone: Reproductive Endocrinology Infertility Comment on above: LMP 08/06/24/ set up baselines for super ov Start: 07-18-2024 End: 07-18-2024 Nursing evaluation of patient and report Arley Parikh MD Work Phone: Reproductive Endocrinology Infertility Comment on above: Female infertility Start: 07-18-2024 End: 07-18-2024 ambulatory [facility] Facility:[facility] Start: 07-14-2024 End: 07-14-2024 Nursing evaluation of patient and report Michel Joseph MD Work Phone: Reproductive Endocrinology Infertility Comment on above: Female infertility Start: 07-14-2024 End: 07-14-2024 ambulatory [facility] Facility:[facility] Start: 07-07-2024 End: 07-07-2024 Nursing evaluation of patient and report Radha Gilliam MD Work Phone: Reproductive Endocrinology Infertility Comment on above: Female infertility Start: 07-07-2024 End: 07-07-2024 ambulatory [facility] Facility:[facility] Start: 07-06-2024 End: 07-06-2024 Office outpatient visit 15 minutes David Mckeon MD Work Phone: [facility] Comment on above: Other acute sinusiti s, recurrence not specified (Primary Dx) Start: 07-06-2024 End: 07-06-2024 ambulatory DAVID MCKEON [facility] Start: 07-04-2024 End: 07-04-2024 Telephone encounter Michel Joseph MD Work Phone: Reproductive Endocrinology Infertility Comment on above: Next Steps Start: 06-15-2024 End: 06-15-2024 Nursing evaluation of patient and report Radha Gilliam MD Work Phone: Reproductive Endocrinology Infertility Comment on above: Primary female infer tility Start: 06-15-2024 End: 06-15-2024 [facility] Start: 06-13-2024 End: 06-13-2024 Nursing evaluation of patient and report Arley Parikh MD Work Phone: Reproductive Endocrinology Infertility Comment on above: Primary female infer tility Start: 06-13-2024 End: 06-13-2024 ambulatory [facility] Facility:[facility] Start: 06-10-2024 End: 06-10-2024 ambulatory [facility] Facility:[facility] Start: 06-10-2024 End: 06-10-2024 Nursing evaluation of patient and report Jazmine Gonzalez MD Work Phone: Reproductive Endocrinology Infertility Comment on above: Primary female infer tility Start: 06-06-2024 End: 06-06-2024 Nursing evaluation of patient and report Arley Parikh MD Work Phone: Reproductive Endocrinology Infertility Comment on above: Primary female infer tility Start: 06-06-2024 End: 06-06-2024 ambulatory MICHEL JOSEPH Facility:[facility] Start: 06-03-2024 End: 06-03-2024 Nursing evaluation of patient and report Michel Joseph MD Work Phone: Reproductive Endocrinology Infertility Comment on above: Primary female infer tility Start: 06-03-2024 End: 06-03-2024 ambulatory [facility] Facility:[facility] Start: 05-27-2024 End: 05-27-2024 Nursing evaluation of patient and report Jazmine Gonzalez MD Work Phone: Reproductive Endocrinology Infertility Comment on above: Female infertility Start: 05-27-2024 End: 05-27-2024 ambulatory MICHEL CENTERVIEW Facility:[facility] Start: 05-24-2024 End: 05-24-2024 ambulatory Michel Joseph MD Work Phone: Reproductive Endocrinology Infertility Start: 05-13-2024 End: 05-13-2024 ambulatory MICHEL JOSEPH Facility:[facility] Start: 05-13-2024 End: 05-13-2024 Patient encounter procedure Michel Joseph MD Work Phone: [facility] Comment on above: Pre-operative labora tory examination (Primary Dx); Endometrial polyp; Encounter for fertility testing Start: 05-13-2024 End: 05-13-2024 Patient encounter status Michel Joseph MD Work Phone: [facility] Start: 05-05-2024 End: 05-05-2024 Orders Only [...] Start: 04-29-2024 End: 04-29-2024 Patient encounter procedure Sushila Levy APRN.[employer]ATE Work Phone: Reproductive Endocrinology Infertility Comment on above: Pre-procedure lab ex am (Primary Dx); Fertility testing Start: 04-29-2024 End: 04-29-2024 Patient encounter status Sushila Levy APRN.[employer]WA[employer]ATE Work Phone: [facility] Start: 04-29-2024 End: 04-29-2024 ambulatory MICHEL JOSEPH Facility:[facility] Start: 04-29-2024 Encounter for preprocedural laboratory examination SUSHILA LEVY [facility] Start: 04-15-2024 End: 04-15-2024 Nursing evaluation of patient and report Nurse [facility] Reproductive Endocrinology Infertility Comment on above: Irregular menses (Pr imary Dx); Female infertility Start: 04-15-2024 End: 04-15-2024 ambulatory SUSHILA LEVY Facility:[facility] Start: 04-07-2024 ambulatory Michel briceño MD Work Phone: Reproductive Endocrinology Infertility Comment on above: Bloodwork Start: 04-07-2024 Telephone encounter Jazmine barroso MD Work Phone: Reproductive Endocrinology Infertility Comment on above: nilton knox has ques on getting her labs in [place] Start: 04-05-2024 ambulatory Nilton Zhang RN Reprod [facility] Endocrinology Infertility Start: 04-05-2024 Patient encounter procedure Nilton Zhang RN [facility]ro[facility]ology Infertility Start: 04-04-2024 End: 04-04-2024 ambulatory MICHEL JOSEPH Facility:[facility] Start: 03-30-2024 Telephone encounter Michel hendricks MD [...] Phone: Reproductive Endocrinology Infertility Comment on above: goyo pt ret call s tates she didn't start her provera Start: 03-08-2024 End: 03-08-2024 ambulatory PEPE POPE Facility:[facility] Start: 03-08-2024 End: 03-08-2024 Patient encounter procedure Pepe Pope MD Work Phone: OB/Gynecology Comment on above: Cervical high risk H PV (human papillomavirus) test positive (Primary Dx) Start: 03-07-2024 Telephone encounter Michel hendricks MD Work Phone: Reproductive Endocrinology Infertility Comment on above: discuss her cycle ; lmp Thursday cycle for 1 day Start: 03-02-2024 End: 03-02-2024 Office outpatient visit 25 minutes [facility] JOUR[employer] Work Phone: [facility] Pul[facility]/Sleep Medicine Comment on above: NIKO (obstructive sle ep apnea) (Primary Dx); CPAP use counseling; Obesity, Class III, BMI 40-49.9 (morbid obesity) ([facility]); Noncompliance with CPAP treatment Start: 03-02-2024 End: 03-02-2024 ambulatory [facility] Start: 02-23-2024 End: 02-23-2024 ambulatory MICHEL JOSEPH Facility:[facility] Start: 02-23-2024 End: 02-23-2024 Patient encounter procedure [...] Start: 01-21-2024 End: 01-21-2024 ambulatory PEPE POPE Facility:[facility] Start: 01-21-2024 End: 01-21-2024 Patient encounter procedure [...] encounter status Pepe Pope MD Work Phone: [facility] Work Phone: Start: 01-11-2024 End: 01-11-2024 Nursing evaluation of patient and report Nurse [facility] Reproductive Endocrinology Infertility Comment on above: Female infertility Start: 01-08-2024 Telephone encounter Radha kyle MD Work Phone: Reproductive Endocrinology Infertility Comment on above: Financial Clearance (Please verify if patient is cleared for upcoming cycle. ) Start: 01-08-2024 End: 01-08-2024 Nursing evaluation of patient and report Nurse [facility] Reproductive Endocrinology Infertility Comment on above: [...] up Start: 12-26-2023 End: 12-26-2023 Telephone encounter Violeta Esquivel JOURNEYMAN [employer] Work Phone: [facility] Start: 12-25-2023 Telephone encounter Dmitry Menchaca MD Work Phone: Reproductive Endocrinology Infertility Comment on above: Patient Question; ki ra pt ret call pls leave message on he my chart Start: 12-23-2023 End: 12-23-2023 Telephone encounter Violeta Esquivel JOURNEYMAN [employer] Work Phone: [facility] Start: 12-02-2023 End: 12-02-2023 ambulatory DMITRY MENCHACA Facility:[facility] Start: 11-20-2023 End: 11-20-2023 Patient encounter procedure David Mckeon MD Work Phone: [facility] Comment on above: PCOS (polycystic ova uriel syndrome) (Primary Dx); Hypertriglyceridemia Start: 11-13-2023 End: 11-13-2023 ambulatory KOBI SMOLEN Facility:[facility] Start: 11-13-2023 End: 11-13-2023 ambulatory Kobi Smolen PA-C Work Phone: Reproductive Endocrinology Infertility Comment on above: Post-operative state (Primary Dx) Start: 11-13-2023 End: 11-13-2023 Telemedicine consultation with patient Kobi Quiñonezlen PA-C Work Phone: [facility] Start: 11-06-2023 MC Get Medical Advice Dmitry Menchaca MD Work Phone: Reproductive Endocrinology Infertility Comment on above: HCG order Start: 11-04-2023 End: 11-04-2023 Patient encounter status David Mckeon MD Work Phone: [facility] Work Phone: Start: 11-04-2023 End: 11-04-2023 Periodic preventive med est patient 18-39 yrs David Mckeon MD Work Phone: [facility] Comment on above: Routine general medi aliyah examination at a health care facility (Primary Dx) Start: 10-30-2023 Preprocedural examination done Dmitry Menchaca MD Work Phone: [facility] Work Phone: Start: 10-30-2023 End: 10-30-2023 ambulatory DMITRY MENCHACA Facility:[facility] Start: 10-29-2023 Telephone encounter Dmitry Menchaca MD Work Phone: [facility] Start: 10-26-2023 Orders Only Dmitry Menchaca MD Work Phone: Reproductive Endocrinology Infertility Comment on above: Missed (Krystal khurram Dx) Start: 10-23-2023 Telephone encounter Dmitry Menchaca MD Work Phone: Obstetrics/Gynecology Comment on above: Banjo Repair Person - O ther (Pt loss ) Start: 10-23-2023 End: 10-23-2023 Patient encounter procedure Whi Tech 2 Heat Set [address] RD Work Phone: Maternal Medicine Comment on above: Non-viable (Primary Dx) Start: 10-22-2023 Transcribe Orders Heat Set Operator Trans cribe Provider Maternal Medicine Comment on above: Encounter to determi ne viability of , fetus 1 of multiple gestation (Primary Dx) Start: 10-16-2023 End: 10-16-2023 flow sheet [facility] Nurse [facility] Comment on above: GA: 8w5d Start: 09-30-2023 End: 10-01-2023 Emergency department patient visit MD David Mkceon Work Phone: [facility] Work Phone: Start: 09-18-2023 End: 09-18-2023 ambulatory KOBI WEINER Facility:[facility] Start: 09-15-2023 Telephone encounter Eugenia [facility] Start: 08-25-2023 End: 08-25-2023 Nursing evaluation of patient and report Zhen Sears MD Work Phone: Reproductive Endocrinology Infertility Comment on above: Female infertility Start: 08-19-2023 End: 08-19-2023 Nursing evaluation of patient and report Radha Gilliam MD Work Phone: Reproductive Endocrinology Infertility Comment on above: Female infertility Start: 08-18-2023 Orders Only Leonel colon APRN.[employer] Work Phone: Reproductive Endocrinology Infertility Comment on above: Female infertility ( Primary Dx) Start: 08-17-2023 Telephone encounter Radha kyle MD Work Phone: Reproductive Endocrinology Infertility Comment on above: Patient Update Start: 08-11-2023 End: 08-11-2023 Patient encounter procedure Otilia Camp MD Work Phone: Allergy Comment on above: Allergy to drug (Krystal khurram Dx); Dry nares; Seasonal allergic rhinitis due to pollen Start: 07-30-2023 ambulatory Ines Khan MD Work Phone: Reproductive Endocrinology Infertility Comment on above: Allergy Testing Start: 07-30-2023 E-mail encounter fro m caregiver Ines Julio MD Work Phone: [facility] Start: 07-30-2023 End: 07-30-2023 Nursing evaluation of [...] encounter procedure Radha Gilliam MD Work Phone: [facility] Start: 07-14-2023 Refill Sushila Melissa del cid APRN.CNP Work Phone: Reproductive Endocrinology Infertility Comment on above: Refill Request Start: 06-26-2023 End: 06-26-2023 Nursing evaluation of patient and report Arley Parikh MD Work Phone: Reproductive Endocrinology Infertility Comment on above: Primary female infer tility Start: 05-28-2023 End: 05-28-2023 Nursing evaluation of patient and report Dmitry Menchaca MD Work Phone: Reproductive Endocrinology Infertility Comment on above: Infertility, female (Primary Dx); Encounter for fertility testing Start: 05-26-2023 Telephone encounter Dmitry Menchaca MD Work Phone: [facility] Comment on above: Medication Problem Start: 05-25-2023 Telephone encounter Dmitry Menchaca MD Work Phone: [facility] Comment on above: Patient Update Start: 05-25-2023 End: 05-25-2023 ambulatory Arley Parikh MD Work Phone: Reproductive Endocrinology Infertility Start: 05-25-2023 End: 05-25-2023 Patient encounter procedure Arley Parikh MD Work Phone: [facility] Start: 05-21-2023 Telephone encounter Dmitry Menchaca [...] evaluation of patient and report Nurse [facility] Work Phone: Reproductive Endocrinology Infertility Comment on above: Negative t est (Primary Dx) Start: 04-03-2023 End: 04-03-2023 Subsequent hospital visit by physician Vishal Archuleta [facility] [place] Comment on above: Encounter for fertil ity testing [Z31.41] Start: 03-09-2023 End: 03-09-2023 Immunity to rubella by positive serology [facility] Work Phone: Rep[facility] Endocrinology Infertility Start: 03-09-2023 End: 03-09-2023 Immunity to varicella by positive serology Nurse [facility] Work Phone: Reproductive Endocrinology Infertility Start: 03-09-2023 End: 03-09-2023 Nursing evaluation of patient and report Nurse [facility] Work Phone: Reproductive Endocrinology Infertility Comment on above: Encounter for fertil ity testing (Primary Dx); Immunity to varicella determined by serologic test; Immunity to rubella determined by serologic test Start: 03-05-2023 ambulatory Dmitry Menchaca MD Work Phone: [facility] Start: 03-05-2023 Patient encounter procedure Dmitry Menchaca MD Work Phone: Reproductive Endocrinology Infertility Comment on above: Nurse appointment Start: 02-23-2023 Telephone encounter Dmitry Menchaca MD Work Phone: Reproductive Endocrinology Infertility Comment on above: Patient Question Medication Problem Start: 02-20-2023 Telephone encounter Dmitry Menchaca MD Work Phone: Reproductive Endocrinology Infertility Comment on above: New IVF Start: 02-18-2023 End: 02-18-2023 ambulatory DMITRY MENCHACA Facility:[facility] Start: 12-19-2022 End: 12-19-2022 Nursing evaluation of patient and report Nurse [facility] Reproductive Endocrinology Infertility Comment on above: Female infertility Start: 12-01-2022 ambulatory Sushila del cid APRN.[employer] Work Phone: Reproductive Endocrinology Infertility Comment on above: Next Steps Start: 11-30-2022 ambulatory Sushila del cid JOURNEYMAN PATTERNMAKER.[employer] Work Phone: Reproductive Endocrinology Infertility Comment on above: Cycle Start: 11-28-2022 Telephone encounter Dmitry Menchaca MD Work Phone: Reproductive Endocrinology Infertility Comment on above: metformin refill / c ompletely out Start: 11-26-2022 Get Medical Advice Dmitry Menchaca MD Work Phone: Reproductive Endocrinology Infertility Comment on above: Refill Start: 11-17-2022 ambulatory Sushila del cid JOURNEYMAN PATTERNMAKER.[employer] Work Phone: Reproductive Endocrinology Infertility Comment on above: Progesterone draw Start: 11-10-2022 End: 11-10-2022 Nursing evaluation of patient and report Nurse [facility] Reproductive Endocrinology Infertility Comment on above: Female infertility Start: 11-07-2022 ambulatory Sushila del cid JOURNEYMAN PATTERNMAKER.[employer] Work Phone: Reproductive Endocrinology Infertility Comment on above: Dexamethasone Start: 11-07-2022 End: 11-07-2022 Nursing evaluation of patient and report Nurse [facility] Reproductive Endocrinology Infertility Comment on above: Female infertility ( Primary Dx); Encounter for fertility planning Start: 10-27-2022 Telephone encounter Dmitry Menchaca MD Work Phone: Reproductive Endocrinology Infertility Comment on above: cd2; ret call Start: 09-30-2022 ambulatory Sushila del cid [employer] Work Phone: Reproductive Endocrinology Infertility Comment on [...] with patient Dmitry Menchaca MD Work Phone: [facility] Start: 09-13-2021 End: 09-14-[address] DAVID MCKEON Facility:[facility] Start: 03-22-2021 End: 03-23-[address] DAVID MCKEON Facility:[facility] Start: 03-06-2021 End: 03-07-[address] DOCTOR GUPTA Facility:H1 Start: 01-15-2021 End: 01-16-[address] DOCTOR GUPTA Facility:[facility]1 Start: 10-04-2020 End: 10-04-[address] DOCTOR GUPTA Facility:H1 Procedures Date Procedure Procedure Detail Performing Clinician Start: 01-24-2025 ALL CBC WITH AUTO DIFF Conor Cortes DO Work Phone: Start: 01-23-2025 US OB TRANSVAGINAL Concha poly L Floro CNM Work Phone: Start: 01-23-2025 TBH PREG QUANT HCG Concha poly L Floro CNM Work Phone: Start: 01-17-2025 US OB TRANSVAGINAL Grafton polyondina Sales CN Work Phone: Start: 01-09-2025 Us preg uterus after 1st trimest 09/14 gestation Michel Joseph MD Work Phone: Start: 12-30-2024 Us preg uterus after 1st trimest 09/14 gestation Kobi Weiner PA-C Work Phone: Start: 11-25-2024 Us pelvic nonobstetr ic image dcmtn limited/f/u Leonel Dudziak JOURNEYMAN PATTERN[employer]ER[employer] Work Phone: Start: 11-24-2024 Us pelvic nonobstetr ic image dcmtn limited/f/u Leonel Dudziak JOURNEYMAN PAT[employer]MA[employer] Work Phone: Start: 11-21-2024 Us pelvic nonobstetr ic image dcmtn limited/f/u Leonel Dudziak JOURNEYMAN PATTERNMAKER.[employer] Work Phone: Start: 11-14-2024 Us pelvic nonobstetr ic image dcmtn limited/f/u Leonel Dudziak JOURNEYMAN PATTERN[employer] Work Phone: Start: 11-08-2024 Adult depression scr eening assessment David Mckeon MD Work Phone: Start: 10-23-2024 Us pelvic nonobstetr ic image dcmtn limited/f/u Sushila Mindzora JOURNEYMAN PATTERNMAK[employer] Work Phone: Start: 10-23-2024 Assay of estradiol Maine Gilliam MD Work Phone: Start: 10-21-2024 Us pelvic nonobstetr ic image dcmtn limited/f/u Sushila Mindzora JOURNEYMAN PAT[employer]MAK[employer] Work Phone: Start: 10-19-2024 Us pelvic nonobstetr ic image dcmtn limited/f/u Michel Joseph MD Work Phone: Start: 10-12-2024 Us pelvic nonobstetr ic image dcmtn limited/f/u Michel Joseph MD Work Phone: Start: 10-07-2024 Adult depression scr eening assessment David Mckeon MD Work Phone: Start: 09-20-2024 Us pelvic nonobstetr ic image dcmtn limited/f/u Michel Joseph MD Work Phone: Start: 09-19-2024 Us pelvic nonobstetr ic image dcmtn limited/f/u Michel Joseph MD Work Phone: Start: 09-15-2024 Us pelvic nonobstetr ic image dcmtn limited/f/u Michel Joseph MD Work Phone: Start: 09-12-2024 Us pelvic nonobstetr ic image dcmtn limited/f/u Michel Joseph MD Work Phone: Start: 08-17-2024 Us pelvic nonobstetr ic image dcmtn limited/f/u Sushila Mindzora JOURNEYMAN PAT[employer] Work Phone: Start: 08-15-2024 Us pelvic nonobstetr ic image dcmtn limited/f/u Sushila Mindzora JOURNEYMAN PAT[employer]MA[employer] Work Phone: Start: 08-10-2024 Us pelvic nonobstetr ic image dcmtn limited/f/u Sushila Mindzora JOURNEYMAN PAT[employer] Work Phone: Start: 07-18-2024 Us pelvic nonobstetr ic image dcmtn limited/f/u Sushila Mindzora JOURNEYMAN PAT[employer] Work Phone: Start: 07-14-2024 Us pelvic nonobstetr ic image dcmtn limited/f/u Sushila Mindzora JOURNEYMAN PATTERNMA[employer] Work Phone: Start: 07-07-2024 Us pelvic nonobstetr ic image dcmtn limited/f/u Sushila Mindzora JOURNEYMAN PAT[employer]MA[employer] Work Phone: Start: 07-06-2024 Adult depression scr [...] PA-C Work Phone: Start: 05-27-2024 Antibody screen SUSHILA LEVY Comment on above: Order Comment: Speci men Type: BLOOD SPECIMEN Ordering Facility: [facility] Address: [address] [place] [address] Performed By: #### 1 0501-5, 2839-9, 2243-4 #### [facility] CLIA [id number] [facility]. [address] [place] Start: 05-13-2024 Urine test visual color cmprsn jerzy Joseph MD Work Phone: Start: 04-29-2024 Saline infus sonohysterography w/color doppler Michel Joseph MD Work Phone: Start: 04-29-2024 Urine test visual color cmprsn jerzy Levy JOURNEYMAN PAT[employer] Work Phone: Start: 04-15-2024 Us pelvic nonobstetr ic image dcmtn limited/f/u Kobi Weiner PA-C Work Phone: Start: 03-08-2024 Colposcopy entire va mario w/cervix if present Pepe Pope MD Work Phone: Start: 03-08-2024 UA DIP,URINE HCG (POC) Pepe Pope MD Work Phone: Start: 01-21-2024 Microscopic observat ion [Identifier] in Cervix by Cyto stain Violeta Esquivel JOURNEYMAN PAT[employer] Work Phone: Start: 01-11-2024 Us pelvic nonobstetr ic image dcmtn limited/f/u Leonel Dudziak JOURNEYMAN PAT[employer] Work Phone: Start: 01-08-2024 Us pelvic nonobstetr ic image dcmtn limited/f/u Leonel Dudziak JOURNEYMAN PATTERNMAKER.[employer] Work Phone: Start: 01-01-2024 Us pelvic nonobstetr ic image dcmtn limited/f/u Leonel Dudziak JOURNEYMAN PATTERNMA[employer] Work Phone: Start: 11-20-2023 Adult depression scr eening assessment David Mckeon MD Work Phone: Start: 11-04-2023 Adult depression scr eening assessment David Mckeon MD Work Phone: Start: 10-23-2023 Us preg uterus after 1st trimest 09/14 gestation Heat Set Operator Transcribe Provider Start: 08-25-2023 Us pelvic nonobstetr ic image dcmtn limited/f/u Leonel Dudziak JOURNEYMAN PAT[employer] Work Phone: Start: 08-19-2023 Us pelvic nonobstetr ic image dcmtn limited/f/u Leonel Dudziak JOURNEYMAN PATTERNMAKER.[employer] Work Phone: Start: 08-11-2023 ALLERGEN SKIN TEST-MARIA [...] nonobstetr ic image dcmtn limited/f/u Leonel Dudziak JOURNEYMAN PATTERNMAKER.[employer] Work Phone: Start: 05-25-2023 Us pelvic nonobstetr ic image dcmtn limited/f/u Leonel Dudziak JOURNEYMAN PATTERNMAK[employer] Work Phone: Start: 05-21-2023 Us pelvic nonobstetr ic image dcmtn limited/f/u Leonel Dudziak JOURNEYMAN PATTERNMAKER.[employer] Work Phone: Start: 05-13-2023 Us pelvic nonobstetr ic image dcmtn limited/f/u Leonel Dudziak JOURNEYMAN PATTERNMA[employer] Work Phone: Start: 04-03-2023 Cath & saline/contra st sonohyster/hysterosalpi Jazmine Gonzalez MD Work Phone: Start: 12-19-2022 Us pelvic nonobstetr ic image dcmtn limited/f/u Sushila Mindzora JOURNEYMAN PAT[employer]MAK[employer] Work Phone: Start: 11-10-2022 Us pelvic nonobstetr ic image dcmtn limited/f/u Sushila Mindzora JOURNEYMAN PATTERNMAKER.[employer] Work Phone: Start: 11-07-2022 Us pelvic nonobstetr ic image dcmtn limited/f/u Kobi Weiner PA-C Work Phone: Start: 11-03-2022 Adult depression scr eening assessment Eugenia Cerda CMA Plan of Treatment Date Care Activity Detail Author Start: 2045 RSV Vaccine (1 - 1-dose 60+ series) RSV Vaccine (1 - 1-dose 60+ series) [facility] Start: 01-20-2029 Screening for malignant neoplasm of cervix [facility] Start: 01-20-2027 Screening for malignant neoplasm of cervix Pap Smear [facility] Start: 12-06-2025 Tobacco Screening Tobacco Screening [facility] Start: 11-22-2025 Adult BMI Screening Adult BMI Screening [facility] Start: 11-22-2025 Tobacco Screening Tobacco Screening [facility] Start: 11-09-2025 End: 11-09-2025 Patient encounter procedure 11/09/2025 8:30 AM EST Office Visit [facility] [address] [place], [place] [phone] Jesus Berumen MD [address] [place], [place] [phone] [facility] Start: 11-08-2025 Adult BMI Screening Adult BMI Screening [facility] Start: 11-08-2025 Depression Screening Depression Screening [facility] Start: 11-08-2025 Tobacco Screening Tobacco Screening [facility] Start: 07-06-2025 Adult BMI Screening Adult BMI Screening [facility] Start: 07-06-2025 Depression Screening Depression Screening [facility] Start: 07-06-2025 Tobacco Screening Tobacco Screening [facility] Start: 05-15-2025 Influenza vaccination Influenza Vaccine (Season Ended) [facility] Start: 03-02-2025 Adult BMI Screening Adult BMI Screening [facility] Start: 03-02-2025 Tobacco Screening Tobacco Screening [facility] Start: 01-20-2025 Screening for malignant neoplasm of cervix Cervical Cancer Screening [facility] Start: 01-20-2025 End: 01-20-2025 Professional / ancillary services management 01/20/2025 9:00 AM EDT Ancillary Procedure [facility] [address] [phone] [facility] Start: 01-10-2025 End: 01-10-2025 ambulatory 01/10/2025 4:30 PM EDT Initial [facility] [address] [facility] [phone] Leonel Sales, CNM [address] [place] [address] Arrived [facility] Comment on above: Arrived Start: 12-30-2024 End: 12-30-2025 OBSTETRIC ULTRASOUND [facility] OBSTET[facility] ULTRASOUND [facility] Anc Imaging Routine Encounter for test, result positive (HCC) Expected: 12/30/2024, Expires: 12/30/2025 [facility] Work Phone: Comment on above: Expected: 12/30/2024, Expires: Start: 12-30-2024 End: 12-30-2024 Nursing evaluation of patient and report 12/30/2024 10:10 AM EDT Nurse Visit [facility] [address] [place] [address] [facility] Comment on above: us Start: 12-16-2024 End: 12-16-2025 OBSTETRIC ULTRASOUND [facility] OBSTETRIC ULTRASOUND [facility] Anc Imaging Routine Encounter for test, result positive (HCC) Expected: 12/16/2024, Expires: 12/16/2025 [facility] Work Phone: Comment on above: Expected: 12/16/2024, Expires: Start: 12-06-2024 End: 12-06-2024 Patient encounter procedure 12/06/2024 10:15 AM EDT Office Visit [facility] [address] [place] [phone] Abida Duckworth, JOURNEYMAN PATTERNMAKER-[employer] [address] [place] [address] [facility] Start: 11-25-2024 End: 11-25-2024 Patient encounter procedure 11/25/2024 7:00 AM EDT Procedure [facility] [address] [place] [address] Visit type: Baseline SO us/e2 [facility] Comment on above: Visit type: Baseline SO us/e2 Start: 11-24-2024 End: 11-24-2024 Patient encounter procedure 11/24/2024 7:40 AM EDT Procedure [facility] [address] [place] [address] Visit type: Monitoring, SO us/e2 [facility] Comment on above: Visit type: Monitoring, SO us/e2 Start: 11-21-2024 End: 11-21-2024 Patient encounter procedure 11/21/2024 8:20 AM EDT Procedure [facility] [address] [place] [address] monitoring OI, us/e2 [facility] Comment on above: monitoring OI, us/e2 Start: 11-19-2024 Depression Screening Depression Screening [facility] Start: 11-19-2024 Tobacco Screening Tobacco Screening [facility] Start: 11-08-2024 End: 11-08-2025 CBC W Auto Differential panel - Blood CBC auto differential Lab Routine Routine general medical examination at a health care facility Expected: 11/08/2024, Expires: 11/08/2025 [facility] Work Phone: Comment on above: Expected: 11/08/2024, Expires: Start: 11-08-2024 End: 11-08-2025 Comprehensive metabolic 2000 panel - Serum or Plasma Comprehensive metabolic panel Lab Routine Routine general medical examination at a health care facility Expected: 11/08/2024, Expires: 11/08/2025 [facility] Comment on above: Expected: 11/08/2024, Expires: Start: 11-08-2024 End: 11-08-2025 Lipid 1996 panel - Serum or Plasma Lipid profile Lab Routine Routine general medical examination at a health care facility Expected: 11/08/2024, Expires: 11/08/2025 [facility] Comment on above: Expected: 11/08/2024, Expires: Start: 11-08-2024 End: 11-08-2025 Thyroid profile includes TSH FT4 Thyroid profile includes TSH FT4 Lab Routine Routine general medical examination at a health care facility Expected: 11/08/2024, Expires: 11/08/2025 [facility] Comment on above: Expected: 11/08/2024, Expires: Start: 11-08-2024 End: 11-08-2024 Patient encounter procedure [facility] Start: 11-04-2024 Adult BMI Screening Adult BMI Screening [facility] Start: 11-04-2024 Depression Screening Depression Screening [facility] Start: 11-04-2024 Tobacco Screening Tobacco Screening [facility] Start: 10-23-2024 End: 10-23-2024 ambulatory 10/23/2024 9:00 AM EST Procedure [facility] [address] [facility] [place] [id number] Monitoring, SO/US,e2 [facility] Comment on above: Monitoring, SO/US,e2 Start: 10-23-2024 End: 10-23-2024 Nursing evaluation of patient and report 10/23/2024 8:30 AM EST Nurse Visit [facility] [address] [facility] [address] Beac, Nurse [facility] [address] [facility] [place] [id number] e2 [facility] Comment on above: e2 Start: 10-20-2024 End: 10-20-2024 Patient encounter procedure 10/20/2024 6:00 PM EST Office Visit [facility] [address] [place] [address] Benefit check- Follicular US [facility] Comment on above: Benefit check- Follicular US Start: 10-19-2024 End: 10-19-2024 Patient encounter procedure 10/19/2024 7:20 AM EST Procedure [facility] [address] [place] [address] Monitoring, SO us/e2 [facility] Comment on above: Monitoring, SO us/e2 Start: 09-21-2024 End: 09-21-2024 Follow-up encounter 09/21/2024 1:30 PM EST [facility] [address] [place] [address] [place] [address] [place] [address] follow up SO cycle [facility] Comment on above: follow up SO cycle Start: 09-20-2024 End: 09-20-2024 ambulatory 09/20/2024 9:30 AM EST Procedure [facility] [address] [place] [address] Monitoring, SO us/e2 [facility] Comment on above: Monitoring, SO us/e2 Start: 09-19-2024 End: 09-19-2024 Patient encounter procedure 09/19/2024 7:20 AM EST Procedure [facility] [address] [place] [address] monitoring, so us/e2 [facility] Comment on above: monitoring, so us/e2 Start: 09-15-2024 End: 09-15-2024 Patient encounter procedure 09/15/2024 7:00 AM EST Procedure [facility] [address] [place] [address] SO us/e2 [facility] Comment on above: SO us/e2 Start: 09-09-2024 End: 09-09-2024 Patient encounter procedure 09/09/2024 6:00 PM EST Office Visit [facility] [address] [place] [address] follicle us -benefit check [facility] Comment on above: follicle us -benefit check Start: 08-17-2024 End: 08-17-2024 Nursing evaluation of patient and report 08/17/2024 7:30 AM EST Nurse Visit [facility] [address] [place] [address] William Nurse [facility] [address] [place] [address] SuperOV US/e2 [facility] Comment on above: SuperOV US/e2 Start: 08-10-2024 End: 08-10-2024 Nursing evaluation of patient and report 08/10/2024 7:30 AM EST Nurse Visit [facility] [address] [place] [address] Rej, Nurse [facility] [address] [place] [address] e2 and us [facility] Comment on above: e2 and us Start: 07-18-2024 End: 07-18-2024 Nursing evaluation of patient and report 07/18/2024 7:00 AM EST Nurse Visit [facility] [address] [place] [address] Rej, Nurse [facility] [address] [place] [address] us,e2 [facility] Comment on above: us,e2 Start: 07-14-2024 End: 07-14-2024 Nursing evaluation of patient and report 07/14/2024 7:00 AM EDT Nurse Visit [facility] [address] [place] [address] Rej, Nurse [facility] [id number] [place] [address] superov us/e2 [facility] Comment on above: superov us/e2 Start: 07-07-2024 End: 07-07-2024 Nursing evaluation of patient and report 07/07/2024 7:30 AM EDT Nurse Visit [facility] [address] [place] [address] Rej, Nurse [facility] [address] [place] [address] SO baseline [facility] Comment on above: SO baseline Start: 06-15-2024 End: 06-15-2024 Nursing evaluation of patient and report 06/15/2024 7:00 AM EDT Nurse Visit [facility] [address] [place] [address] Rej, Nurse [facility] [phone] [place] [address] IVF us/e2/p4/lh [facility] Comment on above: IVF us/e2/p4/lh Start: 06-14-2024 End: 09-13-2024 Estradiol (E2) [Mass/volume] in Serum or Plasma ESTRADIOL-17B BLD Lab STAT Primary female infertility Expected: 06/14/2024 (Approximate), Expires: 09/13/2024 [facility] Comment on above: Expected: 06/14/2024 (Approximate), Expi res: 09/13/2024 Start: 06-14-2024 End: 09-13-2024 Lutropin [Units/volume] in Serum or Plasma LUTEINIZING HORMONE Lab STAT Primary female infertility Expected: 06/14/2024 (Approximate), Expires: 09/13/2024 [facility] Work Phone: Comment on above: Expected: 06/14/2024 (Approximate), Expi res: 09/13/2024 Start: 06-14-2024 End: 09-13-2024 Progesterone [Mass/volume] in Serum or Plasma PROGESTERONE Lab STAT Primary female infertility Expected: 06/14/2024 (Approximate), Expires: 09/13/2024 [facility] Comment on above: Expected: 06/14/2024 (Approximate), Expi res: 09/13/2024 Start: 06-13-2024 End: 06-13-2024 Nursing evaluation of patient and report 06/13/2024 8:15 AM EDT Nurse Visit [facility] [address] [place] [address] Rej, Nurse [facility] [address] [place] [address] superov us/e2 [facility] Comment on above: superov us/e2 Start: 06-06-2024 End: 06-06-2024 Nursing evaluation of patient and report 06/06/2024 8:45 AM EDT Nurse Visit [facility] [address] [place] [address] Rej, Nurse [facility] [address] [place] [address] S/O ,us e2 [facility] Comment on above: S/O ,us e2 Start: 06-03-2024 End: 06-03-2024 Patient encounter procedure 06/03/2024 8:40 AM EDT Office [place] [address] Fertility assistance [facility] Scre[facility] Comment on above: Fertility assistance Start: 06-03-2024 End: 06-03-2024 Nursing evaluation of patient and report 06/03/2024 7:00 AM EDT Nurse Visit [facility] [address] [place] [address] William, Nurse [facility] [address] [place] [address] Superov us/e2 [facility] Comment on above: Superov us/e2 Start: 05-30-2024 End: 05-30-2024 Telemedicine consultation with patient 05/30/2024 3:30 PM EDT Telemedicine [facility] [address] [address] Violeta Esquivel, JOURNEYMAN PATTERNMAKER-[employer] [address] [address] [facility] Start: 05-15-2024 Covid-19 Vaccine ( season) Covid-19 Vaccine ( season) [facility] Start: 05-15-2024 Covid-19 Vaccine ( season) Covid-19 Vaccine ( season) [facility] Start: 05-15-2024 Influenza vaccination [facility] Start: 04-29-2024 End: 04-29-2024 Patient encounter procedure 04/29/2024 11:00 AM EDT Office Visit [facility] [address] [place] [address] Sushila Levy, JOURNEYMAN PATTERNMAKER.[employer] [address] [facility] [place] [address] Nurse William [facility] [address] [place] [address] SIS [facility] Comment on above: SIS Start: 04-15-2024 End: 04-15-2024 Nursing evaluation of patient and report 04/15/2024 7:45 AM EDT Nurse Visit [facility] [address] [place] [address] William, Nurse [facility] [address] [place] [address] midcycle ,lab work [facility] Comment on above: 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 ,lab work Start: 03-12-2024 End: 03-12-2024 Patient encounter procedure 03/12/2024 6:00 PM EDT Office Visit [facility] [address] [place] [address] SIS benefit check [facility] Comment on above: SIS benefit check Start: 03-10-2024 End: 03-10-2024 Patient encounter procedure 03/10/2024 6:00 PM EDT Office Visit [facility] [address] [place] [address] Follicle us benefit check [facility] Comment on above: Follicle us benefit check Start: 03-08-2024 End: 03-08-2024 Patient encounter procedure 03/08/2024 2:00 PM EDT Office Visit OB/Gynecology [address] [place] [address] [place] [address] [place], [place] [phone] COLPOSCOPY; Cervical high risk HPV (human papillomavirus) test positive [R87.810] OB/Gynecology Comment on above: COLPOSCOPY; Cervical high risk HPV (fran n papillomavirus) test positive [R87.810] Start: 03-02-2024 End: 03-02-2024 Patient encounter procedure 03/02/2024 9:45 AM EDT Office Visit [facility] [address] [facility] [place] [place] [address] Violeta Esquivel, JOURNEYMAN PATTERNMAKER-[employer]ATE [address] [facility] [address] [place] [address] [facility] Start: 02-23-2024 End: 02-23-2024 Patient encounter procedure 02/23/2024 3:00 PM EDT Office Visit [facility] [address] [address] [place] [address] [place] [address] Follow up, discuss plans former Althae knox [facility] Comment on above: Follow up, discuss plans former Althea crow t Start: 02-23-2024 End: 05-24-2024 17-Hydroxyprogesterone [Mass/volume] in Serum or Plasma HYDROXYPROGESTERONE-17 Lab Routine Androgen excess Expected: 02/23/2024, Expires: 05/24/2024 [facility] Comment on above: Expected: 02/23/2024, Expires: Start: 02-23-2024 End: 05-24-2024 Progesterone [Mass/volume] in Serum or Plasma PROGESTERONE Lab Routine Androgen excess Expected: 02/23/2024, Expires: 05/24/2024 [facility] Comment on above: Expected: 02/23/2024, Expires: Start: 02-23-2024 End: 05-24-2024 Testosterone [Mass/volume] in Serum or Plasma TESTOSTERONE, TOTAL Lab Routine Androgen excess Expected: 02/23/2024, Expires: 05/24/2024 [facility] Work Phone: Comment on above: Expected: 02/23/2024, Expires: 4 Start: 02-23-2024 End: 05-24-2024 Thyrotropin [Units/volume] in Serum or Plasma THYROID STIMULATING HORMONE Lab Routine Androgen excess Expected: 02/23/2024, Expires: 05/24/2024 [facility] Comment on above: Expected: 02/23/2024, Expires: 4 Start: 02-23-2024 End: 02-22-2025 US Uterus and Fallopian tubes W saline IU SONOHYSTEROGRAPHY (SIS) US [facility] Anc Imaging Routine Fertility testing Expected: 02/23/2024, Expires: 02/22/2025 [facility] Comment on above: Expected: 02/23/2024, Expires: 5 Start: 02-05-2024 End: 05-06-2024 Choriogonadotropin.beta subunit [Units/volume] in Serum or Plasma HCG QUANTITATIVE Lab STAT Encounter for fertility testing Expected: 02/05/2024, Expires: 05/06/2024 [facility] Work Phone: Comment on above: Expected: 02/05/2024, Expires: Start: 01-21-2024 End: 01-21-2024 Patient encounter procedure 01/21/2024 8:20 AM EDT Office Visit OB/Gynecology [address] [facility] [place] [address] [place] [address] [place] [address] annual OB/Gynecology Comment on above: annual Start: 01-19-2024 End: 01-19-2024 Patient encounter procedure 01/19/2024 8:30 AM EDT Office Visit [facility] [address] [place] [address] Joan Taylor MD [address] [address] [place] [address] [facility] Start: 12-30-2023 End: 03-30-2024 Choriogonadotropin.beta subunit [Units/volume] in Serum or Plasma HCG QUANTITATIVE Lab STAT Female infertility Expected: 12/30/2023, Expires: 03/30/2024 [facility] Work Phone: Comment on above: Expected: 12/30/2023, Expires: Start: 12-30-2023 End: 03-30-2024 Lutropin [Units/volume] in Serum or Plasma LUTEINIZING HORMONE Lab STAT Female infertility Expected: 12/30/2023, Expires: 03/30/2024 [facility] Work Phone: Comment on above: Expected: 12/30/2023, Expires: Start: 12-30-2023 End: 03-30-2024 Progesterone [Mass/volume] in Serum or Plasma PROGESTERONE Lab STAT Female infertility Expected: 12/30/2023, Expires: 03/30/2024 [facility] Work Phone: Comment on above: Expected: 12/30/2023, Expires: Start: 11-20-2023 End: 11-19-2024 Hemoglobin A1c/Hemoglobin.total in Blood Hemoglobin A1c Lab Routine PCOS (polycystic ovarian syndrome) Hypertriglyceridemia Expected: 11/20/2023, Expires: 11/19/2024 [facility] Comment on above: Expected: 11/20/2023, Expires: Start: 11-20-2023 End: 11-19-2024 Lipid 1996 panel - Serum or Plasma Lipid profile Lab Routine PCOS (polycystic ovarian syndrome) Hypertriglyceridemia Expected: 11/20/2023, Expires: 11/19/2024 [facility] Work Phone: Comment on above: Expected: 11/20/2023, Expires: Start: 11-05-2023 End: 11-05-2023 ambulatory 11/05/2023 11:00 AM EST Initial [facility] [address] [facility] [address] [place] [id number] Joan Taylor MD [address] [facility] [address] [place] [address] [facility] Start: 11-04-2023 End: 11-03-2024 CBC W Auto Differential panel - Blood CBC auto differential Lab Routine Routine general medical examination at a health care facility Expected: 11/04/2023, Expires: 11/03/2024 [facility] Work Phone: Comment on above: Expected: 11/04/2023, Expires: Start: 11-04-2023 End: 11-03-2024 Comprehensive metabolic 2000 panel - Serum or Plasma Comprehensive metabolic panel Lab Routine Routine general medical examination at a health care facility Expected: 11/04/2023, Expires: 11/03/2024 [facility] Comment on above: Expected: 11/04/2023, Expires: Start: 11-04-2023 End: 11-03-2024 Lipid 1996 panel - Serum or Plasma Lipid profile Lab Routine Routine general medical examination at a health care facility Expected: 11/04/2023, Expires: 11/03/2024 [facility] Comment on above: Expected: 11/04/2023, Expires: Start: 11-04-2023 End: 11-04-2023 Patient encounter procedure 11/04/2023 8:00 AM EST Office Visit [facility] [address] [place] [id number] David Mckeon MD [address] [place] [address] [facility] Start: 11-03-2023 Adult BMI Screening Adult BMI Screening [facility] Start: 11-03-2023 Depression Screening Depression Screening [facility] Start: 11-03-2023 Tobacco Screening Tobacco Screening [facility] Start: 10-22-2023 End: 10-22-2024 OBSTETRIC ULTRASOUND WHI OBSTETRIC ULTRASOUND WHI Anc Imaging Routine Encounter to determine viability of , fetus 1 of multiple gestation Expected: 10/22/2023, Expires: 10/22/2024 [facility] Comment on above: Expected: 10/22/2023, Expires: Start: 10-21-2023 End: 10-21-2023 Professional / ancillary services management 10/21/2023 8:00 AM EST Ancillary Procedure [facility] [address] [place] [address] [facility] Start: 10-16-2023 End: 10-16-2024 Bacteria identified in Urine by Culture Urine culture Microbiology Routine Encounter for supervision of normal first in first trimester Expected: 10/16/2023 (Approximate), Expires: 10/16/2024 [facility] Comment on above: Expected: 10/16/2023 (Approximate), Expi res: 10/16/2024 Start: 10-16-2023 End: 10-16-2024 Urinalysis complete panel - Urine Urinalysis with microscopic Lab Routine Encounter for supervision of normal first in first trimester Expected: 10/16/2023 (Approximate), Expires: 10/16/2024 [facility] Comment on above: Expected: 10/16/2023 (Approximate), Expi res: 10/16/2024 Start: 09-30-2023 Diagnostic ultrasound of gravid uterus [facility] Start: 09-30-2023 Ultrasonography of bilateral kidneys US renal BI [facility] Start: 09-30-2023 US Kidney - bilateral [facility] Start: 09-30-2023 Transvaginal obstetric ultrasonography [facility] Start: 09-14-2023 Behavioral Health Screening Behavioral Health Screening [facility] Start: 09-14-2023 Depression Assessment Depression Assessment [facility] Start: 09-14-2023 zzBehavioral Health Screening zzBehavioral Health Screening [facility] Start: 05-15-2023 Covid-19 Vaccine () Covid-19 Vaccine () [facility] Start: 05-15-2023 Influenza vaccination [facility] Start: 03-09-2023 End: 05-09-2023 RUBELLA IGG AB RUBELLA IGG AB Lab Routine Immunity to rubella determined by serologic test Expected: 03/09/2023, Expires: 05/09/2023 [facility] Work Phone: Comment on above: Expected: 03/09/2023, Expires: 3 Start: 03-09-2023 End: 05-09-2023 TYPE + SCREEN TYPE + SCREEN Blood Bank Routine Encounter for fertility testing Expected: 03/09/2023, Expires: 05/09/2023 [facility] Work Phone: Comment on above: Expected: 03/09/2023, Expires: 3 Start: 03-09-2023 End: 05-09-2023 VARICELLA ZOSTER IGG VARICELLA ZOSTER IGG Lab Routine Immunity to varicella determined by serologic test Expected: 03/09/2023, Expires: 05/09/2023 [facility] Work Phone: Comment on above: Expected: 03/09/2023, Expires: 3 Start: 12-02-2022 End: 12-03-2023 FOLLICULAR US WHI FOLLICULAR US WHI Anc Imaging Routine Encounter for fertility testing Expected: 12/02/2022, Expires: 12/03/2023 [facility] Work Phone: Comment on above: Expected: 12/02/2022, Expires: 4 Start: 11-07-2022 End: 11-07-2023 FOLLICULAR US WHI FOLLICULAR US WHI Anc Imaging Routine Female infertility Expected: 11/07/2022, Expires: 11/07/2023 [facility] Work Phone: Comment on above: Expected: 11/07/2022, Expires: 4 Start: 10-27-2022 End: 10-27-2023 FOLLICULAR US WHI FOLLICULAR US WHI Anc Imaging Routine Encounter for fertility planning Expected: 10/27/2022, Expires: 10/27/2023 [facility] Work Phone: Comment on above: Expected: 10/27/2022, Expires: 4 Start: 09-29-2022 End: 11-29-2022 Choriogonadotropin.beta subunit [Units/volume] in Serum or Plasma [facility] Work Phone: Comment on above: Expected: 09/29/2022, Expires: 3 Start: 09-29-2022 End: 11-29-2022 Estradiol (E2) [Mass/volume] in Serum or Plasma [facility] Work Phone: Comment on above: Expected: 09/29/2022, Expires: 3 Start: 09-29-2022 End: 11-29-2022 Progesterone [Mass/volume] in Serum or Plasma [facility] Work Phone: Comment on above: Expected: 09/29/2022, Expires: 3 Start: 09-14-2022 DEPRESSION ASSESSMENT DEPRESSION ASSESSMENT [facility] Start: 05-15-2022 Influenza vaccination [facility] Start: 09-14-2021 DEPRESSION ASSESSMENT DEPRESSION ASSESSMENT [facility] Start: 11-17-2015 HPV TESTING HPV TESTING [facility] Start: 11-17-2015 Screening for malignant neoplasm of cervix HPV Testing [facility] Start: 2006 PAP TESTING PAP TESTING [facility] Start: 2006 Screening for malignant neoplasm of cervix [facility] Start: 2004 DTaP,Tdap and Td Vaccines (1 - Tdap) DTaP,Tdap and Td Vaccines (1 - Tdap) [facility] Start: 2004 Hepatitis B Vaccine (1 of 3 - 19+ 3-dose series) Hepatitis B Vaccine (1 of 3 - 19+ 3-dose series) [facility] Start: 2004 Urine microalbumin profile [facility] Start: 11-17-2003 Adult BMI Follow Up Plan Adult BMI Follow Up Plan [facility] Start: 11-17-2003 Annual PCP Team Chronic Disease Visit Annual PCP Team Chronic Disease Visit [facility] Start: 11-17-2003 Anxiety Screening Anxiety Screening [facility] Start: 11-17-2003 BP Controlled (<130/80) BP Controlled (<130/80) [facility] Start: 11-17-2003 Depression Screening Depression Screening [facility] Start: 11-17-2003 HEPATITIS C SCREENING HEPATITIS C SCREENING [facility] Start: 11-17-2003 Hepatitis C screening Hepatitis C Screening [facility] Start: 11-17-2003 HIV SCREENING HIV SCREENING [facility] Start: 11-17-2003 HIV screening HIV Screening [facility] Start: 1997 Adult depression screening assessment DEPRESSION SCREENING [facility] Start: 1997 COVID-19 VACCINE (1) COVID-19 VACCINE (1) [facility] Start: 11-17-1991 PNEUMOCOCCAL (1 - PCV) PNEUMOCOCCAL (1 - PCV) [facility] Start: 11-17-1991 Pneumococcal vaccination [facility] Start: 05-19-1986 COVID-19 VACCINE (#1) COVID-19 VACCINE (#1) [facility] Start: 1985 HEPATITIS B (1 of 3 - 3-dose series) HEPATITIS B (1 of 3 - 3-dose series) [facility] Start: 1985 Hepatitis B Vaccine (1 of 3 - 3-dose series) Hepatitis B Vaccine (1 of 3 - 3-dose series) [facility] Start: 1985 Tobacco Counseling Tobacco Counseling [facility] ABO/Rh ABO/Rh Lab Routi ne Encounter for supervision of normal first in first trimester Ordered: 10/16/2023 [facility] Work Phone: Comment on above: Ordered: 10/16/2023 Antibody screen Antibody screen Lab Routine Encounter for supervision of normal first in first trimester Ordered: 10/16/2023 [facility] Comment on above: Ordered: 10/16/2023 End: 04-07-2024 Cath & saline/contrast sonohyster/hysterosalpi XR HYSTEROSALPINGOGRAM Radiology Routine Encounter for fertility testing 1 Occurrences starting 03/09/2023 until 04/07/2024 [facility] Work Phone: Comment on above: 1 Occurrences starting 03/09/2023 until 04/07/2024 CBC W Auto Different ial panel - Blood CBC and differential Lab Routine Encounter for supervision of normal first in first trimester Ordered: 10/16/2023 [facility] Comment on above: Ordered: 10/16/2023 Chlamydia trachomatis+Neisseria gonorrhoeae DNA [Presence] in Unspecified specimen by KINDRA with probe detection GONORRHEA/CHLAMYDIA NAAT Lab Routine Exposure to sexually transmitted disease (STD) 01/21/2024 8:48 AM EDT [facility] End: 11-05-2024 Choriogonadotropin.beta subunit [Units/volume] in Serum or Plasma HCG QUANTITATIVE Lab STAT Encounter for test, result positive Daily for 3 Occurrences starting 11/06/2023 until 11/05/2024 [facility] Work Phone: Comment on above: Daily for 3 Occurrences starting 024 until 11/05/2024 End: 12-12-2025 Choriogonadotropin.beta subunit [Units/volume] in Serum or Plasma HCG QUANTITATIVE Lab Routine Encounter for test, result positive 2x per week for 2 Occurrences starting 12/12/2024 until 12/12/2025 [facility] Work Phone: Comment on above: 2x per week for 2 Occurrences starting 0 12/12/2024 until 12/12/2025 Choriogonadotropin.b eta subunit [Units/volume] in Serum or Plasma HCG QUANTITATIVE Lab Routine Encounter for test, result positive 12/12/2024 5:05 PM EDT [facility] End: 09-14-2023 Estradiol (E2) [Mass/volume] in Serum or Plasma ESTRADIOL-17B BLD Lab STAT Encounter for fertility testing 6 Occurrences starting 05/12/2023 until 09/14/2023 [facility] Work Phone: Comment on above: 6 Occurrences starting 05/12/2023 until 09/14/2023 End: 08-17-2024 Estradiol (E2) [Mass/volume] in Serum or Plasma ESTRADIOL-17B BLD Lab STAT Primary female infertility Daily for 5 Occurrences starting 08/18/2023 until 08/17/2024 [facility] Work Phone: Comment on above: Daily for 5 Occurrences starting 023 until 08/17/2024 End: 04-27-2024 Estradiol (E2) [Mass/volume] in Serum or Plasma ESTRADIOL-17B BLD Lab STAT Female infertility 6 Occurrences starting 12/29/2023 until 04/27/2024 [facility] Work Phone: Comment on above: 6 Occurrences starting 12/29/2023 until 04/27/2024 End: 04-13-2024 Estradiol (E2) [Mass/volume] in Serum or Plasma ESTRADIOL-17B BLD Lab STAT Female infertility 6 Occurrences starting 03/09/2024 until 04/13/2024 [facility] Work Phone: Comment on above: 6 Occurrences starting 03/09/2024 until 04/13/2024 End: 07-04-2025 Estradiol (E2) [Mass/volume] in Serum or Plasma ESTRADIOL-17B BLD Lab STAT Female infertility Daily for 4 Occurrences starting 07/04/2024 until 07/04/2025 [facility] Comment on above: Daily for 4 Occurrences starting 024 until 07/04/2025 End: 08-08-2025 Estradiol (E2) [Mass/volume] in Serum or Plasma ESTRADIOL-17B BLD Lab STAT Female infertility Daily for 4 Occurrences starting 08/08/2024 until 08/08/2025 [facility] Comment on above: Daily for 4 Occurrences starting 024 until 08/08/2025 End: 09-09-2025 Estradiol (E2) [Mass/volume] in Serum or Plasma ESTRADIOL-17B BLD Lab STAT Female infertility Daily for 6 Occurrences starting 09/09/2024 until 09/09/2025 [facility] Comment on above: Daily for 6 Occurrences starting 024 until 09/09/2025 End: 10-19-2025 Estradiol (E2) [Mass/volume] in Serum or Plasma ESTRADIOL-17B BLD Lab STAT Female infertility Daily for 3 Occurrences starting 10/19/2024 until 10/19/2025 [facility] Work Phone: Comment on above: Daily for 3 Occurrences starting 025 until 10/19/2025 End: 11-11-2025 Estradiol (E2) [Mass/volume] in Serum or Plasma ESTRADIOL-17B BLD Lab STAT Encounter for fertility testing Daily for 6 Occurrences starting 11/14/2024 until 11/11/2025 [facility] Work Phone: Comment on above: Daily for 6 Occurrences starting 025 until 11/11/2025 End: 09-08-2023 FOLLICULAR US WHI FOLLICULAR US WHI Anc Imaging Routine Encounter for fertility testing Daily for 6 Occurrences starting 05/12/2023 until 09/08/2023 [facility] Work Phone: Comment on above: Daily for 6 Occurrences starting 023 until 09/08/2023 End: 10-08-2023 FOLLICULAR US WHI FOLLICULAR US WHI Anc Imaging Routine Female infertility Daily for 6 Occurrences starting 08/18/2023 until 10/08/2023 [facility] Work Phone: Comment on above: Daily for 6 Occurrences starting 023 until 10/08/2023 End: 04-27-2024 FOLLICULAR US WHI FOLLICULAR US WHI Anc Imaging Routine Female infertility 6 Occurrences starting 12/29/2023 until 04/27/2024 [facility] Work Phone: Comment on above: 6 Occurrences starting 12/29/2023 until 04/27/2024 End: 05-27-2024 FOLLICULAR US WHI FOLLICULAR US WHI Anc Imaging Routine Female infertility 6 Occurrences starting 03/09/2024 until 05/27/2024 [facility] Comment on above: 6 Occurrences starting 03/09/2024 until 05/27/2024 End: 07-04-2025 FOLLICULAR US WHI FOLLICULAR US WHI Anc Imaging Routine Female infertility Daily for 4 Occurrences starting 07/04/2024 until 07/04/2025 [facility] Work Phone: Comment on above: Daily for 4 Occurrences starting 024 until 07/04/2025 End: 03-08-2025 FOLLICULAR US WHI FOLLICULAR US WHI Anc Imaging Routine Female infertility Daily for 4 Occurrences starting 08/08/2024 until 03/08/2025 [facility] Work Phone: Comment on above: Daily for 4 Occurrences starting until 03/08/2025 End: 11-14-2024 FOLLICULAR US WHI FOLLICULAR US WHI Anc Imaging Routine Female infertility Daily for 6 Occurrences starting 09/09/2024 until 11/14/2024 [facility] Comment on above: Daily for 6 Occurrences starting 024 until 11/14/2024 End: 02-14-2025 FOLLICULAR US WHI FOLLICULAR US WHI Anc Imaging Routine Encounter for fertility testing Daily for 6 Occurrences starting 11/14/2024 until 02/14/2025, 1 completed [facility] Comment on above: Daily for 6 Occurrences starting 025 until 02/14/2025, 1 completed Hepatitis B virus surface Ag [Presence] in Serum or Plasma by Immunoassay Hepatitis B surface antigen Lab Routine Encounter for supervision of normal first in first trimester Ordered: 10/16/2023 [facility] Comment on above: Ordered: 10/16/2023 HIV-1/HIV-2 antigen/antibody combination immunoassay HIV-1 and HIV-2 antibodies Lab Routine Encounter for supervision of normal first in first trimester Ordered: 10/16/2023 [facility] Comment on above: Ordered: 10/16/2023 End: 09-09-2025 Lutropin [Units/volume] in Serum or Plasma LUTEINIZING HORMONE Lab STAT Female infertility Daily for 6 Occurrences starting 09/09/2024 until 09/09/2025 [facility] Comment on above: Daily for 6 Occurrences starting 024 until 09/09/2025 OFFICE HYSTEROSCOPY OFFICE HYSTE ROSCOPY Procedures Routine Encounter for fertility testing Ordered: 05/05/2024 [facility] Work Phone: Comment on above: Ordered: 05/05/2024 PAP TEST PAP TEST Lab Shravan ford Encounter for Papanicolaou smear for cervical cancer screening 01/21/2024 8:44 AM EDT [facility] Work Phone: Patient Education Asymptomatic b acteriuria Urinary tract infections in [facility] Work Phone: Patient referral [facility] Work Phone: End: 09-09-2025 Progesterone [Mass/volume] in Serum or Plasma PROGESTERONE Lab STAT Female infertility Daily for 6 Occurrences starting 09/09/2024 until 09/09/2025 [facility] Work Phone: Comment on above: Daily for 6 Occurrences starting 024 until 09/09/2025 End: 12-25-2022 PROGESTERONE BLD PROGESTERONE BLD Lab Routine Problems with ovulation Once per month for 12 Occurrences starting 12/25/2021 until 12/25/2022 [facility] Work Phone: Comment on above: Once per month for 12 Occurrences starti ng 12/25/2021 until 12/25/2022 Reagin Ab [Presence] in Serum by RPR RPR Lab Routine Encounter for supervision of normal first in first trimester Ordered: 10/16/2023 [facility] Comment on above: Ordered: 10/16/2023 Rubella antibody, IgG Rubella an tibody, IgG Lab Routine Encounter for supervision of normal first in first trimester Ordered: 10/16/2023 [facility] Comment on above: Ordered: 10/16/2023 SURGICAL PATHOLOGY SURGICAL PATH OLOGY Lab Routine Endometrial polyp 05/13/2024 12:26 PM EDT [facility] Work Phone: [facility] Immunizations Immunization Date Immunization Notes Care Provider Fa cility 06-02-2020 influenza, injectabl e, quadrivalent, preservative free Eugenia Cerda [facility] 06-02-2020 influenza virus vacc ine, unspecified formulation Arley Parikh MD Work Phone: [facility] 05-29-2020 influenza, injectabl e, quadrivalent, preservative free Eugenia Cerda [facility] 07-27-2018 influenza, injectabl e, quadrivalent, preservative free Eugenia Cerda [facility] 07-24-2009 novel Influenza-H1N1 -09, live virus for nasal administration Eugenia Cerda [facility] Payers Date Payer Category Payer Self-pay [id number] 2019 Commercial Managed C are - [employer] [id number] 2019 Private Health Insurance 1.2 [id number] 2019 Unknown MMO MMO [employer] [id number] 2019-Present [phone] [address] [place] [address] PPO [id number] 2019 Unknown [id number] 1985 Unknown [id number] [id number] .593 1985 Unknown [id number] [id number] .593 1985 Unknown [id number] [id number] .593 1985 Unknown [id number] [id number] .593 1985 Unknown [id number] [id number] .593 1985 Unknown [id number] [id number] .1286 1985 Unknown [id number] [id number] .128 1985 Unknown [id number] [id number] .1286 1985 Unknown [id number] [id number] .128 1985 Unknown [id number] [id number] .1286 1985 Unknown [id number] [id number] .1286 1985 Unknown [id number] [id number] .1286 1985 Unknown [id number] [id number] .1286 1985 Unknown [id number] [id number] .1286 1985 Unknown [id number] [id number] .1259 1959 Unknown [id number] Unknown [id number] .531 Worker's Compensation [id number] Social History Date Type Detail Facility Start: 10-15-2020 End: 03-09-2023 Tobacco smoking status [facility] Occasional tobacco smoker [facility] End: 09-28-2023 History of tobacco use Cigarette Smoker [facility] Start: 10-15-2020 End: 08-14-2024 Cigarettes smoked current (pack per day) - Reported 1 [facility] Start: 10-15-2020 End: 10-16-2023 Tobacco use and exposure Smokeless tobacco non-user [facility] Start: 10-15-2020 End: 10-05-2023 Alcohol intake Lifetime non-drinker (finding) [facility] Start: 10-15-2020 History SDOH Alcohol Frequency 1 [facility] Start: 1985 Sex Assigned At Female [facility] Start: 10-15-2020 End: 08-14-2024 Alcohol Use Disorder Identification Test - Consumption [AUDIT-C] [facility] How often to you hav e a drink containing alcohol? Never [facility] Average Number of Drinks Not on file [facility] Start: 06-12-2021 Gender identity Identifies as female gender (finding) [facility] Start: 06-12-2021 Sexual orientation Heterosexual (finding) [facility] Start: 10-16-2023 End: 11-25-2024 Tobacco smoking status [facility] Ex-smoker [facility] End: 09-28-2023 History of tobacco use Current smoker [facility] Start: 10-16-2023 End: 01-10-2025 Alcohol intake Ex-drinker (finding) [facility] Start: 10-16-2023 Alcohol Comment Caffeine intake: 8-12oz coffee/day [facility] Start: 08-30-2023 [facility] Start: 1985 Sex Assigned At Not on file [facility] Start: 10-07-2024 End: 12-06-2024 Alcoholic beverage intake Current non-drinker of alcohol (finding) [facility] Start: 04-19-2015 End: 01-25-2025 Sex Female (finding) [facility] Start: 05-02-2022 Tobacco smoking status [facility] Smokes tobacco daily [facility] Goals Date Patient Goal Desired Activity /State Personal health goal Clinical Notes 12-25-2021 to 01-16-2025 Telephone Encounter - Geni Pena - 01/16/2025 2:26 PM EDTTelephone Encounter - Geniyannick Rose - 01/16/2025 2:26 PM EDSushila De Santiago APRN.[facility] - 01/09/2025 3:43 PM EDT Note Date & Type Note Facility 01-16-2025 Telephone encounter Note Hi there. My name is Aleida Red. Now I am just calling because I did see that my blood results came in and it looks like my HCG levels went down. So I just wanted to talk about what our next steps so that if we need to get something scheduled we can get it scheduled, I can be called back At [phone] am currently available until about 230 and then I have a meeting then until about 330. So I look forward to hearing back if you can again my numbers [phone]. Thanks and have a good day. [facility] 01-16-2025 Miscellaneous Notes Hi there. My name is Aleida Red. Now I am just calling because I did see that my blood results came in and it looks like my HCG levels went down. So I just wanted to talk about what our next steps so that if we need to get something scheduled we can get it scheduled, I can be called back At [phone] am currently available until about 230 and then I have a meeting then until about 330. So I look forward to hearing back if you can again my numbers [phone]. Thanks and have a good day. documented in this encounter [facility] 01-09-2025 Note HNO ID: [id number] Author: SUSHILA LEVY APRN.ADELE Service: ? Author Type: Nurse Practitioner Type: Progress Notes Filed: 01/09/2025 16:05 Note Text: Spoke with Aleida, Reviewed diagnosis of missed from today's ultrasound. Discussed options for medical, surgical or expectant management. Leaning towards medical management but wants to further review with her prior to making final decisions. Is meeting with her MECHANICAL ENGINEERING DRAFTSPERSON tomorrow, may follow up with care from that office as well. Will call back and let us know how she wishes to proceed. Sushila Levy APRN.CNP January 09, 2025 4:05 PM [facility] 01-09-2025 History of Presen t illness Narrative Spoke with Aleida, Reviewed diagnosis of missed from today's ultrasound. Discussed options for medical, surgical or expectant management. Leaning towards medical management but wants to further review with her prior to making final decisions. Is meeting with her MECHANICAL ENGINEERING DRAFTSPERSON tomorrow, may follow up with care from that office as well. Will call back and let us know how she wishes to proceed. Sushila Levy APRN.CNP January 09, 2025 4:05 PM documented in this encounter [facility] 12-30-2024 Note HNO ID: [id number] Author: HEENA ORR APRN.CNP Service: ? Author Type: Nurse Practitioner Type: Progress Notes Filed: 12/30/2024 17:37 Note Text: spoke with Aleida Please schedule the patient for the following- Location: [place] Provider: nurse Visit type: scan Reason for visit/appointment notes: scan Date: 01/09 Time (requested): 1040 If slot is full, please schedule the closest open slot. Call to patient needed: no [facility] 12-30-2024 History of Presen t illness Narrative spoke with Aleida Please schedule the patient for the following- Location: [place] Provider: nurse Visit type: scan Reason for [...] 2024 1:32 PM documented in this encounter [facility] 12-30-2024 Note HNO ID: [id number] Author: MICHEL JOSEPH MD Service: ? Author [...] Joseph MD December 30, 2024 1:32 PM [facility] 12-16-2024 Note HNO ID: [id number] Author: KOBI WEINER PA-C Service: ? Author Type: Physician Sheriff Detective Type: Progress Notes Filed: 12/16/2024 14:20 Note Text: REPRODUCTIVE ENDOCRINOLOGY AND INFERTILITY New SERVICE DATE: 12/16/2024 SERVICE TIME: 2:00 PM NAME: Aleida Arizmendi VIRTUAL VISIT PROGRESS NOTE This is a virtual visit. It required patient-provider interaction for the medical decision making as documented below. Patient name and birthday verified: Yes Location of patient: [place] Persons Present: patient I have communicated my name and active licensure. The patient's identity and physical location were verified at the time of this visit. Either the patient or their legal pharmaceutical representative has been informed of the risks and [...] grammatical and typographical errors missed in proofreading. [facility] 12-16-2024 History of Presen t illness Narrative Images from the original note were not included. REPRODUCTIVE ENDOCRINOLOGY AND INFERTILITY New SERVICE DATE: 12/16/2024 SERVICE TIME: 2:00 PM NAME: Aleida Arizmendi VIRTUAL VISIT PROGRESS NOTE This is a virtual visit. It required patient-provider interaction for the medical decision making as documented below. Patient name and birthday verified: Yes Location of patient: [place] Persons Present: patient I have communicated my name and active licensure. The patient's identity and physical location were verified at the time of this visit. Either the patient or their legal pharmaceutical representative has been informed of the risks and [...] missed in proofreading. documented in this encounter [facility] 12-12-2024 Telephone encounter Note Patient called back in still trying to get blood work scheduled she is very frustrated that she isn't getting a call back. [facility] 12-12-2024 Miscellaneous Notes Patient called back [...] two times a day. Follitropin Ila ([facility] REDI-JECT) 300/0.5 unit/mL pnij Inject 75 Units [...] Routing to MAN team for next steps. Amarilis Dorman RN December 12, 2024 9:38 AM Please follow up with patient she would like to get bloodwork done. documented in this encounter [facility] 12-12-2024 Telephone encounter Note See other TE for 12/09 Amarilis Dorman RN December 12, 2024 9:41 AM [facility] 12-12-2024 Miscellaneous Notes See other TE for 12/09 Amarilis Dorman RN December 12, 2024 9:41 AM Patient calling back with +hpt everyday since , please call patient. So Pt and wants a call back please documented in this encounter [facility] 12-12-2024 Telephone encounter Note Patient with [...] Routing to MAN team for next steps. Amarilis Dorman RN December 12, 2024 9:38 AM [facility] 12-12-2024 Telephone encounter Note Patient calling back with +hpt everyday since , please call patient. [facility] Work Phone: 12-09-2024 Telephone encounter Note So Pt and wants a call back please [facility] 12-09-2024 Telephone encounter Note Please follow up with patient she would like to get bloodwork done. [facility] Work Phone: 12-06-2024 History of Presen t illness Narrative Images from the original note were not included. Subjective Aleida Arizmendi is a 39 y.o. female status [...] chronic inflammation and granulation tissue, abdomen. Assessment Aleida Arizmendi is a 39 y.o.female postoperative excision of inclusion cyst. Plan Follow up p.r.n.. Inclusion cyst [L72.0] LYUDMILA PADGETT [facility] General Surgery Ranger/[place]oyall This note was created with the assistance of a speech recognition program. While intending to generate a timely document that accurately reflects the content of the visit, no guarantee can be provided that every grammatical or spelling mistake has been or will be identified or corrected. Thank you for your understanding. LYUDMILA Padgett 12/06/24 1015 documented in this encounter [facility] 11-25-2024 Evaluation note Diagnosis Onset Date Resolution Visit for wound check acute November 25, 2024 4:52pm [facility] Work Phone: [phone] Miscellaneous Notes* Telephone Encounter - Idalmis Arias RN - 11/25/2024 2:53 PM EDT Return call. Patient wanted clarification on what day to start progesterone suppositories. Patient will start them 11/28 at bedtime. Idalmis Arias RN November 25, 2024 2:53 PM * Telephone Encounter - Ana Sotomayor - 11/25/2024 2:24 PM EDT Pt has a questions about her progesterone shots [facility] Telephone encounter Note * Telephone Encounter - Idalmis Arias RN - 11/25/2024 2:53 PM EDT Return call. Patient wanted clarification on what day to start progesterone suppositories. Patient will start them 11/28 at bedtime. Idalmis Arias RN November 25, 2024 2:53 PM [facility]03-14-2025 Telephone encounter Note* Telephone Encounter - Ana Sotomayor - 11/25/2024 2:24 PM EDT Pt has a questions about her progesterone shots [facility]03-14-2025 NoteHNO ID: [id number] Author: NILTON ZHANG RN Service: ? Author Type: Registered Nurse Type: Progress Notes Filed: 11/25/2024 13:18 Note Text: RN called patient,no answer, left VM. Plan given for trigger and TI cycle per physician,via Xoft message sent with instructions. Nilton Zhang RN November 25, 2024 1:16 [facility]03-14-2025 History of Present illness Narrative* Nilton Zhang RN - 11/25/2024 1:16 PM EDT RN called patient,no answer, left VM. Plan given for trigger and TI cycle per physician,via Spotplexessage sent with instructions. Nilton Zhang RN November 25, 2024 1:16 PM * Nilton Zhang RN - 11/25/2024 9:25 AM EDT The patient is here today for follicular ultrasound and blood work. The patient reports no problemsor complaints. Ultrasound and blood will be reviewed by the physician, the flow sheet will be updated and instructions will be communicated to the patient. Nilton Zhang RN November 25, 2024 9:25 AM [facility]25 NoteHNO ID: [id number] Author: NILTON ZHANG RN Service: ? Author [...] Nilton Zhang RN November 25, 2024 9:25 [facility]03-13-2025 History of Present illness Narrative* Jazmine Gonzalez MD - 11/24/2024 11:33 AM EDT LOUISA Attending Physician Note: Ultrasound and lab results reviewed. Based on review of ultrasound and lab results, medication doseand follow up date plans provided. See cycle flowsheet for dosing details. Jazmine Gonzalez MD, CRWO * Mary Ann Kirkland RN - 11/24/2024 7:[address] Joseph, yes, that's fine. 200mg oral or vaginal prometrium given 3 days after trigger The patient is here today for follicular ultrasound and blood work. The patient reports no problemsor complaints. Ultrasound and blood will be reviewed by the physician, the flow sheet will be updated and instructions will be communicated to the patient. Mary Ann Kirkland RN RN called patient, name and verified. Plan given for SO cycle per physician, see flowsheet for details. MyChart message sent. Medications reviewed and verified, instructions given. Patient deniesany questions or concerns. Message sent to scheduling pool for next appt. Location: [place] Visit type: Baseline SO us/e2 Date: 11/25 @ 0700 LAUREN Haque RN November 24, 2024 12:39 PM [facility]25 NoteHNO ID: [id number] Author: JAZMINE GONZALEZ MD Service: ? Author Type: Physician Type: Progress Notes Filed: 11/24/2024 11:34 Note Text: LOUISA Attending Physician Note: Ultrasound and lab results reviewed. Based on review of ultrasound and lab results, medication dose and follow up date plans provided. See cycle flowsheet for dosing details. Jazmine Gonzalez MD, [facility]03-13-2025 NoteHNO ID: [id number] Author: MARY ANN KIRKLAND RN Service: ? [...] instructions will be communicated to the patient. Mar yAnn Kirkland RN RN called patient, name and verified. Plan given for SO cycle per physician, see flowsheet for details. Spot [employer] message sent. Medications reviewed and verified, instructions given. Patient denies any questions or concerns. Message sent to scheduling pool for next appt. Location: [place] Visit type: Baseline SO us/e2 Date: 11/25 @ 0700 LAUREN Haque RN November 24, 2024 12:39 [facility]03-11-2025 History of Present illness Narrative* Millie Ellis MD - 11/22/2024 8:30 AM EDT Images from the original note were not included. Chief Complaint: Epidermoid cyst History of Present Illness: Aleida Arizmendi is a 39 y.o. female who presents to the office with epidermoid cyst on her leftinferior pannus. It was been present for 6-8 weeks. It was painful to touch. Notes redness. She wasplaced on antibiotics by her primary care. Denies [...] Date Chronic kidney disease Hx of lithotripsy 2013 Kidney stones Moderate obstructive sleep apnea 08/30/2020 AHI 20/11 min O2 78% NIKO (obstructive sleep apnea) 01/2022 ON CPAP PCOS (polycystic ovarian syndrome) Past Surgical History: Procedure Laterality Date CHOLECYSTECTOMY LITHOTRIPSY 2013 Allergies Allergen Reactions Amoxil [Amoxicillin] Penicillins [...] INJECT 200 IU SUBCUTANEOUSLY ONCE DAILY DIRECTED, Disp:, Rfl: letrozole (FEMARA) 2.5 mg chemo tablet, [...] subcuticular 4-0 Monocryl. Steri-Strips were applied. Assessment: Aleida Arizmendi is a 39 y.o.female with epidermoid cyst, 1.5 cm, history of inflammation Inclusion cyst [L72.0] Plan: Excision performed in the office today. Follow up pathology Evaluation included: Preparing to see the patient (e.g., review of tests) Obtaining and/or reviewing separately obtained history Performing a medically appropriate examination and/or evaluation Counseling and educating the patient/family/caregiver Referring and communicating with other health animal care provider Millie Ellis MD [facility] General Surgery Ranger/[place] documented in this encounterAdams County Regional Medical CenterNMotive Research [facility] [id number] NoteHNO ID: [id number] Author: MARY ANN KIRKLAND RN Service: ? [...] hasn't tried that yet. Message sent to [facility]. Mary Ann Kirkland RN RN called patient, [...] Ann Kirkland RN November 21, 2024 2:24 [facility]03-10-2025 History of Present illness Narrative* Mary Ann Kirkland RN - 11/21/2024 10:51 AM EDT The patient is here today for follicular ultrasound and blood work. The patient reports no problemsor complaints. Ultrasound and blood will be reviewed by the physician, the flow sheet will be updated and instructions will be communicated to the patient. Pt questioning if she should take progesterone this cycle, since she hasn't tried that yet. Messagesent to EGR. Mary Ann Kirkland RN RN called patient, name and verified. Plan given for SO cycle per physician, see flowsheet for details. MyChart message sent. Medications reviewed and verified, instructions given. Patient deniesany questions or concerns. Message sent to scheduling pool for next appt. Location: [place] Visit type: Monitoring, SO us/e2 Date: 11/24 @ 0740 am Mary Ann Kirkland RN November 21, 2024 2:24 PM [facility] Telephone encounter Note * Telephone Encounter - Mary Ann Kirkladn RN - 11/14/2024 3:21 PM EST Automatic PA started when medication ordered. PA closed: : Drug is covered by current benefit plan. No further PA activity needed Pt called stating she needs a PA. Called [facility] to discuss the PA message I received. [facility] PA is needed. Started cover my meds. Ayala: [id number] Drug is covered by current benefit plan. [...] Kirkland RN November 15, 2024 3:06 PM [facility]03-03-2025 Miscellaneous Notes* Telephone Encounter - Mary Ann Kirkland RN - 11/14/2024 3:21 PM EST Automatic PA started when medication ordered. PA closed: : Drug is covered by current benefit plan. No further PA activity needed Pt called stating she needs a PA. Called [facility] to discuss the PA message I received. Still showing on [facility]'s end that a PA is needed. Started cover my meds. Ayala: [id number] Drug is covered by current benefit plan. [...] Kirkland RN November 15, 2024 3:06 PM * Telephone Encounter - Ana Sotomayor - 11/14/2024 2:54 PM EST Pt states her letrozole needs a pa and needs the medication by today [facility] Telephone encounter Note * Telephone Encounter - Ana Sotomayor - 11/14/2024 2:54 PM EST Pt states her letrozole needs a pa and needs the medication by today [facility]03-03-2025 NoteHNO ID: [id number] Author: MARY ANN KIRKLAND RN Service: ? Author Type: Registered Nurse Type: Progress Notes Filed: 11/14/2024 14:01 Note Text: Aleida Arizmendi was here today for a baseline scan. Location: [place] Visit type: monitoring OI, us/e2 Date: 11/21 @ 0820 Plan: 11/14/2024 CD4 letrozole 10 dex 0.5mg [...] cycle per physician, see flowsheet for details. [employer] message sent. Medications reviewed and verified, instructions given. Patient denies any questions or concerns. Message sent to scheduling pool for next appt. Mary Ann Kirkland RN November 14, 2024 2:00 [facility]03-03-2025 History of Present illness Narrative* Mary Ann Kirkland RN - 11/14/2024 1:50 PM EST Aleida Michaelhal was here today for a baseline scan. Location: [place] Visit type: monitoring OI, us/e2 Date: 11/21 @ 0820 Plan: 11/14/2024 CD4 letrozole 10 dex 0.5mg [...] for IVF cycle per physician, see flowsheet fordetails. Spot [employer] message sent. Medications reviewed and verified, instructions given. Patient denies any questions or concerns. Message sent to scheduling pool for next appt. Mary Ann Kirkland RN November 14, 2024 2:00 PM documented in [facility] encounter[facility]03-[facility] Telephone encounter Note * Telephone Encounter - Leonel Cabezas APRN.CNP - 11/14/2024 7:27 AM EST The following approved medication requests have been transmitted electronically. Requested Prescriptions Signed Prescriptions Disp Refills chorionic gonadotropin (PREGNYL) 10,000 unit solr 1 Each 1 Si,000 Units once daily. 10,000 Units as directed. Inject 10,000 units for HCG trigger Authorizing Provider: LEONEL CABEZAS letrozole (FEMARA) 2.5 mg tablet 20 tablet 5 Sig: Take 4 tablets by mouth once daily. Authorizing Provider: LEONEL CABEZAS APRN.CNP [facility]03-03-2025 Miscellaneous Notes* Telephone Encounter - Leonel Cabezas APRN.CNP - 11/14/2024 7:27 AM EST The following approved medication requests have been transmitted electronically. Requested Prescriptions Signed Prescriptions Disp Refills chorionic gonadotropin (PREGNYL) 10,000 unit solr 1 Each 1 Si,000 Units once daily. 10,000 Units as directed. Inject 10,000 units for HCG trigger Authorizing Provider: LEONEL CABEZAS letrozole (FEMARA) 2.5 mg tablet 20 tablet 5 Sig: Take 4 tablets by mouth once daily. Authorizing Provider: LEONEL CABEZAS APRN.CNP * Telephone Encounter - Nilton Zhang RN - 11/11/2024 8:28 AM EST Returned call to patient. Scheduled for baseline for 11/14/24 @ 0740 at [place]. Pt. States she needs refill on letrozole and trigger shot. Medication orders pended. Nilton Zhang RN November 11, 2024 8:32 AM * Telephone Encounter - Sushila Barbour - 11/11/2024 8:05 AM EST Super ov Patient started period- calling to schedule baseline documented [facility] encounter[facility] Telephone encounter Note * Telephone Encounter - Nilton Zhang RN - 11/11/2024 8:28 AM EST Returned call to patient. Scheduled for baseline for 11/14/24 @ 0740 at [place]. Pt. States she needs refill on letrozole and trigger shot. Medication orders pended. Nilton Zhang RN November 11, 2024 8:32 AM [facility]02-28-2025 Telephone encounter Note* Telephone Encounter - Sushila Barbour - 11/11/2024 8:05 AM EST Super ov Patient started period- calling to schedule baseline [facility]02-25-2025 History of Present illness Narrative* David Mckeon MD - 11/08/2024 8:00 AM EST Images from the original note were not included. [address] [facility] [id number] Subjective: Aleida Arizmendi is a 38 y.o. female who [...] oriented to person, place, and time. Assessment/Plan: Aleida was seen today for annual exam. Diagnoses and all orders for this visit: Routine general medical examination at a health care facility - CBC auto differential; Future - Comprehensive metabolic panel; Future - Lipid profile; Future - Thyroid profile includes TSH FT4; Future Inclusion cyst - [facility] [place], [place]; Future PCOS (polycystic ovarian syndrome) Other [...] and general surgery referral [facility]25 NoteHNO ID: [id number] Author: MICHEL JOSEPH MD Service: ? Author [...] this plan back to Dr Parikh. Michel Joseph, [facility]02-09-2025 NoteHNO ID: [id number] Author: IVY GARDNER RN Service: ? Author [...] with patient and sent to my chart. Iyv Gardner RN October 23, 2024 11:51 [facility]02-09-2025 History of Present illness Narrative* Ivy Gardner RN - 10/23/2024 8:32 AM EST The patient is here today for follicular ultrasound and blood work. The patient reports no problemsor complaints. Ultrasound and blood will be reviewed by the physician, the flow sheet will be updated and instructions will be communicated to the patient. Ivy Gardner RN Plan review with patient and sent to my chart. Ivy Gardner RN October 23, 2024 11:51 AM documented in this encounterHol[facility] Hospital02-07-2025 NoteHNO ID: [id number] Author: IDALMIS ARIAS RN Service: ? Author Type: Registered Nurse Type: Progress Notes Filed: 10/21/2024 12:55 Note Text: The patient is here today for follicular ultrasound and blood work. The patient reports no problems or complaints. Ultrasound and blood will be reviewed by the physician, the flow sheet will be updated and instructions will be communicated to the patient. Idalmis Arias RN RN called patient, name and verified. Plan given for IVF cycle per physician, see flowsheet for details. MyChart message sent. Medications reviewed and verified, instructions given. Patient denies any questions or concerns. Message sent to scheduling pool for next appt. Idalmis Arias RN October 21, 2024 12:55 [facility]02-07-2025 History of Present illness Narrative* Idalmis Arias RN - 10/21/2024 8:54 AM EST The patient is here today for follicular ultrasound and blood work. The patient reports no problemsor complaints. Ultrasound and blood will be reviewed by the physician, the flow sheet will be updated and instructions will be communicated to the patient. Idalmis Arias RN RN called patient, name and verified. Plan given for IVF cycle per physician, see flowsheet fordetails. MyChart message sent. Medications reviewed and verified, instructions given. Patient denies any questions or concerns. Message sent to scheduling pool for next appt. Idalmis Arias RN October 21, 2024 12:55 PM documented in this encounterHolzer Hospital02-05-2025 NoteHNO ID: [id number] Author: IDALMIS ARIAS RN Service: ? Author Type: Registered Nurse Type: Progress Notes Filed: 10/19/2024 13:31 Note Text: The patient is here today for follicular ultrasound and blood work. The patient reports no problems or complaints. Ultrasound and blood will be reviewed by the physician, the flow sheet will be updated and instructions will be communicated to the patient. Idalmis Arias RN RN called patient, name and verified. Plan given for IVF cycle per physician, see flowsheet for details. MyChart message sent. Medications reviewed and verified, instructions given. Patient denies any questions or concerns. Message sent to scheduling pool for next appt. Idalmis Arias RN October 19, 2024 1:27 [facility]02-05-2025 History of Present illness Narrative* Idalmis Arias RN - 10/19/2024 7:45 AM EST The patient is here today for follicular ultrasound and blood work. The patient reports no problemsor complaints. Ultrasound and blood will be reviewed by the physician, the flow sheet will be updated and instructions will be communicated to the patient. Idalmis Arias RN RN called patient, name and verified. Plan given for IVF cycle per physician, see flowsheet fordetails. MyChart message sent. Medications reviewed and verified, instructions given. Patient denies any questions or concerns. Message sent to scheduling pool for next appt. Idalmis Arias RN October 19, 2024 1:27 PM documented in this encounterHolzer Hospital01-29-2025 NoteHNO ID: [id number] Author: MARY ANN KIRKLAND RN Service: ? [...] Ann Kirkland RN October 12, 2024 2:36 [facility] History of Present illness Narrative* Mary Ann Kirkland RN - 10/12/2024 2:34 PM EST The patient is here today for follicular ultrasound and blood work. The patient reports no problemsor complaints. Ultrasound and blood will be reviewed by the physician, the flow sheet will be updated and instructions will be communicated to the patient. Mary Ann Kirkland RN RN called patient, name and verified. Plan given for IVF cycle per physician, see flowsheet fordetails. Spot formerly [employer] message sent. Medications reviewed and verified, instructions given. Patient denies any questions or concerns. Message sent to scheduling pool for next appt. Mary Ann Kirkland RN October 12, 2024 2:36 PM documented in this encounterHolzer Hospital01-27-2025 Telephone encounter Note * Telephone Encounter - Mary Ann Kirkland RN - 10/10/2024 3:45 PM EST Returned patient. Today is cycle day 2. Needs to baseline for SO. Episode for SO #10 created. Per EGR 09/21/24 For SO, same protocol as the last cycle (SO#9) Location: [place] Visit type: Baseline, SO us/e2 Date: 10/12 @ 0720 Mary Ann Kirkland RN October 10, 2024 3:50 PM [facility]01-27-2025 Miscellaneous Notes* Telephone Encounter - Mary Ann Kirkland RN - 10/10/2024 3:45 PM EST Returned patient. Today is cycle day 2. Needs to baseline for SO. Episode for SO #10 created. Per EGR 09/21/24 For SO, same protocol as the last cycle (SO#9) Location: [place] Visit type: Baseline, SO us/e2 Date: 10/12 @ 0720 Mary Ann iKrkland RN October 10, 2024 3:50 PM * Telephone Encounter - Greer Horton - 10/10/2024 12:37 PM EST Needs to schedule so us documented [facility]Hol[facility] Telephone encounter Note * Telephone Encounter - Greer Horton - 10/10/2024 12:37 PM EST Needs to schedule so us [facility]01-24-2025 History of Present illness Narrative* David Mckeon MD - 10/07/2024 10:30 AM EST Images from the original note were not included. [address] [facility] [id number] SUBJECTIVE: Patient ID: Aleida Arizmendi is a 38 y.o. female. 38 yo WF with 3 days of low back pain after moving - tried ice , biofreeze, tylenol and lidocaine, happens rarely, midline no sciatica The following portions of the patient's history were reviewed and updated as appropriate: allergies, current medications, past family history, past medical history, past social history, past surgicalhistory and problem list. REVIEW OF SYSTEMS: Review [...] Psychiatric: Mood and Affect: Mood normal. ASSESSMENT/PLAN: Aleida was seen today for back pain. Diagnoses [...] days. 6 tabs qd x 3 d then1 less each day with food Follow-up: Discussed and advised continue current treatment and add prednisone and xanaflex (if not ) [facility] Progress note* Michel Joseph MD - 09/21/2024 1:32 PM EST [facility] Date: 09/21/2024 Aleida Arizmendi is a 38 year old female presenting with the following history: HISTORY OF PRESENT ILLNESS: Aleida Arizmendi is a 38 year old female [...] 1 mg-35 mcg (ZOVIA 35E, 28,) 1-35 mg- mcg per tablet Start day 1 of full [...] two times a day. Follitropin Ila (GONAL-F F REDI-JECT) 300/0.5 unit/mL [...] this visit. Either the patient or their legalrepresentative has been informed of the risks and benefits of -- and alternatives to -- treatment through a remote evaluation and consents to proceed with the evaluation remotely. I spent a total of 30 minutes on the date of the service which included preparing to see the patient, fvny-fh-rhmf patient care, completing clinical documentation, counseling and educating the patient/family/caregiver, and ordering medications, tests, or procedures. Michel Jsoeph MD [facility]01-08-2025 Consult note* Michel Joseph MD - 09/21/2024 1:32 PM EST [facility] Date: 09/21/2024 Aleida Arizmendi is a 38 year old female presenting with the following history: HISTORY OF PRESENT ILLNESS: Aleida Arizmendi is a 38 year old female [...] 1 mg-35 mcg (ZOVIA 35E, 28,) 1-35 mg- mcg per tablet Start day 1 of full [...] this visit. Either the patient or their legalrepresentative has been informed of the risks and benefits of -- and alternatives to -- treatment through a remote evaluation and consents to proceed with the evaluation remotely. I spent a total of 30 minutes on the date of the service which included preparing to see the patient, [id number] patient care, completing clinical documentation, counseling and educating the patient/family/caregiver, and ordering medications, tests, or procedures. Michel Joseph MD documented in this encounterHolzer Hospital01-08-2025 Plan of care note* LOUISA Plan Note - Carolina Ramirez MD - 09/21/2024 1:26 PM EST Trigger shot 09/20 with plan for timed [...] partner had another semen analysis done at [facility] in 2015 in addition to another one here in 2022. She reports they were normal, however she is uncertain whether she has access to these records and she will try to obtain them. [facility] Work Phone: 1(108) 251-418401-08-2025 Miscellaneous Notes* LOUISA Plan Note - Carolina Ramirez MD - 09/21/2024 1:26 PM EST Trigger shot 09/20 with plan for timed [...] partner had another semen analysis done at [facility] in 2015 in addition to another one here in 2022. She reports they were normal, however she is uncertain whether she has access to these records and she will try to obtain them. documented in this encounterHolzer Hospital01-07-2025 NoteHNO ID: [id number] Author: MICHEL JOSEPH MD Service: ? Author [...] Michel Joseph MD September 20, 2024 12:59 [facility]01-07-2025 History of Present illness Narrative* Michel Joseph MD - 09/20/2024 12:52 PM EST I called and spoke to the patient. [...] Joseph MD September 20, 2024 12:59 PM * Zhen Sears MD - 09/20/2024 12:35 PM EST Follicular Ultrasound Monitoring Visit Patient here for follicle monitoring and/or endometrial assessment, via ultrasound, and lab testing. See imaging documentation and LOUISA cycle flow sheet for final report and plan. Ultrasound images assessed for follicular growth and maturation as well as endometrial development.Hormone lab values assessed. Treatment plan discussed with Fertility Team and plan provided to patient via a Fertility cleaning crew member. María Elena Butt MD * Mary Ann Kirkland RN - 09/20/2024 7:31 AM EST The patient is here today for follicular ultrasound and blood work. The patient reports no problemsor complaints. Ultrasound and blood will be reviewed by the physician, the flow sheet will be updated and instructions will be communicated to the patient. Mary Ann Kirkland RN RN called patient, name and verified. Plan given for SO cycle per physician, see flowsheet for details. [facility] [employer] message sent. Medications reviewed and verified, instructions given. Patient deniesany questions or concerns. Message sent to scheduling pool for next appt. Mary Ann Kirkland RN September 20, 2024 3:16 PM documented in this encounterHolzer Hospital01-07-2025 NoteHNO ID: [id number] Author: ZHEN SEARS MD Service: ? Author [...] plan provided to patient via a Fertility cleaning crew member. María Elena Butt, [facility]01-07-2025 NoteHNO ID: [id number] Author: MARY ANN KIRKLAND RN Service: ? [...] cycle per physician, see flowsheet for details. [employer] message sent. Medications reviewed and verified, instructions given. Patient denies any questions or concerns. Message sent to scheduling pool for next appt. Mary Ann Kirkland RN September 20, 2024 3:16 [facility]01-06-2025 NoteHNO ID: [id number] Author: MARY ANN KIRKLAND RN Service: ? Author Type: Registered Nurse Type: Progress Notes Filed: 09/19/2024 14:22 Note Text: The patient is here today for follicular ultrasound and blood work. The patient reports no problems or complaints. Ultrasound and blood will be reviewed by the physician, the flow sheet will be updated and instructions will be communicated to the patient. Mray Ann Kirkland RN Unable to reach patient by phone, sent Xoft message with instructions. Location: [place] Visit type: Monitoring, SO us/e2 Date: 09/20 @ 920am Mary Ann Kirkland RN September 19, 2024 2:21 [facility]01-06-2025 History of Present illness Narrative* Mary Ann Kirkland RN - 09/19/2024 7:37 AM EST The patient is here today for follicular ultrasound and blood work. The patient reports no problemsor complaints. Ultrasound and blood will be reviewed by the physician, the flow sheet will be updated and instructions will be communicated to the patient. Mary Ann Kirkland RN Unable to reach patient by phone, sent Xoft message with instructions. Location: [place] Visit type: Monitoring, SO us/e2 Date: 09/20 @ 920am Mary Ann Kirkland RN September 19, 2024 2:21 PM documented in this encounterHolzer Hospital01-02-2025 NoteHNO ID: [id number] Author: MARY ANN KIRKLAND RN Service: ? [...] cycle per physician, see flowsheet for details. [employer] message sent. Medications reviewed and verified, instructions given. Patient denies any questions or concerns. Message sent to scheduling pool for next appt. Mary Ann Kirkland RN September 15, 2024 2:09 [facility]01-02-2025 History of Present illness Narrative* Mary Ann Kirkland RN - 09/15/2024 7:08 AM EST The patient is here today for follicular ultrasound and blood work. The patient reports no problemsor complaints. Ultrasound and blood will be reviewed by the physician, the flow sheet will be updated and instructions will be communicated to the patient. Mary Ann Kirkland RN RN called patient, name and verified. Plan given for SO cycle per physician, see flowsheet for details. MyChart message sent. Medications reviewed and verified, instructions given. Patient deniesany questions or concerns. Message sent to scheduling pool for next appt. Mary Ann Kirkland RN September 15, 2024 2:09 PM documented in this encounterHolzer Hospital12-30-2024 NoteHNO ID: [id number] Author: MARY ANN KIRKLAND RN Service: ? [...] Ann Kirkland RN September 12, 2024 4:12 [facility]12-30-2024 History of Present illness Narrative* Mary Ann Kirkland RN - 09/12/2024 4:04 PM EST RN called patient, name and verified. Plan given for SO cycle per physician, see flowsheet for details. [employer] message sent. Medications reviewed and verified, instructions given. Patient deniesany questions or concerns. Message sent to scheduling pool for next appt. Cancelled P4 and LH labs. Location: [place] Visit type: SO us/e2 Date: 09/15/24 @ 0700 Mary Ann Kirkland RN September 12, 2024 4:12 PM * Idalmis Arias RN - 09/12/2024 7:57 AM EST The patient is here today for follicular ultrasound and blood work. The patient reports no problemsor complaints. Ultrasound and blood will be reviewed by the physician, the flow sheet will be updated and instructions will be communicated to the patient. Idalmis Arias RN documented in this encounterHolzer Hospital12-30-2024 NoteHNO ID: [id number] Author: IDALMIS ARIAS RN Service: ? Author Type: Registered Nurse Type: Progress Notes Filed: 09/12/2024 16:13 Note Text: The patient is here today for follicular ultrasound and blood work. The patient reports no problems or complaints. Ultrasound and blood will be reviewed by the physician, the flow sheet will be updated and instructions will be communicated to the patient. Idalmis Arias RNOhio[facility]12-[facility]24 Telephone encounter Note * Telephone Encounter - Ivy Gardner RN - 09/09/2024 9:02 AM EST Pt calling to schedule baseline for SO cycle. Ok to start per EGR. Baseline scheduled 09/12 at 7 [place]. vIy Gardner RN September 09, 2024 9:03 AM [facility]12-27-2024 Miscellaneous Notes* Telephone Encounter - Ivy Gardner RN - 09/09/2024 9:02 AM EST Pt calling to schedule baseline for SO cycle. Ok to start per EGR. Baseline scheduled 09/12 at 7 [place]. Ivy Gardner RN September 09, 2024 9:03 AM * Telephone Encounter - Yanyc Fajardo - 09/09/2024 8:12 AM EST OOT til Thursday documented in this encounterHolzer Hospital12-27-2024 Telephone encounter Note * Telephone Encounter - Yancy Fajardo - 09/09/2024 8:12 AM EST OOT til Thursday [facility]12-04-2024 NoteHNO ID: [id number] Author: IDALMIS ARIAS RN Service: ? Author Type: Registered Nurse Type: Progress Notes Filed: 08/22/2024 11:44 Note Text: The patient is here today for follicular ultrasound and blood work. The patient reports no problems or complaints. Ultrasound and blood will be reviewed by the physician, the flow sheet will be updated and instructions will be communicated to the patient. Idalmis Arias RN Called patient with plan. No answer. LVM. Mychart sent. Idalmis Arias RN August 17, 2024 1:57 [facility]CC[facility] History of Present illness Narrative* Idalmis Arias RN - 08/17/2024 8:28 AM EST The patient is here today for follicular ultrasound and blood work. The patient reports no problemsor complaints. Ultrasound and blood will be reviewed by the physician, the flow sheet will be updated and instructions will be communicated to the patient. Idalmis Arias RN Called patient with plan. No answer. LVM. Mychart sent. Idalmis Arias RN August 17, 2024 1:57 PM documented in this encounterHolzer Hospital12-02-2024 NoteHNO ID: [id number] Author: IDALMIS ARIAS RN Service: ? Author Type: Registered Nurse Type: Progress Notes Filed: 08/15/2024 16:46 Note Text: The patient is here today for follicular ultrasound and blood work. The patient reports no problems or complaints. Ultrasound and blood will be reviewed by the physician, the flow sheet will be updated and instructions will be communicated to the patient. Idalmis Arias RN RN called patient, name and verified. Plan given for IVF cycle per physician, see flowsheet for details. MyChart message sent. Medications reviewed and verified, instructions given. Patient denies any questions or concerns. Message sent to scheduling pool for next appt. Idalmis Arias RN August 15, 2024 1:39 [facility]12-02-2024 History of Present illness Narrative* Idalmis Arias RN - 08/15/2024 7:05 AM EST The patient is here today for follicular ultrasound and blood work. The patient reports no problemsor complaints. Ultrasound and blood will be reviewed by the physician, the flow sheet will be updated and instructions will be communicated to the patient. Idalmis Arias RN RN called patient, name and verified. Plan given for IVF cycle per physician, see flowsheet fordetails. MyChart message sent. Medications reviewed and verified, instructions given. Patient denies any questions or concerns. Message sent to scheduling pool for next appt. Idalmis Arias RN August 15, 2024 1:39 PM documented in this encounterHolzer Hospital11-27-2024 NoteHNO ID: [id number] Author: NILTON ZHANG RN Service: ? Author Type: Registered Nurse Type: Progress Notes Filed: 08/10/2024 13:19 Note Text: RN called patient, name and verified. Plan given for superov cycle per physician, see flowsheet for details. [facility] [employer] message sent. Medications reviewed and verified, instructions given. Patient denies any questions or concerns. Message sent to scheduling pool for next appt. Nilton Zhang RN August 10, 2024 1:19 [facility]11-27-2024 NoteHNO ID: [id number] Author: NILTON ZHANG RN Service: ? Author [...] Nilton Zhang RN August 10, 2024 8:02 [facility]11-27-2024 History of Present illness Narrative* Nilton Zhang RN - 08/10/2024 8:02 AM EST The patient is here today for follicular ultrasound and blood work. The patient reports no problemsor complaints. Ultrasound and blood will be reviewed by the physician, the flow sheet will be updated and instructions will be communicated to the patient. Nilton Zhang RN August 10, 2024 8:02 AM documented in this encounterHolzer Hospital11-25-2024 Telephone encounter Note * Telephone Encounter - Mary Ann Kirkland RN - 08/08/2024 11:52 AM EST Patient calling with CD3 to baseline for [...] RN August 09, 2024 12:48 PM . [facility]11-25-2024 Miscellaneous Notes* Telephone Encounter - Mary Ann Kirkland RN - 08/08/2024 11:52 AM EST Patient calling with CD3 to baseline for [...] 2024 12:48 PM . documented in this encounterHolzer Hospital11-04-2024 NoteHNO ID: [id number] Author: IDALMIS ARIAS RN Service: ? Author Type: Registered Nurse Type: Progress Notes Filed: 07/18/2024 16:34 Note Text: The patient is here today for follicular ultrasound and blood work. The patient reports no problems or complaints. Ultrasound and blood will be reviewed by the physician, the flow sheet will be updated and instructions will be communicated to the patient. Idalmis Arias RN RN called patient, name and verified. Plan given for IVF cycle per physician, see flowsheet for details. MyChart message sent. Medications reviewed and verified, instructions given. Patient denies any questions or concerns. Message sent to scheduling pool for next appt. Idalmis Arias RN July 18, 2024 1:25 [facility]11-04-2024 History of Present illness Narrative* Idalmis Arias RN - 07/18/2024 7:03 AM EST The patient is here today for follicular ultrasound and blood work. The patient reports no problemsor complaints. Ultrasound and blood will be reviewed by the physician, the flow sheet will be updated and instructions will be communicated to the patient. Idalmis Arias RN RN called patient, name and verified. Plan given for IVF cycle per physician, see flowsheet fordetails. [employer] message sent. Medications reviewed and verified, instructions given. Patient denies any questions or concerns. Message sent to scheduling pool for next appt. Idalmis Arias RN July 18, 2024 1:25 PM documented in this encounterHolzer Hospital10-31-2024 NoteHNO ID: [id number] Author: GEE DEVRIES RN Service: ? Author Type: Registered Nurse Type: Progress Notes Filed: 07/14/2024 13:56 Note Text: RN called patient, name and verified. Plan given for IVF cycle per physician, see flowsheet for details. [employer] message sent. Medications reviewed and verified, instructions given. Patient denies any questions or concerns. Message sent to scheduling pool for next appt. Please schedule the patient for the following- Location: [place] Visit type: monitoring us / e2 / Date: 07/18 @7am Gee Devries RN July 14, 2024 1:50 [facility]10-31-2024 History of Present illness Narrative* Gee Devries RN - 07/14/2024 1:50 PM EDT RN called patient, name and verified. Plan given for IVF cycle per physician, see flowsheet fordetails. MyChart message sent. Medications reviewed and verified, instructions given. Patient denies any questions or concerns. Message sent to scheduling pool for next appt. Please schedule the patient for the following- Location: [place] Visit type: monitoring us / e2 / Date: 07/18 @7am Gee Devries RN July 14, 2024 1:50 PM * Ivy Gardner RN - 07/14/2024 7:06 AM EDT The patient is here today for follicular ultrasound and blood work. The patient reports no problemsor complaints. Ultrasound and blood will be reviewed by the physician, the flow sheet will be updated and instructions will be communicated to the patient. Ivy Gardner RN documented in this encounterHolzer Hospital10-31-2024 NoteHNO ID: [id number] Author: IVY GARDNER RN Service: ? Author Type: Registered Nurse Type: Progress Notes Filed: 07/14/2024 12:36 Note Text: The patient is here today for follicular ultrasound and blood work. The patient reports no problems or complaints. Ultrasound and blood will be reviewed by the physician, the flow sheet will be updated and instructions will be communicated to the patient. Ivy Gardner RNOhiohealth Doctors Hospital10-24-2024 NoteHNO ID: [id number] Author: NILTON ZHANG RN Service: ? Author Type: Registered Nurse Type: Progress Notes Filed: 07/07/2024 13:31 Note Text: RN called patient, name and verified. Plan given for IVF cycle per physician, see flowsheet for details. Spot formerly [employer] message sent. Medications reviewed and verified, instructions given. Patient denies any questions or concerns. Message sent to scheduling pool for next appt. Nilton Zhang RN July 07, 2024 1:31 [facility]10-24-2024 History of Present illness Narrative* Nilton Zhang RN - 07/07/2024 1:31 PM EDT RN called patient, name and verified. Plan given for IVF cycle per physician, see flowsheet fordetails. MyChart message sent. Medications reviewed and verified, instructions given. Patient denies any questions or concerns. Message sent to scheduling pool for next appt. Nilton Zhang RN July 07, 2024 1:31 PM * Nilton Zhang RN - 07/07/2024 7:34 AM EDT The patient is here today for follicular ultrasound and blood work. The patient reports no problemsor complaints. Ultrasound and blood will be reviewed by the physician, the flow sheet will be updated and instructions will be communicated to the patient. Nilton Zhang RN July 07, 2024 7:34 AM documented in this [facility]10-24-2024 NoteHNO ID: [id number] Author: NILTON ZHANG RN Service: ? Author [...] Nilton Zhang RN July 07, 2024 7:34 [facility]10-23-2024 History of Present illness Narrative* David Mckeon MD - 07/06/2024 9:45 AM EDT Images from the original note were not included. [address] [place] [id number] SUBJECTIVE: Patient ID: Aleida Arizmendi is a 38 y.o. female. 38 yo WF with 3 days sore throat and congestion The following portions of the patient's history were reviewed and updated as appropriate: allergies, current medications, past family history, past medical history, past social history, past surgicalhistory and problem list. REVIEW OF SYSTEMS: Review [...] Affect: Mood normal. Behavior: Behavior normal. ASSESSMENT/PLAN: Aleida was seen today for cough, headache and sore throat. Diagnoses and all orders for this visit: Other acute sinusitis, recurrence not specified Other orders - azithromycin (ZITHROMAX) 250 mg tablet; Take 2 tablets the first day, then 1 tablet daily for 4 days. Follow-up: Zpak Off work 3 days documented in this encounterSouth[facility] CenterObject[facility]10-21-2024 Telephone encounter Note* Telephone Encounter - Mary Ann Kirkland RN - 07/04/2024 1:41 PM EDT metformin 500mg twice daily and the decadron [...] discussed last cycle, listed above Sent to [employer]. Location: [place] Visit type: SO baseline Date: 07/07/24 @ 0730 Mary Ann Kirkland RN July 04, 2024 2:18 PM [facility]10-21-2024 Miscellaneous Notes* Telephone Encounter - Mary Ann Kirkland RN - 07/04/2024 1:41 PM EDT metformin 500mg twice daily and the decadron [...] discussed last cycle, listed above Sent to [employer]. Location: [place] Visit type: SO baseline Date: 07/07/24 @ 0730 Mary Ann Kirkland RN July 04, 2024 2:18 PM * Telephone Encounter - Sushila Barbour - 07/04/2024 10:48 AM EDT Super Ovulation Patient started period Thursday and following up on next steps documented in this encounterHolzer Hospital10-21-2024 Telephone encounter Note * Telephone Encounter - Sushila Barbour - 07/04/2024 10:48 AM EDT Super Ovulation Patient started period Thursday and following up on next steps [facility]10-02-2024 NoteHNO ID: [id number] Author: NILTON ZHANG RN Service: ? Author Type: Registered Nurse Type: Progress Notes Filed: 06/15/2024 13:02 Note Text: RN called patient, name and verified. Plan given for IVF cycle per physician, see flowsheet for details. [employer] formerly [employer] message sent. Medications reviewed and verified, instructions given. Patient denies any questions or concerns. Message sent to scheduling pool for next appt. Nilton Zhang RN June 15, 2024 1:02 [facility]10-02-2024 History of Present illness Narrative* Nilton Zhang RN - 06/15/2024 1:01 PM EDT RN called patient, name and verified. Plan given for IVF cycle per physician, see flowsheet fordetails. Spot formerly [employer] message sent. Medications reviewed and verified, instructions given. Patient denies any questions or concerns. Message sent to scheduling pool for next appt. Nilton Zhang RN June 15, 2024 1:02 PM * Nilton Zhang RN - 06/15/2024 8:21 AM EDT The patient is here today for follicular ultrasound and blood work. The patient reports no problemsor complaints. Ultrasound and blood will be reviewed by the physician, the flow sheet will be updated and instructions will be communicated to the patient. Nilton Zhang RN June 15, 2024 8:21 AM documented in this [facility]10-02-2024 NoteHNO ID: [id number] Author: NILTON ZHANG RN Service: ? Author [...] Nilton Zhang RN June 15, 2024 8:21 [facility]09-30-2024 NoteHNO ID: [id number] Author: MARY ANN KIRKLAND RN Service: ? [...] cycle per physician, see flowsheet for details. Spot formerly [employer] message sent. Medications reviewed and verified, instructions given. Patient denies any questions or concerns. Message sent to scheduling pool for next appt. Location: [place] Visit type: IVF us/e2/p4/lh Date: 06/15 Mary Ann Kirkland RN June 13, 2024 12:44 [facility]CC[facility]09[facility] History of Present illness Narrative* Mary Ann Kirkland RN - 06/13/2024 8:37 AM EDT The patient is here today for follicular ultrasound and blood work. The patient reports no problemsor complaints. Ultrasound and blood will be reviewed by the physician, the flow sheet will be updated and instructions will be communicated to the patient. Mary Ann Kirkland RN RN called patient, name and verified. Plan given for IVF cycle per physician, see flowsheet fordetails. Spot formerly [facility] message sent. Medications reviewed and verified, instructions given. Patient denies any questions or concerns. Message sent to scheduling pool for next appt. Location: [place] Visit type: IVF us/e2/p4/lh Date: 06/15 Mary Ann Kirkland RN June 13, 2024 12:44 PM [facility] Note* Addendum Note - Michel Joseph MD - 06/10/2024 1:33 PM EDTAddended by: MICHEL JOSEPH on: 06/10/2024 01:33 PM Modules accepted: Orders [facility]09-27[facility] Miscellaneous Notes* Addendum Note - Michel Joseph MD - 06/10/2024 1:33 PM EDTAddended by: MICHEL JOSEPH on: 06/10/2024 01:33 PM Modules accepted: Orders * Addendum Note - Nilton Zhang RN - 06/10/2024 1:29 PM EDTAddended by: NILTON ZHANG on: 06/10/2024 01:29 PM Modules accepted: Orders documented in this encounterHolzer [facility]09-27-2024 Note* Addendum Note - Nilton Zhang RN - 06/10/2024 1:29 PM EDTAddended by: NILTON ZHANG on: 06/10/2024 01:29 PM Modules accepted: Orders [facility]09-27-2024 NoteHNO ID: [id number] Author: NILTON ZHANG RN Service: ? Author [...] Nilton Zhang RN June 10, 2024 1:25 [facility]09-27-2024 History of Present illness Narrative* Nilton Zhang RN - 06/10/2024 1:24 PM EDT Message sent to Dr. Joseph regarding patient's request to be on same medications as she was on with her superov #5, dexamethasone and metformin. Dr. Joseph agreed. Medications pended and sent to Dr. Joseph to file. Mychart sent to patient. Nilton Zhang RN June 10, 2024 1:25 PM * Nilton Zhang RN - 06/10/2024 12:48 PM EDT RN called patient, name and verified. Plan given for IVF cycle per physician, see flowsheet fordetails. MyChart message sent. Medications reviewed and verified, instructions given. Patient denies any questions or concerns. Message sent to scheduling pool for next appt. Nilton Zhang RN June 10, 2024 12:58 PM * Jazmine Gonzalez MD - 06/10/2024 12:47 PM EDT LOUISA Attending Physician Note: Ultrasound and lab results reviewed. Based on review of ultrasound and lab results, medication doseand follow up date plans provided. See cycle flowsheet for dosing details. Jazmine Gonzalez MD, CROW * Gee Devries RN - 06/10/2024 7:09 AM EDT The patient is here today for follicular ultrasound and blood work. The patient reports no problemsor complaints. Ultrasound and blood will be reviewed by the physician, the flow sheet will be updated and instructions will be communicated to the patient. Gee Devries RN June 10, 2024 7:09 AM documented in this encounterHolzer Hospital09-27-2024 NoteHNO ID: [id number] Author: NILTON ZHANG RN Service: ? Author Type: Registered Nurse Type: Progress Notes Filed: 06/10/2024 12:58 Note Text: RN called patient, name and verified. Plan given for IVF cycle per physician, see flowsheet for details. Spot formerly [facility] message sent. Medications reviewed and verified, instructions given. Patient denies any questions or concerns. Message sent to scheduling pool for next appt. Nilton Zhang RN June 10, 2024 12:58 [facility]09-27-2024 NoteHNO ID: [id number] Author: JAZMINE GONZALEZ MD Service: ? Author Type: Physician Type: Progress Notes Filed: 06/10/2024 12:58 Note Text: LOUISA Attending Physician Note: Ultrasound and lab results reviewed. Based on review of ultrasound and lab results, medication dose and follow up date plans provided. See cycle flowsheet for dosing details. Jazmine Gonzalez MD, [facility]09-27-2024 NoteHNO ID: [id number] Author: GEE DEVRIES RN Service: ? Author [...] Gee Devries RN June 10, 2024 7:09 [facility]09-23-2024 NoteHNO ID: [id number] Author: MARY ANN KIRKLAND RN Service: ? Author Type: Registered Nurse Type: Progress Notes Filed: 06/06/2024 15:03 Note Text: RN called patient, name and verified. Plan given for IVF cycle per physician, see flowsheet for details. Spot formerly [employer] message sent. Medications reviewed and verified, instructions given. Patient denies any questions or concerns. Message sent to scheduling [place] for next appt. [place] Visit type: so us/e2 Date: 06/10 @ 7am Mary Ann Kirkland RN June 06, 2024 3:02 [facility]09-23-2024 History of Present illness Narrative* Mary Ann Kirkland RN - 06/06/2024 3:02 PM EDT RN called patient, name and verified. Plan given for IVF cycle per physician, see flowsheet fordetails. MyChart message sent. Medications reviewed and verified, instructions given. Patient denies any questions or concerns. Message sent to scheduling [place] for next appt. Location[place] Visit type: so us/e2 Date: 06/10 @ 7am Mary Ann Kirkland RN June 06, 2024 3:02 PM * Gee Devries RN - 06/06/2024 8:19 AM EDT The patient is here today for follicular ultrasound and blood work. The patient reports no problemsor complaints. Ultrasound and blood will be reviewed by the physician, the flow sheet will be updated and instructions will be communicated to the patient. Gee Devries RN documented in this encounterHolzer Hospital09-23-2024 NoteHNO ID: [id number] Author: GEE DEVRIES RN Service: ? Author Type: Registered Nurse Type: Progress Notes Filed: 06/06/2024 15:03 Note Text: The patient is here today for follicular ultrasound and blood work. The patient reports no problems or complaints. Ultrasound and blood will be reviewed by the physician, the flow sheet will be updated and instructions will be communicated to the patient. Gee Devries RNOhio[facility]09-[facility]24 NoteHNO ID: [id number] Author: NILTON ZHANG RN Service: ? Author Type: Registered Nurse Type: Progress Notes Filed: 06/03/2024 12:50 Note Text: RN called patient, name and verified. Plan given for IVF cycle per physician, see flowsheet for details. Fromlabt message sent. Medications reviewed and verified, instructions given. Patient denies any questions or concerns. Message sent to scheduling pool for next appt. Nilton Zhang RN June 03, 2024 12:50 [facility]09-20-2024 History of Present illness Narrative* Nilton Zhang RN - 06/03/2024 12:50 PM EDT RN called patient, name and verified. Plan given for IVF cycle per physician, see flowsheet fordetails. Spot formerly [employer] message sent. Medications reviewed and verified, instructions given. Patient denies any questions or concerns. Message sent to scheduling pool for next appt. Nilton Zhang RN June 03, 2024 12:50 PM * Nilton Zhang RN - 06/03/2024 7:03 AM EDT The patient is here today for follicular ultrasound and blood work. The patient reports no problemsor complaints. Ultrasound and blood will be reviewed by the physician, the flow sheet will be updated and instructions will be communicated to the patient. Nilton Zhang RN June 03, 2024 7:03 AM documented in this encounterHolzer Hospital09-20-2024 NoteHNO ID: [id number] Author: NILTON ZHANG RN Service: ? Author Type: Registered Nurse Type: Progress Notes Filed: 06/03/2024 07:16 Note Text: The patient is here today for follicular ultrasound and blood work. The patient reports no problems or complaints. Ultrasound and blood will be reviewed by the physician, the flow sheet will be updated and instructions will be communicated to the patient. Nilotn Zhang RN June 03, 2024 7:03 [facility]09-13-2024 NoteHNO ID: [id number] Author: NILTON ZHANG RN Service: ? Author Type: Registered Nurse Type: Progress Notes Filed: 05/27/2024 13:06 Note Text: RN called patient, name and verified. Plan given for ISuper Ov cycle per physician, see flowsheet for details. Fromlabt message sent. Medications reviewed and verified, instructions given. Patient denies any questions or concerns. Message sent to scheduling pool for next appt. Nilton Zhang RN May 27, 2024 1:06 [facility]09-13-2024 History of Present illness Narrative* Nilton hZang RN - 05/27/2024 1:06 PM EDT RN called patient, name and verified. Plan given for ISuper Ov cycle per physician, see flowsheet for details. MyChart message sent. Medications reviewed and verified, instructions given. Patientdenies any questions or concerns. Message sent to scheduling pool for next appt. Nilton Zhang RN May 27, 2024 1:06 PM * Jazmine Gonzalez MD - 05/27/2024 11:45 AM EDT LOUISA Attending Physician Note: Ultrasound and lab results reviewed. Based on review of ultrasound and lab results, medication doseand follow up date plans provided. See cycle flowsheet for dosing details. Jazmine Gonzalez MD, CR[facility] * Nilton Zhang RN - 05/27/2024 7:01 AM EDT The patient is here today for follicular ultrasound and blood work. The patient reports no problemsor complaints. Ultrasound and blood will be reviewed by the physician, the flow sheet will be updated and instructions will be communicated to the patient. Nliton Zhang RN May 27, 2024 7:02 AM documented in this encounterHolzer Hospital09-13-2024 NoteHNO ID: [id number] Author: JAZMINE GONZALEZ MD Service: ? Author Type: Physician Type: Progress Notes Filed: 05/27/2024 13:07 Note Text: LOUISA Attending Physician Note: Ultrasound and lab results reviewed. Based on review of ultrasound and lab results, medication dose and follow up date plans provided. See cycle flowsheet for dosing details. Jazmine Gonzalez MD, [facility] NoteHNO ID: [id number] Author: NILTON ZHANG RN Service: ? Author [...] Nilton Zhang RN May 27, 2024 7:02 [facility]09-10-2024 Plan of care note * LOUISA Plan Note - Michel Joseph MD - 05/24/2024 11:46 AM EDT 38 yo G1010 w/ PCOS, BMI 43, oligoovulation, 1 prior miscarriage, and poor response to oral OI, nows/p SO+TI x5 times. SIS with possible lesion, hysteroscopy normal, EMB to rule out endometritis wasnegative. Partner SA Latest Ref Rng 03/24/2023 Date Of Analysis 03/24/23 Semen Volume >=1.50 mL 1.70 Semen pH >=7.2 7.8 Color, Semen Burton Opalescent Semen Viscosity Normal Concentration >=15.00 M/mL 215.00 Total Count Sperm M 365.50 % Motile Sperm (%VT + %MACHINE SHOP INSPECTOR) >=40 % 76 Forward Progression 3 = Good motility, unidirectional Total Motile Sperm M 277.78 Sperm Diff, John >=4 % 2 (L) Undiff Rnd Cell W Rout Semen Anly <1.00 M/mL 0.70 Abstinence Time Days 2.5 Collection Time 0817 Receipt Time 0818 Semen Age 0 - 60 Minutes 27 Semen Comment 1 Aleida Arizmendi : 1985 Semen Comment 2 Concentration and motility performed using Makler chamber. At this point, I recommend proceeding with IVF. If patient wants to instead proceed with SO +/- IUIversus TI, this is acceptable, though diminishing likelihood of success given number of prior cycles and her advancing age. I communicated this plan to the nurse - if IVF, then patient needs to see me in follow up. If not IVF, can do an additional 2-3 cycles before need for follow up with me. Michel Joseph MD [facility]09-[facility] Miscellaneous Notes* LOUISA Plan Note - Michel Joseph MD - 05/24/2024 11:46 AM EDT 38 yo G1010 w/ PCOS, BMI 43, oligoovulation, 1 prior miscarriage, and poor response to oral OI, nows/p SO+TI x5 times. SIS with possible lesion, hysteroscopy normal, EMB to rule out endometritis wasnegative. Partner SA Latest Ref Rng 03/24/2023 Date Of Analysis 03/24/23 Semen Volume >=1.50 mL 1.70 Semen pH >=7.2 7.8 Color, Semen Burton Opalescent Semen Viscosity Normal Concentration >=15.00 M/mL 215.00 Total Count Sperm M 365.50 % Motile Sperm (%VT + %MACHINE SHOP INSPECTOR) >=40 % 76 Forward Progression 3 = Good motility, unidirectional Total Motile Sperm M 277.78 Sperm Diff, John >=4 % 2 (L) Undiff Rnd Cell W Rout Semen Anly <1.00 M/mL 0.70 Abstinence Time Days 2.5 Collection Time 0817 Receipt Time 0818 Semen Age 0 - 60 Minutes 27 Semen Comment 1 Aleida Arizmendi : 1985 Semen Comment 2 Concentration and motility performed using Makler chamber. At this point, I recommend proceeding with IVF. If patient wants to instead proceed with SO +/- IUIversus TI, this is acceptable, though diminishing likelihood of success given number of prior cycles and her advancing age. I communicated this plan to the nurse - if IVF, then patient needs to see me in follow up. If not IVF, can do an additional 2-3 cycles before need for follow up with me. Michel Joseph MD documented in this encounterHolzer Hospital08-30-2024 NoteHNO ID: [id number] Author: MICHEL JOSEPH MD Service: ? Author Type: Physician Type: Procedures Filed: 05/15/2024 12:58 Note Text: Aleida Arizmendi presents for hysteroscopy. Indication: Irregular Bleeding. [...] Follow up endometrial biopsy results Michel Joseph [facility]08-30-2024 Procedure note* Michel Joseph MD - 05/13/2024 12:17 PM EDT Aleida Arizmendi presents for hysteroscopy. Indication: Irregular Bleeding. [...] up endometrial biopsy results Michel Joseph MD [facility]08-30-[facility] Procedure note* Michel Joseph MD - 05/13/2024 12:17 PM EDT Aleida Arizmendi presents for hysteroscopy. Indication: Irregular Bleeding. [...] results Michel Joseph MD documented in this encounterHolzer Hospital08-22-2024 Telephone encounter Note * Telephone Encounter - Nilton Zhang RN - 05/05/2024 4:11 PM EDT Financial approved not received yet for Rigid Hysteroscopy. Mychart sent to patient. Nilton Zhang RN May 05, 2024 4:12 PM [facility]08-[facility] Miscellaneous Notes* Telephone Encounter - Nilton Zhang RN - 05/05/2024 4:11 PM EDT Financial approved not received yet for Rigid Hysteroscopy. Mychart sent to patient. Nilton Zhang RN May 05, 2024 4:12 PM * Telephone Encounter - Nilton Zhang RN - 05/05/2024 1:30 PM EDT Called patient. Informed that Dr. Joseph would [...] Zhang RN May 05, 2024 1:32 PM * Telephone Encounter - Nilton Zhang RN - 05/05/2024 12:12 PM EDT Called patient. No answer. Left VM. Nilton Zhang RN May 05, 2024 12:13 PM documented in this encounterHolzer Hospital08-22-2024 Telephone encounter Note * Telephone Encounter - Nilton Zhang RN - 05/05/2024 1:30 PM EDT Called patient. Informed that Dr. Joseph would [...] Zhang RN May 05, 2024 1:32 PM [facility] Tele[facility] encounter Note* Telephone Encounter - Nilton Zhang RN - 05/05/2024 12:12 PM EDT Called patient. No answer. Left VM. Nilton Zhang RN May 05, 2024 12:13 PM [facility] Telephone encounter Note* Telephone Encounter - Nilton Zhang RN - 05/04/2024 3:52 PM EDT Awaiting response from Dr. Joseph regarding plan for patient folloowing SIS last week. Mychart sent to patient. Nilton Zhang RN May 04, 2024 3:52 PM [facility]08[facility] Miscellaneous Notes* Telephone Encounter - Nilton Zhang RN - 05/04/2024 3:52 PM EDT Awaiting response from Dr. Joseph regarding plan for patient folloowing SIS last week. Mychart sent to patient. Nilton Zhang RN May 04, 2024 3:52 PM * Telephone Encounter - Sushila Barbour - 05/04/2024 9:20 AM EDT Patient hasn't received call discussing next steps after pt ultrasound last week documented in this encounterHolzer Hospital08-21-2024 Telephone encounter Note * Telephone Encounter - Nilton Zhang RN - 05/04/2024 3:51 PM EDT Message sent to Dr. Joseph for plan for patient following her SIS last week. Nilton Zhang RN May 04, 2024 3:51 PM [facility] Miscellaneous Notes* Telephone Encounter - Nilton Zhang RN - 05/04/2024 3:51 PM EDT Message sent to Dr. Joseph for plan for patient following her SIS last week. Nilton Zhang RN May 04, 2024 3:51 PM * Telephone Encounter - Ana Sotomayor - 05/03/2024 11:28 AM EDT Pt would like to discuss plans , pt had sis 16 documented in this encounterHolzer Hospital08-21-2024 Telephone encounter Note * Telephone Encounter - Sushila Barbour - 05/04/2024 9:20 AM EDT Patient hasn't received call discussing next steps after pt ultrasound last week [facility]08-[facility]20[facility] Telephone encounter Note* Telephone Encounter - kristianAna - 05/03/2024 11:28 AM EDT Pt would like to discuss plans , pt had sis 04/29 [facility]08-16-20[facility] Note Indication SIS, Evaluation of infertility Impression [...] an ultrasound scan performed today. Performed By: Dorie Betancourt RDMS Read By: Michel Joseph M.D.MATERNAL [id number] NoteHNO ID: [id number] Author: SUSHILA LEVY APRN.[employer] Service: ? Author Type: Nurse Practitioner Type: Procedures Filed: 04/29/2024 12:08 Note Text: Aleida Arizmendi is a 38 year old here for SIS. Referred by: Michel Joseph [id number] [id number] Chief Complaint: irregular bleeding Endometrial Biopsy: No [...] Plan of Care Visit completed when applicable. Sushila Levy APRN.[employer] PROCEDURE: EXTERNAL GENITALIA: Normal in appearance without [...] procedure well. See ViewPoint for procedure results. Sushila Levy APRN.[facility]NPOhiohealth Doctors Hospital08-16-2024 Procedure note* Sushila Levy APRN.[employer] - 04/29/2024 12:01 PM EDT Aleida Arizmendi is a 38 year old here for SIS. Referred by: Michel Joseph [id number] [id number] Chief Complaint: irregular bleeding Endometrial Biopsy: No [...] Plan of Care Visit completed when applicable. Sushila Levy APRN.CNP PROCEDURE: EXTERNAL GENITALIA: Normal in [...] procedure well. See ViewPoint for procedure results. Sushila Levy APRN.CNP [facility]08-16-2024 Procedure note* Sushila Levy APRN.CNP - 04/29/2024 12:01 PM EDT Aleida Arizmendi is a 38 year old here for SIS. Referred by: Michel Joseph [id number] [id number] Chief Complaint: irregular bleeding Endometrial Biopsy: No [...] Plan of Care Visit completed when applicable. Sushila Levy APRN.CNP PROCEDURE: EXTERNAL GENITALIA: Normal in [...] procedure well. See ViewPoint for procedure results. Sushila Levy APRN.ADELE documented in this encounterHolzer Hospital08-02-2024 NoteHNO ID: [id number] Author: JAZMINE GONZALEZ MD Service: ? Author Type: Physician [...] the OCP or after a withdrawal bleed. Jazmine Gonzalez MD, [facility]08-02-2024 History of Present illness Narrative* Jazmine Gonzalez MD - 04/15/2024 12:54 PM EDT LOUISA Attending Physician Note: Ultrasound and lab results reviewed. Based on review of ultrasound and lab results, medication doseand follow up date plans provided. Will have patient start oral contraception pill today since there is no follicular development. Will route chart to Dr. Joseph as there may be a plan for uterine cavity evaluation, which could takeplace while she is on the OCP or after a withdrawal bleed. Jazmine Gonzalez MD, CROW * Nilton Zhang RN - 04/15/2024 10:05 AM EDT The patient is here today for follicular ultrasound and blood work. The patient reports no problemsor complaints. Ultrasound and blood will be reviewed by the physician, the flow sheet will be updated and instructions will be communicated to the patient. Nilton Zhang RN April 15, 2024 10:05 AM documented in this encounterHolzer Hospital08-02-2024 NoteHNO ID: [id number] Author: NILTON ZHANG RN Service: ? Author [...] Nilton Zhang RN April 15, 2024 10:05 [facility]07-26-2024 Telephone encounter Note* Telephone Encounter - Ar Hennessy RN - 04/08/2024 8:38 AM EDT Call to pt at cell number listed Pt states that she had blood drawn locally since she is on vacation and call about results. Reviewed we have not received them yet but will keep a look out. Pt states she has the results and will send them via mychart Pt verbalized understanding Ar Hennessy RN April 08, 2024 8:39 AM [facility]07-26-2024 Miscellaneous Notes* Telephone Encounter - Ar Hennessy RN - 04/08/2024 8:38 AM EDT Call to pt at cell number listed Pt states that she had blood drawn locally since she is on vacation and call about results. Reviewed we have not received them yet but will keep a look out. Pt states she has the results and will send them via [place] Pt verbalized understanding Ar Hennessy RN April 08, 2024 8:39 AM * Telephone Encounter - Greer Horton - 04/07/2024 11:32 AM EDT Pt has ques on getting her labs done in [place] will they be stat documented in this encounterHolzer Hospital07-25-2024 Telephone encounter Note * Telephone Encounter - Greer Horton - 04/07/2024 11:32 AM EDT Pt has ques on getting her labs done in [place] will they be stat [facility]07-25-2024 Telephone encounter Note* Telephone Encounter - Nilton Zhang RN - 04/07/2024 10:15 AM EDT Letter with lab orders faxed to [phone] in [place]. Nilton Zhang RN April 07, 2024 10:16 AM [facility]07-25-2024 Miscellaneous Notes* Telephone Encounter - Nilton Zhang RN - 04/07/2024 10:15 AM EDT Letter with lab orders faxed to [phone] in [place]. Nilton Zhang RN April 07, 2024 10:16 AM documented in this encounterHolzer Hospital07-25-2024 NoteHNO ID: [id number] Author: NILTON ZHANG RN Service: ? Author [...] Nilton Zhang RN April 07, 2024 10:06 [facility]07-23-2024 NoteHNO ID: [id number] Author: NILTON ZHANG RN Service: ? Author [...] Nilton Zhang RN April 05, 2024 4:39 [facility]07-23-20[facility] History of Present illness Narrative* Nilton Zhang RN - 04/05/2024 4:34 PM EDT Discussed plan for patient with Dr. Joseph. [...] Zhang RN April 05, 2024 4:39 PM * Nilton Zhang RN - 04/05/2024 9:29 AM EDT Progesterone and Hcg level from 04/04/[address] Joseph for review. Latest Ref Rng 04/04/2024 Progesterone See comment ng/mL 0.3 hCG Quantitative, Blood <5.0 mIU/mL <0.6 Nilton Zhang RN April 05, 2024 9:31 AM documented in this encounterHolzer Hospital07-23-2024 NoteHNO ID: [id number] Author: NILTON ZHANG RN Service: ? Author Type: Registered Nurse Type: Progress Notes Filed: 04/05/2024 16:08 Note Text: Progesterone and Hcg level from 04/04/[address] Joseph for review. Latest Ref Rng 04/04/2024 Progesterone See comment ng/mL 0.3 hCG Quantitative, Blood <5.0 mIU/mL <0.6 Nilton Zhang RN April 05, 2024 9:31 [facility]07-19-2024 NoteHNO ID: [id number] Author: NILTON ZHANG RN Service: ? Author [...] Nilton Zhang RN April 01, 2024 3:52 [facility]07-18-2024 Telephone encounter Note* Telephone Encounter - Nilton Zhang RN - 03/31/2024 2:34 PM EDT Patient called and questioned if she can [...] Zhang RN March 31, 2024 2:50 PM [facility]07-18-2024 Miscellaneous Notes* Telephone Encounter - Nilton Zhang RN - 03/31/2024 2:34 PM EDT Patient called and questioned if she can [...] Zhang RN March 31, 2024 2:50 PM * Telephone Encounter - Ana Sotomayor - 03/31/2024 11:27 AM EDT Pt returning call * Telephone Encounter - Ana Sotomayor - 03/30/2024 1:18 PM EDT Pt would like to know her next steps? Has taken provera still no cycle documented in this encounterHolzer Hospital07-18-2024 Telephone encounter Note * Telephone Encounter - Ana Sotomayor - 03/31/2024 11:27 AM EDT Pt returning call [facility]07-17[facility]20[facility] Tele[facility] encounter Note* Telephone Encounter - Ana Sotomayor - 03/30/2024 1:18 PM EDT Pt would like to know her next steps? Has taken provera still no cycle [facility]07-10-2024 Telephone encounter Note* Telephone Encounter - Goyo Vides RN - 03/23/2024 10:44 AM EDT Called pt by listed phone number. See phone encounter from 03/23/24. Goyo Vides RN March 23, 2024 10:45 AM [facility]07-10-2024 Miscellaneous Notes* Telephone Encounter - Goyo Vides RN - 03/23/2024 10:44 AM EDT Called pt by listed phone number. See phone encounter from 03/23/24. Goyo Vides RN March 23, 2024 10:45 AM documented in this encounterHolzer Hospital07-10-2024 Telephone encounter Note * Telephone Encounter - Goyo Vides RN - 03/23/2024 8:48 AM EDT Called pt by listed phone number. Apologized [...] ordered, to be signed. Pt to take OCPswith the start of period and call to schedule SIS. Dr Joseph to review SIS before proceeding withSO cycle. Pt to follow up with office after SIS. Goyo Vides RN March 23, 2024 8:59 AM [facility]07-10-2024 Miscellaneous Notes* Telephone Encounter - Goyo Vides RN - 03/23/2024 8:48 AM EDT Called pt by listed phone number. Apologized [...] ordered, to be signed. Pt to take OCPswith the start of period and call to schedule SIS. Dr Joseph to review SIS before proceeding withSO cycle. Pt to follow up with office after SIS. Goyo Vides RN March 23, 2024 8:59 AM * Telephone Encounter - Goyo Vides RN - 03/22/2024 2:30 PM EDT Message resent to Dr Joseph. Awaiting answer to give pt. Goyo Vides RN March 22, 2024 2:30 PM * Telephone Encounter - Ana Sotomayor - 03/22/2024 1:29 PM EDT Pt had sis done and states they found some scar tissue in the findings. Pt would like to know if she needs to stop her meds? Or go through surgery? Pt states she has tried for 3 weeks to get an answer with no response [facility] Telephone encounter Note * Telephone Encounter - Goyo Vides RN - 03/22/2024 2:30 PM EDT Message resent to Dr Joseph. Awaiting answer to give pt. Goyo Vides RN March 22, 2024 2:30 PM [facility]07-09-2024 Telephone encounter Note* Telephone Encounter - Ana Sotomayor - 03/22/2024 1:29 PM EDT Pt had sis done and states they found some scar tissue in the findings. Pt would like to know if she needs to stop her meds? Or go through surgery? Pt states she has tried for 3 weeks to get an answer with no response [facility]06-26-2024 Telephone encounter Note* Telephone Encounter - Goyo Vides RN - 03/09/2024 11:08 AM EDT Returned call to pt using listed phone [...] signed. Chart sent to schedulers for clearance. Goyo Vides RN March 09, 2024 11:11 AM [facility]06-26-2024 Miscellaneous Notes* Telephone Encounter - Goyo Vides RN - 03/09/2024 11:08 AM EDT Returned call to pt using listed phone [...] signed. Chart sent to schedulers for clearance. Goyo Vides RN March 09, 2024 11:11 AM * Telephone Encounter - Greer Horton - 03/09/2024 10:33 AM EDT Pt didn't start her provera documented in this encounterHol[facility]06-26-2024 Telephone encounter Note * Telephone Encounter - Greer Horton - 03/09/2024 10:33 AM EDT Pt didn't start her provera [facility]06-26-2024 Telephone encounter Note* Telephone Encounter - Goyo Vides RN - 03/09/2024 9:57 AM EDT Called pt by listed phone number, no answer and left message. Instructed pt to wait for day of fullflow bleeding. Wanted to verify if she took Provera or not as Dr Joseph wrote in his note. SO #6 episode create. Chart sent to schedulers for SO referral. Asked pt to return call to office to review plan per Dr Edmonds's consult note. Goyo Vides RN March 09, 2024 9:59 AM [facility]06-26-2024 Miscellaneous Notes* Telephone Encounter - Goyo Vides RN - 03/09/2024 9:57 AM EDT Called pt by listed phone number, no answer and left message. Instructed pt to wait for day of fullflow bleeding. Wanted to verify if she took Provera or not as Dr Joseph wrote in his note. SO #6 episode create. Chart sent to schedulers for SO referral. Asked pt to return call to office to review plan per Dr Edmonds's consult note. Goyo Vides RN March 09, 2024 9:59 AM * Telephone Encounter - Rukhsana Dennis - 03/08/2024 3:22 PM EDT Cycle just lasted 1 day, brown then and pink yesterday very light. Should she take provera or should she count this as her cycle for super ov cycle, please follow up with patient. * Telephone Encounter - Greer Horton - 03/07/2024 12:12 PM EDT Pt wants to discuss her period coming and going documented in this encounterHol[facility]06-[facility]24 Telephone encounter Note * Telephone Encounter - Rukhsana Dennis - 03/08/2024 3:22 PM EDT Cycle just lasted 1 day, brown then and pink yesterday very light. Should she take provera or should she count this as her cycle for super ov cycle, please follow up with patient. [facility] Work Phone: 1(690) 632-817106-25-2024 Pepe Scott MD 03/08/2024 2:27 PM COLPOSCOPY PROCEDURE Date/Time: 03/08/2024 2:25 PM Performed by: Pepe Pope MD Authorized by: Pepe Pope MD Indication: HPV + Diagnosis: (R87.810) Cervical high risk HPV (human papillomavirus) test positive (primary encounter diagnosis) Patient's last menstrual period was 08/16/2023 (approximate). Informed Consent Consent Obtained: Written [place] Protocol SIGN IN Patient/Surrogate Stated/Verified: Patient name, Date of , Relevant allergies and Intended procedure TIME OUT Intended patient and procedure match the source document(s). Consent documented and matches the intended procedure. Relevant labs, photos, and/or imaging studies have been reviewed. Pre-Procedure Details: Pre-meds: None Local anesthetic: None Procedure Details: Procedure: Colposcopy of Vagina including Cervix [employer] Mdl speculum was placed in the vagina. Acetic [...] applicable Comments: Note patient quit smoking in October.[facility] NoteHNO ID: [id number] Author: PEPE POPE MD Service: ? Author Type: Physician Type: Procedures Filed: 03/08/2024 14:27 Note Text: COLPOSCOPY PROCEDURE Date/Time: 03/08/2024 2:25 PM Performed by: Pepe Pope MD Authorized by: Pepe Pope MD Indication: HPV + Diagnosis: (R87.810) Cervical high risk HPV (human papillomavirus) test positive (primary encounter diagnosis) Patient's last menstrual period was 08/16/2023 (approximate). Informed Consent Consent Obtained: Written [place] Protocol SIGN IN Patient/Surrogate Stated/Verified: Patient name, Date of , Relevant allergies and Intended procedure TIME OUT Intended patient and procedure match the source document(s). Consent documented and matches the intended procedure. Relevant labs, photos, and/or imaging studies have been reviewed. Pre-Procedure Details: Pre-meds: None Local anesthetic: None Procedure Details: Procedure: Colposcopy of Vagina including Cervix [employer] Mdl speculum was placed in the vagina. Acetic [...] Note patient quit smoking in October. Pepe Pope, [facility]06-25-2024 Procedure note* Pepe Pope MD - 03/08/2024 2:25 PM EDTAssociated Order(s): COLPOSCOPY Post-Procedure Diagnose(s): Cervical high risk HPV (human papillomavirus) test positive COLPOSCOPY PROCEDURE Date/Time: 03/08/2024 2:25 PM Performed by: Pepe Pope MD Authorized by: Pepe Pope MD Indication: HPV + Diagnosis: (R87.810) Cervical high risk HPV (human papillomavirus) test positive (primary encounterdiagnosis) Patient's last menstrual period was 08/16/2023 (approximate). Informed Consent Consent Obtained: Written [place] Protocol SIGN IN Patient/Surrogate Stated/Verified: Patient name, Date of , Relevant allergies and Intended procedure TIME OUT Intended patient and procedure match the source document(s). Consent documented and matches the intended procedure. Relevant labs, photos, and/or imaging studies have been reviewed. Pre-Procedure Details: Pre-meds: None Local anesthetic: None Procedure Details: Procedure: Colposcopy of Vagina including Cervix [employer] Mdl speculum was placed in the vagina. Acetic [...] quit smoking in October. Pepe Pope MD [facility] Work Phone: 1(957) 674-799106-25-2024 Procedure note* Pepe Pope MD - 03/08/2024 2:25 PM EDTAssociated Order(s): COLPOSCOPY Post-Procedure Diagnose(s): Cervical high risk HPV (human papillomavirus) test positive COLPOSCOPY PROCEDURE Date/Time: 03/08/2024 2:25 PM Performed by: Pepe Pope MD Authorized by: Pepe Pope MD Indication: HPV + Diagnosis: (R87.810) Cervical high risk HPV (human papillomavirus) test positive (primary encounterdiagnosis) Patient's last menstrual period was 08/16/2023 (approximate). Informed Consent Consent Obtained: Written [place] Protocol SIGN IN Patient/Surrogate Stated/Verified: Patient name, Date of , Relevant allergies and Intended procedure TIME OUT Intended patient and procedure match the source document(s). Consent documented and matches the intended procedure. Relevant labs, photos, and/or imaging studies have been reviewed. Pre-Procedure Details: Pre-meds: None Local anesthetic: None Procedure Details: Procedure: Colposcopy of Vagina including Cervix [employer] Mdl speculum was placed in the vagina. Acetic [...] October. Pepe Pope MD documented in this encounterHolzer Hospital06-25-2024 Instructions* Patient Instructions* Pepe Pope MD - 03/08/2024 1:53 PM EDT documented in this encounterHolzer Hospital06-24-2024 Telephone encounter Note * Telephone Encounter - Greer Horton - 03/07/2024 12:12 PM EDT Pt wants to discuss her period coming and going [facility]06-19-20[facility] History of Present illness Narrative* Violeta Esquivel APRN-ADELE - 03/02/2024 9:45 AM EDT Chief Complaint: Aleida [facility]endi [facility] 03[facility]02/2024. She is a 38 y.o. femalefollowed [facility] the [facility] for NIKO, for which auto-CPAP 5- 20 cm H2O was prescribed. At the time [...] starting to catch up with her in s tarting to have daytime sleepiness, fatigue and loud snoring. She does have some dyspnea with warm weather. She would like to get back on her machine as soon as possible. She denies any dyspnea, fevers, chills, hemoptysis, wheezing, or chest pain. She denies sleepiness while driving. Supplemental O2 use: none [place] Sleepiness Scale: Sitting and Reading: (!) Moderate [...] total) by mouth in the morning and 1tablet (1,000 mg total) in the evening. Take [...] auto CPAP 5-20 cm of water DME: [employer] Data card was not available for PAP usage data download. Impression: Aleida was seen today for sleep apnea. Diagnoses and all orders for this visit: NIKO (obstructive sleep apnea) - PAP Mask and Supplies CPAP use counseling Obesity, Class III, BMI 40-49.9 (morbid obesity) ([facility]) Noncompliance with CPAP treatment NIKO with adherence [...] not to drive if sleepy, and to kiln puller if sleepiness occurs while driving. Above [...] any errors that have escaped final proofreading. Violeta Esquivel [facility] Office: [phone] 4:36 PM on 03/02/2024 CC: MD Violeta Aguilar APRN-CNP 03/02/24 [id number] documented in this encounterTr[facility]06-19-2024 Instructions* Patient Instructions* LYUDMILA Quezada - 03/02/2024 9:45 AM EDT If you re looking for general health and wellness resources, please visit [email or web address] documented in this encounterTrinity Health System06-12-2024 Plan of care note * LOUISA Plan Note - Michel Joseph MD - 02/24/2024 11:31 AM EDT ASSESSMENT AND PLAN Aleida Arizmendi is a 38 year old female [...] I recommend we go straight to follistim infuture SO cycles. We also discussed IVF given [...] have included some information about IVF below. [facility]06-12[facility]20[facility] Miscellaneous Notes* LOUISA Plan Note - Michel Joseph MD - 02/24/2024 11:31 AM EDT ASSESSMENT AND PLAN Aleida Arizmendi is a 38 year old female [...] I recommend we go straight to follistim infuture SO cycles. We also discussed IVF given [...] information about IVF below. documented in this encounterHolzer Hospital06-11-2024 Instructions* Patient Instructions* Michel Joseph MD - 02/23/2024 4:05 PM [...] procedure used to evaluate the intrauterine cavity orinside lining of the uterus. This is achieved [...] pricing and financing. Please call the office [phone] to set up an appointment if you have not heard from our team within 1 week. IVF information Some ayala things to remember about IVF: As we discussed, it can take multiple cycles of IVF to get an embryo. Alternately, sometimes we getmultiple embryos from 1 round, so even if first embryo doesn't take , you don't have to re-do the whole process, just thaw another embryo from the freezer. Success rates based on age (from [facility] website, [facility] data = Clinic ; accessed 03/05/23): [...] until 8-10 weeks of documented in this encounterHolzer Hospital06-11-2024 NoteHNO ID: [id number] Author: MICHEL JOSEPH MD Service: ? Author Type: Physician Type: Progress Notes Filed: 02/24/2024 11:33 Note Text: REPRODUCTIVE ENDOCRINOLOGY AND INFERTILITY RETURN PATIENT CLINIC NOTE SERVICE DATE: 02/23/2024 SERVICE TIME: 3:33 PM NAME: Aleida Arizmendi FERTILITY HISTORY 38yo [id number] with PCOS, BMI 44.77 Note copied from [...] again. LABS/IMAGIN02/20/23: AMH 12.50 ASSESSMENT AND PLAN Aleida Arizmendi is a 38 year old female [...] plan and assessment as noted. Michel Joseph [facility]06-11-2024 History of Present illness Narrative* Michel Joseph MD - 02/23/2024 3:33 PM EDT Images from the original note were not included. REPRODUCTIVE ENDOCRINOLOGY AND INFERTILITY RETURN PATIENT CLINIC NOTE SERVICE DATE: 02/23/2024 SERVICE TIME: 3:33 PM NAME: Aleida Arizmendi FERTILITY HISTORY 38yo [id number] with PCOS, BMI 44.77 Note copied from [...] again. LABS/IMAGIN02/20/23: AMH 12.50 ASSESSMENT AND PLAN Aleida Arizmendi is a 38 year old female with PCOS (E28.1) Androgen excess (primary encounter diagnosis) Plan: TESTOSTERONE, TOTAL, THYROID STIMULATING HORMONE, PROGESTERONE, HYDROXYPROGESTERONE-17 (Z31.41) Fertility testing Plan: SONOHYSTEROGRAPHY (SIS) [facility] Extensive counseling today as I assume care [...] I recommend we go straight to follistim infuture SO cycles. We also discussed IVF given [...] Greater than 50% of the time was spentcounseling and coordinating the care based on my plan and assessment as noted. Michel Joseph MD documented in this encounterHolzer Hospital06-03-2024 Telephone encounter Note * Telephone Encounter - Roxanna May - 02/15/2024 12:46 PM EDT Did call patient and LVM. Also sent patient a MyChart message. Postponing to ensure scheduling. [facility]06-03-2024 Miscellaneous Notes* Telephone Encounter - Roxanna May - 02/15/2024 12:46 PM EDT Did call patient and LVM. Also sent patient a MyChart message. Postponing to ensure scheduling. * Telephone Encounter - Kylee Cunha RN - 02/15/2024 12:15 PM EDT please assist w appt for colposcopy. * Telephone Encounter - Pepe Pope MD - 02/15/2024 8:57 AM EDT We can numb the area * Telephone Encounter - Kylee Cunha RN - 02/12/2024 4:15 PM EDT Called and spoke with pt in depth. She says she is aware of her results but does not want to do a colposcopy. Reports she has had this done twice and it was a bad experience. She says she would either like something to numb the area or have this done in ASC. Please advise. * Telephone Encounter - Kylee Cunha RN - 02/12/2024 4:15 PM EDT ----- Message from Pepe Pope MD sent at 02/08/2024 4:34 PM EDT ----- Needs colposcopy documented in this encounterHolzer Hospital06-03-2024 Telephone encounter Note * Telephone Encounter - Kylee Cunha RN - 02/15/2024 12:15 PM EDT please assist w appt for colposcopy. [facility] Telephone encounter Note* Telephone Encounter - Pepe Pope MD - 02/15/2024 8:57 AM EDT We can numb the area [facility] Work Phone: 1(527) 211-595305-31-2024 Telephone encounter Note* Telephone Encounter - Kylee Cunha RN - 02/12/2024 4:15 PM EDT Called and spoke with pt in depth. She says she is aware of her results but does not want to do a colposcopy. Reports she has had this done twice and it was a bad experience. She says she would either like something to numb the area or have this done in ASC. Please advise. [facility]05-31-2024 Telephone encounter Note* Telephone Encounter - Kylee Cunha RN - 02/12/2024 4:15 PM EDT ----- Message from Pepe Pope MD sent at 02/08/2024 4:34 PM EDT ----- Needs colposcopy [facility]05-24-20[facility] Telephone encounter Note* Telephone Encounter - Idalmis Arias RN - 02/05/2024 3:23 PM EDT Called patient to report negative HCG level. Patient expressed frustration with needing another consult after just meeting with Dr. Menchaca. Responded with heart and listened to patient frustration. She is agreeable to wait. Idalmis Arias RN February 05, 2024 3:32 PM [facility]-24-2024 Miscellaneous Notes* Telephone Encounter - Idalmis Arias RN - 02/05/2024 3:23 PM EDT Called patient to report negative HCG level. Patient expressed frustration with needing another consult after just meeting with Dr. Menchaca. Responded with heart and listened to patient frustration. She is agreeable to wait. Idalmis Arias RN February 05, 2024 3:32 PM * Telephone Encounter - Ivy Gardner RN - 02/05/2024 10:01 AM EDT Pt requesting a blood hcg level, since full flow has not started, and she has only had some brown spotting. SO cycle Trigger/TI ,01/11,01/12. Pt said HPT was negative, and was questioning implantation bleeding . Hcg order placed. Ivy Gardner RN February 05, 2024 10:04 AM * Telephone Encounter - Yancy Fajardo - 02/05/2024 9:03 AM EDT Patient states she called Thursday and has gotten no response documented in this encounterHolzer Hospital05-24-2024 Telephone encounter Note * Telephone Encounter - Ivy Gardner RN - 02/05/2024 10:01 AM EDT Pt requesting a blood hcg level, since full flow has not started, and she has only had some brown spotting. SO cycle Trigger/TI 01/10/,01/11,01/12. Pt said HPT was negative, and was questioning implantation bleeding . Hcg order placed. Ivy Gardner RN February 05, 2024 10:04 AM [facility]-24-[facility] Telephone encounter Note* Telephone Encounter - Yancy Fajardo - 02/05/2024 9:03 AM EDT Patient states she called Thursday and has gotten no response [facility]05-20-2024 Telephone encounter Note* Telephone Encounter - Ivy Gardner RN - 02/01/2024 3:03 PM EDT Pt states negative HPT from SO#5 cycle with TI. Pt states she has an appointment with Dr. Joseph, but hopes to do another SO cycle with next period. Will confirm plan with the doctor and let the patient know recommendations. Pt verbalized understanding. Ivy Gardner RN February 01, 2024 3:04 PM [facility]05-20-2024 Miscellaneous Notes* Telephone Encounter - Ivy Gardner RN - 02/01/2024 3:03 PM EDT Pt states negative HPT from SO#5 cycle with TI. Pt states she has an appointment with Dr. Joseph, but hopes to do another SO cycle with next period. Will confirm plan with the doctor and let the patient know recommendations. Pt verbalized understanding. Ivy Gardner RN February 01, 2024 3:04 PM * Telephone Encounter - Khurram Zendejas RN - 02/01/2024 11:54 AM EDT Called the patient she verified her name and date of Patient did super ovulation no period not sure what to do Khurram Zendejas RN February 01, 2024 11:55 AM * Telephone Encounter - Rukhsana Dennis - 02/01/2024 11:29 AM EDT Unsure about cycle and has pressure but not cramping requests call back, started yesterday morning. documented in this encounterHolzer Hospital05-20-2024 Telephone encounter Note * Telephone Encounter - Khurram Zendejas RN - 02/01/2024 11:54 AM EDT Called the patient she verified her name and date of Patient did super ovulation no period not sure what to do Khurram Zendejas RN February 01, 2024 11:55 AM [facility]-20[facility] Telephone encounter Note* Telephone Encounter - Rukhsana Dennis - 02/01/2024 11:29 AM EDT Unsure about cycle and has pressure but not cramping requests call back, started yesterday morning. [facility] Work Phone: [phone]) 915-691705-09-2024 NoteHNO ID: [id number] Author: PEPE POPE MD Service: ? 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 Comments: Sexual Activity: Yes; Male Contraception: [...] external genitalia normal, normal Bartholin's glands, urethra, Rillito's glands, no vulvar lesions, no cervical lesions, [...] one year or sooner as needed Pepe Pope, [facility]05-09-2024 History of Present illness Narrative* Pepe Pope MD - 01/21/2024 8:33 AM EDT Aleida is a 38 year old who presents [...] L0 SAB0 IAB1 Ectopic0 Multiple0 Live Births0 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 The patient reports no problemsor complaints. Ultrasound and blood will be reviewed by the physician, the flow sheet will be updated and instructions will be communicated to the patient. Ivy Gardner RN Plan reviewed with pt and sent to my chart. Pt verbalized understanding of plan. Ivy Gardner RN January 11, 2024 1:45 PM documented in this encounterHolzer Hospital04-26-2024 History of Present illness Narrative* Nilton Zhang RN - 01/08/2024 12:47 PM EDT RN called patient, name and verified. Plan given for superov cycle per physician, see flowsheetfor details. MyChart message sent. Medications reviewed and verified, instructions given. Patient denies any questions or concerns. Message sent to scheduling pool for next appt. Nilton Zhang RN January 08, 2024 12:47 PM * Nilton Zhang RN - 01/08/2024 7:21 AM EDT The patient is here today for follicular ultrasound and blood work. The patient reports no problemsor complaints. Ultrasound and blood will be reviewed by the physician, the flow sheet will be updated and instructions will be communicated to the patient. Nilton Zhang RN January 08, 2024 7:21 AM documented in this encounterHolzer Hospital04-19-2024 Miscellaneous Notes* Telephone Encounter - Nena Childs MD - 01/01/2024 5:25 PM EDT Telephone Encounter Received page asking for call back. Called patient. Confirmed patient's name and date of overthe phone. Aleida Arizmendi is a 38 year old female undergoing SO # 5. Received call from [facility] as they had received prescription for Gonal-F and don't carry that medication and wanted to know if they could switch to Follistim. I confirmed that they could switch to Follistim for this patient. Nena Childs MD PGY-5 Reproductive Endocrinology and Infertility Fellow documented in this encounterHolzer Hospital04-19-2024 History of Present illness Narrative* Nilton Zhang RN - 01/01/2024 1:48 PM EDT Verified/corrected flowsheet with Dr. Joseph. RN called patient, name and verified. Plan given for IVF cycle per physician, see flowsheet for details. MyChart message sent. Medications reviewedand verified, instructions given. Patient denies any questions or concerns. Message sent to scheduling pool for next appt. Nilton Zhang RN January 01, 2024 1:48 PM * Nilton Zhang RN - 01/01/2024 7:37 AM EDT The patient is here today for follicular ultrasound and blood work. The patient reports no problemsor complaints. Ultrasound and blood will be reviewed by the physician, the flow sheet will be updated and instructions will be communicated to the patient. Nilton Zhang RN January 01, 2024 7:39 AM documented in this encounterHolzer Hospital04-16-2024 Miscellaneous Notes* Telephone Encounter - Amarilis Dorman RN - 12/29/2023 3:06 PM EDT Called patient to number listed, verified pt. Patient last provera was 12/12 She still has not had a period or any indication that a period is coming. Baseline scheduled for patient. Transferred to schedule with another MD to establish care. All questions answered. Amarilis Dorman RN December 29, 2023 3:15 PM * Telephone Encounter - Amarilis Dorman RN - 12/28/2023 2:38 PM EDT Attempted to call patient. Left message for patient to call the office. Amarilis Dorman RN December 28, 2023 2:40 PM * Telephone Encounter - Greer Horton - 12/28/2023 9:50 AM EDT Pt ret call pls leave message on her my chart with her plan * Telephone Encounter - Amarilis Dorman, RN - 12/28/2023 9:37 AM EDT Attempted to call patient. Left message for patient to call the office. Amarilis Dorman RN December 28, 2023 9:38 AM * Telephone Encounter - Sushila Barbour - 12/25/2023 11:07 AM EDT Ivf Patient has not gotten period after taking medication documented in this encounterHolzer Hospital04-13-2024 Miscellaneous Notes* Telephone Encounter - Zahra Snyder - 12/26/2023 10:25 AM EDT Patient called office and l/m on v/m. Office returned call patient has spam block on phone. Office call could not go through, office tried 3x documented in this encounterTrinity Health [facility]04-13-2024 Telephone encounter Note* Telephone Encounter - Zahra Snyder - 12/26/2023 10:25 AM EDT Patient called office and l/m on v/m. Office returned call patient has spam block on phone. Office call could not go through, office tried 3x [facility]04-10-2024 Miscellaneous Notes* Telephone Encounter - Zhane Oliver - 12/23/2023 10:08 AM EDT Patient called office and l/m on v/m. Office returned call and l/m on v/m documented in this encounterSouthwestern Vermont Medical CenterObjective Logistics04-10-2024 Telephone encounter Note* Telephone Encounter - Zhane Oliver - 12/23/2023 10:08 AM EDT Patient called office and l/m on v/m. Office returned call and l/m on v/m [facility]2024 NoteHNO ID: [id number] Author: DMITRY MENCHACA MD Service: ? Author [...] visit. 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 Follitropin Ila ([facility] REDI-JECT) 300/0.5 unit/mL pnij Inject 75 Units [...] see the patient, kimberli (more content not included)...[facility]03-08-2024 History of Present illness Narrative* David Mckeon MD - 11/20/2023 8:00 AM EST Images from the original note were not included. [id number] [facility] [address] SUBJECTIVE: Patient ID: Aleida Arizmendi is a 38 y.o. female. Pt is here to discuss triglyceridemia The following portions of the patient's history were reviewed and updated as appropriate: allergies, current medications, past family history, past medical history, past social history, past surgicalhistory and problem list. REVIEW OF SYSTEMS: Review of Systems PHYSICAL EXAMINATION: There were no vitals filed for this visit. Physical Exam TG 604 ASSESSMENT/PLAN: Aleida was seen today for results. Diagnoses and all orders for this visit: PCOS (polycystic ovarian syndrome) - Lipid profile; Future Hypertriglyceridemia - Lipid profile; Future Follow-up: A1c, Lipid profile fastin in 4-6 weeks Low carb diet and triglyceridemia education given Fibrates , niacin and reservatrol are not indicated for Nutrition referral documented in this encounterAdams County Regional Medical CenterNMotive Research Mclaren Caro [id number] NoteHNO ID: [id number] Author: KOBI WEINER PA-C Service: ? Author Type: Physician Sheriff Detective Type: Progress Notes Filed: 11/13/2023 13:50 Note Text: VIRTUAL VISIT PROGRESS NOTE This is a virtual visit. It required patient-provider interaction for the medical decision making as documented below. Patient name and birthday verified: Yes Location of patient: [place] Persons Present: patient I have communicated my name and active licensure. The patient's identity and physical location were verified at the time of this visit. Either the patient or their legal pharmaceutical representative has been informed of the risks and benefits of -- and alternatives to -- treatment through a remote evaluation and consents to proceed with the evaluation remotely. CASSANDRA DEVELOPER POSTOP PROGRESS NOTE SERVICE DATE: 11/13/2023 SERVICE TIME: 1:30pm POST-OP DAY # 14 SUBJECTIVE: Aleida Arizmendi is a 37 year old POD# [...] AND PLAN F/u with Dr. Menchaca 12/02/[address] Menchaca SIGNATURE: Kobi Weiner PA-C PATIENT NAME: Aleida Arizmendi DATE: November 13, 2023 TIME: 12:14 PM PAGER/CONTACT #: I spent a total of 20 minutes on the date of the service which included preparing to see the patient, completing clinical documentation, counseling and educating the patient/family/caregiver, independently interpreting results (not separately reported), and communicating results to the patient/family/caregiver. [facility]03-01-2024 History of Present illness Narrative* Kobi Weiner PA-C - 11/13/2023 1:30 PM EST VIRTUAL VISIT PROGRESS NOTE This is a virtual visit. It required patient-provider interaction for the medical decision making as documented below. Patient name and birthday verified: Yes Location of patient: [place] Persons Present: patient I have communicated my name and active licensure. The patient's identity and physical location wereverified at the time of this visit. Either the patient or their legal pharmaceutical representative has been informed of the risks and benefits of -- and alternatives to -- treatment through a remote evaluation andconsents to proceed with the evaluation remotely. CASSANDRA DEVELOPER POSTOP PROGRESS NOTE SERVICE DATE: 11/13/2023 SERVICE TIME: 1:30pm POST-OP DAY # 14 SUBJECTIVE: Aleida Arizmendi is a 37 year old POD# [...] & PLAN F/u with Dr. Menchaca 12/02/[address] Menchaca SIGNATURE: Kobi Weiner PA-C PATIENT NAME: Aleida Arizmendi DATE: November 13, 2023 TIME: 12:14 PM PAGER/CONTACT #: I spent a total of 20 minutes on the date of the service which included preparing to see the patient, completing clinical documentation, counseling and educating the patient/family/caregiver, independently interpreting results (not separately reported), and communicating results to the patient/family/caregiver. documented in this encounterHolzer Hospital02-23-2024 Miscellaneous Notes* Telephone Encounter - Idalmis Arias RN - 11/06/2023 10:22 AM EST Called patient regarding mychart. Need to follow HCG down post D&C. Letter sent for patient to get at [facility] tomorrow. Also placed standing orders. On televisit for Thursday 11/09 to review and follow up with patient. Idalmis Arias RN November 06, 2023 10:22 AM * Telephone Encounter - Kobi Weiner PA-C - 11/06/2023 10:19 AM EST S/p D&C 10/30 ASSESSMENT/PLAN: hCG weekly, till <5 Pt has a letter order in the chart. Faxing it to [facility] as well. Kobi Weiner PA-C November 06, 2023 10:32 AM documented in this encounterHolzer Hospital02-21-2024 History of Present illness Narrative* David Mckeon MD - 11/04/2023 8:00 AM EST Images from the original note were not included. [id number] [address] Subjective: Aleida Arizmendi is a 37 y.o. female who [...] oz) BMI 44.03 kg/m Physical Exam Assessment/Plan: Aleida was seen today for annual exam. Diagnoses [...] mg total) by mouth in the morning. cycle.(Patient not taking: Reported on 11/04/2023) ergocalciferol (DRISDOL) [...] topically 2 (two) times a day. (Patient nottaking: Reported on 11/04/2023) 45 g 5 ZINC ORAL Take by mouth. (Patient not taking: Reported on 11/04/2023) No facility-administered medications prior to visit. Follow Up: vitamin restart PA encouraged Labs ordered documented in this encounterTrinity Health System02-16-2024 NoteHNO ID: [id number] Author: RU COOPER RN Service: ? Author Type: Registered Nurse Type: Nursing Progress Note Filed: 10/30/2023 14:12 Note Text: Patient dressed [facility]02-16-2024 NoteHNO ID: [id number] Author: DORIE BURKETT APRN.RESEARCH ENGINEER Service: Anesthesiology Author Type: Nurse Change Control Coordinator Type: Anesthesia Procedure Notes Filed: 10/30/2023 12:07 Note Text: ANESTHESIOLOGY PROCEDURE NOTE Airway General Information Procedure Start Time/Medication Administration: 10/30/2023 12:00 PM Patient location during procedure: OR Timeout Performed Pre-procedure: timeout performed Consent Obtained: Yes Patient identity confirmed: arm band Staffing Anesthesiologist: Jagdeep Cordova MD RESEARCH ENGINEER: Dorie Burkett APRN.RESEARCH ENGINEER Performed by: anesthesiologist Indications and Patient Condition Indications for airway management: anesthesia and airway protection Preoxygenated: yes anesthesia circuit Patient position: sniffing Method: asleep Difficult Mask: No Final Airway Details Final airway type: supraglottic airway Number of attempts at approach: 1 Ventilation between attempts: BVM Final Supraglottic Airway: i-gel Size 4 Seal Adequate: yes Airway not difficult SIGNATURE: Dorie Burkett APRN.RESEARCH ENGINEER PATIENT NAME: Aleida Arizmendi DATE: October 30, 2023 TIME: 12:06 PM CSN: [id number] [facility] Medical Center02-15-2024 Miscellaneous Notes* Telephone Encounter - Smiley Viramontes - 10/29/2023 4:32 PM EST Called patient left message to confirm surgery time documented in this encounterHolzer Hospital02-09-2024 Miscellaneous Notes* Telephone Encounter - Jennifer Guevara RN - 10/23/2023 10:[address] Griffiths requested to notify LOUISA of pt loss confirmed via OB US today 10/23 Called LOUISA, notified nurse of pt loss. Jennifer Guevara RN documented in this encounterHolzer Hospital02-08-2024 Miscellaneous Notes* Addendum Note - Armin Hernandez RN - 10/22/2023 11:18 AM ESTAddended by: ARMIN HERNANDEZ on: 10/22/2023 11:18 AM Modules accepted: Orders documented in this encounterHolzer Hospital02-02-2024 History of Present illness Narrative* Dorie Acosta RN - 10/16/2023 10:30 AM EST Name: Aleida Arizmendi Date/Time of Service:10/16/2023 11:02 AM :1985 Age: 37 y.o. Chief Complaint Chief Complaint Patient presents with Initial Visit Aleida Arizmendi is a 37 y.o. at 8w5d [...] Her smoking use included cigarettes. She has neverused smokeless tobacco. She reports that she does [...] on 11/0510/16/2023 11:02 AM documented in this encounterCameron Regional Medical [id number] NoteHNO ID: [id number] Author: KOBI WEINER PA-C Service: ? Author Type: Physician Sheriff Detective Type: Progress Notes Filed: 09/18/2023 14:54 Note Text: REPRODUCTIVE ENDOCRINOLOGY AND INFERTILITY New SERVICE DATE: 09/18/2023 SERVICE TIME: 11:00 AM NAME: Aleida Arizmendi VIRTUAL VISIT PROGRESS NOTE This is a virtual visit. It required patient-provider interaction for the medical decision making as documented below. Patient name and birthday verified: Yes Location of patient: [place] Persons Present: patient I have communicated my name and active licensure. The patient's identity and physical location were verified at the time of this visit. Either the patient or their legal pharmaceutical representative has been informed of the risks and [...] be grammatical and typographical errors missed in proofreading.[facility]01-02-2024 Miscellaneous Notes* Telephone Encounter - Eugenia Cerda CMA - 09/15/2023 11:29 AM EST Patient recently found out she is , asking if she should continue taking her medications. Please advise * Telephone Encounter - David Mckeon MD - 09/15/2023 11:29 AM EST Would stop all rx meds until reevaluated by obgyn * Telephone Encounter - Eugenia Cerda CMA - 09/15/2023 11:29 AM EST Left message for patient advising of DTD recommendation. documented in this encounterTr[facility] System01-[facility]-2024 Telephone encounter Note* Telephone Encounter - Eugenia Cerda CMA - 09/15/2023 11:29 AM EST Patient recently found out she is , asking if she should continue taking her medications. Please advise [facility] [employer] [id number] Telephone encounter Note* Telephone Encounter - David Mckeon MD - 09/15/2023 11:29 AM EST Would stop all rx meds until reevaluated by obgyn [facility] [employer] [id number] Telephone encounter Note* Telephone Encounter - Eugenia Cerda CMA - 09/15/2023 11:29 AM EST Left message for patient advising of DTD recommendation. [facility] [employer] [id number] History of Present illness Narrative* Mary Ann Kirkland RN - 08/25/2023 7:33 AM EST The patient is here today for follicular ultrasound and blood work. The patient reports no problemsor complaints. Ultrasound and blood will be reviewed by the physician, the flow sheet will be updated and instructions will be communicated to the patient. Mary Ann Kirkland RN RN called patient, name and verified. Plan given for IVF cycle per physician, see flowsheet fordetails. Fromlabt message sent. Medications reviewed and verified, instructions given. Patient denies any questions or concerns. Message sent to scheduling pool for next appt. Location: [place] Visit type: SO IVF us/e2 Date: 08/28/23 @ 0700 Mary Ann Kirkland RN August 25, 2023 1:57 PM documented in this encounterHolzer Hospital12-06-2023 History of Present illness Narrative* Nilton Zhang RN - 08/19/2023 1:58 PM EST RN called patient, name and verified. Plan given for IVF cycle per physician, see flowsheet fordetails. Fromlabt message sent. Medications reviewed and verified, instructions given. Patient denies any questions or concerns. Message sent to scheduling pool for next appt. Nilton Zhang RN August 19, 2023 1:58 PM * Nilton Zahng RN - 08/19/2023 7:35 AM EST The patient is here today for follicular ultrasound and blood work. The patient reports no problemsor complaints. Ultrasound and blood will be reviewed by the physician, the flow sheet will be updated and instructions will be communicated to the patient. Nilton Zhang RN August 19, 2023 7:36 AM documented in this encounterHolzer Hospital12-04-2023 Miscellaneous Notes* Telephone Encounter - Mary Ann Kirkland RN - 08/17/2023 4:34 PM EST Unable to reach patient by phone, left message to return my call. Need plan from SB and message sent to [facility] for SO with TIC. Plan to bring patient in on Thursday Mary Ann Kirkland August 17, 2023 4:34 PM Unable to reach patient by phone, but patient is scheduled for tomorrow. Same plan per Dr. Menchaca. She will need follow up with [facility] if not after this attempt. Request to schedulers. sent to patient. Mary Ann Kirkland RN August 18, 2023 11:30 AM * Telephone Encounter - Juana Liu - 08/17/2023 11:45 AM EST Patient called stating she started her cycle yesterday so she is CD2 today. Wants to know when to schedule her baseline US documented in this encounterHolzer Hospital11-28-2023 Instructions* Patient Instructions* Otilia Camp MD - 08/11/2023 2:21 PM EST Skin test is negative to penicillin Please update me with results to proceed to part 3 of the test. Can use claritin or zyrtec during We can consider environmental testing in the future Can use saline for now for dryness documented in this encounterHolzer Hospital11-28-2023 History of Present illness Narrative* Mary Ann Fernandez RN - 08/11/2023 1:50 PM EST ANTIBIOTIC PERCUTANEOUS AND INTRADERMAL SKIN TESTING/ Mean Wheal & Flare Diameter (mm) Patient has been identified by name and date of : Yes, Provider Dr. Camp Date 08/11/2023 [id number] . Skin test applied by : Mary [...] mm PENICILLIN GK 10,000 UNITS/ML Pfizer, NDC: 1405-6701-10, Lot: [id number], exp: 08/13/2023 recon. exp:,1429 P: W = 0 mm F = 0 mm ID: W = 0 mm F = 0 mm PREPEN -(benzylpenicilloyl polylysine) full strength [employer], ND: 01728-987-49, Lot: [id number], exp: 01/11/2025 P: W = 0 mm F = 0mm ID: W = 0 mm F = 0 mm AMPICILLIN SODIUM 12.5mg/ml Sandoz, ND: 2675-8197-45, Lot: [id number], exp: 12/12/2024 recon. exp: 1430 P: W = 0 mm F = 0mm ID: W = 0 mm F = 0 mm HISTAMINE- positive control (Histamine base 6mg/ml)for Prick and 0.1 mg/ml for intradermal P: W = 5mm F = 15 mm ID:W = 10 mm F = 40 mm 1400 Applied topical steroid to positive percutaneous allergy skin tests. * Otilia Camp MD - 08/11/2023 1:11 PM EST Consultation requested by: Ines Julio MD for evaluation of allergy/immunology disorders [...] REMOVAL STAGE 1 2013 REMOVAL GALLBLADDER 2017 Current Outpatient Medications Medication Sig dexAMETHasone (DECADRON) [...] this visit. 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 The patient reports no problemsor complaints. Ultrasound and blood will be reviewed by the physician, the flow sheet will be updated and instructions will be communicated to the patient. Mary Ann Kirkland RN called patient, name and verified. Plan given for SO cycle per physician, see flowsheet for details. Fromlabt message sent. Medications reviewed and verified, instructions given. Patient deniesany questions or concerns. Message sent to scheduling pool for next appt. Mary Ann Kirkland July 30, 2023 1:37 PM * Dmitry Menchaca MD - 07/30/2023 8:53 AM EST Follicular Ultrasound Monitoring Visit Patient here for follicle monitoring and/or endometrial assessment, via ultrasound, and lab testing. See imaging documentation and LOUISA cycle flow sheet for final report and plan. Ultrasound images assessed for follicular growth and maturation as well as endometrial development.Hormone lab values assessed. Treatment plan discussed with Fertility Team and plan provided to patient via a Fertility cleaning crew member. Dmitry Menchaca MD July 30, 2023 8:53 AM documented in this encounterHolzer Hospital11-10-2023 History of Present illness Narrative* Michel Joseph MD - 07/24/2023 9:30 AM EST Patient presents for pelvic ultrasound. See Imaging tab for results. Michel Joseph MD documented in this encounterHolzer Hospital11-03-2023 History of Present illness Narrative* Emelia Rust RN - 07/17/2023 2:23 PM EDT The patient is here today for follicular ultrasound and blood work. The patient reports no problemsor complaints. Ultrasound and blood will be reviewed by the physician, the flow sheet will be updated and instructions will be communicated to the patient. Emelia Rust RN Called patient with plan per flowsheet, went over medications and timing. Patient states understanding. Sent detailed Xoft message, request sent for appointment on 07/24 at [place]. Emelia Rust RN July 17, 2023 2:25 PM documented in this encounterHolzer Hospital10-13-2023 History of Present illness Narrative* Nilton Zhang RN - 06/26/2023 2:17 PM EDT RN called patient, name and verified. Plan given for IVF cycle per physician, see flowsheet fordetails. Fromlabt message sent. Medications reviewed and verified, instructions given. Patient denies any questions or concerns. Message sent to scheduling pool for next appt. Nilton Zhang RN June 26, 2023 2:17 PM * Nilton Zhang RN - 06/26/2023 7:56 AM EDT The patient is here today for follicular ultrasound and blood work. The patient reports no problemsor complaints. Ultrasound and blood will be reviewed by the physician, the flow sheet will be updated and instructions will be communicated to the patient. Nilton Zhang RN June 26, 2023 7:58 AM documented in this encounterHolzer Hospital09-14-2023 History of Present illness Narrative* Nilton Zhang RN - 05/28/2023 2:52 PM EDT RN called patient, name and verified. Plan given for superovcycle per physician, see flowsheet for details. Xoft message sent. Medications reviewed and verified, instructions given. Patient questioned whether or not to stop dexmathasone. Message sent to Dr. Menchaca and he stated to stop dexmethasone. Nilton Zhang RN May 28, 2023 2:54 PM * Dmitry Menchaca MD - 05/28/2023 11:41 AM EDT Follicular Ultrasound Monitoring Visit Patient here for follicle monitoring and/or endometrial assessment, via ultrasound, and lab testing. See imaging documentation and LOUISA cycle flow sheet for final report and plan. Ultrasound images assessed for follicular growth and maturation as well as endometrial development.Hormone lab values assessed. Treatment plan discussed with Fertility Team and plan provided to patient via a Fertility cleaning crew member. Dmitry Menchaca MD * Nilton Zhang RN - 05/28/2023 7:24 AM EDT The patient is here today for follicular ultrasound and blood work. The patient reports no problemsor complaints. Ultrasound and blood will be reviewed by the physician, the flow sheet will be updated and instructions will be communicated to the patient. Nilton Zhang RN May 28, 2023 7:25 AM documented in this encounterHolzer Hospital09-14-2023 Miscellaneous Notes* Addendum Note - Ines Julio MD - 05/28/2023 12:20 PM EDTAddended by: INES JULIO on: 05/28/2023 12:20 PM Modules accepted: Orders documented in this encounterHolzer Hospital09-13-2023 Miscellaneous Notes* Telephone Encounter - Idalmis Arias RN - 05/27/2023 10:21 AM EDT Return call. Confirmed with patient that she has enough meds and verbalizes understanding of plan. Idalmis Arias RN May 27, 2023 10:21 AM * Telephone Encounter - Sushila Barbour - 05/26/2023 4:06 PM EDT N- ivf Patient is needing the follistom shot documented in this encounterHolzer Hospital09-13-2023 Miscellaneous Notes* Telephone Encounter - Mary Ann Kirkland - 05/27/2023 10:07 AM EDT Updated flowsheet. Patient has trigger. Mary Ann Kirkland May 27, 2023 10:08 AM * Telephone Encounter - Sushila Barbour - 05/25/2023 3:48 PM EDT N- ivf Patient has trigger shot documented in this encounterHolzer Hospital09-11-2023 History of Present illness Narrative* Mary Ann Kirkland - 05/25/2023 2:02 PM EDT The patient is here today for follicular ultrasound and blood work. The patient reports no problemsor complaints. Ultrasound and blood will be reviewed by the physician, the flow sheet will be updated and instructions will be communicated to the patient. Mary Ann Kirkland Unable to reach patient by phone, sent Xoft message with instructions. Location: [place] Visit type: SO monitoring us/e2 Date: 05/28/23 @ 0715 Mary Ann Kirkland May 25, 2023 2:13 PM documented in this encounterHolzer Hospital09-07-2023 Miscellaneous Notes* Telephone Encounter - Nilton Zhang RN - 05/21/2023 3:13 PM EDT Called patient. Reviewed IVF plan and thigh injection sites. Discussed possibility of cancellation if no follicle growth at next appt. Pt. Verbalized understanding. Nilton Zhang RN May 21, 2023 3:14 PM * Telephone Encounter - Ana Sotomayor - 05/21/2023 1:47 PM EDT Pt returning call from Nurse Nilton Crow documented in this encounterHolzer Hospital09-07-2023 History of Present illness Narrative* Nilton Zhang RN - 05/21/2023 1:26 PM EDT RN called patient, name and verified. Plan given for IVF cycle per physician, see flowsheet fordetails. Fromlabt message sent. Medications reviewed and verified, instructions given. Patient denies any questions or concerns. Message sent to scheduling pool for next appt. Nilton Zhang RN May 21, 2023 1:26 PM * Dmitry Menchaca MD - 05/21/2023 9:49 AM EDT Follicular Ultrasound Monitoring Visit Patient here for follicle monitoring and/or endometrial assessment, via ultrasound, and lab testing. See imaging documentation and LOUISA cycle flow sheet for final report and plan. Ultrasound images assessed for follicular growth and maturation as well as endometrial development.Hormone lab values assessed. Treatment plan discussed with Fertility Team and plan provided to patient via a Fertility cleaning crew member. Dmitry Menchaca MD * Nilton Zhang RN - 05/21/2023 7:47 AM EDT The patient is here today for follicular ultrasound and blood work. The patient reports no problemsor complaints. Ultrasound and blood will be reviewed by the physician, the flow sheet will be updated and instructions will be communicated to the patient. Nilton Zhang RN May 21, 2023 7:48 AM documented in this encounterHolzer Hospital08-30-2023 History of Present illness Narrative* Nilton Zhang RN - 05/13/2023 2:52 PM EDT RN called patient, name and verified. Plan given for IVF cycle per physician, see flowsheet fordetails. MyChart message sent. Medications reviewed and verified, instructions given. Patient denies any questions or concerns. Message sent to scheduling pool for next appt. Nilton Zhang RN May 13, 2023 2:52 PM * Nilton Zhang RN - 05/13/2023 7:51 AM EDT The patient is here today for follicular ultrasound and blood work. The patient reports no problemsor complaints. Ultrasound and blood will be reviewed [...] 13, 2023 7:51 AM documented in this encounterHolzer Hospital08-29-2023 Miscellaneous Notes* Telephone Encounter - Emelia Rust RN - 05/12/2023 3:21 PM EDT Returned phone call. Patient states she needs metformin reordered, she also needs to schedule baseline. Metformin reordered per patient request. Baseline appointment scheduled for 05/13 at 0715 at [place]. Emelia Rust RN * Telephone Encounter - Lila Heart Ma - 05/12/2023 8:46 AM EDT Patient calling again for refill of Metformin she requested on 04-23 she is out of medication. Also on day 2 today. Please call today. * Telephone Encounter - Juana Liu - 05/11/2023 2:08 PM EDT Patient called stating she started her cycle today. Also needs a refill on a medication that she requested back on 04/23 documented in this encounterHolzer Hospital08-29-2023 Miscellaneous Notes* Telephone Encounter - Sushila Barbour - 05/12/2023 2:38 PM EDT Patient would like a call back * Telephone Encounter - Ana Sotomayor - 05/12/2023 12:39 PM EDT Pt is cd2 needs to schedule baseline and prescriptions need to be filled documented in this encounterHolzer Hospital08-08-2023 History of Present illness Narrative* Ivy Gardner - 04/21/2023 11:[address] Menchaca: okay to proceed SO cycle: need at least 1 nature oocyte on RIGHT to proceed with trigger each month. FSH ordered to mdr. Pt will call with cd1 to schedule SO baseline. Ivypollo Gardner April 21, 2023 11:11 AM documented in this encounterHolzer Hospital07-21-2023 History of Present illness Narrative* Simran Shin RT(R) - 04/03/2023 1:30 PM EDT Radiology Service Progress Note PATIENT NAME: Aleida Arizmendi DATE OF SERVICE: April 03, 2023 TIME: 2:03 PM PATIENT IDENTITY VERIFICATION COMPLETED USING TWO (2) IDENTIFIERS: Name and Date of confirmedby patient verbally. FALL SCREENING: Has the patient had 2 falls in the last year or 1 fall with injury or currently using an Ambulatory Assistive Device (Walker, Cane, Wheelchair, Crutches, etc.)? No PATIENT GENDER DATA: Female. status: : No status: NO. PATIENT RELEVANT IMPLANT DATA REVIEWED: Yes RADIOLOGY DEPARTMENT: General X-ray: Exam(s) Completed: HSG PERIPHERAL IV DATA: Not applicable SIGNED BY: RT Júnior(R) April 03, 2023 2:03 PM documented in this encounterHolzer Hospital06-26-2023 History of Present illness Narrative* Ar Hennessy RN - 03/09/2023 10:22 AM EDT Aleida Arizmendi is here today for a gonadotropin [...] Pharmacy- [facility]- n/a Preferred Monitoring site: [place] ([facility] Carney) [facility] Episode created: Yes Super ovulation # 1 G 0 P 0 AMH- 12.5 BMI- 43.1 Dx- PCOS Uterine Eval- needs HSG Blood type- needs drawn Semen Analysis- needs completed Rubella- Unknown Varicella- Unknown WW- 03/06 / PAP- 02/03 LMP- doesn't get cycles / Cycles- irregular Partner: Arun Arimzendi / MRN: needs to register To Do List: Needs to fax annual records Needs blood drawn Will schedule HSG with NMP after taking provera Partner needs to register Once registered will need SA Ar Hennessy RN March 09, 2023 11:21 AM documented in this encounterHolzer Hospital06-12-2023 Miscellaneous Notes* Telephone Encounter - Khurram Zendejas RN - 02/23/2023 2:42 PM EDT Called the pharmacy and spoke with a pharmacist I advised clomid is correct dose Khurram Zendejas RN February 23, 2023 2:44 PM * Telephone Encounter - Juana Liu - 02/23/2023 2:06 PM EDT [facility] in [facility] called in regard to clarification on a medication they received. documented in this encounterHolzer Hospital06-12-2023 Miscellaneous Notes* Telephone Encounter - Khurram Zendejas RN - 02/23/2023 2:34 PM EDT Called the patient she verified her name and date of I advised the ivf nurses can not prescribe fsh until a nurse teach done patient verbalized an understanding Khurram Zendejas RN February 23, 2023 2:35 PM * Telephone Encounter - Juana Liu - 02/23/2023 2:32 PM EDT Patient returned call to office. * Telephone Encounter - Khurram Zendejas RN - 02/23/2023 1:55 PM EDT Called the patient there was no answer Left a message to call the office Khurram Zendejas RN February 23, 2023 1:55 PM * Telephone Encounter - Khurram Zendejas RN - 02/23/2023 1:29 PM EDT Needs fsh sent to pharmacy Routing to [...] and future treatment options documented in this encounterHolzer Hospital06-12-2023 Miscellaneous Notes* Telephone Encounter - Jonelle Daley - 02/23/2023 11:09 AM EDT S/O CLEARED PER PATIENT PLAN COVERS HER US AND SHE IS DOING A TI NO IUI SCHEDULED AT THIS TIME PT IS CLEARED THANK YOU * Telephone Encounter - Jonelle Daley - 02/23/2023 11:00 AM EDT Bart Mckay Thank you,will do. I will advise once payment is collected. * Telephone Encounter - Jonelle Daley - 02/23/2023 9:39 AM EDT Pt is upset that communication with clinical [...] follow up with this patient. Thank you * Telephone Encounter - Jonelle Daley - 02/20/2023 4:49 PM EDT IVF PACKAGE#1 NOT CLEARED PLAN HAS NO INFERTILITY BENEFIT CALLED PT [facility]MM ALSO SENT MYCHART MESSAGE AND ESTIMATE LETTER. THANK YOU * Telephone Encounter - Juana Liu - 02/20/2023 10:43 AM EDT Patient called wanting to get the authorization process started for IVF. documented in this encounterHolzer Hospital04-07-2023 History of Present illness Narrative* Heena Orr APRN.CNP - 12/19/2022 4:30 PM EDT Aleida Arizmendi is here today for a midcycle scan. Lead follicle: nothing larger than 10mm Plan: cancel cycle, follow up with Dr. Althea Orr APRN.CNP December 19, 2022 4:30 PM documented in this encounterHolzer Hospital03-21-2023 Miscellaneous Notes* Telephone Encounter - Heena Orr APRN.CNP - 12/02/2022 8:49 AM EDT Spoke with Aleida to schedule midcycle scan. LMP 11/30 Plan: Let 10/Dexa/Midycle/Trigger/TI #2 Verified that patient has medications needed for this cycle. Episode started, cycle flow sheet filled out. Scheduled midcycle scan: 12/15 Heena Orr APRN.CNP December 02, 2022 8:49 AM [...] seven days of my reply. See the Xoft message reply for my assessment and plan. I spent a total of 10 minutes reviewing the patient's prior medical records and current request formedical advice, prescribing medications or ordering tests (if applicable), replying to the patient,and documenting the encounter. documented in this encounterHolzer Hospital03-17-2023 Miscellaneous Notes* Telephone Encounter - Sushila Levy APRN.CNP - 11/28/2022 3:20 PM EDT The following approved medication requests have been transmitted electronically. Requested Prescriptions Signed Prescriptions Disp Refills metFORMIN (GLUCOPHAGE) 850 mg tablet 60 tablet 2 Sig: Take 1 tablet by mouth twice daily with meals. Authorizing Provider: SUSHILA LEVY APRN.CNP November 28, 2022 3:21 PM * Telephone Encounter - Rukhsana Klein - 11/28/2022 3:13 PM EDT [facility] is pharmacy, please follow up with patient when called in . documented in this encounterHolzer Hospital03-07-2023 Miscellaneous Notes* Telephone Encounter - Sushila Levy APRN.CNP - 11/18/2022 10:57 AM EST This patient gave consent to this Medical [...] seven days of my reply. See the Xoft message reply for my assessment and plan. I spent a total of 5 minutes reviewing the patient's prior medical records and current request for medical advice, prescribing medications or ordering tests (if applicable), replying to the patient, and documenting the encounter. documented in this encounterHolzer Hospital02-27-2023 History of Present illness Narrative* Sushila Levy APRN.CNP - 11/10/2022 12:21 PM EST Aleida Arizmendi is here today for a midcycle scan. Lead follicle: 16 Plan: trigger 11/12 for TI Sushila Levy APRN.CNP November 10, 2022 12:21 PM documented in this encounterHolzer Hospital02-24-2023 History of Present illness Narrative* Sushila Levy APRN.CNP - 11/07/2022 10:20 AM EST Aleida Ugo is here today for a midcycle scan. Lead follicle: 12 Plan: repeat 11/10 Sushila Levy APRN.CNP November 07, 2022 10:20 AM Please schedule the patient for the following- Location: [place] Provider: Nurse Visit type: Monitoring Reason for visit/appointment notes: Monitoring Date: 11/10 Time (requested): 0730 If slot is full, please schedule the closest open slot. Call to patient needed: no documented in this encounterHolzer Hospital02-13-2023 Miscellaneous Notes* Telephone Encounter - Kobi Weiner PA-C - 10/27/2022 3:28 PM EST Called the pt back. Provided information on the plan:Let 10/Dexa/Midycle/Trigger/TI. Pt can't come in on 11/06, so will be scanned on 11/07. Please schedule the patient for the following- Location: [place] Provider: Kobi Weiner PA-C Visit type: Midcycle scan Reason for visit/appointment notes: Follicular scan Date: 11/07 Time (requested): 7:30 If slot is full, please schedule the closest open slot. Call to patient needed: no Kobi Weiner PA-C October 27, 2022 3:30 PM * Telephone Encounter - Juana Liu - 10/27/2022 3:16 PM EST Patient returned call to office. * Telephone Encounter - Kobi Weiner PA-C - 10/27/2022 1:38 PM EST Plan from 07/25/22. PLAN: MET 1,000 mg BID LET 10 mg CD 3-7 DEX 0.5 mg CD 3-OPK+ Follicle US TIC Maximum 3-4 ovulatory cycles; thereafter, if no conception has occurred, schedule a virtual visit to discuss additional work up, if any, and future treatment options Unable to reach patient by phone, sent Xoft message with instructions. Let 10/Dexa/Midycle/Trigger/TI Please schedule the patient for the following- Location: [place] Provider: Kobi Weiner PA-C Visit type: Follicular scan Reason for visit/appointment notes: Follicular Scan Date: 11/06 Time (requested): any If slot is full, please schedule the closest open slot. Call to patient needed: yes. Also asked the pt to call us. Needs financial clearance for Midcycle scan Kobi Weiner PA-C October 27, 2022 1:43 PM * Telephone Encounter - Khurram Zendejas RN - 10/27/2022 12:30 PM EST Called the patient she verified her name and date of Patient last period was 10-26-22 Patient needs mid cycle scan Patient is going to [place] location Patient usually ovulates 19-22 Patient was advised we usually done 10-12 Patient thinks it needs to be done day 15 Patient wants first thing in the morning Patient has letrozole Needs ovidrel Routing to Non [place] ivf Pool Khurram Zendejas RN October 27, 2022 12:33 PM * Telephone Encounter - Greer Klein - 10/27/2022 12:25 PM EST Ret call to set up midcycle * Telephone Encounter - Khurram Zendejas RN - 10/27/2022 12:19 PM EST Called the patient there was no answer Left a message to call the office Khurram Zendejas RN October 27, 2022 12:19 PM * Telephone Encounter - Greer Klein - 10/27/2022 11:59 AM EST Pt is on cd2 wants to schedule midcycle us documented in this encounterHolzer Hospital01-17-2023 Miscellaneous Notes* Telephone Encounter - Khurram Zendejas RN - 09/30/2022 7:41 AM EST See phone call Khurram Zendejas RN September 30, 2022 7:41 AM documented in this encounterHolzer Hospital01-16-2023 Miscellaneous Notes* Telephone Encounter - Sushila Levy APRN.CNP - 09/29/2022 12:15 PM EST Spoke with Aleida, States she had an ultrasound at an [...] set up monitored cycle. Will come to [place] for future scans. Sushila Levy APRN.CNP September 29, 2022 12:30 PM * Telephone Encounter - Greer Trejo Pss - 09/29/2022 11:44 AM EST Pt upset she hasn't heard anything reg her us and next steps documented in this encounterHolzer Hospital01-04-2023 Miscellaneous Notes* Telephone Encounter - Kobi Weiner PA-C - 09/17/2022 10:03 AM EST Images from the original note were not [...] 17, 2022 10:08 AM documented in this encounterHolzer Hospital04-13-2022 Consult note* Dmitry Menchaca MD - 12/25/2021 1:36 PM EDT VIRTUAL VISIT PROGRESS NOTE This is a virtual visit using Xoft video visit. It required patient-provider interaction for themedical decision making as documented below. Date of Consult: 12/25/2021 Consultation Requested By: Self-refered Aleida Arizmendi is a 36 year old female presenting with the following history: HISTORY OF PRESENT ILLNESS: Aleida Arizmendi is a 36 year old female [...] done OPK (Ovulation Predictor Kit) Abnormal Ovarian [place] Normal Saline Ultrasound Not done Semen Analysis [...] which included preparing to see the patient, [id number] patient care, completing clinical documentation, obtaining and/or reviewing separately obtained history, counseling and educating the patient/family/caregiver, ordering medications, renetta ts, or procedures, independently interpreting results (not separately reported) and communicating results to the patient/family/caregiver. Dmitry Menchaca MD December 25, 2021 1:40 PM documented in this encounterHolzer HospitalEvalubeebe [facility] note* Diagnosis Insulin resistance- Primary Dysmetabolic Syndrome X Problems with ovulation Unspecified noninflammatory disorder of ovary, fallopian tube, and broad ligament documented in this encounter [facility]* Diagnosis Treatment plan provided- Primary documented in this encounter [facility]* Diagnosis Encounter for fertility planning- Primary Other specified procreative management documented in this encounter [facility]* Diagnosis Missed - Primary documented in this encounter [facility]* Diagnosis Encounter for fertility planning- Primary Other specified procreative management documented in this encounter [facility]* Diagnosis Encounter for fertility planning- Primary Other specified procreative management Disorder of ovulation Unspecified noninflammatory disorder of ovary, fallopian tube, and broad ligament [facility] Diagnosis Female infertility- Primary Female infertility of unspecified origin Encounter for fertility planning Other specified procreative management [facility] Diagnosis Female infertility Female infertility of unspecified origin [facility] Diagnosis Treatment plan provided- Primary documented in this encounter [facility]* Diagnosis Insulin resistance Dysmetabolic Syndrome X [facility] Diagnosis Encounter for fertility testing- Primary Fertility testing [facility] Diagnosis Encounter for fertility testing- Primary Fertility testing Immunity to varicella determined by serologic test Immunity to rubella determined by serologic test documented in this encounter [facility]* Diagnosis Negative test- Primary examination or test, negative result documented in this encounter [facility]* Diagnosis Insulin resistance Dysmetabolic Syndrome X documented in this encounter [facility]* Diagnosis Encounter for fertility testing- Primary Fertility testing documented in this encounter [facility]* Diagnosis Female infertility- Primary Female infertility of unspecified origin Encounter for fertility testing Fertility testing documented in this encounter [facility] note* Diagnosis Infertility, female- Primary Female infertility of unspecified origin Encounter for fertility testing Fertility testing documented in this encounter [facility] note* Diagnosis Encounter for fertility testing Fertility testing documented in this encounter [facility] note* Diagnosis Primary female infertility Female infertility of unspecified origin documented in this encounter [facility] note* Diagnosis Primary female infertility Female infertility of unspecified origin documented in this encounter [facility] note* Diagnosis Primary female infertility Female infertility of unspecified origin documented in this encounter [facility] note* Diagnosis H/O penicillin-type antibiotic allergy- Primary Personal history of allergy to penicillin documented in this encounter [facility] note* Diagnosis Primary female infertility Female infertility of unspecified origin documented in this encounter [facility] note* Diagnosis Allergy to drug- Primary Other drug allergy Dry nares Other diseases of nasal cavity and sinuses Seasonal allergic rhinitis due to pollen documented in this encounter [facility] note* Diagnosis Female infertility- Primary Female infertility of unspecified origin documented in this encounter [facility] note* Diagnosis Primary female infertility- Primary Female infertility of unspecified origin documented in this encounter [facility] note* Diagnosis Female infertility Female infertility of unspecified origin documented in this encounter [facility] note* Diagnosis Female infertility Female infertility of unspecified origin documented in this encounter [facility] noteNo assessment information availableWilson Health Work Phone: Evaluation note* Diagnosis Encounter for supervision of normal first in first trimester documented in this encounter [facility] note* Diagnosis Encounter to determine viability of , fetus 1 of multiple gestation- Primary documented in this encounter [facility] note* Diagnosis Non-viable - Primary Other abnormal products of conception documented in this encounter [facility] note* Diagnosis Missed - Primary Missed documented in this encounter [facility] note* Diagnosis Encounter for test, result positive- Primary examination or test, positive result Miscarriage Unspecified spontaneous without mention of complication documented in this encounter [facility] note* Diagnosis Post-operative state- Primary Other postprocedural status documented in this encounter [facility] note* Diagnosis Female infertility- Primary Female infertility of unspecified origin [facility] Female infertility Female infertility of unspecified origin documented [facility] encounter [facility]* Diagnosis Female infertility Female infertility of unspecified origin documented [facility]* Diagnosis Encounter for Papanicolaou smear for [...] syndrome) Polycystic ovaries documented [facility] this encounter [facility]* Diagnosis Encounter for fertility testing- Primary Fertility testing documented [facility]* Diagnosis Androgen excess- Primary Other nonspecific finding on examination of urine Fertility testing documented [facility]* Diagnosis Cervical high risk HPV (human papillomavirus) test positive- Primary Cervical high risk human papillomavirus (HPV) DNA test positive documented [facility]* Diagnosis Female infertility- Primary Female infertility of unspecified origin documented [facility]* Diagnosis Irregular menses- Primary Irregular menstrual cycle Female infertility Female infertility of unspecified origin documented [facility]* Diagnosis Pre-procedure lab exam- Primary Pre-procedural laboratory examination Fertility testing documented [facility]* Diagnosis Encounter for fertility testing- Primary Fertility testing documented [facility]* Diagnosis Pre-operative laboratory examination- Primary Pre-procedural laboratory examination Endometrial polyp Polyp of corpus uteri Encounter for fertility testing Fertility testing documented [facility]* Diagnosis Female infertility Female infertility of unspecified origin documented [facility]* Diagnosis Primary female infertility Female infertility of unspecified origin [facility]* Diagnosis Primary female infertility Female infertility of unspecified origin [facility]* Diagnosis Primary female infertility Female infertility of unspecified origin [facility] Diagnosis Primary female infertility Female infertility of unspecified origin [facility]* Diagnosis Female infertility- Primary Female infertility of unspecified origin [facility]* Diagnosis Female infertility Female infertility of unspecified origin documented [facility]* Diagnosis Female infertility Female infertility of unspecified origin [facility] Diagnosis Female infertility- Primary Female infertility of unspecified origin documented in this encounter [facility] note* Diagnosis Female infertility Female infertility of unspecified origin documented in this encounter [facility] note* Diagnosis Female infertility- Primary Female infertility of unspecified origin documented in this encounter [facility] note* Diagnosis Female infertility Female infertility of unspecified origin documented in this encounter [facility] note* Diagnosis Female infertility Female infertility of unspecified origin documented in this encounter [facility] note* Diagnosis Female infertility- Primary Female infertility of unspecified origin documented in this encounter [facility] note* Diagnosis PCOS (polycystic ovarian syndrome)- Primary Polycystic ovaries Midline low back pain without sciatica, unspecified chronicity [facility] Diagnosis Female infertility Female infertility of unspecified origin documented in this encounter [facility] note* Diagnosis Female infertility Female infertility of unspecified origin documented in this encounter [facility] note* Diagnosis Female infertility Female infertility of unspecified origin documented in this encounter [facility] note* Diagnosis NIKO (obstructive sleep apnea)- Primary Obstructive sleep apnea (adult) (pediatric) CPAP use counseling Obesity, Class III, BMI 40-49.9 (morbid obesity) ([facility]) Noncompliance with CPAP treatment [facility]* Diagnosis Routine general medical examination at a health care facility- Primary [facility]* Diagnosis PCOS (polycystic ovarian syndrome)- Primary Polycystic ovaries Hypertriglyceridemia Pure hyperglyceridemia [facility]* Diagnosis Other acute sinusitis, recurrence not specified- Primary [facility]* Diagnosis Routine general medical examination at a health care facility- Primary Inclusion cyst Sebaceous cyst PCOS (polycystic ovarian syndrome) Polycystic ovaries [facility]* Diagnosis Medication refill- Primary Issue of repeat prescriptions documented in this encounter [facility] note* Diagnosis Encounter for fertility testing- Primary Fertility testing Female infertility Female infertility of unspecified origin Female infertility- Primary Female infertility of unspecified origin Encounter for fertility testing Fertility testing [facility] Diagnosis Female infertility- Primary Female infertility of unspecified origin Encounter for fertility testing Fertility testing documented [facility] encounter [facility]* Diagnosis Female infertility- Primary Female infertility of unspecified origin Encounter for fertility testing Fertility testing documented [facility] this encounter [facility]* Diagnosis Inclusion cyst- Primary Sebaceous cyst [facility] Diagnosis Encounter for fertility testing Fertility testing documented [facility] this encounter [facility]* Diagnosis Encounter for fertility testing Fertility testing [facility] Diagnosis Inclusion cyst- Primary Sebaceous cyst [facility]* Diagnosis Encounter for test, result positive (HCC)- Primary examination or test, positive result [facility]* Diagnosis Encounter for test, result positive (HCC)- Primary examination or test, positive result [facility]* Diagnosis Encounter for test, result positive (HCC) examination or test, positive result [facility]* Diagnosis Encounter for test, result positive (HCC) examination or test, positive result [facility]* Diagnosis Miscarriage (HCC) [O03.9]- Primary Unspecified spontaneous without mention of complication [facility] Dis[facility] instructions Additional Instructions Please keep your scheduled appointment with your ultrasound next week.[facility] Work Phone: InstructionsNot on filedocumented in this encounter [facility] MMRGlobal SystemInstructionsNot on filedocumented in this encounter [facility]* Attachments The following attachments cannot be sent through Care Everywhere. * Yearly Physical for Adults (Macedonian) [facility]* Attachments The following attachments cannot be sent through Care Everywhere. * Low Carbohydrate Diet (Macedonian) * High triglycerides (Macedonian) documented in [facility] SystemInstructionsNot on file documented in this encounterPro[facility] SystemInstructionsNot on file documented in this encounterPro[facility] MMRGlobal SystemInstructionsNot on file documented in this encounterPro[facility] SystemInstructionsNot on file documented in this encounterProK[facility] SystemInstructionsNot on file documented in this encounterProK[facility] SystemInstructionsNot on file documented in this encounterProSelect Medical [facility] HospitalReason for referral (narrative)* Diagnostic Procedure Only (Routine) - Pending Review Specialty Diagnoses / Procedures Referred By Contac t Referred To Contact [facility] Diagnoses Encounter for fertility planning Procedures FOLLICULAR US WHI US PELVIC NONOBSTETRIC IMAGE DCMTN LIMITED/F/U Kobi Weiner PA-C [address] [place] [address] [facility] [address] [place] [address] Referral ID Status Reason Start Date Expiration Date Visits Requested Visits Authorized [id number] Pending Review Auto-Generat ed Referral 10/27/2022 10/27/2023 1 1 [facility] for [facility] (narrative)* Diagnostic Procedure Only (Routine) - Authorized Specialty Diagnoses / Procedures Referred By Contac t Referred To Contact [facility] Diagnoses Female infertility Procedures FOLLICULAR US I US PELVIC NONOBSTETRIC IMAGE DCMTN LIMITED/F/U Sushila Levy APRN.[facility] [facility] [address] [facility] [address] [address] [place] [address] [address] Referral ID Status Reason Start Date Expiration Date Visits Requested Visits Authorized [id number] Authorized Auto-Generat ed Referral 11/07/2022 11/07/2023 1 1 [facility] for referral (narrative)* Diagnostic Procedure Only (Routine) - Authorized Specialty Diagnoses / Procedures Referred By Contac t Referred To Contact [facility] Diagnoses Encounter for fertility testing Procedures FOLLICULAR US WHI US PELVIC NONOBSTETRIC IMAGE DCMTN LIMITED/F/U Heena Orr APRN.[facility] [facility] [address] [facility] [address] [place] [address] [address] Referral ID Status Reason Start Date Expiration Date Visits Requested Visits Authorized [id number] Authorized Auto-Generat ed Referral 12/02/2022 12/02/2023 1 1 [facility] for referral (narrative)* Diagnostic Procedure Only (Routine) - Pending Review Specialty Diagnoses / Procedures Referred By Contac t Referred To Contact XR IMAGING Diagnoses Encounter for fertility testing Procedures XR HYSTEROSALPINGOGRAM CATH & SALINE/CONTRAST SONOHYSTER/[place] [address] [place] [address] Xr Imaging Referral ID Status Reason Start Date Expiration Date Visits Requested Visits Authorized [id number] Pending Review Auto-Generat ed Referral 03/09/2023 04/07/2024 1 1 [facility] for referral (narrative)* Diagnostic Procedure Only (Routine) - Pending Review Specialty Diagnoses / Procedures Referred By Contac t Referred To Contact [facility] Diagnoses Encounter for fertility testing Procedures FOLLICULAR US WHI US PELVIC NONOBSTETRIC IMAGE JOSSE LIMITED/F/U Leonel Cabezas APRN.CNP [address] [place] [address] [address] Referral ID Status Reason Start Date Expiration Date Visits Requested Visits Authorized [id number] Pending Review Auto-Generat ed Referral 05/12/2023 05/11/2024 6 1 [facility] for referral (narrative)* Diagnostic Procedure Only (Routine) - Authorized Specialty Diagnoses / Procedures Referred By Contac t Referred To Contact [facility] Diagnoses Female infertility Procedures FOLLICULAR US WHI US PELVIC NONOBSTETRIC IMAGE LENYTShaka LIMITED/F/U Leonel Cabezas APRN.[facility] [address] [place] [address] [address] Referral ID Status Reason Start Date Expiration Date Visits Requested Visits Authorized [id number] Authorized Auto-Generat ed Referral 08/18/2023 08/17/2024 6 1 [facility] Diagnostic Procedure Only (Routine) - Authorized Specialty Diagnoses / Procedures Referred By Contac t Referred To Contact [facility] Diagnoses Encounter to determine viability of , fetus 1 of multiple gestation Procedures OBSTETRIC ULTRASOUND WHI US PREG UTERUS AFTER 1ST TRIMEST GESTATION Provider, Heat Set Operator Transcribe [address] [address] Referral ID Status Reason Start Date Expiration Date Visits Requested Visits Authorized [id number] Authorized Auto-Generat ed Referral 10/22/2023 10/21/2024 1 1 [facility] for referral (narrative)* Diagnostic Procedure Only (Routine) - Pending Review Specialty Diagnoses / Procedures Referred By Contac t Referred To Contact [facility] Diagnoses Female infertility Procedures FOLLICULAR US WHI US PELVIC NONOBSTETRIC IMAGE DCMTN LIMITED/F/U Leonel Cabezas APRN.[facility] [place] [address] [place] [address] [address] Referral ID Status Reason Start Date Expiration Date Visits Requested Visits Authorized [id number] Pending Review Auto-Generat ed Referral 12/29/2023 12/28/2024 6 1 [facility] Diagnostic Procedure Only (Routine) - Pending Review Specialty Diagnoses / Procedures Referred By Contac t Referred To Contact [facility] Diagnoses Fertility testing Procedures SONOHYSTEROGRAPHY (SIS) US [facility] SALINE INFUS SONOHYSTEROGRAPHY W/[place] [address] [place] [address] [facility] [address] [place] [address] Referral ID Status Reason Start Date Expiration Date Visits Requested Visits Authorized [id number] Pending Review Auto-Generat ed Referral 02/23/2024 02/22/2025 1 1 [facility] for referral (narrative)* Diagnostic Procedure Only (Routine) - Pending Review Specialty Diagnoses / Procedures Referred By Contac t Referred To Contact [facility] Diagnoses Female infertility Procedures FOLLICULAR US [facility] US PELVIC NONOBSTETRIC IMAGE [facility]/U Kobi Weiner PA-C [address] [place] [address] [address] [address] Referral ID Status Reason Start Date Expiration Date Visits Requested Visits Authorized [id number] Pending Review Auto-Generat ed Referral 03/09/2024 03/09/2025 6 1 [facility] for referral (narrative)* Diagnostic Procedure Only (Routine) - Authorized Specialty Diagnoses / Procedures Referred By Contac t Referred To Contact [facility] Diagnoses Female infertility Procedures FOLLICULAR US I US PELVIC NONOBSTETRIC IMAGE DCMTN LIMITED/F/U Sushila Levy APRN.[facility] [address] [facility] [address] [place] [address] [facility] [address] [place] [address] Referral ID Status Reason Start Date Expiration Date Visits Requested Visits Authorized [id number] Authorized Auto-Generat ed Referral 07/04/2025 4 1 [facility] for referral (narrative)* Diagnostic Procedure Only (Routine) - New Request Specialty Diagnoses / Procedures Referred By Kt herbert Referred To Contact [facility] Diagnoses Female infertility Procedures FOLLICULAR US [facility] US PELVIC NONOBSTETRIC IMAGE JOSSE LIMITED/F/U Sushila Levy APRN.[facility] [facility] [address] [facility] [address] [place] [address] [facility] [address] [place], [place] [address] [address] Referral ID Status Reason Start Date Expiration Date Visits Requested Visits Authorized [id number] New Request Auto-Generat ed Referral 08/08/2025 4 1 [facility] for referral (narrative)* Consultation (Routine) - Pending Review Specialty Diagnoses / Procedures Referred By Kt herbert Referred To Contact Nutrition Diagnoses PCOS (polycystic ovarian syndrome) Hypertriglyceridemia David Mckeon MD [address] [facility] [address] [facility] [address] [place] [address] Referral ID Status Reason Start Date Expiration Date V isits Requested Visits Authorized [id number] Pending Review 11/20/2023 11/19/2024 1 1 Scheduling Instructions Low carb diet for hypertriglyceridemia [facility] for visit Narrative* Diagnostic Procedure Only (Routine) - Closed Specialty Diagnoses / Procedures Referred By Kt herbert Referred To Contact [facility] Diagnoses Female infertility Procedures FOLLICULAR US I US PELVIC NONOBSTETRIC IMAGE JOSSE LIMITED/F/U Sushila Levy APRN.[facility] [address] [facility] [address] [place] [address] [facility] [address] [place] [address] Referral ID Status Reason Start Date Expiration Date V isits Requested Visits Authorized [id number] Closed Auto-Generate d Referral 11/07/2022 11/07/2023 1 1 [facility] for visit Narrative* Diagnostic Procedure Only (Routine) - Closed Specialty Diagnoses / Procedures Referred By Contac t Referred To Contact [facility] Diagnoses Female infertility Procedures FOLLICULAR US I US PELVIC NONOBSTETRIC IMAGE DCMTN LIMITED/F/U Sushila Levy, JOURNEYMAN PATTERNMAKER.[facility] [address] [facility] [address] [place] [address] [facility] [address] [place] [address] Referral ID Status Reason Start Date Expiration Date V isits Requested Visits Authorized [id number] Closed Auto-Generate d Referral 12/15/2022 12/15/2023 1 1 [facility] for visit Narrative* Diagnostic Procedure Only (Routine) - Closed Specialty Diagnoses / Procedures Referred By Contac t Referred To Contact [facility] Diagnoses Encounter for fertility testing Procedures FOLLICULAR US [facility] US PELVIC NONOBSTETRIC IMAGE DCMTN LIMITED/F/U Leonel Cabezas, JOURNEYMAN PATTERNMAKER.[facility] [facility] [address] [place] [address] [address] Referral ID Status Reason Start Date Expiration Date V isits Requested Visits Authorized [id number] Closed Auto-Generate d Referral 05/13/2023 09/13/2023 6 1 [facility] for visit Narrative* Diagnostic Procedure Only (Routine) - Closed Specialty Diagnoses / Procedures Referred By Contac t Referred To Contact [facility] Diagnoses Primary female infertility Procedures FOLLICULAR US [facility] US PELVIC NONOBSTETRIC IMAGE DCMTN LIMITED/F/U Radha Gilliam MD [address] [place] [address] [address] [place] [address] Referral ID Status Reason Start Date Expiration Date V isits Requested Visits Authorized [id number] Closed Auto-Generate d Referral 06/17/2023 06/16/2024 6 1 [facility] for visit Narrative* Diagnostic Procedure Only (Routine) - Closed Specialty Diagnoses / Procedures Referred By Contac t Referred To Contact [facility] Diagnoses Female infertility Procedures FOLLICULAR US I US PELVIC NONOBSTETRIC IMAGE DCMTN LIMITED/F/U Sushila Levy, ANGELITA.[facility] [address] [facility] [address] [place] [place] [address] [address] Referral ID Status Reason Start Date Expiration Date V isits Requested Visits Authorized [id number] Closed Auto-Generate d Referral 08/08/2024 08/08/2025 4 1 [facility] for visit Narrative* Diagnostic Procedure Only (Routine) - Closed Specialty Diagnoses / Procedures Referred By Contac t Referred To Contact [facility] Diagnoses Female infertility Procedures FOLLICULAR US [facility] US PELVIC NONOBSTETRIC IMAGE DCMTShaka LIMITED/F/U Sushila Levy, JOURNEYMAN PATTERNMAKER.[facility]ATE [address] [facility] [address] [place] [address] Phone: tel: fax: [address] [place] [address] Referral ID Status Reason Start Date Expiration Date V isits Requested Visits Authorized [id number] Closed Auto-Generate d Referral 08/08/2024 08/08/2025 4 1 [facility] for visit Narrative* Diagnostic Procedure Only (Routine) - Closed Specialty Diagnoses / Procedures Referred By Contac t Referred To Contact [facility] Diagnoses Encounter for fertility testing Procedures FOLLICULAR US [facility] US PELVIC NONOBSTETRIC IMAGE DCMTN LIMITED/F/U Leonel Cabezas, ANGELITA.[facility] [address] [place] [address] Phone: tel: fax: [address] [address] Referral ID Status Reason Start Date Expiration Date V isits Requested Visits Authorized [id number] Closed Auto-Generate d Referral 11/14/2024 11/11/2025 6 1 [facility] for visit Narrative* Diagnostic Procedure Only (Routine) - Closed Specialty Diagnoses / Procedures Referred By Contac t Referred To Contact [facility] Diagnoses Encounter for test, result positive (HCC) Procedures OBSTETRIC ULTRASOUND WHI OBSTETRIC ULTRASOUND WHI US PREG UTERUS AFTER 1ST TRIMEST GESTATION Kobi Weiner PA-C [address] [place] [address] Phone: tel: fax: [address] [address] Referral ID Status Reason Start Date Expiration Date V isits Requested Visits Authorized [id number] Closed Auto-Generate d Referral 12/16/2024 12/16/2025 1 1 [facility]* Diagnostic Procedure Only (Routine) - Closed Specialty Diagnoses / Procedures Referred By Kt herbert Referred To Contact [facility] Diagnoses Encounter for test, result positive (HCC) Procedures OBSTETRIC ULTRASOUND WHI US PREG UTERUS AFTER 1ST [place] [address] [place] [address] Phone: tel: fax: [address] [address] Referral ID Status Reason Start Date Expiration Date V isits Requested Visits Authorized [id number] Closed Auto-Generate d Referral 12/30/2024 12/30/2025 1 1 [facility] Summary Purpose Family History Relationship Condition [...] cyst removed-check for infection November 122024 4:52pm Chief Complaint Admit Date cyst removed-check for infection November 122024 4:52pm Unknown January 24, 2025 8:04a m Reason for Visit Admit Date Visit for wound check November 25, 2024 4 :52pm Reason for Referral Specialty Diagnoses / Procedures Referred By Kt herbert Referred To Contact [facility] Diagnoses Encounter for fertility testing Procedures OFFICE HYSTEROSCOPY HYSTEROSCOPY BX ENDOMETRIUM&/POLYPC W/WO D&C HYSTEROSCOPY, DIAGNOSTIC ([place] [address] [place] [address] [address] Referral ID Status Reason Start Date Expiration Date Visits Requested Visits Authorized [id number] Waiting for Response Benefit Check 05/05/2024 05/05/2025 2 1 Specialty Diagnoses / Procedures Referred By Kt t Referred To Contact [facility] Diagnoses Female infertility Procedures FOLLICULAR US WHI US PELVIC NONOBSTETRIC IMAGE DCMTN LIMITED/F/[place] [address] [place] [address] [facility] [address] [place] [address] Referral ID Status Reason Start Date Expiration Date Visits Requested Visits Authorized [id number] New Request Benefit Check 09/09/2025 3 1 Additional Source Comments INFORMATION SOURCE (unrecogn ized section and content) DATE CREATED AUTHOR 09/21/2021 [facility] DATE CREATED AUTHOR AUTHOR'S ORGANIZ ATION 01/11/2024 [facility] DATE CREATED AUTHOR AUTHOR'S ORGANIZ ATION 04/13/2024 [employer] DATE CREATED AUTHOR AUTHOR'S ORGANIZ ATION 12/01/2024 [facility] DATE CREATED AUTHOR AUTHOR'S ORGANIZ ATION 12/07/2024 [facility] DATE CREATED AUTHOR AUTHOR'S ORGANIZ ATION 01/11/2025 [facility] DATE CREATED AUTHOR AUTHOR'S ORGANIZ ATION 01/18/2025 [facility] DATE CREATED AUTHOR AUTHOR'S ORGANIZ ATION 01/19/2025 [facility] DATE CREATED AUTHOR AUTHOR'S ORGANIZ ATION 01/25/2025 [facility] Source Comments (unrecognize d section and content) In the event this informatio n is protected by the Federal Confidentiality of Alcohol and Drug Abuse Patient Records regulations: The Federal rules restrict any use of the information to criminally investigate or prosecute any alcohol or drug abuse patient.[facility] Hospital[facility] the event this information is protected by the Federal Confidentiality of Alcohol and Drug Abuse Patient Records regulations: The Federal rules restrict any use of the information to criminally investigate or prosecute any alcohol or drug abuse patient.[facility] HospitalIn the event this information is protected by the Federal Confidentiality of Alcohol and Drug Abuse Patient Records regulations: The Federal rules restrict any use of the information to criminally investigate or prosecute any alcohol or drug abuse patient.[facility] HospitalIn the event this information is protected by the Federal Confidentiality of Alcohol and Drug Abuse Patient Records regulations: The Federal rules restrict any use of the information to criminally investigate or prosecute any alcohol or drug abuse patient.[facility] HospitalIn the event this information is protected by the Federal Confidentiality of Alcohol and Drug Abuse Patient Records regulations: The Federal rules restrict any use of the information to criminally investigate or prosecute any alcohol or drug abuse patient.[facility] the event this information is protected by the Federal Confidentiality of Alcohol and Drug Abuse Patient Records regulations: The Federal rules restrict any use of the information to criminally investigate or prosecute any alcohol or drug abuse patient.[facility] HospitalIn the event this information is protected by the Federal Confidentiality of Alcohol and Drug Abuse Patient Records regulations: The Federal rules restrict any use of the information to criminally investigate or prosecute any alcohol or drug abuse patient.[facility] HospitalIn the event this information is protected by the Federal Confidentiality of Alcohol and Drug Abuse Patient Records regulations: The Federal rules restrict any use of the information to criminally investigate or prosecute any alcohol or drug abuse patient.[facility] HospitalIn the event this information is protected by the Federal Confidentiality of Alcohol and Drug Abuse Patient Records regulations: The Federal rules restrict any use of the information to criminally investigate or prosecute any alcohol or drug abuse patient.[facility] HospitalIn the event this information is protected by the Federal Confidentiality of Alcohol and Drug Abuse Patient Records regulations: The Federal rules restrict any use of the information to criminally investigate or prosecute any alcohol or drug abuse patient.[facility] HospitalIn the event this information is protected by the Federal Confidentiality of Alcohol and Drug Abuse Patient Records regulations: The Federal rules restrict any use of the information to criminally investigate or prosecute any alcohol or drug abuse patient.[facility] HospitalIn the event this information is protected by the Federal Confidentiality of Alcohol and Drug Abuse Patient Records regulations: The Federal rules restrict any use of the information to criminally investigate or prosecute any alcohol or drug abuse patient.[facility] HospitalIn the event this information is protected by the Federal Confidentiality of Alcohol and Drug Abuse Patient Records regulations: The Federal rules restrict any use of the information to criminally investigate or prosecute any alcohol or drug abuse patient.[facility] HospitalIn the event this information is protected by the Federal Confidentiality of Alcohol and Drug Abuse Patient Records regulations: The Federal rules restrict any use of the information to criminally investigate or prosecute any alcohol or drug abuse patient.[facility] HospitalIn the event this information is protected by the Federal Confidentiality of Alcohol and Drug Abuse Patient Records regulations: The Federal rules restrict any use of the information to criminally investigate or prosecute any alcohol or drug abuse patient.[facility] HospitalIn the event this information is protected by the Federal Confidentiality of Alcohol and Drug Abuse Patient Records regulations: The Federal rules restrict any use of the information to criminally investigate or prosecute any alcohol or drug abuse patient.[facility] HospitalIn the event this information is protected by the Federal Confidentiality of Alcohol and Drug Abuse Patient Records regulations: The Federal rules restrict any use of the information to criminally investigate or prosecute any alcohol or drug abuse patient.[facility] HospitalIn the event this information is protected by the Federal Confidentiality of Alcohol and Drug Abuse Patient Records regulations: The Federal rules restrict any use of the information to criminally investigate or prosecute any alcohol or drug abuse patient.[facility] HospitalIn the event this information is protected by the Federal Confidentiality of Alcohol and Drug Abuse Patient Records regulations: The Federal rules restrict any use of the information to criminally investigate or prosecute any alcohol or drug abuse patient.[facility] HospitalIn the event this information is protected by the Federal Confidentiality of Alcohol and Drug Abuse Patient Records regulations: The Federal rules restrict any use of the information to criminally investigate or prosecute any alcohol or drug abuse patient.[facility] HospitalIn the event this information is protected by the Federal Confidentiality of Alcohol and Drug Abuse Patient Records regulations: The Federal rules restrict any use of the information to criminally investigate or prosecute any alcohol or drug abuse patient.[facility] HospitalIn the event this information is protected by the Federal Confidentiality of Alcohol and Drug Abuse Patient Records regulations: The Federal rules restrict any use of the information to criminally investigate or prosecute any alcohol or drug abuse patient.[facility] HospitalIn the event this information is protected by the Federal Confidentiality of Alcohol and Drug Abuse Patient Records regulations: The Federal rules restrict any use of the information to criminally investigate or prosecute any alcohol or drug abuse patient.[facility]In the event this information is protected by the Federal Confidentiality of Alcohol and Drug Abuse Patient Records regulations: The Federal rules restrict any use of the information to criminally investigate or prosecute any alcohol or drug abuse patient.[facility] HospitalIn the event this information is protected by the Federal Confidentiality of Alcohol and Drug Abuse Patient Records regulations: The Federal rules restrict any use of the information to criminally investigate or prosecute any alcohol or drug abuse patient.[facility] HospitalIn the event this information is protected by the Federal Confidentiality of Alcohol and Drug Abuse Patient Records regulations: The Federal rules restrict any use of the information to criminally investigate or prosecute any alcohol or drug abuse patient.[facility] HospitalIn the event this information is protected by the Federal Confidentiality of Alcohol and Drug Abuse Patient Records regulations: The Federal rules restrict any use of the information to criminally investigate or prosecute any alcohol or drug abuse patient.[facility] HospitalIn the event this information is protected by the Federal Confidentiality of Alcohol and Drug Abuse Patient Records regulations: The Federal rules restrict any use of the information to criminally investigate or prosecute any alcohol or drug abuse patient.[facility] HospitalIn the event this information is protected by the Federal Confidentiality of Alcohol and Drug Abuse Patient Records regulations: The Federal rules restrict any use of the information to criminally investigate or prosecute any alcohol or drug abuse patient.[facility] HospitalIn the event this information is protected by the Federal Confidentiality of Alcohol and Drug Abuse Patient Records regulations: The Federal rules restrict any use of the information to criminally investigate or prosecute any alcohol or drug abuse patient.[facility] HospitalIn the event this information is protected by the Federal Confidentiality of Alcohol and Drug Abuse Patient Records regulations: The Federal rules restrict any use of the information to criminally investigate or prosecute any alcohol or drug abuse patient.[facility] HospitalIn the event this information is protected by the Federal Confidentiality of Alcohol and Drug Abuse Patient Records regulations: The Federal rules restrict any use of the information to criminally investigate or prosecute any alcohol or drug abuse patient.[facility] HospitalIn the event this information is protected by the Federal Confidentiality of Alcohol and Drug Abuse Patient Records regulations: The Federal rules restrict any use of the information to criminally investigate or prosecute any alcohol or drug abuse patient.[facility] HospitalIn the event this information is protected by the Federal Confidentiality of Alcohol and Drug Abuse Patient Records regulations: The Federal rules restrict any use of the information to criminally investigate or prosecute any alcohol or drug abuse patient.[facility] HospitalIn the event this information is protected by the Federal Confidentiality of Alcohol and Drug Abuse Patient Records regulations: The Federal rules restrict any use of the information to criminally investigate or prosecute any alcohol or drug abuse patient.[facility] HospitalIn the event this information is protected by the Federal Confidentiality of Alcohol and Drug Abuse Patient Records regulations: The Federal rules restrict any use of the information to criminally investigate or prosecute any alcohol or drug abuse patient.[facility] HospitalIn the event this information is protected by the Federal Confidentiality of Alcohol and Drug Abuse Patient Records regulations: The Federal rules restrict any use of the information to criminally investigate or prosecute any alcohol or drug abuse patient.[facility] HospitalIn the event this information is protected by the Federal Confidentiality of Alcohol and Drug Abuse Patient Records regulations: The Federal rules restrict any use of the information to criminally investigate or prosecute any alcohol or drug abuse patient.[facility] HospitalIn the event this information is protected by the Federal Confidentiality of Alcohol and Drug Abuse Patient Records regulations: The Federal rules restrict any use of the information to criminally investigate or prosecute any alcohol or drug abuse patient.[facility] HospitalIn the event this information is protected by the Federal Confidentiality of Alcohol and Drug Abuse Patient Records regulations: The Federal rules restrict any use of the information to criminally investigate or prosecute any alcohol or drug abuse patient.[facility] HospitalIn the event this information is protected by the Federal Confidentiality of Alcohol and Drug Abuse Patient Records regulations: The Federal rules restrict any use of the information to criminally investigate or prosecute any alcohol or drug abuse patient.[facility] HospitalIn the event this information is protected by the Federal Confidentiality of Alcohol and Drug Abuse Patient Records regulations: The Federal rules restrict any use of the information to criminally investigate or prosecute any alcohol or drug abuse patient.[facility] HospitalIn the event this information is protected by the Federal Confidentiality of Alcohol and Drug Abuse Patient Records regulations: The Federal rules restrict any use of the information to criminally investigate or prosecute any alcohol or drug abuse patient.[facility] HospitalIn the event this information is protected by the Federal Confidentiality of Alcohol and Drug Abuse Patient Records regulations: The Federal rules restrict any use of the information to criminally investigate or prosecute any alcohol or drug abuse patient.[facility] HospitalIn the event this information is protected by the Federal Confidentiality of Alcohol and Drug Abuse Patient Records regulations: The Federal rules restrict any use of the information to criminally investigate or prosecute any alcohol or drug abuse patient.[facility] HospitalIn the event this information is protected by the Federal Confidentiality of Alcohol and Drug Abuse Patient Records regulations: The Federal rules restrict any use of the information to criminally investigate or prosecute any alcohol or drug abuse patient.[facility] HospitalIn the event this information is protected by the Federal Confidentiality of Alcohol and Drug Abuse Patient Records regulations: The Federal rules restrict any use of the information to criminally investigate or prosecute any alcohol or drug abuse patient.[facility] HospitalIn the event this information is protected by the Federal Confidentiality of Alcohol and Drug Abuse Patient Records regulations: The Federal rules restrict any use of the information to criminally investigate or prosecute any alcohol or drug abuse patient.[facility] HospitalIn the event this information is protected by the Federal Confidentiality of Alcohol and Drug Abuse Patient Records regulations: The Federal rules restrict any use of the information to criminally investigate or prosecute any alcohol or drug abuse patient.[facility] HospitalIn the event this information is protected by the Federal Confidentiality of Alcohol and Drug Abuse Patient Records regulations: The Federal rules restrict any use of the information to criminally investigate or prosecute any alcohol or drug abuse patient.[facility] HospitalIn the event this information is protected by the Federal Confidentiality of Alcohol and Drug Abuse Patient Records regulations: The Federal rules restrict any use of the information to criminally investigate or prosecute any alcohol or drug abuse patient.[facility] HospitalIn the event this information is protected by the Federal Confidentiality of Alcohol and Drug Abuse Patient Records regulations: The Federal rules restrict any use of the information to criminally investigate or prosecute any alcohol or drug abuse patient.[facility] HospitalIn the event this information is protected by the Federal Confidentiality of Alcohol and Drug Abuse Patient Records regulations: The Federal rules restrict any use of the information to criminally investigate or prosecute any alcohol or drug abuse patient.[facility] HospitalIn the event this information is protected by the Federal Confidentiality of Alcohol and Drug Abuse Patient Records regulations: The Federal rules restrict any use of the information to criminally investigate or prosecute any alcohol or drug abuse patient.[facility] HospitalIn the event this information is protected by the Federal Confidentiality of Alcohol and Drug Abuse Patient Records regulations: The Federal rules restrict any use of the information to criminally investigate or prosecute any alcohol or drug abuse patient.[facility] the event this information is protected by the Federal Confidentiality of Alcohol and Drug Abuse Patient Records regulations: The Federal rules restrict any use of the information to criminally investigate or prosecute any alcohol or drug abuse patient.[facility] HospitalIn the event this information is protected by the Federal Confidentiality of Alcohol and Drug Abuse Patient Records regulations: The Federal rules restrict any use of the information to criminally investigate or prosecute any alcohol or drug abuse patient.[facility] HospitalIn the event this information is protected by the Federal Confidentiality of Alcohol and Drug Abuse Patient Records regulations: The Federal rules restrict any use of the information to criminally investigate or prosecute any alcohol or drug abuse patient.[facility] HospitalIn the event this information is protected by the Federal Confidentiality of Alcohol and Drug Abuse Patient Records regulations: The Federal rules restrict any use of the information to criminally investigate or prosecute any alcohol or drug abuse patient.[facility] HospitalIn the event this information is protected by the Federal Confidentiality of Alcohol and Drug Abuse Patient Records regulations: The Federal rules restrict any use of the information to criminally investigate or prosecute any alcohol or drug abuse patient.[facility] HospitalIn the event this information is protected by the Federal Confidentiality of Alcohol and Drug Abuse Patient Records regulations: The Federal rules restrict any use of the information to criminally investigate or prosecute any alcohol or drug abuse patient.[facility] HospitalIn the event this information is protected by the Federal Confidentiality of Alcohol and Drug Abuse Patient Records regulations: The Federal rules restrict any use of the information to criminally investigate or prosecute any alcohol or drug abuse patient.[facility] HospitalIn the event this information is protected by the Federal Confidentiality of Alcohol and Drug Abuse Patient Records regulations: The Federal rules restrict any use of the information to criminally investigate or prosecute any alcohol or drug abuse patient.[facility] HospitalIn the event this information is protected by the Federal Confidentiality of Alcohol and Drug Abuse Patient Records regulations: The Federal rules restrict any use of the information to criminally investigate or prosecute any alcohol or drug abuse patient.[facility] HospitalIn the event this information is protected by the Federal Confidentiality of Alcohol and Drug Abuse Patient Records regulations: The Federal rules restrict any use of the information to criminally investigate or prosecute any alcohol or drug abuse patient.[facility] HospitalIn the event this information is protected by the Federal Confidentiality of Alcohol and Drug Abuse Patient Records regulations: The Federal rules restrict any use of the information to criminally investigate or prosecute any alcohol or drug abuse patient.[facility] HospitalIn the event this information is protected by the Federal Confidentiality of Alcohol and Drug Abuse Patient Records regulations: The Federal rules restrict any use of the information to criminally investigate or prosecute any alcohol or drug abuse patient.[facility] HospitalIn the event this information is protected by the Federal Confidentiality of Alcohol and Drug Abuse Patient Records regulations: The Federal rules restrict any use of the information to criminally investigate or prosecute any alcohol or drug abuse patient.[facility] HospitalIn the event this information is protected by the Federal Confidentiality of Alcohol and Drug Abuse Patient Records regulations: The Federal rules restrict any use of the information to criminally investigate or prosecute any alcohol or drug abuse patient.[facility] HospitalIn the event this information is protected by the Federal Confidentiality of Alcohol and Drug Abuse Patient Records regulations: The Federal rules restrict any use of the information to criminally investigate or prosecute any alcohol or drug abuse patient.[facility] HospitalIn the event this information is protected by the Federal Confidentiality of Alcohol and Drug Abuse Patient Records regulations: The Federal rules restrict any use of the information to criminally investigate or prosecute any alcohol or drug abuse patient.[facility] HospitalIn the event this information is protected by the Federal Confidentiality of Alcohol and Drug Abuse Patient Records regulations: The Federal rules restrict any use of the information to criminally investigate or prosecute any alcohol or drug abuse patient.[facility] HospitalIn the event this information is protected by the Federal Confidentiality of Alcohol and Drug Abuse Patient Records regulations: The Federal rules restrict any use of the information to criminally investigate or prosecute any alcohol or drug abuse patient.[facility] HospitalIn the event this information is protected by the Federal Confidentiality of Alcohol and Drug Abuse Patient Records regulations: The Federal rules restrict any use of the information to criminally investigate or prosecute any alcohol or drug abuse patient.[facility] HospitalIn the event this information is protected by the Federal Confidentiality of Alcohol and Drug Abuse Patient Records regulations: The Federal rules restrict any use of the information to criminally investigate or prosecute any alcohol or drug abuse patient.[facility] HospitalIn the event this information is protected by the Federal Confidentiality of Alcohol and Drug Abuse Patient Records regulations: The Federal rules restrict any use of the information to criminally investigate or prosecute any alcohol or drug abuse patient.[facility] HospitalIn the event this information is protected by the Federal Confidentiality of Alcohol and Drug Abuse Patient Records regulations: The Federal rules restrict any use of the information to criminally investigate or prosecute any alcohol or drug abuse patient.[facility] HospitalIn the event this information is protected by the Federal Confidentiality of Alcohol and Drug Abuse Patient Records regulations: The Federal rules restrict any use of the information to criminally investigate or prosecute any alcohol or drug abuse patient.[facility] HospitalIn the event this information is protected by the Federal Confidentiality of Alcohol and Drug Abuse Patient Records regulations: The Federal rules restrict any use of the information to criminally investigate or prosecute any alcohol or drug abuse patient.[facility] HospitalIn the event this information is protected by the Federal Confidentiality of Alcohol and Drug Abuse Patient Records regulations: The Federal rules restrict any use of the information to criminally investigate or prosecute any alcohol or drug abuse patient.[facility] HospitalIn the event this information is protected by the Federal Confidentiality of Alcohol and Drug Abuse Patient Records regulations: The Federal rules restrict any use of the information to criminally investigate or prosecute any alcohol or drug abuse patient.[facility] HospitalIn the event this information is protected by the Federal Confidentiality of Alcohol and Drug Abuse Patient Records regulations: The Federal rules restrict any use of the information to criminally investigate or prosecute any alcohol or drug abuse patient.[facility] HospitalIn the event this information is protected by the Federal Confidentiality of Alcohol and Drug Abuse Patient Records regulations: The Federal rules restrict any use of the information to criminally investigate or prosecute any alcohol or drug abuse patient.[facility] HospitalIn the event this information is protected by the Federal Confidentiality of Alcohol and Drug Abuse Patient Records regulations: The Federal rules restrict any use of the information to criminally investigate or prosecute any alcohol or drug abuse patient.[facility] HospitalIn the event this information is protected by the Federal Confidentiality of Alcohol and Drug Abuse Patient Records regulations: The Federal rules restrict any use of the information to criminally investigate or prosecute any alcohol or drug abuse patient.[facility] HospitalIn the event this information is protected by the Federal Confidentiality of Alcohol and Drug Abuse Patient Records regulations: The Federal rules restrict any use of the information to criminally investigate or prosecute any alcohol or drug abuse patient.[facility] HospitalIn the event this information is protected by the Federal Confidentiality of Alcohol and Drug Abuse Patient Records regulations: The Federal rules restrict any use of the information to criminally investigate or prosecute any alcohol or drug abuse patient.[facility] HospitalIn the event this information is protected by the Federal Confidentiality of Alcohol and Drug Abuse Patient Records regulations: The Federal rules restrict any use of the information to criminally investigate or prosecute any alcohol or drug abuse patient.[facility] HospitalIn the event this information is protected by the Federal Confidentiality of Alcohol and Drug Abuse Patient Records regulations: The Federal rules restrict any use of the information to criminally investigate or prosecute any alcohol or drug abuse patient.[facility] HospitalIn the event this information is protected by the Federal Confidentiality of Alcohol and Drug Abuse Patient Records regulations: The Federal rules restrict any use of the information to criminally investigate or prosecute any alcohol or drug abuse patient.[facility] HospitalIn the event this information is protected by the Federal Confidentiality of Alcohol and Drug Abuse Patient Records regulations: The Federal rules restrict any use of the information to criminally investigate or prosecute any alcohol or drug abuse patient.[facility] HospitalIn the event this information is protected by the Federal Confidentiality of Alcohol and Drug Abuse Patient Records regulations: The Federal rules restrict any use of the information to criminally investigate or prosecute any alcohol or drug abuse patient.[facility] HospitalIn the event this information is protected by the Federal Confidentiality of Alcohol and Drug Abuse Patient Records regulations: The Federal rules restrict any use of the information to criminally investigate or prosecute any alcohol or drug abuse patient.[facility] HospitalIn the event this information is protected by the Federal Confidentiality of Alcohol and Drug Abuse Patient Records regulations: The Federal rules restrict any use of the information to criminally investigate or prosecute any alcohol or drug abuse patient.[facility] HospitalIn the event this information is protected by the Federal Confidentiality of Alcohol and Drug Abuse Patient Records regulations: The Federal rules restrict any use of the information to criminally investigate or prosecute any alcohol or drug abuse patient.[facility] HospitalIn the event this information is protected by the Federal Confidentiality of Alcohol and Drug Abuse Patient Records regulations: The Federal rules restrict any use of the information to criminally investigate or prosecute any alcohol or drug abuse patient.[facility] HospitalIn the event this information is protected by the Federal Confidentiality of Alcohol and Drug Abuse Patient Records regulations: The Federal rules restrict any use of the information to criminally investigate or prosecute any alcohol or drug abuse patient.[facility] HospitalIn the event this information is protected by the Federal Confidentiality of Alcohol and Drug Abuse Patient Records regulations: The Federal rules restrict any use of the information to criminally investigate or prosecute any alcohol or drug abuse patient.[facility] HospitalIn the event this information is protected by the Federal Confidentiality of Alcohol and Drug Abuse Patient Records regulations: The Federal rules restrict any use of the information to criminally investigate or prosecute any alcohol or drug abuse patient.[facility] HospitalIn the event this information is protected by the Federal Confidentiality of Alcohol and Drug Abuse Patient Records regulations: The Federal rules restrict any use of the information to criminally investigate or prosecute any alcohol or drug abuse patient.[facility] HospitalIn the event this information is protected by the Federal Confidentiality of Alcohol and Drug Abuse Patient Records regulations: The Federal rules restrict any use of the information to criminally investigate or prosecute any alcohol or drug abuse patient.[facility] HospitalIn the event this information is protected by the Federal Confidentiality of Alcohol and Drug Abuse Patient Records regulations: The Federal rules restrict any use of the information to criminally investigate or prosecute any alcohol or drug abuse patient.[facility] HospitalIn the event this information is protected by the Federal Confidentiality of Alcohol and Drug Abuse Patient Records regulations: The Federal rules restrict any use of the information to criminally investigate or prosecute any alcohol or drug abuse patient.[facility] HospitalIn the event this information is protected by the Federal Confidentiality of Alcohol and Drug Abuse Patient Records regulations: The Federal rules restrict any use of the information to criminally investigate or prosecute any alcohol or drug abuse patient.[facility] HospitalIn the event this information is protected by the Federal Confidentiality of Alcohol and Drug Abuse Patient Records regulations: The Federal rules restrict any use of the information to criminally investigate or prosecute any alcohol or drug abuse patient.[facility] the event this information is protected by the Federal Confidentiality of Alcohol and Drug Abuse Patient Records regulations: The Federal rules restrict any use of the information to criminally investigate or prosecute any alcohol or drug abuse patient.[facility] HospitalIn the event this information is protected by the Federal Confidentiality of Alcohol and Drug Abuse Patient Records regulations: The Federal rules restrict any use of the information to criminally investigate or prosecute any alcohol or drug abuse patient.[facility] HospitalIn the event this information is protected by the Federal Confidentiality of Alcohol and Drug Abuse Patient Records regulations: The Federal rules restrict any use of the information to criminally investigate or prosecute any alcohol or drug abuse patient.[facility] HospitalIn the event this information is protected by the Federal Confidentiality of Alcohol and Drug Abuse Patient Records regulations: The Federal rules restrict any use of the information to criminally investigate or prosecute any alcohol or drug abuse patient.[facility] HospitalIn the event this information is protected by the Federal Confidentiality of Alcohol and Drug Abuse Patient Records regulations: The Federal rules restrict any use of the information to criminally investigate or prosecute any alcohol or drug abuse patient.[facility] HospitalIn the event this information is protected by the Federal Confidentiality of Alcohol and Drug Abuse Patient Records regulations: The Federal rules restrict any use of the information to criminally investigate or prosecute any alcohol or drug abuse patient.[facility] HospitalIn the event this information is protected by the Federal Confidentiality of Alcohol and Drug Abuse Patient Records regulations: The Federal rules restrict any use of the information to criminally investigate or prosecute any alcohol or drug abuse patient.[facility] HospitalIn the event this information is protected by the Federal Confidentiality of Alcohol and Drug Abuse Patient Records regulations: The Federal rules restrict any use of the information to criminally investigate or prosecute any alcohol or drug abuse patient.[facility] HospitalIn the event this information is protected by the Federal Confidentiality of Alcohol and Drug Abuse Patient Records regulations: The Federal rules restrict any use of the information to criminally investigate or prosecute any alcohol or drug abuse patient.[facility] HospitalIn the event this information is protected by the Federal Confidentiality of Alcohol and Drug Abuse Patient Records regulations: The Federal rules restrict any use of the information to criminally investigate or prosecute any alcohol or drug abuse patient.[facility] HospitalIn the event this information is protected by the Federal Confidentiality of Alcohol and Drug Abuse Patient Records regulations: The Federal rules restrict any use of the information to criminally investigate or prosecute any alcohol or drug abuse patient.[facility] HospitalIn the event this information is protected by the Federal Confidentiality of Alcohol and Drug Abuse Patient Records regulations: The Federal rules restrict any use of the information to criminally investigate or prosecute any alcohol or drug abuse patient.[facility] HospitalIn the event this information is protected by the Federal Confidentiality of Alcohol and Drug Abuse Patient Records regulations: The Federal rules restrict any use of the information to criminally investigate or prosecute any alcohol or drug abuse patient.[facility] HospitalIn the event this information is protected by the Federal Confidentiality of Alcohol and Drug Abuse Patient Records regulations: The Federal rules restrict any use of the information to criminally investigate or prosecute any alcohol or drug abuse patient.[facility] HospitalIn the event this information is protected by the Federal Confidentiality of Alcohol and Drug Abuse Patient Records regulations: The Federal rules restrict any use of the information to criminally investigate or prosecute any alcohol or drug abuse patient.[facility] HospitalIn the event this information is protected by the Federal Confidentiality of Alcohol and Drug Abuse Patient Records regulations: The Federal rules restrict any use of the information to criminally investigate or prosecute any alcohol or drug abuse patient.[facility] HospitalIn the event this information is protected by the Federal Confidentiality of Alcohol and Drug Abuse Patient Records regulations: The Federal rules restrict any use of the information to criminally investigate or prosecute any alcohol or drug abuse patient.[facility] HospitalIn the event this information is protected by the Federal Confidentiality of Alcohol and Drug Abuse Patient Records regulations: The Federal rules restrict any use of the information to criminally investigate or prosecute any alcohol or drug abuse patient.[facility] HospitalIn the event this information is protected by the Federal Confidentiality of Alcohol and Drug Abuse Patient Records regulations: The Federal rules restrict any use of the information to criminally investigate or prosecute any alcohol or drug abuse patient.[facility] HospitalIn the event this information is protected by the Federal Confidentiality of Alcohol and Drug Abuse Patient Records regulations: The Federal rules restrict any use of the information to criminally investigate or prosecute any alcohol or drug abuse patient.[facility] Reason for Visit (unrecogniz ed section and content) Reason Comments Colposcopy Specialty Diagnoses / Procedures Referred By Contac t Referred To Contact [facility] Diagnoses Cervical high risk HPV (human papillomavirus) test positive Procedures COLPOSCOPY COLPOSCOPY CERVIX BX CERVIX & [place] [address] [place] [address] [address] Referral ID Status Reason Start Date Expiration Date V isits Requested Visits Authorized [id number] Closed Auto-Generate d Referral 02/08/2024 02/07/2025 1 1 Reason Comments Treatment Planning Reason Comments upset hasn't heard anything reg us Reason Comments cd2 ret call Specialty Diagnoses / Procedures Referred By Contac t Referred To Contact [facility] Diagnoses Encounter for fertility planning Procedures [facility] [place] NONOBSTETRIC IMAGE DCMTN LIMITED/F/U Kobi Weiner PA-C [address] [place] [address] [address] Referral ID Status Reason Start Date Expiration Date Visits Requested Visits Authorized [id number] Authorized Benefit Check 10/30/2022 09/13/2023 3 3 Reason Comments metformin refill / completely out Reason Comments Patient Question Reason Comments New IVF Reason Comments Medication Problem Reason Comments cd2 , refill prescription Reason Comments Patient Question Reason Comments Infertility Specialty Diagnoses / Procedures Referred By Contac t Referred To Contact [facility] Diagnoses Encounter for fertility testing Procedures FOLLICULAR US I US PELVIC NONOBSTETRIC IMAGE DCMTN LIMITED/F/U Leonel Cabezas APRN.[facility] [address] [place] [address] [facility] [address] [place] [address] Referral ID Status Reason Start Date Expiration Date V isits Requested Visits Authorized [id number] Closed Auto-Generate d Referral 05/13/2023 09/13/2023 6 1 Reason Comments Returning Patient's Call Reason Comments Patient Update Specialty Diagnoses / Procedures Referred By Contac t Referred To Contact [facility] Diagnoses Encounter for fertility planning Procedures FOLLICULAR US I US PELVIC NONOBSTETRIC IMAGE DCMTN LIMITED/F/U Kobi Weiner PA-C [address] [place] [address] [facility] [address] [place] [address] Referral ID Status Reason Start Date Expiration Date V isits Requested Visits Authorized [id number] Closed Benefit Check 10/30/2022 09/13/2023 3 3 Specialty Diagnoses / Procedures Referred By Contac t Referred To Contact [facility] Diagnoses Primary female infertility Procedures FOLLICULAR US [facility] US PELVIC NONOBSTETRIC IMAGE DCMTN LIMITED/F/U Radha Gilliam MD [address] [place] [address] [facility] [address] [place] [address] Referral ID Status Reason Start Date Expiration Date V isits Requested Visits Authorized [id number] Closed Auto-Generate d Referral 06/17/2023 06/16/2024 6 1 Reason Comments Refill Request Specialty Diagnoses / Procedures Referred By Contac t Referred To Contact [facility] Diagnoses Encounter for fertility testing Procedures XR HYSTEROSALPINGOGRAM CATH & SALINE/CONTRAST SONOHYSTER/HYSTEROSALPI HYSTEROSALPINGOGRAPHY RS&[place] [address] [place] [address] [place] [address] Referral ID Status Reason Start Date Expiration Date Visits Requested Visits Authorized [id number] Authorized Benefit Check 03/25/2023 09/13/2023 4 3 Reason Comments New Patient Specialty Diagnoses / Procedures Referred By Contac t Referred To Contact [facility] Diagnoses Female infertility Procedures FOLLICULAR US WHI US PELVIC NONOBSTETRIC IMAGE DCMTN LIMITED/F/U Leonel Cabezas, ANGELITA.[facility] [address] [place] [address] [address] [place] [address] Referral ID Status Reason Start Date Expiration Date V isits Requested Visits Authorized [id number] Closed Auto-Generate d Referral 08/18/2023 08/17/2024 6 1 Reason Comments Initial Visit Reason Comments US Specialty Diagnoses / Procedures Referred By Contac t Referred To Contact [facility] Diagnoses Encounter to determine viability of , fetus 1 of multiple gestation Procedures OBSTETRIC ULTRASOUND WHI US PREG UTERUS AFTER 1ST TRIMEST / GESTATION Provider, Heat Set Operator Transcribe [id number] [place] [address] Referral ID Status Reason Start Date Expiration Date V isits Requested Visits Authorized [id number] Closed Auto-Generate d Referral 10/22/2023 10/21/2024 1 1 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 Reason Comments Well Woman Reason Comments unsure about cycle/it is odd Reason Comments Period due this week// never had a full flow Patient Update Reason Comments Consult Reason Comments discuss her cycle lmp Thursday cycle for 1 day Reason Comments goyo pt ret call states she didn't sta rt her provera Reason Comments next steps , no cycle yet Reason Comments [place] pt has ques on getting her labs in [place] Specialty Diagnoses / Procedures Referred By Contac t Referred To Contact [facility] Diagnoses Female infertility Procedures FOLLICULAR US WHI US PELVIC NONOBSTETRIC IMAGE DCMTN LIMITED/F/U Kobi Weiner PA-C [address] [place] [address] [facility] [address] [place], [place] [address] Referral ID Status Reason Start Date Expiration Date V isits Requested Visits Authorized [id number] Closed Benefit Check 03/09/2024 03/09/2025 3 1 Specialty Diagnoses / Procedures Referred By Contac t Referred To Contact [facility] Diagnoses Fertility testing Procedures SONOHYSTEROGRAPHY (SIS) US [facility] SALINE INFUS SONOHYSTEROGRAPHY W/COLOR DOPPLER CATH & SALINE/CONTRAST SONOHYSTER/HYSTEROSALPI HYSTEROSALPINGOGRAPHY RS&[place] [address] [place] [address] [facility] [address] [place] [address] Referral ID Status Reason Start Date Expiration Date Visits Requested Visits Authorized [id number] Authorized Benefit Check 03/09/2024 09/13/2024 3 3 Reason Comments Next Steps Specialty Diagnoses / Procedures Referred By Contac t Referred To Contact [facility] Diagnoses Encounter for fertility testing Procedures OFFICE HYSTEROSCOPY HYSTEROSCOPY BX ENDOMETRIUM&/POLYPC W/WO D&C HYSTEROSCOPY, DIAGNOSTIC ([place] [address] [place] [address] [facility] [address] [place] [address] Referral ID Status Reason Start Date Expiration Date V isits Requested Visits Authorized [id number] Closed Benefit Check 05/05/2024 05/05/2025 2 1 Specialty Diagnoses / Procedures Referred By Contac t Referred To Contact [facility] Diagnoses Primary female infertility Procedures FOLLICULAR US WHI US PELVIC NONOBSTETRIC IMAGE DCMTN LIMITED/F/[place] [address] [place] [address] [address] Referral ID Status Reason Start Date Expiration Date V isits Requested Visits Authorized [id number] Closed Auto-Generate d Referral 05/26/2024 05/24/2025 5 1 Reason Comments Next Steps Specialty Diagnoses / Procedures Referred By Contac t Referred To Contact [facility] Diagnoses Female infertility Procedures FOLLICULAR US I US PELVIC NONOBSTETRIC IMAGE DCMTN LIMITED/F/U Sushila Levy, JOURNEYMAN PATTERNMAKER.[facility] [address] [facility] [address] [place] [place] [address] [address] Referral ID Status Reason Start Date Expiration Date V isits Requested Visits Authorized [id number] Closed Auto-Generate d Referral 07/04/2024 07/04/2025 4 1 Reason Comments LMP 08/06/24/ set up baselines for super ov Referral ID Status Reason Start Date Expiration Date V isits Requested Visits Authorized [id number] Closed Auto-Generate d Referral 08/08/2024 08/08/2025 4 1 Reason Comments Appointment LMP 09/07/24/ set up medicated cycle Called back today is day 3/ set up super ov Specialty Diagnoses / Procedures Referred By Contac t Referred To Contact [facility] Diagnoses Female infertility Procedures FOLLICULAR US WHI US PELVIC NONOBSTETRIC IMAGE DCMTN LIMITED/F/[place] [address] [place] [address] [address] Referral ID Status Reason Start Date Expiration Date V isits Requested Visits Authorized [id number] Closed Benefit Check 09/09/2024 09/09/2025 3 1 Specialty Diagnoses / Procedures Referred By Contac t Referred To Contact [facility] Diagnoses Female infertility Procedures FOLLICULAR US WHI US PELVIC NONOBSTETRIC IMAGE DCMTN LIMITED/F/[place] [address] [place] [address] [facility] [address] [place] [address] Reason Onset Date Comments Refill Request 10/03/2024 Reason Comments Back Pain Lower to mid Reason Comments needs to schedule us for so cycle Referral ID Status Reason Start Date Expiration Date Visits Requested Visits Authorized [id number] Authorized Patient Cleared INN/SMCP Payor Auth Obtained Benefit Check 4 09/09/2025 8 8 Reason Comments Sleep Apnea DOWNLOADED MACHINE A ND THERE WAS ZERO USAGE PT STATES SHE ISN'T USING BECAUSE SHE NEEDS NEW SUPPLIES Reason Comments Annual Exam Reason Comments Results Reason Comments Cough Headache Sore Throat Reason Comments Annual Exam Reason Onset Date Comments Refill Request 11/08/2024 Reason Comments Appointment Reason Comments needs letrozole today Specialty Diagnoses / Procedures Referred By Kt t Referred To Contact [facility] Diagnoses Encounter for fertility testing Procedures FOLLICULAR US [facility] US PELVIC NONOBSTETRIC IMAGE DCMTN LIMITED/F/U Leonel Cabezas, ANGELITA.[facility] [place] [address] [place] [address] Phone: tel: fax: [facility] [address] [place] [address] Referral ID Status Reason Start Date Expiration Date V isits Requested Visits Authorized [id number] Closed Auto-Generate d Referral 11/14/2024 11/11/2025 6 1 Reason Comments Cyst INCLUSION CYST, REF BY DR. MCKEON Specialty Diagnoses / Procedures Referred By Kt t Referred To Contact General Surgery Diagnoses Inclusion cyst David Mckeon MD [address] [place] [address] Phone: tel: fax: Millie Ellis MD [address] [place] [address] Phone: tel: fax: Referral ID Status Reason Start Date Expiration Date V isits Requested Visits Authorized [id number] Closed Specialty Services Required 11/08/2024 11/08/2025 1 1 Specialty Diagnoses / Procedures Referred By Contrica t Referred To Contact [facility] Diagnoses Female infertility Procedures FOLLICULAR US I US PELVIC NONOBSTETRIC IMAGE DCMTN LIMITED/F/[place] [address] [place] [address] Phone: tel: fax: [facility] [address] [place] [address] Referral ID Status Reason Start Date Expiration Date Visits Requested Visits Authorized [id number] Authorized Patient Cleared INN/SMCP Payor Auth Obtained Benefit Check 4 09/09/2025 8 8 Reason Comments progesterone shots Reason Comments Cyst INCISION CHECK, PATH OLOGY Reason Comments +hpt on darwin re labwork Mary [place] / [place] please call pt re +hpt Reason Comments +hpt lmp 11/11 did super ov cycle req lab work Reason Comments Care Teams (unrecognized sec tion and content) Shuttle Fitting Supervisor Relationship Specialty Start Date End Date Saturnino [address]dez[address] [place] [phone] Referring MECHANICAL ENGINEERING DRAFTSPERSON 10/04/20 Shuttle Fitting Supervisor Relationship Specialty Start Date End Date [place] [address] Referring MECHANICAL ENGINEERING DRAFTSPERSON 10/04/20 Shuttle Fitting Supervisor Relationship Specialty Start Date End Date [place] [phone] Referring MECHANICAL ENGINEERING DRAFTSPERSON 10/04/20 Shuttle Fitting Supervisor Relationship Specialty Start Date End Date [place] [address] Referring MECHANICAL ENGINEERING DRAFTSPERSON 10/04/20 Shuttle Fitting Supervisor Relationship Specialty Start Date End Date [address] [phone] Referring MECHANICAL ENGINEERING DRAFTSPERSON 10/04/20 Shuttle Fitting Supervisor Relationship Specialty Start Date End Date [place] [address] Referring MECHANICAL ENGINEERING DRAFTSPERSON 10/04/20 Shuttle Fitting Supervisor Relationship Specialty Start Date End Date Courtney Saturnino [address] [place] [address] Referring MECHANICAL ENGINEERING DRAFTSPERSON 10/04/20 Shuttle Fitting Supervisor Relationship Specialty Start Date End Date Saturnino Valdez [address] [place] [address] Referring MECHANICAL ENGINEERING DRAFTSPERSON 10/04/20 Shuttle Fitting Supervisor Relationship Specialty Start Date End Date Saturnino Valedz Jose [address] [place] [address] Referring MECHANICAL ENGINEERING DRAFTSPERSON 10/04/20 Shuttle Fitting Supervisor Relationship Specialty Start Date End Date Saturnino Valdez Jose [address] [place] [address] Referring MECHANICAL ENGINEERING DRAFTSPERSON 10/04/20 Shuttle Fitting Supervisor Relationship Specialty Start Date End Date Saturnino Valdez [address] [place] [address] Referring MECHANICAL ENGINEERING DRAFTSPERSON 10/04/20 Shuttle Fitting Supervisor Relationship Specialty Start Date End Date Saturnino Valdez Jose [address] [place] [address] Referring MECHANICAL ENGINEERING DRAFTSPERSON 10/04/20 Shuttle Fitting Supervisor Relationship Specialty Start Date End Date Saturnino Valdez [address] [place] [address] Referring MECHANICAL ENGINEERING DRAFTSPERSON 10/04/20 Shuttle Fitting Supervisor Relationship Specialty Start Date End Date Saturnino Valdez [address] [place] [address] Referring MECHANICAL ENGINEERING DRAFTSPERSON 10/04/20 Shuttle Fitting Supervisor Relationship Specialty Start Date End Date Saturnino Valdez [address] [place] [address] Referring MECHANICAL ENGINEERING DRAFTSPERSON 10/04/20 Shuttle Fitting Supervisor Relationship Specialty Start Date End Date Saturnino Valdez [address] [place] [address] Referring MECHANICAL ENGINEERING DRAFTSPERSON 10/04/20 Shuttle Fitting Supervisor Relationship Specialty Start Date End Date Saturnino Valdez [address] [place] [address] Referring MECHANICAL ENGINEERING DRAFTSPERSON 10/04/20 Shuttle Fitting Supervisor Relationship Specialty Start Date End Date Saturnino Valdez [address] [place] [address] Referring MECHANICAL ENGINEERING DRAFTSPERSON 10/04/20 Shuttle Fitting Supervisor Relationship Specialty Start Date End Date Saturnino Valdez [address] [place] [address] Referring MECHANICAL ENGINEERING DRAFTSPERSON 10/04/20 Shuttle Fitting Supervisor Relationship Specialty Start Date End Date Saturnino Valdez [address] [place] [address] Referring MECHANICAL ENGINEERING DRAFTSPERSON 10/04/20 Shuttle Fitting Supervisor Relationship Specialty Start Date End Date Saturnino Valdez [address] [place] [address] Referring MECHANICAL ENGINEERING DRAFTSPERSON 10/04/20 Shuttle Fitting Supervisor Relationship Specialty Start Date End Date Saturnino Valdez [address] [place] [address] Referring MECHANICAL ENGINEERING DRAFTSPERSON 10/04/20 Shuttle Fitting Supervisor Relationship Specialty Start Date End Date Saturnino Valdez [address] [place] [address] Referring MECHANICAL ENGINEERING DRAFTSPERSON 10/04/20 Shuttle Fitting Supervisor Relationship Specialty Start Date End Date Saturnino Valdez [address] [place] [address] Referring MECHANICAL ENGINEERING DRAFTSPERSON 10/04/20 Shuttle Fitting Supervisor Relationship Specialty Start Date End Date ValdezSaturnino [address] [place] [address] Referring MECHANICAL ENGINEERING DRAFTSPERSON 10/04/20 Team Status: Active Member Role Status Dates David Mckeon MD Primary Care Provider Active Team Status: Inactive Member Role Status Dates David Mckeon MD Primary Care Provider Active Start: September 30, 2023 End: October 01, 2023 Charly Matute DO Emergency Provider Active Sta rt: September 30, 2023 End: October 01, 2023 Shuttle Fitting Supervisor Relationship Specialty Start Date End Date David Mckeon MD [address] [facility] [place] [address] PCP - General Family Medicine 10/16/23 Shuttle Fitting Supervisor Relationship Specialty Start Date End Date Saturnino Valdez [address] [place] [phone] Referring Insulation Batting Machine Operator 10/04/20 Shuttle Fitting Supervisor Relationship Specialty Start Date End Date Saturnino Valdez [address] [place] [address] Referring Insulation Batting Machine Operator 10/04/20 Shuttle Fitting Supervisor Relationship Specialty Start Date End Date Saturnino Valdez [address] [place] [address] Referring Insulation Batting Machine Operator 10/04/20 Shuttle Fitting Supervisor Relationship Specialty Start Date End Date Saturnino Valdez [address] [place] [address] Referring Insulation Batting Machine Operator 10/04/20 Shuttle Fitting Supervisor Relationship Specialty Start Date End Date Saturnino Valdez [address] [place] [address] Referring Insulation Batting Machine Operator 10/04/20 Shuttle Fitting Supervisor Relationship Specialty Start Date End Date Saturnino Valdez [address] [place] [address] Referring Insulation Batting Machine Operator 10/04/20 Shuttle Fitting Supervisor Relationship Specialty Start Date End Date Saturnino Valdez [address] [place] [address] Referring Insulation Batting Machine Operator 10/04/20 Shuttle Fitting Supervisor Relationship Specialty Start Date End Date Saturnino Valdez [address] [place] [address] Referring Insulation Batting Machine Operator 10/04/20 Shuttle Fitting Supervisor Relationship Specialty Start Date End Date Saturnino Valdez [address] [place] [address] Referring Insulation Batting Machine Operator 10/04/20 Shuttle Fitting Supervisor Relationship Specialty Start Date End Date Saturnino Valdez [address] [place] [address] Referring Insulation Batting Machine Operator 10/04/20 Shuttle Fitting Supervisor Relationship Specialty Start Date End Date Saturnino Valdez [address] [place] [address] Referring Insulation Batting Machine Operator 10/04/20 Shuttle Fitting Supervisor Relationship Specialty Start Date End Date Saturnino Valdez [address] [place] [address] Referring Insulation Batting Machine Operator 10/04/20 Shuttle Fitting Supervisor Relationship Specialty Start Date End Date Saturnino Valdez [address] [place] [address] Referring Insulation Batting Machine Operator 10/04/20 Shuttle Fitting Supervisor Relationship Specialty Start Date End Date Saturnino Valdez [address] [place] [address] Referring Insulation Batting Machine Operator 10/04/20 Shuttle Fitting Supervisor Relationship Specialty Start Date End Date Saturnino Valdez [address] [place] [address] Referring Insulation Batting Machine Operator 10/04/20 Shuttle Fitting Supervisor Relationship Specialty Start Date End Date Saturnino Valdez [address] [place] [address] Referring Insulation Batting Machine Operator 10/04/20 Shuttle Fitting Supervisor Relationship Specialty Start Date End Date Saturnino Valdez [address] [place] [address] Referring Insulation Batting Machine Operator 10/04/20 Shuttle Fitting Supervisor Relationship Specialty Start Date End Date Saturnino Valdez [address] [place] [address] Referring Insulation Batting Machine Operator 10/04/20 Shuttle Fitting Supervisor Relationship Specialty Start Date End Date Saturnino Valdez [address] [place] [address] Referring Insulation Batting Machine Operator 10/04/20 Shuttle Fitting Supervisor Relationship Specialty Start Date End Date Saturnino Valdez [address] [place] [id number] Referring Insulation Batting Machine Operator 10/04/20 Shuttle Fitting Supervisor Relationship Specialty Start Date End Date Saturnino Valdez [address] [place] [address] Referring Insulation Batting Machine Operator 10/04/20 Shuttle Fitting Supervisor Relationship Specialty Start Date End Date Saturnino Valdez [address] [place] [address] Referring Insulation Batting Machine Operator 10/04/20 Shuttle Fitting Supervisor Relationship Specialty Start Date End Date Saturnino Valdez [address] [place] [address] Referring Insulation Batting Machine Operator 10/04/20 Shuttle Fitting Supervisor Relationship Specialty Start Date End Date Saturnino Valdez [address] [place] [address] Referring Insulation Batting Machine Operator 10/04/20 Shuttle Fitting Supervisor Relationship Specialty Start Date End Date Saturnino Valdez [address] [place] [phone] Referring Insulation Batting Machine Operator 10/04/20 Shuttle Fitting Supervisor Relationship Specialty Start Date End Date Saturnino Valdez [address] [place] [address] Referring Insulation Batting Machine Operator 10/04/20 Shuttle Fitting Supervisor Relationship Specialty Start Date End Date Saturnino Valdez [address] [place] [address] Referring Insulation Batting Machine Operator 10/04/20 Shuttle Fitting Supervisor Relationship Specialty Start Date End Date Saturnino Valdez [address] [place] [phone] Referring Insulation Batting Machine Operator 10/04/20 Shuttle Fitting Supervisor Relationship Specialty Start Date End Date David Mckeon MD [address] [place] [address] PCP - General Family Medicine 08/27/17 Shuttle Fitting Supervisor Relationship Specialty Start Date End Date Saturnino Valdez [address] [place] [phone] Referring Insulation Batting Machine Operator 10/04/20 Shuttle Fitting Supervisor Relationship Specialty Start Date End Date CourtneySaturnino [address] [place] [phone] Referring Insulation Batting Machine Operator 10/04/20 Shuttle Fitting Supervisor Relationship Specialty Start Date End Date David Mckeon MD [address] [place] [address] PCP - General Family Medicine 08/27/17 Shuttle Fitting Supervisor Relationship Specialty Start Date End Date David Mckeon MD [address] [place] [address] PCP - [facility] 08/27/17 Shuttle Fitting Supervisor Relationship Specialty Start Date End Date David Mckeon MD [address] [place] [address] PCP - [facility] 08/27/17 Shuttle Fitting Supervisor Relationship Specialty Start Date End Date David Mckeon MD [address] [place] [address] PCP - [facility] 08/27/17 Shuttle Fitting Supervisor Relationship Specialty Start Date End Date David Mckeon MD [address] [place] [address] PCP - [facility] 08/27/17 Shuttle Fitting Supervisor Relationship Specialty Start Date End Date David Mckeon MD [address] [place] [address] PCP - [facility] 08/27/17 Shuttle Fitting Supervisor Relationship Specialty Start Date End Date David Mckeon MD [address] [place] [address] PCP - [facility] 08/27/17 Shuttle Fitting Supervisor Relationship Specialty Start Date End Date Saturnino Valdez [address] [place] [address] Referring Insulation Batting Machine Operator 10/04/20 Shuttle Fitting Supervisor Relationship Specialty Start Date End Date David Mckeon MD [address] [place] [address] PCP - General Family Medicine 08/27/17 Shuttle Fitting Supervisor Relationship Specialty Start Date End Date Saturnino Valdez [address] [place] [phone] Referring Insulation Batting Machine Operator 10/04/20 Team Status: Inactive Member Role Status Dates David Mckeon MD Primary Care Provider Active Start: November 25, 2024 End: November 25, 2024 Sushila Chacon APRN Attending Provider Active Start: November 25, 2024 End: November 25, 2024 Shuttle Fitting Supervisor Relationship Specialty Start Date End Date Saturnino Valdez [address] [place] [phone] Referring Insulation Batting Machine Operator 10/04/20 Shuttle Fitting Supervisor Relationship Specialty Start Date End Date Saturnino Valdez [address] [place] [phone] Referring Insulation Batting Machine Operator 10/04/20 Shuttle Fitting Supervisor Relationship Specialty Start Date End Date David Mckeon MD PCP - General Family Medicine 10/16/23 Shuttle Fitting Supervisor Relationship Specialty Start Date End Date David Mckeon MD PCP - General Family Medicine 10/16/23 Team Status: Inactive Member Role Status Dates Conor Cortes DO Attending Provider Active Start : January 24, 2025 End: January 24, 2025 Goals (unrecognized section and content) Goals may [...] alternate sectionNot on filedocumented as of this encounterGoals may be documented in an alternate section FOR RECORDS PERTAINING TO PATIENTS WHO ARE [...] BE BASED ON THE PRIMARY CLINICAL RECORDS. [facility]. provides no warranty or guarantee of the accuracy or completeness of information in this document.
--- NOTE | 2025-01-30 20:59 | ED_ITS ---
Documented by User: Carolina De Jesus NP 01/30/25 21:45 HPI HPI - General Adult General Chief complaint: Abdominal Pain Stated complaint: ABDOMINAL PAIN, BACK PAIN Time Seen by Provider: 01/30/25 20:41 Source: patient Mode of arrival: walk-in Limitations: no limitations History of Present Illness HPI narrative: The patient is a 39-year-old female who presents to the emergency department today for evaluation concerns for pelvic/vaginal area pain and bleeding. She reports she had a miscarriage and subsequent D&C on 01/[address] Cortes. Pain is overall been controlled with Tylenol and ibuprofen. She reports today she has had increased pain and cramping with some increased bleeding. She reports she has used a total of 1 sanitary pad today. No sick symptoms of fever/chills or nausea/vomiting. There are some pain to her back and states she did have a headache today. No dizziness/syncope, chest pain, shortness of breath. She is not on any antiplatelet or anticoagulant medications. She denies any vaginal intercourse. Related Data Home Medications ?Medication ?Instructions ?Recorded ?Confirmed metformin 1,000 mg tablet 1,000 mg PO DAILY 01/24/25 0 01/30/25 Previous Rx's ?Medication ?Instructions ?Recorded doxycycline hyclate 100 mg capsule 100 mg PO BID 7 day s #14 caps 01/24/25 ibuprofen 800 mg tablet 800 mg PO Q8H PRN pain 14 da ys #40 01/24/25 tabs acetaminophen 300 mg-codeine 30 mg 1 tab PO Q6H PRN pa in 5 days #20 01/30/25 tablet tabs Allergies Allergy/AdvReac Type Severity Reaction Status Date / Time amoxicillin Allergy Severe Rash Verified 01/30/25 20:39 Penicillins Allergy Severe Rash Verified 01/30/25 20:39 Opioid HPI Opioid Management Most Recent Opioid Data: Last Pain Scale 7 Today, 21:29 Last Pain Assessment 01/24/25, 06:40 Last MAR Pain Assessment 01/24/25, 08:37 Review of Systems ROS Status of ROS 10 or more systems reviewed and unremark able except as noted in history and below PFSH PFSH Medical History (Updated 01/30/25 @ 21:45 by Carolina De Jesus NP) PCOS (polycystic ovarian syndrome) ?E28.2 - Polycystic ovarian syndrome (ICD-10) Surgical History (Updated 01/24/25 @ 06:52 by Greer Diehl) H/O lithotripsy ?Z98.890 - Other specified postprocedural states (ICD-10) Hx of dilation and curettage ?Z98.890 - Other specified postprocedural states (ICD-10) History of cholecystectomy ?Z90.49 - Acquired absence of other specified parts of digestive tract (ICD- 10) Social History Little interest or pleasure in doing things: not at all Feeling down, depressed, or hopeless: not at all Exam Narrative Exam Narrative: Constituational: Awake/ alert, no apparent distress, well hydrated, + obese HENMT: normocephalic, external ears normal, moist oral mucous membranes and oropharynx normal Eyes: EOMI and conjunctivae normal Neck: ROM intact Chest: inspection of chest normal Respiratory: Normal respiratory effort, clear to auscultation bilaterally Cardio: regular rate and regular rhythm GI: + Mild discomfort with palpation over L suprapubic region, abdomen is otherwise soft to palpation and non-tender : Normal external exam, mild/moderate vaginal bleeding, unable to visualize cervix Back: + Discomfort across mid/upper lumbar region, no vertebral tenderness, otherwise normal inspection of back MSK: ROM intact, +NVI Skin: no rashes or petechiae Neuro: no focal deficits Psych: mental status grossly normal Constitutional Vital Signs, click to edit/add: Last Vital Signs Temp 98.7 F 01/30/25 20:36 Pulse 83 01/30/25 22:15 Resp 16 01/30/25 22:15 BP 149/79 H 01/30/25 22:15 Pulse Ox 95 01/30/25 22:15 O2 Del Method Room Air 01/30/25 22:15 Course Vital Signs Vital signs: Vital Signs Temperature 98.7 F 01/30/25 20:36 Pulse Rate 68 01/30/25 20:36 Respiratory Rate 18 01/30/25 20:36 Blood Pressure 170/108 H 01/30/25 20:36 Pulse Oximetry 95 01/30/25 20:36 Oxygen Delivery Method Room Air 01/30/25 20:36 Temperature 98.7 F 01/30/25 20:36 Pulse Rate 83 01/30/25 22:15 Respiratory Rate 16 01/30/25 22:15 Blood Pressure 149/79 H 01/30/25 22:15 Pulse Oximetry 95 01/30/25 22:15 Oxygen Delivery Method Room Air 01/30/25 22:15 Medical Decision Making MDM Narrative Medical decision making narrative: The patient is an overall well-appearing 39-year-old female who who presented to the emergency department today for evaluation concerns for pelvic/vaginal pain following a D&C on 01/24 with reported increased pain and bleeding. Initial examination vital signs overall stable. No acute abdominal findings on exam. She has noted to have vaginal bleeding that seems mild to moderate in quantity reportedly only using 1 sanitary pad today. Labs stable and showed no significant leukocytosis, anemia, thrombocytopenia. Electrolytes including renal and hepatic function stable. Transvaginal/pelvic ultrasound is pending. Care endorsed to ED attending Dr. Pierre 2200p -> to follow-up on pending imaging results and further determine disposition of patient. Medical Records Medical records reviewed: Yes I reviewed the patient's medical records Lab Data Lab results reviewed: Yes I reviewed the patient's lab results Labs: Lab Results 01/30/25 Range/Units 21:00 WBC 10.4 (4.0-11.0) 10^3/uL RBC 4.33 (4.20-5.40) 10^6/uL Hgb 13.1 (12.0-16.0) g/dL Hct 39.2 (36.0-48.0) % MCV 90.5 (81.0-99.0) fL MCH 30.3 (26.7-34.0) pg MCHC 33.4 (29.9-35.2) g/dL RDW 13.1 (11.0-15.0) % Plt Count 315 (150-450) 10^3/uL MPV 8.8 L (9.5-13.5) fL Neut % (Auto) 53.1 (43.0-75.0) % Lymph % (Auto) 34.7 (20.5-60.0) % [place] % (Auto) 7.8 (1.7-12.0) % Eos % (Auto) 2.6 (0.9-7.0) % Baso % (Auto) 0.6 (0.2-2.0) % Neut # (Auto) 5.5 (1.4-6.5) 10^3/uL Lymph # (Auto) 3.6 (1.2-3.8) 10^3/uL [place] # (Auto) 0.8 (0.3-0.8) 10^3/uL Eos # (Auto) 0.3 (0.0-0.7) 10^3/uL Baso # (Auto) 0.1 (0.0-0.1) 10^3/uL Abs Immat Gran (auto) 0.13 H (0.00-0.03) 10^3/uL Imm/Tot Granulo (auto) 1.2 H (0.0-0.5) % Sodium 140 (136-145) mmol/L Potassium 3.7 (3.5-5.1) mmol/L Chloride 103 (98-107) mmol/L Carbon Dioxide 26.9 (21.0-32.0) mmol/L Anion Gap 13.8 BUN 9.0 (7.0-18.0) mg/dL Creatinine 0.89 (0.55-1.02) mg/dL Est GFR ( Amer) >60 (>=60 mL/min/1.73m^2) Est GFR (Non-Af Amer) >60 (>=60 mL/min/1.73m^2) BUN/Creatinine Ratio 10.1 Glucose 128 H (74-106) mg/dL Calcium 9.0 (8.5-10.1) mg/dL Total Bilirubin 0.3 (0.2-1.0) mg/dL AST 31 (15-37) U/L ALT 27 (14-59) U/L Alkaline Phosphatase 75 (46-116) U/L Total Protein 7.0 (6.4-8.2) g/dL Albumin 3.1 L (3.4-5.0) g/dL Globulin 3.9 g/dL Albumin/Globulin Ratio 0.8 Discharge Plan Discharge Chief Complaint: Abdominal Pain Clinical Impression: Pelvic pain Patient Disposition: Home, Self-Care Time of Disposition Decision: 23:31 Condition: Good Mode of Transportation: Private Vehicle Prescriptions / Home Meds: New acetaminophen-codeine 300-30 mg tablet 1 tab PO Q6H PRN (Reason: pain) 5 Days Qty: 20 0RF No Action metformin 1,000 mg tablet 1,000 mg PO DAILY doxycycline hyclate 100 mg capsule 100 mg PO BID 7 Days Qty: 14 0RF ibuprofen 800 mg tablet 800 mg PO Q8H PRN (Reason: pain) 14 Days Qty: 40 0RF Print Language: Welsh Instructions: Pelvic Pain (ED) Referrals: DAVID GIMENEZ [Primary Care Provider, Family Practice] - 1 week Documented by User: Vikram Pierre MD 01/30/25 23:34 HPI HPI - General Adult General Chief complaint: Abdominal Pain Stated complaint: ABDOMINAL PAIN, BACK PAIN Time Seen by Provider: 01/30/25 20:41 Related Data Home Medications ?Medication ?Instructions ?Recorded ?Confirmed metformin 1,000 mg tablet 1,000 mg PO DAILY 01/24/25 0 01/30/25 Previous Rx's ?Medication ?Instructions ?Recorded doxycycline hyclate 100 mg capsule 100 mg PO BID 7 day s #14 caps 01/24/25 ibuprofen 800 mg tablet 800 mg PO Q8H PRN pain 14 da ys #40 01/24/25 tabs acetaminophen 300 mg-codeine 30 mg 1 tab PO Q6H PRN pa in 5 days #20 01/30/25 tablet tabs Allergies Allergy/AdvReac Type Severity Reaction Status Date / Time amoxicillin Allergy Severe Rash Verified 01/30/25 20:39 Penicillins Allergy Severe Rash Verified 01/30/25 20:39 Opioid HPI Opioid Management Most Recent Opioid Data: Last Pain Scale 7 Today, 21:29 Last Pain Assessment 01/24/25, 06:40 Last MAR Pain Assessment 01/24/25, 08:37 PFSH PFSH Medical History (Updated 01/30/25 @ 21:45 by Carolina De Jesus NP) PCOS (polycystic ovarian syndrome) ?E28.2 - Polycystic ovarian syndrome (ICD-10) Surgical History (Updated 01/24/25 @ 06:52 by Greer Diehl) H/O lithotripsy ?Z98.890 - Other specified postprocedural states (ICD-10) Hx of dilation and curettage ?Z98.890 - Other specified postprocedural states (ICD-10) History of cholecystectomy ?Z90.49 - Acquired absence of other specified parts of digestive tract (ICD- 10) Social History Little interest or pleasure in doing things: not at all Feeling down, depressed, or hopeless: not at all Exam Constitutional Vital Signs, click to edit/add: Last Vital Signs Temp 98.7 F 01/30/25 20:36 Pulse 83 01/30/25 22:15 Resp 16 01/30/25 22:15 BP 149/79 H 01/30/25 22:15 Pulse Ox 95 01/30/25 22:15 O2 Del Method Room Air 01/30/25 22:15 Course Vital Signs Vital signs: Vital Signs Temperature 98.7 F 01/30/25 20:36 Pulse Rate 68 01/30/25 20:36 Respiratory Rate 18 01/30/25 20:36 Blood Pressure 170/108 H 01/30/25 20:36 Pulse Oximetry 95 01/30/25 20:36 Oxygen Delivery Method Room Air 01/30/25 20:36 Temperature 98.7 F 01/30/25 20:36 Pulse Rate 83 01/30/25 22:15 Respiratory Rate 16 01/30/25 22:15 Blood Pressure 149/79 H 01/30/25 22:15 Pulse Oximetry 95 01/30/25 22:15 Oxygen Delivery Method Room Air 01/30/25 22:15 Medical Decision Making MDM Narrative Medical decision making narrative: The patient is an overall well-appearing 39-year-old female who who presented to the emergency department today for evaluation concerns for pelvic/vaginal pain following a D&C on 01/24 with reported increased pain and bleeding. Initial examination vital signs overall stable. No acute abdominal findings on exam. She has noted to have vaginal bleeding that seems mild to moderate in quantity reportedly only using 1 sanitary pad today. Labs stable and showed no significant leukocytosis, anemia, thrombocytopenia. Electrolytes including renal and hepatic function stable. Transvaginal/pelvic ultrasound is pending. Care endorsed to ED attending Dr. Pierre 0p -> to follow-up on pending imaging results and further determine disposition of patient. JK 11:30pm ultrasound suggest heterogeneous endometrium with potential fluid collection. Case discussed with Dr. Gu covering Dr. Cortes. The patient will be discharged home. She has an appointment with her carding machine operator in 3 days but she will contact the office to determine if she can be seen sooner. She is already on doxycycline. At this point I do not suspect endometritis. Treatment diagnosis and follow-up were discussed with the patient. Differential Diagnosis Differential Diagnosis: Retained products of conception, postprocedural pain, endometritis Lab Data Lab results reviewed: Yes I reviewed the patient's lab results Labs: Lab Results 01/30/25 Range/Units 21:00 WBC 10.4 (4.0-11.0) 10^3/uL RBC 4.33 (4.20-5.40) 10^6/uL Hgb 13.1 (12.0-16.0) g/dL Hct 39.2 (36.0-48.0) % MCV 90.5 (81.0-99.0) fL MCH 30.3 (26.7-34.0) pg MCHC 33.4 (29.9-35.2) g/dL RDW 13.1 (11.0-15.0) % Plt Count 315 (150-450) 10^3/uL MPV 8.8 L (9.5-13.5) fL Neut % (Auto) 53.1 (43.0-75.0) % Lymph % (Auto) 34.7 (20.5-60.0) % [place] % (Auto) 7.8 (1.7-12.0) % Eos % (Auto) 2.6 (0.9-7.0) % Baso % (Auto) 0.6 (0.2-2.0) % Neut # (Auto) 5.5 (1.4-6.5) 10^3/uL Lymph # (Auto) 3.6 (1.2-3.8) 10^3/uL [place] # (Auto) 0.8 (0.3-0.8) 10^3/uL Eos # (Auto) 0.3 (0.0-0.7) 10^3/uL Baso # (Auto) 0.1 (0.0-0.1) 10^3/uL Abs Immat Gran (auto) 0.13 H (0.00-0.03) 10^3/uL Imm/Tot Granulo (auto) 1.2 H (0.0-0.5) % Sodium 140 (136-145) mmol/L Potassium 3.7 (3.5-5.1) mmol/L Chloride 103 (98-107) mmol/L Carbon Dioxide 26.9 (21.0-32.0) mmol/L Anion Gap 13.8 BUN 9.0 (7.0-18.0) mg/dL Creatinine 0.89 (0.55-1.02) mg/dL Est GFR ( Amer) >60 (>=60 mL/min/1.73m^2) Est GFR (Non-Af Amer) >60 (>=60 mL/min/1.73m^2) BUN/Creatinine Ratio 10.1 Glucose 128 H (74-106) mg/dL Calcium 9.0 (8.5-10.1) mg/dL Total Bilirubin 0.3 (0.2-1.0) mg/dL AST 31 (15-37) U/L ALT 27 (14-59) U/L Alkaline Phosphatase 75 (46-116) U/L Total Protein 7.0 (6.4-8.2) g/dL Albumin 3.1 L (3.4-5.0) g/dL Globulin 3.9 g/dL Albumin/Globulin Ratio 0.8 Imaging Data Transvaginal/pelvic ultrasound: Radiologist's impression: Heterogeneous endometrium with potential fluid collection, correlate with test and follow-up or further evaluation as clinically warranted. Discharge Plan Discharge Chief Complaint: Abdominal Pain Clinical Impression: Pelvic pain Patient Disposition: Home, Self-Care Time of Disposition Decision: 23:31 Condition: Good Mode of Transportation: Private Vehicle Prescriptions / Home Meds: New acetaminophen-codeine 300-30 mg tablet 1 tab PO Q6H PRN (Reason: pain) 5 Days Qty: 20 0RF No Action metformin 1,000 mg tablet 1,000 mg PO DAILY doxycycline hyclate 100 mg capsule 100 mg PO BID 7 Days Qty: 14 0RF ibuprofen 800 mg tablet 800 mg PO Q8H PRN (Reason: pain) 14 Days Qty: 40 0RF Print Language: Welsh Instructions: Pelvic Pain (ED) Referrals: DAVID GIMENEZ [Primary Care Provider, Family Practice] - 1 week
[2025-01-30] MEDS: FENTANYL CITRATE/PF 100 MCG/2 ML VIAL 50 MCG IV (21:04)
[2025-01-30 21:18] LABS: Basophils Absolute Auto 0.1 10^3/uL (0.0-0.1); Basophils Percent Auto 0.6 % (0.2-2.0); Eosinophils Absolute Auto 0.3 10^3/uL (0.0-0.7); Eosinophils Percent Auto 2.6 % (0.9-7.0); Hematocrit 39.2 % (36.0-48.0); Hemoglobin 13.1 g/dL (12.0-16.0); Immature Granulocytes Abs Auto 0.13 10^3/uL (0.00-0.03); Immature Granulocytes Pct Auto 1.2 % (0.0-0.5); Lymphocytes Absolute Auto 3.6 10^3/uL (1.2-3.8); Lymphocytes Percent Auto 34.7 % (20.5-60.0); Mean Corpuscular HGB Conc 33.4 g/dL (29.9-35.2); Mean Corpuscular Hemoglobin 30.3 pg (26.7-34.0); Mean Corpuscular Volume 90.5 fL (81.0-99.0); Mean Platelet Volume 8.8 fL (9.5-13.5); Monocytes Absolute Auto 0.8 10^3/uL (0.3-0.8); Monocytes Percent Auto 7.8 % (1.7-12.0); Neutrophils Absolute Auto 5.5 10^3/uL (1.4-6.5); Neutrophils Percent Auto 53.1 % (43.0-75.0); Platelet Count 315 10^3/uL (150-450); Red Blood Count 4.33 10^6/uL (4.20-5.40); Red Cell Distribution Width 13.1 % (11.0-15.0); White Blood Count 10.4 10^3/uL (4.0-11.0)
[2025-01-30] MEDS: ONDANSETRON PF 4 MG/2 ML VIAL IV (21:20)
[2025-01-30 21:33] LABS: Alanine Aminotransferase 27 U/L (14-59); Albumin Globulin Ratio 0.8; Albumin Level 3.1 g/dL (3.4-5.0); Alkaline Phosphatase 75 U/L (46-116); Anion Gap 13.8; Aspartate Amino Transferase 31 U/L (15-37); BUN Creatinine Ratio 10.1; Bilirubin Total 0.3 mg/dL (0.2-1.0); Carbon Dioxide 26.9 mmol/L (21.0-32.0); Chloride 103 mmol/L (98-107); Estimated GFR (African America >60 (>=60 mL/min/1.73m^2); Estimated GFR (Non-African Ame >60 (>=60 mL/min/1.73m^2); Globulin 3.9 g/dL; Glucose 128 mg/dL (74-106); Potassium 3.7 mmol/L (3.5-5.1); Sodium 140 mmol/L (136-145)
[2025-01-30 22:15] VITALS: BP 149/79; PULSE 83; O2SAT 95
[2025-01-30] MEDS: ACETAMINOPHEN 300 MG/ 30 MG CODEINE TABLET 1 TAB PO (23:37)
== END 2025-01-30 23:46 | disposition home or self-care (01) ==
PROVIDERS: Nurse Practitioner; Emergency Provider Emergency Medicine; PCP Family Medicine
DX: R10.2 Pelvic and perineal pain (principal); Z98.890 Other specified postprocedural states; Z90.49 Acquired absence of other specified parts of digestive tract
CPT/HCPCS: 36415; 76830; 80053; 85025; 96374; 96375; 99284; J2405; J3010

== ENCOUNTER 2025-02-02 16:21 | Outpatient (OUT) | payer OTHER, SELFPAY ==
--- OUTSIDE RECORDS SUMMARY | 2025-02-02 15:33 | XMS_ITS ---
Author Name Auto Generated Organization OHIP Support Name Relationship Address Phone DAVID ARIZMENDI Next of Kin Unknown [phone] David Arizmendi Next of Kin [address] [place] [address] + Maria Teresa, Marma Next of Kin Unknown [phone] DAVID ARIZMENDI Next of Kin Unknown [phone] DAVID ARIZMENDI Next of Kin Unknown [...] Unknown Unavailable [place] [address] [phone] DAVID ARIZMENDI Next of Kin Unknown Unavailable MARIA TERESA, MARMA Next of Kin Unknown Unavailable MARIA TERESA, MARMA Next of Kin Unknown Unavailable NOT GIVEN Next of [place] [address] [phone] DAVID ARIZMENDI Next of Kin Unknown Unavailable MARIA TERESA, MARMA Next of Kin Unknown Unavailable MARIA TERESA, MARMA Next of Kin Unknown Unavailable NOT GIVEN [place] [address] [phone] DAVID ARIZMENDI Next of Kin Unknown Unavailable MARIA TERESA, MARMA Next of Kin Unknown Unavailable MARIA TERESA, MARMA Next of Kin Unknown Unavailable [place] [address] [phone] Care Team Providers Care Full Stack Python Developer Name Role Phone LEONEL RODRIGUEZ Attending Unavailable [...] Referring Unavailable Sophia, Conor Attending Unavailable Sophia, Ocnor Admitting Unavailable DUDZIAK, LEONEL Referring Unavailable MICHEL [...] MICHEL Referring Unavailable JOSEPH, MICHEL Referring Unavailable OJSEPH, MICHEL Referring Unavailable JOSEPH, MICHEL Referring Unavailable DUDZIAK, LOENEL Referring Unavailable OMARI, TIFFANY Attending Unavailable JOSEPH, [...] DATE TYPE CONDITION / CODE ATTENDING STATUS [facility] 01/09/2025 Active with inconclusive viability, single or unspecified fetus (HCC) / O36.80X0(ICD-10) NA Active [facility] 12/30/2024 Active Encounter for pr egnancy test, result positive (HCC) / Z32.01(ICD-10) NA Active [facility] 11/22/2024 Unknown Cyst / FREETEXT(AOF) Cale ELLIS Active [facility] 11/08/2024 Unknown 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) NA Active [facility] 11/08/2024 Unknown Encounter for ge neral adult medical examination without abnormal findings / Z00.00(ICD-10) DAVID GIMENEZ Active [facility] 11/08/2024 Unknown Epidermal cyst / L72.0(ICD-10) DAVID GIMENEZ Active [facility] 11/08/2024 Unknown Annual Exam / FREETEXT(AOF) DEFDAVID VICENTE [facility] 10/07/2024 Unknown Polycystic ovari an syndrome / E28.2(ICD-10) DAVID GIMENEZ [facility] 10/07/2024 Unknown Low back pain, unspecified / M54.50(ICD-10) DAVID GIMENEZ Active [facility] 10/07/2024 Unknown Back Pain / FREETEXT(AOF) DEFDAVID VICENTE [facility] 09/12/2024 Active Female infertili ty / N97.9(ICD-10) NA Active [facility] 07/06/2024 Unknown Other acute sinu sitis / J01.80(ICD-10) AMMYDAVID [facility] 07/06/2024 Unknown Cough / FREETEXT(AOF) DEFDAVID VICENTE [facility] 07/06/2024 Unknown Headache / FREETEXT(AOF) DEFCINTHIA DOMINICK Reyes Les [facility] 07/06/2024 Unknown Sore Throat / FREETEXT(AOF) DAVID GIMENEZ [facility] 05/27/2024 Active Primary female infertility / N97.9(ICD-10) NA Active [facility] 04/29/2024 Active Pre-procedure la b exam / Z01.812(ICD-10) MIGUEL LEVY Active [facility] 04/29/2024 Active Fertility testin g / Z31.41(ICD-10) MIGUEL LEVY Active [facility] 04/15/2024 Active Irregular menses / N92.6(ICD-10) NA Active [facility] 04/15/2024 Active Encounter for fe rtility testing / Z31.41(ICD-10) NA Active [facility] 03/02/2024 Unknown Sleep Apnea / FREETEXT(AOF) VIOLETA VIDAL Active [facility] 02/05/2024 Unknown Encounter for fe rtility testing / Z31.41(ICD-10) NA Active [facility] PROCEDURES No Procedure Records Found RESULTS L Observed: 01/24/2025 8:04 AM Status: F Source: [facility] ----- ------- Specimen: [id number] Received: 01/24/25 Status: JULIOCESAR Shea Num: [id number] Spec Type: Surgical Subm Dr: Conor Cortes Tissues: A Products of Conception - Spontaneous or Missed (PRODUCTS OF CONCEPT Procedures: HE/Kylie Marrero/Cinthya L4 ----- ------- Age/ Patient Sex Location Account Attending Physician ----- ------- Tin Arizmendi 39/F LABELL [id number] Conor Cortes ----- ------- SPEC NUM: [id number] RECD: 01/24/25 STATUS: JULIOCESAR WEAVERAnnabel NUM: [id number] ISSAC: 01/24/[address]: Conor Cortes ENTERED: 01/24/[address] [facility] [address]: Gudelia,Lab SPEC TYPE: Surgical DEPT: DOUG FERNÁNDEZ ENTERED BY: [id number] RECV BY: [id number] ORDERED: HE/2, Gross/Micro L4 ORDERED: HE/2, Gross/Micro [...] with chorionic villi. No tissue is identified. Agriculture Internship sections of the chorionic villi are submitted in A1 with employee's representative sections of the decidua submitted in A2. (2, , [id number] A)JENY ----- ------- Specimen: [id number] Received: 01/24/25 Status: CURLYLes Valdivia Num: [id number] Spec Type: Surgical Subm : Conor Cortes Tissues: A Products of Conception - Spontaneous or Missed (PRODUCTS OF CONCEPT Procedures: HE/2, Gross/Micro L4 ----- ------- Patient: Tin Arizmendi [id number] (Continued) ----- ------- Specimen: [id number] Received: 01/24/25 (Continued) Signed (signature on file) Keagan Ferguson MD 01/25/25 0940 ----- ------- Specimen: [id number] Received: 01/24/25 Status: JULIOCESAR Valdivia Num: [id number] Spec Type: Surgical Subm Dr: Conor Cortes Tissues: A Products of Conception - Spontaneous or Missed (PRODUCTS OF CONCEPT Procedures: HE/2, Gross/Micro L4 ----- ------- Patient: Tin Arizmendi [id number] (Continued) ----- ------- Specimen: [id number] Received: 01/24/25 (Continued) Microscopic Description Microscopic examination is performed CPT Codes 73136 ----- ------- ----- ------- Specimen: [id number] Received: 01/24/25 Status: JULIOCESAR Valdivia Num: [id number] Spec Type: Surgical Subm Dr: Conor Cortes Tissues: A Products of Conception - Spontaneous or Missed (PRODUCTS OF CONCEPT Procedures: HE/2 Gross/Micro L4 ----- ------- Patient: Tin Arizmendi [id number] (Continued) ----- ------- Signed (signature on file) Keagan Ferguson MD 01/25/25 0940 PROGRESS Observed: 01/09/2025 3:43 PM Status: COMPLETED Source: [facility] HNO ID: [id number] Author: MIGUEL LEVY APRN.SOCIAL SERVICES DIRECTOR Service: ? Author Type: Nurse Practitioner Type: Progress Notes Filed: 01/09/2025 16:05 Note Text: Spoke with Tin, Reviewed diagnosis of missed from today's ultrasound. Discussed options for medical, surgical or expectant management. Leaning towards medical management but wants to further review with her prior to making final decisions. Is meeting with her SET DECORATOR tomorrow, may follow up with care from that office as well. Will call back and let us know how she wishes to proceed. Miguel Levy APRN.SOCIAL SERVICES DIRECTOR January 09, 2025 4:05 PM B-HCG SERPL-ACNC Collected: 11:19 AM Status: F Source: [facility] Order Comment: Specimen Type : BLOOD SPECIMEN Ordering Facility: [facility] Address: [address] [place] [address] TYPE CODE TESTS RESULT OUT OF RANGE REFERENCE UNITS [facility] B-HCG SerPl-aCnc 18533.0 High <5.0 mIU/mL Result Comment: QUANTITATIVE HCG NORMAL RANGES Weeks of Gestation (Weeks Since LMP) 3 Weeks (5.8-71.2 mIU/mL) 4 Weeks (9.5-750 mIU/mL) 5 Weeks (217-7138 mIU/mL) 6 Weeks (158-29623 mIU/mL) 7 Weeks (3697-066668 mIU/mL) 8 Weeks (93002-914661 mIU/mL) 9 Weeks (89138-158525 mIU/mL) 10 Weeks (98159-779112 mIU/mL) 12 Weeks (54818-352434 mIU/mL) Referenced to 4th IS of [facility] Performed By: #### 33329-4 # ### [facility] CLIA [id number] [address] [place] [address] [place] CNNURSE Observed: 01/09/2025 10:40 AM Status: COMPLETED Source: [facility] Nurse Visit (REIAV) TIN ARIZMENDI ([id number]) 1985 F Date Time Provider Department 01/09/25 10:40 AM US TECH 1 [facility] REJ DEVINV During your visit today, we recorded the following information about you: Miguel Levy APRN.CNP 01/09/2025 4:05 PM Signed Spoke with Tin, Reviewed diagnosis of missed from today's ultrasound. Discussed options for medical, surgical or expectant management. Leaning towards medical management but wants to further review with her prior to making final decisions. Is meeting with her SET DECORATOR tomorrow, may follow up with care from that office as well. Will call back and let us know how she wishes to proceed. Miguel Levy APRN.SOCIAL SERVICES DIRECTOR January 09, 2025 4:05 PM Referring Provider: MICHEL JOSEPH [[id number]] Allergies As of Date: 01/09/2025 Noted Allergy Reaction AMOXACILLIN (AMOXICILLIN) 03/09/2023 4 - Hives Comments: Skin test is negative. Challenge pending PENICILLINS 10/15/2020 4 - Hives Date Reviewed: 11/25/2024 Reviewed by: Nilton Zhang, LAUREN - Fully Assessed Visit Diagnosis:Encounter for test, result positive (HCC) [Z32.01] Order(s):OBSTETRIC ULTRASOUND [facility] [[id number]] Order #: [id number]. #:[id number]: [id number] Prescriptions as of 01/09/2025 - progesterone [...] Observed: 12/30/2024 5:36 PM Status: COMPLETED Source: [facility] HNO ID: [id number] Author: SHYLA ORR APRN.SOCIAL SERVICES DIRECTOR Service: ? Author Type: Nurse Practitioner Type: Progress Notes Filed: 12/30/2024 17:37 Note Text: spoke with Tin Please schedule the patient for the following- Location: [facility] Provider: nurse Visit type: scan Reason for visit/appointment notes: scan Date: 01/09 Time (requested): 1040 If slot is full, please schedule the closest open slot. Call to patient needed: no PROGRESS Observed: 12/30/2024 1:28 PM Status: COMPLETED Source: [facility] HNO ID: [id number] Author: MICHEL JOSEPH MD Service: ? Author [...] Observed: 12/30/2024 10:10 AM Status: COMPLETED Source: [facility] Nurse Visit (REIBD) TIN ARIZMENDI ([id number]) 1985 F Date Time Provider Department 12/30/24 10:10 AM [employer] 3 [facility] REIBD During your visit today, we [...] December 30, 2024 1:32 PM Shyla Orr APRN.SOCIAL SERVICES DIRECTOR 12/30/2024 5:37 PM Signed spoke with Tin Please schedule the patient for the following- Location: [facility] Provider: nurse Visit type: scan Reason for visit/appointment notes: scan Date: 01/09 Time (requested): 1040 If slot is full, please schedule the closest open slot. Call to patient needed: no Referring Provider: KOBI WEINER [[id number]] Allergies As of Date: 12/30/2024 Noted Allergy Reaction AMOXACILLIN (AMOXICILLIN) 03/09/2023 4 - Hives Comments: Skin test is negative. Challenge pending PENICILLINS 10/15/2020 4 - Hives Date Reviewed: 11/25/2024 Reviewed by: Nilton Zhang RN - Fully Assessed Visit Diagnosis:Encounter for test, result positive (HCC) [Z32.01] Order(s):OBSTETRIC ULTRASOUND [facility] [[id number]] Order #: [id number]. #:[id number]: 1 OBSTETRIC ULTRASOUND I [] Order #: [id number]: 1 FUTURE Prescriptions as of 12/30/2024 - [...] Observed: 12/16/2024 2:00 PM Status: COMPLETED Source: [facility] ID: [id number] Author: KOBI WEINER PA-C Service: ? Author Type: Physician Ribbon Blocker Type: Progress Notes Filed: 12/16/2024 14:20 Note Text: [facility] END[facility]FERT[facility] New SERVICE DATE: 12/16/2024 SERVICE TIME: 2:00 PM NAME: Tin Arizmendi VIRTUAL VISIT PROGRESS NOTE This is a virtual visit. It required patient-provider interaction for the medical decision making as documented below. Patient name and birthday verified: Yes Location of patient: [place] Persons Present: patient I have communicated my name and active licensure. The patient's identity and physical location were verified at the time of this visit. Either the patient or their legal employee's representative has been informed of the risks [...] Collected: 5 8:21 AM Status: F Source: [facility] Comment: Specimen Type : BLOOD SPECIMEN Ordering Facility: [facility] Address: [address] [place] [address] TYPE CODE TESTS RESULT OUT OF RANGE REFERENCE UNITS LAB 13186-7(LOINC) B-HCG SerPl-aCnc 252.5 High <5.0 mIU/mL Result Comment: QUANTITATIVE HCG NORMAL RANGES Weeks of Gestation (Weeks Since LMP) 3 Weeks (5.8-71.2 mIU/mL) 4 Weeks (9.5-750 mIU/mL) 5 Weeks (217-7138 mIU/mL) 6 Weeks (158-41268 mIU/mL) 7 Weeks (3697-564707 mIU/mL) 8 Weeks (37290-695829 mIU/mL) 9 Weeks (21022-609373 mIU/mL) 10 Weeks (01480-008286 mIU/mL) 12 Weeks (94805-428072 mIU/mL) Referenced to 4th IS of NIBSC Performed By: #### 35571-1 # ### [facility] CLIA [id number] [address] [place] [address] STATES OF [facility] B-HCG SERPL-ACNC Collected: 5 5:05 PM Status: F Source: [facility] Order Comment: Specimen Type : BLOOD SPECIMEN Ordering Facility: [facility] Address: [address] [place] [address] TYPE CODE TESTS RESULT OUT OF RANGE REFERENCE UNITS LAB 02349-7(LOINC) B-HCG SerPl-aCnc 164.2 High <5.0 mIU/mL Result Comment: QUANTITATIVE HCG NORMAL RANGES Weeks of Gestation (Weeks Since LMP) 3 Weeks (5.8-71.2 mIU/mL) 4 Weeks (9.5-750 mIU/mL) 5 Weeks (217-7138 mIU/mL) 6 Weeks (158-47193 mIU/mL) 7 Weeks (3697-765198 mIU/mL) 8 Weeks (82175-401933 mIU/mL) 9 Weeks (50652-660771 mIU/mL) 10 Weeks (91362-575195 mIU/mL) 12 Weeks (95787-744244 mIU/mL) Referenced to 4th IS of NIBSC Performed By: #### 34387-5 # ### [facility] CLIA [id number] [address] [place], [place] [address] [place] Observed: 12/09/2024 12:00 AM Status: COMPLETED Source: [facility] Telephone (REIBD) TIN ARIZMENDI ([id number]) 1985 F Date Time Provider Department 12/09/24 [...] Observed: 12/09/2024 12:00 AM Status: COMPLETED Source: [facility] Telephone (REIBD) TIN ARIZMENDI ([id number]) 1985 F Date Time Provider Department 12/09/24 [...] positive [Z32.01] Order(s):HCG QUANTITATIVE [SQHCGQT] Order #: [id number] STANDING Prescriptions as of 12/12/2024 - progesterone [...] Observed: 11/25/2024 1:16 PM Status: COMPLETED Source: [facility] HNO ID: [id number] Author: NILTON ZHANG RN Service: ? Author Type: Registered Nurse Type: Progress Notes Filed: 11/25/2024 13:18 Note Text: RN called patient,no answer, left VM. Plan given for trigger and TI cycle per physician,via [employer] message sent with instructions. Nilton Zhang RN November 25, 2024 1:16 PM PROGRESS Observed: 11/25/2024 9:25 AM Status: COMPLETED Source: [facility] HNO ID: [id number] Author: NILTON ZHANG RN Service: ? Author [...] 11/25/2024 6:47 AM S tatus: F Source: [facility] Order Comment: Specimen Type : BLOOD SPECIMEN Ordering Facility: [facility] Address: [address] [place] [address] TYPE CODE TESTS RESULT OUT OF RANGE [...] 3243 pg/mL Second trimester : 1561 to 05129 pg/mL Third trimester : 8285 to >42235 pg/mL Post-menopausal Estradiol reference range: < 41 pg/mL Reference: 1. Estradiol - E2 (Estradiol III) [package insert V 3.0 Slovak]. [facility], [place], [place], February 2016. Performed By: #### 2243-4 ## ## [facility] CLIA [id number] [address] [place] [address] [facility] [place] CNPN Observed: 11/25/2024 12:00 AM Status: COMPLETED Source: [facility] Telephone (REIBD) TIN ARIZMENDI ([id number]) 1985 F Date Time Provider Department 11/25/24 [...] Observed: 11/24/2024 11:33 AM Status: COMPLETED Source: [facility] ID: [id number] Author: TIFFANY GONZALEZ MD Service: ? Author Type: Physician Type: Progress Notes Filed: 11/24/2024 11:34 Note Text: [place] Attending Physician Note: Ultrasound and lab results reviewed. Based on review of ultrasound and lab results, medication dose and follow up date plans provided. See cycle flowsheet for dosing details. Tiffany Gonzalez MD, CROW PROGRESS Observed: 11/24/2024 7:46 AM Status: COMPLETED Source: [facility] HNO ID: [id number] Author: MARY ANN KIRKLAND RN Service: ? [...] cycle per physician, see flowsheet for details. BRAINDIGITt message sent. Medications reviewed and verified, instructions given. Patient denies any questions or concerns. Message sent to scheduling pool for next appt. Location: [facility] Visit type: Baseline SO us/e2 Date: 11/25 @ 0700 LAUREN Haque RN November 24, 2024 12:39 PM ESTRADIOL SERPL-MCNC Collected: 11/24/2024 7:09 AM S tatus: F Source: [facility] Order Comment: Specimen Type : BLOOD SPECIMEN Ordering Facility: [facility] Address: [address] [place] [address] TYPE CODE TESTS RESULT OUT OF RANGE [...] 3243 pg/mL Second trimester : 1561 to 68571 pg/mL Third trimester : 8285 to >69493 pg/mL Post-menopausal Estradiol reference range: < 41 pg/mL Reference: 1. Estradiol - E2 (Estradiol III) [package insert V 3.0 Slovak]. [facility], [place], [place], February 2016. Performed By: #### 2243-4 ## ## [facility] CLIA [id number] [address] [place] [address] [facility] Collected: 9:11 PM Status: COMPLETED Source: [facility] TYPE CODE TESTS RESULT OUT OF RANGE REFERENCE UNITS LAB C54-11182&rpt Surgical Pathology Result Comment: [facility] [address] [place] [address] Surgical Pathology Consultation Patient Name:TIN ARIZMENDI:1985 (Age: 39)Gender:FTaken:11/22/2024Reported:11/29/2024Physician(s):Millie Ellis MD ([phone])Copy To: Rec. #:[id number]: #[id number] Final Pathologic Diagnosis Skin and soft tissue, abdomen, excisional biopsy: Benign epidermal/epidermoid inclusion cyst (one), ruptured, with marked acute inflammation, mild chronic inflammation and granulation tissue, abdomen. Report Electronically Signed [facility]/11/29/2024IRLETTY SANCHEZ MD Interpretation performed at [facility], [address] [place] [address], License number: [id number]. Clinical History Inclusion cyst L72.0. Gross Description Received in formalin labeled KRUMNOW, abdominal cyst is a pale-butt wrinkled ellipse of skin, 2.3 x 1.1 x 0.1 cm. No lesion or area of discoloration is definitively identified. The resection margin is inked green. The specimen is serially sectioned to reveal a cystic structure filled with friable vegetative material. Two employee's representative cross sections are submitted in a single cassette. (1, ns, [id number],m8.1) DM. dm/11/23/2024NSK Specimen(s) Received Left abdomen Fee Codes(s): 1; 00930 PROGRESS Observed: 11/21/2024 10:51 AM Status: COMPLETED Source: [facility] HNO ID: [id number] Author: MARY ANN KIRKLAND RN Service: ? [...] hasn't tried that yet. Message sent to [facility]. Mary Ann Kirkland RN RN called patient, name and verified. Plan given for SO cycle per physician, see flowsheet for details. MyChart message sent. Medications reviewed and verified, instructions given. Patient denies any questions or concerns. Message sent to scheduling pool for next appt. Location: [facility] Visit type: Monitoring, SO us/e2 Date: 11/24 @ 0740 am Mary Ann Kirkland RN November 21, 2024 2:24 PM ESTRADIOL SERPL-MCNC Collected: 11/21/2024 7:52 AM S tatus: F Source: [facility] Order Comment: Specimen Type : BLOOD SPECIMEN Ordering Facility: [facility] Address: [address] [place] [address] TYPE CODE TESTS RESULT OUT OF RANGE [...] 3243 pg/mL Second trimester : 1561 to 87552 pg/mL Third trimester : 8285 to >74229 pg/mL Post-menopausal Estradiol reference range: < 41 pg/mL Reference: 1. Estradiol - E2 (Estradiol III) [package insert V 3.0 Slovak]. [facility], [place], [place], February 2016. Performed By: #### 2243-4 ## ## [facility] CLIA [id number] [address] [place] [address] [facility] PROGRESS Observed: 11/14/2024 1:50 PM Status: COMPLETED Source: [facility] HNO ID: [id number] Author: MARY ANN KIRKLAND RN Service: ? Author Type: Registered Nurse Type: Progress Notes Filed: 11/14/2024 14:01 Note Text: Tin Arizmendi was here today for a baseline scan. Location: [place] Visit type: monitoring OI, us/e2 Date: 11/21 [...] cycle per physician, see flowsheet for details. [employer] message sent. Medications reviewed and verified, instructions given. Patient denies any questions or concerns. Message sent to scheduling pool for next appt. Mary Ann Kirkland RN November 14, 2024 2:00 PM ESTRADIOL SERPL-MCNC Collected: 11/14/2024 7:08 AM S tatus: F Source: [facility] Order Comment: Specimen Type : BLOOD SPECIMEN Ordering Facility: [facility] Address: [address] [place] [address] TYPE CODE TESTS RESULT OUT OF RANGE [...] 3243 pg/mL Second trimester : 1561 to 75171 pg/mL Third trimester : 8285 to >51322 pg/mL Post-menopausal Estradiol reference range: < 41 pg/mL Reference: 1. Estradiol - E2 (Estradiol III) [package insert V 3.0 Slovak]. [facility], [place], [place], February 2016. Performed By: #### 2243-4 ## ## [facility] CLIA [id number] [address] [place] [address] [facility] CNPN Observed: 11/14/2024 12:00 AM Status: COMPLETED Source: [facility] Telephone (REIBD) TIN ARIZMENDI ([id number]) 1985 F Date Time Provider Department 11/14/24 [...] called stating she needs a PA. [facility] message I received. Still showing on [employer]'s end that a PA is needed. Started cover my meds. Ayala: [id number] is covered by current benefit plan. [...] Date Reviewed: 11/14/2024 Reviewed by: Leonel Cabezas APRN.SOCIAL SERVICES DIRECTOR - Fully Assessed Reason for Visit: needs [...] Observed: 11/11/2024 12:00 AM Status: COMPLETED Source: [facility] Telephone (REIBD) TIN ARIZMENDI ([id number]) 1985 F Date Time Provider Department 11/11/24 MICHEL JOSEPH During your visit today, we recorded the following information about you: Miguel Barbour 11/11/2024 8:06 AM Signed Super ov Patient started period- calling to schedule baseline Nilton Zhang RN 11/11/2024 8:37 AM Signed Returned call to patient. Scheduled for baseline for 11/14/24 @ 0740 at [facility]. Pt. States she needs refill on letrozole and trigger shot. Medication orders pended. Nilton Zhang RN November 11, 2024 8:32 AM Leonel Cabezas APRN.[facility] 11/14/2024 7:28 AM Signed The following approved [...] mouth once daily. Authorizing Provider: LEONEL CABEZAS APRN.SOCIAL SERVICES DIRECTOR Allergies As of Date: 11/11/2024 Noted Allergy Reaction AMOXACILLIN (AMOXICILLIN) 03/09/2023 4 - Hives Comments: Skin test is negative. Challenge pending PENICILLINS 10/15/2020 4 - Hives Date Reviewed: 10/19/2024 Reviewed by: Nam Arias RN - Fully Assessed Reason for Visit: Appointment [[id number]] Primary Visit Diagnosis:Encounter for fertility testing [Z31.41] Other Visit Diagnosis:Female infertility [N97.9] Order(s):ESTRADIOL-17B BLD [SQE2] Order #: [id number] STANDING FOLLICULAR US WHI [[id number]] Order #: [id number]: 1 STANDING chorionic gonadotropin (PREGNYL) 10,000 unit [...] Collected: 11/08/2024 8:34 AM Status: COMPLETED Source: [facility] TYPE CODE TESTS RESULT OUT OF RANGE [...] 114 mg/dL Performed By: #### HA1C #### [facility] ([id number]) [address], [address] [place] [address] CBC AND AUTO DIFF Collected: 11/08/2024 8:32 AM Status: COMPLETED Source: [facility] TYPE CODE TESTS RESULT OUT OF RANGE [...] #### AMA, 243 -, REED, CMP #### [facility] ([id number]) [address], [address] [place] [address] COMPREHENSIVE METABOLIC PANEL Collected: 2024 8:32 AM Status: COMPLETED Source: [facility] TYPE CODE TESTS RESULT OUT OF RANGE [...] #### AMA, 243 -, THYR, CMP #### [facility] ([id number]) [address] [place] [address], [address] [place] [address] THYROID PROFILE Collected: 11/08/2024 8:32 AM Status: COMPLETED Source: [facility] TYPE CODE TESTS RESULT OUT OF RANGE REFERENCE UNITS LAB TSH(LOINC) TSH 1.64 0.49-4.67 uIU/mL LAB FT4(LOINC) FREE T4 0.65 0.61-1.60 ng/dL Performed By: #### AMA, 243 31-, THYR, CMP #### [facility] ([id number]) [address] [place] [address], [address] [address] LIPID PROFILE Collected: 11/08/2024 8:32 AM Status: COMPLETED Source: [facility] TYPE CODE TESTS RESULT OUT OF RANGE [...] #### AMA, 243 31-, THYR, CMP #### [facility] ([id number]) [address] [place] [address], [address] [address] CNPN Observed: 11/08/2024 12:00 AM Status: COMPLETED Source: [facility] Telephone (REIAV) SEJALTIN ([id number]) 1985 F Date Time Provider Department 11/08/24 [...] Observed: 10/26/2024 1:19 PM Status: COMPLETED Source: [facility] ID: [id number] Author: MICHEL JOSEPH MD Service: ? Author [...] Observed: 10/23/2024 8:32 AM Status: COMPLETED Source: [facility] HNO ID: [id number] Author: IVY GARDNER RN Service: ? Author [...] 10/23/2024 8:30 AM S tatus: Catracho Source: [facility] Order Comment: Specimen Type : BLOOD SPECIMEN Ordering Facility: [facility] Address: [address] [place] [address] TYPE CODE TESTS RESULT OUT OF RANGE [...] 3243 pg/mL Second trimester : 1561 to 82865 pg/mL Third trimester : 8285 to >17055 pg/mL Post-menopausal Estradiol reference range: < 41 pg/mL Reference: 1. Estradiol - E2 (Estradiol III) [package insert V 3.0 Slovak]. [facility], [place], [place], February 2016. Performed By: #### 2243-4 ## ## [facility] CLIA [id number] [address] [place] [address] [place] CNNURSE Observed: 10/23/2024 8:30 AM Status: COMPLETED Source: [facility] Nurse Visit (REIBD) TIN ARIZMENDI ([id number]) 1985 F Date Time Provider Department 10/23/24 8:30 AM NURSE LOUISA [facility] REIBD During your visit today, we [...] infertility [N97.9] Order(s):ESTRADIOL-17B BLD [SQE2] Order #: [id number]. #:[id number] Prescriptions as of 10/26/2024 - metFORMIN (GLUCOPHAGE) [...] Observed: 10/21/2024 8:54 AM Status: COMPLETED Source: [facility] HNO ID: [id number] Author: NAM ARIAS RN Service: ? Author [...] cycle per physician, see flowsheet for details. Logisticarehart message sent. Medications reviewed and verified, instructions given. Patient denies any questions or concerns. Message sent to scheduling pool for next appt. Nam Arias RN October 21, 2024 12:55 PM ESTRADIOL SERPL-MCNC Collected: 10/21/2024 7:38 AM S tatus: F Source: [facility] Order Comment: Specimen Type : BLOOD SPECIMEN Ordering Facility: [facility] Address: [address] [place] [address] TYPE CODE TESTS RESULT OUT OF RANGE REFERENCE UNITS LAB 2243-4([facility]) Estradiol SerPl-mCnc 175 High 8-37 pg/mL Result [...] 3243 pg/mL Second trimester : 1561 to 79214 pg/mL Third trimester : 8285 to >78244 pg/mL Post-menopausal Estradiol reference range: < 41 pg/mL Reference: 1. Estradiol - E2 (Estradiol III) [package insert V 3.0 Slovak]. [facility], [place], [place], February 2016. Performed By: #### 2243-4 ## ## [facility] CLIA [id number] [address] [place] [address] [facility] [place] PROGRESS Observed: 10/19/2024 7:45 AM Status: COMPLETED Source: [facility] HNO ID: [id number] Author: NAM ARIAS RN Service: ? Author [...] cycle per physician, see flowsheet for details. Logisticarehart message sent. Medications reviewed and verified, instructions given. Patient denies any questions or concerns. Message sent to scheduling pool for next appt. Nam Arias RN October 19, 2024 1:27 PM ESTRADIOL SERPL-MCNC Collected: 10/19/2024 6:47 AM S tatus: F Source: [facility] Order Comment: Specimen Type : BLOOD SPECIMEN Ordering Facility: [facility] Address: [address] [place] [address] TYPE CODE TESTS RESULT OUT OF RANGE [...] 3243 pg/mL Second trimester : 1561 to 09958 pg/mL Third trimester : 8285 to >71684 pg/mL Post-menopausal Estradiol reference range: < 41 pg/mL Reference: 1. Estradiol - E2 (Estradiol III) [package insert V 3.0 Slovak]. [facility], [place], [place], February 2016. Performed By: #### 2243-4 ## ## [facility] CLIA [id number] [address] [place] [address] [facility] PROGRESS Observed: 10/12/2024 2:34 PM Status: COMPLETED Source: [facility] HNO ID: [id number] Author: MARY ANN KIRKLAND RN Service: ? [...] cycle per physician, see flowsheet for details. Logisticarehart message sent. Medications reviewed and verified, instructions given. Patient denies any questions or concerns. Message sent to scheduling pool for next appt. Mary Ann Kirkland RN October 12, 2024 2:36 PM ESTRADIOL SERPL-MCNC Collected: 10/12/2024 7:08 AM S tatus: F Source: [facility] Order Comment: Specimen Type : BLOOD SPECIMEN Ordering Facility: [facility] Address: [address] [place] [address] TYPE CODE TESTS RESULT OUT OF RANGE [...] 3243 pg/mL Second trimester : 1561 to 52066 pg/mL Third trimester : 8285 to >53897 pg/mL Post-menopausal Estradiol reference range: < 41 pg/mL Reference: 1. Estradiol - E2 (Estradiol III) [package insert V 3.0 Slovak]. [facility], [place], [place], February 2016. Performed By: #### 2243-4 ## ## [facility] CLIA [id number] [place] [address] [facility] CNPN Observed: 10/10/2024 12:00 AM Status: COMPLETED Source: [facility] Telephone (REIBD) TIN ARIZMENDI ([id number]) 1985 F Date Time Provider Department 10/10/24 [...] protocol as the last cycle (SO#9) Location: [place] Visit type: Baseline, SO us/e2 Date: 10/12 [...] Observed: 09/21/2024 1:32 PM Status: COMPLETED Source: [facility] HNO ID: [id number] Author: MICHEL JOSEPH MD Service: ? Author Type: Physician Type: Consult Progress Note Filed: 09/21/2024 13:55 Note Text: [facility] Date: 09/21/2024 Tin Arizmendi [...] visit. Either the patient or their legal employee's representative has been informed of the risks and benefits of -- and alternatives to -- treatment through a remote evaluation and consents to proceed with the evaluation remotely. I spent a total of 30 minutes on the date of the service which included preparing to see the patient, [id number] patient care, completing clinical documentation, counseling and educating the patient/family/caregiver, and ordering medications, tests, or procedures. Michel Joseph MD Observed: 09/21/2024 1:26 PM Status: COMPLETED Source: [facility] ID: [id number] Author: FRANCINE RAMIREZ MD Service: ? Author [...] partner had another semen analysis done at [facility] in 2016 in addition to another one here in 2022. She reports they were normal, however she is uncertain whether she has access to these records and she will try to obtain them. PROGRESS Observed: 09/20/2024 12:52 PM Status: COMPLETED [facility] [id number] Author: MICHEL JOSEPH MD Service: ? Author [...] Joseph MD September 20, 2024 12:59 PM PROGRESS Observed: 09/20/2024 12:35 PM Status: COMPLETED Source: [facility] HNO ID: [id number] Author: ZHEN SEARS MD Service: ? Author [...] plan provided to patient via a Fertility vulcan crewmember. María Elena Butt MD ESTRADIOL SERPL-MCNC Collected: 09/20/2024 7:52 AM S tatus: F Source: [facility] Order Comment: Specimen Type : BLOOD SPECIMEN Ordering Facility: [facility] Address: [address] [address] TYPE CODE TESTS RESULT OUT OF RANGE [...] 3243 pg/mL Second trimester : 1561 to 84939 pg/mL Third trimester : 8285 to >23402 pg/mL Post-menopausal Estradiol reference range: < 41 pg/mL Reference: 1. Estradiol - E2 (Estradiol III) [package insert V 3.0 Slovak]. [facility], [place], [place], February 2016. Performed By: #### 2243-4 ## ## [facility] CLIA [id number] [address] [place], [place] [address] [place] [address] PROGRESS Observed: 09/20/2024 7:31 AM Status: COMPLETED Source: [facility] HNO ID: [id number] Author: MARY ANN KIRKLAND RN Service: ? [...] Observed: 09/19/2024 7:37 AM Status: COMPLETED Source: [facility] HNO ID: [id number] Author: MARY ANN KIRKLAND RN Service: ? [...] Unable to reach patient by phone, sent [employer] message with instructions. Location: [place] Visit type: Monitoring, SO us/e2 Date: 09/20 @ 920am Mary Ann Kirkland RN September 19, 2024 2:21 PM ESTRADIOL SERPL-MCNC Collected: 09/19/2024 7:25 AM S tatus: F Source: [facility] Order Comment: Specimen Type : BLOOD SPECIMEN Ordering Facility: [facility] Address: [address] [place] [address] TYPE CODE TESTS RESULT OUT OF RANGE [...] 3243 pg/mL Second trimester : 1561 to 78691 pg/mL Third trimester : 8285 to >95710 pg/mL Post-menopausal Estradiol reference range: < 41 pg/mL Reference: 1. Estradiol - E2 (Estradiol III) [package insert V 3.0 Slovak]. [facility], [place], [place], February 2016. Performed By: #### 2243-4 ## ## [facility] CLIA [id number] [address] [place] [address] [facility] PROGRESS Observed: 09/15/2024 7:08 AM Status: COMPLETED Source: [facility] HNO ID: [id number] Author: MARY ANN KIRKLAND RN Service: ? [...] cycle per physician, see flowsheet for details. Logisticarehart message sent. Medications reviewed and verified, instructions given. Patient denies any questions or concerns. Message sent to scheduling pool for next appt. Mary Ann Kirkland RN September 15, 2024 2:09 PM ESTRADIOL SERPL-MCNC Collected: 09/15/2024 6:42 AM S tatus: F Source: [facility] Order Comment: Specimen Type : BLOOD SPECIMEN Ordering Facility: [facility] Address: [address] [place] [address] TYPE CODE TESTS RESULT OUT OF RANGE [...] 3243 pg/mL Second trimester : 1561 to 81797 pg/mL Third trimester : 8285 to >13744 pg/mL Post-menopausal Estradiol reference range: < 41 pg/mL Reference: 1. Estradiol - E2 (Estradiol III) [package insert V 3.0 Slovak]. [facility], [place], [place], February 2016. Performed By: #### 2243-4 ## ## [facility] CLIA [id number] [place] [address] [place] PROGRESS Observed: 09/12/2024 4:04 PM Status: COMPLETED Source: [facility] HNO ID: [id number] Author: MARY ANN KIRKLAND RN Service: ? [...] appt. Cancelled P4 and LH labs. Location: [place] Visit type: SO us/e2 Date: 09/15/24 @ 0700 Mary Ann Kirkland RN September 12, 2024 4:12 PM PROGRESS Observed: 09/12/2024 7:57 AM Status: COMPLETED Source: [facility] HNO ID: [id number] Author: NAM ARIAS RN Service: ? Author [...] 09/12/2024 7:49 AM S tatus: F Source: [facility] Order Comment: Specimen Type : BLOOD SPECIMEN Ordering Facility: [facility] Address: [address] [place] [address] TYPE CODE TESTS RESULT OUT OF RANGE [...] 3243 pg/mL Second trimester : 1561 to 37843 pg/mL Third trimester : 8285 to >61668 pg/mL Post-menopausal Estradiol reference range: < 41 pg/mL Reference: 1. Estradiol - E2 (Estradiol III) [package insert V 3.0 Slovak]. [facility], [place], [place], February 2016. Performed By: #### 12856-7, 2243-4, 2839-9 #### [facility] CLIA [id number] [address] [facility] [place], [place] [address] [place] [address] OF [place] LH SERPL-ACNC Collected: 12/30/202 4 7:49 AM Status: F Source: [facility] Order Comment: Specimen Type : BLOOD SPECIMEN Ordering Facility: [facility] Address: [address] [place], [place] [address] TYPE CODE TESTS RESULT OUT OF RANGE REFERENCE UNITS LAB 41531-0(LOINC) LH SerPl-aCnc 10.9 See comment mIU/mL Result Comment: Reference ra nge: Follicular: 2.4-12.6 mIU/mL Midcycle: 14.0-95.6 mIU/mL Luteal: 1.0-11.4 mIU/mL Post [place]: 7.7-58.5 mIU/mL Performed By: #### 67732-4, 2243-4, 2839-9 #### [facility] CLIA [id number] PROGEST SERPL-MCNC Collected: 7:49 AM Status: F Source: [facility] Order Comment: Specimen Type : BLOOD SPECIMEN Ordering Facility: [facility] Address: [address] [place], [place] [address] TYPE CODE TESTS RESULT OUT OF RANGE [...] Progesterone (Progesterone III) [package insert V 1.0 Slovak]. [facility], [place], [place]. June 2015. Performed By: #### 79276-6, 2243-4, 2839-9 #### [facility] CLIA [id number] [address] [place] [id number] [facility] [place] CNPN Observed: 09/08/2024 12:00 AM Status: COMPLETED Source: [facility] Telephone (REIBD) TIN ARIZMENDI ([id number]) 1985 F Date Time Provider Department 09/08/24 MICHEL JOSEPH During your visit today, we recorded the following information about you: Alecmargot Coughlin Yancy 09/09/2024 8:12 AM Signed OOT til Thursday Ivy Gardner RN 09/09/2024 9:07 AM Signed Pt calling to schedule baseline for SO cycle. Ok to start per . Baseline scheduled 09/12 at 7 [place]. Ivy Gardner RN September 09, 2024 9:03 [...] Diagnosis:Female infertility [N97.9] Order(s):PROGESTERONE [SQPROG] Order #: [id number] STANDING ESTRADIOL-17B BLD [SQE2] Order #: [id number] STANDING LUTEINIZING HORMONE [SQLH] Order #: [id number] STANDING FOLLICULAR US WHI [[id number]] Order #: [id number]: 1 STANDING chorionic gonadotropin (PREGNYL) 10,000 unit [...] Observed: 08/17/2024 8:28 AM Status: COMPLETED Source: [facility] HNO ID: [id number] Author: NAM ARIAS RN Service: ? Author [...] 08/17/2024 7:53 AM S tatus: F Source: [facility] Order Comment: Specimen Type : BLOOD SPECIMEN Ordering Facility: [facility] Address: [address] [place] [address] TYPE CODE TESTS RESULT OUT OF RANGE REFERENCE UNITS LAB 2243-4([facility]) Estradiol SerPl-mCnc 131 High 8-37 pg/mL Result [...] 3243 pg/mL Second trimester : 1561 to 54934 pg/mL Third trimester : 8285 to >21576 pg/mL Post-menopausal Estradiol reference range: < 41 pg/mL Reference: 1. Estradiol - E2 (Estradiol III) [package insert V 3.0 Slovak]. [facility], [place], [place], February 2016. Performed By: #### 2243-4 ## ## [facility] CLIA [id number] [address] [place] [address] [place] CNNURSE Observed: 08/17/2024 7:30 AM Status: COMPLETED Source: [facility] Nurse Visit (KAREN) KILOTIN FERNANDES ([id number]) 1985 F Date Time Provider Department 08/17/24 [...] 2024 1:57 PM Referring Provider: MIGUEL LEVY [[id number]] Allergies As of Date: 08/17/2024 Noted Allergy Reaction AMOXACILLIN (AMOXICILLIN) 03/09/2023 4 - Hives Comments: Skin test is negative. Challenge pending PENICILLINS 10/15/2020 4 - Hives Date Reviewed: 08/15/2024 Reviewed by: Nam Arias RN - Fully Assessed Reason for Visit: Infertility [285] Visit Diagnosis:Female infertility [N97.9] Order(s):FOLLICULAR US WHI [[id number]] Order #: [id number]. #:[id number]: 1 Prescriptions as of 08/22/2024 - Follitropin [...] Observed: 08/15/2024 7:05 AM Status: COMPLETED Source: [facility] ID: [id number] Author: NAM ARIAS RN Service: ? Author [...] Observed: 08/15/2024 7:00 AM Status: COMPLETED Source: [facility] Nurse Visit (MEGIAV) TIN ARIZMENDI ([id number]) 1985 F Date Time Provider Department 08/15/24 [...] cycle per physician, see flowsheet for details. Logisticarehart message sent. Medications reviewed and verified, instructions given. Patient denies any questions or concerns. Message sent to scheduling pool for next appt. Nam Arias RN August 15, 2024 1:39 PM Referring Provider: MIGUEL LEVY [[id number]] Allergies As of Date: 08/15/2024 Noted Allergy Reaction AMOXACILLIN (AMOXICILLIN) 03/09/2023 4 - Hives Comments: Skin test is negative. Challenge pending PENICILLINS 10/15/2020 4 - Hives Date Reviewed: 08/15/2024 Reviewed by: Nam Arias RN - Fully Assessed Reason for Visit: Infertility [285] Visit Diagnosis:Female infertility [N97.9] Order(s):FOLLICULAR US [facility] [[id number]] Order #: [id number]. #:[id number]: 1 Prescriptions as of 08/15/2024 - Follitropin [...] 08/15/2024 6:58 AM S tatus: F Source: [facility] Order Comment: Specimen Type : BLOOD SPECIMEN Ordering Facility: [facility] Address: [address] [place] [address] TYPE CODE TESTS RESULT OUT OF RANGE [...] 3243 pg/mL Second trimester : 1561 to 31562 pg/mL Third trimester : 8285 to >44695 pg/mL Post-menopausal Estradiol reference range: < 41 pg/mL Reference: 1. Estradiol - E2 (Estradiol III) [package insert V 3.0 Slovak]. [facility], [place], [place], February 2016. Performed By: #### 2243-4 ## ## [facility] CLIA [id number] [address] [place] [address] [facility] [place] PROGRESS Observed: 08/10/2024 1:19 PM Status: COMPLETED Source: [facility] HNO ID: [id number] Author: NILTON ZHANG RN Service: ? Author Type: Registered Nurse Type: Progress Notes Filed: 08/10/2024 13:19 Note Text: RN called patient, name and verified. Plan given for superov cycle per physician, see flowsheet for details. Logisticarehart message sent. Medications reviewed and verified, instructions given. Patient denies any questions or concerns. Message sent to scheduling pool for next appt. Nilton Zhang RN August 10, 2024 1:19 PM PROGRESS Observed: 08/10/2024 8:02 AM Status: COMPLETED Source: [facility] HNO ID: [id number] Author: NILTON ZHANG RN Service: ? Author [...] Observed: 08/10/2024 7:30 AM Status: COMPLETED Source: [facility] Nurse Visit (MEGIAV) TIN ARIZMENDI ([id number]) 1985 F Date Time Provider Department 08/10/24 [...] 2024 1:19 PM Referring Provider: MIGUEL LEVY [[id number]] Allergies As of Date: 08/10/2024 Noted Allergy Reaction AMOXACILLIN (AMOXICILLIN) 03/09/2023 4 - Hives Comments: Skin test is negative. Challenge pending PENICILLINS 10/15/2020 4 - Hives Date Reviewed: 08/10/2024 Reviewed by: Nilton Zhang, LAUREN - Fully Assessed Reason for Visit: Infertility [285] Visit Diagnosis:Female infertility [N97.9] Order(s):FOLLICULAR US [facility] [[id number]] Order #: [id number]. #:[id number]: [id number] Prescriptions as of 08/10/2024 - Follitropin [...] 08/10/2024 7:04 AM S tatus: F Source: [facility] Order Comment: Specimen Type : BLOOD SPECIMEN Ordering Facility: [facility] Address: [address] [place] [address] TYPE CODE TESTS RESULT OUT OF RANGE [...] 3243 pg/mL Second trimester : 1561 to 93791 pg/mL Third trimester : 8285 to >26194 pg/mL Post-menopausal Estradiol reference range: < 41 pg/mL Reference: 1. Estradiol - E2 (Estradiol III) [package insert V 3.0 Slovak]. [facility], [place], [place], February 2016. Performed By: #### 2243-4 ## ## [facility] CLIA [id number] [place] [address] [place] CNPN Observed: 08/08/2024 12:00 AM Status: COMPLETED Source: [facility] Telephone (REIBD) TIN ARIZMENDI ([id number]) 1985 F Date Time Provider Department 08/08/24 [...] Visit Diagnosis:Female infertility [N97.9] Order(s):FOLLICULAR US [facility] [[id number]] Order #: [id number]: 1 STANDING ESTRADIOL-17B BLD [SQE2] Order #: [id number] STANDING Follitropin Beta (FOLLISTIM AQ) 300 unit/0.36 [...] Observed: 07/18/2024 7:03 AM Status: COMPLETED Source: [facility] HNO ID: [id number] Author: NAM ARIAS RN Service: ? Author [...] cycle per physician, see flowsheet for details. Logisticarehart message sent. Medications reviewed and verified, instructions given. Patient denies any questions or concerns. Message sent to scheduling pool for next appt. Nam Arias RN July 18, 2024 1:25 PM CNNURSE Observed: 07/18/2024 7:00 AM Status: COMPLETED Source: [facility] Nurse Visit (MEGIAV) TIN ARIZMENDI ([id number]) 1985 F Date Time Provider Department 07/18/24 [...] cycle per physician, see flowsheet for details. Logisticarehart message sent. Medications reviewed and verified, instructions given. Patient denies any questions or concerns. Message sent to scheduling pool for next appt. Nam Arias RN July 18, 2024 1:25 PM Referring Provider: MIGUEL LEVY [[id number]] Allergies As of Date: 07/18/2024 Noted Allergy Reaction AMOXACILLIN (AMOXICILLIN) 03/09/2023 4 - Hives Comments: Skin test is negative. Challenge pending PENICILLINS 10/15/2020 4 - Hives Date Reviewed: 07/18/2024 Reviewed by: Nam Arias RN - Fully Assessed Reason for Visit: Infertility [285] Visit Diagnosis:Female infertility [N97.9] Order(s):FOLLICULAR US [facility] [[id number]] Order #: [id number]. #:[id number]: [id number] Prescriptions as of 07/18/2024 - metFORMIN [...] 07/18/2024 6:36 AM S tatus: F Source: [facility] Order Comment: Specimen Type : BLOOD SPECIMEN Ordering Facility: [facility] Address: [address] [place] [address] TYPE CODE TESTS RESULT OUT OF RANGE [...] 3243 pg/mL Second trimester : 1561 to 81759 pg/mL Third trimester : 8285 to >96288 pg/mL Post-menopausal Estradiol reference range: < 41 pg/mL Reference: 1. Estradiol - E2 (Estradiol III) [package insert V 3.0 Slovak]. [facility], [place], [place], February 2016. Performed By: #### 2243-4 ## ## [facility] CLIA [id number] [place] [address] [facility] PROGRESS Observed: 07/14/2024 1:50 PM Status: COMPLETED Source: [facility] HNO ID: [id number] Author: GEE DEVRIES RN Service: ? Author Type: Registered Nurse Type: Progress Notes Filed: 07/14/2024 13:56 Note Text: RN called patient, name and verified. Plan given for IVF cycle per physician, see flowsheet for details. Logisticarehart message sent. Medications reviewed and verified, instructions given. Patient denies any questions or concerns. Message sent to scheduling pool for next appt. Please schedule the patient for the following- Location: [place] Visit type: monitoring us / e2 / Date: 07/18 @7am Gee Devries RN July 14, 2024 1:50 PM PROGRESS Observed: 07/14/2024 7:06 AM Status: COMPLETED Source: [facility] HNO ID: [id number] Author: IVY GARDNER RN Service: ? Author [...] Observed: 07/14/2024 7:00 AM Status: COMPLETED Source: [facility] Nurse Visit (REIAV) TIN ARIZMENDI ([id number]) 1985 F Date Time Provider Department 07/14/24 [...] cycle per physician, see flowsheet for details. Logisticarehart message sent. Medications reviewed and verified, instructions given. Patient denies any questions or concerns. Message sent to scheduling pool for next appt. Please schedule the patient for the following- Location: [place] Visit type: monitoring us / e2 / Date: 07/18 @7am Gee Devries RN July 14, 2024 1:50 PM Referring Provider: MIGUEL LEVY [[id number]] Allergies As of Date: 07/14/2024 Noted Allergy Reaction AMOXACILLIN (AMOXICILLIN) 03/09/2023 4 - Hives Comments: Skin test is negative. Challenge pending PENICILLINS 10/15/2020 4 - Hives Date Reviewed: 07/07/2024 Reviewed by: Nilton Zhang RN - Fully Assessed Reason for Visit: Infertility [285] Visit Diagnosis:Female infertility [N97.9] Order(s):FOLLICULAR US [facility] [[id number]] Order #: [id number]. #:[id number]: 1 Prescriptions as of 07/14/2024 - metFORMIN [...] 07/14/2024 6:44 AM S tatus: F Source: [facility] Order Comment: Specimen Type : BLOOD SPECIMEN Ordering Facility: [facility] Address: [address] [place] [address] TYPE CODE TESTS RESULT OUT OF RANGE [...] 3243 pg/mL Second trimester : 1561 to 97051 pg/mL Third trimester : 8285 to >17858 pg/mL Post-menopausal Estradiol reference range: < 41 pg/mL Reference: 1. Estradiol - E2 (Estradiol III) [package insert V 3.0 Slovak]. [facility], [place], [place], February 2016. Performed By: #### 2243-4 ## ## [facility] CLIA [id number] [place] [address] [facility] PROGRESS Observed: 07/07/2024 1:31 PM Status: COMPLETED Source: [facility] HNO ID: [id number] Author: NILTON ZHANG RN Service: ? Author Type: Registered Nurse Type: Progress Notes Filed: 07/07/2024 13:31 Note Text: RN called patient, name and verified. Plan given for IVF cycle per physician, see flowsheet for details. BRAINDIGITt message sent. Medications reviewed and verified, instructions given. Patient denies any questions or concerns. Message sent to scheduling pool for next appt. Nilton Zhang RN July 07, 2024 1:31 PM PROGRESS Observed: 07/07/2024 7:34 AM Status: COMPLETED Source: [facility] HNO ID: [id number] Author: NILTON ZHANG RN Service: ? Author [...] Observed: 07/07/2024 7:30 AM Status: COMPLETED Source: [facility] Nurse Visit (REIAV) TIN ARIZMENDI ([id number]) 1985 F Date Time Provider Department 07/07/24 7:30 AM NURSE LOUISA [facility] REJ DEVINV During your visit today, we [...] cycle per physician, see flowsheet for details. [employer] message sent. Medications reviewed and verified, instructions given. Patient denies any questions or concerns. Message sent to scheduling pool for next appt. Nilton Zhang RN July 07, 2024 1:31 PM Referring Provider: MIGUEL LEVY [[id number]] Allergies As of Date: 07/07/2024 Noted Allergy Reaction AMOXACILLIN (AMOXICILLIN) 03/09/2023 4 - Hives Comments: Skin test is negative. Challenge pending PENICILLINS 10/15/2020 4 - Hives Date Reviewed: 07/07/2024 Reviewed by: Nilton Zhang RN - Fully Assessed Reason for Visit: Infertility [285] Visit Diagnosis:Female infertility [N97.9] Order(s):FOLLICULAR US [facility] [[id number]] Order #: [id number]. #:[id number]: 1 Prescriptions as of 07/07/2024 - metFORMIN [...] 07/07/2024 7:22 AM S tatus: F Source: [facility] Order Comment: Specimen Type : BLOOD SPECIMEN Ordering Facility: [facility] Address: [address] [place] [address] TYPE CODE TESTS RESULT OUT OF RANGE [...] 3243 pg/mL Second trimester : 1561 to 26850 pg/mL Third trimester : 8285 to >50947 pg/mL Post-menopausal Estradiol reference range: < 41 pg/mL Reference: 1. Estradiol - E2 (Estradiol III) [package insert V 3.0 Slovak]. [facility], [place], [place], February 2016. Performed By: #### 2243-4 ## ## [facility] CLIA [id number] [place] [address] [facility] CNPN Observed: 07/04/2024 12:00 AM Status: COMPLETED Source: [facility] Telephone (REIAV) TIN ARIZMENDI ([id number]) 1985 F Date Time Provider Department 07/04/24 [...] discussed last cycle, listed above Sent to [employer]. Location: [place] Visit type: SO baseline Date: 07/07/24 @ [facility] Mary Ann Kirkland RN July 04, 2024 2:18 PM Allergies As of Date: 07/04/2024 Noted Allergy Reaction AMOXACILLIN (AMOXICILLIN) 03/09/2023 4 - Hives Comments: Skin test is negative. Challenge pending PENICILLINS 10/15/2020 4 - Hives Date Reviewed: 06/15/2024 Reviewed by: Nilton Zhang RN - Fully Assessed Reason for Visit: Next Steps [3565] Primary Visit Diagnosis:Female infertility [N97.9] Order(s):FOLLICULAR [facility] [[id number]] Order #: [id number]: 1 STANDING ESTRADIOL-17B BLD [SQE2] Order #: [id number] STANDING Prescriptions as of 07/04/2024 - metFORMIN [...] Observed: 06/15/2024 1:01 PM Status: COMPLETED Source: [facility] HNO ID: [id number] Author: NILTON ZHANG RN Service: ? Author Type: Registered Nurse Type: Progress Notes Filed: 06/15/2024 13:02 Note Text: RN called patient, name and verified. Plan given for IVF cycle per physician, see flowsheet for details. Logisticarehart message sent. Medications reviewed and verified, instructions given. Patient denies any questions or concerns. Message sent to scheduling pool for next appt. Nilton Zhang RN June 15, 2024 1:02 PM PROGRESS Observed: 06/15/2024 8:21 AM Status: COMPLETED Source: [facility] HNO ID: [id number] Author: NILTON ZHANG RN Service: ? Author [...] 06/15/2024 7:01 AM S tatus: F Source: [facility] Order Comment: Specimen Type : BLOOD SPECIMEN Ordering Facility: [facility] Address: [address] [place] [address] TYPE CODE TESTS RESULT OUT OF RANGE [...] 3243 pg/mL Second trimester : 1561 to 63958 pg/mL Third trimester : 8285 to >09489 pg/mL Post-menopausal Estradiol reference range: < 41 pg/mL Reference: 1. Estradiol - E2 (Estradiol III) [package insert V 3.0 Slovak]. [facility], [place], [place], February 2016. Performed By: #### 2243-4, 1 0501-5, 2839-9 #### [facility] CLIA [id number] [address] [facility] LH SERPL-ACNC Collected: 7:01 AM Status: F Source: [facility] Order Comment: Specimen Type : BLOOD SPECIMEN Ordering Facility: [facility] Address: [address] [place] [address] TYPE CODE TESTS RESULT OUT OF RANGE REFERENCE UNITS LAB 73334-4(LOINC) LH SerPl-aCnc 4.1 See comment mIU/mL Result Comment: Reference ra nge: Follicular: 2.4-12.6 mIU/mL Midcycle: 14.0-95.6 mIU/mL Luteal: 1.0-11.4 mIU/mL Post Sylwia: 7.7-58.5 mIU/mL Performed By: #### 2243-4, 1 0501-5, 2839-9 #### [facility] CLIA [id number] [place] [address] [facility] PROGEST SERPL-MCNC Collected: 7:01 AM Status: F Source: [facility] Order Comment: Specimen Type : BLOOD SPECIMEN Ordering Facility: [facility] Address: [facility] [place] [address] TYPE CODE TESTS RESULT OUT OF RANGE [...] Progesterone (Progesterone III) [package insert V 1.0 Slovak]. [facility], [place], [place]. June 2015. Performed By: #### 2243-4, 1 0501-5, 2839-9 #### [facility] CLIA [id number] [address] [place] [address] [facility] CNNURSE Observed: 06/15/2024 7:00 AM Status: COMPLETED Source: [facility] Nurse Visit (REIAV) TIN ARIZMENDI ([id number]) 1985 F Date Time Provider Department 06/15/24 7:00 AM NURSE LOUISA [facility] REJ REIAV During your visit today, we [...] cycle per physician, see flowsheet for details. [employer] message sent. Medications reviewed and verified, instructions given. Patient denies any questions or concerns. Message sent to scheduling pool for next appt. Nilton Zhang RN June 15, 2024 1:02 PM Referring Provider: MICHEL JOSEPH [[id number]] Allergies As of Date: 06/15/2024 Noted Allergy Reaction AMOXACILLIN (AMOXICILLIN) 03/09/2023 4 - Hives Comments: Skin test is negative. Challenge pending PENICILLINS 10/15/2020 4 - Hives Date Reviewed: 06/15/2024 Reviewed by: Nilton Zhang RN - Fully Assessed Reason for Visit: Infertility [285] Visit Diagnosis:Primary female infertility [N97.9] Order(s):FOLLICULAR US [facility] [[id number]] Order #: [id number]. #:[id number]: 1 Prescriptions as of 06/15/2024 - metFORMIN [...] Observed: 06/13/2024 8:37 AM Status: COMPLETED Source: [facility] ID: [id number] Author: MARY ANN KIRKLAND RN Service: ? [...] cycle per physician, see flowsheet for details. [employer] message sent. Medications reviewed and verified, instructions given. Patient denies any questions or concerns. Message sent to scheduling pool for next appt. Location: [place] Visit type: IVF us/e2/p4/lh Date: 06/15 Mary Ann Kirkland RN June 13, 2024 12:44 PM CNNURSE Observed: 06/13/2024 8:15 AM Status: COMPLETED Source: [facility] Nurse Visit (REIAV) TIN ARIZMENDI ([id number]) 1985 F Date Time Provider Department 06/13/24 8:15 AM NURSE LOUISA [facility] REIAAlek During your visit today, we [...] to scheduling pool for next appt. Location: [place] Visit type: IVF us/e2/p4/lh Date: 06/15 Mary Ann Kirklnad RN June 13, 2024 12:44 PM Referring Provider: MICHEL JOSEPH [[id number]] Allergies As of Date: 06/13/2024 Noted Allergy Reaction AMOXACILLIN (AMOXICILLIN) 03/09/2023 4 - Hives Comments: Skin test is negative. Challenge pending PENICILLINS 10/15/2020 4 - Hives Date Reviewed: 06/03/2024 Reviewed by: Nilton Zhang RN - Fully Assessed Reason for Visit: Infertility [285] Visit Diagnosis:Primary female infertility [N97.9] Order(s):FOLLICULAR US [facility] [[id number]] Order #: [id number]. #:[id number]: 1 LUTEINIZING HORMONE [SQLH] Order #: [id number] FUTURE PROGESTERONE [SQPROG] Order #: [id number] FUTURE ESTRADIOL-17B BLD [SQE2] Order #: [id number] FUTURE Prescriptions as of 06/13/2024 - metFORMIN [...] 06/13/2024 7:58 AM S tatus: F Source: [facility] Order Comment: Specimen Type : BLOOD SPECIMEN Ordering Facility: [facility] Address: [address] [place] [address] TYPE CODE TESTS RESULT OUT OF RANGE [...] 3243 pg/mL Second trimester : 1561 to 13456 pg/mL Third trimester : 8285 to >10942 pg/mL Post-menopausal Estradiol reference range: < 41 pg/mL Reference: 1. Estradiol - E2 (Estradiol III) [package insert V 3.0 Slovak]. [facility], [place], [place], February 2016. Performed By: #### 2243-4 ## ## [facility] CLIA [id number] [place] [address] [place] PROGRESS Observed: 06/10/2024 1:24 PM Status: COMPLETED Source: [facility] HNO ID: [id number] Author: NILTON ZHANG RN Service: ? Author [...] Observed: 06/10/2024 12:48 PM Status: COMPLETED Source: [facility] HNO ID: [id number] Author: NILTON ZHANG RN Service: ? Author [...] Observed: 06/10/2024 12:47 PM Status: COMPLETED Source: [facility] HNO ID: [id number] Author: TIFFANY GONZALEZ MD Service: ? Author Type: Physician Type: Progress Notes Filed: 06/10/2024 12:58 Note Text: LOUISA Attending Physician Note: Ultrasound and lab results reviewed. Based on review of ultrasound and lab results, medication dose and follow up date plans provided. See cycle flowsheet for dosing details. Tiffany Gonzalez MD, CROW ESTRADIOL SERPL-MCNC Collected: 06/10/2024 7:27 AM S tatus: F Source: [facility] Order Comment: Specimen Type : BLOOD SPECIMEN Ordering Facility: [facility] Address: [address] [place] [address] TYPE CODE TESTS RESULT OUT OF RANGE [...] 3243 pg/mL Second trimester : 1561 to 07980 pg/mL Third trimester : 8285 to >91340 pg/mL Post-menopausal Estradiol reference range: < 41 pg/mL Reference: 1. Estradiol - E2 (Estradiol III) [package insert V 3.0 Slovak]. [facility], [place], [place], February 2016. Performed By: #### 2243-4 ## ## [facility] CLIA [id number] [place] [address] [place] PROGRESS Observed: 06/10/2024 7:09 AM Status: COMPLETED Source: [facility] HNO ID: [id number] Author: GEE DEVRIES RN Service: ? Author [...] Observed: 06/10/2024 7:00 AM Status: COMPLETED Source: [facility] Nurse Visit (REIAV) TIN ARIZMENDI ([id number]) 1985 F Date Time Provider Department 06/10/24 [...] cycle per physician, see flowsheet for details. Logisticarehart message sent. Medications reviewed and verified, instructions [...] and sent to Dr. Joseph to file. Quorum Systemshart sent to patient. Nilton Zhang RN June 10, 2024 1:25 PM Nilton Zhang RN 06/10/2024 1:29 PM Signed Addended by: NILTON ZHANG on: 06/10/2024 01:29 PM Modules accepted: Orders Referring Provider: MICHEL JOSEHP [[id number]] Allergies As of Date: 06/10/2024 Noted Allergy Reaction AMOXACILLIN (AMOXICILLIN) 03/09/2023 4 - Hives Comments: Skin test is negative. Challenge pending PENICILLINS 10/15/2020 4 - Hives Date Reviewed: 06/03/2024 Reviewed by: Nilton Zhang RN - Fully Assessed Reason for Visit: Infertility [285] Visit Diagnosis:Primary female infertility [N97.9] Order(s):FOLLICULAR US [facility] [[id number]] Order #: [id number]. #:[id number]: 1 metFORMIN (GLUCOPHAGE) 500 mg tabletTake 1 [...] Observed: 06/06/2024 3:02 PM Status: COMPLETED Source: [facility] HNO ID: [id number] Author: MARY ANN KIRKLAND RN Service: ? Author Type: Registered Nurse Type: Progress Notes Filed: 06/06/2024 15:03 Note Text: RN called patient, name and verified. Plan given for IVF cycle per physician, see flowsheet for details. BRAINDIGITt message sent. Medications reviewed and verified, instructions given. Patient denies any questions or concerns. Message sent to scheduling pool for next appt. Location: [place] Visit type: so us/ Date: 06/10 @ 7am Mary Ann Kirkland RN June 06, 2024 3:02 PM CNNURSE Observed: 06/06/2024 8:45 AM Status: COMPLETED Source: [facility] Nurse Visit (REIAV) TIN ARIZMENDI ([id number]) 1985 F Date Time Provider Department 06/06/24 [...] cycle per physician, see flowsheet for details. BRAINDIGITt message sent. Medications reviewed and verified, instructions given. Patient denies any questions or concerns. Message sent to scheduling pool for next appt. Location: [place] Visit type: so us/e2 Date: 06/10 @ 7am Mary Ann Kirkland RN June 06, 2024 3:02 PM Referring Provider: MICHEL JOSEPH [[id number]] Allergies As of Date: 06/06/2024 Noted Allergy Reaction AMOXACILLIN (AMOXICILLIN) 03/09/2023 4 - Hives Comments: Skin test is negative. Challenge pending PENICILLINS 10/15/2020 4 - Hives Date Reviewed: 06/03/2024 Reviewed by: Nilton Zhang RN - Fully Assessed Reason for Visit: Infertility [285] Visit Diagnosis:Primary female infertility [N97.9] Order(s):FOLLICULAR US [facility] [[id number]] Order #: [id number]. #:[id number]: 1 Prescriptions as of 06/06/2024 - Norethin [...] Observed: 06/06/2024 8:19 AM Status: COMPLETED Source: [facility] ID: [id number] Author: GEE DEVRIES RN Service: ? Author [...] 06/06/2024 7:22 AM S tatus: F Source: [facility] Order Comment: Specimen Type : BLOOD SPECIMEN Ordering Facility: [facility] Address: [address] [place] [address] TYPE CODE TESTS RESULT OUT OF RANGE [...] 3243 pg/mL Second trimester : 1561 to 57502 pg/mL Third trimester : 8285 to >60162 pg/mL Post-menopausal Estradiol reference range: < 41 pg/mL Reference: 1. Estradiol - E2 (Estradiol III) [package insert V 3.0 Slovak]. [facility], [place], [place], February 2016. Performed By: #### 2243-4 ## ## [facility] CLIA [id number] [place] [address] [facility] PROGRESS Observed: 06/03/2024 12:50 PM Status: COMPLETED Source: [facility] ID: [id number] Author: NILTON ZHANG RN Service: ? Author Type: Registered Nurse Type: Progress Notes Filed: 06/03/2024 12:50 Note Text: RN called patient, name and verified. Plan given for IVF cycle per physician, see flowsheet for details. [employer] message sent. Medications reviewed and verified, instructions given. Patient denies any questions or concerns. Message sent to scheduling pool for next appt. Nilton Zhang RN June 03, 2024 12:50 PM PROGRESS Observed: 06/03/2024 7:03 AM Status: COMPLETED Source: [facility] ID: [id number] Author: NILTON ZHANG RN Service: ? Author [...] Observed: 06/03/2024 7:00 AM Status: COMPLETED Source: [facility] Nurse Visit (REIAV) TIN ARIZMENDI ([id number]) 1985 F Date Time Provider Department 06/03/24 [...] cycle per physician, see flowsheet for details. BRAINDIGITt message sent. Medications reviewed and verified, instructions given. Patient denies any questions or concerns. Message sent to scheduling pool for next appt. Nilton Zhang RN June 03, 2024 12:50 PM Referring Provider: MICHEL JOSEPH [[id number]] Allergies As of Date: 06/03/2024 Noted Allergy Reaction AMOXACILLIN (AMOXICILLIN) 03/09/2023 4 - Hives Comments: Skin test is negative. Challenge pending PENICILLINS 10/15/2020 4 - Hives Date Reviewed: 06/03/2024 Reviewed by: Nilton Zhang RN - Fully Assessed Reason for Visit: Infertility [285] Visit Diagnosis:Primary female infertility [N97.9] Order(s):FOLLICULAR US [facility] [[id number]] Order #: [id number]. #:[id number]: 1 Prescriptions as of 06/03/2024 - Norethin [...] 06/03/2024 6:49 AM S tatus: F Source: [facility] Order Comment: Specimen Type : BLOOD SPECIMEN Ordering Facility: [facility] Address: [address] [place] [address] TYPE CODE TESTS RESULT OUT OF RANGE [...] 3243 pg/mL Second trimester : 1561 to 06893 pg/mL Third trimester : 8285 to >81474 pg/mL Post-menopausal Estradiol reference range: < 41 pg/mL Reference: 1. Estradiol - E2 (Estradiol III) [package insert V 3.0 Slovak]. [facility], [place], [place], February 2016. Performed By: #### 2243-4 ## ## [facility] CLIA [id number] [address] [place] [address] [facility] PROGRESS Observed: 05/27/2024 1:06 PM Status: COMPLETED Source: [facility]NO ID: [id number] Author: NILTON ZHANG RN Service: ? Author [...] Observed: 05/27/2024 11:45 AM Status: COMPLETED Source: [facility] HNO ID: [id number] Author: TIFFANY GONZALEZ MD Service: ? Author Type: Physician Type: Progress Notes Filed: 05/27/2024 13:07 Note Text: LOUISA Attending Physician Note: Ultrasound and lab results reviewed. Based on review of ultrasound and lab results, medication dose and follow up date plans provided. See cycle flowsheet for dosing details. Tiffany Gonzalez MD, [facility] PROGRESS Observed: 05/27/2024 7:01 AM Status: COMPLETED Source: [facility] ID: [id number] Author: NILTON ZHANG RN Service: ? Author [...] Observed: 05/27/2024 7:00 AM Status: COMPLETED Source: [facility] Nurse Visit (REIAV) TIN ARIZMENDI ([id number]) 1985 F Date Time Provider Department 05/27/24 7:00 AM NURSE LOUISA [facility] REIAV During your visit today, we [...] cycle per physician, see flowsheet for details. Logisticarehart message sent. Medications reviewed and verified, instructions given. Patient denies any questions or concerns. Message sent to scheduling pool for next appt. Nilton Zhang RN May 27, 2024 1:06 PM Referring Provider: KOBI WEINER [[id number]] Allergies As of Date: 05/27/2024 Noted Allergy Reaction AMOXACILLIN (AMOXICILLIN) 03/09/2023 4 - Hives Comments: Skin test is negative. Challenge pending PENICILLINS 10/15/2020 4 - Hives Date Reviewed: 05/27/2024 Reviewed by: Nilton Zhang RN - Fully Assessed Reason for Visit: Infertility [285] Visit Diagnosis:Female infertility [N97.9] Order(s):FOLLICULAR US [facility] [[id number]] Order #: [id number]. #:[id number]: 1 Prescriptions as of 05/27/2024 - Norethin [...] 05/27/2024 6:44 AM S tatus: F Source: [facility] Order Comment: Specimen Type : BLOOD SPECIMEN Ordering Facility: [facility] Address: [address] [place] [address] TYPE CODE TESTS RESULT OUT OF RANGE [...] 3243 pg/mL Second trimester : 1561 to 42389 pg/mL Third trimester : 8285 to >51451 pg/mL Post-menopausal Estradiol reference range: < 41 pg/mL Reference: 1. Estradiol - E2 (Estradiol III) [package insert V 3.0 Slovak]. [facility], [place], [place], February 2016. Performed By: #### 2243-4 ## ## [facility] CLIA [id number] [facility] [place], [place] [address] [place] [address] [place] TYPE + SCREEN Collected: 05/27/2024 6:44 AM Status: F Source: [facility] Order Comment: Specimen Type : BLOOD SPECIMEN Ordering Facility: [facility] Address: [address] [place] [address] TYPE CODE TESTS RESULT OUT OF RANGE REFERENCE UNITS LAB [id number] ABO O LAB [id number] RH Positive LAB [id number] ANTIBODY SCREEN Negative LAB [id number] TYPE AND SCREEN EXPIRATION 05/30/2024 23:59 LAB PREVAB HISTORICAL AB SCR STATUS NEGATIVE Performed By: #### TSCR #### [facility] CLIA [id number] [address] [place] [address] [facility] Observed: 05/24/2024 11:46 AM Status: COMPLETED Source: [facility] HNO ID: [id number] Author: IMCHEL JOSEPH MD Service: ? Author Type: Physician [...] Count Sperm M 365.50 % Motile Sperm (%WV + %HUMAN RESOURCE OFFICER) >=40 % 76 Forward Progression 3 = [...] PATHOLOGY Collected: 12:26 PM Status: F Source: [facility] Order Comment: Specimen Type : TISSUE SPECIMEN Ordering Facility: [facility] Address: [address] [place] [address] TYPE CODE TESTS RESULT OUT OF RANGE REFERENCE UNITS PATHOLOGY [id number] CASE REPORT Result Comment: Surgical Pat hology Report Case: [id number] Authorizing Provider: Odette Villa MD Collected: 05/13/2024 12:26 PM [facility] Received: 05/13/2024 03:34 PM Pathologist: Harry Hodge MD Specimen: Endometrium, Biopsy PATHOLOGY [id number] FINAL DIAGNOSIS Result Comment: A. Endometri um, biopsy: - Proliferative endometrium. ACV/dsh 05/18/2024 OLOGY [id number] GROSS DESCRIPTION Result Comment: A. Endometri um, Biopsy Received in formalin are multiple butt to butt-white, soft feathery segments of tissue admixed mucinous material aggregating to 0.4 x 0.2 x 0.1 cm. Totally submitted in one cassette. DB May 13, 2024 11:22 PM Gross [place] [address] PATHOLOGY CDX2 CLINICAL HISTORY 38yo with something on imaging concerning for polyp PATHOLOGY [facility] FINAL PERFORMING LAB Result Comment: Diagnostic i nterpretation performed at [place] [address] CLIA# [id number] Hoop Rolls Operator: Vincent Leon M.D. Performed By: #### S #### [facility] CLIA [id number] [address] [place] [address] PROCEDURE Observed: 05/13/2024 12:17 PM Status: COMPLETED Source: [facility] HNO ID: [id number] Author: MICHEL JOSEPH MD Service: ? Author [...] Observed: 05/13/2024 11:30 AM Status: COMPLETED Source: [facility] Office Visit (IVFBE) TIN ARIZMENDI ([id number]) 1985 F Date Time Provider Department 05/13/24 [...] Michel Joseph MD Referring Provider: MICHEL JOSEPH [[id number]] Allergies As of Date: 05/13/2024 Noted Allergy Reaction AMOXACILLIN (AMOXICILLIN) 03/09/2023 4 - Hives Comments: Skin test is negative. Challenge pending PENICILLINS 10/15/2020 4 - Hives Date Reviewed: 05/13/2024 Reviewed by: Tin Gardner RN - Fully Assessed Primary Visit Diagnosis:Pre-operative laboratory examination [Z01.812] Other Visit Diagnoses:Endometrial polyp [N84.0] Encounter for fertility testing [Z31.41] Order(s):HCG QUAL UR B/O [[id number]] Order #: [id number] SURGICAL PATHOLOGY [FSD2813] Order #: [id number]. #:[id number] Prescriptions as of 05/15/2024 - Norethin Misael-Eth [...] Observed: 05/13/2024 12:00 AM Status: COMPLETED Source: [facility] Letter Text NAVIN Observed: 05/05/2024 12:00 AM Status: COMPLETED Source: [facility] Telephone (REIAV) TIN ARIZMENDI ([id number]) 1985 F Date Time Provider Department 05/05/24 [...] - Hives Date Reviewed: 04/29/2024 Reviewed by: iMguel Levy APRN.SOCIAL SERVICES DIRECTOR - Fully Assessed Prescriptions as of 05/05/2024 [...] Observed: 05/04/2024 12:00 AM Status: COMPLETED Source: [facility] Telephone (REIBD) TIN ARIZMENDI ([id number]) 1985 F Date Time Provider Department 05/04/24 [...] Date Reviewed: 04/29/2024 Reviewed by: Miguel Levy APRN.SOCIAL SERVICES DIRECTOR - Fully Assessed Reason for Visit: Patient Question [6217] Prescriptions as of 05/04/2024 - Norethin Misael-Eth [...] Observed: 05/03/2024 12:00 AM Status: COMPLETED Source: [facility] Telephone (REIBD) TIN ARIZMENDI ([id number]) 1985 F Date Time Provider Department 05/03/24 [...] Date Reviewed: 04/29/2024 Reviewed by: Miguel Levy APRN.SOCIAL SERVICES DIRECTOR - Fully Assessed Reason for Visit: Next [...] Observed: 04/29/2024 12:01 PM Status: COMPLETED Source: [facility] ID: [id number] Author: MIGUEL LEVY APRN.SOCIAL SERVICES DIRECTOR Service: ? Author Type: Nurse Practitioner Type: Procedures Filed: 04/29/2024 12:08 Note Text: Tin Arizmendi is a 38 year old here for SIS. Referred by: Michel Joseph [id number] [place] [address] Chief Complaint: irregular bleeding Endometrial Biopsy: No [...] Observed: 04/29/2024 11:00 AM Status: COMPLETED Source: [facility] Office Visit (REIAV) TIN ARIZMENDI ([id number]) 1985 F Date Time Provider Department 04/29/24 11:00 AM MIGUEL LEVY During your visit today, we recorded the following information about you: Pulse Blood pressure Weight Height 64/minute 144/99 117.9 kg 1.626 m Miguel Levy APRN.CNP 04/29/2024 12:08 PM Signed Tin Arizmendi is a 38 year old here for SIS. Referred by: Michel Joseph [id number] [id number] Chief Complaint: irregular bleeding Endometrial Biopsy: No [...] Care Visit completed when applicable. Miguel Levy APRN.SOCIAL SERVICES DIRECTOR PROCEDURE: EXTERNAL GENITALIA: Normal in appearance without [...] See ViewPoint for procedure results. Miguel Levy APRN.SOCIAL SERVICES DIRECTOR Referring Provider: MICHEL JOSEPH [[id number]] Allergies As of Date: 04/29/2024 Noted Allergy Reaction AMOXACILLIN (AMOXICILLIN) 03/09/2023 4 - Hives Comments: Skin test is negative. Challenge pending PENICILLINS 10/15/2020 4 - Hives Date Reviewed: 04/29/2024 Reviewed by: Miguel Levy APRN.SOCIAL SERVICES DIRECTOR - Fully Assessed Reason for Visit: Infertility [285] Primary Visit Diagnosis:Pre-procedure lab exam [Z01.812] Other Visit Diagnosis:Fertility testing [Z31.41] Order(s):HCG QUAL UR B/O [[id number]] Order #: [id number] SONOHYSTEROGRAPHY (SIS) [facility] [[id number]] Order #: [id number]. #:[id number]: [id number] Prescriptions as of 05/01/2024 - Norethin [...] Observed: 04/15/2024 12:54 PM Status: COMPLETED Source: [facility] ID: [id number] Author: TIFFANY GONZALEZ MD Service: ? Author [...] Observed: 04/15/2024 10:05 AM Status: COMPLETED Source: [facility] HNO ID: [id number] Author: NILTON ZHANG RN Service: ? Author [...] Observed: 04/15/2024 7:45 AM Status: COMPLETED Source: [facility] Nurse Visit (REIAV) TIN ARIZMENDI ([id number]) 1985 F Date Time Provider Department 04/15/24 7:45 AM NURSE LOUISA [facility] REJ REIAV During your visit today, we [...] Gonzalez MD, CROW Referring Provider: KOBI WEINER [[id number]] Allergies As of Date: 04/15/2024 Noted Allergy Reaction AMOXACILLIN (AMOXICILLIN) 03/09/2023 4 - Hives Comments: Skin test is negative. Challenge pending PENICILLINS 10/15/2020 4 - Hives Date Reviewed: 04/15/2024 Reviewed by: Nilton Zhang RN - Fully Assessed Reason for Visit: Infertility [285] Primary Visit Diagnosis:Irregular menses [N92.6] Other Visit Diagnosis:Female infertility [N97.9] Order(s):[facility] [[id number]] Order #: [id number]. #:[id number]: 1 Norethin Misael-Eth Estrad-FE (MICROGESTIN FE) 1.5 [...] 04/15/2024 7:27 AM S tatus: F Source: [facility] Order Comment: Specimen Type : BLOOD SPECIMEN Ordering Facility: [facility] Address: [address] [place] [address] TYPE CODE TESTS RESULT OUT OF RANGE REFERENCE UNITS LAB 2243[facility] Estradiol SerPl-mCnc 38 High 8-37 pg/mL Result [...] 3243 pg/mL Second trimester : 1561 to 11653 pg/mL Third trimester : 8285 to >06315 pg/mL Post-menopausal Estradiol reference range: < 41 pg/mL Reference: 1. Estradiol - E2 (Estradiol III) [package insert V 3.0 Slovak]. [facility] [email or web address], [place], [place], February 2016. Performed By: #### 2243-4 ## ## [facility] CLIA [id number] [address] LH SERPL-ACNC Collected: 4 7:27 AM Status: F Source: [facility] Order Comment: Specimen Type : BLOOD SPECIMEN Ordering Facility: [facility] Address: [address] [place] [address] TYPE CODE TESTS RESULT OUT OF RANGE REFERENCE UNITS LAB 84803-3(LOINC) LH SerPl-aCnc 10.9 See comment mIU/mL Result Comment: Reference ra nge: Follicular: 2.4-12.6 mIU/mL Midcycle: 14.0-95.6 mIU/mL Luteal: 1.0-11.4 mIU/mL Post [place]: 7.7-58.5 mIU/mL Performed By: #### 30864-4, 2839-9 #### [facility] CLIA [id number] PROGEST SERPL-MCNC Collected: 4 7:27 AM Status: F Source: [facility] Order Comment: Specimen Type : BLOOD SPECIMEN Ordering Facility: [facility] Address: [address] [place] [address] TYPE CODE TESTS RESULT OUT OF RANGE [...] Progesterone (Progesterone III) [package insert V 1.0 Slovak]. [facility], [place], [place]. June 2015. Performed By: #### 43939-0, 2839-9 #### [facility] CLIA [id number] [place] [address] [facility] 17 HYDROXYPROGESTERONE Collected: 04/07 1:27 PM Status: [...] Endocrinol Metab. 1991;73:674-686; J Clin Endocrinol Metab. 1989;69;8787-5558; J Clin Endocrinol Metab. 1994;78:226-270. Pediatr Res 1988;23:525-529. MedLinePlus (accessed 02/27/14). This test was developed and its analytical performance characteristics have been determined by [facility] [place], [place]. It has not been cleared or approved by the U.S. Food and Drug Administration. This assay has been validated pursuant to the CLIA regulations and is used for clinical purposes. Performed By: #### 17HYDP ## ## BLOSSOM Goodwin ([id number]) [facility] ([id number]) [address] [facility] [place] [address] PROGEST SERPL-MCNC Collected: 1:23 PM Status: F [...] By: #### 2839-9 ## ## PATY Mchugh ([id number]) [facility] ([id number]) [address] [place] [address] TESTOST SERPL-MCNC Collected: 1:23 PM Status: F Source: [facility] TYPE CODE TESTS RESULT OUT OF RANGE REFERENCE UNITS LAB 2986-8(LOINC) Testost SerPl-mCnc 48 14-76 NG/DL Performed By: #### 2986-8 ## ## PATY Mchugh ([id number]) [facility] ([id number]) [address] [place] [address] TSH SERPL-ACNC Collected: 1:23 PM Status: F Source: [facility] TYPE CODE TESTS RESULT OUT OF RANGE REFERENCE UNITS LAB 3016-3(LOINC) TSH SerPl-aCnc 0.974 0.400-4.500 MCIU/ML Performed By: #### 3016-3 ## ## PATY Mchugh ([id number]) [facility] ([id number]) [address] [place] [address] 17 HYDROXYPROGESTERONE Collected: 04/07 1:09 PM Status: F Source: [facility] TYPE CODE TESTS RESULT OUT OF RANGE REFERENCE UNITS LAB 1668-3(LOINC) 17OHP SerPl-mCnc Test Not Performed. data entry supervisor error - Test reordered. Performed By: #### 17HYDP ## ## PATY Mchugh ([id number]) , [place] PROGEST SERPL-MCNC Collected: 04/07/2024 1:09 PM Sta tus: F Source: [facility] TYPE CODE TESTS RESULT OUT OF RANGE REFERENCE UNITS LAB 2839-9(LOINC) Progest SerPl-mCnc Test Not Performed. data entry supervisor error - Test reordered. <1.4 NG/ML Performed By: #### 2839-9 ## ## PATY WAHLU Jeison ([id number]) , [facility] [[email or web address]] TESTOST SERPL-MCNC Collected: 04/07/2024 1:09 PM Sta tus: F Source: [facility] TYPE CODE TESTS RESULT OUT OF RANGE REFERENCE UNITS LAB 2986-8(LOINC) Testost SerPl-mCnc Test Not Performed. data entry supervisor error - Test reordered. 14-76 NG/DL Performed By: #### 2986-8 ## ## PATY WAHLU Jeison ([id number]) , [facility] [[email or web address]] TSH SERPL-ACNC Collected: 1:09 PM Status: F Source: [facility] TYPE CODE TESTS RESULT OUT OF RANGE REFERENCE UNITS LAB 3016-3(LOINC) TSH SerPl-aCnc Test Not Performed. data entry supervisor error - Test reordered. 0.400-4.500 MCIU/ML Performed By: #### 3016-3 ## ## PATY Mchugh ([id number]) , [facility] [[email or web address]] PROGRESS Observed: 04/07/2024 8:58 AM Status: COMPLETED Source: [facility] HNO ID: [id number] Author: NILTON ZHANG RN Service: ? Author [...] Observed: 04/07/2024 12:00 AM Status: COMPLETED Source: [facility] Telephone (REIBD) ALECRAYRAYTIN FERNANDES ([id number]) 1985 F Date Time Provider Department 04/07/24 TIFFANY GONZALEZ During your visit today, we recorded the following information about you: Greer Horton 04/07/2024 11:33 AM Signed Pt has ques on getting [place] labs done in [place] will they be stat Nely Cotton RN 04/08/2024 8:39 AM Signed Call to pt at cell number listed Pt states that she had blood drawn locally since she is on vacation and call about results. Reviewed we have not received them yet but will keep a look out. Pt states she has the results and will send them via [employer] Pt verbalized understanding Nely Cotton RN April 08, 2024 8:39 AM Allergies As of Date: 04/07/2024 Noted Allergy Reaction AMOXACILLIN (AMOXICILLIN) 03/09/2023 4 - Hives Comments: Skin test is negative. Challenge pending PENICILLINS 10/15/2020 4 - Hives Date Reviewed: 03/08/2024 Reviewed by: Kari Cain MA - Fully Assessed Reason for Visit: nilton pt has ques on getting her labs in [place] [Other] Prescriptions as of 04/08/2024 - ethynodiol [...] Observed: 04/05/2024 4:34 PM Status: COMPLETED Source: [facility] HNO ID: [id number] Author: NILTON ZHANG RN Service: ? Author [...] Observed: 04/05/2024 9:29 AM Status: COMPLETED Source: [facility] HNO ID: [id number] Author: NILTON ZHANG RN Service: ? Author Type: Registered Nurse Type: Progress Notes Filed: 04/05/2024 16:08 Note Text: Progesterone and Hcg level from 04/04/[address] Joseph for review. Latest Ref Rng 04/04/2024 Progesterone See comment ng/mL 0.3 hCG Quantitative, Blood <5.0 mIU/mL <0.6 Nilton Zhang RN April 05, 2024 9:31 AM B-HCG SERPL-ACNC Collected: 4 8:03 AM Status: F Source: [facility] Order Comment: Specimen Type : BLOOD SPECIMEN Ordering Facility: [facility] Address: [address] [place] [address] TYPE CODE TESTS RESULT OUT OF RANGE REFERENCE UNITS LAB 45371-7(LOINC) B-HCG SerPl-aCnc <0.6 <5.0 mIU/mL Result Comment: Negative Performed By: #### 09748-8 # ### [facility] CLIA [id number] [address] [place] [address] [place] PROGEST SERPL-MCNC Collected: 8:03 AM Status: F Source: [facility] Order Comment: Specimen Type : BLOOD SPECIMEN Ordering Facility: [facility] Address: [address] [place] [address] TYPE CODE TESTS RESULT OUT OF RANGE [...] Progesterone (Progesterone III) [package insert V 1.0 Slovak]. [facility], [place], [place]. June 2015. Performed By: #### 2839-9 ## ## [facility] CLIA [id number] [address] [place] [address] [place] PROGRESS Observed: 04/01/2024 3:29 PM Status: COMPLETED Source: [facility] HNO ID: [id number] Author: NILTON ZHANG, LAUREN Service: ? Author [...] Observed: 03/30/2024 12:00 AM Status: COMPLETED Source: [facility] Telephone (REIBD) TIN ARIZMENDI ([id number]) 1985 F Date Time Provider Department 03/30/24 [...] Observed: 03/22/2024 12:00 AM Status: COMPLETED Source: [facility] Telephone (REIBD) TIN ARIZMENDI ([id number]) 1985 F Date Time Provider Department 03/22/24 [...] Fully Assessed Reason for Visit: Patient Question [7307] Order(s):ethynodiol diacetate-ethinyl estradiol 1 mg-35 mcg (ZOVIA [...] Observed: 03/08/2024 2:25 PM Status: COMPLETED Source: [facility] ID: [id number] Author: PEPE POPE MD Service: ? Author Type: Physician Type: Procedures Filed: 03/08/2024 14:27 Note Text: COLPOSCOPY PROCEDURE Date/Time: 03/08/2024 2:25 PM Performed by: Pepe Pope MD Authorized by: Pepe Pope MD Indication: HPV + Diagnosis: (R87.810) Cervical high risk HPV (human papillomavirus) test positive (primary encounter diagnosis) Patient's last menstrual period was 08/16/2023 (approximate). Informed Consent Consent Obtained: Written [place] Protocol SIGN IN Patient/Surrogate Stated/Verified: Patient name, Date of , Relevant allergies and Intended procedure TIME OUT Intended patient and procedure match the source document(s). Consent documented and matches the intended procedure. Relevant labs, photos, and/or imaging studies have been reviewed. Pre-Procedure Details: Pre-meds: None Local anesthetic: None Procedure Details: Procedure: Colposcopy of Vagina including Cervix [place] speculum was placed in the vagina. Acetic [...] Observed: 03/08/2024 2:00 PM Status: COMPLETED Source: [facility] Office Visit (OBGA) TIN ARIZMENDI ([id number]) 1985 F Date Time Provider Department 03/08/24 2:00 PM [facility] During your visit today, we recorded [...] 08/16/2023 (approximate). Informed Consent Consent Obtained: Written [place] Protocol SIGN IN Patient/Surrogate Stated/Verified: Patient name, Date of , Relevant allergies and Intended procedure TIME OUT Intended patient and procedure match the source document(s). Consent documented and matches the intended procedure. Relevant labs, photos, and/or imaging studies have been reviewed. Pre-Procedure Details: Pre-meds: None Local anesthetic: None Procedure Details: Procedure: Colposcopy of Vagina including Cervix [place] speculum was placed in the vagina. Acetic [...] Pepe Pope MD Referring Provider: PEPE POPE [[id number]] Allergies As of Date: 03/08/2024 Noted Allergy Reaction AMOXACILLIN (AMOXICILLIN) 03/09/2023 4 - Hives Comments: Skin test is negative. Challenge pending PENICILLINS 10/15/2020 4 - Hives Date Reviewed: 03/08/2024 Reviewed by: Kari Cain MA - Fully Assessed Reason for Visit: Colposcopy [1551] Primary Visit Diagnosis:Cervical high risk HPV (human papillomavirus) test positive [R87.810] Order(s):UA DIP,URINE HCG (POC) [4196903] Order #: [id number]. #:[id number] [PRO96] Order #: [id number] Prescriptions as of 03/08/2024 - PNV no.95/ferrous [...] for Encounter Date Provider Department Center 03/08/2024 [id number]-[place], [place] Encounter Status:Closed by PEPE POPE on 03/08/24 CNPN Observed: 03/07/2024 12:00 AM Status: COMPLETED Source: [facility] Telephone (REIBD) TIN ARIZMENDI ([id number]) 1985 F Date Time Provider Department 03/07/24 [...] Missed [O02.1] 10/30/2023 Encounter Status:Closed by LOTUS IVDES on 03/09/24 Observed: 02/24/2024 11:31 AM Status: COMPLETED Source: [facility] ID: [id number] Author: MICHEL JOSEPH MD Service: ? Author [...] Observed: 02/23/2024 3:33 PM Status: COMPLETED Source: [facility] ID: [id number] Author: MICHEL JOSEPH MD Service: ? Author Type: Physician Type: Progress Notes Filed: 02/24/2024 11:33 Note Text: REPRODUCTIVE ENDOCRINOLOGY AND INFERTILITY RETURN PATIENT CLINIC NOTE SERVICE DATE: 02/23/2024 SERVICE TIME: 3:33 PM NAME: Tin Arizmendi FERTILITY HISTORY 38yo [id number] with PCOS, BMI 44.77 Note copied from [...] (Z31.41) Fertility testing Plan: SONOHYSTEROGRAPHY (SIS) [facility] Extensive counseling today as I assume [...] Observed: 02/23/2024 3:00 PM Status: COMPLETED Source: [facility] Office Visit (REIMN) TIN ARIZMENDI ([id number]) 1985 F Date Time Provider Department 02/23/24 3:00 PM MICHEL JOSEPH During your visit today, we recorded the following information about you: Blood pressure Weight Height 124/82 118.3 kg 1.626 m Michel Joseph MD 02/24/2024 11:33 AM Signed REPRODUCTIVE ENDOCRINOLOGY AND INFERTILITY RETURN PATIENT CLINIC NOTE SERVICE DATE: 02/23/2024 SERVICE TIME: 3:33 PM NAME: Tin Arizmendi FERTILITY HISTORY 38yo [id number] with PCOS, BMI 44.77 Note copied from [...] pricing and financing. Please call the office [phone] to set up an appointment if you [...] freezer. Success rates based on age (from [facility] website, [facility] data = Clinic ; accessed 03/05/23): While [...] testing [Z31.41] Order(s):TESTOSTERONE, TOTAL [SQTESTO] Order #: [id number] FUTURE THYROID STIMULATING HORMONE [SQTSH] Order #: [id number] FUTURE PROGESTERONE [SQPROG] Order #: [id number] FUTURE HYDROXYPROGESTERONE-17 [SQHPROG] Order #: [id number] FUTURE SONOHYSTEROGRAPHY (SIS) [facility] [4179368] Order #: [id number]: 1 FUTURE medroxyPROGESTERone (PROVERA) 10 mg tabletTake [...] pricing and financing. Please call the office [phone] to set up an appointment if you [...] freezer. Success rates based on age (from [facility] website, [facility] data = Clinic ; accessed 03/05/23): While [...] Observed: 02/12/2024 12:00 AM Status: COMPLETED Source: [facility] Telephone (OBVisionary Mobile) ALECTIN SANTOS ([id number]) 1985 F Date Time Provider Department 02/12/24 [...] patient and LVM. Also sent patient a Logisticarehart message. Postponing to ensure scheduling. Roxanna May 02/16/2024 10:41 AM Signed 2nd attempt at calling patient and LVM. Also sent [employer]isticarehart message. Allergies As of Date: 02/12/2024 Noted [...] mouth two times a day. - Follitropin Kyeon (GONAL-F RFF REDI-JECT) 300/0.5 unit/mL pnij Inject [...] Collected: 024 10:53 AM Status: COMPLETED Source: [facility] TYPE CODE TESTS RESULT OUT OF RANGE [...] trophoblastic or nontrophoblastic neoplasms. Performed By: #### 32558-6 # ### [facility] ([id number]) [address] [facility] [place] [address] NAVIN Observed: 02/05/2024 12:00 AM Status: COMPLETED Source: [facility] Telephone (REIBD) TIN ARIZMENDI ([id number]) 1985 F Date Time Provider Department 02/05/24 [...] testing [Z31.41] Order(s):HCG QUANTITATIVE [SQHCGQT] Order #: [id number] FUTURE Prescriptions as of 02/05/2024 - medroxyPROGESTERone [...] / CODE REACTION SEVERITY SOURCE 03/09/2023 DRUG INGREDI/401695488(SN OMED CT) AMOXICILLIN [facility] 10/15/2020 Drug Class/142310574(SNOM ED CT) PENICILLINS [facility] 08/27/2017 DRUG INGREDI/971358825(SN OMED CT) AMOXICILLIN [facility] 08/27/2017 Drug Class/539256248(SNOM ED CT) PENICILLINS [facility] ENCOUNTERS ADMIT/DISCHARGE ACCOUNT NUMBER ADMITTING ENCOUNTER CLASS LOCATION SOURCE 02/02/2025/02/03/20 25 [id number] Ambulatory Building:NOM S BCP OB [facility] EPIC 01/24/2025/01/25/20 25 [id number] [facility] 01/10/2025/01/11/20 [id number] Ambulatory Building:NOM S FNR OB [facility] EPIC 01/09/2025/01/10/20 25 [id number] [facility] 01/09/2025/01/10/20 25 [id number] Ambulatory [facility] 12/30/2024/12/31/19 25 [id number] [facility]12/17/19 25 [id number] [facility] 12/14/2024/12/15/19 25 [id number] Ambulatory [facility]SALB [facility] 12/12/2024/12/13/19 25 [id number] Ambulatory [facility]LNLB [facility] 12/06/2024/12/07/19 25 [id number] Ambulatory Buildin 80 [facility] 11/25/2024/11/26/19 25 [id number] Ambulatory [facility]JENNIFER [facility] 11/25/2024/11/26/19 25 [id number] [facility] 11/24/2024/11/25/19 25 [id number] [facility]/24/2024/11/25/19 25 [id number] [facility] 11/22/2024/11/23/19 25 [id number] Ambulatory Building:PFM _LAB [facility] 11/22/2024/11/23/19 25 [id number] Ambulatory Buildin 80 [facility] 11/21/2024/11/22/19 25 [id number] Ambulatory [facility]ENN[facility]ER [facility] 11/21/2024/11/22/19 25 [id number] [facility] 11/14/2024/11/15/19 25 [id number] Ambulatory [facility]JENN[facility]ER [facility] 11/14/2024/11/15/19 25 [id number] [facility] 11/08/2024/11/08/19 25 [id number] [facility] 11/08/2024/11/08/19 25 [id number] Ambulatory Buildin 94 [facility] Ambulatory [facility] 10/23/2024/10/23/19 25 [id number] Ambulatory [facility]MARC [facility] 10/23/2024/10/23/19 25 [id number] Ambulatory [facility]MARC [facility] 10/21/2024/10/21/19 25 [id number] Ambulatory [facility]JENN[facility]ER [facility] 10/21/2024/10/21/19 25 [id number] [facility] 10/19/2024/10/19/19 25 [id number] Ambulatory [facility]JENN[facility]ER [facility] 10/19/2024/10/19/19 25 [id number] [facility] 10/12/2024/10/12/19 25 [id number] Ambulatory [facility]JENNIFER [facility] 10/12/2024/10/12/19 25 [id number] [facility] 10/07/2024/10/07/19 25 [id number] Ambulatory Buildin 94 [facility] Ambulatory [facility] 09/21/2024/09/21/19 25 [id number] [facility] 09/20/2024/09/20/19 25 [id number] [facility] 09/20/2024/09/20/19 25 [id number] [facility]ENN[facility]ER [facility] 09/19/2024/09/19/19 25 [id number] [facility] 09/19/2024/09/19/19 25 [id number] [facility] 09/15/2024/09/15/19 25 [id number] [facility] 09/15/2024/09/15/19 25 [id number] [facility] 09/12/2024/09/12/20 24 [id number] [facility] 09/12/2024/09/12/20 24 [id number] [facility] 08/17/2024/08/17/20 24 [id number] [facility] 08/17/2024/08/17/20 24 [id number] [facility] 08/15/2024/08/15/20 24 [id number] [facility] 08/15/2024/08/15/20 24 [id number] [facility] 08/10/2024/08/10/20 24 [id number] [facility] 08/10/2024/08/10/20 24 [id number] [facility] 07/18/2024/07/18/20 24 [id number] [facility] 07/18/2024/07/18/20 24 [id number] [facility] 07/14/2024/07/14/20 24 [id number] [facility] 07/14/2024/07/14/20 24 [id number] [facility] 07/07/2024/07/07/20 24 [id number] [facility] 07/07/2024/07/07/20 24 [id number] [facility] 07/06/2024/07/06/20 24 [id number] [address] [place] [address] Ambulatory [facility] 06/15/2024/06/15/20 24 [id number] [facility] 06/15/2024/06/15/20 24 [id number] [facility] 06/13/2024/06/13/20 24 [id number] [facility] 06/13/2024/06/13/20 24 [id number] [facility] 06/10/2024/06/10/20 24 [id number] [facility] 06/10/2024/06/10/20 24 [id number] [facility] 06/06/2024/06/06/20 24 [id number] [facility] 06/06/2024/06/06/20 24 [id number] [facility] 06/03/2024/06/03/20 24 [id number] [facility] 06/03/2024/06/03/20 24 [id number] [facility] 05/27/2024/05/27/20 24 [id number] [facility]REMAHI [facility] 05/27/2024/05/27/20 24 [id number] [facility] 05/13/2024/05/13/20 24 [id number] [facility]BEION [facility] 04/29/2024/04/29/20 24 [id number] [facility]REMAHI [facility] 04/15/2024/04/15/20 24 [id number] [facility]ENN[facility]ER [facility] 04/15/2024/04/15/20 24 [id number] [facility] 04/04/2024/04/04/20 24 [id number] [facility]SALB [facility] 03/08/2024/03/08/20 24 [id number] [facility]/02/2024/03/02/20 24 [id number] Ambulatory Buildin A [facility] 02/23/2024/02/23/20 24 [id number] [facility]OBGF [facility] 02/05/2024/02/05/20 24 [id number] Ambulatory Building:PFM _LAB [facility] PAYERS ENCOUNTER GUARANTOR PAYER SUBSCRIBER SOURCE 02/02/2025 TIN CARABALLO: [id number] [place] [address]Ifb: (hp) Primary Insurance:MEDICAL MUTUALPolicy Number: [id number] Date:2022-09-14 TIN CARABALLO: [id number] [place] [address] [facility] EPIC 01/24/2025 Tin Segura [id number] [facility] [place], [place] [address]Aei: (HP) Primary Insurance:Self PayPolicy Number: Effective Date:2025-01-24 [facility]10/2025 TIN Segura FARIDAB: [address] [place] [address]Xsa: (HP) Primary Insurance:MEDICAL MUTUALPolicy Number: [id number] Date:2022-09-14 TIN Segura FARIDAB: [id number] [place] [address] [facility] 01/09/2025 Primary Insuranc e:MMO SUPERMED PPOPolicy Number: [id number] Date:4915-99-23Bvdk Name:Cristina CASTLE FARIDAB: [id number] [place] [address] [facility] 01/09/2025 Primary Insuranc e:MMO SUPERMED PPOPolicy Number: [id number] Date:8222-58-38Lnus Name:Cristina CASTLE FARIDAB: [id number] [place] [facility] [place] [address] [facility] 12/30/2024 Primary Insuranc e:MMO SUPERMED PPOPolicy Number: [id number] Date:6980-96-94Wtms Name:Cristina CASTLE FARIDAB: [id number] [place] [place] [address] [facility] 12/16/2024 Primary Insuranc e:MMO SUPERMED PPOPolicy Number: [id number] Date:8716-85-31Afwr Name:Cristina CASTLE FARIDAB: [id number] [place] [place] [address] [facility] 12/14/2024 Primary Insuranc e:MMO SUPERMED PPOPolicy Number: [id number] Date:1441-50-23Ynrq Name:Cristina ARIZMENDIB: [id number] [place] [address] [facility] 12/12/2024 Primary Insuranc e:MMO SUPERMED PPOPolicy Number: [id number] Date:3060-32-81Vlte Name:Cristina CARLSONRAYRAYDENAB: [id number] [facility] [place] [address] [facility] 12/06/2024 TIN PACHECO FARIDAB: [address] [place], [place] [address]Kqn: () Primary Insurance:MMO SUPERMEDPolicy Number: [id number] Date:2019-09-14 TIN PACHECO FARIDAB: [id number] [place], [place] [address]Twl: (HP) () [facility] 11/25/2024 Primary Insuranc e:MMO SUPERMED PPOPolicy Number: [id number] Date:2464-54-61Hfek Name:Cristina CARLSONRAYRAYDENAB: [id number] [place] [address] [facility] 11/25/2024 Primary Insuranc e:MMO SUPERMED PPOPolicy Number: [id number] Date:4621-94-37Dgda Name:Cristina CARLSONRAYRAYDENAB: [id number] [place] [address] [facility] 11/24/2024 Primary Insuranc e:MMO SUPERMED PPOPolicy Number: [id number] Date:6872-40-48Zuhx Name:Cristina CARLSONYSABELB: [id number] [place] [address] [facility] 11/24/2024 Primary Insuranc e:MMO SUPERMED PPOPolicy Number: [id number] Date:2368-26-29Gyfw Name:Cristina CARLSONCORI: [id number] [place] [address] [facility] 11/22/2024 TIN PACHECO FARIDAB: [address] [address]Piv: (HP) Primary Insurance:MMO SUPERMEDPolicy Number: [id number] Date:2019-09-14 TIN PACHECO FARIDAB: [id number] [place] [place] [address]Jtd: (HP) (WP) [facility] 11/22/2024 TIN PACHECO FARIDAB: [address] [facility] [place] [address]Uob: (HP) Primary Insurance:MMO SUPERMEDPolicy Number: [id number] Date:2019-09-14 TIN PACHECO FARIDAB: [id number] [facility] [place] [place] [address]Sfc: (HP) () [facility] 11/21/2024 Primary Insuranc e:MMO SUPERMED PPOPolicy Number: [id number] Date:2453-08-44Oeej Name:Cristina CASTLE FARIDAB: [id number] [place] [address] [facility] 11/21/2024 Primary Insuranc e:MMO SUPERMED PPOPolicy Number: [id number] Date:1350-53-94Dpgh Name:Cristina CARLSONCORI: [id number] [place] [address] [facility] 11/14/2024 Primary Insuranc e:MMO SUPERMED PPOPolicy Number: [id number] Date:3950-69-10Fegr Name:Cristina CARLSONRAYRAYDENAB: [id number] [place] [address] [facility] 11/14/2024 Primary Insuranc e:MMO SUPERMED PPOPolicy Number: [id number] Date:5805-15-53Mvyw Name:Cristina CARLSONRAYRAYDENAHE: [id number] [place] [address] [facility] 11/08/2024 TIN PACHECO FARIDAB: [address] [address]Iis: (HP) Primary Insurance:MMO SUPERMEDPolicy Number: [id number] Date:2019-09-14 TIN CARLSONYSABELB: [id number] [facility] [place], [place] [address]Xoc: (HP) () [facility] 11/08/2024 TIN PACHECO FARIDAB: [address] [facility] [address]Sor: (HP) Primary Insurance:MMO SUPERMEDPolicy Number: [id number] Date:2019-09-14 TIN PACHECO FARIDAB: [id number] [facility] [place], [place] [address]Nnw: (HP) () [facility] 10/23/2024 Primary Insuranc e:MMO SUPERMED PPOPolicy Number: [id number] Date:8367-48-99Rwoy Name:Cristina CARLSONRAYRAYDENAHE: [id number] [place] [address] [facility] 10/23/2024 Primary Insuranc e:MMO SUPERMED PPOPolicy Number: [id number] Date:1977-85-63Toot Name:Cristina CARLSONYSABELB: [id number] [place] [address] [facility] 10/21/2024 Primary Insuranc e:MMO SUPERMED PPOPolicy Number: [id number] Date:6263-05-95Uqvi Name:Cristina ARIZMENDIB: [id number] [place] [facility] [place] [address] [facility] 10/21/2024 Primary Insuranc e:MMO SUPERMED PPOPolicy Number: [id number] Date:7194-49-89Hghc Name:Cristina CARLSONRAYRAYDENAB: [id number] [facility], [place] [address] [place] [address] 10/19/2024 Primary Insuranc e:MMO SUPERMED PPOPolicy Number: [id number] Date:1781-61-55Jgsp Name:Cristina CASTLE FARIDAB: [id number] [facility], [place] [address] [place] [address] 10/19/2024 Primary Insuranc e:MMO SUPERMED PPOPolicy Number: [id number] Date:9994-59-01Ybir Name:Cristina CASTLE FARIDAB: [id number] [place], [place] [address] [place] [address] 10/12/2024 Primary Insuranc e:MMO SUPERMED PPOPolicy Number: [id number] Date:8725-67-33Qmkp Name:Cristina CARLSONYSABELB: [id number] [place] [place] [address] [facility] 10/12/2024 Primary Insuranc e:MMO SUPERMED PPOPolicy Number: [id number] Date:7261-91-62Bypd Name:Cristina CARLSONCORI: [id number] [place], [place] [address] [place] [address] 10/07/2024 TIN SEVERINOShaka IQBALB: N [place], [place] [address]Tel: () Primary Insurance:MMO SUPERMEDPolicy Number: [id number] Date:2019-09-14 TIN CARLSONRAYRAYDENAB: [id number] [place], [place] [address]Idb: (HP) (WP) [facility] 09/21/2024 Primary Insuranc e:MMO SUPERMED PPOPolicy Number: [id number] Date:4097-33-61Hofi Name:Cristina CARLSONYSABELB: [id number] [place], [place] [address] [place] [address] 09/20/2024 Primary Insuranc e:MMO SUPERMED PPOPolicy Number: [id number] Date:4722-10-46Snqg Name:Cristina CASTLE FARIDAB: [id number] 09/20/2024 Primary Insuranc e:MMO SUPERMED PPOPolicy Number: [id number] Date:0994-45-25Jgmh Name:Cristina CASTLE FARIDAB: [id number] 09/19/2024 Primary Insuranc e:MMO SUPERMED PPOPolicy Number: [id number] Date:1135-69-24Oodd Name:Cristina CASTLE FARIDAB: [id number] [place] [address] [facility] 09/19/2024 Primary Insuranc e:MMO SUPERMED PPOPolicy Number: [id number] Date:4825-99-84Abfr Name:Cristina CASTLE FARIDAB: [id number] 09/15/2024 Primary Insuranc e:MMO SUPERMED PPOPolicy Number: [id number] Date:0737-66-49Hrfw Name:Cristina CASTLE FARIDAB: [id number] 09/15/2024 Primary Insuranc e:MMO SUPERMED PPOPolicy Number: [id number] Date:5709-35-09Ttts Name:Cristina CARLSONRAYRAYDENAB: [id number] [place] [address] [facility] 09/12/2024 Primary Insuranc e:MMO SUPERMED PPOPolicy Number: [id number] Date:5995-52-54Vztp Name:Cristina CARLSONYSABELB: [id number] [place] [address] [facility] 09/12/2024 Primary Insuranc e:MMO SUPERMED PPOPolicy Number: [id number] Date:2012-23-64Invk Name:Cristina CARLSONYSABELB: [id number] [place] [address] [facility] 08/17/2024 Primary Insuranc e:MMO SUPERMED PPOPolicy Number: [id number] Date:8746-68-09Knvo Name:Cristina CASTLE FARIDAB: [id number] [place], [place] [address] [place] [address] 08/17/2024 Primary Insuranc e:MMO SUPERMED PPOPolicy Number: [id number] Date:2008-31-92Uycg Name:Cristina CARLSONYSABELB: [id number] [place] [address] [facility] 08/15/2024 Primary Insuranc e:MMO SUPERMED PPOPolicy Number: [id number] Date:8028-79-27Bcyd Name:Cristina CARLSONRAYRAYDENAB: [id number] [place] [address] [facility] 08/15/2024 Primary Insuranc e:MMO SUPERMED PPOPolicy Number: [id number] Date:9837-13-34Smaw Name:Cristina CASTLE FARIDAB: [id number] [place] [address] [facility] 08/10/2024 Primary Insuranc e:MMO SUPERMED PPOPolicy Number: [id number] Date:0860-55-40Daqm Name:Cristina ARIZMENDIB: [id number] [place] [address] [facility] 08/10/2024 Primary Insuranc e:MMO SUPERMED PPOPolicy Number: [id number] Date:6397-30-22Qhww Name:Cristina ARIZMENDIB: [id number] [place] [address] [facility] 07/18/2024 Primary Insuranc e:MMO SUPERMED PPOPolicy Number: [id number] Date:6954-06-90Hnll Name:Cristina CARLSONRAYRAYDENAB: [id number] [place] [address] [facility] 07/18/2024 Primary Insuranc e:MMO SUPERMED PPOPolicy Number: [id number] Date:4363-47-20Hyep Name:Cristina CARLSONRAYRAYDENAB: [id number] [place], [place] [address] [place] [address] 07/14/2024 Primary Insuranc e:MMO SUPERMED PPOPolicy Number: [id number] Date:7354-48-89Trmb Name:Cristina CARLSONRAYRAYDENAB: [id number] [place] [address] [facility] 07/14/2024 Primary Insuranc e:MMO SUPERMED PPOPolicy Number: [id number] Date:3524-28-85Ugcy Name:Cristina CARLSONRAYRAYDENAB: [id number] [place] [address] [facility] 07/07/2024 Primary Insuranc e:MMO SUPERMED PPOPolicy Number: [id number] Date:6939-32-51Wduk Name:Cristina CARLSONRAYRAYDENAB: [id number] [place] [address] [facility] 07/07/2024 Primary Insuranc e:MMO SUPERMED PPOPolicy Number: [id number] Date:6208-72-52Hzem Name:Cristina CARLSONCORI: [id number] [place] [place] [address] [facility] 07/06/2024 TIN PACHECO FARIDAB: [address] [place] [address]Wxr: (HP) Primary Insurance:MMO SUPERMEDPolicy Number: [id number] Date:2019-09-14 TIN PACHECO FARIDAB: [id number] [place], [place] [address]Dcs: (HP) () [facility] 06/15/2024 Primary Insuranc e:MMO SUPERMED PPOPolicy Number: [id number] Date:2734-41-68Pqnf Name:Cristina CASTLE FARIDAB: [id number] [place] [address] [facility] 06/15/2024 Primary Insuranc e:MMO SUPERMED PPOPolicy Number: [id number] Date:1607-20-27Vavz Name:Cristina CASTLE FARIDAB: [id number] [place] [address] [facility] 06/13/2024 Primary Insuranc e:MMO SUPERMED PPOPolicy Number: [id number] Date:0401-01-08Iysw Name:Cristina CASTLE FARIDAB: [id number] [place] [address] [facility] 06/13/2024 Primary Insuranc e:MMO SUPERMED PPOPolicy Number: [id number] Date:6279-53-27Rvgv Name:Cristina CASTLE ILYA: [id number] [place] [address] [facility] 06/10/2024 Primary Insuranc e:MMO SUPERMED PPOPolicy Number: [id number] Date:5808-49-66Qlbh Name:Cristina ARIZMENDIB: [id number] [place] [address] [facility] 06/10/2024 Primary Insuranc e:MMO SUPERMED PPOPolicy Number: [id number] Date:6069-59-39Gfoz Name:Cristina ARIZMENDIB: [id number] [place] [address] [facility] 06/06/2024 Primary Insuranc e:MMO SUPERMED PPOPolicy Number: [id number] Date:1247-62-58Wqjv Name:Cristina CARLSONRAYRAYDENAHE: [id number] 06/06/2024 Primary Insuranc e:MMO SUPERMED PPOPolicy Number: [id number] Date:4945-05-74Llos Name:Cristina CARLSONRAYRAYDENAB: [id number] 06/03/2024 Primary Insuranc e:MMO SUPERMED PPOPolicy Number: [id number] Date:0859-63-09Izhs Name:Cristina ARIZMENDIB: [id number] [place], [place] [address] [place] [address] 06/03/2024 Primary Insuranc e:MMO SUPERMED PPOPolicy Number: [id number] Date:9201-48-10Atnx Name:Cristina ARIZMENDIB: [id number] 05/27/2024 Primary Insuranc e:MMO SUPERMED PPOPolicy Number: [id number] Date:0085-20-94Qvhp Name:Cristina ARIZMENDIB: [id number] [place] [address] [facility] 05/27/2024 Primary Insuranc e:MMO SUPERMED PPOPolicy Number: [id number] Date:0342-47-04Tmzn Name:Cristina CASTLE FARIDAB: [id number] [place] [address] [facility] 05/13/2024 Primary Insuranc e:MMO SUPERMED PPOPolicy Number: [id number] Date:3066-47-48Lsmu Name:Cristina CASTLE FARIDAB: [id number] [place] [address] [facility] 04/29/2024 Primary Insuranc e:MMO SUPERMED PPOPolicy Number: [id number] Date:0944-30-28Krgp Name:Cristina CASTLE FARIDAB: [id number] [place] [address] [facility] 04/15/2024 Primary Insuranc e:MMO SUPERMED PPOPolicy Number: [id number] Date:8662-41-96Xtbr Name:Cristina CASTLE FARIDAB: [id number] [place] [address] [facility] 04/15/2024 Primary Insuranc e:MMO SUPERMED PPOPolicy Number: [id number] Date:8227-75-18Mznc Name:Cristina CASTLE FARIDAB: [id number] [place] [address] [facility] 04/04/2024 Primary Insuranc e:MMO SUPERMED PPOPolicy Number: [id number] Date:6514-55-12Gqon Name:Cristina CASTLE FARIDAB: [id number] [place] [address] [facility] 03/08/2024 Primary Insuranc e:MMO SUPERMED PPOPolicy Number: [id number] Date:6759-67-13Iqdm Name:Cristina CASTLE FARIDAB: [id number] [place] [address] [facility] 03/02/2024 TIN IQBALB: [address] [place] [place] [address]Zeb: (HP) Primary Insurance:MMO SUPERMEDPolicy Number: [id number] Date:2019-09-14 TIN PACHECO FARIDAB: [id number] [place], [place] [address]Cbx: (HP) (WP) [facility] 02/23/2024 Primary Insuranc e:MMO SUPERMED PPOPolicy Number: [id number] Date:4285-00-78Koyu Name:Cristina CASTLE ILYA: [id number] [place] [address] [facility] 02/05/2024 TIN PACHECO ILYA: [address] [place] [place] [address]Uhn: (HP) Primary Insurance:MMO SUPERMEDPolicy Number: [id number] Date:2019-09-14 TIN PACHECO ILYA: [id number] [place] [address]Iwa: (HP) (WP) [facility]
[2025-02-02 16:38] LABS: Basophils Absolute Auto 0.1 10^3/uL (0.0-0.1); Basophils Percent Auto 0.6 % (0.2-2.0); Eosinophils Absolute Auto 0.3 10^3/uL (0.0-0.7); Eosinophils Percent Auto 2.3 % (0.9-7.0); Hematocrit 39.5 % (36.0-48.0); Hemoglobin 13.6 g/dL (12.0-16.0); Immature Granulocytes Abs Auto 0.09 10^3/uL (0.00-0.03); Immature Granulocytes Pct Auto 0.8 % (0.0-0.5); Lymphocytes Absolute Auto 3.6 10^3/uL (1.2-3.8); Lymphocytes Percent Auto 31.5 % (20.5-60.0); Mean Corpuscular HGB Conc 34.4 g/dL (29.9-35.2); Mean Corpuscular Hemoglobin 30.8 pg (26.7-34.0); Mean Corpuscular Volume 89.4 fL (81.0-99.0); Mean Platelet Volume 8.4 fL (9.5-13.5); Monocytes Percent Auto 9.2 % (1.7-12.0); Neutrophils Absolute Auto 6.3 10^3/uL (1.4-6.5); Neutrophils Percent Auto 55.6 % (43.0-75.0); Platelet Count 326 10^3/uL (150-450); Red Blood Count 4.42 10^6/uL (4.20-5.40); White Blood Count 11.3 10^3/uL (4.0-11.0)
== END 2025-02-02 16:22 | disposition home or self-care (01) ==
LOC: LAB 16:21
PROVIDERS: PCP Family Medicine; Visit Provider Physician Assistant
DX: Z09 Encounter for follow-up examination after completed treatment for conditions other than malignant neoplasm (principal)
CPT/HCPCS: 36415; 85025

== ENCOUNTER 2025-02-02 16:28 | Outpatient (OUT) | payer OTHER, SELFPAY ==
--- OUTSIDE RECORDS SUMMARY | 2025-02-02 15:33 | XMS_ITS ---
Author Name Auto Generated Organization OHIP Support Name Relationship Address Phone DAVID ARIZMENDI Next of Kin Unknown [phone] David Arizmendi Next of Kin [address] [place] [address] + Maria Teresa, Marma Next of Kin Unknown [phone] DAVID ARIZMENDI Next of Kin Unknown [phone] DAVID ARIZMENDI Next of Kin Unknown Unavailable DAVID ARIZMENDI Next of Kin Unknown Unavailable DAVID ARIZMENDI Next of Kin Unknown Unavailable DAVID ARIZMENDI Next of Kin Unknown Unavailable DAVID ARIZMENDI Next of Kin Unknown Unavailable DAVID ARIZMENDI Next of Kin Unknown Unavailable MARIA TERESA, MARMA Next of Kin Unknown Unavailable MARIA TERESA, MARMA Next of Kin Unknown Unavailable [place] [address] [phone] DAVID ARIZMENDI Next of Kin Unknown Unavailable MARIA TERESA, MARMA Next of Kin Unknown Unavailable MARIA TERESA, MARMA Next of Kin Unknown Unavailable NOT GIVEN Next of Kin [facility] [place] [address] [phone] DAVID ARIZMENDI Next of Kin Unknown Unavailable MARIA TERESA, MARMA Next of Kin Unknown Unavailable MARIA TERESA, MARMA Next of Kin Unknown Unavailable NOT GIVEN [place] [address] [phone] DAVID ARIZMENDI Next of Kin Unknown Unavailable MARIA TERESA, MARMA Next of Kin Unknown Unavailable MARIA TERESA, MARMA Next of Kin Unknown Unavailable [place] [address] [phone] Care Team Providers Care Manager Heart Name Role Phone LEONEL RODRIGUEZ Attending Unavailable JESUS MANUEL BERNARDO Attending Unavailable MICHEL JOSEPH Referring Unavailable DEFRANCE, DAVID Saldana Primary Care Unavailable VIOLETA VIDAL Attending Unavailable DEFRANCE, DAVID Saldana Referring Unavailable DEFRANCE, DAVID Saldana Primary Care Unavailable DEFRANCE, DAVID Saldana Attending Unavailable DEFRANCE, T Referring Unavailable DEFRANCE, T Primary Care Unavailable DEFRANCE, DAVID Saldana Attending Unavailable DEFRANCE, T Referring Unavailable DEFRANCE, DAVID Saldana Primary Care Unavailable DEFRANCE, DAVID Saldana Attending Unavailable DEFRANCE, T Referring Unavailable DEFRANCE, DAVID Saldana Primary Care Unavailable DEFRANCE, T Referring Unavailable DEFRANCE, DAVID Saldana Primary Care Unavailable RHONDA, MILLIE Madsen Attending Unavailable DEFRANCE, DAVID Saldana Referring Unavailable DEFRANCE, DAVID Saldana Primary Care Unavailable RHONDA, MILLIE Madsen Referring Unavailable DEFRANCE, DAVID Saldana Primary Care Unavailable JOSE E CEDENO Attending Unavailable DEFRANCE, DAVID Saldana Referring Unavailable DEFRANCE, DAVID Saldana Primary Care Unavailable MINDZORA, MIGUEL Referring Unavailable MICHEL JOSEPH Referring Unavailable MICHEL JOSEPH Referring Unavailable MICHEL JOSEPH Referring Unavailable MICHEL JOSEPH Referring Unavailable MINDZORA, MIGUEL Referring Unavailable MINDZORA, MIGUEL Referring Unavailable MINDZORA, MIGUEL Referring Unavailable MINDZORA, MIGUEL Referring Unavailable MICHEL JOSEPH Referring Unavailable REHMER, ARLEY Referring Unavailable MICHEL JOSEPH Referring Unavailable MICHEL JOSEPH Referring Unavailable MICHEL JOSEPH Referring Unavailable MICHEL JOSEPH Referring Unavailable ATTARAN, RADHA Referring Unavailable ATTARAN, RADHA Referring Unavailable DUDZIAK, LEONEL Referring Unavailable MINDZORA, MIGUEL Referring Unavailable DUDZIAK, LEONEL Referring Unavailable MINDZORA, MIGUEL Referring Unavailable MICHEL JOSEPH Referring Unavailable MINDZORA, MIGUEL Referring Unavailable MINDZORA, MIGUEL Referring Unavailable MINDZORA, MIGUEL Referring Unavailable Sophia, Conor Attending Unavailable Sophia, Conor Admitting Unavailable DUDZIAK, LEONEL Referring Unavailable MICHEL JOSEPH Attending Unavailable MINDZORA, MIGUEL Referring Unavailable REHMER, ARLEY Attending Unavailable MINDZORA, MIGUEL Referring Unavailable SMOLEN, KOBI Referring Unavailable SMOLEN, KOBI Referring Unavailable MICHEL JOSEPH Attending Unavailable MICHEL JOSEPH Referring Unavailable REHMER, ARLEY Attending Unavailable MICHEL JOSEPH Referring Unavailable BRZOZOWSKI, PEPE Referring Unavailable BRZOZOWSKI, PEPE Attending Unavailable MINDZORA, MIGUEL Referring Unavailable JOSEPH, MICHEL Referring Unavailable JOSEPH, MICHEL Referring Unavailable JOSEPH, MICHEL Referring Unavailable JOSEPH, MICHEL Referring Unavailable JOSEPH, MICHEL Referring Unavailable DUDZIAK, LEONEL Referring Unavailable OMARI, TIFFANY Attending Unavailable JOSEPH, MICHEL Referring Unavailable REHMER, ARLEY Attending Unavailable JOSEPH, MICHEL Referring Unavailable ATTARAN, RADHA Attending Unavailable JOSEPH, MICHEL Referring Unavailable JOSEPH, MICHEL Referring Unavailable JOSEPH, MICHEL Referring Unavailable MINDZORA, MIGUEL Attending Unavailable JOSEPH, MICHEL Referring Unavailable JOSEPH, MICHEL Attending Unavailable SELF Referring Unavailable MINDZORA, MIGUEL Referring Unavailable ATTARAN, RADHA Attending Unavailable MINDZORA, MIGUEL Referring Unavailable SMOLEN, KOBI Referring Unavailable SMOLEN, KOBI Attending Unavailable DUDZIAK, LEONEL Referring Unavailable DUDZIAK, LEONEL Referring Unavailable JOSEPH, MICHEL Attending Unavailable ATTARAN, RADHA Attending Unavailable MINDZORA, MIGUEL Referring Unavailable JOSEPH, MICHEL Attending Unavailable MINDZORA, MIGUEL Referring Unavailable JOSEPH, MICHEL Referring Unavailable SMOLEN, KOBI Referring Unavailable REHMER, ARLEY Attending Unavailable MINDZORA, MIGUEL Referring Unavailable JOSEPH, MICHEL Attending Unavailable PROBLEMS DATE TYPE CONDITION / CODE ATTENDING [facility]2025 Active with inconclusive viability, single or unspecified fetus (HCC) / O36.80X0(ICD-10) NA Active [facility] 12/30/2024 Active Encounter for pr egnancy test, result positive (HCC) / Z32.01(ICD-10) NA Active [facility] 11/22/2024 Unknown Cyst / FREETEXT(AOF) Cale ELLIS Active [facility] 11/08/2024 Unknown 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) NA Active [facility] 11/08/2024 Unknown Encounter for ge neral adult medical examination without abnormal findings / Z00.00(ICD-10) DAVID GIMENEZ Active [facility] 11/08/2024 Unknown Epidermal cyst / L72.0(ICD-10) DAVID GIMENEZ Active [facility] 11/08/2024 Unknown Annual Exam / FREETEXT(AOF) DEFDAVID VICENTE [facility] 10/07/2024 Unknown Polycystic ovari an syndrome / E28.2(ICD-10) DAVID GIMENEZ [facility] 10/07/2024 Unknown Low back pain, unspecified / M54.50(ICD-10) DAVID GIMENEZ Active [facility] 10/07/2024 Unknown Back Pain / FREETEXT(AOF) DEFDAVID VICENTE [facility] 09/12/2024 Active Female infertili ty / N97.9(ICD-10) NA Active [facility] 07/06/2024 Unknown Other acute sinu sitis / J01.80(ICD-10) AMMYDAVID [facility] 07/06/2024 Unknown Cough / FREETEXT(AOF) DEFDAVID VICENTE [facility] 07/06/2024 Unknown Headache / FREETEXT(AOF) DEFCINTHIA DOMINICK Reyes Les [facility] 07/06/2024 Unknown Sore Throat / FREETEXT(AOF) DAVID GIMENEZ [facility] [place] [place] 05/27/2024 Active Primary female infertility / N97.9(ICD-10) NA Active [facility] 04/29/2024 Active Pre-procedure la b exam / Z01.812(ICD-10) MIGUEL LEVY Active [facility] 04/29/2024 Active Fertility testin g / Z31.41(ICD-10) MIGUEL LEVY Active [facility] 04/15/2024 Active Irregular menses / N92.6(ICD-10) NA Active [facility] 04/15/2024 Active Encounter for fe rtility testing / Z31.41(ICD-10) NA Active [facility] 03/02/2024 Unknown Sleep Apnea / FREETEXT(AOF) VIOLETA VIDAL Active [facility] 02/05/2024 Unknown Encounter for fe rtility testing / Z31.41(ICD-10) NA Active [facility] PROCEDURES No Procedure Records Found RESULTS L Observed: 01/24/2025 8:04 AM Status: F Source: [facility] ----- ------- Specimen: [id number] Received: 01/24/25 Status: JULIOCESAR Shea Num: [id number] Spec Type: Surgical Subm Dr: Conor Cortes Tissues: A Products of Conception - Spontaneous or Missed (PRODUCTS OF CONCEPT Procedures: HE/Kylie Marrero/Cinthya L4 ----- ------- Age/ Patient Sex Location Account Attending Physician ----- ------- Tin Arizmendi 39/F [facility] [id number] Conor Cortes ----- ------- SPEC NUM: [id number] RECD: 01/24/25 STATUS: JULIOCESAR WEAVERAnnabel NUM: [id number] ISSAC: 01/24/[address]: Conor Cortes ENTERED: 01/24/[address] [facility] [address]: Gudelia,Lab SPEC TYPE: Surgical DEPT: DOUG FERNÁNDEZ ENTERED BY: [id number] RECV BY: [id number] ORDERED: HE/2, Gross/Micro L4 ORDERED: HE/2, Gross/Micro [...] with chorionic villi. No tissue is identified. Plant Superintendent sections of the chorionic villi are submitted in A1 with cash applications representative sections of the decidua submitted in A2. (2, , [id number] A)JENY ----- ------- Specimen: [id number] Received: 01/24/25 Status: CURLYLes Valdivia Num: [id number] Spec Type: Surgical Subm : Conor Cortes Tissues: A Products of Conception - Spontaneous or Missed (PRODUCTS OF CONCEPT Procedures: HE/2, Gross/Micro L4 ----- ------- Patient: Tin Arizmendi [id number] (Continued) ----- ------- Specimen: [id number] Received: 01/24/25 (Continued) Signed (signature on file) Keagan Ferguson MD 01/25/25 0940 ----- ------- Specimen: [id number] Received: 01/24/25 Status: JULIOCESAR Valdivia Num: [id number] Spec Type: Surgical Subm Dr: Conor Cortes Tissues: A Products of Conception - Spontaneous or Missed (PRODUCTS OF CONCEPT Procedures: HE/2, Gross/Micro L4 ----- ------- Patient: Tin Arizmendi [id number] (Continued) ----- ------- Specimen: [id number] Received: 01/24/25 (Continued) Microscopic Description Microscopic examination is performed CPT Codes 26171 ----- ------- ----- ------- Specimen: [id number] Received: 01/24/25 Status: JULIOCESAR Valdivia Num: [id number] Spec Type: Surgical Subm Dr: Conor Cortes Tissues: A Products of Conception - Spontaneous or Missed (PRODUCTS OF CONCEPT Procedures: HE/2 Gross/Micro L4 ----- ------- Patient: Tin Arizmendi [id number] (Continued) ----- ------- Signed (signature on file) Keagan Ferguson MD 01/25/25 0940 PROGRESS Observed: 01/09/2025 3:43 PM Status: COMPLETED Source: [facility] HNO ID: [id number] Author: MIGUEL LEVY APRN.[address] LIAISON Service: ? Author Type: Nurse Practitioner Type: Progress Notes Filed: 01/09/2025 16:05 Note Text: Spoke with Tin, Reviewed diagnosis of missed from today's ultrasound. Discussed options for medical, surgical or expectant management. Leaning towards medical management but wants to further review with her prior to making final decisions. Is meeting with her [employer] tomorrow, may follow up with care from that office as well. Will call back and let us know how she wishes to proceed. Miguel Levy APRN.[address] LIAISON January 09, 2025 4:05 PM B-HCG SERPL-ACNC Collected: 11:19 AM Status: F [facility] Order Comment: Specimen Type : BLOOD SPECIMEN Ordering Facility: [facility] Address: [address] [place] [address] TYPE CODE TESTS RESULT OUT OF RANGE REFERENCE UNITS [facility] 03708[facility] B-HCG SerPl-aCnc 96539.0 High <5.0 mIU/mL Result Comment: QUANTITATIVE HCG NORMAL RANGES Weeks of Gestation (Weeks Since LMP) 3 Weeks (5.8-71.2 mIU/mL) 4 Weeks (9.5-750 mIU/mL) 5 Weeks (217-7138 mIU/mL) 6 Weeks (158-28466 mIU/mL) 7 Weeks (3697-289154 mIU/mL) 8 Weeks (15360-916221 mIU/mL) 9 Weeks (29807-055529 mIU/mL) 10 Weeks (34704-579006 mIU/mL) 12 Weeks (56763-948944 mIU/mL) Referenced to 4th IS of [facility] Performed By: #### 16510-1 # ### [facility] CLIA [id number] [address] [facility] [place] [address] [place] CNNURSE Observed: 01/09/2025 10:40 AM Status: COMPLETED Source: [facility] Nurse Visit (REIAV) TIN ARIZMENDI ([id number]) 1985 F Date Time Provider Department 01/09/25 10:40 AM US TECH 1 [facility] REJ DEVINV During your visit today, we recorded the following information about you: Miguel Levy APRN.CNP 01/09/2025 4:05 PM Signed Spoke with Tin, Reviewed diagnosis of missed from today's ultrasound. Discussed options for medical, surgical or expectant management. Leaning towards medical management but wants to further review with her prior to making final decisions. Is meeting with her [employer] tomorrow, may follow up with care from that office as well. Will call back and let us know how she wishes to proceed. Miguel Levy APRN.[address] LIAISON January 09, 2025 4:05 PM Referring Provider: MICHEL JOSEPH [[id number]] Allergies As of Date: 01/09/2025 Noted Allergy Reaction AMOXACILLIN (AMOXICILLIN) 03/09/2023 4 - Hives Comments: Skin test is negative. Challenge pending PENICILLINS 10/15/2020 4 - Hives Date Reviewed: 11/25/2024 Reviewed by: Nilton Zhang, LAUREN - Fully Assessed Visit Diagnosis:Encounter for test, result positive (HCC) [Z32.01] Order(s):OBSTETRIC ULTRASOUND [facility] [[id number]] Order #: [id number]. #:[id number]: [id number] Prescriptions as of 01/09/2025 - progesterone [...] ( ORAL) Take by mouth. - Follitropin Keyon (GONAL-F RFF REDI-JECT) 300/0.5 unit/mL pnij Inject 75 Units subcutaneously once daily. Problem List As Of Date 01/09/2025 Noted Resolved High blood pressure [I10] 10/16/2021 Diagnosed: 10/30/2023 Pre-op exam [Z01.818] 10/30/2023 Class 3 severe obesity due to excess calories w*10/30/2023 Missed [O02.1] 10/30/2023 Encounter Status:Closed by MIGUEL LEVY on 01/09/25 PROGRESS Observed: 12/30/2024 5:36 PM Status: COMPLETED Source: [facility] HNO ID: [id number] Author: SHYLA ORR APRN.[address] LIAISON Service: ? Author Type: Nurse Practitioner Type: Progress Notes Filed: 12/30/2024 17:37 Note Text: spoke with Tin Please schedule the patient for the following- Location: [place] Provider: nurse Visit type: scan Reason for visit/appointment notes: scan Date: 01/09 Time (requested): 1040 If slot is full, please schedule the closest open slot. Call to patient needed: no PROGRESS Observed: 12/30/2024 1:28 PM Status: COMPLETED Source: [facility] HNO ID: [id number] Author: MICHEL JOSEPH MD Service: ? Author [...] Joseph MD December 30, 2024 1:32 PM CNNURSE Observed: 12/30/2024 10:10 AM Status: COMPLETED Source: [facility] Nurse Visit (REIBD) TIN ARIZMENDI ([id number]) 1985 F Date Time Provider Department 12/30/24 10:10 AM PPI 3 [facility] BEAC REIBD During your visit today, we [...] December 30, 2024 1:32 PM Shyla Orr APRN.[address] LIAISON 12/30/2024 5:37 PM Signed spoke with Tin Please schedule the patient for the following- Location: [place] Provider: nurse Visit type: scan Reason for visit/appointment notes: scan Date: 01/09 Time (requested): 1040 If slot is full, please schedule the closest open slot. Call to patient needed: no Referring Provider: KOBI WEINER [[id number]] Allergies As of Date: 12/30/2024 Noted Allergy Reaction AMOXACILLIN (AMOXICILLIN) 03/09/2023 4 - Hives Comments: Skin test is negative. Challenge pending PENICILLINS 10/15/2020 4 - Hives Date Reviewed: 11/25/2024 Reviewed by: Nilton Zhang RN - Fully Assessed Visit Diagnosis:Encounter for test, result positive (HCC) [Z32.01] Order(s):OBSTETRIC ULTRASOUND [facility] [[id number]] Order #: [id number]. #:[id number]: 1 OBSTETRIC ULTRASOUND I [] Order #: [id number]: 1 FUTURE Prescriptions as of 12/30/2024 - [...] ( ORAL) Take by mouth. - Follitropin Keyon (GONAL-F RFF REDI-JECT) 300/0.5 unit/mL pnij Inject 75 Units subcutaneously once daily. Problem List As Of Date 12/30/2024 Noted Resolved High blood pressure [I10] 10/16/2021 Diagnosed: 10/30/2023 Pre-op exam [Z01.818] 10/30/2023 Class 3 severe obesity due to excess calories w*10/30/2023 Missed [O02.1] 10/30/2023 Encounter Status:Closed by MICHEL JOSEPH on 12/30/24 PROGRESS Observed: 12/16/2024 2:00 PM Status: COMPLETED Source: [facility] ID: [id number] Author: KOBI WEINER PA-C Service: ? Author Type: Physician Direct Support Staff Member Type: Progress Notes Filed: 12/16/2024 14:20 Note Text: [facility] New SERVICE DATE: 12/16/2024 SERVICE TIME: 2:00 PM NAME: Tin Arizmendi VIRTUAL VISIT PROGRESS NOTE This is a virtual visit. It required patient-provider interaction for the medical decision making as documented below. Patient name and birthday verified: Yes Location of patient: [place] Persons Present: patient I have communicated my name and active licensure. The patient's identity and physical location were verified at the time of this visit. Either the patient or their legal cash applications representative has been informed of the risks [...] grammatical and typographical errors missed in proofreading. B-HCG SERPL-ACNC Collected: 5 8:21 AM Status: F Source: [facility] Comment: Specimen Type : BLOOD SPECIMEN Ordering Facility: [facility] Address: [address] [place] [address] TYPE CODE TESTS RESULT OUT OF RANGE REFERENCE UNITS LAB 30026-0(LOINC) B-HCG SerPl-aCnc 252.5 High <5.0 mIU/mL Result Comment: QUANTITATIVE HCG NORMAL RANGES Weeks of Gestation (Weeks Since LMP) 3 Weeks (5.8-71.2 mIU/mL) 4 Weeks (9.5-750 mIU/mL) 5 Weeks (217-7138 mIU/mL) 6 Weeks (158-70814 mIU/mL) 7 Weeks (3697-398027 mIU/mL) 8 Weeks (35596-561376 mIU/mL) 9 Weeks (24324-254796 mIU/mL) 10 Weeks (85156-996758 mIU/mL) 12 Weeks (65725-563343 mIU/mL) Referenced to 4th IS of NIBSC Performed By: #### 65205-2 # ### [facility] CLIA [id number] [address] [place] [address] [place] [facility] B-HCG SERPL-ACNC Collected: 5 5:05 PM Status: F Source: [facility] Order Comment: Specimen Type : BLOOD SPECIMEN Ordering Facility: [facility] Address: [address] [place] [address] TYPE CODE TESTS RESULT OUT OF RANGE REFERENCE UNITS LAB 25745-6(LOINC) B-HCG SerPl-aCnc 164.2 High <5.0 mIU/mL Result Comment: QUANTITATIVE HCG NORMAL RANGES Weeks of Gestation (Weeks Since LMP) 3 Weeks (5.8-71.2 mIU/mL) 4 Weeks (9.5-750 mIU/mL) 5 Weeks (217-7138 mIU/mL) 6 Weeks (158-59352 mIU/mL) 7 Weeks (3697-733161 mIU/mL) 8 Weeks (53648-968222 mIU/mL) 9 Weeks (34826-690865 mIU/mL) 10 Weeks (70059-586768 mIU/mL) 12 Weeks (16876-055063 mIU/mL) Referenced to 4th IS of NIBSC Performed By: #### 26957-0 # ### [facility] CLIA [id number] [address] [place], [place] [address] [place] Observed: 12/09/2024 12:00 AM Status: COMPLETED Source: [facility] Telephone (REIBD) TIN ARIZMENDI ([id number]) 1985 F Date Time Provider Department 12/09/24 [...] Date Reviewed: 11/25/2024 Reviewed by: Nilton Zhang, ALUREN - Fully Assessed Reason for Visit: +hpt [...] mouth two times a day. - Follitropin Keyon (GONAL-F RFF REDI-JECT) 300/0.5 unit/mL pnij Inject [...] w*10/30/2023 Missed [O02.1] 10/30/2023 Encounter Status:Closed by PAU DORMAN on 12/12/24 [place] Observed: 12/09/2024 12:00 AM Status: COMPLETED Source: [facility] Telephone (REIBD) TIN ARIZMENDI ([id number]) 1985 F Date Time Provider Department 12/09/24 MICHEL JOSEPH During your visit today, we recorded the following information about you: Rukhsana Dennis 12/09/2024 8:06 AM Signed Please follow up with patient she would like to get bloodwork done. Pau Dorman, LAUREN 12/12/2024 9:40 AM Signed Patient with positive [...] by mouth two times a day. Follitropin Keyon (GONAL-F RFF REDI-JECT) 300/0.5 unit/mL pnij Inject [...] positive [Z32.01] Order(s):HCG QUANTITATIVE [SQHCGQT] Order #: [id number] STANDING Prescriptions as of 12/12/2024 - progesterone [...] mouth two times a day. - Follitropin Keyon (GONAL-F RFF REDI-JECT) 300/0.5 unit/mL pnij Inject 75 Units subcutaneously once daily. - metFORMIN (GLUCOPHAGE) 850 mg tablet Take 1 tablet by mouth twice daily with meals. Problem List As Of Date 12/09/2024 Noted Resolved High blood pressure [I10] 10/16/2021 Diagnosed: 10/30/2023 Pre-op exam [Z01.818] 10/30/2023 Class 3 severe obesity due to excess calories w*10/30/2023 Missed [O02.1] 10/30/2023 Medications Discontinued During This Encounter Prescriptions - bupropion HCl (BUPROBAN ORAL) (Discontinued) Take 150 mg by mouth once daily. - dexAMETHasone (DECADRON) 0.5 mg tablet (Discontinued) Take 1 tablet by mouth once daily. - metFORMIN (GLUCOPHAGE) 850 mg tablet (Discontinued) Take 1 tablet by mouth two times a day. - spironolactone (ALDACTONE) 25 mg tablet (Discontinued) Take 25 mg by mouth once daily. On hold for Encounter Status:Closed by KOBI WEINER on 12/12/24 PROGRESS Observed: 11/25/2024 1:16 PM Status: COMPLETED Source: [facility] HNO ID: [id number] Author: NILTON ZHANG RN Service: ? Author Type: Registered Nurse Type: Progress Notes Filed: 11/25/2024 13:18 Note Text: RN called patient,no answer, left VM. Plan given for trigger and TI cycle per physician,via [employer] message sent with instructions. Nilton Zhang RN November 25, 2024 1:16 PM PROGRESS Observed: 11/25/2024 9:25 AM Status: COMPLETED Source: [facility] HNO ID: [id number] Author: NILTON ZHANG RN Service: ? Author [...] Zhang RN November 25, 2024 9:25 AM ESTRADIOL SERPL-MCNC Collected: 11/25/2024 6:47 AM S tatus: F [facility] Order Comment: Specimen Type : BLOOD SPECIMEN Ordering Facility: [facility] Address: [address] [place] [address] TYPE CODE TESTS RESULT OUT OF RANGE REFERENCE UNITS LAB 2243-4(LOINC) Estradiol SerPl-mCnc 283 High 8-37 pg/mL Result Comment: This test is not suitable [...] 3243 pg/mL Second trimester : 1561 to 64056 pg/mL Third trimester : 8285 to >07945 pg/mL Post-menopausal Estradiol reference range: < 41 pg/mL Reference: 1. Estradiol - E2 (Estradiol III) [package insert V 3.0 Moz[place]ican]. [facility], [place], [place], February 2016. Performed By: #### 2243-4 ## ## [facility] CLIA [id number] [address] [facility] [place] [address] [facility] [place] CNPN Observed: 11/25/2024 12:00 AM Status: COMPLETED Source: [facility] Telephone (REIBD) TIN ARIZMENDI ([id number]) 1985 F Date Time Provider Department 11/25/24 SELF REIBD During your visit today, we recorded the following information about you: kristianAna 11/25/2024 2:25 PM Signed Pt has a [...] mouth two times a day. - Follitropin Keyon (GONAL-F RFF REDI-JECT) 300/0.5 unit/mL pnij Inject [...] Encounter Status:Closed by NAM ARIAS on 11/25/24 PROGRESS Observed: 11/24/2024 11:33 AM Status: COMPLETED Source: [facility] ID: [id number] Author: TIFFANY GONZALEZ MD Service: ? Author Type: Physician Type: Progress Notes Filed: 11/24/2024 11:34 Note Text: LOUISA Attending Physician Note: Ultrasound and lab results reviewed. Based on review of ultrasound and lab results, medication dose and follow up date plans provided. See cycle flowsheet for dosing details. Tiffany Gonzalez MD, CROW PROGRESS Observed: 11/24/2024 7:46 AM Status: COMPLETED Source: [facility] HNO ID: [id number] Author: MARY ANN KIRKLAND RN Service: ? [...] cycle per physician, see flowsheet for details. [employer] message sent. Medications reviewed and verified, instructions given. Patient denies any questions or concerns. Message sent to scheduling pool for next appt. Location: [place] Visit type: Baseline SO us/e2 Date: 11/25 @ 0700 LAUREN Haque RN November 24, 2024 12:39 PM ESTRADIOL SERPL-MCNC Collected: 11/24/2024 7:09 AM S tatus: F [facility] Order Comment: Specimen Type : BLOOD SPECIMEN Ordering Facility: [facility] Address: [address] [place] [address] TYPE CODE TESTS RESULT OUT OF RANGE REFERENCE UNITS LAB 2243-4(LOINC) Estradiol SerPl-mCnc 225 High 8-37 pg/mL Result Comment: This test is not suitable [...] 3243 pg/mL Second trimester : 1561 to 67441 pg/mL Third trimester : 8285 to >03204 pg/mL Post-menopausal Estradiol reference range: < 41 pg/mL Reference: 1. Estradiol - E2 (Estradiol III) [package insert V 3.0 Mozambican]. [facility], [place], [place], February 2016. Performed By: #### 2243-4 ## ## [facility] CLIA [id number] [address] [facility] [place] [address] [facility] SURGICAL PATHOLOGY Collected: 9:11 PM Status: COMPLETED Source: [facility] TYPE CODE TESTS RESULT OUT OF RANGE REFERENCE UNITS LAB J28-16087&rpt Surgical Pathology Result Comment: [facility] [address] [place] [address] Surgical Pathology Consultation Patient Name:TIN ARIZMENDI:1985 (Age: 39)Gender:FTaken:11/22/2024Reported:11/29/2024Physician(s):Millie Ellis MD ([phone])Copy To: Rec. #:[id number]: #[id number] Final Pathologic Diagnosis Skin and soft tissue, abdomen, excisional biopsy: Benign epidermal/epidermoid inclusion cyst (one), ruptured, with marked acute inflammation, mild chronic inflammation and granulation tissue, abdomen. Report Electronically Signed [facility]/11/29/2024IRLETTY SANCHEZ MD Interpretation performed at [facility], [address] [place] [address], License number: [id number]. Clinical History Inclusion cyst L72.0. Gross Description Received in formalin labeled KRUMNOW, abdominal cyst is a pale-butt wrinkled ellipse of skin, 2.3 x 1.1 x 0.1 cm. No lesion or area of discoloration is definitively identified. The resection margin is inked green. The specimen is serially sectioned to reveal a cystic structure filled with friable vegetative material. Two cash applications representative cross sections are submitted in a single cassette. (1, ns, [id number],m8.1) DM. dm/11/23/2024NSK Specimen(s) Received Left abdomen Fee Codes(s): 1; 01577 PROGRESS Observed: 11/21/2024 10:51 AM Status: COMPLETED Source: [facility] HNO ID: [id number] Author: MARY ANN KIRKLAND RN Service: ? [...] hasn't tried that yet. Message sent to [facility]. Mary Ann Kirkland RN RN called patient, name and verified. Plan given for SO cycle per physician, see flowsheet for details. MyChart message sent. Medications reviewed and verified, instructions given. Patient denies any questions or concerns. Message sent to scheduling pool for next appt. Location: [place] Visit type: Monitoring, SO us/e2 Date: 11/24 @ 0740 am Mary Ann Kirkland RN November 21, 2024 2:24 PM ESTRADIOL SERPL-MCNC Collected: 11/21/2024 7:52 AM S tatus: F [facility] Order Comment: Specimen Type : BLOOD SPECIMEN Ordering Facility: [facility] Address: [address] [place] [address] TYPE CODE TESTS RESULT OUT OF RANGE REFERENCE UNITS LAB 2243-4(LOINC) Estradiol SerPl-mCnc 69 High 8-37 pg/mL Result Comment: This test is not suitable [...] 3243 pg/mL Second trimester : 1561 to 20137 pg/mL Third trimester : 8285 to >12376 pg/mL Post-menopausal Estradiol reference range: < 41 pg/mL Reference: 1. Estradiol - E2 (Estradiol III) [package insert V 3.0 Moz[place]ican]. [facility], [place], [place], February 2016. Performed By: #### 2243-4 ## ## [facility] CLIA [id number] [address] [facility] [place] [address] [facility] PROGRESS Observed: 11/14/2024 1:50 PM Status: COMPLETED Source: [facility] HNO ID: [id number] Author: MARY ANN KIRKLAND RN Service: ? Author Type: Registered Nurse Type: Progress Notes Filed: 11/14/2024 14:01 Note Text: Tin Arizmendi was here today for a baseline scan. Location: [place] Visit type: monitoring OI, us/e2 Date: 11/21 [...] cycle per physician, see flowsheet for details. Howcasthart message sent. Medications reviewed and verified, instructions given. Patient denies any questions or concerns. Message sent to scheduling pool for next appt. Mary Ann Kirkland RN November 14, 2024 2:00 PM ESTRADIOL SERPL-MCNC Collected: 11/14/2024 7:08 AM S tatus: F [facility] Order Comment: Specimen Type : BLOOD SPECIMEN Ordering Facility: [facility] Address: [address] [place] [address] TYPE CODE TESTS RESULT OUT OF RANGE REFERENCE UNITS LAB 2243-4(LOINC) Estradiol SerPl-mCnc 39 High 8-37 pg/mL Result Comment: This test is not suitable [...] 3243 pg/mL Second trimester : 1561 to 84253 pg/mL Third trimester : 8285 to >03698 pg/mL Post-menopausal Estradiol reference range: < 41 pg/mL Reference: 1. Estradiol - E2 (Estradiol III) [package insert V 3.0 [place]ican]. [facility], [place], [place], February 2016. Performed By: #### 2243-4 ## ## [facility] CLIA [id number] [address] [facility] [place] [address] [facility] CNPN Observed: 11/14/2024 12:00 AM Status: COMPLETED Source: [facility] Telephone (REIBD) TIN ARIZMENDI ([id number]) 1985 F Date Time Provider Department 11/14/24 MICHEL JOSEPH During your visit today, we recorded the following information about you: Eusebia Sotomayorra 11/14/2024 2:55 PM Signed Pt states her letrozole needs a pa and needs the medication by today Mary Ann Kirkland RN 11/15/2024 3:06 PM Addendum Automatic PA started when medication ordered. PA closed: : Drug is covered by current benefit plan. No further PA activity needed Pt called stating she needs a PA. [email or web address] to discuss the PA message I received. Still showing on [facility]'s end that a PA is needed. Started cover my meds. Ayala: [id number] Drug is covered by current benefit plan. [...] Plan continues as given yesterday. Mary Ann Kirkland, RN November 15, 2024 3:06 PM Allergies As of Date: 11/14/2024 Noted Allergy Reaction AMOXACILLIN (AMOXICILLIN) 03/09/2023 4 - Hives Comments: Skin test is negative. Challenge pending PENICILLINS 10/15/2020 4 - Hives Date Reviewed: 11/14/2024 Reviewed by: Leonel Cabezas APRN.[facility] - Fully Assessed Reason for Visit: needs [...] mouth two times a day. - Follitropin Keyon (GONAL-F RFF REDI-JECT) 300/0.5 unit/mL pnij Inject [...] Status:Closed by MARY ANN KIRKLAND on 11/15/24 ADELEN Observed: 11/11/2024 12:00 AM Status: COMPLETED Source: [facility] Telephone (REIBD) TIN ARIZMENDI ([id number]) 1985 F Date Time Provider Department 11/11/24 MICHEL JOSEPH During your visit today, we recorded the following information about you: Miguel Barbour 11/11/2024 8:06 AM Signed Super ov Patient started period- calling to schedule baseline Nilton Zhang RN 11/11/2024 8:37 AM Signed Returned call to patient. Scheduled for baseline for 11/14/24 @ 0740 at [place]. Pt. States she needs refill on letrozole and trigger shot. Medication orders pended. Nilton Zhang RN November 11, 2024 8:32 AM Leonel Cabezas APRN.[facility] 11/14/2024 7:28 AM Signed The following approved [...] mouth once daily. Authorizing Provider: LEONEL CABEZAS APRN.[facility] Allergies As of Date: 11/11/2024 Noted Allergy Reaction AMOXACILLIN (AMOXICILLIN) 03/09/2023 4 - Hives Comments: Skin test is negative. Challenge pending PENICILLINS 10/15/2020 4 - Hives Date Reviewed: 10/19/2024 Reviewed by: Nam Arias RN - Fully Assessed Reason for Visit: Appointment [186] Primary Visit Diagnosis:Encounter for fertility testing [Z31.41] Other Visit Diagnosis:Female infertility [N97.9] Order(s):ESTRADIOL-17B BLD [SQE2] Order #: [id number] STANDING FOLLICULAR US WHI [[id number]] Order #: [id number]: 1 STANDING chorionic gonadotropin (PREGNYL) 10,000 unit [...] mouth two times a day. - Follitropin Keyon (GONAL-F RFF REDI-JECT) 300/0.5 unit/mL pnij Inject [...] Encounter Status:Closed by LEONEL CABEZAS on 11/14/24 HGB A1C (GLYCO-HGB) Collected: 11/08/2024 8:34 AM Status: COMPLETED Source: [facility] TYPE CODE TESTS RESULT OUT OF RANGE REFERENCE UNITS LAB HBA1C(LOINC) HEMOGLOBIN A1C 5.6 4.4-5.6 % Result Comment: NOTE ADA Guidelines Result HgbA1c Normal : less than 5.7 % Prediabetes : 5.7 % to 6.4 % Diabetes : > 6.4 % Use with caution in patients with abnormal hemoglobin variants as the half-life of red blood cells and in vivo glycation rates are affected. LAB EAG(LOINC) AVERAGE GLUCOSE 114 mg/dL Performed By: #### HA1C #### [facility] ([id number]) [address] [facility], [address] [place] [address] CBC AND AUTO DIFF Collected: 11/08/2024 8:32 AM Status: COMPLETED Source: [facility] TYPE CODE TESTS RESULT OUT OF RANGE REFERENCE UNITS LAB WBC(LOINC) WBC COUNT 8.5 4.0-11.0 X10E9/L LAB RBC(LOINC) RBC COUNT 4.34 3.80-5.20 X10E12/L LAB HGB(LOINC) HEMOGLOBIN 13.2 11.7-15.5 g/dL LAB HCT(LOINC) HEMATOCRIT 38.7 35-47 % LAB MCV(LOINC) MCV 89 80-100 fL LAB MCH(LOINC) MCH 30.4 27-34 pg LAB MCHC(LOINC) MCHC 34.1 32-36 g/dL LAB RDW(LOINC) RDW 14.3 11.5-15.0 % LAB PLTC(LOINC) PLATELET COUNT 338 150-450 X10E9 /L LAB MPV(LOINC) MPV 7.8 7-12 fL LAB NEUT(LOINC) % NEUTROPHILS 57.0 % LAB LYMP(LOINC) % LYMPHOCYTES 33.6 % LAB MONO(LOINC) % MONOCYTES 6.2 % LAB EOS(LOINC) % EOSINOPHILS 2.6 % LAB BASO(LOINC) % BASOPHILS 0.6 % LAB ANEUT(LOINC) ABSOLUTE NEUTROPHIL 4.8 1.5-6.6 X10E9/L LAB ALYMP(LOINC) ABSOLUTE LYMPHOCYTE 2.8 1.0-3.5 X10E9/L LAB AMONO(LOINC) ABSOLUTE MONOCYTE 0.5 0-0.9 X10E9/L LAB AEOS(LOINC) ABSOLUTE EOSINOPHIL 0.2 0.0-0.4 X10E9/L LAB ABASO(LOINC) ABSOLUTE BASOPHIL 0.1 0.0-0.2 X10E9/L Performed By: #### AMA, 243 -, REED, CMP #### [facility] ([id number]) [address] [place] [address] COMPREHENSIVE METABOLIC PANEL Collected: 2024 8:32 AM Status: COMPLETED Source: [facility] TYPE CODE TESTS RESULT OUT OF RANGE REFERENCE UNITS LAB NA(LOINC) SODIUM 140 134-146 mmol/L LAB K(LOINC) POTASSIUM 3.5 3.5-5.0 mmol/L LAB CL(LOINC) CHLORIDE 106 98-109 mmol/L LAB CO2(LOINC) CARBON DIOXIDE 25 22-32 mmol/L LAB AGAP(LOINC) ANION GAP 9 5-15 mmol/L LAB BUN(LOINC) BLOOD UREA NITROGEN 8 5-23 mg/dL LAB CRET(LOINC) CREATININE 0.83 0.40-1.00 mg/dL Result Comment: METHOD TRACE ABLE TO IDMS STANDARD LAB GLU(LOINC) GLUCOSE 94 65-99 mg/dL LAB CA(LOINC) CALCIUM 9.0 8.5-10.5 mg/dL LAB TP(LOINC) TOTAL PROTEIN 6.8 6.0-8.0 g/dL LAB ALB(LOINC) ALBUMIN 3.8 3.2-5.3 g/dL LAB ALK(LOINC) ALKALINE PHOSPHATASE 54 39-130 U/L LAB AST(LOINC) AST 32 0-41 U/L LAB ALT1(LOINC) ALT 32 High 0-31 U/L LAB TBIL(LOINC) BILIRUBIN,TOTAL 0.4 0.3-1.2 mg/d L LAB EGFR(LOINC) eGFR (CKD-EPI) NON-RACE DEPENDENT >90 >59 ml/min/1 .73sq.m Result Comment: Reported eGFR is based on the CKD-EPI 2020 equation that does not use a race coefficient. Performed By: #### AMA, 243 -, THYR, CMP #### [facility] ([id number]) [address] [place] [address], [address] [place] [address] THYROID PROFILE Collected: 11/08/2024 8:32 AM Status: COMPLETED Source: [facility] TYPE CODE TESTS RESULT OUT OF RANGE REFERENCE UNITS LAB TSH(LOINC) TSH 1.64 0.49-4.67 uIU/mL LAB FT4(LOINC) FREE T4 0.65 0.61-1.60 ng/dL Performed By: #### AMA, 243 31-, THYR, CMP #### [facility] ([id number]) [address] [place] [address], [address] [address] LIPID PROFILE Collected: 11/08/2024 8:32 AM Status: COMPLETED Source: [facility] TYPE CODE TESTS RESULT OUT OF RANGE REFERENCE UNITS LAB CHOL(LOINC) CHOLESTEROL 162 150-200 mg/dL LAB TRIG(LOINC) TRIGLYCERIDE 615 High 27-150 mg/dL LAB HDL(LOINC) HDL CHOLESTEROL 36 Low >39 mg/dL Result Comment: HDL <40 mg/dL - High Risk HDL > or = 40mg/dL- Desirable HDL >60 mg/dL - Negative Risk LAB VLDL(LOINC) VERY LOW LIPOPROTEIN 123 High 0-30 mg/dL LAB LDL(LOINC) LDL (CALC) RESULT BELOW DETECTABLE RANGE <130 mg/dL LAB CHDL(LOINC) CHOLESTEROL:HDL 4.5 1.0-5.0 Performed By: #### AMA, 243 31-, THYR, CMP #### [facility] ([id number]) [address] [place] [address], [address] [address] CNPN Observed: 11/08/2024 12:00 AM Status: COMPLETED Source: [facility] Telephone (REIAV) SEJALTIN ([id number]) 1985 F Date Time Provider Department 11/08/24 [...] mouth two times a day. - Follitropin Keyon (GONAL-F RFF REDI-JECT) 300/0.5 unit/mL pnij Inject [...] Encounter Status:Closed by MIGUEL LEVY on 11/08/24 PROGRESS Observed: 10/26/2024 1:19 PM Status: COMPLETED Source: [facility] ID: [id number] Author: MICHEL JOSEPH MD Service: ? Author [...] back to Dr Parikh. Michel Joseph MD PROGRESS Observed: 10/23/2024 8:32 AM Status: COMPLETED Source: [facility] HNO ID: [id number] Author: IVY GARDNER RN Service: ? Author [...] Gardner RN October 23, 2024 11:51 AM ESTRADIOL SERPL-MCNC Collected: 10/23/2024 8:30 AM S tatus: [place] Source: [facility] Order Comment: Specimen Type : BLOOD SPECIMEN Ordering Facility: [facility] Address: [address] [place] [address] TYPE CODE TESTS RESULT OUT OF RANGE REFERENCE UNITS LAB 2243-4(LOINC) Estradiol SerPl-mCnc 408 pg/mL Result Comment: This test is not suitable [...] 3243 pg/mL Second trimester : 1561 to 10038 pg/mL Third trimester : 8285 to >26945 pg/mL Post-menopausal Estradiol reference range: < 41 pg/mL Reference: 1. Estradiol - E2 (Estradiol III) [package insert V 3.0 Moz[place]ican]. [facility], [place], [place], February 2016. Performed By: #### 2243-4 ## ## [facility] CLIA [id number] [address] [place] [address] OF [facility]OM[facility] CNNURSE Observed: 10/23/2024 8:30 AM Status: COMPLETED Source: [facility] Nurse Visit (REIBD) TIN ARIZMENDI ([id number]) 1985 F Date Time Provider Department 10/23/24 8:30 AM NURSE LOUISA [facility] ERNESTINE REIBD During your visit today, we [...] Visit: Infertility [285] Visit Diagnosis:Female infertility [N97.9] Order(s):ESTRADIOL-17B BLD [SQE2] Order #: [id number]. #:[id number] Prescriptions as of 10/26/2024 - metFORMIN (GLUCOPHAGE) [...] mouth two times a day. - Follitropin Keyon (GONAL-F RFF REDI-JECT) 300/0.5 unit/mL pnij Inject [...] Encounter Status:Closed by IVY GARDNER on 10/23/24 PROGRESS Observed: 10/21/2024 8:54 AM Status: COMPLETED Source: [facility] HNO ID: [id number] Author: NAM ARIAS RN Service: ? Author [...] cycle per physician, see flowsheet for details. Howcasthart message sent. Medications reviewed and verified, instructions given. Patient denies any questions or concerns. Message sent to scheduling pool for next appt. Nam Arias RN October 21, 2024 12:55 PM ESTRADIOL SERPL-MCNC Collected: 10/21/2024 7:38 AM S tatus: F [facility] Order Comment: Specimen Type : BLOOD SPECIMEN Ordering Facility: [facility] Address: [address] [place] [address] TYPE CODE TESTS RESULT OUT OF RANGE REFERENCE UNITS LAB 2243-4([facility]) Estradiol SerPl-mCnc 175 High 8-37 pg/mL Result Comment: This test is not suitable [...] 3243 pg/mL Second trimester : 1561 to 11640 pg/mL Third trimester : 8285 to >79677 pg/mL Post-menopausal Estradiol reference range: < 41 pg/mL Reference: 1. Estradiol - E2 (Estradiol III) [package insert V 3.0 Moz[place]ican]. [facility], [place], [place], February 2016. Performed By: #### 2243-4 ## ## [facility] CLIA [id number] [address] [facility] [place] [address] [facility] PROGRESS Observed: 10/19/2024 7:45 AM Status: COMPLETED Source: [facility] HNO ID: [id number] Author: NAM ARIAS RN Service: ? Author [...] cycle per physician, see flowsheet for details. Howcasthart message sent. Medications reviewed and verified, instructions given. Patient denies any questions or concerns. Message sent to scheduling pool for next appt. Nam Arias RN October 19, 2024 1:27 PM ESTRADIOL SERPL-MCNC Collected: 10/19/2024 6:47 AM S tatus: F [facility] Order Comment: Specimen Type : BLOOD SPECIMEN Ordering Facility: [facility] Address: [address] [place] [address] TYPE CODE TESTS RESULT OUT OF RANGE REFERENCE UNITS LAB 2243-4(LOINC) Estradiol SerPl-mCnc 71 High 8-37 pg/mL Result Comment: This test is not suitable [...] 3243 pg/mL Second trimester : 1561 to 04408 pg/mL Third trimester : 8285 to >20050 pg/mL Post-menopausal Estradiol reference range: < 41 pg/mL Reference: 1. Estradiol - E2 (Estradiol III) [package insert V 3.0 [place]ican]. [facility], [place], [place], February 2016. Performed By: #### 2243-4 ## ## [facility] CLIA [id number] [facility] [place] [address] [facility] PROGRESS Observed: 10/12/2024 2:34 PM Status: COMPLETED Source: [facility] HNO ID: [id number] Author: MARY ANN KIRKLAND RN Service: ? [...] cycle per physician, see flowsheet for details. Howcasthart message sent. Medications reviewed and verified, instructions given. Patient denies any questions or concerns. Message sent to scheduling pool for next appt. Mary nAn Kirkland RN October 12, 2024 2:36 PM ESTRADIOL SERPL-MCNC Collected: 10/12/2024 7:08 AM S tatus: F [facility] Order Comment: Specimen Type : BLOOD SPECIMEN Ordering Facility: [facility] Address: [address] [place] [address] TYPE CODE TESTS RESULT OUT OF RANGE REFERENCE UNITS LAB 2243-4(LOINC) Estradiol SerPl-mCnc 47 High 8-37 pg/mL Result Comment: This test is not suitable [...] 3243 pg/mL Second trimester : 1561 to 76609 pg/mL Third trimester : 8285 to >08676 pg/mL Post-menopausal Estradiol reference range: < 41 pg/mL Reference: 1. Estradiol - E2 (Estradiol III) [package insert V 3.0 Moz[place]ican]. [facility], [place], [place], February 2016. Performed By: #### 2243-4 ## ## [facility] CLIA [id number] [facility] [place] [address] [facility] CNPN Observed: 10/10/2024 12:00 AM Status: COMPLETED Source: [facility] Telephone (REIBD) TIN ARIZMENDI ([id number]) 1985 F Date Time Provider Department 10/10/24 [...] protocol as the last cycle (SO#9) Location: [place] Visit type: Baseline, SO us/e2 Date: 10/12 @ 0720 Mary Ann Kirkland RN October 10, 2024 3:50 PM Allergies As of Date: 10/10/2024 Noted Allergy Reaction AMOXACILLIN (AMOXICILLIN) 03/09/2023 4 - Hives Comments: Skin test is negative. Challenge pending PENICILLINS 10/15/2020 4 - Hives Date Reviewed: 09/12/2024 Reviewed by: Nam Arias, LAUREN - Fully [...] mouth two times a day. - Follitropin Keyon (GONAL-F RFF REDI-JECT) 300/0.5 unit/mL pnij Inject [...] Status:Closed by MARY ANN KIRKLAND on 10/10/24 CONSULT PROG Observed: 09/21/2024 1:32 PM Status: COMPLETED Source: [facility] HNO ID: [id number] Author: MICHEL JOSEPH MD Service: ? Author Type: Physician Type: Consult Progress Note Filed: 09/21/2024 13:55 Note Text: [facility] Date: 09/21/2024 Tin Arizmendi [...] decide to avoid this cycle. Michel Joseph MDJanuary 2024 12:59 PM Obstetric History T0 L0 [...] by mouth two times a day. Follitropin Keyon (GONAL-F RFF REDI-JECT) 300/0.5 unit/mL pnij Inject [...] visit. Either the patient or their legal cash applications representative has been informed of the risks and benefits of -- and alternatives to -- treatment through a remote evaluation and consents to proceed with the evaluation remotely. I spent a total of 30 minutes on the date of the service which included preparing to see the patient, mhel-sc-hrug patient care, completing clinical documentation, counseling and educating the patient/family/caregiver, and ordering medications, tests, or procedures. Michel Joseph MD Observed: 09/21/2024 1:26 PM Status: COMPLETED Source: [facility] ID: [id number] Author: FRANCINE RAMIREZ MD Service: ? Author Type: Resident [...] partner had another semen analysis done at [facility] in 2016 in addition to another one here in 2022. She reports they were normal, however she is uncertain whether she has access to these records and she will try to obtain them. PROGRESS Observed: 09/20/2024 12:52 PM Status: COMPLETED [facility] [id number] Author: MICHEL JOSEPH MD Service: ? Author [...] and decide to avoid this cycle. Michel oJseph MD September 20, 2024 12:59 PM PROGRESS Observed: 09/20/2024 12:35 PM Status: COMPLETED Source: [facility] HNO ID: [id number] Author: ZHEN SEARS MD Service: ? Author [...] plan provided to patient via a Fertility produce service team member. María Elena Butt MD ESTRADIOL SERPL-MCNC Collected: 09/20/2024 7:52 AM S tatus: F [facility] Order Comment: Specimen Type : BLOOD SPECIMEN Ordering Facility: [facility] Address: [address] [id number] TYPE CODE TESTS RESULT OUT OF RANGE REFERENCE UNITS LAB 2243-4(LOINC) Estradiol SerPl-mCnc 481 High 8-37 pg/mL Result Comment: This test is not suitable [...] 3243 pg/mL Second trimester : 1561 to 28510 pg/mL Third trimester : 8285 to >80827 pg/mL Post-menopausal Estradiol reference range: < 41 pg/mL Reference: 1. Estradiol - E2 (Estradiol III) [package insert V 3.0 Moz[place]ican]. [facility], [place], [place], February 2016. Performed By: #### 2243-4 ## ## [facility] CLIA [id number] [address] [facility] [place], [place] [address] [place] [address] PROGRESS Observed: 09/20/2024 7:31 AM Status: COMPLETED Source: [facility] HNO ID: [id number] Author: MARY ANN KIRKLAND RN Service: ? [...] Kirkland RN September 20, 2024 3:16 PM PROGRESS Observed: 09/19/2024 7:37 AM Status: COMPLETED Source: [facility] HNO ID: [id number] Author: MARY ANN KIRKLAND RN Service: ? [...] Unable to reach patient by phone, sent [employer] message with instructions. Location: [place] Visit type: Monitoring, SO us/e2 Date: 09/20 @ 920am Mary Ann Kirkland RN September 19, 2024 2:21 PM ESTRADIOL SERPL-MCNC Collected: 09/19/2024 7:25 AM S tatus: F [facility] Order Comment: Specimen Type : BLOOD SPECIMEN Ordering Facility: [facility] Address: [address] [place] [address] TYPE CODE TESTS RESULT OUT OF RANGE REFERENCE UNITS LAB 2243-4(LOINC) Estradiol SerPl-mCnc 347 High 8-37 pg/mL Result Comment: This test is not suitable [...] 3243 pg/mL Second trimester : 1561 to 34728 pg/mL Third trimester : 8285 to >04166 pg/mL Post-menopausal Estradiol reference range: < 41 pg/mL Reference: 1. Estradiol - E2 (Estradiol III) [package insert V 3.0 [place]]. [facility], [place], [place], February 2016. Performed By: #### 2243-4 ## ## [facility] CLIA [id number] [address] [facility] [place] [address] [facility] PROGRESS Observed: 09/15/2024 7:08 AM Status: COMPLETED Source: [facility] HNO ID: [id number] Author: MARY ANN KIRKLAND RN Service: ? [...] cycle per physician, see flowsheet for details. Howcasthart message sent. Medications reviewed and verified, instructions given. Patient denies any questions or concerns. Message sent to scheduling pool for next appt. Mary Ann Kirkland RN September 15, 2024 2:09 PM ESTRADIOL SERPL-MCNC Collected: 09/15/2024 6:42 AM S tatus: F [facility] Order Comment: Specimen Type : BLOOD SPECIMEN Ordering Facility: [facility] Address: [address] [place] [address] TYPE CODE TESTS RESULT OUT OF RANGE REFERENCE UNITS LAB 2243-4(LOINC) Estradiol SerPl-mCnc 51 High 8-37 pg/mL Result Comment: This test is not suitable [...] 3243 pg/mL Second trimester : 1561 to 28719 pg/mL Third trimester : 8285 to >48797 pg/mL Post-menopausal Estradiol reference range: < 41 pg/mL Reference: 1. Estradiol - E2 (Estradiol III) [package insert V 3.0 [place]]. [facility], [place], [place], February 2016. Performed By: #### 2243-4 ## ## [facility] CLIA [id number] [facility] [place], [place] [address] [place] PROGRESS Observed: 09/12/2024 4:04 PM Status: COMPLETED Source: [facility] HNO ID: [id number] Author: MARY ANN KIRKLAND RN Service: ? [...] appt. Cancelled P4 and LH labs. Location: [place] Visit type: SO us/e2 Date: 09/15/24 @ 0700 Mary Ann Kirkland RN September 12, 2024 4:12 PM PROGRESS Observed: 09/12/2024 7:57 AM Status: COMPLETED Source: [facility] HNO ID: [id number] Author: NAM ARIAS RN Service: ? Author Type: Registered Nurse Type: Progress Notes Filed: 09/12/2024 16:13 Note Text: The patient is here today for follicular ultrasound and blood work. The patient reports no problems or complaints. Ultrasound and blood will be reviewed by the physician, the flow sheet will be updated and instructions will be communicated to the patient. Nam Arias RN ESTRADIOL SERPL-MCNC Collected: 09/12/2024 7:49 AM S tatus: F [facility] Order Comment: Specimen Type : BLOOD SPECIMEN Ordering Facility: [facility] Address: [address] [place] [address] TYPE CODE TESTS RESULT OUT OF RANGE REFERENCE UNITS LAB 2243-4(LOINC) Estradiol SerPl-mCnc <25 8-37 pg/mL Result Comment: This test is not suitable [...] 3243 pg/mL Second trimester : 1561 to 28068 pg/mL Third trimester : 8285 to >06465 pg/mL Post-menopausal Estradiol reference range: < 41 pg/mL Reference: 1. Estradiol - E2 (Estradiol III) [package insert V 3.0 Moz[place]ican]. [facility], [place], [place], February 2016. Performed By: #### 34515-1, 2243-4, 2839-9 #### [facility] CLIA [id number] [facility] [place], [place] [id number] [place] [address] [place] LH SERPL-ACNC Collected: 12/30/202 4 7:49 AM Status: F [facility] Order Comment: Specimen Type : BLOOD SPECIMEN Ordering Facility: [facility] Address: [address] [place], [place] [address] TYPE CODE TESTS RESULT OUT OF RANGE REFERENCE UNITS LAB 07835-7(LOINC) LH SerPl-aCnc 10.9 See comment mIU/mL Result Comment: Reference ra nge: Follicular: 2.4-12.6 mIU/mL Midcycle: 14.0-95.6 mIU/mL Luteal: 1.0-11.4 mIU/mL Post [place]: 7.7-58.5 mIU/mL Performed By: #### 97891-7, 2243-4, 2839-9 #### [facility] CLIA [id number] PROGEST SERPL-MCNC Collected: 7:49 AM Status: F [facility] Order Comment: Specimen Type : BLOOD SPECIMEN Ordering Facility: [facility] Address: [address] [place], [place] [address] TYPE CODE TESTS RESULT OUT OF RANGE REFERENCE UNITS LAB 2839-9(LOINC) Progest SerPl-mCnc 0.3 See comment ng/mL Result Comment: Menstrual Cy claudia Progesterone Reference Ranges: Follicular: <1.0 ng/mL Ovulation: <12.1 ng/mL Luteal: 1.8 to 23.9 ng/mL. Progesterone Reference Ranges vary by gestational period: First Trimester: 11.0 to 44.3 ng/mL Second Trimester: 25.4 to 83.3 ng/mL Third Trimester: 58.7 to 214 ng/mL Post menopausal Progesterone: <0.5 ng/mL Reference: 1. Progesterone (Progesterone III) [package insert V 1.0 [place]ican]. [facility], [place], [place]. June 2015. Performed By: #### 24146-9, 2243-4, 2839-9 #### [facility] CLIA [id number] [address] [place] [id number] [facility] [place] CNPN Observed: 09/08/2024 12:00 AM Status: COMPLETED Source: [facility] Telephone (REIBD) TIN ARIZMENDI ([id number]) 1985 F Date Time Provider Department 09/08/24 MICHEL JOSEPH During your visit today, we recorded the following information about you: Alecmargot oCughlin Yancy 09/09/2024 8:12 AM Signed OOT til Thursday Ivy Gardner RN 09/09/2024 9:07 AM Signed Pt calling to schedule baseline for SO cycle. Ok to start per . Baseline scheduled 09/12 at 7 [place]. Ivy Gardner RN September 09, 2024 9:03 [...] Diagnosis:Female infertility [N97.9] Order(s):PROGESTERONE [SQPROG] Order #: [id number] STANDING ESTRADIOL-17B BLD [SQE2] Order #: [id number] STANDING LUTEINIZING HORMONE [SQLH] Order #: [id number] STANDING FOLLICULAR US [facility] [[id number]] Order #: [id number]: 1 STANDING chorionic gonadotropin (PREGNYL) 10,000 unit [...] mouth two times a day. - Follitropin Keyon (GONAL-F RFF REDI-JECT) 300/0.5 unit/mL pnij Inject [...] Encounter Status:Closed by MICHEL JOSEPH on 09/09/24 PROGRESS Observed: 08/17/2024 8:28 AM Status: COMPLETED Source: [facility] HNO ID: [id number] Author: NAM ARIAS RN Service: ? Author [...] Arias RN August 17, 2024 1:57 PM ESTRADIOL SERPL-MCNC Collected: 08/17/2024 7:53 AM S tatus: F [facility] Order Comment: Specimen Type : BLOOD SPECIMEN Ordering Facility: [facility] Address: [address] [place] [address] TYPE CODE TESTS RESULT OUT OF RANGE REFERENCE UNITS LAB 2243-4([facility]) Estradiol SerPl-mCnc 131 High 8-37 pg/mL Result Comment: This test is not suitable [...] 3243 pg/mL Second trimester : 1561 to 46406 pg/mL Third trimester : 8285 to >47714 pg/mL Post-menopausal Estradiol reference range: < 41 pg/mL Reference: 1. Estradiol - E2 (Estradiol III) [package insert V 3.0 [place]ican]. [facility], [place], [place], February 2016. Performed By: #### 2243-4 ## ## [facility] CLIA [id number] [address] [facility] [place] [address] [place] CNNURSE Observed: 08/17/2024 7:30 AM Status: COMPLETED Source: [facility] Nurse Visit (KAREN) KILOTIN FERNANDES ([id number]) 1985 F Date Time Provider Department 08/17/24 7:30 AM RADHA FAULKNER During your visit today, we recorded the [...] 2024 1:57 PM Referring Provider: MIGUEL LEVY [[id number]] Allergies As of Date: 08/17/2024 Noted Allergy Reaction AMOXACILLIN (AMOXICILLIN) 03/09/2023 4 - Hives Comments: Skin test is negative. Challenge pending PENICILLINS 10/15/2020 4 - Hives Date Reviewed: 08/15/2024 Reviewed by: Nam Arias RN - Fully Assessed Reason for Visit: Infertility [285] Visit Diagnosis:Female infertility [N97.9] Order(s):FOLLICULAR US [facility] [[id number]] Order #: [id number]. #:[id number]: 1 Prescriptions as of 08/22/2024 - Follitropin [...] mouth two times a day. - Follitropin Keyon (GONAL-F RFF REDI-JECT) 300/0.5 unit/mL pnij Inject [...] Missed [O02.1] 10/30/2023 Encounter Status:Closed by RADHA FAULKNER on 08/22/24 PROGRESS Observed: 08/15/2024 7:05 AM Status: COMPLETED Source: [facility] ID: [id number] Author: NAM ARIAS RN Service: ? Author [...] Arias RN August 15, 2024 1:39 PM CNNURSE Observed: 08/15/2024 7:00 AM Status: COMPLETED Source: [facility] Nurse Visit (MEGIAV) TIN ARIZMENDI ([id number]) 1985 F Date Time Provider Department 08/15/24 7:00 AM ARLEY PARIKH During your visit [...] cycle per physician, see flowsheet for details. Howcasthart message sent. Medications reviewed and verified, instructions given. Patient denies any questions or concerns. Message sent to scheduling pool for next appt. Nam Arias RN August 15, 2024 1:39 PM Referring Provider: MIGUEL LEVY [[id number]] Allergies As of Date: 08/15/2024 Noted Allergy Reaction AMOXACILLIN (AMOXICILLIN) 03/09/2023 4 - Hives Comments: Skin test is negative. Challenge pending PENICILLINS 10/15/2020 4 - Hives Date Reviewed: 08/15/2024 Reviewed by: Nam Arias RN - Fully Assessed Reason for Visit: Infertility [285] Visit Diagnosis:Female infertility [N97.9] Order(s):FOLLICULAR US [facility] [[id number]] Order #: [id number]. #:[id number]: 1 Prescriptions as of 08/15/2024 - Follitropin [...] diacetate-ethinyl estradiol 1 mg-35 mcg (ZOVIA E, ,) 1-35 mg-mcg per tablet Start day [...] mouth two times a day. - Follitropin Keyon (GONAL-F RFF REDI-JECT) 300/0.5 unit/mL pnij Inject [...] Encounter Status:Closed by ARLEY PARIKH on 08/15/24 ESTRADIOL SERPL-MCNC Collected: 08/15/2024 6:58 AM S tatus: F [facility] Order Comment: Specimen Type : BLOOD SPECIMEN Ordering Facility: [facility] Address: [address] [place] [address] TYPE CODE TESTS RESULT OUT OF RANGE REFERENCE UNITS LAB 2243-4(INC) Estradiol SerPl-mCnc 83 High 8-37 pg/mL Result Comment: This test is not suitable [...] 3243 pg/mL Second trimester : 1561 to 63873 pg/mL Third trimester : 8285 to >74962 pg/mL Post-menopausal Estradiol reference range: < 41 pg/mL Reference: 1. Estradiol - E2 (Estradiol III) [package insert V 3.0 Moz[place]ican]. [facility], [place], [place], February 2016. Performed By: #### 2243-4 ## ## [facility] CLIA [id number] [facility] [place] [address] [facility] [place] PROGRESS Observed: 08/10/2024 1:19 PM Status: COMPLETED Source: [facility] HNO ID: [id number] Author: NILTON ZHANG RN Service: ? Author Type: Registered Nurse Type: Progress Notes Filed: 08/10/2024 13:19 Note Text: RN called patient, name and verified. Plan given for superov cycle per physician, see flowsheet for details. Howcasthart message sent. Medications reviewed and verified, instructions given. Patient denies any questions or concerns. Message sent to scheduling pool for next appt. Nilton Zhang RN August 10, 2024 1:19 PM PROGRESS Observed: 08/10/2024 8:02 AM Status: COMPLETED Source: [facility] HNO ID: [id number] Author: NILTON ZHANG RN Service: ? Author [...] Zhang RN August 10, 2024 8:02 AM CNNURSE Observed: 08/10/2024 7:30 AM Status: COMPLETED Source: [facility] Nurse Visit (MEGIAV) TIN ARIZMENDI ([id number]) 1985 F Date Time Provider Department 08/10/24 [...] 2024 1:19 PM Referring Provider: MIGUEL LEVY [[id number]] Allergies As of Date: 08/10/2024 Noted Allergy Reaction AMOXACILLIN (AMOXICILLIN) 03/09/2023 4 - Hives Comments: Skin test is negative. Challenge pending PENICILLINS 10/15/2020 4 - Hives Date Reviewed: 08/10/2024 Reviewed by: Nilton Zhang, LAUREN - Fully Assessed Reason for Visit: Infertility [285] Visit Diagnosis:Female infertility [N97.9] Order(s):FOLLICULAR US [facility] [[id number]] Order #: [id number]. #:[id number]: 1 Prescriptions as of 08/10/2024 - Follitropin [...] mouth two times a day. - Follitropin Keyon (GONAL-F RFF REDI-JECT) 300/0.5 unit/mL pnij Inject [...] Encounter Status:Closed by MICHEL JOSEPH on 08/10/24 ESTRADIOL SERPL-MCNC Collected: 08/10/2024 7:04 AM S tatus: F [facility] Order Comment: Specimen Type : BLOOD SPECIMEN Ordering Facility: [facility] Address: [address] [place] [address] TYPE CODE TESTS RESULT OUT OF RANGE REFERENCE UNITS LAB 2243-4(LOINC) Estradiol SerPl-mCnc <25 8-37 pg/mL Result Comment: This test is not suitable [...] 3243 pg/mL Second trimester : 1561 to 57173 pg/mL Third trimester : 8285 to >65219 pg/mL Post-menopausal Estradiol reference range: < 41 pg/mL Reference: 1. Estradiol - E2 (Estradiol III) [package insert V 3.0 [place]]. [facility], [place], [place], February 2016. Performed By: #### 2243-4 ## ## [facility] CLIA [id number] [address] [facility] [place] [address] [place] CNPN Observed: 08/08/2024 12:00 AM Status: COMPLETED Source: [facility] Telephone (REIBD) TIN ARIZMENDI ([id number]) 1985 F Date Time Provider Department 08/08/24 [...] Hives Date Reviewed: 07/18/2024 Reviewed by: Nam Arias, LAUREN - Fully Assessed Reason for Visit: LMP 08/06/24/ set up baselines for super ov [Other] Primary Visit Diagnosis:Female infertility [N97.9] Order(s):FOLLICULAR US [facility] [[id number]] Order #: [id number]: 1 STANDING ESTRADIOL-17B BLD [SQE2] Order #: [id number] STANDING Follitropin Beta (FOLLISTIM AQ) 300 unit/0.36 [...] mouth two times a day. - Follitropin Keyon (GONAL-F RFF REDI-JECT) 300/0.5 unit/mL pnij Inject [...] AND* 1 Ea* 1 08/08/2024 08/08/2024 Route: Misc Si Container one time only for 1 [...] Status:Closed by MARY ANN KIRKLAND on 08/09/24 PROGRESS Observed: 07/18/2024 7:03 AM Status: COMPLETED Source: [facility] HNO ID: [id number] Author: NAM ARIAS RN Service: ? Author [...] cycle per physician, see flowsheet for details. Howcasthart message sent. Medications reviewed and verified, instructions given. Patient denies any questions or concerns. Message sent to scheduling pool for next appt. Nam Arias RN July 18, 2024 1:25 PM CNNURSE Observed: 07/18/2024 7:00 AM Status: COMPLETED Source: [facility] Nurse Visit (MEGIAV) TIN ARIZMENDI ([id number]) 1985 F Date Time Provider Department 07/18/24 [...] cycle per physician, see flowsheet for details. Howcasthart message sent. Medications reviewed and verified, instructions given. Patient denies any questions or concerns. Message sent to scheduling pool for next appt. Nam Arias RN July 18, 2024 1:25 PM Referring Provider: MIGUEL LEVY [[id number]] Allergies As of Date: 07/18/2024 Noted Allergy Reaction AMOXACILLIN (AMOXICILLIN) 03/09/2023 4 - Hives Comments: Skin test is negative. Challenge pending PENICILLINS 10/15/2020 4 - Hives Date Reviewed: 07/18/2024 Reviewed by: Nam Arias RN - Fully Assessed Reason for Visit: Infertility [285] Visit Diagnosis:Female infertility [N97.9] Order(s):FOLLICULAR US [facility] [[id number]] Order #: [id number]. #:[id number]: 1 Prescriptions as of 07/18/2024 - metFORMIN [...] mouth two times a day. - Follitropin Keyon (GONAL-F RFF REDI-JECT) 300/0.5 unit/mL pnij Inject [...] Encounter Status:Closed by ARLEY PARIKH on 07/18/24 ESTRADIOL SERPL-MCNC Collected: 07/18/2024 6:36 AM S tatus: F [facility] Order Comment: Specimen Type : BLOOD SPECIMEN Ordering Facility: [facility] Address: [address] [place] [address] TYPE CODE TESTS RESULT OUT OF RANGE REFERENCE UNITS LAB 2243-4(LOINC) Estradiol SerPl-mCnc 221 High 8-37 pg/mL Result Comment: This test is not suitable [...] 3243 pg/mL Second trimester : 1561 to 41105 pg/mL Third trimester : 8285 to >10246 pg/mL Post-menopausal Estradiol reference range: < 41 pg/mL Reference: 1. Estradiol - E2 (Estradiol III) [package insert V 3.0 [place]ican]. [facility], [place], [place], February 2016. Performed By: #### 2243-4 ## ## [facility] CLIA [id number] [facility] [place] [address] [facility] PROGRESS Observed: 07/14/2024 1:50 PM Status: COMPLETED Source: [facility] ID: [id number] Author: GEE DEVRIES RN Service: ? Author Type: Registered Nurse Type: Progress Notes Filed: 07/14/2024 13:56 Note Text: RN called patient, name and verified. Plan given for IVF cycle per physician, see flowsheet for details. Howcasthart message sent. Medications reviewed and verified, instructions given. Patient denies any questions or concerns. Message sent to scheduling pool for next appt. Please schedule the patient for the following- Location: [place] Visit type: monitoring us / e2 / Date: 07/18 @7am Gee Devries RN July 14, 2024 1:50 PM PROGRESS Observed: 07/14/2024 7:06 AM Status: COMPLETED Source: [facility] ID: [id number] Author: IVY GARDNER RN Service: ? Author Type: Registered Nurse Type: Progress Notes Filed: 07/14/2024 12:36 Note Text: The patient is here today for follicular ultrasound and blood work. The patient reports no problems or complaints. Ultrasound and blood will be reviewed by the physician, the flow sheet will be updated and instructions will be communicated to the patient. Ivy Gardner RN CNNURSE Observed: 07/14/2024 7:00 AM Status: COMPLETED Source: [facility] Nurse Visit (REIAV) TIN ARIZMENDI ([id number]) 1985 F Date Time Provider Department 07/14/24 [...] cycle per physician, see flowsheet for details. Howcasthart message sent. Medications reviewed and verified, instructions given. Patient denies any questions or concerns. Message sent to scheduling pool for next appt. Please schedule the patient for the following- Location: [place] Visit type: monitoring us / e2 / Date: 07/18 @7am Gee Devries RN July 14, 2024 1:50 PM Referring Provider: MIGUEL LEVY [[id number]] Allergies As of Date: 07/14/2024 Noted Allergy Reaction AMOXACILLIN (AMOXICILLIN) 03/09/2023 4 - Hives Comments: Skin test is negative. Challenge pending PENICILLINS 10/15/2020 4 - Hives Date Reviewed: 07/07/2024 Reviewed by: Nilton Zhang RN - Fully Assessed Reason for Visit: Infertility [285] Visit Diagnosis:Female infertility [N97.9] Order(s):FOLLICULAR US [facility] [[id number]] Order #: [id number]. #:[id number]: 1 Prescriptions as of 07/14/2024 - metFORMIN [...] mouth two times a day. - Follitropin Keyon (GONAL-F RFF REDI-JECT) 300/0.5 unit/mL pnij Inject [...] Encounter Status:Closed by MICHEL JOSEPH on 07/14/24 ESTRADIOL SERPL-MCNC Collected: 07/14/2024 6:44 AM S tatus: F [facility] Order Comment: Specimen Type : BLOOD SPECIMEN Ordering Facility: [facility] Address: [address] [place] [address] TYPE CODE TESTS RESULT OUT OF RANGE REFERENCE UNITS LAB 2243-4(LOINC) Estradiol SerPl-mCnc 48 High 8-37 pg/mL Result Comment: This test is not suitable [...] 3243 pg/mL Second trimester : 1561 to 98214 pg/mL Third trimester : 8285 to >88526 pg/mL Post-menopausal Estradiol reference range: < 41 pg/mL Reference: 1. Estradiol - E2 (Estradiol III) [package insert V 3.0 [place]]. [facility], [place], [place], February 2016. Performed By: #### 2243-4 ## ## [facility] CLIA [id number] [facility] [place] [address] [facility] PROGRESS Observed: 07/07/2024 1:31 PM Status: COMPLETED Source: [facility] ID: [id number] Author: NILTON ZHANG RN Service: ? Author Type: Registered Nurse Type: Progress Notes Filed: 07/07/2024 13:31 Note Text: RN called patient, name and verified. Plan given for IVF cycle per physician, see flowsheet for details. [employer] message sent. Medications reviewed and verified, instructions given. Patient denies any questions or concerns. Message sent to scheduling pool for next appt. Nilton Zhang RN July 07, 2024 1:31 PM PROGRESS Observed: 07/07/2024 7:34 AM Status: COMPLETED Source: [facility] ID: [id number] Author: NILTON ZHANG RN Service: ? Author [...] Zhang RN July 07, 2024 7:34 AM CNNURSE Observed: 07/07/2024 7:30 AM Status: COMPLETED Source: [facility] Nurse Visit (REIAV) TIN ARIZMENDI ([id number]) 1985 F Date Time Provider Department 07/07/24 7:30 AM NURSE LOUISA [facility] REJ DEVINV During your visit today, we [...] cycle per physician, see flowsheet for details. [employer] message sent. Medications reviewed and verified, instructions given. Patient denies any questions or concerns. Message sent to scheduling pool for next appt. Nilton Zhang RN July 07, 2024 1:31 PM Referring Provider: MIGUEL LEVY [[id number]] Allergies As of Date: 07/07/2024 Noted Allergy Reaction AMOXACILLIN (AMOXICILLIN) 03/09/2023 4 - Hives Comments: Skin test is negative. Challenge pending PENICILLINS 10/15/2020 4 - Hives Date Reviewed: 07/07/2024 Reviewed by: Nilton Zhang RN - Fully Assessed Reason for Visit: Infertility [285] Visit Diagnosis:Female infertility [N97.9] Order(s):FOLLICULAR US [facility] [[id number]] Order #: [id number]. #:[id number]: 1 Prescriptions as of 07/07/2024 - metFORMIN [...] mouth two times a day. - Follitropin Keyon (GONAL-F RFF REDI-JECT) 300/0.5 unit/mL pnij Inject [...] Encounter Status:Closed by NILTON ZHANG on 07/07/24 ESTRADIOL SERPL-MCNC Collected: 07/07/2024 7:22 AM S tatus: F [facility] Order Comment: Specimen Type : BLOOD SPECIMEN Ordering Facility: [facility] Address: [address] [place] [address] TYPE CODE TESTS RESULT OUT OF RANGE REFERENCE UNITS LAB 2243-4(LOINC) Estradiol SerPl-mCnc 63 High 8-37 pg/mL Result Comment: This test is not suitable [...] 3243 pg/mL Second trimester : 1561 to 61794 pg/mL Third trimester : 8285 to >72558 pg/mL Post-menopausal Estradiol reference range: < 41 pg/mL Reference: 1. Estradiol - E2 (Estradiol III) [package insert V 3.0 [place]ican]. [facility], [place], [place], February 2016. Performed By: #### 2243-4 ## ## [facility] CLIA [id number] [facility] [place] [address] [facility] CNPN Observed: 07/04/2024 12:00 AM Status: COMPLETED Source: [facility] Telephone (REIAV) TIN ARIZMENDI ([id number]) 1985 F Date Time Provider Department 07/04/24 MICHEL JOSEPH During your visit today, we recorded the following information about you: Miguel Barbour 07/04/2024 10:50 AM Signed Super Ovulation Patient started period Thursday and following up on next steps Mary Ann Kirkland, LAUREN 07/04/2024 2:22 PM Addendum metformin 500mg twice [...] discussed last cycle, listed above Sent to [employer]. Location: [place] Visit type: SO baseline Date: 07/07/[address] [facility] Mary Ann Kirkland RN July 04, 2024 2:18 PM Allergies As of Date: 07/04/2024 Noted Allergy Reaction AMOXACILLIN (AMOXICILLIN) 03/09/2023 4 - Hives Comments: Skin test is negative. Challenge pending PENICILLINS 10/15/2020 4 - Hives Date Reviewed: 06/15/2024 Reviewed by: Nilton Zhang RN - Fully Assessed Reason for Visit: Next Steps [3565] Primary Visit Diagnosis:Female infertility [N97.9] Order(s):FOLLICULAR [facility] [[id number]] Order #: [id number]: 1 STANDING ESTRADIOL-17B BLD [SQE2] Order #: [id number] STANDING Prescriptions as of 07/04/2024 - metFORMIN [...] mouth two times a day. - Follitropin Keyon (GONAL-F RFF REDI-JECT) 300/0.5 unit/mL pnij Inject [...] Status:Closed by MARY ANN KIRKLAND on 07/04/24 PROGRESS Observed: 06/15/2024 1:01 PM Status: COMPLETED Source: [facility]NO ID: [id number] Author: NILTON ZHANG RN Service: ? Author Type: Registered Nurse Type: Progress Notes Filed: 06/15/2024 13:02 Note Text: RN called patient, name and verified. Plan given for IVF cycle per physician, see flowsheet for details. Howcasthart message sent. Medications reviewed and verified, instructions given. Patient denies any questions or concerns. Message sent to scheduling pool for next appt. Nilton Zhang RN June 15, 2024 1:02 PM PROGRESS Observed: 06/15/2024 8:21 AM Status: COMPLETED Source: [facility] ID: [id number] Author: NILTON ZHANG RN Service: ? Author [...] Zhang RN June 15, 2024 8:21 AM ESTRADIOL SERPL-MCNC Collected: 06/15/2024 7:01 AM S tatus: F [facility] Order Comment: Specimen Type : BLOOD SPECIMEN Ordering Facility: [facility] Address: [address] [place] [address] TYPE CODE TESTS RESULT OUT OF RANGE REFERENCE UNITS LAB 2243-4(LOINC) Estradiol SerPl-mCnc 315 High 8-37 pg/mL Result Comment: This test is not suitable [...] 3243 pg/mL Second trimester : 1561 to 28891 pg/mL Third trimester : 8285 to >67140 pg/mL Post-menopausal Estradiol reference range: < 41 pg/mL Reference: 1. Estradiol - E2 (Estradiol III) [package insert V 3.0 [place]]. [facility], [place], [place], February 2016. Performed By: #### 2243-4, 1 0501-5, 2839-9 #### [facility] CLIA [id number] [facility]. [address] OF [facility] LH SERPL-ACNC Collected: 7:01 AM Status: F [facility] Order Comment: Specimen Type : BLOOD SPECIMEN Ordering Facility: [facility] Address: [address] [place] [address] TYPE CODE TESTS RESULT OUT OF RANGE REFERENCE UNITS LAB 30891-9(LOINC) LH SerPl-aCnc 4.1 See comment mIU/mL Result Comment: Reference ra nge: Follicular: 2.4-12.6 mIU/mL Midcycle: 14.0-95.6 mIU/mL Luteal: 1.0-11.4 mIU/mL Post [place]: 7.7-58.5 mIU/mL Performed By: #### 2243-4, 1 0501-5, 2839-9 #### [facility] CLIA [id number] [facility] [place] [address] [facility] PROGEST SERPL-MCNC Collected: 7:01 AM Status: F [facility] Order Comment: Specimen Type : BLOOD SPECIMEN Ordering Facility: [facility] Address: Formerly named [facility] [place] [address] TYPE CODE TESTS RESULT OUT OF RANGE REFERENCE UNITS LAB 2839-9(LOINC) Progest SerPl-mCnc 0.4 See comment ng/mL Result Comment: Menstrual Cy claudia Progesterone Reference Ranges: Follicular: <1.0 ng/mL Ovulation: <12.1 ng/mL Luteal: 1.8 to 23.9 ng/mL. Progesterone Reference Ranges vary by gestational period: First Trimester: 11.0 to 44.3 ng/mL Second Trimester: 25.4 to 83.3 ng/mL Third Trimester: 58.7 to 214 ng/mL Post menopausal Progesterone: <0.5 ng/mL Reference: 1. Progesterone (Progesterone III) [package insert V 1.0 Mozambican]. [facility], [place], [place]. June 2015. Performed By: #### 2243-4, 1 0501-5, 2839-9 #### [facility] CLIA [id number] [address] [facility] [place] [address] [facility] CNNURSE Observed: 06/15/2024 7:00 AM Status: COMPLETED Source: [facility] Nurse Visit (REIAV) TIN ARIZMENDI ([id number]) 1985 F Date Time Provider Department 06/15/24 7:00 AM NURSE LOUISA [facility] REJ REIAV During your visit today, we [...] cycle per physician, see flowsheet for details. PressLabs message sent. Medications reviewed and verified, instructions given. Patient denies any questions or concerns. Message sent to scheduling pool for next appt. Nilton Zhang RN June 15, 2024 1:02 PM Referring Provider: MICHEL JOSEPH [[id number]] Allergies As of Date: 06/15/2024 Noted Allergy Reaction AMOXACILLIN (AMOXICILLIN) 03/09/2023 4 - Hives Comments: Skin test is negative. Challenge pending PENICILLINS 10/15/2020 4 - Hives Date Reviewed: 06/15/2024 Reviewed by: Nilton Zhang RN - Fully Assessed Reason for Visit: Infertility [285] Visit Diagnosis:Primary female infertility [N97.9] Order(s):FOLLICULAR US [facility] [[id number]] Order #: [id number]. #:[id number]: 1 Prescriptions as of 06/15/2024 - metFORMIN [...] mouth two times a day. - Follitropin Keyon (GONAL-F RFF REDI-JECT) 300/0.5 unit/mL pnij Inject [...] Encounter Status:Closed by NILTON ZHANG on 06/15/24 PROGRESS Observed: 06/13/2024 8:37 AM Status: COMPLETED Source: [facility] ID: [id number] Author: MARY ANN KIRKLAND RN Service: ? [...] cycle per physician, see flowsheet for details. PressL[employer] message sent. Medications reviewed and verified, instructions given. Patient denies any questions or concerns. Message sent to scheduling pool for next appt. Location: [place] Visit type: IVF us/e2/p4/lh Date: 06/15 Mary Ann Kirkland RN June 13, 2024 12:44 PM CNNURSE Observed: 06/13/2024 8:15 AM Status: COMPLETED Source: [facility] Nurse Visit (REIAV) TIN ARIZMENID ([id number]) 1985 F Date Time Provider Department 06/13/24 8:15 AM NURSE LOUISA [facility] GERARDO REIAAlek During your visit today, we recorded the [...] to scheduling pool for next appt. Location: [place] Visit type: IVF us/e2/p4/lh Date: 06/15 Mary Ann Kirkland RN June 13, 2024 12:44 PM Referring Provider: MICHEL JOSEPH [[id number]] Allergies As of Date: 06/13/2024 Noted Allergy Reaction AMOXACILLIN (AMOXICILLIN) 03/09/2023 4 - Hives Comments: Skin test is negative. Challenge pending PENICILLINS 10/15/2020 4 - Hives Date Reviewed: 06/03/2024 Reviewed by: Nilton Zhang RN - Fully Assessed Reason for Visit: Infertility [285] Visit Diagnosis:Primary female infertility [N97.9] Order(s):FOLLICULAR US [facility] [[id number]] Order #: [id number]. #:[id number]: 1 LUTEINIZING HORMONE [SQLH] Order #: [id number] FUTURE PROGESTERONE [SQPROG] Order #: [id number] FUTURE ESTRADIOL-17B BLD [SQE2] Order #: [id number] FUTURE Prescriptions as of 06/13/2024 - metFORMIN [...] mouth two times a day. - Follitropin Keyon (GONAL-F RFF REDI-JECT) 300/0.5 unit/mL pnij Inject [...] Status:Closed by MARY ANN KIRKLAND on 06/13/24 ESTRADIOL SERPL-MCNC Collected: 06/13/2024 7:58 AM S tatus: F [facility] Order Comment: Specimen Type : BLOOD SPECIMEN Ordering Facility: [facility] Address: [address] [place] [address] TYPE CODE TESTS RESULT OUT OF RANGE REFERENCE UNITS LAB 2243-4(INC) Estradiol SerPl-mCnc 259 High 8-37 pg/mL Result Comment: This test is not suitable [...] 3243 pg/mL Second trimester : 1561 to 82637 pg/mL Third trimester : 8285 to >79313 pg/mL Post-menopausal Estradiol reference range: < 41 pg/mL Reference: 1. Estradiol - E2 (Estradiol III) [package insert V 3.0 [place]ican]. [facility], [place], [place], February 2016. Performed By: #### 2243-4 ## ## [facility] CLIA [id number] [address] [facility] [place] [address] [place] PROGRESS Observed: 06/10/2024 1:24 PM Status: COMPLETED Source: [facility] HNO ID: [id number] Author: NILTON ZHANG RN Service: ? Author [...] Zhang RN June 10, 2024 1:25 PM PROGRESS Observed: 06/10/2024 12:48 PM Status: COMPLETED Source: [facility] HNO ID: [id number] Author: NILTON ZHANG RN Service: ? Author [...] Zhang RN June 10, 2024 12:58 PM PROGRESS Observed: 06/10/2024 12:47 PM Status: COMPLETED Source: [facility] HNO ID: [id number] Author: TIFFANY GONZALEZ MD Service: ? Author Type: Physician Type: Progress Notes Filed: 06/10/2024 12:58 Note Text: LOUISA Attending Physician Note: Ultrasound and lab results reviewed. Based on review of ultrasound and lab results, medication dose and follow up date plans provided. See cycle flowsheet for dosing details. Tiffany Gonzalez MD, CROW ESTRADIOL SERPL-MCNC Collected: 06/10/2024 7:27 AM S tatus: F [facility] Order Comment: Specimen Type : BLOOD SPECIMEN Ordering Facility: [facility] Address: [address] [place] [address] TYPE CODE TESTS RESULT OUT OF RANGE REFERENCE UNITS LAB 2243-4(LOINC) Estradiol SerPl-mCnc 160 High 8-37 pg/mL Result Comment: This test is not suitable [...] 3243 pg/mL Second trimester : 1561 to 84212 pg/mL Third trimester : 8285 to >24956 pg/mL Post-menopausal Estradiol reference range: < 41 pg/mL Reference: 1. Estradiol - E2 (Estradiol III) [package insert V 3.0 [place]ican]. [facility], [place], [place], February 2016. Performed By: #### 2243-4 ## ## [facility] CLIA [id number] [address] [facility] [place] [address] [place] PROGRESS Observed: 06/10/2024 7:09 AM Status: COMPLETED Source: [facility] HNO ID: [id number] Author: GEE DEVRIES RN Service: ? Author [...] Devries RN June 10, 2024 7:09 AM CNNURSE Observed: 06/10/2024 7:00 AM Status: COMPLETED Source: [facility] Nurse Visit (REIAV) TIN ARIZMENDI ([id number]) 1985 F Date Time Provider Department 06/10/24 [...] Tiffany Gonzalez MD, CROW Nilton Zhang RN 06/10/2024 12:58 PM Signed RN called patient, name and verified. Plan given for IVF cycle per physician, see flowsheet for details. Howcasthart message sent. Medications reviewed and verified, instructions [...] and sent to Dr. Joseph to file. Caarbonhart sent to patient. Nilton Zhang RN June 10, 2024 1:25 PM Nilton Zhang RN 06/10/2024 1:29 PM Signed Addended by: NILTON ZHANG on: 06/10/2024 01:29 PM Modules accepted: Orders Referring Provider: MICHEL JOSEPH [[id number]] Allergies As of Date: 06/10/2024 Noted Allergy Reaction AMOXACILLIN (AMOXICILLIN) 03/09/2023 4 - Hives Comments: Skin test is negative. Challenge pending PENICILLINS 10/15/2020 4 - Hives Date Reviewed: 06/03/2024 Reviewed by: Nilton Zhang RN - Fully Assessed Reason for Visit: Infertility [285] Visit Diagnosis:Primary female infertility [N97.9] Order(s):FOLLICULAR US [facility] [[id number]] Order #: [id number]. #:[id number]: 1 metFORMIN (GLUCOPHAGE) 500 mg tabletTake 1 [...] mouth two times a day. - Follitropin Keyon (GONAL-F RFF REDI-JECT) 300/0.5 unit/mL pnij Inject [...] Encounter Status:Closed by NILTON ZHANG on 06/10/24 PROGRESS Observed: 06/06/2024 3:02 PM Status: COMPLETED Source: [facility] HNO ID: [id number] Author: MARY ANN KIRKLAND RN Service: ? Author Type: Registered Nurse Type: Progress Notes Filed: 06/06/2024 15:03 Note Text: RN called patient, name and verified. Plan given for IVF cycle per physician, see flowsheet for details. [employer] Houset message sent. Medications reviewed and verified, instructions given. Patient denies any questions or concerns. Message sent to scheduling pool for next appt. Location: [place] Visit type: so us/ Date: 06/10 @ 7am Mary Ann Kirkland RN June 06, 2024 3:02 PM CNNURSE Observed: 06/06/2024 8:45 AM Status: COMPLETED Source: [facility] Nurse Visit (REIAV) TIN ARIZMENDI ([id number]) 1985 F Date Time Provider Department 06/06/24 [...] cycle per physician, see flowsheet for details. [employer] Houset message sent. Medications reviewed and verified, instructions given. Patient denies any questions or concerns. Message sent to scheduling pool for next appt. Location: [place] Visit type: so us/e2 Date: 06/10 @ 7am Mary Ann Kirkland RN June 06, 2024 3:02 PM Referring Provider: MICHEL JOSEPH [[id number]] Allergies As of Date: 06/06/2024 Noted Allergy Reaction AMOXACILLIN (AMOXICILLIN) 03/09/2023 4 - Hives Comments: Skin test is negative. Challenge pending PENICILLINS 10/15/2020 4 - Hives Date Reviewed: 06/03/2024 Reviewed by: Nilton Zhang RN - Fully Assessed Reason for Visit: Infertility [285] Visit Diagnosis:Primary female infertility [N97.9] Order(s):FOLLICULAR US [facility] [[id number]] Order #: [id number]. #:[id number]: 1 Prescriptions as of 06/06/2024 - Norethin [...] mouth two times a day. - Follitropin Keyon (GONAL-F RFF REDI-JECT) 300/0.5 unit/mL pnij Inject [...] Status:Closed by MARY ANN KIRKLAND on 06/06/24 PROGRESS Observed: 06/06/2024 8:19 AM Status: COMPLETED Source: [facility] ID: [id number] Author: GEE DEVRIES RN Service: ? Author Type: Registered Nurse Type: Progress Notes Filed: 06/06/2024 15:03 Note Text: The patient is here today for follicular ultrasound and blood work. The patient reports no problems or complaints. Ultrasound and blood will be reviewed by the physician, the flow sheet will be updated and instructions will be communicated to the patient. Gee Devries RN ESTRADIOL SERPL-MCNC Collected: 06/06/2024 7:22 AM S tatus: F [facility] Order Comment: Specimen Type : BLOOD SPECIMEN Ordering Facility: [facility] Address: [address] [place] [address] TYPE CODE TESTS RESULT OUT OF RANGE REFERENCE UNITS LAB 2243-4(LOINC) Estradiol SerPl-mCnc 79 High 8-37 pg/mL Result Comment: This test is not suitable [...] 3243 pg/mL Second trimester : 1561 to 67587 pg/mL Third trimester : 8285 to >35813 pg/mL Post-menopausal Estradiol reference range: < 41 pg/mL Reference: 1. Estradiol - E2 (Estradiol III) [package insert V 3.0 Moz[place]ican]. [facility], [place], [place], February 2016. Performed By: #### 2243-4 ## ## [facility] CLIA [id number] [address] [facility] [place] [address] [facility] PROGRESS Observed: 06/03/2024 12:50 PM Status: COMPLETED Source: [facility] HNO ID: [id number] Author: NILTON ZHANG RN Service: ? Author Type: Registered Nurse Type: Progress Notes Filed: 06/03/2024 12:50 Note Text: RN called patient, name and verified. Plan given for IVF cycle per physician, see flowsheet for details. PressLabs message sent. Medications reviewed and verified, instructions given. Patient denies any questions or concerns. Message sent to scheduling pool for next appt. Nilton Zhang RN June 03, 2024 12:50 PM PROGRESS Observed: 06/03/2024 7:03 AM Status: COMPLETED Source: [facility] HNO ID: [id number] Author: NILTON ZHANG RN Service: ? Author [...] Zhang RN June 03, 2024 7:03 AM CNNURSE Observed: 06/03/2024 7:00 AM Status: COMPLETED Source: [facility] Nurse Visit (REIAV) TIN ARIZMENDI ([id number]) 1985 F Date Time Provider Department 06/03/24 [...] cycle per physician, see flowsheet for details. [employer] Houset message sent. Medications reviewed and verified, instructions given. Patient denies any questions or concerns. Message sent to scheduling pool for next appt. Nilton Zhang RN June 03, 2024 12:50 PM Referring Provider: MICHEL JOSEPH [[id number]] Allergies As of Date: 06/03/2024 Noted Allergy Reaction AMOXACILLIN (AMOXICILLIN) 03/09/2023 4 - Hives Comments: Skin test is negative. Challenge pending PENICILLINS 10/15/2020 4 - Hives Date Reviewed: 06/03/2024 Reviewed by: Nilton Zhang RN - Fully Assessed Reason for Visit: Infertility [285] Visit Diagnosis:Primary female infertility [N97.9] Order(s):FOLLICULAR US [facility] [[id number]] Order #: [id number]. #:[id number]: 1 Prescriptions as of 06/03/2024 - Norethin [...] mouth two times a day. - Follitropin Keyon (GONAL-F RFF REDI-JECT) 300/0.5 unit/mL pnij Inject [...] Encounter Status:Closed by MICHEL JOSEPH on 06/03/24 ESTRADIOL SERPL-MCNC Collected: 06/03/2024 6:49 AM S tatus: F [facility] Order Comment: Specimen Type : BLOOD SPECIMEN Ordering Facility: [facility] Address: [address] [place] [address] TYPE CODE TESTS RESULT OUT OF RANGE REFERENCE UNITS LAB 2243-4(LOINC) Estradiol SerPl-mCnc 86 High 8-37 pg/mL Result Comment: This test is not suitable [...] 3243 pg/mL Second trimester : 1561 to 07223 pg/mL Third trimester : 8285 to >91776 pg/mL Post-menopausal Estradiol reference range: < 41 pg/mL Reference: 1. Estradiol - E2 (Estradiol III) [package insert V 3.0 [place]]. [facility], [place], [place], February 2016. Performed By: #### 2243-4 ## ## [facility] CLIA [id number] [address] [facility] [place] [address] [facility] PROGRESS Observed: 05/27/2024 1:06 PM Status: COMPLETED Source: [facility] HNO ID: [id number] Author: NILTON ZHANG RN Service: ? Author [...] Zhang RN May 27, 2024 1:06 PM PROGRESS Observed: 05/27/2024 11:45 AM Status: COMPLETED Source: [facility] HNO ID: [id number] Author: TIFFANY GONZALEZ MD Service: ? Author Type: Physician Type: Progress Notes Filed: 05/27/2024 13:07 Note Text: LOUISA Attending Physician Note: Ultrasound and lab results reviewed. Based on review of ultrasound and lab results, medication dose and follow up date plans provided. See cycle flowsheet for dosing details. Tiffany Gonzalez MD, CROW PROGRESS Observed: 05/27/2024 7:01 AM Status: COMPLETED Source: [facility] HNO ID: [id number] Author: NILTON ZHANG RN Service: ? Author [...] Zhang RN May 27, 2024 7:02 AM CNNURSE Observed: 05/27/2024 7:00 AM Status: COMPLETED Source: [facility] Nurse Visit (REIAV) TIN ARIZMENDI ([id number]) 1985 F Date Time Provider Department 05/27/24 7:00 AM NURSE LOUISA [facility] GERARDO REIAV During your visit today, we recorded [...] cycle per physician, see flowsheet for details. Howcasthart message sent. Medications reviewed and verified, instructions given. Patient denies any questions or concerns. Message sent to scheduling pool for next appt. Nilton Zhang RN May 27, 2024 1:06 PM Referring Provider: KOBI WEINER [[id number]] Allergies As of Date: 05/27/2024 Noted Allergy Reaction AMOXACILLIN (AMOXICILLIN) 03/09/2023 4 - Hives Comments: Skin test is negative. Challenge pending PENICILLINS 10/15/2020 4 - Hives Date Reviewed: 05/27/2024 Reviewed by: Nilton Zhang RN - Fully Assessed Reason for Visit: Infertility [285] Visit Diagnosis:Female infertility [N97.9] Order(s):FOLLICULAR US [facility] [[id number]] Order #: [id number]. #:[id number]: 1 Prescriptions as of 05/27/2024 - Norethin [...] mouth two times a day. - Follitropin Keyon (GONAL-F RFF REDI-JECT) 300/0.5 unit/mL pnij Inject [...] Encounter Status:Closed by NILTON ZHANG on 05/27/24 ESTRADIOL SERPL-MCNC Collected: 05/27/2024 6:44 AM S tatus: F [facility] Order Comment: Specimen Type : BLOOD SPECIMEN Ordering Facility: [facility] Address: [address] [place] [address] TYPE CODE TESTS RESULT OUT OF RANGE REFERENCE UNITS LAB 2243-4(LOINC) Estradiol SerPl-mCnc 35 8-37 pg/mL Result Comment: This test is not suitable [...] 3243 pg/mL Second trimester : 1561 to 58036 pg/mL Third trimester : 8285 to >42357 pg/mL Post-menopausal Estradiol reference range: < 41 pg/mL Reference: 1. Estradiol - E2 (Estradiol III) [package insert V 3.0 [place]]. [facility], [place], [place], February 2016. Performed By: #### 2243-4 ## ## [facility] CLIA [id number] [address] [facility] [place], [place] [address] [place] [address] [place] TYPE + SCREEN Collected: 05/27/2024 6:44 AM Status: F [facility] Order Comment: Specimen Type : BLOOD SPECIMEN Ordering Facility: [facility] Address: [address] [place] [address] TYPE CODE TESTS RESULT OUT OF RANGE REFERENCE UNITS LAB 1415934610 ABO O LAB [id number] RH Positive LAB 9022802367 ANTIBODY SCREEN Negative LAB [id number] TYPE AND SCREEN EXPIRATION 05/30/2024 23:59 LAB PREVAB HISTORICAL AB SCR STATUS NEGATIVE Performed By: #### TSCR #### [facility] CLIA [id number] [address] [place] [address] [facility] Observed: 05/24/2024 11:46 AM Status: COMPLETED Source: [facility] HNO ID: [id number] Author: MICHEL JOSEPH MD Service: ? Author [...] Count Sperm M 365.50 % Motile Sperm (%MI + %PRINCIPAL ACCOUNT CLERK) >=40 % 76 Forward Progression 3 = [...] follow up with me. Michel Joseph MD SURGICAL PATHOLOGY Collected: 12:26 PM Status: F Source: [facility] Order Comment: Specimen Type : TISSUE SPECIMEN Ordering Facility: [facility] Address: [address] [place] [address] TYPE CODE TESTS RESULT OUT OF RANGE REFERENCE UNITS PATHOLOGY [id number] CASE REPORT Result Comment: Surgical Pat hology Report Case: [id number] Authorizing Provider: Odette Villa MD Collected: 05/13/2024 12:26 PM [facility] Received: 05/13/2024 03:34 PM Pathologist: Harry Hodge MD Specimen: Endometrium, Biopsy PATHOLOGY [id number] FINAL DIAGNOSIS Result Comment: A. Endometri um, biopsy: - Proliferative endometrium. ACV/dsh 05/18/2024 OLOGY [id number] GROSS DESCRIPTION Result Comment: A. Endometri um, Biopsy Received in formalin are multiple butt to butt-white, soft feathery segments of tissue admixed mucinous material aggregating to 0.4 x 0.2 x 0.1 cm. Totally submitted in one cassette. DB May 13, 2024 11:22 PM [place] [address] PATHOLOGY CDX2 CLINICAL HISTORY 38yo with something on imaging concerning for polyp PATHOLOGY [facility] FINAL PERFORMING LAB Result Comment: Diagnostic i nterpretation performed at [place] [address] CLIA# [id number] Spreader Box Operator: Vincent Leon M.D. Performed By: #### S #### [facility] CLIA [id number] [address] [place] [address] PROCEDURE Observed: 05/13/2024 12:17 PM Status: COMPLETED Source: [facility] HNO ID: [id number] Author: MICHEL JOSEPH MD Service: ? Author [...] up endometrial biopsy results Michel Joseph MD CNOV Observed: 05/13/2024 11:30 AM Status: COMPLETED Source: [facility] Office Visit (IVFBE) TIN ARIZMENDI ([id number]) 1985 F Date Time Provider Department 05/13/24 11:30 AM MICHEL JOSEPH IVFBE During your visit today, we recorded the following information about you: Temperature Pulse Respiration Blood pressure 97.9 degrees 80/minute 18/minute 145/72 Weight Height Last Period 113.4 kg 1.626 m 05/06/24 Michel Joseph MD 05/15/2024 12:58 PM Signed Tin Arizmendi presents for hysteroscopy. Indication: Irregular [...] Michel Joseph MD Referring Provider: MICHEL JOSEPH [[id number]] Allergies As of Date: 05/13/2024 Noted Allergy Reaction AMOXACILLIN (AMOXICILLIN) 03/09/2023 4 - Hives Comments: Skin test is negative. Challenge pending PENICILLINS 10/15/2020 4 - Hives Date Reviewed: 05/13/2024 Reviewed by: Tin Gardner RN - Fully Assessed Primary Visit Diagnosis:Pre-operative laboratory examination [Z01.812] Other Visit Diagnoses:Endometrial polyp [N84.0] Encounter for fertility testing [Z31.41] Order(s):HCG QUAL UR B/O [[id number]] Order #: [id number] SURGICAL PATHOLOGY [[id number]] Order #: [id number]. #:[id number] Prescriptions as of 05/15/2024 - Norethin Misael-Eth [...] mouth two times a day. - Follitropin Keyon (GONAL-F RFF REDI-JECT) 300/0.5 unit/mL pnij Inject [...] Encounter Status:Closed by MICHEL JOSEPH on 05/15/24 CNCO Observed: 05/13/2024 12:00 AM Status: COMPLETED Source: [facility] Letter Text NAVIN Observed: 05/05/2024 12:00 AM Status: COMPLETED Source: [facility] Telephone (REIAV) TIN ARIZMENDI ([id number]) 1985 F Date Time Provider Department 05/05/24 [...] Date Reviewed: 04/29/2024 Reviewed by: Miguel Levy APRN.[address] LIAISON - Fully Assessed Prescriptions as of 05/05/2024 [...] mouth two times a day. - Follitropin Keyon (GONAL-F RFF REDI-JECT) 300/0.5 unit/mL pnij Inject [...] Encounter Status:Closed by NILTON ZHANG on 05/05/24 CNPN Observed: 05/04/2024 12:00 AM Status: COMPLETED Source: [facility] Telephone (REIBD) TIN ARIZMENDI ([id number]) 1985 F Date Time Provider Department 05/04/24 [...] Date Reviewed: 04/29/2024 Reviewed by: Miguel Levy APRN.[address]EN[address] LIAISON - Fully Assessed Reason for Visit: Patient Question [4087] Prescriptions as of 05/04/2024 - Norethin Misael-Eth [...] mouth two times a day. - Follitropin Keyon (GONAL-F RFF REDI-JECT) 300/0.5 unit/mL pnij Inject [...] Encounter Status:Closed by NILTON ZHANG on 05/04/24 NAVIN Observed: 05/03/2024 12:00 AM Status: COMPLETED Source: [facility] Telephone (REIBD) TIN ARIZMENDI ([id number]) 1985 F Date Time Provider Department 05/03/24 [...] Date Reviewed: 04/29/2024 Reviewed by: Miguel Levy APRN.[address]EN[address] LIAISON - Fully Assessed Reason for Visit: Next [...] mouth two times a day. - Follitropin Keyon (GONAL-F RFF REDI-JECT) 300/0.5 unit/mL pnij Inject [...] Encounter Status:Closed by NILTON ZHANG on 05/04/24 PROCEDURE Observed: 04/29/2024 12:01 PM Status: COMPLETED Source: [facility] ID: [id number] Author: MIGUEL LEVY APRN.JUVEN[address] LIAISON Service: ? Author Type: Nurse Practitioner Type: Procedures Filed: 04/29/2024 12:08 Note Text: Tin Arizmendi is a 38 year old here for SIS. Referred by: Michel Joseph [id number] [place] [address] Chief Complaint: irregular bleeding Endometrial Biopsy: No [...] Care Visit completed when applicable. Miguel Levy APRN.CNPPROCEDURE: EXTERNAL GENITALIA: Normal in appearance without lesions [...] ViewPoint for procedure results. Miguel Levy APRN.CNP CNOV Observed: 04/29/2024 11:00 AM Status: COMPLETED Source: [facility] Office Visit (REIAV) TIN ARIZMENDI ([id number]) 1985 F Date Time Provider Department 04/29/24 11:00 AM MIGUEL LEVY During your visit today, we recorded the following information about you: Pulse Blood pressure Weight Height 64/minute 144/99 117.9 kg 1.626 m Miguel Levy APRN.CNP 04/29/2024 12:08 PM Signed Tin Arizmendi is a 38 year old here for SIS. Referred by: Michel Joseph [id number] [place] [id number] Chief Complaint: irregular bleeding Endometrial Biopsy: No [...] Care Visit completed when applicable. Miguel Levy APRN.[address] LIAISON PROCEDURE: EXTERNAL GENITALIA: Normal in appearance without [...] See ViewPoint for procedure results. Miguel Levy APRN.[address] LIAISON Referring Provider: MICHEL JOSEPH [[id number]] Allergies As of Date: 04/29/2024 Noted Allergy Reaction AMOXACILLIN (AMOXICILLIN) 03/09/2023 4 - Hives Comments: Skin test is negative. Challenge pending PENICILLINS 10/15/2020 4 - Hives Date Reviewed: 04/29/2024 Reviewed by: Miguel Levy APRN.JUVEN[address] LIAISON - Fully Assessed Reason for Visit: Infertility [285] Primary Visit Diagnosis:Pre-procedure lab exam [Z01.812] Other Visit Diagnosis:Fertility testing [Z31.41] Order(s):HCG QUAL UR B/O [[id number]] Order #: [id number] SONOHYSTEROGRAPHY (SIS) [facility] [[id number]] Order #: [id number]. #:[id number]: 1 Prescriptions as of 05/01/2024 - Norethin [...] mouth two times a day. - Follitropin Keyon (GONAL-F RFF REDI-JECT) 300/0.5 unit/mL pnij Inject [...] Encounter Status:Closed by MICHEL JOSEPH on 05/01/24 PROGRESS Observed: 04/15/2024 12:54 PM Status: COMPLETED Source: [facility] ID: [id number] Author: TIFFANY GONZALEZ MD Service: ? Author [...] a withdrawal bleed. Tiffany Gonzalez MD, CROW PROGRESS Observed: 04/15/2024 10:05 AM Status: COMPLETED Source: [facility] HNO ID: [id number] Author: NILTON ZHANG RN Service: ? Author [...] Zhang RN April 15, 2024 10:05 AM CNNURSE Observed: 04/15/2024 7:45 AM Status: COMPLETED Source: [facility] Nurse Visit (REIAV) TIN ARIZMENDI ([id number]) 1985 F Date Time Provider Department 04/15/24 7:45 AM NURSE LOUISA [facility] REJ REIAV During your visit today, we [...] Gonzalez MD, CROW Referring Provider: KOBI WEINER [[id number]] Allergies As of Date: 04/15/2024 Noted Allergy Reaction AMOXACILLIN (AMOXICILLIN) 03/09/2023 4 - Hives Comments: Skin test is negative. Challenge pending PENICILLINS 10/15/2020 4 - Hives Date Reviewed: 04/15/2024 Reviewed by: Nilton Zhang RN - Fully Assessed Reason for Visit: Infertility [285] Primary Visit Diagnosis:Irregular menses [N92.6] Other Visit Diagnosis:Female infertility [N97.9] Order(s):[facility] [8843212] Order #: [id number]. #:[id number]: 1 Norethin Misael-Eth Estrad-FE (MICROGESTIN FE) 1.5 [...] mouth two times a day. - Follitropin Keyon (GONAL-F RFF REDI-JECT) 300/0.5 unit/mL pnij Inject [...] Encounter Status:Closed by NILTON ZHANG on 04/15/24 ESTRADIOL SERPL-MCNC Collected: 04/15/2024 7:27 AM S tatus: F [facility] Order Comment: Specimen Type : BLOOD SPECIMEN Ordering Facility: [facility] Address: [address] [place] [address] TYPE CODE TESTS RESULT OUT OF RANGE REFERENCE UNITS LAB 2243[facility] Estradiol SerPl-mCnc 38 High 8-37 pg/mL Result Comment: This test is not suitable [...] 3243 pg/mL Second trimester : 1561 to 13581 pg/mL Third trimester : 8285 to >79665 pg/mL Post-menopausal Estradiol reference range: < 41 pg/mL Reference: 1. Estradiol - E2 (Estradiol III) [package insert V 3.0 Moz[place]ican]. [employer], [place], [place], February 2016. Performed By: #### 2243-4 ## ## [facility] CLIA [id number] LH SERPL-ACNC Collected: 4 7:27 AM Status: F [facility] Order Comment: Specimen Type : BLOOD SPECIMEN Ordering Facility: [facility] Address: [address] [place] [address] TYPE CODE TESTS RESULT OUT OF RANGE REFERENCE UNITS LAB 85947-8(LOINC) LH SerPl-aCnc 10.9 See comment mIU/mL Result Comment: Reference ra nge: Follicular: 2.4-12.6 mIU/mL Midcycle: 14.0-95.6 mIU/mL Luteal: 1.0-11.4 mIU/mL Post [place]: 7.7-58.5 mIU/mL Performed By: #### 54301-3, 2839-9 #### [facility] CLIA [id number] [address] PROGEST SERPL-MCNC Collected: 4 7:27 AM Status: F [facility] Order Comment: Specimen Type : BLOOD SPECIMEN Ordering Facility: [facility] Address: [address] [place] [address] TYPE CODE TESTS RESULT OUT OF RANGE REFERENCE UNITS LAB 2839-9(LOINC) Progest SerPl-mCnc <0.2 See comment ng/mL Result Comment: Menstrual Cy claudia Progesterone Reference Ranges: Follicular: <1.0 ng/mL Ovulation: <12.1 ng/mL Luteal: 1.8 to 23.9 ng/mL. Progesterone Reference Ranges vary by gestational period: First Trimester: 11.0 to 44.3 ng/mL Second Trimester: 25.4 to 83.3 ng/mL Third Trimester: 58.7 to 214 ng/mL Post menopausal Progesterone: <0.5 ng/mL Reference: 1. Progesterone (Progesterone III) [package insert V 1.0 [place]ican]. [employer], [place], [place]. June 2015. Performed By: #### 74594-3, 2839-9 #### [facility] CLIA [id number] [facility] [place] [address] [facility] 17 HYDROXYPROGESTERONE Collected: 04/07 1:27 PM Status: F Source: [facility] TYPE CODE TESTS RESULT OUT OF RANGE REFERENCE UNITS LAB 1668-3(LOINC) 17OHP SerPl-mCnc 38 ng/dL Result Comment: (NOTE) Unable to flag abnormal result(s), please refer [...] Endocrinol Metab. 1991;73:674-686; J Clin Endocrinol Metab. 1989;69;2704-7167; J Clin Endocrinol Metab. 1994;78:226-270. Pediatr Res 1988;23:525-529. MedLinePlus (accessed 02/27/14). This test was developed and its analytical performance characteristics have been determined by [employer] [place], [place]. It has not been cleared or approved by the U.S. Food and Drug Administration. This assay has been validated pursuant to the CLIA regulations and is used for clinical purposes. Performed By: #### 17HYDP ## ## BLOSSOM Goodwin ([id number]) [facility] ([id number]) [address] [facility] [place] [address] PROGEST SERPL-MCNC Collected: 1:23 PM Status: F Source: [facility] TYPE CODE TESTS RESULT OUT OF RANGE REFERENCE UNITS LAB 2839-9(LOINC) Progest SerPl-mCnc 0.2 <1.4 NG/ML Result Comment: (NOTE) NORMAL MENSTRUATING FOLLICULAR PHASE <1.4 NG/ML LUTEAL PHASE 3.3-26.0 NG/ML MID LUTEAL PHASE 4.4-28.0 NG/ML POST-MENOPAUSAL FEMALES <0.7 NG/ML FEMALES FIRST TRIMESTER 11.0-45.0 NG/ML SECOND TRIMESTER 26.0-89.0 NG/ML THIRD TRIMESTER 46.0-423.0 NG/ML Performed By: #### 2839-9 ## ## PATY Mchugh ([id number]) [facility] ([id number]) [address] [place] [address] TESTOST SERPL-MCNC Collected: 1:23 PM Status: F Source: [facility] TYPE CODE TESTS RESULT OUT OF RANGE REFERENCE UNITS LAB 2986-8(LOINC) Testost SerPl-mCnc 48 14-76 NG/DL Performed By: #### 2986-8 ## ## PATY Mchugh ([id number]) [facility] ([id number]) [address] [place] [address] TSH SERPL-ACNC Collected: 1:23 PM Status: F Source: [facility] TYPE CODE TESTS RESULT OUT OF RANGE REFERENCE UNITS LAB 3016-3(LOINC) TSH SerPl-aCnc 0.974 0.400-4.500 MCIU/ML Performed By: #### 3016-3 ## ## PATY Mchugh ([id number]) [facility] ([id number]) [address] [place] [address] 17 HYDROXYPROGESTERONE Collected: 04/07 1:09 PM Status: F Source: [facility] TYPE CODE TESTS RESULT OUT OF RANGE REFERENCE UNITS LAB 1668-3(LOINC) 17OHP SerPl-mCnc Test Not Performed. 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 Performed By: #### 17HYDP ## ## PATY Mchugh ([id number]) , [place] PROGEST SERPL-MCNC Collected: 04/07/2024 1:09 PM Sta tus: F Source: [facility] TYPE CODE TESTS RESULT OUT OF RANGE REFERENCE UNITS LAB 2839-9(LOINC) Progest SerPl-mCnc Test Not Performed. 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 <1.4 NG/ML Performed By: #### 2839-9 ## ## PATY WAHLU Jeison ([id number]) , [facility] TESTOST SERPL-MCNC Collected: 04/07/2024 1:09 PM Sta tus: F Source: [facility] TYPE CODE TESTS RESULT OUT OF RANGE REFERENCE UNITS LAB 2986-8(LOINC) Testost SerPl-mCnc Test Not Performed. 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 14-76 NG/DL Performed By: #### 2986-8 ## ## PATY WAHLU Jeison ([id number]) , [facility] TSH SERPL-ACNC Collected: 1:09 PM Status: F Source: [facility] TYPE CODE TESTS RESULT OUT OF RANGE REFERENCE UNITS LAB 3016-3(LOINC) TSH SerPl-aCnc Test Not Performed. 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 0.400-4.500 MCIU/ML Performed By: #### 3016-3 ## ## PATY Mchugh ([id number]) , [facility] PROGRESS Observed: 04/07/2024 8:58 AM Status: COMPLETED Source: [facility] HNO ID: [id number] Author: NILTON ZHANG RN Service: ? Author [...] Zhang RN April 07, 2024 10:06 AM CNPN Observed: 04/07/2024 12:00 AM Status: COMPLETED Source: [facility] Telephone (REIBD) ALECRAYRAYTIN FERNANDES ([id number]) 1985 F Date Time Provider Department 04/07/24 TIFFANY GONZALEZ During your visit today, we recorded the following information about you: Greer Horton 04/07/2024 11:33 AM Signed Pt has ques on getting her labs done in [place] will they be stat Nely Cotton RN 04/08/2024 8:39 AM Signed Call to pt at cell number listed Pt states that she had blood drawn locally since she is on vacation and call about results. Reviewed we have not received them yet but will keep a look out. Pt states she has the results and will send them via [employer] Pt verbalized understanding Nely Cotton RN April 08, 2024 8:39 AM Allergies As of Date: 04/07/2024 Noted Allergy Reaction AMOXACILLIN (AMOXICILLIN) 03/09/2023 4 - Hives Comments: Skin test is negative. Challenge pending PENICILLINS 10/15/2020 4 - Hives Date Reviewed: 03/08/2024 Reviewed by: Kari Cain MA - Fully Assessed Reason for Visit: nilton pt has ques on getting her labs in [place] [Other] Prescriptions as of 04/08/2024 - ethynodiol [...] mouth two times a day. - Follitropin Keyon (GONAL-F RFF REDI-JECT) 300/0.5 unit/mL pnij Inject [...] Encounter Status:Closed by NELY COTTON on 04/08/24 PROGRESS Observed: 04/05/2024 4:34 PM Status: COMPLETED Source: [facility] HNO ID: [id number] Author: NILTON ZHANG RN Service: ? Author [...] Zhang RN April 05, 2024 4:39 PM PROGRESS Observed: 04/05/2024 9:29 AM Status: COMPLETED Source: [facility] HNO ID: [id number] Author: NILTON ZHANG RN Service: ? Author Type: Registered Nurse Type: Progress Notes Filed: 04/05/2024 16:08 Note Text: Progesterone and Hcg level from 04/04/[address] Joseph for review. Latest Ref Rng 04/04/2024 Progesterone See comment ng/mL 0.3 hCG Quantitative, Blood <5.0 mIU/mL <0.6 Nilton Zhang RN April 05, 2024 9:31 AM B-HCG SERPL-ACNC Collected: 4 8:03 AM Status: F Source: [facility] Order Comment: Specimen Type : BLOOD SPECIMEN Ordering Facility: [facility] Address: [address] [place] [address] TYPE CODE TESTS RESULT OUT OF RANGE REFERENCE UNITS LAB 57344-5(LOINC) B-HCG SerPl-aCnc <0.6 <5.0 mIU/mL Result Comment: Negative Performed By: #### 06430-1 # ### [facility] CLIA [id number] [address] [place] [address] [place] PROGEST SERPL-MCNC Collected: 8:03 AM Status: F Source: [facility] Order Comment: Specimen Type : BLOOD SPECIMEN Ordering Facility: [facility] Address: [address] [place] [address] TYPE CODE TESTS RESULT OUT OF RANGE REFERENCE UNITS LAB 2839-9(LOINC) Progest SerPl-mCnc 0.3 See comment ng/mL Result Comment: Menstrual Cy claudia Progesterone Reference Ranges: Follicular: <1.0 ng/mL Ovulation: <12.1 ng/mL Luteal: 1.8 to 23.9 ng/mL. Progesterone Reference Ranges vary by gestational period: First Trimester: 11.0 to 44.3 ng/mL Second Trimester: 25.4 to 83.3 ng/mL Third Trimester: 58.7 to 214 ng/mL Post menopausal Progesterone: <0.5 ng/mL Reference: 1. Progesterone (Progesterone III) [package insert V 1.0 [place]]. [employer] [facility], [place], [place]. June 2015. Performed By: #### 2839-9 ## ## [facility] CLIA [id number] [address] [place] [address] [place] PROGRESS Observed: 04/01/2024 3:29 PM Status: COMPLETED Source: [facility] HNO ID: [id number] Author: NILTON ZHANG, LAUREN Service: ? Author Type: Registered Nurse Type: [...] Zhang RN April 01, 2024 3:52 PM CNPN Observed: 03/30/2024 12:00 AM Status: COMPLETED Source: [facility] Telephone (REIBD) TIN ARIZMENDI ([id number]) 1985 F Date Time Provider Department 03/30/24 [...] RN March 31, 2024 2:50 PM Guerline Sotomayorndra 04/01/2024 3:13 PM Signed Pt would like [...] mouth two times a day. - Follitropin Keyon (GONAL-F RFF REDI-JECT) 300/0.5 unit/mL pnij Inject [...] Encounter Status:Closed by NILTON ZHANG on 03/31/24 NAVIN Observed: 03/22/2024 12:00 AM Status: COMPLETED Source: [facility] Telephone (REIBD) TIN ARIZMENDI ([id number]) 1985 F Date Time Provider Department 03/22/24 SELF REIBD During your visit today, we recorded the following information about you: Ana Sotomayor 03/22/2024 1:31 PM Signed Pt had sis [...] Fully Assessed Reason for Visit: Patient Question [0287] Order(s):ethynodiol diacetate-ethinyl estradiol 1 mg-35 mcg (ZOVIA [...] mouth two times a day. - Follitropin Keyon (GONAL-F RFF REDI-JECT) 300/0.5 unit/mL pnij Inject [...] Encounter Status:Closed by LOTUS VIDES on 03/23/24 PROCEDURE Observed: 03/08/2024 2:25 PM Status: COMPLETED Source: [facility] ID: [id number] Author: PEPE POPE MD Service: ? Author Type: Physician Type: Procedures Filed: 03/08/2024 14:27 Note Text: COLPOSCOPY PROCEDURE Date/Time: 03/08/2024 2:25 PM Performed by: Pepe Pope MD Authorized by: Pepe Pope MD Indication: HPV + Diagnosis: (R87.810) Cervical high risk HPV (human papillomavirus) test positive (primary encounter diagnosis) Patient's last menstrual period was 08/16/2023 (approximate). Informed Consent Consent Obtained: Written [place] Protocol SIGN IN Patient/Surrogate Stated/Verified: Patient name, Date of , Relevant allergies and Intended procedure TIME OUT Intended patient and procedure match the source document(s). Consent documented and matches the intended procedure. Relevant labs, photos, and/or imaging studies have been reviewed. Pre-Procedure Details: Pre-meds: None Local anesthetic: None Procedure Details: Procedure: Colposcopy of Vagina including Cervix [place] speculum was placed in the vagina. Acetic [...] quit smoking in October. Pepe Pope MD CNOV Observed: 03/08/2024 2:00 PM Status: COMPLETED Source: [facility] Office Visit (OBGA) TIN ARIZMENDI ([id number]) 1985 F Date Time Provider Department 03/08/24 2:00 PM [facility] During your visit today, we [...] 08/16/2023 (approximate). Informed Consent Consent Obtained: Written [place] Protocol SIGN IN Patient/Surrogate Stated/Verified: Patient name, Date of , Relevant allergies and Intended procedure TIME OUT Intended patient and procedure match the source document(s). Consent documented and matches the intended procedure. Relevant labs, photos, and/or imaging studies have been reviewed. Pre-Procedure Details: Pre-meds: None Local anesthetic: None Procedure Details: Procedure: Colposcopy of Vagina including Cervix [place] speculum was placed in the vagina. Acetic [...] Pepe Pope MD Referring Provider: PEPE POPE [[id number]] Allergies As of Date: 03/08/2024 Noted Allergy Reaction AMOXACILLIN (AMOXICILLIN) 03/09/2023 4 - Hives Comments: Skin test is negative. Challenge pending PENICILLINS 10/15/2020 4 - Hives Date Reviewed: 03/08/2024 Reviewed by: Kari Cain MA - Fully Assessed Reason for Visit: Colposcopy [1551] Primary Visit Diagnosis:Cervical high risk HPV (human papillomavirus) test positive [R87.810] Order(s):UA DIP,URINE HCG (POC) [2669704] Order #: [id number]. #:[id number] [PRO96] Order #: [id number] Prescriptions as of 03/08/2024 - PNV no.95/ferrous fum/folic ac ( ORAL) Take by mouth. - medroxyPROGESTERone (PROVERA) 10 mg tablet Take 1 tablet by mouth two times a day. - letrozole (FEMARA) 2.5 mg tablet Take 4 tablets by mouth once daily. - metFORMIN (GLUCOPHAGE) 850 mg tablet Take 1 tablet by mouth two times a day. - Follitropin Keyon (GONAL-F RFF REDI-JECT) 300/0.5 unit/mL pnij Inject [...] for Encounter Date Provider Department Center 03/08/2024 [id number], PHILIP*[facility] Encounter Status:Closed by PEPE POPE on 03/08/24 CNPN Observed: 03/07/2024 12:00 AM Status: COMPLETED Source: [facility] Telephone (REIBD) TIN ARIZMENDI ([id number]) 1985 F Date Time Provider Department 03/07/24 MICHEL JOSEPH During your visit today, we recorded the following information about you: Neil LatoyaGreer 03/07/2024 12:12 PM Signed Pt wants to discuss her period coming and going Sillupayal Rukhsana Klein 03/08/2024 3:23 PM Signed Cycle just lasted 1 day, brown then and pink yesterday very light. Should she take provera or should she count this as her cycle for super ov cycle, please follow up with patient. Lotus Vides, LAUREN 03/09/2024 10:00 AM Signed Called pt by [...] mouth two times a day. - Follitropin Keyon (GONAL-F RFF REDI-JECT) 300/0.5 unit/mL pnij Inject [...] Encounter Status:Closed by LOTUS VIDES on 03/09/24 Observed: 02/24/2024 11:31 AM Status: COMPLETED Source: [facility] ID: [id number] Author: MICHEL JOSEPH MD Service: ? Author Type: Physician Type: Filed: 02/24/2024 11:33 Note Text: ASSESSMENT AND PLAN Tin Arizmendi is a 38 year old female with PCOS Extensive counseling today as I assume care of this patient from Dr Oh. I counseled on diagnosis, risks, and treatment [...] have included some information about IVF below. PROGRESS Observed: 02/23/2024 3:33 PM Status: COMPLETED Source: [facility] ID: [id number] Author: MICHEL JOSEPH MD Service: ? Author Type: Physician Type: Progress Notes Filed: 02/24/2024 11:33 Note Text: REPRODUCTIVE ENDOCRINOLOGY AND INFERTILITY RETURN PATIENT CLINIC NOTE SERVICE DATE: 02/23/2024 SERVICE TIME: 3:33 PM NAME: Tin Arizmendi FERTILITY HISTORY 38yo [id number] with PCOS, BMI 44.77 Note copied from prior visit dated 12/02/[address] Oh Provera 10 mg X 10 days to [...] (Z31.41) Fertility testing Plan: SONOHYSTEROGRAPHY (SIS) [facility] Extensive counseling today as I assume care of this patient from Dr Oh. I counseled on diagnosis, risks, and treatment [...] and assessment as noted. Michel Joseph MD CNOV Observed: 02/23/2024 3:00 PM Status: COMPLETED Source: [facility] Office Visit (REIMN) TIN ARIZMENDI ([id number]) 1985 F Date Time Provider Department 02/23/24 3:00 PM MICHEL JOSEPH During your visit today, we recorded the following information about you: Blood pressure Weight Height 124/82 118.3 kg 1.626 m Michel Joseph MD 02/24/2024 11:33 AM Signed REPRODUCTIVE ENDOCRINOLOGY AND INFERTILITY RETURN PATIENT CLINIC NOTE SERVICE DATE: 02/23/2024 SERVICE TIME: 3:33 PM NAME: Tin Arizmendi FERTILITY HISTORY 38yo [id number] with PCOS, BMI 44.77 Note copied from prior visit dated 12/02/[address] Oh Provera 10 mg X 10 days to [...] assume care of this patient from Dr Oh. I counseled on diagnosis, risks, and treatment [...] pricing and financing. Please call the office [phone] to set up an appointment if you [...] freezer. Success rates based on age (from [facility] website, [facility] data = Clinic ; accessed 03/05/23): [...] an update on embryos Day 5-6 embryos ?blastocysts?- ~30-65% chance of /live per embryo depending [...] later Continue progesterone until 8-10 weeks of Michel Joseph MD 02/24/2024 11:33 AM Signed ASSESSMENT AND PLAN Tin Arizmendi is a 38 year old female with PCOS Extensive counseling today as I assume care of this patient from Dr Oh. I counseled on diagnosis, risks, and treatment [...] have included some information about IVF below. Referring Provider: SELF [200] Allergies As of Date: 02/23/2024 Noted Allergy Reaction AMOXACILLIN (AMOXICILLIN) 03/09/2023 4 - Hives Comments: Skin test is negative. Challenge pending PENICILLINS 10/15/2020 4 - Hives Date Reviewed: 02/23/2024 Reviewed by: Danyell Leger RN - Fully Assessed Reason for Visit: Consult [173] Primary Visit Diagnosis:Androgen excess [E28.1] Other Visit Diagnosis:Fertility testing [Z31.41] Order(s):TESTOSTERONE, TOTAL [SQTESTO] Order #: [id number] FUTURE THYROID STIMULATING HORMONE [SQTSH] Order #: [id number] FUTURE PROGESTERONE [SQPROG] Order #: [id number] FUTURE HYDROXYPROGESTERONE-17 [SQHPROG] Order #: [id number] FUTURE SONOHYSTEROGRAPHY (SIS) [facility] [5236997] Order #: [id number]: 1 FUTURE medroxyPROGESTERone (PROVERA) 10 mg tabletTake 1 tablet by mouth two times a day.Disp: 14 tabletRfl: 0 Prescriptions as of 02/24/2024 - PNV no.95/ferrous fum/folic ac ( ORAL) Take by mouth. - medroxyPROGESTERone (PROVERA) 10 mg tablet Take 1 tablet by mouth two times a day. - letrozole (FEMARA) 2.5 mg tablet Take 4 tablets by mouth once daily. - metFORMIN (GLUCOPHAGE) 850 mg tablet Take 1 tablet by mouth two times a day. - Follitropin Keyon (GONAL-F RFF REDI-JECT) 300/0.5 unit/mL pnij Inject [...] once daily. Problem List As Of Date 02/23/2024 Noted Resolved High blood pressure [I10] 10/16/2021 Pre-op exam [Z01.818] 10/30/2023 Class 3 severe obesity due to excess calories w*10/30/2023 Missed [O02.1] 10/30/2023 Other instructions from your clinician: Next immediate steps: Take provera (double dose) [...] pricing and financing. Please call the office [phone] to set up an appointment if you [...] freezer. Success rates based on age (from [facility] website, [facility] data = Clinic ; accessed 03/05/23): [...] an update on embryos Day 5-6 embryos ?blastocysts?- ~30-65% chance of /live per embryo depending [...] later Continue progesterone until 8-10 weeks of Prescriptions ordered this encounter Disp Refills Start End MEDROXYPROGESTERONE 10 MG TABLET 14 t* 0 02/23/2024 Route: ORAL Sig: Take 1 tablet by mouth two times a day. Medications Discontinued During This Encounter Prescriptions - medroxyPROGESTERone (PROVERA) 10 mg tablet (Discontinued) Take 1 tablet by mouth once daily. Encounter Status:Closed by MICHEL JOSEPH on 02/24/24 NAVIN Observed: 02/12/2024 12:00 AM Status: COMPLETED Source: [facility] Telephone (OBIMASTE) ALECTIN SANOTS ([id number]) 1985 F Date Time Provider Department 02/12/24 PEPE POPE During your visit today, we recorded the following information about you: Cee Cunha RN 02/12/2024 4:15 PM Signed ----- Message from Pepe Pope MD sent at 02/08/2024 4:34 PM EDT ----- Needs colposcopy Cee Cunha RN 02/12/2024 4:16 PM Signed Called [...] patient and LVM. Also sent patient a [employer] message. Postponing to ensure scheduling. Roxanna May 02/16/2024 10:41 AM Signed 2nd attempt at calling patient and LVM. Also sent [employer] message. Allergies As of Date: 02/12/2024 Noted [...] mouth two times a day. - Follitropin Keyon (GONAL-F RFF REDI-JECT) 300/0.5 unit/mL pnij Inject [...] Encounter Status:Closed by CEE CUNHA on 02/15/24 SERUM B HCG,3RD I.S. Collected: 024 10:53 AM Status: COMPLETED Source: [facility] TYPE CODE TESTS RESULT OUT OF RANGE REFERENCE UNITS LAB HCG(LOINC) SERUM B HCG,3RD I.S. <5 mIU/mL Result Comment: NEW REFERENC E RANGE WEEKS (SINCE LMP) MIU/mL 3 WEEKS [...] trophoblastic or nontrophoblastic neoplasms. Performed By: #### 58267-9 # ### [facility] ([id number]) [address] [facility] [place] [address] NAVIN Observed: 02/05/2024 12:00 AM Status: COMPLETED Source: [facility] Telephone (REIBD) TIN ARIZMENDI ([id number]) 1985 F Date Time Provider Department 02/05/24 [...] Gardner RN February 05, 2024 10:04 AM aNm Arias RN 02/05/2024 3:32 PM Signed Called patient to report negative HCG level. Patient expressed frustration with needing another consult after just meeting with Dr. Oh. Responded with heart and listened to patient [...] testing [Z31.41] Order(s):HCG QUANTITATIVE [SQHCGQT] Order #: [id number] FUTURE Prescriptions as of 02/05/2024 - medroxyPROGESTERone (PROVERA) 10 mg tablet Take 1 tablet by mouth once daily. - letrozole (FEMARA) 2.5 mg tablet Take 4 tablets by mouth once daily. - metFORMIN (GLUCOPHAGE) 850 mg tablet Take 1 tablet by mouth two times a day. - Follitropin Keyon (GONAL-F RFF REDI-JECT) 300/0.5 unit/mL pnij Inject [...] Encounter Status:Closed by LEONEL CABEZAS on 02/05/24 ALLERGIES DATE TYPE / CODE NAME / CODE REACTION SEVERITY SOURCE 03/09/2023 DRUG INGREDI/[id number](SN OMED CT) AMOXICILLIN [facility] 10/15/2020 Drug Class/[id number](SNOM ED CT) PENICILLINS [facility] 08/27/2017 DRUG INGREDI/[id number](SN OMED CT) AMOXICILLIN [facility] 08/27/2017 Drug Class/174473859(SNOM ED CT) PENICILLINS [facility] ENCOUNTERS ADMIT/DISCHARGE ACCOUNT NUMBER ADMITTING ENCOUNTER CLASS LOCATION SOURCE 02/02/2025/02/03/20 25 [id number] Ambulatory Building:NOM S BCP OB [facility] EPIC 01/24/2025/01/25/20 25 [id number] [facility] 01/10/2025/01/11/20 [id number] Ambulatory Building:NOM S FNR OB [facility] EPIC 01/09/2025/01/10/20 25 [id number] [facility] 01/09/2025/01/10/20 25 [id number] Ambulatory [facility] 12/30/2024/12/31/19 25 [id number] [facility] 12/16/2024/12/17/19 25 [id number] Ambulatory [facility] [place] 12/14/2024/12/15/19 25 [id number] Ambulatory [facility] HospitalBu[facility] ding:[facility] 12/12/2024/12/13/19 25 [id number] Ambulatory [facility]Buil ding:[facility] 12/06/2024/12/07/19 25 [id number] Ambulatory Buildin 80 [facility] 11/25/2024/11/26/19 25 [id number] Ambulatory [facility]Buil ding:[facility] 11/25/2024/11/26/19 25 [id number] [facility] [place] [facility] 11/24/2024/11/25/19 25 [id number] [facility]24/11/25/19 25 [id number] [facility] [place] [facility] 11/22/2024/11/23/19 25 [id number] Ambulatory Building:PFM _LAB [facility] 11/22/2024/11/23/19 25 [id number] Ambulatory Buildin 80 [facility] 11/21/2024/11/22/19 25 [id number] Ambulatory [facility] ding:[facility] 11/21/2024/11/22/19 25 [id number] [facility]ulatory [place] [facility] 11/14/2024/11/15/19 25 [id number] Ambulatory [facility] ding:[facility] 11/14/2024/11/15/19 25 [id number] [facility] [place] [facility] 11/08/2024/11/08/19 25 [id number] [facility] 11/08/2024/11/08/19 25 [id number] Ambulatory Buildin 94 [facility] 10/23/2024/10/23/19 25 [id number] Ambulatory [facility] HospitalBuil ding:[facility] 10/23/2024/10/23/19 25 [id number] Ambulatory [facility] ding:[facility] 10/21/2024/10/21/19 25 [id number] Ambulatory [facility] HospitalBu[facility] ding:[facility] 10/21/2024/10/21/19 25 [id number] [facility] [place] [facility] 10/19/2024/10/19/19 25 [id number] Ambulatory [facility] HospitalBuil ding:[facility] 10/19/2024/10/19/19 25 [id number] [facility] [place] [facility] 10/12/2024/10/12/19 25 [id number] Ambulatory [facility] ding:[facility] 10/12/2024/10/12/19 25 [id number] [facility] [place] [facility] 10/07/2024/10/07/19 25 [id number] Ambulatory Buildin 94 [facility] 09/21/2024/09/21/19 25 [id number] Ambulatory [facility] ding:[facility] 09/20/2024/09/20/19 25 [id number] Ambulatory [place] [facility] 09/20/2024/09/20/19 25 [id number] Ambulatory [facility] 09/19/2024/09/19/19 25 [id number] Ambulatory [facility] ding:[facility] 09/19/2024/09/19/19 25 [id number] [facility] [place] [facility] 09/15/2024/09/15/19 25 [id number] Ambulatory [facility] 09/15/2024/09/15/19 25 [id number] [facility] [place] [facility] 09/12/2024/09/12/20 24 [id number] Ambulatory [place] [facility] 09/12/2024/09/12/20 24 [id number] Ambulatory [facility] 08/17/2024/08/17/20 24 [id number] [facility] 08/17/2024/08/17/20 24 [id number] Ambulatory [facility] ding:[facility] 08/15/2024/08/15/20 24 [id number] [facility] [place] [facility] 08/15/2024/08/15/20 24 [id number] Ambulatory [facility] HospitalBu[facility] ding:[facility] 08/10/2024/08/10/20 24 [id number] Ambulatory [facility] HospitalBuil ding:[facility] 08/10/2024/08/10/20 24 [id number] [facility] [place] [facility] 07/18/2024/07/18/20 24 [id number] Ambulatory [facility] HospitalBuil ding:[facility] 07/18/2024/07/18/20 24 [id number] Ambulatory [place] [facility] 07/14/2024/07/14/20 24 [id number] Ambulatory [facility] HospitalBuil ding:[facility] 07/14/2024/07/14/20 24 [id number] [facility]ulatory [place] [facility] 07/07/2024/07/07/20 24 [id number] Ambulatory [facility]Buil ding:[facility] 07/07/2024/07/07/20 24 [id number] [facility]ulatory [place] [facility] 07/06/2024/07/06/20 24 [id number] [address] [place] [address] Ambulatory [facility] 06/15/2024/06/15/20 24 [id number] Ambulatory [facility]Bu[facility] ding:[facility] 06/15/2024/06/15/20 24 [id number] Ambulatory [place] [facility] 06/13/2024/06/13/20 24 [id number] Ambulatory [facility] ding:[facility] 06/13/2024/06/13/20 24 [id number] [facility] [place] [facility] 06/10/2024/06/10/20 24 [id number] Ambulatory [place] [facility] 06/10/2024/06/10/20 24 [id number] Ambulatory [facility]Buil ding:[facility] 06/06/2024/06/06/20 24 [id number] Ambulatory [facility] HospitalBuil ding:[facility] 06/06/2024/06/06/20 24 [id number] Amb[facility] [place] [facility] 06/03/2024/06/03/20 24 [id number] Ambulatory [facility] HospitalBuil ding:[facility] 06/03/2024/06/03/20 24 [id number] Ambulatory [place] [facility] 05/27/2024/05/27/20 24 [id number] Ambulatory [facility] HospitalBuil ding:[facility] 05/27/2024/05/27/20 24 [id number] Ambulatory [place] [facility] 05/13/2024/05/13/20 24 [id number] Ambulatory [facility] HospitalBuil ding:[facility] 04/29/2024/04/29/20 24 [id number] Ambulatory [facility] HospitalBuil ding:[facility] 04/15/2024/04/15/20 24 [id number] Ambulatory [facility] HospitalBuil ding:[facility] 04/15/2024/04/15/20 24 [id number] [facility] [place] [facility] 04/04/2024/04/04/20 24 [id number] Ambulatory [facility] HospitalBuil ding:[facility] 03/08/2024/03/08/20 24 [id number] [facility]02/[facility]03/02/20 24 [id number] Ambulatory Buildin A [facility] 02/23/2024/02/23/20 24 [id number] Ambulatory [facility] HospitalBuil ding:OB[facility] 02/05/2024/02/05/20 24 [id number] Ambulatory Building:PFM _LAB [facility] PAYERS ENCOUNTER GUARANTOR PAYER SUBSCRIBER SOURCE 02/02/2025 TIN CARABALLO: [id number] [place] [address]Zld: (hp) Primary Insurance:MEDICAL MUTUALPolicy Number: [id number] Date:2022-09-14 TIN CARABALLO: [id number] [place] [address] [facility] EPIC 01/24/2025 Tin Segura [id number] [facility], [place] [address]Loy: (HP) Primary Insurance:Self PayPolicy Number: Effective Date:2025-01-24 [facility] 01/10/2025 TIN Segura FARIDAB: [address] [place] [address]Jqb: (HP) Primary Insurance:MEDICAL MUTUALPolicy Number: [id number] Date:2022-09-14 TIN Segura FARIDAB: [id number] [place] [address] [facility] 01/09/2025 Primary Insuranc e:MMO SUPERMED PPOPolicy Number: [id number] Date:5634-06-39Drte Name:Cristina CASTLE FARIDAB: [id number] [place] [address] [facility] 01/09/2025 Primary Insuranc e:MMO SUPERMED PPOPolicy Number: [id number] Date:4715-28-64Enep Name:Cristina CASTLE FARIDAB: [id number] [facility] [address] [facility] 12/30/2024 Primary Insuranc e:MMO SUPERMED PPOPolicy Number: [id number] Date:3335-92-72Mayw Name:Cristina CASTLE FARIDAB: [id number] [address] [facility] [address] [facility] 12/16/2024 Primary Insuranc e:MMO SUPERMED PPOPolicy Number: [id number] Date:6523-01-69Hwat Name:Cristina CASTLE FARIDAB: [id number] [address] [facility] [place] [address] [facility] 12/14/2024 Primary Insuranc e:MMO SUPERMED PPOPolicy Number: [id number] Date:3895-99-61Btuo Name:Cristina ARIZMENDIB: [id number] [address] [address] [facility] 12/12/2024 Primary Insuranc e:MMO SUPERMED PPOPolicy Number: [id number] Date:3531-49-04Svqm Name:Cristina CARLSONRAYRAYDENAB: [id number] [place] [address] [facility] 12/06/2024 TIN PACHECO FARIDAB: [address] [place] [address]Oee: () Primary Insurance:MMO SUPERMEDPolicy Number: [id number] Date:2019-09-14 TIN PACHECO FARIDAB: [id number] [place], [place] [address]Wka: (HP) () [facility] 11/25/2024 Primary Insuranc e:MMO SUPERMED PPOPolicy Number: [id number] Date:8511-12-76Qjwz Name:Cristina CARLSONRAYRAYDENAB: [id number] [place] [address] [facility] 11/25/2024 Primary Insuranc e:MMO SUPERMED PPOPolicy Number: [id number] Date:1212-44-44Vgzm Name:Cristina CARLSONRAYRAYDENAB: [id number] [place] [address] [facility] 11/24/2024 Primary Insuranc e:MMO SUPERMED PPOPolicy Number: [id number] Date:7246-74-63Abvr Name:Cristina CARLSONYSABELB: [id number] [place] [address] [facility] 11/24/2024 Primary Insuranc e:MMO SUPERMED PPOPolicy Number: [id number] Date:8817-27-25Yswy Name:Cristina CARLSONCORI: [id number] [place] [address] [facility] 11/22/2024 TIN PACHECO FARIDAB: [address] [facility] [address]Uik: (HP) Primary Insurance:MMO SUPERMEDPolicy Number: [id number] Date:2019-09-14 TIN PACHECO FARIDAB: [id number] [address] [facility] [place] [address]Ukz: (HP) (WP) [facility] 11/22/2024 TIN PACHECO FARIDAB: [address] [place] [place] [address]Qqd: (HP) Primary Insurance:MMO SUPERMEDPolicy Number: [id number] Date:2019-09-14 TIN PACHECO FARIDAB: [id number] [address] [facility] [place] [address]Rbq: (HP) () [facility] 11/21/2024 Primary Insuranc e:MMO SUPERMED PPOPolicy Number: [id number] Date:1389-83-09Pkqv Name:Cristina [place]ST[place] FARIDAB: [id number] [address] [place] [address] [facility] 11/21/2024 Primary Insuranc e:MMO SUPERMED PPOPolicy Number: [id number] Date:0247-84-53Cgdj Name:Cristina CARLSONCORI: [id number] [place] [address] [facility] 11/14/2024 Primary Insuranc e:MMO SUPERMED PPOPolicy Number: [id number] Date:7827-78-22Hvft Name:Cristina CARLSONRAYRAYDENAB: [id number] [address] [place] [place] [address] [facility] 11/14/2024 Primary Insuranc e:MMO SUPERMED PPOPolicy Number: [id number] Date:9228-44-83Skht Name:Cristina CARLSONRAYRAYDENAHE: [id number] [place] [address] [facility] 11/08/2024 TIN PACHECO FARIDAB: [address] [facility] [address]Xzs: (HP) Primary Insurance:MMO SUPERMEDPolicy Number: [id number] Date:2019-09-14 TIN CARLSONYSABELB: [id number] [facility] [facility] [place], [place] [address]Jnk: (HP) () [facility] 11/08/2024 TIN PACHECO FARIDAB: [address] [facility] [place] [place] [address]Eub: (HP) Primary Insurance:MMO SUPERMEDPolicy Number: [id number] Date:2019-09-14 TIN PACHECO FARIDAB: [id number] [address] [facility] [place] [place] [address]Gtc: (HP) () [facility] 10/23/2024 Primary Insuranc e:MMO SUPERMED PPOPolicy Number: [id number] Date:1938-64-42Rirx Name:Cristina CARLSONRAYRAYDENAHE: [id number] [address] [facility] 10/23/2024 Primary Insuranc e:MMO SUPERMED PPOPolicy Number: [id number] Date:5142-01-30Ppfp Name:Cristina CARLSONYSABELB: [id number] [place] [place] [address] [facility] 10/21/2024 Primary Insuranc e:MMO SUPERMED PPOPolicy Number: [id number] Date:1829-96-30Qdgw Name:Cristina ARIZMENDIB: [id number] N [facility] [place] [address] [facility] 10/21/2024 Primary Insuranc e:MMO SUPERMED PPOPolicy Number: [id number] Date:6784-33-88Hhcg Name:Cristina CARLSONRAYRAYDENAB: [id number] [address] [facility] [place], [place] [address] [place] [address] 10/19/2024 Primary Insuranc e:MMO SUPERMED PPOPolicy Number: [id number] Date:5922-98-00Uvpb Name:Cristina CASTLE FARIDAB: [id number] [address] [facility] [place], [place] [address] [place] [address] 10/19/2024 Primary Insuranc e:MMO SUPERMED PPOPolicy Number: [id number] Date:8418-86-02Feon Name:Cristina CASTLE FARIDAB: [id number] [place], [place] [address] [place] [address] 10/12/2024 Primary Insuranc e:MMO SUPERMED PPOPolicy Number: [id number] Date:2969-13-59Nkmh Name:Cristina CARLSONYSABELB: [id number] [address] [facility] [address] [facility] 10/12/2024 Primary Insuranc e:MMO SUPERMED PPOPolicy Number: [id number] Date:1142-76-01Yzlm Name:Cristina CARLSONCORI: [id number] [place], [place] [address] [place] [address] 10/07/2024 TIN SEVERINOShaka IQBALB: N [place] [address]Tel: () Primary Insurance:MMO SUPERMEDPolicy Number: [id number] Date:2019-09-14 TIN CARLSONRAYRAYDENAB: [id number] [place], [place] [address]Waa: (HP) (WP) [facility] 09/21/2024 Primary Insuranc e:MMO SUPERMED PPOPolicy Number: [id number] Date:6304-85-81Kyho Name:Cristina CARLSONYSABELB: [id number] [place], [place] [address] [place] [address] 09/20/2024 Primary Insuranc e:MMO SUPERMED PPOPolicy Number: [id number] Date:3122-50-92Zlsk Name:Cristina CASTLE FARIDAB: [id number] 09/20/2024 Primary Insuranc e:MMO SUPERMED PPOPolicy Number: [id number] Date:7202-36-23Gpci Name:Cristina CASTLE FARIDAB: [id number] 09/19/2024 Primary Insuranc e:MMO SUPERMED PPOPolicy Number: [id number] Date:5325-80-10Taql Name:Cristina CASTLE FARIDAB: [id number] [place] [address] [facility] 09/19/2024 Primary Insuranc e:MMO SUPERMED PPOPolicy Number: [id number] Date:3761-08-81Ioty Name:Cristina CASTLE FARIDAB: [id number] [address] 09/15/2024 Primary Insuranc e:MMO SUPERMED PPOPolicy Number: [id number] Date:7092-92-59Vvpg Name:Cristina CASTLE FARIDAB: [id number] [address] 09/15/2024 Primary Insuranc e:MMO SUPERMED PPOPolicy Number: [id number] Date:5023-67-84Dgya Name:Cristina CARLSONRAYRAYDENAB: [id number] [place] [address] [facility] 09/12/2024 Primary Insuranc e:MMO SUPERMED PPOPolicy Number: [id number] Date:1178-09-43Amda Name:Cristina CARLSONYSABELB: [id number] [place] [address] [facility] 09/12/2024 Primary Insuranc e:MMO SUPERMED PPOPolicy Number: [id number] Date:0305-82-71Zpdi Name:Cristina CARLSONYSABELB: [id number] [place] [address] [facility] 08/17/2024 Primary Insuranc e:MMO SUPERMED PPOPolicy Number: [id number] Date:3877-85-43Tyrt Name:Cristina [place] FARIDAB: [id number] [place], [place] [address] [place] [address] 08/17/2024 Primary Insuranc e:MMO SUPERMED PPOPolicy Number: [id number] Date:1153-26-26Mrhw Name:Cristina CARLSONYSABELB: [id number] [place] [address] [facility] 08/15/2024 Primary Insuranc e:MMO SUPERMED PPOPolicy Number: [id number] Date:6442-85-08Ifuk Name:Cristina CARLSONRAYRAYDENAB: [id number] [place] [address] [facility] 08/15/2024 Primary Insuranc e:MMO SUPERMED PPOPolicy Number: [id number] Date:0049-97-31Junk Name:Cristina [place] FARIDAB: [id number] [place] [address] [facility] 08/10/2024 Primary Insuranc e:MMO SUPERMED PPOPolicy Number: [id number] Date:1890-69-17Vhcv Name:Cristina ARIZMENDIB: [id number] [place] [address] [facility] 08/10/2024 Primary Insuranc e:MMO SUPERMED PPOPolicy Number: [id number] Date:1170-41-66Teyh Name:Cristina ARIZMENDIB: [id number] [place] [address] [facility] 07/18/2024 Primary Insuranc e:MMO SUPERMED PPOPolicy Number: [id number] Date:1162-30-51Dfrq Name:Cristina CARLSONRAYRAYDENAB: [id number] [place] [address] [facility] 07/18/2024 Primary Insuranc e:MMO SUPERMED PPOPolicy Number: [id number] Date:6193-24-87Rnpp Name:Cristina CARLSONRAYRAYDENAB: [id number] [place], [place] [address] [place] [address] 07/14/2024 Primary Insuranc e:MMO SUPERMED PPOPolicy Number: [id number] Date:3781-64-58Xiri Name:Cristina CARLSONRAYRAYDENAB: [id number] [place] [address] [facility] 07/14/2024 Primary Insuranc e:MMO SUPERMED PPOPolicy Number: [id number] Date:8840-90-73Smjx Name:Cristina CARLSONRAYRAYDENAB: [id number] [place] [address] [facility] 07/07/2024 Primary Insuranc e:MMO SUPERMED PPOPolicy Number: [id number] Date:5358-45-36Ccxi Name:Cristina CARLSONRAYRAYDENAB: [id number] [place] [address] [facility] 07/07/2024 Primary Insuranc e:MMO SUPERMED PPOPolicy Number: [id number] Date:1172-33-38Rgyq Name:Cristina CARLSONCORI: [id number] [place] [address] [facility] 07/06/2024 TIN PACHECO FARIDAB: [address] [place] [address]Imj: (HP) Primary Insurance:MMO SUPERMEDPolicy Number: [id number] Date:2019-09-14 TIN PACHECO FARIDAB: [id number] [place], [place] [address]Jrz: (HP) () [facility] 06/15/2024 Primary Insuranc e:MMO SUPERMED PPOPolicy Number: [id number] Date:7072-74-81Apwb Name:Cristina [place]ST[place] FARIDAB: [id number] [place] [address] [facility] 06/15/2024 Primary Insuranc e:MMO SUPERMED PPOPolicy Number: [id number] Date:3953-40-12Dqrq Name:Cristina CASTLE FARIDAB: [id number] [place] [address] [facility] 06/13/2024 Primary Insuranc e:MMO SUPERMED PPOPolicy Number: [id number] Date:9461-69-32Toom Name:Cristina CASTLE FARIDAB: [id number] [place] [address] [facility] 06/13/2024 Primary Insuranc e:MMO SUPERMED PPOPolicy Number: [id number] Date:0123-68-50Wyzj Name:Cristina CASTLE ILYA: [id number] [place] [address] [facility] 06/10/2024 Primary Insuranc e:MMO SUPERMED PPOPolicy Number: [id number] Date:2288-67-81Sfpr Name:Cristina ARIZMENDIB: [id number] [place] [address] [facility] 06/10/2024 Primary Insuranc e:MMO SUPERMED PPOPolicy Number: [id number] Date:4296-80-51Rvdg Name:Cristina ARIZMENDIB: [id number] [place] [address] [facility] 06/06/2024 Primary Insuranc e:MMO SUPERMED PPOPolicy Number: [id number] Date:6489-11-02Dmcc Name:Cristina CARLSONRAYRAYDENAHE: [id number] 06/06/2024 Primary Insuranc e:MMO SUPERMED PPOPolicy Number: [id number] Date:1131-96-82Vfrz Name:Cristina CARLSONRAYRAYDENAB: [id number] 06/03/2024 Primary Insuranc e:MMO SUPERMED PPOPolicy Number: [id number] Date:7528-96-91Kbsn Name:Cristina ARIZMENDIB: [id number] [place], [place] [address] [place] [address] 06/03/2024 Primary Insuranc e:MMO SUPERMED PPOPolicy Number: [id number] Date:3193-55-00Mtrb Name:Cristina ARIZMENDIB: [id number] 05/27/2024 Primary Insuranc e:MMO SUPERMED PPOPolicy Number: [id number] Date:7061-03-05Irro Name:Cristina ARIZMENDIB: [id number] [place] [address] [facility] 05/27/2024 Primary Insuranc e:MMO SUPERMED PPOPolicy Number: [id number] Date:3359-28-24Mcwa Name:Cristina [place] FARIDAB: [id number] [place] [address] [facility] 05/13/2024 Primary Insuranc e:MMO SUPERMED PPOPolicy Number: [id number] Date:5838-89-46Euri Name:Cristina CASTLE FARIDAB: [id number] [place] [address] [facility] 04/29/2024 Primary Insuranc e:MMO SUPERMED PPOPolicy Number: [id number] Date:6837-10-51Fxcc Name:Cristina CASTLE FARIDAB: [id number] [place] [address] [facility] 04/15/2024 Primary Insuranc e:MMO SUPERMED PPOPolicy Number: [id number] Date:1663-70-19Wmmv Name:Cristina [place] FARIDAB: [id number] [place] [address] [facility] 04/15/2024 Primary Insuranc e:MMO SUPERMED PPOPolicy Number: [id number] Date:1079-17-98Nbsu Name:Cristina [place] FARIDAB: [id number] [place] [address] [facility] 04/04/2024 Primary Insuranc e:MMO SUPERMED PPOPolicy Number: [id number] Date:0372-03-52Aiae Name:Cristina [place]LE FARIDAB: [id number] [place] [address] [facility] 03/08/2024 Primary Insuranc e:MMO SUPERMED PPOPolicy Number: [id number] Date:0209-90-50Mxgr Name:Cristina CASTLE FARIDAB: [id number] [place] [address] [facility] 03/02/2024 TIN IQBALB: [address] [place] [place] [address]Iuy: (HP) Primary Insurance:MMO SUPERMEDPolicy Number: [id number] Date:2019-09-14 TIN PACHECO FARIDAB: [id number] [place] [address]Zwc: (HP) (WP) [facility] 02/23/2024 Primary Insuranc e:MMO SUPERMED PPOPolicy Number: [id number] Date:7403-92-65Mwwf Name:Cristina [place] ILYA: [id number] [place] [address] [facility] 02/05/2024 TIN PACHECO ILYA: [address] [place] [address]Ldh: (HP) Primary Insurance:MMO SUPERMEDPolicy Number: [id number] Date:2019-09-14 TIN PACHECO ILYA: [id number] [address]Xoc: (HP) (WP) [facility]
--- OUTSIDE RECORDS SUMMARY | 2025-02-02 15:50 | XMS_ITS | Encounter Summary ---
Author Organization [facility] Address [address] [place] [address] Care Team Providers Care Navy Airspace Officer Name Role Phone Jax Mckeon MD Primary Care Provider + [phone] Reason for Visit * Reason Comments Post-op Visit Encounter Details Date Type Department Care Team (Late st Contact Info) Description 02/02/2025 3:50 PM EDT Office Visit [facility] OB [address] [facility] [facility] [address] Sandee Valdovinos PA [address] [facility] [place] [address] Postoperative examination Social History Tobacco Use Types [...] Industry Job Start Date Job End Date [employer] of disabilites Not on file [...] 12:00 PM EDT documented in this encounter Plan of Treatment Scheduled Orders Name Type Priority Associated Diagnoses Orde r Schedule hCG, quantitative, Lab Routine Postoperative examination Expected: 02/02/2025 (Approximate), Expires: 02/02/2026 CBC and differential Lab Routine Postoperative examination Ordered: 02/02/2025 documented as of this encounter Visit Diagnoses Diagnosis Postoperative examination Follow-up examination, following unspecified surgery documented in this encounter Care Teams Navy Airspace Officer Relationship Specialty Start Date End Date Jax Mckeon MD PCP - General Family Medicine 10/16/23 documented as of this encounter
--- OUTSIDE RECORDS SUMMARY | 2025-02-02 16:30 | XMS_ITS | Encounter Summary ---
Author Organization [facility] Address [address] [place] [address] Care Team Providers Care Behavioral Health Consultant Name Role Phone Dwayne Johnson Unavailable Source Comments In the event this information is protected by the Federal Confidentiality of Alcohol and Drug AbusePatient Records regulations: The Federal rules restrict any use of the information to criminally investigate or prosecute any alcohol or drug abuse patient.[facility] Encounter Details Date Type Department Care Team (Late st Contact Info) Description 01/18/2025 Patient Msg Reproductive Endocrinology Infertility [address] [place] [address] Kerry Weiner PA-C [address] [place], [place] [id number] Following up Social History Tobacco Use Types Packs/Day Years Used Date Smoking Tobacco: Former Cigarettes 1 17 Smokeless Tobacco: Never Alcohol Use Standard Drinks/Week Comments Not Currently 0 (1 standard drink = 0.6 oz pur e alcohol) AUDIT-C Answer Date Recorded Q1: How often do you have a drink containing alc ohol? Never 10/15/2020 Average Number of Drinks Not on file 021 Frequency of Binge Drinking Not on file 09/2020 Area Deprivation Index Answer Date Agapito rded National Score (1-100), lower number is lower ri sk 83 08/19/2023 State Score (1-10), lower number is lower risk 7 08/19/2023 Data from: https://www.neighborhoodatlas.medicine.[facility].edu/. Last address used for calculation [address] 08/19/2023 Comments No Sex and Gender Information Value Date Recorded Sex Assigned at Female 06/12/2021 8:50 PM EDT Legal Sex Female 3:20 PM EST Gender Identity Female 06/12/2021 8:50 PM EDT Sexual Orientation Straight 06/12/2021 8: 50 PM EDT documented as of this encounter Plan of Treatment Upcoming Encounters Date Type Department Care Team (Late st Contact Info) Description 03/23/2025 10:00 AM EDT [facility] Reproductive Endocrinology Infertility [address] [place] [address] Santa No MD [address] [place], [place] [phone] infertility documented as of this encounter Visit Diagnoses Diagnosis Miscarriage (HCC) [O03.9]- Primary Unspecified spontaneous without mention of complication documented in this encounter Care Teams Behavioral Health Consultant Relationship Specialty Start Date End Date Dwayne Johnson: [phone] [address] [place] [address] Referring Wallboard Worker 10/04/20 documented as of this encounter
--- OUTSIDE RECORDS SUMMARY | 2025-02-02 16:30 | XMS_ITS | Encounter Summary ---
Author Organization [facility] Address [address] [place] [address] Care Team Providers Care Beam Worker Name Role Phone Dwayne Johnson Unavailable Source Comments In the event this information is protected by the Federal Confidentiality of Alcohol and Drug AbusePatient Records regulations: The Federal rules restrict any use of the information to criminally investigate or prosecute any alcohol or drug abuse patient.[facility] Encounter Details Date Type Department Care Team (Latest Contact Info) Description 01/08/2024 Patient Msg Reproductive Endocrinology Infertility [address] [place] [address] Provider, Ccf Super Ov Plan 01/08/24 Social History Tobacco Use Types Packs/Day Years [...] Frequency of Binge Drinking Not on file 02/0 09/2020 Area Deprivation Index Answer Date Agapito rded National Score (1-100), lower number is lower ri sk 83 08/19/2023 State Score (1-10), lower number is lower risk 7 08/19/2023 Data from: https://www.neighborhoodatlas.medicine.[facility].edu/. Last address used for calculation [address] 08/19/2023 Comments No Sex and Gender Information Value Date Recorded Sex Assigned at Female 06/12/2021 8:50 PM EDT Legal Sex Female 3:20 PM EST Gender Identity Female 06/12/2021 8:50 PM EDT Sexual Orientation Straight 06/12/2021 8: 50 PM EDT documented as of this encounter Plan of Treatment Upcoming Encounters Date Type Department Care Team (Late st Contact Info) Description 03/23/2025 10:00 AM EDT [facility] Reproductive Endocrinology Infertility [address] [place] [address] Santa No MD [address] [place], [place] [phone] infertility documented as of this encounter Visit Diagnoses Not on filedocumented in this encounter Care Teams Beam Worker Relationship Specialty Start Date End Date Dwayne Johnson: [phone] [address] [place] [address] Referring Supervisor Aircraft Cleaning 10/04/20 documented as of this encounter
--- OUTSIDE RECORDS SUMMARY | 2025-02-02 16:30 | XMS_ITS | Encounter Summary ---
Author Organization [facility] Address [address] [place] [address] Care Team Providers Care Clothes Marker Name Role Phone Dwayne Johnson Unavailable Source Comments In the event this information is protected by the Federal Confidentiality of Alcohol and Drug AbusePatient Records regulations: The Federal rules restrict any use of the information to criminally investigate or prosecute any alcohol or drug abuse patient.[facility] Encounter Details Date Type Department Care Team (Latest Contact Info) Description 05/21/2023 Patient Msg Reproductive Endocrinology Infertility [address] [place] [phone] Provider, Elyse Super Ov Plan 05/21/23 Social History Tobacco Use Types Packs/Day Years Used Date Smoking Tobacco: Some Days Cigarettes 0.5 16 Smokeless Tobacco: Never Alcohol Use Standard Drinks/Week Comments Never 0 (1 standard drink = 0.6 oz pur e alcohol) AUDIT-C Answer Date Recorded Q1: How often do you have a drink containing alc ohol? Never 10/15/2020 Average Number of Drinks Not on file 021 Frequency of Binge Drinking Not on file 09/2020 Area Deprivation Index Answer Date Agapito rded National Score (1-100), lower number is lower ri sk 83 02/18/2023 State Score (1-10), lower number is lower risk 7 02/18/2023 Data from: https://www.neighborhoodatlas.medicine.[facility].edu/. Last address used for calculation [address] 02/18/2023 Comments No Sex and Gender Information Value Date Recorded Sex Assigned at Female 06/12/2021 8:50 PM EDT Legal Sex Female 3:20 PM EST Gender Identity Female 06/12/2021 8:50 PM EDT Sexual Orientation Straight 06/12/2021 8: 50 PM EDT documented as of this encounter Plan of Treatment Upcoming Encounters Date Type Department Care Team (Late st Contact Info) Description 03/23/2025 10:00 AM EDT [facility] Reproductive Endocrinology Infertility [address] [place] [address] Santa No MD [address] [facility] [place] [address] infertility documented as of this encounter Visit Diagnoses Not on filedocumented in this encounter Care Teams Clothes Marker Relationship Specialty Start Date End Date Dwayne Johnson [address] [place] [address] Referring Store Sales Consultant 10/04/20 documented as of this encounter
--- OUTSIDE RECORDS SUMMARY | 2025-02-02 16:30 | XMS_ITS | Encounter Summary ---
Author Organization [facility] Address [address] [place] [address] Care Team Providers Care Furniture Sander Name Role Phone Dwayne Johnson Unavailable Source Comments In the event this information is protected by the Federal Confidentiality of Alcohol and Drug AbusePatient Records regulations: The Federal rules restrict any use of the information to criminally investigate or prosecute any alcohol or drug abuse patient.[facility] Encounter Details Date Type Department Care Team (Latest Contact Info) Description 05/28/2023 Patient Msg Reproductive Endocrinology Infertility [address] [place], [place] [phone] Provider, Ccf Trigger Instructions for Super Ov Cycle. Social History Tobacco Use Types Packs/Day Years [...] is lower risk 7 02/18/2023 Data from: https://www.neighborhoodatlas.medicine.[facility].edu/. Last address used for calculation [address] [...] Contact Info) Description 03/23/2025 10:00 AM EDT [facility] Reproductive Endocrinology Infertility [address] [place] [address] Santa No MD [address] [facility] [place] [address] infertility documented as of this encounter Visit Diagnoses Not on filedocumented in this encounter Care Teams Furniture Sander Relationship Specialty Start Date End Date Dwayne Johnson [address] [place] [address] Referring Account Development Specialist 10/04/20 documented as of this encounter
--- OUTSIDE RECORDS SUMMARY | 2025-02-02 16:30 | XMS_ITS | Encounter Summary ---
Author Organization [facility] Address [address] [place] [address] Care Team Providers Care Audiometric Technician Name Role Phone Dwayne Johnson Unavailable Source Comments In the event this information is protected by the Federal Confidentiality of Alcohol and Drug AbusePatient Records regulations: The Federal rules restrict any use of the information to criminally investigate or prosecute any alcohol or drug abuse patient.[facility] Encounter Details Date Type Department Care Team (Late st Contact Info) Description 12/13/2024 Results Follow-Up Reproductive Endocrinology Infertility [address] [place] [address] Sushila Vee APRN.GREEN END MAN [address] [place] [address] Social History Tobacco Use Types Packs/Day Years [...] Frequency of Binge Drinking Not on file 0 09/2020 Area Deprivation Index Answer Date Agapito rded National Score (1-100), lower number is lower ri sk 83 08/19/2023 State Score (1-10), lower number is lower risk 7 08/19/2023 Data from: https://www.neighborhoodatlas.medicine.[facility].edu/. Last address used for calculation [address] 08/19/2023 Comments No Sex and Gender [...] Contact Info) Description 03/23/2025 10:00 AM EDT [facility] Reproductive Endocrinology Infertility [address] [place] [address] Santa No MD [address] [place], [place] [phone] infertility documented as of this encounter Visit Diagnoses Not on filedocumented in this encounter Care Teams Audiometric Technician Relationship Specialty Start Date End Date Dwayne Johnson [address] [place] [address] Referring Manager Sourcing 10/04/20 documented as of this encounter
--- OUTSIDE RECORDS SUMMARY | 2025-02-02 16:30 | XMS_ITS | Encounter Summary ---
Author Organization [facility] Address [address] [place] [address] Care Team Providers Care Business System Manager Name Role Phone Dwayne Johnson Unavailable Source Comments In the event this information is protected by the Federal Confidentiality of Alcohol and Drug AbusePatient Records regulations: The Federal rules restrict any use of the information to criminally investigate or prosecute any alcohol or drug abuse patient.[facility] Encounter Details Date Type Department Care Team (Late st Contact Info) Description 05/28/2023 Patient Msg Reproductive Endocrinology Infertility [address] [place] [address] Provider, Ccf Re: Dexamethasone Social History Tobacco Use Types Packs/Day Years [...] is lower risk 7 02/18/2023 Data from: https://www.neighborhoodatlas.medicine.[facility].edu/. Last address used for calculation [address] [...] Contact Info) Description 03/23/2025 10:00 AM EDT [facility] Reproductive Endocrinology Infertility [address] [place] [address] Santa No MD [address] [place], [place] [phone] infertility documented as of this encounter Visit Diagnoses Not on filedocumented in this encounter Care Teams Business System Manager Relationship Specialty Start Date End Date Dwayne Johnson [address] [place] [address] Referring Needle Loom Setter 10/04/20 documented as of this encounter
--- OUTSIDE RECORDS SUMMARY | 2025-02-02 16:30 | XMS_ITS | Encounter Summary ---
Author Organization [facility] Address [address] [place] [address] Care Team Providers Care Picking Machine Operator Helper Name Role Phone Dwayne Johnson Unavailable Source Comments In the event this information is protected by the Federal Confidentiality of Alcohol and Drug AbusePatient Records regulations: The Federal rules restrict any use of the information to criminally investigate or prosecute any alcohol or drug abuse patient.[facility] Encounter Details Date Type Department Care Team (Late st Contact Info) Description 11/14/2024 Patient Msg Reproductive Endocrinology Infertility [address] [place], [place] [phone] Provider, Ccf plan for 11/14/24 Social History Tobacco Use Types Packs/Day Years [...] is lower risk 7 08/19/2023 Data from: https://www.neighborhoodatlas.medicine.[facility].edu/. Last address used for calculation [address] [...] Contact Info) Description 03/23/2025 10:00 AM EDT [facility] Reproductive Endocrinology Infertility [address] [place] [address] Santa No MD [address] [place], [place] [phone] infertility documented as of this encounter Visit Diagnoses Not on filedocumented in this encounter Care Teams Picking Machine Operator Helper Relationship Specialty Start Date End Date Dwayne Johnson: [phone] [address] [place] [address] Referring Engineer Automated Equipment 10/04/20 documented as of this encounter
--- OUTSIDE RECORDS SUMMARY | 2025-02-02 16:30 | XMS_ITS | Encounter Summary ---
Author Organization [facility] Address [address] [place] [address] Care Team Providers Care Bank Worker Name Role Phone Dwayne Johnson Unavailable Source Comments In the event this information is protected by the Federal Confidentiality of Alcohol and Drug AbusePatient Records regulations: The Federal rules restrict any use of the information to criminally investigate or prosecute any alcohol or drug abuse patient.[facility] Encounter Details Date Type Department Care Team (Late st Contact Info) Description 04/01/2024 Patient Update Reproductive Endocrinology Infertility [address] [place] [address] Malu Zhang, LAUREN Social History Tobacco Use Types Packs/Day Years [...] is lower risk 7 08/19/2023 Data from: https://www.neighborhoodatlas.medicine.[facility].edu/. Last address used for calculation [address] 08/19/2023 Comments No Sex and Gender Information Value Date Recorded Sex Assigned at Female 06/12/2021 8:50 PM EDT Legal Sex Female 3:20 PM EST Gender Identity Female 06/12/2021 8:50 PM EDT Sexual Orientation Straight 06/12/2021 8: 50 PM EDT documented as of this encounter Progress Notes * Malu Zhang RN - 04/01/2024 3:[address] Tracy and discussed patient's plan of care. Dr. Tracy would like patient to have aprogesterone level done on Thursday and then he [...] we will order special blood work to assesswhat might be happening- P4 will be on [...] will be called on 04/05/24 with plan. Malu Zhang RN April 01, 2024 3:52 PM documented in this encounter Plan of Treatment Upcoming Encounters Date Type Department Care Team (Late st Contact Info) Description 03/23/2025 10:00 AM EDT [facility] Reproductive Endocrinology Infertility [address] [place] [address] Santa No MD [address] [place], [place] [phone] infertility documented as of this encounter Results * HCG QUANTITATIVE (04/04/2024 8:03 AM EDT) hCG Quantitative, Blood <0.6 <5.0 mIU/mL 04/04/2024 3:05 PM EDT [facility] Comment:Negative Blood BLOOD SPECIMEN / Unknown Venipuncture / Unknown 04/04/2024 8:03 AM EDT 04/04/2024 8:03 AM EDT us Kerry Weiner PA-C LABORATORY Final Result [facility] [address] [facility] [address] documented in this encounter Visit Diagnoses Diagnosis Encounter for fertility testing- Primary Fertility testing documented in this encounter Care Teams Bank Worker Relationship Specialty Start Date End Date Dwayne Johnson [address] [place] [address] Referring Auto Body Repairer Fiberglass 10/04/20 documented as of this encounter
--- OUTSIDE RECORDS SUMMARY | 2025-02-02 16:30 | XMS_ITS | Encounter Summary ---
Author Organization [facility] Address [address] [place] [address] Care Team Providers Care Engineering Technical Writer Name Role Phone Dwayne Johnson Unavailable Source Comments In the event this information is protected by the Federal Confidentiality of Alcohol and Drug AbusePatient Records regulations: The Federal rules restrict any use of the information to criminally investigate or prosecute any alcohol or drug abuse patient.[facility] Encounter Details Date Type Department Care Team (Late st Contact Info) Description 01/11/2024 Patient Msg Reproductive Endocrinology Infertility [address] [place], [place] [phone] Provider, Ccf Plan Social History Tobacco Use Types Packs/Day Years [...] is lower risk 7 08/19/2023 Data from: https://www.neighborhoodatlas.medicine.[facility].edu/. Last address used for calculation [address] [...] Contact Info) Description 03/23/2025 10:00 AM EDT [facility] Reproductive Endocrinology Infertility [address] [place] [address] Santa No MD [address] [place] [place], [place] [phone] infertility documented as of this encounter Visit Diagnoses Not on filedocumented in this encounter Care Teams Engineering Technical Writer Relationship Specialty Start Date End Date Dwayne Johnson [address] [place] [address] Referring Supervisor Modern Languages 10/04/20 documented as of this encounter
--- OUTSIDE RECORDS SUMMARY | 2025-02-02 16:30 | XMS_ITS | Encounter Summary ---
Author Organization [facility] Address [address] [place] [address] Care Team Providers Care Web Services Architect Name Role Phone Dwayne Johnson Unavailable Source Comments In the event this information is protected by the Federal Confidentiality of Alcohol and Drug AbusePatient Records regulations: The Federal rules restrict any use of the information to criminally investigate or prosecute any alcohol or drug abuse patient.[facility] Encounter Details Date Type Department Care Team (Latest Contact Info) Description 11/25/2024 Patient Msg Reproductive Endocrinology Infertility [address] [place] [address] Provider, Ccf Super OV Plan 11/25/24 Social History Tobacco Use Types Packs/Day Years [...] is lower risk 7 08/19/2023 Data from: https://www.neighborhoodatlas.medicine.[facility].edu/. Last address used for calculation [address] [...] Contact Info) Description 03/23/2025 10:00 AM EDT [facility] Reproductive Endocrinology Infertility [address] [place] [address] Santa No MD [address] [place] [place], [place] [phone] infertility documented as of this encounter Visit Diagnoses Not on filedocumented in this encounter Care Teams Web Services Architect Relationship Specialty Start Date End Date Dwayne Johnson: [phone] [address] [place] [address] Referring Personalized Living Manager 10/04/20 documented as of this encounter
--- OUTSIDE RECORDS SUMMARY | 2025-02-02 16:30 | XMS_ITS | Encounter Summary ---
Author Organization [facility] Address [address] [place] [address] Care Team Providers Care Program Lead Name Role Phone Dwayne Johnson Unavailable Source Comments In the event this information is protected by the Federal Confidentiality of Alcohol and Drug AbusePatient Records regulations: The Federal rules restrict any use of the information to criminally investigate or prosecute any alcohol or drug abuse patient.[facility] Encounter Details Date Type Department Care Team (Late st Contact Info) Description 04/07/2024 Patient Update Reproductive Endocrinology Infertility [address] [place] [address] Malu Zhang, LAUREN Social History Tobacco Use [...] is lower risk 7 08/19/2023 Data from: https://www.neighborhoodatlas.medicine.[facility].edu/. Last address used for calculation [address] 08/19/2023 Comments No Sex and Gender Information Value Date Recorded Sex Assigned at Female 06/12/2021 8:50 PM EDT Legal Sex Female 3:20 PM EST Gender Identity Female 06/12/2021 8:50 PM EDT Sexual Orientation Straight 06/12/2021 8: 50 PM EDT documented as of this encounter Progress Notes * Malu Zhang RN - 04/07/2024 8:58 AM EDT Called patient and instructed to have labs done today. Pt. States she is out of town but will try to find a lab. Letter sent with lab orders. Midcycle appt. Scheduled for 04/15/24. Pt. Has Hcg script and will order when back home. Message sent to [facility] for referral for mIdcycle/IUI. Mychart sent to patient with plan. Malu Zhang RN April 07, 2024 10:06 AM documented in this encounter Plan of Treatment Upcoming Encounters Date Type Department Care Team (Late st Contact Info) Description 03/23/2025 10:00 AM EDT [facility] Reproductive Endocrinology Infertility [address] [place] [address] Santa No [facility] [address] [facility] [place] [address] infertility documented as of this encounter Results * LUTEINIZING HORMONE (04/15/2024 7:27 AM EDT) LH 10.9 See comment mIU/mL 04/15/2024 10:34 AM EDT [facility] Comment: Reference range: Follicular: 2.4-12.6 mIU/mL Midcycle: 14.0-95.6 mIU/mL Luteal: 1.0-11.4 mIU/mL Post Sylwia: 7.7-58.5 mIU/mL Blood BLOOD SPECIMEN / Unknown Venipuncture / Unknown 04/15/2024 7:27 AM EDT 04/15/2024 10:05 AM EDT Sushila Vee APRN.[facility] Final R esult [facility] [address] [place] [place] [address], [place] * PROGESTERONE (04/15/2024 7:27 AM EDT) Progesterone <0.2 See comment ng/mL 04/15/2024 10:34 AM EDT [facility] Comment: Menstrual Cycle Progesterone Reference Ranges: Follicular: <1.0 ng/mL Ovulation: <12.1 ng/mL Luteal: 1.8 to 23.9 ng/mL. Progesterone Reference Ranges vary by gestational period: First Trimester: 11.0 to 44.3 ng/mL Second Trimester: 25.4 to 83.3 ng/mL Third Trimester: 58.7 to 214 ng/mL Post menopausal Progesterone: <0.5 ng/mL Reference: 1. Progesterone (Progesterone III) [package insert V 1.0 Vincentian]. [facility], [place], [place]. June 2015. Blood BLOOD SPECIMEN / Unknown Venipuncture / Unknown 04/15/2024 7:27 AM EDT 04/15/2024 10:05 AM EDT Sushila Vee APRN.[facility] Final R esult [facility] [address] [place] [place] [address], [place] * (ABNORMAL) ESTRADIOL-17B BLD (04/15/2024 7:27 AM EDT) Estradiol 17B 38(H) 8 - 37 pg/mL 04/15/2024 9:22 AM EDT [facility] Comment: This test is not suitable for [...] 3243 pg/mL Second trimester : 1561 to 33861 pg/mL Third trimester : 8285 to >91305 pg/mL Post-menopausal Estradiol reference range: < 41 pg/mL Reference: 1. Estradiol - E2 (Estradiol III) [package insert V 3.0 Vincentian]. [facility], [place], [place], February 2016. Blood BLOOD SPECIMEN / Unknown Venipuncture / Unknown 04/15/2024 7:27 AM EDT 04/15/2024 7:27 AM EDT us Sushila Vee RAILROAD CAR REPAIR SUPERVISOR.[facility] Final R esult [facility] [address] [place] [place] [address], documented in this encounter Visit Diagnoses Diagnosis Encounter for fertility testing- Primary Fertility testing documented in this encounter Care Teams Program Lead Relationship Specialty Start Date End Date Dwayne Johnson: [phone] [address] [place] [address] Referring Winch Driver 10/04/20 documented as of this encounter
--- OUTSIDE RECORDS SUMMARY | 2025-02-02 16:30 | XMS_ITS | Encounter Summary ---
Author Organization [facility] Address [address] [place] [address] Care Team Providers Care Hospitalist Medical Director Name Role Phone Dwayne Johnson Unavailable Source Comments In the event this information is protected by the Federal Confidentiality of Alcohol and Drug AbusePatient Records regulations: The Federal rules restrict any use of the information to criminally investigate or prosecute any alcohol or drug abuse patient.[facility] Encounter Details Date Type Department Care Team (Late st Contact Info) Description 11/24/2024 Patient Msg Reproductive Endocrinology Infertility [address] [place], [place] [phone] Provider, Ccf plan for 11/24/24 Social History Tobacco Use Types Packs/Day Years [...] is lower risk 7 08/19/2023 Data from: https://www.neighborhoodatlas.medicine.[facility].edu/. Last address used for calculation [address] [...] Contact Info) Description 03/23/2025 10:00 AM EDT [facility] Reproductive Endocrinology Infertility [address] [place] [address] Santa No MD [address] [place] [place], [place] [phone] infertility documented as of this encounter Visit Diagnoses Not on filedocumented in this encounter Care Teams Hospitalist Medical Director Relationship Specialty Start Date End Date Dwayne Johnson: [phone] [address] [place] [address] Referring Chief Human Resources Officer 10/04/20 documented as of this encounter
--- OUTSIDE RECORDS SUMMARY | 2025-02-02 16:30 | XMS_ITS | Encounter Summary ---
Author Organization [facility] Address [address] [place] [address] Care Team Providers Care Cement Railroad Car Loader Name Role Phone Dwayne Johnson Unavailable Source Comments In the event this information is protected by the Federal Confidentiality of Alcohol and Drug AbusePatient Records regulations: The Federal rules restrict any use of the information to criminally investigate or prosecute any alcohol or drug abuse patient.[facility] Encounter Details Date Type Department Care Team (Latest Contact Info) Description 02/10/2024 Patient Msg OB/Gynecology [address] [place] [address] Provider, Ccf making sure you saw results and recommendations Social History Tobacco Use Types Packs/Day Years [...] is lower risk 7 08/19/2023 Data from: https://www.neighborhoodatlas.medicine.[facility].edu/. Last address used for calculation [address] [...] Contact Info) Description 03/23/2025 10:00 AM EDT [facility] Reproductive Endocrinology Infertility [address] [place] [address] Santa No MD [address] [place] [place], [place] [phone] infertility documented as of this encounter Visit Diagnoses Not on filedocumented in this encounter Care Teams Cement Railroad Car Loader Relationship Specialty Start Date End Date Dwayne Johnson [address] [place] [address] Referring Terrapin Fisher 10/04/20 documented as of this encounter
--- OUTSIDE RECORDS SUMMARY | 2025-02-02 16:30 | XMS_ITS | Encounter Summary ---
Author Organization [facility] Address [address] [place] [address] Care Team Providers Care Machine Stuffer Name Role Phone Dwayne Johnson Unavailable Source Comments In the event this information is protected by the Federal Confidentiality of Alcohol and Drug AbusePatient Records regulations: The Federal rules restrict any use of the information to criminally investigate or prosecute any alcohol or drug abuse patient.[facility] Encounter Details Date Type Department Care Team (Late st Contact Info) Description 03/09/2024 Patient Msg Reproductive Endocrinology Infertility [address] [place] [address] Provider, Ccf Follow up Social History Tobacco Use Types Packs/Day [...] is lower risk 7 08/19/2023 Data from: https://www.neighborhoodatlas.medicine.[facility].edu/. Last address used for calculation [address] [...] Contact Info) Description 03/23/2025 10:00 AM EDT [facility] Reproductive Endocrinology Infertility [address] [place] [address] Santa No MD [address] [place], [place] [phone] infertility documented as of this encounter Visit Diagnoses Not on filedocumented in this encounter Care Teams Machine Stuffer Relationship Specialty Start Date End Date Dwayne Johnson [address] [place] [address] Referring Photocopying Equipment Mechanic 10/04/20 documented as of this encounter
--- OUTSIDE RECORDS SUMMARY | 2025-02-02 16:30 | XMS_ITS | Encounter Summary ---
Author Organization [facility] Address [address] [place] [address] Care Team Providers Care Aircraft Refueler Name Role Phone Dwayne Johnson Unavailable Source Comments In the event this information is protected by the Federal Confidentiality of Alcohol and Drug AbusePatient Records regulations: The Federal rules restrict any use of the information to criminally investigate or prosecute any alcohol or drug abuse patient.[facility] Encounter Details Date Type Department Care Team (Latest Contact Info) Description 05/18/2023 Patient Msg Reproductive Endocrinology Infertility [address] [place], [place] [phone] Provider, Ccf Super Ovulation Plan 05/18/23 Social History Tobacco Use Types Packs/Day Years [...] is lower risk 7 02/18/2023 Data from: https://www.neighborhoodatlas.medicine.[facility].edu/. Last address used for calculation [address] 02/18/2023 Comments No Sex and Gender Information Value Date Recorded Sex Assigned at Female 06/12/2021 8:50 PM EDT Legal Sex Female 3:20 PM EST Gender Identity Female 06/12/2021 8:50 PM EDT Sexual Orientation Straight 06/12/2021 8: 50 PM EDT documented as of this encounter Plan of Treatment Upcoming Encounters Date Type Department Care Team (Late st Contact Info) Description 03/23/2025 10:00 AM EDT [facility] Reproductive Endocrinology Infertility [address] [place] [address] Santa No MD [address] [place] [address] infertility documented as of this encounter Visit Diagnoses Not on filedocumented in this encounter Care Teams Aircraft Refueler Relationship Specialty Start Date End Date Dwayne Johnson [address] [place] [address] Referring Complex Director 10/04/20 documented as of this encounter
--- OUTSIDE RECORDS SUMMARY | 2025-02-02 16:30 | XMS_ITS | Encounter Summary ---
Author Organization [facility] Address [address] [place] [address] Care Team Providers Care Building Custodian Name Role Phone Dwayne Johnson Unavailable Source Comments In the event this information is protected by the Federal Confidentiality of Alcohol and Drug AbusePatient Records regulations: The Federal rules restrict any use of the information to criminally investigate or prosecute any alcohol or drug abuse patient.[facility] Encounter Details Date Type Department Care Team (Late st Contact Info) Description 11/21/2024 Patient Msg Reproductive Endocrinology Infertility [address] [place], [place] [phone] Provider, Ccf plan for 11/21/24 Social History Tobacco Use Types Packs/Day Years [...] is lower risk 7 08/19/2023 Data from: https://www.neighborhoodatlas.medicine.[facility].edu/. Last address used for calculation [address] [...] Contact Info) Description 03/23/2025 10:00 AM EDT [facility] Reproductive Endocrinology Infertility [address] [place] [address] Santa No MD [address] [place], [place] [phone] infertility documented as of this encounter Visit Diagnoses Not on filedocumented in this encounter Care Teams Building Custodian Relationship Specialty Start Date End Date Dwayne Johnson: [phone] [address] [place] [address] Referring Manager Materials Management 10/04/20 documented as of this encounter
--- OUTSIDE RECORDS SUMMARY | 2025-02-02 16:30 | XMS_ITS | Encounter Summary ---
Author Organization [facility] Address [address] [place] [address] Care Team Providers Care V Groove Cutter Name Role Phone Dwayne Johnson Unavailable Source Comments In the event this information is protected by the Federal Confidentiality of Alcohol and Drug AbusePatient Records regulations: The Federal rules restrict any use of the information to criminally investigate or prosecute any alcohol or drug abuse patient.[facility] Encounter Details Date Type Department Care Team (Late st Contact Info) Description 05/25/2023 Patient Msg Reproductive Endocrinology Infertility [address] [place], [place] [phone] Provider, Ccf plan for 05/25/23 Social History Tobacco Use Types Packs/Day Years [...] is lower risk 7 02/18/2023 Data from: https://www.neighborhoodatlas.medicine.[facility].edu/. Last address used for calculation [address] [...] Description 03/23/2025 10:00 AM EDT [facility] Reproductive Endocrinology Infertility [address] [place] [address] Santa No MD [address] [place] [address] infertility documented as of this encounter Visit Diagnoses Not on filedocumented in this encounter Care Teams V Groove Cutter Relationship Specialty Start Date End Date Dwayne Johnson [address] [place] [address] Referring Beam Saw Operator 10/04/20 documented as of this encounter
--- OUTSIDE RECORDS SUMMARY | 2025-02-02 16:31 | XMS_ITS | Clinical Summary ---
Author Organization [facility] Address [address] [place] [address] Care Team Providers Care Motel Front Desk Clerk Name Role Phone Unavailable Primary Care Provider Unavailabl e Social History Tobacco Use Types Packs/Day Years Used Date Smoking Tobacco: Never Assessed Comments Unknown Sex and Gender Information Value Date Recorded Sex Assigned at Not on file Legal Sex Female 3:33 PM EST Gender Identity Not on file Sexual Orientation Not on file Plan of Treatment Not on file
--- OUTSIDE RECORDS SUMMARY | 2025-02-02 16:31 | XMS_ITS | Encounter Summary ---
Author Organization [facility] Address [address] [place] [address] Care Team Providers Care Mergers And Acquisitions Banker Name Role Phone Jax Champagne Primary Care Provider [phone] Pcp, No PLAY WRITER Primary Care Provider Dwayne Liu Unavailable Source Comments In the event this information is protected by the Federal Confidentiality of Alcohol and Drug AbusePatient Records regulations: The Federal rules restrict any use of the information to criminally investigate or prosecute any alcohol or drug abuse patient.[facility] Encounter Details Date Type Department Care Team (Latest Contact Info) Description 11/30/2021 Patient Msg Reproductive Endocrinology Infertility [address] [address] Dmitry Oh MD [address] [place], [place] [phone] Request an Appointment Social History Tobacco Use Types Packs/Day Years Used Date Smoking Tobacco: Some Days Cigarettes 1 16 Smokeless Tobacco: Never Alcohol Use Standard [...] (1-100), lower number is lower ri sk Not on file 10/15/2020 State Score (1-10), lower number is lower risk N ot on file 10/15/2020 Data from: https://www.neighborhoodatlas.medicine.[facility]/. Last address used for calculation Not on file 10/15/2020 Comments No Sex and Gender Information Value [...] Description 03/23/2025 10:00 AM EDT [facility] Reproductive Endocrinology Infertility [address] [place] [address] Santa No MD [address] [place], [place] [phone] infertility documented as of this encounter Visit Diagnoses Not on filedocumented in this encounter Care Teams Mergers And Acquisitions Banker Relationship Specialty Start Date End Date Jax Champagne PCP - General 03/21/09 03/28/22 PcpKarla APRN PCP - General 03/29/22 10/14/22 Dwayne Johnson [address] [place] [address] Referring Cardiology Teacher 10/04/20 documented as of this encounter
--- OUTSIDE RECORDS SUMMARY | 2025-02-02 16:31 | XMS_ITS | Encounter Summary ---
Author Organization [facility] Address [address] [place] [address] Care Team Providers Care Vacuum Technician Name Role Phone Dwayne Johnson Unavailable Source Comments In the event this information is protected by the Federal Confidentiality of Alcohol and Drug AbusePatient Records regulations: The Federal rules restrict any use of the information to criminally investigate or prosecute any alcohol or drug abuse patient.[facility] Encounter Details Date Type Department Care Team (Latest Contact Info) Description 06/03/2024 Patient Msg Reproductive Endocrinology Infertility [address] [place], [place] [phone] Provider, Ccf Super Ovulation Plan 06/03/24 Social History Tobacco Use Types Packs/Day Years [...] risk 7 08/19/2023 Data from: https://www.neighborhoodatlas.medicine.[facility].edu/. Last address used for calculation [...] Contact Info) Description 03/23/2025 10:00 AM EDT [facility] Reproductive Endocrinology Infertility [address] [place] [address] Santa No MD [address] [place], [place] [phone] infertility documented as of this encounter Visit Diagnoses Not on filedocumented in this encounter Care Teams Vacuum Technician Relationship Specialty Start Date End Date Dwayne Johnson: [phone] [address] [place] [address] Referring Production Mechanic 10/04/20 documented as of this encounter
--- OUTSIDE RECORDS SUMMARY | 2025-02-02 16:31 | XMS_ITS | Encounter Summary ---
Author Organization [facility] Address [address] [place] [address] Care Team Providers Care Paving Inspector Name Role Phone Dwayne Johnson Unavailable Source Comments In the event this information is protected by the Federal Confidentiality of Alcohol and Drug AbusePatient Records regulations: The Federal rules restrict any use of the information to criminally investigate or prosecute any alcohol or drug abuse patient.[facility] Encounter Details Date Type Department Care Team (Latest Contact Info) Description 06/15/2024 Patient Msg Reproductive Endocrinology Infertility [address] [place], [place] [phone] Provider, Ccf Super Ovulation Trigger Plan Social History Tobacco Use Types Packs/Day [...] is lower risk 7 08/19/2023 Data from: https://www.neighborhoodatlas.medicine.[facility].edu/. Last address used for calculation [...] Contact Info) Description 03/23/2025 10:00 AM EDT [facility] Reproductive Endocrinology Infertility [address] [place] [address] Santa No MD [address] [place], [place] [phone] infertility documented as of this encounter Visit Diagnoses Not on filedocumented in this encounter Care Teams Paving Inspector Relationship Specialty Start Date End Date Dwayne Johnson [address] [place] [address] Referring Special Education Inclusion Teacher 10/04/20 documented as of this encounter
--- OUTSIDE RECORDS SUMMARY | 2025-02-02 16:31 | XMS_ITS | Encounter Summary ---
Author Organization [facility] Address [address] [place] [address] Care Team Providers Care Front End Specialist Name Role Phone Dwayne Johnson Unavailable Source Comments In the event this information is protected by the Federal Confidentiality of Alcohol and Drug AbusePatient Records regulations: The Federal rules restrict any use of the information to criminally investigate or prosecute any alcohol or drug abuse patient.[facility] Encounter Details Date Type Department Care Team (Late st Contact Info) Description 06/17/2023 Patient Msg Reproductive Endocrinology Infertility [address] [place], [place] [phone] Provider, Ccf Letrozole Social History Tobacco Use Types Packs/Day Years [...] is lower risk 7 02/18/2023 Data from: https://www.neighborhoodatlas.medicine.[facility].edu/. Last address used for calculation [address] [...] Contact Info) Description 03/23/2025 10:00 AM EDT [facility] Reproductive Endocrinology Infertility [address] [place] [address] Santa No MD [address] [place], [place] [phone] infertility documented as of this encounter Visit Diagnoses Not on filedocumented in this encounter Care Teams Front End Specialist Relationship Specialty Start Date End Date Dwayne Johnson [address] [place] [address] Referring Copy Supervisor 10/04/20 documented as of this encounter
--- OUTSIDE RECORDS SUMMARY | 2025-02-02 16:31 | XMS_ITS | Encounter Summary ---
Author Organization [facility] Address [address] [place] [address] Care Team Providers Care Yarn Twister Name Role Phone Dwayne Johnson Unavailable Source Comments In the event this information is protected by the Federal Confidentiality of Alcohol and Drug AbusePatient Records regulations: The Federal rules restrict any use of the information to criminally investigate or prosecute any alcohol or drug abuse patient.[facility] Encounter Details Date Type Department Care Team (Late st Contact Info) Description 08/28/2023 Patient Msg Reproductive Endocrinology Infertility [address] [place], [place] [phone] Provider, Ccf PLan Social History Tobacco Use Types Packs/Day Years [...] risk 7 08/19/2023 Data from: https://www.neighborhoodatlas.medicine.[facility].edu/. Last address used for calculation [address] [...] [facility] Reproductive Endocrinology Infertility [address] [place] [address] Santa No MD [address] [place], [place] [phone] infertility documented as of this encounter Visit Diagnoses Not on filedocumented in this encounter Care Teams Yarn Twister Relationship Specialty Start Date End Date Dwayne Johnson [address] [place] [address] Referring Graffiti Cleaner 10/04/20 documented as of this encounter
--- OUTSIDE RECORDS SUMMARY | 2025-02-02 16:31 | XMS_ITS | Encounter Summary ---
Author Organization [facility] Address [address] [place] [address] Care Team Providers Care Limehouse Worker Name Role Phone Jax Champagne Primary Care Provider [phone] Pcp, No AUDIO VISUAL ARTS DIRECTOR Primary Care Provider Dwayne Liu Unavailable Source Comments In the event this information is protected by the Federal Confidentiality of Alcohol and Drug AbusePatient Records regulations: The Federal rules restrict any use of the information to criminally investigate or prosecute any alcohol or drug abuse patient.[facility] Encounter Details Date Type Department Care Team (Late st Contact Info) Description 02/14/2022 Get Medical Advice Reproductive Endocrinology Infertility [address] [place] [address] Dmitry Oh MD [address] [place], [place] [phone] Testing Social History Tobacco Use Types Packs/Day Years [...] N ot on file 10/15/2020 Data from: https://www.neighborhoodatlas.medicine.[facility]/. Last address used for calculation Not on file 10/15/2020 Comments No Sex and Gender Information Value Date Recorded Sex Assigned at Female 06/12/2021 8:50 PM EDT Legal Sex Female 3:20 PM EST Gender Identity Female 06/12/2021 8:50 PM EDT Sexual Orientation Straight 06/12/2021 8: 50 PM EDT COVID-19 Exposure Response Date Recorded In the last 10 days, have yo u been in contact with someone who was confirmed or suspected to have Coronavirus/COVID-19? No / Unsure 01/23/2022 8:09 AM EDT documented as of this encounter Plan of Treatment Upcoming Encounters Date Type Department Care Team (Late st Contact Info) Description 03/23/2025 10:[address] AM EDT [facility] Reproductive Endocrinology Infertility [address] [place] [address] Santa No MD [address] [place] [address] infertility documented as of this encounter Visit Diagnoses Not on filedocumented in this encounter Care Teams Limehouse Worker Relationship Specialty Start Date End Date Jax Champagne PCP - General 03/21/09 03/28/22 Karla Hendrickson APRN PCP - General 03/29/22 10/14/22 Dwayne Johnson [address] [place] [phone] Referring Dental Hygienist Mobile Coordinator 10/04/20 documented as of this encounter
--- OUTSIDE RECORDS SUMMARY | 2025-02-02 16:31 | XMS_ITS | Encounter Summary ---
Author Organization [facility] Address [address] [place] [address] Care Team Providers Care Supervisor Epoxy Fabrication Name Role Phone Dwayne Johnson Unavailable Source Comments In the event this information is protected by the Federal Confidentiality of Alcohol and Drug AbusePatient Records regulations: The Federal rules restrict any use of the information to criminally investigate or prosecute any alcohol or drug abuse patient.[facility] Encounter Details Date Type Department Care Team (Late st Contact Info) Description 07/31/2023 Patient Msg Allergy [address] [place] [phone] Provider, Ccf allergy appointment Social History Tobacco Use Types Packs/Day Years [...] is lower risk 7 02/18/2023 Data from: https://www.neighborhoodatlas.medicine.[facility].edu/. Last address used for calculation [...] Description 03/23/2025 10:00 AM EDT [facility] Reproductive Endocrinology Infertility [address] [place] [address] Santa No MD [address] [place], [place] [phone] infertility documented as of this encounter Visit Diagnoses Not on filedocumented in this encounter Care Teams Supervisor Epoxy Fabrication Relationship Specialty Start Date End Date Dwayne Johnson [address] [place] [address] Referring Business Enterprise Officer 10/04/20 documented as of this encounter
--- OUTSIDE RECORDS SUMMARY | 2025-02-02 16:31 | XMS_ITS | Encounter Summary ---
Author Organization [facility] Address [address] [place] [address] Care Team Providers Care Slat Twister Name Role Phone Dwayne Johnson Unavailable Source Comments In the event this information is protected by the Federal Confidentiality of Alcohol and Drug AbusePatient Records regulations: The Federal rules restrict any use of the information to criminally investigate or prosecute any alcohol or drug abuse patient.[facility] Encounter Details Date Type Department Care Team (Late st Contact Info) Description 06/26/2023 Patient Msg Reproductive Endocrinology Infertility [address] [place] [address] Provider, Ccf Re: Dexamethason Social History Tobacco Use Types Packs/Day Years [...] is lower risk 7 02/18/2023 Data from: https://www.neighborhoodatlas.medicine.[facility].edu/. Last address used for calculation [address] [...] [facility] Reproductive Endocrinology Infertility [address] [place] [address] Santa No MD [address] [place], [place] [phone] infertility documented as of this encounter Visit Diagnoses Not on filedocumented in this encounter Care Teams Slat Twister Relationship Specialty Start Date End Date Dwayne Johnson: [phone] [address] [place] [address] Referring Commercial Driver'S License Driver 10/04/20 documented as of this encounter
--- OUTSIDE RECORDS SUMMARY | 2025-02-02 16:31 | XMS_ITS | Encounter Summary ---
Author Organization [facility] Address [address] [place] [address] Care Team Providers Care Sanitation Worker Cleaning Machinery Name Role Phone Dwayne Johnson Unavailable Source Comments In the event this information is protected by the Federal Confidentiality of Alcohol and Drug AbusePatient Records regulations: The Federal rules restrict any use of the information to criminally investigate or prosecute any alcohol or drug abuse patient.[facility] Encounter Details Date Type Department Care Team (Latest Contact Info) Description 06/10/2024 Patient Msg Reproductive Endocrinology Infertility [address] [place] [address] Provider, Ccf Super Ov Plan 06/10/24 Social History Tobacco Use Types Packs/Day Years [...] is lower risk 7 08/19/2023 Data from: https://www.neighborhoodatlas.medicine.[facility].edu/. Last address used for calculation [address] [...] Contact Info) Description 03/23/2025 10:00 AM EDT [facility] Reproductive Endocrinology Infertility [address] [place] [address] Santa No MD [address] [place], [place] [phone] infertility documented as of this encounter Visit Diagnoses Not on filedocumented in this encounter Care Teams Sanitation Worker Cleaning Machinery Relationship Specialty Start Date End Date Dwayne Johnson: [phone] [address] [place] [address] Referring Bung Sewer 10/04/20 documented as of this encounter
--- OUTSIDE RECORDS SUMMARY | 2025-02-02 16:31 | XMS_ITS | Encounter Summary ---
Author Organization [facility] Address [address] [place] [address] Care Team Providers Care Supervisor Solder Making Name Role Phone Pcp, No DATABASE MARKETING MANAGER Primary Care Provider Dwayne Liu Unavailable Source Comments In the event this information is protected by the Federal Confidentiality of Alcohol and Drug AbusePatient Records regulations: The Federal rules restrict any use of the information to criminally investigate or prosecute any alcohol or drug abuse patient.[facility] Encounter Details Date Type Department Care Team (Latest Contact Info) Description 08/27/2022 Get Medical Advice Reproductive Endocrinology Infertility [address] [place] [address] Dmitry Oh MD [address] [place], [place] [phone] Follicle Ultrasound Social History Tobacco Use Types Packs/Day Years [...] N ot on file 10/15/2020 Data from: https://www.neighborhoodatlas.[facility]/. Last address used for calculation Not [...] Contact Info) Description 03/23/2025 10:00 AM EDT [facility] Reproductive Endocrinology Infertility [address] [place] [address] Santa No MD [address] [place] [address] infertility documented as of this encounter Visit Diagnoses Not on filedocumented in this encounter Care Teams Supervisor Solder Making Relationship Specialty Start Date End Date PcpKarla APRN PCP - General 03/29/22 10/14/22 Dwayne Johnson [address] [place] [address] Referring Returned Goods Receiving Clerk 10/04/20 documented as of this encounter
--- OUTSIDE RECORDS SUMMARY | 2025-02-02 16:31 | XMS_ITS | Encounter Summary ---
Author Organization [facility] Address [address] [place] [address] Care Team Providers Care Tearoom Host/Hostess Name Role Phone Dwayne Johnson Unavailable Source Comments In the event this information is protected by the Federal Confidentiality of Alcohol and Drug AbusePatient Records regulations: The Federal rules restrict any use of the information to criminally investigate or prosecute any alcohol or drug abuse patient.[facility] Encounter Details Date Type Department Care Team (Latest Contact Info) Description 05/27/2024 Patient Msg Reproductive Endocrinology Infertility [address] [place] [address] Provider, Ccf Super Ov Plan 05/27/24 Social History Tobacco Use Types Packs/Day Years [...] is lower risk 7 08/19/2023 Data from: https://www.neighborhoodatlas.medicine.[facility].edu/. Last address used for calculation [address] [...] Info) Description 03/23/2025 10:00 AM EDT [facility] Reproductive Endocrinology Infertility [address] [place] [address] Santa No MD [address] [place] [place], [place] [phone] infertility documented as of this encounter Visit Diagnoses Not on filedocumented in this encounter Care Teams Tearoom Host/Hostess Relationship Specialty Start Date End Date Dwayne Johnson: [phone] [address] [place] [address] Referring Project Coordinator 10/04/20 documented as of this encounter
--- OUTSIDE RECORDS SUMMARY | 2025-02-02 16:31 | XMS_ITS | Encounter Summary ---
Author Organization [facility] Address [address] [place] [address] Care Team Providers Care Candy Puller Name Role Phone Jax Champagne Primary Care Provider [phone] Pcp, No CLAIM PROFESSIONAL Primary Care Provider Dwayne Liu Unavailable Source Comments In the event this information is protected by the Federal Confidentiality of Alcohol and Drug AbusePatient Records regulations: The Federal rules restrict any use of the information to criminally investigate or prosecute any alcohol or drug abuse patient.[facility] Encounter Details Date Type Department Care Team (Late st Contact Info) Description 12/25/2021 Get Medical Advice Reproductive Endocrinology Infertility [address] [phone] Dmitry Oh MD [address] [place] [address] Appt Social History Tobacco Use Types Packs/Day Years [...] N ot on file 10/15/2020 Data from: https://www.neighborhoodatlas.medicine.[facility]/. Last address used for calculation Not on [...] Contact Info) Description 03/23/2025 10:00 AM EDT [facility] Reproductive Endocrinology Infertility [address] [place] [address] Santa No MD [address] [place] [place], [place] [phone] infertility documented as of this encounter Visit Diagnoses Not on filedocumented in this encounter Care Teams Candy Puller Relationship Specialty Start Date End Date Jax Champagne PCP - General 03/21/09 03/28/22 PcpKarla APRN PCP - General 03/29/22 10/14/22 Dwayne Johnson [address] [place] [address] Referring Machine Brush Maker 10/04/20 documented as of this encounter
--- OUTSIDE RECORDS SUMMARY | 2025-02-02 16:31 | XMS_ITS | Encounter Summary ---
Author Organization [facility] Address [address] [place] [address] Care Team Providers Care Engraver Optical Frames Name Role Phone Dwayne Johnson Unavailable Source Comments In the event this information is protected by the Federal Confidentiality of Alcohol and Drug AbusePatient Records regulations: The Federal rules restrict any use of the information to criminally investigate or prosecute any alcohol or drug abuse patient.[facility] Encounter Details Date Type Department Care Team (Late st Contact Info) Description 08/25/2023 Patient Msg Reproductive Endocrinology Infertility [address] [place], [place] [phone] Provider, Ccf plan for 08/25/23 Social History Tobacco Use Types Packs/Day Years [...] is lower risk 7 08/19/2023 Data from: https://www.neighborhoodatlas.medicine.[facility].edu/. Last address used for calculation [address] [...] [facility] Reproductive Endocrinology Infertility [address] [place] [address] Santa No MD [address] [place] [address] infertility documented as of this encounter Visit Diagnoses Not on filedocumented in this encounter Care Teams Engraver Optical Frames Relationship Specialty Start Date End Date Dwayne Johnson [address] [place] [address] Referring Web Content Producer 10/04/20 documented as of this encounter
--- OUTSIDE RECORDS SUMMARY | 2025-02-02 16:31 | XMS_ITS | Encounter Summary ---
Author Organization [facility] Address [address] [place] [address] Care Team Providers Care Release Engineer Name Role Phone Dwayne Johnson Unavailable Source Comments In the event this information is protected by the Federal Confidentiality of Alcohol and Drug AbusePatient Records regulations: The Federal rules restrict any use of the information to criminally investigate or prosecute any alcohol or drug abuse patient.[facility] Encounter Details Date Type Department Care Team (Latest Contact Info) Description 04/07/2024 Patient Msg Reproductive Endocrinology Infertility [address] [place], [place] [phone] Provider, Ccf Plans for Midcycle Scan/IUI Social History Tobacco Use Types Packs/Day Years [...] Contact Info) Description 03/23/2025 10:[address] [facility] Reproductive Endocrinology Infertility [address] [place] [address] Santa No MD [address] [place] [address] infertility documented as of this encounter Visit Diagnoses Not on filedocumented in this encounter Care Teams Release Engineer Relationship Specialty Start Date End Date Dwayne Johnson [address] [place] [address] Referring Real Estate Transaction Manager 10/04/20 documented as of this encounter
--- OUTSIDE RECORDS SUMMARY | 2025-02-02 16:31 | XMS_ITS | Encounter Summary ---
Author Organization [facility] Address [address] [place] [address] Care Team Providers Care Public Policy Mediator Name Role Phone Pcp, No INSTALLATION SERVICE REPRESENTATIVE Primary Care Provider Dwayne Liu Unavailable Source Comments In the event this information is protected by the Federal Confidentiality of Alcohol and Drug AbusePatient Records regulations: The Federal rules restrict any use of the information to criminally investigate or prosecute any alcohol or drug abuse patient.[facility] Encounter Details Date Type Department Care Team (Late st Contact Info) Description 08/28/2022 Get Medical Advice Reproductive Endocrinology Infertility [address] [place] [phone] Dmitry Oh MD [address] [place] [address] Results Social History Tobacco Use Types Packs/Day Years [...] N ot on file 10/15/2020 Data from: https://www.neighborhoodatlas.[facility]/. Last address used for calculation Not on [...] Info) Description 03/23/2025 10:[address] [facility] Reproductive Endocrinology Infertility [address] [place] [address] Santa No MD [address] [place] [address] infertility documented as of this encounter Visit Diagnoses Not on filedocumented in this encounter Care Teams Public Policy Mediator Relationship Specialty Start Date End Date PcpKarla APRN PCP - General 03/29/22 10/14/22 Dwayne Johnson [address] [place] [address] Referring Photovoltaic Testing Technician 10/04/20 documented as of this encounter
--- OUTSIDE RECORDS SUMMARY | 2025-02-02 16:31 | XMS_ITS | Encounter Summary ---
Author Organization [facility] Address [address] [place] [address] Care Team Providers Care Laborer Golf Course Name Role Phone Pcp, No COTTON ACREAGE MEASURER Primary Care Provider Dwayne Liu Unavailable Source Comments In the event this information is protected by the Federal Confidentiality of Alcohol and Drug AbusePatient Records regulations: The Federal rules restrict any use of the information to criminally investigate or prosecute any alcohol or drug abuse patient.[facility] Encounter Details Date Type Department Care Team (Latest Contact Info) Description 09/18/2022 Get Medical Advice Reproductive Endocrinology Infertility [address] [place] [address] Dmitry Oh MD [address] [place] [address] Ultrasound results Social History Tobacco Use Types Packs/Day Years [...] N ot on file 10/15/2020 Data from: https://www.neighborhoodatlas.[facility]/. Last address used for calculation Not [...] Contact Info) Description 03/23/2025 10:00 AM EDT [facility] Reproductive Endocrinology Infertility [address] [place] [address] Santa No MD [address] [place] [address] infertility documented as of this encounter Visit Diagnoses Not on filedocumented in this encounter Care Teams Laborer Golf Course Relationship Specialty Start Date End Date PcpKarla APRN PCP - General 03/29/22 10/14/22 Dwayne Johnson [address] [place] [address] Referring Delicatessen Clerk 10/04/20 documented as of this encounter
--- OUTSIDE RECORDS SUMMARY | 2025-02-02 16:31 | XMS_ITS | Encounter Summary ---
Author Organization [facility] Address [address] [place] [address] Care Team Providers Care Litigation Secretary Name Role Phone Dwayne Johnson Unavailable Source Comments In the event this information is protected by the Federal Confidentiality of Alcohol and Drug AbusePatient Records regulations: The Federal rules restrict any use of the information to criminally investigate or prosecute any alcohol or drug abuse patient.[facility] Encounter Details Date Type Department Care Team (Late st Contact Info) Description 10/27/2022 Patient Msg Reproductive Endocrinology Infertility [address] [place] [address] Kerry Weiner PA-C [address] [place] [address] Following up Social History Tobacco Use Types [...] (1-100), lower number is lower ri sk [address] 09/29/2022 State Score (1-10), lower number is lower risk N ot on file 09/29/2022 Data from: https://www.neighborhoodatlas.medicine.[facility].edu/. Last address used for calculation [address] [place] 09/29/2022 Comments No Sex and Gender Information Value [...] Description 03/23/2025 10:00 AM EDT [facility] Reproductive Endocrinology Infertility [address] [place] [address] Santa No MD [address] [place], [place] [phone] infertility documented as of this encounter Visit Diagnoses Not on filedocumented in this encounter Care Teams Litigation Secretary Relationship Specialty Start Date End Date Dwayne Johnson [address] [place] [address] Referring Diamond Grader 10/04/20 documented as of this encounter
--- OUTSIDE RECORDS SUMMARY | 2025-02-02 16:31 | XMS_ITS | Encounter Summary ---
Author Organization [facility] Address [address] [place] [address] Care Team Providers Care Doll Wig Maker Name Role Phone Dwayne Johnson Unavailable Source Comments In the event this information is protected by the Federal Confidentiality of Alcohol and Drug AbusePatient Records regulations: The Federal rules restrict any use of the information to criminally investigate or prosecute any alcohol or drug abuse patient.[facility] Encounter Details Date Type Department Care Team (Late st Contact Info) Description 04/13/2024 Patient Msg Reproductive Endocrinology Infertility [address] [place] [address] Provider, Ccf RE: Lab Results Social History Tobacco Use Types Packs/Day [...] is lower risk 7 08/19/2023 Data from: https://www.neighborhoodatlas.medicine.[facility].edu/. Last address used for calculation [address] [...] Contact Info) Description 03/23/2025 10:00 AM EDT [facility] Reproductive Endocrinology Infertility [address] [place] [address] Santa No MD [address] [place], [place] [phone] infertility documented as of this encounter Visit Diagnoses Not on filedocumented in this encounter Care Teams Doll Wig Maker Relationship Specialty Start Date End Date Dwayne Johnson [address] [place] [address] Referring Facilities Engineer 10/04/20 documented as of this encounter
--- OUTSIDE RECORDS SUMMARY | 2025-02-02 16:31 | XMS_ITS | Encounter Summary ---
Author Organization [facility] Address [address] [place] [address] Care Team Providers Care Crts Name Role Phone Dwayne Johnson Unavailable Source Comments In the event this information is protected by the Federal Confidentiality of Alcohol and Drug AbusePatient Records regulations: The Federal rules restrict any use of the information to criminally investigate or prosecute any alcohol or drug abuse patient.[facility] Encounter Details Date Type Department Care Team (Latest Contact Info) Description 06/10/2024 Patient Msg Reproductive Endocrinology Infertility [address] [place], [place] [phone] Provider, Ccf RE: Additional Medications Social History Tobacco Use Types Packs/Day Years [...] is lower risk 7 08/19/2023 Data from: https://www.neighborhoodatlas.medicine.[facility].edu/. Last address used for calculation [...] Contact Info) Description 03/23/2025 10:00 AM EDT [facility] Reproductive Endocrinology Infertility [address] [place] [address] Santa No MD [address] [place], [place] [phone] infertility documented as of this encounter Visit Diagnoses Not on filedocumented in this encounter Care Teams Crts Relationship Specialty Start Date End Date Dwayne Johnson [address] [place] [address] Referring Shake Cutter 10/04/20 documented as of this encounter
--- OUTSIDE RECORDS SUMMARY | 2025-02-02 16:31 | XMS_ITS | Encounter Summary ---
Author Organization [facility] Address [address] [place] [address] Care Team Providers Care Safety And Occupational Health Manager Name Role Phone Dwayne Johnson Unavailable Source Comments In the event this information is protected by the Federal Confidentiality of Alcohol and Drug AbusePatient Records regulations: The Federal rules restrict any use of the information to criminally investigate or prosecute any alcohol or drug abuse patient.[facility] Encounter Details Date Type Department Care Team (Late st Contact Info) Description 07/30/2023 Patient Msg Reproductive Endocrinology Infertility [address] [place] [phone] Provider, Ccf Trigger tonight Social History Tobacco Use Types Packs/Day Years [...] is lower risk 7 02/18/2023 Data from: https://www.neighborhoodatlas.medicine.[facility].edu/. Last address used for calculation [address] [...] Contact Info) Description 03/23/2025 10:00 AM EDT [facility] Reproductive Endocrinology Infertility [address] [place] [address] Santa No MD [address] [facility] [place] [address] infertility documented as of this encounter Visit Diagnoses Not on filedocumented in this encounter Care Teams Safety And Occupational Health Manager Relationship Specialty Start Date End Date Dwayne Johnson [address] [place] [address] Referring Recycling Coordinator 10/04/20 documented as of this encounter
--- OUTSIDE RECORDS SUMMARY | 2025-02-02 16:31 | XMS_ITS | Encounter Summary ---
Author Organization [facility] Address [address] [place] [address] Care Team Providers Care Customer Advocacy Manager Name Role Phone Dwayne Johnson Unavailable Source Comments In the event this information is protected by the Federal Confidentiality of Alcohol and Drug AbusePatient Records regulations: The Federal rules restrict any use of the information to criminally investigate or prosecute any alcohol or drug abuse patient.[facility] Reason for Visit * Reason Comments pregnyl refill Encounter Details Date Type Department Care Team (Late st Contact Info) Description 07/13/2024 Telephone Reproductive Endocrinology Infertility [address] [phone] [place] [address] [place] [address] pregnyl refill Social History Tobacco Use Types Packs/Day Years [...] is lower risk 7 08/19/2023 Data from: https://www.neighborhoodatlas.medicine.[facility].edu/. Last address used for calculation [address] 08/19/2023 Comments No Sex and Gender Information Value Date Recorded Sex Assigned at Female 06/12/2021 8:50 PM EDT Legal Sex Female 3:20 PM EST Gender Identity Female 06/12/2021 8:50 PM EDT Sexual Orientation Straight 06/12/2021 8: 50 PM EDT documented as of this encounter Miscellaneous Notes * Telephone Encounter - Wen Gómez RN - 07/13/2024 10:46 AM EDT Pregnyl trigger ordered . Wen Gómez RN July 13, 2024 10:46 AM * Telephone Encounter - Ana Sotomayor - 07/13/2024 9:44 AM EDT Pt would like to make sure pregnyl is refilled documented in this encounter Plan of Treatment Upcoming Encounters Date Type Department Care Team (Late st Contact Info) Description 03/23/2025 10:00 AM EDT [facility] Reproductive Endocrinology Infertility [address] [place] [address] Santa No MD [address] [place] [address] infertility documented as of this encounter Visit Diagnoses Not on filedocumented in this encounter Care Teams Customer Advocacy Manager Relationship Specialty Start Date End Date Dwayne Johnson [address] [place] [address] Referring Character Actor 10/04/20 documented as of this encounter
--- OUTSIDE RECORDS SUMMARY | 2025-02-02 16:31 | XMS_ITS | Encounter Summary ---
Author Organization [facility] Address [address] [place] [address] Care Team Providers Care Grades 1 Thru 6 Visiting Teacher Name Role Phone Dwayne Johnson Unavailable Source Comments In the event this information is protected by the Federal Confidentiality of Alcohol and Drug AbusePatient Records regulations: The Federal rules restrict any use of the information to criminally investigate or prosecute any alcohol or drug abuse patient.[facility] Encounter Details Date Type Department Care Team (Late st Contact Info) Description 08/18/2023 Patient Msg Reproductive Endocrinology Infertility [address] [place], [place] [phone] Provider, Ccf future appt Social History Tobacco Use Types Packs/Day Years [...] Data from: https://www.neighborhoodatlas.medicine.[facility].edu/. Last address used for calculation [address] 08/19/2023 Comments No Sex and Gender Information Value Date Recorded Sex Assigned at Female 06/12/2021 8:50 PM EDT Legal Sex Female 3:20 PM EST Gender Identity Female 06/12/2021 8:50 PM EDT Sexual Orientation Straight 06/12/2021 8 :50 PM EDT documented as of this encounter Plan of Treatment Upcoming Encounters Date Type Department Care Team (Late st Contact Info) Description 03/23/2025 10:00 AM EDT [facility] Reproductive Endocrinology Infertility [address] [place] [address] Santa No MD [address] [place], [place] [phone] infertility documented as of this encounter Visit Diagnoses Not on filedocumented in this encounter Care Teams Grades 1 Thru 6 Visiting Teacher Relationship Specialty Start Date End Date Dwayne Johnson [address] [place] [address] Referring Smoking Pipes Cleaner 10/04/20 documented as of this encounter
--- OUTSIDE RECORDS SUMMARY | 2025-02-02 16:31 | XMS_ITS | Encounter Summary ---
Author Organization [facility] Address [address] [place] [address] Care Team Providers Care Matrix Worker Name Role Phone Pcp, No CHARGE ENTRY Primary Care Provider Dwayne Liu Unavailable Source Comments In the event this information is protected by the Federal Confidentiality of Alcohol and Drug AbusePatient Records regulations: The Federal rules restrict any use of the information to criminally investigate or prosecute any alcohol or drug abuse patient.[facility] Encounter Details Date Type Department Care Team (Late st Contact Info) Description 08/28/2022 Get Medical Advice Reproductive Endocrinology Infertility [address] [place] [phone] Dmitry Oh MD [address] [place] [address] Results Social History Tobacco Use [...] N ot on file 10/15/2020 Data from: https://www.neighborhoodatlas.[facility]/. Last address used for calculation Not on [...] 03/23/2025 10:00 AM EDT [facility] Reproductive Endocrinology Infertility [address] [place] [address] Santa No MD [address] [place] [address] infertility documented as of this encounter Visit Diagnoses Not on filedocumented in this encounter Care Teams Matrix Worker Relationship Specialty Start Date End Date PcpKarla APRN PCP - General 03/29/22 10/14/22 Dwayne Johnson [address] [place] [address] Referring Automotive Collision Repair Instructor 10/04/20 documented as of this encounter
--- OUTSIDE RECORDS SUMMARY | 2025-02-02 16:31 | XMS_ITS | Encounter Summary ---
Author Organization [facility] Address [address] [place] [address] Care Team Providers Care Penciller Name Role Phone Dwayne Johnson Unavailable Source Comments In the event this information is protected by the Federal Confidentiality of Alcohol and Drug AbusePatient Records regulations: The Federal rules restrict any use of the information to criminally investigate or prosecute any alcohol or drug abuse patient.[facility] Encounter Details Date Type Department Care Team (Latest Contact Info) Description 07/17/2023 Patient Msg Reproductive Endocrinology Infertility [address] [place] [phone] Provider, Ccf Super ovulation plan Social History Tobacco Use Types Packs/Day Years [...] lower risk 7 02/18/2023 Data from: https://www.neighborhoodatlas.medicine.[facility].edu/. Last address used for calculation [address] [...] Info) Description 03/23/2025 10:00 AM EDT [facility] Reproductive Endocrinology Infertility [address] [place] [address] Santa No MD [address] [place], [place] [phone] infertility documented as of this encounter Visit Diagnoses Not on filedocumented in this encounter Care Teams Penciller Relationship Specialty Start Date End Date Dwayne Johnson [address] [place] [address] Referring Small Arms Repairer 10/04/20 documented as of this encounter
--- OUTSIDE RECORDS SUMMARY | 2025-02-02 16:31 | XMS_ITS | Encounter Summary ---
Author Organization [facility] Address [address] [place] [address] Care Team Providers Care Air Hose Coupler Name Role Phone Jax Champagne Primary Care Provider [phone] Pcp, No FRENCH COMBER Primary Care Provider Dwayne Liu Unavailable Source Comments In the event this information is protected by the Federal Confidentiality of Alcohol and Drug AbusePatient Records regulations: The Federal rules restrict any use of the information to criminally investigate or prosecute any alcohol or drug abuse patient.[facility] Encounter Details Date Type Department Care Team (Late st Contact Info) Description 08/12/2021 Patient Msg Reproductive Endocrinology Infertility [address] [place] [address] Dmitry Oh MD [address] [place], [place] [phone] labs Social History Tobacco Use Types Packs/Day Years [...] N ot on file 10/15/2020 Data from: https://www.neighborhoodatlas.medicine.[facility].edu/. Last address used for calculation Not on [...] Contact Info) Description 03/23/2025 10:00 AM EDT [facility] Reproductive Endocrinology Infertility [address] [place] [address] Santa No MD [address] [place], [place] [address] infertility documented as of this encounter Visit Diagnoses Not on filedocumented in this encounter Care Teams Air Hose Coupler Relationship Specialty Start Date End Date Jax Champagne PCP - General 03/21/09 03/28/22 PcpKarla APRN PCP - General 03/29/22 10/14/22 Dwayne Johnson [address] [place] [address] Referring Screw Machine Set Up Operator 10/04/20 documented as of this encounter
--- OUTSIDE RECORDS SUMMARY | 2025-02-02 16:31 | XMS_ITS | Encounter Summary ---
Author Organization [facility] Address [address] [place] [address] Care Team Providers Care Manager Semiconductor Name Role Phone Pcp, No FORKLIFT OPERATOR Primary Care Provider Dwayne Liu Unavailable Source Comments In the event this information is protected by the Federal Confidentiality of Alcohol and Drug AbusePatient Records regulations: The Federal rules restrict any use of the information to criminally investigate or prosecute any alcohol or drug abuse patient.[facility] Encounter Details Date Type Department Care Team (Latest Contact Info) Description 06/10/2022 Patient Msg Reproductive Endocrinology Infertility [address] [facility] [facility] [place] [address] Dmitry Oh MD [address] [place], [place] [phone] Request an Appointment Social History Tobacco Use [...] N ot on file 10/15/2020 Data from: https://www.neighborhoodatlas.medicine.[facility].edu/. Last address used for calculation Not on [...] Description 03/23/2025 10:00 AM EDT [facility] Reproductive Endocrinology Infertility [address] [place] [address] Santa No MD [address] [place], [place] [phone] infertility documented as of this encounter Visit Diagnoses Not on filedocumented in this encounter Care Teams Manager Semiconductor Relationship Specialty Start Date End Date PcpKarla APRN PCP - General 03/29/22 10/14/22 Dwayne Johnson [address] [place] [address] Referring Acute Care Surgeon 10/04/20 documented as of this encounter
--- OUTSIDE RECORDS SUMMARY | 2025-02-02 16:31 | XMS_ITS | Encounter Summary ---
Author Organization [facility] Address [address] [place] [address] Care Team Providers Care Elastic Yarn Twister Helper Name Role Phone Dwayne Johnson Unavailable [...] Description 10/27/2022 Patient Msg Reproductive Endocrinology Infertility [address] [place] [address] Kerry Weiner PA-C [address] [place] [address] Following up Social History Tobacco [...] N ot on file 09/29/2022 Data from: https://www.neighborhoodatlas.medicine.[facility].edu/. Last address used for calculation [address] 09/29/2022 Comments No Sex and Gender [...] EDT [facility] Reproductive Endocrinology Infertility [address] [place] [address] Santa No MD [address] [place], [place] [address] infertility documented as of this encounter Visit Diagnoses Not on filedocumented in this encounter Care Teams Elastic Yarn Twister Helper Relationship Specialty Start Date End Date Dwayne Johnson [address] [place] [address] Referring Assistant Offset Press Operator 10/04/20 documented as of this encounter
--- OUTSIDE RECORDS SUMMARY | 2025-02-02 16:31 | XMS_ITS | Encounter Summary ---
Author Organization [facility] Address [address] [place] [address] Care Team Providers Care Design Lead Name Role Phone Jax Champagne Edward Primary Care Provider [phone] Pcp, Karla COMPUTER METHODS ANALYST Primary Care Provider Dwayne Liu Source Comments In the event this information is protected by the Federal Confidentiality of Alcohol and Drug AbusePatient Records regulations: The Federal rules restrict any use of the information to criminally investigate or prosecute any alcohol or drug abuse patient.[facility] Encounter Details Date Type Department Care Team (Late st Contact Info) Description 04/05/2021 Patient Msg Reproductive Endocrinology Infertility [address] [place], [place] [phone] Provider, Ccf medication Social History Tobacco Use Types Packs/Day Years [...] on file 10/15/2020 Data from: https://www.neighborhoodatlas.medicine.[facility]/. Last address used for calculation Not on file 10/15/2020 Comments No Sex and Gender Information Value Date Recorded Sex Assigned at Female 06/12/2021 8:50 PM EDT Legal Sex Female 3:20 PM EST Gender Identity Female 06/12/2021 8:50 PM EDT Sexual Orientation Straight 06/12/2021 8: 50 PM EDT COVID-19 Exposure Response Date Recorded In the last month, have you been in contact with someone who was confirmed or suspected to have Coronavirus / COVID-19? Unable to assess 03/14/2021 4:35 PM EDT documented as of this encounter Plan of Treatment Upcoming Encounters Date Type Department Care Team (Late st Contact Info) Description 03/23/2025 10:00 AM EDT [facility] Reproductive Endocrinology Infertility [address] [place] [address] Santa No MD [address] [place] [address] infertility documented as of this encounter Visit Diagnoses Not on filedocumented in this encounter Care Teams Design Lead Relationship Specialty Start Date End Date Jax Champagne PCP - General 03/21/09 03/28/22 PcpKarla APRN PCP - General 03/29/22 10/14/22 Dwayne Johnson [address] [place] [address] Referring Egg Processor 10/04/20 documented as of this encounter
--- OUTSIDE RECORDS SUMMARY | 2025-02-02 16:31 | XMS_ITS | Encounter Summary ---
Author Organization [facility] Address [address] [place] [address] Care Team Providers Care Telephone Engineer Name Role Phone Dwayne Johnson Unavailable Source Comments In the event this information is protected by the Federal Confidentiality of Alcohol and Drug AbusePatient Records regulations: The Federal rules restrict any use of the information to criminally investigate or prosecute any alcohol or drug abuse patient.[facility] Encounter Details Date Type Department Care Team (Latest Contact Info) Description 06/26/2023 Patient Msg Reproductive Endocrinology Infertility [address] [place], [place] [phone] Provider, Ccf Super Ovulation Plan Social History Tobacco Use Types Packs/Day [...] is lower risk 7 02/18/2023 Data from: https://www.neighborhoodatlas.medicine.[facility].edu/. Last address used for calculation [address] [...] [facility] Reproductive Endocrinology Infertility [address] [place] [address] Santa No MD [address] [place], [place] [phone] infertility documented as of this encounter Visit Diagnoses Not on filedocumented in this encounter Care Teams Telephone Engineer Relationship Specialty Start Date End Date Dwayne Johnson [address] [place] [address] Referring Automotive Brake Technician 10/04/20 documented as of this encounter
--- OUTSIDE RECORDS SUMMARY | 2025-02-02 16:31 | XMS_ITS | Encounter Summary ---
Author Organization [facility] Address [address] [place] [address] Care Team Providers Care Helicopter Mechanic Name Role Phone Jax Champagne Primary Care Provider [phone] [phone] Pcp, No PLASTIC CUTTER Primary Care Provider Dwayne Liu Unavailable Source Comments In the event this information is protected by the Federal Confidentiality of Alcohol and Drug AbusePatient Records regulations: The Federal rules restrict any use of the information to criminally investigate or prosecute any alcohol or drug abuse patient.[facility] Encounter Details Date Type Department Care Team (Latest Contact Info) Description 03/21/2021 Get Medical Advice Reproductive Endocrinology Infertility [address] [phone] Dmitry Oh MD [address] [place], [place] [address] RE: Visit Follow Up Question Social History Tobacco Use Types Packs/Day Years [...] N ot on file 10/15/2020 Data from: https://www.neighborhoodatlas.medicine.[facility]/. Last address used for calculation Not on [...] Description 03/23/2025 10:00 AM EDT [facility] Reproductive Endocrinology Infertility [address] [place] [address] Santa No MD [address] [place] [address] infertility documented as of this encounter Visit Diagnoses Not on filedocumented in this encounter Care Teams Helicopter Mechanic Relationship Specialty Start Date End Date Jax Champagne PCP - General 03/21/09 03/28/22 Karla Hendrickson APRN PCP - General 03/29/22 10/14/22 Dwayne Johnson [address] [place] [address] Referring Civil Division Commander Deputy Sheriff 10/04/20 documented as of this encounter
--- OUTSIDE RECORDS SUMMARY | 2025-02-02 16:31 | XMS_ITS | Encounter Summary ---
Author Organization [facility] Address [address] [place] [address] Care Team Providers Care Skeins Yarn Examiner Name Role Phone Jax Champagne Primary Care Provider [phone] Pcp, No WATER TRAINER Primary Care Provider Dwayne Liu Unavailable Source Comments In the event this information is protected by the Federal Confidentiality of Alcohol and Drug AbusePatient Records regulations: The Federal rules restrict any use of the information to criminally investigate or prosecute any alcohol or drug abuse patient.[facility] Encounter Details Date Type Department Care Team (Latest Contact Info) Description 08/10/2021 Get Medical Advice Reproductive Endocrinology Infertility [address] [phone] Dmitry Oh MD [address] [place], [place] [address] Spotting/Next Steps Social History Tobacco Use Types Packs/Day Years [...] N ot on file 10/15/2020 Data from: https://www.neighborhoodatlas.medicine.[facility]/. Last address used for calculation Not [...] Contact Info) Description 03/23/2025 10:00 AM EDT [facility] Reproductive Endocrinology Infertility [address] [place] [address] Santa No MD [address] [facility] [place], [place] [phone] infertility documented as of this encounter Visit Diagnoses Not on filedocumented in this encounter Care Teams Skeins Yarn Examiner Relationship Specialty Start Date End Date Jax Champagne PCP - General 03/21/09 03/28/22 PcpKarla APRN PCP - General 03/29/22 10/14/22 Dwayne Johnson [address] [place] [address] Referring Pick Up Attendant 10/04/20 documented as of this encounter
--- OUTSIDE RECORDS SUMMARY | 2025-02-02 16:31 | XMS_ITS | Encounter Summary ---
Author Organization [facility] Address [address] [place] [address] Care Team Providers Care Waistband Setter Name Role Phone Dwayne Johnson Unavailable Source Comments In the event this information is protected by the Federal Confidentiality of Alcohol and Drug AbusePatient Records regulations: The Federal rules restrict any use of the information to criminally investigate or prosecute any alcohol or drug abuse patient.[facility] Encounter Details Date Type Department Care Team (Latest Contact Info) Description 08/19/2023 Patient Msg Reproductive Endocrinology Infertility [address] [place] [address] Provider, Ccf Super Ov Plan 08/19/23 Social History Tobacco Use Types Packs/Day Years [...] is lower risk 7 08/19/2023 Data from: https://www.neighborhoodatlas.medicine.[facility].edu/. Last address used for calculation [address] [...] Description 03/23/2025 10:00 AM EDT [facility] Reproductive Endocrinology Infertility [address] [place] [address] Santa No MD [address] [place] [address] infertility documented as of this encounter Visit Diagnoses Not on filedocumented in this encounter Care Teams Waistband Setter Relationship Specialty Start Date End Date Dwayne Johnson [address] [place] [address] Referring Chief Investigator 10/04/20 documented as of this encounter
--- OUTSIDE RECORDS SUMMARY | 2025-02-02 16:31 | XMS_ITS | Encounter Summary ---
Author Organization [facility] Address [address] [place] [address] Care Team Providers Care Medical Tech Name Role Phone Dwayne Johnson Unavailable Source Comments In the event this information is protected by the Federal Confidentiality of Alcohol and Drug AbusePatient Records regulations: The Federal rules restrict any use of the information to criminally investigate or prosecute any alcohol or drug abuse patient.[facility] Encounter Details Date Type Department Care Team (Late st Contact Info) Description 06/06/2024 Patient Msg Reproductive Endocrinology Infertility [address] [place], [place] [phone] Provider, Ccf plan for 06/06 Social History Tobacco Use Types Packs/Day Years [...] Description 03/23/2025 10:00 AM EDT [facility] Reproductive Endocrinology Infertility [address] [place] [address] Santa No MD [address] [place], [place] [phone] infertility documented as of this encounter Visit Diagnoses Not on filedocumented in this encounter Care Teams Medical Tech Relationship Specialty Start Date End Date Dwayne Johnson [address] [place] [address] Referring Take Down Sorter 10/04/20 documented as of this encounter
--- OUTSIDE RECORDS SUMMARY | 2025-02-02 16:31 | XMS_ITS | Encounter Summary ---
Author Organization [facility] Address [address] [place] [address] Care Team Providers Care Insulation Manager Name Role Phone Dwayne Johnson Unavailable Source Comments In the event this information is protected by the Federal Confidentiality of Alcohol and Drug AbusePatient Records regulations: The Federal rules restrict any use of the information to criminally investigate or prosecute any alcohol or drug abuse patient.[facility] Reason for Referral * Diagnostic Procedure Only (Routine) - Closed Specialty Diagnoses / Procedures Referred By Contac t Referred To Contact [facility] Diagnoses Primary female infertility Procedures FOLLICULAR US I US PELVIC NONOBSTETRIC IMAGE DCMTN LIMITED/F/[place] [address] [place] [address] Phone: tel: fax: [address] [address] Referral ID Status Reason Start Date Expiration Date V isits Requested Visits Authorized [id number] Closed Auto-Generate d Referral 05/26/2024 05/24/2025 5 1 Reason for Visit * Reason Comments rigid hyster Encounter Details Date Type Department Care Team (Late st Contact Info) Description 05/23/2024 Telephone Reproductive Endocrinology Infertility [address] [place] [address] [place] [address] [place] [address] rigid hyster Social History Tobacco Use Types Packs/Day Years [...] is lower risk 7 08/19/2023 Data from: https://www.neighborhoodatlas.medicine.[facility].edu/. Last address used for calculation [address] 08/19/2023 Comments No Sex and Gender Information Value Date Recorded Sex Assigned at Female 06/12/2021 8:50 PM EDT Legal Sex Female 3:20 PM EST Gender Identity Female 06/12/2021 8:50 PM EDT Sexual Orientation Straight 06/12/2021 8: 50 PM EDT documented as of this encounter Miscellaneous Notes * Telephone Encounter - Wen Gómez RN - 05/24/2024 11:34 AM EDT Returned patient call. Let her know I reached out to Dr. Tracy for a plan for patient. Wen Gómez RN May 24, 2024 11:36 AM New LOUISA plan note from Dr. Tracy. At this point, I recommend proceeding with [...] before need for follow up with me. Augusto Tracy MD Called patient. Discussed the above. She wants to proceed with another SO TIC cycle. Orders pended.Sent to Dr. Tracy to file. Patient to be scheduled Sunday 05/27 in [place] @ 7am Patient to order FSH X2 and she has trigger at home. 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 , would like to know her next steps and results documented in this encounter Plan of Treatment Upcoming Encounters Date Type Department Care Team (Late st Contact Info) Description 03/23/2025 10:00 AM EDT [facility] Reproductive Endocrinology Infertility [address] [place] [address] Santa No MD [address] [place] [address] infertility documented as of this encounter Results * FOLLICULAR US WHI (06/15/2024 6:59 AM EDT) Anatomical Region Laterality Modality Other 06/15/2024 6:59 AM EDT Narrative 06/15/2024 12:34 PM EDT Indication Follicle monitoring Impression Right Ovary: Follicle(s): [...] Visualized. no free fluid visualized Performed By: Malu Bates RDMS Read By: Lina Gilliam M.D. us Augusto Tracy MD [facility] Final Result * FOLLICULAR US [facility] (06/13/2024 8:26 AM EDT) Anatomical Region Laterality Modality Other 06/13/2024 8:26 AM EDT Narrative 06/13/2024 11:40 AM EDT Indication Follicle monitoring Impression Right Ovary: Follicle(s): [...] Acevedo; RDMS Read By: Odalis Parikh M.D. Augusto Tracy MD [facility] Final Result * (ABNORMAL) ESTRADIOL-17B BLD (06/13/2024 7:58 AM EDT) Estradiol 17B 259(H) 8 - 37 pg/mL 06/13/2024 8:39 AM EDT [facility] Comment: This test is not suitable [...] 3243 pg/mL Second trimester : 1561 to 33125 pg/mL Third trimester : 8285 to >60897 pg/mL Post-menopausal Estradiol reference range: < 41 pg/mL Reference: 1. Estradiol - E2 (Estradiol III) [package insert V 3.0 [place]]. [facility], [place], [place], February 2016. Blood BLOOD SPECIMEN / Unknown Venipuncture / Unknown 06/13/2024 7:58 AM EDT 06/13/2024 7:58 AM EDT Augusto Tracy MD LABORATORY Final Result [facility] [address] [facility] [place] [address], * (ABNORMAL) ESTRADIOL-17B BLD (06/10/2024 7:27 AM EDT) Estradiol 17B 160(H) 8 - 37 pg/mL 06/10/2024 8:16 AM EDT [facility] Comment: This test is not suitable [...] 3243 pg/mL Second trimester : 1561 to 86476 pg/mL Third trimester : 8285 to >39476 pg/mL Post-menopausal Estradiol reference range: < 41 pg/mL Reference: 1. Estradiol - E2 (Estradiol III) [package insert V 3.0 [place]]. [facility], [place], [place], February 2016. Blood BLOOD SPECIMEN / Unknown Venipuncture / Unknown 06/10/2024 7:27 AM EDT 06/10/2024 7:27 AM EDT us Augusto Tracy MD LABORATORY Final Result [facility] [address] [facility] [place] [address], [place] * FOLLICULAR US WHI (06/10/2024 6:56 AM EDT) Anatomical Region Laterality Modality Other 06/10/2024 6:56 AM EDT Narrative 06/10/2024 8:24 AM EDT Indication Follicle monitoring Impression Right Ovary: Follicle(s): [...] Fitzgerald RDMS Read By: Tiffany Gonzalez MD us Augusto Tracy MD [facility] Final Result * FOLLICULAR US WHI (06/06/2024 8:02 AM EDT) Anatomical Region Laterality Modality Other 06/06/2024 8:02 AM EDT Narrative 06/06/2024 10:50 AM EDT Indication Follicle monitoring Impression Scan for follicle [...] Acevedo; RDMS Read By: Odalis Parikh M.D. Augusto Tracy MD [facility] Final Result * (ABNORMAL) ESTRADIOL-17B BLD (06/06/2024 7:22 AM EDT) Estradiol 17B 79(H) 8 - 37 pg/mL 06/06/2024 8:26 AM EDT [facility] Comment: This test is not suitable [...] 3243 pg/mL Second trimester : 1561 to 19726 pg/mL Third trimester : 8285 to >83123 pg/mL Post-menopausal Estradiol reference range: < 41 pg/mL Reference: 1. Estradiol - E2 (Estradiol III) [package insert V 3.0 [place]]. [facility], [place], [place], February 2016. Blood BLOOD SPECIMEN / Unknown Venipuncture / Unknown 06/06/2024 7:22 AM EDT 06/06/2024 7:22 AM EDT Augusto Tracy MD LABORATORY Final Result Performing Organization Address [facility] de Phone Number [facility] [address] [facility] [place] [address], [place] * (ABNORMAL) ESTRADIOL-17B BLD (06/03/2024 6:49 AM EDT) [facility] Signature Estradiol 17B 86(H) 8 - 37 pg/mL 06/03/2024 7:36 AM EDT [facility] Comment: This test is not suitable [...] 3243 pg/mL Second trimester : 1561 to 49485 pg/mL Third trimester : 8285 to >16600 pg/mL Post-menopausal Estradiol reference range: < 41 pg/mL Reference: 1. Estradiol - E2 (Estradiol III) [package insert V 3.0 [place]]. [facility], [place], [place], February 2016. Blood BLOOD SPECIMEN / Unknown Venipuncture / Unknown 06/03/2024 6:49 AM EDT 06/03/2024 6:49 AM EDT Augusto Tracy MD LABORATORY Final Result Performing Organization Address [facility] de Phone Number [facility] [address] [facility] [place] [address], [place] * FOLLICULAR US WHI (06/03/2024 6:46 AM EDT) Anatomical Region Laterality Modality Other 06/03/2024 6:46 AM EDT Narrative 06/03/2024 9:05 AM EDT Indication Follicle monitoring Impression Right Ovary: Follicle(s): [...] Visualized. no free fluid visualized Performed By: Malu Bates RDMS Read By: Augusto Tracy M.D. Augusto Tracy MD [facility] Final Result * TYPE + SCREEN (05/27/2024 6:44 AM EDT) ABO O 05/27/2024 11:54 AM EDT [facility] Rh(D) Positive 05/27/2024 11:54 AM EDT [facility] [employer] Antibody Screen Negative 05/27/2024 11:54 AM EDT [facility] [employer] Type and Screen Expiration 05/30/2024 23:59 05/27/2024 11:54 AM EDT [facility] [employer] HIstorical Ab Scr Status NEGATIVE 05/27/2024 11:54 AM EDT [facility] [employer] Blood BLOOD SPECIMEN / Unknown Venipuncture / Unknown 05/27/2024 6:44 AM EDT 05/27/2024 6:44 AM EDT Augusto Tracy MD [facility] Final Result [facility] [address] [place] [address], * ESTRADIOL-17B BLD (05/27/2024 6:44 AM EDT) Estradiol 17B 35 8 - 37 pg/mL 05/27/2024 8:27 AM EDT [facility] Comment: This test is not suitable [...] 3243 pg/mL Second trimester : 1561 to 39560 pg/mL Third trimester : 8285 to >08704 pg/mL Post-menopausal Estradiol reference range: < 41 pg/mL Reference: 1. Estradiol - E2 (Estradiol III) [package insert V 3.0 [place]]. [facility], [place], [place], February 2016. Blood BLOOD SPECIMEN / Unknown Venipuncture / Unknown 05/27/2024 6:44 AM EDT 05/27/2024 6:44 AM EDT us Augusto Tracy MD LABORATORY Final Result [facility] [address] [facility] [place] [address], documented in this encounter Visit Diagnoses Diagnosis Primary female infertility- Primary Female infertility of unspecified origin Primary female infertility Female infertility of unspecified origin Primary female infertility Female infertility of unspecified origin Primary female infertility Female infertility of unspecified origin Primary female infertility Female infertility of unspecified origin Primary female infertility Female infertility of unspecified origin documented in this encounter Care Teams Insulation Manager Relationship Specialty Start Date End Date Dwayne Johnson [address] [place] [address] Referring Senior Insight Manager International 10/04/20 documented as of this encounter
--- OUTSIDE RECORDS SUMMARY | 2025-02-02 16:31 | XMS_ITS | Encounter Summary ---
Author Organization [facility] Address [address] [place] [address] Care Team Providers Care Job Training Specialist Name Role Phone Dwayne Johnson Unavailable Source Comments In the event this information is protected by the Federal Confidentiality of Alcohol and Drug AbusePatient Records regulations: The Federal rules restrict any use of the information to criminally investigate or prosecute any alcohol or drug abuse patient.[facility] Encounter Details Date Type Department Care Team (Late st Contact Info) Description 06/24/2023 Patient Msg Reproductive Endocrinology Infertility [address] [place], [place] [id number] Provider, Ccf Super Ov Plan Social History Tobacco Use Types Packs/Day [...] risk 7 02/18/2023 Data from: https://www.neighborhoodatlas.medicine.[facility].edu/. Last address used for calculation [address] [...] Info) Description 03/23/2025 10:[address] [facility] Reproductive Endocrinology Infertility [address] [place] [address] Santa No MD [address] [place], [place] [phone] infertility documented as of this encounter Visit Diagnoses Not on filedocumented in this encounter Care Teams Job Training Specialist Relationship Specialty Start Date End Date Dwayne Johnson [address] [place] [address] Referring Piecer Up 10/04/20 documented as of this encounter
--- OUTSIDE RECORDS SUMMARY | 2025-02-02 16:31 | XMS_ITS | Encounter Summary ---
Author Organization [facility] Address [address] [place] [address] Care Team Providers Care Diamond Expert Name Role Phone Dwayne Johnson Unavailable Source Comments In the event this information is protected by the Federal Confidentiality of Alcohol and Drug AbusePatient Records regulations: The Federal rules restrict any use of the information to criminally investigate or prosecute any alcohol or drug abuse patient.[facility] Encounter Details Date Type Department Care Team (Late st Contact Info) Description 06/17/2023 Patient Msg Reproductive Endocrinology Infertility [address] [place] [address] Provider, Ccf plans for 06/17/23 Social History Tobacco Use Types Packs/Day Years [...] 03/23/2025 10:00 AM EDT [facility] Reproductive Endocrinology Infertility [address] [place] [address] Santa No MD [address] [place] [address] infertility documented as of this encounter Visit Diagnoses Not on filedocumented in this encounter Care Teams Diamond Expert Relationship Specialty Start Date End Date Dwayne Johnson [address] [place] [address] Referring Energy Trader 10/04/20 documented as of this encounter
--- OUTSIDE RECORDS SUMMARY | 2025-02-02 16:31 | XMS_ITS | Encounter Summary ---
Author Organization [facility] Address [address] [place] [address] Care Team Providers Care Finish Repairer Name Role Phone Jax Champagne Primary Care Provider [phone] Pcp, No AUTOMOTIVE SERVICE MANAGER Primary Care Provider Dwayne Liu Source Comments In the event this information is protected by the Federal Confidentiality of Alcohol and Drug AbusePatient Records regulations: The Federal rules restrict any use of the information to criminally investigate or prosecute any alcohol or drug abuse patient.[facility] Encounter Details Date Type Department Care Team (Latest Contact Info) Description 11/30/2021 Patient Msg Reproductive Endocrinology Infertility [address] [place] [address] Dmitry Oh MD [address] [place] [address] Appointment Cancellation Request Social History Tobacco Use Types Packs/Day Years [...] ot on file 10/15/2020 Data from: https://www.neighborhoodatlas.medicine.[facility]/. Last address used for calculation [...] Info) Description 03/23/2025 10:00 AM EDT [facility] Reproductive Endocrinology Infertility [address] [place] [address] Santa No MD [address] [place] [address] infertility documented as of this encounter Visit Diagnoses Not on filedocumented in this encounter Care Teams Finish Repairer Relationship Specialty Start Date End Date Jax Champagne PCP - General 03/21/09 03/28/22 PcpKarla APRN PCP - General 03/29/22 10/14/22 Dwayne Johnson [address] [place] [address] Referring Utility Lineman 10/04/20 documented as of this encounter
--- OUTSIDE RECORDS SUMMARY | 2025-02-02 16:31 | XMS_ITS | Encounter Summary ---
Author Organization [facility] Address [address] [place] [address] Care Team Providers Care Vice President Of Finance Name Role Phone Dwayne Johnson Unavailable Source Comments In the event this information is protected by the Federal Confidentiality of Alcohol and Drug AbusePatient Records regulations: The Federal rules restrict any use of the information to criminally investigate or prosecute any alcohol or drug abuse patient.[facility] Encounter Details Date Type Department Care Team (Late st Contact Info) Description 04/15/2024 Patient Msg Reproductive Endocrinology Infertility [address] [place] [address] Provider, Ccf Plan 04/15/24 Social History Tobacco Use Types Packs/Day Years [...] is lower risk 7 08/19/2023 Data from: https://www.neighborhoodatlas.medicine.[facility].edu/. Last address used for calculation [...] Contact Info) Description 03/23/2025 10:00 AM EDT [facility] Reproductive Endocrinology Infertility [address] [place] [address] Santa No MD [address] [place], [place] [phone] infertility documented as of this encounter Visit Diagnoses Not on filedocumented in this encounter Care Teams Vice President Of Finance Relationship Specialty Start Date End Date Dwayne Johnson [address] [place] [address] Referring Wall Insulation Sprayer 10/04/20 documented as of this encounter
--- OUTSIDE RECORDS SUMMARY | 2025-02-02 16:31 | XMS_ITS | Encounter Summary ---
Author Organization [facility] Address [address] [place] [address] Care Team Providers Care Customer Quality Engineer Name Role Phone Dwayne Johnson Unavailable Source Comments In the event this information is protected by the Federal Confidentiality of Alcohol and Drug AbusePatient Records regulations: The Federal rules restrict any use of the information to criminally investigate or prosecute any alcohol or drug abuse patient.[facility] Encounter Details Date Type Department Care Team (Late st Contact Info) Description 04/08/2024 Get Medical Advice Reproductive Endocrinology Infertility [address] [address] [place] [address] [place] [address] Test results Social History Tobacco Use Types Packs/Day [...] is lower risk 7 08/19/2023 Data from: https://www.neighborhoodatlas.medicine.[facility].edu/. Last address used for calculation [address] 08/19/2023 Comments No Sex and Gender Information Value Date Recorded Sex Assigned at Female 06/12/2021 8:50 PM EDT Legal Sex Female 3:20 PM EST Gender Identity Female 06/12/2021 8:50 PM EDT Sexual Orientation Straight 06/12/2021 8: 50 PM EDT documented as of this encounter Miscellaneous Notes * Telephone Encounter - Malu Zhang RN - 04/13/2024 11:04 AM EDT Patient's lab results sent to Dr. Tracy. Malu Zhang RN April 13, 2024 11:04 AM documented in this encounter Plan of Treatment Upcoming Encounters Date Type Department Care Team (Late st Contact Info) Description 03/23/2025 10:00 AM EDT [facility] Reproductive Endocrinology Infertility [address] [place] [address] Santa No MD [address] [place], [place] [phone] infertility documented as of this encounter Visit Diagnoses Not on filedocumented in this encounter Care Teams Customer Quality Engineer Relationship Specialty Start Date End Date Dwayne Johnson [address] [place] [address] Referring Perinatal Social Worker 10/04/20 documented as of this encounter
--- OUTSIDE RECORDS SUMMARY | 2025-02-02 16:31 | XMS_ITS | Encounter Summary ---
Author Organization [facility] Address [id number] [address] [place] [address] Care Team Providers Care Fish Packer Name Role Phone Jesus Berumen MD Primary Care Provider [phone] Encounter Details Date Type Department Care Team (Late st Contact Info) Description 10/03/2022 Orders Only [facility] [address] [place] [phone] Alysha Pickens LPN Right foot pain Social History Tobacco Use Types Packs/Day Years Used Date Smoking Tobacco: Every Day Cigarettes Smokeless Tobacco: Never Alcohol Use Standard Drinks/Week Comments No 0 (1 standard drink = 0.6 oz pur e alcohol) AUDIT-C Answer Date Recorded Frequency of Alcohol Consumption Never 10/17/2019 Average Number of Drinks Not on file 020 Frequency of Binge Drinking Not on file 11/2019 PHQ-2 Answer Date Recorded Total Score 6 05/02/2022 Childcare Answer Date Recorded Childcare Unknown 02/23/2019 Employment Answer Date Recorded Employment Unknown 02/23/2019 Purpose - Life Answer Date Recorded Purpose and direction in life Unknown Comments No Sex and Gender Information Value Date Recorded Sex Assigned at Female 01/07/2024 1:19 PM EDT Legal Sex Female 11:29 AM EDT Gender Identity Female 01/07/2024 1:19 PM EDT Sexual Orientation Straight 01/07/2024 1: 19 PM EDT documented as of this encounter Plan of Treatment Upcoming Encounters Date Type Department Care Team (Late st Contact Info) Description 11/09/2025 8:30 AM EST Office Visit [facility] [address] [place] [phone] Jesus Berumen MD [address] [place] [phone] documented as of this encounter Procedures Procedure Name Priority Date/Time Associated Diagnosis Comments AMB REFERRAL TO PODIATRY Routine 09/30/2022 Right foot pain documented in this encounter Results * Ambulatory referral to Podiatry (09/30/2022) 09/30/2022 us Jax Mckeon MD OUTPATIENT REFERRAL ORDERABL ES Final Result MANUALLY TRANSCRIBED RESULTS documented in this encounter Visit Diagnoses Diagnosis Right foot pain Pain in soft tissues of limb documented in this encounter Additional Health Concerns Assessment Noted Time PHQ-9 Depression Total Score: 6 05/02/20 22 3:00 PM EDT A Body Mass Index follow-up plan has been documented for the patient 10/31/2019 12:28 PM EST documented as of this encounter Care Teams Fish Packer Relationship Specialty Start Date End Date Jesus Berumen MD [address] [place] [phone] PCP - General Internal Medicine 01/24/25 documented as of this encounter
--- OUTSIDE RECORDS SUMMARY | 2025-02-02 16:31 | XMS_ITS | Encounter Summary ---
Author Organization [facility] Address [address] [place] [address] Care Team Providers Care Vice President Global Advertising Sales Name Role Phone Dwayne Johnson Unavailable Source Comments In the event this information is protected by the Federal Confidentiality of Alcohol and Drug AbusePatient Records regulations: The Federal rules restrict any use of the information to criminally investigate or prosecute any alcohol or drug abuse patient.[facility] Encounter Details Date Type Department Care Team (Late st Contact Info) Description 07/27/2023 Patient Msg Reproductive Endocrinology Infertility [address] [place] [address] Provider, Ccf Plan 07/27 Social History Tobacco Use Types Packs/Day Years [...] is lower risk 7 02/18/2023 Data from: https://www.neighborhoodatlas.medicine.[facility].edu/. Last address used for calculation [address] [...] Contact Info) Description 03/23/2025 10:00 AM EDT [facility] Reproductive Endocrinology Infertility [address] [place] [address] Santa No MD [address] [place], [place] [phone] infertility documented as of this encounter Visit Diagnoses Not on filedocumented in this encounter Care Teams Vice President Global Advertising Sales Relationship Specialty Start Date End Date Dwayne Johnson [address] [place] [address] Referring Plastic Frame Inserter 10/04/20 documented as of this encounter
--- OUTSIDE RECORDS SUMMARY | 2025-02-02 16:32 | XMS_ITS | Encounter Summary ---
Author Organization [facility] Address [address] [place] [address] Care Team Providers Care Furniture Duster Name Role Phone Dwayne Johnson Unavailable Source Comments In the event this information is protected by the Federal Confidentiality of Alcohol and Drug AbusePatient Records regulations: The Federal rules restrict any use of the information to criminally investigate or prosecute any alcohol or drug abuse patient.[facility] Reason for Visit * Reason Onset Date Comments Refill Request 07/12/2024 Encounter Details Date Type Department Care Team (Late st Contact Info) Description 07/12/2024 Refill Reproductive Endocrinology Infertility [address] [place] [address] Kerry Weiner PA-C [address] [place] [address] Refill Request Social History Tobacco Use Types Packs/Day [...] is lower risk 7 08/19/2023 Data from: https://www.neighborhoodatlas.medicine.[facility].edu/. Last address used for calculation [address] [...] Contact Info) Description 03/23/2025 10:00 AM EDT [facility] Reproductive Endocrinology Infertility [address] [place] [address] Santa No MD [address] [place] [address] infertility documented as of this encounter Visit Diagnoses Not on filedocumented in this encounter Care Teams Furniture Duster Relationship Specialty Start Date End Date Dwayne Johnson: [phone] [address] [place] [address] Referring Managing Consultant 10/04/20 documented as of this encounter
--- OUTSIDE RECORDS SUMMARY | 2025-02-02 16:32 | XMS_ITS | Encounter Summary ---
Author Organization [facility] Address [address] [place] [address] Care Team Providers Care Maintenance Of Way Clerk Name Role Phone Dwayne Johnson Unavailable Source Comments In the event this information is protected by the Federal Confidentiality of Alcohol and Drug AbusePatient Records regulations: The Federal rules restrict any use of the information to criminally investigate or prosecute any alcohol or drug abuse patient.[facility] Encounter Details Date Type Department Care Team (Late st Contact Info) Description 07/14/2024 Patient Msg Reproductive Endocrinology Infertility [address] [place], [place] [id number] Provider, Ccf Super Ov Plan Social History [...] is lower risk 7 08/19/2023 Data from: https://www.neighborhoodatlas.medicine.[facility].edu/. Last address used for calculation [address] [...] Info) Description 03/23/2025 10:00 AM EDT [facility] Reproductive Endocrinology Infertility [address] [place] [address] Santa No MD [address] [place] [place], [place] [id number] infertility documented as of this encounter Visit Diagnoses Not on filedocumented in this encounter Care Teams Maintenance Of Way Clerk Relationship Specialty Start Date End Date Dwayne Johnson [address] [place] [address] Referring Professional Bass Fisherman 10/04/20 documented as of this encounter
--- OUTSIDE RECORDS SUMMARY | 2025-02-02 16:32 | XMS_ITS | Encounter Summary ---
Author Organization [facility] Address [address] [place] [address] Care Team Providers Care Hydrotel Operator Name Role Phone Jax Champagne Primary Care Provider [phone] Pcp, No FORMING PROCESS WORKER Primary Care Provider Dwayne Liu Unavailable Source Comments In the event this information is protected by the Federal Confidentiality of Alcohol and Drug AbusePatient Records regulations: The Federal rules restrict any use of the information to criminally investigate or prosecute any alcohol or drug abuse patient.[facility] Encounter Details Date Type Department Care Team (Latest Contact Info) Description 01/01/2021 Get Medical Advice Reproductive Endocrinology Infertility [address] [place] [address] Dmitry Oh MD [address] [place], [place] [id number] Non-Urgent Medical Question Social History Tobacco Use Types Packs/Day [...] N ot on file 10/15/2020 Data from: https://www.neighborhoodatlas.medicine.[facility]/. Last address used for calculation Not [...] Description 03/23/2025 10:00 AM EDT [facility] Reproductive Endocrinology Infertility [address] [place] [address] Santa No MD [address] [facility] [place], [place] [phone] infertility documented as of this encounter Visit Diagnoses Not on filedocumented in this encounter Care Teams Hydrotel Operator Relationship Specialty Start Date End Date Jax Champagne PCP - General 03/21/09 03/28/22 PcpKarla APRN PCP - General 03/29/22 10/14/22 Dwayne Johnson [address] [place] [address] Referring Dredging Inspector 10/04/20 documented as of this encounter
--- OUTSIDE RECORDS SUMMARY | 2025-02-02 16:32 | XMS_ITS | Encounter Summary ---
Author Organization [facility] Address [address] [place] [address] Care Team Providers Care Deployment Technician Name Role Phone Dwayne Johnson Unavailable Source Comments In the event this information is protected by the Federal Confidentiality of Alcohol and Drug AbusePatient Records regulations: The Federal rules restrict any use of the information to criminally investigate or prosecute any alcohol or drug abuse patient.[facility] Encounter Details Date Type Department Care Team (Late st Contact Info) Description 09/15/2023 Get Medical Advice Reproductive Endocrinology Infertility [address] [place] [address] Dmitry Oh MD [address] [place] [address] Metformin Social History Tobacco Use Types Packs/Day Years [...] risk 7 08/19/2023 Data from: https://www.neighborhoodatlas.medicine.[facility].edu/. Last address used for calculation [address] 08/19/2023 Comments No Sex and Gender [...] Contact Info) Description 03/23/2025 10:00 AM EDT [facility] Reproductive Endocrinology Infertility [address] [place] [address] Santa No MD [address] [place], [place] [phone] infertility documented as of this encounter Visit Diagnoses Not on filedocumented in this encounter Care Teams Deployment Technician Relationship Specialty Start Date End Date Dwayne Johnson [address] [place] [address] Referring Geology Instructor 10/04/20 documented as of this encounter
--- OUTSIDE RECORDS SUMMARY | 2025-02-02 16:32 | XMS_ITS | Encounter Summary ---
Author Organization [facility] Address [address] [place] [address] Care Team Providers Care Csr Name Role Phone Dwayne Johnson Unavailable Source Comments In the event this information is protected by the Federal Confidentiality of Alcohol and Drug AbusePatient Records regulations: The Federal rules restrict any use of the information to criminally investigate or prosecute any alcohol or drug abuse patient.[facility] Encounter Details Date Type Department Care Team (Latest Contact Info) Description 08/10/2024 Patient Msg Reproductive Endocrinology Infertility [address] [place] [address] Provider, Ccf Super Ov Plan 08/10/24 Social History Tobacco Use Types Packs/Day Years [...] risk 7 08/19/2023 Data from: https://www.neighborhoodatlas.medicine.[facility].edu/. Last address used for calculation [...] Contact Info) Description 03/23/2025 10:00 AM EDT [facility] Reproductive Endocrinology Infertility [address] [place] [address] Santa No MD [address] [place], [place] [phone] infertility documented as of this encounter Visit Diagnoses Not on filedocumented in this encounter Care Teams Csr Relationship Specialty Start Date End Date Dwayne Johnson: [phone] [address] [place] [address] Referring Duck Operator 10/04/20 documented as of this encounter
--- OUTSIDE RECORDS SUMMARY | 2025-02-02 16:32 | XMS_ITS | Encounter Summary ---
Author Organization [facility] Address [address] [place] [address] Care Team Providers Care Graphic Design Intern Name Role Phone Dwayne Johnson Unavailable Source Comments In the event this information is protected by the Federal Confidentiality of Alcohol and Drug AbusePatient Records regulations: The Federal rules restrict any use of the information to criminally investigate or prosecute any alcohol or drug abuse patient.[facility] Encounter Details Date Type Department Care Team (Late st Contact Info) Description 02/18/2023 Get Medical Advice Reproductive Endocrinology Infertility [address] [place] [address] Dmitry Oh MD [address] [place] [address] Appointment Social History Tobacco Use Types Packs/Day [...] lower risk 7 02/18/2023 Data from: https://www.neighborhoodatlas.medicine.[facility].edu/. Last address used for calculation [address] 02/18/2023 Comments No Sex and Gender Information [...] Info) Description 03/23/2025 10:00 AM EDT [facility] Reproductive Endocrinology Infertility [address] [place] [address] Santa No MD [address] [place], [place] [phone] infertility documented as of this encounter Visit Diagnoses Not on filedocumented in this encounter Care Teams Graphic Design Intern Relationship Specialty Start Date End Date Dwayne Johnson [address] [place] [address] Referring Administrative Resident 10/04/20 documented as of this encounter
--- OUTSIDE RECORDS SUMMARY | 2025-02-02 16:32 | XMS_ITS | Encounter Summary ---
Author Organization [facility] Address [address] [place] [address] Care Team Providers Care Line Manager Name Role Phone Dwayne Johnson Unavailable Source Comments In the event this information is protected by the Federal Confidentiality of Alcohol and Drug AbusePatient Records regulations: The Federal rules restrict any use of the information to criminally investigate or prosecute any alcohol or drug abuse patient.[facility] Encounter Details Date Type Department Care Team (Late st Contact Info) Description 10/23/2023 Patient Msg Maternal Medicine [address] [place], [place] [phone] Provider, Ccf Work Letter Social History Tobacco Use Types Packs/Day Years [...] is lower risk 7 08/19/2023 Data from: https://www.neighborhoodatlas.medicine.[facility].edu/. Last address used for calculation [address] 08/19/2023 Comments Yes Sex and Gender Information Value Date Recorded [...] AM EDT [facility] Reproductive Endocrinology Infertility [address] [place] [address] Santa No MD [address] [place], [place] [phone] infertility documented as of this encounter Visit Diagnoses Not on filedocumented in this encounter Care Teams Line Manager Relationship Specialty Start Date End Date Dwayne Johnson [address] [place] [address] Referring Flight Simulator Teacher 10/04/20 documented as of this encounter
--- OUTSIDE RECORDS SUMMARY | 2025-02-02 16:32 | XMS_ITS | Encounter Summary ---
Author Organization [facility] Address [address] [place] [address] Care Team Providers Care Label Press Operator Name Role Phone Dwayne Johnson Unavailable Source Comments In the event this information is protected by the Federal Confidentiality of Alcohol and Drug AbusePatient Records regulations: The Federal rules restrict any use of the information to criminally investigate or prosecute any alcohol or drug abuse patient.[facility] Encounter Details Date Type Department Care Team (Late st Contact Info) Description 12/15/2022 Patient Msg Reproductive Endocrinology Infertility [address] [place] [address] Sushila Vee APRN.WET END SUPERVISOR [address] [place] [place] [address] Nexts steps Social History Tobacco Use Types Packs/Day Years [...] N ot on file 09/29/2022 Data from: https://www.neighborhoodatlas.medicine.[facility].edu/. Last address used for calculation [address] 09/29/2022 Comments No Sex and Gender Information [...] Description 03/23/2025 10:00 AM EDT [facility] Reproductive Endocrinology Infertility [address] [place] [address] Santa No MD [address] [place], [place] [phone] infertility documented as of this encounter Visit Diagnoses Not on filedocumented in this encounter Care Teams Label Press Operator Relationship Specialty Start Date End Date Dwayne Johnson [address] [place] [address] Referring Yolk Spray Drier 10/04/20 documented as of this encounter
--- OUTSIDE RECORDS SUMMARY | 2025-02-02 16:32 | XMS_ITS | Encounter Summary ---
Author Organization [facility] Address [address] [place] [address] Care Team Providers Care Sports Marketing Specialist Name Role Phone Dwayne Johnson Unavailable Source Comments In the event this information is protected by the Federal Confidentiality of Alcohol and Drug AbusePatient Records regulations: The Federal rules restrict any use of the information to criminally investigate or prosecute any alcohol or drug abuse patient.[facility] Encounter Details Date Type Department Care Team (Latest Contact Info) Description 04/17/2023 Patient Msg Reproductive Endocrinology Infertility [address] [place], [place] [phone] Provider, Ccf Questionnaire Submission Social History Tobacco Use Types Packs/Day Years [...] is lower risk 7 02/18/2023 Data from: https://www.neighborhoodatlas.medicine.[facility].edu/. Last address used for calculation [...] Contact Info) Description 03/23/2025 10:00 AM EDT [facility] Reproductive Endocrinology Infertility [address] [place] [address] Santa No MD [address] [place], [place] [phone] infertility documented as of this encounter Visit Diagnoses Not on filedocumented in this encounter Care Teams Sports Marketing Specialist Relationship Specialty Start Date End Date Dwayne Johnson [address] [place] [address] Referring Company Tanker Truck Driver 10/04/20 documented as of this encounter
--- OUTSIDE RECORDS SUMMARY | 2025-02-02 16:32 | XMS_ITS | Encounter Summary ---
Author Organization [facility] Address [address] [place] [address] Care Team Providers Care Weatherization And Housing Inspector Name Role Phone Dwayne Johnson Unavailable Source Comments In the event this information is protected by the Federal Confidentiality of Alcohol and Drug AbusePatient Records regulations: The Federal rules restrict any use of the information to criminally investigate or prosecute any alcohol or drug abuse patient.[facility] Encounter Details Date Type Department Care Team (Late st Contact Info) Description 11/07/2022 Patient Msg Reproductive Endocrinology Infertility [address] [place] [address] Sushila Vee APRN.CAMPUS AMBASSADOR [address] [place] [id number] Next steps Social History Tobacco Use Types Packs/Day [...] N ot on file 09/29/2022 Data from: https://www.neighborhoodatlas.medicine.[facility].edu/. Last address used for calculation [address] [...] AM EDT [facility] Reproductive Endocrinology Infertility [address] [place] [address] Santa No MD [address] [place], [place] [phone] infertility documented as of this encounter Visit Diagnoses Not on filedocumented in this encounter Care Teams Weatherization And Housing Inspector Relationship Specialty Start Date End Date Dwayne Johnson [address] [place] [address] Referring Primary Care Coordinator 10/04/20 documented as of this encounter
--- OUTSIDE RECORDS SUMMARY | 2025-02-02 16:32 | XMS_ITS | Encounter Summary ---
Author Organization [facility] Address [address] [place] [address] Care Team Providers Care Manufacturing Plant Technician Name Role Phone Dwayne Johnson Unavailable Source Comments In the event this information is protected by the Federal Confidentiality of Alcohol and Drug AbusePatient Records regulations: The Federal rules restrict any use of the information to criminally investigate or prosecute any alcohol or drug abuse patient.[facility] Encounter Details Date Type Department Care Team (Late st Contact Info) Description 08/15/2024 Patient Msg Reproductive Endocrinology Infertility [address] [place], [place] [phone] Provider, Ccf Plan 08/15 Social History Tobacco Use Types Packs/Day Years [...] Data from: https://www.neighborhoodatlas.medicine.[facility].edu/. Last address used for calculation [address] [...] Contact Info) Description 03/23/2025 10:00 AM EDT [facility] Reproductive Endocrinology Infertility [address] [place] [address] Santa No MD [address] [place], [place] [phone] infertility documented as of this encounter Visit Diagnoses Not on filedocumented in this encounter Care Teams Manufacturing Plant Technician Relationship Specialty Start Date End Date Dwayne Johnson [address] [place] [address] Referring Postal Inspector 10/04/20 documented as of this encounter
--- OUTSIDE RECORDS SUMMARY | 2025-02-02 16:32 | XMS_ITS | Encounter Summary ---
Author Organization [facility] Address [address] [place] [address] Care Team Providers Care Legal Librarian Name Role Phone Dwayne Johnson Unavailable Source Comments In the event this information is protected by the Federal Confidentiality of Alcohol and Drug AbusePatient Records regulations: The Federal rules restrict any use of the information to criminally investigate or prosecute any alcohol or drug abuse patient.[facility] Encounter Details Date Type Department Care Team (Late st Contact Info) Description 11/28/2022 Patient Msg Reproductive Endocrinology Infertility [address] [place] [address] Sushila Vee APRN.DIRECTOR OF GLOBAL MARKETING [address] [place] [id number] Medication Social History Tobacco Use Types Packs/Day Years [...] N ot on file 09/29/2022 Data from: https://www.neighborhoodatlas.medicine.[facility].edu/. Last address used for calculation [...] Contact Info) Description 03/23/2025 10:00 AM EDT [facility] Reproductive Endocrinology Infertility [address] [place] [address] Santa No MD [address] [place], [place] [phone] infertility documented as of this encounter Visit Diagnoses Not on filedocumented in this encounter Care Teams Legal Librarian Relationship Specialty Start Date End Date Dwayne Johnson [address] [place] [address] Referring Electrician Sound 10/04/20 documented as of this encounter
--- OUTSIDE RECORDS SUMMARY | 2025-02-02 16:32 | XMS_ITS | Encounter Summary ---
Author Organization [facility] Address [address] [place] [address] Care Team Providers Care Residential Program Worker Name Role Phone Dwayne Johnson Unavailable Source Comments In the event this information is protected by the Federal Confidentiality of Alcohol and Drug AbusePatient Records regulations: The Federal rules restrict any use of the information to criminally investigate or prosecute any alcohol or drug abuse patient.[facility] Encounter Details Date Type Department Care Team (Late st Contact Info) Description 07/07/2024 Patient Msg Reproductive Endocrinology Infertility [address] [place], [place] [phone] Provider, Ccf Super Ov Cycle Social History Tobacco Use Types Packs/Day Years [...] lower risk 7 08/19/2023 Data from: https://www.neighborhoodatlas.medicine.[facility].edu/. Last address used for calculation [...] Description 03/23/2025 10:00 AM EDT [facility] Reproductive Endocrinology Infertility [address] [place] [address] Santa No MD [address] [place], [place] [phone] infertility documented as of this encounter Visit Diagnoses Not on filedocumented in this encounter Care Teams Residential Program Worker Relationship Specialty Start Date End Date Dwayne Johnson [address] [place] [address] Referring Waterworks Pump Station Operator 10/04/20 documented as of this encounter
--- OUTSIDE RECORDS SUMMARY | 2025-02-02 16:32 | XMS_ITS | Encounter Summary ---
Author Organization [facility] Address [address] [place] [address] Care Team Providers Care Concrete Products Dispatcher Name Role Phone Dwayne Johnson Unavailable Source Comments In the event this information is protected by the Federal Confidentiality of Alcohol and Drug AbusePatient Records regulations: The Federal rules restrict any use of the information to criminally investigate or prosecute any alcohol or drug abuse patient.[facility] Encounter Details Date Type Department Care Team (Late st Contact Info) Description 09/15/2023 Patient Msg Reproductive Endocrinology Infertility [address] [place] [address] Sushila Vee APRN.DRUM MAKER [address] [place] [place] [address] Next steps Social History Tobacco Use Types [...] is lower risk 7 08/19/2023 Data from: https://www.neighborhoodatlas.medicine.[facility].edu/. Last address used for calculation [address] 08/19/2023 Comments No Sex and Gender [...] 03/23/2025 10:00 AM EDT [facility] Reproductive Endocrinology Infertility [address] [place] [address] Satna No MD [address] [place], [place] [phone] infertility documented as of this encounter Visit Diagnoses Not on filedocumented in this encounter Care Teams Concrete Products Dispatcher Relationship Specialty Start Date End Date Dwayne Johnson [address] [place] [address] Referring Property Management Intern 10/04/20 documented as of this encounter
--- OUTSIDE RECORDS SUMMARY | 2025-02-02 16:32 | XMS_ITS | Encounter Summary ---
Author Organization [facility] Address [address] [place] [address] Care Team Providers Care Coating Supervisor Name Role Phone Jax Champagne Primary Care Provider [phone] [phone] Pcp, No PEDIATRIC CLINICAL DIETICIAN Primary Care Provider UnavailDwayne Monson Unavailable Source Comments In the event this information is protected by the Federal Confidentiality of Alcohol and Drug AbusePatient Records regulations: The Federal rules restrict any use of the information to criminally investigate or prosecute any alcohol or drug abuse patient.[facility] Encounter Details Date Type Department Care Team (Late st Contact Info) Description 10/22/2020 Patient Msg Reproductive Endocrinology Infertility [address] [place] [id number] Sushila Vee APRN.CLINICAL ADMINISTRATIVE COORDINATOR [address] [place] [id number] Follow up Social History Tobacco Use Types [...] N ot on file 10/15/2020 Data from: https://www.neighborhoodatlas.medicine.[facility]/. Last address used for calculation [...] or suspected to have Coronavirus / COVID-19? No / Unsure 10/15/2020 9:44 AM EST documented as of this encounter Plan of Treatment Upcoming Encounters Date Type Department Care Team (Late st Contact Info) Description 03/23/2025 10:00 AM EDT [facility] Reproductive Endocrinology Infertility [address] [place] [address] Santa No MD [address] [place] [address] infertility documented as of this encounter Visit Diagnoses Not on filedocumented in this encounter Care Teams Coating Supervisor Relationship Specialty Start Date End Date Jax Champagne PCP - General 03/21/09 03/28/22 Karla Hendrickson APRN PCP - General 03/29/22 10/14/22 Dwayne Johnson [address] [place] [address] Referring Groundwater Consultant 10/04/20 documented as of this encounter
--- OUTSIDE RECORDS SUMMARY | 2025-02-02 16:32 | XMS_ITS | Encounter Summary ---
Author Organization [facility] Address [address] [place] [address] Care Team Providers Care Production Cost Estimator Name Role Phone Dwayne Johnson Unavailable Source Comments In the event this information is protected by the Federal Confidentiality of Alcohol and Drug AbusePatient Records regulations: The Federal rules restrict any use of the information to criminally investigate or prosecute any alcohol or drug abuse patient.[facility] Encounter Details Date Type Department Care Team (Late st Contact Info) Description 02/20/2023 Patient Msg Reproductive Endocrinology Infertility [address] [place] [address] Provider, Ccf Folow Social History Tobacco Use Types Packs/Day Years [...] is lower risk 7 02/18/2023 Data from: https://www.neighborhoodatlas.medicine.[facility].edu/. Last address used for calculation [address] [...] AM EDT [facility] Reproductive Endocrinology Infertility [address] [place] [address] Santa No MD [address] [place], [place] [address] infertility documented as of this encounter Visit Diagnoses Not on filedocumented in this encounter Care Teams Production Cost Estimator Relationship Specialty Start Date End Date Dwayne Johnson [address] [place] [address] Referring Windows Architect 10/04/20 documented as of this encounter
--- OUTSIDE RECORDS SUMMARY | 2025-02-02 16:32 | XMS_ITS | Encounter Summary ---
Author Organization [facility] Address [address] [place] [address] Care Team Providers Care Weight Shifter Name Role Phone Dwayne Johnson Unavailable Source Comments In the event this information is protected by the Federal Confidentiality of Alcohol and Drug AbusePatient Records regulations: The Federal rules restrict any use of the information to criminally investigate or prosecute any alcohol or drug abuse patient.[facility] Encounter Details Date Type Department Care Team (Late st Contact Info) Description 10/27/2023 Patient Msg Reproductive Endocrinology Infertility [address] [place] [address] Dmitry Oh MD [address] [place] [address] surgery Social History Tobacco Use Types Packs/Day Years [...] is lower risk 7 08/19/2023 Data from: https://www.neighborhoodatlas.medicine.[facility].edu/. Last address used for calculation [address] [place] 08/19/2023 Comments Yes Sex and Gender Information Value Date Recorded Sex Assigned at Female 06/12/2021 8:50 PM EDT Legal Sex Female 3:20 PM EST Gender Identity Female 06/12/2021 8:50 PM EDT Sexual Orientation Straight 06/12/2021 8: 50 PM EDT documented as of this encounter Plan of Treatment Upcoming Encounters Date Type Department Care Team (Late st Contact Info) Description 03/23/2025 10:00 AM EDT [facility] Reproductive Endocrinology Infertility [address] [place] [address] Santa No MD [address] [place], [place] [phone] infertility documented as of this encounter Visit Diagnoses Not on filedocumented in this encounter Care Teams Weight Shifter Relationship Specialty Start Date End Date Dwayne Johnson [address] [place] [address] Referring Speech Teacher 10/04/20 documented as of this encounter
--- OUTSIDE RECORDS SUMMARY | 2025-02-02 16:32 | XMS_ITS | Encounter Summary ---
Author Organization [employer] Sys tem Address [id number] [address] [place] [address] Care Team Providers Care Grain Packer Name Role Phone Jesus Berumen MD Primary Care Provider [phone] Reason for Visit * Reason Comments Med Refill Encounter Details Date Type Department Care Team (Late st Contact Info) Description 11/08/2019 Refill [facility] [address] [place] [phone] Suzy Heath, BAKERY MACHINE MECHANIC SUPERVISOR-MACHINE MOLDER [address] [place], [place] [phone] Social History Tobacco Use Types Packs/Day Years Used Date Smoking Tobacco: Every Day Smokeless Tobacco: Never Alcohol Use Standard Drinks/Week Comments No 0 (1 standard drink = 0.6 oz pur e alcohol) AUDIT-C Answer Date Recorded Frequency of Alcohol Consumption Never 10/17/2019 Average Number of Drinks Not on file 020 Frequency of Binge Drinking Not on file 11/2019 PHQ-2 Answer Date Recorded PHQ-2 Score 0 10/31/2019 Childcare Answer Date Recorded Childcare Unknown 02/23/2019 Employment Answer Date Recorded Employment Unknown 02/23/2019 Comments No Sex and Gender Information Value [...] EST Office Visit [facility] [address] [place] [address] Jesus Berumen MD [address] [place] [address] [phone] documented as of this encounter Visit Diagnoses Not on filedocumented in this encounter Additional Health Concerns Infection Onset Date Last Indicated Resolved Time COVID-19 Rule-Out 09/20/2021 09/20/2021 09/21/2021 5:59 PM EST COVID-19 Positive 09/20/2021 09/20/2021 10/11/2021 11:12 PM EST Assessment Noted Time PHQ-9 Depression Total Score: 0 10/31/19 20 10:00 AM EST A Body Mass Index follow-up plan has been documented for the patient 10/31/2019 12:28 PM EST documented as of this encounter Care Teams Grain Packer Relationship Specialty Start Date End Date Jesus Berumen MD [address] [place] [address] [phone] PCP - General Internal Medicine 01/24/25 documented as of this encounter
--- OUTSIDE RECORDS SUMMARY | 2025-02-02 16:32 | XMS_ITS | Encounter Summary ---
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
--- OUTSIDE RECORDS SUMMARY | 2025-02-02 16:32 | XMS_ITS | Encounter Summary ---
Author Organization [facility] Address [address] [place] [address] Care Team Providers Care Field Artillery Operations Specialist Name Role Phone Dwayne Johnson Unavailable Source Comments In the event this information is protected by the Federal Confidentiality of Alcohol and Drug AbusePatient Records regulations: The Federal rules restrict any use of the information to criminally investigate or prosecute any alcohol or drug abuse patient.[facility] Encounter Details Date Type Department Care Team (Latest Contact Info) Description 02/24/2023 Patient Msg Reproductive Endocrinology Infertility [address] [place] [id number] Provider, Ccf Super Ovulation Cycle Social History Tobacco Use Types Packs/Day [...] lower risk 7 02/18/2023 Data from: https://www.neighborhoodatlas.medicine.[facility].edu/. Last address used for calculation [address] [...] Description 03/23/2025 10:00 AM EDT [facility] Reproductive Endocrinology Infertility [address] [place] [address] Santa No MD [address] [place], [place] [phone] infertility documented as of this encounter Visit Diagnoses Not on filedocumented in this encounter Care Teams Field Artillery Operations Specialist Relationship Specialty Start Date End Date Dwayne Johnson [address] [place] [address] Referring Travel Registered Nurse Nicu 10/04/20 documented as of this encounter
--- OUTSIDE RECORDS SUMMARY | 2025-02-02 16:32 | XMS_ITS | Encounter Summary ---
Author Organization [facility] Address [address] [place] [address] Care Team Providers Care Attic Fans Mechanic Name Role Phone Dwayne Johnson Unavailable Source Comments In the event this information is protected by the Federal Confidentiality of Alcohol and Drug AbusePatient Records regulations: The Federal rules restrict any use of the information to criminally investigate or prosecute any alcohol or drug abuse patient.[facility] Encounter Details Date Type Department Care Team (Late st Contact Info) Description 03/09/2023 Patient Msg Reproductive Endocrinology Infertility [address] [place] [address] Provider, Ccf SO Information Social History Tobacco Use Types Packs/Day Years [...] is lower risk 7 02/18/2023 Data from: https://www.neighborhoodatlas.medicine.[facility].edu/. Last address used for calculation [address] [...] Contact Info) Description 03/23/2025 10:00 AM EDT [facility] Reproductive Endocrinology Infertility [address] [place] [address] Santa No MD [address] [place], [place] [phone] infertility documented as of this encounter Visit Diagnoses Not on filedocumented in this encounter Care Teams Attic Fans Mechanic Relationship Specialty Start Date End Date Dwayne Johnson [address] [place] [address] Referring Review Trainer 10/04/20 documented as of this encounter
--- OUTSIDE RECORDS SUMMARY | 2025-02-02 16:32 | XMS_ITS | Encounter Summary ---
Author Organization [facility] Address [address] [place] [address] Care Team Providers Care Research Chief Engineer Name Role Phone Dwayne Johnson Unavailable Source Comments In the event this information is protected by the Federal Confidentiality of Alcohol and Drug AbusePatient Records regulations: The Federal rules restrict any use of the information to criminally investigate or prosecute any alcohol or drug abuse patient.[facility] Encounter Details Date Type Department Care Team (Late st Contact Info) Description 09/12/2024 Patient Msg Reproductive Endocrinology Infertility [address] [place], [place] [phone] Provider, Ccf plan for 09/12/24 Social History Tobacco Use Types Packs/Day Years [...] [facility]ertility [address] [place] [address] Santa oN MD [address] [place] [place], [place] [phone] infertility documented as of this encounter Visit Diagnoses Not on filedocumented in this encounter Care Teams Research Chief Engineer Relationship Specialty Start Date End Date Dwayne Johnson: [phone] [address] [place] [address] Referring Experimental Plastics Fabricator 10/04/20 documented as of this encounter
--- OUTSIDE RECORDS SUMMARY | 2025-02-02 16:32 | XMS_ITS | Encounter Summary ---
Author Organization [facility] Address [address] [place] [address] Care Team Providers Care Metal Trim Erector Name Role Phone Dwayne Johnson Unavailable Source Comments In the event this information is protected by the Federal Confidentiality of Alcohol and Drug AbusePatient Records regulations: The Federal rules restrict any use of the information to criminally investigate or prosecute any alcohol or drug abuse patient.[facility] Encounter Details Date Type Department Care Team (Latest Contact Info) Description 10/16/2023 Patient Msg Reproductive Endocrinology Infertility [address] [place] [phone] Dmitry Oh MD [address] [place] [address] Appointment Cancellation Request Social History [...] is lower risk 7 08/19/2023 Data from: https://www.neighborhoodatlas.medicine.[facility].edu/. Last address used for calculation [address] [place] 08/19/2023 Comments Yes Sex and Gender [...] Info) Description 03/23/2025 10:00 AM EDT [facility] Reproductive Endocrinology Infertility [address] [place] [address] Santa No MD [address] [place], [place] [phone] infertility documented as of this encounter Visit Diagnoses Not on filedocumented in this encounter Care Teams Metal Trim Erector Relationship Specialty Start Date End Date Dwayne Johnson [address] [place] [address] Referring Community Dietitian 10/04/20 documented as of this encounter
--- OUTSIDE RECORDS SUMMARY | 2025-02-02 16:32 | XMS_ITS | Encounter Summary ---
Author Organization [facility] Address [address] [place] [address] Care Team Providers Care Physical Education Teacher Name Role Phone Dwayne Johnson Unavailable Source Comments In the event this information is protected by the Federal Confidentiality of Alcohol and Drug AbusePatient Records regulations: The Federal rules restrict any use of the information to criminally investigate or prosecute any alcohol or drug abuse patient.[facility] Encounter Details Date Type Department Care Team (Late st Contact Info) Description 11/10/2022 Get Medical Advice Reproductive Endocrinology Infertility [address] [place] [address] Sushila Vee APRN.RN [facility] [address] [place] [address] Clarification Social History Tobacco Use Types Packs/Day Years [...] N ot on file 09/29/2022 Data from: https://www.neighborhoodatlas.medicine.[facility].edu/. [...] [facility] Reproductive Endocrinology Infertility [address] [place] [address] Santa No MD [address] [place], [place] [phone] infertility documented as of this encounter Visit Diagnoses Not on filedocumented in this encounter Care Teams Physical Education Teacher Relationship Specialty Start Date End Date Dwayne Johnson [address] [place] [address] Referring Package Drier 10/04/20 documented as of this encounter
--- OUTSIDE RECORDS SUMMARY | 2025-02-02 16:32 | XMS_ITS | Encounter Summary ---
Author Organization [facility] Address [address] [place] [address] Care Team Providers Care Wrister Name Role Phone Dwayne Johnson Unavailable Source Comments In the event this information is protected by the Federal Confidentiality of Alcohol and Drug AbusePatient Records regulations: The Federal rules restrict any use of the information to criminally investigate or prosecute any alcohol or drug abuse patient.[facility] Encounter Details Date Type Department Care Team (Late st Contact Info) Description 11/10/2022 Patient Msg Reproductive Endocrinology Infertility [address] [place] [place] [address] Sushila Vee APRN.PHOTOFINISHING LABORATORY WORKER [address] [place] [id number] Next steps Social History Tobacco Use Types [...] N ot on file 09/29/2022 Data from: https://www.neighborhoodatlas.medicine.[facility].edu/. Last address used for calculation [address] [...] Contact Info) Description 03/23/2025 10:00 AM EDT [facility] Reproductive Endocrinology Infertility [address] [place] [address] Santa No MD [address] [place], [place] [phone] infertility documented as of this encounter Visit Diagnoses Not on filedocumented in this encounter Care Teams Wrister Relationship Specialty Start Date End Date Dwayne Johnson [address] [place] [address] Referring Reheat Furnace Operator 10/04/20 documented as of this encounter
--- OUTSIDE RECORDS SUMMARY | 2025-02-02 16:32 | XMS_ITS | Encounter Summary ---
Author Organization [facility] Address [address] [place] [address] Care Team Providers Care Cnc Specialist Name Role Phone Dwayne Johnson Unavailable Source Comments In the event this information is protected by the Federal Confidentiality of Alcohol and Drug AbusePatient Records regulations: The Federal rules restrict any use of the information to criminally investigate or prosecute any alcohol or drug abuse patient.[facility] Encounter Details Date Type Department Care Team (Late st Contact Info) Description 07/18/2024 Patient Msg Reproductive Endocrinology Infertility [address] [place] [address] Provider, Ccf Plan 07/18 Social History Tobacco Use Types Packs/Day Years [...] is lower risk 7 08/19/2023 Data from: https://www.neighborhoodatlas.medicine.[facility].edu/. Last address used for calculation [...] Contact Info) Description 03/23/2025 10:00 AM EDT [facility] Reproductive Endocrinology Infertility [address] [place] [address] Santa No MD [address] [place], [place] [phone] infertility documented as of this encounter Visit Diagnoses Not on filedocumented in this encounter Care Teams Cnc Specialist Relationship Specialty Start Date End Date Dwayne Johnson [address] [place] [address] Referring Permastone Installer 10/04/20 documented as of this encounter
--- OUTSIDE RECORDS SUMMARY | 2025-02-02 16:32 | XMS_ITS | Encounter Summary ---
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
--- OUTSIDE RECORDS SUMMARY | 2025-02-02 16:32 | XMS_ITS | Encounter Summary ---
Author Organization [facility] Address [address] [place] [address] Care Team Providers Care Percussion Tuner Name Role Phone Dwayne Johnson Unavailable Source Comments In the event this information is protected by the Federal Confidentiality of Alcohol and Drug AbusePatient Records regulations: The Federal rules restrict any use of the information to criminally investigate or prosecute any alcohol or drug abuse patient.[facility] Encounter Details Date Type Department Care Team (Latest Contact Info) Description 05/13/2023 Patient Msg Reproductive Endocrinology Infertility [address] [place], [place] [phone] Provider, Ccf Super Ovulation Plan 05/13/23 Social History Tobacco Use Types Packs/Day Years [...] is lower risk 7 02/18/2023 Data from: https://www.neighborhoodatlas.medicine.[facility].edu/. Last address used for calculation [...] Description 03/23/2025 10:00 AM EDT [facility] Reproductive Endocrinology Infertility [address] [place] [address] Santa No MD [address] [place] [address] infertility documented as of this encounter Visit Diagnoses Not on filedocumented in this encounter Care Teams Percussion Tuner Relationship Specialty Start Date End Date Dwayne Johnson [address] [place] [address] Referring Senior Game Designer 10/04/20 documented as of this encounter
--- OUTSIDE RECORDS SUMMARY | 2025-02-02 16:32 | XMS_ITS | Encounter Summary ---
Author Organization [facility] Address [address] [place] [address] Care Team Providers Care Receptionist Airline Lounge Name Role Phone Dwayne Johnson Unavailable Source Comments In the event this information is protected by the Federal Confidentiality of Alcohol and Drug AbusePatient Records regulations: The Federal rules restrict any use of the information to criminally investigate or prosecute any alcohol or drug abuse patient.[facility] Encounter Details Date Type Department Care Team (Late st Contact Info) Description 11/06/2023 Patient Msg Reproductive Endocrinology Infertility [address] [place], [place] [phone] Provider, Ccf HCG order Social History Tobacco Use Types Packs/Day Years [...] is lower risk 7 08/19/2023 Data from: https://www.neighborhoodatlas.medicine.[facility].edu/. Last address used for calculation [...] Contact Info) Description 03/23/2025 10:00 AM EDT [facility] Reproductive Endocrinology Infertility [address] [place] [address] Santa No MD [address] [place] [address] infertility documented as of this encounter Procedures Procedure Name Priority Date/Time Associated Diagnosis Comments HCG QUANTITATIVE Routine 11/07/2023 documented in this encounter Results * (ABNORMAL) HCG QUANTITATIVE (11/07/2023) hCG Quantitative, Blood 31.0(A) <=5.0 mIU/mL OTHER Blood BLOOD SPECIMEN / Unknown us Ccf Provider LABORATORY Final Result OTHER documented in this encounter Visit Diagnoses Not on filedocumented in this encounter Care Teams Receptionist Airline Lounge Relationship Specialty Start Date End Date Dwayne Johnson [address] [place] [address] Referring Information Security Manager 10/04/20 documented as of this encounter
--- OUTSIDE RECORDS SUMMARY | 2025-02-02 16:32 | XMS_ITS | Encounter Summary ---
Author Organization [facility] Address [address] [place] [address] Care Team Providers Care Archival Studies Professor Name Role Phone Dwayne Johnson Unavailable Source Comments In the event this information is protected by the Federal Confidentiality of Alcohol and Drug AbusePatient Records regulations: The Federal rules restrict any use of the information to criminally investigate or prosecute any alcohol or drug abuse patient.[facility] Encounter Details Date Type Department Care Team (Latest Contact Info) Description 07/18/2024 Patient Msg Reproductive Endocrinology Infertility [address] [place], [place] [phone] Provider, Ccf HCG trigger instructions Social History Tobacco Use Types Packs/Day Years [...] is lower risk 7 08/19/2023 Data from: https://www.neighborhoodatlas.medicine.[facility].edu/. Last address used for calculation [address] [...] Contact Info) Description 03/23/2025 10:00 AM EDT [facility] Reproductive Endocrinology Infertility [address] [place] [address] Santa No MD [address] [place] [place], [place] [phone] infertility documented as of this encounter Visit Diagnoses Not on filedocumented in this encounter Care Teams Archival Studies Professor Relationship Specialty Start Date End Date Dwayne Johnson [address] [place] [address] Referring Childcare Center Director 10/04/20 documented as of this encounter
--- OUTSIDE RECORDS SUMMARY | 2025-02-02 16:32 | XMS_ITS | Encounter Summary ---
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
--- OUTSIDE RECORDS SUMMARY | 2025-02-02 16:32 | XMS_ITS | Encounter Summary ---
Author Organization [facility] Address [address] [place] [address] Care Team Providers Care Unmanned Aircraft Systems Roboticist Name Role Phone Dwayne Johnson Unavailable Source Comments In the event this information is protected by the Federal Confidentiality of Alcohol and Drug AbusePatient Records regulations: The Federal rules restrict any use of the information to criminally investigate or prosecute any alcohol or drug abuse patient.[facility] Encounter Details Date Type Department Care Team (Late st Contact Info) Description 08/17/2024 Patient Msg Reproductive Endocrinology Infertility [address] [place] [address] Provider, Ccf Plan 08/17 Social History Tobacco Use Types Packs/Day Years [...] risk 7 08/19/2023 Data from: https://www.neighborhoodatlas.medicine.[facility].edu/. Last address used for calculation [address] [...] Contact Info) Description 03/23/2025 10:00 AM EDT [facility] Reproductive Endocrinology Infertility [address] [place] [address] Santa No MD [address] [place], [place] [phone] infertility documented as of this encounter Visit Diagnoses Not on filedocumented in this encounter Care Teams Unmanned Aircraft Systems Roboticist Relationship Specialty Start Date End Date Dwayne Johnson [address] [place] [address] Referring Consignee 10/04/20 documented as of this encounter
--- OUTSIDE RECORDS SUMMARY | 2025-02-02 16:32 | XMS_ITS | Encounter Summary ---
Author Organization [facility] Address [address] [place] [address] Care Team Providers Care Crematory Attendant Name Role Phone Dwayne Johnson Unavailable Source Comments In the event this information is protected by the Federal Confidentiality of Alcohol and Drug AbusePatient Records regulations: The Federal rules restrict any use of the information to criminally investigate or prosecute any alcohol or drug abuse patient.[facility] Encounter Details Date Type Department Care Team (Late st Contact Info) Description 12/22/2022 Get Medical Advice Reproductive Endocrinology Infertility [address] [place] [address] Dmitry Oh MD [address] [place] [address] Next Steps Social History Tobacco Use Types Packs/Day [...] N ot on file 09/29/2022 Data from: https://www.neighborhoodatlas.medicine.[facility].edu/. Last address used for calculation [address] [...] Info) Description 03/23/2025 10:00 AM EDT [facility] Reproductive Endocrinology Infertility [address] [place] [address] Santa No MD [address] [place], [place] [phone] infertility documented as of this encounter Visit Diagnoses Not on filedocumented in this encounter Care Teams Crematory Attendant Relationship Specialty Start Date End Date Dwayne Johnson [address] [place] [address] Referring Policewoman 10/04/20 documented as of this encounter
--- OUTSIDE RECORDS SUMMARY | 2025-02-02 16:32 | XMS_ITS | Encounter Summary ---
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
--- OUTSIDE RECORDS SUMMARY | 2025-02-02 16:32 | XMS_ITS | Encounter Summary ---
Author Organization [facility] Address [address] [place] [address] Care Team Providers Care Trestle Mechanic Name Role Phone Dwayne Johnson Unavailable Source Comments In the event this information is protected by the Federal Confidentiality of Alcohol and Drug AbusePatient Records regulations: The Federal rules restrict any use of the information to criminally investigate or prosecute any alcohol or drug abuse patient.[facility] Encounter Details Date Type Department Care Team (Late st Contact Info) Description 10/23/2023 Patient Msg Reproductive Endocrinology Infertility [address] [place], [place] [phone] Provider, Cckimberli RE: Message today Social History Tobacco Use Types Packs/Day Years [...] is lower risk 7 08/19/2023 Data from: https://www.neighborhoodatlas.medicine.[facility].edu/. Last address used for calculation [address] [...] Contact Info) Description 03/23/2025 10:00 AM EDT [facility] Reproductive Endocrinology Infertility [address] [place] [address] Santa No MD [address] [place], [place] [phone] infertility documented as of this encounter Visit Diagnoses Not on filedocumented in this encounter Care Teams Trestle Mechanic Relationship Specialty Start Date End Date Dwayne Johnson [address] [place] [address] Referring Pediatric Medical Assistant 10/04/20 documented as of this encounter
--- OUTSIDE RECORDS SUMMARY | 2025-02-02 16:32 | XMS_ITS | Encounter Summary ---
Author Organization [facility] Address [id number] [address] [place] [address] Care Team Providers Care Banking Services Clerk Name Role Phone Jesus Berumen MD Primary Care Provider [phone] Reason for Visit * Reason Comments Med Refill Encounter Details Date Type Department Care Team (Late st Contact Info) Description 11/08/2019 Refill [facility] [address] [place] [phone] Suzy Heath, SILVERWARE BUFFER-THERMOSPRAY OPERATOR [address] [place], [place] [phone] Social History Tobacco Use Types Packs/Day Years [...] Office Visit [facility] [address] [place] [address] Jesus Berumen MD [address] [place] [address] [phone] documented as of this encounter Visit Diagnoses [...] documented as of this encounter Care Teams Banking Services Clerk Relationship Specialty Start Date End Date Jesus Berumen MD [address] [place] [address] [phone] PCP - General Internal Medicine 01/24/25 documented as of this encounter
--- OUTSIDE RECORDS SUMMARY | 2025-02-02 16:32 | XMS_ITS | Encounter Summary ---
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 Not on file Not on file Not on file documented as of this encounter Plan of Treatment Not on file documented as of this encounter Procedures Procedure Name Priority Date/Time Associated Diagnosis Comments [facility] PREG QUANT HCG Routine 01/24/2025 6: 32 AM EDT ALL CBC WITH AUTO DIFF Routine 01/24/2025 6:32 AM EDT ALL ABO/RH TYPE Routine 01/24/2025 6:32 AM EDT documented in this encounter Results * [facility] PREG QUANT HCG (01/24/2025 6:32 AM EDT) Pathologist [facility] HCG QUANTITATIVE 5,469 mIU/mL TBH Comment: 5-50 0.2-1 WEEK 50-500 1-2 WEEKS 100-5,000 2-3 WEEKS 500-10,000 3-4 WEEKS 1,000-50,000 4-5 WEEKS 10,000-100,000 5-6 WEEKS 15,000-200,000 6-8 WEEKS 10,000-100,000 2-3 MONTHS 01/24/2025 6:32 AM EDT 01/24/2025 6:33 AM EDT Narrative CLINIS[facility] - 01/24/2025 7:21 AM EDT [facility]INIS[facility] Final Result Performing Organization Address City/[facility]/ZIP Co de Phone Number [facility] * ALL ABO/RH TYPE (01/24/2025 6:32 AM EDT) [facility] BLOOD TYPE O Positive [facility] 01/24/2025 6:32 AM EDT 01/24/2025 6:33 AM EDT Narrative CLINISYNC - 01/24/2025 7:17 AM EDT [facility] Final Result Performing Organization Address City/[facility]/ZIP Co de Phone Number CLINISYPR TB * (ABNORMAL) ALL CBC WITH AUTO DIFF (01/24/2025 6:32 AM EDT) [facility] TBH WBC 10.7 4.0 - 11.0 10 3/uL TBH TBH RBC 4.28 4.20 - 5.40 10 6/uL TBH TBH HGB 12.9 12.0 - 16.0 g/dL TBH TBH HCT 38.0 36.0 - 48.0 % TBH TBH MCV 88.8 81.0 - 99.0 fL TBH TBH MCH 30.1 26.7 - 34.0 pg TBH TBH MCHC 33.9 29.9 - 35.2 g/dL TBH TBH RDW 13.1 11.0 - 15.0 % TBH TBH PLT 294 150 - 450 10 3/uL TBH TBH MPV 8.5(L) 9.5 - 13.5 fL TBH NEUTROPHILS PERCENT AUTO 55.4 43.0 - 75.0 % TBH LYMPHOCYTES PERCENT AUTO 34.1 20.5 - 60.0 % TBH MONOCYTES PERCENT AUTO 7.7 1.7 - 12.0 % TBH TBH EO % 1.5 0.9 - 7.0 % TBH BASOPHILS PERCENT AUTO 0.7 0.2 - 2.0 % TBH IMMATURE GRANULOCYTES PCT AUTO 0.6(H) 0.0 - 0.5 % TBH NEUTROPHILS ABSOLUTE AUTO 6.0 1.4 - 6.5 10 3/uL TBH LYMPHOCYTES ABSOLUTE AUTO 3.7 1.2 - 3.8 10 3/uL TBH MONOCYTES ABSOLUTE AUTO 0.8 0.3 - 0.8 10 3/uL TBH TBH EO # 0.2 0.0 - 0.7 10 3/uL TBH BASOPHILS ABSOLUTE AUTO 0.1 0.0 - 0.1 10 3/uL TBH IMMATURE GRANULOCYTES ABS AUTO 0.06(H) 0.00 - 0.03 10 3/uL TBH 01/24/2025 6:32 AM EDT 01/24/2025 6:33 AM EDT Narrative CLINISYNC - 01/24/2025 6:37 AM EDT us Conor Dayo DO CLINISYNC Final Result [facility] documented in this encounter Visit Diagnoses Not on filedocumented in this encounter Care Teams Central Processing Technician Relationship Specialty Start Date End Date Jax Mckeon MD PCP - General Family Medicine 10/16/23 documented as of this encounter
--- OUTSIDE RECORDS SUMMARY | 2025-02-02 16:32 | XMS_ITS | Encounter Summary ---
Author Organization [facility] Address [address] [place] [address] Care Team Providers Care Maintenance And Utilities Supervisor Name Role Phone Dwayne Johnson Unavailable Source Comments In the event this information is protected by the Federal Confidentiality of Alcohol and Drug AbusePatient Records regulations: The Federal rules restrict any use of the information to criminally investigate or prosecute any alcohol or drug abuse patient.[facility] Encounter Details Date Type Department Care Team (Late st Contact Info) Description 12/22/2022 Get Medical Advice Reproductive Endocrinology Infertility [address] [place] [address] Dmitry Oh MD [address] [place] [address] Next Steps Social History Tobacco [...] N ot on file 09/29/2022 Data from: https://www.neighborhoodatlas.medicine.[facility].edu/. Last address used for calculation [address] [...] Contact Info) Description 03/23/2025 10:00 AM EDT [facility] Reproductive Endocrinology Infertility [address] [place] [address] Santa No MD [address] [place], [place] [phone] infertility documented as of this encounter Visit Diagnoses Not on filedocumented in this encounter Care Teams Maintenance And Utilities Supervisor Relationship Specialty Start Date End Date Dwayne Johnson [address] [place] [address] Referring Tire Bladder Maker 10/04/20 documented as of this encounter
--- OUTSIDE RECORDS SUMMARY | 2025-02-02 16:32 | XMS_ITS | Encounter Summary ---
Author Organization [facility] [facility] Address [facility][id number] [address] [place] [address] Care Team Providers Care Solar Photovoltaic Crew Lead Name Role Phone Jesus Berumen MD Primary Care Provider [phone] Reason for Visit * Reason Comments Med Refill Encounter Details Date Type Department Care Team (Late st Contact Info) Description 11/08/2019 Refill [facility] [address] [place] [phone] Suzy Heath, ALTERATION TAILOR-LONG TERM ACUTE CARE REGISTERED NURSE [address] [place], [place] [phone] Social History Tobacco Use Types Packs/Day Years [...] encounter Miscellaneous Notes * Telephone Encounter - LYUDMILA Leyva - 11/08/2019 10:31 AM EST I just filled this three weeks ago with two refills documented in this encounter Plan of Treatment Upcoming Encounters Date Type Department Care Team (Late st Contact Info) Description 11/09/2025 8:30 AM EST Office Visit [facility] [address] [place] [phone] Jesus Berumen MD [address] [place] [address] [phone] documented as of this encounter Visit Diagnoses [...] documented as of this encounter Care Teams Solar Photovoltaic Crew Lead Relationship Specialty Start Date End Date Jesus Berumen MD [address] [place] [phone] PCP - General Internal Medicine 01/24/25 documented as of this encounter
--- OUTSIDE RECORDS SUMMARY | 2025-02-02 16:32 | XMS_ITS | Encounter Summary ---
Author Organization [facility] Address [address] [place] [address] Care Team Providers Care Field Operations Farm Manager Name Role Phone Dwayne Johnson Unavailable Source Comments In the event this information is protected by the Federal Confidentiality of Alcohol and Drug AbusePatient Records regulations: The Federal rules restrict any use of the information to criminally investigate or prosecute any alcohol or drug abuse patient.[facility] Encounter Details Date Type Department Care Team (Late st Contact Info) Description 11/03/2023 Get Medical Advice Reproductive Endocrinology Infertility [address] [place] [address] Dmitry Oh MD [address] [place] [address] Work Note Social History Tobacco Use Types Packs/Day Years [...] is lower risk 7 08/19/2023 Data from: https://www.neighborhoodatlas.medicine.[facility].edu/. Last address used for calculation [address] 08/19/2023 Comments Yes Sex and Gender [...] Contact Info) Description 03/23/2025 10:00 AM EDT [facility] Reproductive Endocrinology Infertility [address] [place] [address] Santa No MD [address] [place], [place] [phone] infertility documented as of this encounter Visit Diagnoses Not on filedocumented in this encounter Care Teams Field Operations Farm Manager Relationship Specialty Start Date End Date Dwayne Johnson [address] [place] [address] Referring Visual Merchandising Associate 10/04/20 documented as of this encounter
--- OUTSIDE RECORDS SUMMARY | 2025-02-02 16:32 | XMS_ITS | Encounter Summary ---
Author Organization [facility] Address [address] [place] [address] Care Team Providers Care Ppap Coordinator Name Role Phone Dwayne Johnson Unavailable Source Comments In the event this information is protected by the Federal Confidentiality of Alcohol and Drug AbusePatient Records regulations: The Federal rules restrict any use of the information to criminally investigate or prosecute any alcohol or drug abuse patient.[facility] Encounter Details Date Type Department Care Team (Latest Contact Info) Description 04/17/2023 Get Medical Advice Reproductive Endocrinology Infertility [address] [place] [address] Dmitry Oh MD [address] [place] [address] Previous HSG Results Social History Tobacco Use Types Packs/Day [...] is lower risk 7 02/18/2023 Data from: https://www.neighborhoodatlas.medicine.[facility].edu/. Last address used for calculation [address] 02/18/2023 Comments No Sex and Gender [...] Description 03/23/2025 10:00 AM EDT [facility] Reproductive Endocrinology Infertility [address] [place] [address] Santa No MD [address] [place], [place] [phone] infertility documented as of this encounter Visit Diagnoses Not on filedocumented in this encounter Care Teams Ppap Coordinator Relationship Specialty Start Date End Date Dwayne Johnson [address] [place] [address] Referring Strategic Buyer 10/04/20 documented as of this encounter
--- OUTSIDE RECORDS SUMMARY | 2025-02-02 16:32 | XMS_ITS | Encounter Summary ---
Author [facility] Address [facility]-[id number] [address] [place] [address] Care Team Providers Care Pricing Analyst Name Role Phone Jesus Berumen MD Primary Care Provider [phone] Reason for Visit * Reason Onset Date Comments Med Refill 2019 Encounter Details Date Type Department Care Team (Late st Contact Info) Description 2019 Refill [facility] [address] [place] [address] Ryan Oro LPN Social History Tobacco Use Types Packs/Day Years [...] * Telephone Encounter - LYUDMILA Leyva - 2019 10:43 AM EST We do not want this to be a residential medication, how is hare abdominal pain doing? We can always decrease it to pepcid twice a day * Telephone Encounter - Ryan Oro LPN - 2019 10:43 AM EST Continues to have back and epigastric pain a couple days per week. Thinks it may be her gallbladder. * Telephone Encounter - LYUDMILA Leyva - 2019 10:43 AM EST Ordered an ultrasound of abdomen, when I seen her she said the pain was gone * Telephone Encounter - Ryan Oro LPN - 2019 10:43 AM EST When I called to advise about US of abdomen, patient then said she only needed the omeprazole occasionally and did not think her pain warranted an ultrasound. * Telephone Encounter - LYUDMILA Leyva - 2019 10:43 AM EST Okay.. documented in this encounter Plan of Treatment Upcoming Encounters Date Type Department Care Team (Late st Contact Info) Description 11/09/2025 8:30 AM EST Office Visit [facility] [address] [place] [phone] [place] [address] [place] [address] documented as of this encounter Visit Diagnoses [...] documented as of this encounter Care Teams Pricing Analyst Relationship Specialty Start Date End Date Jesus Berumen MD [address] [place] [address] PCP - General Internal Medicine 01/24/25 documented as of this encounter
--- OUTSIDE RECORDS SUMMARY | 2025-02-02 16:32 | XMS_ITS | Encounter Summary ---
Author Organization [facility] Address [address] [place] [address] Care Team Providers Care Compensation Intern Name Role Phone Dwayne Johnson Unavailable Source Comments In the event this information is protected by the Federal Confidentiality of Alcohol and Drug AbusePatient Records regulations: The Federal rules restrict any use of the information to criminally investigate or prosecute any alcohol or drug abuse patient.[facility] Encounter Details Date Type Department Care Team (Late st Contact Info) Description 10/05/2023 Patient Msg Reproductive Endocrinology Infertility [address] [facility] [place] [address] Sushila Vee APRN.[employer] DRIER TENDER [address] [facility] [address] [place] [phone] Congratulations!!! Social History Tobacco Use Types Packs/Day Years [...] risk 7 08/19/2023 Data from: https://www.neighborhoodatlas.medicine.[facility].edu/. Last address used for calculation [address] [facility] 08/19/2023 Comments Yes Sex and Gender Information Value Date Recorded Sex Assigned at Female 06/12/2021 8:50 PM EDT Legal Sex Female 3:20 PM EST Gender Identity Female 06/12/2021 8:50 PM EDT Sexual Orientation Straight 06/12/2021 8: 50 PM EDT documented as of this encounter Plan of Treatment Upcoming Encounters Date Type Department Care Team (Late st Contact Info) Description 03/23/2025 10:00 AM EDT [facility] Reproductive Endocrinology Infertility [address] [place] [address] Santa No MD [address] [place], [place] [phone] infertility documented as of this encounter Visit Diagnoses Not on filedocumented in this encounter Care Teams Compensation Intern Relationship Specialty Start Date End Date Dwayne Johnson [address] [place] [address] Referring Disaster Or Damage Control Specialist 10/04/20 documented as of this encounter
--- OUTSIDE RECORDS SUMMARY | 2025-02-02 16:33 | XMS_ITS | Encounter Summary ---
Author Organization [facility] Address [address] [place] [address] Care Team Providers Care Worship Director Name Role Phone Dwayne Johnson Unavailable Source Comments In the event this information is protected by the Federal Confidentiality of Alcohol and Drug AbusePatient Records regulations: The Federal rules restrict any use of the information to criminally investigate or prosecute any alcohol or drug abuse patient.[facility] Encounter Details Date Type Department Care Team (Late st Contact Info) Description 10/21/2024 Patient Msg Reproductive Endocrinology Infertility [address] [place], [place] [phone] Provider, Ccf Plan 10/21 Social History Tobacco Use Types Packs/Day Years [...] is lower risk 7 08/19/2023 Data from: https://www.neighborhoodatlas.medicine.[facility].edu/. Last address used for calculation [address] [...] [facility] Reproductive Endocrinology Infertility [address] [place] [address] Santa No MD [address] [place], [place] [phone] infertility documented as of this encounter Visit Diagnoses Not on filedocumented in this encounter Care Teams Worship Director Relationship Specialty Start Date End Date Dwayne Johnson [address] [place] [address] Referring Plastics Sheet Finishing Press Operator 10/04/20 documented as of this encounter
--- OUTSIDE RECORDS SUMMARY | 2025-02-02 16:33 | XMS_ITS | Encounter Summary ---
Author Organization [facility] Address [address] [place] [address] Care Team Providers Care Securities Underwriter Name Role Phone Dwayne Johnson Unavailable Source Comments In the event this information is protected by the Federal Confidentiality of Alcohol and Drug AbusePatient Records regulations: The Federal rules restrict any use of the information to criminally investigate or prosecute any alcohol or drug abuse patient.[facility] Encounter Details Date Type Department Care Team (Late st Contact Info) Description 09/20/2024 Patient Msg Reproductive Endocrinology Infertility [address] [place], [place] [phone] Provider, Ccf plan for 09/20/24 Social History Tobacco Use Types Packs/Day Years [...] is lower risk 7 08/19/2023 Data from: https://www.neighborhoodatlas.medicine.[facility].edu/. Last address used for calculation [address] [...] Contact Info) Description 03/23/2025 10:00 AM EDT [facility] Reproductive Endocrinology Infertility [address] [place] [address] Santa No MD [address] [place], [place] [phone] infertility documented as of this encounter Visit Diagnoses Not on filedocumented in this encounter Care Teams Securities Underwriter Relationship Specialty Start Date End Date Dwayne Johnson: [phone] [address] [place] [address] Referring Retail Key Holder 10/04/20 documented as of this encounter
--- OUTSIDE RECORDS SUMMARY | 2025-02-02 16:33 | XMS_ITS | Encounter Summary ---
Author Organization [facility] Address [address] [place] [address] Care Team Providers Care Photograph Retoucher Name Role Phone Dwayne Johnson Unavailable Source Comments In the event this information is protected by the Federal Confidentiality of Alcohol and Drug AbusePatient Records regulations: The Federal rules restrict any use of the information to criminally investigate or prosecute any alcohol or drug abuse patient.[facility] Encounter Details Date Type Department Care Team (Late st Contact Info) Description 10/19/2024 Patient Msg Reproductive Endocrinology Infertility [address] [place], [place] [phone] Provider, Ccf Plan 2 Social History Tobacco Use Types Packs/Day Years [...] is lower risk 7 08/19/2023 Data from: https://www.neighborhoodatlas.medicine.[facility].edu/. Last address used for calculation [...] Description 03/23/2025 10:00 AM EDT [facility] Reproductive Endocrinology Infertility [address] [place] [address] Santa No MD [address] [place], [place] [phone] infertility documented as of this encounter Visit Diagnoses Not on filedocumented in this encounter Care Teams Photograph Retoucher Relationship Specialty Start Date End Date Dwayne Johnson [address] [place] [address] Referring Mechanical Applications Engineer 10/04/20 documented as of this encounter
--- OUTSIDE RECORDS SUMMARY | 2025-02-02 16:33 | XMS_ITS | Encounter Summary ---
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 Not on file Not on file Not on file documented as of this encounter Plan of Treatment Not on file documented as of this encounter Procedures Procedure Name Priority Date/Time Associated Diagnosis Comments US OB TRANSVAGINAL 01/23/2025 4: 13 PM EDT documented in this encounter Results * US OB TRANSVAGINAL (01/23/2025 4:13 PM EDT) Anatomical Region Laterality Modality Other 01/23/2025 4:13 PM EDT Narrative 01/23/2025 4:16 PM EDT [address] [address] Ultrasound Report Signed Patient: TIN ARIZMENDI MR#: [id number] : 1985 Acct:[id number] Age/Sex: 39 / F ADM Date: 01/23/25 Loc: US Attending Dr: LEONEL SALES APRN, CNM Ordering Physician: LEONEL SALES APRN, CNM Date of Service: 01/23/25 Procedure(s): US OB transvaginal Accession Number(s): [id number] cc: DAVID GIMENEZ ; LEONEL SALES APRN, CNM [place] [id number] Patient Name: TIN ARIZMENDI MRN: [id number] date: 1985 Sex: F Assigned Patient Location: US Current Patient Location: US Accession/Order Number: [id number] Exam Date: 01/23/2025 16:08 Report Date: 01/23/2025 [...] Jr., D.O. 01/23/2025 4:13 PM Dictation Location: [place] [address] Electronically authenticated by: [id number] Y Date: 01/23/2025 16:13 Dictated By: Jose A Orona M.D. Signed By: 01/23/251615 DD/ 12 TD/TT: Auto Technician: Procedure Note Radiology, Radiologist, - 01/23/2025 [place] [address] Ultrasound Report Signed Patient: TIN ARIZMENDI LMR#: [id number] : 1985Acct:[id number] Age/Sex: 39 / FADM Date: 01/23/25 Loc: US Attending Dr: LEONEL SALES APRN, CNM Ordering Physician: LEONEL SALES APRN, CNM Date of Service: 01/23/25 Procedure(s): US OB transvaginal Accession Number(s): [id number] cc: DAVID GIMENEZ ; LEONEL SALES APRN, CNM [place] [address] Patient Name: TIN ARIZMENDI MRN: [id number] date: 1985 Sex: F Assigned Patient Location: Current Patient Location: US Accession/Order Number: [id number] Exam Date: 01/23/2025 16:08 Report Date: 01/23/2025 16:13 At the request of: LEONEL SALES APRN, CNM Procedure: US OB transvaginal OB ultrasound. Reason for exam:Spontaneous . Comparison:Ultrasound 01/17/2025 Technique: Transvaginal imaging of the uterus and ovaries were obtained. Findings: A gestational sac is noted within the endometrial canal with a potentialfetal pole noted measuring 6 weeks 4 days by CRL. No heart rate was identified. CRL measures 7.2 mm. No free fluid is seen. Right ovary measures 3.4 x 2.6 x 2.6 cm with a corpus luteum noted. Left ovarymeasures 5.1 x 3.7 x 3.2 cm with a involuting corpus luteum/hemorrhagic cystpresent. US/US OB transvaginal Impression: A gestational sac is noted within the endometrial canal with potentialfetal pole measuring 6 weeks 4 days by CRL, 7.2 mm. No heart rate was identified. Findings are diagnostic of failed early .Correlation with beta-hCG trend is recommended. Impression dictated by: Jose A Orona Jr., D.ONiki 01/23/2025 4:13 PM Dictation Location: [place] [address] Electronically authenticated by: [id number] Y Date: 6:13 Dictated By: Jose A Orona M.D. Signed By:01/23/25 1616 DD/ 1613 TD/TT: Auto Technician: us Leonel [facility] Final Resu lt documented in this encounter Visit Diagnoses Not on filedocumented in this encounter Care Teams College Physics Instructor Relationship Specialty Start Date End Date David Gimenez MD PCP - General Family Medicine 10/16/23 documented as of this encounter
--- OUTSIDE RECORDS SUMMARY | 2025-02-02 16:33 | XMS_ITS | Encounter Summary ---
Author Organization [facility] Address [id number] [address] [place] [address] Care Team Providers Care Furnace Setter Name Role Phone Jesus Berumen MD Primary Care Provider Encounter Details Date Type Department Care Team ([facility] st Contact Info) Description 03/01/2024 [facility] [address] [address] Lila Edmonds Social History Tobacco Use Types Packs/Day Years Used Date Smoking Tobacco: Former Cigarettes Smokeless Tobacco: Never Alcohol Use Standard Drinks/Week Comments No 0 (1 standard drink = 0.6 oz pur e alcohol) AUDIT-C Answer Date Recorded Frequency of Alcohol Consumption Never 10/17/2019 Average Number of Drinks Not on file 020 Frequency of Binge Drinking Not on file 11/2019 PHQ-2 Answer Date Recorded Total Score 0 11/20/2023 Childcare Answer Date Recorded Childcare Unknown 02/23/2019 Employment Answer Date Recorded Employment Unknown 02/23/2019 Hunger Screening Answer Date Recorded Within the past 12 months we worried whether our food would run out before we got money to buy more. Never True 11/20/2023 Within the past 12 months th e food we bought just didn't last and we didn't have money to get more. Never True 11/20/2023 Purpose - Life Answer Date Recorded Purpose and direction in life Unknown Comments No Sex and Gender Information Value Date Recorded Sex Assigned at Female 01/07/2024 1:19 PM EDT Legal Sex Female 11:29 AM EDT Gender Identity Female 01/07/2024 1:19 PM EDT Sexual Orientation Straight 01/07/2024 1: 19 PM EDT documented as of this encounter Miscellaneous Notes * Telephone Encounter - Lila Edmonds - 03/01/2024 3:05 PM EDT Left message again for pt to bring CPAP machine and Power cord documented in this encounter Plan of Treatment Upcoming Encounters Date Type Department Care Team (Late st Contact Info) Description 11/09/2025 8:30 AM EST Office Visit [facility] [address] [place] [phone] [place] [address] [place] [phone] documented as of this encounter Visit Diagnoses Not on filedocumented in this encounter Additional Health Concerns Assessment Noted Time PHQ-9 Depression Total Score: 0 11/20/19 24 7:00 AM EST A Body Mass Index follow-up plan has been documented for the patient 10/31/2019 12:28 PM EST documented as of this encounter Care Teams Furnace Setter Relationship Specialty Start Date End Date Jesus Berumen MD [facility] [place] [address] PCP - General Internal Medicine 01/24/25 documented as of this encounter
--- OUTSIDE RECORDS SUMMARY | 2025-02-02 16:33 | XMS_ITS | Encounter Summary ---
Author Organization [facility] Address [address] [place] [address] Care Team Providers Care Forestry Farm Laborer Name Role Phone Dwayne Johnson Unavailable Source Comments In the event this information is protected by the Federal Confidentiality of Alcohol and Drug AbusePatient Records regulations: The Federal rules restrict any use of the information to criminally investigate or prosecute any alcohol or drug abuse patient.[facility] Encounter Details Date Type Department Care Team (Latest Contact Info) Description 10/03/2024 Patient Msg Reproductive Endocrinology Infertility [address] [place] [phone] Provider, [facility] Social History Tobacco Use Types Packs/Day Years [...] is lower risk 7 08/19/2023 Data from: https://www.neighborhoodatlas.medicine.[facility].edu/. Last address used for calculation [address] [...] Info) Description 03/23/2025 10:00 AM EDT [facility] Reproductive Endocrinology Infertility [address] [place] [address] Santa No MD [address] [place], [place] [phone] infertility documented as of this encounter Visit Diagnoses Not on filedocumented in this encounter Care Teams Forestry Farm Laborer Relationship Specialty Start Date End Date Dwayne Johnsno [address] [place] [address] Referring Brace End [employer] Former 10/04/20 documented as of this encounter
--- OUTSIDE RECORDS SUMMARY | 2025-02-02 16:33 | XMS_ITS | Encounter Summary ---
Author Organization [facility] Address [address] [place] [address] Care Team Providers Care [employer] Principal Name Role Phone Dwayne Johnson Unavailable Source Comments In the event this information is protected by the Federal Confidentiality of Alcohol and Drug AbusePatient Records regulations: The Federal rules restrict any use of the information to criminally investigate or prosecute any alcohol or drug abuse patient.[facility] Encounter Details Date Type Department Care Team (Late st Contact Info) Description 10/23/2024 Patient Msg Reproductive Endocrinology Infertility [address] [place], [place] [phone] Provider, Ccf Hcg trigger Social History Tobacco Use Types Packs/Day Years [...] is lower risk 7 08/19/2023 Data from: https://www.neighborhoodatlas.medicine.[facility].edu/. Last address used for calculation [...] Contact Info) Description 03/23/2025 10:00 AM EDT [facility] Reproductive Endocrinology Infertility [address] [place] [address] Santa No MD [address] [place] [place] [phone] infertility documented as of this encounter Visit Diagnoses Not on filedocumented in this encounter Care Teams [employer] Principal Relationship Specialty Start Date End Date Dwayne Johnson [address] [place] [address] Referring Milk Pickup Truck Driver 10/04/20 documented as of this encounter
--- OUTSIDE RECORDS SUMMARY | 2025-02-02 16:33 | XMS_ITS | Encounter Summary ---
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
--- OUTSIDE RECORDS SUMMARY | 2025-02-02 16:33 | XMS_ITS | Encounter Summary ---
Author Organization [facility] Address [address] [place] [address] Care Team Providers Care Gaming Table Operator Name Role Phone Dwayne Johnson Unavailable Source Comments In the event this information is protected by the Federal Confidentiality of Alcohol and Drug AbusePatient Records regulations: The Federal rules restrict any use of the information to criminally investigate or prosecute any alcohol or drug abuse patient.[facility] Encounter Details Date Type Department Care Team (Late st Contact Info) Description 09/19/2024 Patient Msg Reproductive Endocrinology Infertility [address] [place], [place] [phone] Provider, Ccf plan for 09/19/24 Social History Tobacco Use Types Packs/Day Years [...] Description 03/23/2025 10:00 AM EDT [facility] Reproductive Endocrinology Infertility [address] [place] [address] Santa No MD [address] [place], [place] [phone] infertility documented as of this encounter Visit Diagnoses Not on filedocumented in this encounter Care Teams Gaming Table Operator Relationship Specialty Start Date End Date Dwayne Johnson: [phone] [address] [place] [address] Referring Straight Cutter 10/04/20 documented as of this encounter
--- OUTSIDE RECORDS SUMMARY | 2025-02-02 16:33 | XMS_ITS | Encounter Summary ---
Author Organization [facility] Address [address] [place] [address] Care Team Providers Care Laser Cutter Name Role Phone Dwayne Johnson Unavailable Source Comments In the event this information is protected by the Federal Confidentiality of Alcohol and Drug AbusePatient Records regulations: The Federal rules restrict any use of the information to criminally investigate or prosecute any alcohol or drug abuse patient.[facility] Encounter Details Date Type Department Care Team (Late st Contact Info) Description 10/23/2024 Patient Msg Reproductive Endocrinology Infertility [address] [place], [place] [phone] Provider, Ccf Trigger Social History Tobacco Use Types Packs/Day Years [...] [facility] Reproductive Endocrinology Infertility [address] [place] [address] Santa No MD [address] [place] [place], [place] [phone] infertility documented as of this encounter Visit Diagnoses Not on filedocumented in this encounter Care Teams Laser Cutter Relationship Specialty Start Date End Date Dwayne Johnson [address] [place] [address] Referring Outpatient Facility Physical Therapist 10/04/20 documented as of this encounter
--- OUTSIDE RECORDS SUMMARY | 2025-02-02 16:33 | XMS_ITS | Encounter Summary ---
Author Organization [facility] Address [address] [place] [address] Care Team Providers Care Golf Sales Associate Name Role Phone Jax Mckeon MD Primary Care Provider [phone] Encounter Details Date Type Department Care Team (Late st Contact Info) Description 01/18/2025 Results Follow-Up [facility] [address] [place] [address] Meagan Sales, CNM [address] [place], [place] [phone] Social History Tobacco Use Types Packs/Day Years [...] Industry Job Start Date Job End Date [employer] [employer] of disabilites Not on file Not on file Not on file documented as of this encounter Plan of Treatment Not on file documented as of this encounter Visit Diagnoses Not on filedocumented in this encounter Care Teams Golf Sales Associate Relationship Specialty Start Date End Date Jax Mckeon MD PCP - General Family Medicine 10/16/23 documented as of this encounter
--- OUTSIDE RECORDS SUMMARY | 2025-02-02 16:33 | XMS_ITS | Encounter Summary ---
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
--- OUTSIDE RECORDS SUMMARY | 2025-02-02 16:33 | XMS_ITS | Encounter Summary ---
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
--- OUTSIDE RECORDS SUMMARY | 2025-02-02 16:33 | XMS_ITS | Encounter Summary ---
Author [facility] Address [id number] [address] [place] [address] Care Team Providers Care Certified Athletic Trainer Name Role Phone Jesus Berumen MD Primary Care Provider [phone] Encounter Details Date Type Department Care Team ([facility] st Contact Info) Description 03/08/2024 [facility]phone [facility] [address] [address] Lila Edmonds Social History Tobacco [...] * Telephone Encounter - Lila Edmonds - 03/08/2024 9:14 AM EDT SENT CPAP SUPPLY ORDER TO [facility] documented in this encounter Plan of Treatment Upcoming Encounters Date Type Department Care Team (Late st Contact Info) Description 11/09/2025 8:30 AM EST Office Visit [facility] [address] [place] [phone] Jesus Berumen MD [address] [place] [phone] documented as of this encounter Visit Diagnoses Not on filedocumented in this encounter Additional Health Concerns Assessment Noted Time PHQ-9 Depression Total Score: 0 11/20/19 24 7:00 AM EST A Body Mass Index follow-up plan has been documented for the patient 10/31/2019 12:28 PM EST documented as of this encounter Care Teams Certified Athletic Trainer Relationship Specialty Start Date End Date Jesus Berumen MD [address] [place] [address] PCP - General Internal Medicine 01/24/25 documented as of this encounter
--- OUTSIDE RECORDS SUMMARY | 2025-02-02 16:33 | XMS_ITS | Encounter Summary ---
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
--- OUTSIDE RECORDS SUMMARY | 2025-02-02 16:33 | XMS_ITS | Clinical Summary ---
Author Organization [employer] Address [id number] [address] [place] [address] Care Team Providers Care High Risk Case Manager Name Role Phone Jesus Berumen MD Primary Care Provider [phone] Allergies Active Allergy Reactions Criticality Noted Date Comments Amoxicillin 08/27/2017 Penicillins 08/27/2017 Medications metFORMIN (GLUCOPHAGE) 500 mg tablet Take 1 tablet (500 mg total) by mouth in the morning and 1 tablet (500 mg total) before bedtime. 5 Active tiZANidine (ZANAFLEX) 4 mg tablet Take 1 tablet (4 mg total) by mouth every 8 (eight) hours as needed for muscle spasms. 60 tablet 1 5 Active dexAMETHasone (DECADRON) 0.5 mg tablet Take 1 tablet (0.5 mg total) by mouth. 5 Active FOLLISTIM AQ 300 unit/0.36 mL cartridge INJECT 200 IU SUBCUTANEOUSLY ONCE DAILY DIRECTED Active letrozole (FEMARA) 2.5 mg chemo tablet Take 4 tablets by mouth daily 5 Active progesterone (PROMETRIUM) 200 mg capsule Insert 1 capsule (200 mg total) into the vagina in the morning. 5 Active Active Problems No known active problems Encounters Date Type Department Care Team Description 01/24/2025 Orders Only [facility] [address] [place] [id number] External, Scanning Provider 12/06/2024 10:15 AM EDT Office Visit [facility] [address] [place] [address] Abida Duckworth, ANGELITA-ADELE Inclusion cyst (Primary Dx) 12/06/2024 Travel 11/22/2024 8:19 PM EDT - 11/22/2024 11:59 PM EDT Hospital Encounter [facility] [address] [place] [address] Discharge Disposition: Home 11/22/2024 8:30 AM EDT Office Visit [facility] [address] [place] [address] Millie Mercer MD Inclusion cyst (Primary Dx) 11/22/2024 Travel 11/09/2024 Orders Only [facility] [address] [place] [address] Jax Mckeon MD 11/08/2024 8:30 AM EST - 11/08/2024 11:59 PM EST Hospital Encounter [facility] [address] [place] [address] Routine general medical examination at a health care facility; PCOS (polycystic ovarian syndrome); Hypertriglyceridemi a Discharge Disposition: Home 11/08/2024 8:00 AM EST Office Visit [facility] [address] [place] [address] Jax Mckeon MD Routine general medical examination at a health care facility (Primary Dx); Inclusion cyst; PCOS (polycystic ovarian syndrome) 11/08/2024 Travel from Last 3 Months Immunizations Immunization Administration Dates Next Due H1N1 Nasal 07/24/2009 Influenza, Injectable, quadrivalent (PF) 020,05/29/2020,07/27/2018 Family History Medical History Relation Name Comments Diabetes Father Diabetes Maternal Grandfather Lung cancer Maternal Grandmother Hypertension Mother Stomach cancer Paternal Grandfather Diabetes Paternal Grandmother Relation Name Status Comments Father Alive Maternal Grandfather Maternal Grandmother Mother Alive Paternal Grandfather Paternal Grandmother Social History Tobacco Use Types Packs/Day Years Used Date Smoking Tobacco: Former Cigarettes Smokeless Tobacco: Never Tobacco Cessation:Counseling Given: Not Answered Alcohol Use Standard Drinks/Week Comments No 0 (1 standard drink = 0.6 oz pur e alcohol) AUDIT-C Answer Date Recorded Frequency of Alcohol Consumption Never 10/17/2019 Average Number of Drinks Not on file 020 Frequency of Binge Drinking Not on file 11/2019 PHQ-2 Answer Date Recorded Total Score 0 11/08/2024 Childcare Answer Date Recorded Childcare Unknown 02/23/2019 Employment Answer Date Recorded Employment Unknown 02/23/2019 Hunger Screening Answer Date Recorded Within the past 12 months we worried whether our food would run out before we got money to buy more. Never True 11/08/2024 Within the past 12 months th e food we bought just didn't last and we didn't have money to get more. Never True 11/08/2024 Purpose - Life Answer Date Recorded Purpose and direction in life Unknown Comments No Sex and Gender Information Value Date Recorded Sex Assigned at Female 01/07/2024 1:19 PM EDT Legal Sex Female 11:29 AM EDT Gender Identity Female 01/07/2024 1:19 PM EDT Sexual Orientation Straight 01/07/2024 1: 19 PM EDT Last Filed Vital Signs Vital Sign Reading Time Taken Comments Blood Pressure 142/86 11/08/2024 7:53 AM EST Pulse 75 11/08/2024 7:53 AM EST Temperature 36.6 C (97.9 F) 10/07/2024 10:42 AM EST Respiratory Rate 18 11/08/2024 7:53 AM EST Oxygen Saturation 95% 11/08/2024 7:53 AM EST Inhaled Oxygen Concentration - - Weight 119.3 kg (263 lb) 11/22/2024 8:20 AM EDT Height 162.6 cm (5' 4 ) 11/22/2024 8:20 AM EDT Body Mass Index 45.14 11/22/2024 8:20 AM EDT Plan of Treatment Upcoming Encounters Date Type Department Care Team (Late st Contact Info) Description 11/09/2025 8:30 AM EST Office Visit [facility] [address] [place] [address] Jesus Berumen MD [address] [place] [address] Health Maintenance Due Date Last Done Comments Adult BMI Follow Up Plan 11/17/2003 DTaP,Tdap and Td Vaccines (1 - Tdap) 2004 Influenza Vaccine 05/15/2025 06/02/2020, , 07/27/2018, Additional history exists Depression Screening 11/08/2025 11/08/2024 Adult BMI Screening 11/22/2025 11/22/2024 Tobacco Screening 12/06/2025 12/06/2024 Pap Smear 01/20/2027 01/21/2024 Medical Devices Not on file Procedures Procedure Name Priority Date/Time Associated Diagnosis Comments US PELVIC WITH TRANSVAGINAL Routine 01/24/2025 10:08 AM EDT SURGICAL PATHOLOGY Routine 11/22/2024 9: 11 PM EDT HEMOGLOBIN A1C Routine 11/08/2024 8:34 AM EST PCOS (polycystic ovarian syndrome) Hypertriglyceridemi a CBC WITH AUTO DIFFERENTIAL Routine 11/08/2024 8:32 AM EST Routine general medical examination at a health care facility THYROID PROFILE INCLUDES TSH FT4 Routine 11/08/2024 8:32 AM EST Routine general medical examination at a health care facility LIPID PROFILE Routine 11/08/2024 8:32 AM EST Routine general medical examination at a health care facility COMPREHENSIVE METABOLIC PANEL Routine 11/08/2024 8:32 AM EST Routine general medical examination at a health care facility from Last 3 Months Results * Ultrasound pelvic with transvaginal (01/24/2025 10:08 AM EDT) Anatomical Region Laterality Modality Body, Pelvis Ultrasound us Scanning Provider External IMG US ORDERABLES Fin al Result * Surgical Pathology (11/22/2024 9:11 PM EDT) Skin cyst 11/22/2024 9:11 PM EDT 11/22/2024 9:11 PM EDT Narrative COPATH - 11/29/2024 10:08 AM EDT [facility] [address] [place] [address] Surgical Pathology Consultation Patient Name:TIN ARIZMENDI:1985 (Age: 39)Gender:FTaken:11/22/2024Reported:11/29/2024Physician(s):Millie Mercer MD ([phone])Copy To: Rec. #:[id number]: #[id number] Final Pathologic Diagnosis Skin and soft tissue, abdomen, excisional biopsy: Benign epidermal/epidermoid inclusion cyst (one), ruptured, with marked acute inflammation, mild chronic inflammation and granulation tissue, abdomen. Report Electronically Signed Out ihw/11/29/2024IRVING MD DANIEL Interpretation performed at [facility], [address] [place] [address], License number: [id number]. Clinical History Inclusion cyst L72.0. Gross Description Received in formalin labeled ALDOUMNDENA, abdominal cyst is a pale-moreno wrinkled ellipse of skin, 2.3 x 1.1 x 0.1 cm. No lesion or area of discoloration is definitively identified. The resection margin is inked green. The specimen is serially sectioned to reveal a cystic structure filled with friable vegetative material. Two small business sales representative cross sections are submitted in a single cassette. (1, ns, [id number],m8.1) DM. dm/11/23/2024NSK Specimen(s) Received Left abdomen Fee Codes(s): 1; 44055 us Millie Mercer MD PATHOLOGY/CYTOLOGY ORDERAB LES Final Result COPATH * Hemoglobin A1c (11/08/2024 8:34 AM EST) Hemoglobin A1C 5.6 4.4 - 5.6 % 11/08/2024 2:37 PM [facility] Comment: NOTE ADA Guidelines Result HgbA1c Normal : less than 5.7 % Prediabetes : 5.7 % to 6.4 % Diabetes : > 6.4 % Use with caution in patients with abnormal hemoglobin variants as the half-life of red blood cells and in vivo glycation rates are affected. Average glucose 114 mg/dL 2:37 PM EST [facility] PLASMA 11/08/2024 8:34 AM EST 11/08/2024 8:35 AM EST Jax Mckeon MD LAB BLOOD ORDERABLES Final R [facility] Performing Organization Address [facility] de Phone Number [facility] [address] [place] [address] * Thyroid profile includes TSH FT4 (11/08/2024 8:32 AM EST) Pathologist [facility] TSH 1.64 0.49 - 4.67 uIU/mL 11/08/2024 1:53 PM [facility] T4, free 0.65 0.61 - 1.60 ng/dL 11/08/2024 1:55 PM [facility] PLASMA 11/08/2024 8:32 AM EST 11/08/2024 8:33 AM EST us Jax Mckeon MD LAB BLOOD ORDERABLES Final R esult Performing Organization Address [facility] Co de Phone Number [facility] [address] [place] [address], [place] [address] * CBC auto differential (11/08/2024 8:32 AM EST) Pathologist [facility] White Blood Cells 8.5 4.0 - 11.0 X10E9/L 11/08/2024 1:28 PM [facility] RBC count 4.34 3.80 - 5.20 X10E12/L 11/08/2024 1:28 PM [facility] Hemoglobin 13.2 11.7 - 15.5 g/dL 11/08/2024 1:28 PM [facility] Hematocrit 38.7 35 - 47 % 11/08/2024 1:28 PM [facility] MCV 89 80 - 100 fL 11/08/2024 1:28 PM [facility] MCH 30.4 27 - 34 pg 11/08/2024 1:28 PM [facility] MCHC 34.1 32 - 36 g/dL 11/08/2024 1:28 PM [facility] RDW 14.3 11.5 - 15.0 % 11/08/2024 1:28 PM [facility] Platelets 338 150 - 450 X10E9/L 11/08/2024 1:28 PM [facility] MPV 7.8 7 - 12 fL 11/08/2024 1:28 PM [facility] % neutrophils 57.0 % 11/08/2024 1:28 PM [facility] % lymphocytes 33.6 % 11/08/2024 1:28 PM [facility] % monocytes 6.2 % 11/08/2024 1:28 PM [facility] % eosinophils 2.6 % 11/08/2024 1:28 PM [facility] % Basophils 0.6 % 11/08/2024 1:28 PM [facility] Neutrophils Absolute (A) 4.8 1.5 - 6.6 X10E9/L 11/08/2024 1:28 PM [facility] Lymphocytes Absolute 2.8 1.0 - 3.5 X10E9/L 11/08/2024 1:28 PM [facility] Monocytes Absolute 0.5 0 - 0.9 X10E9/L 11/08/2024 1:28 PM [facility] Eosinophils Absolute 0.2 0.0 - 0.4 X10E9/L 11/08/2024 1:28 PM [facility] Basophils Absolute 0.1 0.0 - 0.2 X10E9/L 11/08/2024 1:28 PM [facility] Blood / Unknown 11/08/2024 8 :32 AM EST 11/08/2024 8:33 AM EST Jax Mckeon MD LAB BLOOD ORDERABLES Final R esult Performing Organization Address City/[facility]/ZIP Co de Phone Number [facility] [address] [facility] [facility], [address] [place] [address] * (ABNORMAL) Lipid profile (11/08/2024 8:32 AM EST) Cholesterol 162 150 - 200 mg/dL 11/08/2024 1:56 PM [facility] Triglycerides 615(H) 27 - 150 mg/dL 11/08/2024 1:56 PM [facility] HDL Cholesterol 36(L) >39 mg/dL 11/08/2024 1:56 PM [facility] Comment: HDL <40 mg/dL - High Risk HDL > or = 40mg/dL- Desirable HDL >60 mg/dL - Negative Risk VLDL 123(H) 0 - 30 mg/dL 11/08/2024 1:56 PM [facility] LDL (calc) RESULT BELOW DETECTABLE RANGE <130 mg/dL 11/08/2024 1:56 PM [facility] Cholesterol:HDL Ratio 4.5 1.0 - 5.0 11/08/2024 1:56 PM [facility] PLASMA 11/08/2024 8:32 AM EST 11/08/2024 8:33 AM EST Jax Mckeon MD LAB BLOOD ORDERABLES Final R esult [facility] [address] [place] [address] * (ABNORMAL) Comprehensive metabolic panel (11/08/2024 8:32 AM EST) Sodium 140 134 - 146 mmol/L 11/08/2024 1:52 PM [facility] Potassium, Bld 3.5 3.5 - 5.0 mmol/L 11/08/2024 1:52 PM [facility] Chloride 106 98 - 109 mmol/L 11/08/2024 1:52 PM [facility] CO2 25 22 - 32 mmol/L 11/08/2024 1:52 PM [facility] Anion gap 9 5 - 15 mmol/L 11/08/2024 1:52 PM [facility] BUN 8 5 - 23 mg/dL 11/08/2024 1:52 PM [facility] Creatinine 0.83 0.40 - 1.00 mg/dL 11/08/2024 1:52 PM [facility] Comment:METHOD TRACEABLE TO IDMS STANDARD Glucose 94 65 - 99 mg/dL 11/08/2024 1:52 PM [facility] Calcium 9.0 8.5 - 10.5 mg/dL 11/08/2024 1:52 PM [facility] Total Protein 6.8 6.0 - 8.0 g/dL 11/08/2024 1:56 PM [facility] Albumin 3.8 3.2 - 5.3 g/dL 11/08/2024 1:56 PM [facility] Alkaline Phosphatase 54 39 - 130 U/L 11/08/2024 1:56 PM [facility] AST 32 0 - 41 U/L 11/08/2024 1:56 PM [facility] ALT 32(H) 0 - 31 U/L 11/08/2024 1:56 PM [facility] Total bilirubin 0.4 0.3 - 1.2 mg/dL 11/08/2024 1:56 PM EST [facility] eGFR (CKD-EPI)non-rac e dependent >90 >59 ml/min/1.7 3sq.m 11/08/2024 1:52 PM EST [facility] Comment: Reported eGFR is based on the CKD-EPI 2020 equation that does not use a race coefficient. PLASMA 11/08/2024 8:32 AM EST 11/08/2024 8:33 AM EST us Jax Mckeon MD LAB BLOOD ORDERABLES Final R esult [facility] [address] [place] [address] from Last 3 Months Insurance [employer] Care Teams High Risk Case Manager Relationship Specialty Start Date End Date Jesus Berumen MD [address] [place] [address] PCP - General Internal Medicine 01/24/25
--- OUTSIDE RECORDS SUMMARY | 2025-02-02 16:33 | XMS_ITS | Clinical Summary ---
Author Organization [facility] Address [address] [place] [address] Care Team Providers Care Rnp Name Role Phone Dwayne Johnson Unavailable Allergies Active Allergy Reactions Criticality Noted Date Comments Amoxicillin Hives 03/09/2023 Skin test is negative. Challenge pending Penicillins Hives 10/15/2020 Medications Follitropin Keyon (GONAL-F RFF REDI-JECT) 300/0.5 unit/mL pnij Inject 75 Units subcutaneously once daily. 1 Each 3 12/02/19 24 Active PNV no.95/ferrous fum/folic ac ( ORAL) Take by mouth. Active ethynodiol diacetate-ethiny l estradiol 1 mg-35 mcg (ZOVIA , ,) 1-35 mg-mcg per tablet Start day 1 of full flow period. Take 1 pill by mouth daily at bedtime, active pills only. Skip or throw out placebo week. 28 tablet 1 03/23/20 24 Active Norethin Misael-Eth Estrad-FE (MICROGESTIN FE) 1.5 mg-30 mcg (21)/75 mg (7) tabletIndication s:Irregular menses Take 1 tablet by mouth once daily. 28 tablet 1 04/15/20 24 Active dexAMETHasone (DECADRON) 0.5 mg tablet Take 1 tablet by mouth once daily. 30 tablet 3 06/10/20 24 Active Follitropin Beta (FOLLISTIM AQ) 300 unit/0.36 mL Inject 200 Units subcutaneously once daily 2 Each 4 08/08/20 24 Active metFORMIN (GLUCOPHAGE) 500 mg tablet Take 1 tablet by mouth twice daily 60 tablet 2 11/08/19 25 Active chorionic gonadotropin (PREGNYL) 10,000 unit solrIndications: Female infertility 10,000 Units once daily. 10,000 Units as directed. Inject 10,000 units for HCG trigger 1 Each 1 11/15/19 25 Active letrozole (FEMARA) 2.5 mg tablet Take 4 tablets by mouth once daily. 20 tablet 5 11/15/19 25 Active progesterone micronized (PROMETRIUM) 200 mg capsule Use 1 capsule vaginally daily at bedtime. Starts 3 days after trigger and stop if no test 20 days after trigger 30 capsule 2 11/25/19 25 Active Active Problems Problem Noted Date Diagnosed Date Pre-op exam 10/30/2023 Class 3 severe obesity due t o excess calories with body mass index (BMI) of 40.0 to 44.9 in adult 10/30/2023 Missed 10/30/2023 High blood pressure 10/16/2021 10/30/2023 Encounters Date Type Department Care Team Description 01/18/2025 Patient Msg Reproductive Endocrinology Infertility [address] [place] [address] Kerry Weiner PA-C Following up 01/09/2025 10:40 AM EDT Nurse Visit [facility] [address] [place] [address] Encounter for test, result positive (HCC) 01/09/2025 Orders Only Reproductive Endocrinology Infertility [address] [place] [address] Sushial Vee, ANGELITA.CEMENT CRUSHER OPERATOR with inconclusive viability, single or unspecified fetus (HCC) (Primary Dx) 12/30/2024 10:10 AM EDT Nurse Visit Reproductive Endocrinology Infertility [address] [place] [address] Encounter for test, result positive (HCC) 12/23/2024 Travel 12/16/2024 2:00 PM EDT [facility] Reproductive Endocrinology Infertility [address] [place] [address] Kerry Weiner PA-C Encounter for test, result positive (HCC) (Primary Dx) 12/15/2024 Results Follow-Up Reproductive Endocrinology Infertility [address] [place] [address] Kerry Weiner PA-C 12/13/2024 Results Follow-Up [facility]ductive Endocrinology Infertility [address] [place] [address] Sushila Vee APRN.CEMENT CRUSHER OPERATOR 12/09/2024 Telephone Reproductive Endocrinology Infertility [address] [place] [address] Augusto Tracy MD +hpt on darwin re labwork; Wen / Malu please call pt re +hpt 12/09/2024 Telephone Reproductive Endocrinology Infertility [address] [place] [address] Augusto Tracy MD +hpt lmp 11/11 did super ov cycle req labwork 11/25/2024 7:00 AM EDT Procedure Reproductive Endocrinology Infertility [address] [place] [address] Infertility 11/25/2024 Telephone Reproductive Endocrinology Infertility [address] [place] [address] Self progesterone shots 11/25/2024 Patient Msg Reproductive Endocrinology Infertility [address] [place] [address] Provider, Ccf Super OV Plan 11/25/24 11/24/2024 7:40 AM EDT Procedure Reproductive Endocrinology Infertility [address] [place] [address] Infertility 11/24/2024 Patient Msg Reproductive Endocrinology Infertility [address] [place] [address] Provider, Ccf plan for 11/24/24 11/21/2024 8:20 AM EDT Procedure Reproductive Endocrinology Infertility [address] [place] [address] Infertility 11/21/2024 Patient Msg Reproductive Endocrinology Infertility [address] [place] [address] Provider, Ccf plan for 11/21/24 11/21/2024 Travel 11/14/2024 7:40 AM EST Procedure Reproductive Endocrinology Infertility [address] [place] [address] 11/14/2024 Telephone Reproductive Endocrinology Infertility [address] [address] Augusto Tracy MD needs letrozole today 11/14/2024 Patient Msg Reproductive Endocrinology Infertility [address] [place] [address] Provider, Ccf plan for 11/14/24 11/11/2024 Telephone Reproductive Endocrinology Infertility [address] [place] [address] Augusto Tracy MD Appointment 11/08/2024 Telephone [facility]ductive Endocrinology Infertility [address] [place] [address] Sushila Vee, CLIENT SERVICE REPRESENTATIVE.CEMENT CRUSHER OPERATOR Refill Request 11/08/2024 Refill Reproductive Endocrinology Infertility [address] [place] [address] Sushila Vee, CLIENT SERVICE REPRESENTATIVE.CEMENT CRUSHER OPERATOR Refill Request from Last 3 Months Family History Medical History Relation Comments Diabetes Father Diabetes Maternal Grandfather Obstructive Sleep Apnea Maternal Grandfather Stroke Maternal Grandfather Cancer Maternal Grandmother lung-smoker Diabetes Mother pcos Mother Cancer Paternal Grandfather stomach Diabetes Paternal Grandmother Breast Cancer No Family History Cervical Cancer No Family History Ovarian cancer No Family History Relation Status Comments Father Alive Maternal Grandfather Maternal Grandmother Mother Alive Paternal Grandfather Paternal Grandmother Social History Tobacco Use Types Packs/Day Years Used Date Smoking Tobacco: Former Cigarettes 1 17 Smokeless Tobacco: Never Tobacco Cessation:Counseling Given: Not Answered Alcohol Use Standard Drinks/Week Comments Not Currently [...] is lower risk 7 08/19/2023 Data from: https://www.neighborhoodatlas.medicine.[facility].edu/. Last address used for calculation [address] [facility] 08/19/2023 Comments No Sex and Gender Information Value Date Recorded Sex Assigned at Female 06/12/2021 8:50 PM EDT Legal Sex Female 3:20 PM EST Gender Identity Female 06/12/2021 8:50 PM EDT Sexual Orientation Straight 06/12/2021 8: 50 PM EDT Last Filed Vital Signs Vital Sign Reading Time Taken Comments Blood Pressure 145/72 05/13/2024 12:16 PM EDT Pulse 80 05/13/2024 12:16 PM EDT Temperature 36.6 C (97.9 F) 05/13/2024 11:38 AM EDT Respiratory Rate 18 05/13/2024 12:16 PM EDT Oxygen Saturation 93% 05/13/2024 12:16 PM EDT Inhaled Oxygen Concentration - - Weight 113.4 kg (250 lb) 05/13/2024 11:38 AM EDT Height 162.6 cm (5' 4 ) 05/13/2024 11:38 AM EDT Body Mass Index 42.91 05/13/2024 11:38 AM EDT Plan of Treatment Upcoming Encounters Date Type Department Care Team (Late st Contact Info) Description 03/23/2025 10:00 AM EDT [facility] Reproductive Endocrinology Infertility [address] [place] [address] Santa No MD [address] [place] [address] infertility Health Maintenance Due Date Last Done Comments Annual PCP Team Chronic Dise ase Visit 11/17/2003 Anxiety Screening 11/17/2003 BP Controlled (<130/80) 11/17/2003 Depression Screening 11/17/2003 HIV Screening 11/17/2003 Hepatitis C Screening 11/17/2003 DTaP,Tdap,Td Vaccine (1 - Tdap) 2004 Hepatitis B Vaccine (1 of 3 - 19+ 3-dose series) 2004 Covid-19 Vaccine ( - 2023-2 5 season) 2024 Cervical Cancer Screening 01/20/2025 01/21/2024, 05/2024 Influenza Vaccine (Season Ended) 2025 06/02/2020, 05/29/2020, 07/27/2018, Additional history exists Procedures Procedure Name Priority Date/Time Associated Diagnosis Comments HCG QUANTITATIVE STAT 01/09/2025 11:1 9 AM EDT with inconclusive viability, single or unspecified fetus (HCC) OBSTETRIC ULTRASOUND WHI Routine 01/09/2025 10:29 AM EDT Encounter for test, result positive (HCC) OBSTETRIC ULTRASOUND WHI Routine 12/30/2024 9:58 AM EDT Encounter for test, result positive (HCC) HCG QUANTITATIVE Routine 12/14/2024 8:21 AM EDT Encounter for test, result positive (HCC) HCG QUANTITATIVE Routine 12/12/2024 5:05 PM EDT Encounter for test, result positive FOLLICULAR US WHI Routine 11/25/2024 7:0 2 AM EDT Encounter for fertility testing ESTRADIOL-17B BLD STAT 11/25/2024 6:4 7 AM EDT Encounter for fertility testing FOLLICULAR US WHI Routine 11/24/2024 7:3 0 AM EDT Encounter for fertility testing ESTRADIOL-17B BLD STAT 11/24/2024 7:0 9 AM EDT Female infertility FOLLICULAR US WHI Routine 11/21/2024 8:2 5 AM EDT Encounter for fertility testing ESTRADIOL-17B BLD STAT 11/21/2024 7:5 2 AM EDT Encounter for fertility testing FOLLICULAR US WHI Routine 11/14/2024 7:4 5 AM EST Encounter for fertility testing ESTRADIOL-17B BLD STAT 11/14/2024 7:0 8 AM EST Female infertility PAP TEST Routine 01/21/2024 8:44 AM EDT Encounter for Papanicolaou smear for cervical cancer screening from Last 3 Months or Most Recently Relevant to Health Maintenance Results * (ABNORMAL) HCG QUANTITATIVE (01/09/2025 11:19 AM EDT) Only the most recent of3 resultswithin the time period is included. hCG Quantitative, Blood 30,030.0(H ) <5.0 mIU/mL 01/09/2025 12:38 PM EDT [facility] Comment: QUANTITATIVE HCG NORMAL RANGES Weeks of Gestation (Weeks Since LMP) 3 Weeks (5.8-71.2 mIU/mL) 4 Weeks (9.5-750 mIU/mL) 5 Weeks (217-7138 mIU/mL) 6 Weeks (158-44584 mIU/mL) 7 Weeks (3697-967098 mIU/mL) 8 Weeks (95452-296413 mIU/mL) 9 Weeks (31691-198830 mIU/mL) 10 Weeks (87699-860710 mIU/mL) 12 Weeks (84156-771742 mIU/mL) Referenced to 4th IS of [facility] Blood BLOOD SPECIMEN / Unknown Venipuncture / Unknown 01/09/2025 11:19 AM EDT 01/09/2025 11:19 AM EDT us Sushila Vee APRN.CEMENT CRUSHER OPERATOR LABORATORY Final R esult [facility] [address] [facility] [place] [address], [place] * OBSTETRIC ULTRASOUND WHI (01/09/2025 10:29 AM EDT) Anatomical Region Laterality Modality Other 01/09/2025 10:2 9 AM EDT Narrative 01/09/2025 11:55 AM EDT Indication Viability Impression Intrauterine gestational sac with [...] Lt ovary: Visualized Performed By: Chary Acevedo; RDMS Read By: Odalis Parikh M.D. us Augusto Tracy MD [facility] Final Result * OBSTETRIC ULTRASOUND WHI (12/30/2024 9:58 AM EDT) Anatomical Region Laterality Modality Other 12/30/2024 9:58 AM EDT Narrative 12/30/2024 11:04 AM EDT Indication Viability Impression Intrauterine gestational sac without [...] Performed By: Tatum Burton RDMS Read By: Augusto Tracy M.D. us Kerry Weiner PA-C [facility] Final Result * FOLLICULAR US WHI (11/25/2024 7:02 AM EDT) Anatomical Region Laterality Modality Other 11/25/2024 7:02 AM EDT Narrative 11/25/2024 12:20 PM EDT Indication Follicle monitoring Impression Right [...] free fluid visualized Performed By: Chary Acevedo; [facility] Read By: Augusto Tracy M.D. Meagan Russ CLIENT SERVICE REPRESENTATIVE.[facility] Final R esult * (ABNORMAL) ESTRADIOL-17B BLD (11/25/2024 6:47 AM EDT) Only the most recent of4 resultswithin the time period is included. Estradiol 17B 283(H) 8 - 37 pg/mL 11/25/2024 8:24 AM EDT [facility] Comment: This test is not suitable [...] 3243 pg/mL Second trimester : 1561 to 41406 pg/mL Third trimester : 8285 to >57997 pg/mL Post-menopausal Estradiol reference range: < 41 pg/mL Reference: 1. Estradiol - E2 (Estradiol III) [package insert V 3.0 French]. [facility], [place], [place], February 2016. Blood BLOOD SPECIMEN / Unknown Venipuncture / Unknown 11/25/2024 6:47 AM EDT 11/25/2024 6:47 AM EDT Meagan Russ CLIENT SERVICE REPRESENTATIVE.[facility] Final R esult [facility] [address] [facility] [place] [address], * FOLLICULAR US WHI (11/24/2024 7:30 AM EDT) Anatomical Region Laterality Modality Other 11/24/2024 7:30 AM EDT Narrative 11/24/2024 10:29 AM EDT Indication Follicle monitoring Impression Right [...] Performed By: Chary Acevedo; RD Read By: Tiffany Gonzalez MD us Meagan Russ CLIENT SERVICE REPRESENTATIVE.[facility] Final R esult * FOLLICULAR US [facility] (11/21/2024 8:25 AM EDT) Anatomical Region Laterality Modality Other 11/21/2024 8:25 AM EDT Narrative 11/21/2024 8:57 AM EDT Indication Follicle monitoring Impression Right [...] Performed By: Chary Acevedo; RD Read By: Lina Gilliam M.D. us Meagan Russ CLIENT SERVICE REPRESENTATIVE.[facility] Final R esult * FOLLICULAR US [facility] (11/14/2024 7:45 AM EST) Anatomical Region Laterality Modality Other 11/14/2024 7:45 AM EST Narrative 11/14/2024 8:31 AM EST Indication Baseline TV Impression Right Ovary: Size [...] Bates RDMS Read By: Lina Gilliam M.D. Meagan Russ CLIENT SERVICE REPRESENTATIVE.[facility] [employer] Final R esult * PAP TEST (01/21/2024 8:44 AM EDT) Case Report Gynecologic Cytology Report Case: [id number] Authorizing Provider: Pepe Pope, Collected: 01/21/2024 08:44 AM Ordering Location: OB/Gynecology Received: 01/21/2024 04:22 PM First Screen: Tamia Cardona Rescreen: Priya Galaviz Specimen: Pap Test, ThinPrep, Cervix 02/05/2024 12:58 PM EDT [facility] Specimen Adequacy Satisfactory for interpretation. No endocervical component 02/05/2024 12:58 PM EDT [facility] Interpretation Negative for intraepithelial lesion or malignancy. 02/05/2024 12:58 PM EDT [facility] at 1258 EDT Clinical History Routine Exam 2023 12:58 PM EDT [facility] LMP 08/16/2023 02/05/2024 12:58 PM EDT [facility] HPV Reflex Yes HPV 02/05/2024 12:58 PM EDT [facility] Pap Disclaimer The Pap Smear is a screening test for cervical cancer. False negative results occur with all screening tests, emphasizing the need for rescreening at recommended intervals, and clinical correlation. 02/05/2024 12:58 PM EDT [facility] PAP Retail General Manager Comment This specimen has been analyzed by the ThinPrep Imaging System, an automated imaging and review system, which assists the laboratory in evaluating cells on ThinPrep Pap tests. Following automated imaging, selected pacheco from every slide are reviewed by a diorama model maker. 02/05/2024 12:58 PM EDT [facility] Performing Lab Technical component, diorama model maker screening performed at [facility], [address] [place] [address] CLIA# [id number] Diagnostic interpretation performed at [facility], [address] [place] [id number] CLIA# [id number] Data Processing Systems Project Planner: Thomas Cano M.D. 02/05/2024 12:58 PM EDT [facility] Sterile Fluid/Body Fluid CERVICAL / Unknown Non Blood / Unknown 01/21/2024 8:44 AM EDT 01/21/2024 4:22 PM EDT us Pepe Pope MD CYTOLOGY Final Resul t [facility] [address] [place] [address], [facility] [address] [place] [address], from Last 3 Months or Most Recently Relevant to Health Maintenance Insurance Member Subscriber Plan / Payer (Ef fective 2019-Present) Name:Aleida Arizmendi Relation to Subscriber:Self Name:Aleida Arizmendi Payer ID:Not on file Type:PPO Address: [place] [id number] Care Teams Rnp Relationship Specialty Start Date End Date [employer] [address] [place] [address] Referring Online Advertising Director 10/04/20
--- OUTSIDE RECORDS SUMMARY | 2025-02-02 16:33 | XMS_ITS | Encounter Summary ---
[id number] [address] [place] [address] Care Team Providers Care Seaming Inspector Name Role Phone Jesus Berumen MD Primary Care Provider [phone] Encounter Details Date Type Department Care Team ([facility] st Contact Info) Description 02/29/2024 Telephone [facility] Pulmonary/Sleep Medicine [address] [phone] Lila Edmonds Social History Tobacco Use Types [...] * Telephone Encounter - Lila Edmonds - 02/29/2024 5:04 PM EDT LEFT MESSAGE FOR PT TO RETURN CALL NEED TO KNOW IF PATIENT IS USING CPAP AND WHAT DME SHE USES. NOT LINKED PT NEEDS TO GET LINKED OR BRING IN CPAP MACHINE TO APPT. documented in this encounter Plan of Treatment Upcoming Encounters Date Type Department Care Team (Late st Contact Info) Description 11/09/2025 8:30 AM EST Office Visit [facility] Family Medicine [address] [place] [phone] Jesus Berumen MD [address] [place] [address] documented as of this encounter Visit Diagnoses Not on filedocumented in this encounter Additional Health Concerns Assessment Noted Time PHQ-9 Depression Total Score: 0 11/20/19 24 7:00 AM EST A Body Mass Index follow-up plan has been documented for the patient 10/31/2019 12:28 PM EST documented as of this encounter Care Teams Seaming Inspector Relationship Specialty Start Date End Date Jesus Berumen MD [address] [place] [address] [phone] PCP - General Internal Medicine 01/24/25 documented as of this encounter
--- OUTSIDE RECORDS SUMMARY | 2025-02-02 16:33 | XMS_ITS | Encounter Summary ---
Author Organization [facility] Address [address] [place] [address] Care Team Providers Care Motor Pool Clerk Name Role Phone Dwayne Johnson Unavailable Source Comments In the event this information is protected by the Federal Confidentiality of Alcohol and Drug AbusePatient Records regulations: The Federal rules restrict any use of the information to criminally investigate or prosecute any alcohol or drug abuse patient.[facility] Encounter Details Date Type Department Care Team (Late st Contact Info) Description 10/12/2024 Patient Msg Reproductive Endocrinology Infertility [address] [place], [place] [id number] Provider, Ccf plan for 10/12/24 Social History Tobacco Use Types Packs/Day Years [...] risk 7 08/19/2023 Data from: https://www.neighborhoodatlas.medicine.[facility].edu/. Last address used for calculation [...] Info) Description 03/23/2025 10:00 AM EDT [facility] Reproductive Endocrinology Infertility [address] [place] [address] Santa No MD [address] [place], [place] [phone] infertility documented as of this encounter Visit Diagnoses Not on filedocumented in this encounter Care Teams Motor Pool Clerk Relationship Specialty Start Date End Date Dwayne Johnson: [phone] [address] [place] [address] Referring Sealer Aircraft 10/04/20 documented as of this encounter
--- OUTSIDE RECORDS SUMMARY | 2025-02-02 16:33 | XMS_ITS | Encounter Summary ---
Author Organization [facility] Address [id number] [address] [place] [address] Care Team Providers Care Race Car Driver Name Role Phone Jesus Berumen MD Primary Care Provider [phone] Encounter Details Date Type Department Care Team (Late st Contact Info) Description 01/24/2025 Orders Only [facility] Medicine [address] [place] [phone] External, Scanning Provider Social History Tobacco Use Types Packs/Day Years [...] EST Office Visit [facility] Family Medicine [address] [place] [phone] Jesus Berumen MD [address] [place] [address] documented as of this encounter Procedures Procedure Name Priority Date/Time Associated Diagnosis Comments US PELVIC WITH TRANSVAGINAL Routine 01/24/2025 10:08 AM EDT documented in this encounter Results * Ultrasound pelvic with transvaginal (01/24/2025 10:08 AM EDT) Anatomical Region Laterality Modality Body, Pelvis Ultrasound us Scanning Provider External IMG US ORDERABLES Fin al Result documented in this encounter Visit Diagnoses Not on filedocumented in this encounter Additional Health Concerns Assessment Noted Time PHQ-9 Depression Total Score: 0 11/08/19 7:53 AM EST A Body Mass Index follow-up plan has been documented for the patient 10/31/2019 12:28 PM EST documented as of this encounter Care Teams Race Car Driver Relationship Specialty Start Date End Date Jesus Berumen MD [address] [place] [phone] PCP - General Internal Medicine 01/24/25 documented as of this encounter
--- OUTSIDE RECORDS SUMMARY | 2025-02-02 16:33 | XMS_ITS | Encounter Summary ---
Author Organization [facility] Address [address] [place] [address] Care Team Providers Care Rail Crew Member Name Role Phone Jax Mckeon MD Primary Care Provider [phone] Encounter Details Date Type Department Care Team (Late st Contact Info) Description 01/23/2025 Clinisync Result Encounter [facility] External Department Unsolicited Meagan Sales, CNM [address] [place] [address] Social History Tobacco Use Types Packs/Day Years [...] Industry Job Start Date Job End Date [employer]ites Not on file Not on file Not on file documented as of this encounter Plan of Treatment Not on file documented as of this encounter Procedures Procedure Name Priority Date/Time Associated Diagnosis Comments [facility] PREG QUANT HCG Routine 01/23/2025 2: 34 PM EDT documented in this encounter Results * [facility] PREG QUANT HCG (01/23/2025 2:34 PM EDT) HCG QUANTITATIVE 6,357 mIU/mL TB Comment: 5-50 0.2-1 WEEK 50-500 1-2 WEEKS 100-5,000 2-3 WEEKS 500-10,000 3-4 WEEKS 1,000-50,000 4-5 WEEKS 10,000-100,000 5-6 WEEKS 15,000-200,000 6-8 WEEKS 10,000-100,000 2-3 MONTHS 01/23/2025 2:34 PM EDT 01/23/2025 2:40 PM EDT Narrative [facility] - 01/23/2025 3:58 PM EDT us Meagan Sales CNM [facility] Final Result [facility] documented in this encounter Visit Diagnoses Not on filedocumented in this encounter Care Teams Rail Crew Member Relationship Specialty Start Date End Date Jax Mckeon MD PCP - General Family Medicine 10/16/23 documented as of this encounter
--- OUTSIDE RECORDS SUMMARY | 2025-02-02 16:33 | XMS_ITS | Clinical Summary ---
Author Organization [facility] Healthcare Address [address] [place] [address] Care Team Providers Care Accounts Adjustable Clerk Name Role Phone David Gimenez MD Primary Care Provider Allergies Active Allergy Reactions Criticality Noted Date Comments Penicillin G Rash Low 10/16/2023 Medications metFORMIN (Glucophage) 500 MG tablet Take 500 mg by mouth in the morning and 500 mg in the evening. 10/06/19 25 Active MV-Min-Fe Fum-FA-DHA ( 1 PO) Take by mouth Active progesterone 200 MG capsule Take 200 mg by mouth Daily Pt inserts it vaginally nightly 025 Discontinued Encounters Date Type Department Care Team Description 02/02/2025 3:50 PM EDT Office Visit [address] [place] [address] Sandee Valdovinos PA Postoperative examination 02/02/2025 Bamboo flowsheet [address] [place] [address] Sandee Valdovinos PA 01/26/[address] [place] [address] Miryam Green MA 01/24/2025 Results Follow-Up [facility] [address] [place] [address] Leonel Sales CNM 01/24/2025 Orders Only [facility] [address] [place] [address] Leonel Sales L, CNM 01/24/2025 Clinisync Result Encounter [facility] External Department Unsolicited Conor Cortes DO 01/23/2025 Results Follow-Up [facility] [address] [place] [address] Leonel Sales L, CNM 01/23/2025 Clinisync Result Encounter [facility] External Department Unsolicited Leonel Sales L, CNM 01/23/2025 Clinisync Result Encounter [facility] External Department Unsolicited Leonel Sales L, CNM 01/23/2025 Orders Only [facility] [address] [place] [address] Leonel Sales L, CNM Spontaneous 01/19/2025 Orders Only [facility] [address] [place] [address] Leonel Sales L, CNM Spontaneous 01/18/2025 Results Follow-Up [facility] [address] [place] [address] Leonel Sales L, CNM 01/18/2025 Results Follow-Up [facility] [address] [place] [address] Leonel Salse L, CNM 01/17/2025 Clinisync Result Encounter [facility] External Department Unsolicited Leonel Sales L, CNM 01/17/2025 Orders Only [facility] [address] [place] [address] Leonel Sales L, CNM Missed 01/16/2025 Orders Only [facility] [address] [place] [address] Leonel Sales L, CNM Spontaneous 01/16/2025 Telephone [facility] FM [address] [place] [address] Leonel Sales L, CNM 01/10/2025 4:30 PM EDT Initial [facility] [address] [place] [address] Leonel Sales CNM 01/10/2025 Bamboo flowsheet [facility] [address] [place] [address] Leonel Sales CNM from Last 3 Months Family History Medical History Relation Name Comments Diabetes Father Urban Hypertension Father Urban Diabetes Maternal Grandfather Simeon Cancer Maternal Grandmother Cheri Diabetes Mother ALS Other Cancer Paternal Grandfather Yair Hypertension Paternal Grandfather Yair Relation Name Status Comments Father Urban Maternal Grandfather Simeon Maternal Grandmother Cheri Mother Other Paternal Grandfather Yair Social History Tobacco Use Types Packs/Day Years Used Date Smoking Tobacco: Former Cigarettes Q uit: 09/28/2023 Smokeless Tobacco: Never Tobacco Cessation:Counseling Given: Not [...] Industry 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 Not on file Not on file Not on file Last Filed Vital Signs Vital Sign Reading Time Taken Comments Blood Pressure 130/84 02/02/2025 3:51 PM EDT Pulse - - Temperature - - Respiratory Rate - - Oxygen Saturation - - Inhaled Oxygen Concentration - - Weight 118 kg (261 lb 1.9 oz) 02/02/2025 3:51 PM EDT Height 162.6 cm (5' 4 ) 01/14/2023 12:00 PM EDT Body Mass Index 44.82 01/14/2023 12:00 PM EDT Plan of Treatment Not on file Procedures Procedure Name Priority Date/Time Associated Diagnosis Comments [facility] PREG QUANT HCG Routine 01/24/2025 6: 32 AM EDT ALL ABO/RH TYPE Routine 01/24/2025 6:32 AM EDT ALL CBC WITH AUTO DIFF Routine 01/24/2025 6:32 AM EDT US OB TRANSVAGINAL 01/23/2025 4: 13 PM EDT TBH PREG QUANT HCG Routine 01/23/2025 2: 34 PM EDT US OB TRANSVAGINAL 01/17/2025 4: 09 PM EDT HCG, TOTAL, QN Routine 01/13/2025 1:08 PM EDT Spontaneous HCG, TOTAL, QN Routine 01/11/2025 12:22 PM EDT Spontaneous from Last 3 Months Results * [facility] PREG QUANT HCG (01/24/2025 6:32 AM EDT) Only the most recent of2 resultswithin the time period is included. HCG QUANTITATIVE 5,469 mIU/mL [facility] Comment: 5-50 0.2-1 WEEK 50-500 1-2 WEEKS 100-5,000 2-3 WEEKS 500-10,000 3-4 WEEKS 1,000-50,000 4-5 WEEKS 10,000-100,000 5-6 WEEKS 15,000-200,000 6-8 WEEKS 10,000-100,000 2-3 MONTHS 01/24/2025 6:32 AM EDT 01/24/2025 6:33 AM EDT Narrative CLINISYNC - 01/24/2025 7:21 AM EDT us Conor Dayo DO [facility]INIS[facility] Final [facility] * (ABNORMAL) ALL CBC WITH AUTO DIFF (01/24/2025 6:32 AM EDT) TBH WBC 10.7 4.0 - 11.0 10 [...] - 01/24/2025 6:37 AM EDT us Conor Cortes DO CLINISYNC Final Result [facility] * ALL ABO/RH TYPE (01/24/2025 6:32 AM EDT) BLOOD TYPE O Positive TB[facility] 01/24/2025 6:32 AM EDT 01/24/2025 6:33 AM EDT Narrative CLINISYNC - 01/24/2025 7:17 AM EDT [facility] , us Conor Cortes DO CLINISYJESSICA Final Result [facility] * US OB TRANSVAGINAL (01/23/2025 4:13 PM EDT) Only the most recent of2 resultswithin the time period is included. Anatomical Region Laterality Modality Other 01/23/2025 4:13 PM EDT Narrative 01/23/2025 4:16 [place] [address] Ultrasound Report Signed Patient: TIN ARIZMENDI MR#: [id number] : 1985 Acct:[id number] Age/Sex: 39 / F ADM Date: 01/23/25 Loc: US Attending Dr: LEONEL SALES APRN, CNM Ordering Physician: LEONEL SALES APRN, CNM Date of Service: 01/23/25 Procedure(s): US OB transvaginal Accession Number(s): [id number] cc: DAVID GIMENEZ ; LEONEL SALES APRN, CNM The [place] [address] Patient Name: TIN ARIZMENDI MRN: [id number] date: 1985 Sex: F Assigned Patient Location: US Current Patient Location: US Accession/Order Number: [id number] Exam Date: 01/23/2025 16:08 Report Date: 01/23/2025 [...] Jr., D.O. 01/23/2025 4:13 PM Dictation Location: [place] [address] Electronically authenticated by: [id number] Date: 01/23/2025 16:13 Dictated By: Jose A Orona M.D. Signed By: 01/23/25 1616 DD/ 161 TD/TT: Broomcorn Grader: Procedure Note Radiology, Radiologist, MD - 01/23/2025 [place] [address] Ultrasound Report Signed Patient: TIN ARIZMENDI LMR#: [id number] : 1985Acct:[id number] Age/Sex: 39 / FADM Date: 01/23/25 Loc: US Attending Dr: LEONEL SALES APRN, CNM Ordering Physician: LEONEL SALES APRN, CNM Date of Service: 01/23/25 Procedure(s): US OB transvaginal Accession Number(s): [id number] cc: DAVID GIMENEZ ; LEONEL SALES APRN, CNM The [place] [id number] Patient Name: TIN ARIZMENDI MRN: [id number] date: 1985 Sex: F Assigned Patient Location: US Current Patient Location: US Accession/Order Number: [id number] Exam Date: 01/23/2025 16:08 Report Date: 01/23/2025 [...] Jr., D.O. 01/23/2025 4:13 PM Dictation Location: [place] [address] Electronically authenticated by: [id number] Y Date: 6:13 Dictated By: Jose A Orona M.D. Signed By:01/23/25 1616 DD/ 1613 TD/TT: Broomcorn Grader: Leonel Sales CNM [facility] IMAGING Final Resu lt * (ABNORMAL) hCG, quantitative, (01/13/2025 1:08 PM EDT) Only the most recent of2 resultswithin the time period is included. HCG, TOTAL, QN 31,372(H) mIU/mL [facility] Comment: Reference Range Non or premenopausal <5 Postmenopausal <10 Values from different assay methods may vary. The use of this assay to monitor or to diagnose patients with cancer or any condition unrelated to has not been cleared or approved by the FDA or the collision technician of the assay. Blood Venous blood specimen / Unknown 01/13/2025 1:08 PM EDT 01/13/2025 1:10 PM EDT Narrative Resulting Agency Comment Performing Organization Information Site ID: QPT Name: [facility] Address: [address] [place] [address] Director: Lucio Vernon MD Leonel Sales CNM LAB BLOOD ORDERABLES Final R esult [facility] from Last 3 Months Insurance [employer] Care Teams Accounts Adjustable Clerk Relationship Specialty Start Date End Date David Gimenez MD PCP - General Family Medicine 10/16/23
[2025-02-02 17:02] LABS: HCG Quantitative 12 mIU/mL
== END 2025-02-02 16:29 | disposition home or self-care (01) ==
LOC: LAB 16:28
PROVIDERS: PCP Family Medicine; Visit Provider Obstetrics & Gynecology
DX: Z09 Encounter for follow-up examination after completed treatment for conditions other than malignant neoplasm (principal)
CPT/HCPCS: 36415; 84702; 85025

== ENCOUNTER 2025-02-09 13:28 | Outpatient (OUT) | payer OTHER, SELFPAY ==
--- OUTSIDE RECORDS SUMMARY | 2025-02-02 15:50 | XMS_ITS | Encounter Summary ---
Author Organization [facility] Address [address] [place] [address] Care Team Providers Care Chemistry Technologist Name Role Phone Jax Mckeon MD Primary Care Provider + [phone] Reason for Visit * Reason Comments Post-op Visit Encounter Details Date Type Department Care Team (Late st Contact Info) Description 02/02/2025 3:50 PM EDT Office Visit [facility] OB [address] [place] [address] Sandee Valdovinos PA [address] [facility] [address] Postoperative examination Social History Tobacco Use Types Packs/Day Years Used Date Smoking Tobacco: Former Cigarettes Q uit: 09/28/2023 Smokeless Tobacco: Never Alcohol Use Standard Drinks/Week Comments Not Currently 0 (1 standard drink = 0.6 oz pure alcohol) Caffeine intake: 8-12oz coffee/day Comments Unknown Sex and Gender Information Value Date Recorded Sex Assigned at Not on file Legal Sex Female 6:33 PM EDT Gender Identity Not on file Sexual Orientation Not on file Occupation Industry Job Start Date Job End Date [employer] of disabilites Not on file Not on file Not on file documented as of this encounter Last Filed Vital Signs Vital Sign Reading Time Taken Comments Blood Pressure 130/84 02/02/2025 3:51 PM EDT Pulse - - Temperature - - Respiratory Rate - - Oxygen Saturation - - Inhaled Oxygen Concentration - - Weight 118 kg (261 lb 1.9 oz) 02/02/2025 3:51 PM EDT Height - - Body Mass Index 44.82 01/14/2023 12:00 PM EDT documented in this encounter Progress Notes * RIAZ Huntley - 02/02/2025 3:50 PM EDT Reason for Appointment: Patient ID: Aleida Arizmendi is a 39 y.o. female who presents for Post-op Visit Patient presents today for 1 Week Post Op Follow Up appointment. MEDICATIONS Current Outpatient Medications Medication Instructions metFORMIN (GLUCOPHAGE) 500 mg, 2 times daily MV-Min-Fe Fum-FA-DHA ( 1 PO) Take by mouth ALLERGIES Allergies Allergen Reactions Penicillin G Rash PROBLEMS Active Ambulatory Problems Diagnosis Date Noted No Active Ambulatory Problems Resolved Ambulatory Problems Diagnosis Date Noted No Resolved Ambulatory Problems Past Medical History: Diagnosis Date Hypertension (CMS/HCC) PCOS (polycystic ovarian syndrome) HISTORY PAST MEDICAL HISTORY SOCIAL HISTORY Past Medical History: Diagnosis Date Hypertension (CMS/HCC) PCOS (polycystic ovarian syndrome) Social History Tobacco Use Smoking status: Former Current packs/day: 0.00 Types: Cigarettes Quit date: 09/28/2023 Years since quittin.3 Smokeless tobacco: Never Vaping Use Vaping status: Never Used Substance Use Topics Alcohol use: Not Currently Comment: Caffeine intake: 8-12oz coffee/day Drug use: Never FAMILY HISTORY Family History Problem Relation Name Age of Onset Diabetes Mother Diabetes Father Urban Hypertension Father Urban Cancer Maternal Grandmother Cheri Diabetes Maternal Grandfather Simeon Cancer Paternal Grandfather Yair Hypertension Paternal Grandfather Yair ALS Other SURGICAL HISTORY Past Surgical History: Procedure Laterality Date CHOLECYSTECTOMY DILATION AND CURETTAGE OF UTERUS 01/24/2025 D&C suction LITHOTRIPSY REVIEW OF SYSTEMS Review of Systems: Review of Systems Constitutional: Negative. HENT: Negative. Eyes: Negative. Respiratory: Negative. Cardiovascular: Negative. Gastrointestinal: Negative. Genitourinary: Negative. Musculoskeletal: Negative. Skin: Negative. Neurological: Negative. All other systems reviewed and are negative. Hematological: Negative. Endocrine: Negative. Allergic/Immunologic: Negative. OBJECTIVE Objective: Physical Exam Constitutional: Appearance: Normal appearance. She is normal weight. HENT: Head: Normocephalic. Cardiovascular: Rate and Rhythm: Normal rate. Pulses: Normal pulses. Pulmonary: Effort: Pulmonary effort is normal. Breath sounds: Normal breath sounds. Abdominal: Palpations: Abdomen is soft. Musculoskeletal: General: Normal range of motion. Neurological: General: No focal deficit present. Mental Status: She is alert and oriented to person, place, and time. Psychiatric: Mood and Affect: Mood normal. Behavior: Behavior normal. Thought Content: Thought content normal. Judgment: Judgment normal. Vitals and nursing note reviewed. Vitals: Estimated body mass index is 44.82 kg/m?? as calculated from the following: Height as of 01/14/23: 5' 4 . Weight as of this encounter: 261 lb 1.9 oz. BP: 130/84 No LMP recorded. ASSESSMENT & PLAN ICD-10-CM 1. Postoperative examination Z09 hCG, quantitative, CBC and differential hCG, quantitative, Post Op Follow Up: Patient presents today for a postop follow up after having a D&C Hysteroscopy performed at [facility] with Dr. Cortes. Pathology results was reviewed with the patient in great detail and all restrictions have been lifted. Follow Up: Patient is to return to the office for annual exam unless needed otherwise. Documented by RIAZ Huntley on behalf of: RIAZ Huntley documented in this encounter Plan of Treatment Scheduled Orders Name Type Priority Associated Diagnoses Orde r Schedule hCG, quantitative, Lab Routine Postoperative examination Expected: 02/02/2025 (Approximate), Expires: 02/02/2026 CBC and differential Lab Routine Postoperative examination Ordered: 02/02/2025 documented as of this encounter Visit Diagnoses Diagnosis Postoperative examination Follow-up examination, following unspecified surgery documented in this encounter Care Teams Chemistry Technologist Relationship Specialty Start Date End Date Jax Mckeon MD PCP - General Family Medicine 10/16/23 documented as of this encounter
--- OUTSIDE RECORDS SUMMARY | 2025-02-09 13:31 | XMS_ITS | Encounter Summary ---
Author Organization [facility] Address [address] [place] [address] Care Team Providers Care Sack Department Supervisor Name Role Phone Dwayne Johnson Unavailable Source Comments In the event this information is protected by the Federal Confidentiality of Alcohol and Drug AbusePatient Records regulations: The Federal rules restrict any use of the information to criminally investigate or prosecute any alcohol or drug abuse patient.[facility] Encounter Details Date Type Department Care Team (Latest Contact Info) Description 05/28/2023 Patient Msg Reproductive Endocrinology Infertility [address] [place], [place] [address] Provider, Ccf Trigger Instructions for Super Ov [...] risk 7 02/18/2023 Data from: https://www.neighborhoodatlas.medicine.[facility].edu/. Last address used for calculation [address] [...] EDT [facility] Reproductive Endocrinology Infertility [address] [place] [address] Santa No MD [address] [facility] [address] infertility documented as of this encounter Visit Diagnoses Not on filedocumented in this encounter Care Teams Sack Department Supervisor Relationship Specialty Start Date End Date Dwayne Johnson [address] [place] [address] Referring Rv Service Technician 10/04/20 documented as of this encounter
--- OUTSIDE RECORDS SUMMARY | 2025-02-09 13:31 | XMS_ITS | Encounter Summary ---
Author Organization [facility] Address [address] [place] [address] Care Team Providers Care Tube Roller Name Role Phone Dwayne Johnson Unavailable Source [...] Description 05/21/2023 Patient Msg Reproductive Endocrinology Infertility [address] [place] [phone] Provider, Elyse Super Ov Plan 05/21/23 Social [...] Contact Info) Description 03/23/2025 10:00 AM EDT [facility] Reproductive Endocrinology Infertility [address] [place] [address] Santa No MD [address] [facility] [place] [address] infertility documented as of this encounter Visit Diagnoses Not on filedocumented in this encounter Care Teams Tube Roller Relationship Specialty Start Date End Date Dwayne oJhnson [address] [place] [address] Referring Supervisor Commissary Production 10/04/20 documented as of this encounter
--- OUTSIDE RECORDS SUMMARY | 2025-02-09 13:31 | XMS_ITS | Encounter Summary ---
Author Organization [facility] Address [address] [place] [address] Care Team Providers Care Shearing Machine Operator Name Role Phone Dwayne Johnson Unavailable Source Comments In the event this information is protected by the Federal Confidentiality of Alcohol and Drug AbusePatient Records regulations: The Federal rules restrict any use of the information to criminally investigate or prosecute any alcohol or drug abuse patient.[facility] Encounter Details Date Type Department Care Team (Late st Contact Info) Description 12/13/2024 Results Follow-Up Reproductive Endocrinology Infertility [address] [address] Sushila Vee APRN.LEATHER CARTRIDGE BELT MAKER [address] [place] [address] Social History Tobacco Use Types Packs/Day Years [...] Last address used for calculation [address] 08/19/2023 Comments No Sex and Gender [...] Description 03/23/2025 10:00 AM EDT [facility] Reproductive Endocrinology Infertility [address] [place] [address] Santa No MD [address] [place], [place] [phone] infertility documented as of this encounter Visit Diagnoses Not on filedocumented in this encounter Care Teams Shearing Machine Operator Relationship Specialty Start Date End Date Dwayne Johnson [address] [place] [address] Referring Ski Lift Operator 10/04/20 documented as of this encounter
--- OUTSIDE RECORDS SUMMARY | 2025-02-09 13:31 | XMS_ITS | Encounter Summary ---
Author Organization [facility] Address [address] [place] [address] Care Team Providers Care Black Off Worker Name Role Phone Dwayne Johnson Unavailable Source Comments In the event this information is protected by the Federal Confidentiality of Alcohol and Drug AbusePatient Records regulations: The Federal rules restrict any use of the information to criminally investigate or prosecute any alcohol or drug abuse patient.[facility] Encounter Details Date Type Department Care Team (Late st Contact Info) Description 11/14/2024 Patient Msg Reproductive Endocrinology Infertility [address] [place], [place] [phone] Provider, Ccf plan for 11/14/24 Social History [...] risk 7 08/19/2023 Data from: https://www.neighborhoodatlas.medicine.[facility].edu/. Last address used for calculation [address] [...] AM EDT [facility] Reproductive Endocrinology Infertility [address] [place] [address] Santa No MD [address] [place], [place] [phone] infertility documented as of this encounter Visit Diagnoses Not on filedocumented in this encounter Care Teams Black Off Worker Relationship Specialty Start Date End Date Dwayne Johnson: [phone] [address] [place] [address] Referring Forensics Analyst 10/04/20 documented as of this encounter
--- OUTSIDE RECORDS SUMMARY | 2025-02-09 13:31 | XMS_ITS | Encounter Summary ---
Author Organization [facility] Address [address] [place] [address] Care Team Providers Care Editorial Specialist Name Role Phone Dwayne Johnson Unavailable [...] Description 03/09/2024 Patient Msg Reproductive Endocrinology Infertility [address] [place] [phone] Provider, Ccf Follow up Social History Tobacco [...] risk 7 08/19/2023 Data from: https://www.neighborhoodatlas.medicine.[facility].edu/. Last address used for calculation [address] [...] Description 03/23/2025 10:00 AM EDT [facility] Reproductive Endocrinology Infertility [address] [place] [address] Santa No MD [address] [place] [place], [place] [address] infertility documented as of this encounter Visit Diagnoses Not on filedocumented in this encounter Care Teams Editorial Specialist Relationship Specialty Start Date End Date Dwayne Johnson [address] [place] [address] Referring Asbestos Textile Supervisor 10/04/20 documented as of this encounter
--- OUTSIDE RECORDS SUMMARY | 2025-02-09 13:31 | XMS_ITS | Encounter Summary ---
Author Organization [facility] Address [address] [place] [address] Care Team Providers Care Geochemist Name Role Phone Dwayne Johnson Unavailable Source Comments In the event this information is protected by the Federal Confidentiality of Alcohol and Drug AbusePatient Records regulations: The Federal rules restrict any use of the information to criminally investigate or prosecute any alcohol or drug abuse patient.[facility] Encounter Details Date Type Department Care Team (Latest Contact Info) Description 11/25/2024 Patient Msg Reproductive Endocrinology Infertility [address] [place] [address] Provider, Ccf Super OV Plan 11/25/24 Social [...] 7 08/19/2023 Data from: https://www.neighborhoodatlas.medicine.[facility].edu/. Last address used for calculation [address] [facility] Rep[facility]ductive Endocrinology Infertility [address] [place] [address] Santa No MD [address] [place] [phone] infertility documented as of this encounter Visit Diagnoses Not on filedocumented in this encounter Care Teams Geochemist Relationship Specialty Start Date End Date Dwayne Johnson: [phone] [address] [place] [address] Referring Plastics Patternmaker 10/04/20 documented as of this encounter
--- OUTSIDE RECORDS SUMMARY | 2025-02-09 13:31 | XMS_ITS | Encounter Summary ---
Author Organization [facility] Address [address] [place] [address] Care Team Providers Care Inspector Cold Working Name Role Phone Dwayne Johnson Unavailable Source Comments In the event this information is protected by the Federal Confidentiality of Alcohol and Drug AbusePatient Records regulations: The Federal rules restrict any use of the information to criminally investigate or prosecute any alcohol or drug abuse patient.[facility] Encounter Details Date Type Department Care Team (Late st Contact Info) Description 04/01/2024 Patient Update Reproductive Endocrinology Infertility [address] [place] [address] Malu Zhang, LAUREN Social History Tobacco Use [...] risk 7 08/19/2023 Data from: https://www.neighborhoodatlas.medicine.[facility].edu/. Last address used for calculation [address] [...] EDT [facility] Reproductive Endocrinology Infertility [address] [place] [address] Santa No MD [address] [place], [place] [phone] infertility documented as of this encounter Results * HCG QUANTITATIVE (04/04/2024 8:03 AM EDT) hCG Quantitative, Blood <0.6 <5.0 mIU/mL 04/04/2024 3:05 PM EDT [facility] Comment:Negative Blood BLOOD SPECIMEN / Unknown Venipuncture / Unknown 04/04/2024 8:03 AM EDT 04/04/2024 8:03 AM EDT us Kerry Weiner PA-C LABORATORY Final Result [facility] [address] [facility] [address] documented in this encounter Visit Diagnoses Diagnosis Encounter for fertility testing- Primary Fertility testing documented in this encounter Care Teams Inspector Cold Working Relationship Specialty Start Date End Date Dwayne Johnson [address] [place] [address] Referring Customs Agent 10/04/20 documented as of this encounter
--- OUTSIDE RECORDS SUMMARY | 2025-02-09 13:31 | XMS_ITS | Encounter Summary ---
Author Organization [facility] Address [id number] [address] [place] [address] Care Team Providers Care Instructor Extension Work Name Role Phone Jesus Berumen MD Primary Care Provider [phone] Encounter Details Date Type Department Care Team (Late st Contact Info) Description 10/03/2022 Orders Only [facility] [address] [place] [phone] Alysha Pickens LPN Right foot pain Social [...] EST Office Visit [facility] [address] [place] [phone] Jesus Berumen MD [address] [place] [phone] documented as of this encounter Procedures Procedure [...] documented as of this encounter Care Teams Instructor Extension Work Relationship Specialty Start Date End Date Jesus Berumen MD [address] [place] [address] PCP - General Internal Medicine 01/24/25 documented as of this encounter
--- OUTSIDE RECORDS SUMMARY | 2025-02-09 13:31 | XMS_ITS | Encounter Summary ---
Author Organization [facility] Address [address] [place] [address] Care Team Providers Care Health Technician Hearing Name Role Phone Dwayne Johnson Unavailable Source [...] Description 01/11/2024 Patient Msg Reproductive Endocrinology Infertility [address] [place], [place] [phone] Provider, Ccf Plan Social History Tobacco Use [...] is lower risk 7 08/19/2023 Data from: https://www.neighborhoodatlas.medicine.[facility].edu/. Last address used for calculation [...] [facility] Reproductive Endocrinology Infertility [address] [place] [address] Santa No MD [address] [place] [place], [place] [phone] infertility documented as of this encounter Visit Diagnoses Not on filedocumented in this encounter Care Teams Health Technician Hearing Relationship Specialty Start Date End Date Dwayne Johnson [address] [place] [address] Referring Commissioner Of Conciliation 10/04/20 documented as of this encounter
--- OUTSIDE RECORDS SUMMARY | 2025-02-09 13:31 | XMS_ITS | Encounter Summary ---
Author Organization [facility] Address [address] [place] [address] Care Team Providers Care Photovoltaic Technician Name Role Phone Dwayne Johnson Unavailable Source Comments In the event this information is protected by the Federal Confidentiality of Alcohol and Drug AbusePatient Records regulations: The Federal rules restrict any use of the information to criminally investigate or prosecute any alcohol or drug abuse patient.[facility] Encounter Details Date Type Department Care Team (Late st Contact Info) Description 11/24/2024 Patient Msg Reproductive Endocrinology Infertility [address] [place], [place] [phone] Provider, Ccf plan for 11/24/24 Social History [...] is lower risk 7 08/19/2023 Data from: https://www.neighborhoodatlas.medicine.[facility].edu/. Last address [...] Description 03/23/2025 10:00 AM EDT [facility] Reproductive Endocrinology Infertility [address] [place] [address] Santa No MD [address] [place], [place] [phone] infertility documented as of this encounter Visit Diagnoses Not on filedocumented in this encounter Care Teams Photovoltaic Technician Relationship Specialty Start Date End Date Dwayne Johnson: [phone] [address] [place] [address] Referring Brand Sales Consultant 10/04/20 documented as of this encounter
--- OUTSIDE RECORDS SUMMARY | 2025-02-09 13:31 | XMS_ITS | Encounter Summary ---
Author Organization [facility] Address [address] [place] [address] Care Team Providers Care Hand Woodworking Sander Name Role Phone Dwayne Johnson Unavailable Source Comments In the event this information is protected by the Federal Confidentiality of Alcohol and Drug AbusePatient Records regulations: The Federal rules restrict any use of the information to criminally investigate or prosecute any alcohol or drug abuse patient.[facility] Encounter Details Date Type Department Care Team (Latest Contact Info) Description 04/07/2024 Patient Msg Reproductive Endocrinology Infertility [address] [place], [place] [phone] Provider, Ccf Plans for Midcycle Scan/IUI Social [...] lower risk 7 08/19/2023 Data from: https://www.neighborhoodatlas.medicine.[facility].edu/. Last address used for calculation [address] [...] Contact Info) Description 03/23/2025 10:00 AM EDT [facility] Reproductive Endocrinology Infertility [address] [place] [address] Santa No MD [address] [place] [address] infertility documented as of this encounter Visit Diagnoses Not on filedocumented in this encounter Care Teams Hand Woodworking Sander Relationship Specialty Start Date End Date Dwayne Johnson [address] [place] [address] Referring Evp Operations 10/04/20 documented as of this encounter
--- OUTSIDE RECORDS SUMMARY | 2025-02-09 13:31 | XMS_ITS | Encounter Summary ---
Author Organization [facility] Address [address] [place] [address] Care Team Providers Care Wire Frame Dipper Name Role Phone Dwayne Johnson Unavailable Source Comments In the event this information is protected by the Federal Confidentiality of Alcohol and Drug AbusePatient Records regulations: The Federal rules restrict any use of the information to criminally investigate or prosecute any alcohol or drug abuse patient.[facility] Encounter Details Date Type Department Care Team (Latest Contact Info) Description 02/10/2024 Patient Msg OB/Gynecology [address] [place] [address] Provider, Ccf making sure you saw results [...] is lower risk 7 08/19/2023 Data from: https://www.neighborhoodatlas.medicine.[facility].edu/. Last address used for calculation [address] [...] Contact Info) Description 03/23/2025 10:00 AM EDT [facility] Reproductive Endocrinology Infertility [address] [place] [address] Santa No MD [address] [place] [place], [place] [phone] infertility documented as of this encounter Visit Diagnoses Not on filedocumented in this encounter Care Teams Wire Frame Dipper Relationship Specialty Start Date End Date Dwayne Johnson [address] [place] [address] Referring Christmas Tree Farm Worker 10/04/20 documented as of this encounter
--- OUTSIDE RECORDS SUMMARY | 2025-02-09 13:31 | XMS_ITS | Encounter Summary ---
Author Organization [facility] Address [address] [place] [address] Care Team Providers Care Sterile Instrument Technician Name Role Phone Dwayne Johnson Unavailable Source Comments In the event this information is protected by the Federal Confidentiality of Alcohol and Drug AbusePatient Records regulations: The Federal rules restrict any use of the information to criminally investigate or prosecute any alcohol or drug abuse patient.[facility] Encounter Details Date Type Department Care Team (Late st Contact Info) Description 11/21/2024 Patient Msg Reproductive Endocrinology Infertility [address] [place], [place] [phone] Provider, Ccf plan for 11/21/24 Social History [...] is lower risk 7 08/19/2023 Data from: https://www.neighborhoodatlas.[facility].edu/. Last address used for calculation [address] [...] AM EDT [facility] Reproductive Endocrinology Infertility [address] [place] [address] Santa No MD [address] [place] [place], [place] [phone] infertility documented as of this encounter Visit Diagnoses Not on filedocumented in this encounter Care Teams Sterile Instrument Technician Relationship Specialty Start Date End Date Dwayne Johnson: [phone] [address] [place] [address] Referring Livestock Judging Coach 10/04/20 documented as of this encounter
--- OUTSIDE RECORDS SUMMARY | 2025-02-09 13:31 | XMS_ITS | Encounter Summary ---
Author Organization [facility] Address [address] [place] [address] Care Team Providers Care External Grinder Tool Name Role Phone Dwayne Johnson Unavailable Source Comments In the event this information is protected by the Federal Confidentiality of Alcohol and Drug AbusePatient Records regulations: The Federal rules restrict any use of the information to criminally investigate or prosecute any alcohol or drug abuse patient.[facility] Encounter Details Date Type Department Care Team (Late st Contact Info) Description 04/07/2024 Patient Update Reproductive Endocrinology Infertility [address] [place] [address] Malu Zhang, LAUREN Social History Tobacco Use [...] is lower risk 7 08/19/2023 Data from: https://www.neighborhoodatlas.medicine.[facility].edu/. Last address used for calculation [address] [...] Contact Info) Description 03/23/2025 10:00 AM EDT [facility] Reproductive Endocrinology Infertility [address] [place] [address] Santa No MD [address] [facility] [place] [address] infertility documented as of this encounter Results * LUTEINIZING HORMONE (04/15/2024 7:27 AM EDT) LH 10.9 See comment mIU/mL 04/15/2024 10:34 AM EDT [facility] Comment: Reference range: Follicular: 2.4-12.6 mIU/mL Midcycle: 14.0-95.6 mIU/mL Luteal: 1.0-11.4 mIU/mL Post Sylwia: 7.7-58.5 mIU/mL Blood BLOOD SPECIMEN / Unknown Venipuncture / Unknown 04/15/2024 7:27 AM EDT 04/15/2024 10:05 AM EDT Sushila Vee APRN.[facility] Final R esult [facility] [address] [facility] [place] [address], [place] * PROGESTERONE (04/15/2024 7:27 AM EDT) Progesterone <0.2 See comment ng/mL 04/15/2024 10:34 AM EDT [facility] Comment: Menstrual Cycle Progesterone Reference Ranges: Follicular: <1.0 ng/mL Ovulation: <12.1 ng/mL Luteal: 1.8 to 23.9 ng/mL. Progesterone Reference Ranges vary by gestational period: First Trimester: 11.0 to 44.3 ng/mL Second Trimester: 25.4 to 83.3 ng/mL Third Trimester: 58.7 to 214 ng/mL Post menopausal Progesterone: <0.5 ng/mL Reference: 1. Progesterone (Progesterone III) [package insert V 1.0 Croatian]. [facility], [place], [place]. June 2015. Blood BLOOD SPECIMEN / Unknown Venipuncture / Unknown 04/15/2024 7:27 AM EDT 04/15/2024 10:05 AM EDT Sushila Vee APRN.[facility] Final R esult [facility] [address] [facility] [place] [address], [place] * (ABNORMAL) ESTRADIOL-17B BLD (04/15/2024 7:27 AM EDT) Estradiol 17B 38(H) 8 - 37 pg/mL 04/15/2024 9:22 AM EDT [facility] Comment: This test is not [...] 3243 pg/mL Second trimester : 1561 to 71499 pg/mL Third trimester : 8285 to >41236 pg/mL Post-menopausal Estradiol reference range: < 41 pg/mL Reference: 1. Estradiol - E2 (Estradiol III) [package insert V 3.0 Croatian]. [facility], [place], [place], February 2016. Blood BLOOD SPECIMEN / Unknown Venipuncture / Unknown 04/15/2024 7:27 AM EDT 04/15/2024 7:27 AM EDT us Sushila Vee WATER QUALITY MANAGER.[facility] Final R esult [facility] [address] [facility] [place] [place] [address], documented in this encounter Visit Diagnoses Diagnosis Encounter for fertility testing- Primary Fertility testing documented in this encounter Care Teams External Grinder Tool Relationship Specialty Start Date End Date Dwayne Johnson: [phone] [address] [place] [address] Referring Tensile Tester 10/04/20 documented as of this encounter
--- OUTSIDE RECORDS SUMMARY | 2025-02-09 13:31 | XMS_ITS | Encounter Summary ---
Author Organization [facility] Address [address] [place] [address] Care Team Providers Care Chief Estimator Name Role Phone Dwayne Johnson Unavailable Source Comments In the event this information is protected by the Federal Confidentiality of Alcohol and Drug AbusePatient Records regulations: The Federal rules restrict any use of the information to criminally investigate or prosecute any alcohol or drug abuse patient.[facility] Encounter Details Date Type Department Care Team (Latest Contact Info) Description 05/18/2023 Patient Msg Reproductive Endocrinology Infertility [address] [place], [place] [phone] Provider, Ccf Super Ovulation Plan 05/18/23 Social [...] is lower risk 7 02/18/2023 Data from: https://www.neighborhoodatlas.medicine.[facility].edu/. Last address used for calculation [address] [...] Description 03/23/2025 10:00 AM EDT [facility] Reproductive Endocrinology Infertility [address] [place] [address] Santa No MD [address] [place] [address] infertility documented as of this encounter Visit Diagnoses Not on filedocumented in this encounter Care Teams Chief Estimator Relationship Specialty Start Date End Date Dwayne Johnson [address] [place] [address] Referring [place] Cutting Machine Operator 10/04/20 documented as of this encounter
--- OUTSIDE RECORDS SUMMARY | 2025-02-09 13:31 | XMS_ITS | Encounter Summary ---
Author Organization [facility] Address [address] [place] [address] Care Team Providers Care Technical Editor Name Role Phone Dwayne Johnson Unavailable Source [...] Description 01/08/2024 Patient Msg Reproductive Endocrinology Infertility [address] [place] [address] Provider, Ccf Super Ov Plan 01/08/24 Social [...] [facility] Reproductive Endocrinology Infertility [address] [place] [address] Santa No MD [address] [place], [place] [phone] infertility documented as of this encounter Visit Diagnoses Not on filedocumented in this encounter Care Teams Technical Editor Relationship Specialty Start Date End Date Dwayne Johnson: [phone] [address] [place] [address] Referring Hand Almond Blancher 10/04/20 documented as of this encounter
--- OUTSIDE RECORDS SUMMARY | 2025-02-09 13:31 | XMS_ITS | Encounter Summary ---
Author Organization [facility] Address [address] [place] [address] Care Team Providers Care Decorator Lighting Fixtures Name Role Phone Dwayne Johnson Unavailable Source Comments In the event this information is protected by the Federal Confidentiality of Alcohol and Drug AbusePatient Records regulations: The Federal rules restrict any use of the information to criminally investigate or prosecute any alcohol or drug abuse patient.[facility] Encounter Details Date Type Department Care Team (Late st Contact Info) Description 05/25/2023 Patient Msg Reproductive Endocrinology Infertility [address] [place], [place] [phone] Provider, Ccf plan for 05/25/23 Social History [...] Contact Info) Description 03/23/2025 10:00 AM EDT [facility] Reproductive Endocrinology Infertility [address] [place] [address] Santa No MD [address] [place] [address] infertility documented as of this encounter Visit Diagnoses Not on filedocumented in this encounter Care Teams Decorator Lighting Fixtures Relationship Specialty Start Date End Date Dwayne Johnson [address] [place] [address] Referring Locomotive Observer 10/04/20 documented as of this encounter
--- OUTSIDE RECORDS SUMMARY | 2025-02-09 13:31 | XMS_ITS | Encounter Summary ---
Author Organization [facility] Address [address] [place] [address] Care Team Providers Care Human Resources Compensation Analyst Name Role Phone Dwayne Johnson Unavailable Source [...] Description 05/28/2023 Patient Msg Reproductive Endocrinology Infertility [address] [place] [address] Provider, Ccf Re: Dexamethasone Social History Tobacco [...] is lower risk 7 02/18/2023 Data from: https://www.neighborhoodatlas.medicine.[facility].edu/. Last address used for calculation [address] [...] Contact Info) Description 03/23/2025 10:00 AM EDT [facility] Reproductive Endocrinology Infertility [address] [place] [address] Santa No MD [address] [place] [place], [place] [phone] infertility documented as of this encounter Visit Diagnoses Not on filedocumented in this encounter Care Teams Human Resources Compensation Analyst Relationship Specialty Start Date End Date Dwayne Johnson [address] [place] [address] Referring Feather Drying Machine Operator 10/04/20 documented as of this encounter
--- OUTSIDE RECORDS SUMMARY | 2025-02-09 13:31 | XMS_ITS | Encounter Summary ---
Author Organization [facility] Address [address] [place] [address] Care Team Providers Care Operations Coordinator Name Role Phone Dwayne Johnson Unavailable Source Comments In the event this information is protected by the Federal Confidentiality of Alcohol and Drug AbusePatient Records regulations: The Federal rules restrict any use of the information to criminally investigate or prosecute any alcohol or drug abuse patient.[facility] Encounter Details Date Type Department Care Team (Late st Contact Info) Description 06/17/2023 Patient Msg Reproductive Endocrinology Infertility [address] [place] [address] Provider, Ccf plans for 06/17/23 Social History [...] is lower risk 7 02/18/2023 Data from: https://www.neighborhoodatlas.medicine.[facility].edu/. Last address [...] [facility] Reproductive Endocrinology Infertility [address] [place] [address] Santa No MD [address] [place] [address] infertility documented as of this encounter Visit Diagnoses Not on filedocumented in this encounter Care Teams Operations Coordinator Relationship Specialty Start Date End Date Dwayne Johnson [address] [place] [address] Referring Transportation Engineering Technician 10/04/20 documented as of this encounter
--- OUTSIDE RECORDS SUMMARY | 2025-02-09 13:32 | XMS_ITS | Encounter Summary ---
Author Organization [facility] Address [address] [place] [address] Care Team Providers Care Cereal Miller Name Role Phone Dwayne Johnson Unavailable Source [...] Description 06/24/2023 Patient Msg Reproductive Endocrinology Infertility [address] [place], [place] [phone] Provider, Ccf Super Ov Plan Social History [...] lower risk 7 02/18/2023 Data from: https://www.neighborhoodatlas.medicine.[facility].edu/. Last address used for calculation [...] Contact Info) Description 03/23/2025 10:00 AM EDT [facility] Reproductive Endocrinology Infertility [address] [place] [address] Santa No MD [address] [place] [place], [place] [phone] infertility documented as of this encounter Visit Diagnoses Not on filedocumented in this encounter Care Teams Cereal Miller Relationship Specialty Start Date End Date Dwayne Johnson [address] [place] [address] Referring Patient Account Representative 10/04/20 documented as of this encounter
--- OUTSIDE RECORDS SUMMARY | 2025-02-09 13:32 | XMS_ITS | Encounter Summary ---
Author Organization [facility] Address [address] [place] [address] Care Team Providers Care Lead Teller Name Role Phone Dwayne Johnson Unavailable Source Comments In the event this information is protected by the Federal Confidentiality of Alcohol and Drug AbusePatient Records regulations: The Federal rules restrict any use of the information to criminally investigate or prosecute any alcohol or drug abuse patient.[facility] Encounter Details Date Type Department Care Team (Late st Contact Info) Description 09/15/2023 Patient Msg Reproductive Endocrinology Infertility [address] [place] [address] Sushila Vee APRN.MAINFRAME SOFTWARE DEVELOPER [address] [place] [place] [address] Next steps Social History Tobacco Use Types [...] risk 7 08/19/2023 Data from: https://www.neighborhoodatlas.medicine.[facility].edu/. Last address used for calculation [address] 08/19/2023 Comments No Sex and Gender [...] Contact Info) Description 03/23/2025 10:00 AM EDT [facility] Reproductive Endocrinology Infertility [address] [place] [address] Santa No MD [address] [place], [place] [phone] infertility documented as of this encounter Visit Diagnoses Not on filedocumented in this encounter Care Teams Lead Teller Relationship Specialty Start Date End Date Dwayne Johnson [address] [place] [address] Referring Molded Goods Inspector Trimmer 10/04/20 documented as of this encounter
--- OUTSIDE RECORDS SUMMARY | 2025-02-09 13:32 | XMS_ITS | Encounter Summary ---
Author Organization [facility] Address [address] [place] [address] Care Team Providers Care Insurance Service Representative Name Role Phone Dwayne Johnson Unavailable Source Comments In the event this information is protected by the Federal Confidentiality of Alcohol and Drug AbusePatient Records regulations: The Federal rules restrict any use of the information to criminally investigate or prosecute any alcohol or drug abuse patient.[facility] Reason for Referral * Diagnostic Procedure Only (Routine) - Closed Specialty Diagnoses / Procedures Referred By Contac t Referred To Contact [facility] Diagnoses Primary female infertility Procedures FOLLICULAR US I US PELVIC NONOBSTETRIC IMAGE DCMTN LIMITED/F/[place] [address] [place] [address] Phone: tel: fax: [address] [address] Referral ID Status Reason Start Date Expiration Date V isits Requested Visits Authorized [id number] Closed Auto-Generate d Referral 05/26/2024 05/24/2025 5 1 Reason for Visit * Reason Comments rigid hyster Encounter Details Date Type Department Care Team (Late st Contact Info) Description 05/23/2024 Telephone Reproductive Endocrinology Infertility [address] [place] [address] [place] [address] [place] [address] rigid hyster Social History Tobacco Use Types [...] is lower risk 7 08/19/2023 Data from: https://www.neighborhoodatlas.medicine.[facility].edu/. Last address used for calculation [address] 08/19/2023 Comments No Sex and Gender [...] Patient to be scheduled Sunday 05/27 in [place] @ 7am Patient to order FSH X2 and she has trigger at home. Unresolved SO #6 Location: [place] Visit type: SO monitoring us/e2 Date: 05/27 [...] Info) Description 03/23/2025 10:00 AM EDT [facility] Reproductive Endocrinology Infertility [address] [place] [address] Santa No MD [address] [place] [address] infertility documented as of this encounter Results [...] Lina Gilliam M.D. us Augusto Tracy MD [facility] Final Result * FOLLICULAR US [facility] (06/13/2024 8:26 AM EDT) Anatomical Region [...] By: Odalis Parikh M.D. Augusto Tracy MD [facility] Final Result * (ABNORMAL) ESTRADIOL-17B BLD (06/13/2024 7:58 AM EDT) Estradiol 17B 259(H) 8 - 37 pg/mL 06/13/2024 8:39 AM EDT [facility] Comment: This test is not [...] 3243 pg/mL Second trimester : 1561 to 71328 pg/mL Third trimester : 8285 to >39380 pg/mL Post-menopausal Estradiol reference range: < 41 pg/mL Reference: 1. Estradiol - E2 (Estradiol III) [package insert V 3.0 Cymraes]. [facility], [place], [place], February 2016. Blood BLOOD SPECIMEN / Unknown Venipuncture / Unknown 06/13/2024 7:58 AM EDT 06/13/2024 7:58 AM EDT Augusto Tracy MD LABORATORY Final Result [facility] [address] [facility] [place] [address], * (ABNORMAL) ESTRADIOL-17B BLD (06/10/2024 7:27 AM [...] 3243 pg/mL Second trimester : 1561 to 618[address] pg/mL Third trimester : 8285 to >67321 pg/mL Post-menopausal Estradiol reference range: < 41 pg/mL Reference: 1. Estradiol - E2 (Estradiol III) [package insert V 3.0 Cymraes]. [facility], [place], [place], February 2016. Blood BLOOD SPECIMEN / Unknown Venipuncture / Unknown 06/10/2024 7:27 AM EDT 06/10/2024 7:27 AM EDT us Augusto Tracy MD LABORATORY Final Result [facility] [address] [facility] [place] [address], [place] * FOLLICULAR US [facility] (06/10/2024 6:56 [...] By: Odalis Parikh M.D. Augusto Tracy MD [facility] Final Result * (ABNORMAL) ESTRADIOL-17B BLD (06/06/2024 7:22 AM EDT) Estradiol 17B 79(H) 8 - 37 pg/mL 06/06/2024 8:26 AM EDT [facility] Comment: This test is not [...] 3243 pg/mL Second trimester : 1561 to 48186 pg/mL Third trimester : 8285 to >00034 pg/mL Post-menopausal Estradiol reference range: < 41 pg/mL Reference: 1. Estradiol - E2 (Estradiol III) [package insert V 3.0 Cymraes]. [facility], [place], [place], February 2016. Blood BLOOD SPECIMEN / Unknown Venipuncture / Unknown 06/06/2024 7:22 AM EDT 06/06/2024 7:22 AM EDT Augusto Tracy MD LABORATORY Final Result Performing Organization Address [facility] de Phone Number [facility] [address] [facility] [place] [address], [place] * (ABNORMAL) ESTRADIOL-17B BLD (06/03/2024 6:49 AM EDT) [facility] Signature Estradiol 17B 86(H) 8 - 37 pg/mL 06/03/2024 7:36 AM EDT [facility] Comment: This test is not [...] 3243 pg/mL Second trimester : 1561 to 41095 pg/mL Third trimester : 8285 to >37951 pg/mL Post-menopausal Estradiol reference range: < 41 pg/mL Reference: 1. Estradiol - E2 (Estradiol III) [package insert V 3.0 Cymraes]. [facility], [place], [place], February 2016. Blood BLOOD SPECIMEN / Unknown Venipuncture / Unknown 06/03/2024 6:49 AM EDT 06/03/2024 6:49 AM EDT Augusto Tracy MD LABORATORY Final Result Performing Organization Address [facility] de Phone Number [facility] [address] [facility] [place] [address], [place] * FOLLICULAR US WHI (06/03/2024 6:46 [...] By: Augusto Tracy M.D. Augusto Tracy MD [facility] Final Result * TYPE + SCREEN (05/27/2024 6:44 AM EDT) ABO O 05/27/2024 11:54 AM EDT [facility] Rh(D) Positive 05/27/2024 11:54 AM EDT [facility] Antibody Screen Negative 05/27/2024 11:54 AM EDT [facility] Type and Screen Expiration 05/30/2024 23:59 05/27/2024 11:54 AM EDT [facility] HIstorical Ab Scr Status NEGATIVE 05/27/2024 11:54 AM EDT [facility] Blood BLOOD SPECIMEN / Unknown Venipuncture / Unknown 05/27/2024 6:44 AM EDT 05/27/2024 6:44 AM EDT Augusto Tracy MD BLOOD BANK Final Result [facility] [address] [place] [address], * ESTRADIOL-17B BLD (05/27/2024 6:44 AM EDT) Estradiol 17B 35 8 - 37 pg/mL 05/27/2024 8:27 AM EDT [facility] Comment: This test is not [...] 3243 pg/mL Second trimester : 1561 to 03470 pg/mL Third trimester : 8285 to >02845 pg/mL Post-menopausal Estradiol reference range: < 41 pg/mL Reference: 1. Estradiol - E2 (Estradiol III) [package insert V 3.0 Cymraes]. [facility], [place], [place], February 2016. Blood BLOOD SPECIMEN / Unknown Venipuncture / Unknown 05/27/2024 6:44 AM EDT 05/27/2024 6:44 AM EDT us Augusto Tracy MD LABORATORY Final Result [facility] [address] [facility] [place] [address], documented in this encounter Visit Diagnoses Diagnosis Primary female infertility- Primary Female infertility of unspecified origin Primary female infertility Female infertility of unspecified origin Primary female infertility Female infertility of unspecified origin Primary female infertility Female infertility of unspecified origin Primary female infertility Female infertility of unspecified origin Primary female infertility Female infertility of unspecified origin documented in this encounter Care Teams Insurance Service Representative Relationship Specialty Start Date End Date Dwayne Johnson [address] [place] [address] Referring Still Operator Batch Or Continuous 10/04/20 documented as of this encounter
--- OUTSIDE RECORDS SUMMARY | 2025-02-09 13:32 | XMS_ITS | Encounter Summary ---
Author Organization [facility] Address [address] [place] [address] Care Team Providers Care Mink Slicer Name Role Phone Dwayne Johnson Unavailable Source Comments In the event this information is protected by the Federal Confidentiality of Alcohol and Drug AbusePatient Records regulations: The Federal rules restrict any use of the information to criminally investigate or prosecute any alcohol or drug abuse patient.[facility] Encounter Details Date Type Department Care Team (Late st Contact Info) Description 04/08/2024 Get Medical Advice Reproductive Endocrinology Infertility [address] [address] [place] [address] [place] [address] Test results Social History Tobacco [...] is lower risk 7 08/19/2023 Data from: https://www.neighborhoodatlas.medicine.[facility].edu/. Last address used for calculation [address] [...] EDT [facility] Reproductive Endocrinology Infertility [address] [place] [address] Santa No MD [address] [place] [place], [place] [phone] infertility documented as of this encounter Visit Diagnoses Not on filedocumented in this encounter Care Teams Mink Slicer Relationship Specialty Start Date End Date Dwayne Johnson [address] [place] [address] Referring Plant Care Worker 10/04/20 documented as of this encounter
--- OUTSIDE RECORDS SUMMARY | 2025-02-09 13:32 | XMS_ITS | Encounter Summary ---
Author Organization [facility] Address [address] [place] [address] Care Team Providers Care Archery Equipment Hay Sorter Name Role Phone Dwayne Johnson Unavailable Source Comments In the event this information is protected by the Federal Confidentiality of Alcohol and Drug AbusePatient Records regulations: The Federal rules restrict any use of the information to criminally investigate or prosecute any alcohol or drug abuse patient.[facility] Encounter Details Date Type Department Care Team (Latest Contact Info) Description 08/19/2023 Patient Msg Reproductive Endocrinology Infertility [address] [place] [address] Provider, Ccf Super Ov Plan 08/19/23 Social [...] is lower risk 7 08/19/2023 Data from: https://www.neighborhoodatlas.medicine.[facility].edu/. Last address used for calculation [...] Contact Info) Description 03/23/2025 10:00 AM EDT [facility] Reproductive Endocrinology Infertility [address] [place] [address] Santa No MD [address] [place] [address] infertility documented as of this encounter Visit Diagnoses Not on filedocumented in this encounter Care Teams Archery Equipment Hay Sorter Relationship Specialty Start Date End Date Dwayne Johnson [address] [place] [address] Referring Teacher'S Aide 10/04/20 documented as of this encounter
--- OUTSIDE RECORDS SUMMARY | 2025-02-09 13:32 | XMS_ITS | Encounter Summary ---
Author Organization [facility] Address [address] [place] [address] Care Team Providers Care Hydrometeorologist Name Role Phone Dwayne Johnson Unavailable Source Comments In the event this information is protected by the Federal Confidentiality of Alcohol and Drug AbusePatient Records regulations: The Federal rules restrict any use of the information to criminally investigate or prosecute any alcohol or drug abuse patient.[facility] Encounter Details Date Type Department Care Team (Late st Contact Info) Description 07/31/2023 Patient Msg Allergy [address] [place] [phone] Provider, Ccf allergy appointment Social History Tobacco [...] risk 7 02/18/2023 Data from: https://www.neighborhoodatlas.medicine.[facility].edu/. Last address used for calculation [address] [...] [facility] Reproductive Endocrinology Infertility [address] [place] [address] Santa No MD [address] [place], [place] [phone] infertility documented as of this encounter Visit Diagnoses Not on filedocumented in this encounter Care Teams Hydrometeorologist Relationship Specialty Start Date End Date Dwayne Johnson [address] [place] [address] Referring Psychology Professor 10/04/20 documented as of this encounter
--- OUTSIDE RECORDS SUMMARY | 2025-02-09 13:32 | XMS_ITS | Encounter Summary ---
Author Organization [facility] Address [address] [place] [address] Care Team Providers Care Radiology Nurse Name Role Phone Dwayne Johnson Unavailable Source Comments In the event this information is protected by the Federal Confidentiality of Alcohol and Drug AbusePatient Records regulations: The Federal rules restrict any use of the information to criminally investigate or prosecute any alcohol or drug abuse patient.[facility] Encounter Details Date Type Department Care Team (Late st Contact Info) Description 10/27/2022 Patient Msg Reproductive Endocrinology Infertility [address] [place] [address] Kerry Weiner PA-C [address] [place] [address] Following up Social History Tobacco [...] N ot on file 09/29/2022 Data from: https://www.neighborhoodatlas.medicine.[facility].edu/. Last address used for calculation [address] 09/29/2022 Comments No Sex and Gender [...] Info) Description 03/23/2025 10:00 AM EDT [facility] Reproductive Endocrinology Infertility [address] [place] [address] Santa No MD [address] [place], [place] [phone] infertility documented as of this encounter Visit Diagnoses Not on filedocumented in this encounter Care Teams Radiology Nurse Relationship Specialty Start Date End Date Dwayne Johnson [address] [place] [address] Referring Instructor Trainer Canine Service 10/04/20 documented as of this encounter
--- OUTSIDE RECORDS SUMMARY | 2025-02-09 13:32 | XMS_ITS | Encounter Summary ---
Author Organization [facility] Address [address] [place] [address] Care Team Providers Care Java Programming Professor Name Role Phone Jax Champagne Edward Primary Care Provider [phone] Pcp, Karla SUPPLIES PACKER Primary Care Provider Dwayne Liu Source Comments In the event this information is protected by the Federal Confidentiality of Alcohol and Drug AbusePatient Records regulations: The Federal rules restrict any use of the information to criminally investigate or prosecute any alcohol or drug abuse patient.[facility] Encounter Details Date Type Department Care Team (Late st Contact Info) Description 04/05/2021 Patient Msg Reproductive Endocrinology Infertility [address] [place], [place] [phone] Provider, Ccf medication Social History Tobacco Use [...] N ot on file 10/15/2020 Data from: https://www.neighborhoodatlas.medicine.[facility]/. Last address used for calculation [...] Contact Info) Description 03/23/2025 10:00 AM EDT [facility] Reproductive Endocrinology Infertility [address] [place] [address] Santa No MD [address] [place] [address] infertility documented as of this encounter Visit Diagnoses Not on filedocumented in this encounter Care Teams Java Programming Professor Relationship Specialty Start Date End Date Jax Champagne PCP - General 03/21/09 03/28/22 PcpKarla APRN PCP - General 03/29/22 10/14/22 Dwayne Johnson [address] [place] [address] Referring Scale Shooter 10/04/20 documented as of this encounter
--- OUTSIDE RECORDS SUMMARY | 2025-02-09 13:32 | XMS_ITS | Encounter Summary ---
Author Organization [facility] Address [address] [place] [address] Care Team Providers Care Menu Planner Name Role Phone Dwayne Johnson Unavailable Source Comments In the event this information is protected by the Federal Confidentiality of Alcohol and Drug AbusePatient Records regulations: The Federal rules restrict any use of the information to criminally investigate or prosecute any alcohol or drug abuse patient.[facility] Reason for Visit * Reason Comments pregnyl refill Encounter Details Date Type Department Care Team (Late st Contact Info) Description 07/13/2024 Telephone Reproductive Endocrinology Infertility [address] [place] [phone] [place] [address] [place] [address] pregnyl refill Social History Tobacco Use Types [...] 7 08/19/2023 Data from: https://www.neighborhoodatlas.medicine.[facility].edu/. Last address used for calculation [address] [...] Description 03/23/2025 10:00 AM EDT [facility] Reproductive Endocrinology Infertility [address] [place] [address] Santa No MD [address] [place] [address] infertility documented as of this encounter Visit Diagnoses Not on filedocumented in this encounter Care Teams Menu Planner Relationship Specialty Start Date End Date Dwayne Johnson [address] [place] [address] Referring Vacuum Caster 10/04/20 documented as of this encounter
--- OUTSIDE RECORDS SUMMARY | 2025-02-09 13:32 | XMS_ITS | Encounter Summary ---
Author Organization [facility] Address [address] [place] [address] Care Team Providers Care Local Company Flatbed Truck Driver Name Role Phone Jax Champagne Primary Care Provider [phone] Pcp, No GAS MAKER HELPER Primary Care Provider Dwayne Liu Unavailable Source Comments In the event this information is protected by the Federal Confidentiality of Alcohol and Drug AbusePatient Records regulations: The Federal rules restrict any use of the information to criminally investigate or prosecute any alcohol or drug abuse patient.[facility] Encounter Details Date Type Department Care Team (Latest Contact Info) Description 03/21/2021 Get Medical Advice Reproductive Endocrinology Infertility [address] [phone] Dmitry Oh MD [address] [place], [place] [address] RE: Visit Follow Up Question Social History [...] on file 10/15/2020 Data from: https://www.neighborhoodatlas.medicine.[facility]/. Last address used for calculation [...] [facility] Reproductive Endocrinology Infertility [address] [place] [address] Santa No MD [address] [place] [address] infertility documented as of this encounter Visit Diagnoses Not on filedocumented in this encounter Care Teams Local Company Flatbed Truck Driver Relationship Specialty Start Date End Date Jax Champagne PCP - General 03/21/09 03/28/22 Karla Hendrickson APRN PCP - General 03/29/22 10/14/22 Dwayne Johnson [address] [place] [address] Referring Supervisor Open Hearth Stockyard 10/04/20 documented as of this encounter
--- OUTSIDE RECORDS SUMMARY | 2025-02-09 13:32 | XMS_ITS | Encounter Summary ---
Author Organization [facility] Address [address] [place] [address] Care Team Providers Care Mgmt Specialist Name Role Phone Dwayne Johnson Unavailable Source Comments In the event this information is protected by the Federal Confidentiality of Alcohol and Drug AbusePatient Records regulations: The Federal rules restrict any use of the information to criminally investigate or prosecute any alcohol or drug abuse patient.[facility] Encounter Details Date Type Department Care Team (Latest Contact Info) Description 05/27/2024 Patient Msg Reproductive Endocrinology Infertility [address] [place] [address] Provider, Ccf Super Ov Plan 05/27/24 Social [...] Description 03/23/2025 10:00 AM EDT [facility] Reproductive Endocrinology Infertility [address] [place] [address] Santa No MD [address] [place] [place], [place] [phone] infertility documented as of this encounter Visit Diagnoses Not on filedocumented in this encounter Care Teams Mgmt Specialist Relationship Specialty Start Date End Date Dwayne Johnson: [phone] [address] [place] [address] Referring Global Account Executive 10/04/20 documented as of this encounter
--- OUTSIDE RECORDS SUMMARY | 2025-02-09 13:32 | XMS_ITS | Encounter Summary ---
Author Organization [facility] Address [address] [place] [address] Care Team Providers Care Production Supv Name Role Phone Dwayne Johnson Unavailable Source Comments In the event this information is protected by the Federal Confidentiality of Alcohol and Drug AbusePatient Records regulations: The Federal rules restrict any use of the information to criminally investigate or prosecute any alcohol or drug abuse patient.[facility] Encounter Details Date Type Department Care Team (Late st Contact Info) Description 06/17/2023 Patient Msg Reproductive Endocrinology Infertility [address] [place], [place] [phone] Provider, Ccf Letrozole Social History Tobacco Use [...] risk 7 02/18/2023 Data from: https://www.neighborhoodatlas.medicine.[facility].edu/. Last address used for calculation [address] [...] Info) Description 03/23/2025 10:00 AM EDT [facility] Reproductive Endocrinology Infertility [address] [place] [address] Santa No MD [address] [place], [place] [phone] infertility documented as of this encounter Visit Diagnoses Not on filedocumented in this encounter Care Teams Production Supv Relationship Specialty Start Date End Date Dwayne Johnson [address] [place] [address] Referring Brand Representative 10/04/20 documented as of this encounter
--- OUTSIDE RECORDS SUMMARY | 2025-02-09 13:32 | XMS_ITS | Encounter Summary ---
Author Organization [facility] Address [address] [place] [address] Care Team Providers Care Fmd Teacher Name Role Phone Dwayne Johnson Unavailable Source Comments In the event this information is protected by the Federal Confidentiality of Alcohol and Drug AbusePatient Records regulations: The Federal rules restrict any use of the information to criminally investigate or prosecute any alcohol or drug abuse patient.[facility] Encounter Details Date Type Department Care Team (Late st Contact Info) Description 04/13/2024 Patient Msg Reproductive Endocrinology Infertility [address] [place] [address] Provider, Ccf RE: Lab Results Social History [...] risk 7 08/19/2023 Data from: https://www.neighborhoodatlas.medicine.[facility].edu/. Last address used for calculation [address] [...] Info) Description 03/23/2025 10:00 AM EDT [facility] Reproductive Endocrinology Infertility [address] [place] [address] Santa No MD [address] [place], [place] [phone] infertility documented as of this encounter Visit Diagnoses Not on filedocumented in this encounter Care Teams Fmd Teacher Relationship Specialty Start Date End Date Dwayne Johnson [address] [place] [address] Referring Park Interpreter 10/04/20 documented as of this encounter
--- OUTSIDE RECORDS SUMMARY | 2025-02-09 13:32 | XMS_ITS | Encounter Summary ---
Author Organization [facility] Address [address] [place] [address] Care Team Providers Care Security Controls Assessor Name Role Phone Dwayne Johnson Unavailable Source Comments In the event this information is protected by the Federal Confidentiality of Alcohol and Drug AbusePatient Records regulations: The Federal rules restrict any use of the information to criminally investigate or prosecute any alcohol or drug abuse patient.[facility] Encounter Details Date Type Department Care Team (Latest Contact Info) Description 06/15/2024 Patient Msg Reproductive Endocrinology Infertility [address] [place], [place] [phone] Provider, Ccf Super Ovulation Trigger Plan Social [...] is lower risk 7 08/19/2023 Data from: https://www.neighborhoodatlas.medicine.[facility].edu/. Last address used for calculation [address] [...] [facility] Reproductive Endocrinology Infertility [address] [place] [address] Santa No MD [address] [place], [place] [phone] infertility documented as of this encounter Visit Diagnoses Not on filedocumented in this encounter Care Teams Security Controls Assessor Relationship Specialty Start Date End Date Dwayne Johnson [address] [place] [address] Referring Folder Hand 10/04/20 documented as of this encounter
--- OUTSIDE RECORDS SUMMARY | 2025-02-09 13:32 | XMS_ITS | Encounter Summary ---
Author Organization [facility] Address [address] [place] [address] Care Team Providers Care Principal Consulting Engineer Name Role Phone Dwayne Johnson Unavailable [...] Description 06/10/2024 Patient Msg Reproductive Endocrinology Infertility [address] [place], [place] [phone] Provider, Ccf RE: Additional Medications Social History [...] risk 7 08/19/2023 Data from: https://www.neighborhoodatlas.medicine.[facility].edu/. Last address used for calculation [address] [...] EDT [facility] Reproductive Endocrinology Infertility [address] [place] [address] Santa No MD [address] [place] [place], [place] [phone] infertility documented as of this encounter Visit Diagnoses Not on filedocumented in this encounter Care Teams Principal Consulting Engineer Relationship Specialty Start Date End Date Dwayne Johnson [address] [place] [address] Referring Pushcart Peddler 10/04/20 documented as of this encounter
--- OUTSIDE RECORDS SUMMARY | 2025-02-09 13:32 | XMS_ITS | Encounter Summary ---
Author Organization [facility] Address [address] [place] [address] Care Team Providers Care Tinsel Machine Operator Name Role Phone Pcp, No SHEET FINISHER Primary Care Provider Dwayne Liu Unavailable Source Comments In the event this information is protected by the Federal Confidentiality of Alcohol and Drug AbusePatient Records regulations: The Federal rules restrict any use of the information to criminally investigate or prosecute any alcohol or drug abuse patient.[facility] Encounter Details Date Type Department Care Team (Late st Contact Info) Description 08/28/2022 Get Medical Advice Reproductive Endocrinology Infertility [address] [place] [phone] Dmitry Oh MD [address] [place] [address] Results Social History Tobacco Use [...] N ot on file 10/15/2020 Data from: https://www.neighborhoodatlas.[facility]/. Last address used for calculation Not [...] [facility] Reproductive Endocrinology Infertility [address] [place] [address] Santa No MD [address] [place] [address] infertility documented as of this encounter Visit Diagnoses Not on filedocumented in this encounter Care Teams Tinsel Machine Operator Relationship Specialty Start Date End Date PcpKarla APRN PCP - General 03/29/22 10/14/22 Dwayne Johnson [address] [place] [address] Referring Transliterator 10/04/20 documented as of this encounter
--- OUTSIDE RECORDS SUMMARY | 2025-02-09 13:32 | XMS_ITS | Encounter Summary ---
Author Organization [facility] Address [address] [place] [address] Care Team Providers Care Foreign Diplomat Name Role Phone Dwayne Johnson Unavailable Source Comments In the event this information is protected by the Federal Confidentiality of Alcohol and Drug AbusePatient Records regulations: The Federal rules restrict any use of the information to criminally investigate or prosecute any alcohol or drug abuse patient.[facility] Encounter Details Date Type Department Care Team (Latest Contact Info) Description 06/26/2023 Patient Msg Reproductive Endocrinology Infertility [address] [place], [place] [phone] Provider, Ccf Super Ovulation Plan Social History [...] is lower risk 7 02/18/2023 Data from: https://www.neighborhoodatlas.medicine.[facility].edu/. Last address used for calculation [address] [...] Contact Info) Description 03/23/2025 10:00 AM EDT [facility] Reproductive Endocrinology Infertility [address] [place] [address] Santa No MD [address] [place], [place] [phone] infertility documented as of this encounter Visit Diagnoses Not on filedocumented in this encounter Care Teams Foreign Diplomat Relationship Specialty Start Date End Date Dwayne Johnson [address] [place] [address] Referring Front Window Cashier 10/04/20 documented as of this encounter
--- OUTSIDE RECORDS SUMMARY | 2025-02-09 13:32 | XMS_ITS | Encounter Summary ---
Author Organization [facility] Address [address] [place] [address] Care Team Providers Care Traffic Maintenance Supervisor Name Role Phone Dwayne Johnson Unavailable [...] Description 06/10/2024 Patient Msg Reproductive Endocrinology Infertility [address] [place] [address] Provider, Ccf Super Ov Plan 06/10/24 Social [...] is lower risk 7 08/19/2023 Data from: https://www.neighborhoodatlas.medicine.[facility].edu/. Last address used for calculation [...] Description 03/23/2025 10:00 AM EDT [facility] Reproductive Endocrinology Infertility [address] [place] [address] Santa No MD [address] [place] [place], [place] [phone] infertility documented as of this encounter Visit Diagnoses Not on filedocumented in this encounter Care Teams Traffic Maintenance Supervisor Relationship Specialty Start Date End Date Dwayne Johnson: [phone] [address] [place] [address] Referring Canvas Goods Maker 10/04/20 documented as of this encounter
--- OUTSIDE RECORDS SUMMARY | 2025-02-09 13:32 | XMS_ITS | Encounter Summary ---
Author Organization [facility] Address [address] [place] [address] Care Team Providers Care Summer Camp Counselor Name Role Phone Dwayne Johnson Unavailable Source Comments In the event this information is protected by the Federal Confidentiality of Alcohol and Drug AbusePatient Records regulations: The Federal rules restrict any use of the information to criminally investigate or prosecute any alcohol or drug abuse patient.[facility] Encounter Details Date Type Department Care Team (Late st Contact Info) Description 04/15/2024 Patient Msg Reproductive Endocrinology Infertility [address] [place] [address] Provider, Ccf Plan 04/15/24 Social History Tobacco [...] risk 7 08/19/2023 Data from: https://www.neighborhoodatlas.medicine.[facility].edu/. Last address used for calculation [address] [...] Description 03/23/2025 10:00 AM EDT [facility] Reproductive Endocrinology Infertility [address] [place] [address] Santa No MD [address] [place], [place] [phone] infertility documented as of this encounter Visit Diagnoses Not on filedocumented in this encounter Care Teams Summer Camp Counselor Relationship Specialty Start Date End Date Dwayne Johnson [address] [place] [address] Referring Personnel Counselor 10/04/20 documented as of this encounter
--- OUTSIDE RECORDS SUMMARY | 2025-02-09 13:32 | XMS_ITS | Encounter Summary ---
Author Organization [facility] Address [address] [place] [address] Care Team Providers Care Garment Mender Name Role Phone Pcp, No EKG MANAGER Primary Care Provider Dwayne Liu Unavailable [...] Advice Reproductive Endocrinology Infertility [address] [place] [address] Dmitry Oh MD [address] [place], [place] [phone] Follicle Ultrasound Social History Tobacco Use Types [...] N ot on file 10/15/2020 Data from: https://www.neighborhoodatlas.[facility]/. Last address used for calculation Not on [...] Contact Info) Description 03/23/2025 10:00 AM EDT [facility] Reproductive Endocrinology Infertility [address] [place] [address] Santa No MD [address] [place] [address] infertility documented as of this encounter Visit Diagnoses Not on filedocumented in this encounter Care Teams Garment Mender Relationship Specialty Start Date End Date PcpKarla APRN PCP - General 03/29/22 10/14/22 Dwayne Johnson [address] [place] [address] Referring Brusher Hand 10/04/20 documented as of this encounter
--- OUTSIDE RECORDS SUMMARY | 2025-02-09 13:32 | XMS_ITS | Clinical Summary ---
Author Organization [facility] Address [address] [place] [address] Care Team Providers Care Licensed Journeyman Electrician Name Role Phone Unavailable Primary Care Provider [...]
--- OUTSIDE RECORDS SUMMARY | 2025-02-09 13:32 | XMS_ITS | Encounter Summary ---
Author Organization [facility] Address [address] [place] [address] Care Team Providers Care Marketing Services Manager Name Role Phone Pcp, No BUTTON SEWING MACHINE OPERATOR Primary Care Provider Dwayne Liu Unavailable Source Comments In the event this information is protected by the Federal Confidentiality of Alcohol and Drug AbusePatient Records regulations: The Federal rules restrict any use of the information to criminally investigate or prosecute any alcohol or drug abuse patient.[facility] Encounter Details Date Type Department Care Team (Latest Contact Info) Description 09/18/2022 Get Medical Advice Reproductive Endocrinology Infertility [address] [place] [address] Dmitry Oh MD [address] [place] [address] Ultrasound results Social History Tobacco [...] N ot on file 10/15/2020 Data from: https://www.neighborhoodatlas.[facility]/. Last address used for calculation Not on [...] Contact Info) Description 03/23/2025 10:00 AM EDT [facility] Reproductive Endocrinology Infertility [address] [place] [address] Santa No MD [address] [place] [address] infertility documented as of this encounter Visit Diagnoses Not on filedocumented in this encounter Care Teams Marketing Services Manager Relationship Specialty Start Date End Date PcpKarla APRN PCP - General 03/29/22 10/14/22 Dwayne Johnson [address] [place] [address] Referring Business Continuity Global Director 10/04/20 documented as of this encounter
--- OUTSIDE RECORDS SUMMARY | 2025-02-09 13:32 | XMS_ITS | Encounter Summary ---
Author Organization [facility] Address [address] [place] [address] Care Team Providers Care Lump Receiver Name Role Phone Dwayne Johnson Unavailable Source Comments In the event this information is protected by the Federal Confidentiality of Alcohol and Drug AbusePatient Records regulations: The Federal rules restrict any use of the information to criminally investigate or prosecute any alcohol or drug abuse patient.[facility] Encounter Details Date Type Department Care Team (Late st Contact Info) Description 07/27/2023 Patient Msg Reproductive Endocrinology Infertility [address] [place] [address] Provider, Ccf Plan 07/27 Social History Tobacco [...] risk 7 02/18/2023 Data from: https://www.neighborhoodatlas.medicine.[facility] [...] EDT [facility] Reproductive Endocrinology Infertility [address] [place] [address] Santa No MD [address] [place] [place], [place] [address] infertility documented as of this encounter Visit Diagnoses Not on filedocumented in this encounter Care Teams Lump Receiver Relationship Specialty Start Date End Date Dwayne Johnson [address] [place] [address] Referring Hold Worker 10/04/20 documented as of this encounter
--- OUTSIDE RECORDS SUMMARY | 2025-02-09 13:32 | XMS_ITS | Encounter Summary ---
Author Organization [facility] Address [address] [place] [address] Care Team Providers Care Fatback Trimmer Name Role Phone Dwayne Johnson Unavailable Source Comments In the event this information is protected by the Federal Confidentiality of Alcohol and Drug AbusePatient Records regulations: The Federal rules restrict any use of the information to criminally investigate or prosecute any alcohol or drug abuse patient.[facility] Encounter Details Date Type Department Care Team (Late st Contact Info) Description 06/06/2024 Patient Msg Reproductive Endocrinology Infertility [address] [place], [place] [id number] Provider, Ccf plan for 06/06 Social History [...] Contact Info) Description 03/23/2025 10:00 AM EDT [facility] Reproductive Endocrinology Infertility [address] [place] [address] Santa No MD [address] [place], [place] [phone] infertility documented as of this encounter Visit Diagnoses Not on filedocumented in this encounter Care Teams Fatback Trimmer Relationship Specialty Start Date End Date Dwayne Johnosn [address] [place] [address] Referring Hair Designer 10/04/20 documented as of this encounter
--- OUTSIDE RECORDS SUMMARY | 2025-02-09 13:32 | XMS_ITS | Encounter Summary ---
Author Organization [facility] Address [address] [place] [address] Care Team Providers Care Contact Acid Plant Operator Name Role Phone Pcp, No MUSIC INSTRUCTOR Primary Care Provider Dwayne Liu Unavailable Source Comments In the event this information is protected by the Federal Confidentiality of Alcohol and Drug AbusePatient Records regulations: The Federal rules restrict any use of the information to criminally investigate or prosecute any alcohol or drug abuse patient.[facility] Encounter Details Date Type Department Care Team (Latest Contact Info) Description 06/10/2022 Patient Msg Reproductive Endocrinology Infertility [address] [facility] [place] [address] Dmitry Oh MD [address] [place], [place] [phone] Request an Appointment Social History Tobacco Use [...] N ot on file 10/15/2020 Data from: https://www.neighborhoodatlas.medicine.[facility].edu/. Last address used for calculation Not [...] [facility] Reproductive Endocrinology Infertility [address] [place] [address] Santa No MD [address] [place], [place] [phone] infertility documented as of this encounter Visit Diagnoses Not on filedocumented in this encounter Care Teams Contact Acid Plant Operator Relationship Specialty Start Date End Date PcpKarla APRN PCP - General 03/29/22 10/14/22 Dwayne Johnson [address] [place] [address] Referring Blocking Machine Operator Second 10/04/20 documented as of this encounter
--- OUTSIDE RECORDS SUMMARY | 2025-02-09 13:32 | XMS_ITS | Encounter Summary ---
Author Organization [facility] Address [address] [place] [address] Care Team Providers Care Cooker Pie Filling Name Role Phone Dwayne Johnson Unavailable Source Comments In the event this information is protected by the Federal Confidentiality of Alcohol and Drug AbusePatient Records regulations: The Federal rules restrict any use of the information to criminally investigate or prosecute any alcohol or drug abuse patient.[facility] Reason for Visit * Reason Onset Date Comments Refill Request 07/12/2024 Encounter Details Date Type Department Care Team (Late st Contact Info) Description 07/12/2024 Refill Reproductive Endocrinology Infertility [address] [place] [address] Kerry Weiner PA-C [address] [place] [address] Refill Request Social History Tobacco Use Types [...] risk 7 08/19/2023 Data from: https://www.neighborhoodatlas.medicine.[facility].edu/. Last address used for calculation [address] [...] Contact Info) Description 03/23/2025 10:00 AM EDT [facility] Reproductive Endocrinology Infertility [address] [place] [address] Santa No MD [address] [place] [address] infertility documented as of this encounter Visit Diagnoses Not on filedocumented in this encounter Care Teams Cooker Pie Filling Relationship Specialty Start Date End Date Dwayne Johnson: [phone] [address] [place] [address] Referring Freight Flagman 10/04/20 documented as of this encounter
--- OUTSIDE RECORDS SUMMARY | 2025-02-09 13:32 | XMS_ITS | Encounter Summary ---
Author Organization [facility] Address [address] [place] [address] Care Team Providers Care Building Insulation Supervisor Name Role Phone Dwayne Johnson Unavailable [...] Description 06/26/2023 Patient Msg Reproductive Endocrinology Infertility [address] [place] [address] Provider, Ccf Re: Dexamethason Social History Tobacco [...] is lower risk 7 02/18/2023 Data from: https://www.neighborhoodatlas.medicine.[facility].edu/. Last address used for [...] 03/23/2025 10:[address] [facility] Reproductive Endocrinology Infertility [address] [place] [address] Santa No MD [address] [place] [place], [place] [phone] infertility documented as of this encounter Visit Diagnoses Not on filedocumented in this encounter Care Teams Building Insulation Supervisor Relationship Specialty Start Date End Date Dwayne Johnson: [phone] [address] [place] [address] Referring Senior Loan Processor 10/04/20 documented as of this encounter
--- OUTSIDE RECORDS SUMMARY | 2025-02-09 13:32 | XMS_ITS | Encounter Summary ---
Author Organization [facility] Address [address] [place] [address] Care Team Providers Care Research Nurse Practitioner Name Role Phone Jax Champagne Primary Care Provider [phone] [phone] Pcp, No ASSISTANT EDITOR Primary Care Provider Dwayne Liu Unavailable Source Comments In the event this information is protected by the Federal Confidentiality of Alcohol and Drug AbusePatient Records regulations: The Federal rules restrict any use of the information to criminally investigate or prosecute any alcohol or drug abuse patient.[facility] Encounter Details Date Type Department Care Team (Late st Contact Info) Description 08/12/2021 Patient Msg Reproductive Endocrinology Infertility [address] [place] [address] Dmitry Oh MD [address] [place], [place] [phone] labs Social History Tobacco Use Types Packs/Day [...] N ot on file 10/15/2020 Data from: https://www.neighborhoodatlas.medicine.[place].edu/. Last address used for calculation Not on [...] Description 03/23/2025 10:00 AM EDT [facility] Reproductive Endocrinology Infertility [address] [place] [address] Santa No MD [address] [place], [place] [phone] infertility documented as of this encounter Visit Diagnoses Not on filedocumented in this encounter Care Teams Research Nurse Practitioner Relationship Specialty Start Date End Date Jax Champagne PCP - General 03/21/09 03/28/22 PcpKarla APRN PCP - General 03/29/22 10/14/22 Dwayne Johnson [address] [place] [address] Referring Wildlife Forensic Geneticist 10/04/20 documented as of this encounter
--- OUTSIDE RECORDS SUMMARY | 2025-02-09 13:32 | XMS_ITS | Encounter Summary ---
Author Organization [facility] Address [address] [place] [address] Care Team Providers Care Bonderite Operator Name Role Phone Dwayne Johnson Unavailable [...] Description 08/28/2023 Patient Msg Reproductive Endocrinology Infertility [address] [place], [place] [phone] Provider, Ccf PLan Social History Tobacco Use [...] risk 7 08/19/2023 Data from: https://www.neighborhoodatlas.medicine.[facility].edu/. Last address used for calculation [address] [...] Info) Description 03/23/2025 10:00 AM EDT [facility] Reproductive Endocrinology Infertility [address] [place] [address] Santa No MD [address] [place] [place], [place] [phone] infertility documented as of this encounter Visit Diagnoses Not on filedocumented in this encounter Care Teams Bonderite Operator Relationship Specialty Start Date End Date Dwayne Johnson [address] [place] [address] Referring Retail Worker 10/04/20 documented as of this encounter
--- OUTSIDE RECORDS SUMMARY | 2025-02-09 13:32 | XMS_ITS | Encounter Summary ---
Author Organization [facility] Address [address] [place] [address] Care Team Providers Care Director Clinical Applications Name Role Phone Dwayne Johnson Unavailable Source [...] Description 07/07/2024 Patient Msg Reproductive Endocrinology Infertility [address] [place], [place] [phone] Provider, Ccf Super Ov Cycle Social History [...] Description 03/23/2025 10:00 AM EDT [facility] Reproductive Endocrinology Infertility [address] [place] [address] Santa No MD [address] [place] [place], [place] [phone] infertility documented as of this encounter Visit Diagnoses Not on filedocumented in this encounter Care Teams Director Clinical Applications Relationship Specialty Start Date End Date Dwayne Johnson [address] [place] [address] Referring Anodizing Line Operator 10/04/20 documented as of this encounter
--- OUTSIDE RECORDS SUMMARY | 2025-02-09 13:32 | XMS_ITS | Encounter Summary ---
Author Organization [facility] Address [address] [place] [address] Care Team Providers Care Life Insurance Actuary Name Role Phone Jax Champagne Primary Care Provider [phone] [phone] Pcp, No BELT AND LINK SHOP SUPERVISOR Primary Care Provider Dwayne Liu Unavailable Source Comments In the event this information is protected by the Federal Confidentiality of Alcohol and Drug AbusePatient Records regulations: The Federal rules restrict any use of the information to criminally investigate or prosecute any alcohol or drug abuse patient.[facility] Encounter Details Date Type Department Care Team (Late st Contact Info) Description 12/25/2021 Get Medical Advice Reproductive Endocrinology Infertility [address] [phone] Dmitry Oh MD [address] [place] [address] Appt Social History Tobacco Use Types Packs/Day [...] N ot on file 10/15/2020 Data from: https://www.neighborhoodatlas.medicine.[facility]/. Last address used for calculation Not on [...] Description 03/23/2025 10:00 AM EDT [facility] Reproductive Endocrinology Infertility [address] [place] [address] Santa No MD [address] [place], [place] [address] infertility documented as of this encounter Visit Diagnoses Not on filedocumented in this encounter Care Teams Life Insurance Actuary Relationship Specialty Start Date End Date Jax Champagne PCP - General 03/21/09 03/28/22 PcpKarla APRN PCP - General 03/29/22 10/14/22 Dwayne Johnson [address] [place] [address] Referring Yardmaster 10/04/20 documented as of this encounter
--- OUTSIDE RECORDS SUMMARY | 2025-02-09 13:32 | XMS_ITS | Encounter Summary ---
Author Organization [facility] Address [address] [place] [address] Care Team Providers Care Cheese Wrapper Name Role Phone Jax Champagne Primary Care Provider [phone] [phone] Pcp, No SALES DEVELOPMENT DIRECTOR Primary Care Provider Dwayne Liu Unavailable [...] Get Medical Advice Reproductive Endocrinology Infertility [address] [phone] Dmitry Oh MD [address] [place], [place] [address] Spotting/Next Steps Social History Tobacco Use Types [...] N ot on file 10/15/2020 Data from: https://www.neighborhoodatlas.medicine.[facility]/. Last [...] Contact Info) Description 03/23/2025 10:00 AM EDT [facility] Reproductive Endocrinology Infertility [address] [place] [address] Santa No MD [address] [facility] [place] [place] [address] infertility documented as of this encounter Visit Diagnoses Not on filedocumented in this encounter Care Teams Cheese Wrapper Relationship Specialty Start Date End Date Jax Champagne PCP - General 03/21/09 03/28/22 PcpKarla APRN PCP - General 03/29/22 10/14/22 Dwayne Johnson [address] [place] [address] Referring Workcell Operator 10/04/20 documented as of this encounter
--- OUTSIDE RECORDS SUMMARY | 2025-02-09 13:32 | XMS_ITS | Encounter Summary ---
Author Organization [facility] Address [address] [place] [address] Care Team Providers Care Scale Expert Name Role Phone Dwayne Johnson Unavailable [...] Description 08/25/2023 Patient Msg Reproductive Endocrinology Infertility [address] [place], [place] [phone] Provider, Ccf plan for 08/25/23 Social History [...] lower risk 7 08/19/2023 Data from: https://www.neighborhoodatlas.medicine.[facility].edu/. Last address used for calculation [address] [...] [facility] Reproductive Endocrinology Infertility [address] [place] [address] Santa No MD [address] [place] [address] infertility documented as of this encounter Visit Diagnoses Not on filedocumented in this encounter Care Teams Scale Expert Relationship Specialty Start Date End Date Dwayne Johnson [address] [place] [address] Referring Dog License Officer Supervisor 10/04/20 documented as of this encounter
--- OUTSIDE RECORDS SUMMARY | 2025-02-09 13:32 | XMS_ITS | Encounter Summary ---
Author Organization [facility] Address [address] [place] [address] Care Team Providers Care Clinical Massage Therapist Name Role Phone Pcp, No MANAGER ADVANCED Primary Care Provider Dwayne Liu Unavailable Source Comments In the event this information is protected by the Federal Confidentiality of Alcohol and Drug AbusePatient Records regulations: The Federal rules restrict any use of the information to criminally investigate or prosecute any alcohol or drug abuse patient.[facility] Encounter Details Date Type Department Care Team (Late st Contact Info) Description 08/28/2022 Get Medical Advice Reproductive Endocrinology Infertility [address] [place] [address] Dmitry Oh MD [address] [place] [address] Results Social History Tobacco Use [...] N ot on file 10/15/2020 Data from: https://www.neighborhoodatlas.[facility]/. Last address used for calculation Not [...] AM EDT [facility] Reproductive Endocrinology Infertility [address] [place] [address] Santa No MD [address] [place] [address] infertility documented as of this encounter Visit Diagnoses Not on filedocumented in this encounter Care Teams Clinical Massage Therapist Relationship Specialty Start Date End Date PcpKarla APRN PCP - General 03/29/22 10/14/22 Dwayne Johnson [address] [place] [address] Referring Palliative Care Physician 10/04/20 documented as of this encounter
--- OUTSIDE RECORDS SUMMARY | 2025-02-09 13:32 | XMS_ITS | Encounter Summary ---
Author Organization [facility] Address [address] [place] [address] Care Team Providers Care Usability Strategist Name Role Phone Dwayne Johnson Unavailable Source Comments In the event this information is protected by the Federal Confidentiality of Alcohol and Drug AbusePatient Records regulations: The Federal rules restrict any use of the information to criminally investigate or prosecute any alcohol or drug abuse patient.[facility] Encounter Details Date Type Department Care Team (Late st Contact Info) Description 08/18/2023 Patient Msg Reproductive Endocrinology Infertility [address] [place], [place] [phone] Provider, Ccf future appt Social History Tobacco [...] 08/19/2023 Data from: https://www.neighborhoodatlas.medicine.[facility].edu/. Last address used for calculation [address] [...] EDT [facility] Reproductive Endocrinology Infertility [address] [place], [place] [address] Santa No MD [address] [place] [place], [place] [address] infertility documented as of this encounter Visit Diagnoses Not on filedocumented in this encounter Care Teams Usability Strategist Relationship Specialty Start Date End Date Dwayne Johnson [address] [place] [address] Referring Ladle Mechanic 10/04/20 documented as of this encounter
--- OUTSIDE RECORDS SUMMARY | 2025-02-09 13:32 | XMS_ITS | Encounter Summary ---
Author Organization [facility] Address [address] [place] [address] Care Team Providers Care Duck Bill Operator Name Role Phone Jax Champagne Primary Care Provider [phone] -[phone] Pcp, No BRIDGE SAW OPERATOR Primary Care Provider Dwayne Liu Unavailable Source Comments In the event this information is protected by the Federal Confidentiality of Alcohol and Drug AbusePatient Records regulations: The Federal rules restrict any use of the information to criminally investigate or prosecute any alcohol or drug abuse patient.[facility] Encounter Details Date Type Department Care Team (Late st Contact Info) Description 02/14/2022 Get Medical Advice Reproductive Endocrinology Infertility [address] [place] [address] Dmitry Oh MD [address] [place], [place] [phone] Testing Social History Tobacco Use Types Packs/Day [...] N ot on file 10/15/2020 Data from: https://www.neighborhoodatlas.medicine.[facility]/. Last address used for calculation Not [...] Info) Description 03/23/2025 10:00 AM EDT [facility] Reproductive Endocrinology Infertility [address] [place] [address] Santa No MD [address] [place] [address] infertility documented as of this encounter Visit Diagnoses Not on filedocumented in this encounter Care Teams Duck Bill Operator Relationship Specialty Start Date End Date aJx Champagne PCP - General 03/21/09 03/28/22 Karla Hendrickson APRN PCP - General 03/29/22 10/14/22 Dwayne Johnson [address] [place] [address] Referring Scale Mechanic 10/04/20 documented as of this encounter
--- OUTSIDE RECORDS SUMMARY | 2025-02-09 13:32 | XMS_ITS | Encounter Summary ---
Author Organization [facility] Address [address] [place] [address] Care Team Providers Care Computer Hardware Technician Name Role Phone Dwayne Johnson Unavailable Source Comments In the event this information is protected by the Federal Confidentiality of Alcohol and Drug AbusePatient Records regulations: The Federal rules restrict any use of the information to criminally investigate or prosecute any alcohol or drug abuse patient.[facility] Encounter Details Date Type Department Care Team (Latest Contact Info) Description 06/03/2024 Patient Msg Reproductive Endocrinology Infertility [address] [place], [place] [phone] Provider, Ccf Super Ovulation Plan 06/03/24 Social [...] is lower risk 7 08/19/2023 Data from: https://www.neighborhoodatlas.medicine.[facility].edu/. Last [...] Info) Description 03/23/2025 10:00 AM EDT [facility] Reproductive Endocrinology Infertility [address] [place] [address] Santa No MD [address] [place] [place], [place] [phone] infertility documented as of this encounter Visit Diagnoses Not on filedocumented in this encounter Care Teams Computer Hardware Technician Relationship Specialty Start Date End Date Dwayne Johnson: [phone] [address] [place] [address] Referring Word Processing Supervisor 10/04/20 documented as of this encounter
--- OUTSIDE RECORDS SUMMARY | 2025-02-09 13:32 | XMS_ITS | Encounter Summary ---
Author Organization [facility] Address [address] [place] [address] Care Team Providers Care Water Plant Maintenance Mechanic Name Role Phone Dwayne Johnson Unavailable Source Comments In the event this information is protected by the Federal Confidentiality of Alcohol and Drug AbusePatient Records regulations: The Federal rules restrict any use of the information to criminally investigate or prosecute any alcohol or drug abuse patient.[facility] Encounter Details Date Type Department Care Team (Late st Contact Info) Description 10/27/2022 Patient Msg Reproductive Endocrinology Infertility [address] [place] [address] Kerry Weiner PA-C [address] [place] [address] Following up Social History Tobacco [...] N ot on file 09/29/2022 Data from: https://www.neighborhoodatlas.medicine.[facility].edu/. Last address used for calculation [address] [place] 09/29/2022 Comments No Sex and Gender [...] [facility] Rep[facility] End[facility]inology Infertility [address] [place] [address] Santa No MD [address] [place], [place] [phone] infertility documented as of this encounter Visit Diagnoses Not on filedocumented in this encounter Care Teams Water Plant Maintenance Mechanic Relationship Specialty Start Date End Date Dwayne Johnson [address] [place] [address] Referring Production Broaching Machine Operator 10/04/20 documented as of this encounter
--- OUTSIDE RECORDS SUMMARY | 2025-02-09 13:32 | XMS_ITS | Encounter Summary ---
Author Organization [facility] Address [address] [place] [address] Care Team Providers Care Soda Flaker Name Role Phone Jax Champagne Primary Care Provider [phone] Pcp, No OPERATIONS LEADER Primary Care Provider Dwayne Liu Unavailable Source Comments In the event this information is protected by the Federal Confidentiality of Alcohol and Drug AbusePatient Records regulations: The Federal rules restrict any use of the information to criminally investigate or prosecute any alcohol or drug abuse patient.[facility] Encounter Details Date Type Department Care Team (Latest Contact Info) Description 11/30/2021 Patient Msg Reproductive Endocrinology Infertility [address] [address] Dmitry Oh MD [address] [place], [place] [phone] Request an Appointment Social History Tobacco Use [...] on file 10/15/2020 Data from: https://www.neighborhoodatlas.medicine.[facility]/. Last address used for [...] Contact Info) Description 03/23/2025 10:00 AM EDT [facility] Reproductive Endocrinology Infertility [address] [place] [address] Santa No MD [address] [place], [place] [phone] infertility documented as of this encounter Visit Diagnoses Not on filedocumented in this encounter Care Teams Soda Flaker Relationship Specialty Start Date End Date Jax Champagne PCP - General 03/21/09 03/28/22 PcpKarla APRN PCP - General 03/29/22 10/14/22 Dwayne Johnson [address] [place] [address] Referring Craps Manager 10/04/20 documented as of this encounter
--- OUTSIDE RECORDS SUMMARY | 2025-02-09 13:32 | XMS_ITS | Encounter Summary ---
Author Organization [facility] Address [address] [place] [address] Care Team Providers Care Public Works Supervisor Name Role Phone Dwayne Johnson Unavailable [...] Patient Msg Reproductive Endocrinology Infertility [address] [place] [phone] Provider, Ccf Trigger tonight Social History Tobacco [...] is lower risk 7 02/18/2023 Data from: https://www.neighborhoodatlas.medicine.[facility].edu/. Last address used for [...] Info) Description 03/23/2025 10:00 AM EDT [facility] Reproductive Endocrinology Infertility [address] [place] [address] Santa No MD [address] [facility] [place] [address] infertility documented as of this encounter Visit Diagnoses Not on filedocumented in this encounter Care Teams Public Works Supervisor Relationship Specialty Start Date End Date Dwayne Johnson [address] [place] [address] Referring Diamond Die Driller 10/04/20 documented as of this encounter
--- OUTSIDE RECORDS SUMMARY | 2025-02-09 13:32 | XMS_ITS | Encounter Summary ---
Author Organization [facility] Address [address] [place] [address] Care Team Providers Care Thread Dresser Name Role Phone Jax Champagne Primary Care Provider [phone] Pcp, No ACCOUNTING SUPERVISOR Primary Care Provider Dwayne Liu Source Comments In the event this information is protected by the Federal Confidentiality of Alcohol and Drug AbusePatient Records regulations: The Federal rules restrict any use of the information to criminally investigate or prosecute any alcohol or drug abuse patient.[facility] Encounter Details Date Type Department Care Team (Latest Contact Info) Description 11/30/2021 Patient Msg Reproductive Endocrinology Infertility [address] [place] [address] Dmitry Oh MD [address] [place] [address] Appointment Cancellation Request Social History [...] N ot on file 10/15/2020 Data from: https://www.neighborhoodatlas.medicine.[facility]/. Last address used for calculation [...] Contact Info) Description 03/23/2025 10:00 AM EDT [facility] Reproductive Endocrinology Infertility [address] [place] [address] Santa No MD [address] [place] [address] infertility documented as of this encounter Visit Diagnoses Not on filedocumented in this encounter Care Teams Thread Dresser Relationship Specialty Start Date End Date Jax Champagne PCP - General 03/21/09 03/28/22 PcpKarla APRN PCP - General 03/29/22 10/14/22 Dwayne Johnson [address] [place] [address] Referring Electrical Maintenance Mechanic 10/04/20 documented as of this encounter
--- OUTSIDE RECORDS SUMMARY | 2025-02-09 13:32 | XMS_ITS | Encounter Summary ---
Author Organization [facility] Address [address] [place] [address] Care Team Providers Care Toe Puller Name Role Phone Dwayne Johnson Unavailable Source Comments In the event this information is protected by the Federal Confidentiality of Alcohol and Drug AbusePatient Records regulations: The Federal rules restrict any use of the information to criminally investigate or prosecute any alcohol or drug abuse patient.[facility] Encounter Details Date Type Department Care Team (Latest Contact Info) Description 07/17/2023 Patient Msg Reproductive Endocrinology Infertility [address] [place] [phone] Provider, Ccf Super ovulation plan Social History [...] is lower risk 7 02/18/2023 Data from: https://www.neighborhoodatlas.medicine.[facility].edu/. Last address used for calculation [...] Description 03/23/2025 10:00 AM EDT [facility] Reproductive Endocrinology Infertility [address] [place] [address] Santa No MD [address] [place], [place] [phone] infertility documented as of this encounter Visit Diagnoses Not on filedocumented in this encounter Care Teams Toe Puller Relationship Specialty Start Date End Date Dwayne Johnson [address] [place] [address] Referring Manager Pricing 10/04/20 documented as of this encounter
--- OUTSIDE RECORDS SUMMARY | 2025-02-09 13:32 | XMS_ITS | Encounter Summary ---
Author Organization [facility] Address [id number] [address] [place] [address] Care Team Providers Care Food Preparation Kitchen Aide Name Role Phone Jessu Berumen MD Primary Care Provider [phone] Reason for Visit * Reason Comments Med Refill Encounter Details Date Type Department Care Team (Late st Contact Info) Description 11/08/2019 Refill [facility] [address] [place] [phone] Suzy Heath, INTERMODAL DISPATCHER-MORTARMAN [address] [place], [place] [phone] Social History Tobacco Use Types Packs/Day Years [...] EST Office Visit [facility] [address] [place] [phone] Jesus Berumen MD [address] [place] [phone] documented as of this encounter Visit Diagnoses [...] documented as of this encounter Care Teams Food Preparation Kitchen Aide Relationship Specialty Start Date End Date Jesus Berumen MD [address] [place] [phone] PCP - General Internal Medicine 01/24/25 documented as of this encounter
--- OUTSIDE RECORDS SUMMARY | 2025-02-09 13:33 | XMS_ITS | Encounter Summary ---
Author Organization [facility] Address [id number] [address] [place] [address] Care Team Providers Care Rn Critical Care Name Role Phone Jesus Berumen MD Primary Care Provider [phone] Reason for Visit * Reason Comments Med Refill Encounter Details Date Type Department Care Team (Late st Contact Info) Description 11/08/2019 Refill [facility] [address] [place] [phone] Suzy Heath, SENIOR HOUSEKEEPER-PULL THROUGH HOOKER [address] [place], [place] [phone] Social History Tobacco Use Types Packs/Day Years [...] Office Visit [facility] [address] [place] [address] Jesus Berumen MD [address] [place] [phone] documented as of this encounter Visit Diagnoses [...] documented as of this encounter Care Teams Rn Critical Care Relationship Specialty Start Date End Date Jesus Berumen MD [address] [place] [phone] PCP - General Internal Medicine 01/24/25 documented as of this encounter
--- OUTSIDE RECORDS SUMMARY | 2025-02-09 13:33 | XMS_ITS | Encounter Summary ---
Author Organization [facility] Address [address] [place] [address] Care Team Providers Care Rn Field Case Manager Name Role Phone Dwayne Johnson Unavailable Source Comments In the event this information is protected by the Federal Confidentiality of Alcohol and Drug AbusePatient Records regulations: The Federal rules restrict any use of the information to criminally investigate or prosecute any alcohol or drug abuse patient.[facility] Encounter Details Date Type Department Care Team (Latest Contact Info) Description 08/10/2024 Patient Msg Reproductive Endocrinology Infertility [address] [place] [address] Provider, Ccf Super Ov Plan 08/10/24 Social [...] is lower risk 7 08/19/2023 Data from: https://www.neighborhoodatlas.medicine.[facility].edu/. Last address used for calculation [address] [...] EDT [facility] Reproductive Endocrinology Infertility [address] [place] [address] Santa No MD [address] [place], [place] [phone] infertility documented as of this encounter Visit Diagnoses Not on filedocumented in this encounter Care Teams Rn Field Case Manager Relationship Specialty Start Date End Date Dwayne Johnson: [phone] [address] [place] [address] Referring Automotive Glass Installer 10/04/20 documented as of this encounter
--- OUTSIDE RECORDS SUMMARY | 2025-02-09 13:33 | XMS_ITS | Encounter Summary ---
Author Organization [facility] Address [address] [place] [address] Care Team Providers Care Transition Mgr Name Role Phone Jax Mckeon MD Primary Care Provider [phone] Encounter Details Date Type Department Care Team (Late st Contact Info) Description 01/30/2025 Abstract [facility] OB [address] 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
--- OUTSIDE RECORDS SUMMARY | 2025-02-09 13:33 | XMS_ITS | Encounter Summary ---
Author Organization [facility] Address [address] [place] [address] Care Team Providers Care Consultant Teacher Name Role Phone Dwayne Johnson Unavailable Source Comments In the event this information is protected by the Federal Confidentiality of Alcohol and Drug AbusePatient Records regulations: The Federal rules restrict any use of the information to criminally investigate or prosecute any alcohol or drug abuse patient.[facility] Encounter Details Date Type Department Care Team (Late st Contact Info) Description 10/27/2023 Patient Msg Reproductive Endocrinology Infertility [address] [place] [address] Dmitry hO MD [address] [place] [address] surgery Social History Tobacco Use [...] lower risk 7 08/19/2023 Data from: https://www.neighborhoodatlas.medicine.[facility].edu/. Last address used for calculation [address] 08/19/2023 Comments Yes Sex and Gender [...] EDT [facility] Reproductive Endocrinology Infertility [address] [place] [address] Santa No MD [address] [place], [place] [phone] infertility documented as of this encounter Visit Diagnoses Not on filedocumented in this encounter Care Teams Consultant Teacher Relationship Specialty Start Date End Date Dwayne Johnson [address] [place] [address] Referring Putaway Driver 10/04/20 documented as of this encounter
--- OUTSIDE RECORDS SUMMARY | 2025-02-09 13:33 | XMS_ITS | Encounter Summary ---
Author Organization [facility] Address [address] [place] [address] Care Team Providers Care Back Gray Cloth Washer Name Role Phone Dwayne Johnson Unavailable Source Comments In the event this information is protected by the Federal Confidentiality of Alcohol and Drug AbusePatient Records regulations: The Federal rules restrict any use of the information to criminally investigate or prosecute any alcohol or drug abuse patient.[facility] Encounter Details Date Type Department Care Team (Latest Contact Info) Description 05/13/2023 Patient Msg Reproductive Endocrinology Infertility [address] [place], [place] [phone] Provider, Ccf Super Ovulation Plan 05/13/23 Social [...] is lower risk 7 02/18/2023 Data from: https://www.neighborhoodatlas.medicine.[facility].edu/. Last address used for calculation [...] Contact Info) Description 03/23/2025 10:00 AM EDT [facility] Reproductive Endocrinology Infertility [address] [place] [address] Santa No MD [address] [place] [address] infertility documented as of this encounter Visit Diagnoses Not on filedocumented in this encounter Care Teams Back Gray Cloth Washer Relationship Specialty Start Date End Date Dwayne Johnson [address] [place] [address] Referring Director Maternal Child 10/04/20 documented as of this encounter
--- OUTSIDE RECORDS SUMMARY | 2025-02-09 13:33 | XMS_ITS | Encounter Summary ---
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
--- OUTSIDE RECORDS SUMMARY | 2025-02-09 13:33 | XMS_ITS | Encounter Summary ---
Author Organization [facility] Address [address] [place] [address] Care Team Providers Care Dairy Nutrition Consultant Name Role Phone Dwayne Johnson Unavailable Source Comments In the event this information is protected by the Federal Confidentiality of Alcohol and Drug AbusePatient Records regulations: The Federal rules restrict any use of the information to criminally investigate or prosecute any alcohol or drug abuse patient.[facility] Encounter Details Date Type Department Care Team (Late st Contact Info) Description 08/15/2024 Patient Msg Reproductive Endocrinology Infertility [address] [place], [place] [phone] Provider, Ccf Plan 08/15 Social History Tobacco [...] is lower risk 7 08/19/2023 Data from: https://www.neighborhoodatlas.medicine.[facility].edu/. Last address used for calculation [...] [facility] Reproductive Endocrinology Infertility [address] [place] [address] Santa No MD [address] [place], [place] [phone] infertility documented as of this encounter Visit Diagnoses Not on filedocumented in this encounter Care Teams Dairy Nutrition Consultant Relationship Specialty Start Date End Date Dwayne Johnson [address] [place] [address] Referring Automobile Designer 10/04/20 documented as of this encounter
--- OUTSIDE RECORDS SUMMARY | 2025-02-09 13:33 | XMS_ITS | Encounter Summary ---
Author Organization [facility] Address [address] [place] [address] Care Team Providers Care Tailor Fitter Name Role Phone Dwayne Johnson Unavailable Source Comments In the event this information is protected by the Federal Confidentiality of Alcohol and Drug AbusePatient Records regulations: The Federal rules restrict any use of the information to criminally investigate or prosecute any alcohol or drug abuse patient.[facility] Encounter Details Date Type Department Care Team (Late st Contact Info) Description 12/15/2022 Patient Msg Reproductive Endocrinology Infertility [address] [place] [address] Sushila Vee APRN.CYLINDER MACHINE OPERATOR [address] [place] [address] Nexts steps Social History Tobacco Use Types [...] N ot on file 09/29/2022 Data from: https://www.neighborhoodatlas.medicine.[facility].edu/. Last address used for calculation [address] [...] Info) Description 03/23/2025 10:00 AM EDT [facility] Reproductive Endocrinology Infertility [address] [place] [address] Santa No MD [address] [place], [place] [phone] infertility documented as of this encounter Visit Diagnoses Not on filedocumented in this encounter Care Teams Tailor Fitter Relationship Specialty Start Date End Date Dwayne Johnson [address] [place] [address] Referring Home Visitor 10/04/20 documented as of this encounter
--- OUTSIDE RECORDS SUMMARY | 2025-02-09 13:33 | XMS_ITS | Encounter Summary ---
Author Organization [facility] Address [address] [place] [address] Care Team Providers Care Heel Sprayer First Name Role Phone Dwayne Johnson Unavailable Source [...] Description 10/23/2023 Patient Msg Reproductive Endocrinology Infertility [address] [place], [place] [phone] Provider, Cckimberli RE: Message today Social History [...] is lower risk 7 08/19/2023 Data from: https://www.neighborhoodatlas.medicine.[facility].edu/. Last address used for calculation [...] [facility] Reproductive Endocrinology Infertility [address] [place] [address] Santa No MD [address] [place], [place] [phone] infertility documented as of this encounter Visit Diagnoses Not on filedocumented in this encounter Care Teams Heel Sprayer First Relationship Specialty Start Date End Date Dwayne Johnson [address] [place] [address] Referring Impact Retail Service Merchandiser 10/04/20 documented as of this encounter
--- OUTSIDE RECORDS SUMMARY | 2025-02-09 13:33 | XMS_ITS | Encounter Summary ---
Author Organization [email or web address] Address [id number] [address] [place] [address] Care Team Providers Care Knife Grinder Name Role Phone Jesus Berumen MD Primary Care Provider [phone] Reason for Visit * Reason Comments Med Refill Encounter Details Date Type Department Care Team (Late st Contact Info) Description 11/08/2019 Refill [facility] [address] [place] [address] Suzy Heath, CLAIM SERVICE REPRESENTATIVE-JUNIOR DATABASE ADMINISTRATOR [address] [place], [place] [phone] Social History Tobacco Use Types Packs/Day Years [...] Office Visit [facility] [address] [place] [address] Jesus Berumen MD [address] [place] [phone] documented as of this encounter Visit Diagnoses [...] documented as of this encounter Care Teams Knife Grinder Relationship Specialty Start Date End Date Jesus Berumen MD [address] [place] [phone] PCP - General Internal Medicine 01/24/25 documented as of this encounter
--- OUTSIDE RECORDS SUMMARY | 2025-02-09 13:33 | XMS_ITS | Encounter Summary ---
Author Organization [facility] Address [address] [place] [address] Care Team Providers Care Emergency Veterinarian Name Role Phone Dwayne Johnson Unavailable Source Comments In the event this information is protected by the Federal Confidentiality of Alcohol and Drug AbusePatient Records regulations: The Federal rules restrict any use of the information to criminally investigate or prosecute any alcohol or drug abuse patient.[facility] Encounter Details Date Type Department Care Team (Late st Contact Info) Description 02/20/2023 Patient Msg Reproductive Endocrinology Infertility [address] [place] [address] Provider, Ccf Folow Social History [...] is lower risk 7 02/18/2023 Data from: https://www.neighborhoodatlas.medicine.[facility].edu/. Last address used for calculation [...] EDT [facility] Reproductive Endocrinology Infertility [address] [place] [address] Santa No MD [address] [place], [place] [phone] infertility documented as of this encounter Visit Diagnoses Not on filedocumented in this encounter Care Teams Emergency Veterinarian Relationship Specialty Start Date End Date Dwayne Johnson [address] [place] [address] Referring Shallot Packer 10/04/20 documented as of this encounter
--- OUTSIDE RECORDS SUMMARY | 2025-02-09 13:33 | XMS_ITS | Encounter Summary ---
Author Organization [facility] Address [address] [place] [address] Care Team Providers Care Court Bailiff Or Sheriff Name Role Phone Jax Mckeon MD Primary Care Provider [phone] Encounter Details Date Type Department Care Team (Late st Contact Info) Description 01/24/2025 Abstract [facility] OB [address] [facility] [place] [phone] Conor Cortes, DO [address] [facility] [place] [address] Social History Tobacco Use Types Packs/Day Years [...] Industry Job Start Date Job End Date [employer] [employer] board of disabilites Not on file Not on file Not on file documented as of this encounter Plan of Treatment Not on file documented as of this encounter Visit Diagnoses Not on filedocumented in this encounter Care Teams Court Bailiff Or Sheriff Relationship Specialty Start Date End Date Jax Mckeon MD PCP - General Family Medicine 10/16/23 documented as of this encounter
--- OUTSIDE RECORDS SUMMARY | 2025-02-09 13:33 | XMS_ITS | Encounter Summary ---
Author Organization [facility] Address [address] [place] [address] Care Team Providers Care Table Maker Name Role Phone Dwayne Johnson Unavailable [...] Description 08/17/2024 Patient Msg Reproductive Endocrinology Infertility [address] [place] [address] Provider, Ccf Plan 08/17 Social History Tobacco [...] lower risk 7 08/19/2023 Data from: https://www.neighborhoodatlas.medicine.[facility].edu/. Last address used for calculation [address] [...] Info) Description 03/23/2025 10:00 AM EDT [facility] Reproductive Endocrinology Infertility [address] [place] [address] Santa No MD [address] [place], [place] [phone] infertility documented as of this encounter Visit Diagnoses Not on filedocumented in this encounter Care Teams Table Maker Relationship Specialty Start Date End Date Dwayne Johnson [address] [place] [address] Referring Stencil Maker 10/04/20 documented as of this encounter
--- OUTSIDE RECORDS SUMMARY | 2025-02-09 13:33 | XMS_ITS | Encounter Summary ---
Author Organization [facility] Address [address] [place] [address] Care Team Providers Care Geoduck Diver Name Role Phone Dwayne Johnson Unavailable Source Comments In the event this information is protected by the Federal Confidentiality of Alcohol and Drug AbusePatient Records regulations: The Federal rules restrict any use of the information to criminally investigate or prosecute any alcohol or drug abuse patient.[facility] Encounter Details Date Type Department Care Team (Late st Contact Info) Description 07/18/2024 Patient Msg Reproductive Endocrinology Infertility [address] [place] [address] Provider, Ccf Plan 07/18 Social History Tobacco [...] risk 7 08/19/2023 Data from: https://www.neighborhoodatlas.medicine.[facility].edu/. Last address used for calculation [...] Contact Info) Description 03/23/2025 10:00 AM EDT [facility] Reproductive Endocrinology Infertility [address] [place] [address] Santa No MD [address] [place], [place] [phone] infertility documented as of this encounter Visit Diagnoses Not on filedocumented in this encounter Care Teams Geoduck Diver Relationship Specialty Start Date End Date Dwayne Johnson [address] [place] [address] Referring Welder Helper 10/04/20 documented as of this encounter
--- OUTSIDE RECORDS SUMMARY | 2025-02-09 13:33 | XMS_ITS | Encounter Summary ---
Author Organization [facility] Address [address] [place] [address] Care Team Providers Care Grinding Mill Operator Name Role Phone Dwayne Johnson Unavailable Source Comments In the event this information is protected by the Federal Confidentiality of Alcohol and Drug AbusePatient Records regulations: The Federal rules restrict any use of the information to criminally investigate or prosecute any alcohol or drug abuse patient.[facility] Encounter Details Date Type Department Care Team (Latest Contact Info) Description 07/18/2024 Patient Msg Reproductive Endocrinology Infertility [address] [place], [place] [address] Provider, Ccf HCG trigger instructions Social History [...] is lower risk 7 08/19/2023 Data from: https://www.neighborhoodatlas.medicine.[facility].edu/. Last [...] [facility] Reproductive Endocrinology Infertility [address] [place] [address] Santa No MD [address] [place] [place], [place] [phone] infertility documented as of this encounter Visit Diagnoses Not on filedocumented in this encounter Care Teams Grinding Mill Operator Relationship Specialty Start Date End Date Dwayne Johnson [address] [place] [address] Referring Travel Rn 10/04/20 documented as of this encounter
--- OUTSIDE RECORDS SUMMARY | 2025-02-09 13:33 | XMS_ITS | Encounter Summary ---
Author Organization [facility] Address [address] [place] [address] Care Team Providers Care Public Health Advisor Name Role Phone Dwayne Johnson Unavailable Source Comments In the event this information is protected by the Federal Confidentiality of Alcohol and Drug AbusePatient Records regulations: The Federal rules restrict any use of the information to criminally investigate or prosecute any alcohol or drug abuse patient.[facility] Encounter Details Date Type Department Care Team (Latest Contact Info) Description 02/24/2023 Patient Msg Reproductive Endocrinology Infertility [address] [place] [id number] Provider, Ccf Super Ovulation Cycle Social History [...] is lower risk 7 02/18/2023 Data from: https://www.neighborhoodatlas.medicine.[facility].edu/. Last address used for calculation [...] Description 03/23/2025 10:00 AM EDT [facility] Reproductive Endocrinology Infertility [address] [place] [address] Santa No MD [address] [place], [place] [phone] infertility documented as of this encounter Visit Diagnoses Not on filedocumented in this encounter Care Teams Public Health Advisor Relationship Specialty Start Date End Date Dwayne Johnson [address] [place] [address] Referring Fly Worker 10/04/20 documented as of this encounter
--- OUTSIDE RECORDS SUMMARY | 2025-02-09 13:33 | XMS_ITS | Encounter Summary ---
Author Organization [facility] Address [address] [place] [address] Care Team Providers Care Toll Ticket Clerk Name Role Phone Dwayne Johnson Unavailable [...] Description 11/10/2022 Patient Msg Reproductive Endocrinology Infertility [address] [place] [address] Sushila Vee APRN.GOGGLES ASSEMBLER [address] [place] [id number] Next steps Social History Tobacco Use Types [...] N ot on file 09/29/2022 Data from: https://www.neighborhoodatlas.medicine.[facility].edu/. Last address [...] EDT [facility] Reproductive Endocrinology Infertility [address] [place] [address] Santa No MD [address] [place], [place] [phone] infertility documented as of this encounter Visit Diagnoses Not on filedocumented in this encounter Care Teams Toll Ticket Clerk Relationship Specialty Start Date End Date Dwayne Johnson [address] [place] [address] Referring Truer Pinion And Wheel 10/04/20 documented as of this encounter
--- OUTSIDE RECORDS SUMMARY | 2025-02-09 13:33 | XMS_ITS | Encounter Summary ---
Author Organization [facility] Address [address] [place] [address] Care Team Providers Care Plate Painter Name Role Phone Jax Champagne Primary Care Provider [phone] Pcp, No ESTIMATOR JEWELRY Primary Care Provider Dwayne Liu Unavailable Source [...] Description 10/22/2020 Patient Msg Reproductive Endocrinology Infertility [address] [place] [address] Sushila Vee APRN.GRIPS [address] [place] [id number] Follow up Social History Tobacco Use Types [...] on file 10/15/2020 Data from: https://www.neighborhoodatlas.medicine.[facility]/. Last address used for calculation Not on [...] Contact Info) Description 03/23/2025 10:00 AM EDT [facility] Reproductive Endocrinology Infertility [address] [place] [address] Santa No MD [address] [place] [address] infertility documented as of this encounter Visit Diagnoses Not on filedocumented in this encounter Care Teams Plate Painter Relationship Specialty Start Date End Date Jax Champagne PCP - General 03/21/09 03/28/22 Karla Hendrickson APRN PCP - General 03/29/22 10/14/22 Dwayne Johnson [address] [place] [address] Referring Instructor Of Sociology 10/04/20 documented as of this encounter
--- OUTSIDE RECORDS SUMMARY | 2025-02-09 13:33 | XMS_ITS | Encounter Summary ---
Author Organization [facility] Address [address] [place] [address] Care Team Providers Care Newspaper Photo Editor Name Role Phone Dwayne Johnson Unavailable Source Comments In the event this information is protected by the Federal Confidentiality of Alcohol and Drug AbusePatient Records regulations: The Federal rules restrict any use of the information to criminally investigate or prosecute any alcohol or drug abuse patient.[facility] Encounter Details Date Type Department Care Team (Late st Contact Info) Description 07/14/2024 Patient Msg Reproductive Endocrinology Infertility [address] [place], [place] [phone] Provider, Ccf Super Ov Plan Social History [...] risk 7 08/19/2023 Data from: https://www.neighborhoodatlas.medicine.[facility].edu/. Last address used for calculation [...] [facility] Reproductive Endocrinology Infertility [address] [place] [address] Santa No MD [address] [place], [place] [phone] infertility documented as of this encounter Visit Diagnoses Not on filedocumented in this encounter Care Teams Newspaper Photo Editor Relationship Specialty Start Date End Date Dwayne Johnson [address] [place] [address] Referring Area Safety Manager 10/04/20 documented as of this encounter
--- OUTSIDE RECORDS SUMMARY | 2025-02-09 13:33 | XMS_ITS | Encounter Summary ---
Author Organization [facility] Address [address] [place] [address] Care Team Providers Care Vacuum Cleaner Assembler Name Role Phone Dwayne Johnson Unavailable Source Comments In the event this information is protected by the Federal Confidentiality of Alcohol and Drug AbusePatient Records regulations: The Federal rules restrict any use of the information to criminally investigate or prosecute any alcohol or drug abuse patient.[facility] Encounter Details Date Type Department Care Team (Late st Contact Info) Description 03/09/2023 Patient Msg Reproductive Endocrinology Infertility [address] [place] [address] Provider, Ccf SO Information Social [...] is lower risk 7 02/18/2023 Data from: https://www.neighborhoodatlas.medicine.[facility] [...] [facility] Reproductive Endocrinology Infertility [address] [place] [address] Santa No MD [address] [place], [place] [phone] infertility documented as of this encounter Visit Diagnoses Not on filedocumented in this encounter Care Teams Vacuum Cleaner Assembler Relationship Specialty Start Date End Date Dwayne Johnson [address] [place] [address] Referring Bond Broker 10/04/20 documented as of this encounter
--- OUTSIDE RECORDS SUMMARY | 2025-02-09 13:33 | XMS_ITS | Encounter Summary ---
Author Organization [facility] Address [address] [place] [address] Care Team Providers Care Garbage Collection Supervisor Name Role Phone Jax Champagne Primary Care Provider [phone] Pcp, No COKE DRAWER HAND Primary Care Provider Dwayne Liu Unavailable Source [...] 01/01/2021 Get Medical Advice Reproductive Endocrinology Infertility [address] [place] [address] Dmitry Oh MD [address] [place], [place] [phone] Non-Urgent Medical Question Social History Tobacco Use [...] N ot on file 10/15/2020 Data from: https://www.neighborhoodatlas.medicine.[facility]/. Last address used for calculation Not on [...] Contact Info) Description 03/23/2025 10:00 AM EDT [facility] Reproductive Endocrinology Infertility [address] [place] [address] Santa No MD [address] [place], [place] [phone] infertility documented as of this encounter Visit Diagnoses Not on filedocumented in this encounter Care Teams Garbage Collection Supervisor Relationship Specialty Start Date End Date Jax Champagne PCP - General 03/21/09 03/28/22 PcpKarla APRN PCP - General 03/29/22 10/14/22 Dwayne Johnson [address] [place] [address] Referring Film Printer 10/04/20 documented as of this encounter
--- OUTSIDE RECORDS SUMMARY | 2025-02-09 13:33 | XMS_ITS | Encounter Summary ---
Author Organization [facility] Address [address] [place] [address] Care Team Providers Care Division Operations Specialist Name Role Phone Dwayne Johnson Unavailable Source Comments In the event this information is protected by the Federal Confidentiality of Alcohol and Drug AbusePatient Records regulations: The Federal rules restrict any use of the information to criminally investigate or prosecute any alcohol or drug abuse patient.[facility] Encounter Details Date Type Department Care Team (Late st Contact Info) Description 11/03/2023 Get Medical Advice Reproductive Endocrinology Infertility [address] [place] [address] Dmitry Oh MD [address] [place] [address] Work Note Social History Tobacco [...] is lower risk 7 08/19/2023 Data from: https://www.neighborhoodatlas.medicine.[facility].edu/. Last address used for calculation [address] 08/19/2023 Comments Yes Sex and Gender [...] [facility] Reproductive Endocrinology Infertility [address] [place] [address] Santa No MD [address] [place], [place] [phone] infertility documented as of this encounter Visit Diagnoses Not on filedocumented in this encounter Care Teams Division Operations Specialist Relationship Specialty Start Date End Date Dwayne Johnson [address] [place] [address] Referring Business Assistant 10/04/20 documented as of this encounter
--- OUTSIDE RECORDS SUMMARY | 2025-02-09 13:33 | XMS_ITS | Encounter Summary ---
Author Organization [facility] Address [address] [place] [address] Care Team Providers Care K 9 Handler/ Deputy Name Role Phone Dwayne Johnson Unavailable Source Comments In the event this information is protected by the Federal Confidentiality of Alcohol and Drug AbusePatient Records regulations: The Federal rules restrict any use of the information to criminally investigate or prosecute any alcohol or drug abuse patient.[facility] Encounter Details Date Type Department Care Team (Late st Contact Info) Description 11/06/2023 Patient Msg Reproductive Endocrinology Infertility [address] [place], [place] [phone] Provider, Ccf HCG order Social History Tobacco [...] lower risk 7 08/19/2023 Data from: https://www.neighborhoodatlas.medicine.[facility].edu/. Last address used for calculation [...] Contact Info) Description 03/23/2025 10:00 AM EDT [facility] Reproductive Endocrinology Infertility [address] [place] [address] Santa No MD [address] [place] [place] [address] infertility documented as of this [...] filedocumented in this encounter Care Teams K 9 Handler/ Deputy Relationship Specialty Start Date End Date Dwayne Johnson [address] [place] [address] Referring Machine Dyer 10/04/20 documented as of this encounter
--- OUTSIDE RECORDS SUMMARY | 2025-02-09 13:33 | XMS_ITS | Encounter Summary ---
Author Organization [facility] Address [address] [place] [address] Care Team Providers Care Farm General Manager Name Role Phone Jax Mckeon MD Primary Care Provider + [phone] Encounter Details Date Type Department Care Team (Late st Contact Info) Description 02/07/2025 Telephone [facility] [address] [place] [phone] Wandy Holt MA [address] 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 Pt is to repeat HCG labs until <5. Order was sent to [facility]. Pt was notified to have labs drawn until <5. PVU and will not have labs done until the earliest pt stated. Due to the hours she will go . Advised pt will let Doctor Cortes and Sandee Valdovinos know. And to make sure she goes and gets them redrawn until its <5. PVU. documented in this encounter Plan of Treatment Scheduled Orders Name Type Priority Associated Diagnoses Orde r Schedule hCG, quantitative, Lab Routine Status post D&C Miscarriage Expected: 02/07/2025 (Approximate), Expires: 02/07/2026 documented as of this encounter Visit Diagnoses Diagnosis Status post D&C Other postprocedural status Miscarriage Unspecified spontaneous without mention of complication documented in this encounter Care Teams Farm General Manager Relationship Specialty Start Date End Date Jax Mckeon MD PCP - General Family Medicine 10/16/23 documented as of this encounter
--- OUTSIDE RECORDS SUMMARY | 2025-02-09 13:33 | XMS_ITS | Encounter Summary ---
Author Organization [facility] Address [address] [place] [address] Care Team Providers Care Workers Compensation Claims Adjuster Name Role Phone Dwayne Johnson Unavailable Source [...] 11/10/2022 Get Medical Advice Reproductive Endocrinology Infertility [address] [place] [address] Sushila Vee APRN.DINKEY ENGINE MECHANIC [address] [place] [address] Clarification Social History Tobacco Use Types Packs/Day [...] N ot on file 09/29/2022 Data from: https://www.neighborhoodatlas.medicine.[facility].edu/. Last address used for calculation [...] EDT [facility] Reproductive Endocrinology Infertility [address] [place] [address] Santa No MD [address] [place], [place] [phone] infertility documented as of this encounter Visit Diagnoses Not on filedocumented in this encounter Care Teams Workers Compensation Claims Adjuster Relationship Specialty Start Date End Date Dwayne Johnson [address] [place] [address] Referring Electrical Superintendent 10/04/20 documented as of this encounter
--- OUTSIDE RECORDS SUMMARY | 2025-02-09 13:33 | XMS_ITS | Encounter Summary ---
Author Organization [facility] Address [address] [place] [address] Care Team Providers Care Cost Control Supervisor Name Role Phone Jax Mckeon MD Primary Care Provider [phone] Encounter Details Date Type Department Care Team (Late st Contact Info) Description 01/24/2025 Results Follow-Up [facility] OB [address] [place] [address] Meagan Sales, CNM [address] [place], [place] [phone] Social History Tobacco Use Types Packs/Day Years [...] Industry Job Start Date Job End Date [employer] of [employer]abilites Not on file Not on file Not on file documented as of this encounter Plan of Treatment Not on file documented as of this encounter Visit Diagnoses Not on filedocumented in this encounter Care Teams Cost Control Supervisor Relationship Specialty Start Date End Date Jax Mckeon MD PCP - General Family Medicine 10/16/23 documented as of this encounter
--- OUTSIDE RECORDS SUMMARY | 2025-02-09 13:33 | XMS_ITS | Encounter Summary ---
Author Organization [facility] Address [address] [place] [address] Care Team Providers Care Oil Well Perforator Operator Name Role Phone Dwayne Johnson Unavailable Source Comments In the event this information is protected by the Federal Confidentiality of Alcohol and Drug AbusePatient Records regulations: The Federal rules restrict any use of the information to criminally investigate or prosecute any alcohol or drug abuse patient.[facility] Encounter Details Date Type Department Care Team (Late st Contact Info) Description 12/22/2022 Get Medical Advice Reproductive Endocrinology Infertility [address] [place] [address] Dmitry Oh MD [address] [place] [address] Next Steps Social History Tobacco [...] N ot on file 09/29/2022 Data from: https://www.neighborhoodatlas.medicine.[facility].edu/. Last address used for calculation [...] Info) Description 03/23/2025 10:00 AM EDT [facility] Reproductive Endocrinology Infertility [address] [place] [address] Santa No MD [address] [place], [place] [address] infertility documented as of this encounter Visit Diagnoses Not on filedocumented in this encounter Care Teams Oil Well Perforator Operator Relationship Specialty Start Date End Date Dwayne Johnson [address] [place] [address] Referring Strategic Intelligence Officer 10/04/20 documented as of this encounter
--- OUTSIDE RECORDS SUMMARY | 2025-02-09 13:33 | XMS_ITS | Encounter Summary ---
Author Organization [facility] Address [address] [place] [address] Care Team Providers Care Television Camera Operator Name Role Phone Jax Mckeon MD Primary Care Provider [phone] Encounter Details Date Type Department Care Team (Late st Contact Info) Description 01/24/2025 Abstract [facility] [address] [place] [phone] Conor Cortes, DO [address] [place] [address] Social History Tobacco Use Types Packs/Day Years [...] Industry Job Start Date Job End Date [employer] of disabilites Not on file Not on file Not on file documented as of this encounter Plan of Treatment Not on file documented as of this encounter Visit Diagnoses Not on filedocumented in this encounter Care Teams Television Camera Operator Relationship Specialty Start Date End Date Jax Mckeon MD PCP - General Family Medicine 10/16/23 documented as of this encounter
--- OUTSIDE RECORDS SUMMARY | 2025-02-09 13:33 | XMS_ITS | Encounter Summary ---
Author Organization [facility] Address [address] [place] [address] Care Team Providers Care Correspondence Section Supervisor Name Role Phone Jax Mckeon MD Primary Care Provider [phone] Encounter Details Date Type Department Care Team (Late st Contact Info) Description 01/26/2025 Abstract [facility] OB [address] [place] [address] Miryam Green MA Social History Tobacco [...] Job Start Date Job End Date [employer] of disabilites Not on file Not on file Not on file documented as of this encounter Plan of Treatment Not on file documented as of this encounter Visit Diagnoses Not on filedocumented in this encounter Care Teams Correspondence Section Supervisor Relationship Specialty Start Date End Date Jax Mckeon MD PCP - General Family Medicine 10/16/23 documented as of this encounter
--- OUTSIDE RECORDS SUMMARY | 2025-02-09 13:33 | XMS_ITS | Encounter Summary ---
Author [id number] [place] [address] Care Team Providers Care Finisher Denture Name Role Phone Jesus Berumen MD Primary Care Provider [phone] Reason for Visit * Reason Onset Date Comments Med Refill 2019 Encounter Details Date Type Department Care Team (Late st Contact Info) Description 2019 Refill [facility] [address] [place] [address] Ryan Oro LPN Social History Tobacco Use [...] do not want this to be a intermediate medication, how is hare abdominal pain doing? [...] EST Office Visit [facility] [address] [place] [address] [place] [address] [place] [address] documented as of this encounter Visit [...] documented as of this encounter Care Teams Finisher Denture Relationship Specialty Start Date End Date Jesus Berumen MD [address] [place] [address] PCP - General Internal Medicine 01/24/25 documented as of this encounter
--- OUTSIDE RECORDS SUMMARY | 2025-02-09 13:33 | XMS_ITS | Encounter Summary ---
Author Organization [facility] Address [address] [place] [address] Care Team Providers Care Door Framer Name Role Phone Dwayne Johnson Unavailable Source Comments In the event this information is protected by the Federal Confidentiality of Alcohol and Drug AbusePatient Records regulations: The Federal rules restrict any use of the information to criminally investigate or prosecute any alcohol or drug abuse patient.[facility] Encounter Details Date Type Department Care Team (Late st Contact Info) Description 09/12/2024 Patient Msg Reproductive Endocrinology Infertility [address] [place], [place] [phone] Provider, Ccf plan for 09/12/24 Social History [...] lower risk 7 08/19/2023 Data from: https://www.neighborhoodatlas.medicine.[facility].edu/. Last address used for calculation [address] [...] Description 03/23/2025 10:00 AM EDT [facility] Reproductive Endocrinology Infertility [address] [place] [address] Santa No MD [address] [place], [place] [address] infertility documented as of this encounter Visit Diagnoses Not on filedocumented in this encounter Care Teams Door Framer Relationship Specialty Start Date End Date Dwayne Johnson: [id number] [address] [place] [address] Referring Signal Manager 10/04/20 documented as of this encounter
--- OUTSIDE RECORDS SUMMARY | 2025-02-09 13:33 | XMS_ITS | Encounter Summary ---
Author Organization [facility] Address [address] [place] [address] Care Team Providers Care Boat Hand Name Role Phone Dwayne Johnson Unavailable Source [...] 10/16/2023 Patient Msg Reproductive Endocrinology Infertility [address] [place] [phone] Dmitry Oh MD [address] [place] [address] Appointment Cancellation Request Social History [...] is lower risk 7 08/19/2023 Data from: https://www.neighborhoodatlas.medicine.[facility].edu/. Last address used for calculation [address] 08/19/2023 Comments Yes Sex and Gender [...] Contact Info) Description 03/23/2025 10:00 AM EDT [facility] Reproductive Endocrinology Infertility [address] [place] [address] Santa No MD [address] [place], [place] [phone] infertility documented as of this encounter Visit Diagnoses Not on filedocumented in this encounter Care Teams Boat Hand Relationship Specialty Start Date End Date Dwayne Johnson [address] [place] [address] Referring Weapons Engineer 10/04/20 documented as of this encounter
--- OUTSIDE RECORDS SUMMARY | 2025-02-09 13:33 | XMS_ITS | Encounter Summary ---
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 documented in this encounter Plan of Treatment Not on file documented as of this encounter Visit Diagnoses Not on filedocumented in this encounter Care Teams Bus Monitor Relationship Specialty Start Date End Date Jax Mckeon MD PCP - General Family Medicine 10/16/23 documented as of this encounter
--- OUTSIDE RECORDS SUMMARY | 2025-02-09 13:33 | XMS_ITS | Encounter Summary ---
Author Organization [facility] Address [address] [place] [address] Care Team Providers Care Propagation Worker Name Role Phone Dwayne Johnson Unavailable Source Comments In the event this information is protected by the Federal Confidentiality of Alcohol and Drug AbusePatient Records regulations: The Federal rules restrict any use of the information to criminally investigate or prosecute any alcohol or drug abuse patient.[facility] Encounter Details Date Type Department Care Team (Latest Contact Info) Description 04/17/2023 Patient Msg Reproductive Endocrinology Infertility [address] [place], [place] [phone] Provider, Ccf Questionnaire Submission Social History Tobacco [...] is lower risk 7 02/18/2023 Data from: https://www.neighborhoodatlas.medicine.[facility].edu/. Last address used for calculation [address] [...] 03/23/2025 10:00 AM EDT [facility] Reproductive Endocrinology Infertility [address] [place] [address] Santa No MD [address] [place], [place] [phone] infertility documented as of this encounter Visit Diagnoses Not on filedocumented in this encounter Care Teams Propagation Worker Relationship Specialty Start Date End Date Dwayne Johnson [address] [place] [address] Referring Bioprocessing Manufacturing Technician 10/04/20 documented as of this encounter
--- OUTSIDE RECORDS SUMMARY | 2025-02-09 13:33 | XMS_ITS | Encounter Summary ---
Author Organization [facility] Address [address] [place] [address] Care Team Providers Care Boilers Inspector Name Role Phone Dwayne Johnson Unavailable Source Comments In the event this information is protected by the Federal Confidentiality of Alcohol and Drug AbusePatient Records regulations: The Federal rules restrict any use of the information to criminally investigate or prosecute any alcohol or drug abuse patient.[facility] Encounter Details Date Type Department Care Team (Late st Contact Info) Description 12/22/2022 Get Medical Advice Reproductive Endocrinology Infertility [address] [place] [address] Dmitry Oh MD [address] [place] [address] Next Steps Social History Tobacco [...] N ot on file 09/29/2022 Data from: https://www.neighborhoodatlas.medicine.[facility].edu/. Last address used for calculation [address] [...] EDT [facility] Reproductive Endocrinology Infertility [address] [place] [address] Santa No MD [address] [place], [place] [phone] infertility documented as of this encounter Visit Diagnoses Not on filedocumented in this encounter Care Teams Boilers Inspector Relationship Specialty Start Date End Date Dwayne Johnson [address] [place] [address] Referring Home Security Alarm Installer 10/04/20 documented as of this encounter
--- OUTSIDE RECORDS SUMMARY | 2025-02-09 13:33 | XMS_ITS | Encounter Summary ---
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 Not on file Not on file documented as of this encounter Plan of Treatment Not on file documented as of this encounter Procedures Procedure Name Priority Date/Time Associated Diagnosis Comments [facility] PREG QUANT HCG Routine 02/02/2025 4: 34 PM EDT ALL CBC WITH AUTO DIFF Routine 02/02/2025 4:34 PM EDT documented in this encounter Results * [facility]H PREG QUANT HCG (02/02/2025 4:34 PM EDT) HCG QUANTITATIVE 12 mIU/mL TBH Comment: 5-50 0.2-1 WEEK 50-500 1-2 WEEKS 100-5,000 2-3 WEEKS 500-10,000 3-4 WEEKS 1,000-50,000 4-5 WEEKS 10,000-100,000 5-6 WEEKS 15,000-200,000 6-8 WEEKS 10,000-100,000 2-3 MONTHS 02/02/2025 4:34 PM EDT 02/02/2025 4:34 PM EDT Narrative CLINISY[facility] - 02/02/2025 5:02 PM EDT us Conor Sophia DO CLINISYNC Final Result [facility] * (ABNORMAL) ALL CBC WITH AUTO DIFF (02/02/2025 4:34 PM EDT) [facility] TB WBC 11.3(H) 4.0 - 11.0 10 3/uL TBH TB RBC 4.42 4.20 - 5.40 10 6/uL TBH TB HGB 13.6 12.0 - 16.0 g/dL TB TB HCT 39.5 36.0 - 48.0 % TBH TB MCV 89.4 81.0 - 99.0 fL TB TB MCH 30.8 26.7 - 34.0 pg TBH TB MCHC 34.4 29.9 - 35.2 g/dL TB TB RDW 13.0 11.0 - 15.0 % TBH TBH PLT 326 150 - 450 10 3/uL TBH TB MPV 8.4(L) 9.5 - 13.5 fL TBH NEUTROPHILS PERCENT AUTO 55.6 43.0 - 75.0 % TBH LYMPHOCYTES PERCENT AUTO 31.5 20.5 - 60.0 % TBH MONOCYTES PERCENT AUTO 9.2 1.7 - 12.0 % TBH TBH EO % 2.3 0.9 - 7.0 % TBH BASOPHILS PERCENT AUTO 0.6 0.2 - 2.0 % TBH IMMATURE GRANULOCYTES PCT AUTO 0.8(H) 0.0 - 0.5 % TBH NEUTROPHILS ABSOLUTE AUTO 6.3 1.4 - 6.5 10 3/uL TBH LYMPHOCYTES ABSOLUTE AUTO 3.6 1.2 - 3.8 10 3/uL TBH MONOCYTES ABSOLUTE AUTO 1.0(H) 0.3 - 0.8 10 3/uL TBH TBH EO # 0.3 0.0 - 0.7 10 3/uL TBH BASOPHILS ABSOLUTE AUTO 0.1 0.0 - 0.1 10 3/uL TBH IMMATURE GRANULOCYTES ABS AUTO 0.09(H) 0.00 - 0.03 10 3/uL TBH 02/02/2025 4:34 PM EDT 02/02/2025 4:34 PM EDT Narrative CLINISYNC - 02/02/2025 4:38 PM EDT Sandee MELLO [facility] documented in this encounter Visit Diagnoses Not on filedocumented in this encounter Care Teams Pneumatic Tool Repairer Relationship Specialty Start Date End Date Jax Mckeon MD PCP - General Family Medicine 10/16/23 documented as of this encounter
--- OUTSIDE RECORDS SUMMARY | 2025-02-09 13:33 | XMS_ITS | Encounter Summary ---
Author Organization [facility] Address [address] [place] [address] Care Team Providers Care Slot Operations Manager Name Role Phone Dwayne Johnson Unavailable Source Comments In the event this information is protected by the Federal Confidentiality of Alcohol and Drug AbusePatient Records regulations: The Federal rules restrict any use of the information to criminally investigate or prosecute any alcohol or drug abuse patient.[facility] Encounter Details Date Type Department Care Team (Late st Contact Info) Description 11/28/2022 Patient Msg Reproductive Endocrinology Infertility [address] [place] [address] Sushila Vee APRN.KNIFE OPERATOR [address] [place] [id number] Medication Social History Tobacco Use Types Packs/Day [...] N ot on file 09/29/2022 Data from: https://www.neighborhoodatlas.medicine.[facility].edu/. Last address used for calculation [...] [facility] Reproductive Endocrinology Infertility [address] [place] [address] Santa No MD [address] [place], [place] [phone] infertility documented as of this encounter Visit Diagnoses Not on filedocumented in this encounter Care Teams Slot Operations Manager Relationship Specialty Start Date End Date Dwayne Johnson [address] [place] [address] Referring Warp Splitter 10/04/20 documented as of this encounter
--- OUTSIDE RECORDS SUMMARY | 2025-02-09 13:33 | XMS_ITS | Encounter Summary ---
Author Organization [facility] Address [address] [place] [address] Care Team Providers Care Artificial Teeth Inspector Name Role Phone Dwayne Johnson Unavailable Source Comments In the event this information is protected by the Federal Confidentiality of Alcohol and Drug AbusePatient Records regulations: The Federal rules restrict any use of the information to criminally investigate or prosecute any alcohol or drug abuse patient.[facility] Encounter Details Date Type Department Care Team (Late st Contact Info) Description 11/07/2022 Patient Msg Reproductive Endocrinology Infertility [address] [place] [address] Sushila Vee APRN.DYED YARN OPERATOR [address] [place] [id number] Next steps Social History Tobacco Use Types [...] on file 09/29/2022 Data from: https://www.neighborhoodatlas.medicine.[facility].edu/. Last address used for calculation [...] AM EDT [facility] Reproductive Endocrinology Infertility [address] [place] [address] Santa No MD [address] [place], [place] [phone] infertility documented as of this encounter Visit Diagnoses Not on filedocumented in this encounter Care Teams Artificial Teeth Inspector Relationship Specialty Start Date End Date Dwayne Johnson [address] [place] [address] Referring Commercial Technician 10/04/20 documented as of this encounter
--- OUTSIDE RECORDS SUMMARY | 2025-02-09 13:33 | XMS_ITS | Encounter Summary ---
Author Organization [facility] Address [address] [place] [address] Care Team Providers Care Type Copyist Name Role Phone Dwayne Johnson Unavailable Source [...] Description 10/05/2023 Patient Msg Reproductive Endocrinology Infertility [address] [place] [place] [address] Sushila Vee APRN.E COMMERCE RETAILER [address] [place] [id number] Congratulations!!! Social History Tobacco Use Types Packs/Day [...] is lower risk 7 08/19/2023 Data from: https://www.neighborhoodatlas.medicine.[facility].edu/. Last address used for calculation [address] [facility] 08/19/2023 Comments Yes Sex and Gender Information [...] [facility] Reproductive Endocrinology Infertility [address] [place] [address] Santa No MD [address] [place], [place] [phone] infertility documented as of this encounter Visit Diagnoses Not on filedocumented in this encounter Care Teams Type Copyist Relationship Specialty Start Date End Date Dwayne Johnson [address] [place] [address] Referring Medical Claims Analyst 10/04/20 documented as of this encounter
--- OUTSIDE RECORDS SUMMARY | 2025-02-09 13:33 | XMS_ITS | Encounter Summary ---
Author Organization [facility] Address [address] [place] [address] Care Team Providers Care Utility Inspector Name Role Phone Dwayne Johnson Unavailable [...] Info) Description 10/23/2023 Patient Msg Maternal Medicine [address] [place], [place] [phone] Provider, Ccf Work Letter Social History Tobacco [...] is lower risk 7 08/19/2023 Data from: https://www.neighborhoodatlas.medicine.[facility].edu/. Last address used for calculation [address] [...] Contact Info) Description 03/23/2025 10:00 AM EDT [facility] Reproductive Endocrinology Infertility [address] [place] [address] Santa No MD [address] [place] [place], [place] [phone] infertility documented as of this encounter Visit Diagnoses Not on filedocumented in this encounter Care Teams Utility Inspector Relationship Specialty Start Date End Date Dwayne Johnson [address] [place] [address] Referring Lead Custodian 10/04/20 documented as of this encounter
--- OUTSIDE RECORDS SUMMARY | 2025-02-09 13:33 | XMS_ITS | Encounter Summary ---
Author Organization [facility] Address [address] [place] [address] Care Team Providers Care Tree Surgeon Helper Name Role Phone Dwayne Johnson Unavailable Source Comments In the event this information is protected by the Federal Confidentiality of Alcohol and Drug AbusePatient Records regulations: The Federal rules restrict any use of the information to criminally investigate or prosecute any alcohol or drug abuse patient.[facility] Encounter Details Date Type Department Care Team (Latest Contact Info) Description 04/17/2023 Get Medical Advice Reproductive Endocrinology Infertility [address] [place] [address] Dmitry Oh MD [address] [place] [address] Previous HSG Results Social History [...] is lower risk 7 02/18/2023 Data from: https://www.neighborhoodatlas.medicine.[facility].edu/. Last address used for calculation [address] 02/18/2023 Comments No Sex and Gender [...] Description 03/23/2025 10:00 AM EDT [facility] Reproductive Endocrinology Infertility [address] [place] [address] Santa No MD [address] [place], [place] [phone] infertility documented as of this encounter Visit Diagnoses Not on filedocumented in this encounter Care Teams Tree Surgeon Helper Relationship Specialty Start Date End Date Dwayne Johnson [address] [place] [address] Referring Hose Suspender Cutter 10/04/20 documented as of this encounter
--- OUTSIDE RECORDS SUMMARY | 2025-02-09 13:33 | XMS_ITS | Encounter Summary ---
Author Organization [facility] Address [address] [place] [address] Care Team Providers Care Medical Sonographer Name Role Phone Dwayne Johnson Unavailable Source [...] Advice Reproductive Endocrinology Infertility [address] [place] [address] Dmitry Oh MD [address] [place] [address] Metformin Social History Tobacco Use [...] is lower risk 7 08/19/2023 Data from: https://www.neighborhoodatlas.medicine.[facility].edu/. Last address used for calculation [address] 08/19/2023 Comments No Sex and Gender [...] Info) Description 03/23/2025 10:00 AM EDT [facility] Reproductive Endocrinology Infertility [address] [place] [address] Santa No MD [address] [place], [place] [phone] infertility documented as of this encounter Visit Diagnoses Not on filedocumented in this encounter Care Teams Medical Sonographer Relationship Specialty Start Date End Date Dwayne Johnson [address] [place] [address] Referring Inspector Chief 10/04/20 documented as of this encounter
--- OUTSIDE RECORDS SUMMARY | 2025-02-09 13:33 | XMS_ITS | Encounter Summary ---
Author Organization [facility] Address [address] [place] [address] Care Team Providers Care Regional Account Manager Name Role Phone Dwayne Johnson Unavailable Source Comments In the event this information is protected by the Federal Confidentiality of Alcohol and Drug AbusePatient Records regulations: The Federal rules restrict any use of the information to criminally investigate or prosecute any alcohol or drug abuse patient.[facility] Encounter Details Date Type Department Care Team (Late st Contact Info) Description 02/18/2023 Get Medical Advice Reproductive Endocrinology Infertility [address] [place] [address] Dmitry Oh MD [address] [place] [address] Appointment Social History Tobacco Use [...] Last address used for calculation [address] 02/18/2023 Comments No Sex and Gender [...] AM EDT [facility] Reproductive Endocrinology Infertility [address] [place] [address] Santa No MD [address] [place], [place] [phone] infertility documented as of this encounter Visit Diagnoses Not on filedocumented in this encounter Care Teams Regional Account Manager Relationship Specialty Start Date End Date Dwayne Johnson [address] [place] [address] Referring Financial Services Agent 10/04/20 documented as of this encounter
--- OUTSIDE RECORDS SUMMARY | 2025-02-09 13:34 | XMS_ITS | Encounter Summary ---
Author Organization [facility] Address [address] [place] [address] Care Team Providers Care Seismograph Chief Name Role Phone Dwayne Johnson Unavailable Source [...] Description 10/19/2024 Patient Msg Reproductive Endocrinology Infertility [address] [place], [place] [phone] Provider, Ccf Plan 2 Social History Tobacco [...] is lower risk 7 08/19/2023 Data from: https://www.neighborhoodatlas.medicine.[facility].edu/. Last address used for calculation [...] [facility] Rep[facility]ductive Endocr[facility]ology Infertility [address] [place] [address] Santa No MD [address] [place], [place] [phone] infertility documented as of this encounter Visit Diagnoses Not on filedocumented in this encounter Care Teams Seismograph Chief Relationship Specialty Start Date End Date Dwayne Johnson [address] [place] [address] Referring Loop Puller 10/04/20 documented as of this encounter
--- OUTSIDE RECORDS SUMMARY | 2025-02-09 13:34 | XMS_ITS | Clinical Summary ---
Author Organization [employer] Address [id number] [address] [place] [address] Care Team Providers Care Air Quality Specialist Name Role Phone Jesus Berumen MD Primary Care Provider Allergies Active Allergy [...] Orders Only [facility] [address] [place] [address] External, Scanning Provider 12/06/2024 10:15 AM EDT Office Visit [facility] [address] [place] [address] Abida Duckworth APRN-ADELE Inclusion cyst (Primary Dx) 12/06/2024 Travel 11/22/2024 8:19 PM EDT - 11/22/2024 11:59 PM EDT Hospital Encounter [facility] [address] [place] [address] Discharge Disposition: Home 11/22/2024 8:30 AM EDT Office Visit [facility] [address] [place] [address] Millie Mercer MD Inclusion cyst (Primary Dx) 11/22/2024 Travel from Last 3 Months Immunizations Immunization [...] EST Office Visit [facility] [address] [place] [address] Jesus Berumen MD [address] [place] [address] Health Maintenance Due Date Last Done Comments [...] PATHOLOGY Routine 11/22/2024 9: 11 PM EDT from Last 3 Months Results * Ultrasound pelvic with transvaginal (01/24/2025 10:08 AM EDT) Anatomical Region Laterality Modality Body, Pelvis Ultrasound us Scanning Provider External IMG US ORDERABLES Fin al Result * Surgical Pathology (11/22/2024 9:11 PM EDT) Skin cyst 11/22/2024 9:11 PM EDT 11/22/2024 9:11 PM EDT Narrative COPATH - 11/29/2024 10:08 AM EDT [facility] [address] [place] [address] Surgical Pathology Consultation Patient Name:TIN ARIZMENDI:1985 (Age: 39)Gender:FTaken:11/22/2024Reported:11/29/2024Physician(s):Millie Mercer MD ([phone])Copy To: Rec. #:[id number]: #[id number] Final Pathologic Diagnosis Skin and soft tissue, abdomen, excisional biopsy: Benign epidermal/epidermoid inclusion cyst (one), ruptured, with marked acute inflammation, mild chronic inflammation and granulation tissue, abdomen. Report Electronically Signed Out w/11/29/2024IRLETTY SANCHEZ MD Interpretation performed at [facility], [address] [place] [address], License number: [id number]. Clinical History Inclusion cyst L72.0. Gross Description Received in formalin labeled KRUMNOW, abdominal cyst is a pale-moreno wrinkled ellipse of skin, 2.3 x 1.1 x 0.1 cm. No lesion or area of discoloration is definitively identified. The resection margin is inked green. The specimen is serially sectioned to reveal a cystic structure filled with friable vegetative material. Two sales representative rural power cross sections are submitted in a single cassette. (1, ns, [id number],m8.1) DM. dm/11/23/2024NSK Specimen(s) Received Left abdomen Fee Codes(s): 1; 872[address] Millie Mercer MD PATHOLOGY/CYTOLOGY ORDERAB LES Final Result COPATH from Last 3 Months Insurance [employer] Care Teams Air Quality Specialist Relationship Specialty Start Date End Date Jesus Berumen MD [address] [place], [place] [phone] PCP - General Internal Medicine 01/24/25
--- OUTSIDE RECORDS SUMMARY | 2025-02-09 13:34 | XMS_ITS | Encounter Summary ---
Author Organization [facility] Address [address] [place] [address] Care Team Providers Care Child Care Cook Name Role Phone Dwayne Johnson Unavailable Source [...] Description 09/20/2024 Patient Msg Reproductive Endocrinology Infertility [address] [place], [place] [phone] Provider, Ccf plan for 09/20/24 Social History [...] lower risk 7 08/19/2023 Data from: https://www.neighborhoodatlas.medicine.[facility].edu/. Last address used for calculation [address] [...] AM EDT [facility] Reproductive Endocrinology Infertility [address] [place] [address] Santa No MD [address] [place], [place] [phone] infertility documented as of this encounter Visit Diagnoses Not on filedocumented in this encounter Care Teams Child Care Cook Relationship Specialty Start Date End Date Dwayne Johnson: [phone] [address] [place] [address] Referring Core Feeder 10/04/20 documented as of this encounter
--- OUTSIDE RECORDS SUMMARY | 2025-02-09 13:34 | XMS_ITS | Encounter Summary ---
[facility] [facility] Address [id number] [address] [place] [address] Care Team Providers Care Account Manager B2B Name Role Phone Jesus Berumen MD Primary Care Provider [phone] Encounter Details Date Type Department Care Team ([facility] st Contact Info) Description 03/08/2024 [facility]phone [facility] [address] [address] Lila Edmonds Social History Tobacco [...] EST Office Visit [facility] [address] [place] [phone] Jesus Berumen MD [address] [place] [phone] documented as of this encounter Visit Diagnoses Not on filedocumented in this encounter Additional Health Concerns Assessment Noted Time PHQ-9 Depression Total Score: 0 11/20/19 24 7:00 AM EST A Body Mass Index follow-up plan has been documented for the patient 10/31/2019 12:28 PM EST documented as of this encounter Care Teams Account Manager B2B Relationship Specialty Start Date End Date Jesus Berumen MD [address] [place] [address] PCP - General Internal Medicine 01/24/25 documented as of this encounter
--- OUTSIDE RECORDS SUMMARY | 2025-02-09 13:34 | XMS_ITS | Encounter Summary ---
[id number] [address] [place] [address] Care Team Providers Care Piano Case Maker Name Role Phone Jesus Berumen MD Primary Care Provider [phone] Encounter Details Date Type Department Care Team ([facility] st Contact Info) Description 02/29/2024 Telephone [facility] Pulmonary/Sleep Medicine [address] [address] Lila Edmonds Social History Tobacco [...] EST Office Visit [facility] [address] [place] [phone] Jesus Berumen MD [address] [place] [address] documented as of this encounter Visit Diagnoses Not on filedocumented in this encounter Additional Health Concerns Assessment Noted Time PHQ-9 Depression Total Score: 0 11/20/19 24 7:00 AM EST A Body Mass Index follow-up plan has been documented for the patient 10/31/2019 12:28 PM EST documented as of this encounter Care Teams Piano Case Maker Relationship Specialty Start Date End Date Jesus Berumen MD [address] [place] [address] [phone] PCP - General Internal Medicine 01/24/25 documented as of this encounter
--- OUTSIDE RECORDS SUMMARY | 2025-02-09 13:34 | XMS_ITS | Encounter Summary ---
Author Organization [facility] Address [address] [place] [address] Care Team Providers Care Repairer Kiln Car Name Role Phone Dwayne Johnson Unavailable Source Comments In the event this information is protected by the Federal Confidentiality of Alcohol and Drug AbusePatient Records regulations: The Federal rules restrict any use of the information to criminally investigate or prosecute any alcohol or drug abuse patient.[facility] Encounter Details Date Type Department Care Team (Late st Contact Info) Description 10/12/2024 Patient Msg Reproductive Endocrinology Infertility [address] [place], [place] [phone] Provider, Ccf plan for 10/12/24 Social History [...] is lower risk 7 08/19/2023 Data from: https://www.neighborhoodatlas.medicine.[facility].edu/. Last address used for calculation [address] [...] [facility] Reproductive Endocrinology Infertility [address] [place] [address] Santa No MD [address] [place], [place] [phone] infertility documented as of this encounter Visit Diagnoses Not on filedocumented in this encounter Care Teams Repairer Kiln Car Relationship Specialty Start Date End Date Dwayne Johnson: [phone] [address] [place] [address] Referring Gasoline Pump Mechanic 10/04/20 documented as of this encounter
--- OUTSIDE RECORDS SUMMARY | 2025-02-09 13:34 | XMS_ITS | Encounter Summary ---
Author Organization [facility] Address [address] [place] [address] Care Team Providers Care Package Dye Stand Loader Name Role Phone Dwayne Johnson Unavailable [...] Description 09/19/2024 Patient Msg Reproductive Endocrinology Infertility [address] [place], [place] [phone] Provider, Ccf plan for 09/19/24 Social History [...] Last address used for calculation [address] 08/19/2023 Comments No Sex and Gender [...] Contact Info) Description 03/23/2025 10:00 AM EDT [facility] Reproductive Endocrinology Infertility [address] [place] [address] Santa No MD [address] [place] [place], [place] [phone] infertility documented as of this encounter Visit Diagnoses Not on filedocumented in this encounter Care Teams Package Dye Stand Loader Relationship Specialty Start Date End Date Dwayne Johnson: [phone] [address] [place] [address] Referring Senior Business Development Analyst 10/04/20 documented as of this encounter
--- OUTSIDE RECORDS SUMMARY | 2025-02-09 13:34 | XMS_ITS | Clinical Summary ---
Author Organization [facility] Address [address] [place] [address] Care Team Providers Care Pelletising Extruder Operator Name Role Phone Dwayne Johnson Unavailable Allergies [...] Description 01/18/2025 Patient Msg Reproductive Endocrinology Infertility [address] [place] [address] Kerry Weiner PA-C Following up 01/09/2025 10:40 AM EDT Nurse Visit Reproductive Endocrinology Infertility [address] [place] [address] Encounter for test, result positive (HCC) 01/09/2025 Orders Only Reproductive Endocrinology Infertility [address] [place] [address] Sushila Vee, ANGELITA.BIOANALYST with inconclusive viability, single or unspecified fetus (HCC) (Primary Dx) 12/30/2024 10:10 AM EDT Nurse Visit Reproductive Endocrinology Infertility [address] [place] [address] Encounter for test, result positive (HCC) 12/23/2024 Travel 12/16/2024 2:[address] [facility] Reproductive Endocrinology Infertility [address] [place] [address] Kerry Weiner PA-C Encounter for test, result positive (HCC) (Primary Dx) 12/15/2024 Results Follow-Up Reproductive Endocrinology Infertility [address] [place] [address] Kerry Weiner PA-C 12/13/2024 Results Follow-Up Reproductive Endocrinology Infertility [address] [place] [address] Sushila Vee APRN.BIOANALYST 12/09/2024 Telephone Reproductive Endocrinology Infertility [address] [place] [address] Augusto Tracy MD +hpt on darwin re labwork; Wen / Malu please call pt re +hpt 12/09/2024 Telephone Reproductive Endocrinology Infertility [address] [place] [address] Augusto Tracy MD +hpt lmp 11/11 did super ov cycle req labwork 11/25/2024 7:00 AM EDT Procedure Reproductive Endocrinology Infertility [address] [place] [address] Infertility 11/25/2024 Telephone Reproductive Endocrinology Infertility [address] [place] [address] Self progesterone shots 11/25/2024 Patient Msg Reproductive Endocrinology Infertility [address] [place] [address] Provider, Ccf Super OV Plan 11/25/24 11/24/2024 7:40 AM EDT Procedure Reproductive Endocrinology Infertility [address] [place] [address] Infertility 11/24/2024 Patient Msg Reproductive Endocrinology Infertility [address] [place] [address] Provider, Ccf plan for 11/24/24 11/21/2024 8:20 AM EDT Procedure Reproductive Endocrinology Infertility [address] [place] [address] Infertility 11/21/2024 Patient Msg Reproductive Endocrinology Infertility [address] [place] [address] Provider, Ccf plan for 11/21/24 11/21/2024 Travel 11/14/2024 7:40 AM EST Procedure Reproductive Endocrinology Infertility [address] [place] [address] 11/14/2024 Telephone Reproductive Endocrinology Infertility [address] [place] [address] Augusto Tracy MD needs letrozole today 11/14/2024 Patient Msg Reproductive Endocrinology Infertility [address] [place] [address] Provider, Ccf plan for 11/14/24 11/11/2024 Telephone Reproductive Endocrinology Infertility [address] [place] [address] Augusto Tracy MD Appointment from Last 3 Months Family History Medical [...] lower risk 7 08/19/2023 Data from: https://www.neighborhoodatlas.medicine.[facility].edu/. Last address used for calculation [address] [facility][1] 08/19/2023 Comments No Sex and Gender Information [...] [facility] Reproductive Endocrinology Infertility [address] [place] [address] Santa No MD [address] [place], [place] [phone] infertility Health Maintenance Due Date Last Done Comments Annual PCP Team Chronic Dise ase Visit 11/17/2003 Anxiety Screening 11/17/2003 BP Controlled (<130/80) 11/17/2003 Depression Screening 11/17/2003 HIV Screening 11/17/2003 Hepatitis C Screening 11/17/2003 DTaP,Tdap,Td Vaccine (1 - Tdap) 2004 Hepatitis B Vaccine (1 of 3 - 19+ 3-dose series) 2004 Covid-19 Vaccine (2023-2 5 season) 2024 Cervical Cancer Screening 01/20/2025 [...] ) <5.0 mIU/mL 01/09/2025 12:38 PM EDT [facility] Comment: QUANTITATIVE HCG NORMAL RANGES Weeks of Gestation (Weeks Since LMP) 3 Weeks (5.8-71.2 mIU/mL) 4 Weeks (9.5-750 mIU/mL) 5 Weeks (217-7138 mIU/mL) 6 Weeks (158-52690 mIU/mL) 7 Weeks (3697-644691 mIU/mL) 8 Weeks (92218-932728 mIU/mL) 9 Weeks (96670-038200 mIU/mL) 10 Weeks (91494-356008 mIU/mL) 12 Weeks (11102-564176 mIU/mL) Referenced to 4th IS of [facility] Blood BLOOD SPECIMEN / Unknown Venipuncture / Unknown 01/09/2025 11:19 AM EDT 01/09/2025 11:19 AM EDT us Sushila Vee WINDOW CLERK.BIOANALYST LABORATORY Final R esult [facility] [address] [facility] [place] [address], [place] * OBSTETRIC ULTRASOUND WHI (01/09/2025 10:29 [...] Odalis Parikh M.D. us Augusto Tracy MD [facility] Final Result * OBSTETRIC ULTRASOUND WHI (12/30/2024 [...] free fluid visualized Performed By: Tatum Burton Read By: Augusto Tracy M.D. Kerry Weiner PA-C [facility] Final Result * FOLLICULAR US [facility] (11/25/2024 7:02 AM EDT) Anatomical Region Laterality [...] Performed By: Chary Acevedo; RDMS Read By: Augusto Tracy M.D. us Meagan Russ WINDOW CLERK.[facility] Final R esult * (ABNORMAL) ESTRADIOL-17B BLD (11/25/2024 6:47 AM EDT) Only the most recent of4 resultswithin the time period is included. Estradiol 17B 283(H) 8 - 37 pg/mL 11/25/2024 8:24 AM EDT [facility] Comment: This test is not [...] 3243 pg/mL Second trimester : 1561 to 35537 pg/mL Third trimester : 8285 to >15469 pg/mL Post-menopausal Estradiol reference range: < 41 pg/mL Reference: 1. Estradiol - E2 (Estradiol III) [package insert V 3.0 [place]an]. [facility], [place], [place], February 2016. Blood BLOOD SPECIMEN / Unknown Venipuncture / Unknown 11/25/2024 6:47 AM EDT 11/25/2024 6:47 AM EDT us Meagan Russ WINDOW CLERK.[facility] Final R esult [facility] [address] [facility] [place] [address], [place] * FOLLICULAR US [facility] (11/24/2024 7:30 AM [...] Acevedo; RDMS Read By: Tiffany Gonzalez MD us Meagan Russ WINDOW CLERK.[facility] Final R esult * FOLLICULAR US [facility] (11/21/2024 8:25 AM EDT) Anatomical Region Laterality [...] free fluid visualized Performed By: Chary Acevedo; ROBERT Read By: Lina Gilliam M.D. us Meagan Russ APRN.[facility] Final R esult * FOLLICULAR US I (11/14/2024 7:45 AM EST) Anatomical Region Laterality [...] RDMS Read By: Lina Gilliam M.D. Meagan Jeb [place].[facility] [employer] [facility] Final R esult * PAP TEST (01/21/2024 8:44 AM EDT) Case Report Gynecologic Cytology Report Case: [id number] Authorizing Provider: Pepe Pope, Collected: 01/21/2024 08:44 AM Ordering Location: OB/Gynecology Received: 01/21/2024 04:22 PM First Screen: Tamia Cardona Rescreen: Priya Galaviz Specimen: Pap Test, ThinPrep, Cervix 02/05/2024 12:58 PM EDT [facility] Specimen Adequacy Satisfactory for interpretation. No endocervical component 02/05/2024 12:58 PM EDT [facility] Interpretation Negative for intraepithelial lesion or malignancy. 02/05/2024 12:58 PM EDT [facility] at 1258 EDT Clinical History Routine Exam 2023 12:58 PM EDT [facility] LMP 08/16/2023 02/05/2024 12:58 PM EDT [facility] HPV Reflex Yes HPV 02/05/2024 12:58 PM EDT [facility] Pap Disclaimer The Pap Smear is a screening test for cervical cancer. False negative results occur with all screening tests, emphasizing the need for rescreening at recommended intervals, and clinical correlation. 02/05/2024 12:58 PM EDT [facility] PAP Arabic Translator Comment This specimen has been analyzed by the ThinPrep Imaging System, an automated imaging and review system, which assists the laboratory in evaluating cells on ThinPrep Pap tests. Following automated imaging, selected pacheco from every slide are reviewed by a masonry contractor. 02/05/2024 12:58 PM EDT [facility] Performing Lab Technical component, masonry contractor screening performed at [facility], [address] [place] [address] CLIA# [id number] Diagnostic interpretation performed at [facility], [address] [place] [address] CLIA# [id number] Line Erector: Thomas Cano M.D. 02/05/2024 12:58 PM EDT [facility] Sterile Fluid/Body Fluid CERVICAL / Unknown Non Blood / Unknown 01/21/2024 8:44 AM EDT 01/21/2024 4:22 PM EDT us Pepe Pope MD CYTOLOGY Final Resul t [facility] [address] [place] [address], [facility] [address] [facility] [address] [place] [address], from Last 3 Months or Most Recently Relevant to Health Maintenance Insurance [facility] PPO Care Teams Pelletising Extruder Operator Relationship Specialty Start Date End Date AlexDwayne [address] [place] [address] Referring Estimator Binding 10/04/20
--- OUTSIDE RECORDS SUMMARY | 2025-02-09 13:34 | XMS_ITS | Encounter Summary ---
Author Organization [facility] Address [address] [place] [address] Care Team Providers Care Die Stamper Name Role Phone Dwayne Johnson Unavailable Source Comments In the event this information is protected by the Federal Confidentiality of Alcohol and Drug AbusePatient Records regulations: The Federal rules restrict any use of the information to criminally investigate or prosecute any alcohol or drug abuse patient.[facility] Encounter Details Date Type Department Care Team (Late st Contact Info) Description 10/23/2024 Patient Msg Reproductive Endocrinology Infertility [address] [place], [place] [phone] Provider, Ccf Hcg trigger Social History Tobacco [...] is lower risk 7 08/19/2023 Data from: https://www.neighborhoodatlas.medicine.[facility].edu/. Last address [...] Info) Description 03/23/2025 10:00 AM EDT [facility] Reproductive Endocrinology Infertility [address] [place] [address] Santa No MD [address] [place], [place] [phone] infertility documented as of this encounter Visit Diagnoses Not on filedocumented in this encounter Care Teams Die Stamper Relationship Specialty Start Date End Date Dwayne Johnson [address] [place] [address] Referring Web Operations Lead 10/04/20 documented as of this encounter
--- OUTSIDE RECORDS SUMMARY | 2025-02-09 13:34 | XMS_ITS | Encounter Summary ---
Author Organization [facility] [employer] [facility] Address [id number] [address] [place] [address] Care Team Providers Care Water Service Supervisor Name Role Phone Jesus Berumen MD Primary Care Provider [phone] Encounter Details Date Type Department Care Team ([facility] st Contact Info) Description 03/01/2024 [facility]phone [facility] [address] [address] Lila Edmonds Social History Tobacco [...] EST Office Visit [facility] [address] [place] [phone] [place] [address] [place] [address] [phone] documented as of this encounter Visit Diagnoses Not on filedocumented in this encounter Additional Health Concerns Assessment Noted Time PHQ-9 Depression Total Score: 0 11/20/19 24 7:00 AM EST A Body Mass Index follow-up plan has been documented for the patient 10/31/2019 12:28 PM EST documented as of this encounter Care Teams Water Service Supervisor Relationship Specialty Start Date End Date Jesus Berumen MD [facility] [place] [address] PCP - General Internal Medicine 01/24/25 documented as of this encounter
--- OUTSIDE RECORDS SUMMARY | 2025-02-09 13:34 | XMS_ITS | Encounter Summary ---
Author Organization [facility] Address [address] [place] [address] Care Team Providers Care Mobile Device Developer Name Role Phone Dwayne Johnson Unavailable Source Comments In the event this information is protected by the Federal Confidentiality of Alcohol and Drug AbusePatient Records regulations: The Federal rules restrict any use of the information to criminally investigate or prosecute any alcohol or drug abuse patient.[facility] Encounter Details Date Type Department Care Team (Late st Contact Info) Description 10/21/2024 Patient Msg Reproductive Endocrinology Infertility [address] [place], [place] [phone] Provider, Ccf Plan 10/21 Social History Tobacco [...] EDT [facility] Reproductive Endocrinology Infertility [address] [place] [address] Santa No MD [address] [place], [place] [phone] infertility documented as of this encounter Visit Diagnoses Not on filedocumented in this encounter Care Teams Mobile Device Developer Relationship Specialty Start Date End Date Dwayne Johnson [address] [place] [address] Referring Cattle Dealer 10/04/20 documented as of this encounter
--- OUTSIDE RECORDS SUMMARY | 2025-02-09 13:34 | XMS_ITS | Clinical Summary ---
Author Organization [facility] Address [address] [place] [address] Care Team Providers Care Education Associate Name Role Phone David Gimenez MD Primary Care Provider [phone] Allergies Active Allergy Reactions Criticality Noted Date [...] Encounters Date Type Department Care Team Description 02/07/[address] [facility] [address] [place] [address] Wandy Holt MA 02/03/2025 Results Follow-Up [facility] [address] [place] [address] Elaina Silva LPN 02/02/2025 3:50 PM EDT Office Visit [facility] [address] [place] [address] Sandee Valdovinos PA Postoperative examination 02/02/2025 Clinisync Result Encounter [facility] External Department Unsolicited Sandee Valdovinos PA 02/02/2025 Bamboo flowsheet [facility] [address] [place] [address] Sandee Valdovinos PA 01/30/2025 Abstract [facility] [address] [address] Conor Cortes, DO 01/26/2025 Abstract [facility] OB [address] [place] [address] [place], [place] 01/24/2025 Abstract [facility] OB [address] [place] [address] Conor Cortes, DO 01/24/2025 Abstract [facility] OB [address] [place] [address] Conor Cortes, DO 01/24/2025 Results Follow-Up [facility] [address] [facility] [place] [address] Leonel Sales L, CNM 01/24/2025 Orders Only [facility] [address] [facility] [place] [address] Leonel Sales L, CNM 01/24/2025 Clinisync Result Encounter [facility] External Department Unsolicited Conor Cortes, DO 01/23/2025 Results Follow-Up [facility] [address] [facility] [place] [address] Leonel Sales L, CNM 01/23/2025 Clinisync Result Encounter [facility] External Department Unsolicited Leonel Sales L, CNM 01/23/2025 Clinisync Result Encounter [facility] External Department Unsolicited Ana Saleserie L, CNM 01/23/2025 Orders Only [facility] [address] [facility] [place] [address] Leonel Sales L, CNM Spontaneous 01/19/2025 Orders Only [facility] [address] [facility] [place] [address] Leonel Sales L, CNM Spontaneous 01/18/2025 Results Follow-Up [facility] [address] [facility] [place] [address] Leonel Sales, CNM 01/18/2025 Results Follow-Up [facility] [address] [facility] [place] [address] Leonel Sales, CNM 01/17/2025 Clinisync Result Encounter [facility] External Department Unsolicited Leonel Sales, CNM 01/17/2025 Orders Only [facility] [address] [facility] [place] [address] Leonel Sales, CNM Missed 01/16/2025 Orders Only [facility] [address] [facility] [place] [address] Leonel Sales, CNM Spontaneous 01/16/2025 Telephone [facility] [address] [facility] [place] [address] Leonel Sales, CNM 01/10/2025 4:30 PM EDT Initial [facility] [address] [facility] [place] [address] Leonel Sales, CNM 01/10/2025 Bamboo flowsheet [facility] [address] [facility] [place] [address] Leonel Sales, CNM from Last 3 Months Family History [...] Job Start Date Job End Date [facility] of disabilites Not on file Not on [...] AUTO DIFF Routine 02/02/2025 4:34 PM EDT [facility] PREG QUANT HCG Routine 01/24/2025 6: [...] Months Results * [facility] PREG QUANT HCG (02/02/2025 4:34 PM EDT) Only the most recent of3 resultswithin the time period is included. Pathologist [facility] HCG QUANTITATIVE 12 mIU/mL [facility] Comment: 5-50 0.2-1 WEEK 50-500 1-2 WEEKS 100-5,000 2-3 WEEKS 500-10,000 3-4 WEEKS 1,000-50,000 4-5 WEEKS 10,000-100,000 5-6 WEEKS 15,000-200,000 6-8 WEEKS 10,000-100,000 2-3 MONTHS 02/02/2025 4:34 PM EDT 02/02/2025 4:34 PM EDT Narrative [facility] - 02/02/2025 5:02 PM EDT us Conor Sophia DO CL[facility] Final Result [facility] * (ABNORMAL) ALL CBC WITH AUTO DIFF (02/02/2025 4:34 PM EDT) Only the most recent of2 resultswithin the time period is included. Pathologist [facility] TBH WBC 11.3(H) 4.0 - 11.0 10 3/uL TB[facility] TB RBC 4.42 4.20 - 5.40 10 6/uL TBH TBH HGB 13.6 12.0 - 16.0 g/dL TB TB HCT 39.5 36.0 - 48.0 % TBH TB MCV 89.4 81.0 - 99.0 fL TBH TBH MCH 30.8 26.7 - 34.0 pg TBH TBH MCHC 34.4 29.9 - 35.2 g/dL TB TB RDW 13.0 11.0 - 15.0 % TBH TBH PLT 326 150 - 450 10 3/uL TBH TBH MPV 8.4(L) 9.5 - 13.5 fL TBH [...] PM EDT Sandee MELLO [facility] Final Result Performing Organization Address City/[facility]/ZIP Co de Phone Number [facility] TB * ALL ABO/RH TYPE (01/24/2025 6:32 AM EDT) BLOOD TYPE O Positive [facility] 01/24/2025 6:32 AM EDT 01/24/2025 6:33 AM EDT Narrative [facility] - 01/24/2025 7:17 AM EDT The [facility] , [place] Conor Cortes DO CLIN[facility] Final Result [facility] TB * US OB TRANSVAGINAL (01/23/2025 4:13 PM EDT) Only the most recent of2 resultswithin the time period is included. Anatomical Region Laterality Modality Other 01/23/2025 4:13 PM EDT Narrative 01/23/2025 4:16 [place] [address] Ultrasound Report Signed Patient: TIN ARIZMENDI MR#: [id number] : 1985 Acct:[id number] Age/Sex: 39 / F ADM Date: 01/23/25 Loc: US Attending Dr: LEONEL SALES APRN, CNM Ordering Physician: LEONEL SALES APRN, CNM Date of Service: 01/23/25 Procedure(s): US OB transvaginal Accession Number(s): [id number] cc: DAVID GIMENEZ ; LEONEL SALES APRN, CNM [place] [address] Patient Name: TIN ARIZMENDI MRN: [id number] date: 1985 Sex: F Assigned Patient Location: US Current Patient Location: US Accession/Order Number: [id number] Exam Date: 01/23/2025 16:08 Report Date: 01/23/2025 [...] Jr., D.O. 01/23/2025 4:13 PM Dictation Location: [place] [address] Electronically authenticated by: [id number] Y Date: 01/23/2025 16:13 Dictated By: Jose A Orona M.D. Signed By: 01/23/25 1616 DD/ 12 TD/TT: Service Team Leader: Procedure Note Radiology, Radiologist, - 01/23/2025 [place] [address] Ultrasound Report Signed Patient: TIN ARIZMENDI LMR#: [id number] : 1985Acct:[id number] Age/Sex: 39 / FADM Date: 01/23/25 Loc: US Attending Dr: LEONEL SALES APRN, CNM Ordering Physician: LEONEL SALES APRN, CNM Date of Service: 01/23/25 Procedure(s): US OB transvaginal Accession Number(s): [id number] cc: DAVID GIMENEZ ; LEONEL SALES APRN, CNM The [place] [id number] Patient Name: TIN ARIZMENDI MRN: [facility]:[id number] date: 1985 Sex: F Assigned Patient Location: US Current Patient Location: US Accession/Order Number: [id number] Exam Date: 01/23/2025 16:08 Report Date: 01/23/2025 [...] Jr., D.O. 01/23/2025 4:13 PM Dictation Location: [place] [address] Electronically authenticated by: [id number] Y Date: 6:13 Dictated By: Jose A Orona M.D. Signed By:01/23/251615 DD/ 12 TD/TT: Service Team Leader: Leonel Sales CNM [facility] IMAGING Final Resu [...] or approved by the FDA or the oracle software engineer of the assay. Blood Venous blood specimen / Unknown 01/13/2025 1:08 PM EDT 01/13/2025 1:10 PM EDT Narrative Resulting Agency Comment Performing Organization Information Site ID: [id number] Name: [employer] [facility] Address: [address] [place] [address], [address] [place] [phone] Director: Lucio Vernon MD Leonel Sales CNM LAB BLOOD ORDERABLES Final R esult [facility] from Last 3 Months Insurance [employer] Care Teams Education Associate Relationship Specialty Start Date End Date David Gimenez MD PCP - General Family Medicine 10/16/23
--- OUTSIDE RECORDS SUMMARY | 2025-02-09 13:34 | XMS_ITS | Encounter Summary ---
Author Organization [facility] Address [address] [place] [address] Care Team Providers Care Wellhead Pumper Name Role Phone Dwayne Johnson Unavailable Source [...] Description 10/03/2024 Patient Msg Reproductive Endocrinology Infertility [address] [place] [id number] Provider, [facility] INFERTILITY SERVICES Social History Tobacco [...] is lower risk 7 08/19/2023 Data from: https://www.neighborhoodatlas.medicine.[facility].edu/. Last address used for calculation [address] [...] EDT [facility] Reproductive Endocrinology Infertility [address] [place] [address] Santa No MD [address] [place], [place] [phone] infertility documented as of this encounter Visit Diagnoses Not on filedocumented in this encounter Care Teams Wellhead Pumper Relationship Specialty Start Date End Date Dwayne Johnson [address] [place] [address] Referring Sporting Goods Salesperson 10/04/20 documented as of this encounter
--- OUTSIDE RECORDS SUMMARY | 2025-02-09 13:34 | XMS_ITS | Encounter Summary ---
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
--- OUTSIDE RECORDS SUMMARY | 2025-02-09 13:34 | XMS_ITS | Encounter Summary ---
Author Organization [facility] Address [address] [place] [address] Care Team Providers Care Linseed Cake Trimmer Name Role Phone Dwayne Johnson Unavailable Source Comments In the event this information is protected by the Federal Confidentiality of Alcohol and Drug AbusePatient Records regulations: The Federal rules restrict any use of the information to criminally investigate or prosecute any alcohol or drug abuse patient.[facility] Encounter Details Date Type Department Care Team (Late st Contact Info) Description 10/23/2024 Patient Msg Reproductive Endocrinology Infertility [address] [place], [place] [phone] Provider, [facility] Trigger Social History Tobacco Use [...] lower risk 7 08/19/2023 Data from: https://www.neighborhoodatlas.medicine.[facility].edu/. Last address used for calculation [...] Contact Info) Description 03/23/2025 10:00 AM EDT [facility] Reproductive Endocrinology Infertility [address] [place] [address] Santa No MD [address] [place], [place] [phone] infertility documented as of this encounter Visit Diagnoses Not on filedocumented in this encounter Care Teams Linseed Cake Trimmer Relationship Specialty Start Date End Date Dwayne Johnson [address] [place] [address] Referring Wood Heel Flap Rubber 10/04/20 documented as of this encounter
--- OUTSIDE RECORDS SUMMARY | 2025-02-09 13:34 | XMS_ITS | Encounter Summary ---
Author Organization [facility] Address [id number] [address] [place] [address] Care Team Providers Care Fruit Shipper Name Role Phone Jesus Berumen MD Primary Care Provider [phone] Encounter Details Date Type Department Care Team (Late st Contact Info) Description 01/24/2025 Orders Only [facility] [address] [place] [phone] External, Scanning Provider Social History Tobacco Use [...] EST Office Visit [facility] [address] [place] [phone] Jesus Berumen MD [address] [place] [address] documented as of this encounter Procedures Procedure [...] documented as of this encounter Care Teams Fruit Shipper Relationship Specialty Start Date End Date Jesus Berumen MD [address] [place] [phone] PCP - General Internal Medicine 01/24/25 documented as of this encounter
--- OUTSIDE RECORDS SUMMARY | 2025-02-09 13:34 | XMS_ITS | Encounter Summary ---
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
--- OUTSIDE RECORDS SUMMARY | 2025-02-09 13:34 | XMS_ITS | Encounter Summary ---
Author Organization [facility] Address [address] [place] [address] Care Team Providers Care Custom Tailor Apprentice Name Role Phone Jax Mckeon MD Primary Care Provider [phone] Encounter Details Date Type Department Care Team (Late st Contact Info) Description 01/18/2025 Results Follow-Up [facility] FNR OB [address] [place] [address] Meagan Sales, CNM [address] [place], [place] [phone] Social History Tobacco Use Types Packs/Day Years [...] on filedocumented in this encounter Care Teams Custom Tailor Apprentice Relationship Specialty Start Date End Date Jax Mckeon MD PCP - General Family Medicine 10/16/23 documented as of this encounter
[2025-02-09 14:22] LABS: HCG Quantitative 3 mIU/mL
== END 2025-02-09 13:29 | disposition home or self-care (01) ==
LOC: LAB 13:29
PROVIDERS: PCP Family Medicine; Visit Provider Physician Assistant
DX: O03.9 Complete or unspecified spontaneous abortion without complication (principal); Z98.890 Other specified postprocedural states; Z09 Encounter for follow-up examination after completed treatment for conditions other than malignant neoplasm
CPT/HCPCS: 36415; 84702